=== PATIENT | female | born 1995 | race Caucasian/White ===

== ENCOUNTER 2019-06-22 15:05 | Observation (INO) | payer OTHER, SELFPAY ==
--- NOTE | ~2019-06-22 | US_ITS ---
EXAMINATION: US OB limited DATE: 06/22/2019 16:32 INDICATION: Placental and amniotic fluid index assessment during second trimester TECHNIQUE: Real-time ultrasound of the pelvis was performed. The interpreting radiologist was not pre sent for the study. COMPARISON: None. FINDINGS: There is a single living fetus in vertex presentation. The placenta is posterior and 10.2 c m from the internal cervical os. cardiac activity and movement are noted. heart rat e is 150 beats per minute (bpm). The amniotic fluid index is 15.0 cm which is normal. IMPRESSION: 1. Single living fetus in vertex presentation. 2. Unremarkable placenta. 3. Normal amniotic fluid index. Reviewed, dictated and finalized at location A.
[2019-06-22 15:35] VITALS: BP 144/70; PULSE 107
[2019-06-22 15:46] VITALS: BP 111/55; PULSE 93
[2019-06-22 16:01] VITALS: BP 116/66; PULSE 95
--- NOTE | 2019-06-22 16:16 | PC.NURSE ---
pt transfer to US at 0226
--- NOTE | 2019-06-22 17:29 | OBADM ---
This patient, Deya Campbell, admitted to the OB room OB Post 113 for observation at 1505 Patient/family oriented to hospital policies and general routines including ID bracelet, bed and alarms, visiting hours, pain management, procedures, bathroom and other care routines, personal items, smoking policy, room service/diet, and visiting hours. Patient/Family are encouraged to report perceived risks to care and to ask questions if they do not understand what they are told or what they should do.
--- NOTE | 2019-07-20 20:21 | PM.OBTRLD ---
OB - Triage/Final Diagnosis Visit Information Date of evaluation: 06/22/19 Final Diagnosis (1) Vaginal bleeding in : Code(s): O46.90 - Antepartum hemorrhage, unspecified, unspecified trimester Status: Acute
== END 2019-06-22 17:20 | disposition home or self-care (01) ==
PROVIDERS: Admitting Provider Obstetrics & Gynecology; PCP Family Medicine; Visit Provider Obstetrics & Gynecology
DX: O26.852 Spotting complicating pregnancy, second trimester (principal); O60.02 Preterm labor without delivery, second trimester; Z3A.21 21 weeks gestation of pregnancy
CPT/HCPCS: 76815; G0378; G0379

== ENCOUNTER 2019-08-27 15:53 | Outpatient (CLI) | payer OTHER, SELFPAY ==
[2019-08-27 16:11] VITALS: BP 139/69; PULSE 101
[2019-08-27 16:17] VITALS: BP 125/65; PULSE 95
[2019-08-27 17:03] VITALS: PULSE 102; O2SAT 100
[2019-08-27 17:08] VITALS: PULSE 103; O2SAT 100
[2019-08-27 17:12] VITALS: BP 125/65; PULSE 95
[2019-08-27 17:13] VITALS: PULSE 101; O2SAT 100
== END 2019-08-27 17:15 | disposition home or self-care (01) ==
LOC: ANHOBPP 16:04 → ANHOBOP 17:23 → ANHOBPP 17:24
PROVIDERS: PCP Family Medicine; Visit Provider Obstetrics & Gynecology
DX: O42.90 Premature rupture of membranes, unspecified as to length of time between rupture and onset of labor, unspecified weeks of gestation (principal); Z3A.00 Weeks of gestation of pregnancy not specified
CPT/HCPCS: 59025; 84112; 99199

== ENCOUNTER 2019-09-12 12:40 | Outpatient (CLI) | payer OTHER, SELFPAY ==
[2019-09-12] VITALS (15 sets, daily range): BP systolic 92–138; BP diastolic 57–84; PULSE 94–117; O2SAT 98–100; BMI 60.2
[2019-09-12 13:38] LABS: Basophils Percent Auto 0.3 % (0.2-1.2); Eosinophils Absolute Auto 0.1 K/mm3 (0-0.3); Eosinophils Percent Auto 0.9 % (0-4.4); Hematocrit 30.9 % (37.0-47.0); Hemoglobin 10.3 g/dL (12.0-15.0); Immature Granulocyte Absolute 0.07 K/mm3 (0.00-0.031); Immature Granulocyte Percent A 0.7 % (0-0.5); Lymphocytes Absolute Auto 1.55 K/mm3 (0.9-3.2); Lymphocytes Percent Auto 15.7 % (18.3-44.2); Mean Corpuscular HGB Conc 33.3 g/dl (32-36); Mean Corpuscular Hemoglobin 28.4 pg (26-34); Mean Corpuscular Volume 85.1 fl (80-100); Mean Platelet Volume 9.7 fl (7.4-10.4); Monocytes Absolute Auto 0.6 K/mm3 (0.1-0.6); Monocytes Percent Auto 6.5 % (2.6-8.5); Neutrophils Absolute Auto 7.5 K/mm3 (1.3-6.7); Neutrophils Percent Auto 75.9 % (45.5-73.1); Platelet Count Result 290 k/mm3 (150-375); Red Blood Count 3.63 M/mm3 (4.2-5.4); Red Cell Distribution Width 12.8 % (11.5-14.5); White Blood Count 9.9 K/mm3 (4.5-10.0)
[2019-09-12 13:42] LABS: Add Urine Microscopic? YES; Appearance Urine Clear (Clear); Bacteria Urine Trace /hpf; Bilirubin Urine Negative (Negative); Blood Urine Negative (Negative); Color Urine Yellow (Yellow); Glucose Urine UA Negative (Negative); Ketones Urine Negative (Negative); Leukocyte Esterase Ur Negative LEU/UL (NEGATIVE); Mucus Urine Rare /lpf; Nitrate Urine Negative (Negative); Protein Urine 1+ mg/dL (Negative); RBC Urine 0-2 /hpf (0-2); Specific Grav Ur 1.024 (1.001-1.035); Squamous Epithelial Cell Urine Few /hpf (Few); Urobilinogen Urine Negative mg/dL (<2.0); WBC Urine 0-3 /hpf (0-3)
[2019-09-12 13:45] LABS: Creatinine Urine 126.3 mg/dL; Total Protein Urine Random 10 mg/dL
--- NOTE | 2019-09-12 14:01 | PC.NURSE ---
THIS WORK UP WAS DONE BY [place] FARAH RN, WILL LOG Desirae QUEZADA RNC OUT AND LOG IN MYSELF.
[2019-09-12 14:23] LABS: Alanine Aminotransferase 13 U/L (4-35); Albumin Level 3.7 g/dL (3.5-5.1); Alkaline Phosphatase 108 U/L (38-126); Aspartate Amino Transferase 20 U/L (14-36); Bilirubin,Total 0.2 mg/dL (0.2-1.3); Blood Urea Nitrogen 9 mg/dL (7-17); Calcium 9.3 mg/dL (8.4-10.2); Carbon Dioxide 21 mmol/L (22-30); Chloride 104 mmol/L (98-107); Estimated CRCL calculation 295 ml/min; Estimated Glomerular Filt Rate > 60; Glucose 99 mg/dL (65-105); Potassium 4.2 mmol/L (3.4-5.0); Sodium 133 mmol/L (137-145); Uric Acid 4.1 mg/dL (2.5-7.5)
--- NOTE | 2019-09-12 14:57 | PC.NURSE ---
DISCUSSED PLAN OF CARE WITH DR MULLER. LABS WNL. URINE RATIO WNL. BP'S WNL. WILL GIVE SOME FIORECET FOR H/A SHE HAS COMPLAINED HASN'T GONE AWAY FOR 2 DAYS WHEN SHE GETS HER TOOTH PAIN UNDER CONTROL.
== END 2019-09-12 15:11 | disposition home or self-care (01) ==
LOC: ANHOBOP 12:46 → ANHOBPP 12:49
PROVIDERS: PCP Family Medicine; Visit Provider Obstetrics & Gynecology
DX: O13.9 Gestational [pregnancy-induced] hypertension without significant proteinuria, unspecified trimester (principal); Z3A.00 Weeks of gestation of pregnancy not specified
CPT/HCPCS: 36415; 59025; 80053; 81001; 82570; 84156; 84550; 85025; 99199; A9270

== ENCOUNTER 2019-09-19 16:30 | Outpatient (CLI) | payer OTHER, SELFPAY ==
[2019-09-19 16:47] VITALS: BP 140/82; PULSE 107
[2019-09-19 17:04] LABS: Basophils Percent Auto 0.3 % (0.2-1.2); Eosinophils Absolute Auto 0.1 K/mm3 (0-0.3); Eosinophils Percent Auto 1.1 % (0-4.4); Hemoglobin 10.3 g/dL (12.0-15.0); Immature Granulocyte Absolute 0.04 K/mm3 (0.00-0.031); Immature Granulocyte Percent A 0.4 % (0-0.5); Lymphocytes Absolute Auto 1.77 K/mm3 (0.9-3.2); Lymphocytes Percent Auto 19.2 % (18.3-44.2); Mean Corpuscular HGB Conc 33.2 g/dl (32-36); Mean Corpuscular Volume 84.2 fl (80-100); Mean Platelet Volume 9.4 fl (7.4-10.4); Monocytes Absolute Auto 0.5 K/mm3 (0.1-0.6); Monocytes Percent Auto 5.4 % (2.6-8.5); Neutrophils Absolute Auto 6.8 K/mm3 (1.3-6.7); Neutrophils Percent Auto 73.6 % (45.5-73.1); Platelet Count Result 286 k/mm3 (150-375); Red Blood Count 3.68 M/mm3 (4.2-5.4); Red Cell Distribution Width 12.8 % (11.5-14.5); White Blood Count 9.2 K/mm3 (4.5-10.0)
[2019-09-19 17:17] LABS: Alanine Aminotransferase 12 U/L (4-35); Albumin Level 3.6 g/dL (3.5-5.1); Alkaline Phosphatase 110 U/L (38-126); Aspartate Amino Transferase 18 U/L (14-36); Bilirubin,Total 0.1 mg/dL (0.2-1.3); Blood Urea Nitrogen 9 mg/dL (7-17); Carbon Dioxide 23 mmol/L (22-30); Chloride 105 mmol/L (98-107); Estimated Glomerular Filt Rate > 60; Glucose 120 mg/dL (65-105); Potassium 3.8 mmol/L (3.4-5.0); Sodium 135 mmol/L (137-145); Uric Acid 4.4 mg/dL (2.5-7.5)
[2019-09-19 17:47] VITALS: BP 126/77; PULSE 100
== END 2019-09-19 18:00 | disposition home or self-care (01) ==
LOC: ANHOBOP 16:34 → ANHOBPP 16:37
PROVIDERS: Advanced Practice Midwife; PCP Family Medicine; Visit Provider Obstetrics & Gynecology
DX: O13.9 Gestational [pregnancy-induced] hypertension without significant proteinuria, unspecified trimester (principal); Z3A.00 Weeks of gestation of pregnancy not specified
CPT/HCPCS: 36415; 59025; 80053; 84550; 85025; 99199

== ENCOUNTER 2019-10-04 16:11 | Outpatient (RCR) | payer OTHER, SELFPAY ==
[2019-09-27] MEDS: BETAMETHASONE SOD PHOS/ACETATE 30 MG/5 ML VIAL 12 MG IM (10:37)
[2019-09-28] MEDS: BETAMETHASONE SOD PHOS/ACETATE 30 MG/5 ML VIAL 12 MG IM (10:06)
== END 2019-10-21 07:57 | disposition home or self-care (01) ==
LOC: ANHOBOP 16:11
PROVIDERS: Family Provider Obstetrics & Gynecology; PCP Family Medicine; Visit Provider Obstetrics & Gynecology
DX: O36.8990 Maternal care for other specified fetal problems, unspecified trimester, not applicable or unspecified (principal); Z3A.00 Weeks of gestation of pregnancy not specified
CPT/HCPCS: 59025; 96372; J0702

== ENCOUNTER 2019-10-18 06:25 | Inpatient (IN) | payer OTHER, SELFPAY ==
[2019-10-14 15:40] VITALS: BMI 62.4
[2019-10-18] VITALS (130 sets, daily range): BP systolic 116–165; BP diastolic 51–129; PULSE 85–122; RESP 18–20; TEMP 36.6–36.9; O2SAT 95–100
[2019-10-18 07:06] LABS: Basophils Percent Auto 0.3 % (0.2-1.2); Eosinophils Absolute Auto 0.2 K/mm3 (0-0.3); Eosinophils Percent Auto 1.8 % (0-4.4); Hematocrit 31.4 % (37.0-47.0); Hemoglobin 10.3 g/dL (12.0-15.0); Immature Granulocyte Absolute 0.05 K/mm3 (0.00-0.031); Immature Granulocyte Percent A 0.5 % (0-0.5); Lymphocytes Absolute Auto 1.86 K/mm3 (0.9-3.2); Lymphocytes Percent Auto 20.2 % (18.3-44.2); Mean Corpuscular HGB Conc 32.8 g/dl (32-36); Mean Corpuscular Hemoglobin 27.5 pg (26-34); Mean Corpuscular Volume 83.7 fl (80-100); Monocytes Absolute Auto 0.6 K/mm3 (0.1-0.6); Monocytes Percent Auto 6.9 % (2.6-8.5); Neutrophils Absolute Auto 6.5 K/mm3 (1.3-6.7); Neutrophils Percent Auto 70.3 % (45.5-73.1); Platelet Count Result 305 k/mm3 (150-375); Red Blood Count 3.75 M/mm3 (4.2-5.4); Red Cell Distribution Width 13.2 % (11.5-14.5); White Blood Count 9.2 K/mm3 (4.5-10.0)
[2019-10-18] MEDS: LACTATED RINGERS 1,000 ML 125 ML IV CONT ×3 (07:17→09:52)
[2019-10-18 07:18] LABS: Alanine Aminotransferase 13 U/L (4-35); Albumin Level 3.5 g/dL (3.5-5.1); Alkaline Phosphatase 151 U/L (38-126); Aspartate Amino Transferase 18 U/L (14-36); Bilirubin,Total 0.3 mg/dL (0.2-1.3); Blood Urea Nitrogen 10 mg/dL (7-17); Calcium 9.2 mg/dL (8.4-10.2); Carbon Dioxide 21 mmol/L (22-30); Chloride 104 mmol/L (98-107); Estimated CRCL calculation 237 ml/min; Estimated Glomerular Filt Rate > 60; Glucose 116 mg/dL (65-105); Potassium 4.2 mmol/L (3.4-5.0); Sodium 132 mmol/L (137-145); Uric Acid 4.9 mg/dL (2.5-7.5)
--- NOTE | 2019-10-18 07:25 | WPDHPUPDATE1 ---
History and Physical Update Update Date/Time: 10/18/19 07:25 Term Multip with SROM aat term History and Physical has been reviewed, including an updated exam of the patient. There are NO changes in the patient's condition. Risks, benefits, and alternatives have been discussed and questions answered. Patient agrees to proceed with procedure.
[2019-10-18] MEDS: OXYTOCIN 30 UNITS/NS 500 ML 30 UNITS/500 ML BAG 999 UNITS IV CONT (14:08)
--- NOTE | 2019-10-18 14:11 | PM.OBPRVD ---
OB - Delivery Note Procedure Delivery date: 10/18/19 Intrapartal events: None Induction method: per pitocin protocol Delivery augmentation: pitocin Delivery monitor: external FHT and internal uterine Route of delivery: Laceration description: None Specimen: Yes Anesthesia type: Epidural Disposition: other () Complications: anterior shoulder not easily delivered. barrett and suprapubic pressure anterior shoulder released and fetus delivered <30 sec Baby Date of : 10/18/19 Time of : 14:04 Weeks of gestation at delivery: 37 gender: Female Weight (pounds): 8 Weight (ounces): 6 presentation: vertex position: Left Occiput Anterior cord vessel description: 3 Vessels and Clamped/Cut
--- NOTE | 2019-10-18 17:18 | PC.NURSE ---
Patient transferred to post room #282 per wheelchair from labor and delivery. Support person present. Oriented to unit, room, information board, rooming in, admission packet and security measures. Patient verbalizes understanding.
[2019-10-18] MEDS: IBUPROFEN 600 MG TABLET PO (20:16)
[2019-10-18] MEDS: ACETAMINOPHEN 325 MG TABLET 650 MG PO (22:38)
[2019-10-18] MEDS: ZOLPIDEM TARTRATE 5 MG TABLET PO (22:39)
[2019-10-19] MEDS: IBUPROFEN 600 MG TABLET PO ×3 (05:10→22:34)
[2019-10-19 06:33] LABS: Hematocrit 30.1 % (37.0-47.0); Hemoglobin 9.7 g/dL (12.0-15.0)
--- NOTE | 2019-10-19 07:00 | PC.NURSE ---
PT introductions made and plan of care discussed per post , pain management, bottle feeding, daily care activities. PT verbalized understanding of such care.
[2019-10-19 10:30] VITALS: BP 129/75; PULSE 86; RESP 18; TEMP 36.2; O2SAT 100
--- NOTE | 2019-10-19 10:38 | P.PNOB_ITS ---
OB - PN: Subj Subjective Date/time seen: 10/19/19 10:38 Patient comments: no complaints, pain well controlled and other (Lochia similar to menses) [place] baby status: doing well OB - PN: Obj Data Labs CBC & Chem 7: 10/19/19 05:53 10/18/19 06:59 Labs: Laboratory Results - last 24 hr 10/19/19 05:53 Hgb 9.7 L Hct 30.1 L OB - PN A/P Plan day: 1 (s/p vaginal delivery, doing well) Plan: routine care Time Spent With Patient Time: Total time spent is greater than 50% in coordination of care (as documented) at patient's floor/unit and/or counseling patient: Exam Const: General: no acute distress GI: Inspection: other (Fundus firm and nontender at umbilicus) GI Palp: Yes Soft to palpation and No Tenderness to palpation present (GI) Extrem: General: no edema
[2019-10-19] MEDS: DOCUSATE SODIUM 100 MG CAPSULE PO ×2 (10:54→16:18)
[2019-10-19] MEDS: POLYSACCHARIDE IRON COMPLEX 150 MG CAPSULE PO ×2 (10:54→16:18)
[2019-10-19] MEDS: ACETAMINOPHEN 325 MG TABLET 650 MG PO ×2 (10:54→16:18)
[2019-10-19] MEDS: TETANUS,DIPHTHERIA,AC PERTUSSIS ADULT (0.5 ML) BOOSTRIX IM (10:55)
--- NOTE | 2019-10-19 11:40 | WPDANLDPN2 ---
Anes-Prog Note L&D Date/Time: 10/19/19 11:40 Comfortable throughout: labor and delivery Neuraxial method: epidural Epidural/Spinal procedure site: clean & non-tender Neuro status: Neuro function grossly intact. Cardiovascular status: normal Respiratory status: normal Airway patency: baseline Mental status: baseline Post-Op hydration status: normal Vital Signs: Last Vital Signs Temp 36.6 C 10/18/19 21:30 Pulse 96 10/18/19 21:30 Resp 18 10/18/19 21:30 BP 142/96 H 10/18/19 21:30 Pulse Ox 100 10/18/19 21:30 I/O: Intake & Output 10/18/19 10/19/19 10/19/19 23:59 07:59 15:59 Intake Total 1000 Balance 1000 Post-procedural complaints: none Patient feedback: Patient satisfied with anesthetic care.
--- NOTE | 2019-10-19 14:46 | PCCCNOTE ---
Care Coordination. Pt. referred to for second baby due to SIDS. Per nursing staff, when pt. or FOB spoke of other 's stories were conflicting about if it was SIDS or what happened. FOB reportedly has untreated bipolar. Director Of Marketing [employer] wanted to check with DCFS to make sure no open cases. Pt. reports planning to return home with FOB, Francis Campbell. She reports having necessary baby care items and denies needs for resources. She didn't elaborate when asked about infant passing nor did she want counseling or other resource info. She doesn't plan to have WIC services. Spoke with Susan Coats at [facility] Hotline (Intake ID#[id number]) who reports after reviewing situation with supervisor printing and stamping, that they will take report on situation. She reports previous case was unfounded, but with new baby could be risks, so they'll come out. Notified nursing staff that DCFS will be out to see pt. Pt. also has 7 year old boy at home. Will follow.
--- NOTE | 2019-10-19 19:12 | PC.NURSE ---
DCFS here to see patient.
[2019-10-19 22:15] VITALS: BP 137/73; PULSE 83; RESP 16; TEMP 36.5; O2SAT 100
--- NOTE | 2019-10-20 08:00 | PC.NURSE ---
PT introductions made and plan of care discussed per post , pain management, breast/bottle feeding, photo therapy, keeping eye patches on and not changing diapers under bili lights, daily care activities. PT verbalized understanding of such care
--- NOTE | 2019-10-20 09:52 | P.PNOB_ITS ---
OB - PN: Subj Subjective Date/time seen: 10/20/19 09:52 Patient comments: no complaints, pain well controlled and other (Lochia similar to menses) [place] baby status: doing well OB - PN: Obj Data Labs CBC & Chem 7: 10/19/19 05:53 10/18/19 06:59 OB - PN A/P Plan day: 2 (s/p vaginal delivery, doing well) Plan: routine care, discharge home and other (Follow up in office in 4 weeks) Time Spent With Patient Time: Total time spent is greater than 50% in coordination of care (as documented) at patient's floor/unit and/or counseling patient: Exam Const: General: no acute distress GI: Inspection: other (Fundus firm and nontender below umbilicus) GI Palp: Yes Soft to palpation and No Tenderness to palpation present (GI) Extrem: General: no edema
[2019-10-20 10:30] VITALS: BP 142/71; PULSE 96; RESP 18; TEMP 36.8; O2SAT 98
[2019-10-20] MEDS: DOCUSATE SODIUM 100 MG CAPSULE PO ×2 (12:04→17:30)
[2019-10-20] MEDS: IBUPROFEN 600 MG TABLET PO ×2 (12:05→17:31)
[2019-10-20] MEDS: POLYSACCHARIDE IRON COMPLEX 150 MG CAPSULE PO ×2 (12:05→17:30)
--- NOTE | 2019-10-20 17:30 | PC.NURSE ---
Breast pump provided due to [ineffective feedings and gestational age 37weeks]. Instructions given on breast pump care and usage, pumping schedule, nipple care, and collection and storage of breast milk. Encouraged [id number], breast massage and manual expression to stimulate supply. Pumping log provided and reviewed. Assessed patient for correct flange size, placement and draw. Patient verbalizes and demonstrates understanding of instructions.
[2019-10-21 08:48] LABS: Rapid Plasma Reagin Non-Reactive (NonReactive)
[2019-10-23 09:34] VITALS: BP 134/70; PULSE 75; RESP 20; TEMP 36.6
--- NOTE | 2019-10-24 21:50 | PM.OBDSVD ---
DS: Admitting Diagnosis Admitting Diagnosis Admitting Diagnosis: Encounter for supervision of normal , unspecified, third trimester OB - DS: Summary OB Procedures : None OB Procedures Intrapartum: Spontaneous Vag Delivery OB Procedures: : None Time Spent with Patient Time attestation: Total time spent providing and/or coordinating discharge services: DS: Data Data Completed and Pending Completed studies during hospitalization: Pending at discharge 10/18/19 17:11 Surgical [PTH] Routine Discharge Plan Discharge Consulting providers: Iza Cerda Discharging Clinician: Tawanna To Patient Disposition: Home, Self-Care Activity: pelvic rest and other - see discharge instructions Diet: regular Discharge Instructions: Education: Mom and Baby Guide Given to: Deya Follow-Up: Call your delivering provider's office for an appointment to be seen in: 6 weeks [facility]. Appointment Date/Time: October 22 @ 11:00am What to expect at your follow-up visit: assessment Call [phone] if you are unable to keep your appointment time. BREAST CARE: 1. Wear a snug supportive bra. 2. For engorgement discomfort: Breast Feeding: A. Apply warm moist washcloths B. Express milk as needed to relieve engorgement C. Wear loose clothing Bottle Feeding: A. May apply ice packs 3. For sore nipples: A. Identify correct latch-on B. Apply warm moist washcloths before and after nursing C. Air dry nipples after nursing D. May apply Lansinoh cream to nipples EPISIOTOMY/PERINEAL CARE: 1. Until bleeding stops, use your prashanth bottle after urinating 2. Change your pad frequently throughout the day 3. You may take sitz baths several times a day (fill your bathtub with warm water and soak for 20 minutes.) Do NOT bathe in the water 4. No tub baths until seen by your physician - You may shower ACTIVITY: 1. Rest as much as possible. 2. Do not exercise or lift anything heavier than your baby (such as laundry or other children.) 3. Avoid stairs or driving as much as possible. 4. Do not put anything into the vagina. No douching, tampons, or sexual activity until seen by physician. NOTIFY PHYSICIAN IF YOU HAVE ANY QUESTIONS OR IF ANY OF THE FOLLOWING SYMPTOMS OCCUR: 1. If your episiotomy becomes red, swollen, or more painful than what you have experienced in the hospital. 2. If your vaginal bleeding becomes foul smelling. 3. If your vaginal bleeding becomes more heavy than a period or if your bleeding changes from pink to bright red. However, you may pass an occasional walnut-sized clot once or twice for the first week . 4. If you experience a sharp, shooting pain in you calves. 5. If you discover a hard, reddened area on your breast or if you experience flu-like symptoms. DIET: 1. Eat regular, well-balanced meals. 2. Drink plenty of fluids daily. If , drink to thirst. Patient Instructions: Antibiotic Form, How to Stop Smoking (DC) Stand Alone Forms: General Discharge Information Follow-up/Referrals: Madhu Maldonado MD [Physician] - Discharge Medications: New ibuprofen 600 mg Tablet 600 mg PO Q6H PRN (Reason: Cramping) Qty: 60 RF: 0 Date of admission: 10/18/19 06:25 Primary Care Provider: Marialuisa,Jonelle Robbins Admitting Provider: Madhu Maldonado Discharge Date/Time: 10/20/19 21:45 Attending physician on admission: Tawanna To
== END 2019-10-20 21:45 | disposition home or self-care (01) | DRG 560 ==
LOC: ANHOB2 10-20 21:21 → ANHLDR 10-23 08:40 → ANHOB2 10-23 08:40
PROVIDERS: Advanced Practice Midwife; Admitting Provider Obstetrics & Gynecology; PCP Family Medicine; Visit Provider Obstetrics & Gynecology
DX: O36.8330 Maternal care for abnormalities of the fetal heart rate or rhythm, third trimester, not applicable or unspecified (principal); Z37.0 Single live birth; Z3A.37 37 weeks gestation of pregnancy
CPT/HCPCS: 36415; 80053; 84550; 85014; 85018; 85025; 86592; 86850; 86900; 86901; 88307; 90715; A9270; J2590; J2795; J7120

== ENCOUNTER 2020-11-27 17:04 | Outpatient (CLI) | payer OTHER, SELFPAY ==
--- NOTE | ~2020-11-27 | US_ITS ---
US right upper quadrant DATE: 11/27/2020 17:34 INDICATION: Right upper quadrant abdominal pain for 2 months TECHNIQUE: Real-time imaging and Doppler analysis of liver, pancreas, gallbladder areas COMPARISON: 12/18/2018 CT abdomen pelvis FINDINGS: There is hepatic steatosis. There is suboptimal penetration of the hepatic parenchyma. Mu ltiple hepatic masses are noted, measuring up to [address] or MR examination would be helpful for mor e definitive evaluation. Normal hepatopedal portal venous flow direction. No gallstones are evident. Normal common bile duct caliber of 5.2 mm. IMPRESSION: Multiple hepatic masses; CT or MR abdomen is recommended Hepatic steatosis Reviewed, dictated and finalized at Location A. Reviewed, dictated and finalized at location A.
== END 2020-11-27 17:05 | disposition home or self-care (01) ==
LOC: ANHIMG 17:05
PROVIDERS: PCP Nurse Practitioner Family; Visit Provider Nurse Practitioner Family
DX: R93.89 Abnormal findings on diagnostic imaging of other specified body structures (principal); R16.0 Hepatomegaly, not elsewhere classified; K76.0 Fatty (change of) liver, not elsewhere classified
CPT/HCPCS: 76705

== ENCOUNTER → 2021-04-09 03:30 | Outpatient (CLI) | payer OTHER, SELFPAY ==
[2021-04-09 22:11] LABS: SARS-CoV-2 RNA PCR Negative
== END ==
PROVIDERS: PCP Nurse Practitioner Family; Visit Provider Family Medicine
DX: R07.0 Pain in throat (principal); Z20.822 Contact with and (suspected) exposure to COVID-19
CPT/HCPCS: C9803; U0003; U0005

== ENCOUNTER 2022-03-22 17:08 | Outpatient (CLI) | payer OTHER, SELFPAY ==
--- NOTE | ~2022-03-22 | US_ITS ---
EXAMINATION: US retroperitoneal duplex ltd DATE: 03/22/2022 18:14 INDICATION: Secondary hypertension TECHNIQUE: Multiple grayscale, color Doppler, and pulsed Doppler images of the kidneys and renal josé sherri were obtained. COMPARISON: CT dated diagnosis 12/18/18 FINDINGS: Right kidney measures 12.4 x 6.8 x 7.2 cm with no hydronephrosis. The right renal artery peak systoli c velocity is 195 cm/s in the proximal segment, 188 cm/s in the mid segment, and 214 cm/s in the dist al segment. The left kidney measures 13.0 x 6.1 x 7.2 cm with no hydronephrosis. The left renal arter y peak systolic velocity is 204 cm/s in the proximal segment, 194 cm/s in the mid segment, and 193 cm /s in the distal segment. IMPRESSION: 1. Elevated peak systolic velocities in the bilateral renal arteries consistent with a >50-60% steno sis. Reviewed, dictated and finalized at location A. SITE ENGINEER IMPRESSION: 1. Elevated peak systolic velocities in the bilateral renal arteries consisten t with a >50-60% stenosis.
--- NOTE | ~2022-03-22 | US_ITS ---
US pelvic complete w TV DATE: 03/22/2022 17:51 INDICATION: Increased BMI. Question of polycystic ovary syndrome TECHNIQUE: Real-time imaging via transabdominal and transvaginal approaches COMPARISON: None FINDINGS: The uterus measures approximately 9 cm height, 4.5 cm AP dimension. The central endometrial echo complex measures approximately 4 mm AP dimension. An IUD is noted within the endometrial cavity in expected position. The right ovary measures 5.5 x 4 x 4.1 cm. There is a 4 cm complicated cyst within the right ovary me asuring The left ovary measures 2.8 x 1.7 x 3.2 cm. There is vascular flow to the ovaries. Otherwise no pelvic mass lesion or abnormal free pelvic fluid collection. IMPRESSION: IUD within uterus 4 cm complicated right ovarian cyst Reviewed, dictated and finalized at Location A. Reviewed, dictated and finalized at location A. R PIPE INSTALLER
== END 2022-03-22 17:09 | disposition home or self-care (01) ==
LOC: ANHIMG 17:11
PROVIDERS: PCP Family Medicine
DX: I15.9 Secondary hypertension, unspecified (principal); N83.201 Unspecified ovarian cyst, right side; Z97.5 Presence of (intrauterine) contraceptive device
CPT/HCPCS: 76830; 76856; 93976

== ENCOUNTER 2022-03-28 16:45 | Emergency (ER) | payer OTHER, SELFPAY ==
[2022-03-28 16:52] VITALS: BP 145/68; PULSE 94; RESP 20; TEMP 36.7; O2SAT 100
--- NOTE | 2022-03-28 18:04 | ED.URI ---
HPI - URI/Sore Throat General Chief Complaint: Upper Respiratory Infection Stated Complaint: cold flu short of breath Time Seen by Provider: 03/28/22 18:04 Source: patient, family, RN notes reviewed and old records reviewed Mode of arrival: ambulatory Limitations: no limitations History of Present Illness HPI Narrative: 26 year old female presents to [facility] with complaints of chest hurting to breath with cough, bilateral ear pain and some shortness of breath, and hoarseness for the past 2 days.Patient denies any known fevers, chills or sweats, denies any body aches or headaches. Patient has been taking NyQuil cold and flu and also some Ibuprofen for her symptoms. Patient has even nonlabored respirations with no tachypnea or accessory muscle use SAO2 100 % on room air. MD elicited complaint: cough and other (shortness of breathe, hoarseness, ear pain) Onset (ago): day(s) (2) Able to tolerate fluids by mouth: Yes Treatments prior to arrival: ibuprofen and cold medicine Related Data Home Medications Medication Instructions Recorded Confirmed amlodipine 10 mg tablet 10 mg PO DAILY 03/28/22 03/28/22 escitalopram oxalate 10 mg tablet 10 mg PO DAILY 03/28/22 03/28/22 gabapentin 100 mg capsule 100 mg PO TID 03/28/22 03/28/22 losartan 100 mg tablet 100 mg PO DAILY 03/28/22 03/28/22 spironolactone 25 mg tablet 25 mg PO DAILY 03/28/22 03/28/22 zonisamide 25 mg capsule 25 mg PO DAILY 03/28/22 03/28/22 Allergies Allergy/AdvReac Type Severity Reaction Status Date / Time cephalexin Allergy Mild Rash Verified 10/18/19 06:54 labetalol Allergy Unknown Swelling Verified 09/01/18 10:48 levofloxacin Allergy Hives Verified 03/28/22 17:14 nifedipine Allergy Rash Verified 03/28/22 17:15 Review of Systems Review of Systems: CONSTITUTIONAL: Denies malaise, chills, sweats, or fever. EYES: Denies visual changes, redness, or discharge. ENT: Reports rhinorrhea, congestion, sinus pain, bilateral otalgia no sore throat.hoarseness reported CARDIOVASCULAR: Denies chest pain, palpitations, or edema. RESPIRATORY: Reports cough.?Reports dyspnea. GASTROINTESTINAL: Denies abdominal pain, nausea, vomiting, diarrhea SKIN: Denies rash or itching. MUSCULOSKELETAL: Denies myalgia. NEUROLOGIC: Denies headache. All systems reviewed & are unremarkable except as noted in HPI and below PMFSH Past Medical History Medical History (Updated 04/05/22 @ 08:36 by Nicki Ford NP) Diverticulitis Elevated cholesterol GERD (gastroesophageal reflux disease) Hair loss Herniated disc Hypertension Surgical History Surgical History (Updated 04/05/22 @ 08:28 by Nicki Ford NP) H/O eye surgery History of placement of ear tubes History of tonsillectomy Family History Family History (Updated 10/14/19 @ 15:46 by Yadira Puri RN) Father Heart disease COPD (chronic obstructive pulmonary disease) Asthma Diabetes mellitus Colon cancer Hypertension Mother COPD (chronic obstructive pulmonary disease) Skin cancer Fibromyalgia Hypertension Son Antibody deficiency syndrome Social History Social History Smoking status: Never smoker Second hand tobacco smoke exposure: Yes Substance use: never Gender identity (if verbalized by the patient): Female Sexual Orientation (if Verbalized by the Patient): Straight or Heterosexual Spiritual care concerns: No Comments At time of signature, agree with nursing past medical, surgical, social and family history. There is no relevant family history pertinent to the presenting complaint Exam Narrative: GENERAL: Well-appearing, well-nourished, and in no acute distress. HEAD: Normocephalic EYES: PERRLA, conjunctivae clear ENT: Nares clear, turbinates edematous and erythematous, clear discharge. Mucous membranes moist. TM pearly cole with dull light reflex bilaterally; no tragal tenderness. Oropharynx erythematous without lesions. Tonsils not present and without ex
== END 2022-03-28 18:30 | disposition home or self-care (01) ==
PROVIDERS: Emergency Provider Registered Nurse; PCP Nurse Practitioner Family
DX: J06.9 Acute upper respiratory infection, unspecified (principal); E78.00 Pure hypercholesterolemia, unspecified; I10 Essential (primary) hypertension; K21.9 Gastro-esophageal reflux disease without esophagitis
CPT/HCPCS: 99213; G0463

== ENCOUNTER 2022-05-25 14:54 | Outpatient (CLI) | payer OTHER, SELFPAY ==
--- NOTE | ~2022-05-25 | MR_ITS ---
EXAMINATION: MR brain/brain stem wo/w con DATE: 05/25/2022 15:38 INDICATION: Unspecified papilledema. TECHNIQUE: Magnetic resonance imaging (MRI) of the brain and brainstem was performed without and with 20 mL Multihance intravenous contrast. Sequences included sagittal and axial T1-weighted SE, axial d iffusion-weighted FS SE, axial T2*-weighted GRE, axial 3D SWAN, axial T2-weighted FLAIR, and axial T2 -weighted FSE. Postcontrast axial and coronal T1-weighted SE was obtained. Apparent diffusion coeffic ient (ADC) maps were created. COMPARISON: None. FINDINGS: There are no areas of restricted diffusion to suggest acute infarction. No intracranial hemorrhage or abnormal intracranial mass lesion. There are no intraparenchymal signal abnormalities seen on the ot her pulse sequences. The ventricles are symmetric and normal in size. The basal cisterns are patent. There are no abnormal extra-axial fluid collections. Flow voids are seen in the cerebral arteries on the T2-weighted sequences consistent with their expected patency. Changes of left intraocular lens re placement. Mild mucosal thickening the bilateral ethmoid sinuses. Visualized orbits and soft tissues are unremarkable. There are no areas of abnormal enhancement on the post contrast images. IMPRESSION: 1. Normal brain. No acute intracranial process or abnormally enhancing lesions. Reviewed, dictated and finalized at location [facility]
== END 2022-05-25 14:55 | disposition home or self-care (01) ==
LOC: ANHIMG 14:55
PROVIDERS: PCP Family Medicine; Visit Provider Specialist
DX: H47.10 Unspecified papilledema (principal)
CPT/HCPCS: 70553; A9577

== ENCOUNTER 2022-11-29 12:35 | Emergency (ER) | payer OTHER, SELFPAY ==
[2022-11-29 12:45] VITALS: BP 133/71; PULSE 70; RESP 16; TEMP 36.2; O2SAT 100
[2022-11-29 12:54] VITALS: BP 133/71; PULSE 70; RESP 16; TEMP 36.2; O2SAT 100
--- NOTE | 2022-11-29 13:09 | ED.URI ---
HPI - URI/Sore Throat General Chief Complaint: Upper Respiratory Infection Stated Complaint: sore throat/cough/diarrhea History of Present Illness HPI Narrative: Pt is a 27 y/o female, presents to with 4 day hx of rhinorrhea, cough, congestion and wheezing. she denies fevers or chills. her smaller child recently had croup and she feels she may have the same virus. She is taking OTC cough cold meds with minimal relief. She denies any other associated symptoms or modifying factors. She denies Related Data Home Medications Medication Instructions Recorded Confirmed amlodipine 10 mg tablet 10 mg PO DAILY 03/28/22 03/28/22 escitalopram oxalate 10 mg tablet 10 mg PO DAILY 03/28/22 03/28/22 gabapentin 100 mg capsule 100 mg PO TID 03/28/22 03/28/22 losartan 100 mg tablet 100 mg PO DAILY 03/28/22 03/28/22 spironolactone 25 mg tablet 25 mg PO DAILY 03/28/22 03/28/22 zonisamide 25 mg capsule 25 mg PO DAILY 03/28/22 03/28/22 aspirin 81 mg chewable tablet 11/29/22 dulaglutide 1.5 mg/0.5 mL mg subcut 11/29/22 subcutaneous pen [facility]) duloxetine 20 mg capsule,delayed mg PO 11/29/22 release furosemide 40 mg tablet mg 11/29/22 metoprolol tartrate 50 mg tablet mg 11/29/22 rimegepant 75 mg disintegrating mg 11/29/22 tablet (Nurtec ODT) Allergies Allergy/AdvReac Type Severity Reaction Status Date / Time cephalexin Allergy Mild Rash Verified 10/18/19 06:54 labetalol Allergy Unknown Swelling Verified 09/01/18 10:48 levofloxacin Allergy Hives Verified 03/28/22 17:14 nifedipine Allergy Rash Verified 03/28/22 17:15 Review of Systems Constitutional: Constitutional: Reports as per HPI ENT: Reports as per HPI Respiratory: Respiratory: Reports as per HPI [facility] Past Medical History Medical History Diverticulitis Elevated cholesterol GERD (gastroesophageal reflux disease) Hair loss Herniated disc Hypertension Surgical History Surgical History (Updated 04/05/22 @ 08:28 by Nicki Ford NP) H/O eye surgery History of placement of ear tubes History of tonsillectomy Family History Family History (Updated 10/14/19 @ 15:46 by Yadira Puri RN) Father Heart disease COPD (chronic obstructive pulmonary disease) Asthma Diabetes mellitus Colon cancer Hypertension Mother COPD (chronic obstructive pulmonary disease) Skin cancer Fibromyalgia Hypertension Son Antibody deficiency syndrome Social History Social History Smoking status: Never smoker Second hand tobacco smoke exposure: Yes Substance use: never Gender identity (if verbalized by the patient): Female Sexual Orientation (if Verbalized by the Patient): Straight or Heterosexual Spiritual care concerns: No Exam Const: General: healthy appearing, no acute distress and alert Nutritional Appearance: obese Orientation/consciousness: patient oriented x3 Limitations: no limitations HENMT: Head: normal to inspection Ears: external ears normal and TM abnormal (TM's are effused) Face/Nose/Sinus: Normal external nose present Face and sinus: normal facial exam and sinuses nontender Mouth: Yes Normal oral and palatal mucosa present, Yes lip normal and Yes moist mucous membranes Throat: posterior oropharynx normal and uvula midline Eyes: Conjunctivae: conjunctivae normal EOM: EOMs intact bilaterally Neck: Neck: normal visual inspection, no lymphadenopathy and no meningeal signs Chest: Chest palpation & inspection: normal inspection of the chest Resp: Effort & Inspection: normal respiratory effort Auscultation: clear to auscultation bilaterally and wheezes (end expiratory wheeze noted intermittently in upper lung molina. ) Cardio: Rate: regular rate Rhythm: regular rhythm Skin: General skin exam: normal color Rashes: no rashes Neuro: General: patient oriented x3, moves all extremities, no meningeal signs, no focal motor deficits and C
== END 2022-11-29 13:39 | disposition home or self-care (01) ==
PROVIDERS: Emergency Provider Nurse Practitioner Family; PCP Nurse Practitioner Family
DX: J40 Bronchitis, not specified as acute or chronic (principal); B34.9 Viral infection, unspecified; E78.00 Pure hypercholesterolemia, unspecified; K21.9 Gastro-esophageal reflux disease without esophagitis; I10 Essential (primary) hypertension
CPT/HCPCS: 99213; G0463

== ENCOUNTER 2023-08-03 12:30 | Outpatient (CLI) | payer OTHER, SELFPAY ==
[2023-08-03 19:04] LABS: Basophils Absolute Auto 0.1 K/mm3 (0.0-0.1); Basophils Percent Auto 0.6 % (0.2-1.2); Eosinophils Absolute Auto 0.1 K/mm3 (0-0.3); Eosinophils Percent Auto 1.6 % (0-4.4); Hematocrit 38.8 % (37.0-47.0); Hemoglobin 12.5 g/dL (12.0-15.0); Immature Granulocyte Absolute 0.04 K/mm3 (0.00-0.031); Immature Granulocyte Percent A 0.4 % (0-0.5); Immature Reticulocyte Fraction 22.8 % (3.0-15.9); Lymphocytes Absolute Auto 2.28 K/mm3 (0.9-3.2); Lymphocytes Percent Auto 25.4 % (18.3-44.2); Mean Corpuscular HGB Conc 32.2 g/dl (32-36); Mean Corpuscular Hemoglobin 26.8 pg (26-34); Mean Corpuscular Volume 83.1 fl (80-100); Mean Platelet Volume 9.9 fl (7.4-10.4); Monocytes Absolute Auto 0.6 K/mm3 (0.1-0.6); Monocytes Percent Auto 6.1 % (2.6-8.5); Neutrophils Absolute Auto 5.9 K/mm3 (1.3-6.7); Neutrophils Percent Auto 65.9 % (45.5-73.1); Platelet Count Result 336 k/mm3 (150-375); Red Blood Count 4.67 M/mm3 (4.2-5.4); Red Cell Distribution Width 14.1 % (11.5-14.5); Reticulocyte Percent 1.99 % (0.7-4.3); Reticulocytes Absolute 0.09 10^6/uL (0.02-0.10)
[2023-08-03 19:10] LABS: Alanine Aminotransferase 29 U/L (6-35); Albumin Level 4.7 g/dL (3.5-5.1); Alkaline Phosphatase 68 U/L (38-126); Anion Gap 9 mmol/L (4-12); Aspartate Amino Transferase 34 U/L (14-36); Bilirubin,Total 0.8 mg/dL (0.2-1.3); Blood Urea Nitrogen 10 mg/dL (7-17); Calcium 9.9 mg/dL (8.4-10.2); Carbon Dioxide 29 mmol/L (22-30); Chloride 100 mmol/L (98-107); Cholesterol 189 mg/dL (0-200); Estimated Glomerular Filt Rate > 60; Glucose 104 mg/dL (65-110); HDL Direct 51 mg/dL; Potassium 3.9 mmol/L (3.4-5.0); Sodium 138 mmol/L (137-145); Triglycerides 223 mg/dL (<150)
[2023-08-03 19:21] LABS: LDL Cholesterol Direct 115 mg/dL
[2023-08-03 19:41] LABS: Thyroid Stimulating Hormone 0.909 uIU/mL (0.465-4.680)
[2023-08-03 20:16] LABS: Iron 98 ug/dL (37-170)
[2023-08-03 20:23] LABS: Vitamin D 25 Hydroxy 20.6 ng/mL
[2023-08-03 20:27] LABS: Percent Iron Saturation 23 % (20-50)
== END 2023-08-03 12:31 | disposition home or self-care (01) ==
LOC: ANHGOSHLAB 12:32
PROVIDERS: PCP Nurse Practitioner; Visit Provider Nurse Practitioner
DX: D64.9 Anemia, unspecified (principal); I10 Essential (primary) hypertension; E55.9 Vitamin D deficiency, unspecified
CPT/HCPCS: 36415; 80053; 80061; 82306; 82607; 82728; 83540; 83550; 84443; 85025; 85046

== ENCOUNTER 2023-11-05 14:23 | Emergency (ER) | payer OTHER, SELFPAY ==
[2023-11-05 14:27] VITALS: BP 167/72; PULSE 90; RESP 18; TEMP 36.6; O2SAT 100
[2023-11-05 14:33] VITALS: BP 167/72; PULSE 90; RESP 18; TEMP 36.6; O2SAT 100
--- NOTE | 2023-11-05 15:14 | ED.GENADULT ---
HPI - General Adult General Chief complaint: Skin/Abscess/Foreign Body Stated complaint: Skin Problem Source: patient Mode of arrival: ambulatory Limitations: no limitations History of Present Illness HPI narrative: Patient presents for evaluation of painful, pruritic and erythematous areas to her bilateral upper extremities. Symptom onset yesterday. No new lotions, soaps, detergents, topical products, medications or food. She states she had similar symptoms in the past and was told she may have cellulitis. She denies any difficulty breathing or swallowing. She tried hydrocortisone cream for her symptoms. Related Data Home Medications Medication Instructions Recorded Confirmed amlodipine 10 mg tablet 10 mg PO DAILY 03/28/22 09/26/23 gabapentin 100 mg capsule 100 mg PO TID 03/28/22 09/26/23 losartan 100 mg tablet 100 mg PO DAILY 03/28/22 09/26/23 spironolactone 25 mg tablet 25 mg PO DAILY 03/28/22 09/26/23 aspirin 81 mg chewable tablet 11/29/22 09/26/23 duloxetine 20 mg capsule,delayed 20 mg PO BID 08/03/23 09/26/23 release furosemide 40 mg tablet 40 mg PO DAILY 08/03/23 09/26/23 metoprolol tartrate 50 mg tablet 50 mg PO BID 08/03/23 09/26/23 rimegepant 75 mg disintegrating 75 mg PO PRN 08/03/23 09/26/23 tablet (Nurtec ODT) Adults Multivitamin 11/05/23 Iron 11/05/23 Iud 11/05/23 Allergies Allergy/AdvReac Type Severity Reaction Status Date / Time cephalexin Allergy Mild Rash Verified 11/05/23 14:31 labetalol Allergy Unknown Swelling Verified 11/05/23 14:31 levofloxacin Allergy Hives Verified 11/05/23 14:31 nifedipine Allergy Rash Verified 11/05/23 14:31 Review of Systems Review of Systems: CONSTITUTIONAL: Denies fever, chills, or sweats. EYES: Denies visual changes, redness, or discharge. ENT: Denies rhinorrhea, congestion, sore throat, or otalgia. CARDIOVASCULAR: Denies chest pain, palpitations, or edema. RESPIRATORY: Denies cough or dyspnea. GASTROINTESTINAL: Denies abdominal pain, nausea, vomiting, or diarrhea. GENITOURINARY: Denies dysuria or hematuria. SKIN: Reports painful erythematous, pruritic areas to her BUE MUSCULOSKELETAL: Denies back pain, joint pain, or myalgia. NEUROLOGIC: Denies headache, numbness, dizziness, or weakness. PSYCHIATRIC: Denies anxiety or depression. [facility] Past Medical History Medical History Acute asthma Anemia Anxiety Diverticulitis Elevated cholesterol GERD (gastroesophageal reflux disease) Hair loss Herniated disc Hypertension Migraine Surgical History Surgical History H/O eye surgery History of placement of ear tubes History of tonsillectomy Family History Family History Father Heart disease COPD (chronic obstructive pulmonary disease) Asthma Diabetes mellitus Colon cancer Hypertension Depression Mother COPD (chronic obstructive pulmonary disease) Skin cancer Fibromyalgia Hypertension Depression Heart disease Son Antibody deficiency syndrome Asthma Hypertension Depression Grandparent Asthma Diabetes mellitus Hypertension Heart disease Social History Social History Smoking status: Never smoker Second hand tobacco smoke exposure: Yes Alcohol intake: never Substance use: never Substance use type: does not use Do You Feel Safe in your Home?: Yes Lack of Transportation: No Lack of Food: Never True Current Housing: I Have Housing Concerned About Future Housing: No Difficulty Paying Gas/Electric Bills: No Difficulty Paying for Meds: YES Currently Unemployed: No Education: Associate Degree Difficulty w/ Childcare or Family Care: No Living arrangements: with family Occupation/Education: occupation Gender identity (if verbalized by the patient): Fe
== END 2023-11-05 15:00 | disposition home or self-care (01) ==
PROVIDERS: Emergency Provider Nurse Practitioner; PCP Internal Medicine
DX: T78.40XA Allergy, unspecified, initial encounter (principal); X58.XXXA Exposure to other specified factors, initial encounter; J45.909 Unspecified asthma, uncomplicated; E78.00 Pure hypercholesterolemia, unspecified; K21.9 Gastro-esophageal reflux disease without esophagitis; I10 Essential (primary) hypertension; Z79.82 Long term (current) use of aspirin
CPT/HCPCS: 99213; G0463

== ENCOUNTER 2024-04-08 10:04 | Emergency (ER) | payer OTHER, SELFPAY ==
[2024-04-08 10:29] VITALS: BP 150/88; PULSE 81; RESP 18; TEMP 36.5; O2SAT 100
--- NOTE | 2024-04-08 11:42 | ED.URI ---
HPI - URI/Sore Throat General Chief Complaint: Upper Respiratory Infection Stated Complaint: body aches, weakness, cough, nausea, ST Time Seen by Provider: 04/08/24 11:42 Focused HPI: This is a 28 year old female that presents to the ER for cold symptoms. Present since yesterday. Reports cough, congestion, myalgias, headache. GENERAL: Well-appearing, well-nourished, and in no acute distress. HEAD: Normocephalic, atraumatic. CHEST: Clear to auscultation. ?No respiratory distress. HEART: Regular rate and rhythm.? NEURO: ?Alert and oriented x3. Patient screened in triage and initial orders placed.? ?Additional care and disposition to be based upon?diagnostic testing and treatment. Related Data Home Medications ?Medication ?Instructions ?Recorded ?Confirmed ?Last Taken ?Type amlodipine 10 mg tablet 10 mg PO DAILY 03/28/22 11/14/23 Unknown History gabapentin 100 mg capsule 100 mg PO TID 03/28/22 11/14/23 Unknown History losartan 100 mg tablet 100 mg PO DAILY 03/28/22 11/14/23 Unknown History spironolactone 25 mg tablet 25 mg PO DAILY 03/28/22 11/14/23 Unknown History aspirin 81 mg chewable tablet 11/29/22 11/14/23 Unknown History duloxetine 20 mg capsule,delayed 20 mg PO BID 08/03/23 11/14/23 Unknown History release furosemide 40 mg tablet 40 mg PO DAILY 08/03/23 11/14/23 Unknown History metoprolol tartrate 50 mg tablet 50 mg PO BID 08/03/23 11/14/23 Unknown History rimegepant 75 mg disintegrating 75 mg PO PRN 08/03/23 11/14/23 Unknown History tablet (Nurtec ODT) Adults Multivitamin 11/05/23 11/14/23 Unknown History Iron 11/05/23 11/14/23 Unknown History Iud 11/05/23 11/14/23 Unknown History Allergies Allergy/AdvReac Type Severity Reaction Status Date / Time cephalexin Allergy Mild Rash Verified 12/19/23 15:12 labetalol Allergy Unknown Swelling Verified 12/19/23 15:12 levofloxacin Allergy Hives Verified 12/19/23 15:12 nifedipine Allergy Rash Verified 12/19/23 15:12 Review of Systems Review of Systems: CONSTITUTIONAL: Reports fever ENT: Reports rhinorrhea, congestion RESPIRATORY: Reports cough MUSCULOSKELETAL: Reports myalgia. All systems reviewed & are unremarkable except as noted in HPI and below PMFSH Past Medical History Medical History Acute asthma Anemia Anxiety Diverticulitis Elevated cholesterol GERD (gastroesophageal reflux disease) Hair loss Herniated disc Hypertension Migraine Surgical History Surgical History H/O eye surgery History of placement of ear tubes History of tonsillectomy Family History Family History Father Heart disease COPD (chronic obstructive pulmonary disease) Asthma Diabetes mellitus Colon cancer Hypertension Depression Mother COPD (chronic obstructive pulmonary disease) Skin cancer Fibromyalgia Hypertension Depression Heart disease Son Antibody deficiency syndrome Asthma Hypertension Depression Grandparent Asthma Diabetes mellitus Hypertension Heart disease Social History Social History Smoking status: Never smoker Second hand tobacco smoke exposure: Yes Alcohol intake: never Substance use: never Substance use type: does not use Do You Feel Safe in your Home?: Yes Lack of Transportation: No Lack of Food: Never True Current Housing: I Have Housing Concerned About Future Housing: No Difficulty Paying Gas/Electric Bills: No Difficulty Paying for Meds: YES Currently Unemployed: No Education: Associate Degree Difficulty w/ Childcare or Family Care: No Living arrangements: with family Occupation/Education: occupation Gender identity (if verbalized by the patient): Female Sexual Orientation (if Verbalized by the Patient): Straight or Heterosexual Spiritual care concerns: No Agree to blood products: Yes Exam Narrative: GENERAL: Well-appearing, well-nourished, and in no acute distress. HEAD: Normocephalic, atraumatic. EYES: EOMI. ENT: Nares clear, no rhinorrhea or epistaxis. Mucous membranes moist. Oropharynx without tonsillar hypertrophy exudate or other lesions. Bilateral TMs pearly cole non-bulging NECK: Supple. No adenopathy or masses. CHEST: Clear to auscultation. No respiratory distress. No wheezes rales or rhonchi HEART: Regular rate and rhythm. No murmur heard. Normal peripheral pulses. EXTREMITIES: Normal range of motion. No edema. SKIN: Warm, dry, no rash. NEURO: No focal deficits. Alert and oriented x3. PSYCH: Normal mood and affect Course Course Emergency Course: Patient updated on workup and agrees with plan of care Vital Signs Vital signs: Vital Signs Temperature 97.7 F 04/08/24 10:29 Pulse Rate 81 04/08/24 10:29 Respiratory Rate 18 04/08/24 10:29 Blood Pressure 150/88 H 04/08/24 10:29 Pulse Oximetry 100 04/08/24 10:29 Oxygen Delivery Room Air 04/08/24 10:29 Temperature 97.7 F 04/08/24 10:29 Pulse Rate 81 04/08/24 10:29 Respiratory Rate 18 04/08/24 10:29 Blood Pressure 150/88 H 04/08/24 10:29 Pulse Oximetry 100 04/08/24 10:29 Oxygen Delivery Room Air 04/08/24 10:29 MDM - URI/Sore Throat MDM Narrative Medical decision making narrative: Patient presents to the emergency department for cold symptoms present since yesterday. She is afebrile and nontoxic appearing. Lungs are clear on exam. Oxygen saturation is 100% on room air. Patient is influenza A positive. Will be started on Tamiflu. Instructed on other continued symptomatic care viral infection. She is to follow up with primary provider. She was given warnings to return to the ER Differential Diagnosis Differential diagnosis: Likely upper respiratory infection, sinusitis, viral infection, bronchitis and influenza Lab Data Attestation: I reviewed the patient's lab results. Labs: Lab Results 04/08/24 Range/Units 11:19 Influenza A (RT-PCR) Positive A (Negative) Influenza B (RT-PCR) Negative (Negative) RSV (RT-PCR) Negative (Negative) SARS-CoV-2 RNA (RT-PCR) Negative (Negative) Group A Strep (PCR) Not detected (Negative) Critical Care Time Critical Care Time Critical Care Time: No Discharge Plan Discharge Clinical Impression: Influenza A Patient Disposition: Home, Self-Care Condition: Stable Instructions: Influenza (ED) Additional Instructions: Return to the emergency department for worsening symptoms, or any other concerns Remain well-hydrated, get plenty of rest. Take Tylenol or Motrin [id number] for pain as needed. Flonase for nasal congestion. Zyrtec for runny nose. Lozenges or Chloraseptic spray for sore throat. Follow up with primary care doctor Patient Language: Pakistani Prescriptions: New oseltamivir 75 mg capsule 75 mg PO Q12H 5 Days Qty: 10 0RF No Action spironolactone 25 mg tablet 25 mg PO DAILY gabapentin 100 mg capsule 100 mg PO TID losartan 100 mg tablet 100 mg PO DAILY amlodipine 10 mg tablet 10 mg PO DAILY aspirin 81 mg tablet,chewable metoprolol tartrate 50 mg tablet 50 mg PO BID duloxetine 20 mg capsule,delayed release(DR/EC) 20 mg PO BID furosemide 40 mg tablet 40 mg PO DAILY Nurtec ODT 75 mg tablet,disintegrating 75 mg PO PRN Iud Adults Multivitamin Iron diphenhydramine HCl [Benadryl] 25 mg capsule 25 - 50 mg PO Q4-6H PRN (Reason: allergic reaction) Qty: 30 0RF cholecalciferol (vitamin D3) 1,250 mcg (50,000 unit) capsule 1,250 mcg PO WEEKLY Qty: 12 3RF phentermine 37.5 mg capsule 37.5 mg PO DAILY Qty: 30 2RF Rx Instructions: must administer 30 minutes before or 1-2 hours after breakfast Follow-up/Referrals: Vipin Bedoya, [Primary Care Provider] -
[2024-04-08 11:54] LABS: Strep Group A RT-PCR NOT DETECTED (Negative)
[2024-04-08 12:04] LABS: Influenza A QL RT-PCR Positive (Negative); Influenza B QL RT-PCR Negative (Negative); RSV RNA, RT-PCR Negative (Negative); SARS-CoV-2 RNA PCR Negative (Negative)
[2024-04-08 12:48] VITALS: O2SAT 98
--- OUTSIDE RECORDS SUMMARY | 2024-04-14 17:43 | XMS_ITS | Encounter Summary ---
Author Organization [facility] Address [address] [place] [address] Care Team Providers Care Sand Blaster Name Role Phone Jonelle Elam MD Primary Care Provider [phone] Manju Rainey DO Unavailable [phone] Skylar Canales PA-C Unavailable [phone] Reason for Visit * Reason Comments Follow-up Encounter Details Date Type Department Care Team (Late st Contact Info) Description 07/20/2022 10:20 AM CDT Office Visit [facility] Weight Management Services [address] [facility] [address] [place] [address] Angela Muñoz [place] [address] [facility] [address] [place] [address] NAFLD (nonalcoholic fatty liver disease) (Primary Dx); Class 3 severe obesity due to excess calories with serious comorbidity and body mass index (BMI) of 60.0 to 69.9 in adult (HCC); Prediabetes; Essential hypertension Social History Tobacco Use Types Packs/Day Years Used Date Smoking Tobacco: Never Smokeless Tobacco: Never Alcohol Use Standard Drinks/Week Comments Not Currently 0 (1 standard drink = 0.6 oz pur e alcohol) gets sick when drinks Education Answer Date Recorded What is the highest level of school you have completed or the highest degree you have received? Associate degree: academic program 11/03/2021 Sex and Gender Information Value Date Recorded Sex Assigned at Not on file Gender Identity Not on file Sexual Orientation Not on file COVID-19 Exposure Response Date Recorded In the last 10 days, have yo u been in contact with someone who was confirmed or suspected to have Coronavirus/COVID-19? No / Unsure 07/20/2022 10:06 AM CDT documented as of this encounter Last Filed Vital Signs Vital Sign Reading Time Taken Comments Blood Pressure 151/90 07/20/2022 10:12 AM CDT Pulse 82 07/20/2022 10:12 AM CDT Temperature 36.2 ??C (97.1 ??F) 07/20/2022 1 0:12 AM CDT Respiratory Rate - - Oxygen Saturation 100% 07/20/2022 10: 12 AM CDT Inhaled Oxygen Concentration - - Weight 152.5 kg (336 lb 3.2 oz) 023 10:12 AM CDT Height 157.5 cm (5' 2.01 ) 07/20/2022 1 0:12 AM CDT Body Mass Index 61.48 07/20/2022 10:12 AM CDT documented in this encounter Patient Instructions * Patient Instructions* Angela Muñoz MD - 07/20/2022 10:29 AM CDT Keep up food logging Keep up activity! Goal for martial arts! Goal to walk for hiking trip. Plan for labs next visit. Fiber for weight control/make sure getting fluids documented in this encounter Progress Notes * Angela Muñoz MD - 07/20/2022 10:20 AM CDT Bariatric FollowUp Visit Chief Complaint: Obesity with Benign Essential Hypertension and Prediabetes. HPI: The patient is here for follow-up for medical wt loss. Adherence to plan is Good. Dietary and Exercise/Physical activity change from previous visit: Weight change: loss of 10 pounds 03/23: 346 lb Working a lot; coworkers out on maternity leave Nutrition: clothes fitting looser. Cut out snacking. Using MFP to food log. Cut out fast food. Drink soda once per week; down from 1-2 per day. Replaced candy with sugar free jolly ranchers. Using veggie straws and apple chips instead of chips as snacks. Using protein shakes for breakfast. Using tuna packs and bread, veggie straws for lunch. Eating dinner with family. Using flavor pack if wanting something sweet. Son has lost weight with changes. Helping son practice martial arts. Started push mower. Walking. Decreased migraines. Hiking trip in September; wanst to be able to walk for that/start training. Has chart in office to marline weight loss. Not taken Metformin as having renal colic pain. Changes in medical history since prior visit: Had stents in May : had stents placed to bilateral iliac arteries. Had LP after pressures in left eye was noted to be abnormal. Review of Systems: No light headedness, dizziness or excessive fatigue. No chest pain, palpitations or leg swelling No abdominal cramps, no diarrhea, no constipation No leg cramps, calf pain, ulcers or cold extremities. No mood change, unusual feelings of anxiety, depression or irritability No change in sleeping habits. OBJECTIVE: BP 151/90 Pulse 82 Temp 97.1 ??F (36.2 ??C) (Temporal) Ht 1.575 m (5' 2.01 ) Wt (!) 152.5 kg (336 lb 3.2 oz) SpO2 100% Height: 157.5 cm (5' 2.01 ) Body mass index is 61.48 kg/m??. CrCl cannot be calculated (Patient's most recent lab result is older than the maximum 15 days allowed.). Wt Readings from Last 3 Encounters: 07/20/22 (!) 152.5 kg (336 lb 3.2 oz) 05/12/22 (!) 153.8 kg (339 lb) 04/22/22 (!) 154.2 kg (340 lb) BP Readings from Last 3 Encounters: 07/20/22 151/90 05/12/22 129/65 04/22/22 123/67 Physical exam: General appearance - alert, oriented, no distress Mood within normal limits, Labs/studies reviewed: Recent Labs Component Name 05/12/22 1633 04/25/22 0946 03/04/22 1041 04/27/21 1102 12/02/20 1434 04/17/20 1507 04/12/19 1514 POTASSIUM 3.8 - 3.8 - 4.0 - - CO2 - - - BUN 9 12 - - CREATININE 0.57 - 0.55* - 0.63 - - GLUCOSE 98 - 97 - 88 - - CALCIUM 9.5 - 9.9 - 9.9 - - ALT 27 - - - 33 - 12 ALKPHOS 63 - - - 66 - 55 AST 20 - - - 19 - 16 EGFR >90 >90 >90 - >90 - - - = values in this interval not displayed. Allergies Allergen Reactions ??? Levofloxacin Urticaria and Itching Chest pain, shortness of breath and pain and weakness in legs ??? Cephalexin Rash ??? Nifedipine Other Facial redness, palpitations ??? Lexapro [Escitalopram] Other Caused severe teeth grinding, headaches ??? Labetalol Shortness of Breath Social History Smoking status: Never Smokeless tobacco: Never Alcohol use: Not Current* Comment: gets sick when drinks Drug use: Not Current* Comment: marijuana a few times in past Sexual activity: Yes Partners with: Male control/protection: I.U.D. Family History Problem Relation Name Age of Onset ??? Hypertension Mother ??? Anxiety Disorder Mother ??? Renal Disease Mother ??? Hypertension Father ??? Renal Disease Father horseshoe kidney ??? Diabetes - Type 1 Father ??? Sleep Disorder - Sleep apnea Father ??? CAD (Coronary Artery Disease) Father ??? Drug Abuse Sister dereck ??? Other - Hepatic/Liver Sister dereck ??? Hepatitis Sister dereck ??? Depression Sister cornelio ??? Anxiety Disorder Sister cornelio ??? Autoimmune Disease Sister cornelio alopecia ??? Drug Abuse Sister baltazar ??? Bipolar Disorder Sister baltazar ??? Anxiety Disorder Sister baltazar ??? Depression Sister baltazar ??? Depression Sister alton ??? Anxiety Disorder Sister alton ??? Autoimmune Disease Sister alton alopecia ??? Anxiety Disorder Brother fabián ??? Depression Brother fabián ??? Hypertension Brother jayson ??? Renal Disease Brother jayson ??? Anxiety Disorder Brother jayson ??? Depression Brother jayson ??? Drug Abuse Brother jayson ??? Seizures Brother kisha ??? Hypertension Maternal Grandmother ??? Hypertension Maternal Grandfather ??? Diabetes - Type 2 Maternal Grandfather ??? Hypertension Paternal Grandmother ??? Hypertension Paternal Grandfather ??? Cancer - Colon Paternal Grandfather ??? Sudden Paternal Grandfather ??? Asthma Daughter ??? Sleep Disorder - Sleep apnea Son ??? Asthma Son ??? Migraine Son ??? Hypertension Son ??? Autoimmune Disease Son ??? SIDS Son Past Medical History: Diagnosis Date ??? Abnormal blood chemistry level 08/27/2021 ??? Abnormal computed tomography scan 08/27/2021 ??? Anxiety ??? Backache 10/30/2013 ??? BMI 60.0-69.9, adult (CMS/HCC) 11/03/2021 ??? Breast disorder history of breast lump-normal ??? Calf pain 08/27/2021 ??? Cataracts, bilateral 01/02/2019 Has artificial lens in left eye ??? Chronic hypertension affecting 2012 Had mild elevated blood pressure and was asymptomatic at her Hepatology visit April,. History of elevated blood pressure in her previous pregnancies. Baseline labs (06/26/2019, after 20 weeks) BUN 7/creatinine 0.4/ALT 9/AST 11 Twenty-four urine volume 2200 mL: 255 mg protein/24 hr ??? Counseling for HPV (human papillomavirus) vaccination 05/10/2013 ??? COVID-19 04/21/2020 ??? Delivery normal 04/29/2012 ??? Depressive disorder 05/21/2012 ??? Diverticulitis ??? Edema 08/27/2021 ??? Elevated blood-pressure reading without diagnosis of hypertension 04/07/2012 ??? Encounter for insertion of copper intrauterine contraceptive device (IUD) 07/26/2013 ??? Essential hypertension 04/01/2020 Last Assessment & Plan: Condition: stable Discussed target blood pressure. Continue medication as prescribed from PCP/specialist. Take medications at the same time every day. Lifestyle modification advised: DASH diet, reduce stress/anxiety, discussed health weight management, activity as tolerated or advised from PCP, try to avoid ??? Excessive caffeine intake 11/03/2021 ??? Fatty liver disease, nonalcoholic ??? Fewer than 9 weeks gestation of 01/10/2018 ??? Frequent headaches 06/05/2019 ??? Generalized anxiety disorder 11/03/2021 ??? GERD (gastroesophageal reflux disease) 01/02/2019 ??? History of delivery 06/05/2019 history of spontaneous delivery in 1st two pregnancies ??? Liver lesion 06/04/2019 Liver lesion/mass noted on previous ultrasound. ??? Lumbar herniated disc 2015 Previously had physicial therapy and injections ??? Maternal morbid obesity, antepartum (CMS/HCC) 06/05/2019 ??? Migraines ??? Morbid obesity (CMS/HCC) ??? NAFLD (nonalcoholic fatty liver disease) 01/02/2019 02/03/20 Fibroscan CAP 400, LSM 22.0 kPa 10/27/20 Fibroscan CAP 400, LSM 63.1 kPa ??? Nasal polyp 11/03/2021 ??? Palpitations Per patient ??? 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 Short interval between pregnancies affecting , antepartum 06/05/2019 ??? Sleep apnea Has not had a sleep study ??? Supervision of high-risk of young multigravida 06/04/2019 LMP 01/22/19 [approximate] CRL at 13 wk--LUISA 10/31/19 O+ Neg, Imm, RPR-NR, HBSag- NR, HIV-NR, HepC-NRHH 11.6/ 34.2 Plts 283 HgA1C- 5.1 Invitae carrier screen negative Sequential screen started 28 weeklabs: 5/6/20: GCT: 127 H/H: 10.8/32.3 HIV and RPR NR Current Outpatient Medications Medication Sig Dispense Refill ??? amLODIPine (Norvasc) 10 MG tablet Take 1 (one) tablet by mouth once daily ??? aspirin (Aspirin) 81 MG chew tablet Take 1 (one) tablet by mouth once daily ??? clopidogrel (plaVIX) 75 MG tablet Take 1 (one) tablet by mouth once daily ??? erenumab-aooe (Aimovig) 70 MG/ML auto injector pen Inject 1 mL subcutaneously every 30 days 1 mL 11 ??? fluticasone-salmeterol (Advair/Wixela) 100-50 MCG/ACT inhaler Inhale 1 (one) puff by mouth 2 times daily Rinse mouth/throat well and spit after use. 60 Each 3 ??? furosemide (Lasix) 40 MG tablet Take 1 (one) tablet by mouth every morning ??? gabapentin (Neurontin) 100 MG capsule Take 1 (one) capsule by mouth 3 times daily 270 capsule 3 ??? Iron, Ferrous Sulfate, 325 (65 Fe) MG TABS Take by mouth once daily ??? losartan (Cozaar) 100 MG tablet Take 1 (one) tablet by mouth once daily ??? metoprolol tartrate IR (Lopressor) 50 MG tablet Take 1 (one) tablet by mouth 2 times daily ??? Multiple Vitamins-Minerals (Womens Multivitamin) TABS Take 1 tablet by mouth once daily ??? omeprazole (PriLOSEC) 20 MG capsule Take 1 (one) capsule by mouth once daily as needed ??? PARAGARD INTRAUTERINE COPPER IU ??? rimegepant (Nurtec) 75 MG tablet Take 75 mg by mouth once daily as needed for Migraine 8 [id number] ??? spironolactone (Aldactone) 25 MG tablet Take 1 (one) tablet by mouth once daily 90 tablet 3 ??? vitamin D, cholecalciferol, 50 MCG (2000 UT) tablet Take 1 (one) tablet by mouth once daily ??? zonisamide (Zonegran) 25 MG capsule Take 1 (one) capsule by mouth once daily 30 capsule 11 No current facility-administered medications for this visit. Impression/Plan: ICD-10-CM 1. NAFLD (nonalcoholic fatty liver disease) K76.0 2. Class 3 severe obesity due to excess calories with serious comorbidity and body mass index (BMI)of 60.0 to 69.9 in adult ([facility]) E66.01 Z68.44 3. Prediabetes R73.03 4. Essential hypertension I10 Plan to check a1c next visit - Pharmaceutical interventions: ___x__Pt had SE to Metformin so discontinued. Insurance will not cover glp agonists. - The patient is agreeable. Plan for ongoing weight management (marked with X): ___x__ Colon And Rectal Surgeon care is recommended (1500 calories/day diet to continue / start) The patient received detailed Menu plan for the daily calories recommended. ___x__ Meal Replacement Products (1 protein shake) per day as part of the recommended diet Licensed Professional Counselor evaluation recommended Physical Activity counseling is recommended. Information provided. __x___ Discussed low/moderate impact exercise options. Specific examples and recommendations were provide. __x___ Activity of 20-40 minutes of fast pace walking is recommended 5-7 days of the week. ___x__ Specific Behavioral modification suggestions and written plan were provided for the patient. Keep up food logging Keep up activity! Goal for martial arts! Goal to walk for hiking trip. Plan for labs next visit. Fiber for weight control/make sure getting fluids __X___ Updated metabolic calculation sheet prepared and discussed at length with the patient. ___x__ Personalized Diet plan was provided to the patient. ___x__ Follow up with Dr. Muñoz in 6 weeks. My total time spent caring for the patient on the day of the encounter was 21 minutes. Angela Muñoz MD 07/29/2022 documented in this encounter Plan of Treatment Not on file documented as of this encounter Goals Goal Patient Goal Type Associated Problems Recent Progress Patient-Stated? Author Medication Management General On track( 023 9:23 AM CDT) No Gabriella Moon, RN Note: Expected end date: ongoing Interventions: Take all medications as prescribed Safety General On track( 021 11:18 AM CDT) Gabriella Arguello, RN Note: Expected end date: ongoing Interventions: Your nurse will assess your risk for falls/injury each visit documented as of this encounter Visit Diagnoses Diagnosis NAFLD (nonalcoholic fatty liver disease)- Primary Other chronic nonalcoholic liver disease Class 3 severe obesity due to excess calories with serious comorbidity and body mass index (BMI) of 60.0 to 69.9 in adult (HCC) Prediabetes Other abnormal glucose Essential hypertension documented in this encounter Care Teams Sand Blaster Relationship Specialty Start Date End Date Jonelle Elam MD [address] [place] [address] PCP - General Family Medicine 10/24/18 Manju Rainey DO [address] [place] [address] Bariatrics 08/11/20 Skylar Canales PA-C [address] [address] Physician Statistics Tutor Nephrology 03/04/22 documented as of this encounter
--- OUTSIDE RECORDS SUMMARY | 2024-04-14 17:43 | XMS_ITS | Encounter Summary ---
Author Organization [facility] Address [address] [place] [address] Care Team Providers Care Senior Shipping Clerk Name Role Phone Jonelle Elam MD Primary Care Provider [phone] Manju Rainey DO Unavailable [phone] Skylar Canales PA-C Unavailable Encounter Details Date Type Department Care Team (Latest Contact Info) Description 08/19/2022 Travel Social History Tobacco Use Types Packs/Day Years [...] suspected to have Coronavirus/COVID-19? No / Unsure 08/19/2022 10:09 AM CDT documented as of this encounter Plan of Treatment Not on [...] documented as of this encounter Visit Diagnoses Not on filedocumented in this encounter Care Teams Senior Shipping Clerk Relationship Specialty Start Date End Date Jonelle Elam MD [address] [place] [address] PCP - General Family Medicine 10/24/18 Manju Rainey DO [address] [place] [address] Bariatrics 08/11/20 Skylar Canales PA-C [address] [facility] [place] [phone] Physician Telephone Supervisor Nephrology 03/04/22 documented as of this encounter
--- OUTSIDE RECORDS SUMMARY | 2024-04-14 17:43 | XMS_ITS | Encounter Summary ---
Author Organization [facility] Address [address] [place] [address] Care Team Providers Care Hogshead Mat Inspector Name Role Phone Jonelle Elam MD Primary Care Provider [phone] Manju Rainey DO Unavailable [phone] Skylar Canales-Desirae Unavailable [phone] Reason for Visit * Reason Onset Date Comments Medication Prior Auth Request 11/10/2022 Encounter Details Date Type Department Care Team (Late st Contact Info) Description 11/10/2022 Telephone [facility] - Neurology [address] [place] [address], [place] [address] Jeff Bird, AKUA-PERSONNEL TRAINING OFFICER [address] [place] [address] [place] [address] Medication Prior Auth Request Social History Tobacco Use Types Packs/Day Years [...] on file Sexual Orientation Not on file documented as of this encounter Miscellaneous Notes * Telephone Encounter - Margy Sharma RN - 11/16/2022 12:59 PM CDT PA rejection received from Juan as below: Your PA request has been closed. There is an active Prior Authorization approval on file until 08/10/2023. PLEASE NOTE: Based on the patient's pharmacy claim history, the last paid claim for this medication was on 2022. The next refill is available on/or after 12/05/2022. This request is now closed. * Telephone Encounter - Margy Sharma RN - 11/10/2022 1:18 PM CDT PA renewal initiated with Juan via covermymeds for [facility]. Included last visit note dated 04/27/2022. Will await a response. DOWD: [id number] documented in this encounter Plan of Treatment Not on file documented as of this encounter Goals Goal Patient Goal Type Associated Problems Recent Progress Patient-Stated? Author Medication Management General On track( 023 9:23 AM CDT) No Gabriella Moon RN Note: Expected end date: ongoing Interventions: Take all medications as prescribed Safety General On track( 021 11:18 AM CDT) No Gabriella Moon RN Note: Expected end date: ongoing Interventions: Your nurse will assess your risk for falls/injury each visit documented as of this encounter Visit Diagnoses Not on filedocumented in this encounter Care Teams Hogshead Mat Inspector Relationship Specialty Start Date End Date Jonelle Elam MD [address] [place] [address] [place] [address] PCP - General Family Medicine 10/24/18 Manju Rainey DO [address] [place] [address] Bariatrics 08/11/20 Skylar Canales PA-C [address] [facility] [place] [address] Physician Pipe Bowls Paint Trimmer Nephrology 03/04/22 documented as of this encounter
--- OUTSIDE RECORDS SUMMARY | 2024-04-14 17:43 | XMS_ITS | Encounter Summary ---
Author Organization [facility] Address [address] [place] [address] Care Team Providers Care Belt Molder Name Role Phone Jonelle Elam MD Primary Care Provider Manju Rainey DO Unavailable [phone] Skylar Canales-C Unavailable [phone] Encounter Details Date Type Department Care Team (Late st Contact Info) Description 11/09/2022 Orders Only [facility] - Neurology [address] [place] [address], [place] [address] Jeff Bird APRN-CARBON PLANT GRINDER [address] [place] [address] [place] [phone] Papilledema associated with retinal disorder Social History Tobacco Use Types Packs/Day Years [...] on file documented as of this encounter Plan of Treatment Not on file documented as of this encounter Goals Goal Patient Goal Type Associated Problems Recent Progress Patient-Stated? Author Medication Management General On track( 023 9:23 AM CDT) Gabriella Arguello RN Note: Expected end date: ongoing Interventions: Take all medications as prescribed Safety General On track( 021 11:18 AM CDT) Gabriella Arguello RN Note: Expected end date: ongoing Interventions: Your nurse will assess your risk for falls/injury each visit documented as of this encounter Visit Diagnoses Diagnosis Papilledema associated with retinal disorder- Primary documented in this encounter Care Teams Belt Molder Relationship Specialty Start Date End Date Jonelle Elam MD [address] [place] [address] [place] [address] PCP - General Family Medicine 10/24/18 Manju Rainey DO [address] [place] [address] Bariatrics 08/11/20 Skylar Canales PA-C [address] [facility] [address] [facility] [place] [place] [phone] Physician Desk Monitor Nephrology 03/04/22 documented as of this encounter
--- OUTSIDE RECORDS SUMMARY | 2024-04-14 17:43 | XMS_ITS | Encounter Summary ---
Author Organization [facility] Address [address] [place] [address] Care Team Providers Care Bioinformatics Support Specialist Name Role Phone Jonelle Elam MD Primary Care Provider [phone] Manju Rainey DO Unavailable Skylar Canales PA-C Unavailable Reason for Visit * Reason Comments Refill Request Encounter Details Date Type Department Care Team (Late st Contact Info) Description 01/28/2023 Refill [facility] - Nephrology [address] [place] [address], [place] [address] Skylar Canales PA-C [address] [place] [address] [address] [place] [address] Refill Request Social History Tobacco Use Types Packs/Day [...] on filedocumented in this encounter Care Teams Bioinformatics Support Specialist Relationship Specialty Start Date End Date Jonelle Elam MD [address] [place] [phone] PCP - General Family Medicine 10/24/18 Manju Rainey DO [address] [place] [address] Bariatrics 08/11/20 Skylar Canales PA-C [address] [facility] 3[facility] [place] [address] Physician Combat Systems Engineer Nephrology 03/04/22 documented as of this encounter
--- OUTSIDE RECORDS SUMMARY | 2024-04-14 17:43 | XMS_ITS | Encounter Summary ---
Author Organization [facility] Address [address] [place] [address] Care Team Providers Care Ship Boat Or Barge Mate Name Role Phone Jonelle Elam MD Primary Care Provider Manju Rainey DO Unavailable [phone] Skylar Canales-C Unavailable Reason for Visit * Reason Comments Refill Request Encounter Details Date Type Department Care Team (Late st Contact Info) Description 05/23/2022 Refill [facility] [address] [place] [address] Reena Pollock, APNP-VETERINARY EPIDEMIOLOGIST [address] OF PULMONARY/[place] [address] Refill Request Social History Tobacco Use Types [...] on filedocumented in this encounter Care Teams Ship Boat Or Barge Mate Relationship Specialty Start Date End Date Jonelle Elam MD [address] [place] [address] [place] [phone] PCP - General Family Medicine 10/24/18 Manju Rainey DO [address] [place] [address] Bariatrics 08/11/20 Skylar Canales PA-C [address] [facility] 3[facility] [place] [address] Physician Steel Wheel Engraver Nephrology 03/04/22 documented as of this encounter
--- OUTSIDE RECORDS SUMMARY | 2024-04-14 17:43 | XMS_ITS | Patient Health Summary ---
Author Organization [facility] Address [address] [place] [address] Care Team Providers Care Executive Administrative Assistant Name Role Phone Jonelle Elam MD Primary Care Provider [phone] Manju Rainey DO Unavailable [phone] Skylar Canales PA-C Unavailable [phone] Note from [facility],non-owned Affiliates and Associated Physician Practices is amultiple site organization consisting of ambulatory clinics and hospital sitesin [place], [place], [place] and [place]. This disclosure is being madepursuant to the Care Everywhere program and may not contain all information available regarding this patient. Last updated 17.[facility] Allergies * Cephalexin(Rash) -Medium Criticality * Labetalol(Shortness of Breath) -High Criticality * Levofloxacin(Urticaria,Itching) -High Criticality * Escitalopram(Other) -Low Criticality * Nifedipine(Other) Medications * Be aware that medications may not be up to date on this document. Alwaysverify current medications with the patient. * vitamin D, cholecalciferol, 50 MCG (2000 UT) tablet Take 1 (one) tablet by mouth once daily * Iron, Ferrous Sulfate, 325 (65 Fe) MG TABS Take by mouth once daily * PARAGARD INTRAUTERINE COPPER IU * omeprazole (PriLOSEC) 20 MG capsule(Started 12/17/2021) Take 1 (one) capsule by mouth once daily as needed * fluticasone-salmeterol (Advair/Wixela) 100-50 MCG/ACT inhaler(Started 01/21/2022) Inhale 1 (one) puff by mouth 2 times daily Rinse mouth/throat well and spit after use. 3 refills by 01/21/2023 * amLODIPine (Norvasc) 10 MG tablet(Started 02/07/2022) Take 1 (one) tablet by mouth once daily * losartan (Cozaar) 100 MG tablet(Started 02/21/2022) Take 1 (one) tablet by mouth once daily * furosemide (Lasix) 40 MG tablet(Started 03/30/2022) Take 1 (one) tablet by mouth every morning * metoprolol tartrate IR (Lopressor) 50 MG tablet(Started 03/30/2022) Take 1 (one) tablet by mouth 2 times daily * Multiple Vitamins-Minerals (Womens Multivitamin) TABS Take 1 tablet by mouth once daily * zonisamide (Zonegran) 25 MG capsule(Started 04/27/2022) Take 1 (one) capsule by mouth once daily 11 refills by 04/27/2023 * gabapentin (Neurontin) 100 MG capsule(Started 04/27/2022) Take 1 (one) capsule by mouth 3 times daily 3 refills by 04/27/2023 * aspirin (Aspirin) 81 MG chew tablet(Started 05/05/2022) Take 1 (one) tablet by mouth once daily * clopidogrel (plaVIX) 75 MG tablet(Started 05/05/2022) Take 1 (one) tablet by mouth once daily * Trulicity 0.75 MG/0.5ML injection(Started 08/04/2022) ADMINISTER 0.75 MG UNDER THE SKIN EVERY WEEK * DULoxetine (Cymbalta) 20 MG capsule(Started 07/31/2022) Take 1 (one) capsule by mouth once daily * cyanocobalamin (Vitamin B-12) 1000 MCG tablet Take 1 (one) tablet by mouth once daily * spironolactone (Aldactone) 25 MG tablet(Started 01/30/2023) Take 1 (one) tablet by mouth once daily APPT NEEDED CALL [phone] X 1 TO SCHEDULE Active Problems Problem Noted Date Diagnosed Date Prediabetes 04/07/2022 BMI 60.0-69.9, adult 11/03/2021 Generalized anxiety disorder 11/03/2021 Excessive caffeine intake 11/03/2021 Migraines 11/03/2021 Essential hypertension 04/01/2020 Frequent headaches 06/05/2019 Cataracts, bilateral 01/02/2019 NAFLD (nonalcoholic fatty liver disease) 019 GERD (gastroesophageal reflux disease) 9 Lumbar herniated disc 04/03/2014 Uses intrauterine device for control 10/21 Depressive disorder 05/21/2012 Diverticulitis Sleep apnea Immunizations * DTaP VACCINE IM (6wk-6yrs)(Given 10/07/1999, 03/07/1996) * FLU VACCINE QUAD IIV4 SPLIT 0.25 ML IM(Given 01/28/2016) * FLU VACCINE TRI IIV3 SPLIT PF IM (FLUVIRIN)(Given 01/30/2013) * HEP B VACCINE, PED/ADOL(Given 09/14/1995, 1994, 1994) * HIB-PRP-OMP 3 DOSE(Given 03/07/1996) * Human Papilloma Virus Quadrivalent Vaccine(Given 01/08/2008, 02/12/2007, 11/27/2006) * INFLUENZA VACCINE, QUADR. (FLUZONE; FLULAVAL; FLUARIX; AFLURIA QUADRIVALENT; 6MO+), 0.5 ML (IIV4)(Given 01/01/2020, 01/03/2019, 01/26/2018, 03/15/2017, 03/06/2015, 02/18/2014) * MENINGOCOCCAL CONJUGATE (MCV4P)(Given 10/27/2008) * MMR(Given 08/02/2018, 10/07/1999, 12/07/1995) * POLIO IPV(Given 10/07/1999) * POLIO OPV(Given 05/22/1995, 03/20/1995, 01/12/1995) * TDAP (7yrs+)(Given 08/01/2018, 10/27/2008) * VARICELLA(Given 11/27/2006, 03/07/1996) Social History Tobacco Use Types Packs/Day Years Used Date Smoking Tobacco: Never Smokeless Tobacco: Never Tobacco Cessation:Counseling Given: Not Answered Alcohol Use Standard Drinks/Week Comments Not Currently [...] on file Sexual Orientation Not on file Last Filed Vital Signs Vital Sign Reading Time Taken Comments Blood Pressure 125/71 08/19/2022 9:23 AM CDT Pulse 75 08/19/2022 9:23 AM CDT Temperature 36.7 ??C (98 ??F) 08/19/2022 9:23 AM CDT Respiratory Rate 18 08/19/2022 9:23 AM CDT Oxygen Saturation 100% 08/19/2022 9:23 AM CDT Inhaled Oxygen Concentration - - Weight 150.1 kg (331 lb) 08/19/2022 9:23 AM CDT Height 157.5 cm (5' 2.01 ) 07/20/2022 10:12 AM C DT Body Mass Index 60.53 07/20/2022 10:12 AM CDT Procedures * EYE EXAM(Performed 06/14/2022) * EYE EXAM(Performed 06/13/2022) * COMPREHENSIVE METABOLIC PANEL(Performed 05/12/2022) Performed for NAFLD (nonalcoholic fatty liver disease) * CBC W AUTO DIFFERENTIAL(Performed 05/12/2022) Performed for NAFLD (nonalcoholic fatty liver disease) * MRI ABDOMEN WWO CONTRAST(Performed 04/25/2022) Performed for NAFLD (nonalcoholic fatty liver disease), Liver lesion * CREATININE - POCT INTERFACED(Performed 04/25/2022) * POTASSIUM URINE TIMED(Performed 04/22/2022) Performed for Secondary hypertension * ALDOSTERONE URINE TIMED(Performed 04/22/2022) Performed for Secondary hypertension * URINE MICROSCOPIC ONLY REFLEX TO CULTURE(Performed 03/04/2022) Performed for Secondary hypertension * PTH INTACT W/O CALCIUM(Performed 03/04/2022) Performed for Secondary hypertension * RENAL FUNCTION PANEL(Performed 03/04/2022) Performed for Secondary hypertension * URIC ACID BLOOD(Performed 03/04/2022) Performed for Secondary hypertension * MAGNESIUM BLOOD(Performed 03/04/2022) Performed for Secondary hypertension * CBC W AUTO DIFFERENTIAL(Performed 03/04/2022) Performed for Secondary hypertension * RENIN ACTIVITY(Performed 03/04/2022) Performed for Secondary hypertension * ALDOSTERONE BLOOD(Performed 03/04/2022) Performed for Secondary hypertension * HEMOGLOBIN A1C(Performed 03/04/2022) Performed for Secondary hypertension * VITAMIN D 25-HYDROXY(Performed 03/04/2022) Performed for Secondary hypertension * TSH REFLEX FREE T4(Performed 03/04/2022) Performed for Secondary hypertension * URINALYSIS REFLEX MICROSCOPIC REFLEX CULTURE(Performed 03/04/2022) Performed for Secondary hypertension * PROTEIN CREATININE RATIO URINE RANDOM PNL(Performed 03/04/2022) Performed for Secondary hypertension * MICROALB/CREAT RATIO URINE RANDOM PANEL(Performed 03/04/2022) Performed for Secondary hypertension * ALLERGEN RESPIRATORY PNL REGION 8 ([place])(Performed 12/25/2021) * BRONCHIAL CHALLENGE(Performed 12/17/2021) Performed for Essential hypertension, BMI 60.0-69.9, adult (HCC), Nasal congestion, SOB (shortness of breath) on exertion, Family history of asthma * PFT-LAB(Performed 12/17/2021) Performed for MOOSE (obstructive sleep apnea), Essential hypertension, BMI 60.0- 69.9, adult (HCC), Nasal congestion, SOB (shortness of breath) on exertion, Family history of asthma * AMBULATORY REFERRAL TO SLEEP SPECIALIST(Performed 11/03/2021) Performed for MOOSE (obstructive sleep apnea) * MRI ABDOMEN WWO CONTRAST(Performed 10/22/2021) Performed for Liver lesion * CREATININE - POCT INTERFACED(Performed 10/22/2021) * MRI ABDOMEN WWO CONTRAST(Performed 04/27/2021) Performed for Liver lesion, Focal nodular hyperplasia of liver, NAFLD (nonalcoholic fatty liver disease), Morbid obesity (HCC) * CREATININE - POCT INTERFACED(Performed 04/27/2021) * SARS-COV-2 (COVID-19) IN HOUSE(Performed 02/14/2021) Performed for Pre-operative laboratory examination * SARS-COV-2 (COVID-19) PANEL (SOIL)(Performed 02/14/2021) Performed for Pre-operative laboratory examination * CARDIAC EKG ORDER(Performed 02/10/2021) * EKG 12-LEAD(Performed 02/09/2021) Performed for Central sleep apnea due to medical condition * BLOOD TYPE VERIFICATION(Performed 02/09/2021) * TYPE + SCREEN PANEL(Performed 02/09/2021) Performed for Pre-op testing * MRI ABDOMEN WWO CONTRAST(Performed 01/19/2021) Performed for Liver lesion * BILIRUBIN DIRECT(Performed 12/02/2020) Performed for Liver lesion, Nonalcoholic fatty liver disease * VITAMIN D 25-HYDROXY(Performed 12/02/2020) Performed for Morbid obesity (HCC) * VITAMIN B1(Performed 12/02/2020) Performed for Morbid obesity (HCC) * IRON + TRANSFERRIN PANEL(Performed 12/02/2020) Performed for Morbid obesity (HCC) * MAGNESIUM BLOOD(Performed 12/02/2020) Performed for Morbid obesity (HCC) * LIPID PROFILE(Performed 12/02/2020) Performed for Morbid obesity (HCC) * HEMOGLOBIN A1C(Performed 12/02/2020) Performed for Morbid obesity (HCC) * FERRITIN(Performed 12/02/2020) Performed for Morbid obesity (HCC) * COMPREHENSIVE METABOLIC PANEL(Performed 12/02/2020) Performed for Liver lesion, Nonalcoholic fatty liver disease * PT-INR [facility](Performed 12/02/2020) Performed for Liver lesion, Nonalcoholic fatty liver disease * CBC W AUTO DIFFERENTIAL(Performed 12/02/2020) Performed for Liver lesion, Nonalcoholic fatty liver disease * FOLATE(Performed 12/02/2020) Performed for Liver lesion * VITAMIN B12(Performed 12/02/2020) Performed for Liver lesion * PTH INTACT W/O CALCIUM(Performed 12/02/2020) Performed for Liver lesion * TSH REFLEX FREE T4(Performed 12/02/2020) Performed for Liver lesion * PTT [facility](Performed 12/02/2020) Performed for Liver lesion * AZ LIVER ELASTOGRAPHY(Performed 10/27/2020) Performed for Liver lesion, Focal nodular hyperplasia of liver, NAFLD (nonalcoholic fatty liver disease), Morbid obesity (HCC) * MRI ABDOMEN WWO CONTRAST(Performed 04/17/2020) Performed for Liver lesion, NAFLD (nonalcoholic fatty liver disease) * CREATININE - POCT INTERFACED(Performed 04/17/2020) * LAB MISC TEST(Performed 03/09/2020) * AZ LIVER ELASTOGRAPHY(Performed 02/03/2020) Performed for Nonalcoholic fatty liver disease, Liver lesion, Focal nodular hyperplasia of liver * SONOGRAM - COMPLETE(Performed 08/14/2019) Performed for Short interval between pregnancies affecting , antepartum (HCC), Maternal morbid obesity, antepartum (HCC), Supervision of high-risk of young multigravida (HCC), Chronic hypertension affecting (HCC), History of delivery, NAFLD (nonalcoholic fatty liver disease) * SONOGRAM - COMPLETE(Performed 07/05/2019) Performed for Maternal morbid obesity, antepartum (HCC), Chronic hypertension affecting (HCC) * SONOGRAM - COMPLETE(Performed 06/21/2019) Performed for NAFLD (nonalcoholic fatty liver disease), Liver lesion, Supervision of high-risk of young multigravida (HCC) * HEPATIC FUNCTION PANEL(Performed 04/12/2019) Performed for Nonalcoholic fatty liver disease, Liver lesion, Focal nodular hyperplasia of liver * MRI ABDOMEN WWO CONTRAST(Performed 02/14/2019) Performed for Liver mass * HEPATITIS B SURFACE ANTIGEN W RFLX CONFIRMATION(Performed 01/02/2019) Performed for Nonalcoholic fatty liver disease, Morbid obesity (HCC), Liver lesion * TRANSFERRIN(Performed 01/02/2019) Performed for Nonalcoholic fatty liver disease, Morbid obesity (HCC), Liver lesion * SMOOTH MUSCLE ANTIBODY(Performed 01/02/2019) Performed for Nonalcoholic fatty liver disease, Morbid obesity (HCC), Liver lesion * MITOCHONDRIAL ANTIBODY SCREEN(Performed 01/02/2019) Performed for Nonalcoholic fatty liver disease, Morbid obesity (HCC), Liver lesion * HEPATITIS C ANTIBODY(Performed 01/02/2019) Performed for Nonalcoholic fatty liver disease, Morbid obesity (HCC), Liver lesion * HEPATITIS B SURFACE ANTIBODY(Performed 01/02/2019) Performed for Nonalcoholic fatty liver disease, Morbid obesity (HCC), Liver lesion * HEPATITIS A ANTIBODY(Performed 01/02/2019) Performed for Nonalcoholic fatty liver disease, Morbid obesity (HCC), Liver lesion * CERULOPLASMIN(Performed 01/02/2019) Performed for Nonalcoholic fatty liver disease, Morbid obesity (HCC), Liver lesion * MEHDI BLOOD SCREEN W/REFLEX TITER(Performed 01/02/2019) Performed for Nonalcoholic fatty liver disease, Morbid obesity (HCC), Liver lesion * [id number] BLOOD PHENOTYPING PANEL(Performed 01/02/2019) Performed for Nonalcoholic fatty liver disease, Morbid obesity (HCC), Liver lesion * HEPATIC FUNCTION PANEL(Performed 01/02/2019) Performed for Nonalcoholic fatty liver disease, Morbid obesity (HCC), Liver lesion * AZ LIVER ELASTOGRAPHY(Performed 11/05/2018) Performed for Fatty liver Results * EYE EXAM (06/14/2022) Anatomical Region Laterality Modality Other Narrative 06/14/2022 Ordered by an unspecified provider. Scanned Document SCANNING ONLY * EYE EXAM (06/13/2022) Anatomical Region Laterality Modality Other Narrative 06/13/2022 Ordered by an unspecified provider. Scanned Document SCANNING ONLY * (ABNORMAL) CBC WITH DIFFERENTIAL (05/12/2022 4:33 PM RESIDENT CARE MANAGER RN) Only the most recent of3 resultswithin the time period is included. WBC 9.0 3.5 - 10.5 10? 3 /uL 05/12/2022 4:56 PM [facility] RBC 4.24 3.80 - 5.20 10? 6 /uL 05/12/2022 4:56 PM [facility] Hemoglobin 11.6(L) 12.0 - 15.6 g/dL 05/12/2022 4:56 PM [facility] Hematocrit 34.4(L) 35.0 - 45.0 % 05/12/2022 4:56 PM [facility] MCV 81.1 80.7 - 98.3 fL 05/12/2022 4:56 PM [facility] MCH 27.4 26.7 - 34.0 pg 05/12/2022 4:56 PM [facility] MCHC 33.7 30.8 - 35.9 g/dL 05/12/2022 4:56 PM [facility] RDW-SD 38.5 36.0 - 50.0 fL 05/12/2022 4:56 PM [facility] RDW-CV 13.2 11.2 - 14.8 % 05/12/2022 4:56 PM [facility] Platelet Count 341 150 - 400 10? 3 /uL 05/12/2022 4:56 PM [facility] MPV 9.3(L) 9.4 - 12.9 fL 05/12/2022 4:56 PM [facility] nRBC Absolute 0.00 0 10? 3 /uL 05/12/2022 4:56 PM [facility] nRBC Auto 0.0 0 /100 WBC 05/12/2022 4:56 PM [facility] Neutrophils % 63.0 35.0 - 70.0 % 05/12/2022 4:56 PM [facility] Lymphocytes % 25.6 20.0 - 43.0 % 05/12/2022 4:56 PM [facility] Monocytes % 7.0 5.0 - 13.0 % 05/12/2022 4:56 PM [facility] Eosinophils % 3.1 0.0 - 6.0 % 05/12/2022 4:56 PM [facility] Basophil % 0.7 0.0 - 2.0 % 05/12/2022 4:56 PM [facility] Neutrophils Absolute 5.65 1.60 - 7.00 10? 3 /uL 05/12/2022 4:56 PM [facility] Lymphocyte Absolute 2.29 1.10 - 3.90 10? 3 /uL 05/12/2022 4:56 PM [facility] Monocytes Absolute 0.63 0.26 - 1.07 10? 3 /uL 05/12/2022 4:56 PM [facility] Eosinophils Absolute 0.28 0.00 - 0.47 10? 3 /uL 05/12/2022 4:56 PM [facility] Basophils Absolute 0.06 0.00 - 0.08 10? 3 /uL 05/12/2022 4:56 PM [facility] Immature Granulocytes % 0.6 0.0 - 1.0 % 05/12/2022 4:56 PM [facility] Immature Granulocytes Absolute 0.05 05/12/2022 4:56 PM [facility] Blood BLOOD SPECIMEN / Unknown Lab Venipuncture / Unknown 05/12/2022 4:33 PM RESIDENT CARE MANAGER RN 05/12/2022 4:48 PM [facility] Linda Gurrola MEDICAL AND HEALTH SERVICES MANAGER-[employer] LAB - HEMAT OLOGY ORDERABLES [facility] [address] [place] [address], [facility] [phone] * (ABNORMAL) COMPREHENSIVE METABOLIC PANEL (05/12/2022 4:33 PM [facility]) Only the most recent of2 resultswithin the time period is included. BUN 9 7 - 26 mg/dL 05/12/2022 5:18 PM [facility] Creatinine 0.57 0.56 - 0.96 mg/dL 05/12/2022 5:18 PM [facility] Sodium 135(L) 136 - 145 mmol/L 05/12/2022 5:18 PM [facility] Potassium 3.8 3.5 - 4.5 mmol/L 05/12/2022 5:18 PM [facility] Chloride 104 98 - 107 mmol/L 05/12/2022 5:18 PM [facility] CO2 25 22 - 29 mmol/L 05/12/2022 5:18 PM [facility] Glucose 98 70 - 115 mg/dL 05/12/2022 5:18 PM [facility] Calcium 9.5 8.4 - 10.2 mg/dL 05/12/2022 5:18 PM [facility] Protein Total 7.3 6.0 - 8.3 g/dL 05/12/2022 5:18 PM [facility] Albumin 3.9 3.4 - 5.0 g/dL 05/12/2022 5:18 PM [facility] Bilirubin Total 0.7 0.2 - 1.2 mg/dL 05/12/2022 5:18 PM [facility] Alkaline Phosphatase 63 40 - 150 U/L 05/12/2022 5:18 PM [facility] ALT 27 5 - 55 U/L 05/12/2022 5:18 PM [facility] AST 20 5 - 34 U/L 05/12/2022 5:18 PM [facility] Anion Gap 10 8 - 18 05/12/2022 5:18 PM [facility] BUN/Creatinine Ratio 16 7 - 23 05/12/2022 5:18 PM RESIDENT CARE MANAGER RN [facility] Osmolality Calculated 279 270 - 300 mOsm/kg 05/12/2022 5:18 PM RESIDENT CARE MANAGER RN [facility] Albumin/Globulin Ratio 1.1 1.1 - 2.3 05/12/2022 5:18 PM RESIDENT CARE MANAGER RN [facility] eGFR by CKD-EPI >90 >=90 mL/min/1.7 3 m2 05/12/2022 5:18 PM RESIDENT CARE MANAGER RN [facility] Blood BLOOD SPECIMEN / Unknown Lab Venipuncture / Unknown 05/12/2022 4:33 PM RESIDENT CARE MANAGER RN 05/12/2022 4:48 PM RESIDENT CARE MANAGER RN Linda Gurrola MEDICAL AND HEALTH SERVICES MANAGER-[employer] [facility] LAB - CHEMI STRY ORDERABLES [address] [address], [facility] [phone] * MRI ABDOMEN WWO CONTRAST (04/25/2022 10:30 AM RESIDENT CARE MANAGER RN) Only the most recent of6 resultswithin the time period is included. Anatomical Region Laterality Modality Abdomen Magnetic Resonan ce 04/25/2022 12:2 7 PM RESIDENT CARE MANAGER RN Impressions 04/25/2022 12:42 PM RESIDENT CARE MANAGER RN IMPRESSION: 1. No substantial change in a 3.3 cm focal nodular hyperplasia in hepatic segment 7 and another 1.5 cm focal nodular hyperplasia hepatic segment 6/7. 2. There is a 1 cm arterial enhancing observation in hepatic segment 8 that does not retain contrast on the hepatobiliary phase and could represent an adenoma, unchanged from the prior examination. 3. Hepatic steatosis. > Interpreting Provider: Chance Castaneda MD on 04/25/2022 12:42 PM Narrative 04/25/2022 12:42 PM RESIDENT CARE MANAGER RN PROCEDURE: ??MRI ABDOMEN WWO CONTRAST, DATE/TIME OF EXAM: ??04/25/2022 10:30 AM, LOCATION ??[facility] INDICATION: K76.0: NAFLD (nonalcoholic fatty liver disease) K76.9: Liver lesion ADDITIONAL CLINICAL INFORMATION: Ordering Provider Reason For Exam: ??nafld, liver lesions COMPARISON: 10/22/2021. TECHNIQUE: Multiplanar multisequence MR imaging of the abdomen before and following uneventful administration of intravenous contrast according to standard contrast-enhanced protocol. ?? CONTRAST: ?? GADOXETATE DISODIUM 0.25 MOL/L IV SOLN:10 mL FINDINGS: Gastrointestinal: No bowel obstruction or inflammatory process. Liver: There is diffuse hepatic steatosis. Focal liver lesion: *3.3 x 2.9 cm arterial enhancing observation in hepatic segment 7, series 9 image 31 which is hyperintense to the liver parenchyma on the hepatobiliary phase imaging with central stellate scar, consistent with focal nodular hyperplasia. *1.5 cm arterial enhancing observation in hepatic segment 6/7, series 9 image 47 that is hyperintense to the hepatic parenchyma on hepatic biliary phase and consistent with focal nodular hyperplasia. *There is a 1 cm arterial enhancing observation in hepatic segment 8, seen on series 9 image 46 that does not retain contrast on the hepatobiliary phase and is unchanged prior exam, possibly hepatic adenoma. There is an adjacent area of transient hepatic intensity difference, superior to the lesion is unchanged from prior. The previously described enhancing observation just inferior to this region is not seen on the current study. * Hepatobiliary system: No biliary filling defects or irregularity. Gallbladder: Normal. No gallstones. Spleen: No appreciable splenomegaly or suspicious splenic lesion. Pancreas: No imaging evidence of pancreatic ductal dilatation or suspicious pancreatic lesion or peripancreatic inflammatory change. Kidneys: Renal cysts with no hydronephrosis. Adrenal Glands: No appreciable suspicious adrenal mass. Peritoneal cavity: No lymphadenopathy. No free intraperitoneal fluid. Musculoskeletal: No acute osseous abnormality. Procedure Note Chance Castaneda MD - 04/25/2022 PROCEDURE: MRI ABDOMEN WWO CONTRAST, DATE/TIME OF EXAM: 0:30 AM, LOCATION [facility] INDICATION: K76.0: NAFLD (nonalcoholic fatty liver disease) K76.9: Liver lesion ADDITIONAL CLINICAL INFORMATION: Ordering Provider Reason For Exam: nafld, liver lesions COMPARISON: 10/22/2021. TECHNIQUE: Multiplanar multisequence MR imaging of the abdomen before and following uneventful administration of intravenous contrast according to standard contrast-enhanced protocol. CONTRAST: GADOXETATE DISODIUM 0.25 MOL/L IV SOLN:10 mL FINDINGS: Gastrointestinal: No bowel obstruction or inflammatory process. Liver: There is diffuse hepatic steatosis. Focal liver lesion: *3.3 x 2.9 cm arterial enhancing observation in hepatic segment 7, series9 image 31 which is hyperintense to the liver parenchyma on thehepatobiliary phase imaging with central stellate scar, consistent with focal nodular hyperplasia. *1.5 cm arterial enhancing observation in hepatic segment 6/7, series 9 image 47 that is hyperintense to the hepatic parenchyma on hepaticbiliary phase and consistent with focal nodular hyperplasia. *There is a 1 cm arterial enhancing observation in hepatic segment 8,seen on series 9 image 46 that does not retain contrast on the hepatobiliary phase and is unchanged prior exam, possibly hepatic adenoma. There is an adjacent area of transient hepatic intensity difference, superior to the lesion is unchanged from prior. The previously described enhancing observation just inferior to this region is not seen on the currentstudy. * Hepatobiliary system: No biliary filling defects or irregularity. Gallbladder: Normal. No gallstones. Spleen: No appreciable splenomegaly or suspicious splenic lesion. Pancreas: No imaging evidence of pancreatic ductal dilatation orsuspicious pancreatic lesion or peripancreatic inflammatory change. Kidneys: Renal cysts with no hydronephrosis. Adrenal Glands: No appreciable suspicious adrenal mass. Peritoneal cavity: No lymphadenopathy. No free intraperitoneal fluid. Musculoskeletal: No acute osseous abnormality. IMPRESSION: 1. No substantial change in a 3.3 cm focal nodular hyperplasia inhepatic segment 7 and another 1.5 cm focal nodular hyperplasia hepatic segment6/7. 2. There is a 1 cm arterial enhancing observation in hepatic segment 8that does not retain contrast on the hepatobiliary phase and could representan adenoma, unchanged from the prior examination. 3. Hepatic steatosis. > Interpreting Provider: Chance Castaneda MD on 04/25/2022 12:42 PM Linda Gurrola MEDICAL AND HEALTH SERVICES MANAGER-[employer] MR ORDERABL ES * CREATININE - POCT INTERFACED (04/25/2022 9:46 AM RESIDENT CARE MANAGER RN) Only the most recent of4 resultswithin the time period is included. Creatinine POCT 0.73 0.30 - 1.30 mg/dL 04/25/2022 9:48 AM RESIDENT CARE MANAGER RN [facility] eGFR >90 >90 mL/min/1.7 3 m2 04/25/2022 9:48 AM RESIDENT CARE MANAGER RN [facility] Blood BLOOD SPECIMEN / Unknown 04/25/2022 9:46 AM RESIDENT CARE MANAGER RN 04/25/2022 9:48 AM RESIDENT CARE MANAGER RN Linda Gill Gurrola MEDICAL AND HEALTH SERVICES MANAGER-[employer] [facility] LAB - POINT OF CARE ORDERABLES [place] [address] [place] [address], [facility] [phone] * (ABNORMAL) ALDOSTERONE URINE TIMED (04/22/2022 9:13 AM RESIDENT CARE MANAGER RN) Aldosterone 24 Hour Urine 22.6 1.2 - 28.1 ug/d 04/27/2022 12:41 PM RESIDENT CARE MANAGER RN [facility] ([facility]) Collection Time Hours 24 hr 04/27/2022 12:41 PM [facility]) Comment: Per 24h calculations are provided to aid interpretation for collections with a duration of 24 hours and an average daily urine volume. For specimens with notable deviations in collection time or volume, ratios of analytes to a corresponding urine creatinine concentration may assist in result interpretation. Volume 24 Hour Urine 1700 mL 04/27/2022 12:41 PM [facility]) Creatinine Urine 98 mg/dL 04/27/19 12:41 PM [facility]) Creatinine 24 Hour Urine 1666(H) 700 - 1600 mg/d 04/27/2022 12:41 PM [facility]) Comment: Performed by [facility], [address] [place] [address] www.[employer], Paul Werner MD, PHD, Lab. Director Urine TIMED URINE SPECIMEN / Unknown Timed Urine Volume Measurement / Unknown 04/22/2022 9:13 AM RESIDENT CARE MANAGER RN 04/22/2022 9:21 AM RESIDENT CARE MANAGER RN Skylar Canales PA-C LAB - URINE CHEMIS TRY ORDERABLES [facility]) [address] [place] [address], [facility] * POTASSIUM URINE TIMED (04/22/2022 9:13 AM RESIDENT CARE MANAGER RN) Potassium Urine 21.2 Not Established mmol/L 04/22/2022 9:51 AM [facility] Collection Time Timed Urine 24 Hrs 04/22/2022 9:51 AM [facility] Potassium 24 Hour Urine 36.0 25.0 - 150.0 mmol/24 hrs 04/22/2022 9:51 AM [facility] Volume Timed Urine 1,700 mL 04/22/2022 9:51 AM [facility] Comment:START 04/21/22718- --STOP 04/22/22701---WT 347 HT 5'2 Urine TIMED URINE SPECIMEN / Unknown Timed Urine Volume Measurement / Unknown 04/22/2022 9:13 AM RESIDENT CARE MANAGER RN 04/22/2022 9:21 AM RESIDENT CARE MANAGER RN Skylar Canales PA-C LAB - URINE CHEMIS TRY ORDERABLES Performing Organization Address [facility]/ZIP Co de Phone Number [address] [address], [place] [phone] * URINE MICROSCOPIC ONLY REFLEX TO CULTURE (03/04/2022 10:41 AM RESIDENT CARE MANAGER RN) Reflex Status Culture not indicated 03/04/2022 12:04 PM [facility] RBC UA 0-2 None Seen, 0-2, 3-5 /HPF 03/04/2022 12:04 PM [facility] WBC UA 0-5 None Seen, 0-5 /HPF 03/04/2022 12:04 PM [facility] Squamous Epithelial Cells UA 0-2 None Seen, 0-2, 3-5 /HPF 03/04/2022 12:04 PM [facility] Mucus UA 1+ /LPF 03/04/2022 12:04 PM [facility] Urine URINE SPECIMEN OBTAINED BY CLEAN CATCH PROCEDURE / Unknown Collection / Unknown 03/04/2022 10:41 AM RESIDENT CARE MANAGER RN 03/04/2022 11:17 AM RESIDENT CARE MANAGER RN Narrative [facility] - 03/04/2022 12:04 PM RESIDENT CARE MANAGER RN Skylar Canales PA-C LAB - URINALYSIS O RDERABLES [address] [address], [place] [phone] * PTH INTACT ([facility]) (03/04/2022 10:41 AM RESIDENT CARE MANAGER RN) Only the most recent of2 resultswithin the time period is included. PTH Intact 70.5 8.0 - 77.0 pg/mL 03/04/2022 11:55 AM [facility] Blood BLOOD SPECIMEN / Unknown Lab Venipuncture / Unknown 03/04/2022 10:41 AM RESIDENT CARE MANAGER RN 03/04/2022 11:23 AM RESIDENT CARE MANAGER RN Skylar Canales PA-C LAB - CHEMISTRY OR DERABLES [facility] [address] [place] [address], [facility] [phone] * (ABNORMAL) URINALYSIS REFLEX MICROSCOPIC REFLEX CULTURE (03/04/2022 10:41 AM RESIDENT CARE MANAGER RN) Color UA Yellow Straw, Yellow 03/04/2022 12:04 PM [facility] Clarity UA Clear Clear 03/04/2022 12:04 PM [facility] Specific [place] UA 1.025 1.005 - 1.030 03/04/2022 12:04 PM [facility] pH UA 5.5 5.0 - 8.0 pH 03/04/2022 12:04 PM [facility] Protein UA Negative Negative 03/04/2022 12:04 PM [facility] Glucose UA Negative Negative 03/04/2022 12:04 PM [facility] Ketone UA Negative Negative 03/04/2022 12:04 PM [facility] Bilirubin UA Negative Negative 03/04/2022 12:04 PM [facility] Blood UA Trace(A) Negative 03/04/2022 12:04 PM [facility] Nitrite UA Negative Negative 03/04/2022 12:04 PM [facility] Leukocyte Esterase Negative Negative 03/04/2022 12:04 PM [facility] Urobilinogen UA Negative Negative mg/dL 03/04/2022 12:04 PM [facility] Urine URINE SPECIMEN OBTAINED BY CLEAN CATCH PROCEDURE / Unknown Collection / Unknown 03/04/2022 10:41 AM RESIDENT CARE MANAGER RN 03/04/2022 11:17 AM RESIDENT CARE MANAGER RN Skylar Canales PA-C LAB - URINALYSIS O RDERABLES Performing Organization Address City/[facility]/ZIP Co de Phone Number [address] [address], [place] [phone] * TSH REFLEX FREE T4 (03/04/2022 10:41 AM RESIDENT CARE MANAGER RN) Only the most recent of2 resultswithin the time period is included. TSH 0.926 0.350 - 4.940 uIU/mL 03/04/2022 12:12 PM RESIDENT CARE MANAGER RN [facility] Blood BLOOD SPECIMEN / Unknown Lab Venipuncture / Unknown 03/04/2022 10:41 AM RESIDENT CARE MANAGER RN 03/04/2022 11:23 AM RESIDENT CARE MANAGER RN Skylar Canales PA-C LAB - CHEMISTRY OR DERABLES Performing Organization Address City/[facility]/ZIP Co de Phone Number [address] [address], [place] [phone] * (ABNORMAL) URIC ACID BLOOD (03/04/2022 10:41 AM RESIDENT CARE MANAGER RN) Uric Acid 6.6(H) 2.6 - 6.0 mg/dL 03/04/2022 11:54 AM RESIDENT CARE MANAGER RN [facility] Blood BLOOD SPECIMEN / Unknown Lab Venipuncture / Unknown 03/04/2022 10:41 AM RESIDENT CARE MANAGER RN 03/04/2022 11:23 AM RESIDENT CARE MANAGER RN Skylar Canales PA-C LAB - CHEMISTRY OR DERABLES Performing Organization Address City/[facility]/ZIP Co de Phone Number [address] [address], [place] [phone] * (ABNORMAL) MICROALB/CREAT RATIO URINE RANDOM PANEL (03/04/2022 10:41 AM RESIDENT CARE MANAGER RN) Albumin Random Urine 104.6 Not Established ug/mL 03/04/2022 11:35 AM [facility] Creatinine Urine 94 Not Established mg/dL 03/04/2022 11:35 AM [facility] Urine Albumin/Creati nine Ratio 111(H) <30 mg/g 03/04/2022 11:35 AM [facility] Urine URINE SPECIMEN OBTAINED BY CLEAN CATCH PROCEDURE / Unknown Collection / Unknown 03/04/2022 10:41 AM RESIDENT CARE MANAGER RN 03/04/2022 11:17 AM [facility] Skylar Canales PA-C LAB - URINE CHEMIS TRY ORDERABLES [facility] [address] [place] [phone], [facility] [phone] * RENIN ACTIVITY (03/04/2022 10:41 AM [facility]) Renin 4.3 ng/mL/hr 03/08/2022 9:29 AM [facility] [employer] ([facility]) Comment: INTERPRETIVE INFORMATION: Renin Activity Adult, Normal sodium diet: ??Supine ................. 0.2-1.6 ng/mL/hr ??Upright ................ 0.5-4.0 ng/mL/hr Children, Normal sodium diet, Supine: ?? (1-7 days) ..... 2.0-35.0 ng/mL/hr ??Cord blood ............. 4.0-32.0 ng/mL/hr ??1-12 mos ............... 2.4-37.0 ng/mL/hr ??13 mos-3 yrs ........... 1.7-11.2 ng/mL/hr ??4-5 yrs ................ 1.0- 6.5 ng/mL/hr ??6-10 yrs ............... 0.5- 5.9 ng/mL/hr ??11-15 yrs .............. 0.5- 3.3 ng/mL/hr Children, normal sodium diet, Upright: ??0-3 yrs ................ Not Available ??4-5 yrs ................ Less than or equal to 15 ng/mL/hr ??6-10 yrs ............... Less than or equal to 17 ng/mL/hr ??11-15 yrs .............. Less than or equal to 16 ng/mL/hr Plasma renin activity measures enzyme ability to convert angiotensinogen to angiotensin I and is limited by the availability of angiotensinogen. Plasma renin activity is not an accurate indicator of enzyme activity when angiotensinogen is decreased. This test was developed and its performance characteristics determined by [facility]. It has not been cleared or approved by the US Food and Drug Administration. This test was performed in a CLIA certified laboratory and is intended for clinical purposes. Performed By: [facility] [address] [place] [address] Welder/Fitter: Paul Werner MD, PhD Blood BLOOD SPECIMEN / Unknown Lab Venipuncture / Unknown 03/04/2022 10:41 AM RESIDENT CARE MANAGER RN 03/04/2022 11:17 AM [facility] Skylar Canales PA-C LAB - CHEMISTRY OR DERABLES Performing Organization Address City/State/[facility] Co de Phone Number [facility] [employer] ([facility]) [address] * (ABNORMAL) HEMOGLOBIN A1C [IN-HOUSE TEST] (03/04/2022 10:41 AM [facility]) Only the most recent of2 resultswithin the time period is included. Hemoglobin A1c 5.9(H) <=5.6 % 03/05/2022 10:53 AM [facility] Estimated Average Glucose 123 mg/dL 03/05/2022 10:53 AM [facility] Comment: HbA1c Interpretation: Normal : < 5.7% Pre-diabetes: 5.7-6.4% Diabetes: Equal to or greater than 6.5% Test results diagnostic of diabetes should be repeated for confirmation. Treatment target values recommended by ADA and other clinical organizations should be used to evaluate metabolic control in patients. Reference: [place] Diabetes Association, Standards of Care in Diabetes -2020 In patients 70 years and older consider HbA1c target range of 7.0-7.5% (Reference: Joe A, et al. JUSTINDA. 2012) The Sebia assay for the measurement of HbA1c is a National Glycohemoglobin Standardization Program (NGSP) certified method. HbA1c Interpretation: Normal : < 5.7% Pre-diabetes: 5.7-6.4% Diabetes: Equal to or greater than 6.5% Test results diagnostic of diabetes should be repeated for confirmation. Treatment target values recommended by ADA and other clinical organizations should be used to evaluate metabolic control in patients. Reference: [place] Diabetes Association, Standards of Care in Diabetes -2020 In patients 70 years and older consider HbA1c target range of 7.0-7.5% (Reference: Joe A, et al. JUSTINDA. 2012) The Sebia assay for the measurement of HbA1c is a National Glycohemoglobin Standardization Program (NGSP) certified method. Blood BLOOD SPECIMEN WITH EDTA / Unknown Lab Venipuncture / Unknown 03/04/2022 10:41 AM RESIDENT CARE MANAGER RN 03/04/2022 11:23 AM RESIDENT CARE MANAGER RN Skylar Canales PA-C LAB - CHEMISTRY OR DERABLES Performing Organization Address [facility]/State/[facility] de Phone Number [address] [address], [facility] [phone] * (ABNORMAL) VITAMIN D 25-HYDROXY (03/04/2022 10:41 AM RESIDENT CARE MANAGER RN) Only the most recent of2 resultswithin the time period is included. [facility] Vitamin D, 25 Hydroxy 15.0(L) 30.0 - 80.0 ng/mL 03/04/2022 12:12 PM RESIDENT CARE MANAGER RN [facility] Comment: The recommendations for 25-Hydroxy Vitamin D clinical decision points are as follows: ? Deficient: ? <20.0 ng/mL ? Insufficient: ? 20.0 - 29.9 ng/mL ? Sufficient: ? 30.0 - 100.0 ng/mL ? Potential Toxicity: ??>100 ng/mL Reference: The Endocrine Society Clinical Practice Guidelines. 2011 If the 25-Hydroxy Vitamin D results are inconsitent with clinical evidence, it is recommended that follow-up testing using a method such as LC/MS/MS be performed to confirm the result. ? Blood BLOOD SPECIMEN / Unknown Lab Venipuncture / Unknown 03/04/2022 10:41 AM RESIDENT CARE MANAGER RN 03/04/2022 11:23 AM RESIDENT CARE MANAGER RN Skylar Canales PA-C LAB - CHEMISTRY OR DERABLES Performing Organization Address [facility]/State/[facility] Co de Phone Number [facility] [address] [address], [facility] [phone] * ALDOSTERONE BLOOD (03/04/2022 10:41 AM RESIDENT CARE MANAGER RN) [facility] Aldosterone 10.4 ng/dL 03/06/2022 9:37 PM RESIDENT CARE MANAGER RN [facility] [employer] ([facility]) Comment: INTERPRETIVE INFORMATION: Aldosterone, Serum Reference intervals for age 15 and older: Upright ......... ??4.0 - 31.0 ng/dL Supine .......... ??Less than or equal to 16.0 ng/dL Unspecified ..... ??Less than or equal to 31.0 ng/dL Normal serum levels of aldosterone are dependent on the sodium intake and whether the patient is upright or supine. High sodium intake will tend to suppress serum aldosterone, whereas low sodium intake will elevate serum aldosterone. The reference intervals for serum aldosterone are based on normal sodium intake. Access complete set of age- and/or gender-specific reference intervals for this test in the [facility] Test Directory ([employer]). Performed By: [facility] [employer] [place] [address] [place] [address] Welder/Fitter: Paul Werner MD, PhD Blood BLOOD SPECIMEN / Unknown Lab Venipuncture / Unknown 03/04/2022 10:41 AM RESIDENT CARE MANAGER RN 03/04/2022 11:17 AM RESIDENT CARE MANAGER RN Skylar Canales PA-C LAB - CHEMISTRY OR DERABLES [facility] ([facility]) [address] [place] [address], [facility] * (ABNORMAL) RENAL FUNCTION PANEL (03/04/2022 10:41 AM RESIDENT CARE MANAGER RN) BUN 9 7 - 26 mg/dL 03/04/2022 11:54 AM [facility] Creatinine 0.55(L) 0.56 - 0.96 mg/dL 03/04/2022 11:54 AM [facility] Sodium 138 136 - 145 mmol/L 03/04/2022 11:54 AM [facility] Potassium 3.8 3.5 - 4.5 mmol/L 03/04/2022 11:54 AM [facility] Chloride 102 98 - 107 mmol/L 03/04/2022 11:54 AM [facility] CO2 25 22 - 29 mmol/L 03/04/2022 11:54 AM [facility] Glucose 97 70 - 115 mg/dL 03/04/2022 11:54 AM [facility] Albumin 4.2 3.4 - 5.0 g/dL 03/04/2022 11:54 AM [facility] Calcium 9.9 8.4 - 10.2 mg/dL 03/04/2022 11:54 AM [facility] Phosphorus 3.7 2.9 - 5.1 mg/dL 03/04/2022 11:54 AM [facility] Anion Gap 15 8 - 18 03/04/2022 11:54 AM [facility] BUN/Creatinine Ratio 16 7 - 23 03/04/2022 11:54 AM [facility] Osmolality Calculated 285 270 - 300 mOsm/kg 03/04/2022 11:54 AM [facility] eGFR by CKD-EPI >90 >=90 mL/min/1.7 3 m2 03/04/2022 11:54 AM [facility] Blood BLOOD SPECIMEN / Unknown Lab Venipuncture / Unknown 03/04/2022 10:41 AM RESIDENT CARE MANAGER RN 03/04/2022 11:23 AM RESIDENT CARE MANAGER RN Skylar Canales PA-C LAB - CHEMISTRY OR DERABLES Performing Organization Address City/[facility]/ZIP Co de Phone Number [facility] [address] [place] [address], [facility] [phone] * (ABNORMAL) PROTEIN CREATININE RATIO URINE RANDOM PNL (03/04/2022 10:41 AM RESIDENT CARE MANAGER RN) Protein Urine 18 Not Established mg/dL 03/04/2022 11:35 AM [facility] Creatinine Urine 94 Not Established mg/dL 03/04/2022 11:35 AM [facility] Protein/Creati nine Ratio Urine 0.19(H) <0.10 03/04/2022 11:35 AM [facility] Urine URINE SPECIMEN OBTAINED BY CLEAN CATCH PROCEDURE / Unknown Collection / Unknown 03/04/2022 10:41 AM RESIDENT CARE MANAGER RN 03/04/2022 11:17 AM RESIDENT CARE MANAGER RN Skylar Canales PA-C LAB - URINE CHEMIS TRY ORDERABLES Performing Organization Address City/[facility]/ZIP Co de Phone Number [facility] [address] [place] [address], [facility] [phone] * MAGNESIUM BLOOD (03/04/2022 10:41 AM RESIDENT CARE MANAGER RN) Only the most recent of2 resultswithin the time period is included. Magnesium 2.0 1.6 - 2.6 mg/dL 03/04/2022 11:54 AM [facility] Blood BLOOD SPECIMEN / Unknown Lab Venipuncture / Unknown 03/04/2022 10:41 AM RESIDENT CARE MANAGER RN 03/04/2022 11:23 AM RESIDENT CARE MANAGER RN Skylar Canales PA-C LAB - CHEMISTRY OR DERABLES Performing Organization Address [facility]/State/ZIP Co de Phone Number [address] [address], [facility] [phone] * ALLERGEN RESPIRATORY PROF ([place]) IGE (12/25/2021 10:44 AM CDT) Class Description Blood [facility] INSURANCE BILL Comment: ?Levels of Specific IgE ? Class ??Description of Class ?----- ? < 0.10 ? 0 ? Negative ? 0.10 - ?0.31 ? 0/I ? Equivocal/Low ? 0.32 - ?0.55 ? I ? Low ? 0.56 - ?1.40 ? II ?Moderate ? 1.41 - ?3.90 ? III ? High ? 3.91 - ?? 19.00 ? IV ?Very High ?19.01 - ??100.00 ? V ? Very High ?>100.00 ?Very High IgE 7 6 - 495 IU/mL [facility] INSURANCE BILL Allergen Dermatophagoides pteronyssinus IgE <0.10 Class 0 kU/L [facility] INSURANCE BILL Allergen Dermatophagoides farinae <0.10 Class 0 kU/L [facility] INSURANCE BILL Allergen Cat Dander <0.10 Class 0 kU/L [facility] INSURANCE BILL Allergen Dog Dander <0.10 Class 0 kU/L [facility] INSURANCE BILL Allergen [place] Grass <0.10 Class 0 kU/L [facility] INSURANCE BILL Allergen Enrrique Grass <0.10 Class 0 kU/L [facility] INSURANCE BILL Allergen Cockroach Citizen Of [place] <0.10 Class 0 kU/L [facility] INSURANCE BILL Allergen Penicillin chrysogen <0.10 Class 0 kU/L [facility] INSURANCE BILL Allergen C Herbarum <0.10 Class 0 kU/L [facility] INSURANCE BILL Allergen Aspergillus fumigatus <0.10 Class 0 kU/L [facility] INSURANCE BILL Allergen A Tenuis <0.10 Class 0 kU/L [facility] INSURANCE BILL Allergen Maple <0.10 Class 0 kU/L [facility] INSURANCE BILL Allergen Mountain Elliott <0.10 Class 0 kU/L [facility] INSURANCE BILL Allergen Ophir <0.10 Class 0 kU/L [facility] INSURANCE BILL Allergen Elm <0.10 Class 0 kU/L [facility] INSURANCE BILL Allergen Maple [place] Rice <0.10 Class 0 kU/L [facility] INSURANCE BILL Allergen [place] Tree <0.10 Class 0 kU/L [facility] INSURANCE BILL Allergen White Eduardo <0.10 Class 0 kU/L [facility] INSURANCE BILL Allergen [place] <0.10 Class 0 kU/L [facility] INSURANCE BILL Allergen Pecan [place] <0.10 Class 0 kU/L [facility] INSURANCE BILL Allergen White [place] <0.10 Class 0 kU/L [facility] INSURANCE BILL Allergen Short/Common Ragweed <0.10 Class 0 kU/L [facility] INSURANCE BILL Allergen Greek Thistle <0.10 Class 0 kU/L [facility] INSURANCE BILL Allergen Rough Pigweed <0.10 Class 0 kU/L [facility] INSURANCE BILL Allergen Rough [place] Elder <0.10 Class 0 kU/L [facility] INSURANCE BILL Allergen Mouse Urine <0.10 Class 0 kU/L [facility] INSURANCE BILL 12/25/2021 10:4 4 AM CDT 12/25/2021 Narrative Resulting Agency Comment Lab Testing performed at: [facility] [address] ??[facility] [id number] Reena A Dettenmeier APNP-SQUIRREL MAN LAB - CH EMISTRY ORDERABLES Performing Organization Address City/[facility]/ZIP Co de Phone Number [facility] INSURANCE BILL [address] [place] [address] * COMPLETE PFT (12/17/2021 1:07 PM CDT) Impressions [facility] - 12/17/2021 1:07 PM CDT [facility] DEPARTMENT OF PULMONARY, CRITICAL CARE, AND SLEEP MEDICINE PULMONARY FUNCTION TEST Please see technologist's comments mentioned in the report. INTERPRETATION: SPIROMETRY: ?FVC: normal. ?FEV1: normal. ?FEV1/FVC ratio is normal. BRONCHODILATOR RESPONSE: Not performed. FLOW-VOLUME LOOPS: Inspection of the flow-volume loops shows normal flow-volume loops. LUNG VOLUMES: Lung volumes by body plethysmography show normal total lung volume and normal residual volume DIFFUSION CAPACITY DLCO: Unadjusted for Hb and COHb is normal. DLCO: Corrected for Hb and COHb is not performed. AIRWAY RESISTANCE The airway resistance is normal and the specific conductance is normal. ARTERIAL BLOOD GAS ANALYSIS: Not performed. IMPRESSION: 1. Normal spirometry and lung volumes. 2. Uncorrected DLCO is normal. 3. Bronchodilator response is not performed. 4. There is no previous study available for comparison. Yohannes Gabriel MD Pulmonary Disease & Critical Care Fellow Division of Pulmonary, Critical Care and Sleep Medicine [facility] I have personally reviewed pulmonary function test data and finding. I concur with fellow's note. Kasandra Denny MD Narrative [facility] - 12/17/2021 1:07 PM CDT Yohannes Sheffield MD ? 12/20/2021 ??8:53 AM Reena A Dettenmeier APNP-SQUIRREL MAN RESPIRAT ORY THERAPY ORDERABLES Performing Organization Address [facility] Co de Phone Number [facility] [address] [place] [address], [facility] * BRONCHIAL CHALLENGE WITH METHACHOLINE (12/17/2021 1:07 PM CDT) Impressions [facility] - 12/17/2021 1:07 PM CDT [facility] DEPARTMENT OF PULMONARY, CRITICAL CARE, AND SLEEP MEDICINE METHACHOLINE CHALLENGE TEST Mary Carmen Cross 12/20/2021 Yohannes Sheffield MD INTERPRETATION Methacholine challenge test was performed with incremental doses of methacholine per protocol. There was positive significant decrease noted in the FEV1 and there was positive significant decrease in specific conductance. The PD20 is123.8 ug and PD35 is 20.3 ug. IMPRESSION 1. Borderline bronchial hyper-responsiveness. 2. No prior test is available for comparison. Yohannes Gabriel MD Pulmonary Disease & Critical Care Fellow Division of Pulmonary, Critical Care and Sleep Medicine [facility] I have personally reviewed pulmonary function test data and finding. I concur with fellow's note. Kasandra Denny MD Narrative [facility] - 12/17/2021 1:07 PM CDT Yohannes Sheffield MD ? 12/20/2021 ??8:58 AM Reena Pollock APNP-SQUIRREL MAN PFT [facility] Organization Address City/State/ZIP Co de Phone Number [facility] [address] * Ref to Sleep Specialist - [facility] (11/03/2021 12:45 PM CDT) Jeff Bird MEDICAL AND HEALTH SERVICES MANAGER-SQUIRREL MAN OUTPATIENT REFER RALS * SARS-COV-2 (COVID-19) INTERNAL (02/14/2021 11:00 AM RESIDENT CARE MANAGER RN) COVID-19 PCR Not detected Not detected 02/15/2021 11:22 AM RESIDENT CARE MANAGER RN [facility] MICROBIOLOG[facility] Microbiology SPECIMEN FROM NASOPHARYNGEAL STRUCTURE / Unknown Collection / Unknown 02/14/2021 11:00 AM RESIDENT CARE MANAGER RN 02/14/2021 11:00 AM RESIDENT CARE MANAGER RN Narrative [facility] - 02/15/2021 11:22 AM RESIDENT CARE MANAGER RN This nucleic acid amplification assay performance was validated by [facility]. This test has been authorized by the Food and Drug administration (FDA)under an Emergency??Use Authorization (EUA). This test has been validated in accordance with the FDA's guidance document Policy for Diagnostic Testing in Laboratories Certified to perform High Complexity Testing under CLIA prior to Emergency Use Authorization for Coronavirus Disease-2019 during the Public Health Emergency issued on June 01, 2019. FDA independent review of this validation is pending. This test is only authorized for the duration of time the declaration that circumstances exist justifying the authorization of emergency use of in vitro diagnostic tests for detection of SARS-CoV-2 virus and/or diagnosis of COVID-19 infection under section 564(b)(1) of the Act, 21 U.S.C 360bbb-3 (b)(1), unless the authorization is terminated or revoked sooner. Fact Sheets for this EUA assay are available upon request. Carmen Lee MEDICAL AND HEALTH SERVICES MANAGER-[facility] LAB - MICROBIOLO GY ORDERABLES [facility] [address] [place] [address], [facility] [phone] * CARDIAC EKG ORDER (02/10/2021 10:19 AM RESIDENT CARE MANAGER RN) Narrative 02/10/2021 10:19 AM RESIDENT CARE MANAGER RN Ordered by an unspecified provider. Scanned Document CARDIAC SERVICES ORD ERABLES * EKG 12-LEAD (02/09/2021 11:08 AM RESIDENT CARE MANAGER RN) Ventricular Rate 67 BPM [facility] Atrial Rate 67 BPM [facility] P-R Interval 172 ms [facility] QRS Duration ms 94 ms [facility] Q-T Interval ms 404 ms [facility] QTC Calculation (Bezet) 426 ms [facility] Calculated P [place] 24 degrees [facility] Calculated R [place] 14 degrees [facility] Calculated T [place] 16 degrees [facility] Interpretation EKG NORMAL SINUS RHYTHM NORMAL ECG Confirmed by MD ELSA, [facility] ([id number]), technical writer and editor ZELALEM ROBLES ([id number]) on 02/09/2021 2:18:40 PM [facility] 02/09/2021 11:0 8 AM RESIDENT CARE MANAGER RN 02/09/2021 2:18 PM RESIDENT CARE MANAGER RN Mary Long MD ECG ORDERABLE S Performing Organization Address City/[facility]/ZIP Co de Phone Number [facility] MUSE * BLOOD TYPE VERIFICATION (02/09/2021 11:07 AM RESIDENT CARE MANAGER RN) ABO Rh O POS 02/09/2021 11:32 AM RESIDENT CARE MANAGER RN [facility] BLOOD BANK Blood Bank BLOOD SPECIMEN / Unknown Lab Venipuncture / Unknown 02/09/2021 11:07 AM RESIDENT CARE MANAGER RN 02/09/2021 11:11 AM RESIDENT CARE MANAGER RN Mary Long MD LAB - BLOOD B ANK ORDERABLES Performing Organization Address [facility] Co de Phone Number [facility] BLOOD BANK [address] [place] [address] * TYPE + SCREEN PANEL (02/09/2021 11:04 AM RESIDENT CARE MANAGER RN) ABO Rh O POS 02/09/2021 11:52 AM RESIDENT CARE MANAGER RN [facility] BLOOD BANK Antibody Screen NEG 11:52 AM RESIDENT CARE MANAGER RN [facility] BLOOD BANK Blood Bank BLOOD SPECIMEN / Unknown Lab Venipuncture / Unknown 02/09/2021 11:04 AM RESIDENT CARE MANAGER RN 02/09/2021 11:09 AM RESIDENT CARE MANAGER RN Mary Long MD LAB - BLOOD B ANK ORDERABLES Performing Organization Address [facility] de Phone Number [facility] BLOOD BANK [address] [place] [address] * PTT [facility] (12/02/2020 2:34 PM CDT) APTT 25.0 23.0 - 38.4 Seconds 12/02/2020 3:32 PM CDT [facility] Comment:Suggested therapeuti c range for full dose I.V. unfractionated heparin therapy for venous thromboembolism is 71 to 109 seconds. Blood BLOOD SPECIMEN / Unknown Lab Venipuncture / Unknown 12/02/2020 2:34 PM CDT 12/02/2020 3:17 PM CDT Keith Bojorquez MD LAB - COAGULATION OR DERABLES Performing Organization Address [facility]/ZIP Co de Phone Number [address] [address], [facility] [phone] * PT-INR [facility] (12/02/2020 2:34 PM CDT) PT 13.2 12.1 - 14.8 Seconds 12/02/2020 3:32 PM CDT [facility] INR 1.0 See Comment 12/02/2020 3:32 PM CDT [facility] Comment:The suggested therap eutic range for standard coumadin (warfarin) therapy is an INR of 2.0-3.0. For high-risk patients (Mechanical Mitral Valve Prosthesis, etc.), the suggested prophylactic therapeutic range is an INR of 2.5-3.5. Blood BLOOD SPECIMEN / Unknown Lab Venipuncture / Unknown 12/02/2020 2:34 PM CDT 12/02/2020 3:17 PM CDT Maribel Kitchen MD LAB - COAGULATION OR DERABLES Performing Organization Address [facility] Co de Phone Number [facility] [address] [place] [address], [facility] [phone] * VITAMIN B1 (12/02/2020 2:34 PM CDT) Vitamin B1 Whole Blood 82 70 - 180 nmol/L 12/07/2020 10:09 AM CDT [facility] ([facility]) Comment: INTERPRETIVE INFORMATION: Vitamin B1, Whole Blood This assay measures the concentration of thiamine diphosphate (TDP), the primary active form of vitamin B1. Approximately 90 percent of vitamin B1 present in whole blood is TDP. Thiamine and thiamine monophosphate, which comprise the remaining 10 percent, are not measured. This test was developed and its performance characteristics determined by [facility]. It has not been cleared or approved by the [place] Food and Drug Administration. This test was performed in a CLIA certified laboratory and is intended for clinical purposes. Performed By: [facility] [address] [place] [id number] Welder/Fitter: Amena Guerrero MD Blood BLOOD SPECIMEN / Unknown Lab Venipuncture / Unknown 12/02/2020 2:34 PM CDT 12/02/2020 3:18 PM CDT Keith Bojorquez MD LAB - CHEMISTRY [facility] [address] * FOLATE (12/02/2020 2:34 PM CDT) Folate 9.0 7.0 - 31.4 ng/mL 12/02/2020 4:16 PM CDT [facility] Blood BLOOD SPECIMEN / Unknown Lab Venipuncture / Unknown 12/02/2020 2:34 PM CDT 12/02/2020 3:18 PM CDT Keith Bojorquez MD LAB - CHEMISTRY [facility] [address] [address], [facility] [phone] * BILIRUBIN DIRECT (12/02/2020 2:34 PM CDT) Bilirubin Conjugated 0.2 0.1 - 0.5 mg/dL 12/02/2020 3:44 PM CDT [facility] Blood BLOOD SPECIMEN / Unknown Lab Venipuncture / Unknown 12/02/2020 2:34 PM CDT 12/02/2020 3:18 PM CDT Maribel Kitchen MD LAB - CHEMISTRY [facility] [address] [address], [facility] [phone] * VITAMIN B12 (12/02/2020 2:34 PM CDT) Vitamin B12 806 213 - 816 pg/mL 12/02/2020 4:17 PM CDT [facility] Blood BLOOD SPECIMEN / Unknown Lab Venipuncture / Unknown 12/02/2020 2:34 PM CDT 12/02/2020 3:18 PM CDT Keith Bojorquez MD LAB - CHEMISTRY [facility] [address] [address], [place] [phone] * (ABNORMAL) IRON + TRANSFERRIN PANEL (12/02/2020 2:34 PM CDT) Iron 46 40 - 150 ug/dL 12/02/2020 4:48 PM CDT [facility] Transferrin 301 174 - 382 mg/dL 12/02/2020 4:48 PM CDT [facility] Transferrin Saturation % 12(L) 16 - 50 % 12/02/2020 4:48 PM CDT [facility] TIBC Calculated 376 240 - 450 ug/dL 12/02/2020 4:48 PM CDT [facility] Blood BLOOD SPECIMEN / Unknown Lab Venipuncture / Unknown 12/02/2020 2:34 PM CDT 12/02/2020 3:17 PM CDT Keith Bojorquez MD LAB - CHEMISTRY [facility] [address] [address], [place] [phone] * FERRITIN (12/02/2020 2:34 PM CDT) Ferritin 31 13 - 204 ng/mL 12/02/2020 5:06 PM CDT [facility] Blood BLOOD SPECIMEN / Unknown Lab Venipuncture / Unknown 12/02/2020 2:34 PM CDT 12/02/2020 3:17 PM CDT Keith Bojorquez MD LAB - CHEMISTRY [facility] [address] [address], [place] [phone] * (ABNORMAL) LIPID PROFILE (12/02/2020 2:34 PM CDT) Cholesterol Total 178 <200 mg/dL 12/02/2020 3:44 PM CDT [facility] HDL 53 >40 mg/dL 12/02/2020 3:44 PM T [facility] Comment: ATP III Classification of HDL Cholesterol: ? <40 mg/dL: ??Considered a major risk factor. ? >60 mg/dL: ??Considered a negative risk factor. ? LDL Calculated 88 <100 mg/dL 12/02/2020 3:44 PM T [facility] Comment: ATP III Classification of LDL Cholesterol: ?<100 mg/dL: ??Optimal ? 100 - 129 mg/dL: ??Near Optimal/Above Optimal ? 130 - 159 mg/dL: ??Borderline High ? 160 - 189 mg/dL: ??High ?>190 mg/dL: ??Very High ? Triglycerides 186(H) <150 mg/dL 12/02/2020 3:44 PM T [facility] Comment: ATP III Classification of Triglycerides: ?<150 mg/dL: ??Normal ? 150 - 199 mg/dL: ??Borderline High ? 200 - 400 mg/dL: ??High ?>500 mg/dL: ??Very High Blood BLOOD SPECIMEN / Unknown Lab Venipuncture / Unknown 12/02/2020 2:34 PM CDT 12/02/2020 3:18 PM CDT Keith Bojorquez MD LAB - CHEMISTRY KACY HICKS [facility] [address] [place] [address], [facility] [phone] * PROC FIBROSCAN (10/27/2020 11:38 AM CDT) Narrative Gabriella Moon RN - 10/27/2020 11:38 AM CDT Gabriella Moon RN ? 10/27/2020 12:22 PM Technical difficulties:An Maribel Kitchen MD PROCEDURE/MINOR SURG ICAL ORDERABLES * LAB MISC TEST (03/09/2020) Blood BLOOD SPECIMEN / Unknown Historical Provider LAB SEND OUT * PROC FIBROSCAN (02/03/2020 2:23 PM RESIDENT CARE MANAGER RN) Narrative Tejas Smith MD - 02/03/2020 2:23 PM RESIDENT CARE MANAGER RN Tejas Smith MD ? 02/07/2020 11:02 PM Diagnosis: NAFLD RN verified patient not , no implanted devices and NPO for prior 3 hours. Vital signs taken, procedure explained and consent signed. Date of Exam: 02/03/2020 Liver Stiffness: (LSM, kPa) median: ??22.0 IQR (interquartile range): ?? 3.3 IQR/Median% (ideally < 30%): ??15 CAP (controlled attenuation parameter): ??400 Technical Difficulty: None Ordering Provider: Maribel Kitchen MD Phone Fax Fibroscan interpretation: I have personally reviewed the Fibroscan report and associated tracings. The calculated Liver Stiffness Measurement (LSM, kPa) indicates that: The probability of advanced liver fibrosis is: very high and the probability of complications of portal hypertension is also high. The loss of ultrasound signal, (controlled attenuation parameter, CAP [dB/m]), indicates that the probability of hepatic steatosis is: high. Tejas Smith MD The following criteria are used to indicate the probability of advanced (stage 3-4) fibrosis: < 7.0 kPa: low 7.0-8.9 kPa: low to moderate 9.0-14.9 kPa: moderate 15-20 kPa: high > 20 kPa: very high Liver stiffness > 20 kPa is also associated with a high probability of complications of portal hypertension including varices and ascites. Liver stiffness > 50 kPa is associated with a high risk of variceal bleeding. These interpretations are based on the following published data: Selene PJ, Tomasz M, Venus M, et al. Accuracy of FibroScan controlled attenuation parameter and liver stiffness measurement in assessing steatosis and fibrosis in patients with nonalcoholic fatty liver disease. Gastroenterology 2019;156:3108-0185. Tammi MS, Rae R, Van Carlos Alberto ML, et al. Vibration-controlled transient elastography to assess fibrosis and steatosis in patients with nonalcoholic fatty liver disease. Clin Gastroenterol Hepatol 2019;17:156-163. Note: 1. Fibroscan cannot reliably identify earlier stages of fibrosis (ie distinguish F0 from F1 and F2) and thus a histologic stage cannot be predicted from the Fibroscan reading. 2. Assessing the likelihood of advanced fibrosis in patients with indeterminate liver stiffness measurement (LSM) by Fibroscan (e.g., 8-15 kPa) can be improved by also calculating the FIB4 score (Daviduke et al. Hepatology Communications 2019;3:5538-8136) or NAFLD Fibrosis score (Johnston et al. Clinical Gastroenterology and Hepatology 2019;17:7531-3262. from routine clinical data. 3. Liver stiffness can be increased by factors other than fibrosis including passive congestion, infiltrative processes, active alcoholism, biliary obstruction and marked inflammation. The interpretation of the Fibroscan result provided above may not have taken such clinical factors into account. Disease etiology also influences Fibroscan cutoff values for fibrosis stages and the following cutoffs have been proposed (Shantel et al, Clin Gastro Hepatol 2015; 13:27-36): Cutoffs for Stage 3 and Stage 4 fibrosis respectively: Hepatitis B: >9 and >11.7 kPa Hepatitis C: >9.5 and >12.5 kPa HCV-HIV: >11 and >14 kPa Cholestatic liver diseases: >10 and >17.9 kPa NAFLD/ORANTES: >10 and >14 kPa CAP estimates of steatosis: normal <200 dB/m mild 200 to 250 dB/m moderate 250-290 dB/m substantial > 290 dB/m (Note that Fibroscan is not a quantitative measure of liver fat.) These criteria are estimates and may change as additional supporting data becomes available. [email or web address] Maribel Kitchen MD PROCEDURE/MINOR SURG ICAL ORDERABLES * SONOGRAM - COMPLETE (08/14/2019 1:47 PM CDT) Only the most recent of3 resultswithin the time period is included. Anatomical Region Laterality Modality Other 08/14/2019 1:47 PM CDT Narrative 08/14/2019 2:51 PM CDT ? [facility] Maternal Medicine ? [facility] ?PHONE: ??FAX: Pat. Name: ?MARY CARMEN CROSS Pat. No: ?[id number] Study Date: ?? 08/14/2019 ??1:47pm , Age: ? 1995, 23 Pregnancies: ?? 3, Para 2 Height: ? 61 in Weight: ? 288 lb LMP: ?Unknown GA by Base: ?? 28w4d ?? LUISA: 11/02/2019 GA by US: ? 29w0d ?? LUISA: 10/30/2019 GA Selected: ??28w4d (From Baselin) LUISA: ?11/02/2019 Referring MD: Ede Maldonado MD Sales Account Representative: ??Jackeline Baker RDMS, ALBA CPT4: ? 11782 BMI: ?54.41 Hist/Ind: ? Completed Anatomy Screen ?Maternal Liver Lesion ?Class IV Obesity ?CHTN ?PTD @36wks x2 MEASUREMENTS & AGE ? GROWTH EVALUATION Measurement ??GA ? Range ? Srce %for GA Ratios ----- ---- ------- BPD ??7.3 cm 29w2d (02d3n-32o7m) Hadl BPD 60% FL/BPD 0.76 (0.71 - 0.87) HC ??27.2 cm 29w5d (43r9o-76j9i) Hadl HC ??54% FL/AC ??0.22 (0.20 - 0.24) AC ??25.1 cm 29w2d (13b6q-04f9w) Hadl AC ??63% HC/AC ??1.09 (0.99 - 1.18) FL ?? 5.6 cm 29w2d (56l0n-98u9o) Hadl FL ??55% CI ? 0.75 (0.70 - 0.86) HL ?? 5.0 cm 29w2d (67g5e-74i6i) Errol HL ??61% GA for sonogram 29w0d (67y5l-94k1e) ?? Weight Estimate: based on (BPD,HC,AC,FL) Hadlock ?Weight: 1369 gm (1169-1569gm) Had ? : 3lbs, 0oz ? Normal: 1307 gm (980- 1634gm) Hadl ? Wt% ? 65% for 28w4d Heart Rate: 149 bpm Amniotic Fluid Index: 16.0cm (09.3-23.0) Q1: 6.0cm ??Q2: 4.6cm ??Q3: 1.8cm ??Q4: 3.6cm ?? EVAL, PLACENTA Presentation: cephalic Placenta: anterior Heart Rate: 149 bpm Amniotic Fluid Volume: normal Anatomy!Normal!Abnormal!Suboptimal!Prev. Seen!Comments Cranium ?! ?? x ??! ?! ?! ? x ?! Mdl (CSP/Thal! ?! ?! ?! ? x ?! Ventricles ?? ! ?! ?! ?! ? x ?! Choroid Plexu! ?! ?! ?! ? x ?! Cerebellum ?? ! ?! ?! ?! ? x ?! Cisterna M. ??! ?! ?! ?! ? x ?! Nuchal Fold ??! ?! ?! ?! ? x ?! Profile ?! ?! ?! ?! ? x ?! Nasal Bone ?? ! ?! ?! ?! ? x ?! Lip ?! ?! ?! ?! ? x ?! Spine ?! ?! ?! ?! ? x ?! Lungs ?! ?! ?! ?! ? x ?! 4 Chamber Hea! ?? x ??! ?! ?! ? x ?! LVOT ? ! ?! ?! ?! ? x ?! RVOT ? ! ?! ?! ?! ? x ?! 3 Vessel View! ?! ?! ?! ? x ?! Cross-over ?? ! ?! ?! ?! ? x ?! Ductal Arch ??! ?! ?! ?! ? x ?! Aortic Arch ??! ?! ?! ?! ? x ?! Caval View ?? ! ?! ?! ?! ? x ?! Situs ?! ?! ?! ?! ? x ?! Diaphragm ?! ?! ?! ?! ? x ?! Stomach ?! ?? x ??! ?! ?! ? x ?! Bowel ?! ?! ?! ?! ? x ?! Kidneys ?! ?? x ??! ?! ?! ? x ?! Bladder ?! ?? x ??! ?! ?! ? x ?! 3 Vessel Cord! ?! ?! ?! ? x ?! Cord In! ?! ?! ?! ? x ?! Upper Extremi! ?! ?! ?! ? x ?! Hands ?! ?! ?! ?! ? x ?! Lower Extreme! ?! ?! ?! ? x ?! Feet ? ! ?! ?! ?! ? x ?! External Krista! ?! ?! ?! ? x ?! CLINICAL SUMMARY Study Number: 3 ?? A follow up exam was performed to re-evaluate growth. ??The LUISA is based on prior ultrasound. ??( confirmed ). ?? IMPRESSION: Single, live, IUP 28w4d. ?? Appropriate growth. ?? normal amniotic fluid. ?? No major malformations demonstrated within the limitations of today's exam RECOMMEND: Follow up ultrasound in 4 to 6 weeks to re-evaluate growth and start testing. Thank you for the opportunity to participate in the care of your patient. ?? Annette Sauceda MD <Electronic Signature> ??08/14/2019 02:52pm Taurus Maldonado MD [facility] ORDERABLES * (ABNORMAL) HEPATIC FUNCTION PANEL (04/12/2019 3:14 PM RESIDENT CARE MANAGER RN) Only the most recent of2 resultswithin the time period is included. Protein Total 7.8 6.0 - 8.3 g/dL 020 4:02 PM [facility] Albumin 3.9 3.4 - 5.0 g/dL 04/12/2019 4:02 PM [facility] Bilirubin Total 0.7 0.2 - 1.2 mg/dL 04/03 4:02 PM [facility] Bilirubin Conjugated 0.2 0.0 - 0.5 mg/dL 04/12/2019 4:02 PM [facility] Bilirubin Unconjugated 0.5 Unconjugated Bilirubin is a calculated value: Reference ranges have not been established. mg/dL 04/12/2019 4:02 PM [facility] Alkaline Phosphatase 55 40 - 150 Units/L 04/12/2019 4:02 PM [facility] ALT 12 0 - 55 Units/L 04/12/2019 4:02 PM [facility] AST 16 5 - 34 Units/L 04/12/2019 4:02 PM [facility] Albumin/Globulin Ratio 1.0(L) 1.1 - 2.3 04/12/2019 4:02 PM [facility] Blood BLOOD SPECIMEN / Unknown Lab Venipuncture / Unknown 04/12/2019 3:14 PM RESIDENT CARE MANAGER RN 04/12/2019 3:26 PM RESIDENT CARE MANAGER RN Maribel Kitchen MD LAB - CHEMISTRY [facility] [address] [phone] * MITOCHONDRIAL ANTIBODY SCREEN (01/02/2019 12:36 PM CDT) Pathologist [facility] Mitochondrial M2 Antibody 2.3 0.0 - 20.0 Units 01/04/2019 2:12 PM CDT [facility] Comment: Mitochondrial M2 Antibody Numeric Result Interpretation: ?<20.1 Units: ??Negative ?20.1 - 24.9 Units: ??Equivocal ?>24.9 Units: ??Positive ? Blood BLOOD SPECIMEN / Unknown Lab Venipuncture / Unknown 01/02/2019 12:36 PM CDT 01/02/2019 12:50 PM CDT Maribel Kitchen MD LAB - CHEMISTRY [facility] [address] [phone] * [id number] BLOOD PHENOTYPING PANEL (01/02/2019 12:36 PM CDT) Tcfec-0-Yrfbawnysa n 123 90 - 200 mg/dL 01/04/2019 4:09 PM CDT [facility] ([facility]) Comment: Effective January 28, 2019 Nqzzx-6-Sfllxhqglyl, ??Serum reference interval will be changing to: ? Age ?Male ?Female ?0 - ??7 days ?102 - 186 ?102 - 186 ?8 days ??- 30 days ? 73 - 187 ? 73 - 187 ?? 31 days ??- ??5 years ?86 - 173 ? 86 - 173 ?6 years - 12 years ?99 - 156 ? 99 - 156 ?? 13 years - 40 years ?95 - 164 ?100 - 188 ? >40 years ? 101 - 187 ?101 - 187 Phenotype (PI) MM 01/04/2019 4:09 PM CDT [facility] ([facility]) Comment: ? Phenotype ?? Population ?A-1-AT Concentration ? Incidence % ?Reference Interval ? MM ?86.5% ?96 - 189 ? MS ? 8.0% ?83 - 161 ? MZ ? 3.9% ?60 - 111 ? FM ? 0.4% ?93 - 191 ? SZ ? 0.3% ?42 - ??75 ? SS ? 0.1% ?62 - 119 ? ZZ ? 0.05% ? 16 - ??38 ? FS ? 0.05% ? 70 - 128 ? FZ ?Unknown ?44 - ??88 ? FF ?Unknown ?Unknown Blood BLOOD SPECIMEN / Unknown Lab Venipuncture / Unknown 01/02/2019 12:36 PM CDT 01/02/2019 12:50 PM CDT Narrative [facility] ([facility]) - 01/04/2019 4:09 PM CDT Performed at: ??01 - [facility] [address] ??[id number] Farmworker Animal: Juliocesar Sanders PhD, Phone: ??[phone] Performed at: ??02 - [facility] ??[id number] Farmworker Animal: Hari Smith MD, Phone: ??[phone] Maribel Kitchen MD LAB - CHEMISTRY KACY HICKS [facility] ([facility]) [address] [place] [address], [facility] * MEHDI BLOOD SCREEN W/REFLEX TITER (01/02/2019 12:36 PM CDT) MEHDI Negative 01/03/2019 5:08 PM CDT [facility] ([facility]) Comment: ? Negative ?? <1:80 ? Borderline ??1:80 ? Positive ?? >1:80 Blood BLOOD SPECIMEN / Unknown Lab Venipuncture / Unknown 01/02/2019 12:36 PM CDT 01/02/2019 12:49 PM CDT [facility]) - 01/03/2019 5:08 PM CDT Performed at: ??01 - [facility] ??[id number] Farmworker Animal: Juliocesar Sanders PhD, Phone: ??[phone] Maribel Kitchen MD LAB - CHEMISTRY KACY HICKS [facility] ([facility]) [address] [place] [address] * (ABNORMAL) TRANSFERRIN (01/02/2019 12:36 PM CDT) Transferrin 319 174 - 382 mg/dL 01/02/2019 2:17 PM CDT [facility] Transferrin Saturation % 6(L) 16 - 50 % 01/02/2019 2:17 PM CDT [facility] Blood BLOOD SPECIMEN / Unknown Lab Venipuncture / Unknown 01/02/2019 12:36 PM CDT 01/02/2019 12:50 PM CDT Maribel Kitchen MD LAB - CHEMISTRY KACY HICKS Performing Organization Address [facility]/ZIP Co de Phone Number [address] [phone] * CERULOPLASMIN (01/02/2019 12:36 PM CDT) Pathologist [facility] [place] Ceruloplasmin 42 20 - 60 mg/dL 01/02/2019 1:13 PM CDT [facility] Blood BLOOD SPECIMEN / Unknown Lab Venipuncture / Unknown 01/02/2019 12:36 PM CDT 01/02/2019 12:50 PM CDT Maribel Kitchen MD LAB - CHEMISTRY [facility] [address] [phone] * SMOOTH MUSCLE ANTIBODY (01/02/2019 12:36 PM CDT) F-Actin Antibody IgG 7.5 0.0 - 19.9 Units 01/04/2019 2:12 PM CDT [facility] Comment: F-Actin Antibody Numeric Result Interpretation: ?<20.0 Units: ??Negative ?20.0 - 30.0 Units: ??Weak Positive ?>30.0 Units: ??Moderate to Strong Positive ? Blood BLOOD SPECIMEN / Unknown Lab Venipuncture / Unknown 01/02/2019 12:36 PM CDT 01/02/2019 12:50 PM CDT Maribel Kitchen MD LAB - SEROLOGY ORDER KAMRON Performing Organization Address [facility] de Phone Number [address] [phone] * HEPATITIS B SURFACE ANTIBODY (01/02/2019 12:36 PM CDT) Hepatitis B Virus Surface Antibody Non-react elizabeth Non-react elizabeth 01/02/2019 1:33 PM CDT [facility] Comment: < 8 mIU/mL Hepatitis B surface Antibody (HBsAb). Nonreactive for HBsAb - individual is considered not immune to Hepatitis B Virus infection. Hepatitis B Surface Antibody Quantitative 1.0 <8.0 mIU/mL 01/02/2019 1:33 PM CDT [facility] Comment: Hepatitis B Surface Antibody Numeric Result Interpretation: ? Nonreactive: ?<8.0 mIU/mL ? Indeterminate: ??8.0 - 12.0 mIU/mL ? Reactive: ?>12.0 mIU/mL ? Blood BLOOD SPECIMEN / Unknown Lab Venipuncture / Unknown 01/02/2019 12:36 PM CDT 01/02/2019 12:50 PM CDT Maribel Kitchen MD LAB - CHEMISTRY ORDMolina HICKS Performing Organization Address [facility] [place] [address], [facility] [phone] * HEPATITIS B SURFACE ANTIGEN W RFLX CONFIRMATION (01/02/2019 12:36 PM CDT) Hepatitis B Virus Surface Antigen Non-reacti ve Non-reacti ve 01/02/2019 1:33 PM CDT [facility] Blood BLOOD SPECIMEN / Unknown Lab Venipuncture / Unknown 01/02/2019 12:36 PM CDT 01/02/2019 12:50 PM CDT Maribel Kitchen MD LAB - CHEMISTRY [facility] [address] [phone] * HEPATITIS C ANTIBODY (01/02/2019 12:36 PM CDT) [facility] Hepatitis C Antibody Non-react elizabeth Non-reac tive 01/02/2019 1:33 PM CDT [facility] Comment: Hepatitis C Antibody screen indicates no serologic evidence of past or current infection with Hepatitis C Virus. Patients with unexplained liver disease who are immunocompromised or suspected of having acute Hepatitis C infection may benefit from Nucleic Acid Test (NEETA) for Hepatitis C Viral RNA to confirm Hepatitis C status. Blood BLOOD SPECIMEN / Unknown Lab Venipuncture / Unknown 01/02/2019 12:36 PM CDT 01/02/2019 12:50 PM CDT Maribel Kitchen MD LAB - CHEMISTRY [facility]Y [facility]IC[facility] [address] [phone] * (ABNORMAL) HEPATITIS A ANTIBODY (01/02/2019 12:36 PM CDT) Pathologist [facility] [place] Hepatitis A Virus Antibody Total Positive(A ) Negative 01/03/2019 9:10 AM CDT [facility] ([facility]) Blood BLOOD SPECIMEN / Unknown Lab Venipuncture / Unknown 01/02/2019 12:36 PM CDT 01/02/2019 12:49 PM CDT Narrative [facility] ([facility]) - 01/03/2019 9:10 AM CDT Performed at: ??01 - [facility] [address] [facility], [place], [place] ??[id number] Farmworker Animal: Juliocesar Sanders PhD, Phone: ??[phone] Maribel Kitchen MD LAB - CHEMISTRY ORDE KURT [facility] ([facility]) [address] [place] [address], [facility] * [place] LIVER ELASTOGRAPHY (11/05/2018 2:54 PM CDT) Narrative Tejas Smith MD - 11/05/2018 2:54 PM CDT Tejas Smith MD ? 11/05/2018 ??2:54 PM Diagnosis: Fatty Liver RN verified patient not , no implanted devices and NPO for prior 3 hours. Vital signs taken, procedure explained and consent signed. Date of Exam: 11/05/2018 Liver Stiffness: (E, kPa) median: ??7.6 IQR (interquartile range): ?? 1.0 IQR/Median% (ideally < 30%): ??13 CAP (controlled attenuation parameter): ??396 Technical Difficulty: None Ordering Provider: Charles Amezcua MD Fibroscan interpretation: I have personally reviewed the Fibroscan report and associated tracings. The calculated liver stiffness (E, kPa) indicates that: The probability of advanced liver fibrosis is: low to moderate. The loss of ultrasound signal, (controlled attenuation parameter, CAP [dB/m]), indicates that the probability of hepatic steatosis is: high. Tejas Smith MD The following criteria are used to indicate the probability of advanced (stage 3-4) fibrosis: < 7.0 kPa: low 7.0-8.9 kPa: low to moderate 9.0-14.9 kPa: moderate 15-20 kPa: high > 20 kPa: very high Liver stiffness > 20 kPa is also associated with a high probability of complications of portal hypertension including varices and ascites. Liver stiffness > 50 kPa is associated with a high risk of variceal bleeding. Note: Liver stiffness is increased by factors other than fibrosis including passive congestion, infiltrative processes, active alcoholism, biliary obstruction and marked inflammation. The interpretation of the Fibroscan result provided above may not have taken such factors into account. Disease etiology also influences Fibroscan cutoff values for fibrosis stages and the following cutoffs have been proposed (Shantel et al, Clin Gastro Hepatol 2015; 13:27-36): Cutoffs for Stage 3 and Stage 4 fibrosis respectively: Hepatitis B: >9 and >11.7 kPa Hepatitis C: >9.5 and >12.5 kPa HCV-HIV: >11 and >14 kPa Cholestatic liver diseases: >10 and >17.9 kPa NAFLD/ORANTES: >10 and >14 kPa CAP estimates of steatosis: normal <200 dB/m maybe present 200 to 250 dB/m moderate 250-300 dB/m substantial > 300 dB/m (Note that Fibroscan is not a quantitative measure of liver fat and the risk of NAFLD progression is unrelated to the degree of steatosis.) These criteria are estimates and may change as additional supporting data becomes available. [email or web address] Tejas Jamil MD PROCEDURE/ MINOR SURGICAL ORDERABLES Care Teams Executive Administrative Assistant Relationship Specialty Start Date End Date Jonelle Elam MD [address] [place] [address] [place] [address] PCP - General Family Medicine 10/24/18 Manju Rainey DO [address] [place] [address] Bariatrics 08/11/20 Skylar Canales PA-C [address] [facility] 3[facility] [phone] Physician Manufacturing Production Manager Nephrology 03/04/22
--- OUTSIDE RECORDS SUMMARY | 2024-04-14 17:43 | XMS_ITS | Encounter Summary ---
Author Organization [facility] Address [address] [facility] [place] [address] Care Team Providers Care Cv/Cvn Cv Tsc System Operator Name Role Phone Jonelle Elam MD Primary Care Provider Manju Rainey DO Unavailable [phone] Skylar Canales PA-C Unavailable [phone] Encounter Details Date Type Department Care Team (Latest Contact Info) Description 07/20/2022 Travel Social History Tobacco Use Types Packs/Day [...] on filedocumented in this encounter Care Teams Cv/Cvn Cv Tsc System Operator Relationship Specialty Start Date End Date Jonelle Elam MD [address] [place] [address] PCP - General Family Medicine 10/24/18 Manju Rainey DO [address] [place] [address] Bariatrics 08/11/20 Skylar Canales PA-C [address] [facility] 3[facility] [place] [phone] Physician Operator Maintainer Nephrology 03/04/22 documented as of this encounter
--- OUTSIDE RECORDS SUMMARY | 2024-04-14 17:43 | XMS_ITS | Encounter Summary ---
Author Organization [facility] Address [address] [place] [address] Care Team Providers Care Generator Operator Straight Bevel Gear Name Role Phone Jonelle Elam MD Primary Care Provider Manju Rainey DO Unavailable Skylar Canales PA-C Unavailable [phone] Reason for Visit * Reason Comments Hypertension Follow-up Encounter Details Date Type Department Care Team (Late st Contact Info) Description 08/19/2022 9:00 AM CDT Office Visit [facility] - Nephrology [address] [place] [address], [place] [address] Skylar Canales PA-C [address] [place] [address] [address] [place] [address] Essential hypertension (Primary Dx); BMI 60.0-69.9, adult (HCC); Peripheral arterial disease (HCC) Social History Tobacco Use Types Packs/Day Years [...] (331 lb) 08/19/2022 9:23 AM CDT Height - - Body Mass Index 60.53 07/20/2022 10:12 AM CDT documented in this encounter Progress Notes * Skylar Canales PA-C - 08/19/2022 9:00 AM CDT Hypertension Clinic Note Date of Visit: 08/19/2022 Time of Visit: 9:13 AM Chief Complaint Patient presents with ??? Hypertension Follow-up Subjective: Patient is a 26 year old White/ female who presents for HTN follow up. PMH is also significant for: Patient Active Problem List Diagnosis ??? Essential hypertension Last Assessment & Plan: Condition: stable Discussed target blood pressure. Continue medication as prescribed from PCP/specialist. Take medications at the same time every day.Lifestyle modification advised: DASH diet, reduce stress/anxiety, discussed health weight management, activity as tolerated or advised from PCP, try to avoid alcohol and nicotine. Follow up as scheduled with PCP/specialist. ??? Depressive disorder ??? Prediabetes ??? BMI 60.0-69.9, adult (CMS/HCC) ??? Generalized anxiety disorder ??? Excessive caffeine intake ??? Migraines ??? Frequent headaches ??? Diverticulitis ??? Sleep apnea Has not had a sleep study ??? Cataracts, bilateral Has artificial lens in left eye ??? NAFLD (nonalcoholic fatty liver disease) 02/03/20 Fibroscan CAP 400, LSM 22.0 kPa 10/27/20 Fibroscan CAP 400, LSM 63.1 kPa ??? GERD (gastroesophageal reflux disease) ??? Lumbar herniated disc ??? Uses intrauterine device for control Prev Hx: Patient notes longstanding HTN most likely starting around 14 yoa. Pt with 3 pregnancies, first at 15 yoa, and all complicated by HTN and concerns for possible preeclampsia, all 3 deliveries around 4 weeks early. HTN persisted between each . Medical hx also significant for obesity,has struggled w/ weight her entire life and resistant weight loss despite diet attempts, as well asNAFLD, cataracts, GERD, and newly identified peripheral vascular disease with severe at times LE myalgias. Patient with a very significant, complex family history including early onset HTN, sudden , ASCVD, CKD. Father with aforementioned as well as horseshoe kidney, and brother with obstructive cystic disease requiring nephrectomy early in life. Patient's 9 yo son also with HTN development already. Renasight panel negative for genetic source of HTN. New hx: At last visit MARIAA reviewed with normal appearing kidneys, however diffusely increased velocities inbilateral renal arteries concerning for stenosis >50-60%. Was seen for stenting of bilateral iliac vessels, and patient reports that interventionalist performed angiogram of renal vessels during procedure and did not see any stenotic lesions amenable to stenting. Ovarian cyst was also identified on imaging and pt f/u with ELECTRIC MOTOR CONTROL ASSEMBLER, and cyst has since resolved. Patient has been working hard at home on diet and exercise changes. Her son who also was becoming hypertensive at 9 yoa has already lost weight and dropped BP with changes, and no longer requiring specialist f/u. Pt is hopeful that with improved LE perfusion that she can continue to push toward hergoals. Tolerating current regimen w/o issues, including no CP, shortness of breath, JOLEEN. Pt also reports seeing an registry rn with concern for papilledema, IIH and has plans for f/u. Lumbar puncture completed. Currently aiming to resolve w/ weight loss goals but if persists possibleto be placed on acetazolamide. S Cr 0.6 with microalbuminuria (UACR 111 mg/g) on initial evaluation 03/2022. Normal aldosterone, renin, cortisol. Previously noted borderline lipid panel. A1c 5.9%. Low Vit D. Outpatient Medications Marked as Taking for the 08/19/22 encounter (Office Visit) with [facility] Medication Sig ??? amLODIPine (Norvasc) 10 MG tablet Take 1 (one) tablet by mouth once daily ??? aspirin (Aspirin) 81 MG chew tablet Take 1 (one) tablet by mouth once daily ??? clopidogrel (plaVIX) 75 MG tablet Take 1 (one) tablet by mouth once daily ??? cyanocobalamin (Vitamin B-12) 1000 MCG tablet Take 1 (one) tablet by mouth once daily ??? DULoxetine (Cymbalta) 20 MG capsule Take 1 (one) capsule by mouth once daily ??? fluticasone-salmeterol (Advair/Wixela) 100-50 MCG/ACT inhaler Inhale 1 (one) puff by mouth 2 times daily Rinse mouth/throat well and spit after use. ??? furosemide (Lasix) 40 MG tablet Take 1 (one) tablet by mouth every morning ??? gabapentin (Neurontin) 100 MG capsule Take 1 (one) capsule by mouth 3 times daily ??? Iron, Ferrous Sulfate, 325 (65 Fe) MG TABS Take by mouth once daily ??? losartan (Cozaar) 100 MG tablet Take 1 (one) tablet by mouth once daily ??? metoprolol tartrate IR (Lopressor) 50 MG tablet Take 1 (one) tablet by mouth 2 times daily ??? Multiple Vitamins-Minerals (Womens Multivitamin) TABS Take 1 tablet by mouth once daily ??? Nurtec 75 MG tablet DISSOLVE 1 TABLET ON THE TONGUE EVERY DAY NEEDED FOR MIGRAINE ??? PARAGARD INTRAUTERINE COPPER IU ??? spironolactone (Aldactone) 25 MG tablet Take 1 (one) tablet by mouth once daily ??? Trulicity 0.75 MG/0.5ML injection ADMINISTER 0.75 MG UNDER THE SKIN EVERY WEEK ??? vitamin D, cholecalciferol, 50 MCG (1999 UT) tablet Take 1 (one) tablet by mouth once daily ??? zonisamide (Zonegran) 25 MG capsule Take 1 (one) capsule by mouth once daily Allergies Allergen Reactions ??? Levofloxacin Urticaria and Itching Chest pain, shortness of breath and pain and weakness in legs ??? Cephalexin Rash ??? Nifedipine Other Facial redness, palpitations ??? Lexapro [Escitalopram] Other Caused severe teeth grinding, headaches ??? Labetalol Shortness of Breath Past Surgical History: Procedure Laterality Date ??? Cataract Removal Left 2018 artificial lens ??? COLONOSCOPY ??? PERIPHERAL ARTERY STENT Bilateral ??? Tonsillectomy and Adenoidectomy 2002 ??? Tympanostomy 2001, 2002 Family History Problem Relation Name Age of [...] ??? Autoimmune Disease Son ??? SIDS Son Social History Tobacco Use ??? Smoking status: Never ??? Smokeless tobacco: Never Vaping Use ??? Vaping status: Never Used Substance Use Topics ??? Alcohol use: Not Currently Comment: gets sick when drinks ??? Drug use: Not Currently Comment: marijuana a few times in past Objective: Vitals: 08/19/22 0923 BP: 125/71 Pulse: 75 Resp: 18 Temp: 98 ??F (36.7 ??C) SpO2: 100% Weight: (!) 150.1 kg (331 lb) Estimated body mass index is 61.48 kg/m?? as calculated from the following: Height as of 07/20/22: 1.575 m (5' 2.01 ). Weight as of 07/20/22: 152.5 kg (336 lb 3.2 oz). General: Alert, cooperative, no distress, appears stated age. Head/Neck: Normocephalic, without obvious abnormality, atraumatic. Neck symmetrical, trachea midline. ENT/Mouth: Conjunctivae/corneas clear. MMM. CV: Regular rate and rhythm, S1, S2 normal, no murmur, click, rub or gallop. No lower extremity edema. Respiratory: Clear to auscultation bilaterally. M/S: Back symmetric, no curvature. ROM normal. Extremities normal, atraumatic, no cyanosis. Skin: Skin color normal. No rashes or lesions. Psychiatric: Normal range mood/affect. Data Review Recent Labs Component Name 05/12/22 1633 03/04/22 1041 12/02/20 1434 WBC 9.0 6.9 7.3 RBC 4.24 4.93 4.82 HGB 11.6* 13.1 12.6 HCT 34.4* 40.0 38.7 MCV 81.1 81.1 80.3* MCH 27.4 26.6* 26.1* MCHC 33.7 32.8 32.6 RDWSD 38.5 38.6 40.4 RDW 13.2 13.3 13.8 MPV 9.3* 9.3* 11.2 NRBCABS 0.00 0.00 0.00 NRBCAUTOPCT 0.0 0.0 0.0 NEUTPCT 63.0 63.6 56.9 LYMPHSPCT 25.6 27.6 33.0 MONOPCT 7.0 5.4 7.3 EOSPCT 3.1 1.9 1.8 BASOPCT 0.7 0.9 0.7 IMMGRANSPCT 0.6 0.6 0.3 NEUTABS 5.65 4.38 4.2 LYMPHS 2.29 1.90 2.4 MONO 0.63 0.37 0.53 EOS 0.28 0.13 0.13 BASO 0.06 0.06 0.05 Recent Labs Component Name 05/12/22 1633 04/25/22 0946 03/04/22 1041 04/27/21 1102 12/02/20 1434 04/17/20 1507 04/12/19 1514 BUN 9 - 12 - - CREATININE 0.57 - 0.55* - 0.63 - - NA 135* - 138 - 142 - - POTASSIUM 3.8 - 3.8 - 4.0 - - CL 104 - 102 - 105 - - CO2 25 - 25 - 25 - - CALCIUM 9.5 - 9.9 - 9.9 - - PROT 7.3 - - - 7.2 - 7.8 ALB 3.9 - 4.2 - 4.2 - 3.9 TBILI 0.7 - - - 0.6 - 0.7 ALKPHOS 63 - - - 66 - 55 ALT 27 - - - 33 - 12 AST 20 - - - 19 - 16 ANIONGAP - - BCR - - OSMOLALITY 279 - 285 - 293 - - AGRATIO 1.1 - - - 1.4 - 1.0* EGFR >90 >90 >90 - >90 - - - = values in this interval not displayed. Recent Labs Lab 03/04/22 1041 12/02/20 1434 TSH 0.926 0.811 Recent Labs Component Name 03/04/22 1041 12/02/20 1434 HGBA1C 5.9* 5.7 EAG 123 117 Recent Labs Component Name 03/04/22 1041 12/02/20 1434 PTHINTACT 70.5 25.2 Encounter Diagnoses: 1. Essential hypertension 2. BMI 60.0-69.9, adult ([facility]) 3. Peripheral arterial disease ([facility]) Assessment & Plan: -- Blood Pressure: Discussed extensively with MD given patient's peripheral vessel disease, NAFLD, metabolic syndrome atherosclerotic lesions at young age with thus far no secondary source identified. Will check some autoimmune evaluation for any possible atypical vasculitic picture, homocysteine given PAD. Otherwise, pt doing well with lifestyle goals and Rx mgmt and encouraged to continue. Offered combination of Rx for pill burden however pt reports doing well w/ her own system for administration and prefers to leave as is. -- Renal function: S Cr normal, low degree of proteinuria. -- Medication Changes: none. If acetazolamide needed in future, can adjust diuretic/HTN regimen to balance acid/base etc. -- Return to Clinic in 4 month and as needed. Orders Placed This Encounter ??? HOMOCYSTEINE BLOOD QUANTITATIVE ??? MICROALB/CREAT RATIO URINE RANDOM PANEL ??? COMPLEMENT C3 ??? COMPLEMENT C4 ??? DNA ANTIBODY DOUBLE STRANDED ??? MEHDI BLOOD SCREEN W/REFLEX TITER ??? C-REACTIVE PROTEIN ??? ERYTHROCYTE SEDIMENTATION RATE [facility] INSURANCE BILL [id number] [facility] [id number] JIMMY Zavala PA-C Internal Medicine, Div of Nephrology Hypertension Clinic Collaborating MD: Dr Valarie Landin documented in this encounter Plan of Treatment [...] as of this encounter Visit Diagnoses Diagnosis Essential hypertension- Primary BMI 60.0-69.9, adult (HCC) Body Mass Index 60.0-69.9, adult Peripheral arterial disease (HCC) Unspecified disorders of arteries and arterioles documented in this encounter Care Teams Generator Operator Straight Bevel Gear Relationship Specialty Start Date End Date Jonelle Elam MD [address] [place] [address] R[place]IO Reinoso [address] PCP - General Family Medicine 10/24/18 Manju Rainey DO [address] [place] [address] Bariatrics 08/11/20 Skylar Canales PA-C [address] [facility] 3[facility] [place] [phone] Physician Senior Developer Nephrology 03/04/22 documented as of this encounter
--- OUTSIDE RECORDS SUMMARY | 2024-04-14 17:43 | XMS_ITS | Encounter Summary ---
Author Organization [facility] Address [address] [place] [address] Care Team Providers Care Health Companion Name Role Phone Jonelle Elam MD Primary Care Provider [phone] Manju Rainey DO Unavailable [phone] Skylar Canales PA-C Unavailable Reason for Visit * Reason Comments Refill Request Encounter Details Date Type Department Care Team (Late st Contact Info) Description 01/29/2023 Refill [facility] - Nephrology [address] [place] [address], [place] [address] Skylar Canales PA-C [address] [place] [address] [address] [place] [address] Refill Request Social History Tobacco Use Types [...] on filedocumented in this encounter Care Teams Health Companion Relationship Specialty Start Date End Date Jonelle Elam MD [address] [place] [address] PCP - General Family Medicine 10/24/18 Manju Rainey DO [address] [place] [address] Bariatrics 08/11/20 Skylar Canales PA-C [address] [facility] 3[facility] [place] [phone] Physician Wallpaperer Nephrology 03/04/22 documented as of this encounter
--- OUTSIDE RECORDS SUMMARY | 2024-04-14 17:43 | XMS_ITS | Encounter Summary ---
Author Organization [facility] Address [address] [place] [address] Care Team Providers Care Metal Tube Cutter Name Role Phone Jonelle Elam MD Primary Care Provider [phone] Manju Rainey DO Unavailable [phone] Skylar Canales-Desirae Unavailable [phone] Reason for Visit * Reason Onset Date Comments Medication Prior Auth Request 01/03/2023 Encounter Details Date Type Department Care Team (Late st Contact Info) Description 01/03/2023 Telephone [facility] - Neurology [address] [place] [address], [place] [address] Jeff Bird, AKUA-TECHNOLOGY COORDINATOR [address] [place] [address] [place] [address] Medication Prior Auth Request Social History Tobacco [...] Telephone Encounter - Margy Sharma RN - 01/03/2023 10:28 AM CDT PA renewal initiated with [employer] via covermymeds for [facility]. Included last visit note dated 04/27/2022. Will await a response. [place]OWD: [facility] Approved as below: Approvedtoday CaseId:[id number];Status:Approved;Review Type:Prior Auth;Coverage Start Date:01/03/2023;Coverage End Date:01/03/2024; documented in this encounter Plan of Treatment [...] on filedocumented in this encounter Care Teams Metal Tube Cutter Relationship Specialty Start Date End Date Jonelle Elam MD [address] [place] [address] [place] [address] PCP - General Family Medicine 10/24/18 Manju Rainey DO [address] [place] [address] Bariatrics 08/11/20 Skylar Canales PA-C [address] [facility] [address]L [place] [address] Physician Baby Attendant Nephrology 03/04/22 documented as of this encounter
--- OUTSIDE RECORDS SUMMARY | 2024-04-14 17:43 | XMS_ITS | Data Portability ---
Author Organization [facility], Main Office Address [address] [place] [address] Assessment Encounter Date Assessment Date Assessment LastModified by Organization Details LastModified Time 08/03/2022 08/03/2022 Service was provided using telemedicine. Patient verbally consents to telemedicine services. The patient verbally consents to using virtual check-in and the consent is documented in the medical record prior to using the service. Patient is located at home. Provider is located at [facility]. Names and roles of all persons participating in telemedicine services include Antonette Roy (provider), Deya Campbell (patient). The patient had a 16 minute TeleMedicine consultation via [employer] to discuss the following: [email or web address] Not available 08/03/2022 15:34:08 08/18/2022 08/18/2022 Service was provided using telemedicine. Patient verbally consents to telemedicine services. The patient verbally consents to using virtual check-in and the consent is documented in the medical record prior to using the service. Patient is located at home. Provider is located at [facility]. Names and roles of all persons participating in telemedicine services include Antonette Roy (provider), Deya Campbell (patient). The patient had a 11 minute TeleMedicine consultation via [employer] to discuss the following: [email or web address] Not available 08/18/2022 15:59:02 Plan of Treatment Reminders Order Date Submit Date Provider Last Modified By Organization Details Last Modified Time Details Appointments None recorded. Lab TSH, serum or plasma 2022 023 [email or web address] [facility], [address] [place] [address], [address], 17:50:21 HbA1c (hemoglobin A1c), blood 2022 023 [id number] [facility], [address] [place], [address], 14:06:03 CBC [id number] [place] [address], [address] [place], [address], 3 17:50:48 CMP, serum or plasma [id number] [place] [address], [address] [place], [address], 3 17:51:06 Referral None recorded. Procedures None recorded. Surgeries None recorded. Imaging None recorded. Medication Orders duloxetine 20 mg capsule,del ayed release 2022 023 [id number], [address], [place], [place], [id number], 3 17:31:54 Trulicity 0.75 mg/0.5 mL subcutaneou s pen injector 2022 023 [facility][id number], [address], [place], [place], [id number], 3 15:39:29 Trulicity 1.5 mg/0.5 mL subcutaneou s pen injector 2022 023 [facility] #[id number], [address], [place], [place], [id number], 3 15:57:58 Trulicity 3 mg/0.5 mL subcutaneou s pen injector 2022 023 [facility] #[id number], [address], [place], [place], [id number], 3 11:30:34 Patient TargetsNo targets recorded. Patient Instructions Encounter Date Encounter Id Patient Instructions Last Modified By Organization Details Last Modified Time 08/03/2022 [id number] Due to the COVID-19 (Novel Coronavirus) pandemic, it is within this context (and with the understanding that this method of patient encounter is in the patient? s best interest as well as the health and safety of other patients and the public) that ? telehealth? is being provided for this patient encounter rather than a yjnl-xj-lidn visit. This patient encounter is appropriate at this time. This patient has been advised of the potential risks and limitations of this mode of treatment (including, but not limited to, the absence of in-person examination) and has agreed to be treated in a remote fashion despite these risks. Any and all of the patient? s/patient? s family? s questions on this issue have been answered, and I have made no promises or guarantees to the patient. The patient has also been advised to contact this office for worsening conditions or problems, and seek emergency medical treatment and/or call 911 if the patient deems either necessary. HPI and/or vitals, if listed, were provided by the patient. Due to the nature of telemedicine, the ability to do physical assessment was limited to what can be accomplished by patient directed {{video recording* telepho ne conversation}} based on instruction. Those limits are understood by the patient and myself. Impression is based on history, available information, and physical findings accomplished with {{video assist* telephone conversation}}. Chronic disease/problem list/medication list reviewed and updated where indicated. Discussed diagnosis, plan including risks, benefits and options of treatment. Advised to call for new, worsening or persistent symptoms. Level of patient risk was of {{straight forward complexity moderat e complexity * high complexity}} due to the documented nature of presentation, the information assessment required and the nature of the development of an evaluation and treatment plan as documented. PMH, FHx, SHx, Surgical Hx, Quality Management review carried out and addressed as documented today as part of this visit. Medication list was reviewed and adjusted as indicated. Medication requiring a refill was addressed. Risk and benefits of any new medications were discussed and all questions answered. Not available 08/03/2022 15:30:47 08/18/2022 [id number] Due to the COVID-19 (Novel Coronavirus) pandemic, it is within this context (and with the understanding that this method of patient encounter is in the patient? s best interest as well as the health and safety of other patients and the public) that ? telehealth? is being provided for this patient encounter rather than a tmdg-dp-wouk visit. This patient encounter is appropriate at this time. This patient has been advised of the potential risks and limitations of this mode of treatment (including, but not limited to, the absence of in-person examination) and has agreed to be treated in a remote fashion despite these risks. Any and all of the patient? s/patient? s family? s questions on this issue have been answered, and I have made no promises or guarantees to the patient. The patient has also been advised to contact this office for worsening conditions or problems, and seek emergency medical treatment and/or call 911 if the patient deems either necessary. HPI and/or vitals, if listed, were provided by the patient. Due to the nature of telemedicine, the ability to do physical assessment was limited to what can be accomplished by patient directed {{video recording* telepho ne conversation}} based on instruction. Those limits are understood by the patient and myself. Impression is based on history, available information, and physical findings accomplished with {{video assist* telephone conversation}}. Chronic disease/problem list/medication list reviewed and updated where indicated. Discussed diagnosis, plan including risks, benefits and options of treatment. Advised to call for new, worsening or persistent symptoms. Level of patient risk was of {{straight forward complexity moderat e complexity * high complexity}} due to the documented nature of presentation, the information assessment required and the nature of the development of an evaluation and treatment plan as documented. PMH, FHx, SHx, Surgical Hx, Quality Management review carried out and addressed as documented today as part of this visit. Medication list was reviewed and adjusted as indicated. Medication requiring a refill was addressed. Risk and benefits of any new medications were discussed and all questions answered. [email or web address] Not available 08/18/2022 15:58:36 Reason for Referral None Reported. Results Created Date Observation Date Name Description Value Unit Range Abnormal Flag Note LastModifiedBy Organization Detail LastModifiedTime 07/13/1907/12/2022 CBC W/O DIFFE RENTI [place] white blood cells 7.1 x10'3 /uL 4.2-10 .8 Not Available [facility] (Lab) [address] [place], [address], 07/12/2022 19:22:55 07/13/19 23 07/12/2022 CBC W/O DIFFE RENTI [place] red blood cells 4.69 x10'6 /uL 3.80-5 .20 Not Available [facility] (Lab) [address] [place], [address], 07/12/2022 19:22:55 07/13/19 23 07/12/2022 CBC W/O DIFFE RENTI AL hemoglobin 12.8 g/dL 12.0-1 5.6 Not Available [facility] (Lab) [address] [place], [address], 07/12/2022 19:22:55 07/13/19 23 07/12/2022 CBC W/O DIFFE RENTI [place] hematocrit 42.9 % 35.7-4 5.7 Not Available [facility] (Lab) [address] [place], [address], 07/12/2022 19:22:55 07/13/19 23 07/12/2022 CBC W/O DIFFE RENTI [place] mean red cell volume 91.5 fL 82.0-9 9.0 Not Available [facility] (Lab) [address] [place], [address], 07/12/2022 19:22:55 07/13/19 23 07/12/2022 CBC W/O DIFFE RENTI [place] mean red cell hemoglobin 27.3 pg 27.0-3 3.0 Not Available [facility] (Lab) [address] [place], [address], 07/12/2022 19:22:55 07/13/19 23 07/12/2022 CBC W/O DIFFE RENTI [place] mean RBC HGB concentratio n 29.8 g/dL 31.0-3 6.0 low Not Available [facility] (Lab) [address] [place], [address], 07/12/2022 19:22:55 07/13/19 23 07/12/2022 CBC W/O DIFFE RENTI [place] red cell distribution width 14.1 % 11.8-1 5.5 Not Available [facility] (Lab) [address] [place], [address], 07/12/2022 19:22:55 07/13/19 23 07/12/2022 CBC W/O DIFFE RENTI AL platelets 371 x10'3 /uL 150-40 0 Not Available [facility] (Lab) [address] [place], [address], 07/12/2022 19:22:55 07/13/19 23 07/12/2022 CBC W/O DIFFE RENTI [place] mean platelet volume 10.2 fL 9.0-12 .4 Not Available [facility] (Lab) [address] [place], [address], 07/12/2022 19:22:55 07/13/19 23 07/12/2022 COMPR EHENS TODD METAB OLIC PANEL sodium 137 mmol/ L 137-14 5 Not Available [facility] (Lab) [address] [place], [address], 07/12/2022 19:40:24 07/13/19 23 07/12/2022 COMPR EHENS TODD METAB OLIC PANEL potassium 4.8 mmol/ L 3.5-5. 1 Not Available [facility] (Lab) [address] [place], [address], 07/12/2022 19:40:24 07/13/19 23 07/12/2022 COMPR EHENS TODD METAB OLIC PANEL chloride 100 mmol/ L 98-107 Not Available [facility] (Lab) [address] [place], [address], 07/12/2022 19:40:24 07/13/19 23 07/12/2022 COMPR EHENS TODD METAB OLIC PANEL carbon dioxide 27 mmol/ L 22-30 Not Available [facility] (Lab) [address] [place], [address], 07/12/2022 19:40:24 07/13/19 23 07/12/2022 COMPR EHENS TODD METAB OLIC PANEL anion gap 14.8 mmol/ L 14-22 Not Available [facility] (Lab) [address] [place], [address], 07/12/2022 19:40:24 07/13/19 23 07/12/2022 COMPR EHENS TODD METAB OLIC PANEL glucose 108 mg/dL 70-99 high Not Available [facility] (Lab) [address] [place], [address], 07/12/2022 19:40:24 07/13/19 23 07/12/2022 COMPR EHENS TODD METAB OLIC PANEL BUN 14 mg/dL 8-19 Not Available [facility] (Lab) [address] [place], [address], 07/12/2022 19:40:24 07/13/19 23 07/12/2022 COMPR EHENS TODD METAB OLIC PANEL creatinine 0.65 mg/dL 0.66-1 .25 low Not Available [facility] (Lab) [address] [place], [address], 07/12/2022 19:40:24 07/13/19 23 07/12/2022 COMPR EHENS TODD METAB OLIC PANEL GFR >60 Refer ence Range : [place] ge GFR Healt hy Adult : >60 mL/mi n/1.7 3 m2 Chron ic Kidne y Disea se: 15-60 mL/mi n/1.7 3 m2 Kidne y Failu re: <15/m L/min /1.73 m2 www.n iddk. nih.g ov The MDRD study equat ion has not been valid ated in child angel <18 years of age; pregn ant women ; the elder ly >85 years of age; or in some racia l or ethni c subgr oups, such as Hispa nics. Outsi de the valid ated mai eters , estim ated GFR is less accur ate, requi ring clini adrianne judgm ent on a case- by-ca se basis . Clini adrianne inter preta tion for other races and ages must be made by the clini manjinder. The MDRD study equat ion has not been valid ated for the evalu ation of serum creat inine relat ed to nutri terrance l statu s or medic ation usage . For perso ns <18 years of age, a pedia tric GFR calcu lator is avail able on the [facility] websi te: https ://steph w.sariah faria.o rg/pr ofess ional s/kdo qi/gf r_cal culat or Not Available [facility] (Lab) [address] [place], [address], 07/12/2022 19:40:24 07/13/19 23 07/12/2022 COMPR EHENS TODD METAB OLIC PANEL alkaline phosphatase 63 U/L 38-126 Not Available [facility] (Lab) [address] [place], [address], 07/12/2022 19:40:24 07/13/19 23 07/12/2022 COMPR EHENS TODD METAB OLIC PANEL alanine aminotransfe rase 35 U/L 0-35 Not Available [facility] (Lab) [address] [place], [address], 07/12/2022 19:40:24 07/13/19 23 07/12/2022 COMPR EHENS TODD METAB OLIC PANEL aspartate aminotransfe rase 30 U/L 15-37 Not Available [facility] (Lab) [address] [place], [address], 07/12/2022 19:40:24 07/13/19 23 07/12/2022 COMPR EHENS TODD METAB OLIC PANEL bilirubin, total 0.50 mg/dL 0.20-1 .30 Not Available [facility] (Lab) [address] [place], [address], 07/12/2022 19:40:24 07/13/19 23 07/12/2022 COMPR EHENS TODD METAB OLIC PANEL calcium 9.3 mg/dL 8.4-10 .2 Not Available [facility] (Lab) [address] [place], [address], 07/12/2022 19:40:24 07/13/19 23 07/12/2022 COMPR EHENS TODD METAB OLIC PANEL total protein 7.6 g/dL 6.3-8. 2 Not Available [facility] (Lab) [address] [place], [address], 07/12/2022 19:40:24 07/13/19 23 07/12/2022 COMPR EHENS TODD METAB OLIC PANEL albumin 4.6 g/dL 3.4-5. 0 Not Available [facility] (Lab) [address] [place], [address], 07/12/2022 19:40:24 07/13/19 23 07/12/2022 COMPR EHENS TODD METAB OLIC PANEL globulin 3.0 g/dL 2.6-4. 2 Not Available [facility] (Lab) [address] [place], [address], 07/12/2022 19:40:24 07/13/19 23 07/12/2022 COMPR EHENS TODD METAB OLIC PANEL A/G ratio 1.5 ratio 1.0-2. 0 Not Available [facility] (Lab) [address] [place], [address], 07/12/2022 19:40:24 07/13/19 23 07/12/2022 HEMOG LOBIN A1C HA1C 5.6 % 4.0-6. 0 Diabe regine Duglase chetna Crite martina: <5.7% Consi stent with absen ce of diabe regine 5.7-6 .4% Consi stent with incre ased risk for diabe reigne (pred iabet es) >OR=6 .5% Consi stent with diabe regine REFER ENCE: Diabe regine Care 2016, 39(Landeros ppl.1 ):s13 -s22 Not Available [facility] (Lab) [address] [place], [address], 07/12/2022 19:58:49 07/13/19 23 07/12/2022 TSH thyroid-stim ulating hormone 2.650 uIU/m L 0.465- 4.680 Not Available [facility] (Lab) [address] [place], [address], 07/12/2022 20:06:51 06/30/19 23 06/29/2022 XR, lumba r spine No observ ation record ed. [email or web address] [facility] [address] [place], [address], 07/04/2022 14:20:37 Result Notes None recorded. Problems Name Problem SNOMED Code Status Onset Date Resolution Date Notes Provider Name and Address Organization Details Recorded Time Computed tomography result abnormal 927664412 Active Not Available [facility] 3 09:16:23 Blood chemistry outside reference range 050779714 Active Not Available [facility] 3 09:16:23 Blood glucose outside reference range 289081569 Active Not Available [facility] 3 09:16:23 Anxiety state 144343017 Active Not Available [facility] 3 09:16:23 Abdominal pain 41044838 Active Not Available [facility] 3 09:16:23 Edema 943386796 Active Not Available [facility] 3 09:16:23 Lesion of liver 398536525 Active Not Available [facility] 3 09:16:23 Pain in calf 285867270 Active Not Available [facility] 3 09:16:23 Obesity 556416930 Active Not Available [facility] 3 09:16:23 Swelling of lower leg 044435183 Active Not Available [facility] 3 09:16:23 Hyperlipidemi a 00883157 Active 2017 Not Available [facility] 3 09:16:23 Essential hypertension 17267860 Active 2019 Not Available [facility] 3 09:16:24 Hyperglycemia 62691920 Active Not Available [facility] 3 09:16:24 Fatigue 23101328 Active Not Available [facility] 3 09:16:24 Iron deficiency anemia 70925951 Active Not Available [facility] 3 09:16:24 Mixed anxiety and depressive disorder 515566370 Active 2022 [facility] [address], [address], [address] , [facility] 3 16:28:33 Peripheral vascular disease 406105502 Active 2022 [facility] [address], [address], [address] , [facility] 3 20:09:45 Renal impairment 112502869 Active 2022 [facility] [address], [address], [place], [address] , [facility] 3 17:29:45 Prediabetes 925006839 Active 2022 [facility] [address], [address], [place], [address] , [place] 3 15:23:58 Problem Notes None recorded. Procedures Surgical History None recorded. Imaging Results Imaging Date Name Status LastModified by Organiz ation Details LastModified Time 06/29/2022 XR, lumbar spine completed [email or web address] [facility] [address] [facility], [address], 07/04/2022 14:20:37 Procedure Notes None recorded. Medical Equipment None Reported. Allergies Allergen ID Allergen Name Allergen Category Reaction Reaction Severity Criticality Documentation Date Start Date Code Code System Note Provider Name and Address Organization Details Recorded Time 97435 levofloxa kd medicatio n hives Not available Not available 06/01/20222018 57570 RxNorm Not Available [facility] 3 09:18:50 62781 labetalol medicatio n Not available Not available Not available 06/01/2022 6185 RxNorm Not Available [facility] 3 09:18:50 45920 Keflex medicatio n rash Not available Not available 06/01/202274990 7 RxNorm Not Available [facility] 3 09:18:50 00156 Lexapro medicatio n Not available Not available Not available 07/08/2022 80022 1 RxNorm Pily Calderon RN null, [place] [employer] [facility] 3 17:14:07 Medications Name Sig Start Date Stop Date Status Note LastModified by Organization Details LastModified Time losartan 50 mg tablet Take 1 tablet every day by oral route for 30 days. active Not Available Not Available No t Available celecoxib 200 mg capsule active Not Available Not Available Not Available cyclobenzap rine 10 mg tablet Take 1 tablet 3 times a day by oral route for 30 days. active Not Available Not Available No t Available amoxicillin 500 mg capsule Take 1 capsule every 12 hours by oral route for 7 days. 09/29 completed Not Available Not Available Not Available furosemide 40 mg tablet TAKE 1 TABLET BY MOUTH EVERY MORNING active Not Available Not Available No t Available Vitamin B-2 100 mg tablet TK 4 TS PO D active Not Available Not Available No t Available prednisone 10 mg tablet active Not Available Not Available Not Available Vitamin C 500 mg tablet TAKE 1 TABLET BY MOUTH TWICE DAILY active Not Available Not Available No t Available polyethylen e glycol 3350 17 gram oral powder packet MIX AND DRINK ONE PACKET WITH 4 TO 8 OUNCES OF LIQUID ONCE DAILY. active Not Available Not Available No t Available triamcinolo ne acetonide 0.5 % topical cream APPLY TO LEFT ARM TWICE DAILY active Not Available Not Available No t Available azithromyci n 250 mg tablet TAKE 2 TABLETS (500 MG) BY ORAL ROUTE ONCE DAILY FOR 1 DAY THEN 1 TABLET (250 MG) BY ORAL ROUTE ONCE DAILY FOR 4 DAYS 05/04 completed Not Available Not Available Not Available ibuprofen 800 mg tablet TK 1 T PO Q 8 H PRN P 08/26 completed Not Available Not Available Not Available fluconazole 150 mg tablet active Not Available Not Available Not Available benzonatate 200 mg capsule Take 1 capsule 3 times a day by oral route as needed for 7 days. active Not Available Not Available No t Available sulfamethox azole 400 mg-trimetho prim 80 mg tablet TK 1 T PO BID X 5 DAYS FOR URINARY TRACT INFECTION active Not Available Not Available No t Available valacyclovi r 1 gram tablet Take 2 tablets every 12 hours by oral route for 1 day. active Not Available Not Available No t Available ondansetron HCl 4 mg tablet TK 1 T PO Q 6 H PRF NAUSEA/VO MITING active Not Available Not Available No t Available prednisone 20 mg tablet TAKE 2 TABLETS BY MOUTH DAILY FOR 5 DAYS active Not Available Not Available No t Available Advair Diskus 100 mcg-50 mcg/dose powder for inhalation active Not Available Not Available N ot Available metronidazo le 500 mg tablet TK 1 T PO Q 8 H 06/19 completed Not Available Not Available Not Available nifedipine ER 30 mg tablet,exte nded release Take 1 tablet every day by oral route for 30 days. 07/15 completed Not Available Not Available Not Available clopidogrel 75 mg tablet TAKE 1 TABLET BY MOUTH EVERY DAY active Not Available Not Available No t Available sulfamethox azole 800 mg-trimetho prim 160 mg tablet TAKE 1 TABLET BY MOUTH EVERY 12 HOURS FOR 10 DAYS active Not Available Not Available No t Available tramadol 50 mg tablet 06/19 completed Not Available Not Available Not Available spironolact one 25 mg tablet TAKE 1 TABLET BY MOUTH EVERY DAY active Not Available Not Available No t Available amoxicillin 500 mg tablet TK 1 T PO BID FOR 7 DAYS active Not Available Not Available No t Available ketorolac 0.5 % eye drops INSTILL 1 DROP INTO AFFECTED EYE QID. TO BEGIN 2 DAYS BEFORE SURGERY 12/28 completed Not Available Not Available Not Available Vitamin tablet Take 1 tablet every day by oral route for 90 days. active Not Available Not Available No t Available meloxicam 7.5 mg tablet 02/10 completed Not Available Not Available Not Available losartan 100 mg-hydrochl orothiazide 25 mg tablet Take 1 tablet every day by oral route for 30 days. 06/02 completed Not Available Not Available Not Available amoxicillin 875 mg tablet Take 1 tablet every 12 hours by oral route for 7 days. 09/29 completed Not Available Not Available Not Available famotidine 20 mg tablet active Not Available Not Available Not Available prednisolon e acetate 1 % eye drops,suspe nsion INSTILL 1 DROP INTO SURGICAL EYE TID. TO START AFTER SURGERY 12/28 completed Not Available Not Available Not Available lorazepam 0.5 mg tablet 1 po q8 hours prn anxiety active Not Available Not Available No t Available dicyclomine 20 mg tablet TK 1 T PO Q 6 H NEEDED 08/26 completed Not Available Not Available Not Available ciprofloxac in 0.3 % eye drops INSTILL 1 DROP INTO SURGICAL EYE TID. TO START 2 DAYS BEFORE SURGERY 12/28 completed Not Available Not Available Not Available amlodipine 10 mg tablet TAKE 1 TABLET BY MOUTH EVERY DAY active Not Available Not Available No t Available pantoprazol e 40 mg tablet,michael yed release TAKE 1 TABLET BY MOUTH EVERY DAY FOR GERD active Not Available Not Available No t Available erythromyci n 5 mg/gram (0.5 %) eye ointment 12/28 completed Not Available Not Available Not Available ranitidine 150 mg tablet 06/19 completed Not Available Not Available Not Available buspirone 10 mg tablet TAKE 1 TABLET BY MOUTH TWICE DAILY 06/02 completed Not Available Not Available Not Available promethazin e 25 mg tablet Take 1 tablet every 4 hours by oral route as needed. active Not Available Not Available No t Available metoprolol tartrate 50 mg tablet TAKE 1 TABLET BY MOUTH TWICE DAILY active Not Available Not Available No t Available Polytrim 10,000 unit-1 mg/mL eye drops 2 drops b/l eyes TID x 7 days 02/10 completed Not Available Not Available Not Available gabapentin 300 mg capsule active Not Available Not Available Not Available omeprazole 20 mg capsule,del ayed release TAKE 1 CAPSULE BY MOUTH EVERY DAY. STOP PANTOPRAZ OLE. BEGIN TAKING OMEPRAZOL E AFTER PROCEDURE active Not Available Not Available No t Available aspirin 81 mg chewable tablet CHEW AND SWALLOW 1 TABLET BY MOUTH ONCE A DAY active Not Available Not Available No t Available folic acid 1 mg tablet TK 1 T PO ONCE D active Not Available Not Available No t Available furosemide 20 mg tablet 1/2 to 1 tab po qAM prn edema active Not Available Not Available No t Available gabapentin 100 mg capsule TAKE 1 CAPSULE BY MOUTH THREE TIMES DAILY active Not Available Not Available No t Available ergocalcife rol (vitamin D2) 1,250 mcg (50,000 unit) capsule TAKE ONE CAPSULE BY MOUTH EVERY 7 DAYS active Not Available Not Available No t Available lorazepam 1 mg tablet TAKE 1 TABLET BY MOUTH THREE TIMES DAILY NEEDED active Not Available Not Available No t Available ibuprofen 600 mg tablet TK 1 T PO TID active Not Available Not Available No t Available polyethylen e glycol 3350 17 gram/dose oral powder MIX 1 CAPFUL IN LIQUID AND DRINK QD PRF CONSTIPAT ION active Not Available Not Available No t Available levofloxaci n 500 mg tablet TAKE 1 AND 1/2 TABLETS PO DAILY FOR 7 DAYS 06/19 completed Not Available Not Available Not Available scopolamine 1 mg over 3 days transdermal patch active Not Available Not Available Not Available albuterol sulfate HFA 90 mcg/actuati on aerosol inhaler INHALE 1 PUFF BY MOUTH FOUR TIMES DAILY NEEDED FOR SHORTNESS OF BREATH OR WHEEZING active Not Available Not Available No t Available nifedipine ER 60 mg tablet,exte nded release TK 1 T PO QD 07/15 completed Not Available Not Available Not Available ondansetron 4 mg disintegrat ing tablet DISSOLVE 1 TABLET ON THE TONGUE EVERY 4 HOURS NEEDED FOR NAUSEA OR VOMITING active Not Available Not Available No t Available topiramate 100 mg tablet TAKE 1 TABLET BY MOUTH TWICE DAILY active Not Available Not Available No t Available losartan 100 mg tablet TAKE 1 TABLET BY MOUTH EVERY DAY active Not Available Not Available No t Available metformin ER 500 mg tablet,exte nded release 24 hr TAKE 1 TABLET BY MOUTH EVERY DAY active Not Available Not Available No t Available naproxen 500 mg tablet TK 1 T PO BID PRN active Not Available Not Available No t Available metoclopram tabitha 10 mg tablet TK 1 T PO TID 30 MINUTES BEFORE MEALS AND BEDTIME active Not Available Not Available No t Available neomycin-po lymyxin-hyd rocort 3.5 mg-10,000 unit/mL-1 % ear drops,susp INSTILL 4 DROPS INTO AFFECTED EAR(S) BY OTIC ROUTE 3 TIMES PER DAY active Not Available Not Available No t Available escitalopra m 10 mg tablet TAKE 1 TABLET BY MOUTH EVERY DAY active Not Available Not Available No t Available Necon (28) 0.5 mg/0.75 mg/1 mg-35 mcg tablet TAKE 1 TABLET BY MOUTH EVERY DAY 04/18 completed Not Available Not Available Not Available bupropion HCl XL 150 mg 24 hr tablet, extended release TAKE 1 TABLET BY MOUTH EVERY MORNING 10/30 completed htn Not Available Not Available Not Available zonisamide 25 mg capsule TAKE 1 CAPSULE BY MOUTH EVERY DAY active Not Available Not Available No t Available topiramate 50 mg tablet TAKE 1 TABLET BY MOUTH TWICE DAILY active Not Available Not Available No t Available duloxetine 20 mg capsule,del ayed release TAKE 1 CAPSULE BY MOUTH TWICE DAILY active Not Available Not Available No t Available FeroSul 325 mg (65 mg iron) tablet TAKE 1 TABLET BY MOUTH DAILY active Not Available Not Available No t Available B12 active Not Available Not Availa ble Not Available Vitamins Plus Low Iron 27 mg iron-1 mg tablet Take 1 tablet every day by oral route. active Not Available Not Available No t Available Trulicity 1.5 mg/0.5 mL subcutaneou s pen injector Inject 1.5 mg every week by subcutane ous route. active Not Available Not Available No t Available Trulicity 0.75 mg/0.5 mL subcutaneou s pen injector ADMINISTE R 0.75 MG UNDER THE SKIN EVERY WEEK active Not Available Not Available No t Available Nurtec ODT 75 mg disintegrat ing tablet DISSOLVE 1 TABLET ON THE TONGUE EVERY DAY NEEDED FOR MIGRAINE active Not Available Not Available No t Available Trulicity 3 mg/0.5 mL subcutaneou s pen injector ADMINISTE R 0.5 ML UNDER THE SKIN EVERY WEEK active Not Available Not Available No t Available Vitals Date Recorded Body height Body mass index (BMI) Body weight Body temperature Heart rate Oxygen saturation Oxygen saturation in Arterial blood by Pulse oximetry Systolic blood pressure Diastolic blood pressure Provider Name and Address Organization Details Last Updated DateTime 3 157.48 cm 62.7 kg/m2 815964. 18 g 96.4 [degF] 79 /min 99 % 99 % 122 mm[Hg] 88 mm[Hg] Pily Calderon RN [place] - [employer] [facility] 3 17:13:50 Date Recorded Body height Body mass index (BMI) Body weight Heart rate Systolic blood pressure Diastolic blood pressure Provider Name and Address Organization Details Last Updated DateTime 3 157.48 cm 60.7 kg/m2 296914. 67 g 73 /min 131 mm[Hg] 65 mm[Hg] BOBBY Candelaria Franco [place] [employer] [facility] 3 14:51:30 Date Recorded Body height Body mass index (BMI) Body weight Heart rate Systolic blood pressure Diastolic blood pressure Provider Name and Address Organization Details Last Updated DateTime 3 157.48 cm 60 kg/m2 073711. 3 g 91 /min 118 mm[Hg] 62 mm[Hg] BOBBY Candelaria [place] [employer] [facility] 3 15:32:13 Date Recorded Body height Body mass index (BMI) Body weight Body temperature Heart rate Oxygen saturation Oxygen saturation in Arterial blood by Pulse oximetry Systolic blood pressure Diastolic blood pressure Provider Name and Address Organization Details Last Updated DateTime 3 157.48 cm 59.1 kg/m2 151880. 34 g 96.2 [degF] 84 /min 96 % 96 % 128 mm[Hg] 84 mm[Hg] BOBBY Candelaria Franco [place] [employer] [facility] 3 11:13:59 Date Recorded Body height Body mass index (BMI) Body weight Body temperature Heart rate Oxygen saturation Oxygen saturation in Arterial blood by Pulse oximetry Systolic blood pressure Diastolic blood pressure Provider Name and Address Organization Details Last Updated DateTime 3 157.48 cm 58.3 kg/m2 159740. 97 g 98.5 [degF] 88 /min 96 % 96 % 128 mm[Hg] 80 mm[Hg] BOBBY Candelaria [place] [employer] [facility] 3 11:37:43 Social History Question Answer Notes LastModified by Organizat ion Details LastModified Time Tobacco Smoking Status Never Smoker Not Available [employer] 06/01/2022 09:13:40 What Is Your Level Of Alcohol Consumption? None [id number] Information not available 06/01/2022 If You Are , What Was Your Level Of Alcohol Consumption Prior To ? None [id number] Information not available 06/01/2022 What Is Your Level Of Caffeine Consumption? Occasional [id number] Information not available 06/01/2022 In The 14 Days Before Symptom Onset, Have You Had Close Contact With A Laboratory-confirm ed COVID-19 While That Case Was Ill? No [id number] Information not available 06/01/2022 In The 14 Days Before Symptom Onset, Have You Had Close Contact With A Person Who Is Under Investigation For COVID-19 While That Person Was Ill? No [id number] Information not available 06/01/2022 What Type Of Diet Are You Following? REGULAR [id number] Information not available 06/01/2022 Do You Use Your Seat Belt Or Car Seat Routinely? Yes Information not available 08/03/2022 Do You Participate In Social Media? Yes Information not available 08/03/2022 Do You Feel Stressed (tense, Restless, Nervous, Or Anxious, Or Unable To Sleep At Night)? [id number] Information not available 08/03/2022 Do You Use Any Illicit Or Recreational Drugs? No [id number] Information not available 06/01/2022 Has Tobacco Cessation Counseling Been Provided? No [id number] Information not available 06/01/2022 Do You Have Any Dietary Restrictions? No [id number] Information not available 06/01/2022 Do You Or Have You Ever Used Any Other Forms Of Tobacco Or Nicotine? No [id number] Information not available 06/01/2022 Sex: Unknown Functional Status Question Answer Note LastModified by Organizat ion Details LastModified Time What is your exercise level? None [id number] Information not available 06/01/2022 Mental Status None recorded. Family History Relationship Description Onset Age of this Age Resolved Age Notes LastModified by Organization Details LastModified Time Mother Family history of malignant neoplasm [id number] Not available 06/01/2022 09:13:48 Father Family history of malignant neoplasm [id number] Not available 06/01/2022 09:13:48 Father Congestive heart failure [id number] Not available 06/01/2022 09:13:48 Son Hypertensive disorder [id number] Not available 06/01/2022 09:13:48 Medical History No medical history recorded. Gynecological History Statement/Question Response Abnormal Pap N Sexually Active? Y Dislike of Light during Menstrual Headac he N Menses Monthly Y STIs/STDs N Current Control Method IUD Breast Problems no Discharge no Obstetrics History GPAL:G 3 P 3 0 0 3 Type Value Full Term 3 Living 3 Total 3 Immunizations Vaccine Type Date Status Note Provider Nam e and Address Organization Details Recorded Time Influenza, split virus, trivalent, PF 3 completed Not Available [facility] 06/01/2022 09:18:42 Influenza, split virus, quadrivalent, PF 9 completed Not Available [facility] 06/01/2022 09:18:42 Influenza, split virus, quadrivalent, PF 8 completed Not Available [facility] 06/01/2022 09:18:42 Influenza, split virus, quadrivalent, preservative 6 completed Not Available [facility] 06/01/2022 09:18:43 Influenza, split virus, quadrivalent, PF 7 completed Not Available [facility] 06/01/2022 09:18:43 Influenza, split virus, quadrivalent, PF 4 completed Not Available [facility] 06/01/2022 09:18:43 Influenza, split virus, quadrivalent, PF 0 completed Not Available [facility] 06/01/2022 09:18:43 Influenza, split virus, quadrivalent, PF 5 completed Not Available [facility] 06/01/2022 09:18:43 Past Encounters Encounter ID Performer Location Encounter Start Date Encounter Closed Date Diagnosis/Indication Diagnosis SNOMED-CT Code Diagnosis ICD10 Code Diagnosis Note [id number] [facility] [address] [place] [address] 10/30/2020 00:00:00 10/30/2020 18:19:27 [id number] [facility] Primary [facility] [address] [place] [address] 12/01/2020 00:00:00 12/01/2020 21:48:24 [id number] [facility] [address] [place] [address] 12/29/2020 00:00:00 12/29/2020 17:12:29 [id number] [facility] [address] [place], [place] [address] 05/12/2021 00:00:00 05/12/2021 14:27:53 [id number] [facility] [address] [place], [place] [address] 07/15/2021 00:00:00 07/15/2021 20:39:28 [id number] SUKHI Gongora [facility] [address] [place], [place] [address] 06/02/2022 15:44:21 06/02/2022 17:31:29 Mixed anxiety and depressive disorder 519462532 F41.8 Not well controlled with current dose of Lexapro. Since pt c/o having bruxism with the Lexapro will give trial of Duloxetine instead. Advised to take 1/2 tab of the Lexapro for the next week, then stop. Highly encouraged pt to pursue counseling . Denies any SI/HI at this time. Discussed s/s that warrant emergency evaluation . Obesity 197366161 E66.9 Not improved despite report of dieting/li festyle changes.Ad vised eat 3 meals daily with 1-2 healthy snacks, eliminate caloric drinks, no grazing btw meals, reduce packaged foods, portion control, modificati on of cooking style, low fat/low sugar items, 30 minutes of exercise at least 3x/week, reduce emotional/ stress eating, increase fruits/veg etables, take 15-20 minutes to eat.Encour aged pt to keep food diary for the next 2 weeks. Try to keep daily calorie count btw 0174-0174 calories. May need to consider referral to drapery hand/ nutritioni st as well.Pt would be good candidate for GLP-1 as she also struggles with pcos/hyper glycemia. Peripheral vascular disease 756595455 I73.9 Chronic s/p stent placementC ontinue to f/u with cardiology /vascular as scheduled directed Lesion of liver 03021599 0 K76.9 ChronicMan aged by hepatology . [id number] SUKHI Gongora [facility] Primary Care [facility] [address] [place] [address] 07/08/2022 17:05:57 07/08/2022 17:48:50 Mixed anxiety and depressive disorder 155001380 F41.8 Much improved with starting duloxetine .Stopped lexapro due to c/o having bruxism. Highly encouraged pt to pursue counseling . Denies any SI/HI at this time. Discussed s/s that warrant emergency evaluation .Continue duloxetine 20mg BID Obesity 100487384 E66.9 Minimal improvemen t despite report of dieting/li festyle changes.Ad vised eat 3 meals daily with 1-2 healthy snacks, eliminate caloric drinks, no grazing btw meals, reduce packaged foods, portion control, modificati on of cooking style, low fat/low sugar items, 30 minutes of exercise at least 3x/week, reduce emotional/ stress eating, increase fruits/veg etables, take 15-20 minutes to eat.Try to keep daily calorie count btw 3062-5916 calories. May need to consider referral to drapery hand/ nutritioni st as well.Pt would be good candidate for GLP-1 as she also struggles with pcos/hyper glycemia. Poor candidate for metformin d/t renal impairment . Peripheral vascular disease 534351880 I73.9 Chronic s/p stent placementC ontinue to f/u with cardiology /vascular as scheduled directed. Lesion of liver 64566989 0 K76.9 ChronicMan aged by hepatology . Renal impairment 9609404 03 N28.9 New problem per patient reportDue to risk of worsening renal function, advised pt to stop taking metformin. [id number] SUKHI Gongora [facility] Primary Care [facility] [address] [facility] [place] [address] 08/03/2022 14:47:39 08/03/2022 16:15:27 Obesity 694725333 E66.9 Minimal improvemen t despite report of dieting/li festyle changes.Ad vised eat 3 meals daily with 1-2 healthy snacks, eliminate caloric drinks, no grazing btw meals, reduce packaged foods, portion control, modificati on of cooking style, low fat/low sugar items, 30 minutes of exercise at least 3x/week, reduce emotional/ stress eating, increase fruits/veg etables, take 15-20 minutes to eat. Try to keep daily calorie count btw 7977-1848 calories. Pt would be good candidate for GLP-1 as she also struggles with pcos/hyper glycemia. Poor candidate for metformin d/t renal impairment . Unable to take phentermin e d/t known vascular issues. Due to weight, htn, chronic peripheral vascular disease and known renal impairment , pt is at very high risk for developing full Type 2 Diabetes, heart disease and advancing kidney disease. GLP-1s have been shown to have some protective qualities which can reduce risks associated with the aforementi oned disease processes. Mixed anxi ety and depressive disorder 775676493 F41.8 Much improved with starting duloxetine .Stopped lexapro due to c/o having bruxism. Highly encouraged pt to pursue counseling . Denies any SI/HI at this time. Discussed s/s that warrant emergency evaluation .Continue duloxetine 20mg BID Renal impairment 5347408 03 N28.9 Creat 0.65 (07/12/22)D ue to risk of worsening renal function, advised pt to stop taking metformin. Trulicity should help with insulin resistance and reduce risk of worsening renal dysfunctio n. Peripheral vascular disease 858785509 I73.9 Chronic s/p stent placementC ontinue to f/u with cardiology /vascular as scheduled directed. Lesion of liver 77372715 0 K76.9 ChronicMan aged by hepatology . Prediabetes 683393423 R7 3.03 Improving slightly with diet/exerc ise, but needs to lose a substantia l amount of weight to reduce diabetes risk factors, cardiac factors.A1 C 5.7 (07/15/21); 5.6 (07/12/22)D iscussed need for regular exercise, increase intake of water/vege tables/fib er. Decrease intake of carbs, especially white rice/pasta /flour/edwin ad/sugar.P t would be good candidate for GLP-1 as she also struggles with pcos/hyper glycemia. Poor candidate for metformin d/t renal impairment . Unable to take phentermin e d/t known vascular issues. Due to weight, htn, chronic peripheral vascular disease and known renal impairment , pt is at very high risk for developing full Type 2 Diabetes, heart disease and advancing kidney disease. GLP-1s have been shown to have some protective qualities which can reduce risks associated with the aforementi oned disease processes. Will start trial of trulicity 0.75mg weekly. [id number] SUKHI Gongora [facility] [address] [place] [address] 08/18/2022 15:24:00 08/18/2022 16:33:05 Prediabetes 944582965 R73.03 Improved slightly with diet/exerc ise, but needs to lose a substantia l amount of weight to reduce diabetes risk factors, cardiac factors.A1 C 5.7 (07/15/21); 5.6 (07/12/22)D iscussed need for regular exercise, increase intake of water/vege tables/fib er. Decrease intake of carbs, especially white rice/pasta /flour/edwin ad/sugar.P t would be good candidate for GLP-1 as she also struggles with pcos/hyper glycemia. Poor candidate for metformin d/t renal impairment . Unable to take phentermin e d/t known vascular issues. Due to weight, htn, chronic peripheral vascular disease and known renal impairment , pt is at very high risk for developing full Type 2 Diabetes, heart disease and advancing kidney disease. GLP-1s have been shown to have some protective qualities which can reduce risks associated with the aforementi oned disease processes. Continue with trulicity 0.75mg weekly for 2 more weeks, then increase to 1.5mg at the end of the month. Obesity 914629203 E66.9 Minimal improvemen t despite report of dieting/li festyle changes.Ad vised eat 3 meals daily with 1-2 healthy snacks, eliminate caloric drinks, no grazing btw meals, reduce packaged foods, portion control, modificati on of cooking style, low fat/low sugar items, 30 minutes of exercise at least 3x/week, reduce emotional/ stress eating, increase fruits/veg etables, take 15-20 minutes to eat. Try to keep daily calorie count btw 3700-2676 calories. Continue with GLP-1 as she also struggles with pcos/hyper glycemia. Poor candidate for metformin d/t renal impairment . Unable to take phentermin e d/t known vascular issues, htn. Due to weight, htn, chronic peripheral vascular disease and known renal impairment , pt is at very high risk for developing full Type 2 Diabetes, heart disease and advancing kidney disease. GLP-1s have been shown to have some protective qualities which can reduce risks associated with the aforementi oned disease processes. Renal impairment 3499965 03 N28.9 Creat 0.65 (07/12/22)D ue to risk of worsening renal function, advised pt to stop taking metformin. Trulicity should help with insulin resistance and reduce risk of worsening renal dysfunctio n. Mixed anxi ety and depressive disorder 204119743 F41.8 Much improved with starting duloxetine .Stopped lexapro due to c/o having bruxism. Highly encouraged pt to pursue counseling . Denies any SI/HI at this time. Discussed s/s that warrant emergency evaluation .Continue duloxetine 20mg BID Bereavement 32552101 Z63 .4 New problemGri eving of step-siste r, stressing about pending divorce.Hi ghly encouraged pt to consider counseling .Continue with mental health medication s as directed. [id number] SUKHI Gongora [facility] Primary Care [address] [place] [address] 09/29/2022 11:09:11 09/29/2022 11:36:21 Prediabetes 075073531 R73.03 Improved slightly with diet/exerc ise, but needs to lose a substantia l amount of weight to reduce diabetes risk factors, cardiac factors.A1 C 5.7 (07/15/21); 5.6 (07/12/22)D iscussed need for regular exercise, increase intake of water/vege tables/fib er. Decrease intake of carbs, especially white rice/pasta /flour/edwin ad/sugar.P t would be good candidate for GLP-1 as she also struggles with pcos/hyper glycemia. Poor candidate for metformin d/t renal impairment . Unable to take phentermin e d/t known vascular issues. Due to weight, htn, chronic peripheral vascular disease and known renal impairment , pt is at very high risk for developing full Type 2 Diabetes, heart disease and advancing kidney disease. GLP-1s have been shown to have some protective qualities which can reduce risks associated with the aforementi oned disease processes. Will increase Trulicity to 3.0mg weekly Obesity 514264551 E66.9 ImprovingD own 20# since July with starting TrulicityA dvised eat 3 meals daily with 1-2 healthy snacks, eliminate caloric drinks, no grazing btw meals, reduce packaged foods, portion control, modificati on of cooking style, low fat/low sugar items, 30 minutes of exercise at least 3x/week, reduce emotional/ stress eating, increase fruits/veg etables, take 15-20 minutes to eat. Try to keep daily calorie count btw 8488-0950 calories. Continue with GLP-1 as she also struggles with pcos/hyper glycemia. Poor candidate for metformin d/t renal impairment . Unable to take phentermin e d/t known vascular issues, htn. Due to weight, htn, chronic peripheral vascular disease and known renal impairment , pt is at very high risk for developing full Type 2 Diabetes, heart disease and advancing kidney disease. GLP-1s have been shown to have some protective qualities which can reduce risks associated with the aforementi oned disease processes. Bereavement 54467711 Z63 .4 No change since last visit.Grie ving of step-siste r, stressing about pending divorce.Hi ghly encouraged pt to consider counseling .Continue with mental health medication s as directed. Renal impairment 1304906 03 N28.9 ChronicCre at 0.65 (07/12/22)D ue to risk of worsening renal function, advised pt unable to take metformin. Trulicity should help with insulin resistance and reduce risk of worsening renal dysfunctio n. Mixed anxi ety and depressive disorder 379193539 F41.8 Stable with duloxetine .Stopped lexapro due to c/o having bruxism. Highly encouraged pt to pursue counseling . Denies any SI/HI at this time. Discussed s/s that warrant emergency evaluation .Continue duloxetine 20mg BID Divorce pr oceedings pending 124624817 Z63.5 StablePt reports cordial relationsh ip with estranged .Re ports she is seeing someone new. [id number] SUKHI Gongora [facility] [address] [place] [address] 10/27/2022 11:21:52 10/27/2022 13:57:22 Prediabetes 087243696 R73.03 Improving with Trulicity 3mg weekly.Onl y got slight improvemen t with diet/exerc ise alone, but needs to lose a substantia l amount of weight to reduce diabetes risk factors, cardiac factors.A1 C 5.7 (07/15/21); 5.6 (07/12/22)D iscussed need for regular exercise, increase intake of water/vege tables/fib er. Decrease intake of carbs, especially white rice/pasta /flour/edwin ad/sugar.P t would be good candidate for GLP-1 as she also struggles with pcos/hyper glycemia. Poor candidate for metformin d/t renal impairment . Unable to take phentermin e d/t known vascular issues. Due to weight, htn, chronic peripheral vascular disease and known renal impairment , pt is at very high risk for developing full Type 2 Diabetes, heart disease and advancing kidney disease. GLP-1s have been shown to have some protective qualities which can reduce risks associated with the aforementi oned disease processes. Continue Trulicity to 3.0mg weekly Obesity 261229383 E66.9 ImprovingD own 24# since July with starting TrulicityA dvised eat 3 meals daily with 1-2 healthy snacks, eliminate caloric drinks, no grazing btw meals, reduce packaged foods, portion control, modificati on of cooking style, low fat/low sugar items, 30 minutes of exercise at least 3x/week, reduce emotional/ stress eating, increase fruits/veg etables, take 15-20 minutes to eat. Try to keep daily calorie count btw 3667-4049 calories. Continue with GLP-1 as she also struggles with pcos/hyper glycemia. Poor candidate for metformin d/t renal impairment . Unable to take phentermin e d/t known vascular issues, htn. Due to weight, htn, chronic peripheral vascular disease and known renal impairment , pt is at very high risk for developing full Type 2 Diabetes, heart disease and advancing kidney disease. GLP-1s have been shown to have some protective qualities which can reduce risks associated with the aforementi oned disease processes. Renal impairment 3111342 03 N28.9 ChronicCre at 0.65 (07/12/22)D ue to risk of worsening renal function, advised pt unable to take metformin. Trulicity should help with insulin resistance and reduce risk of worsening renal dysfunctio n. Mixed anxi ety and depressive disorder [id number] F41.8 Stable with duloxetine .Stopped lexapro due to c/o having bruxism. Highly encouraged pt to pursue counseling . Denies any SI/HI at this time. Discussed s/s that warrant emergency evaluation .Continue duloxetine 20mg BID Divorce pr oceedings pending [id number] Z63.5 StablePt reports cordial relationsh ip with estranged .Re ports she is seeing someone new. Health Concerns Section Related Observation LastModified by Organization Detai ls LastModified Time None Recorded Concern Status LastModified by Organization Details LastModified Time None Recorded Advance Directives Directive None Recorded Payers Encounter Date Sequence Insurance Name Policy Number Policy Mcconnell Covered Member ID Mcconnell Member ID Guarantor Name 07/08/2022 1 [facility] (MEDICAID HMO) [id number] Deya Campbell [id number] Deya Campbell 08/03/2022 1 [facility] [place] ([place]) [id number] Deya Campbell [id number] Deya Campbell 08/18/2022 1 [facility] (MEDICAID HMO) [id number] Deya Campbell [id number] Deya Campbell 09/29/2022 1 [facility] (MEDICAID HMO) [id number] 0003 Deya Campbell [id number] Deya Campbell 10/27/2022 1 [facility] [place] [id number] 0003 Deya Campbell [id number] Deya Campbell Notes Date Note Type Note Provider Name and Address Organization Details Recorded Time 07/08/2022 text/html 07/08/22: 1. Pt in office for 4 week f/u appt. Pt states the duloxetine seems to be helping everything. Pt states it seems to be more focused. States it seems to be helping her manage her snacking better as well.2. Pt states since last visit she has had stents put in her legs for the vascular disease.3. Pt states she had also gotten a lumbar puncture to evaluate for excess CSF around her brain. States she is still waiting for the results.4. Pt states that she was seeing a weight loss doctor and they started her on metformin to help her pcos and weight loss. Pt states she tried taking it, but the entire time she was taking it made her kidneys hurt. States the pain went away. States she is also concerned about the fact that the vascular surgeon told her that the blood vessels in her kidney are really small. 06/02/22: 1. Pt presents for telehealth video/phone conference. Verbal consent witnessed by medical underwriter name Antonette Roy (provider).2. Pt presents for problem visit with c/o struggling with her anxiety and depression. States she normally likes her Lexapro, but feels like it's causing her clench her jaw and grind her teeth throughout the day and night. States she recently broke off one of her teeth. States sx went away when she stopped the Lexapro. Pt states that her mother takes the same medication and is having the same sx.3. Pt states that she had stent put in a little while ago and had a lot of pain with it. States pain is better, but she is still having a lot of swelling in her ankles.4. Pt states she is considering surgery for weight loss because the metformin isn't allowing her to lose weight fast enough. Reports she isn't working out since she had the stents placed. 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 Antonette Roy, EYEGLASS CUTTER [address] [facility] [facility] [address], [place], [address], [facility] [employer] 07/08/2022 20:59:49 08/03/2022 text/html 08/03/22: 1. Pt presents for telehealth video/phone conference. Verbal consent witnessed by medical staff and Antonette Roy (provider).2. Pt presents for f/u on lab results.3. Pt states things between her and spouse are not doing well. States they are talking and trying to work through things.4. 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 07/08/22: 1. Pt in office for 4 week f/u appt. Pt states the duloxetine seems to be helping everything. Pt states it seems to be more focused. States it seems to be helping her manage her snacking better as well.2. Pt states since last visit she has had stents put in her legs for the vascular disease.3. Pt states she had also gotten a lumbar puncture to evaluate for excess CSF around her brain. States she is still waiting for the results.4. Pt states that she was seeing a weight loss doctor and they started her on metformin to help her pcos and weight loss. Pt states she tried taking it, but the entire time she was taking it made her kidneys hurt. States the pain went away. States she is also concerned about the fact that the vascular surgeon told her that the blood vessels in her kidney are really small. 06/02/22: 1. Pt presents for telehealth video/phone conference. Verbal consent witnessed by medical underwriter name Antonette Roy (provider).2. Pt presents for problem visit with c/o struggling with her anxiety and depression. States she normally likes her Lexapro, but feels like it's causing her clench her jaw and grind her teeth throughout the day and night. States she recently broke off one of her teeth. States sx went away when she stopped the Lexapro. Pt states that her mother takes the same medication and is having the same sx.3. Pt states that she had stent put in a little while ago and had a lot of pain with it. States pain is better, but she is still having a lot of swelling in her ankles.4. Pt states she is considering surgery for weight loss because the metformin isn't allowing her to lose weight fast enough. Reports she isn't working out since she had the stents placed. 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 Antonette Roy, SUKHI [address] [facility], [place], [address], [place] [facility] [employer] 08/03/2022 17:26:52 08/18/2022 text/html 08/18/22: 1. Pt presents for telehealth video/phone conference. Verbal consent witnessed by Pily Hercules RN and Antonette Roy (provider).2. Pt presents for 2 week f/u appt. Pt states the Trulicity is working well for her. Pt states she knows when she is full now. States she feels like her clothes are fitting different. Pt states that she isn't mindlessly eating or eating fast food.3. Pt states she thinks she is likely going to get a divorce. Pt states that (Francis) is still living in the same house, but he no longer wants to be .4. Pt states her step-sister on Mother's Day. 08/03/22: 1. Pt presents for telehealth video/phone conference. Verbal consent witnessed by medical staff and Antonette Roy (provider).2. Pt presents for f/u on lab results.3. Pt states things between her and spouse are not doing well. States they are talking and trying to work through things.4. 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 07/08/22: 1. Pt in office for 4 week f/u appt. Pt states the duloxetine seems to be helping everything. Pt states it seems to be more focused. States it seems to be helping her manage her snacking better as well.2. Pt states since last visit she has had stents put in her legs for the vascular disease.3. Pt states she had also gotten a lumbar puncture to evaluate for excess CSF around her brain. States she is still waiting for the results.4. Pt states that she was seeing a weight loss doctor and they started her on metformin to help her pcos and weight loss. Pt states she tried taking it, but the entire time she was taking it made her kidneys hurt. States the pain went away. States she is also concerned about the fact that the vascular surgeon told her that the blood vessels in her kidney are really small. 06/02/22: 1. Pt presents for telehealth video/phone conference. Verbal consent witnessed by medical underwriter name Antonette Roy (provider).2. Pt presents for problem visit with c/o struggling with her anxiety and depression. States she normally likes her Lexapro, but feels like it's causing her clench her jaw and grind her teeth throughout the day and night. States she recently broke off one of her teeth. States sx went away when she stopped the Lexapro. Pt states that her mother takes the same medication and is having the same sx.3. Pt states that she had stent put in a little while ago and had a lot of pain with it. States pain is better, but she is still having a lot of swelling in her ankles.4. Pt states she is considering surgery for weight loss because the metformin isn't allowing her to lose weight fast enough. Reports she isn't working out since she had the stents placed. 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 Antonette Roy, EYEGLASS CUTTER [address] [facility] [facility] [address], [place], [address], [place] [facility] [employer] 08/18/2022 18:10:21 09/29/2022 text/html 09/29/22: 1. Pt i n office for 6 week f/u appt. Pt states things are still a little rough after her step-sister . Pt states they held a memorial service, but still haven't gotten many answers.2. Pt states she is feeling good with the Trulicity. Says weight on scale hasn't gone down much, but she feels like her clothes fit differently.3. Pt states her mood is better, despite personal stressors with her estranged , working a lot, and trying to manage the kids' schedules. 08/18/22: 1. Pt presents for telehealth video/phone conference. Verbal consent witnessed by Pily Hercules RN and Antonette Roy (provider).2. Pt presents for 2 week f/u appt. Pt states the Trulicity is working well for her. Pt states she knows when she is full now. States she feels like her clothes are fitting different. Pt states that she isn't mindlessly eating or eating fast food.3. Pt states she thinks she is likely going to get a divorce. Pt states that (Francis) is still living in the same house, but he no longer wants to be .4. Pt states her step-sister on Mother's Day. 08/03/22: 1. Pt presents for telehealth video/phone conference. Verbal consent witnessed by medical staff and Antonette Roy (provider).2. Pt presents for f/u on lab results.3. Pt states things between her and spouse are not doing well. States they are talking and trying to work through things.4. 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 07/08/22: 1. Pt in office for 4 week f/u appt. Pt states the duloxetine seems to be helping everything. Pt states it seems to be more focused. States it seems to be helping her manage her snacking better as well.2. Pt states since last visit she has had stents put in her legs for the vascular disease.3. Pt states she had also gotten a lumbar puncture to evaluate for excess CSF around her brain. States she is still waiting for the results.4. Pt states that she was seeing a weight loss doctor and they started her on metformin to help her pcos and weight loss. Pt states she tried taking it, but the entire time she was taking it made her kidneys hurt. States the pain went away. States she is also concerned about the fact that the vascular surgeon told her that the blood vessels in her kidney are really small. 06/02/22: 1. Pt presents for telehealth video/phone conference. Verbal consent witnessed by medical underwriter name Antonette Roy (provider).2. Pt presents for problem visit with c/o struggling with her anxiety and depression. States she normally likes her Lexapro, but feels like it's causing her clench her jaw and grind her teeth throughout the day and night. States she recently broke off one of her teeth. States sx went away when she stopped the Lexapro. Pt states that her mother takes the same medication and is having the same sx.3. Pt states that she had stent put in a little while ago and had a lot of pain with it. States pain is better, but she is still having a lot of swelling in her ankles.4. Pt states she is considering surgery for weight loss because the metformin isn't allowing her to lose weight fast enough. Reports she isn't working out since she had the stents placed. 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 Antonette Roy, EYEGLASS CUTTER [address] [facility], [place], [address], [place] [facility] [employer] 09/29/2022 13:33:25 10/27/2022 text/html 10/27/22: 1. Pt i n office with family for f/u on weight loss and blood sugars. Pt states she is doing well with the Trulicity. States she is taking a probiotic to help with the constipation and that helps a lot. Pt states no other GI issues. States she is working on exercise as well. Pt states she is only 19# away from her first goal weight. 09/29/22: 1. Pt in office for 6 week f/u appt. Pt states things are still a little rough after her step-sister . Pt states they held a memorial service, but still haven't gotten many answers.2. Pt states she is feeling good with the Trulicity. Says weight on scale hasn't gone down much, but she feels like her clothes fit differently.3. Pt states her mood is better, despite personal stressors with her estranged , working a lot, and trying to manage the kids' schedules. 08/18/22: 1. Pt presents for telehealth video/phone conference. Verbal consent witnessed by Pily Hercules RN and Antonette Roy (provider).2. Pt presents for 2 week f/u appt. Pt states the Trulicity is working well for her. Pt states she knows when she is full now. States she feels like her clothes are fitting different. Pt states that she isn't mindlessly eating or eating fast food.3. Pt states she thinks she is likely going to get a divorce. Pt states that (Francis) is still living in the same house, but he no longer wants to be .4. Pt states her step-sister on Mother's Day. 08/03/22: 1. Pt presents for telehealth video/phone conference. Verbal consent witnessed by medical staff and Antonette Roy (provider).2. Pt presents for f/u on lab results.3. Pt states things between her and spouse are not doing well. States they are talking and trying to work through things.4. 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 07/08/22: 1. Pt in office for 4 week f/u appt. Pt states the duloxetine seems to be helping everything. Pt states it seems to be more focused. States it seems to be helping her manage her snacking better as well.2. Pt states since last visit she has had stents put in her legs for the vascular disease.3. Pt states she had also gotten a lumbar puncture to evaluate for excess CSF around her brain. States she is still waiting for the results.4. Pt states that she was seeing a weight loss doctor and they started her on metformin to help her pcos and weight loss. Pt states she tried taking it, but the entire time she was taking it made her kidneys hurt. States the pain went away. States she is also concerned about the fact that the vascular surgeon told her that the blood vessels in her kidney are really small. 06/02/22: 1. Pt presents for telehealth video/phone conference. Verbal consent witnessed by medical underwriter name Antonette Roy (provider).2. Pt presents for problem visit with c/o struggling with her anxiety and depression. States she normally likes her Lexapro, but feels like it's causing her clench her jaw and grind her teeth throughout the day and night. States she recently broke off one of her teeth. States sx went away when she stopped the Lexapro. Pt states that her mother takes the same medication and is having the same sx.3. Pt states that she had stent put in a little while ago and had a lot of pain with it. States pain is better, but she is still having a lot of swelling in her ankles.4. Pt states she is considering surgery for weight loss because the metformin isn't allowing her to lose weight fast enough. Reports she isn't working out since she had the stents placed. 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 Antonette Roy, EYEGLASS CUTTER [address] [facility] [facility] [address], [place], [address], [place] [facility] [place] [employer] 10/27/2022 19:15:53 OBGyn Episode No OBEpisode recorded.
--- OUTSIDE RECORDS SUMMARY | 2024-04-14 17:43 | XMS_ITS | Encounter Summary ---
Author Organization [facility] Address [address] [place] [address] Care Team Providers Care Freight Dispatcher Name Role Phone Jonelle Elam MD Primary Care Provider [phone] Manju Rainey DO Unavailable [phone] Skylar Canales PA-C Unavailable [phone] Encounter Details Date Type Department Care Team (Latest Contact Info) Description 05/12/2022 Travel Social History Tobacco Use Types Packs/Day [...] suspected to have Coronavirus/COVID-19? No / Unsure 04/22/2022 9:05 AM PHARMACIST IN CHARGE OWNER documented as of this encounter Plan of [...] on filedocumented in this encounter Care Teams Freight Dispatcher Relationship Specialty Start Date End Date Jonelle Elam MD [address] [place] [address] PCP - General Family Medicine 10/24/18 Manju Rainey DO [address] [place] [address] Bariatrics 08/11/20 Skylar Canales PA-C [address] [facility] [address] [place] [id number] Physician Ios Software Engineer Nephrology 03/04/22 documented as of this encounter
--- OUTSIDE RECORDS SUMMARY | 2024-04-14 17:43 | XMS_ITS | Encounter Summary ---
Author Organization [facility] Address [address] [place] [address] Care Team Providers Care Clipper Machine Name Role Phone Jonelle Elam MD Primary Care Provider [phone] Manju Rainey DO Unavailable Skylar Canales PA-C Unavailable [phone] Reason for Referral * Medication Prior Authorization - Authorized Specialty Diagnoses / Procedures Referred By Contava t Referred To Contact Diagnoses Intractable migraine with aura with status migrainosus Jeff Bird APRN-CNP [address] [place] [address] [place] [address] Referral ID Status Reason Start Date Expiration Date V isits Requested Visits Authorized [id number] Authorized 08/09/2022 08/10/2023 1 1 Reason for Visit * Reason Comments Refill Request Encounter Details Date Type Department Care Team (Late st Contact Info) Description 08/09/2022 Refill [facility] [address] [place] [address], [place] [address] Jeff Bird APRN-MECHANIC ASSISTANT [address] [place] [id number] Refill Request Social History Tobacco Use Types [...] AM CDT documented as of this encounter Miscellaneous Notes * Telephone Encounter - Deirdre Block - 08/09/2022 7:21 AM CDT Refill Request Deya Campbell JOSE: 04/27/2022Feb due: 10/2022 scheduled: 10/2022 LRF: 04/27/2022 Qty Disp: 8 tablet # of refills: 11 Allergies: Allergies Allergen Reactions ??? Levofloxacin Urticaria and Itching Chest pain, shortness of breath and pain and weakness in legs ??? Cephalexin Rash ??? Nifedipine Other Facial redness, palpitations ??? Lexapro [Escitalopram] Other Caused severe teeth grinding, headaches ??? Labetalol Shortness of Breath Pended Medication Order: Requested Prescriptions Pending Prescriptions Disp Refills ??? Nurtec 75 MG tablet [Pharmacy Med Name: NURTEC 75MG ODT TABLETS] 8 tablet 11 Sig: DISSOLVE 1 TABLET ON THE TONGUE EVERY DAY NEEDED FOR MIGRAINE documented in this encounter Plan of Treatment Not on file documented as of this encounter Goals Goal Patient Goal Type Associated Problems Recent Progress Patient-Stated? Author Medication Management General On track( 023 9:23 AM CDT) No Kneip, Gabriella R, RN Note: Expected end date: ongoing Interventions: Take all medications as prescribed Safety General On track( 021 11:18 AM CDT) No Gabriella Moon RN Note: Expected end date: ongoing Interventions: Your nurse will assess your risk for falls/injury each visit documented as of this encounter Visit Diagnoses Diagnosis Intractable migraine with aura with status migrainosus Migraine with aura, with intractable migraine, so stated, with status migrainosus documented in this encounter Care Teams Clipper Machine Relationship Specialty Start Date End Date Jonelle Elam MD [address] [place] [address] PCP - General Family Medicine 10/24/18 Manju Rainey DO [address] [place] [address] Bariatrics 08/11/20 Skylar Canales PA-C [address] [facility] [address] [place] [address] Physician Respiratory Coordinator Nephrology 03/04/22 documented as of this encounter
--- OUTSIDE RECORDS SUMMARY | 2024-04-14 17:43 | XMS_ITS | Referral Summary ---
Author Organization [facility] Address [address] [place] [address] Care Team Providers Care Nut Packer Name Role Phone Jonelle Elam MD Primary Care Provider [phone] Manju Rainey DO Unavailable [phone] Skylar Canales PA-C Unavailable [phone] Source Comments [facility],non-owned Affiliates and Associated Physician Practices is amultiple site organization consisting of ambulatory clinics and hospital sitesin [place], [place], [place] and [place]. This disclosure is being madepursuant to the Care Everywhere program and may not contain all information available regarding this patient. Last updated 17.[facility] Allergies Active Allergy Reactions Criticality Noted Date Comments Cephalexin Rash Medium 02/08/2012 Labetalol Shortness of Breath High 05/21/2012 Levofloxacin Urticaria,Itching High 09/11/2018 Chest pain, shortness of breath and pain and weakness in legs Escitalopram Other Low 04/22/2022 Caused severe teeth grinding, headaches Nifedipine Other 06/05/2019 Facial redness, palpitations Medications * Be aware that medications may not be up to date on this document. Alwaysverify current medications with the patient. Medication Sig Dispensed Refills Start Date End Date Status vitamin D, cholecalciferol, 50 MCG (1999 UT) tablet Take 1 (one) tablet by mouth once daily Active Iron, Ferrous Sulfate, 325 (65 Fe) MG TABS Take by mouth once daily Active PARAGARD INTRAUTERINE COPPER IU Active omeprazole (PriLOSEC) 20 MG capsule Take 1 (one) capsule by mouth once daily as needed 12/17/2021 Active fluticasone-salmete rol (Advair/Wixela) 100-50 MCG/ACT inhaler Inhale 1 (one) puff by mouth 2 times daily Rinse mouth/throat well and spit after use. 60 Each 3 01/21/2022 Active amLODIPine (Norvasc) 10 MG tablet Take 1 (one) tablet by mouth once daily 02/07/2022 Active losartan (Cozaar) 100 MG tablet Take 1 (one) tablet by mouth once daily 02/21/2022 Active furosemide (Lasix) 40 MG tablet Take 1 (one) tablet by mouth every morning 03/30/2022 Active metoprolol tartrate IR (Lopressor) 50 MG tablet Take 1 (one) tablet by mouth 2 times daily 03/30/2022 Active Multiple Vitamins-Minerals (Womens Multivitamin) TABS Take 1 tablet by mouth once daily Active zonisamide (Zonegran) 25 MG capsuleIndications: Intractable migraine with aura with status migrainosus Take 1 (one) capsule by mouth once daily 30 capsule 11 04/27/2022 Active gabapentin (Neurontin) 100 MG capsuleIndications: Intractable migraine with aura with status migrainosus,MOOSE (obstructive sleep apnea) Take 1 (one) capsule by mouth 3 times daily 270 capsule 3 04/27/2022 Active aspirin (Aspirin) 81 MG chew tablet Take 1 (one) tablet by mouth once daily 05/05/2022 Active clopidogrel (plaVIX) 75 MG tablet Take 1 (one) tablet by mouth once daily 05/05/2022 Active Trulicity 0.75 MG/0.5ML injection ADMINISTER 0.75 MG UNDER THE SKIN EVERY WEEK 08/04/2022 Active DULoxetine (Cymbalta) 20 MG capsule Take 1 (one) capsule by mouth once daily 07/31/2022 Active cyanocobalamin (Vitamin B-12) 1000 MCG tablet Take 1 (one) tablet by mouth once daily Active spironolactone (Aldactone) 25 MG tablet Take 1 (one) tablet by mouth once daily APPT NEEDED CALL [phone] X 1 TO SCHEDULE 90 tablet 01/30/2023 Active Active Problems Problem Noted Date Diagnosed Date Prediabetes 04/07/2022 BMI 60.0-69.9, adult 11/03/2021 Generalized anxiety disorder 11/03/2021 Excessive caffeine intake 11/03/2021 Migraines 11/03/2021 Essential hypertension 04/01/2020 Overview (08/27/2021): Last Assessment & Plan: Condition: stable Discussed target blood pressure. Continue medication as prescribed from PCP/specialist. Take medications at the same time every day. Lifestyle modification advised: DASH diet, reduce stress/anxiety, discussed health weight management, activity as tolerated or advised from PCP, try to avoid alcohol and nicotine. Follow up as scheduled with PCP/specialist. Frequent headaches 06/05/2019 Assessment & Plan (08/28/2019 12:37 PM CDT): Just picked up Riboflavin today, rarely uses Tylenol due to NAEFD. Headaches have not worsened. [facility] Plan: 1. Reviewed headaches and if there is change to her current headache pattern, worsening, or persistent, she should be seen promptly for preeclampsia evaluation. 2. Start Riboflavin, increase fluid intake. Assessment & Plan (08/14/2019 4:27 PM CDT): Has not been able to case picker riboflavin from her pharmacy. Maternal Medicine recommendations: 1. encouraged to look for an [id number] vitamin-B complex Assessment & Plan (07/03/2019 12:54 PM CDT): Intermittent headaches. Maternal Medicine recommendations: 1. reminded that she has a prescription for riboflavin for headache prevention Assessment & Plan (06/05/2019 5:54 PM CROWN CERAMIST): May be related to poor vision. Maternal Medicine recommendations: 1. should maintain follow-up with toggle press operator 2. Riboflavin prescribed for headache prevention Cataracts, bilateral 01/02/2019 Overview (06/05/2019): Has artificial lens in left eye Assessment & Plan (06/05/2019 1:27 PM CROWN CERAMIST): Having decreased nighttime vision Maternal Medicine recommendations: 1. recommend follow-up with toggle press operator NAFLD (nonalcoholic fatty liver disease) 019 Overview (10/27/2020): 02/03/20 Fibroscan CAP 400, LSM 22.0 kPa 10/27/20 Fibroscan CAP 400, LSM 63.1 kPa Assessment & Plan (08/28/2019 12:46 PM CDT): Remains at risk for complications of related to pre-existing liver disease and suspected chronic hypertension. Patient believes she had CMP drawn at primary OB last week. ?? Maternal Medicine recommendations: 1. Serial liver function testing every trimester--to be ordered by primary outbound sales specialist, please send copy of recent results. 2. Follow up with GI as recommended in fall for repeat MRI and fibroscan. ?? Assessment & Plan (08/14/2019 4:26 PM CDT): Remains at risk for complications of related to pre-existing liver disease and suspected chronic hypertension. Maternal Medicine recommendations: 1. Serial liver function testing every trimester--to be ordered by primary outbound sales specialist 2. please forward a copy of the glucose challenge test results Assessment & Plan (06/05/2019 5:50 PM CROWN CERAMIST): Unremarkable LFTs. Remains at risk for complications of related to pre-existing liver disease and suspected chronic hypertension. Maternal Medicine recommendations: 1. Serial liver function testing every trimester--to be ordered by primary outbound sales specialist GERD (gastroesophageal reflux disease) 9 Lumbar herniated disc 04/03/2014 Assessment & Plan (08/28/2019 12:41 PM CDT): Remains bothersome with use of maternity support belt. Denies any falls. Has PT referral and has not made appointment. Swimming with some relief. [facility] Plan: 1. Again encouraged to reach out to physical therapy, she assures me she has the order form at home. Assessment & Plan (08/14/2019 4:22 PM CDT): Still with back pain. No interval falls. Received information for a physical therapy group in the mail, but has not yet contacted the group. Maternal Medicine recommendations: 1. instructed to contact the physical therapy group and ask whether or not they are seeing patients at this time. 2. fitted today for a maternity belt Assessment & Plan (07/03/2019 12:57 PM CDT): Having significant pain. Received information for a physical therapy group in the mail. Maternal Medicine recommendations: 1. instructed to contact the physical therapy group and ask whether or not they are seeing patients at this time. 2. Discussed the safety of using a medicated heat strip and continued use of the maternity belt Assessment & Plan (06/05/2019 5:49 PM CROWN CERAMIST): Having significant pain at night after exercise Maternal Medicine recommendations: 1. resume physical therapy 2. instructed to use medicated heat strip as needed for pain relief 3. Would benefit from 3rd trimester anesthesia consultation (around 28-32 weeks) Uses intrauterine device for control 10/21 Depressive disorder 05/21/2012 Diverticulitis Assessment & Plan (08/14/2019 4:19 PM CDT): Recent transient flare Maternal Medicine recommendations: 1. encouraged to increase dietary fiber Assessment & Plan (07/03/2019 12:53 PM CDT): Regular bowel movements. Maternal Medicine recommendations: 1. encouraged to increase dietary fiber Assessment & Plan (06/05/2019 5:41 PM CROWN CERAMIST): Maternal Medicine recommendations: 1. nutrition counseling--initiated today 2. Encouraged to increase dietary fiber Sleep apnea Overview (06/05/2019): Has not had a sleep study Assessment & Plan (08/14/2019 4:25 PM CDT): Previously instructed to have evaluation for sleep apnea Assessment & Plan (06/05/2019 5:49 PM CROWN CERAMIST): instructed to have evaluation for sleep apnea Immunizations Name Administration Dates Next Due DTaP VACCINE IM (6wk-6yrs) 10/07/1999,03/07/1996 FLU VACCINE QUAD IIV4 SPLIT 0.25 ML IM 6 FLU VACCINE TRI IIV3 SPLIT P F IM (FLUVIRIN) 01/30/2013 HEP B VACCINE, PED/ADOL 09/14/1995,1994, HIB-PRP-OMP 3 DOSE 03/07/1996 Human Papilloma Virus Jocy valent Vaccine 01/08/2008,02/12/2007,11/27/2006 INFLUENZA VACCINE, QUADR. (F LUZONE; FLULAVAL; FLUARIX; AFLURIA QUADRIVALENT; 6MO+), 0.5 ML (IIV4) 01/01/2020,01/03/2019,01/26/2018,03/15,03/06/2015,02/18/2014 MENINGOCOCCAL CONJUGATE (MCV4P) 10/27/2008 MMR 08/02/2018,10/07/1999,12/07/1995 POLIO IPV 10/07/1999 POLIO OPV 05/22/1995,03/20/1995,01/12/1995 TDAP (7yrs+) 08/01/2018,10/27/2008 VARICELLA 11/27/2006,03/07/1996 Social History Tobacco Use Types Packs/Day Years [...] Mass Index 60.53 07/20/2022 10:12 AM CDT Plan of Treatment Not on file Goals Goal Patient Goal Type Associated Problems Recent Progress Patient-Stated? Author Medication Management General On track( 023 9:23 AM CDT) No Gabriella Moon RN Note: Expected end date: ongoing Interventions: Take all medications as prescribed Safety General On track( 021 11:18 AM CDT) Gabriella Arguello, RN Note: Expected end date: ongoing Interventions: Your nurse will assess your risk for falls/injury each visit Procedures Procedure Name Priority Date/Time Associated Diagnosis Comments HEPATITIS C ANTIBODY Routine 01/02/2019 12:36 PM CDT Nonalcoholic fatty liver disease Morbid obesity (HCC) Liver lesion from Last 3 Months or Most Recently Relevant to Health Maintenance Results * HEPATITIS C ANTIBODY (01/02/2019 12:36 PM CDT) Hepatitis C Antibody Non-react elizabeth Non-reac tive 01/02/2019 1:33 PM CDT [facility] Comment: Hepatitis C Antibody screen indicates no [...] Kitchen MD LAB - CHEMISTRY KACY HICKS [facility] [address] [place] [address] from Last 3 Months or Most Recently Relevant to Health Maintenance Care Teams Nut Packer Relationship Specialty Start Date End Date Jonelle Elam MD [address] [place] [address] [place] [address] PCP - General Family Medicine 10/24/18 Manju Rainey DO [address] [place] [address] Bariatrics 08/11/20 Skylar Canales PA-C [address] [place] [address] Physician [facility] 03/04/22
--- OUTSIDE RECORDS SUMMARY | 2024-04-14 17:43 | XMS_ITS | Encounter Summary ---
Author Organization [facility] Address [address] [place] [address] Care Team Providers Care Interactive Multimedia Designer Name Role Phone Jonelle Elam MD Primary Care Provider [phone] Manju Rainey DO Unavailable Skylar Canales-Desirae Unavailable [phone] Reason for Referral * Consultation (Routine) - Open Specialty Diagnoses / Procedures Referred By Ritika t Referred To Contact Diagnoses Papilledema associated with retinal disorder Jeff Bird APRN-CNP [address] [place] [address] [place] [address] Referral ID Status Reason Start Date Expiration Date V isits Requested Visits Authorized [id number] Open Specialty Services Required 09/20/2023 09/19/2024 1 1 Scheduling Instructions Please fax to [phone] Encounter Details Date Type Department Care Team (Late st Contact Info) Description 09/20/2023 Orders Only [facility] - Neurology [address] [place] [address], [place] [address] Jeff Bird, CLEAN ROOM OPERATOR-MARKETING PRODUCER [address] [place] [phone] Papilledema associated with retinal disorder Social History [...] as of this encounter Plan of Treatment Scheduled Referrals Name Type Priority Associated Diagnoses Order Schedule Ref to Ophthalmology - [facility] Outpatient Referral Routine Papilledema associated with retinal disorder 1 Occurrences starting 09/20/2023 until 09/19/2024 documented as of this encounter Goals Goal [...] Primary documented in this encounter Care Teams Interactive Multimedia Designer Relationship Specialty Start Date End Date Jonelle Elam MD [address] [place] [address] [place] [address] PCP - General Family Medicine 10/24/18 Manju Rainey DO [address] [place] [address] Bariatrics 08/11/20 Skylar Canales PA-C [address] [facility] [place] [address] Physician Broaching Machine Repairer Nephrology 03/04/22 documented as of this encounter
--- OUTSIDE RECORDS SUMMARY | 2024-04-14 17:43 | XMS_ITS | Encounter Summary ---
Author Organization [facility] Address [address] [place] [address] Care Team Providers Care Advertising Display Rotator Name Role Phone Jonelle Elam MD Primary Care Provider Manju Rainey DO Unavailable [phone] Skylar Canales PA-C Unavailable [phone] Encounter Details Date Type Department Care Team (Latest Contact Info) Description 05/12/2022 4:15 PM QUILL PICKING MACHINE OPERATOR - 05/12/2022 11:59 PM [facility] Hospital Encounter [facility] OP DRAW STATION [address] [place] [phone] Discharge Disposition: Home or Self Care Social History Tobacco Use Types Packs/Day Years [...] Coronavirus/COVID-19? No / Unsure 04/22/2022 9:05 AM QUILL PICKING MACHINE OPERATOR documented as of this encounter Medications at Time of Discharge Medication Sig Dispensed Refills Start Date End Date amLODIPine (Norvasc) 10 MG tablet Take 1 (one) tablet by mouth once daily 02/07/2022 aspirin (Aspirin) 81 MG chew tablet Take 1 (one) tablet by mouth once daily 05/05/2022 clopidogrel (plaVIX) 75 MG tablet Take 1 (one) tablet by mouth once daily 05/05/2022 fluticasone-salmeter ol (Advair/Wixela) 100-50 MCG/ACT inhaler Inhale 1 (one) puff by mouth 2 times daily Rinse mouth/throat well and spit after use. 60 Each 3 01/21/2022 furosemide (Lasix) 40 MG tablet Take 1 (one) tablet by mouth every morning 03/30/2022 gabapentin (Neurontin) 100 MG capsuleIndications:I ntractable migraine with aura with status migrainosus,MOOSE (obstructive sleep apnea) Take 1 (one) capsule by mouth 3 times daily 270 capsule 3 04/27/2022 Iron, Ferrous Sulfate, 325 (65 Fe) MG TABS Take by mouth once daily losartan (Cozaar) 100 MG tablet Take 1 (one) tablet by mouth once daily 02/21/2022 metoprolol tartrate IR (Lopressor) 50 MG tablet Take 1 (one) tablet by mouth 2 times daily 03/30/2022 Multiple Vitamins-Minerals (Womens Multivitamin) TABS Take 1 tablet by mouth once daily omeprazole (PriLOSEC) 20 MG capsule Take 1 (one) capsule by mouth once daily as needed 12/17/2021 PARAGARD INTRAUTERINE COPPER IU vitamin D, cholecalciferol, 50 MCG (1999 UT) tablet Take 1 (one) tablet by mouth once daily zonisamide (Zonegran) 25 MG capsuleIndications:I ntractable migraine with aura with status migrainosus Take 1 (one) capsule by mouth once daily 30 capsule 11 04/27/2022 erenumab-aooe (Aimovig) 70 MG/ML auto injector penIndications:Intra ctable migraine with aura with status migrainosus Inject 1 mL subcutaneously every 30 days 1 mL 11 12/31/2021 08/19/2022 metFORMIN ER 24hr (Glucophage XR) 500 MG tablet Take 1 (one) tablet by mouth every evening 30 tablet 2 03/25/2022 07/20/2022 rimegepant (Nurtec) 75 MG tabletIndications:In tractable migraine with aura with status migrainosus Take 75 mg by mouth once daily as needed for Migraine 8 tablet 11 04/27/2022 08/09/2022 spironolactone (Aldactone) 25 MG tablet Take 1 (one) tablet by mouth once daily 90 tablet 3 03/15/2022 01/30/2023 documented as of this encounter Plan of [...] each visit documented as of this encounter Procedures Procedure Name Priority Date/Time Associated Diagnosis Comments CBC W AUTO DIFFERENTIAL Routine 05/12/2022 4:33 PM QUILL PICKING MACHINE OPERATOR NAFLD (nonalcoholic fatty liver disease) COMPREHENSIVE METABOLIC PANEL Routine 05/12/2022 4:33 PM QUILL PICKING MACHINE OPERATOR NAFLD (nonalcoholic fatty liver disease) documented in this encounter Results * (ABNORMAL) COMPREHENSIVE METABOLIC PANEL (05/12/2022 4:33 PM QUILL PICKING MACHINE OPERATOR) BUN 9 7 - 26 mg/dL 05/12/2022 5:18 PM [facility] Creatinine 0.57 0.56 - 0.96 mg/dL 05/12/2022 5:18 PM [facility] Sodium 135(L) 136 - 145 mmol/L 05/12/2022 5:18 PM [facility] Potassium 3.8 3.5 - 4.5 mmol/L 05/12/2022 5:18 PM [facility] Chloride 104 98 - 107 mmol/L 05/12/2022 5:18 PM [facility] CO2 25 22 - 29 mmol/L 05/12/2022 5:18 PM [facility] Glucose 98 70 - 115 mg/dL 05/12/2022 5:18 PM [facility] Calcium 9.5 8.4 - 10.2 mg/dL 05/12/2022 5:18 PM [facility] Protein Total 7.3 6.0 - 8.3 g/dL 05/12/2022 5:18 PM [facility] Albumin 3.9 3.4 - 5.0 g/dL 05/12/2022 5:18 PM [facility] Bilirubin Total 0.7 0.2 - 1.2 mg/dL 05/12/2022 5:18 PM [facility] Alkaline Phosphatase 63 40 - 150 U/L 05/12/2022 5:18 PM [facility] ALT 27 5 - 55 U/L 05/12/2022 5:18 PM [facility] AST 20 5 - 34 U/L 05/12/2022 5:18 PM [facility] Anion Gap 10 8 - 18 05/12/2022 5:18 PM [facility] BUN/Creatinine Ratio 16 7 - 23 05/12/2022 5:18 PM [facility] Osmolality Calculated 279 270 - 300 mOsm/kg 05/12/2022 5:18 PM [facility] Albumin/Globulin Ratio 1.1 1.1 - 2.3 05/12/2022 5:18 PM [facility] eGFR by CKD-EPI >90 >=90 mL/min/1.7 3 m2 05/12/2022 5:18 PM [facility] Blood BLOOD SPECIMEN / Unknown Lab Venipuncture / Unknown 05/12/2022 4:33 PM QUILL PICKING MACHINE OPERATOR 05/12/2022 4:48 PM [facility] Linda Gurrola SKEIN STRAIGHTENER-WASTEWATER PLANT CIVIL ENGINEER LAB - CHEMI STRY ORDERABLES [facility] [address] [place] [address], [facility] [phone] * (ABNORMAL) CBC WITH DIFFERENTIAL (05/12/2022 4:33 PM [facility]) [facility] Signature WBC 9.0 3.5 - 10.5 10? 3 /uL 05/12/2022 4:56 PM [facility] RBC 4.24 3.80 - 5.20 10? 6 /uL 05/12/2022 4:56 PM [facility] Hemoglobin 11.6(L) 12.0 - 15.6 g/dL 05/12/2022 4:56 PM [facility] Hematocrit 34.4(L) 35.0 - 45.0 % 05/12/2022 4:56 PM [facility] MCV 81.1 80.7 - 98.3 fL 05/12/2022 4:56 PM [facility] MCH 27.4 26.7 - 34.0 pg 05/12/2022 4:56 PM [facility] MCHC 33.7 30.8 - 35.9 g/dL 05/12/2022 4:56 PM [facility] RDW-SD 38.5 36.0 - 50.0 fL 05/12/2022 4:56 PM [facility] RDW-CV 13.2 11.2 - 14.8 % 05/12/2022 4:56 PM [facility] Platelet Count 341 150 - 400 10? 3 /uL 05/12/2022 4:56 PM [facility] MPV 9.3(L) 9.4 - 12.9 fL 05/12/2022 4:56 PM [facility] nRBC Absolute 0.00 0 10? 3 /uL 05/12/2022 4:56 PM [facility] nRBC Auto 0.0 0 /100 WBC 05/12/2022 4:56 PM [facility] Neutrophils % 63.0 35.0 - 70.0 % 05/12/2022 4:56 PM [facility] Lymphocytes % 25.6 20.0 - 43.0 % 05/12/2022 4:56 PM [facility] Monocytes % 7.0 5.0 - 13.0 % 05/12/2022 4:56 PM [facility] Eosinophils % 3.1 0.0 - 6.0 % 05/12/2022 4:56 PM [facility] Basophil % 0.7 0.0 - 2.0 % 05/12/2022 4:56 PM [facility] Neutrophils Absolute 5.65 1.60 - 7.00 10? 3 /uL 05/12/2022 4:56 PM [facility] Lymphocyte Absolute 2.29 1.10 - 3.90 10? 3 /uL 05/12/2022 4:56 PM [facility] Monocytes Absolute 0.63 0.26 - 1.07 10? 3 /uL 05/12/2022 4:56 PM [facility] Eosinophils Absolute 0.28 0.00 - 0.47 10? 3 /uL 05/12/2022 4:56 PM [facility] Basophils Absolute 0.06 0.00 - 0.08 10? 3 /uL 05/12/2022 4:56 PM [facility] Immature Granulocytes % 0.6 0.0 - 1.0 % 05/12/2022 4:56 PM [facility] Immature Granulocytes Absolute 0.05 05/12/2022 4:56 PM [facility] Blood BLOOD SPECIMEN / Unknown Lab Venipuncture / Unknown 05/12/2022 4:33 PM QUILL PICKING MACHINE OPERATOR 05/12/2022 4:48 PM QUILL PICKING MACHINE OPERATOR Linda Gurrola SKEIN STRAIGHTENER-WASTEWATER PLANT CIVIL ENGINEER LAB - HEMAT OLOGY ORDERABLES Performing Organization Address City/State/[facility] de Phone Number [facility] [address] [place] [address], [facility] [phone] documented in this encounter Visit Diagnoses Diagnosis NAFLD (nonalcoholic fatty liver disease) Other chronic nonalcoholic liver disease documented in this encounter Care Teams Advertising Display Rotator Relationship Specialty Start Date End Date Jonelle Elam MD [address] [place] [address] [place] [phone] PCP - General Family Medicine 10/24/18 Manju Rainey DO [address] [place] [address] Bariatrics 08/11/20 Skylar Canales PA-C [address] [address] Physician Authors [facility] 03/04/22 documented as of this encounter
--- OUTSIDE RECORDS SUMMARY | 2024-04-14 17:43 | XMS_ITS | Clinical Summary ---
Author Organization [facility] Replication Medical Address [address] [place] [address] Care Team Providers Care Automobile Salesman Name Role Phone Jonelle Elam MD Primary Care Provider [phone] Manju Rainey DO Unavailable [phone] Skylar Canales PA-C Unavailable [phone] Source Comments [facility],non-owned Affiliates and Associated Physician Practices is amultiple site organization consisting of ambulatory clinics and hospital sitesin [place], [place], [place] and [place]. This disclosure is being madepursuant to the Care Everywhere program and may not contain all information available regarding this patient. Last updated 17.[facility] Allergies Active Allergy Reactions Criticality Noted Date [...] by mouth once daily APPT NEEDED CALL [phone] X 1 TO SCHEDULE 90 tablet 01/30/2023 [...] due to NAEFD. Headaches have not worsened. [facility] Plan: 1. Reviewed headaches and if there is change to her current headache pattern, worsening, or persistent, she should be seen promptly for preeclampsia evaluation. 2. Start Riboflavin, increase fluid intake. Assessment & Plan (08/14/2019 4:27 PM CDT): Has not been able to meat pickler riboflavin from her pharmacy. Maternal Medicine recommendations: 1. encouraged to look for an [id number] vitamin-B complex Assessment & Plan (07/03/2019 12:54 PM CDT): Intermittent headaches. Maternal Medicine recommendations: 1. reminded that she has a prescription for riboflavin for headache prevention Assessment & Plan (06/05/2019 5:54 PM PUBLISHING DIRECTOR): May be related to poor vision. Maternal Medicine recommendations: 1. should maintain follow-up with continuous improvement engineer 2. Riboflavin prescribed for headache prevention Cataracts, bilateral 01/02/2019 Overview (06/05/2019): Has artificial lens in left eye Assessment & Plan (06/05/2019 1:27 PM PUBLISHING DIRECTOR): Having decreased nighttime vision Maternal Medicine recommendations: 1. recommend follow-up with continuous improvement engineer NAFLD (nonalcoholic fatty liver disease) 019 Overview [...] testing every trimester--to be ordered by primary health and wellness instructor, please send copy of recent results. 2. Follow up with GI as recommended in fall for repeat MRI and fibroscan. ?? Assessment & Plan (08/14/2019 4:26 PM CDT): Remains at risk for complications of related to pre-existing liver disease and suspected chronic hypertension. Maternal Medicine recommendations: 1. Serial liver function testing every trimester--to be ordered by primary health and wellness instructor 2. please forward a copy of the glucose challenge test results Assessment & Plan (06/05/2019 5:50 PM PUBLISHING DIRECTOR): Unremarkable LFTs. Remains at risk for complications of related to pre-existing liver disease and suspected chronic hypertension. Maternal Medicine recommendations: 1. Serial liver function testing every trimester--to be ordered by primary health and wellness instructor GERD (gastroesophageal reflux disease) 9 Lumbar herniated disc 04/03/2014 Assessment & Plan (08/28/2019 12:41 PM CDT): Remains bothersome with use of maternity support belt. Denies any falls. Has PT referral and has not made appointment. Swimming with some relief. [facility] Plan: 1. Again encouraged to reach [...] belt Assessment & Plan (06/05/2019 5:49 PM PUBLISHING DIRECTOR): Having significant pain at night after exercise [...] fiber Assessment & Plan (06/05/2019 5:41 PM PUBLISHING DIRECTOR): Maternal Medicine recommendations: 1. nutrition counseling--initiated today 2. Encouraged to increase dietary fiber Sleep apnea Overview (06/05/2019): Has not had a sleep study Assessment & Plan (08/14/2019 4:25 PM CDT): Previously instructed to have evaluation for sleep apnea Assessment & Plan (06/05/2019 5:49 PM PUBLISHING DIRECTOR): instructed to have evaluation for sleep apnea [...] OPV 05/22/1995,03/20/1995,01/12/1995 TDAP (7yrs+) 08/01/2018,10/27/2008 VARICELLA 11/27/2006,03/07/1996 Family History Medical History Relation Name Comments Anxiety Disorder Brother 1 fabián Depression Brother 1 fabián Anxiety Disorder Brother 2 jayson Depression Brother 2 jayson Drug Abuse Brother 2 jayson Hypertension Brother 2 jayson Renal Disease Brother 2 jayson Seizures Brother 3 kisha Asthma Daughter CAD (Coronary Artery Disease) Father Diabetes - Type 1 Father Hypertension Father Renal Disease Father horseshoe kidn ey Sleep Disorder - Sleep apnea Father Diabetes - Type 2 Maternal Grandfather Hypertension Maternal Grandfather Hypertension Maternal Grandmother Anxiety Disorder Mother Hypertension Mother Renal Disease Mother Cancer - Colon Paternal Grandfather Hypertension Paternal Grandfather Sudden Paternal Grandfather Hypertension Paternal Grandmother Drug Abuse Sister 1 dereck Hepatitis Sister 1 dereck Other - Hepatic/Liver Sister 1 dereck Anxiety Disorder Sister 2 cornelio Autoimmune Disease Sister 2 cornelio alopecia Depression Sister 2 cornelio Anxiety Disorder Sister 3 baltazar Bipolar Disorder Sister 3 baltazar Depression Sister 3 baltazar Drug Abuse Sister 3 baltazar Anxiety Disorder Sister 4 alton Autoimmune Disease Sister 4 alton alopecia Depression Sister 4 alton Asthma Son 1 Autoimmune Disease Son 1 Hypertension Son 1 Migraine Son 1 Sleep Disorder - Sleep apnea Son 1 SIDS Son 2 Relation Name Status Comments Brother 1 fabián Alive Brother 2 jayson Alive Brother 3 kisha Alive Daughter Alive Father Alive Maternal Grandfather Maternal Grandmother Mother Alive Paternal Grandfather Paternal Grandmother Sister 1 dereck Other Drug use- liver issues Sister 2 cornelio Alive Sister 3 baltazar Alive Sister 4 alton Alive Son 1 Alive Son 2 Social History Tobacco Use Types Packs/Day Years [...] 07/20/2022 10:12 AM CDT Plan of Treatment Health Maintenance Due Date Last Done Comments PAP SMEAR 1995 HIV SCREENING 2009 COVID-19 VACCINE ( season) 2023 02/04/2021 INFLUENZA VACCINE (#1) 2023 , 01/03/2019, 01/26/2018, Additional history exists DEPRESSION SCREENING 04/03/2024 DTAP/TDAP/TD VACCINES (5 - Td or Tdap) 08/01/2028 08/01/2018, 10/27/2008, 10/07/1999, Additional history exists ZOSTER VACCINE (1 of 2) 2044 HEPATITIS B VACCINE Completed 09/14/1995, 1994, 1994 HIB VACCINE Completed 03/07/1996 HPV VACCINE Completed 01/08/2008, 02/01, 11/27/2006 MENINGOCOCCAL VACCINE Aged Out 10/27/2008 No job maryam eligible based on patient's age to complete this topic HEPATITIS C SCREENING Completed 01/02/2019 MENINGOCOCCAL (Group B) VACCINE Aged Out No longer eligible based on patient's age to complete this topic PNEUMOCOCCAL VACCINE Aged Out No long er eligible based on patient's age to complete this topic Goals Goal Patient Goal Type Associated Problems [...] elizabeth Non-reac tive 01/02/2019 1:33 PM CDT [facility] Comment: Hepatitis C Antibody screen indicates [...] Maribel Kitchen MD LAB - CHEMISTRY KACY Zuluaga Organization Address City/State/ZIP Co de Phone Number [facility] [address] [phone] from Last 3 Months or Most Recently Relevant to Health Maintenance Care Teams Automobile Salesman Relationship Specialty Start Date End Date Jonelle Elam MD [address] [place] [address] [place] [address] PCP - General Family Medicine 10/24/18 Manju Rainey DO [address] [place] [address] Bariatrics 08/11/20 Skylar Canales PA-C [address] [place] [phone] Physician Mounted Police Officer Nephrology 03/04/22
--- OUTSIDE RECORDS SUMMARY | 2024-04-14 17:44 | XMS_ITS | Encounter Summary ---
Author Organization [facility] Address [address] [place] [address] Care Team Providers Care Business Resiliency Manager Name Role Phone Jonelle Elam MD Primary Care Provider [phone] Manju Rainey DO Unavailable [phone] Encounter Details Date Type Department Care Team (Late st Contact Info) Description 05/17/2021 Orders Only [facility] - [address] [facility], [place] [address] Maribel Kitchen MD [address] [place] [phone] Social History Tobacco Use Types Packs/Day Years Used Date Smoking Tobacco: Never Smokeless Tobacco: Never Alcohol Use Standard Drinks/Week Comments Not Currently 0 (1 standard drink = 0.6 oz pur e alcohol) Sex and Gender Information Value Date Recorded Sex Assigned at Not on file Gender Identity Not on file Sexual Orientation Not on file COVID-19 Exposure Response Date Recorded In the last month, have you been in contact with someone who was confirmed or suspected to have Coronavirus / COVID-19? Yes 04/27/2021 10:37 AM COTTON CONVERTER documented as of this encounter Plan of [...] on filedocumented in this encounter Care Teams Business Resiliency Manager Relationship Specialty Start Date End Date Jonelle Elam MD [address] [place] [address] [place] [id number] PCP - General Family Medicine 10/24/18 Manju Rainey DO [address] [place] [address] Bariatrics 08/11/20 documented as of this encounter
--- OUTSIDE RECORDS SUMMARY | 2024-04-14 17:44 | XMS_ITS | Encounter Summary ---
Author Organization [facility] Address [address] [place] [address] Care Team Providers Care Adding Machine Servicer Name Role Phone Jonelle Elam MD Primary Care Provider [phone] Manju Rainey DO Unavailable [phone] Reason for Visit * Reason Comments Headache Encounter Details Date Type Department Care Team (Late st Contact Info) Description 12/28/2021 3:00 PM CDT Office Visit [facility] Neurology [address] [facility], [place] [phone] Jeff Bird, MACHINING DEPARTMENT SUPERVISOR-JOSETTE [facility] [phone] Intractable migraine with aura with status migrainosus (Primary Dx); Labile hypertension Social History Tobacco Use Types Packs/Day [...] on file documented as of this encounter Last Filed Vital Signs Vital Sign Reading Time Taken Comments Blood Pressure 158/102 12/28/2021 3:10 PM CDT Pulse 80 12/28/2021 3:10 PM CDT Temperature 36.9 ??C (98.5 ??F) 12/28/2021 3:10 PM CD T Respiratory Rate - - Oxygen Saturation 98% 12/28/2021 3:10 PM CDT Inhaled Oxygen Concentration - - Weight 154.2 kg (340 lb) 12/28/2021 3:10 PM CDT Height 154.9 cm (5' 1 ) 12/28/2021 3:10 PM CDT Body Mass Index 64.24 12/28/2021 3:10 PM CDT documented in this encounter Patient Instructions * Patient Instructions* Jeff Bird APRN-CNP - 12/28/2021 3:20 PM CDT Migrianes Labile HTN Please start Emglaity 120 mg/ml (1) monthly injection Please start Zonisamide 25 mg (1) bed time Please see Nephrology documented in this encounter Progress Notes * Jeff Bird APRN-CNP - 12/28/2021 3:02 PM CDT Neurology - Headache Clinic Note Date of Encounter: 12/28/2021 Deya Campbell Age: [age] year old Date of : 1995 Referring Physician: Jonelle Elam MD [address] [place] [address] [place] [address] Reason for Office Visit: Pain head/ Accompanied with none History : History of Present Illness I had the pleasure of seeing Deya Campbell in my Neurology office today. Deya Campbell is a 26 year old female with history of NAFLD, Liver lesions. She is currently medically managed by Losartan Topamax (Off of it as its giving her numbness) Chief Complaint: Intensity of headache -Severe Recurrent headache -since many years Headache days in a given month- between 10-15+ Frequency -atleast twice a week Location - Temples Character -Throbbing Duration -20 Minutes to 2 hours to 2 days Function -Limitation of function, needing to lay down, rest Previous Treatment tried -abortive,OTC Exacerbating Factors -weather, heat, stress Relieving Factors -none Accompaniments -Nausea, vomiting, photophobia, phonophobia, trouble with focusing, Lightheadedness,vision change, loss of vision Aura -yes Teichopsias -Sensation of luminous appearance before eyes, with a ziggag , wall like outline Scotoma -area of lost/depressed vision or entirely degenerated visual acuity that is surrounded by a field of normal Photophobia -Yes Phonophobia -Yes Numbness/Tingling -Yes Tenderness -No Baseline Pain Severity level -10 Patient has Cardiovascular risk factors- Uncontrolled HTN; failed triptans including Sumatriptan. Add rimegepant (NURTEC) 75 MG tablet PRN To start Gabapentin 100 mg (1) TID To see ENT for sinus problem To see Sleep speciality for MOOSE To see Weight professor of sport management for Obesity 12/28/21 On rimegepant (NURTEC) 75 MG tablet PRN Gabapentin 100 mg (1) TID Seen ENT for sinus problem Seeing Sleep speciality for MOOSE Scheduled to see Weight professor of sport management for Obesity Number of migraines per week: 3 Migraines Per week -The headache symptoms have changed. This change is headaches intensity grew stronger, Lasting morethan 2 days per episode and have 2-3 headache episode per week, the pain is located left temporal, throbbing, associated with photosensitivity, phonophobia, pain is 6/10, and the pattern of headache s ymptoms is headaches all over temples and is getting worse and aggravates with activity, wanting tolay down and take rest and feels nauseated. Nurtec is beneficial in easing the headaches BP elevated; on Losartan Obesity+ No other new neurological changes ROS: General Negative except per HPI Eyes Negative except per HPI ENT Negative except per HPI Pulmonary Negative except per HPI Cardiac Negative except per HPI GI Negative except per HPI Negative except per HPI Neurologic Per HPI Psychiatric Negative except per HPI Skeletal Negative except per HPI Endocrine Negative except per HPI Infectious Negative except per HPI Allergies: Allergies Allergen Reactions ??? Levofloxacin Urticaria and Itching Chest pain, shortness of breath and pain and weakness in legs ??? Cephalexin Rash ??? Nifedipine Other Facial redness, palpitations ??? Labetalol Shortness of Breath Home Medications: Current Outpatient Medications Medication Sig ??? escitalopram (LEXAPRO) 10 MG tablet Take 10 mg by mouth once daily ??? gabapentin (NEURONTIN) 100 MG capsule Take 1 (one) capsule by mouth 3 times daily ??? Iron, Ferrous Sulfate, 325 (65 Fe) MG TABS Take by mouth once daily ??? losartan-hydroCHLOROthiazide (HYZAAR) 100-25 MG tablet losartan 100 mg- hydrochlorothiazide 25 mg tablet TAKE 1 TABLET BY MOUTH EVERY DAY ??? PARAGARD INTRAUTERINE COPPER IU ??? rimegepant (NURTEC) 75 MG tablet Take 75 mg by mouth once daily as needed for Migraine ??? vitamin D, cholecalciferol, 50 MCG (2000 UT) tablet Take 2,000 Units by mouth once daily ??? vitamin D, ergocalciferol, (DRISDOL) 1.25 MG (35690 UT) capsule Take 1 (one) capsule by mouth every 7 days Reasons: Vitamin D Deficiency No current facility-administered medications for this visit. Patient Active Problem List: Cataracts, bilateral NAFLD (nonalcoholic fatty liver disease) GERD (gastroesophageal reflux disease) Lumbar herniated disc Diverticulitis Sleep apnea Frequent headaches Depressive disorder Essential hypertension BMI 60.0-69.9, adult Generalized anxiety disorder Excessive caffeine intake Migraines PMH: Past Medical History: Diagnosis Date ??? 27 weeks gestation of 05/31/2018 ??? 30 weeks gestation of 06/19/2018 ??? 36 weeks gestation of 07/30/2018 ??? Abnormal blood chemistry level 08/27/2021 ??? Abnormal computed tomography scan 08/27/2021 ??? Anxiety ??? Backache 10/30/2013 ??? BMI 60.0-69.9, adult 11/03/2021 ??? Breast disorder history of breast [...] and injections ??? Maternal morbid obesity, antepartum 06/05/2019 ??? Migraines ??? Morbid obesity ??? NAFLD (nonalcoholic fatty liver disease) 01/02/2019 [...] screen negative Sequential screen started 28 weeklabs: 08/07/19: GCT: 127 H/H: 10.8/32.3 HIV and RPR NR Family History: Family History Problem Relation Name Age of Onset ??? Hypertension Mother ??? Anxiety Disorder Mother ??? Hypertension Father ??? Renal Disease Father ??? Diabetes - Type 1 Father ??? Sleep Disorder - Sleep apnea Father ??? Drug Abuse Sister dereck ??? [...] ??? Cancer - Colon Paternal Grandfather ??? Asthma Daughter ??? Sleep Disorder - Sleep apnea Son ??? Asthma Son ??? Migraine Son ??? Hypertension Son ??? Autoimmune Disease Son ??? SIDS Son Social History: Social History Socioeconomic History ??? Marital status: Spouse name: Not on file ??? Number of children: 3 ??? Years of education: 14 ??? Highest education level: Associate degree: academic program Occupational History ??? 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 Smoking status: Never Smoker ??? Smokeless tobacco: Never Used Vaping Use ??? Vaping Use: Never used Substance and Sexual Activity ??? Alcohol use: Not Currently Comment: gets sick when drinks ??? Drug use: Not Currently Comment: marijuana a few times in past ??? Sexual activity: Yes Partners: Male control/protection: I.U.D. Other Topics Concern ??? Not on file Social History Narrative Almost done with associates's degree-billing and coding/science 2 living children (2 and 9 in 2021) living in house Pets none Hobby reading-usually on [employer] jaqui Social Determinants of Health Financial Resource Strain: Not on file Food Insecurity: Not on file Transportation Needs: Not on file Physical Activity: Not on file Stress: Not on file Social Connections: Not on file Intimate Partner Violence: Not on file Housing Stability: Not on file Physical Exam: There were no vitals filed for this visit. - Current pain level General: The patient's weight has not changed recently and appetite has been fair. HEENT: Head normocephalic and atraumatic Head/Neck - Cervical spine examination - good range of motion - Myofascial palpation - no tenderness in trapezius, splenius capitis, temporalis - Temporomandibular joint examination - within normal limits TA: No tenderness Optic Fundi: Clear disc Margin Heart: Regular rate and rhythm without murmur Lungs: Clear to auscultation bilaterally Abdomen: Non-tender, non-distended Extremities: No cyanosis or edema noted Cortical Function: MS: Awake, Alert, Follows Commands Oriented to Person, Place and Time Language: Fluent, Coherent, Repetition Intact VF: Intact to confrontation test Neglect: No visual neglect, No tactile neglect Cranial Nerves: Pupils 3 mm BRTL, Full EOM, No ptosis or nystagmus Facial sensation intact bilaterally to LT; No facial palsy Hearing intact to finger rub bilaterally Palate symmetric; Normal tongue protrusion Motor: Abnormal Movements: None Bulk: Normal Tone: Normal Strength: Appropriate for Age RUE 5/5 LUE 5/5 RLE 5/5 LLE 5/5 DTR: Bi Tri BR Pat Ach Planter R 2 2 2 2 2 Down L 2 2 2 2 2 Down No tenderness to palpation in neck, back No Lhermitte sign Examination of Sensation: Touch: wnl Pin:wnl Vibration: wnl Joint & Position:wnl Cerebellar Coordination : Finger/Nose: intact Gait: Normal stride and stance Normal tandem Lab Review: Notes from outside provider All labs reviewed Impression: Migraines with aura Obesity MOOSE Sinus problem Labile Hyperetension Recommendations: To continue rimegepant (NURTEC) 75 MG tablet PRN To continue Gabapentin 100 mg (1) TID To follow Sleep speciality for MOOSE To see Weight professor of sport management for Obesity as scheduled To Add Galcanezumab-gnlm (EMGALITY) 120 MG/ML auto-injector pen monthly. The patient has failed??several??prophylactic migraine medications, each tried at therapeutic doses, each tried over the course of 2 months. Therefore, the patient is a good candidate to start the new CGRP modulating medication. To start Zonismaide 25 mg (1) HS To see Nephrology for labile HTN -Maintain headache diary -Lifestyle modification with regular exercise, regular meals, sleep hygiene, hydration Continue taking your current medications. No changes made today. Call if any questions arise. -Follow up in 4 months or if symptoms worsen or fail to improve. All pertinent questions were answered to patient's satisfaction during this clinical visit. Patient is to closely follow up with the primary physician for medical needs. Signed Electronically [facility] Department of Neurology 12/28/21 documented in this encounter Plan of Treatment [...] Diagnosis Intractable migraine with aura with status migrainosus- Primary Migraine with aura, with intractable migraine, so stated, with status migrainosus Labile hypertension Unspecified essential hypertension documented in this encounter Care Teams Adding Machine Servicer Relationship Specialty Start Date End Date Jonelle Elam MD [address] [place] [address] PCP - General Family Medicine 10/24/18 Manju Rainey DO [address] [place] [address] Bariatrics 08/11/20 documented as of this encounter
--- OUTSIDE RECORDS SUMMARY | 2024-04-14 17:44 | XMS_ITS | Encounter Summary ---
Author Organization [facility] Address [address] [place] [address] Care Team Providers Care Property Coordinator Name Role Phone Jonelle Elam MD Primary Care Provider Manju Rainey DO Unavailable Reason for Visit * Reason Comments Bariatric Surgery Pre-op Instruction Encounter Details Date Type Department Care Team (Late st Contact Info) Description 03/24/2021 3:30 PM CORRECTIONAL OFFICER LIEUTENANT Video Visit [facility] [address] [place] [id number] Carmen Lee, COAT OPERATOR INSULATOR-TAXI CAB DRIVER [address] [place] [address] BMI 50.0-59.9, adult ([facility]) ; Class 3 severe obesity due to excess calories with serious comorbidity and body mass index (BMI) of 50.0 to 59.9 in adult ([facility]); Pre-op exam; Gastroesophageal reflux disease without esophagitis; Vitamin D deficiency; Essential hypertension; NAFLD (nonalcoholic fatty liver disease); History of iron deficiency; Irritable bowel syndrome with both constipation and diarrhea; Adjustment disorder with mixed anxiety and depressed mood; Obstructive sleep apnea syndrome Social History Tobacco Use Types Packs/Day Years [...] Sign Reading Time Taken Comments Blood Pressure - - Pulse - - Temperature - - Respiratory Rate - - Oxygen Saturation - - Inhaled Oxygen Concentration - - Weight 137.8 kg (303 lb 14.4 oz) 03/24/2021 3:00 PM CORRECTIONAL OFFICER LIEUTENANT video Visit weight from one month ago Height 160 cm (5' 3 ) 03/24/2021 3:00 PM CORRECTIONAL OFFICER LIEUTENANT Body Mass Index 53.83 03/24/2021 3:00 PM CORRECTIONAL OFFICER LIEUTENANT documented in this encounter Progress Notes * Carmen Lee APRN-CNP - 03/24/2021 3:44 PM CST Images from the original note were not included. [facility] [place] [id number] PH: [phone] , Date of encounter: 03/24/2021 Provider: PARAS Cervantes Patient: Deya Campbell CSN: [id number] Specialty: Bariatric Surgery Date of : 1995 Patient Verification & Telemedicine Based Consent I am proceeding with this evaluation at the direct request of the patient. I have verified this is the correct patient and have obtained verbal consent from the patient/surrogate to perform this voluntary telemedicine encounter evaluation. I have explained risks (including potential loss of confiden tiality), benefits, alternatives, and the potential need for subsequent face to face care. Patient/surrogate understands that there is a risk of medical inaccuracies given that our recommendations will be made based on reported data. Knowing that there is a risk that this information is not reported accurately, and that the telemedicine audio, or data feed may be incomplete, the patient agrees toproceed with evaluation and holds us harmless knowing these risks. In this evaluation, we will be providing recommendations only. The patient/surrogate has been notified that other healthcare professionals (including students, residents and technical personnel) may be involved in this audio evaluation. All laws concerning confidentiality and patient access to medical records and copies of medicalrecords apply to telemedicine. I have reviewed this above verification and consent paragraph with the patient/surrogate. Visit type: Bariatrics Virtual Pre-operative follow up Deya Campbell 25 year old female, who is mutual patient with Jonelle Elam MD for telehealth visit for Bariatric Pre Operative Follow up. Bariatric Preop HPI Patient presents today via telehealth visit for Bariatric Pre Operative Follow up. Patient has requested Laparoscopic sleeve gastrectomy. She was previously scheduled for surgery on 02/17/2021 and cancelled it. Patient has completed 6 support group meetings. Patient is taking 60 grams of protein supplements daily. Patient is taking 50-64 oz of fluids per day. Patient is engaged in 30 -40 minutes of exercise 3 days a week. The patient has not been participating in NExT program. Weight change as in weight history below. Weight History: Initial Weight: 320 lb 11.2 oz. BMI 57.98 Date: 01/16/2020 02/12/2020 Weight: (!) 315 lb 1.6 oz (142.9 kg) BMI (Calculated): 56.96 Total Wt Loss in lb: 5.6 lb Initial neck 15.5 Initial waist 56 03/11/2020 Waist Change:not completed Weight: (!) 308 lb 3.2 oz (139.8 kg)(per pt) BMI (Calculated): 55.72 Weight Loss since last visit in lbs : 6.9 lb Total Wt Loss in lb: 12.5 lb 04/15/2020 Waist Change:unable to obtain Weight: (!) 309 lb 3.2 oz (140.3 kg) BMI (Calculated): 55.9 Weight Loss since last visit in lbs : +1 lb Total Wt Loss in lb: -11.5 lb 05/20/2020 Waist Change: --- Weight: (!) 303 lb 3.2 oz (137.5 kg)(per pt) BMI (Calculated): 54.81 Weight Loss since last visit in lbs : 6 lb Total Wt Loss in lb: 17.5 lb 06/17/2020 Waist Change:na Weight: (!) 301 lb 3.2 oz (136.6 kg)(per pt) BMI (Calculated): 54.45 Weight Loss since last visit in lbs : 2 lb Total Wt Loss in lb: 19.5 lb 08/12/2020 Waist Change:unable to obtain Weight: (!) 307 lb 3.2 oz (139.3 kg) (per pt ) BMI (Calculated): 55.54 Weight Loss since last visitin lbs : +4 lb Total Wt Loss in lb: 13.5 lb 10/27/2020 Waist Circumferece (inches): 56 Waist Change: Weight: (!) 320 lb (145.2 kg) BMI (Calculated): 58.51 Weight Loss since last visit in lbs : +12.8 lb Total Wt Loss in lb: 0.7 lb Restart BIV for Sleeve 11/05/2020 Weight: (!) 320 lb (145.2 kg) BMI (Calculated): 58.51 11/25/2020 Weight: (!) 313 lb (142 kg) BMI (Calculated): 55.46 12/30/2020 Weight: (!) 311 lb 3.2 oz (141.2 kg) BMI (Calculated): 56.9 Total Wt Loss in lb: 1.8 lb 01/19/2021 Weight: (!) 313 lb 6.4 oz (142.2 kg) BMI (Calculated): 57.31 Weight Loss since last visit in lbs : +2.2 lb Total Wt Loss in lb: +0.4 lb 02/09/2021 Weight: (!) 314 lb 3.2 oz (142.5 kg) BMI (Calculated): 55.67 Weight Loss since last visitin lbs : +0.8 lb Total Wt Loss in lb: +1.2 lb 03/24/2021 Weight: (!) 303 lb 14.4 oz (137.8 kg) (video Visit weight from one month ago) BMI (Calculated): 53.85 Weight Loss since last visit in lbs : 10.3 lb Total Wt Loss in lb: 9.1 lb Obesity History Years at current weight? 1 Years at 35 pounds overweight? Years 100 pounds overweight? Age patient started to diet? 11 Maximum weight reached? 328 Most significant weight loss: Amount of weight loss 30 lbs Months weight loss sustained 2-3 months Method of weight loss trying to exercise and not eating right Past Medical History: Diagnosis Date ??? Anxiety ??? Breast disorder history of breast lump-normal ??? Chronic hypertension 2011 ??? Diverticulitis ??? Fatty liver disease, nonalcoholic ??? Lumbar herniated disc 2015 Previously had physicial therapy and injections ??? Migraines ??? Morbid obesity ??? Palpitations Per patient ??? depression baby w/ 1st child ??? Sleep apnea Has not had a sleep study Past Surgical History: Procedure Laterality Date ??? Cataract Removal Left 2018 artificial lens ??? COLONOSCOPY ??? Tonsillectomy and Adenoidectomy 2002 ??? Tympanostomy 2001, 2002 Social History Socioeconomic History ??? Marital status: Spouse name: Not on file ??? Number of children: Not on file ??? Years of education: Not on file ??? Highest education level: Not on file Occupational History ??? Not on file Tobacco Use ??? Smoking status: Never Smoker ??? Smokeless tobacco: Never Used Vaping Use ??? Vaping Use: Never used Substance and Sexual Activity ??? Alcohol use: Not Currently ??? Drug use: Never ??? Sexual activity: Not on file Other Topics Concern ??? Not on file Social History Narrative ??? Not on file Social Determinants of Health Financial Resource Strain: Not on file Food Insecurity: Not on file Transportation Needs: Not on file Physical Activity: Not on file Stress: Not on file Social Connections: Not on file Intimate Partner Violence: Not on file Housing Stability: Not on file Family History Problem Relation Name Age of Onset ??? Hypertension Paternal Grandfather ??? Cancer - Colon Paternal Grandfather ??? Hypertension Paternal Grandmother ??? Hypertension Maternal Grandmother ??? Hypertension Maternal Grandfather ??? Diabetes - Type 2 Maternal Grandfather ??? Hypertension Father ??? Renal Disease Father ??? Diabetes - Type 1 Father ??? Hypertension Mother ??? Hypertension Brother ??? Renal Disease Brother ??? Seizures Brother Outpatient Medications Marked as Taking for the 03/24/21 encounter (Video Visit) with Carlee Lee APRN-CNP Medication Sig ??? amoxicillin (AMOXIL) 500 MG capsule every 12 hours ??? escitalopram (LEXAPRO) 10 MG tablet Take 10 mg by mouth once daily ??? losartan (COZAAR) 100 MG tablet Take 100 mg by mouth once daily ??? Multiple Vitamin (MULTIVITAMIN PO) Take 1 tablet by mouth once daily ??? omeprazole (PRILOSEC) 20 MG capsule Take 1 (one) capsule by mouth once daily Stop pantoprazole.Begin taking omeprazole post operatively. ??? Paragard Intrauterine Copper IUD ParaGard T 380A 380 square mm intrauterine device Take by intrauterine route. ??? vitamin D, cholecalciferol, 50 MCG (2000 UT) tablet Take 2,000 Units by mouth once daily ??? vitamin D, ergocalciferol, (DRISDOL) 1.25 MG (84912 UT) capsule Take 1 (one) capsule by mouth every 7 days Reasons: Vitamin D Deficiency Allergies Allergen Reactions ??? Levofloxacin Urticaria and Itching Chest pain, shortness of breath and pain and weakness in legs ??? Cephalexin Rash ??? Nifedipine Other Facial redness, palpitations ??? Labetalol Shortness of Breath Review of Systems Constitutional: Negative for chills and fever. Respiratory: Positive for shortness of breath. During exercise Cardiovascular: Negative for chest pain. Gastrointestinal: Positive for heartburn. Negative for abdominal pain, constipation, diarrhea, nausea and vomiting. Resolved with avoiding red sauce and soda Objective: Vital Signs: Ht 5' 3 (1.6 m) Wt 303 lb 14.4 oz (137.8 kg) BMI 53.83 kg/m2 Weight: (!) 303 lb 14.4 oz (137.8 kg) (video Visit weight from one month ago) Height: 5' 3 (160 cm) Body mass index is 53.83 kg/m??. Physical Exam Constitutional: General: She is not in acute distress. Appearance: She is obese. She is not ill-appearing. Pulmonary: Effort: Pulmonary effort is normal. No respiratory distress. Neurological: Mental Status: She is alert and oriented to person, place, and time. Psychiatric: Mood and Affect: Mood normal. Behavior: Behavior normal. Thought Content: Thought content normal. Judgment: Judgment normal. Labs Recent Labs Component Name 12/02/20 1434 WBC 7.3 RBC 4.82 HGB 12.6 HCT 38.7 PLTCOUNT 196 Recent Labs Component Name 12/02/20 1434 POTASSIUM 4.0 CO2 25 BUN 12 CREATININE 0.63 Recent Labs Component Name 12/02/20 1434 GLUCOSE 88 Recent Labs Component Name 12/02/20 1434 04/12/19 1514 01/02/19 1236 AST 19 16 20 ALT 33 12 24 Recent Labs Component Name 12/02/20 1434 HDL 53 TRIG 186* Recent Labs Component Name 12/02/20 1434 HGBA1C 5.7 Recent Labs Component Name 12/02/20 1434 PT 13.2 PTT 25.0 INR 1.0 Recent Labs Component Name 12/02/20 1434 TSH 0.811 Recent Labs Component Name 12/02/20 1434 IRON 46 Some lab results will be in paper format so may be scanned in the EMR. Imaging studies No results found. Some Imaging studies results will be in paper format so may be scanned in the EMR. Assessment and Plan (Z68.43) BMI 50.0-59.9, adult (primary encounter diagnosis) (E66.01, Z68.43) Class 3 severe obesity due to excess calories with serious comorbidity and body mass index (BMI) of 50.0 to 59.9 in adult (Z01.818) Pre-op exam (K21.9) Gastroesophageal reflux disease without esophagitis (E55.9) Vitamin D deficiency (I10) Essential hypertension (K76.0) NAFLD (nonalcoholic fatty liver disease) (Z86.39) History of iron deficiency (K58.2) Irritable bowel syndrome with both constipation and diarrhea (F43.23) Adjustment disorder with mixed anxiety and depressed mood (G47.33) Obstructive sleep apnea syndrome (Z68.43) BMI 50.0-59.9, adult (primary encounter diagnosis) (E66.01, Z68.43) Class 3 severe obesity due to excess calories with serious comorbidity and body mass index (BMI) of 50.0 to 59.9 in adult (Z01.818) Pre-op exam Patient has a 3-6 month mandated supervised diet requirement as per insurance company and patient has completed completed 5 months. Will plan for Laparoscopic sleeve gastrectomy; patient has completed all necessary presurgical requisites. She was scheduled for surgery 02/17/2021 but opted to cancel at that time. Patient now feelsready to proceed with surgery when it can be scheduled. Meanwhile, patient will continue lifestyle changes, attended support group meetings and physical exercises. ?? ---Patient is NOT a candidate for outpatient sleeve per Dr. Bojorquez's guidelines as patient IS NOT vaccinated, BMI is 57 and she has untreated MOOSE. ?? (K21.9) Gastroesophageal reflux disease without esophagitis Reports that she does experience reflux - reports related to intake of red sauce (tomato based). Currently takes pantoprazole 40 mg PO daily. ?? (E55.9) Vitamin D deficiency Currently taking vitamin-D supplement 2000 units by mouth daily and Ergocalciferol 50,000 units by mouth once weekly. Vitamin-D level obtained on 10/17/2020 showed vitamin-D level at 20. Will monitorpost op labs at 3 months, 6 months and one year. ?? (I10) Essential hypertension Currently takes losartan for management. No blood pressure available today as this was a telehealthvisit. Will defer to primary care provider for continued monitoring and management. ?? (K76.0) NAFLD (nonalcoholic fatty liver disease) Patient follows with Dr. Maribel Kitchen, yard driver, at [facility]; per previous scan liver shows changesquestionable for cirrhosis. Patient reported at previous visit that Dr. Kitchen recommended liver biopsy. She will continue to follow with hepatology for continued monitoring and management. ?? (Z86.39) History of iron deficiency Lab done 10/17/2020 showed iron remained low 27.90. She is no longer taking vitamin supplements other than the multivitamin. Will monitor postoperatively at 3 months, 6 months in 1 year. ?? (K58.2) Irritable bowel syndrome with both constipation and diarrhea Will defer to primary care provider / correctional sergeant for continued monitoring and management. ?? (F43.23) Adjustment disorder with mixed anxiety and depressed mood Currently takes Escitalopram for management. Will defer to primary care provider for continued monitoring and management. ?? (G47.33) Obstructive sleep apnea Patient reports having been diagnosed with sleep apnea; denies using CPAP for management. PLAN: - show weight loss at each visit - measuring all oral intake (foods, drinks, snacks) - tracking all oral intake (foods, drinks, snacks) - keep intake of sugars at 15 grams or less per day - keep intake of fats at 15 grams or less per day. - work on structured exercise regimen focusing on upper body at this time. Goal is 150 minutes of cardio per week with 2-4 days of resistance. - females of child bearing age advised to avoid prior to surgery and for minimum of 18 months post operatively. Follow up: Will see the provider and RD in 1 month(s). Today's visit was conducted virtually due to COVID-19 countermeasures. The patient has given verbalconsent to have today's visit conducted by this same means with treatment provided remotely. The patient verbally consents to the billing and collection practices of [facility]. Patient location: Home Provider location: [facility] This encounter was performed using: audio and video Time spent with patient/proxy: 17 minutes More than 50% of the time was spent in education and counseling. The plan was reviewed with the patient and the patient confirmed understanding of the plan and all follow-up steps. Patient is agreeable with this plan after shared decision making with patient. All aspects of patient's medical history were reviewed and updated as documented in Epic PARAS Cervantes CC: Jonelle Elam MD ECTIONAL OFFICER LIEUTENANT documented in this encounter Plan of Treatment [...] as of this encounter Visit Diagnoses Diagnosis BMI 50.0-59.9, adult (HCC)- Primary Body Mass Index 50.0-59.9, adult Class 3 severe obesity due to excess calories with serious comorbidity and body mass index (BMI) of 50.0 to 59.9 in adult ([facility]) Pre-op exam Preoperative examination, unspecified Gastroesophageal reflux disease without esophagitis Esophageal reflux Vitamin D deficiency Essential hypertension NAFLD (nonalcoholic fatty liver disease) Other chronic nonalcoholic liver disease History of iron deficiency Personal history of diseases of blood and blood-forming organs Irritable bowel syndrome with both constipation and diarrhea Adjustment disorder with mixed anxiety and depressed mood Obstructive sleep apnea syndrome Obstructive sleep apnea (adult) (pediatric) documented in this encounter Care Teams Property Coordinator Relationship Specialty Start Date End Date Jonelle Elam MD [address] [place] [address] [place] [id number] PCP - General Family Medicine 10/24/18 Manju Rainey DO [address] [place] [address] Bariatrics 08/11/20 documented as of this encounter
--- OUTSIDE RECORDS SUMMARY | 2024-04-14 17:44 | XMS_ITS | Encounter Summary ---
Author Organization [facility] Address [address] [place] [address] Care Team Providers Care Cook Pressure Name Role Phone Jonelle Elam MD Primary Care Provider [phone] Manju Rainey DO Unavailable [phone] Encounter Details Date Type Department Care Team (Latest Contact Info) Description 02/14/2021 Travel Social History Tobacco Use Types Packs/Day [...] or suspected to have Coronavirus / COVID-19? No / Unsure 02/14/2021 10:58 AM TRACK LAYER HEAD documented as of this encounter Plan of Treatment Not on file documented as of this encounter Goals Goal Patient Goal Type Associated Problems Recent Progress Patient-Stated? Author Medication Management General On track( 023 9:23 AM CDT) No Gabriella Moon, RN Note: Expected end date: ongoing Interventions: Take all medications as prescribed Safety General On track( 021 11:18 AM CDT) No Gabriella Moon, RN Note: Expected end date: ongoing Interventions: Your nurse will assess your risk for falls/injury each visit documented as of this encounter Visit Diagnoses Not on filedocumented in this encounter Care Teams Cook Pressure Relationship Specialty Start Date End Date Jonelle Elam MD [address] [place] [address] [place] [id number] PCP - General Family Medicine 10/24/18 Manju Rainey DO [address] [place] [address] Bariatrics 08/11/20 documented as of this encounter
--- OUTSIDE RECORDS SUMMARY | 2024-04-14 17:44 | XMS_ITS | Encounter Summary ---
Author Organization [facility] Address [address] [place] [address] Care Team Providers Care Adult School Counselor Name Role Phone Jonelle Elam MD Primary Care Provider [phone] Manju Rainey DO Unavailable [phone] Encounter Details Date Type Department Care Team (Late st Contact Info) Description 12/31/2021 Orders Only [facility] [address] [place] [address] Reena Pollock, APNP-CORK COMPOUNDER [address] [facility] [address]L DIV OF PULMONARY/[place] [address] Social History Tobacco Use Types Packs/Day Years [...] on filedocumented in this encounter Care Teams Adult School Counselor Relationship Specialty Start Date End Date Jonelle Elam MD [address] [place] [address] [place] [address] PCP - General Family Medicine 10/24/18 Manju Rainey DO [address] [place] [address] Bariatrics 08/11/20 documented as of this encounter
--- OUTSIDE RECORDS SUMMARY | 2024-04-14 17:44 | XMS_ITS | Encounter Summary ---
Author Organization [facility] Address [address] [place] [address] Care Team Providers Care Printed Circuit Board Pcb Draftsman Name Role Phone Jonelle Elam MD Primary Care Provider Manju Rainey DO Unavailable Skylar Canales PA-C Unavailable [phone] Reason for Visit * Reason Comments Hypertension Follow-up Encounter Details Date Type Department Care Team (Late st Contact Info) Description 04/22/2022 9:30 AM STAFFING OPERATIONS MANAGER Office Visit [facility] - Nephrology [address] [place] [address], [place] [address] Skylar Canales PA-C [address] [place] [address] [address] [place] [phone] Essential hypertension (Primary Dx); Renal artery stenosis (HCC) Social History Tobacco Use Types Packs/Day [...] Coronavirus/COVID-19? No / Unsure 04/22/2022 9:05 AM STAFFING OPERATIONS MANAGER documented as of this encounter Last Filed Vital Signs Vital Sign Reading Time Taken Comments Blood Pressure 123/67 04/22/2022 9:29 AM STAFFING OPERATIONS MANAGER Pulse 85 04/22/2022 9:29 AM STAFFING OPERATIONS MANAGER Temperature 36.7 ??C (98 ??F) 04/22/2022 9:29 AM STAFFING OPERATIONS MANAGER Respiratory Rate 18 04/22/2022 9:29 AM STAFFING OPERATIONS MANAGER Oxygen Saturation 100% 04/22/2022 9:29 AM STAFFING OPERATIONS MANAGER Inhaled Oxygen Concentration - - Weight 154.2 kg (340 lb) 04/22/2022 9:29 AM STAFFING OPERATIONS MANAGER Height - - Body Mass Index 62.19 03/23/2022 9:25 AM STAFFING OPERATIONS MANAGER documented in this encounter Progress Notes * Skylar Canales PA-C - 04/22/2022 9:22 AM CST Hypertension Clinic Note Date of Visit: 04/22/2022 Time of Visit: 9:23 AM Chief Complaint Patient presents with ??? Hypertension Follow-up Subjective: Patient is a 26 year old White/ female who presents for evaluation of labile HTN. PMH is also significant for: Patient Active [...] (gastroesophageal reflux disease) ??? Lumbar herniated disc Prev Hx: Patient notes longstanding HTN most [...] yo son also with HTN development already. New hx: At last visit pt started on spironolactone (IUD in place) and has noticed a substantial improvementin BP, HAs, and general well being throughout day. Denies any SE from current regimen. US evaluation showed ovarian cyst which is being further worked up by patient's MANUFACTURING PRODUCTION TECHNICIAN. MARIAA with normal appearing kidneys, however diffusely increased velocities in bilateral renal arteries concerning for stenosis >50-60%. Pt has an upcoming appt with [facility] for worsening LE claudication for which angioplasty likely. Genetic testing done after last encounter (Renasight panel) which was negative. Pt denies CP, JOLEEN, LI, shortness of breath, or abd changes at this time. Outpatient Medications Marked as Taking for the 04/22/22 encounter (Office Visit) with [facility] NE[facility] HYPERTENSION Medication Sig ??? amLODIPine (Norvasc) 10 MG tablet Take 1 (one) tablet by mouth once daily ??? fluticasone-salmeterol (Advair/Wixela) 100-50 MCG/ACT inhaler Inhale 1 (one) puff by mouth 2 times daily Rinse mouth/throat well and spit after use. ??? furosemide (Lasix) 40 MG tablet Take 1 (one) tablet by mouth every morning ??? gabapentin (NEURONTIN) 100 MG capsule Take 1 (one) capsule by mouth 3 times daily ??? Iron, Ferrous Sulfate, 325 (65 Fe) MG TABS Take by mouth once daily ??? losartan (Cozaar) 100 MG tablet Take 1 (one) tablet by mouth once daily ??? metFORMIN ER 24hr (Glucophage XR) 500 MG tablet Take 1 (one) tablet by mouth every evening ??? metoprolol tartrate IR (Lopressor) 50 MG tablet Take 1 (one) tablet by mouth 2 times daily ??? Multiple Vitamins-Minerals (Womens Multivitamin) TABS Take 1 tablet by mouth once daily ??? omeprazole (PriLOSEC) 20 MG capsule Take 1 (one) capsule by mouth once daily ??? PARAGARD INTRAUTERINE COPPER IU ??? rimegepant (NURTEC) 75 MG tablet Take 75 mg by mouth once daily as needed for Migraine ??? spironolactone (Aldactone) 25 MG tablet Take 1 (one) tablet by mouth once daily ??? vitamin D, cholecalciferol, 50 MCG (2000 [...] redness, palpitations ??? Labetalol Shortness of Breath Past Surgical [...] Smokeless tobacco: Never Vaping Use ??? Vaping Use: Never used Substance Use Topics ??? Alcohol use: Not Currently Comment: gets sick when drinks ??? Drug use: Not Currently Comment: marijuana a few times in past Objective: Vitals: 04/22/22 0929 BP: 123/67 Pulse: 85 Resp: 18 Temp: 98 ??F (36.7 ??C) SpO2: 100% Weight: (!) 154.2 kg (340 lb) Estimated body mass index is 63.28 kg/m?? as calculated from the following: Height as of 03/23/22: 1.575 m (5' 2 ). Weight as of 03/23/22: 156.9 kg (346 lb). General: Alert, cooperative, no distress, appears stated age. Head/Neck: Normocephalic, without obvious abnormality, atraumatic. Neck symmetrical, trachea midline. ENT/Mouth: Conjunctivae/corneas clear. Mask in place. CV: Regular rate and rhythm, S1, S2 normal, no murmur, click, rub or gallop. Pulses decreased BLE, no lower extremity edema. Respiratory: Clear to auscultation bilaterally. M/S: Back symmetric, no curvature. ROM normal. Extremities normal, atraumatic, no cyanosis. Skin: Skin color normal. No rashes or lesions. Psychiatric: Normal range mood/affect. Data Review Recent Labs Component Name 03/04/22 1041 12/02/20 1434 WBC 6.9 7.3 RBC 4.93 4.82 HGB 13.1 12.6 HCT 40.0 38.7 MCV 81.1 80.3* MCH 26.6* 26.1* MCHC 32.8 32.6 RDWSD 38.6 40.4 RDW 13.3 13.8 MPV 9.3* 11.2 NRBCABS 0.00 0.00 NRBCAUTOPCT 0.0 0.0 NEUTPCT 63.6 56.9 LYMPHSPCT 27.6 33.0 MONOPCT 5.4 7.3 EOSPCT 1.9 1.8 BASOPCT 0.9 0.7 IMMGRANSPCT 0.6 0.3 NEUTABS 4.38 4.2 LYMPHS 1.90 2.4 MONO 0.37 0.53 EOS 0.13 0.13 BASO 0.06 0.05 Recent Labs Component Name 03/04/22 1041 10/22/21 1317 04/27/21 1102 12/02/20 1434 04/17/20 1507 04/12/19 1514 01/02/19 1236 BUN 9 - - 12 - - - CREATININE 0.55* - - 0.63 - - - NA 138 - - 142 - - - POTASSIUM 3.8 - - 4.0 - - - CL 102 - - 105 - - - CO2 25 - - 25 - - - CALCIUM 9.9 - - 9.9 - - - PROT - - - 7.2 - 7.8 8.1 ALB 4.2 - - 4.2 - 3.9 4.5 TBILI - - - 0.6 - 0.7 0.8 ALKPHOS - - - 66 - 55 71 ALT - - - 33 - 12 24 AST - - - 19 - 16 20 ANIONGAP 15 - - 16 - - - BCR 16 - - 19 - - - OSMOLALITY 285 - - 293 - - - AGRATIO - - - 1.4 - 1.0* 1.3 EGFR >90 >90 >60 >90 - - - - = values in this interval not displayed. Recent Labs Lab 03/04/22 1041 12/02/20 1434 TSH 0.926 0.811 Recent Labs Component Name 03/04/22 1041 12/02/20 1434 HGBA1C 5.9* 5.7 EAG 123 117 Recent Labs Component Name 03/04/22 1041 12/02/20 1434 PTHINTACT 70.5 25.2 Encounter Diagnoses: 1. Essential hypertension Assessment & Plan: Part of plan discussed via phone due to delay in receiving MARIAA final results. -- Blood Pressure: Doing well on current regimen and to continue. Based on patient peripheral vessel disease, NAFLD, metabolic syndrome discussed that stenosis in renal arteries could be related to diffuse vascular disease vs a stenotic lesion amenable to stenting vs fibromuscular dysplasia. Patient would like to investigate option of intervention with her rn field, willrelay accordingly for recommendations. -- Renal function: S Cr normal, low degree of proteinuria. -- Medication Changes: none -- Return to Clinic in 4 month and as needed. [facility] INSURANCE BILL [id number] [facility] [id number] JIMMY Zavala, PAAmbroseC Internal Medicine, Div of Nephrology Hypertension Clinic Collaborating MD: Dr Valarie Landin FING OPERATIONS MANAGER documented in this encounter Plan of Treatment [...] encounter Visit Diagnoses Diagnosis Essential hypertension- Primary Renal artery stenosis (HCC) Atherosclerosis of renal artery documented in this encounter Care Teams Printed Circuit Board Pcb Draftsman Relationship Specialty Start Date End Date Jonelle Elam MD [address] [place] [address] [place] [address] PCP - General Family Medicine 10/24/18 Manju Rainey DO [address] [place] [address] Bariatrics 08/11/20 Skylar Canales PA-C [address] [facility] [place] [phone] Physician Copy Clerk Nephrology 03/04/22 documented as of this encounter
--- OUTSIDE RECORDS SUMMARY | 2024-04-14 17:44 | XMS_ITS | Encounter Summary ---
Author Organization [facility] Address [address] [place] [address] Care Team Providers Care Implementation Coordinator Name Role Phone Jonelle Elam MD Primary Care Provider [phone] Manju Rainey DO Unavailable [phone] Reason for Visit * Reason Onset Date Comments Medication Prior Auth Request 09/01/2021 Encounter Details Date Type Department Care Team (Late st Contact Info) Description 09/01/2021 Telephone [facility] [address] [place] [address], [facility] [place] [phone] Jeff Bird APRN-JOSETTE [address] [place] [address] [place] [phone] Medication Prior Auth Request Social History Tobacco [...] Telephone Encounter - Margy Sharma RN - 09/06/2021 11:56 AM CDT Nurtec 75mg tablets approved by Ya from 09/04/21-09/04/22. Informed patient. * Telephone Encounter - Margy Sharma RN - 09/03/2021 3:24 PM CDT Denial appeal for the Nurtec 75m tablets initiated via fax with Ya to . Included signed footwear sales representative auth form, LMN and last visit note. Will await a response. Tracking #[id number]. * Telephone Encounter - Margy Sharma RN - 09/01/2021 12:49 PM CDT Electronic PA denied for Nurtec 75mg due to the below: 1. You must have a diagnosis of migraine 2. Your chart notes must how you have tried and failed two drugs and inadequate respone or intolerance to two triptan agents up to maximally tolerated doses OR 3. You notes must show you have a medicatl reason for not taking the preferred drugs. Ya [facility] Authorized Pathology Laboratory Technologist Designation form sent to patient via [employer] attachmentto sign and send back via [employer] and we will then initiate the appeal. documented in this encounter Plan of Treatment [...] on filedocumented in this encounter Care Teams Implementation Coordinator Relationship Specialty Start Date End Date Jonelle Elam MD [address] [place] [address] [place] [id number] PCP - General Family Medicine 10/24/18 Manju Rainey DO [address] [place] [address] Bariatrics 08/11/20 documented as of this encounter
--- OUTSIDE RECORDS SUMMARY | 2024-04-14 17:44 | XMS_ITS | Encounter Summary ---
Author Organization [facility] Address [address] [place] [address] Care Team Providers Care Special Forces Medical Sergeant Name Role Phone Jonelle Elam MD Primary Care Provider [phone] Manju Rainey DO Unavailable [phone] Encounter Details Date Type Department Care Team (Latest Contact Info) Description 02/04/2021 Travel Social History Tobacco Use Types Packs/Day [...] or suspected to have Coronavirus / COVID-19? Unable to assess 02/04/2021 1:33 PM CDT documented as of this encounter Plan [...] on filedocumented in this encounter Care Teams Special Forces Medical Sergeant Relationship Specialty Start Date End Date Jonelle Elam MD [address] [place] [address] [place] [phone] PCP - General Family Medicine 10/24/18 Manju Rainey DO [address] [place] [address] Bariatrics 08/11/20 documented as of this encounter
--- OUTSIDE RECORDS SUMMARY | 2024-04-14 17:44 | XMS_ITS | Encounter Summary ---
Author Organization [facility] Address [address] [facility] [place] [address] Care Team Providers Care Climate Change Risk Assessor Name Role Phone Jonelle Elam MD Primary Care Provider [phone] Manju Rainey DO Unavailable [phone] Skylar Canales PA-C Unavailable [phone] Encounter Details Date Type Department Care Team (Latest Contact Info) Description 04/22/2022 Travel Social History Tobacco Use Types Packs/Day [...] Coronavirus/COVID-19? No / Unsure 04/22/2022 9:05 AM RUBBER TUBING SPLICER documented as of this encounter Plan of [...] on filedocumented in this encounter Care Teams Climate Change Risk Assessor Relationship Specialty Start Date End Date Jonelle Ealm MD [address] [place] [phone] PCP - General Family Medicine 10/24/18 Manju Rainey DO [address] [place] [address] Bariatrics 08/11/20 Skylar Canales PA-C [address] [facility] [address] [place] [phone] Physician Florist Nephrology 03/04/22 documented as of this encounter
--- OUTSIDE RECORDS SUMMARY | 2024-04-14 17:44 | XMS_ITS | Encounter Summary ---
Author Organization [facility] Address [address] [place] [address] Care Team Providers Care Nuclear Equipment Test Engineer Name Role Phone Jonelle Elam MD Primary Care Provider [phone] Manju Rainey DO Unavailable [phone] Reason for Referral * Procedure (Routine) - Closed Specialty Diagnoses / Procedures Referred By Ritika bonner Referred To Contact Diagnoses Essential hypertension BMI 60.0-69.9, adult (HCC) Nasal congestion SOB (shortness of breath) on exertion Family history of asthma Procedures BRONCHIAL CHALLENGE WITH METHACHOLINE Reena Pollock APNP-CNP [address] [facility] [address] [facility] OF PULMONARY/[place] [address] [facility] [address] [place] [address] Referral ID Status Reason Start Date Expiration Date Visits Re quested Visits Authorized [id number] Closed 11/03/2021 11/03/2022 1 1 * Procedure (Routine) - Closed Specialty Diagnoses / Procedures Referred By Ritika bonner Referred To Contact Diagnoses MOOSE (obstructive sleep apnea) Essential hypertension BMI 60.0-69.9, adult (HCC) Nasal congestion SOB (shortness of breath) on exertion Family history of asthma Procedures COMPLETE PFT Reena Pollock APNP-CNP [address] [facility] [address] [facility] OF [facility]ULMONARY/[place] [address] [facility] [address] [place] [address] Referral ID Status Reason Start Date Expiration Date Visits Re quested Visits Authorized Closed 11/03/2021 11/03/2022 1 1 * Procedure (Routine) - Closed Specialty Diagnoses / Procedures Referred By Ritika bonner Referred To Contact Sleep Center Diagnoses MOOSE (obstructive sleep apnea) Essential hypertension BMI 60.0-69.9, adult (HCC) Sleep related headaches Chronic fatigue Daytime sleepiness Restless sleeper Weight gain Sleep talking Confusional arousals Sleep drunkenness 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 Excessive Sleepiness Breathing Problem Fatigue * Evaluate & Treat (Routine) - Closed Specialty Diagnoses / Procedures Referred By Ritika bonner Referred To Contact Sleep Medicine / Sleep Center Diagnoses MOOSE (obstructive sleep apnea) Settu, Karpagam, COPPERSMITH HELPER-AIR DRIER [address] [place] [address] Reena Pollock APNP-CNP [address] [place] [address] Referral ID Status Reason Start Date Expiration Date V isits Requested Visits Authorized [id number] Closed Specialty Services Required 08/27/2021 08/27/2022 1 1 Encounter Details Date Type Department Care Team (Late st Contact Info) Description 11/03/2021 10:20 AM CDT Office Visit [facility] [address] [place] [address] Jeff Bird APRN-CNP [address] [place] [address] Reena Pollock APNP-CNP [address] DIV OF PULMONARY/[place] [address] MOOSE (obstructive sleep apnea) (Primary Dx); Essential hypertension; BMI 60.0-69.9, adult (HCC); Sleep related headaches; Inadequate sleep hygiene; Chronic fatigue; Daytime sleepiness; Restless sleeper; Weight gain; Sleep talking; Confusional arousals; Sleep drunkenness; Sleep related rhythmic movement disorder; Sleep related bruxism; Hypnic jerks; Restless legs syndrome (RLS); Chest pain, unspecified type; Generalized anxiety disorder; Excessive caffeine intake; Migraine without status migrainosus, not intractable, unspecified migraine type; Nasal congestion; SOB (shortness of breath) on exertion; Family history of asthma Social History Tobacco Use Types Packs/Day Years Used Date Smoking Tobacco: Never Smokeless Tobacco: Never Tobacco Cessation:Counseling Given: No Alcohol Use Standard Drinks/Week Comments Not Currently [...] Sign Reading Time Taken Comments Blood Pressure 136/81 11/03/2021 10:20 AM CDT Pulse 87 11/03/2021 10:20 AM CDT Temperature - - Respiratory Rate - - Oxygen Saturation - - Inhaled Oxygen Concentration - - Weight 154.2 kg (340 lb) 11/03/2021 10:20 AM CDT Height 154.9 cm (5' 1 ) 11/03/2021 10:20 AM CDT Body Mass Index 64.24 11/03/2021 10:20 AM CDT documented in this encounter Patient Instructions * Patient Instructions* Tasneem Mtz - 11/03/2021 11:44 AM CDT [facility], First Floor, [address] MRN# Intersection of [facility] [address] [place] [address] Date of Sleep Study:01/09/2022 Arrive by 08:30 pm you will leave by 11:00 am the following morning. PRE-TEST INSTRUCTIONS: 2-3 days prior to your test, sleep 8 hours nightly with regular sleep and wake times. Do not drink caffeine and do not nap after 11 am the day of your test. Follow any special instructions given by your doctor regarding medication changes and changes in smoking or alcohol consumption. Shower the day of your test, but DO NOT USE lotion on your skin or oily conditioners on your hair (these interfere with applying the electrodes). WHAT TO BRING the evening of the test: comfortable pajamas, shorts, sweats, etc. (two-piece clothing only please) toothbrush & toothpaste, comb, facial cleanser, wash cloth & towel (if removing electrode glue residue while you're here) ALL MEDICATIONS Insurance card(s) and picture ID, if this is your first visit at the Sleep Center Day time nap patients need to bring lunch in a lunch box or bag marked with your name. We can storethis in our office refrigerator for you. To help maintain cleanliness, we ask that you bring oglal-gn-dgv items such as a sandwich, apple, etc. Optional items to bring: your own pillow if you have a preference, ours are somewhat firm and flat a book to read or something to help pass the time while waiting a container with a lid if you want something to drink while you wait or when you wake up There is a TV, chair and a bathroom in your room. No food is provided and we ask that you do not have any open food in your room. For any changes to your Sleep test ON THE EVENING OF THE TEST; call [phone] to speak to or leave a message for the in-clinic evening [facility]. If you are unable to come, kindly call us in advance at [facility]. Obtaining authorization for a sleep test is often very difficult and time consuming. Therefore, if you have any insurance changes, please notify our office staff immediately to prevent the cancelation of your test. We need 1-2 weeks or more to get an insurance approval. documented in this encounter Progress Notes * Reena Pollock APNP-JOSETTE - 11/03/2021 10:18 AM CDT Images from the original note were not included. Deya Campbell 1995 11/03/2021 Patient location: clinic with mom Time allotted for visit by Johnny 40 minutes Jeff Bird APRN-AIR DRIER [address] [place] [address] Chief Complaint Patient presents with ??? Sleep Problem Neck size 17.5 inches. ??? Excessive Sleepiness ??? Breathing Problem ??? Fatigue HPI: Patient has never had a previous sleep evaluation. Son has MOOSE on cpap, dad has moose on pap, mom snores loudly. Spouse sleeps in different room. Light sleeper since children born. Ever since she can remember even as a child snoring and some gasping for air. Migraines started in later teens, butheadaches since preteens. Now has severe migraines daily, saw neuro. Wakes daily with headache. Also notes memory issues and cataracts. Was thinking about bariatric surgery last year but afraid to fail. Did not get good support. Symptoms have been going on for 15 years. 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 B/o cataracts does not drive much. Chamberlain Sleep Scale - 15 Fatigue Severity Scale -56 Sleep Schedule: Works from [employer]-- 5 or 7 am to 4 or 7 pm 95-98 hrs/2 weeks Bedtime Weekdays 11 pm to MN Weekends/Off days 11 pm to 2 am Daughter on abnormal sleep schedule and awake a lot at night Fall asleep minutes/hours 30 minutes Number Times Awake/ Reason Total almost hourly, Daughter making noises (lost a child to sids), Bathroom 0-1x rare, Breathing problems gasping sometimes Back to Sleep 30-45 minutes Awake Time/Alarm 5-7 AM Alarm Yes multiple 30-35 starting 1 hour before Rise Time 10 minute(s) Weekends/off days 7-9 AM Naps Yes nap 1 hour weekdays SLEEP REVIEW OF SYSTEMS: Sleep hygiene: Pertinent positives: cool room, TV on all night, cell phone within 2 hours of bedtime and no exercise 3-4 hours before bedtime Pertinent negatives: dark room, quiet room, TV off, computer/laptop/tablet within 2 hours bedtime, regular bed time within 1 hour, regular wake time within 1 hour, no dinner 3-4 hours before bedtime,use of bed only for sleep/sex, no reading or screens, no fluids 3-4 hours before bed, no caffeine at least 3-4 hours before bed and no worrying in bed Sleep position: prone and restless sleeper, trouble sleeping supine-back pain and uncomfortable, snores more Feeling upon awakening: not refreshed, sleepy/tired, achy (musculoskeletal), morning headache 7 times a week lasting all day and dryness of the mouth/throat Time most tired: after lunch Snoring intensity: [place] when outside room, door closed Witnessed apneas: Yes Snort arousals: Yes Mouth breather: Yes Nasal congestion: No Night sweats: No Use of fan at night: No Weight gain: Yes - 150lbs in the past 5 years Reported collar size: in. Parasomnias: Pertinent positives: sleep paralysis 1x sleep talking nightmares-after watching scary movies, now maybe monthly confusional arousals sleep drunkenness rhythmic movements: leg-shaking bruxism-has guard but does not wear, face hurts in am notes hypnic jerks Restless legs/limbs: yes: Location: legs/calves and hands Quality: urge to move Activity during onset: sitting lying TIme of onset/aggravation:anytime Relieving factors: walking, rubbing/massaging and stretching Periodic limb movements: Yes spouse says she kicks and pushes Neuropathic pain: No, topamax made hands numb Systemic ROS: Elements of the following systems were reviewed: cardiac, pulmonary, gastrointestinal, genito-urinary, neurological, eye, ear, nose, throat, musculoskeletal and endocrine Pertinent positives: chest pain/angina 3-4x/wk day and night, thinks may be r/t anxiety or panic heartburn/acid reflux stopped meds, diet related exertional dyspnea: Moderate exertion---walk distance 8 blocks, flights/stairs 2 orthopnea wake up gasping for air poor concentration ruminating thought clock watching nocturia: frequency 0-1x/night c/o ovarian cysts, heavy periods and cramping wears glasses blurry vision with HTN reduced hearing-has seen ERNESTINA joint pain-a lot of stiffness and pain, herniated disc muscle aches- not as many cramps as previous, maybe 6x/yr All other systems unremarkable. PAST MEDICAL HISTORY: Past Medical History: Diagnosis Date ??? 26 [...] 127 H/H: 10.8/32.3 HIV and RPR NR PSYCHIATRIC HISTORY: Patient reports: anxiety, panic disorder, depression and obsessive/compulsive disorder-cleaning. Thinks she may have bipolar disorder. Patient denies history of: attention-deficit hyperactivity disorder (ADHD), dementia, schizophreniaand suicide attempt PAST SURGICAL HISTORY: Past Surgical History: Procedure Laterality Date ??? Cataract Removal Left 2018 artificial lens ??? COLONOSCOPY ??? Tonsillectomy and Adenoidectomy 2002 ??? Tympanostomy 2001, 2002 Denies history of: bariatric (obesity) surgery, cleft palate repair, mouth or facial surgery, and nasal trauma or surgery ALLERGIES: Allergies Allergen Reactions ??? Levofloxacin Urticaria and Itching Chest pain, shortness of breath and pain and weakness in legs ??? Cephalexin Rash ??? Nifedipine Other Facial redness, palpitations ??? Labetalol Shortness of Breath MEDICATIONS: Current Outpatient Medications: ??? escitalopram (LEXAPRO) 10 MG tablet, Take 10 mg by mouth once daily, Disp: , Rfl: ??? gabapentin (NEURONTIN) 100 MG capsule, Take 1 (one) capsule by mouth 3 times daily, Disp: 270 capsule, Rfl: 3 ??? Iron, Ferrous Sulfate, 325 (65 Fe) MG TABS, Take by mouth once daily, Disp: , Rfl: ??? losartan-hydroCHLOROthiazide (HYZAAR) 100-25 MG tablet, losartan 100 mg- hydrochlorothiazide 25 mg tablet TAKE 1 TABLET BY MOUTH EVERY DAY, Disp: , Rfl: ??? PARAGARD INTRAUTERINE COPPER IU, , Disp: , Rfl: ??? rimegepant (NURTEC) 75 MG tablet, Take 75 mg by mouth once daily as needed for Migraine, Disp: 8 tablet, Rfl: 11 ??? vitamin D, cholecalciferol, 50 MCG (2000 UT) tablet, Take 2,000 Units by mouth once daily, Disp: , Rfl: ??? vitamin D, ergocalciferol, (DRISDOL) 1.25 MG (99787 UT) capsule, Take 1 (one) capsule by mouth every 7 days Reasons: Vitamin D Deficiency, Disp: 4 capsule, Rfl: 3 IMMUNIZATIONS: Immunization History Administered Date(s) Administered ??? DTaP 03/07/1996, 10/07/1999 ??? FLU VACCINE QUAD IIV4 SPLIT 0.25 ML IM 01/28/2016 ??? FLU VACCINE QUAD IIV4 SPLIT PF IM 02/18/2014, 03/06/2015, 03/15/2017, 01/26/2018, 01/03/2019, 01/01/2020 ??? FLU VACCINE TRI IIV3 SPLIT PF IM (FLUVIRIN) 01/30/2013 ??? HEP B VACCINE, PED/ADOL 1994, 1994, 09/14/1995 ??? HIB-PRP-OMP 3 DOSE 03/07/1996 ??? Human Papilloma Virus Quadrivalent Vaccine 11/27/2006, 02/12/2007, 01/08/2008 ??? MENINGOCOCCAL CONJUGATE (MCV4P) 10/27/2008 ??? MMR 12/07/1995, 10/07/1999, 08/02/2018 ??? MODERNA SARS-COV-2 COVID-19 VACCINE 0.5ML 02/04/2021 ??? POLIO IPV 10/07/1999 ??? POLIO OPV 01/12/1995, 03/20/1995, 05/22/1995 ??? TDAP 10/27/2008, 08/01/2018 ??? VARICELLA 03/07/1996, 11/27/2006 FAMILY HISTORY: Family History Problem Relation Name Age of [...] ??? Depression Brother fabián ??? Hypertension Brother jyason ??? Renal Disease Brother jayson ??? Anxiety [...] ??? Autoimmune Disease Son ??? 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 Marital status: Spouse name: Not on file ??? Number of children: 3 ??? Years of education: 14 ??? Highest education level: Associate degree: academic program Occupational History ??? 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 Smoking status: [...] in house Pets none Hobby reading-usually on [place] Social Determinants of Health Financial Resource Strain: Not on file Food Insecurity: Not on file Transportation Needs: Not on file Physical Activity: Not on file Stress: Not on file Social Connections: Not on file Intimate Partner Violence: Not on file Housing Stability: Not on file Coffee: 1-2 cups per week(s) Tea: 2x 8oz cups per day(s) Cola: 4 can(s) per day(s) Energy drinks: 1-2 red bull per week(s) Exercise Schedule: No exercise PHYSICAL EXAMINATION: Visit Vitals Vitals: 11/03/21 1020 BP: 136/81 Pulse: 87 Weight: (!) 340 lb (154.2 kg) Height: 5' 1 (1.549 m) Body mass index is 64.24 kg/m??. General Appearance: alert, well appearing, and in no distress, oriented to person, place, and time and morbidly obese Face: no creases , no pressure sores and no redness Chin: orthognathia Neck: thick neck Eyes: normal Ear: normal external, TM fluid and TM scarred Nasal: nasal congestion Oropharynx: Mallampati 4 and scalloping of tongue Breath Sounds: Vesicular, no adventitious sounds Respiratory: normal effort Cardiac: regular rhythm, no murmurs, rubs or gallops Clubbing: No Cyanosis No Lower extremity edema: L>R 1+ Screening neurologic exam: Cranial nerves intact Motor: strength 5/5 all extremities, normal bulk/tone and coordination and gait normal: Yes REVIEW OF DATA: Component Latest Ref Rng & Units 10/22/2021 04/27/2021 eGFR >90 mL/min/1.73 m2 >90 >60 Creatinine POCT 0.30 - 1.30 mg/dL 0.74 0.81 Component 06/29/21?? 05/04/20?? 05/01/20 01/26/20?? 10/12/18 SODIUM 136 138 -- 138 141 POTASSIUM 4.1 4.1 -- 3.6 4.6 CHLORIDE 102 101 -- 101 103 CO2, VENOUS 20 25 -- 21??Low?? 24 ANION GAP 18.1 16.1 -- 19.6 18.6 GLUCOSE 115 120??High?? -- 112??High?? 92 BUN 11 12 -- 11 18 CREATININE, BLOOD 0.47 0.44??Low?? -- 0.57??Low?? 0.51??Low?? BUN/CREATININE RATIO 23 27??High?? -- 19 35??High?? TOTAL PROTEIN 7.7 7.7 7.0 7.5 -- ALBUMIN 4.8 4.9 4.4 4.9 -- A/G RATIO 1.7 1.8 -- 1.9 -- CALCIUM 9.4 9.7 -- 10.1 9.9 T BILI 0.7 0.6 0.4 0.8 -- SGOT (AST) 24 26 23 28 -- SGPT (ALT) 25 33 32 29 -- ALKALINE PHOSPHATASE 69 71 70 68 -- GFR, EST. NONAFRICAN >60 >60 -- >60 >60 GFR, EST. >60 >60 -- >60 >60 Component 06/29/21?? 05/04/20?? 01/26/20?? 10/12/18 02/22/15?? WBC 8.45 6.73 7.23 6.56 9.08 RBC 4.98 5.08 4.75 4.47 4.52 HEMOGLOBIN (HGB) 13.4 13.0 12.3 11.6??Low?? 12.8 HEMATOCRIT (HCT) 41.8 40.2 38.6 37.9 38.3 MCV 83.9 79.1??Low?? 81.3??Low?? 84.8 84.7 MCH 26.9 25.6??Low?? 25.9??Low?? 26.0 28.3 MCHC 32.1 32.3 31.9 30.6??Low?? 33.4 PLATELET COUNT 285 311 314 373 338 RDW 13.4 13.2 14.3 14.8 12.9 MPV 10.2 9.4??Low?? 9.6??Low?? 9.6??Low?? 9.9 Component 10/17/20 03/09/20 VITAMIN D, 25 HYDROX 20 16??Low?? Component 10/17/20 03/09/20 10/12/18 TSH 1.950 0.978 1.680 Component 10/17/20 03/09/20 10/12/18 IRON 27.90 67.44 46.91 Component 10/17/20 03/09/20 10/12/18 HGB-A1C 5.6 5.6 5.0 Est Average Glucose 114.0 114.0 96.8 Component Latest Ref Rng & Units 12/02/2020 WBC 3.5 - 10.5 10??3/uL 7.3 RBC 3.80 - 5.20 10??6/uL 4.82 Hemoglobin 12.0 - 15.6 g/dL 12.6 Hematocrit 35.0 - 45.0 % 38.7 MCV 80.7 - 98.3 fL 80.3 (L) MCH 26.7 - 34.0 pg 26.1 (L) MCHC 30.8 - 35.9 g/dL 32.6 Platelet Count 150 - 400 10??3/uL 196 RDW-SD 36.0 - 50.0 fL 40.4 RDW 11.2 - 14.8 % 13.8 MPV 9.4 - 12.9 fL 11.2 Total Cholesterol (NMR) <200 mg/dL 178 HDL >40 mg/dL 53 LDL Calculated <100 mg/dL 88 Triglycerides <150 mg/dL 186 (H) Iron 40 - 150 ug/dL 46 Transferrin 174 - 382 mg/dL 301 Transferrin Saturation % 16 - 50 % 12 (L) TIBC Calculated 240 - 450 ug/dL 376 TSH 0.350 - 4.940 uIU/mL 0.811 PTH Intact 8.0 - 77.0 pg/mL 25.2 Vitamin B12 213 - 816 pg/mL 806 Folate 7.0 - 31.4 ng/mL 9.0 Ferritin 13 - 204 ng/mL 31 Magnesium 1.6 - 2.6 mg/dL 1.9 Vitamin B1 Whole Blood 70 - 180 nmol/L 82 SARS-CoV-2 RNA (COVID-19), QUALITATIVE NAAT 04/21/20 NOT DETECTED DETECTED??Abnormal?? MRI ABDOMEN 10/22/21 1.Observations with imaging characteristics consistent with focal nodular hyperplasia. The largest of these in hepatic segment 7 measures 3.3 cm, grossly similar in size since prior examination. 2.An indeterminate observation is seen in hepatic segment 8, favored to represent a hepatic adenomaand unchanged from the prior exam. A follow up exam in 6 months can be obtained to establish one year stability. 3.No new arterially enhancing lesions. 4.Hepatomegaly with severe diffuse hepatic steatosis. ASSESSMENT: Obstructive sleep apnea --probable/snoring Restless legs syndrome Inadequate sleep hygiene Chronic fatigue Daytime sleepiness Restless sleeper Weight gain 150#/5yr Hypnic jerks Chest pain Generalized anxiety disorder with compulsive behaviors Excessive caffeine intake Migraines plus sleep related headaches Nasal congestion SOB exertion FH asthma Confusional arousals, Sleep drunkenness, Sleep related rhythmic movements and Sleep talking, sleep bruxism PLAN: Split night polysomnography: First part: Diagnostic and Second part: Therapeutic CPAP/BiPAP +/- O2 Complete PFT with methacholine challenge Allergen profile-son very allergic Discussed the patient's risk for MOOSE based on history and physical findings as well as the complications of MOOSE. Explained the procedure for the sleep study including the monitoring. Son CPAP thru [facility] Healthy diet and exercise Good sleep hygiene Stay home as much as feasible and practice COVID-19 precautions (ie, physical distancing, wearing amask when outdoors, handwashing, etc.). RTC: Post PSG Visit lasted for 87 minutes. Time includes pre-chart, post charting, and visit time. More than 50% of visit was direct eotp-lg-wqaj, including counseling and coordination of care. Reena Pollock, Ph.D, D.N.P, A.N.P.-B.C. Adult Nurse Practitioner pediatric hospitalist Director, [facility] These notes have been electronically signed by Reena Pollock APN as the Authorizing and/or the Encounter Provider in the [facility]. 11/03/2021 Coding Rationale New or est? New Patient Highest problem complexity: 1 or more chronic illnesses with exacerbation, progression, or side effects of treatment Data review: Review of prior external note(s): 1 unique source(s) (Neuro, ENT) Review of result(s): 3 or more unique source(s) Ordering of test(s): 1 unique test(s) ordered Independent interpretation of test(s) - I independently interpreted the following test(s): epworth fatigue Suggested code: 56625 documented in this encounter Plan of Treatment Scheduled Orders Name Type Priority Associated Diagnoses Orde r Schedule PROC POLYSOMNOGRAPHY, SPLIT NIGHT Procedures Routine MOOSE (obstructive sleep apnea) Essential hypertension BMI 60.0-69.9, adult (HCC) Sleep related headaches Chronic fatigue Daytime sleepiness Restless sleeper Weight gain Sleep talking Confusional arousals Sleep drunkenness 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 Hypnic jerks Restless legs syndrome (RLS) Chest pain, unspecified type Generalized anxiety disorder Expected: 11/03/2021, Expires: 11/03/2022 documented as of this encounter Goals Goal [...] Procedure Name Priority Date/Time Associated Diagnosis Comments AMBULATORY REFERRAL TO SLEEP SPECIALIST Routine 11/03/2021 12:45 PM CDT MOOSE (obstructive sleep apnea) documented in this encounter Results * BRONCHIAL CHALLENGE WITH METHACHOLINE (12/17/2021 1:07 PM CDT) Impressions [facility] - 12/17/2021 1:07 PM CDT [facility] DEPARTMENT OF PULMONARY, CRITICAL CARE, AND SLEEP MEDICINE METHACHOLINE CHALLENGE TEST Deya Campbell 12/20/2021 Yohannes Sheffield MD INTERPRETATION Methacholine challenge [...] of Pulmonary, Critical Care and Sleep Medicine [facility] I have personally reviewed pulmonary function test data and finding. I concur with fellow's note. Kasandra Denny MD Narrative [facility] - 12/17/2021 1:07 PM CDT Yohannes Sheffield MD ? 12/20/2021 ??8:58 AM Reena A Dettenmeier APNP-AIR DRIER PFT ORDE KURT Performing Organization Address [facility] Co de Phone Number [facility] [address] * COMPLETE PFT (12/17/2021 1:07 PM CDT) Impressions [facility] - 12/17/2021 1:07 PM CDT [facility] DEPARTMENT OF PULMONARY, CRITICAL CARE, AND SLEEP [...] of Pulmonary, Critical Care and Sleep Medicine [facility] I have personally reviewed pulmonary function test data and finding. I concur with fellow's note. Kasandra Denny MD Narrative [facility] - 12/17/2021 1:07 PM CDT Yohannes Sheffield MD ? 12/20/2021 ??8:53 AM Reena A Dettenmeier APNP-AIR DRIER RESPIRAT ORY THERAPY ORDERABLES Performing Organization Address [facility] Co de Phone Number [facility] [address] * Ref to Sleep Specialist - Nisha (11/03/2021 12:45 PM CDT) Jeff Bird COPPERSMITH HELPER-AIR DRIER OUTPATIENT REFER RALS documented in this encounter Visit Diagnoses Diagnosis MOOSE (obstructive sleep apnea)- Primary Obstructive sleep apnea (adult) (pediatric) Essential hypertension BMI 60.0-69.9, adult (HCC) Body Mass Index 60.0-69.9, adult Sleep related headaches Headache Inadequate sleep hygiene Other specific disorder of sleep of nonorganic origin Chronic fatigue Other malaise and fatigue Daytime sleepiness Restless sleeper Sleep disturbance, unspecified Weight gain Abnormal weight gain Sleep talking Other specific disorder of sleep of nonorganic origin Confusional arousals Sleep drunkenness Other dysfunctions of sleep stages or arousal from sleep Sleep related rhythmic movement disorder Other organic sleep related movement disorders Sleep related bruxism Hypnic jerks Other specific disorder of sleep of nonorganic origin Restless legs syndrome (RLS) Chest pain, unspecified type Generalized anxiety disorder Excessive caffeine intake Other specified personal history presenting hazards to health Migraine without status migrainosus, not intractable, unspecified migraine type Nasal congestion Other diseases of nasal cavity and sinuses SOB (shortness of breath) on exertion Shortness of breath Family history of asthma MOOSE (obstructive sleep apnea) Obstructive sleep apnea (adult) (pediatric) Essential hypertension BMI 60.0-69.9, adult (HCC) Body Mass Index 60.0-69.9, adult Nasal congestion Other diseases of nasal cavity and sinuses SOB (shortness of breath) on exertion Shortness of breath Family history of asthma Essential hypertension BMI 60.0-69.9, adult (HCC) Body Mass Index 60.0-69.9, adult Nasal congestion Other diseases of nasal cavity and sinuses SOB (shortness of breath) on exertion Shortness of breath Family history of asthma documented in this encounter Care Teams Nuclear Equipment Test Engineer Relationship Specialty Start Date End Date Jonelle Elam MD [address] [place] [address] [place] [address] PCP - General Family Medicine 10/24/18 Manju Rainey DO [address] [place] [address] Bariatrics 08/11/20 documented as of this encounter
--- OUTSIDE RECORDS SUMMARY | 2024-04-14 17:44 | XMS_ITS | Encounter Summary ---
Author Organization [facility] Address [address] [facility] [place] [address] Care Team Providers Care Timber Cutter Name Role Phone Jonelle Elam MD Primary Care Provider [phone] Manju Rainey DO Unavailable [phone] Reason for Referral * Consultation (Routine) - Closed Specialty Diagnoses / Procedures Referred By Ritika bonner Referred To Contact Weight Management Diagnoses Class 3 severe obesity due to excess calories with serious comorbidity and body mass index (BMI) of 60.0 to 69.9 in adult ([facility]) Jeff Bird APRN-CNP [address] [place] [address] [place] [address] [place] [address] Referral ID Status Reason Start Date Expiration Date V isits Requested Visits Authorized [id number] Closed Specialty Services Required 08/27/2021 08/27/2022 1 1 * Evaluate (Routine) - Closed Specialty Diagnoses / Procedures Referred By Contact Referred To Contact Otolaryngology / ENT-Otolaryngology Diagnoses Sinus problem Jeff Bird APRN-CNP [address] [facility] [address]L [place] [address] Hugh Ng MD [address] [facility] 2L [place] [address] Referral ID Status Reason Start Date Expiration Date V isits Requested Visits Authorized Closed Specialty Services Required 08/27/2021 08/27/2022 1 1 * Evaluate & Treat (Routine) - Closed Specialty Diagnoses / Procedures Referred By Ritika bonner Referred To Contact Sleep Medicine / Sleep Center Diagnoses MOOSE (obstructive sleep apnea) Jeff Bird APRN-CNP [address] [facility] [address]L [place] [address] Reena Pollock APNP-[facility] [address] [place] [address] Referral ID Status Reason Start Date Expiration Date V isits Requested Visits Authorized [id number] Closed Specialty Services Required 08/27/2021 08/27/2022 1 1 Reason for Visit * Reason Comments Establish Care * Evaluate & Treat (Routine) - Closed Specialty Diagnoses / Procedures Referred By Contava t Referred To Contact Neurology Diagnoses Nonintractable headache, unspecified chronicity pattern, unspecified headache type Linda Gurrola APRN-CNP [address] [facility] [address] [place] [address] Aff Slu Neur Csm 1l [address] [facility] [place] [address] Referral ID Status Reason Start Date Expiration Date V isits Requested Visits Authorized [id number] Closed Specialty Services Required 07/01/2021 07/01/2022 1 1 Encounter Details Date Type Department Care Team (Late st Contact Info) Description 08/27/2021 2:00 PM CDT Office Visit [facility] [address] [facility] [place] [phone] Linda Gurrola DRILLING MACHINE OPERATORGENERAL MERCHANDISE MANAGER [address] [facility] [address] [place] [address] Jeff Bird, DRILLING MACHINE OPERATOR-GENERAL MERCHANDISE MANAGER [address] [facility] [address]L [place] [address] MOOSE (obstructive sleep apnea) (Primary Dx); Nonintractable headache, unspecified chronicity pattern, unspecified headache type; Intractable migraine with aura with status migrainosus; Sinus problem; Class 3 severe obesity due to excess calories with serious comorbidity and body mass index (BMI) of 60.0 to 69.9 in adult (HCC) Social History Tobacco Use Types Packs/Day [...] Sign Reading Time Taken Comments Blood Pressure 158/104 08/27/2021 2:12 PM CDT Pulse 98 08/27/2021 2:12 PM CDT Temperature 36.9 ??C (98.4 ??F) 08/27/2021 2:12 PM CD T Respiratory Rate - - Oxygen Saturation 96% 08/27/2021 2:12 PM CDT Inhaled Oxygen Concentration - - Weight 158.3 kg (349 lb) 08/27/2021 2:12 PM CDT Height 160 cm (5' 3 ) 08/27/2021 2:12 PM CDT Body Mass Index 61.82 08/27/2021 2:12 PM CDT documented in this encounter Patient Instructions * Patient Instructions* Jeff Bird APRN-CNP - 08/27/2021 2:35 PM CDT Migraines Sleep apnea Please start gabapentin 100 mg (1) Thre times a day. Please start 1 pill a day for a week and if tolerated my increase to 1 pill there times daily and continue Please start Nurtec 75 mg (1) as needed for big bad headaches Please see ENT Please see Sleep specialist Please see Weight loss clinic Weight management [facility] Weight Management Services Francisco J Mack MD, [facility] [address] [place] [address] documented in this encounter Progress Notes * Jeff Bird APRN-CNP - 08/27/2021 2:21 PM CDT Neurology - Headache Clinic Note Date of Encounter: 08/27/2021 Deya Campbell Age: [age] year old Date of : 1995 Referring Physician: Jonelle Elam MD [address] [place] [address] [place] [address] Reason for Office Visit: Pian head/ Accompanied with none History of Present Illness I had the pleasure of seeing Deya Campbell in my Neurology office today. Deya Campbell is a 25 year old female with history of NAFLD, [...] -Yes Tenderness -No Baseline Pain Severity level -3 10 ROS: General Negative except per HPI Eyes [...] 10 mg by mouth once daily ??? Iron, Ferrous Sulfate, 325 (65 Fe) MG TABS Take by mouth once daily ??? losartan-hydroCHLOROthiazide (HYZAAR) 100-25 MG tablet losartan 100 mg- hydrochlorothiazide 25 mg tablet TAKE 1 TABLET BY MOUTH EVERY DAY ??? omeprazole (PRILOSEC) 20 MG capsule Take 1 (one) capsule by mouth once daily Stop pantoprazole.Begin taking omeprazole post operatively. ??? Paragard Intrauterine Copper IUD ParaGard T 380A 380 square mm intrauterine device Take by intrauterine route. ??? topiramate (TOPAMAX) 100 MG tablet Take 100 mg by mouth 2 times daily (Patient not taking: No sig reported) ??? vitamin D, cholecalciferol, 50 MCG (2000 UT) tablet Take 2,000 Units by mouth once daily ??? vitamin D, ergocalciferol, (DRISDOL) 1.25 MG (51115 UT) capsule Take 1 (one) capsule by mouth every 7 days Reasons: Vitamin D Deficiency No current facility-administered medications for this visit. Patient Active Problem List: Cataracts, bilateral NAFLD (nonalcoholic fatty liver disease) Anxiety GERD (gastroesophageal reflux disease) Liver lesion Supervision of high-risk of young multigravida Short interval between pregnancies affecting , antepartum History of delivery Maternal morbid obesity, antepartum Lumbar herniated disc Diverticulitis Sleep apnea Chronic hypertension affecting Frequent headaches 27 weeks gestation of Fewer than 9 weeks gestation of 30 weeks gestation of 36 weeks gestation of Abnormal blood chemistry level Abnormal computed tomography scan Encounter for insertion of copper intrauterine contraceptive device (IUD) Backache Calf pain Counseling for HPV (human papillomavirus) vaccination Depressive disorder Delivery normal Elevated blood-pressure reading without diagnosis of hypertension Edema Essential hypertension PMH: Past Medical History: Diagnosis Date ??? Anxiety ??? Breast disorder history of breast lump-normal ??? Chronic hypertension 2011 ??? Diverticulitis ??? Fatty liver disease, nonalcoholic ??? Lumbar herniated disc 2015 Previously had physicial therapy and injections ??? Migraines ??? Morbid obesity ??? Palpitations Per patient ??? 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 Sleep apnea Has not had a sleep study Family History: Family History Problem Relation Name [...] ??? Renal Disease Brother ??? Seizures Brother ??? Other - Hepatic/Liver Sister Social History: Social History Socioeconomic History ??? [...] Drug use: Never ??? Sexual activity: Not Currently control/protection: I.U.D. Other Topics Concern ??? Not on file Social History Narrative ??? Not on file Social Determinants of Health Financial Resource Strain: Not on file Food Insecurity: Not on file Transportation Needs: Not on file Physical Activity: Not on file Stress: Not on file Social Connections: Not on file Intimate Partner Violence: Not on file Housing Stability: Not on file Physical Exam: Vitals: 08/27/21 1412 BP: (!) 158/104 Pulse: 98 Temp: 98.4 ??F (36.9 ??C) SpO2: 96% Weight: (!) 349 lb (158.3 kg) Height: 5' 3 (1.6 m) - Current pain level General: The patient's [...] Migraines with aura Obesity MOOSE Sinus problem Uncontrolled Hyperetension Recommendations: Patient has Cardiovascular risk factors- Uncontrolled HTN; failed triptans including Sumatriptan. Add rimegepant (NURTEC) 75 MG tablet PRN To start Gabapentin 100 mg (1) TID To see ENT for sinus problem To see Sleep speciality for MOOSE To see Weight care management associate for Obesity -Maintain headache diary -Lifestyle modification with regular [...] Signed Electronically [facility] Department of Neurology 08/27/21 documented in this encounter Plan of Treatment Scheduled Referrals Name Type Priority Associated Diagnoses Order Schedule Ref to ENT Otol[facility]ology - [facility] Outpatient Referral Routine Sinus problem 1 Occurrences starting 08/27/2021 until 08/27/2022 AMB REFERRAL TO WEIGHT LOSS CLINIC Outpatient Referral Routine Class 3 severe obesity due to excess calories with serious comorbidity and body mass index (BMI) of 60.0 to 69.9 in adult (HCC) Ordered: 08/27/2021 documented as of this encounter Goals Goal [...] each visit documented as of this encounter Results * Ref to Sleep Specialist - Nisha (11/03/2021 12:45 PM CDT) Jeff CRAIN OUTPATIENT REFER RALS documented in this encounter Visit Diagnoses Diagnosis MOOSE (obstructive sleep apnea)- Primary Obstructive sleep apnea (adult) (pediatric) Nonintractable headache, unspecified chronicity pattern, unspecified headache type Intractable migraine with aura with status migrainosus Migraine with aura, with intractable migraine, so stated, with status migrainosus Sinus problem Unspecified sinusitis (chronic) Class 3 severe obesity due to excess calories with serious comorbidity and body mass index (BMI) of 60.0 to 69.9 in adult (HCC) documented in this encounter Care Teams Timber Cutter Relationship Specialty Start Date End Date Jonelle Elam MD [address] [place] [address] PCP - General Family Medicine 10/24/18 Manju Rainey DO [address] [place] [address] Bariatrics 08/11/20 documented as of this encounter
--- OUTSIDE RECORDS SUMMARY | 2024-04-14 17:44 | XMS_ITS | Encounter Summary ---
Author Organization [facility] Address [address] [place] [address] Care Team Providers Care Financial Solutions Advisor Name Role Phone Jonelle Elam MD Primary Care Provider [phone] Manju Rainey DO Unavailable [phone] Reason for Referral * Procedure (Routine) - Closed Specialty Diagnoses / Procedures Referred By Ritika bonner Referred To Contact Diagnoses Essential hypertension BMI 60.0-69.9, adult (HCC) Nasal congestion SOB (shortness of breath) on exertion Family history of asthma Procedures BRONCHIAL CHALLENGE WITH METHACHOLINE Reena Pollock APNP-CNP [address] [facility] 2L [facility]/[place] [address] [facility] [address] [place] [address] Referral ID Status Reason Start Date Expiration Date Visits Re quested Visits Authorized [id number] Closed 11/03/2021 11/03/2022 1 1 Reason for Visit * Procedure (Routine) - Closed Specialty Diagnoses / Procedures Referred By Contac t Referred To Contact Diagnoses Essential hypertension BMI 60.0-69.9, adult (HCC) Nasal congestion SOB (shortness of breath) on exertion Family history of asthma Procedures BRONCHIAL CHALLENGE WITH METHACHOLINE Reena Pollock APNP-CNP [address] [facility] 2L DIV OF PULMONARY/[place] [address] [facility] [address] [place] [address] Referral ID Status Reason Start Date Expiration Date Visits Re quested Visits Authorized [id number] Closed 11/03/2021 11/03/2022 1 1 Encounter Details Date Type Department Care Team (Latest Contact Info) Description 12/17/2021 1:08 PM CDT - 12/17/2021 11:59 PM CDT Hospital Encounter [facility] [address] [place] [phone] Reena Pollock APNP-CNP [address] [facility] 2L DIV OF PULMONARY/[place] [address] Discharge Disposition: Home or Self Care Social [...] on file documented as of this encounter Medications at Time of Discharge Medication Sig Dispensed Refills Start Date End Date Iron, Ferrous Sulfate, 325 (65 Fe) MG TABS Take by mouth once daily omeprazole (PriLOSEC) 20 MG capsule Take 1 (one) capsule by mouth once daily as needed 12/17/2021 PARAGARD INTRAUTERINE COPPER IU vitamin D, cholecalciferol, 50 MCG (2000 UT) tablet Take 1 (one) tablet by mouth once daily escitalopram (LEXAPRO) 10 MG tablet Take 10 mg by mouth once daily 10/30/2020 04/22/2022 gabapentin (NEURONTIN) 100 MG capsuleIndications:MOOSE (obstructive sleep apnea),Intractable migraine with aura with status migrainosus Take 1 (one) capsule by mouth 3 times daily 270 capsule 3 08/27/2021 04/27/2022 losartan-hydroCHLOROth iazide (HYZAAR) 100-25 MG tablet losartan 100 mg-hydrochlorothiaz tabitha 25 mg tablet TAKE 1 TABLET BY MOUTH EVERY DAY 12/30/2021 rimegepant (NURTEC) 75 MG tabletIndications:Intr actable migraine with aura with status migrainosus Take 75 mg by mouth once daily as needed for Migraine 8 tablet 11 08/27/2021 04/27/2022 vitamin D, ergocalciferol, (DRISDOL) 1.25 MG (23186 UT) capsuleIndications:Vit gudino D Deficiency Take 1 (one) capsule by mouth every 7 days Reasons: Vitamin D Deficiency 4 capsule 3 12/04/2020 12/30/2021 documented as of this encounter Plan of [...] Procedure Name Priority Date/Time Associated Diagnosis Comments BRONCHIAL CHALLENGE Routine 12/17/2021 1 :07 PM CDT Essential hypertension BMI 60.0-69.9, adult (HCC) Nasal congestion SOB (shortness of breath) on exertion Family history of asthma documented in this encounter Results * BRONCHIAL CHALLENGE WITH METHACHOLINE (12/17/2021 1:07 PM CDT) [facility] - 12/17/2021 1:07 PM CDT [facility] DEPARTMENT OF PULMONARY, CRITICAL CARE, AND [...] Pulmonary, Critical Care and Sleep Medicine [facility] I have personally reviewed pulmonary function test data and finding. I concur with fellow's note. Kasandra Denny MD Narrative [facility] - 12/17/2021 1:07 PM CDT Yohannes Sheffield MD ? 12/20/2021 ??8:58 AM Reena Pollock APNP-RIVER EXPEDITION GUIDE PFT [facility]ACY HICKS [facility] Organization Address City/State/ZIP Co de Phone Number [facility] [address] documented in this encounter Visit Diagnoses Diagnosis Essential hypertension BMI 60.0-69.9, adult (HCC) Body Mass Index 60.0-69.9, adult Nasal congestion Other diseases of nasal cavity and sinuses SOB (shortness of breath) on exertion Shortness of breath Family history of asthma documented in this encounter Care Teams Financial Solutions Advisor Relationship Specialty Start Date End Date Jonelle Elam MD [address] [place] [address] [place] [address] PCP - General Family Medicine 10/24/18 Manju Rainey DO [address] [place] [address] Bariatrics 08/11/20 documented as of this encounter
--- OUTSIDE RECORDS SUMMARY | 2024-04-14 17:44 | XMS_ITS | Encounter Summary ---
Author Organization [facility] Address [address] [place] [address] Care Team Providers Care Etl Tester Name Role Phone Jonelle Elam MD Primary Care Provider [phone] Manju Rainey DO Unavailable Encounter Details Date Type Department Care Team (Late st Contact Info) Description 12/31/2021 Orders Only [facility] [address] [facility] [place] [id number] Jeff Bird, BATTERY ASSEMBLER PLASTIC-NOXIOUS WEEDS AND PEST INSPECTOR [address] [place] [phone] Intractable migraine with aura with status migrainosus Social History Tobacco Use Types Packs/Day Years [...] migrainosus documented in this encounter Care Teams Etl Tester Relationship Specialty Start Date End Date Jonelle Elam MD [address] [place] [address] [place] [address] PCP - General Family Medicine 10/24/18 Manju Rainey DO [address] [place] [address] Bariatrics 08/11/20 documented as of this encounter
--- OUTSIDE RECORDS SUMMARY | 2024-04-14 17:44 | XMS_ITS | Encounter Summary ---
Author Organization [facility] Address [address] [facility] [place] [address] Care Team Providers Care Blueprint Trimmer Name Role Phone Jonelle Elam MD Primary Care Provider [phone] Manju Rainey DO Unavailable Reason for Visit * Reason Onset Date Comments Appointment 03/25/2021 Encounter Details Date Type Department Care Team (Late st Contact Info) Description 03/25/2021 Telephone [facility] Weight Management Services [address] [place] [phone] Carmen Lee, LIBERAL ARTS TEACHER-PROGRAM COORDINATOR EXECUTIVE EDUCATION [address] [place] [address] Appointment Social History Tobacco Use Types Packs/Day Years [...] Coronavirus / COVID-19? Yes 04/27/2021 10:37 AM RAC SPECIALIST documented as of this encounter Miscellaneous Notes * Telephone Encounter - Jackeline Tejada - 05/18/2021 10:42 AM CST Lvm x3 for pt to call the office letter sent SPECIALIST * Telephone Encounter - Jackeline Tejada - 04/12/2021 3:23 PM CST Lvm for pt to call the office to schedule follow up appt. SPECIALIST * Telephone Encounter - Ella Harley CNA - 04/08/2021 9:19 AM CST Left message for patient to return call to schedule appointment with . Patient will need to complete [facility] packet. SPECIALIST * Telephone Encounter - Jackeline Tejada - 03/25/2021 9:11 AM CST lvm for pt to call the office to schedule next months f/u appt SPECIALIST documented in this encounter Plan of Treatment [...] on filedocumented in this encounter Care Teams Blueprint Trimmer Relationship Specialty Start Date End Date Jonelle Elam MD [address] [place] [address] PCP - General Family Medicine 10/24/18 Manju Rainey DO [address] [place] [address] Bariatrics 08/11/20 documented as of this encounter
--- OUTSIDE RECORDS SUMMARY | 2024-04-14 17:44 | XMS_ITS | Encounter Summary ---
Author Organization [facility] Address [address] [place] [address] Care Team Providers Care Railroad Signal Technician Name Role Phone Jonelle Elam MD Primary Care Provider [phone] Manju Rainey DO Unavailable [phone] Reason for Referral * Radiology Services (Routine) - Closed Specialty Diagnoses / Procedures Referred By Ritika bonner Referred To Contact MRI Diagnoses NAFLD (nonalcoholic fatty liver disease) Liver lesion Procedures MRI ABDOMEN WWO CONTRAST Linda Gurrola APRN-CNP [address] [place] [address] [facility] Mri [address] [place] [address] Referral ID Status Reason Start Date Expiration Date Visits Re quested Visits Authorized [id number] Closed 04/18/2022 07/17/2022 1 1 Encounter Details Date Type Department Care Team (Late st Contact Info) Description 12/30/2021 3:30 PM CDT Office Visit [facility] - GI [address] [facility], [place] [address] Linda Gurrola APRN-CNP [address] [place] [address] NAFLD (nonalcoholic fatty liver disease) (Primary Dx); Liver lesion; Liver disease, unspecified; Hepatomegaly, not elsewhere classified; Morbid (severe) obesity due to excess calories (CMS/HCC); Body mass index (BMI) 60.0-69.9, adult (CMS/HCC) Social History Tobacco Use Types Packs/Day Years [...] Sign Reading Time Taken Comments Blood Pressure 144/111 12/30/2021 3:35 PM CDT Pulse 79 12/30/2021 3:35 PM CDT Temperature 36.4 ??C (97.6 ??F) 12/30/2021 3:35 PM CD T Respiratory Rate - - Oxygen Saturation 100% 12/30/2021 3:35 PM CDT Inhaled Oxygen Concentration - - Weight 153.4 kg (338 lb 3.2 oz) 12/30/2021 3:35 PM CDT Height 154.9 cm (5' 1 ) 12/30/2021 3:35 PM CDT Body Mass Index 63.9 12/30/2021 3:35 PM CDT documented in this encounter Patient Instructions * Patient Instructions* Linda Gurrola APRN-JOSETTE - 12/30/2021 3:56 PM CDT April Discuss Ozempic with your weight loss provider. It may be an option for you. Lifestyle modification consisting of diet, exercise, and weight loss is necessary to treat Non alcoholic fatty liver disease. The data shows that overall weight loss is the saldana to improvement in the histopathological features of ORANTES. A combination of a low calorie diet (daily reduction by 500-1,000 kcal) and moderate-intensity exercise provides the best chances of achieving and maintaining weight loss over time. Weight loss of at least 3%-5% of body weight appears necessary to improve steatosis, but a greater weight loss (7%-10%) is needed to improve the majority of the histopathological features of ORANTES, including fibrosis. Dietary and exercise advice for fatty liver disease includes: A. Avoid all sugar sweetened beverages including soda pop and sweet tea. B. Eat real food (fruits vegetables meat fish) not processed foods C. Avoid foods labelled as light, low fat or fat free as they usually contain excess sugars D. Mediterranean diet is a great diet to follow for fatty liver. E. Black coffee can be beneficial for your liver. F. Eat when you are hungry. Don't eat when you are not. Eat slowly enjoy your food and listen to your body when it tells you you are full G. Limit grains, potatoes and sugar as they tend to be stored as fat and avoid trans fats (hydrogenated oils) because they are toxic to your body H. Goal to exercise is 3-4 times a week 45 minutes at a time (you may want to start with 15 minutesand add 3 minutes more every week till you hit the goal); discuss with your PCP before starting an exercise program. Exercise can be rapid walking, jogging, bicycling, aerobics, elliptical, treadmillor other cardio work outs. documented in this encounter Progress Notes * Linda Gurrola APRN-CNP - 12/30/2021 3:37 PM CDT I saw Ms. Campbell in Liver Clinic at [facility] today for follow up visit regarding: Past Visit Note. 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 Previous imaging mentioned the presence ofan adenoma. The lesions are increasing in size.? Clinical Trial:??none available ?? Board Recommendations:?Repeat imaging in 6 months. MRI with eovist 07/01/21 Deya Campbell is a 25 year old female in clinic for follow up regarding NAFLD and liver lesions. Sheis accompanied by her spouse today. She reports increased stress between work and family (children age 9,2 and one ). 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 She admits to stress eating. She was unable to proceed with weight loss s urgery due to high blood pressure. She was hoping to look into non surgical weight loss options. She had her weight down to 290 at one point but has since gained and back up to 338 lbs today. She doesn't have time to exercise. She has been experiencing headaches with vomiting and photophobia as well. She has not been seen by neurology for this but has been evaluated in ER. No complications related to liver. No jaundice ever, no LLE, no abdominal distention. No bloody or melanous stools. ?? No chief complaint on file. Patient Active Problem List: Cataracts, bilateral NAFLD (nonalcoholic fatty liver disease) GERD (gastroesophageal reflux disease) Lumbar herniated disc Diverticulitis Sleep apnea Frequent headaches Depressive disorder Essential hypertension BMI 60.0-69.9, adult ([facility]) Generalized anxiety disorder Excessive caffeine intake Migraines Interim history: Deya Campbell is a 26 year old female in clinic for follow up regarding NAFLD and liver lesions. Liver lesions reviewed in tumor board and thought to be FNH's. She has switched her birthcontrol to hormone free paraguard IUD. She is hoping to get tubal ligation. She continues to work on weight loss. She was up to 350 lbs, today she is 338 lbs. She feels her clothes are fitting loser. She feels she can bend more and do more with weight loss. She has stopped all soda intake, is limiting chips, limiting sweet tea intake to only when she visits her parents, she is eating smaller portions, trying tosnack on better foods, has cut back on fast food. She is trying to consume only 14-1500 calories per day, previously was eating close to double that in calories per day. She is monitoring this through [employer] jaqui. She is also walking some with goal of 10k steps per day. She has a gym membership but hasn't been in a while. She is working a lot, working from home. She reports intermittent chest pain over the past 1-2 months. Her blood pressure has been elevated as well. No headache, shortness of breath, weakness, blurry vision. She has appointment with her fish roe processor in January. Current Outpatient Medications Medication Sig ??? erenumab-aooe (Aimovig) 70 MG/ML auto injector pen Inject 1 mL subcutaneously every 30 days ??? escitalopram (LEXAPRO) 10 MG tablet Take 10 mg by mouth once daily ??? fluticasone-vilanterol (Breo Ellipta) 100-25 MCG/INH inhaler Inhale 1 (one) puff by mouth once daily Administer at the same time each day. Rinse mouth after using ??? gabapentin (NEURONTIN) 100 MG capsule Take 1 (one) capsule by mouth 3 times daily ??? Iron, Ferrous Sulfate, 325 (65 Fe) MG TABS Take by mouth once daily ??? omeprazole (PriLOSEC) 20 MG capsule Take 20 mg by mouth once daily ??? PARAGARD INTRAUTERINE COPPER IU ??? rimegepant (NURTEC) 75 MG tablet Take 75 mg by mouth once daily as needed for Migraine ??? vitamin D, cholecalciferol, 50 MCG (2000 UT) tablet Take 2,000 Units by mouth once daily ??? zonisamide (Zonegran) 25 MG capsule Take 1 (one) capsule by mouth once daily No current facility-administered medications for this visit. She describes her current alcohol consumption as none ?? cigarette smoking no ?? 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 Shortness of breath: none. Nausea and vomiting: none. Constipation or diarrhea: none. Upper or lower GI bleeding: none. On exam today, she appeared obese, alert and anicteric. I reviewed today's vital signs with the patient. Vitals: 12/30/21 1535 BP: (!) 144/111 Pulse: 79 Temp: 97.6 ??F (36.4 ??C) SpO2: 100% Weight: (!) 153.4 kg (338 lb 3.2 oz) Height: 1.549 m (5' 1 ) Body mass index is 63.9 kg/m??. Wt Readings from Last 3 Encounters: 12/30/21 (!) 153.4 kg (338 lb 3.2 oz) 12/28/21 (!) 154.2 kg (340 lb) 11/03/21 (!) 154.2 kg (340 lb) . Lungs were clear to auscultation bilaterally. Heart sounds were regular rate and rhythm. There were no murmurs. Abdomen was obes, soft and nontender. Liver edge palpable: no. Spleen palpable: no. Ascites: none. Hernias: none. Pretibial edema: none. Relevant test results: Recent Labs Component Name 12/02/20 1434 04/12/19 1514 01/02/19 1236 TBILI 0.6 0.7 0.8 ALKPHOS 66 55 71 ALT 33 12 24 AST 19 16 20 ALB 4.2 3.9 4.5 NA 142 - - POTASSIUM 4.0 - - CO2 25 - - CREATININE 0.63 - - BUN 12 - - HGB 12.6 - - WBC 7.3 - - PLTCOUNT 196 - - INR 1.0 - - Chronic liver disease workup: HCV ab 01/02/19 Nonreactive HBsAg 01/02/19 Nonreactive HBcAb total ? HBsAb 01/02/19 Nonreactive Hep A total ab 01/02/19 Positive Iron ? Transferrin Saturation 01/02/19 6% Ferritin ? AMA 01/02/19 2.3 MEHDI 01/02/19 Negative ASMA 01/02/19 7.5 A1AT 01/02/19 123, MM Ceruloplasmin 01/02/19 42 ?? Mri 10/22/21 Impression: ?? 1.Observations with imaging characteristics consistent with focal nodular hyperplasia. The largest of these in hepatic segment 7 measures 3.3 cm, grossly similar in size since prior examination. 2.An indeterminate observation is seen in hepatic segment 8, favored to represent a hepatic adenoma and unchanged from the prior exam. A follow up exam in 6 months can be obtained to establish one year stability. 3.No new arterially enhancing lesions. 4.Hepatomegaly with severe diffuse hepatic steatosis. ?? -MRI abd w/wo contrast 11/03/18: Liver is normal size with no hepatic surface nodularity. ??4.1 cm lesion in the hepatic dome as well as a 3.2 cm lesion in right hepatic lobe. -CT a/p with contrast 12/18/18: ??Homogenously enhancing liver mass. ??Mild sigmoid diverticulosis -MRI 02/14/19: ??Two observations in hepatic segment 7 an 8 measuring up to 4.3 cm, consistent withFNH. ??Mild diffuse hepatic steatosis. -MRI abd w/wo contrast 04/17/2020: ??2 observations in the right liver c/w with FNH, largest increasing in size and measuring 4.3 cm. ??Two new observations in hepatic seg 7 and 8, favored to represent FNH. ??Progression of diffuse hepatic steatosis, now severe. ?? Liver biopsy/Fibroscan: Fibroscan 11/05/18: Liver stiffness 7.6 kPa, CAP 396 ?? Assessment: 1. NAFLD without cirrhosis 2. Liver lesions, suspected to be FNH but awaiting follow up imaging for confirmation 3. morbid obesity, down 12 lbs. 4. hepatomegaly 5. HTN Plan: 1. MRI in April to follow up on liver lesions. Will present to tumor board for further follow up recommendations 2. She will follow up in clinic 1-2 weeks after MRI 3. We discussed her intermittent chest pain and when to go to the emergency room. She has fish roe processor that is also aware of her symptoms with an upcoming appointment. 4. Specific recommendations were provided regarding diet and exercise including the avoidance of sugar sweetened beverages and dietary trans-fats. continued weight loss encouraged An appointment was scheduled for her to see me in followup in 4 months. Copy to: Jonelle Elam MD [address] [place] [address] [place] [address] [facility] Division of Gastroenterology and Hepatology Collaborating physician: Dr. Farhad Mesa January 03, 2022 Orders Placed This Encounter ??? MRI ABDOMEN WWO CONTRAST documented in this encounter Plan of Treatment [...] documented as of this encounter Results * MRI ABDOMEN WWO CONTRAST (04/25/2022 10:30 AM TONGUE TRIMMER) Anatomical Region Laterality Modality Abdomen Magnetic Resonan ce 04/25/2022 12:2 7 PM TONGUE TRIMMER Impressions 04/25/2022 12:42 PM TONGUE TRIMMER IMPRESSION: 1. No substantial change in a [...] 04/25/2022 12:42 PM Narrative 04/25/2022 12:42 PM TONGUE TRIMMER PROCEDURE: ??MRI ABDOMEN WWO CONTRAST, DATE/TIME OF EXAM: ??04/25/2022 10:30 AM, LOCATION ??[facility] INDICATION: K76.0: NAFLD (nonalcoholic fatty liver disease) [...] MRI ABDOMEN WWO CONTRAST, DATE/TIME OF EXAM: 310:30 AM, LOCATION [facility] INDICATION: K76.0: NAFLD (nonalcoholic fatty liver disease) [...] Castaneda MD on 04/25/2022 12:42 PM Linda Gill [employer] FRUIT SPRAYER-ELECTRICIAN OFFICE MR ORDERABL ES documented in this encounter Visit Diagnoses Diagnosis NAFLD (nonalcoholic fatty liver disease)- Primary Other chronic nonalcoholic liver disease Liver lesion Other specified disorders of liver Liver disease, unspecified Hepatomegaly, not elsewhere classified Morbid (severe) obesity due to excess calories (CMS/HCC) Body mass index (BMI) 60.0-69.9, adult (CMS/HCC) NAFLD (nonalcoholic fatty liver disease) Other chronic nonalcoholic liver disease Liver lesion Other specified disorders of liver documented in this encounter Care Teams Railroad Signal Technician Relationship Specialty Start Date End Date Jonelle Elam MD [address] [place] [id number] PCP - General Family Medicine 10/24/18 Manju Rainey DO [address] [place] [address] Bariatrics 08/11/20 documented as of this encounter
--- OUTSIDE RECORDS SUMMARY | 2024-04-14 17:44 | XMS_ITS | Encounter Summary ---
Author Organization [facility] Address [address] [place] [address] Care Team Providers Care Drawer Upfitter Name Role Phone Jonelle Elam MD Primary Care Provider Manju Rainey DO Unavailable [phone] Skylar Canales PA-C Unavailable Encounter Details Date Type Department Care Team (Late st Contact Info) Description 03/15/2022 Orders Only [facility] - Nephrology [address] [place] [address], [place] [phone] Skylar Canales PA-C [address] [place] [address] [address] [place] [address] Essential hypertension Social History Tobacco Use Types [...] of this encounter Plan of Treatment Scheduled Orders Name Type Priority Associated Diagnoses Orde r Schedule RENAL FUNCTION PANEL Lab Routine Essential hypertension Ordered: 03/15/2022 documented as of this encounter Goals Goal [...] encounter Visit Diagnoses Diagnosis Essential hypertension- Primary documented in this encounter Care Teams Drawer Upfitter Relationship Specialty Start Date End Date Jonelle Elam MD [address] [place] [address] PCP - General Family Medicine 10/24/18 Manju Rainey DO [address] [place] [address] Bariatrics 08/11/20 Skylar Canales PA-C [address] [facility] [address] [place] [address] Physician General Contractor Nephrology 03/04/22 documented as of this encounter
--- OUTSIDE RECORDS SUMMARY | 2024-04-14 17:44 | XMS_ITS | Encounter Summary ---
Author Organization [facility] Address [address] [place] [address] Care Team Providers Care Mink Rancher Name Role Phone Jonelle Elam MD Primary Care Provider [phone] Manju Rainey DO Unavailable [phone] Reason for Visit * Reason Onset Date Comments Medication Prior Auth Request 12/29/2021 Encounter Details Date Type Department Care Team (Late st Contact Info) Description 12/29/2021 Telephone [facility] [address] [facility], [place] [address] Jeff Bird APRN-JOSETTE [address] [place] [address] [place] [phone] Medication Prior Auth Request Social History Tobacco [...] Telephone Encounter - Margy Sharma RN - 12/29/2021 11:59 AM CDT ePA completed for Emgality 120mg auto-injector with Ya. PA denied due to the followin. Your chart notes must show you have tried and failed 2 months of TWO other preferred drugs: betablockers, antiepileptics, antidepressants or antihypertensives 2. Your notes must show you have tried and failed the 3 preferred drugs: CGRPs: ajovy and aimovig Will forward to DEBUBBLIZER Pelon for her review and recommendations. documented in this encounter Plan of Treatment [...] on filedocumented in this encounter Care Teams Mink Rancher Relationship Specialty Start Date End Date Jonelle Elam MD [address] [place] [address] [place] [phone] PCP - General Family Medicine 10/24/18 Manju Rainey DO [address] [place] [address] Bariatrics 08/11/20 documented as of this encounter
--- OUTSIDE RECORDS SUMMARY | 2024-04-14 17:44 | XMS_ITS | Encounter Summary ---
Author Organization [facility] Address [address] [place] [address] Care Team Providers Care Construction Laborer Name Role Phone Jonelle Elam MD Primary Care Provider Manju Rainey DO Unavailable [phone] Skylar Canales PA-C Unavailable [phone] Encounter Details Date Type Department Care Team (Latest Contact Info) Description 03/04/2022 Travel Social History Tobacco Use Types Packs/Day [...] on filedocumented in this encounter Care Teams Construction Laborer Relationship Specialty Start Date End Date Jonelle Elam MD [address] [place] [address] PCP - General Family Medicine 10/24/18 Manju Rainey DO [address] [place] [address] Bariatrics 08/11/20 Skylar Canales PA-C [address] [facility] [address] Physician Clinical Project Leader Nephrology 03/04/22 documented as of this encounter
--- OUTSIDE RECORDS SUMMARY | 2024-04-14 17:44 | XMS_ITS | Encounter Summary ---
Author Organization [facility] Address [address] [place] [address] Care Team Providers Care Patient Service Rep Name Role Phone Jonelle Elam MD Primary Care Provider Manju Rainey DO Unavailable [phone] Encounter Details Date Type Department Care Team (Late st Contact Info) Description 05/17/2021 Orders Only [facility] - [address] [facility], [place] [address] Maribel Kitchen MD [address] [place] [address] NAFLD (nonalcoholic fatty liver disease) Social History Tobacco Use Types Packs/Day Years [...] Coronavirus / COVID-19? Yes 04/27/2021 10:37 AM QUALITY CHECKER documented as of this encounter Plan of [...] disease)- Primary Other chronic nonalcoholic liver disease documented in this encounter Care Teams Patient Service Rep Relationship Specialty Start Date End Date Jonelle Elam MD [address] [place] [address] [place] [address] PCP - General Family Medicine 10/24/18 Manju Rainey DO [address] [place] [address] Bariatrics 08/11/20 documented as of this encounter
--- OUTSIDE RECORDS SUMMARY | 2024-04-14 17:44 | XMS_ITS | Encounter Summary ---
Author Organization [facility] Address [address] [place] [address] Care Team Providers Care Edge Banding Off Bearer Name Role Phone Jonelle Elam MD Primary Care Provider [phone] Manju Rainey DO Unavailable [phone] Reason for Referral * Procedure (Routine) - Closed Specialty Diagnoses / Procedures Referred By Ritika bonner Referred To Contact Diagnoses MOOSE (obstructive sleep apnea) Essential hypertension BMI 60.0-69.9, adult (HCC) Nasal congestion SOB (shortness of breath) on exertion Family history of asthma Procedures COMPLETE PFT Reena Pollock APNP-CNP [address] [facility] [address] [facility] OF PULMONARY/[place] [address] [facility] Pft [address] [place] [address] Referral ID Status Reason Start Date Expiration Date Visits Re quested Visits Authorized [id number] Closed 11/03/2021 11/03/2022 1 1 Reason for Visit * Procedure (Routine) - Closed Specialty Diagnoses / Procedures Referred By Ritika bonner Referred To Contact Diagnoses MOOSE (obstructive sleep apnea) Essential hypertension BMI 60.0-69.9, adult (HCC) Nasal congestion SOB (shortness of breath) on exertion Family history of asthma Procedures COMPLETE PFT Reena Pollock APNP-LUNCHROOM ATTENDANT [address] [facility] 2L DIV OF PULMONARY/[place] [address] [facility] Pft [address] [place] [address] Referral ID Status Reason Start Date Expiration Date Visits Re quested Visits Authorized [id number] Closed 11/03/2021 11/03/2022 1 1 Encounter Details Date Type Department Care Team (Latest Contact Info) Description 12/17/2021 1:00 PM CDT - 12/17/2021 1:07 PM CDT Hospital Encounter [facility] PFT [address] [place] [phone] Reena Pollock APNP-LUNCHROOM ATTENDANT [address] [facility] 2L DIV OF PULMONARY/[place] [address] Discharge Disposition: Home or Self Care Social [...] 04/27/2022 vitamin D, ergocalciferol, (DRISDOL) 1.25 MG (03665 UT) capsuleIndications:Vit gudino D Deficiency Take 1 (one) capsule by mouth every 7 days Reasons: Vitamin D Deficiency 4 capsule 3 12/04/2020 12/30/2021 documented as of this encounter Procedure Notes * Yohannes Sheffield MD - 12/17/2021 1:07 PM CDTAssociated Order(s): COMPLETE PFT Images from the original note were not included. * Yohannes Sheffield MD - 12/17/2021 1:07 PM CDTAssociated Order(s): BRONCHIAL CHALLENGE WITH METHACHOLINE Images from the original note were not included. documented in this encounter Plan of Treatment [...] breath) on exertion Family history of asthma PFT-LAB Routine 12/17/2021 1:07 PM CDT MOOSE (obstructive sleep apnea) Essential hypertension BMI 60.0-69.9, adult (HCC) Nasal congestion SOB (shortness of breath) on exertion Family history of asthma documented in this encounter Results * COMPLETE PFT (12/17/2021 1:07 PM CDT) Impressions [facility] - 12/17/2021 1:07 PM CDT [facility] DEPARTMENT OF PULMONARY, CRITICAL CARE, [...] of Pulmonary, Critical Care and Sleep Medicine [facility] I have personally reviewed pulmonary function test data and finding. I concur with fellow's note. Kasandra Denny MD Narrative [facility] - 12/17/2021 1:07 PM CDT Yohannes Sheffield MD ? 12/20/2021 ??8:53 AM Reena A Dettenmeier APNP-LUNCHROOM ATTENDANT RESPIRAT ORY THERAPY ORDERABLES Performing Organization Address City/State/[facility] Co de Phone Number [facility] [address] [place] [address], [facility] documented in this encounter Visit Diagnoses Diagnosis MOOSE (obstructive sleep apnea) Obstructive sleep apnea (adult) (pediatric) Essential hypertension BMI 60.0-69.9, adult (HCC) Body Mass Index 60.0-69.9, adult Nasal congestion Other diseases of nasal cavity and sinuses SOB (shortness of breath) on exertion Shortness of breath Family history of asthma documented in this encounter Administered Medications Inactive Administered Medications - up to 3 most recent administrations Medication Order MAR Action Action Date Dose Rate Site methacholine challenge (Provocholine) kit 1 kit 1 kit, Inhalation, ONCE, 1 dose, On Mon12/17/21 at 1715, Methacholine Challenge Kit to be administered per Protocol by a Ethanol Operations Manager. Each Kit contains the following syringes: 16 mg/ml - 3 mL syringe 4 mg/ml - 3 mL syringe 1 mg/ml - 3 mL syringe 0.25 mg/ml - 3 mL syringe 0.0625 mg/ml - 3 mL syringe Fluid Syringe (no drug) - 3 mL syringe $ Given 12/17/2021 2:45 PM CDT 1 kit documented in this encounter Care Teams Edge Banding Off Bearer Relationship Specialty Start Date End Date Jonelle Elam MD [address] [place] [address] [place] [address] PCP - General Family Medicine 10/24/18 Manju Rainey DO [address] [place] [address] Bariatrics 08/11/20 documented as of this encounter
--- OUTSIDE RECORDS SUMMARY | 2024-04-14 17:44 | XMS_ITS | Encounter Summary ---
Author Organization [facility] Address [address] [facility] [place] [address] Care Team Providers Care Solutions Architect Consultant Name Role Phone Jonelle Elam MD Primary Care Provider Manju Rainey DO Unavailable [phone] Encounter Details Date Type Department Care Team (Late st Contact Info) Description 01/29/2021 Orders Only [facility] Management Services [address] [place] [phone] Keith Bojorquez MD [address] [place] [address] Morbid obesity (HCC) Social History Tobacco Use Types Packs/Day [...] as of this encounter Visit Diagnoses Diagnosis Morbid obesity (HCC) Morbid obesity documented in this encounter Care Teams Solutions Architect Consultant Relationship Specialty Start Date End Date Jonelle Elam MD [address] [place] [address] [place] [address] PCP - General Family Medicine 10/24/18 Manju Rainey DO [address] [place] [address] Bariatrics 08/11/20 documented as of this encounter
--- OUTSIDE RECORDS SUMMARY | 2024-04-14 17:44 | XMS_ITS | Encounter Summary ---
Author Organization [facility] Address [address] [place] [address] Care Team Providers Care Guide Cruise Name Role Phone Jonelle Elam MD Primary Care Provider [phone] Manju Rainey DO Unavailable [phone] Skylar Canales PA-C Unavailable [phone] Encounter Details Date Type Department Care Team (Late st Contact Info) Description 04/27/2022 1:30 PM MANAGER AGRICULTURAL Video Visit [facility] Neurology [facility], [place] [phone] Jeff Bird APRN-JOSETTE [address] [place] [address] [place] [phone] Intractable migraine with aura with status migrainosus ; MOOSE (obstructive sleep apnea) Social History Tobacco Use Types Packs/Day Years [...] Coronavirus/COVID-19? No / Unsure 04/22/2022 9:05 AM MANAGER AGRICULTURAL documented as of this encounter Patient Instructions * Patient Instructions* Jeff Bird APRN-CNP - 04/27/2022 1:55 PM MANAGER AGRICULTURAL Migraines Please continue the current medications the same Fu in 6 months GER AGRICULTURAL documented in this encounter Progress Notes * Jeff Bird APRN-CNP - 04/27/2022 1:22 PM CST Telehealth Visit/ Audio and Video visit/ Patient Location [facility] You as patient/surrogate have agreed to perform this voluntary telemedicine encounter evaluation. Risks include potential but unlikely loss of confidentiality using our non HIPAA protected meeting tool and the potential need for subsequent face to face care. Patient/surrogate understands that there is a risk of medical inaccuracies given that our recommendations will be made based on reported data. Knowing that there is a risk that this information is not reported accurately, and that the telemedicine audio, or data feed may be incomplete, you agree to proceed with evaluation and holds us harmless knowing these risks. In this evaluation, we will be providing recommendations only. The patient/surrogate has been notified that other healthcare professionals (including students, residents andtechnical personnel) may be involved in this audio or audio/video evaluation. All current laws concerning confidentiality and patient access to medical records and copies of medical records apply to [facility]. Neurology - Headache Clinic Note Date of Encounter: 04/27/2022 Deya Campbell Age: [age] year old Date of : 1995 Referring Physician: Jonelle Elam MD [address] [place] [address] [place] [phone] Reason for Office Visit: Pain head/ Accompanied [...] Tenderness -No Baseline Pain Severity level -3 /10 Patient has Cardiovascular risk factors- Uncontrolled HTN; failed triptans including Sumatriptan. Add rimegepant (NURTEC) 75 MG tablet PRN To start Gabapentin 100 mg (1) TID To see ENT for sinus problem To see Sleep speciality for MOOSE To see Weight fuel management handler for Obesity 12/28/21 On rimegepant (NURTEC) 75 MG tablet PRN Gabapentin 100 mg (1) TID Seen ENT for sinus problem Seeing Sleep speciality for MOOSE Scheduled to see Weight fuel management handler for Obesity Number of migraines per week: [...] Losartan Obesity+ No other new neurological changes 04/27/22 On rimegepant (NURTEC) 75 MG tablet PRN Gabapentin 100 mg (1) TID Getting a CPAP for MOOSE sooner through Cardiology Seen Weight fuel management handler for Obesity- On Metformin; great results; lost 12 pounds so far Unable to get Galcanezumab-gnlm (EMGALITY) 120 MG/ML auto-injector pen monthly. On Zonismaide 25 mg (1) HS Seen Cardiology for labile HTN- BP Significantly controled; with diastolic 120's Reports the Migraines/Headaches reduced to 15 or under with less intensity The daily life gotten better with the Gabapentin, Zonisamide , Nurtec combination Feels better No other new Neurological changes ROS: General Negative except per HPI [...] grinding, headaches ??? Labetalol Shortness of Breath Home Medications: Current Outpatient Medications Medication Sig ??? amLODIPine (Norvasc) 10 MG tablet Take 1 (one) tablet by mouth once daily ??? erenumab-aooe (Aimovig) 70 MG/ML auto injector pen Inject 1 mL subcutaneously every 30 days (Patient not taking: Reported on 03/04/2022) ??? fluticasone-salmeterol (Advair/Wixela) 100-50 MCG/ACT inhaler Inhale [...] Depressive disorder Essential hypertension BMI 60.0-69.9, adult (CMS/HCC) Generalized anxiety disorder Excessive caffeine intake Migraines Prediabetes Uses intrauterine device for control PMH: Past Medical History: Diagnosis Date ??? [...] Occupational History ??? 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 Smoking status: Never ??? [...] in house Pets none Hobby reading-usually on [employer] Social Determinants of Health Financial Resource Strain: Not on file Food Insecurity: Not on file Transportation Needs: Not on file Stress: Not on file Housing Stability: Not on file Physical Exam: - Current pain level 0 /10 General: The patient's weight has not changed recently and appetite has been fair. Cortical Function: MS: Awake, Alert, Follows Commands Oriented to Person, Place and Time Language: Fluent, Coherent, Repetition Intact Lab Review: Notes from outside provider All labs reviewed Impression: Migraines with aura- Under control with Current medication regimen Obesity MOOSE Sinus problem Labile Hyperetension Recommendations: To continue rimegepant (NURTEC) 75 MG tablet PRN To continue Gabapentin 100 mg (1) TID To follow use of CPAP for MOOSE To follow Weight fuel management handler recommendations for Obesity To continue Zonismaide 25 mg (1) HS To follow Cardiology recommendations for labile HTN -Maintain headache diary -Lifestyle modification with regular exercise, regular meals, sleep hygiene, hydration Continue taking your current medications. No changes made today. Call if any questions arise. -Follow up in 6 months or if symptoms worsen or fail to improve. All pertinent questions were answered to patient's satisfaction during this clinical visit. Patient is to closely follow up with the primary physician for medical needs. Signed Electronically [facility] Department of Neurology 04/27/22 GER AGRICULTURAL documented in this encounter Plan of Treatment [...] intractable migraine, so stated, with status migrainosus MOOSE (obstructive sleep apnea) Obstructive sleep apnea (adult) (pediatric) documented in this encounter Care Teams Guide Cruise Relationship Specialty Start Date End Date Jonelle Elam MD [address] [place] [address] PCP - General Family Medicine 10/24/18 Manju Rainey DO [address] [place] [address] Bariatrics 08/11/20 Skylar Canales PA-C [address] [facility] [address] [place] [phone] Physician Range Feeder Nephrology 03/04/22 documented as of this encounter
--- OUTSIDE RECORDS SUMMARY | 2024-04-14 17:44 | XMS_ITS | Encounter Summary ---
Author Organization [facility] Address [address] [place] [address] Care Team Providers Care Mechanical Operator Name Role Phone Jonelle Elam MD Primary Care Provider [phone] Manju Rainey DO Unavailable Skylar Canales-Desirae Unavailable [phone] Encounter Details Date Type Department Care Team (Late st Contact Info) Description 04/27/2022 Orders Only [facility] - GI [address] [facility], [place] [address] Linda Gurrola, LEATHER CUTTER-CROWN ASSEMBLY MACHINE SET UP MECHANIC [address] [place] [address] [address] [place] [address] NAFLD (nonalcoholic fatty liver disease) ; Hepatic adenoma Social History Tobacco Use Types Packs/Day Years [...] Coronavirus/COVID-19? No / Unsure 04/22/2022 9:05 AM BAND CUTTING MACHINE OPERATOR documented as of this encounter Plan of [...] disease)- Primary Other chronic nonalcoholic liver disease Hepatic adenoma Benign neoplasm of liver and biliary passages documented in this encounter Care Teams Mechanical Operator Relationship Specialty Start Date End Date Jonelle Elam MD [address] [place] [phone] PCP - General Family Medicine 10/24/18 Manju Rainey DO [address] [place] [address] Bariatrics 08/11/20 Skylar Canales PA-C [address] [place] [phone] Physician Manager Of Software Nephrology 03/04/22 documented as of this encounter
--- OUTSIDE RECORDS SUMMARY | 2024-04-14 17:44 | XMS_ITS | Encounter Summary ---
Author Organization [facility] Address [address] [facility] [place] [address] Care Team Providers Care Waste Management Recycling Technician Name Role Phone Jonelle Elam MD Primary Care Provider [phone] Manju Rainey DO Unavailable [phone] Skylar Canales PA-C Unavailable Encounter Details Date Type Department Care Team (Latest Contact Info) Description 04/25/2022 Travel Social History Tobacco Use Types Packs/Day [...] Coronavirus/COVID-19? No / Unsure 04/22/2022 9:05 AM LOCAL INTERMODAL TRUCK DRIVER documented as of this encounter Plan of [...] on filedocumented in this encounter Care Teams Waste Management Recycling Technician Relationship Specialty Start Date End Date Jonelle Elam MD [address] [place] [address] PCP - General Family Medicine 10/24/18 Manju Rainey DO [address] [place] [address] Bariatrics 08/11/20 Skylar Canales PA-C [address] [facility] 3[facility] [place] [phone] Physician Grades 1 Thru 5 Teacher Nephrology 03/04/22 documented as of this encounter
--- OUTSIDE RECORDS SUMMARY | 2024-04-14 17:44 | XMS_ITS | Encounter Summary ---
Author Organization [facility] Address [address] [facility] [place] [address] Care Team Providers Care Train Attendant Name Role Phone Jonelle Elam MD Primary Care Provider [phone] Manju Rainey DO Unavailable [phone] Reason for Visit * Reason Onset Date Comments Appointment 04/01/2021 Encounter Details Date Type Department Care Team ([facility] st Contact Info) Description 04/01/2021 Telephone [facility] Weight Management Services [address] [place] [phone] Manju Rainey, [address] [place], [place] [address] Appointment Social History Tobacco Use Types Packs/Day [...] encounter Miscellaneous Notes * Telephone Encounter - Kandy Yancey - 04/01/2021 11:18 AM CST LVM asking pt to call the office. Need to verify mailing address and email address. Patient needs aMMWL packet. Has decided to do some weight management instead of surgery at this time. In-Basket message was sent to Indra Hill in regards to patient's desire to wait. NOSTIC IMAGING MANAGER documented in this encounter Plan of [...] on filedocumented in this encounter Care Teams Train Attendant Relationship Specialty Start Date End Date Jonelle Elam MD [address] [place] [address] [place] [phone] PCP - General Family Medicine 10/24/18 Manju Rainey DO [address] [place] [address] Bariatrics 08/11/20 documented as of this encounter
--- OUTSIDE RECORDS SUMMARY | 2024-04-14 17:44 | XMS_ITS | Encounter Summary ---
Author Organization [facility] Address [address] [place] [address] Care Team Providers Care Armament Repairer Name Role Phone Jonelle Elam MD Primary Care Provider [phone] Manju Rainey DO Unavailable [phone] Encounter Details Date Type Department Care Team (Late st Contact Info) Description 12/25/2021 Orders Only [facility] [address] [place] [address] Reena Pollock, APNP-COVER MAT MACHINE OPERATOR [address] [facility] 2L DIV OF PULMONARY/[place] [address] Social History Tobacco Use Types Packs/Day Years [...] Procedure Name Priority Date/Time Associated Diagnosis Comments ALLERGEN RESPIRATORY [facility] 8 ([place] 12/25/2021 10:44 AM CDT documented in this encounter Results * ALLERGEN RESPIRATORY PROF ([place]) IGE (12/25/2021 [...] 0 kU/L [facility] INSURANCE BILL Allergen Cockroach Solomon Islander <0.10 Class 0 kU/L [facility] INSURANCE BILL Allergen Penicillin chrysogen <0.10 Class 0 kU/L [facility] INSURANCE BILL Allergen C Herbarum <0.10 Class 0 kU/L [facility] INSURANCE BILL Allergen Aspergillus fumigatus <0.10 Class 0 kU/L [facility] INSURANCE BILL Allergen A Tenuis <0.10 Class 0 kU/L [facility] INSURANCE BILL Allergen Maple <0.10 Class 0 kU/L [facility] INSURANCE BILL Allergen [place] Bryan <0.10 Class 0 kU/L [facility] INSURANCE BILL Allergen [place] <0.10 Class 0 kU/L [facility] INSURANCE BILL Allergen Elm <0.10 Class 0 kU/L [facility] INSURANCE BILL Allergen Maple [place] <0.10 Class 0 kU/L [facility] INSURANCE BILL Allergen [place] Tree <0.10 Class 0 kU/L [facility] INSURANCE BILL Allergen White Eduardo <0.10 Class 0 kU/L [facility] INSURANCE BILL Allergen [place] <0.10 Class 0 kU/L [facility] INSURANCE BILL Allergen Pecan Fl[place] <0.10 Class 0 kU/L [facility] INSURANCE BILL Allergen White Sims <0.10 Class 0 kU/L [facility] INSURANCE BILL Allergen Short/Common Ragweed <0.10 Class 0 kU/L [facility] INSURANCE BILL Allergen Prydeinig Thistle <0.10 Class 0 kU/L [facility] INSURANCE BILL Allergen Rough Pigweed <0.10 Class 0 kU/L [facility] INSURANCE BILL Allergen Rough [place] Elder <0.10 Class 0 kU/L [facility] INSURANCE BILL Allergen Mouse Urine <0.10 Class 0 kU/L [facility] INSURANCE BILL 12/25/2021 10:4 4 AM CDT 12/25/2021 Narrative Resulting Agency Comment Lab Testing performed at: [facility] ??[facility] [id number] Reena TERRELL-COVER MAT MACHINE OPERATOR LAB - CH EMISTRY ORDERABLES [facility] INSURANCE BILL [address] [place] [address] documented in this encounter Visit Diagnoses Not on filedocumented in this encounter Care Teams Armament Repairer Relationship Specialty Start Date End Date Jonelle Elam MD [address] [place] [phone] PCP - General Family Medicine 10/24/18 Manju Rainey DO [address] [place] [address] Bariatrics 08/11/20 documented as of this encounter
--- OUTSIDE RECORDS SUMMARY | 2024-04-14 17:44 | XMS_ITS | Encounter Summary ---
Author Organization [facility] Address [address] [place] [address] Care Team Providers [facility] Name Role Phone Jonelle Elam MD Primary Care Provider Manju Rainey DO Unavailable [phone] Reason for Visit * Reason Comments Morbid Obesity Patient is here toda y for pre surgery visit and H&P update prior to Laparoscopic Sleeve Gastrectomy on 02/17/2021. Encounter Details Date Type Department Care Team (Late st Contact Info) Description 02/09/2021 12:30 PM VAT OPERATOR Office Visit [facility] [address] [place] [phone] Keith Bojorquez MD [address] [place] [address] Morbid obesity (HCC) (Primary Dx); NAFLD (nonalcoholic fatty liver disease); Central sleep apnea due to medical condition; Gastroesophageal reflux disease, unspecified whether esophagitis present; Hypertension, unspecified type Social History Tobacco Use Types Packs/Day Years [...] PM CDT documented as of this encounter Last Filed Vital Signs Vital Sign Reading Time Taken Comments Blood Pressure 132/83 02/09/2021 1:00 PM VAT OPERATOR Pulse 73 02/09/2021 1:00 PM VAT OPERATOR Temperature 36.3 ??C (97.3 ??F) 02/09/2021 1:00 PM CS T Respiratory Rate 18 02/09/2021 1:00 PM VAT OPERATOR Oxygen Saturation - - Inhaled Oxygen Concentration - - Weight 142.5 kg (314 lb 3.2 oz) 02/09/2021 1:00 PM VAT OPERATOR Height 160 cm (5' 3 ) 02/09/2021 1:00 PM VAT OPERATOR Body Mass Index 55.66 02/09/2021 1:00 PM VAT OPERATOR documented in this encounter Progress Notes * Keith Bojorquez MD - 02/09/2021 1:18 PM CST Images from the original note were not included. [facility] [address] [address] PH: [phone] , Date of encounter: 02/09/2021 Provider: Keith Bojorquez MD Patient: Deya Campbell CSN: [id number] Specialty: Bariatric Surgery Date of : 1995 Visit type: Bariatrics Pre-operative follow up Deya Campbell 25 year old female, who is mutual patient with Jonelle Elam MD in our office forBariatrics pre surgery follow up/H&P update. Bariatric Preop HPI Patient is in office today for pre-operative/pre-surgery evaluation. Patient has requested Sleeve Gastrectomy. Patient is attending support group meeting. The patient has been participating in an online support group. No of support group meeting attended 09/03. Patient is taking 60 grams of proteins supplements daily. Patient is taking 64 oz of fluid per day. Paient is engaged in 20 minutes of exercise daily. Weight change as in weight history below. [...] Total Wt Loss in lb: +1.2 lb Obesity History Years at current weight? [...] lens ??? COLONOSCOPY ??? Tonsillectomy and Adenoidectomy 2003 ??? Tympanostomy 2002, 2003 Social History Socioeconomic History ??? Marital status: [...] Outpatient Medications Marked as Taking for the 02/09/21 encounter (Office Visit) with Scott Bojorquez MD Medication Sig ??? ascorbic acid (VITAMIN C) 500 MG tablet Take 1 (one) tablet by mouth 2 times daily for 90 days ??? escitalopram (LEXAPRO) 10 MG tablet Take 10 mg by mouth once daily ??? ferrous sulfate 325 (65 FE) MG tablet Take 1 (one) tablet by mouth once daily for 90 days ??? losartan (COZAAR) 100 MG tablet Take 100 mg by mouth once daily ??? Multiple Vitamin (MULTIVITAMIN PO) Take 1 tablet by mouth once daily ??? Paragard Intrauterine Copper IUD ParaGard T 380A 380 square mm intrauterine device Take by intrauterine route. ??? topiramate (TOPAMAX) 100 MG tablet Take 100 mg by mouth 2 times daily ??? vitamin D, cholecalciferol, 50 MCG (2000 UT) tablet Take 2,000 Units by mouth once daily ??? vitamin D, ergocalciferol, (DRISDOL) 1.25 MG (78748 UT) capsule Take 1 (one) capsule by mouth every 7 days Reasons: Vitamin D Deficiency (Not in a hospital admission) Allergies Allergen Reactions ??? Levofloxacin Urticaria and Itching Chest pain, shortness of breath and pain and weakness in legs ??? Cephalexin Rash ??? Nifedipine Other Facial redness, palpitations ??? Labetalol Shortness of Breath Vital Signs: BP 132/83 Pulse 73 Temp 97.3 ??F (36.3 ??C) (Temporal) Resp 18 Ht 5' 3 (1.6 m) Wt 314 lb 3.2 oz (142.5 kg) BMI 55.66 kg/m2 Weight: (!) 314 lb 3.2 oz (142.5 kg) Height: 5' 3 (160 cm) Body mass index is 55.66 kg/m??. Review of Systems: General ROS: negative Psychological ROS: negative Ophthalmic ROS: negative ENT ROS: negative Allergy and Immunology ROS: negative Hematological and Lymphatic ROS: negative Endocrine ROS: negative Breast ROS: negative Respiratory ROS: negative Cardiovascular ROS: negative Gastrointestinal ROS: positive for - heartburn Genito-Urinary ROS: negative Musculoskeletal ROS: positive for joint pain Neurological ROS: negative Dermatological ROS: negative Physical Exam Vitals and nursing note reviewed. Constitutional: Appearance: She is well-developed. HENT: Head: Normocephalic and atraumatic. Right Ear: External ear normal. Left Ear: External ear normal. Eyes: General: No scleral icterus. Conjunctiva/sclera: Conjunctivae normal. Neck: Thyroid: No thyromegaly. Trachea: No tracheal deviation. Cardiovascular: Rate and Rhythm: Normal rate and regular rhythm. Heart sounds: Normal heart sounds. No murmur heard. No friction rub. No gallop. Pulmonary: Effort: Pulmonary effort is normal. No respiratory distress. Breath sounds: Normal breath sounds. No stridor. No wheezing or rales. Abdominal: General: There is no distension. Palpations: Abdomen is soft. There is no mass. Tenderness: There is no abdominal tenderness. There is no guarding or rebound. Hernia: No hernia is present. Comments: Exam was limited due to patient's central abdominal obesity. Lymphadenopathy: Cervical: No cervical adenopathy. Skin: General: Skin is warm. Neurological: Mental Status: She is oriented to person, place, and time. Psychiatric: Behavior: Behavior normal. Labs Recent Labs Component Name 12/02/20 [...] Name 12/02/20 1434 HDL 53 TRIG 186* TSH 0.811 Recent Labs Component Name 12/02/20 1434 HGBA1C 5.7 Recent Labs Component Name 12/02/20 1434 PT 13.2 PTT 25.0 INR 1.0 TSH 0.811 Recent Labs Component Name 12/02/20 1434 TSH 0.811 Recent Labs Component Name 12/02/20 1434 IRON 46 No results for input(s): [id number] in the last 99946 hours. No results for input(s): VITAMINA in the last 35047 hours. Recent Labs Component Name 12/02/20 1434 IRON 46 No results for input(s): VITK1 in the last 99313 hours. No results for input(s): [id number] in the last 02991 hours. No results for input(s): ALPHATOCOPH in the last 97855 hours. No results for input(s): GAMMATOCOPH in the last 71964 hours. No results for input(s): MAGMGDL in the last 02981 hours. No results for input(s): PHOS in the last 22756 hours. Some lab results will be in paper format so may be scanned in the EMR. Imaging studies No results found. Some Imaging studies results will be in paper format so may be scanned in the EMR. Assessment and Plan Morbid Obesity Patient is scheduled for surgery. Patient has completed preoperative bariatric surgery education requirements. Patient has attended acknowledgment session where surgical procedures and associated complications has been discussed in detail. Patient also attended presurgery postoperative diet advancement schedule, and essential postoperative nutrients education. Patient was educated regarding post operative nutritional requirements and potentially serious nutritional complications should patient fail to take essential nutrients as recommended by dietitian. Patient has received Betty perioperative education session as well. Patient was also educated, how to optimize lung functions with incentive spirometer pre-and postop and incentive spirometer was provided for home exercises and practice. Patient was also educated about how to prevent perioperative DVT/PE. Patient and family's questions concerns were addressed. Printed handouts were given. Should patient have any questions, will contactour office and dietitian. (E66.01) Morbid obesity (primary encounter diagnosis) (K76.0) NAFLD (nonalcoholic fatty liver disease) (G47.37) Central sleep apnea due to medical condition (K21.9) Gastroesophageal reflux disease, unspecified whether esophagitis present (I10) Hypertension, unspecified type Patient certainly meets [employer] [place] [employer] criteria for bariatric surgery, that recommends bariatric surgery on people with a body mass index greater than 40 kg/msq or with a body mass index greater than 35 kg/msq and associated co-morbid conditions. Patient has been discussed, at great length the definition of morbid obesity and the indications for surgery. I have explained that bariatric surgeries are not a cure and bariatric procedures are not cosmetic surgeries. Patient will require lifelong active participation with structured exercise, diet, and regular close follow-up with eyelet machine operator, behavioral therapist and surgical team. In addition, patient must attend three/six support group meetings prior to surgery, and continue to attend at least quarterly post-operatively, to maintain long-term health gains. Patient was made aware and recommended to attend pre and post op psychologist lead support group meetings. Patient will be receiving regular education material via emails. I have discussed, at great length, different types of available and offered bariatric procedures. Patient have been shown diagrams and videos, explaining how the surgery is performed, and how weight loss is accomplished. Patient has been informed, with gastric bypass surgery patient will be losing approximately 60 - 80%, of excess body weight and that weight loss mainly occurs within the first two years post-operatively. After that, weight may plateau, and there may not be any further weight loss and potentially slight weight reagin. With Sleeve gastrectomy, patient can reasonably expect to lose 50-75% of excess body weight. Again, this will mainly occur in the first two years post-op. After that time, weight may plateau and there may be no further weight loss. Patient acknowledged understanding of additional procedures/revisions, should that become necessary, in order to achieve an acceptable weight loss outcomes and management of short and terminal gauger supervisor complications. I have discussed at great length, that complications of relevant surgeries such as bleeding, anastomotic leaks, seroma, poor wound healing, hernia formation, additional surgeries for excessive weightloss, injury to the liver, spleen, stomach, pancreatic injury, kidney, diaphragmatic, heart, bowel,vessel and nerve injuries. In discussing complications of the surgeries, I placed special emphasis on esophagus, gastric/hollow viscus perforation, staple line dehiscence, leading to possible sepsis and , and deep vein thrombosis leading to possible pulmonary embolism and . With the gastric bypass and other malabsorption procedures, there are additional potential risks such as anastomotic leak, gastric pouch necrosis, total gastrectomy, intestinal reconstruction, internal hernias, mesenteric thrombosis and gastrostomy tube insertion. Possible presence of incidentally discovered hiatal hernia and chronic cholecystitis changes during the Bariatric surgery and their repair/resection were discussed and informed verbal consent was obtained. Patient with prior abdominal surgeries willhave potential abdominal adhesions, requiring adhesiolysis with potential complications including but not limited to hollow viscus injuries. These concerns were discussed and patient echoed understanding. All surgeries will be attempted laparoscopically, however the possibilities, among others, exists that any or all procedures may have to be converted to the open approach. Patient has been also discussed the potential terminal gauger supervisor, metabolic, nutritional, and mineral derangements complications. Patient was made aware that all of these surgeries require lifetime commitments and needs to be an active participant within the program. Patient was made aware that with any of these surgeries, there will have a very small gastric reservoir, which will limit the quantity of food and fluid, that patient would be able to eat, and the foods that needs to avoided or substituted in order to prevent discomfort or failure to lose weight. In case of the gastric bypass surgery, despite the fact that patient may be taking supplementation, secondary to rerouting of intestines after the surgery, patientwill have to have very close follow-up and surveillance where patient will be evaluated as per shannon col. Patient has been educated to take Bariatric multivitamins and possible other supplementation as necessary, for rest of life pre and postoperatively. This will be applicable to all bariatric surgeries discussed. During follow up office visits, at a minimum, we may routinely check a CBC, CMP, Vitamins B1, B12, a folate level and an iron profile. I will also check Vitamin A, D, E, and K, and zinc levels, as needed and during initial evaluation. Patient was educated of the long-term complications that may occur secondary to follow up failure and may develop derangements with many different types of macro nutrients, vitamins and mineral deficiencies. Possibility of irreversible neuropathy with permanent neurological deficits, associated with Vitamin B1 was discussed. All bariatric surgeries preoperative work up is almost identical, as dictated by patients health profile. Based upon insurance company requirements, history and physical exam findings, a pulmonary function test, cardiac stress test and sleep study may be required. Given the patient's symptoms and history, an upper endoscopy/colonoscopy with procedures as necessary, will be completed prior to the bariatric procedure asneeded. A venous duplex scan of bilateral lower extremities may be ordered prior to surgery. Risks,benefits and alternatives discussed, and informed consent obtained, as necessary. Because of the significant changes in eating habits, patient will have to be evaluated by dieticianprior to and following surgery. Patient has been informed of post operative diet is a gradual progression from clear liquids to solid foods over a period of weeks to months as per program standards. Bariatric surgery may affect psychologically and emotionally, therefore patient will have to see a psychiatrist/Behavorial health provider before the surgery and may require post-operative therapy as needed. Patient will have to make sure that patient is willing to make the commitment for life and be an active participant. I have discussed and provided all available information and answered all questions and concerns. All bariatric surgeries discussed, significantly improve overall health and improve or resolve comorbid medical conditions. She verbalized understanding and is agreeable to this plan after shared decision making with patient. Keith Bojorquez MD CC: Jonelle Elam MD OPERATOR documented in this encounter Plan of Treatment [...] this encounter Visit Diagnoses Diagnosis Morbid obesity (HCC)- Primary Morbid obesity NAFLD (nonalcoholic fatty liver disease) Other chronic nonalcoholic liver disease Central sleep apnea due to medical condition Unspecified sleep apnea Gastroesophageal reflux disease, unspecified whether esophagitis present Hypertension, unspecified type documented in this encounter Care Teams Access [facility]oc Relationship Specialty Start Date End Date Jonelle Elam MD [address] [place] [address] [place] [address] PCP - General Family Medicine 10/24/18 Manju Rainey DO [address] [place] [address] Bariatrics 08/11/20 documented as of this encounter
--- OUTSIDE RECORDS SUMMARY | 2024-04-14 17:44 | XMS_ITS | Encounter Summary ---
Author Organization [facility] Address [address] [place] [address] Care Team Providers Care Telephone Station Repairer Name Role Phone Jonelle Elam MD Primary Care Provider Manju Rainey DO Unavailable [phone] Skylar Canales-Desirae Unavailable [phone] Reason for Visit * Reason Comments Establish Care Encounter Details Date Type Department Care Team (Late st Contact Info) Description 03/23/2022 9:00 AM PROPERTY INSURANCE CLAIMS EXAMINER Office Visit [facility] Weight Management Services [id number] [facility] [address] [place] [address] Angela Muñ[place] [address] [facility] [address] [place] [address] Metabolic syndrome (Primary Dx); Class 3 severe obesity due to excess calories with serious comorbidity and body mass index (BMI) of 60.0 to 69.9 in adult (HCC); Prediabetes; NAFLD (nonalcoholic fatty liver disease); Essential hypertension Social History Tobacco Use Types [...] Sign Reading Time Taken Comments Blood Pressure 150/95 03/23/2022 9:25 AM PROPERTY INSURANCE CLAIMS EXAMINER Pulse 94 03/23/2022 9:25 AM PROPERTY INSURANCE CLAIMS EXAMINER Temperature 36.8 ??C (98.2 ??F) 03/23/2022 9:25 AM CS T Respiratory Rate 24 03/23/2022 9:25 AM PROPERTY INSURANCE CLAIMS EXAMINER Oxygen Saturation 98% 03/23/2022 9:25 AM PROPERTY INSURANCE CLAIMS EXAMINER Inhaled Oxygen Concentration - - Weight 156.9 kg (346 lb) 03/23/2022 9:25 AM PROPERTY INSURANCE CLAIMS EXAMINER Height 157.5 cm (5' 2 ) 03/23/2022 9:25 AM PROPERTY INSURANCE CLAIMS EXAMINER Body Mass Index 63.28 03/23/2022 9:25 AM PROPERTY INSURANCE CLAIMS EXAMINER documented in this encounter Patient Instructions * Patient Instructions* Angela Muñoz MD - 03/23/2022 10:09 AM PROPERTY INSURANCE CLAIMS EXAMINER I recommend for you the following: Metformin information Flaquita Fitzpatrick (shots approved for weight loss) ___Dietician Visit- This is a one on one visit with one of our dieticians. It is billed to your insurance so call your insurance company to ensure they will cover a watch crystal edge grinder visit for weight loss (primarily use code E66.01). This visit is usually scheduled 3-4 weeks after your initial visit. Please call our office to schedule at [phone]. __x_Behavior Modification Classes- These are weekly classes taught by a health educator focusing onskills related to weight loss. These classes are highly recommended. Our teacher, Silvina Azul, can help you enroll at your convenience. Her number is [phone]. ___ Counselor Visit- Our counselors meet with patients to focus on behaviors that are keeping them from meeting their goals. They meet with patients in our office here and the number to schedule is [phone]. _ A Summary of Initial Visit: Time Restricted Eating Limit eating to a 8-10 hour time period daily. This will help to burn fat and may help overall health. Log Your Food Intake Keep a calendar of what you eat daily. You can use pen and paper or an jaqui on the phone like [employer] or LoseIt! (Both have free plans). You should weigh and measure all food. This will help with overall weight loss goals. It will also help your providers better help you. Think About What Your Drink Drink at least 64 ounces of water daily. Eliminate beverages with calories including soda, juice, alcohol. Exercise Dedicated exercise for 20 minutes 3 times per week. This can be walking, swimming, stationary bike.Find something that you have access to and enjoy. Exercise helps you to keep you from regaining weight and makes your heart, lungs and blood vessels healthier. Protein Supplement Replace 1 meal or snack daily with a Protein Shake (not bar). Meal Replacement Shakes High Protein Supplement Options High Protein Supplement Calories Carbohydrate Protein Lactose Free Where to Find Atkins Advantage (11 oz) 160 5 15 No Logan???s Braydon Sanders Target, Scn[employer] EAS Advant-Edge Carb Control (11 oz) 110 4 17 Yes Braydon Burkett Sam???s Matt Sanders Muscle Milk Light (14 oz) 160 10 20 Yes [employer] Shoppe Bariatric Advantage High Protein Meal Replacement Powder 160 8 27 Yes Online High Protein Slim Fast (11 oz) 190 6 20 No Madelaine Pelletier Isopure Plus (20 oz) 160 0 40 Yes [facility] Premier Protein Shake (11 oz) 160 5 30 No Logan Ignacio???s [employer] Core Power (14 oz) 170 8 26 No Madelaine Pelletier [employer] Nutrition Plan (11.5 oz) 150 3 30 No Liyah Brown, Online Uninjury Protein Powder 100 4 20 Yes Online Look for High Protein, Low Carbohydrate options. A good protein shake has at least TWICE as much Protein as Carbohydrate. More than 15 grams of protein Less than 8-10 grams of carbohydrates Shakes should have less than 200 calories each. Replace Breakfast or Lunch with a Shake ERTY INSURANCE CLAIMS EXAMINER documented in this encounter Progress Notes * Angela Muñoz MD - 03/23/2022 9:00 AM CST Bariatric Initial EVALUATION HISTORY & PHYSICAL Height: 157.5 cm (5' 2 ) Weight: (!) 156.9 kg (346 lb) BMI (Calculated): 63.27 BP 150/95 (BP SITE: RIGHT ARM, BP POSITION: SITTING, BP CUFF SIZE: 11) Pulse 94 Temp 98.2 ??F (36.8 ??C) (Temporal) Resp 24 Ht 1.575 m (5' 2 ) Wt (!) 156.9 kg (346 lb) SpO2 98% Chief Complaint: Significant Obesity with Benign Essential Hypertension, Sleep apnea, Morbid Obesity and Prediabetes. HPI: Pt is a 26 year old yo female with history of significant obesity who presents for weight lossmanagement. The patient has attempted multiple weight loss regimens in the past without [facility] success. She has multiple comorbid conditions. She has now attained a BMI (Calculated): 63.27 and is hoping that weight management will improve her quality of life, slow down the progression and the development of comorbid conditions with better control. Referred by: self Prev wt loss programs:was going to do weight loss surgery; sleeve. Gym Attendant visits prior. [place] it was going to fail. Also worried about liver size. Lost down to 300. [place] depressed afterwards about not pursuing surgery. Highest weight currently. Wt concern:overweight as 3rd-4th grader. Increased in middle school. 24 hour food recall: Breakfast:water, tea or coffee, kids yogurt, banana Lunch:pizza Dinner:spaghetti, bread, cottage cheese Snacks: veggie straws, chips, yogurt, pudding, slim sergio Chewing gum throughout the day, eating peppermint candy SSB, etoh per week: drinking water, milk. Drinking soda. Using creamer in coffee, sugar in tea. 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 usually cooking. avg weight. Son with weight concerns (weighed 220 lb, on steroids, immune issues). Daughter avg weight. Snacking at home (eating 10 slim jims) Stress eating. PMHx: Fatty liver HTN: seeing specialist. MOOSE: getting results for home test Seeing cardiology; having lower leg swelling and ? Blockage. Migraine: taking nurtec, neurontin. Taking zonisamide but stopped as due to SE. Taking 100 mg neurontin only as fatigued. Insurance won't cover Aimovig. Anxiety: stopped lexapro as was causing teeth grinding. Asthma; taking advair Cataracts ? PCOS; ovarian cysts. Had US of ovaries Diverticulitis history Weight History: Most Weight Lost: 40 LB; Regained: Yes all Dietary History: Significant Meal Content Carb:[x ] Fatty/fried Food [ ] Fast food [ ] Buffet Restaurants [ ] Vegetable [ ] Fruit [ x ] Snacks: [ x ] Keeps food diary: (No) Counts Calories (per day): (No) Using Meal Replacements (shakes & bars):(No) Triggers for eating: Stress [ x ] Sadness [ ] Loneliness [ ] Boredom [ x] TV watching [ ] Late night [ ] Binging [ ] Social [ ] Exercise/Physical activity: Activity level (0-10) ( 00 ) (0 0 ) Hour(s)/week Activity Type: Walking [ ] Running [ ] Biking [ ] Water exercise[ ] Other [ ] Patients own reasons to lose weight:: Health, feeling better, and improved quality of life. Willing / Ready /Able score is 15 The patient denies the active presence of any of these 'red-flag' medical problems except those marked with an 'X': [ ] Glaucoma [ ] Seizures [ ] Thyrotoxicosis [ ] Panic Attacks [ ] Dysrhythmia requiring treatment [ ] Bulimia or Anorexia nervosa [ ] Alcohol dependence [ ] Morphine dependence [ ] Other drug abuse problems Wt Readings from Last 3 Encounters: 03/23/22 (!) 156.9 kg (346 lb) 03/04/22 (!) 151.5 kg (334 lb) 12/30/21 (!) 153.4 kg (338 lb 3.2 oz) BP Readings from Last 3 Encounters: 03/23/22 150/95 03/04/22 148/86 12/30/21 (!) 144/111 ----- Past Surgical History: Procedure Laterality Date ??? Cataract Removal Left 2018 artificial lens ??? COLONOSCOPY ??? Tonsillectomy and Adenoidectomy 2002 ??? Tympanostomy 2001, 2002 Allergies Allergen Reactions ??? Levofloxacin Urticaria and Itching Chest pain, shortness of breath and pain and weakness in legs ??? Cephalexin Rash ??? Nifedipine Other Facial redness, palpitations ??? Labetalol Shortness of Breath Social History [...] ??? Depression Sister baltazar ??? Depression Sister silvina ??? Anxiety Disorder Sister silvina ??? Autoimmune Disease Sister silvina alopecia ??? Anxiety Disorder Brother fabián ??? [...] ??? Autoimmune Disease Son ??? SIDS Son parents: HTN, avg weight Father: type 1 DM Siblings: avg weight Children: 10 y/o overweight, HTN ----- Past Medical History: Diagnosis Date ??? 26 [...] days (Patient not taking: Reported on 03/04/2022) 1 mL 11 ??? escitalopram (LEXAPRO) 10 MG tablet Take 10 mg by mouth once daily (Patient not taking: Reported on 03/04/2022) ??? fluticasone-salmeterol (Advair/Wixela) 100-50 MCG/ACT inhaler Inhale 1 (one) puff by mouth 2 times daily Rinse mouth/throat well and spit after use. 60 Each 3 ??? gabapentin (NEURONTIN) 100 MG capsule Take [...] by mouth every evening 30 tablet 2 ??? omeprazole (PriLOSEC) 20 MG capsule Take 20 mg by mouth once daily ??? PARAGARD INTRAUTERINE COPPER IU ??? rimegepant (NURTEC) 75 MG tablet Take 75 mg by mouth once daily as needed for Migraine 8 [id number] ??? spironolactone (Aldactone) 25 MG tablet Take 1 (one) tablet by mouth once daily 90 tablet 3 ??? vitamin D, cholecalciferol, 50 MCG (2000 UT) tablet Take 2,000 Units by mouth once daily ??? zonisamide (Zonegran) 25 MG capsule Take 1 (one) capsule by mouth once daily 30 capsule 11 No current facility-administered medications for this visit. Review of Systems: Positive symptoms are marked with X, otherwise, negative [ ] Weight loss (unexplained) [ ] Fever [ ] Chills [ ] Fatigue [ ] Blurred vision [ ] Double vision/diplopia [ ] Eye pain [ ] Sinus problems [ ] Nose bleeds [ ] Ear ringing [ ] Hearing loss [ ] Mouth or tongue lesions [ ] Chest pain [ ] Irregular heart beats/palpitation [ ] Heart murmurs [ ] Leg pain [ ] Leg/foot ulcers [ ] Leg swelling [ ] Abdominal pain [ ] Nausea [ ] Vomiting [ ] Constipation [ ] Diarrhea [ ] Blood in stools [ ] Hernia [ ] Difficulty urinating [ ] blood in urine [ ] problems will bladder control [ ] Arthritis [ ] Joint pain and stiffness [ ] Gout [ ] Degenerative disc disease [ ] Low back pain [ ] Breast lumps [ ] Breast pain [ Nipple discharge [ ] Skin rashes [ ] Moles [ ] Dizziness [ ] Syncope/passing out [ ] Seizures [ x ] Headaches [ ] Weakness (arms or legs) [ ] Tremors [ ] Tingling [ ] Anemia [ ] Bruising [ ] Lymph node enlargement/lumps in the axilla or groin [ ] Shortness of breath [ ] Chronic cough [ ] Wheezing [ ] Severe night sweats [ ] Excessive phlegm [ ] Depression [ ] Anxiety [ ] Panic attacks [ ] Memory problems Physical Examination: VS: BP 150/95 (BP SITE: RIGHT ARM, BP POSITION: SITTING, BP CUFF SIZE: 11) Pulse 94 Temp 98.2 ??F (36.8 ??C) (Temporal) Resp 24 Ht 1.575 m (5' 2 ) Wt (!) 156.9 kg (346 lb) SpO2 98% General: No distress, well nourished with Central obesity Mood Normal and cooperative. No Agitation, Affect WNL. Neuro Alert & Oriented No Nystagmus Cranial Nerves are Grossly intact No Lateralized weakness, no gross sensory deficit Skin Warm and dry, no skin Tags, Pos Acanthosis, no Xeroderma, no Hyperpigmentation, no visible Bruising Head Normocephalic, atraumatic, no evidence of abnormalities. Eyes: EOM-intact, sclera clear. Conjunctivae wnl. Neck No masses, no Thyroid Enlargement or Scars CVS Regular rate and rhythm, no gallop or Murmur Lungs: Clear to auscultation w/o Crackles or Wheezing, Good respiratory effort Abdomen: Limited. Soft without distention, masses, organomegaly, tenderness, rebound. No guarding or rigidity. Lower extremity trace Edema No Tender Calves Musculo-Skeletal: No Gait/balance abnormalities No Gross Atrophy or ROM limitation Labs/studies reviewed: Recent Labs Component Name 03/04/22 1041 10/22/21 1317 04/27/21 1102 12/02/20 1434 04/17/20 1507 04/12/19 1514 01/02/19 1236 POTASSIUM 3.8 - - 4.0 - - - CO2 25 - - 25 - - - BUN 9 - - 12 - - - CREATININE 0.55* - - 0.63 - - - GLUCOSE 97 - - 88 - - - CALCIUM 9.9 - - 9.9 - - - ALT - - - 33 - 12 24 ALKPHOS - - - 66 - 55 71 AST - - - 19 - 16 20 EGFR >90 >90 >60 >90 - - - - = values in this interval not displayed. Recent Labs Component Name 03/04/22 1041 12/02/20 1434 TSH 0.926 0.811 Recent Labs Component Name 12/02/20 1434 CHOL 178 TRIG 186* HDL 53 LDLCALC 88 Recent Labs Component Name 03/04/22 1041 12/02/20 1434 HGBA1C 5.9* 5.7 EAG 123 117 Total Energy Byajpfxaocp=6820 Total Energy Expenditure to lose 2.2 pounds/rddo=[address] Juan Body comp: Fat %:59 Muscle mass:134.6 lb Visceral fat:24 BMR: 2185 Low Impression/Plan: ICD-10-CM 1. Metabolic syndrome E88.81 2. Class 3 severe obesity due to excess calories with serious comorbidity and body mass index (BMI)of 60.0 to 69.9 in adult ([facility]) E66.01 Z68.44 3. Prediabetes R73.03 4. NAFLD (nonalcoholic fatty liver disease) K76.0 5. Essential hypertension I10 - D/w the patient the basic components of the weight loss plan. Patient opted for Balanced Calorie Deficit diet as discussed below. I have discussed different options for weight loss in detail with the patient (including reduced calorie diet, behavioral modification and pharmacological option). The following is the outline of the planned agreeable to the patient. - Food journal maintenance was discussed and is recommended. - Discussed avoidance of unhealthy snacking. Pharmaceutical interventions: ___X__ Metformin 500 mg XR (confirmed with nephrology Provider Parker that pt doesn't have any upcoming imaging or contraindication to Metformin) - The patient is agreeable. Plan for ongoing weight management: __x___ Registered Dietitian consultation recommended. __x___ Caloric restriction (1500 calories/day) __x___ Time Restricted Eating discussed __x___ The patient received detailed Menu plan for the daily calories recommended. __x___ Meal Replacement Products (1 protein shakes/day as part of the recommended diet) Licensed Professional Counselor evaluation recommended __x__ Behavioral Modification classes recommended Physical Activity counseling is recommended. Information provided. __x___ Discussed cardio-pulmonary exercise options exercise options with the patient. Specific examples and recommendations were provide. __x___ Activity of 20-40 minutes of fast pace walking is recommended 3 days of the week. __x___ Specific Behavioral modification suggestions and written plan were provided for the patient. __x___ Personalized Diet plan was provided to the patient. __x___ Follow up with Dr. Muñoz in 6 weeks. My total time spent caring for the patient on the day of the encounter was 37 minutes. Angela Muñoz MD 04/07/2022 ERTY INSURANCE CLAIMS EXAMINER documented in this encounter Miscellaneous Notes * Clinical References AVS - Angela Muñoz MD - 03/23/2022 10:10 AM PROPERTY INSURANCE CLAIMS EXAMINER Images from the original note were not included. [id number] Metformin Oral Tablet Brands: Glucophage Uses This medicine is used for the following purposes: ?? diabetes ?? endocrine disorder Instructions Take the medicine with food. It is very important that you take the medicine at about the same time every day. It will work bestif you do this. Keep the medicine at room temperature. Avoid heat and direct light. Drink plenty of water while on this medicine. Tell your doctor if you have severe or persistent sweating, diarrhea or vomiting. These can increase your risk of a serious side effect. It is important that you keep taking each dose of this medicine on time even if you are feeling well. If you forget to take a dose on time, take it as soon as you remember. If it is almost time for thenext dose, do not take the missed dose. Return to your normal dosing schedule. Do not take 2 doses of this medicine at one time. Drug interactions can change how medicines work or increase risk for side effects. Tell your healthcare providers about all medicines taken. Include prescription and qxcg-rxj-kdislen medicines, vitamins, and herbal medicines. Speak with your doctor or pharmacist before starting or stopping any medicine. This medicine usually does not cause low blood sugar levels if you eat regular meals. Symptoms of low blood sugar may include nausea, shaking, sweating, cold skin, fast heartbeat, hunger, and irritability. Keep all appointments for medical exams and tests while on this medicine. Cautions Tell your doctor and pharmacist if you ever had an allergic reaction to a medicine. This medicine is associated with a rare but very serious medical condition. Please speak with your doctor about symptoms you should look out for while on this medicine. Notify your doctor immediatelyif you develop those symptoms. Do not use the medication any more than instructed. Your ability to stay alert or to react quickly may be impaired by this medicine. Do not drive or operate machinery until you know how this medicine will affect you. Please check with your doctor before drinking alcohol while on this medicine. Tell the doctor or pharmacist if you are , planning to be , or . Do not share this medicine with anyone who has not been prescribed this medicine. Side Effects The following is a list of some common side effects from this medicine. Please speak with your doctor about what you should do if you experience these or other side effects. ?? diarrhea ?? excess gas ?? nausea and vomiting ?? stomach upset or abdominal pain ?? changes in taste or unpleasant taste ?? weakness Call your doctor or get medical help right away if you notice any of these more serious side effects: ?? chills ?? dizziness ?? feeling cold or numb, especially in arms and legs ?? numbness or tingling in hands and feet ?? slow heartbeat ?? muscle pain ?? pale or blue skin, lips or fingernails ?? shortness of breath ?? unusual or unexplained tiredness or weakness ?? severe or persistent vomiting A few people may have an allergic reaction to this medicine. Symptoms can include difficulty breathing, skin rash, itching, swelling, or severe dizziness. If you notice any of these symptoms, seek medical help quickly. Extra Please speak with your doctor, nurse, or pharmacist if you have any questions about this medicine. [email or web address] IMPORTANT NOTE: This document tells you briefly how to take your medicine, but it does not tell youall there is to know about it. Your doctor or pharmacist may give you other documents about your medicine. Please talk to them if you have any questions. Always follow their advice. There is a more complete description of this medicine available in [place]an. Scan this code on your smartphone or tablet or use the web address below. You can also ask your pharmacist for a printout. If you have any questions, please ask your pharmacist. The display and use of this drug information is subject to Terms of Use. Copyright(c) 2021 [employer]. ?? The [employer]. All rights reserved. This information is not intended as a substitute for professional medical care. Always follow your healthcare professional's instructions. ERTY INSURANCE CLAIMS EXAMINER documented in this encounter Plan of Treatment Not on file documented as of this encounter Goals Goal Patient Goal Type Associated Problems Recent Progress Patient-Stated? Author Medication Management General On track( 023 9:23 AM CDT) Gabriella Arguello, RN Note: Expected end date: ongoing Interventions: Take all medications as prescribed Safety General On track( 021 11:18 AM CDT) Gabriella Arguello, RN Note: Expected end date: ongoing Interventions: Your nurse will assess your risk for falls/injury each visit documented as of this encounter Visit Diagnoses Diagnosis Metabolic syndrome- Primary Dysmetabolic Syndrome X Class 3 severe obesity due to excess calories with serious comorbidity and body mass index (BMI) of 60.0 to 69.9 in adult (HCC) Prediabetes Other abnormal glucose NAFLD (nonalcoholic fatty liver disease) Other chronic nonalcoholic liver disease Essential hypertension documented in this encounter Care Teams Telephone Station Repairer Relationship Specialty Start Date End Date Jonelle Elam MD [address] [place] [address] [place] [id number] PCP - General Family Medicine 10/24/18 Manju Rainey DO [address] [place] [address] Bariatrics 08/11/20 Skylar Canales PA-C [address] [place] [id number] Physician Disease Case Manager Rn Nephrology 03/04/22 documented as of this encounter
--- OUTSIDE RECORDS SUMMARY | 2024-04-14 17:44 | XMS_ITS | Encounter Summary ---
Author Organization [facility] Address [address] [place] [address] Care Team Providers Care Case Management Coordinator Name Role Phone Jonelle Elam MD Primary Care Provider [phone] Manju Rainey DO Unavailable [phone] Skylar Canales PA-C Unavailable [phone] Reason for Referral * Radiology Services (Routine) - Closed Specialty Diagnoses / Procedures Referred By Contac t Referred To Contact MRI Diagnoses NAFLD (nonalcoholic fatty liver disease) Liver lesion Procedures MRI ABDOMEN WWO CONTRAST Linda Gurrola APRN-CNP [address] [place] [address] [facility] Mri [address] [place] [address] Referral ID Status Reason Start Date Expiration Date Visits Re quested Visits Authorized [id number] Closed 04/18/2022 07/17/2022 1 1 OW DECORATOR Reason for Visit * Radiology Services (Routine) - Closed Specialty Diagnoses / Procedures Referred By Contac t Referred To Contact MRI Diagnoses NAFLD (nonalcoholic fatty liver disease) Liver lesion Procedures MRI ABDOMEN WWO CONTRAST Linda Gurrola APRN-TANK WORKER [address] [place] [address] [facility] Mri [address] [place] [address] Referral ID Status Reason Start Date Expiration Date Visits Re quested Visits Authorized [id number] Closed 04/18/2022 07/17/2022 1 1 Encounter Details Date Type Department Care Team (Late st Contact Info) Description 04/25/2022 9:19 AM WINDOW DECORATOR - 04/25/2022 11:59 PM WINDOW DECORATOR Hospital Encounter [facility] MRI [address] [place] [phone] Linda Gurrola APRN-TANK WORKER [address] [facility] [place] [place] [id number] Discharge Disposition: Home or Self Care Social [...] Coronavirus/COVID-19? No / Unsure 04/22/2022 9:05 AM WINDOW DECORATOR documented as of this encounter Medications at Time of Discharge Medication Sig Dispensed Refills Start Date End Date amLODIPine (Norvasc) 10 MG tablet Take 1 (one) tablet by mouth once daily 02/07/2022 fluticasone-salmeter ol (Advair/Wixela) 100-50 MCG/ACT inhaler Inhale 1 (one) puff by mouth 2 times daily Rinse mouth/throat well and spit after use. 60 Each 3 01/21/2022 furosemide (Lasix) 40 MG tablet Take 1 (one) tablet by mouth every morning 03/30/2022 Iron, Ferrous Sulfate, 325 (65 Fe) MG [...] COPPER IU vitamin D, cholecalciferol, 50 MCG (1999) tablet Take 1 (one) tablet by mouth once daily erenumab-aooe (Aimovig) 70 MG/ML auto injector penIndications:Intra ctable migraine with aura with status migrainosus Inject 1 mL subcutaneously every 30 days 1 mL 11 12/31/2021 08/19/2022 gabapentin (NEURONTIN) 100 MG capsuleIndications:O SA (obstructive sleep apnea),Intractable migraine with aura with status migrainosus Take 1 (one) capsule by mouth 3 times daily 270 capsule 3 08/27/2021 04/27/2022 metFORMIN ER 24hr (Glucophage XR) 500 MG tablet Take 1 (one) tablet by mouth every evening 30 tablet 2 03/25/2022 07/20/2022 rimegepant (NURTEC) 75 MG tabletIndications:In tractable migraine with aura with status migrainosus Take 75 mg by mouth once daily as needed for Migraine 8 tablet 11 08/27/2021 04/27/2022 spironolactone (Aldactone) 25 MG tablet Take 1 (one) tablet by mouth once daily 90 tablet 3 03/15/2022 01/30/2023 zonisamide (Zonegran) 25 MG capsuleIndications:I ntractable migraine with aura with status migrainosus Take 1 (one) capsule by mouth once daily 30 capsule 11 12/28/2021 04/27/2022 documented as of this encounter Plan of [...] Procedure Name Priority Date/Time Associated Diagnosis Comments MRI ABDOMEN WWO CONTRAST Routine 04/25/2022 10:30 AM WINDOW DECORATOR NAFLD (nonalcoholic fatty liver disease) Liver lesion CREATININE - POCT INTERFACED Routine 04/25/2022 9:46 AM WINDOW DECORATOR documented in this encounter Results * MRI ABDOMEN WWO CONTRAST (04/25/2022 10:30 AM WINDOW DECORATOR) Anatomical Region Laterality Modality Abdomen Magnetic Resonan ce 04/25/2022 12:2 7 PM WINDOW DECORATOR Impressions 04/25/2022 12:42 PM WINDOW DECORATOR IMPRESSION: 1. No substantial change in a [...] 04/25/2022 12:42 PM Narrative 04/25/2022 12:42 PM WINDOW DECORATOR PROCEDURE: ??MRI ABDOMEN WWO CONTRAST, DATE/TIME OF EXAM: ??04/25/2022 10:30 AM, LOCATION ??[facility] INDICATION: K76.0: NAFLD (nonalcoholic fatty liver [...] CONTRAST, DATE/TIME OF EXAM: 0:30 AM, LOCATION [facility] INDICATION: K76.0: NAFLD (nonalcoholic fatty liver [...] MD on 04/25/2022 12:42 PM Linda Gurrola APRN-TANK WORKER MR ORDERABL ES * CREATININE - POCT INTERFACED (04/25/2022 9:46 AM WINDOW DECORATOR) Creatinine POCT 0.73 0.30 - 1.30 mg/dL 04/25/2022 9:48 AM WINDOW DECORATOR [facility] eGFR >90 >90 mL/min/1.7 3 m2 04/25/2022 9:48 AM WINDOW DECORATOR [facility] Blood BLOOD SPECIMEN / Unknown 04/25/2022 9:46 AM WINDOW DECORATOR 04/25/2022 9:48 AM WINDOW DECORATOR Linda Gurrola SHUTTLE BUGGY OPERATOR-TANK WORKER LAB - POINT OF CARE ORDERABLES [address] [address], [facility] [phone] documented in this encounter Visit Diagnoses Diagnosis NAFLD (nonalcoholic fatty liver disease) Other chronic nonalcoholic liver disease Liver lesion Other specified disorders of liver documented in this encounter Administered Medications Inactive Administered Medications - up to 3 most recent administrations Medication Order MAR Action Action Date Dose Rate Site gadoxetate disodium (Eovist) injection Intravenous, CONTRAST ONCE, Starting on 04/25/22 at 1006, Until Tu04/26/22 at 0143 $ Given - Contrast 04/25/2022 10:07 AM WINDOW DECORATOR 10 mL documented in this encounter Care Teams Case Management Coordinator Relationship Specialty Start Date End Date Jonelle Elam MD [address] [place] [phone] PCP - General Family Medicine 10/24/18 Manju Rainey DO [address] [place] [address] Bariatrics 08/11/20 Skylar Canales PA-C [address] [facility] 3 [place] [id number] Physician Survey Instrument Operator Nephrology 03/04/22 documented as of this encounter
--- OUTSIDE RECORDS SUMMARY | 2024-04-14 17:44 | XMS_ITS | Encounter Summary ---
Author Organization [facility] Address [address] [facility] [address] Care Team Providers Care Customer Management Specialist Name Role Phone Jonelle Elam MD Primary Care Provider Manju Rainey DO Unavailable [phone] Encounter Details Date Type Department Care Team (Late st Contact Info) Description 03/24/2021 3:00 PM INCOMING INSPECTOR Video Visit [facility] Weight Management Services [address] [place] [phone] Morbid obesity (HCC) Social History Tobacco Use Types Packs/Day Years Used Date Smoking Tobacco: Never Smokeless Tobacco: Never Alcohol Use Standard Drinks/Week Comments Not Currently 0 (1 standard drink = 0.6 oz pur e alcohol) Sex and Gender Information Value Date Recorded Sex Assigned at Not on file Gender Identity Not on file Sexual Orientation Not on file documented as of this encounter Progress Notes * Suad Stiles RD/LUCILLE - 03/24/2021 3:00 PM CST MEDICAL NUTRITION THERAPY Weight Management Services Bariatric Surgery Follow-Up Patient Verification & Telemedicine Based Consent I [...] verification and consent paragraph with the patient/surrogate. Today's visit was conducted virtually due to COVID-19 countermeasures. The patient has given verbalconsent to have today's visit conducted by this same means with treatment provided remotely. The patient verbally consents to the billing and collection practices of [facility]. Patient location: Home This encounter was performed using: audio and video Total time spent on visit on date of encounter is: 18 minutes Session Date: 03/24/21 Patient: Deya Campbell Date of : 1995 (25 year old) PCP Physician: Jonelle Elam MD Referring Physician: Maryellen NUTRITION ASSESSMENT Primary Diagnoses/Co-morbidities: Morbid Obesity Secondary Diagnoses/Co-morbidities: Hypertension (anx, diverticulitis, NAFLD, SA, dep) Have you seen a dietitian?: Yes Pertinent Labs: no new to review Pertinent Medications: reviewed Current V/M Supplements: D2 weekly, 2000 IU daily, iron??and vit C Eating History Are you following a special diet at home?: Weight Reduction Are you having trouble following your diet?: Yes Are you having any trouble eating?: No Are you avoiding salty food, and not adding salt to your food?: No Are you limiting your liquids?: No How much liquids per day do you drink?: (50-64 oz) Usual Number of Times You Eat Out Per Week : 1-3 per week Who prepares the meals?: Self Exercise Type of exercise?: Walking;Biking How many times do you exercise each week?: 3 How many minutes of exercise each time?: 30 Minutes Weight History Initial Program Weight: MMWL-??320 lb 11.2 oz.?BMI 57.98? 02/10 314.2# Current Weight: (did not obtain) Total Program Weight Loss: 5.8# Pt seen for nutrition f/u. Pt is planning VSG. Did not obtain pt current wt. Pt is down 5.8# since beginning program as of last obtained wt. Pt reports is keeping portions within plate model but is struggling with head hunger/ wanting to eat. Pt reports feels a lot of temptation when bringshome fast food/less healthy meal choices. Pt reports was weighing self several times a day and veryworried about weight fluctuations. Pt reports does not feel ready for surgery at this time. Reviewed food recall and vitamins. 24 Hour Food Recall Breakfast - Fairlife shake w/ 8-16 oz coffee Lunch - tuna salad or chicken/spinach salad cup Dinner - 3 oz chicken, zoodles Snacks - mini shrimp Beverages - 50-64 oz water w/ jeanne, sparkling water occasionally NUTRITION DIAGNOSIS Diagnosis: Overweight/obesity Related to: excessive calorie intake As evidenced by: BMI 55.66. NUTRITION INTERVENTION Interventions: Motivational interviewing;Goal setting;Self-monitoring;Problem solving;Recommended modifications;Collaboration with other providers Reviewed healthy balance diet for weight loss using protein shakes. Reviewed the saldana bariatric dietprinciples. Further instruction provided for phases of bariatric diet. Reinforced behavior changes for bariatric diet such as no straws and smaller plate. Explained importance of continued bariatric vitamin/mineral and protein supplementation. Pt v/u. Pt will use 1-2 protein shakes/day as meals. Reviewed bariatric plate model with portions and reinforced choosing lean proteins first, then non-starchy vegetables and to limit CHOS to <1/2 c/meal.Reviewed mindful eating techniques and reinforced limiting snacking to 1-2x/week. Encouraged exercise as able. Pt v/u and agreeable to f/u in 1 month. Pt will f/u with Dr. Rainey until feels mentally prepared for surgery. External Barriers to Change: some triggers- does not feel ready for surgery att NUTRITION MONITORING/EVALUATION Nutrient Needs: Goals: Nutrition Goal #1: 1 protein shake daily Nutrition Goal #2: portions within plate model Nutrition Goal #3: 64 oz fluid daily Monitor/Evaluation: Monitoring and evaluation: Fluid/beverage intake;Food intake;Protein intake;Carbohydrate intake;Mineral/element intake;Food and nutrition knowledge/skills;Beliefs and attitudes;Adherence;Physical activity;Weight change;Body Mass index RD contact information provided. Pt encouraged to call RD with questions and/or concerns. Evaluation of Overall Compliance Potential: Comprehension: Often Demonstrated Receptivity: Often Demonstrated Adherence: Often Demonstrated Session Information Session Date: 03/24/21 Session Beginning Time: 1499 Session ending time: 1517 Session total minutes: 18 Minutes Teaching Method: Explanation;Demonstration;Teach Back Next visit: (presurg) Total MNT minutes this calendar year: 150/240 Nutritional Review ?? Cleared, additional RD visits required pre-op ___ ?? Cleared, no additional RD visits required pre-op _X__ ?? Not cleared, additional RD visit(s) required pre-op ___ ?? Continue with post op RD visits per protocol ___ Suad Stiles RD/LUCILLE MING INSPECTOR documented in this encounter Plan of Treatment Not on file documented as of this encounter Goals Goal Patient Goal Type Associated Problems Recent Progress Patient-Stated? Author Medication Management General On track( 023 9:23 AM CDT) No Gabriella Mono RN Note: Expected end date: ongoing Interventions: Take all medications as prescribed Safety General On track( 021 11:18 AM CDT) Gabriella Arguello RN Note: Expected end date: ongoing Interventions: Your nurse will assess your risk for falls/injury each visit documented as of this encounter Visit Diagnoses Diagnosis Morbid obesity (HCC)- Primary Morbid obesity documented in this encounter Care Teams Customer Management Specialist Relationship Specialty Start Date End Date Jonelle Elam MD [address] [place] [address] ROGELIO Reinoso [phone] PCP - General Family Medicine 10/24/18 Manju Rainey DO [address] [place] [address] Bariatrics 08/11/20 documented as of this encounter
--- OUTSIDE RECORDS SUMMARY | 2024-04-14 17:44 | XMS_ITS | Encounter Summary ---
Author Organization [facility] Address [address] [place] [address] Care Team Providers Care Ton Cylinder Inspector Name Role Phone Jonelle Elam MD Primary Care Provider [phone] Manju Rainey DO Unavailable [phone] Skylar Canales-C Unavailable [phone] Reason for Visit * Reason Comments Follow-up Encounter Details Date Type Department Care Team (Late st Contact Info) Description 05/06/2022 Telephone [facility] - [address] [place] [address] [place] [address] Gely Gallegos RN Follow-up Social History Tobacco Use Types Packs/Day Years [...] Coronavirus/COVID-19? No / Unsure 04/22/2022 9:05 AM SQUEEGEE OPERATOR documented as of this encounter Plan [...] disease documented in this encounter Care Teams Ton Cylinder Inspector Relationship Specialty Start Date End Date Jonelle Elam MD [address] [place] [address] [place] [address] PCP - General Family Medicine 10/24/18 Manju Rainey DO [address] [place] [address] Bariatrics 08/11/20 Skylar Canales PA-C [address] [facility] 3[facility] [place] [phone] Physician Stage Manager Nephrology 03/04/22 documented as of this encounter
--- OUTSIDE RECORDS SUMMARY | 2024-04-14 17:44 | XMS_ITS | Encounter Summary ---
Author Organization [facility] Address [address] [place] [address] Care Team Providers Care Funeral Attendant Name Role Phone Jonelle Elam MD Primary Care Provider [phone] Manju Rainey DO Unavailable [phone] Encounter Details Date Type Department Care Team (Latest Contact Info) Description 04/27/2021 Travel Social History Tobacco Use Types Packs/Day [...] Coronavirus / COVID-19? Yes 04/27/2021 10:37 AM ROTARY ENVELOPE MACHINE OPERATOR documented as of this encounter [...] on filedocumented in this encounter Care Teams Funeral Attendant Relationship Specialty Start Date End Date Jonelle Elam MD [address] [place] [address] [place] [phone] PCP - General Family Medicine 10/24/18 Manju Rainey DO [address] [place] [address] Bariatrics 08/11/20 documented as of this encounter
--- OUTSIDE RECORDS SUMMARY | 2024-04-14 17:44 | XMS_ITS | Encounter Summary ---
Author Organization [facility] Address [address] [facility] [place] [place] [address] Care Team Providers Care Evs Attendant Name Role Phone Jonelle Elam MD Primary Care Provider Manju Rainey DO Unavailable [phone] Reason for Visit * Reason Onset Date Comments Appointment 05/19/2021 Encounter Details Date Type Department Care Team (Late st Contact Info) Description 05/19/2021 Telephone [facility] Weight Management Services [address] [place] [phone] Keith Bojorquez MD [address] [place] [address] Appointment Social History Tobacco Use Types Packs/Day [...] Coronavirus / COVID-19? Yes 04/27/2021 10:37 AM LEAD ADVISOR documented as of this encounter Miscellaneous Notes * Telephone Encounter - Jackeline Tejada - 05/19/2021 11:32 AM CST lvm with pt to see if she was wanting to get back on track to schedule surgery ADVISOR documented in this encounter Plan of Treatment [...] on filedocumented in this encounter Care Teams Evs Attendant Relationship Specialty Start Date End Date Jonelle Elam MD [address] [place] [address] [place] [phone] PCP - General Family Medicine 10/24/18 Manju Rainey DO [address] [place] [address] Bariatrics 08/11/20 documented as of this encounter
--- OUTSIDE RECORDS SUMMARY | 2024-04-14 17:44 | XMS_ITS | Encounter Summary ---
Author Organization [facility] Address [address] [place] [address] Care Team Providers Care Mds Rn Name Role Phone Jonelle Elam MD Primary Care Provider [phone] Manju Rainey DO Unavailable [phone] Reason for Referral * Medication Prior Authorization - Closed Specialty Diagnoses / Procedures Referred By Ritika bonner Referred To Contact Reena Pollock APNP-CNP [address] DIV OF PULMONARY/[place] [address] Referral ID Status Reason Start Date Expiration Date Visits Re quested Visits Authorized [id number] Closed 1 1 Encounter Details Date Type Department Care Team (Late st Contact Info) Description 01/21/2022 Orders Only [facility] Sleep Disorder [address] [place] [address] Reena Pollock APNP-CNP [address] DIV OF PULMONARY/[place] [address] Social History Tobacco Use Types Packs/Day Years [...] on filedocumented in this encounter Care Teams Mds Rn Relationship Specialty Start Date End Date Jonelle Elam MD [address] [place] [address] PCP - General Family Medicine 10/24/18 Manju Rainey DO [address] [place] [address] Bariatrics 08/11/20 documented as of this encounter
--- OUTSIDE RECORDS SUMMARY | 2024-04-14 17:44 | XMS_ITS | Encounter Summary ---
Author Organization [facility] Address [address] [place] [address] Care Team Providers Care Supervisor Home Restoration Service Name Role Phone Jonelle Elam MD Primary Care Provider Manju Rainey DO Unavailable [phone] Reason for Visit * Reason Comments Establish Care Sinus Problem * Evaluate (Routine) - Closed Specialty Diagnoses / Procedures Referred By Contact Referred To Contact Otolaryngology / ENT-Otolaryngology Diagnoses Sinus problem Jeff Bird APRN-JOESTTE [address] [facility] [address] [place] [address] Hugh Ng MD [address] [facility] 2[address] [place] [address] Referral ID Status Reason Start Date Expiration Date V isits Requested Visits Authorized [id number] Closed Specialty Services Required 08/27/2021 08/27/2022 1 1 Encounter Details Date Type Department Care Team (Late st Contact Info) Description 10/06/2021 3:00 PM CDT Office Visit [facility] [address] [place] [address] Jeff Bird, NEW VEHICLE SALES CONSULTANT-SUPERVISOR [employer]ISH[employer] [address] [facility] [address] [place] [address] Hugh Ng MD [address] [facility] 2[address] [place] [address] Frequent headaches (Primary Dx); Sinus problem; Obstructive sleep apnea syndrome Social History Tobacco [...] - - Temperature - - Respiratory Rate 16 10/06/2021 3:00 PM CDT Oxygen Saturation - - Inhaled Oxygen Concentration - - Weight 156.9 kg (346 lb) 10/06/2021 3:00 PM CDT Height 160 cm (5' 3 ) 10/06/2021 3:00 PM CDT Body Mass Index 61.29 10/06/2021 3:00 PM CDT documented in this encounter Patient Instructions * Patient Instructions* Eusebia Diallo S - 10/06/2021 2:55 PM CDT Thank you for visiting [facility] Otolaryngology - Head & Neck Surgery. We appreciate your confidence in allowing us to participate in your health care. You may receive a survey about your visit with us today. Making our patients happy isn???t just happy talk; it???s ourmission. Please tell us if we made the right impression on you- and how we can serve you better. Please SAVE the information below, it will assist you when it???s time for you to contact us. To MAKE - CHANGE - CANCEL an office appointment If you become ill, need to be seen before your next scheduled appointment, or need to cancel or reschedule an appointment, please call our office at [phone] Monday through Monday from 8:00 am to4:30 pm. You can also request a routine appointment through your [employer] account. Prescription Refills Contact your pharmacy to request all refills. The pharmacy will need to fax the request to us at . Please allow a minimum of 48-72 hours for your prescription to be completed. Medical Emergency / After Hours Contact Information If you have a medical emergency, please call 911 or go to the nearest emergency room. For urgent medical calls, which cannot wait until the office opens, please call the medical exchange at and ask the extruding machine operator to page the ENT physician prepared foods production team member. *Caller ID blocking service will need to be turned off for your call to be returned. We also specialize in Hearing Aids, Allergy testing, swallowing disorders, voice problems, cancer diagnosis, and so much more. Visit our website at [email or web address] for information about our practice and an interactive health encyclopedia. documented in this encounter Progress Notes * Hugh Ng MD - 10/06/2021 3:05 PM CDT History of Present Illness: 25 year old with a h/o NAFLD, obesity, anxiety, and migraines who was referred to ENT clinic for sinus problems . Patient reports that she is here today for her migraines, some facial pressure, and hearing loss. Patient reports she has migraines nearly every day. She says she has no clear triggers but that herheadaches are severe, associated with facial pressure and ear pain and neck pain, and make her sensitive to light. She is being followed for this by neurology and is on gabapentin and topiramate for migraines, which she reports help with her pain. Patient says that outside of her headaches, she still feels that there is pressure/pain sometimes over her nasal bridge and frequent pressure/fullness/pain in her ears bilaterally. She denies any drainage out of her nose, post-nasal drip, history of recurrent sinus infections, allergies, rhinitis, or sre throat. She has never used any nasal sprays or oral antihistamines.She denies ottorhea. She reports snoring and poor sleep quality and she states will be getting a sleep study for possible MOOSE. She also reports that she feels her hearing is poor and gradually but progressively getting worse. She has trouble hearing when people are talking to her from across a room and that she is constantlyasking her family members to repeat themselves at home. Her family history is significant for hearing loss in her mother (mother has hearing aids). Her surgical history is significant for T&A (2001) and 2 sets of ear tubes (2001 and 2002) as achild. She denies any tobacco or alcohol use. Past Medical History: Diagnosis Date ??? Anxiety ??? Breast disorder history of breast lump-normal ??? Chronic hypertension 2011 ??? Diverticulitis ??? Fatty liver disease, nonalcoholic ??? Lumbar herniated disc 2015 Previously had physicial therapy and injections ??? Migraines ??? Morbid obesity ??? Palpitations Per patient ??? 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 Sleep apnea Has not had a sleep study PSH: has a past surgical history that includes tympanostomy (2001, 2002); cataract removal (Left, 2018);tonsillectomy and adenoidectomy (2002); and colonoscopy. Current Outpatient Medications Medication Sig Dispense Refill ??? escitalopram (LEXAPRO) 10 MG tablet Take [...] daily Stop pantoprazole.Begin taking omeprazole post operatively. 90 capsule 0 ??? Paragard Intrauterine Copper IUD ParaGard T 380A 380 square mm intrauterine device Take by intrauterine route. ??? rimegepant (NURTEC) 75 MG tablet Take 75 mg by mouth once daily as needed for Migraine 8 [id number] ??? topiramate (TOPAMAX) 100 MG tablet Take 100 mg by mouth 2 times daily (Patient not taking: No sig reported) ??? vitamin D, cholecalciferol, 50 MCG (2000 UT) tablet Take 2,000 Units by mouth once daily ??? vitamin D, ergocalciferol, (DRISDOL) 1.25 MG (15898 UT) capsule Take 1 (one) capsule by mouth every 7 days Reasons: Vitamin D Deficiency 4 capsule 3 No current facility-administered medications for this visit. Allergies Levofloxacin, Cephalexin, Nifedipine, and Labetalol Social History Tobacco Use ??? Smoking status: Never Smoker ??? Smokeless tobacco: Never Used Vaping Use ??? Vaping Use: Never used Substance Use Topics ??? Alcohol use: Not Currently ??? Drug use: Never Family History Problem Relation Name Age of [...] Seizures Brother ??? Other - Hepatic/Liver Sister Physical Exam: Constitutional: Alert, No acute Distress; morbidly obese Neuro:cranial nerves III-XII grossly intact CV/Pulm: Normal respirations and peripheral pulses. Eyes: PERRL, EOMI Face/Skin: normal appearance, no lesions/masses Ears: Right: Normal external Auditory canal, TM normal Left: Normal external Auditory canal, TM normal Nose: Patent bilaterally, No septal deviation, Turbinates intact, Mucosal membranes intact Mouth and oropharynx: symmetric tongue mobility, no lesions/masses/ulcers Neck: supple, no lymphadenopathy, no masses Voice: strong MusculoSkeletal: moves all extremities well Assessment and Plan: Ms. Campbell is a 25 year old woman who presents today for evaluation for migraines, facial pressure (nasal bridge)/ear pain, and gradual progressive hearing loss. 1. Facial pressure/pain and migraines: -Patient's ears and nose appear entirely normal with no remarkable findings on exam today. She denies any symptoms concerning for sinus disease including nasal drainage, post-nasal drip, sore throat,nasal congestion/obstruction, allergies, or recurrent infections. Her facial pressure/pain (predomiantely over nasal bridge) and ear pain are likely related to her migraines and she should continue to follow with neurology. No further ENT intervention is indicated at this time 2. Hearing loss (gradual, progressive): -Patient has been referred for an audiogram for evaluation of hearing loss [facility] Medical Student I have verified the documentation of the Medical student, including all history, exam, and medical decision-making details. I have personally performed a physical exam and have personally reviewed the data to support my medical decision-making as outlined in the student's note, and I arrive independently at the same conclusion. 10/08/2021 Hugh Ng MD documented in this encounter Plan of Treatment [...] as of this encounter Visit Diagnoses Diagnosis Frequent headaches- Primary Sinus problem Unspecified sinusitis (chronic) Obstructive sleep apnea syndrome Obstructive sleep apnea (adult) (pediatric) documented in this encounter Care Teams Supervisor Home Restoration Service Relationship Specialty Start Date End Date Jonelle Elam MD [address] [place] [address] [place] [address] PCP - General Family Medicine 10/24/18 Manju Rainey DO [address] [place] [address] Bariatrics 08/11/20 documented as of this encounter
--- OUTSIDE RECORDS SUMMARY | 2024-04-14 17:44 | XMS_ITS | Encounter Summary ---
Author Organization [facility] [employer] Address [address] [place] [address] Care Team Providers Care Professional Nursing Assistant Name Role Phone Jonelle Elam MD Primary Care Provider [phone] Manju Rainey DO Unavailable [phone] Encounter Details Date Type Department Care Team (Latest Contact Info) Description 10/22/2021 Travel Social History Tobacco Use Types Packs/Day [...] on filedocumented in this encounter Care Teams Professional Nursing Assistant Relationship Specialty Start Date End Date Jonelle Elam MD [address] [place] [address] PCP - General Family Medicine 10/24/18 Mnaju Rainey DO [address] [place] [address] Bariatrics 08/11/20 documented as of this encounter
--- OUTSIDE RECORDS SUMMARY | 2024-04-14 17:44 | XMS_ITS | Encounter Summary ---
Author Organization [facility] Address [address] [place] [address] Care Team Providers Care Canvas Shrinker Name Role Phone Jonelle Elam MD Primary Care Provider Manju Rainey DO Unavailable [phone] Reason for Referral * Radiology Services (Routine) - Closed Specialty Diagnoses / Procedures Referred By Ritika bonner Referred To Contact MRI Diagnoses Liver lesion Procedures MRI ABDOMEN WWO CONTRAST Maribel Kitchen MD [address] [place] [address] [address] Referral ID Status Reason Start Date Expiration Date Visits Re quested Visits Authorized [id number] Closed 10/14/2021 01/12/2022 1 1 Reason for Visit * Radiology Services (Routine) - Closed Specialty Diagnoses / Procedures Referred By Ritika bonner Referred To Contact MRI Diagnoses Liver lesion Procedures MRI ABDOMEN WWO CONTRAST Maribel Kitchen MD [address] [place] [address] [facility] [address] [place] [address] Referral ID Status Reason Start Date Expiration Date Visits Re quested Visits Authorized [id number] Closed 10/14/2021 01/12/2022 1 1 Encounter Details Date Type Department Care Team (Late st Contact Info) Description 10/22/2021 11:30 AM CDT - 10/22/2021 11:59 PM CDT Hospital Encounter [facility] MRI [address] [place] [id number] Maribel Kitchen MD [address] [place] [address] Discharge Disposition: Home or Self Care Social [...] MG TABS Take by mouth once daily vitamin D, cholecalciferol, 50 MCG (1999 UT) tablet Take 1 (one) tablet by mouth once daily escitalopram (LEXAPRO) 10 MG tablet Take 10 mg by mouth once daily 10/30/2020 04/22/2022 gabapentin (NEURONTIN) 100 MG capsuleIndications:OS A (obstructive sleep apnea),Intractable migraine with aura with status migrainosus Take 1 (one) capsule by mouth 3 times daily 270 capsule 3 08/27/2021 04/27/2022 losartan-hydroCHLOROt hiazide (HYZAAR) 100-25 MG tablet losartan 100 mg-hydrochlorothiazi de 25 mg tablet TAKE 1 TABLET BY MOUTH EVERY DAY 12/30/2021 omeprazole (PRILOSEC) 20 MG capsule Take 1 (one) capsule by mouth once daily Stop pantoprazole. Begin taking omeprazole post operatively. 90 capsule 02/17/2021 11/03/2021 Paragard Intrauterine Copper IUD ParaGard T 380A 380 square mm intrauterine device Take by intrauterine route. 11/03/2021 rimegepant (NURTEC) 75 MG tabletIndications:Int ractable migraine with aura with status migrainosus Take 75 mg by mouth once daily as needed for Migraine 8 tablet 11 08/27/2021 04/27/2022 topiramate (TOPAMAX) 100 MG tablet Take 100 mg by mouth 2 times daily 11/03/2021 vitamin D, ergocalciferol, (DRISDOL) 1.25 MG (95156 UT) capsuleIndications:Vi tamin D Deficiency Take 1 (one) capsule by [...] Diagnosis Comments MRI ABDOMEN WWO CONTRAST Routine 10/22/2021 2:13 PM CDT Liver lesion CREATININE - POCT INTERFACED Routine 10/22/2021 1:17 PM CDT documented in this encounter Results * MRI ABDOMEN WWO CONTRAST (10/22/2021 2:13 PM CDT) Anatomical Region Laterality Modality Abdomen Magnetic Resonan ce 10/22/2021 2:20 PM CDT Impressions 10/22/2021 2:44 PM CDT Impression: 1.Observations with imaging characteristics consistent with focal nodular hyperplasia. The largest of these in hepatic segment 7 measures 3.3 cm, grossly similar in size since prior examination. 2.An indeterminate observation is seen in hepatic segment 8, favored to represent a hepatic adenoma and unchanged from the prior exam. A follow up exam in 6 months can be obtained to establish ??one year stability. 3.No new arterially enhancing lesions. 4.Hepatomegaly with severe diffuse hepatic steatosis. Report dictated by Abran Farr MD (vice president network). This report was approved ??by Abran Farr ?? on 10/22/2021 2:40 PM . I, Dr. DAGBOERTO HANSEN have personally reviewed and interpreted this examination/study. This report was electronically signed by DAGOBERTO HANSEN ??on 10/22/2021 2:44 PM . Narrative 10/22/2021 2:44 PM CDT Procedure Information: DATE: 10/22/2021 2:24 PM EXAMINATION: Magnetic resonance imaging (MRI) of the abdomen without and with contrast TECHNIQUE: MRI of the abdomen was performed prior to and following the uneventful administration of 10 mL of Eovist intravenous gadolinium contrast according to standard protocol. Clinical Information: HISTORY: K76.9: Liver lesion 25-year-old female with history of nonalcoholic fatty liver disease (NAFLD), found on outside imaging to have multiple indeterminate hepatic lesions. Repeat MRI dated 02/14/2019 demonstrated to observations in hepatic segment 7 and 8 consistent with focal nodular hyperplasia (FNH). Subsequent MRI dated 04/17/2020 demonstrates additional indeterminate hepatic observations in segments 7 and 8, favored to represent FNH. COMPARISON: MRI abdomen dated 04/27/2021 Findings: Lower Chest: Normal. Hepatobiliary system Liver morphology: No liver surface nodularity is seen to suggest hepatic cirrhosis. Hepatomegaly. Steatosis: There is severe diffuse hepatic steatosis. Varices: None. Spleen: Normal. Ascites: None. Focal liver observations A 3.3 x 2.9 cm arterially enhancing observation is seen in hepatic segment 7 (series 10 image 34), which remains hyperintense to hepatic parenchyma on hepatobiliary phase images with subtle central stellate hypodensity (series 29 image 34), consistent with focal nodular hyperplasia. Inferior and medial to this, there is a 1.5 cm arterially enhancing observation in hepatic segment 6/7 (series 9 image 54), which remains hyperintense to hepatic parenchyma on hepatobiliary phase images (series 29 image 58), consistent with focal nodular hyperplasia. A 1 cm subtly arterially enhancing observation is also seen in hepatic segment 8 (series 9 image 52), which is hypointense to hepatic parenchyma on hepatobiliary phase images (series 29 image 48), which does not meet criteria for focal nodular hyperplasia. Just inferior to this there is an enhancing observation that stays enhancing on delayed images consistent with a small focal nodular hyperplasia. Hepatic vasculature Portal and hepatic veins: Normal and patent. Arterial anatomy: Conventional. Gallbladder and bile ducts Gallbladder: Normal. Bile ducts: Nondilated. Retroperitoneum Pancreas: Normal. Adrenals: Normal. Kidneys: Subcentimeter simple renal cysts the midportion of the right kidney. Lymph nodes: No lymphadenopathy. Gastrointestinal: Imaged bowel and mesentery are normal. Procedure Note Dagoberto Hansen MD - 10/22/2021 Procedure Information: DATE: 10/22/2021 2:24 PM EXAMINATION: Magnetic resonance imaging (MRI) of the abdomen without and with contrast TECHNIQUE: MRI of the abdomen was performed prior to and following the uneventful administration of 10 mL of Eovist intravenous gadolinium contrast according to standard protocol. Clinical Information: HISTORY: K76.9: Liver lesion 25-year-old female with history of nonalcoholic fatty liver disease (NAFLD), found on outside imaging to have multiple indeterminate hepatic lesions. Repeat MRI dated 02/14/2019 demonstrated to observations in hepatic segment 7 and 8 consistent with focal nodular hyperplasia (FNH). Subsequent MRI dated 04/17/2020 demonstrates additional indeterminate hepatic observations in segments 7 and 8, favored to represent FNH. COMPARISON: MRI abdomen dated 04/27/2021 Findings: Lower Chest: Normal. Hepatobiliary system Liver morphology: No liver surface nodularity is seen to suggest hepatic cirrhosis. Hepatomegaly. Steatosis: There is severe diffuse hepatic steatosis. Varices: None. Spleen: Normal. Ascites: None. Focal liver observations A 3.3 x 2.9 cm arterially enhancing observation is seen in hepaticsegment 7 (series 10 image 34), which remains hyperintense to hepatic parenchyma on hepatobiliary phase images with subtle central stellate hypodensity (series 29 image 34), consistent with focal nodular hyperplasia. Inferior and medial to this, there is a 1.5 cm arterially enhancing observation in hepatic segment 6/7 (series 9 image 54), which remains hyperintense to hepatic parenchyma on hepatobiliary phase images (series 29 image 58), consistent with focal nodular hyperplasia. A 1 cm subtly arterially enhancing observation is also seen in hepatic segment 8 (series 9 image 52), which is hypointense to hepaticparenchyma on hepatobiliary phase images (series 29 image 48), which does not meet criteria for focal nodular hyperplasia. Just inferior to this there isan enhancing observation that stays enhancing on delayed images consistent with a small focal nodular hyperplasia. Hepatic vasculature Portal and hepatic veins: Normal and patent. Arterial anatomy: Conventional. Gallbladder and bile ducts Gallbladder: Normal. Bile ducts: Nondilated. Retroperitoneum Pancreas: Normal. Adrenals: Normal. Kidneys: Subcentimeter simple renal cysts the midportion of the right kidney. Lymph nodes: No lymphadenopathy. Gastrointestinal: Imaged bowel and mesentery are normal. Impression: 1.Observations with imaging characteristics consistent with focalnodular hyperplasia. The largest of these in hepatic segment 7 measures 3.3 cm, grossly similar in size since prior examination. 2.An indeterminate observation is seen in hepatic segment 8, favored to represent a hepatic adenoma and unchanged from the prior exam. A followup exam in 6 months can be obtained to establish one year stability. 3.No new arterially enhancing lesions. 4.Hepatomegaly with severe diffuse hepatic steatosis. Report dictated by Abran Farr MD (vice president network). This report was approved by Abran Farr on 10/22/2021 2:40 PM . I, Dr. DAGOBERTO HANSEN have personally reviewed and interpreted this examination/study. This report was electronically signed by DAGOBERTO HANSEN on 10/22/2021 2:44PM . Maribel Kitchen MD MR ORDERABLES * CREATININE - POCT INTERFACED (10/22/2021 1:17 PM CDT) Creatinine POCT 0.74 0.30 - 1.30 mg/dL 10/22/2021 1:19 PM CDT [facility] eGFR >90 >90 mL/min/1.7 3 m2 10/22/2021 1:19 PM CDT [facility] Blood BLOOD SPECIMEN / Unknown 10/22/2021 1:17 PM CDT 10/22/2021 1:19 PM CDT Maribel Kitchen MD LAB - POINT OF CARE ORDERABLES [facility] [address] [place] [address], [facility] [phone] documented in this encounter Visit Diagnoses Diagnosis Liver lesion Other specified disorders of liver documented in this encounter Administered Medications Inactive Administered Medications - up to 3 most recent administrations Medication Order MAR Action Action Date Dose Rate Site gadoxetate disodium (Eovist) injection Intravenous, CONTRAST ONCE, Starting on 10/22/21 at 1422, Until 10/23/21 at 0137 $ Given - Contrast 10/22/2021 2:23 PM CDT 10 mL documented in this encounter Care Teams Canvas Shrinker Relationship Specialty Start Date End Date Jonelle Elam MD [address] [place] [address] [place] [id number] PCP - General Family Medicine 10/24/18 Manju Rainey DO [address] [place] [address] Bariatrics 08/11/20 documented as of this encounter
--- OUTSIDE RECORDS SUMMARY | 2024-04-14 17:44 | XMS_ITS | Encounter Summary ---
Author Organization [facility] Address [address] [facility] [place] [address] Care Team Providers Care Senior Office Support Assistant Sosa Name Role Phone Jonelle Elam MD Primary Care Provider Manju Rainey DO Unavailable [phone] Reason for Visit * Reason Onset Date Comments General 02/23/2021 [place] Video Discu ssion/Follow Up Appointments Created Encounter Details Date Type Department Care Team (Late st Contact Info) Description 02/23/2021 Telephone [facility] Medical [facility] - Surgery [address] [place] [address] Keith Bojorquez MD [address] [place] [address] General (LA Video Discussion/Follow Up Appointments Created) Social History Tobacco Use Types Packs/Day Years [...] COVID-19? No / Unsure 02/14/2021 10:58 AM RURAL HEALTH CONSULTANT documented as of this encounter Miscellaneous Notes * Telephone Encounter - Indra Hill - 02/23/2021 5:27 PM CST Called patient to inform her that the Informed Decision [place] video was not properly completed and did not register as completed. Pt informed me that she did not go through with surgery on 02/17/21 due to her children being sick. Pt stated she attempted to send a [employer] message notifying the department of the surgery cancellation. Pt's post operative appointments have been cancelled and patient has been made follow up appointments for [facility] Friction Paint Machine Tender and Carmen Lee BAIT MAKER for 03/24/21. Pt has beenrescheduled for the last LA video and a business card has been mailed to the patient along with the scheduled LA video instructions for completion and access document. Pt voiced her understandingthat she will be put back in rotation for surgery. Pt also advised to keep doing support groups to stay motivated and also to maintain monthly Follow up appointments with the BAIT MAKER and Friction Paint Machine Tender monthlyuntil surgery. Pt again voiced understanding. Patient will call with any concerns or questions. L HEALTH CONSULTANT documented in this encounter Plan of Treatment [...] filedocumented in this encounter Care Teams Senior Office Support Assistant Sosa Relationship Specialty Start Date End Date Jonelle Elam MD [address] [place] [address] [place] [address] PCP - General Family Medicine 10/24/18 Manju Rainey DO [address] [place] [address] Bariatrics 08/11/20 documented as of this encounter
--- OUTSIDE RECORDS SUMMARY | 2024-04-14 17:44 | XMS_ITS | Encounter Summary ---
Author Organization [facility] Address [address] [place] [address] Care Team Providers Care Health And Safety Manager Name Role Phone Jonelle [place] MD Primary Care Provider Manju Rainey DO Unavailable [phone] Skylar Canales PA-C Unavailable [phone] Encounter Details Date Type Department Care Team (Latest Contact Info) Description 04/22/2022 9:05 AM RETAIL SALES LEAD - 04/22/2022 11:59 PM [facility] Hospital Encounter [facility] OP DRAW STATION [address] [place] [phone] Discharge Disposition: Home or Self Care Social [...] Coronavirus/COVID-19? No / Unsure 04/22/2022 9:05 AM RETAIL SALES LEAD documented as of this encounter Medications at [...] filedocumented in this encounter Care Teams Health And Safety Manager Relationship Specialty Start Date End Date Jonelle [place]am MD [address] [place] [address] PCP - General Family Medicine 10/24/18 Manju Rainey DO [address] [place] [address] Bariatrics 08/11/20 Skylar Canales PA-C [address] [facility] 3L [place] [phone] Physician Special Agent [facility] 03/04/22 documented as of this encounter
--- OUTSIDE RECORDS SUMMARY | 2024-04-14 17:44 | XMS_ITS | Encounter Summary ---
Author Organization [facility] Address [address] [place] [address] Care Team Providers Care Drama Critic Name Role Phone Jonelle [place]am MD Primary Care Provider [phone] Manju Rainey DO Unavailable [phone] Encounter Details Date Type Department Care Team (Latest Contact Info) Description 12/17/2021 Travel Social History Tobacco Use Types Packs/Day [...] On track( 021 11:18 AM CDT) No Donnp, Gabriella R, RN Note: Expected end date: ongoing Interventions: Your nurse will assess your risk for falls/injury each visit documented as of this encounter Visit Diagnoses Not on filedocumented in this encounter Care Teams Drama Critic Relationship Specialty Start Date End Date Jonelle [place]am MD [address] [place] [phone] PCP - General Family Medicine 10/24/18 Manju Rainey DO [address] [place] [address] Bariatrics 08/11/20 documented as of this encounter
--- OUTSIDE RECORDS SUMMARY | 2024-04-14 17:44 | XMS_ITS | Encounter Summary ---
Author Organization [facility] Address [address] [place] [address] Care Team Providers Care Skiver Box Toe Name Role Phone Jonelle Elam MD Primary Care Provider Manju Raniey DO Unavailable [phone] Skylar Canales-Desirae Unavailable [phone] Reason for Visit * Reason Comments Hypertension Encounter Details Date Type Department Care Team (Late st Contact Info) Description 03/04/2022 9:00 AM STRIPE MATCHER Office Visit [facility] - Nephrology [address] [place] [address], [place] [phone] Erica Roman MD [address] [place] [address] [place] [address] Secondary hypertension (Primary Dx) Social History Tobacco Use Types Packs/Day Years [...] Sign Reading Time Taken Comments Blood Pressure 148/86 03/04/2022 9:12 AM STRIPE MATCHER Pulse 89 03/04/2022 9:12 AM STRIPE MATCHER Temperature 36.7 ??C (98 ??F) 03/04/2022 9:12 AM STRIPE MATCHER Respiratory Rate - - Oxygen Saturation 100% 03/04/2022 9:12 AM STRIPE MATCHER Inhaled Oxygen Concentration - - Weight 151.5 kg (334 lb) 03/04/2022 9:12 AM STRIPE MATCHER Height - - Body Mass Index 63.11 12/30/2021 3:35 PM CDT documented in this encounter Progress Notes * Skylar Canales PA-C - 03/04/2022 9:54 AM CST Hypertension Clinic Note Date of Visit: 03/04/2022 Time of Visit: 9:57 AM Chief Complaint Patient presents with ??? Hypertension Subjective: Patient is a 26 year old [...] scheduled with PCP/specialist. ??? Depressive disorder ??? BMI 60.0-69.9, adult (CMS/HCC) ??? Generalized [...] (gastroesophageal reflux disease) ??? Lumbar herniated disc Patient notes longstanding HTN most likely starting [...] disease with severe at times LE myalgias. Pt currently on amlodipine and losartan q AM. AM BPs generally responsive to Rx however up substantially by PM. ROS also significant for: dysmenorrhea, metromenorrhagia, h/o ovarian cysts, hair loss, facial hairdevelopment, and mood swings. Patient with a very significant, complex family history including early onset HTN, sudden , ASCVD, CKD. Father with aforementioned as well as horseshoe kidney, and brother with obstructive cystic disease requiring nephrectomy early in life. Patient's 9 yo son also with HTN development already. Outpatient Medications Marked as Taking for the 03/04/22 encounter (Office Visit) with [facility] NEPH HYPERTENSION 308 Medication Sig ??? amLODIPine (Norvasc) 10 MG tablet Take 1 (one) tablet by mouth once daily ??? fluticasone-salmeterol (Advair/Wixela) 100-50 MCG/ACT inhaler Inhale 1 (one) puff by mouth 2 times daily Rinse mouth/throat well and spit after use. ??? gabapentin (NEURONTIN) 100 MG capsule Take 1 (one) capsule by mouth 3 times daily ??? Iron, Ferrous Sulfate, 325 (65 Fe) MG TABS Take by mouth once daily ??? losartan (Cozaar) 100 MG tablet Take 1 (one) tablet by mouth once daily ??? omeprazole [...] Abuse Sister baltazar ??? Bipolar Disorder Sister blatazar ??? Anxiety Disorder Sister baltazar ??? Depression [...] Comment: marijuana a few times in past Review of Systems Comprehensive ROS performed and significant for: Endocrine: hair loss, facial hair development Psychological: mood swings Cardiovascular: HTN MS: Myalgias : dysmenorrhea, metromenorrhagia, h/o ovarian cysts, recurrent UTIs in youth, now improved Objective: Vitals: 03/04/22 0912 BP: 148/86 Pulse: 89 Temp: 98 ??F (36.7 ??C) SpO2: 100% Weight: (!) 151.5 kg (334 lb) Estimated body mass index is 63.11 kg/m?? as calculated from the following: Height as of 12/30/21: 1.549 m (5' 1 ). Weight as of this encounter: 151.5 kg (334 lb). General: Alert, cooperative, no distress, appears stated age. Head/Neck: Normocephalic, without obvious abnormality, atraumatic. Neck symmetrical, trachea midline. ENT/Mouth: Conjunctivae/corneas clear. Mask in place. CV: Regular rate and rhythm, S1, S2 normal, no murmur, click, rub or gallop. Pulses decreased BLE, trace nonpitting lower extremity edema. Respiratory: Clear to auscultation bilaterally. M/S: Back symmetric, no curvature. ROM normal. Extremities normal, atraumatic, no cyanosis. Skin: Skin color normal. No rashes or lesions. Psychiatric: Normal range mood/affect. Data Review Recent Labs Component Name 12/02/20 1434 WBC 7.3 RBC 4.82 HGB 12.6 HCT 38.7 MCV 80.3* MCH 26.1* MCHC 32.6 RDWSD 40.4 RDW 13.8 MPV 11.2 NRBCABS 0.00 NRBCAUTOPCT 0.0 NEUTPCT 56.9 LYMPHSPCT 33.0 MONOPCT 7.3 EOSPCT 1.8 BASOPCT 0.7 IMMGRANSPCT 0.3 NEUTABS 4.2 LYMPHS 2.4 MONO 0.53 EOS 0.13 BASO 0.05 Recent Labs Component Name 10/22/21 1317 04/27/21 1102 12/02/20 1434 04/17/20 1507 04/12/19 1514 01/02/19 1236 BUN - - 12 - - - CREATININE - - 0.63 - - - NA - - 142 - - - POTASSIUM - - 4.0 - - - CL - - 105 - - - CO2 - - 25 - - - CALCIUM - - 9.9 - - - PROT - - 7.2 - 7.8 8.1 ALB - - 4.2 - 3.9 4.5 TBILI - - 0.6 - 0.7 0.8 ALKPHOS - - 66 - 55 71 ALT - - 33 - 12 24 AST - - 19 - 16 20 ANIONGAP - - 16 - - - BCR - - 19 - - - OSMOLALITY - - 293 - - - AGRATIO - - 1.4 - 1.0* 1.3 EGFR >90 >60 >90 - - - - = values in this interval not displayed. Recent Labs Lab 12/02/20 1434 TSH 0.811 Recent Labs Component Name 12/02/20 1434 HGBA1C 5.7 EAG 117 Recent Labs Component Name 12/02/20 1434 PTHINTACT 25.2 Encounter Diagnoses: 1. Secondary hypertension Assessment & Plan: -- Blood Pressure: Highly suspicious for secondary HTN sources, DDX PCOS, vs Fabrys vs hyperaldosteronism vs metabolic syndrome. Will complete full workup as noted below. -- Renal function: S Cr normal, see additional w/u below. -- Medication Changes: pending initial evaluation -- Return to Clinic in 1 month and as needed. Orders Placed This Encounter ??? US KIDNEY WITH DOPPLER COMPLETE ??? US PELVIS W TRANSVAG NON OB ??? RENAL FUNCTION PANEL ??? URIC ACID BLOOD ??? MAGNESIUM BLOOD ??? CBC WITH DIFFERENTIAL ??? ALDOSTERONE/RENIN RATIO PANEL ??? HEMOGLOBIN A1C ??? PTH INTACT ??? VITAMIN D 25-HYDROXY ??? TSH REFLEX FREE T4 ??? URINALYSIS W/MICROSCOPIC REFLEX TO CULTURE ??? PROTEIN CREATININE RATIO URINE RANDOM PNL ??? MICROALB/CREAT RATIO URINE RANDOM PANEL ??? ALDOSTERONE URINE TIMED ??? POTASSIUM URINE TIMED [facility] INSURANCE BILL [id number] [facility] [id number] Patient D/W who agrees with A/P. High complexity of care given history, family history, and comorbid conditions. JIMMY Zavala PA-C Internal Medicine, Div of Nephrology Hypertension Clinic Collaborating MD: Dr Valarie Landin PE MATCHER documented in this encounter Plan of Treatment Scheduled Orders Name Type Priority Associated Diagnoses Orde r Schedule RENAL FUNCTION PANEL Lab Routine Secondary hypertension Ordered: 03/04/2022 URIC ACID BLOOD Lab Routine Secondary hypertension Ordered: 03/04/2022 MAGNESIUM BLOOD Lab Routine Secondary hypertension Ordered: 03/04/2022 CBC WITH DIFFERENTIAL Lab Routine Secondary hypertension Ordered: 03/04/2022 ALDOSTERONE/RENIN RATIO PANEL Lab Routine Secondary hypertension Ordered: 03/04/2022 HEMOGLOBIN A1C Lab Routine Secondary hypertension Ordered: 03/04/2022 PTH INTACT Lab Routine Secondary hypertension Ordered: 03/04/2022 VITAMIN D 25-HYDROXY Lab Routine Secondary hypertension Ordered: 03/04/2022 TSH REFLEX FREE T4 Lab Routine Secondary hypertension Ordered: 03/04/2022 URINALYSIS W/MICROSCOPIC REFLEX TO CULTURE Lab Routine Secondary hypertension Ordered: 03/04/2022 PROTEIN CREATININE RATIO URINE RANDOM PNL Lab Routine Secondary hypertension Ordered: 03/04/2022 MICROALB/CREAT RATIO URINE RANDOM PANEL Lab Routine Secondary hypertension Ordered: 03/04/2022 documented as of this encounter Goals Goal [...] Procedure Name Priority Date/Time Associated Diagnosis Comments ALDOSTERONE URINE TIMED Routine 04/22/2022 9:13 AM STRIPE MATCHER Secondary hypertension POTASSIUM URINE TIMED Routine 04/22/2022 9:13 AM STRIPE MATCHER Secondary hypertension documented in this encounter Results * POTASSIUM URINE TIMED (04/22/2022 9:13 AM STRIPE MATCHER) Potassium Urine 21.2 Not Established mmol/L 04/22/2022 9:51 AM STRIPE MATCHER [facility] Collection Time Timed Urine 24 Hrs 04/22/2022 9:51 AM [facility] Potassium 24 Hour Urine 36.0 25.0 - 150.0 mmol/24 hrs 04/22/2022 9:51 AM [facility] Volume Timed Urine 1,700 mL 04/22/2022 9:51 AM [facility] Comment:START 04/21/22718- --STOP 04/22/22701---WT 347 HT 5'2 Urine TIMED URINE SPECIMEN / Unknown Timed Urine Volume Measurement / Unknown 04/22/2022 9:13 AM STRIPE MATCHER 04/22/2022 9:21 AM [facility] Skylar Canales PA-C LAB - URINE CHEMIS TRY ORDERABLES [facility] [address] [place] [address], [facility] [phone] * (ABNORMAL) ALDOSTERONE URINE TIMED (04/22/2022 9:13 AM [facility]) Aldosterone 24 Hour Urine 22.6 1.2 - 28.1 ug/d 04/27/2022 12:41 PM [facility] [facility]) Collection Time Hours 24 hr 04/27/2022 12:41 PM [facility] [employer] [facility]) Comment: Per 24h calculations are provided to aid interpretation for collections with a duration of 24 hours and an average daily urine volume. For specimens with notable deviations in collection time or volume, ratios of analytes to a corresponding urine creatinine concentration may assist in result interpretation. Volume 24 Hour Urine 1700 mL 04/27/2022 12:41 PM [facility] [employer] [facility]) Creatinine Urine 98 mg/dL 04/27/19 12:41 PM [facility] [employer] [facility]) Creatinine 24 Hour Urine 1666(H) 700 - 1600 mg/d 04/27/2022 12:41 PM [facility] [employer] [facility]) Comment: Performed by [email or web address], [address] [place] [id number] [email or web address], Paul Werner MD, PHD, Lab. Director Urine TIMED URINE SPECIMEN / Unknown Timed Urine Volume Measurement / Unknown 04/22/2022 9:13 AM STRIPE MATCHER 04/22/2022 9:21 AM STRIPE MATCHER Skylar Canales PA-C LAB - URINE CHEMIS TRY ORDERABLES [facility] ([facility]) [address] [place] [address], [facility] documented in this encounter Visit Diagnoses Diagnosis Secondary hypertension- Primary documented in this encounter Care Teams Skiver Box Toe Relationship Specialty Start Date End Date Jonelle [place] MD [address] [place] [address] [place] [address] PCP - General Family Medicine 10/24/18 Manju Rainey DO [address] [place] [address] Bariatrics 08/11/20 Skylar Canales PA-C [address] [facility] [place] [address] Physician Corncob Pipes Assembler Nephrology 03/04/22 documented as of this encounter
--- OUTSIDE RECORDS SUMMARY | 2024-04-14 17:44 | XMS_ITS | Encounter Summary ---
Author Organization [facility] Address [address] [facility] [place] [address] Care Team Providers Care Night Stocker Name Role Phone Jonelle [place] MD Primary Care Provider [phone] Manju Rainey DO Unavailable [phone] Encounter Details Date Type Department Care Team (Late st Contact Info) Description 01/03/2022 Orders Only [facility] [address] [facility], [place] [phone] Jeff Bird, PANTOGRAPH SETTER-TRANSMISSION BUILDER [address] [phone] Social History Tobacco Use Types Packs/Day Years [...] on filedocumented in this encounter Care Teams Night Stocker Relationship Specialty Start Date End Date Jonelle [place] MD [address] [place] [address] [place] [address] PCP - General Family Medicine 10/24/18 Manju Rainey DO [address] [place] [address] Bariatrics 08/11/20 documented as of this encounter
--- OUTSIDE RECORDS SUMMARY | 2024-04-14 17:44 | XMS_ITS | Encounter Summary ---
Author Organization [facility] Address [address] [facility] [place] [address] Care Team Providers Care Twist Tester Name Role Phone Jonelle [place] MD Primary Care Provider Manju Rainey DO Unavailable [phone] Reason for Visit * Reason Onset Date Comments General 02/04/2021 Encounter Details Date Type Department Care Team (Late st Contact Info) Description 02/04/2021 Telephone [facility] [address] [place] [phone] Keith Bojorquez MD [address] [place] [address] General Social History Tobacco Use Types Packs/Day Years [...] * Telephone Encounter - Indra Hill - 02/04/2021 12:44 PM CDT Surgery Scheduled Called patient and surgery is scheduled for 02/17/2021 in [place]. Patient aware of all preop appointments and instructions have been sent to them through [employer]. Pt is aware that COVID test IS required. Pt v/u and will call us with any additional questions. documented in this encounter Plan of Treatment [...] on filedocumented in this encounter Care Teams Twist Tester Relationship Specialty Start Date End Date Jonelle [place] MD [address] [place] [address] [place] [phone] PCP - General Family Medicine 10/24/18 Manju Rainey DO [address] [place] [address] Bariatrics 08/11/20 documented as of this encounter
--- OUTSIDE RECORDS SUMMARY | 2024-04-14 17:44 | XMS_ITS | Encounter Summary ---
Author Organization [facility] Address [address] [place] [address] Care Team Providers Care Clinical Science Liaison Name Role Phone Jonelle [place] MD Primary Care Provider [phone] Manju Rainey DO Unavailable [phone] Encounter Details Date Type Department Care Team (Late st Contact Info) Description 11/03/2021 Orders Only [facility] [address] [place] [address] Reena Plolock, APNP-SALES ENABLEMENT MANAGER [address] [facility] 2L DIV OF PULMONARY/[place] [address] MOOSE (obstructive sleep apnea); Essential hypertension; BMI 60.0-69.9, adult (HCC); Sleep related headaches; Chronic fatigue; Daytime sleepiness; Restless sleeper; Weight gain; Sleep talking; Confusional arousals; Sleep drunkenness; Sleep related rhythmic movement disorder; Sleep related bruxism; Hypnic jerks; Restless legs syndrome (RLS); Chest pain, unspecified type; Generalized anxiety disorder Social History Tobacco Use Types Packs/Day [...] as of this encounter Visit Diagnoses Diagnosis MOOSE (obstructive sleep apnea) Obstructive sleep apnea (adult) (pediatric) Essential hypertension BMI 60.0-69.9, adult (HCC) Body Mass Index 60.0-69.9, adult Sleep related headaches Headache Chronic fatigue Other malaise and fatigue Daytime [...] Chest pain, unspecified type Generalized anxiety disorder documented in this encounter Care Teams Clinical Science Liaison Relationship Specialty Start Date End Date Jonelle [place] MD [address] [place] [address] [place] [phone] PCP - General Family Medicine 10/24/18 Manju Rainey DO [address] [place] [address] Bariatrics 08/11/20 documented as of this encounter
--- OUTSIDE RECORDS SUMMARY | 2024-04-14 17:44 | XMS_ITS | Encounter Summary ---
Author Organization [facility] Address [address] [facility] [place] [address] Care Team Providers Care Roll On Worker Name Role Phone Jonelle [place] MD Primary Care Provider [phone] Manju Rainey DO Unavailable [phone] Encounter Details Date Type Department Care Team (Late st Contact Info) Description 02/10/2021 11:00 AM SHEAR TENDER Video Visit [facility] [address] [place] [phone] Morbid obesity (HCC) Social History Tobacco [...] PM CDT documented as of this encounter Progress Notes * Yasmin Sanches, SOURAV/CHI - 02/10/2021 11:00 AM CST Patient Verification & Telemedicine Based Consent I [...] to the billing and collection practices of [facility]. Patient location: Home This encounter was performed using: audio and video Total time spent on visit on date of encounter is: 55 minutes MEDICAL NUTRITION THERAPY Weight Management Services Telehealth Bariatric Pre-Op Education Class Date: 02/10/21 Patient: Deya Campbell Date of : 1995 (25 year old) PCP Physician: Jonelle [place] MD Referring Physician: Maryellen Time Class Began: 1105 Time Class Ended: 1200 Height: 5'2 Current Weight: 314.2# Weight Change From Last Visit: gain 0.8# Pt seen in group setting for bariatric pre-operative nutrition education. Basic nutrition, phase I bariatric diet principles and diet progression, approved protein supplementation, nutrient deficiencies and supplementation, possible complications, and keys for success were discussed. Demonstrated proper way to drink to prevent swallowing air. Reviewed answers to pre-surgery quiz and signed for completion. Quiz to be further reviewed by surgeon at pre-op visit later today. Pt was in attendance via Zoom. Pt was attentive throughout presentation, asked appropriate questions and v/u. Pt's compliance is expected to be fine. Barriers include some wt gain. RD encouraged pt contact office with any questions or concerns before surgery. Pt was assured that regular follow-up with RD in the hospital post-op and at outpatient visits would be provided and encouraged. RD available as needed between scheduled appointments. Quiz Procedure: VSG How long in hospital: 1 night Possible Post Op Complications: bleeding, infection, PNA, blood clots, vitamin/mineral deficiencies Necessary to take vitamins after surgery? Yes For how long: Life How many cc/mL in 1 oz?: 30 How many oz can you drink day 1 post op every 30 minutes?: 1 oz How many oz can you drink day 2 post op every 30 minutes?: 2 oz Once d/c, what should you do if you experience any unusual symptoms or pain? Call office, call surgeon, go to ER How will you know when to begin eating foods? When RD tells you it's okay You will be a pt of [facility] for how long? Life Is physical activity after surgery optional or required? Required How often? Ideally 5x/week for 30 minutes/x Total MNT minutes this calendar year: 135/240 R TENDER documented in this encounter Plan of Treatment [...] obesity documented in this encounter Care Teams Roll On Worker Relationship Specialty Start Date End Date Jonelle [place] MD [address] [place] [address] [place] [address] PCP - General Family Medicine 10/24/18 Manju Rainey DO [address] [place] [address] Bariatrics 08/11/20 documented as of this encounter
--- OUTSIDE RECORDS SUMMARY | 2024-04-14 17:44 | XMS_ITS | Encounter Summary ---
Author Organization [facility] Address [address] [facility] [place] [address] Care Team Providers Care Health Education Specialist Name Role Phone Jonelle [place] MD Primary Care Provider Manju Rainey DO Unavailable [phone] Reason for Visit * Reason Onset Date Comments Missed Appointment 02/17/2021 Encounter Details Date Type Department Care Team (Late st Contact Info) Description 02/17/2021 Telephone [facility] Management Services [address] [place] [phone] Keith Bojorquez MD [address] [place] [address] Missed Appointment Social History Tobacco Use Types Packs/Day [...] COVID-19? No / Unsure 02/14/2021 10:58 AM LOGISTICS TEAM LEADER documented as of this encounter Miscellaneous Notes * Telephone Encounter - Nury Jack RN - 02/17/2021 9:12 AM LOGISTICS TEAM LEADER Attempted to contact pt no answer LVM to return call. Pt did not show up for schedule surgery today. Called mother who is alternate assembly lead person checking on patient to make sure everything is ok. Mother stated that patient sent a message to our office stating she changed her mind and did not wantthe surgery at this time. Encouraged patient to contact our office for any needs and if she would like we can set her up to see our [facility] provider. Mother will contact daughter and have her return ourcall. STICS TEAM LEADER documented in this encounter Plan of Treatment [...] filedocumented in this encounter Care Teams Health Education Specialist Relationship Specialty Start Date End Date Jonelle [place] MD [address] [place] [address] [place] [phone] PCP - General Family Medicine 10/24/18 Manju Rainey DO [address] [place] [address] Bariatrics 08/11/20 documented as of this encounter
--- OUTSIDE RECORDS SUMMARY | 2024-04-14 17:44 | XMS_ITS | Encounter Summary ---
Author Organization [facility] Address [address] [place] [address] Care Team Providers Care Chief Of Internal Medicine Name Role Phone Jonelle Elam MD Primary Care Provider [phone] Manju Rainey DO Unavailable [phone] Skylar Canales-Desirae Unavailable [phone] Reason for Referral * Consultation (Routine) - Closed Specialty Diagnoses / Procedures Referred By Contava t Referred To Contact Weight Management Diagnoses NAFLD (nonalcoholic fatty liver disease) Morbid (severe) obesity due to excess calories (HCC) Linda Gurrola APRN-CNP [address] [place] [address] [facility] [place] [address] Referral ID Status Reason Start Date Expiration Date V isits Requested Visits Authorized [id number] Closed Specialty Services Required 04/25/2022 04/25/2023 1 1 RBOAT MECHANIC HELPER Encounter Details Date Type Department Care Team (Late st Contact Info) Description 04/25/2022 Orders Only [facility] [address] [place] [address], [place] [id number] Linda Gurrola, SPINE SPECIALIST-TAX MAP TECHNICIAN [address] [place] [address] NAFLD (nonalcoholic fatty liver disease) ; Morbid (severe) obesity due to excess calories (HCC) Social History Tobacco Use Types Packs/Day [...] Coronavirus/COVID-19? No / Unsure 04/22/2022 9:05 AM MOTORBOAT MECHANIC HELPER documented as of this encounter Plan of Treatment Scheduled Referrals Name Type Priority Associated Diagnoses Orde r Schedule AMB REFERRAL TO WEIGHT LOSS CLINIC Outpatient Referral Routine NAFLD (nonalcoholic fatty liver disease) Morbid (severe) obesity due to excess calories (HCC) Ordered: 04/25/2022 documented as of this encounter Goals Goal [...] disease)- Primary Other chronic nonalcoholic liver disease Morbid (severe) obesity due to excess calories (HCC) documented in this encounter Care Teams Chief Of Internal Medicine Relationship Specialty Start Date End Date Jonelle Elam MD [address] [place] [address] [place] [phone] PCP - General Family Medicine 10/24/18 Manju Rainey DO [address] [place] [address] Bariatrics 08/11/20 Skylar Canales PA-C [address] [facility] [place] [place] [id number] Physician Care Transition Mgr Nephrology 03/04/22 documented as of this encounter
--- OUTSIDE RECORDS SUMMARY | 2024-04-14 17:44 | XMS_ITS | Encounter Summary ---
Author Organization [facility] Address [address] [facility] [place] [address] Care Team Providers Care Cafeteria Director Name Role Phone Jonelle Elam MD Primary Care Provider Manju Rainey DO Unavailable [phone] Encounter Details Date Type Department Care Team (Late st Contact Info) Description 02/09/2021 9:45 AM BEAUTICIAN APPRENTICE - 02/09/2021 11:59 PM [facility] Hospital Encounter [facility] PREADMISSION [address] [place] [address] Keith Bojorquez MD [facility] [place] [address] Discharge Disposition: Home or Self Care Anesthesia Record Procedure Summary Procedure Name Responsible Anesthesiologist Anesthesia Start Time Anesthesia Stop Time LAPAROSCOPIC SLEEVE GASTRECTOMY AND PORCEDURES NECESSARY (Abdomen) Events No events on file. Meds * Agents No agents on file. * Blood No blood administrations on file. Lines, Drains, and Airways No LDAs on file. documented in this encounter Social History Tobacco Use Types Packs/Day Years [...] Sign Reading Time Taken Comments Blood Pressure 134/76 02/09/2021 10:11 AM BEAUTICIAN APPRENTICE Pulse 63 02/09/2021 10:11 AM BEAUTICIAN APPRENTICE Temperature 36.5 ??C (97.7 ??F) 02/09/2021 10:[address] Respiratory Rate - - Oxygen Saturation 100% 02/09/2021 10:11 AM BEAUTICIAN APPRENTICE Inhaled Oxygen Concentration - - Weight 142.9 kg (315 lb) 02/09/2021 10:11 AM BEAUTICIAN APPRENTICE Height 157.5 cm (5' 2 ) 02/09/2021 10:11 AM BEAUTICIAN APPRENTICE Body Mass Index 57.61 02/09/2021 10:11 AM BEAUTICIAN APPRENTICE documented in this encounter Medications at Time of Discharge Medication Sig Dispensed Refills Start Date End Date vitamin D, cholecalciferol, 50 MCG (1999 UT) tablet Take 1 (one) tablet by mouth once daily ascorbic acid (VITAMIN C) 500 MG tablet Take 1 (one) tablet by mouth 2 times daily for 90 days 60 tablet 2 12/04/2020 03/04/2021 celecoxib (CELEBREX) 200 MG capsule Take 1 (one) capsule by mouth once for 1 dose Take medication morning of surgery while on way to hospital - may take with SIP of water. 1 capsule 02/17/2021 02/17/2021 escitalopram (LEXAPRO) 10 MG tablet Take 10 mg by mouth once daily 10/30/2020 04/22/2022 ferrous sulfate 325 (65 FE) MG tablet Take 1 (one) tablet by mouth once daily for 90 days 30 tablet 2 12/04/2020 03/04/2021 gabapentin (NEURONTIN) 300 MG capsule Take 1 (one) capsule by mouth once for 1 dose Take medication morning of surgery while on way to hospital - may take with SIP of water. 1 capsule 02/17/2021 02/17/2021 losartan (COZAAR) 100 MG tablet Take 100 mg by mouth once daily 04/01/2020 07/01/2021 Multiple Vitamin (MULTIVITAMIN PO) Take 1 tablet by mouth once daily 07/01/2021 omeprazole (PRILOSEC) 20 MG capsule Take 1 (one) capsule by mouth once daily Stop pantoprazole. Begin taking omeprazole post operatively. 90 capsule 02/17/2021 11/03/2021 ondansetron, disintegrating, (ZOFRAN ODT) 4 MG tablet Take 1 (one) tablet by mouth every 4 hours as needed for Nausea/Vomiting 12 tablet 02/17/2021 07/01/2021 oxyCODONE, immediate release, (ROXICODONE) 5 MG tablet Take 1 (one) tablet by mouth every 6 hours as needed for Pain (To be taken if pain not controlled with Tylenol. Use for moderate to severe pain) 12 tablet 02/17/2021 07/01/2021 Paragard Intrauterine Copper IUD ParaGard T 380A 380 square mm intrauterine device Take by intrauterine route. 11/03/2021 Probiotic Product (Hulafrog) capsule Take 1 (one) capsule by mouth once daily 30 capsule 02/17/2021 07/01/2021 scopolamine (TRANSDERM-SCOP) 1 MG patchIndications:Surg reina Apply 1 (one) patch to skin once for 1 dose Apply patch the night before surgery behind your ear. Reasons: Operation 1 patch 02/17/2021 02/17/2021 topiramate (TOPAMAX) 100 MG tablet Take 100 mg by mouth 2 times daily 11/03/2021 vitamin D, ergocalciferol, (DRISDOL) 1.25 MG (09898 UT) capsuleIndications:Vi tamin D Deficiency Take 1 (one) capsule by mouth every 7 days Reasons: Vitamin D Deficiency 4 capsule 3 12/04/2020 12/30/2021 documented as of this encounter Nursing Notes * Meseret Aviles RN - 02/09/2021 10:40 AM CST Patient's name, date of , surgeon and procedure verified with patient. LAPAROSCOPIC SLEEVE GASTRECTOMY AND PORCEDURES NECESSARY Informed that surgery nurse will call 1-2 business days prior to surgery with arrival time. Instructed patient should enter at main hospital entrance day of surgery at scheduled arrival time and check in at the registration desk. Instructed patient must have responsible adult to drive them home after procedure and listen to postop instructions. Instructed patient should not wear make up, hair products, lotion, powder, jewelry or bring valuables day of surgery. Informed at present time due to Covid-19 virus for safety of patient and staff, TWO VISITORS, must be over age 18, allowed to accompany patient in hospital day of surgery or during hospital stay, discussed in detail with patient. Instructed everyone required to wear mask in hospital. Patient informed will need to provide urine specimen for test when arrives at hospital. Patient instructed to have Covid-19 test on 02/14/21 and instructed MUST self- quarantine from the time of test, aside from going to work or doctors appointments, until the time of procedure. Instructed patient to contact surgeon to reschedule if unable to quarantine. Patient said will have test performed at an [facility] or Hospital. Instructed test should be done prior to 1100 that day to ensureresults are available the day of their procedure. Patient verbalized understanding to all above instructions. Patient's medications and allergies reviewed with patient. Instructed patient to bring accurate medication list to hospital on day of surgery. Instructed patient to shower with Chlorhexidine soap 2 days prior to surgery and morning of surgery, soap and written instructions given to patient. Instructed if has questions prior to surgery or if sick morning of surgery call [facility] surgery [phone]. Dr Molina in to see patient, surgery chart, medication list, labs, pre-op testing reviewed, anesthesiadiscussed with patient and pre-op orders placed. Dr Molina instructed patient to take NO MEDICATIONS morning of surgery except pre op medications instructed to take by Dr Bojorquez at 02/09/21 visit with sipof water. Instructed patient nothing to eat or drink after MIDNIGHT night before procedure including no gum, candy or mints. Patient verbalized understanding to above instructions. Anesthesia, surgical and covid consent signed and on patient's chart. Pre-op testing completed and results in chart. All above instructions discussed with patient verbally and given in writing, all questions answered and patient verbalized understanding. TICIAN APPRENTICE documented in this encounter Plan of Treatment [...] Procedure Name Priority Date/Time Associated Diagnosis Comments CARDIAC EKG ORDER 02/10/2021 10: 19 AM BEAUTICIAN APPRENTICE EKG 12-LEAD Routine 02/09/2021 11:08 AM BEAUTICIAN APPRENTICE Central sleep apnea due to medical condition BLOOD TYPE VERIFICATION Routine 02/09/2021 11:07 AM BEAUTICIAN APPRENTICE TYPE + SCREEN PANEL STAT 02/09/2021 1 1:04 AM BEAUTICIAN APPRENTICE Pre-op testing documented in this encounter Results * CARDIAC EKG ORDER (02/10/2021 10:19 AM BEAUTICIAN APPRENTICE) Narrative 02/10/2021 10:19 AM BEAUTICIAN APPRENTICE Ordered by an unspecified provider. Scanned Document CARDIAC SERVICES ORD ERABLES * EKG 12-LEAD (02/09/2021 11:08 AM BEAUTICIAN APPRENTICE) Ventricular Rate 67 BPM [facility] Atrial Rate 67 BPM [facility] P-R Interval 172 ms [facility] QRS Duration ms 94 ms [facility] Q-T Interval ms 404 ms [facility] QTC Calculation (Bezet) 426 ms [facility] Calculated P [place] 24 degrees [facility] MUSE Calculated R [place] 14 degrees [facility]USE Calculated T [place] 16 degrees [facility] Interpretation EKG NORMAL SINUS RHYTHM NORMAL ECG Confirmed by MD ELSA, KULWANT ([id number]), business editor ZELALEM ROBLES ([id number]) on 02/09/2021 2:18:40 PM [facility] MUSE 02/09/2021 11:0 8 AM BEAUTICIAN APPRENTICE 02/09/2021 2:18 PM BEAUTICIAN APPRENTICE Mary Long MD ECG ORDERABLE S Performing Organization Address City/[facility]/ZIP Co de Phone Number [facility] MUSE * BLOOD TYPE VERIFICATION (02/09/2021 11:07 AM BEAUTICIAN APPRENTICE) ABO Rh O POS 02/09/2021 11:32 AM BEAUTICIAN APPRENTICE [facility] BLOOD BANK Blood Bank BLOOD SPECIMEN / Unknown Lab Venipuncture / Unknown 02/09/2021 11:07 AM BEAUTICIAN APPRENTICE 02/09/2021 11:11 AM BEAUTICIAN APPRENTICE aMry Long MD LAB - BLOOD B ANK ORDERABLES Performing Organization Address [facility] Co de Phone Number [facility] BLOOD BANK [address] [place] [address] * TYPE + SCREEN PANEL (02/09/2021 11:04 AM BEAUTICIAN APPRENTICE) ABO Rh O POS 02/09/2021 11:52 AM BEAUTICIAN APPRENTICE [facility] BLOOD BANK Antibody Screen NEG 11:52 AM BEAUTICIAN APPRENTICE [facility] BLOOD BANK Blood Bank BLOOD SPECIMEN / Unknown Lab Venipuncture / Unknown 02/09/2021 11:04 AM BEAUTICIAN APPRENTICE 02/09/2021 11:09 AM BEAUTICIAN APPRENTICE Mary Long MD LAB - BLOOD B ANK ORDERABLES Performing Organization Address [facility] Co de Phone Number [facility] BLOOD BANK [address] [place] [address] documented in this encounter Visit Diagnoses Diagnosis Pre-op testing- Primary Preoperative examination, unspecified Central sleep apnea due to medical condition Unspecified sleep apnea documented in this encounter Care Teams Cafeteria Director Relationship Specialty Start Date End Date Jonelle Elam MD [address] [place] [address] [place] [phone] PCP - General Family Medicine 10/24/18 Manju Rainey DO [address] [place], [place] [phone] (Work) Bariatrics 08/11/20 documented as of this encounter
--- OUTSIDE RECORDS SUMMARY | 2024-04-14 17:44 | XMS_ITS | Encounter Summary ---
Author Organization [facility] Address [address] [place] [address] Care Team Providers Care Reading Instructor Name Role Phone Jonelle Elam MD Primary Care Provider [phone] Manju Rainey DO Unavailable [phone] Skylar Canales-Desirae Unavailable [phone] Reason for Visit * Reason Comments Liver Problem Encounter Details Date Type Department Care Team (Late st Contact Info) Description 05/12/2022 3:00 PM PILOT PLANT OPERATOR Office Visit [facility] [address] [facility], [place] [address] Linda Gurrola, SANITATION WORKER CLEANING MACHINERY-ESTIMATOR BINDING [address] [place] [address] [address] [place] [address] NAFLD (nonalcoholic fatty liver disease) (Primary Dx); Hepatic adenoma Social History Tobacco Use Types [...] Coronavirus/COVID-19? No / Unsure 04/22/2022 9:05 AM PILOT PLANT OPERATOR documented as of this encounter Last Filed Vital Signs Vital Sign Reading Time Taken Comments Blood Pressure 129/65 05/12/2022 2:53 PM PILOT PLANT OPERATOR Pulse 87 05/12/2022 2:53 PM PILOT PLANT OPERATOR Temperature 36.3 ??C (97.4 ??F) 05/12/2022 2:53 PM CS T Respiratory Rate 18 05/12/2022 2:53 PM PILOT PLANT OPERATOR Oxygen Saturation 100% 05/12/2022 2:53 PM PILOT PLANT OPERATOR Inhaled Oxygen Concentration - - Weight 153.8 kg (339 lb) 05/12/2022 2:53 PM PILOT PLANT OPERATOR Height - - Body Mass Index 62 03/23/2022 9:25 AM PILOT PLANT OPERATOR documented in this encounter Progress Notes * Linda Gurrola, SANITATION WORKER CLEANING MACHINERY-ESTIMATOR BINDING - 05/12/2022 3:09 PM CST I saw Ms. Campbell in [facility] today for follow up visit regarding: Past Visit Note. 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 Previous imaging mentioned the presence ofan adenoma. The lesions are increasing in size.? Clinical Trial:??none available ?? Board Recommendations:?Repeat imaging in 6 months. MRI with eovist ?? 07/01/21 Deya Campbell is a 25 year old female in clinic for follow up regarding??NAFLD and liver lesions. She is accompanied by her spouse today. She??reports increased stress between work and family (children age 9,2 and one ). 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 She admits to stress eating. She was unable to proceed with weight loss surgery due to high blood pressure. She was hoping to look into non surgical weight loss options. She had her weight down to 290 at one point but has since gained and back up to 338 lbs today. She doesn't ??have time to exercise. She has been experiencing headaches with vomiting and photophobia as well. She has not been seen by neurology for this but has been evaluated in ER. No complications related to liver. No jaundice ever, no LLE, no abdominal distention. ??No bloody or melanous stools. ?? 12/30/21 Deya Campbell is a 26 year old [...] per day. She is monitoring this through [employer] jaqui. She is also walking some with goal of 10k steps per day. She has a gym membership but hasn't been in a while. She is working a lot, working from home. She reports intermittent chest pain over the past 1-2 months. Her blood pressure has been elevated as well. No headache, shortness of breath, weakness, blurry vision. She has appointment with her creamery worker in January. Liver cancer conference 04/27/22 Discussion: Pt has 2 FNHs in segment 4 and 6. There is a 3rd lesion that is an adenoma. There is nochange in any of the lesions since 2019. ?? Clinical Trial: none available ?? Board Recommendations: Because of the adenoma, the pt should have a repeat imaging with US in one year. Chief Complaint Patient presents with ??? Liver Problem Patient Active Problem List: Cataracts, bilateral NAFLD (nonalcoholic fatty liver disease) GERD (gastroesophageal reflux disease) Lumbar herniated disc Diverticulitis Sleep apnea Frequent headaches Depressive disorder Essential hypertension BMI 60.0-69.9, adult (CMS/HCC) Generalized anxiety disorder Excessive caffeine intake Migraines Prediabetes Uses intrauterine device for control Interim history: Deya Campbell is a 26 year old female in clinic for follow up regarding NAFLD and liver lesions. Liver lesions reviewed in tumor board and thought to be FNH's and hepatic adenoma with recommendation to repeat Ultrasound at 1 year to follow up on adenoma. She is on non estrogen containing control. Since last visit she reports lifestlye modifications over the past 1 month including increased wa ter, protein shakes, modifying snack food ( veggie straws, smart pop rather than chips), eating chicken, tuna, hard boiled eggs. imitation crab, nuts, fruit.Limiting ice cream, cookies. Counting calories to 1500 per day. Stopped drinking soda and tea. She is up 1 pound from our last visit but reports she had gained and was nearly 350 lbs prior to lifestyle modification over the past 1 month. She is 339 lbs today. She admits to weighing self 20+ times per day. Stressing over weight numbers. She is trying to stay active but no real exercise. She feels her clothing is fitting looser. She recently had stents placed to bilateral iliac arteries, seems to be recovering well but had quite a bit of pain postoperatively. She has occasional upper abdominal pain. She has no additional concerns today. Current Outpatient Medications Medication Sig ??? amLODIPine [...] No current facility-administered medications for this visit. She??describes her??current alcohol consumption as none ?? cigarette smoking??no ?? Family history of liver disease: no?? 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 Shortness of breath: none. Nausea and vomiting: none. Constipation or diarrhea: none. Upper or lower GI bleeding: none. On exam today, she appeared obese, alert and anicteric. I reviewed today's vital signs with the patient. Vitals: 05/12/22 1453 BP: 129/65 Pulse: 87 Resp: 18 Temp: 97.4 ??F (36.3 ??C) SpO2: 100% Weight: (!) 153.8 kg (339 lb) Body mass index is 62 kg/m??. Wt Readings from Last 3 Encounters: 05/12/22 (!) 153.8 kg (339 lb) 04/22/22 (!) 154.2 kg (340 lb) 03/23/22 (!) 156.9 kg (346 lb) . Lungs were clear to auscultation bilaterally. Heart sounds were regular rate and rhythm. There were no murmurs. Abdomen was obese, soft and nontender. Liver edge palpable: no. Spleen palpable: no. Ascites: none. Hernias: none. Pretibial edema: none. Relevant test results: Recent Labs Component Name 05/12/22 1633 03/04/22 1041 12/02/20 1434 04/12/19 1514 TBILI 0.7 - 0.6 0.7 ALKPHOS 63 - 66 55 ALT 27 - 33 12 AST 20 - 19 16 ALB 3.9 4.2 4.2 3.9 NA 135* 138 142 - POTASSIUM 3.8 3.8 4.0 - CO2 25 25 25 - CREATININE 0.57 0.55* 0.63 - BUN 9 9 12 - HGB 11.6* 13.1 12.6 - WBC 9.0 6.9 7.3 - PLTCOUNT 341 341 196 - INR - - 1.0 - Chronic liver disease workup: HCV ab [...] lesions. 4.Hepatomegaly with severe diffuse hepatic steatosis. ? -MRI abd w/wo contrast 11/03/18: Liver is [...] 11/05/18: Liver stiffness 7.6 kPa, CAP 396 Assessment: 1. NAFLD without cirrhosis 2. Liver lesions, 2FNH, 1 hepatic adenoma 3. morbid obesity, BMI 62 4. hepatomegaly? 5. HTN Plan: 1. blood work today. 2. Ultrasound annually for adenoma follow up. schedule follow up for 05/02/2023 3. will attempt starting GLP1 for weight loss 4. Specific recommendations were provided regarding diet and exercise including the avoidance of sugar sweetened beverages and dietary trans-fats. Continued weight loss encouraged An appointment was scheduled for her to see me in followup in one year. Copy to: Jonelle Elam MD [address] [place] [address] [place] [address] [facility] Division of Gastroenterology and Hepatology Collaborating physician: Dr. Farhad Mesa May 16, 2022 Orders Placed This Encounter ??? US ABDOMEN LIMITED ??? CBC WITH DIFFERENTIAL ??? COMPREHENSIVE METABOLIC PANEL T PLANT OPERATOR documented in this encounter Plan of [...] documented as of this encounter Results * (ABNORMAL) COMPREHENSIVE METABOLIC PANEL (05/12/2022 4:33 PM [facility]) BUN 9 7 - 26 mg/dL 05/12/2022 5:18 PM [facility] Creatinine 0.57 0.56 - 0.96 mg/dL 05/12/2022 5:18 PM [facility] Sodium 135(L) 136 - 145 mmol/L 05/12/2022 5:18 PM [facility] Potassium 3.8 3.5 - 4.5 mmol/L 05/12/2022 5:18 PM [facility] Chloride 104 98 - 107 mmol/L 05/12/2022 5:18 PM [facility] CO2 25 22 - 29 mmol/L 05/12/2022 5:18 PM [facility] Glucose 98 70 - 115 mg/dL 05/12/2022 5:18 PM [facility] Calcium 9.5 8.4 - 10.2 mg/dL 05/12/2022 5:18 PM [facility] Protein Total 7.3 6.0 - 8.3 g/dL 05/12/2022 5:18 PM [facility] Albumin 3.9 3.4 - 5.0 g/dL 05/12/2022 5:18 PM [facility] Bilirubin Total 0.7 0.2 - 1.2 mg/dL 05/12/2022 5:18 PM [facility] Alkaline Phosphatase 63 40 - 150 U/L 05/12/2022 5:18 PM [facility] ALT 27 5 - 55 U/L 05/12/2022 5:18 PM [facility] AST 20 5 - 34 U/L 05/12/2022 5:18 PM [facility] Anion Gap 10 8 - 18 05/12/2022 5:18 PM [facility] BUN/Creatinine Ratio 16 7 - 23 05/12/2022 5:18 PM [facility] Osmolality Calculated 279 270 - 300 mOsm/kg 05/12/2022 5:18 PM [facility] Albumin/Globulin Ratio 1.1 1.1 - 2.3 05/12/2022 5:18 PM [facility] eGFR by CKD-EPI >90 >=90 mL/min/1.7 3 m2 05/12/2022 5:18 PM [facility] Blood BLOOD SPECIMEN / Unknown Lab Venipuncture / Unknown 05/12/2022 4:33 PM PILOT PLANT OPERATOR 05/12/2022 4:48 PM PILOT PLANT OPERATOR Linda Gurrola SANITATION WORKER CLEANING MACHINERY-ESTIMATOR BINDING LAB - CHEMI STRY ORDERABLES [facility] [address] [place] [address], [facility] [phone] * (ABNORMAL) CBC WITH DIFFERENTIAL (05/12/2022 4:33 PM PILOT PLANT OPERATOR) WBC 9.0 3.5 - 10.5 10? 3 /uL 05/12/2022 4:56 PM [facility] RBC 4.24 3.80 - 5.20 10? 6 /uL 05/12/2022 4:56 PM [facility] Hemoglobin 11.6(L) 12.0 - 15.6 g/dL 05/12/2022 4:56 PM [facility] Hematocrit 34.4(L) 35.0 - 45.0 % 05/12/2022 4:56 PM [facility] MCV 81.1 80.7 - 98.3 fL 05/12/2022 4:56 PM [facility] MCH 27.4 26.7 - 34.0 pg 05/12/2022 4:56 PM [facility] MCHC 33.7 30.8 - 35.9 g/dL 05/12/2022 4:56 PM [facility] RDW-SD 38.5 36.0 - 50.0 fL 05/12/2022 4:56 PM [facility] RDW-CV 13.2 11.2 - 14.8 % 05/12/2022 4:56 PM [facility] Platelet Count 341 150 - 400 10? 3 /uL 05/12/2022 4:56 PM [facility] MPV 9.3(L) 9.4 - 12.9 fL 05/12/2022 4:56 PM [facility] nRBC Absolute 0.00 0 10? 3 /uL 05/12/2022 4:56 PM [facility] nRBC Auto 0.0 0 /100 WBC 05/12/2022 4:56 PM [facility] Neutrophils % 63.0 35.0 - 70.0 % 05/12/2022 4:56 PM [facility] Lymphocytes % 25.6 20.0 - 43.0 % 05/12/2022 4:56 PM [facility] Monocytes % 7.0 5.0 - 13.0 % 05/12/2022 4:56 PM [facility] Eosinophils % 3.1 0.0 - 6.0 % 05/12/2022 4:56 PM [facility] Basophil % 0.7 0.0 - 2.0 % 05/12/2022 4:56 PM [facility] Neutrophils Absolute 5.65 1.60 - 7.00 10? 3 /uL 05/12/2022 4:56 PM [facility] Lymphocyte Absolute 2.29 1.10 - 3.90 10? 3 /uL 05/12/2022 4:56 PM [facility] Monocytes Absolute 0.63 0.26 - 1.07 10? 3 /uL 05/12/2022 4:56 PM [facility] Eosinophils Absolute 0.28 0.00 - 0.47 10? 3 /uL 05/12/2022 4:56 PM [facility] Basophils Absolute 0.06 0.00 - 0.08 10? 3 /uL 05/12/2022 4:56 PM [facility] Immature Granulocytes % 0.6 0.0 - 1.0 % 05/12/2022 4:56 PM [facility] Immature Granulocytes Absolute 0.05 05/12/2022 4:56 PM [facility] Blood BLOOD SPECIMEN / Unknown Lab Venipuncture / Unknown 05/12/2022 4:33 PM PILOT PLANT OPERATOR 05/12/2022 4:48 PM PILOT PLANT OPERATOR Linda Gurrola SANITATION WORKER CLEANING MACHINERY-ESTIMATOR BINDING LAB - HEMAT OLOGY ORDERABLES [facility] [address] [place] [address], [facility] [phone] documented in this encounter Visit Diagnoses Diagnosis NAFLD (nonalcoholic fatty liver disease)- Primary Other chronic nonalcoholic liver disease Hepatic adenoma Benign neoplasm of liver and biliary passages documented in this encounter Care Teams Reading Instructor Relationship Specialty Start Date End Date Jonelle Elam MD [address] [place] [address] [place] [address] PCP - General Family Medicine 10/24/18 Manju Rainey DO [address] [place] [address] Bariatrics 08/11/20 Skylar Canales PA-C [address] [facility] [address] [place] [phone] Physician [facility] Neph[facility] 03/04/22 documented as of this encounter
--- OUTSIDE RECORDS SUMMARY | 2024-04-14 17:44 | XMS_ITS | Encounter Summary ---
Author Organization [facility] Address [address] [facility] [place] [address] Care Team Providers Care Support Specialist Name Role Phone Jonelle Elam MD Primary Care Provider Manju Rainey DO Unavailable [phone] Encounter Details Date Type Department Care Team (Late st Contact Info) Description 02/09/2021 11:59 PM DEFLASH AND WASH OPERATOR Anesthesia Event [facility] [address] [place], [place] [address] Mary Long MD [address] [place], [place] [address] Anesthesia Record Procedure Summary Procedure Name Responsible [...] AM CDT documented as of this encounter Progress Notes * Mary Long MD - 02/09/2021 10:44 AM CST ANESTHESIA PREOPERATIVE EVALUATION NOTE Procedure: LAPAROSCOPIC SLEEVE GASTRECTOMY AND PORCEDURES NECESSARY (Abdomen) Vitals: Patient Vitals for the past 6 hrs: BP Temp Pulse SpO2 02/09/21 1011 134/76 97.7 ??F (36.5 ??C) 63 100 % ANESTHESIA PRE-EVALUATION NOTE History of Present Illness: Morbid obesity Previous Airway Management: ETT Placed: The patient is a current non-smoker. Physical Exam: Orientation X3 Airway/Mallampati Score: II Mouth Opening Distance: 3.5 fingerwidths Neck ROM: full TM Distance: > 3 FB Teeth: normal Heart: normal - S1 S2 Lungs: clear to ausculation bilaterally Abdomen Exam: obese Review of Systems: History of anesthetic complications: No Sleep Apnea Risk: No GERD: No Poor Exercise Tolerance: No Recent Chest Pain: No Shortness of Breath: No AICD/Pacemaker: No Renal Disease: No Diagnostic Tests: Lab(s) reviewed: Yes. ANESTHESIA PLAN ASA Score: 3 NPO Status: Patient instructed to be NPO after midnight Anesthesia Plan: general ETT Planned Induction: intravenous Planned Postop Destination: PACU Anesthetic plan was discussed with: patient Anesthetic Plan discussion was: Consented Use of blood products were discussed with: patient Use of blood product discussion was: Consented The patient's procedural Anesthetic Plan was discussed with the MERCANTILE AGENT. BMI, Height, Weight Tobacco History Estimated body mass index is 57.61 kg/m?? as calculated from the following: Height as of this encounter: 1.575 m (5' 2 ). Weight as of this encounter: 142.9 kg (315 lb). Social History Tobacco Use Smoking Status Never Smoker Smokeless Tobacco Never Used Alcohol History Drug History Social History Substance and Sexual Activity Alcohol Use Not Currently Social History Substance and Sexual Activity Drug Use Never Outpatient Medications: Inpatient Medications: Outpatient Medications Marked as Taking for the 02/09/21 encounter (Hospital Encounter) with [facility] Medication Sig Last Dose ??? ascorbic acid Take 1 (one) tablet by mouth 2 times daily for 90 days ??? escitalopram Take 10 mg by mouth once daily ??? ferrous sulfate Take 1 (one) tablet by mouth once daily for 90 days ??? losartan Take 100 mg by mouth once daily ??? Multiple Vitamin (MULTIVITAMIN PO) Take 1 tablet by mouth once daily ??? pantoprazole EC Take 1 (one) tablet by mouth once daily Reasons: Gastroesophageal Reflux Disease ??? Paragard Intrauterine Copper ParaGard T 380A 380 square mm intrauterine device Take by intrauterine route. ??? topiramate Take 100 mg by mouth once daily ??? vitamin D (cholecalciferol) Take 2,000 Units by mouth once daily ??? vitamin D (ergocalciferol) Take 1 (one) capsule by mouth every 7 days Reasons: Vitamin D Deficiency No current facility-administered medications for this encounter. Allergies: Allergies Allergen Reactions ??? Levofloxacin Urticaria and Itching Chest pain, shortness of breath and pain and weakness in legs ??? Cephalexin Rash ??? Nifedipine Other Facial redness, palpitations ??? Labetalol Shortness of Breath Relevant Problems No relevant active problems Problem List: Patient Active Problem List Diagnosis Date Noted ??? Short interval between pregnancies affecting , antepartum 06/05/2019 Priority: Not Prioritized ??? Maternal morbid obesity, antepartum 06/05/2019 Priority: Not Prioritized ??? Frequent headaches 06/05/2019 Priority: Not Prioritized ??? Diverticulitis Priority: Not Prioritized ??? Sleep apnea Priority: Not Prioritized Has not had a sleep study ??? Cataracts, bilateral 01/02/2019 Priority: Not Prioritized Has artificial lens in left eye ??? NAFLD (nonalcoholic fatty liver disease) 01/02/2019 Priority: Not Prioritized 02/03/20 Fibroscan CAP 400, LSM 22.0 kPa 10/27/20 Fibroscan CAP 400, LSM 63.1 kPa ??? Anxiety 01/02/2019 Priority: Not Prioritized ??? GERD (gastroesophageal reflux disease) 01/02/2019 Priority: Not Prioritized ??? Lumbar herniated disc 2014 Priority: Not Prioritized ??? Chronic hypertension affecting 2011 Priority: Not Prioritized Had mild elevated blood pressure and was asymptomatic at her Hepatology visit April,. History of elevated blood pressure in her previous pregnancies. Baseline labs (06/26/2019, after 20 weeks) BUN 7/creatinine 0.4/ALT 9/AST 11 Twenty-four urine volume 2200 mL: 255 mg protein/24 hr ??? History of delivery 06/05/2019 history of spontaneous delivery in 1st two pregnancies ??? Liver lesion 06/04/2019 Liver lesion/mass noted on previous ultrasound. ??? Supervision of high-risk of young multigravida 06/04/2019 LMP 01/22/19 [approximate] CRL at 13 wk--LUISA 10/31/19 O+ Neg, Imm, RPR-NR, HBSag-NR, HIV-NR, HepC-NR HH 11.6/ 34.2 Plts 283 HgA1C- 5.1 [employer] carrier screen negative Sequential screen started 28 week labs: 08/07/19: GCT: 127 H/H: 10.8/32.3 HIV and RPR NR Medical History: Past Medical History: Diagnosis Date ??? Anxiety ??? Breast disorder history of breast lump-normal ??? Chronic hypertension 2011 ??? Diverticulitis ??? Fatty liver disease, nonalcoholic ??? Lumbar herniated disc 2015 Previously had physicial therapy and injections ??? Migraines ??? Morbid obesity ??? Palpitations Per patient ??? 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 Sleep apnea Has not had a sleep study Surgical History: Past Surgical History: Procedure Laterality Date ??? Cataract Removal Left 2018 artificial lens ??? COLONOSCOPY ??? Tonsillectomy and Adenoidectomy 2002 ??? Tympanostomy 2001, 2002 Covid Vaccine: Lab Results: Recent Labs Component Name 12/02/20 1434 WBC 7.3 RBC 4.82 HCT 38.7 HGB 12.6 PLTCOUNT 196 MCV 80.3* MCH 26.1* MCHC 32.6 MPV 11.2 Recent Labs Component Name 12/02/20 1434 POTASSIUM 4.0 CALCIUM 9.9 CO2 25 GLUCOSE 88 BUN 12 CREATININE 0.63 Recent Labs Component Name 12/02/20 1434 MAGNESIUM 1.9 Recent Labs Component Name 12/02/20 1434 PTT 25.0 PT 13.2 INR 1.0 Recent Labs Component Name 12/02/20 1434 TSH 0.811 No results found for requested labs within last 120 days. Recent Labs Result Component Current Result Alkaline Phosphatase 66 (12/02/2020) ALT 33 (12/02/2020) Anion Gap 16 (12/02/2020) AST 19 (12/02/2020) eGFR by CKD-EPI >90 (12/02/2020) ASH AND WASH OPERATOR documented in this encounter Plan of [...] on filedocumented in this encounter Care Teams Support Specialist Relationship Specialty Start Date End Date Jonelle Elam MD [address] [place] [address] [place] [phone] PCP - General Family Medicine 10/24/18 Manju Rainey DO [address] [place] [address] Bariatrics 08/11/20 documented as of this encounter
--- OUTSIDE RECORDS SUMMARY | 2024-04-14 17:44 | XMS_ITS | Encounter Summary ---
Author Organization [facility] Address [address] [place] [address] Care Team Providers Care Delivery Truck Driver Name Role Phone Jonelle Elam MD Primary Care Provider [phone] Manju Rainey DO Unavailable [phone] Reason for Visit * Reason Onset Date Comments Medication Prior Auth Request 12/31/2021 Encounter Details Date Type Department Care Team (Late st Contact Info) Description 12/31/2021 Telephone [facility] [address] [facility], [place] [phone] Jeff Bird APRN-JOSETTE [address] [place] [address] [place] [id number] Medication Prior Auth Request Social History Tobacco [...] Telephone Encounter - Margy Sharma RN - 01/03/2022 9:05 AM CDT PA for Aimovig denied due to the following: Your notes must show that your are not taking wiith other similar drugs (Prescriber attests taht requested product is not prescribed concurrently with another prophylactic CGRP) Patient is on Nurtec. Will forward to TRUCK DRIVER'S OFFSIDER Settu for her review. * Telephone Encounter - Margy Sharma RN - 12/31/2021 10:54 AM CDT ePA initiated with [facility] for Aimovig. Included last visit note dated 12/28/2021. Will await aresponse. documented in this encounter Plan of Treatment [...] on filedocumented in this encounter Care Teams Delivery Truck Driver Relationship Specialty Start Date End Date Jonelle Elam MD [address] [place] [address] [place] [address] PCP - General Family Medicine 10/24/18 Manju Rainey DO [address] [place] [address] Bariatrics 08/11/20 documented as of this encounter
--- OUTSIDE RECORDS SUMMARY | 2024-04-14 17:44 | XMS_ITS | Encounter Summary ---
Author Organization [facility] Address [address] [place] [address] Care Team Providers Care Show Operations Supervisor Name Role Phone Jonelle Elam MD Primary Care Provider Manju Rainey DO Unavailable [phone] Encounter Details Date Type Department Care Team (Late st Contact Info) Description 02/14/2021 10:59 AM SECURITY GUARD SUPERVISOR - 02/14/2021 11:59 PM [facility] Hospital Encounter [facility] - Lab [address] [place] [address] Carmen Lee, PLANTING MATERIAL CARRIER-SAND MIXER MACHINE [address] [place] [address] Discharge Disposition: Home or Self Care Social [...] COVID-19? No / Unsure 02/14/2021 10:58 AM SECURITY GUARD SUPERVISOR documented as of this encounter Medications at [...] Take by intrauterine route. 11/03/2021 Probiotic Product ([employer]) capsule Take 1 (one) capsule by mouth [...] 11/03/2021 vitamin D, ergocalciferol, (DRISDOL) 1.25 MG (39858 UT) capsuleIndications:Vi tamin D Deficiency Take 1 [...] Procedure Name Priority Date/Time Associated Diagnosis Comments SARS-COV-2 (COVID-19) PANEL (SOIL) Routine 02/14/2021 11:00 AM SECURITY GUARD SUPERVISOR Pre-operative laboratory examination SARS-COV-2 (COVID-19) IN HOUSE Routine 02/14/2021 11:00 AM SECURITY GUARD SUPERVISOR Pre-operative laboratory examination documented in this encounter Results * SARS-COV-2 (COVID-19) INTERNAL (02/14/2021 11:00 AM SECURITY GUARD SUPERVISOR) COVID-19 PCR Not detected Not detected 02/15/2021 11:22 AM SECURITY GUARD SUPERVISOR [facility] Microbiology SPECIMEN FROM NASOPHARYNGEAL STRUCTURE / Unknown Collection / Unknown 02/14/2021 11:00 AM SECURITY GUARD SUPERVISOR 02/14/2021 11:00 AM SECURITY GUARD SUPERVISOR Narrative [facility] - 02/15/2021 11:22 AM SECURITY GUARD SUPERVISOR This nucleic acid amplification assay performance was validated by [facility]. This test has been [...] assay are available upon request. Carmen Lee PLANTING MATERIAL CARRIER-SAND MIXER MACHINE LAB - MICROBIOLO GY ORDERABLES [facility] [address] [place] [address], [facility] [phone] documented in this encounter Visit Diagnoses Diagnosis Pre-operative laboratory examination Pre-procedural laboratory examination documented in this encounter Care Teams Show Operations Supervisor Relationship Specialty Start Date End Date Jonelle Elam MD [address] [place] [address] [place] [phone] PCP - General Family Medicine 10/24/18 Manju Rainey DO [address] [place] [address] Bariatrics 08/11/20 documented as of this encounter
--- OUTSIDE RECORDS SUMMARY | 2024-04-14 17:44 | XMS_ITS | Encounter Summary ---
Author Organization [facility] Address [address] [place] [address] Care Team Providers Care Client Technical Support Associate Name Role Phone Jonelle Elam MD Primary Care Provider Manju Rainey DO Unavailable [phone] Skylar Canales PA-C Unavailable [phone] Encounter Details Date Type Department Care Team (Latest Contact Info) Description 03/04/2022 10:29 AM SPACE TECHNOLOGIST - 03/04/2022 11:59 PM [facility] Hospital Encounter [facility] OP DRAW STATION [address] [place] [phone] Discharge Disposition: Home or Self Care Social [...] spit after use. 60 Each 3 01/21/2022 Iron, Ferrous Sulfate, 325 (65 Fe) MG TABS Take by mouth once daily losartan (Cozaar) 100 MG tablet Take 1 (one) tablet by mouth once daily 02/21/2022 omeprazole (PriLOSEC) 20 MG capsule Take 1 (one) capsule by mouth once daily as needed 12/17/2021 PARAGARD INTRAUTERINE COPPER IU vitamin D, cholecalciferol, 50 MCG (2000 UT) tablet Take 1 (one) tablet by mouth once daily erenumab-aooe (Aimovig) 70 MG/ML auto injector penIndications:Intra ctable migraine with aura with status migrainosus Inject 1 mL subcutaneously every 30 days 1 mL 11 12/31/2021 08/19/2022 escitalopram (LEXAPRO) 10 MG tablet Take 10 mg by mouth once daily 10/30/2020 04/22/2022 gabapentin (NEURONTIN) 100 MG capsuleIndications:O SA (obstructive sleep apnea),Intractable migraine with aura with status migrainosus Take 1 (one) capsule by mouth 3 times daily 270 capsule 3 08/27/2021 04/27/2022 rimegepant (NURTEC) 75 MG tabletIndications:In tractable migraine with aura with status migrainosus Take 75 mg by mouth once daily as needed for Migraine 8 tablet 11 08/27/2021 04/27/2022 zonisamide (Zonegran) 25 MG capsuleIndications:I ntractable migraine [...] Procedure Name Priority Date/Time Associated Diagnosis Comments URINE MICROSCOPIC ONLY REFLEX TO CULTURE Routine 03/04/2022 10:41 AM SPACE TECHNOLOGIST Secondary hypertension PTH INTACT W/O CALCIUM Routine 03/04/2022 10:41 AM SPACE TECHNOLOGIST Secondary hypertension URINALYSIS REFLEX MICROSCOPIC REFLEX CULTURE Routine 03/04/2022 10:41 AM SPACE TECHNOLOGIST Secondary hypertension TSH REFLEX FREE T4 Routine 03/04/2022 10 :41 AM SPACE TECHNOLOGIST Secondary hypertension URIC ACID BLOOD Routine 03/04/2022 10:41 AM SPACE TECHNOLOGIST Secondary hypertension MICROALB/CREAT RATIO URINE RANDOM PANEL Routine 03/04/2022 10:41 AM SPACE TECHNOLOGIST Secondary hypertension RENIN ACTIVITY Routine 03/04/2022 10:41 AM SPACE TECHNOLOGIST Secondary hypertension HEMOGLOBIN A1C Routine 03/04/2022 10:41 AM SPACE TECHNOLOGIST Secondary hypertension VITAMIN D 25-HYDROXY Routine 03/04/2022 10:41 AM SPACE TECHNOLOGIST Secondary hypertension ALDOSTERONE BLOOD Routine 03/04/2022 10: 41 AM SPACE TECHNOLOGIST Secondary hypertension CBC W AUTO DIFFERENTIAL Routine 03/04/2022 10:41 AM SPACE TECHNOLOGIST Secondary hypertension RENAL FUNCTION PANEL Routine 03/04/2022 10:41 AM SPACE TECHNOLOGIST Secondary hypertension PROTEIN CREATININE RATIO URINE RANDOM PNL Routine 03/04/2022 10:41 AM SPACE TECHNOLOGIST Secondary hypertension MAGNESIUM BLOOD Routine 03/04/2022 10:41 AM SPACE TECHNOLOGIST Secondary hypertension documented in this encounter Results * URINE MICROSCOPIC ONLY REFLEX TO CULTURE (03/04/2022 10:41 AM SPACE TECHNOLOGIST) Reflex Status Culture not indicated 03/04/2022 12:04 PM [facility] RBC UA 0-2 None Seen, 0-2, 3-5 /HPF 03/04/2022 12:04 PM [facility] WBC UA 0-5 None Seen, 0-5 /HPF 03/04/2022 12:04 PM [facility] Squamous Epithelial Cells UA 0-2 None Seen, 0-2, 3-5 /HPF 03/04/2022 12:04 PM [facility] Mucus UA 1+ /LPF 03/04/2022 12:04 PM [facility] Urine URINE SPECIMEN OBTAINED BY CLEAN CATCH PROCEDURE / Unknown Collection / Unknown 03/04/2022 10:41 AM SPACE TECHNOLOGIST 03/04/2022 11:17 AM [facility] - 03/04/2022 12:04 PM SPACE TECHNOLOGIST Skylar Canales PA-C LAB - URINALYSIS O RDERABLES [facility] [address] [place] [address], [facility] [phone] * (ABNORMAL) RENAL FUNCTION PANEL (03/04/2022 10:41 AM SPACE TECHNOLOGIST) BUN 9 7 - 26 mg/dL 03/04/2022 11:54 AM [facility] Creatinine 0.55(L) 0.56 - 0.96 mg/dL 03/04/2022 11:54 AM [facility] Sodium 138 136 - 145 mmol/L 03/04/2022 11:54 AM [facility] Potassium 3.8 3.5 - 4.5 mmol/L 03/04/2022 11:54 AM [facility] Chloride 102 98 - 107 mmol/L 03/04/2022 11:54 AM [facility] CO2 25 22 - 29 mmol/L 03/04/2022 11:54 AM [facility] Glucose 97 70 - 115 mg/dL 03/04/2022 11:54 AM [facility] Albumin 4.2 3.4 - 5.0 g/dL 03/04/2022 11:54 AM [facility] Calcium 9.9 8.4 - 10.2 mg/dL 03/04/2022 11:54 AM [facility] Phosphorus 3.7 2.9 - 5.1 mg/dL 03/04/2022 11:54 AM [facility] Anion Gap 15 8 - 18 03/04/2022 11:54 AM [facility] BUN/Creatinine Ratio 16 7 - 23 03/04/2022 11:54 AM [facility] Osmolality Calculated 285 270 - 300 mOsm/kg 03/04/2022 11:54 AM [facility] eGFR by CKD-EPI >90 >=90 mL/min/1.7 3 m2 03/04/2022 11:54 AM [facility] Blood BLOOD SPECIMEN / Unknown Lab Venipuncture / Unknown 03/04/2022 10:41 AM SPACE TECHNOLOGIST 03/04/2022 11:23 AM SPACE TECHNOLOGIST Skylar Canales PA-C LAB - CHEMISTRY OR DERABLES [address] [address], [facility] [phone] * (ABNORMAL) URIC ACID BLOOD (03/04/2022 10:41 AM SPACE TECHNOLOGIST) Uric Acid 6.6(H) 2.6 - 6.0 mg/dL 03/04/2022 11:54 AM [facility] Blood BLOOD SPECIMEN / Unknown Lab Venipuncture / Unknown 03/04/2022 10:41 AM SPACE TECHNOLOGIST 03/04/2022 11:23 AM SPACE TECHNOLOGIST Skylar Canales PA-C LAB - CHEMISTRY OR DERABLES [address] [address], [place] [phone] * MAGNESIUM BLOOD (03/04/2022 10:41 AM SPACE TECHNOLOGIST) Pathologist [facility] Magnesium 2.0 1.6 - 2.6 mg/dL 03/04/2022 11:54 AM [facility] Blood BLOOD SPECIMEN / Unknown Lab Venipuncture / Unknown 03/04/2022 10:41 AM SPACE TECHNOLOGIST 03/04/2022 11:23 AM SPACE TECHNOLOGIST Skylar Canales PA-C LAB - CHEMISTRY OR DERABLES [facility] [address] [place] [address], [facility] [phone] * (ABNORMAL) CBC WITH DIFFERENTIAL (03/04/2022 10:41 AM SPACE TECHNOLOGIST) Pathologist [facility] WBC 6.9 3.5 - 10.5 10? 3 /uL 03/04/2022 11:26 AM [facility] RBC 4.93 3.80 - 5.20 10? 6 /uL 03/04/2022 11:26 AM [facility] Hemoglobin 13.1 12.0 - 15.6 g/dL 03/04/2022 11:26 AM [facility] Hematocrit 40.0 35.0 - 45.0 % 03/04/2022 11:26 AM [facility] MCV 81.1 80.7 - 98.3 fL 03/04/2022 11:26 AM [facility] MCH 26.6(L) 26.7 - 34.0 pg 03/04/2022 11:26 AM [facility] MCHC 32.8 30.8 - 35.9 g/dL 03/04/2022 11:26 AM [facility] RDW-SD 38.6 36.0 - 50.0 fL 03/04/2022 11:26 AM [facility] RDW-CV 13.3 11.2 - 14.8 % 03/04/2022 11:26 AM [facility] Platelet Count 341 150 - 400 10? 3 /uL 03/04/2022 11:26 AM [facility] MPV 9.3(L) 9.4 - 12.9 fL 03/04/2022 11:26 AM [facility] nRBC Absolute 0.00 0 10? 3 /uL 03/04/2022 11:26 AM [facility] nRBC Auto 0.0 0 /100 WBC 03/04/2022 11:26 AM [facility] Neutrophils % 63.6 35.0 - 70.0 % 03/04/2022 11:26 AM [facility] Lymphocytes % 27.6 20.0 - 43.0 % 03/04/2022 11:26 AM [facility] Monocytes % 5.4 5.0 - 13.0 % 03/04/2022 11:26 AM [facility] Eosinophils % 1.9 0.0 - 6.0 % 03/04/2022 11:26 AM [facility] Basophil % 0.9 0.0 - 2.0 % 03/04/2022 11:26 AM [facility] Neutrophils Absolute 4.38 1.60 - 7.00 10? 3 /uL 03/04/2022 11:26 AM [facility] Lymphocyte Absolute 1.90 1.10 - 3.90 10? 3 /uL 03/04/2022 11:26 AM [facility] Monocytes Absolute 0.37 0.26 - 1.07 10? 3 /uL 03/04/2022 11:26 AM [facility] Eosinophils Absolute 0.13 0.00 - 0.47 10? 3 /uL 03/04/2022 11:26 AM [facility] Basophils Absolute 0.06 0.00 - 0.08 10? 3 /uL 03/04/2022 11:26 AM [facility] Immature Granulocytes % 0.6 0.0 - 1.0 % 03/04/2022 11:26 AM [facility] Immature Granulocytes Absolute 0.04 03/04/2022 11:26 AM [facility] Blood BLOOD SPECIMEN / Unknown Lab Venipuncture / Unknown 03/04/2022 10:41 AM SPACE TECHNOLOGIST 03/04/2022 11:23 AM [facility] Skylar Canales PA-C LAB - HEMATOLOGY O RDERABLES Performing Organization Address City/State/[facility] Co de Phone Number [facility] [address] [place] [address] [phone] * RENIN ACTIVITY (03/04/2022 10:41 AM SPACE TECHNOLOGIST) [facility] Renin 4.3 ng/mL/hr 03/08/2022 9:29 AM SPACE TECHNOLOGIST [employer] ([facility]) Comment: INTERPRETIVE INFORMATION: Renin Activity Adult, [...] developed and its performance characteristics determined by [facility]. It has not been cleared or approved by the US Food and Drug Administration. This test was performed in a CLIA certified laboratory and is intended for clinical purposes. Performed By: [facility] [employer] [address] [place] [address] Filling Hauler Weaving: Paul Werner MD, PhD Blood BLOOD SPECIMEN / Unknown Lab Venipuncture / Unknown 03/04/2022 10:41 AM SPACE TECHNOLOGIST 03/04/2022 11:17 AM SPACE TECHNOLOGIST Skylar Canales PA-C LAB - CHEMISTRY OR DERABLES [facility] [email or web address] ([facility]) [address] [place] [address], [facility] * ALDOSTERONE BLOOD (03/04/2022 10:41 AM SPACE TECHNOLOGIST) Aldosterone 10.4 ng/dL 03/06/2022 9:37 PM SPACE TECHNOLOGIST [facility] ([facility]) Comment: INTERPRETIVE INFORMATION: Aldosterone, Serum Reference [...] reference intervals for this test in the [employer] [facility] Test Directory (LeadiD). Performed By: [facility] [address] [place] [address] Filling Hauler Weaving: Paul Werner MD, PhD Blood BLOOD SPECIMEN / Unknown Lab Venipuncture / Unknown 03/04/2022 10:41 AM SPACE TECHNOLOGIST 03/04/2022 11:17 AM SPACE TECHNOLOGIST Skylar Canales PA-C LAB - CHEMISTRY OR DERABLES [facility] ([facility]) [place] [address], [facility] * (ABNORMAL) HEMOGLOBIN A1C [IN-HOUSE TEST] (03/04/2022 10:41 AM SPACE TECHNOLOGIST) Hemoglobin A1c 5.9(H) <=5.6 % 03/05/2022 10:53 AM [facility] Estimated Average Glucose 123 mg/dL 03/05/2022 10:53 AM [facility] Comment: HbA1c Interpretation: Normal : < 5.7% Pre-diabetes: 5.7-6.4% Diabetes: Equal to or greater than 6.5% Test results diagnostic of diabetes should be repeated for confirmation. Treatment target values recommended by ADA and other clinical organizations should be used to evaluate metabolic control in patients. Reference: [place] [employer], Standards of Care in Diabetes -2020 In patients 70 years and older consider HbA1c target range of 7.0-7.5% (Reference: Diaz A, et al. JAMDA. 2012) The Sebia assay for the measurement of HbA1c is a National Glycohemoglobin Standardization Program (NGSP) certified method. HbA1c Interpretation: Normal : < 5.7% Pre-diabetes: 5.7-6.4% Diabetes: Equal to or greater than 6.5% Test results diagnostic of diabetes should be repeated for confirmation. Treatment target values recommended by ADA and other clinical organizations should be used to evaluate metabolic control in patients. Reference: [place] [employer], Standards of Care in Diabetes -2020 In patients 70 years and older consider HbA1c target range of 7.0-7.5% (Reference: Diaz A, et al. JAMDA. 2012) The Sebia assay for the measurement of HbA1c is a National Glycohemoglobin Standardization Program (NGSP) certified method. Blood BLOOD SPECIMEN WITH EDTA / Unknown Lab Venipuncture / Unknown 03/04/2022 10:41 AM SPACE TECHNOLOGIST 03/04/2022 11:23 AM SPACE TECHNOLOGIST Skylar Canales PA-C LAB - CHEMISTRY OR DERABLES Performing Organization Address [facility]/ZIP Co de Phone Number [facility] [address] [place] [address], [facility] [phone] * PTH INTACT ([facility]) (03/04/2022 10:41 AM SPACE TECHNOLOGIST) Pathologist [facility] PTH Intact 70.5 8.0 - 77.0 pg/mL 03/04/2022 11:55 AM SPACE TECHNOLOGIST [facility] Blood BLOOD SPECIMEN / Unknown Lab Venipuncture / Unknown 03/04/2022 10:41 AM SPACE TECHNOLOGIST 03/04/2022 11:23 AM SPACE TECHNOLOGIST Skylar Canales PA-C LAB - CHEMISTRY OR DERABLES Performing Organization Address [facility] Co de Phone Number [facility] [address] [place] [address], [facility] [phone] * (ABNORMAL) VITAMIN D 25-HYDROXY (03/04/2022 10:41 AM SPACE TECHNOLOGIST) Pathologist [facility] Vitamin D, 25 Hydroxy 15.0(L) 30.0 - 80.0 ng/mL 03/04/2022 12:12 PM SPACE TECHNOLOGIST [facility] Comment: The recommendations for 25-Hydroxy Vitamin D [...] Lab Venipuncture / Unknown 03/04/2022 10:41 AM SPACE TECHNOLOGIST 03/04/2022 11:23 AM SPACE TECHNOLOGIST Skylar Canales PA-C LAB - CHEMISTRY OR DERABLES Performing Organization Address [facility]/ZIP Co de Phone Number [address] [address], [facility] [phone] * TSH REFLEX FREE T4 (03/04/2022 10:41 AM SPACE TECHNOLOGIST) TSH 0.926 0.350 - 4.940 uIU/mL 03/04/2022 12:12 PM [facility] Blood BLOOD SPECIMEN / Unknown Lab Venipuncture / Unknown 03/04/2022 10:41 AM SPACE TECHNOLOGIST 03/04/2022 11:23 AM SPACE TECHNOLOGIST Skylar Canales PA-C LAB - CHEMISTRY OR DERABLES Performing Organization Address [facility]/ZIP Co de Phone Number [address] [address], [facility] [phone] * (ABNORMAL) URINALYSIS REFLEX MICROSCOPIC REFLEX CULTURE (03/04/2022 10:41 AM SPACE TECHNOLOGIST) Color UA Yellow Straw, Yellow 03/04/2022 12:04 PM [facility] Clarity UA Clear Clear 03/04/2022 12:04 PM [facility] Specific Sabine UA 1.025 1.005 - 1.030 03/04/2022 12:04 PM [facility] pH UA 5.5 5.0 - 8.0 pH 03/04/2022 12:04 PM [facility] Protein UA Negative Negative 03/04/2022 12:04 PM [facility] Glucose UA Negative Negative 03/04/2022 12:04 PM [facility] Ketone UA Negative Negative 03/04/2022 12:04 PM [facility] Bilirubin UA Negative Negative 03/04/2022 12:04 PM [facility] Blood UA Trace(A) Negative 03/04/2022 12:04 PM [facility] Nitrite UA Negative Negative 03/04/2022 12:04 PM [facility] Leukocyte Esterase Negative Negative 03/04/2022 12:04 PM [facility] Urobilinogen UA Negative Negative mg/dL 03/04/2022 12:04 PM [facility] Urine URINE SPECIMEN OBTAINED BY CLEAN CATCH PROCEDURE / Unknown Collection / Unknown 03/04/2022 10:41 AM SPACE TECHNOLOGIST 03/04/2022 11:17 AM SPACE TECHNOLOGIST Skylar Canales PA-C LAB - URINALYSIS O RDERABLES Performing Organization Address [facility]/ZIP Co de Phone Number [address] [address], [facility] [phone] * (ABNORMAL) PROTEIN CREATININE RATIO URINE RANDOM PNL (03/04/2022 10:41 AM SPACE TECHNOLOGIST) Protein Urine 18 Not Established mg/dL 03/04/2022 11:35 AM [facility] Creatinine Urine 94 Not Established mg/dL 03/04/2022 11:35 AM [facility] Protein/Creati nine Ratio Urine 0.19(H) <0.10 03/04/2022 11:35 AM [facility] Urine URINE SPECIMEN OBTAINED BY CLEAN CATCH PROCEDURE / Unknown Collection / Unknown 03/04/2022 10:41 AM SPACE TECHNOLOGIST 03/04/2022 11:17 AM SPACE TECHNOLOGIST Skylar Canales PA-C LAB - URINE CHEMIS TRY ORDERABLES [address] [address], [place] [phone] * (ABNORMAL) MICROALB/CREAT RATIO URINE RANDOM PANEL (03/04/2022 10:41 AM SPACE TECHNOLOGIST) Albumin Random Urine 104.6 Not Established ug/mL 03/04/2022 11:35 AM [facility] Creatinine Urine 94 Not Established mg/dL 03/04/2022 11:35 AM [facility] Urine Albumin/Creati nine Ratio 111(H) <30 mg/g 03/04/2022 11:35 AM [facility] Urine URINE SPECIMEN OBTAINED BY CLEAN CATCH PROCEDURE / Unknown Collection / Unknown 03/04/2022 10:41 AM SPACE TECHNOLOGIST 03/04/2022 11:17 AM SPACE TECHNOLOGIST Skylar Canales PA-C LAB - URINE CHEMIS TRY ORDERABLES [facility] [address] [place] [address], [facility] [phone] documented in this encounter Visit Diagnoses Diagnosis Secondary hypertension- Primary documented in this encounter Care Teams Client Technical Support Associate Relationship Specialty Start Date End Date Jonelle Elam MD [address] [place] [address] PCP - General Family Medicine 10/24/18 Manju Rainey DO [address] [place] [address] Bariatrics 08/11/20 Skylar Canales PA-C [address] [place] [address] [address] [place] [address] Physician Associate Director Nephrology 03/04/22 documented as of this encounter
--- OUTSIDE RECORDS SUMMARY | 2024-04-14 17:44 | XMS_ITS | Encounter Summary ---
Author Organization [facility] Address [address] [place] [address] Care Team Providers Care Forming Department End Finder Name Role Phone Jonelle Elam MD Primary Care Provider [phone] Manju Rainey DO Unavailable [phone] Reason for Visit * Reason Onset Date Comments Follow-up 01/03/2022 Encounter Details Date Type Department Care Team (Late st Contact Info) Description 01/03/2022 Telephone [facility] [address] [facility], [place] [phone] Jeff Bird APRN-JOSETTE [address] [place] [address] [place] [phone] Follow-up Social History Tobacco Use Types Packs/Day [...] encounter Miscellaneous Notes * Telephone Encounter - Pelon PARAS Aguilar - 01/03/2022 1:32 PM CDT Called the patient Reports daily headaches; however BP elevated and she is on Losartan 100 mg Recommendations To keep a log of BP and get PCP inputs to add A second agent for BP control; she is allergic to several BP medications, may benefit with Propranolol or Metoprolol , this would in turn reduce the Headache triggers and headaches To see Weight loss clinic and sleep medicine as discussed before To revert to us with changes She v/u documented in this encounter Plan of Treatment Not on file documented as of this encounter Goals Goal Patient Goal Type Associated Problems Recent Progress Patient-Stated? Author Medication Management General On track( 023 9:23 AM CDT) No Gabriella Moon RN Note: Expected end date: ongoing Interventions: Take all medications as prescribed Safety General On track( 021 11:18 AM CDT) No Gabriella Moon, BOBBY Note: Expected end date: ongoing Interventions: Your nurse will assess your risk for falls/injury each visit documented as of this encounter Visit Diagnoses Not on filedocumented in this encounter Care Teams Forming Department End Finder Relationship Specialty Start Date End Date Jonelle Elam MD [address] [place] [address] [place] [id number] PCP - General Family Medicine 10/24/18 Manju Rainey DO [address] [place] [address] Bariatrics 08/11/20 documented as of this encounter
--- OUTSIDE RECORDS SUMMARY | 2024-04-14 17:44 | XMS_ITS | Encounter Summary ---
Author Organization [facility] Address [address] [facility] [place] [address] Care Team Providers Care Saw Feeder Name Role Phone Jonelle Elam MD Primary Care Provider [phone] Manju Rainey DO Unavailable [phone] Encounter Details Date Type Department Care Team (Late st Contact Info) Description 02/08/2021 Orders Only [facility] [address] [place] [phone] Carmen Lee, SCRUMMASTER-BEHAVIORAL HEALTH DIRECTOR [address] [place] [address] Pre-operative laboratory examination Social History Tobacco Use Types Packs/Day Years [...] as of this encounter Visit Diagnoses Diagnosis Pre-operative laboratory examination- Primary Pre-procedural laboratory examination documented in this encounter Care Teams Saw Feeder Relationship Specialty Start Date End Date Jonelle Elam MD [address] [place] [address] PCP - General Family Medicine 10/24/18 Manju Rainey DO [address] [place] [address] Bariatrics 08/11/20 documented as of this encounter
--- OUTSIDE RECORDS SUMMARY | 2024-04-14 17:44 | XMS_ITS | Encounter Summary ---
Author Organization [facility] Address [address] [place] [address] Care Team Providers Care Speaker Mounter Name Role Phone Jonelle Elam MD Primary Care Provider [phone] Manju Rainey DO Unavailable [phone] Reason for Referral * Radiology Services (Routine) - Closed Specialty Diagnoses / Procedures Referred By Ritika bonner Referred To Contact MRI Diagnoses Liver lesion Focal nodular hyperplasia of liver NAFLD (nonalcoholic fatty liver disease) Morbid obesity (HCC) Procedures MRI ABDOMEN WWO CONTRAST MRI ABDOMEN WWO CONTRAST Maribel Kitchen MD [address] [place] [address] [facility] [address] [place] [address] Referral ID Status Reason Start Date Expiration Date Visits Re quested Visits Authorized [id number] Closed 04/15/2021 07/13/2021 1 1 HEAD DISTRIBUTION ENGINEER Reason for Visit * Radiology Services (Routine) - Closed Specialty Diagnoses / Procedures Referred By Ritika bonner Referred To Contact MRI Diagnoses Liver lesion Focal nodular hyperplasia of liver NAFLD (nonalcoholic fatty liver disease) Morbid obesity (HCC) Procedures MRI ABDOMEN WWO CONTRAST MRI ABDOMEN WWO CONTRAST Maribel Kitchen MD [address] [place] [address] [facility] Mri [address] [place] [address] Referral ID Status Reason Start Date Expiration Date Visits Re quested Visits Authorized [id number] Closed 04/15/2021 07/13/2021 1 1 Encounter Details Date Type Department Care Team (Late st Contact Info) Description 04/27/2021 10:30 AM OVERHEAD DISTRIBUTION ENGINEER - 04/27/2021 11:59 PM OVERHEAD DISTRIBUTION ENGINEER Hospital Encounter [facility] MRI [address] [place] [address] Maribel Kitchen MD [address] [place] [address] Discharge Disposition: Home or Self [...] Coronavirus / COVID-19? Yes 04/27/2021 10:37 AM OVERHEAD DISTRIBUTION ENGINEER documented as of this encounter Medications at Time of Discharge Medication Sig Dispensed Refills Start Date End Date vitamin D, cholecalciferol, 50 MCG (1999) tablet Take 1 (one) tablet by mouth once daily amoxicillin (AMOXIL) 500 MG capsule every 12 hours 07/01/2021 escitalopram (LEXAPRO) 10 MG tablet Take 10 mg by mouth once daily 10/30/2020 04/22/2022 losartan (COZAAR) 100 MG tablet Take 100 [...] Take by intrauterine route. 11/03/2021 Probiotic Product (SPIRIT Navigation) capsule Take 1 (one) capsule by mouth once daily 30 capsule 02/17/2021 07/01/2021 topiramate (TOPAMAX) 100 MG tablet Take 100 mg by mouth 2 times daily 11/03/2021 vitamin D, ergocalciferol, (DRISDOL) 1.25 MG (49680 UT) capsuleIndications:Vi tamin D Deficiency Take 1 [...] Diagnosis Comments MRI ABDOMEN WWO CONTRAST Routine 04/27/2021 11:43 AM OVERHEAD DISTRIBUTION ENGINEER Liver lesion Focal nodular hyperplasia of liver NAFLD (nonalcoholic fatty liver disease) Morbid obesity (HCC) CREATININE - POCT INTERFACED Routine 04/27/2021 11:02 AM OVERHEAD DISTRIBUTION ENGINEER documented in this encounter Results * MRI ABDOMEN WWO CONTRAST (04/27/2021 11:43 AM OVERHEAD DISTRIBUTION ENGINEER) Anatomical Region Laterality Modality Abdomen Magnetic Resonan ce 04/27/2021 1:19 PM OVERHEAD DISTRIBUTION ENGINEER Impressions 04/27/2021 3:19 PM OVERHEAD DISTRIBUTION ENGINEER Impression: 1.Three observations in the right hepatic lobe demonstrate imaging characteristics consistent with focal nodular hyperplasia. The largest of these in hepatic segment 7 measures 4.4 cm, grossly similar in size since prior examination. 2.An indeterminate observation is seen in hepatic segment 8, favored to represent a hepatic adenoma. Continued short-term follow-up MRI with Eovist is recommended in 6 months. 3.No new arterially enhancing lesions. 4.Hepatomegaly with severe diffuse hepatic steatosis. 5.Sludge vs. small gallstones in the gallbladder. Report dictated by Karrie Hall MD (radiology director). I, Dr. KENNY COVARRUBIAS M.D. have personally reviewed and interpreted this examination/study. This report was electronically signed by KENNY COVARRUBIAS M.D. ??on 04/27/2021 3:19 PM . Narrative 04/27/2021 3:19 PM OVERHEAD DISTRIBUTION ENGINEER Procedure Information: DATE: 04/27/2021 11:43 AM EXAMINATION: Magnetic resonance imaging (MRI) of the abdomen without and with contrast TECHNIQUE: MRI of the abdomen was performed prior to and following the uneventful administration of 10 mL of Eovist intravenous gadolinium contrast according to standard protocol. Clinical Information: HISTORY: K76.9: Liver lesion K76.89: Focal nodular hyperplasia of liver K76.0: NAFLD (nonalcoholic fatty liver disease) E66.01: Morbid obesity 25-year-old female with history of nonalcoholic fatty liver disease (NAFLD), found on outside imaging to have multiple indeterminate hepatic lesions. Repeat MRI dated 02/14/2019 demonstrated to observations in hepatic segment 7 and 8 consistent with focal nodular hyperplasia (FNH). Subsequent MRI dated 04/17/2020 demonstrates additional indeterminate hepatic observations in segments 7 and 8, favored to represent FNH. COMPARISON: MRI abdomen dated 04/17/2020 Findings: Lower Chest: Normal. Hepatobiliary system Liver morphology: No liver surface nodularity is seen to suggest hepatic cirrhosis. Hepatomegaly. Steatosis: There is severe diffuse hepatic steatosis. Varices: None. Spleen: Normal. Ascites: None. Focal liver observations A 4.4 x 3.9 cm arterially enhancing observation is seen in hepatic segment 7 (series 8, image 36), which remains hyperintense to hepatic parenchyma on hepatobiliary phase images with subtle central stellate hypodensity (series 24, image 35), consistent with focal nodular hyperplasia. A second 1.3 x 1.3 cm subtly arterially enhancing observation is also seen in hepatic segment 8 (series 8, image 40), which is hypointense to hepatic parenchyma on hepatobiliary phase images (series 24, image 40), which does not meet criteria for focal nodular hyperplasia. Inferior and medial to this, there is a 1.4 x 1.4 cm arterially enhancing observation in hepatic segment 5/8 (series 8, image 54), which remains hyperintense to hepatic parenchyma on hepatobiliary phase images (series 24, image 54), consistent with focal nodular hyperplasia. A small 1.3 x 1.6 cm arterially enhancing observation is present in hepatic segment 6/7 (series 8, image 55), which remains isointense to hepatic parenchyma on hepatobiliary phase images (series 24, image 55), consistent with focal nodular hyperplasia. Focal fatty infiltration is seen along the falciform ligament, unchanged. Hepatic vasculature Portal and hepatic veins: Normal and patent. Arterial anatomy: Conventional. Gallbladder and bile ducts Gallbladder: Filling defects in the dependent portion of the gallbladder are consistent with sludge vs. small gallstones. No wall thickening or pericholecystic fluid. Bile ducts: Nondilated. Retroperitoneum Pancreas: Normal. Adrenals: Normal. Kidneys: Subcentimeter simple renal cysts the midportion of the right kidney. Lymph nodes: No lymphadenopathy. Gastrointestinal: Imaged bowel and mesentery are normal. Procedure Note Kenny Covarrubias MD - 04/27/2021 Procedure Information: DATE: 04/27/2021 11:43 AM EXAMINATION: Magnetic resonance imaging (MRI) of the abdomen without and with contrast TECHNIQUE: MRI of the abdomen was performed prior to and following the uneventful administration of 10 mL of Eovist intravenous gadolinium contrast according to standard protocol. Clinical Information: HISTORY: K76.9: Liver lesion K76.89: Focal nodular hyperplasia of liver K76.0: NAFLD (nonalcoholic fatty liver disease) E66.01: Morbid obesity 25-year-old female with history of nonalcoholic fatty liver disease (NAFLD), found on outside imaging to have multiple indeterminate hepatic lesions. Repeat MRI dated 02/14/2019 demonstrated to observations in hepatic segment 7 and 8 consistent with focal nodular hyperplasia (FNH). Subsequent MRI dated 04/17/2020 demonstrates additional indeterminate hepatic observations in segments 7 and 8, favored to represent FNH. COMPARISON: MRI abdomen dated 04/17/2020 Findings: Lower Chest: Normal. Hepatobiliary system Liver morphology: No liver surface nodularity is seen to suggest hepatic cirrhosis. Hepatomegaly. Steatosis: There is severe diffuse hepatic steatosis. Varices: None. Spleen: Normal. Ascites: None. Focal liver observations A 4.4 x 3.9 cm arterially enhancing observation is seen in hepaticsegment 7 (series 8, image 36), which remains hyperintense to hepatic parenchyma on hepatobiliary phase images with subtle central stellate hypodensity (series 24, image 35), consistent with focal nodular hyperplasia. A second 1.3 x 1.3 cm subtly arterially enhancing observation is alsoseen in hepatic segment 8 (series 8, image 40), which is hypointense tohepatic parenchyma on hepatobiliary phase images (series 24, image 40), whichdoes not meet criteria for focal nodular hyperplasia. Inferior and medial to this, there is a 1.4 x 1.4 cm arteriallyenhancing observation in hepatic segment 5/8 (series 8, image 54), which remains hyperintense to hepatic parenchyma on hepatobiliary phase images (series 24, image 54), consistent with focal nodular hyperplasia. A small 1.3 x 1.6 cm arterially enhancing observation is present in hepatic segment 6/7 (series 8, image 55), which remains isointense to hepatic parenchyma on hepatobiliary phase images (series 24, image 55), consistent with focal nodular hyperplasia. Focal fatty infiltration is seen along the falciform ligament,unchanged. Hepatic vasculature Portal and hepatic veins: Normal and patent. Arterial anatomy: Conventional. Gallbladder and bile ducts Gallbladder: Filling defects in the dependent portion of the gallbladder are consistent with sludge vs. small gallstones. No wall thickening or pericholecystic fluid. Bile ducts: Nondilated. Retroperitoneum Pancreas: Normal. Adrenals: Normal. Kidneys: Subcentimeter simple renal cysts the midportion of the right kidney. Lymph nodes: No lymphadenopathy. Gastrointestinal: Imaged bowel and mesentery are normal. Impression: 1.Three observations in the right hepatic lobe demonstrate imaging characteristics consistent with focal nodular hyperplasia. The largestof these in hepatic segment 7 measures 4.4 cm, grossly similar in sizesince prior examination. 2.An indeterminate observation is seen in hepatic segment 8, favored to represent a hepatic adenoma. Continued short-term follow-up MRI with Eovist is recommended in 6 months. 3.No new arterially enhancing lesions. 4.Hepatomegaly with severe diffuse hepatic steatosis. 5.Sludge vs. small gallstones in the gallbladder. Report dictated by Karrie Hall MD (radiology director). I, Dr. KENNY COVARRUBIAS M.D. have personally reviewed and interpreted this examination/study. This report was electronically signed by KENNY COVARRUBIAS M.D. on04/27/2021 3:19 PM . Maribel Kitchen MD MR ORDERABLES * CREATININE - POCT INTERFACED (04/27/2021 11:02 AM OVERHEAD DISTRIBUTION ENGINEER) Creatinine POCT 0.81 0.30 - 1.30 mg/dL 04/27/2021 11:07 AM OVERHEAD DISTRIBUTION ENGINEER [facility] eGFR >60 >60 mL/min/1.7 3 m2 04/27/2021 11:07 AM OVERHEAD DISTRIBUTION ENGINEER [facility] Blood BLOOD SPECIMEN / Unknown 04/27/2021 11:02 AM OVERHEAD DISTRIBUTION ENGINEER 04/27/2021 11:07 AM OVERHEAD DISTRIBUTION ENGINEER Maribel Kitchen MD LAB - POINT OF CARE ORDERABLES [facility] [address] [place] [id number], [facility] [phone] documented in this encounter Visit Diagnoses Diagnosis Liver lesion Other specified disorders of liver Focal nodular hyperplasia of liver Other specified disorders of liver NAFLD (nonalcoholic fatty liver disease) Other chronic nonalcoholic liver disease Morbid obesity (HCC) Morbid obesity documented in this encounter Administered Medications Inactive Administered Medications - up to 3 most recent administrations Medication Order MAR Action Action Date Dose Rate Site gadoxetate disodium (Eovist) injection Intravenous, CONTRAST ONCE, Starting on Mon04/27/21 at 1123, Until Mon04/28/21 at 0218 $ Given - Contrast 04/27/2021 11:25 AM OVERHEAD DISTRIBUTION ENGINEER 10 mL documented in this encounter Care Teams Speaker Mounter Relationship Specialty Start Date End Date Jonelle Elam MD [address] [place] [address] [place] [id number] PCP - General Family Medicine 10/24/18 Manju Rainey DO [address] [place] [address] Bariatrics 08/11/20 documented as of this encounter
--- OUTSIDE RECORDS SUMMARY | 2024-04-14 17:44 | XMS_ITS | Encounter Summary ---
Author Organization [facility] Address [address] [place] [address] Care Team Providers Care Residential Door Unit Installer Name Role Phone Jonelle Elam MD Primary Care Provider [phone] Manju Rainey DO Unavailable [phone] Reason for Referral * Evaluate & Treat (Routine) - Closed Specialty Diagnoses / Procedures Referred By Ritika bonner Referred To Contact Neurology Diagnoses Nonintractable headache, unspecified chronicity pattern, unspecified headache type Linda Gurrola APRN-CNP [facility] [place] [address] Aff Slu Neur [facility] [address] [place] [address] Referral ID Status Reason Start Date Expiration Date V isits Requested Visits Authorized [id number] Closed Specialty Services Required 07/01/2021 07/01/2022 1 1 Reason for Visit * Reason Comments Liver Problem NAFLD Encounter Details Date Type Department Care Team (Late st Contact Info) Description 07/01/2021 3:30 PM CDT Office Visit [facility] - GI [address] [place] [address] Linda Gurrola APRN-CNP [facility] [place] [address] Nonintractable headache, unspecified chronicity pattern, unspecified headache type (Primary Dx); NAFLD (nonalcoholic fatty liver disease); Liver lesion; Fatty (change of) liver, not elsewhere classified; Liver disease, unspecified; Hepatomegaly, not elsewhere classified; Vomiting, intractability of vomiting not specified, presence of nausea not specified, unspecified vomiting type; Visual discomfort, unspecified laterality; Morbid (severe) obesity due to excess calories (HCC); Body mass index (BMI) 50.0-59.9, adult (HCC) Social History Tobacco Use Types [...] Sign Reading Time Taken Comments Blood Pressure 132/84 07/01/2021 3:28 PM CDT Pulse 85 07/01/2021 3:28 PM CDT Temperature 36.2 ??C (97.1 ??F) 07/01/2021 3:28 PM CD T Respiratory Rate 18 07/01/2021 3:28 PM CDT Oxygen Saturation 100% 07/01/2021 3:28 PM CDT Inhaled Oxygen Concentration - - Weight 153.3 kg (338 lb) 07/01/2021 3:28 PM CDT Height - - Body Mass Index 59.87 03/24/2021 3:00 PM ALARM SIGNALER documented in this encounter Progress Notes * Linda Gurrola APRN-CNP - 07/01/2021 3:45 PM CDT I saw Ms. Campbell in Liver Clinic at [facility] today for follow up visit regarding: Past Visit Note. 05/19/21 liver cancer conference Discussion: All 3 lesions appear consistent with FNH. Previous imaging mentioned the presence of anadenoma. The lesions are increasing in size. ?? Clinical Trial: none available ?? Board Recommendations: Repeat imaging in 6 months. MRI with eovist Chief Complaint Patient presents with ??? Liver Problem NAFLD Patient Active Problem List: Cataracts, bilateral NAFLD (nonalcoholic fatty liver disease) Anxiety GERD (gastroesophageal reflux disease) Liver lesion Supervision of high-risk of young multigravida Short interval between pregnancies affecting , antepartum History of delivery Maternal morbid obesity, antepartum Lumbar herniated disc Diverticulitis Sleep apnea Chronic hypertension affecting Frequent headaches Interim history: Deya Campbell is a 25 year old female in clinic for follow up regarding NAFLD and liver lesions. Sheis accompanied by her spouse today. She reports increased stress between work and family (children age 9,2 and one ). 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 She admits to [...] abdominal distention. No bloody or melanous stools. Current Outpatient Medications Medication Sig ??? escitalopram (LEXAPRO) 10 MG tablet Take 10 mg by mouth once daily ??? Iron, Ferrous Sulfate, 325 (65 Fe) MG TABS Take by mouth once daily ??? omeprazole (PRILOSEC) 20 MG capsule Take 1 (one) capsule by mouth once daily Stop pantoprazole.Begin taking omeprazole post operatively. ??? Paragard Intrauterine Copper IUD ParaGard T 380A 380 square mm intrauterine device Take by intrauterine route. ??? topiramate (TOPAMAX) 100 MG tablet Take 100 mg by mouth 2 times daily (Patient not taking: Reported on 03/24/2021) ??? vitamin D, cholecalciferol, 50 MCG (2000 UT) tablet Take 2,000 Units by mouth once daily ??? vitamin D, ergocalciferol, (DRISDOL) 1.25 MG (46326 UT) capsule Take 1 (one) capsule by mouth every 7 days Reasons: Vitamin D Deficiency No current facility-administered medications for this visit. She describes her current alcohol consumption as none cigarette smoking no Family history of liver disease: no Social History Social History Narrative ??? Not on file Review of systems: Chest pain: none. Shortness of breath: none. Nausea and vomiting: none. Constipation or diarrhea: none. Upper or lower GI bleeding: none. On exam today, she appeared obese, alert and anicteric. I reviewed today's vital signs with the patient. Vitals: 07/01/21 1528 BP: 132/84 Pulse: 85 Resp: 18 Temp: 97.1 ??F (36.2 ??C) SpO2: 100% Weight: (!) 153.3 kg (338 lb) Body mass index is 59.87 kg/m??. Wt Readings from Last 3 Encounters: 07/01/21 (!) 153.3 kg (338 lb) 03/24/21 (!) 137.8 kg (303 lb 14.4 oz) 02/09/21 (!) 142.9 kg (315 lb) . Lungs were clear to auscultation [...] 196 - - INR 1.0 - - MELD-Na score: 6 at 12/02/2020 2:34 PM MELD score: 6 at 12/02/2020 2:34 PM Calculated from: Serum Creatinine: 0.63 mg/dL (Using min of 1 mg/dL) at 12/02/2020 2:34 PM Serum Sodium: 142 mmol/L (Using max of 137 mmol/L) at 12/02/2020 2:34 PM Total Bilirubin: 0.6 mg/dL (Using min of 1 mg/dL) at 12/02/2020 2:34 PM INR(ratio): 1.0 at 12/02/2020 2:34 PM Age: 25 years Chronic liver disease workup: HCV ab 01/02/19 Nonreactive HBsAg 01/02/19 Nonreactive HBcAb total ? HBsAb 01/02/19 Nonreactive Hep A total ab 01/02/19 Positive Iron ? Transferrin Saturation 01/02/19 6% Ferritin ? AMA 01/02/19 2.3 MEHDI 01/02/19 Negative ASMA 01/02/19 7.5 A1AT 01/02/19 123, MM Ceruloplasmin 01/02/19 42 -MRI abd w/wo contrast 11/03/18: Liver is normal size with no hepatic surface nodularity. ??4.1 cm lesion in the hepatic dome as well as a 3.2 cm lesion in right hepatic lobe. -CT a/p with contrast 12/18/18: ??Homogenously enhancing liver mass. ??Mild sigmoid diverticulosis -MRI 02/14/19: Two observations in hepatic segment 7 an 8 measuring up to 4.3 cm, consistent with FNH. Mild diffuse hepatic steatosis. -MRI abd w/wo contrast 04/17/2020: 2 observations in the right liver c/w with FNH, largest increasing in size and measuring 4.3 cm. Two new observations in hepatic seg 7 and 8, favored to represent FNH. Progression of diffuse hepatic steatosis, now severe. ?? Liver biopsy/Fibroscan: Fibroscan 11/05/18: Liver stiffness 7.6 kPa, CAP 396 ?? Assessment: 1. NAFLD 2. Liver lesions, suspected to be FNH but awaiting follow up imaging for confirmation 3. morbid obesity. 4. hepatomegaly 5. headaches associated with vomiting, photophobia Plan: 1. MRI eovist in November 2. 6 months with blood work 3. neurlology referral 4. Specific recommendations were provided regarding diet and exercise including the avoidance of sugar sweetened beverages and dietary trans-fats. weight loss encouraged An appointment was scheduled for her to see me in followup in 6 months. Copy to: Jonelle Elam MD [address] [place] [address] [facility] Division of Gastroenterology and Hepatology Collaborating physician: Dr. Farhad Mesa July 05, 2021 Orders Placed This Encounter ??? Ref to Neurology - [facility] documented in this encounter Plan of Treatment Scheduled Referrals Name Type Priority Associated Diagnoses Orde r Schedule Ref to Neurology - [facility] Outpatient Referral Routine Nonintractable headache, unspecified chronicity pattern, unspecified headache type 1 Occurrences starting 07/01/2021 until 07/01/2022 documented as of this encounter Goals Goal [...] as of this encounter Visit Diagnoses Diagnosis Nonintractable headache, unspecified chronicity pattern, unspecified headache type- Primary NAFLD (nonalcoholic fatty liver disease) Other chronic nonalcoholic liver disease Liver lesion Other specified disorders of liver Fatty (change of) liver, not elsewhere classified Liver disease, unspecified Hepatomegaly, not elsewhere classified Vomiting, intractability of vomiting not specified, presence of nausea not specified, unspecified vomiting type Visual discomfort, unspecified laterality Morbid (severe) obesity due to excess calories (HCC) Body mass index (BMI) 50.0-59.9, adult (HCC) documented in this encounter Care Teams Residential Door Unit Installer Relationship Specialty Start Date End Date Jonelle Elam MD [address] [place] [address] PCP - General Family Medicine 10/24/18 Manju Rainey DO [address] [place] [address] Bariatrics 08/11/20 documented as of this encounter
--- OUTSIDE RECORDS SUMMARY | 2024-04-14 17:45 | XMS_ITS | Encounter Summary ---
Author Organization [facility] Address [address] [place] [address] Care Team Providers Care Shelf Drier Operator Name Role Phone Jonelle Elma MD Primary Care Provider [phone] Reason for Referral * Radiology Services (Routine) - Closed Specialty Diagnoses / Procedures Referred By Ritika bonner Referred To Contact MRI Diagnoses Liver lesion Procedures MRI ABDOMEN WWO CONTRAST Maribel Kitchen MD [address] [place] [address] [facility] [address] [place] [address] Referral ID Status Reason Start Date Expiration Date Visits Re quested Visits Authorized [id number] Closed 04/05/2021 04/05/2022 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 1.5 CM NODULE SEGMENT 8 OF LIVER HAS SIGNAL CHARACTERISTICS MOST SUGGESTIVE OF EITHER A FLASH FILLING HEMANGIOMA OR HEPATIC ADENOMA. SMALL RIGHT RENAL CYST. Edited by Lianne Hammer on 01/20/2021 2:26 PM *Reading Radiologist: Otto Mcneal on 01/20/2021 at 2:56 PM Narrative 01/20/2021 2:56 PM CDT MRI ABDOMEN WITH AND WITHOUT INTRAVENOUS CONTRAST CLINICAL INDICATION: Indeterminate liver lesions noted on prior outside ultrasound. COMPARISON: No prior images available for comparison. TECHNIQUE: Multiplanar multisequence dynamic pre and postcontrast MR imaging of the abdomen was performed. 10 mL of intravenous contrast was utilized. Postcontrast imaging was carried out to the 20 minute hepatobiliary phase with T1 postcontrast subtraction image creation. FINDINGS: 4.5 cm mass segment 8 liver. Lesion exhibits arterial hyperenhancement, mild enhancement greater than liver parenchyma at the portal venous phase, and hyperenhancement relative to liver parenchyma at the 20 minute hepatobiliary phase. Lesion exhibits homogeneous T2 hyperintensity with a central stellate small T2 hypointense scar. Lesion consistent with focal nodular hyperplasia. 1.5 cm round nodule segment 8 liver. Lesion exhibits arterial phase hyperenhancement, isoenhancement at the portal venous phase, and washout greater than liver parenchyma at the 20 minute hepatobiliary phase. Lesion exhibits T2 hyperintensity. The lesion most likely represents either a flash filling hemangioma or hepatic adenoma. 1.5 cm round nodule segment 7 liver. Lesion exhibits diffuse arterial phase hyperenhancement, persistent hyperenhancement at the portal venous phase, and significant persistent hyperenhancement relative to liver parenchyma at the 20 minute hepatobiliary phase. Lesion exhibits diffuse T2 hyperintensity. Lesion consistent with focal nodular hyperplasia. No other mass lesions identified within the liver. Liver normal in size. Hepatic vasculature widely patent. No bile duct dilatation. Small nonenhancing T2 hyperintense 7 mm simple cyst posterior cortex mid pole right kidney. Left kidney normal. Adrenal glands, pancreas, gallbladder, and spleen are unremarkable. Procedure Note Otto Mcneal MD - 01/20/2021 MRI ABDOMEN WITH AND WITHOUT INTRAVENOUS CONTRAST CLINICAL INDICATION: Indeterminate liver lesions noted on prior outside ultrasound. COMPARISON: No prior images available for comparison. TECHNIQUE: Multiplanar multisequence dynamic pre and postcontrast MR imaging of the abdomen was performed. 10 mL of intravenous contrast was utilized. Postcontrast imaging was carried out to the 20 minute hepatobiliary phase with T1 postcontrast subtraction image creation. FINDINGS: 4.5 cm mass segment 8 liver. Lesion exhibits arterial hyperenhancement, mild enhancement greater than liver parenchyma at the portal venous phase, and hyperenhancement relative to liver parenchyma at the 20 minute hepatobiliary phase. Lesion exhibits homogeneous T2 hyperintensity with a central stellate small T2 hypointense scar. Lesion consistent with focal nodular hyperplasia. 1.5 cm round nodule segment 8 liver. Lesion exhibits arterial phase hyperenhancement, isoenhancement at the portal venous phase, and washout greater than liver parenchyma at the 20 minute hepatobiliary phase. Lesion exhibits T2 hyperintensity. The lesion most likely represents either a flash filling hemangioma or hepatic adenoma. 1.5 cm round nodule segment 7 liver. Lesion exhibits diffuse arterial phase hyperenhancement, persistent hyperenhancement at the portal venous phase, and significant persistent hyperenhancement relative to liver parenchyma at the 20 minute hepatobiliary phase. Lesion exhibits diffuse T2 hyperintensity. Lesion consistent with focal nodular hyperplasia. No other mass lesions identified within the liver. Liver normal in size. Hepatic vasculature widely patent. No bile duct dilatation. Small nonenhancing T2 hyperintense 7 mm simple cyst posterior cortex mid pole right kidney. Left kidney normal. Adrenal glands, pancreas, gallbladder, and spleen are unremarkable. IMPRESSION 4.5 CM MASS SEGMENT 8 LIVER AND 1.5 CM ROUND NODULE SEGMENT 7 LIVER HAVE MR SIGNAL CHARACTERISTICS CONSISTENT WITH FOCAL NODULAR HYPERPLASIA. 1.5 CM NODULE SEGMENT 8 OF LIVER HAS SIGNAL CHARACTERISTICS MOST SUGGESTIVE OF EITHER A FLASH FILLING HEMANGIOMA OR HEPATIC ADENOMA. SMALL RIGHT RENAL CYST. Edited by Lianne Hammer on 01/20/2021 2:26 PM *Reading Radiologist: Otto Mcneal on 01/20/2021 at 2:56 PM Maribel Kitchen MD MR ORDERABLES documented in this encounter Visit Diagnoses Diagnosis Liver lesion- Primary Other specified disorders of liver Liver lesion Other specified disorders of liver documented in this encounter Care Teams Shelf Drier Operator Relationship Specialty Start Date End Date Jonelle Elam MD [address] [place] [address] [place] Reinoso [phone] PCP - General Family Medicine 10/24/18 documented as of this encounter
--- OUTSIDE RECORDS SUMMARY | 2024-04-14 17:45 | XMS_ITS | Encounter Summary ---
Author Organization [facility] Address [address] [place] [address] Care Team Providers Care Handhole Machine Operator Name Role Phone Jonelle Elam MD Primary Care Provider [phone] Reason for Visit * Reason Comments Obesity Follow Up Encounter Details Date Type Department Care Team (Late st Contact Info) Description 04/15/2020 2:00 PM HEEL COMPRESSOR Video Visit [facility] [address] [place] [phone] [place] [id number] [address] Manju Rainey, DO [address] [place], [place] [id number] Obesity, morbid, BMI 50 or higher (HCC) ; Vitamin D deficiency; Essential hypertension; Gastroesophageal reflux disease, unspecified whether esophagitis present; Irritable bowel syndrome with both constipation and diarrhea; NAFLD (nonalcoholic fatty liver disease); Anxiety Social History Tobacco Use Types Packs/Day Years [...] - Inhaled Oxygen Concentration - - Weight 140.3 kg (309 lb 3.2 oz) 04/15/2020 1:45 PM HEEL COMPRESSOR Height 158.4 cm (5' 2.36 ) 04/15/2020 1:45 PM CS T Body Mass Index 55.9 04/15/2020 1:45 PM HEEL COMPRESSOR documented in this encounter Patient Instructions * Patient Instructions* Manju Rainey, DO - 04/15/2020 2:21 PM HEEL COMPRESSOR Images from the original note were not included. Patient Education Weight Management COMMUNITY MUSIC THERAPIST: Why it is important to manage your weight: Being overweight increases your risk of health conditions such as heart disease, high blood pressure, type 2 diabetes, and certain types of cancer. It can also increase your risk for osteoarthritis, sleep apnea, and other respiratory problems. Aim for a slow, steady weight loss. Even a small amount of weight loss can lower your risk of health problems. How to lose weight safely: A safe and healthy way to lose weight is to eat fewer calories and get regular exercise. ?? You can lose up about 1 pound a week by decreasing the number of calories you eat by 500 calories each day. You can decrease calories by eating smaller portion sizes or by cutting out high-caloriefoods. Read labels to find out how many calories are in the foods you eat. ?? You can also burn calories with exercise such as walking, swimming, or biking. You will be more likely to keep weight off if you make these changes part of your lifestyle. Exercise at least 30 minutes per day on most days of the week. You can also fit in more physical activity by taking the stairs instead of the elevator or parking farther away from stores. Ask your healthcare provider about the best exercise plan for you. Healthy meal plan for weight management: A healthy meal plan includes a variety of foods, contains fewer calories, and helps you stay healthy. A healthy meal plan includes the following: ?? Eat whole-grain foods more often. A healthy meal plan should contain fiber. Fiber is the part ofgrains, fruits, and vegetables that is not broken down by your body. Whole-grain foods are healthy and provide extra fiber in your diet. Some examples of whole-grain foods are whole-wheat breads and pastas, oatmeal, brown rice, and bulgur. ?? Eat a variety of vegetables every day. Include dark, leafy greens such as spinach, kale, collardgreens, and mustard greens. Eat yellow and orange vegetables such as carrots, sweet potatoes, and winter squash. ?? Eat a variety of fruits every day. Choose fresh or canned fruit (canned in its own juice or light syrup) instead of juice. Fruit juice has very little or no fiber. ?? Eat low-fat dairy foods. Drink fat-free (skim) milk or 1% milk. Eat fat-free yogurt and low-fat cottage cheese. Try low-fat cheeses such as mozzarella and other reduced-fat cheeses. ?? Choose meat and other protein foods that are low in fat. Choose beans or other legumes such as split peas or lentils. Choose fish, skinless poultry (chicken or turkey), or lean cuts of red meat (beef or pork). Before you cook meat or poultry, cut off any visible fat. ?? Use less fat and oil. Try baking foods instead of frying them. Add less fat, such as margarine, sour cream, regular salad dressing and mayonnaise to foods. Eat fewer high-fat foods. Some examples of high-fat foods include greenlandic fries, doughnuts, ice cream, and cakes. ?? Eat fewer sweets. Limit foods and drinks that are high in sugar. This includes candy, cookies, regular soda, and sweetened drinks. Ways to decrease calories: ?? Eat smaller portions. ? Use a small plate with smaller servings. ? Do not eat second helpings. ? When you eat at a restaurant, ask for a box and place half of your meal in the box before you eat. ? Share an entr??e with someone else. ?? Replace high-calorie snacks with healthy, low-calorie snacks. ? Choose fresh fruit, vegetables, fat-free rice cakes, or air-popped popcorn instead of potato chips, nuts, or chocolate. ? Choose water or calorie-free drinks instead of soda or sweetened drinks. ?? Do not shop for groceries when you are hungry. You may be more likely to make unhealthy food choices. Take a grocery list of healthy foods and shop after you have eaten. ?? Eat regular meals. Do not skip meals. Skipping meals can lead to overeating later in the day. This can make it harder for you to lose weight. Eat a healthy snack in place of a meal if you do not have time to eat a regular meal. Talk with a dietitian to help you create a meal plan and schedule that is right for you. Other things to consider as you try to lose weight: ?? Be aware of situations that may give you the urge to overeat, such as eating while watching television. Find ways to avoid these situations. For example, read a book, go for a walk, or do crafts. ?? Meet with a weight loss support group or friends who are also trying to lose weight. This may help you stay motivated to continue working on your weight loss goals. ?? Copyright [employer] 2020 Information is for End User's use only and may not be sold, redistributed or otherwise used for commercial purposes. All illustrations and images included in CareNotes?? are the copyrighted property of [employer]. or [employer] The above information is an dietary service aide only. It is not intended as medical advice for individual conditions or treatments. Talk to your doctor, nurse or pharmacist before following any medical regimen to see if it is safe and effective for you. COMPRESSOR documented in this encounter Progress Notes * Manju Rainey DO - 04/15/2020 2:21 PM CST Images from the original note were not included. [facility] at [address] [address] . . Telemedicine Note Today's visit was conducted virtually due to COVID-19 countermeasures. The patient has given verbalconsent to have today's visit conducted by this same means with treatment provided remotely. The patient verbally consents to the billing and collection practices of [facility]. Patient location: Home This encounter was performed using: audio and video Time spent direct and indirect care: : Thirty-five minutes Date of encounter: 04/15/2020 Provider: Manju Rainey DO Patient: Deya Campbell CSN: [id number] Specialty: Bariatrics. Date of : 1995 Visit type: Medical weight loss follow up: Telemedicine (398) Audio and visual _x___ Audio only ___ Verbal consent from patient to treat and bill insurance obtained. Yes This 24 year old female patient was referred by self for Medical Weight loss follow up. Bariatric HPI she was seen in clinic last on 03/11/2020. Patient has gained 1 lb from that visit. Patient is still down a total of 11.5 lb from her initial visit. Patient has been struggling some with stress sinceher last visit. She has been doing some emotional eating. She currently is not tracking as she states when she is focused on tracking and riding down her food it seems to make her more hungry. She states she is getting her stress under better control. Her blood pressure is still running in the 130sover 90. She recently had her blood pressure medicine dosage increased. It does seem to be doing better. History of fatty liver: No abdominal pain, history of IBS currently stable. Reflux has been stable. Hyperlipidemia managed by PCP. No acute complaints at this time. 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 Since the holidays her hours have been cut in half. We discussed adding some exercise videos toher daily routine. Patient states she does have an exercise bike free weights in her basement. She may use these if prefers. Sleep: Approximately 7 hr. Goal 7.5-9 hours. Nutrition: Breakfast: Protein shake. Lunch: Protein shake + tortilla and meat and vegetable wrap. Dinner: Meat and vegetables. Fluids: Water. Snacks: Patient states this is where she has been going off track. When she gets stressed she will go out and seek food at a fast food restaurant. Sometimes a burger and fries. Discussed lower calorie satisfying options and additional stimulus control. Barriers or problems: Still struggling with stimulus control and stress management. Co morbid conditions: Vitamin-D deficiency being treated, hypertension, hyperlipidemia, reflux, IBSmixed, fatty liver, anxiety. GOALS from last visit: 1: Less than 1900 calories per day with 1 or 2 protein meal replacements daily. Working toward goal. 2. 90+ g protein daily. Generally meeting goal. 3. 64+ oz fluid daily. Meeting goal. Patient is taking 30 to 60 grams of proteins supplements daily. Patient is taking 64+ oz of fluid per day. Doing increased walking and some resistance work approximately 3 days per week. Will try to be moreconsistent. The patient is not on weight loss medication : Patient has significant increase in her struggles inthe early evening. I have asked that she check her blood pressures daily and when her blood pressures have been running consistently less than 140/90 for a couple of weeks may consider lomaira 8 mg once daily. Patient will send her blood pressure readings to me in my chart. The patient has gained 1 lb from last visit. She is still down a total of 11.5 lb from her initial visit 02/12/2020. Weight History: Initial Weight: 320.7 lb. BMI Date: 02/12/2020 Weight: (!) 315 lb 1.6 oz [...] Total Wt Loss in lb: -11.5 lb Obesity History Years at current weight? 1 Years at 35 pounds overweight? Years 100 pounds overweight? Age patient started to diet? 11 Maximum weight reached? 328 Most significant weight loss: Amount of weight loss 30 lbs Months weight loss sustained 2-3 months Method of weight loss trying to exercise and not eating right Diet History: Diet History: Herbal and Non-Prescription Weights Loss Supplements: Gildardo 3 wks 5 lbs 2012, truvision 2 months 10 lbs 2017, Skinny stix 1 month no wt loss 2018, HCG drops 2 months no wt loss 2013, apple cider pills2 wks no wt loss 2018, hydroycut 1 month 10 lbs 2013. Eating Habits: Volume Eater , Sweet Eater, All day long Eater and Snacker/ Grazer Eater Sleep History: Loud snoring Daytime sleepiness Difficulty falling asleep Inability to concentrate Fatigue Morning headaches Irritability/Depression Worrying you won't be able to fall asleep Heartburn, indigestion, sour taste Legs or arms jerking during sleep Sleep Habits 1. At what time do you usually get to bed? Between 12-2 am 2. How long does it take to fall asleep after lights out? 15-20 mins or longer 3. How often do you awaken at night? Every hour it seems 4. Total time spent awake in bed? 30 mins if awake 5. I usually wake up at: everything i'm a light sleeper 6. Total length of naps daily? If I take one 1 hr 7. Do you work a rotating shift? na 8. Do you have an unusual work schedule? na [place] Sleepiness Scale total points: 9 Past Medical History: Diagnosis Date ??? Anxiety ??? Breast disorder history of breast lump-normal ??? Chronic hypertension 2011 ??? Diverticulitis ??? Fatty liver disease, nonalcoholic ??? Lumbar herniated disc 2015 Previously had physicial therapy and injections ??? Morbid obesity ??? 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 Sleep apnea Has not had a sleep study Past Surgical History: Procedure Laterality Date ??? Cataract Removal Left 2018 artificial lens ??? Tonsillectomy and Adenoidectomy 2002 ??? Tympanostomy 2001, 2002 Social History Socioeconomic History ??? Marital status: Spouse name: Not on file ??? Number of children: Not on file ??? Years of education: Not on file ??? Highest education level: Not on file Occupational History ??? Not on file Social Needs ??? Financial resource strain: Not on file ??? Food insecurity Worry: Not on file Inability: Not on file ??? Transportation needs Medical: Not on file Non-medical: Not on file Tobacco Use ??? Smoking status: Never Smoker ??? Smokeless tobacco: Never Used Substance and Sexual Activity ??? Alcohol use: Not Currently ??? Drug use: Never ??? Sexual activity: Not on file Lifestyle ??? Physical activity Days per week: Not on file Minutes per session: Not on file ??? Stress: Not on file Relationships ??? Social connections Talks on phone: Not on file Gets together: Not on file Attends gnosticist service: Not on file Active member of club or organization: Not on file Attends meetings of clubs or organizations: Not on file Relationship status: Not on file ??? Intimate partner violence Fear of current or ex partner: Not on file Emotionally abused: Not on file Physically abused: Not on file Forced sexual activity: Not on file Other Topics Concern ??? Not on file Social History Narrative ??? Not on file Family History Problem Relation [...] Outpatient Medications Marked as Taking for the 04/15/20 encounter (Video Visit) with Kristal Rainey, DO Medication Sig ??? busPIRone (BUSPAR) 10 MG tablet TK 1 T PO BID ??? Ferrous Sulfate (SLOW FE) 142 (45 Fe) MG Patient will start tomorrow. Reasons: Anemia From Inadequate Iron in the Body ??? losartan (COZAAR) 100 MG tablet Take 100 mg by mouth once daily (Not in a hospital admission) Allergies Allergen Reactions ??? Levofloxacin Urticaria and Itching Chest pain, shortness of breath and pain and weakness in legs ??? Cephalexin Rash ??? Nifedipine Other Facial redness, palpitations ??? Labetalol Shortness of Breath ROS: Systemic: negative Psychological ROS: Increased stress, anxiety. Does report the BuSpar is helping. Working on stress reduction and reports improvement. Ophthalmic ROS: negative ENT ROS: negative Hematological ROS: Vitamin-D deficiency being treated Endocrine ROS: Obesity class 3 with overall improvement Respiratory ROS; negative Cardiovascular ROS: Hypertension clinically improving GI ROS: Mixed IBS, reflux stable ROS: negative Musculoskeletal ROS: negative Neurological ROS: negative Dermatological ROS: negative. Objective: Vital Signs: Ht 5' 2.36 (1.584 m) Wt 309 lb 3.2 oz (140.3 kg) BMI 55.9 kg/m2 Weight: (!) 309 lb 3.2 oz (140.3 kg) Height: 5' 2.36 (158.4 cm) Body mass index is 55.9 kg/m??. Constitutional: Alert, awake and oriented without any apparent discomfort. Eyes: Anicteric. Extraocular muscles were intact. Neck Exam: unable Respiratory : unable Cardiovascular: unable Abdomen: unable Skin: Normal color Extremities: unable Neurological: A& O X 3. . Psychiatric: The patient's mood and affect appeared to be appropriate. Patient is neatly dressed. Has spontaneous conversation answers questions appropriately. Patient does appear motivated to continue healthy lifestyle modification for further weight reduction to a healthier BMI. Labs Recent Labs Component Name 04/12/19 1514 01/02/19 1236 AST 16 20 ALT 12 24 Some lab results will be in paper format so may be scanned in the EMR. Labs reviewed from 03/09/2020. Imaging studies No results found. Some Imaging studies results will be in paper format so may be scanned in the EMR. None to be reviewed today. Assessment and Plan Assessment: ICD-10-CM 1. Obesity, morbid, BMI 50 or higher E66.01 Increased efforts at healthy lifestyle modification with healthy nutrition, increased regular physical activity both aerobic and resistance components and proper sleep discussed today. Goals: 1. Less than 1900 calories per day with 1 or 2 protein meal replacements daily. Patient feels that she does worse when she is tracking. Encouraged small plate model for portion control. Discussed stimulus control. 2. 90+ g protein daily. 3. 64+ oz fluid daily. 4. 150 min of aerobic activity and 3 days of resistance work weekly. 5. Goal for sleep 7.5-9 hours. 6. Mindful eating with snacking only if truly hungry. Choose from low-calorie lean protein and produce snacks less than or equal to 100 calories. 2. Vitamin D deficiency E55.9 Recheck vitamin-D level in June or July. 3. Essential hypertension I10 Continue care with PCP. Monitor blood pressures daily. To send blood pressures for my review when consistently over 90 in consideration of using an appetite suppressant to help her with her weight management. 4. Gastroesophageal reflux disease, unspecified whether esophagitis present K21.9 Continue care with PCP and GI. Weight reduction may improve reflux symptoms.. 5. Irritable bowel syndrome with both constipation and diarrhea K58.2 Continue care with PCP and GI. Symptoms currently stable 6. NAFLD (nonalcoholic fatty liver disease) K76.0 Continue care with PCP and liver specialist. Weight reduction will help improve fatty liver. 7. Anxiety F41.9 Continue care with PCP. Optimal management of anxiety may enhance compliance with weight management program. Consults and Test ordered or needs follow up: Continue care with PCP and specialist as directed. Follow-up with me in 1 month. Call or return sooner if any questions concerns or problems. Follow up: Will see me in 1 month. She verbalized understanding and is agreeable to this plan after shared decision making with patient. This encounter with the patient lasted 35 min, including chart prep, patient visit including counseling with the patient regarding increased physical activity, reduced caloric intake, healthy diet and behavioral modifications and documentation of visit. Manju Rainey DO CC: Jonelle Elam MD COMPRESSOR documented in this encounter Plan of Treatment Not on file documented as of this encounter Visit Diagnoses Diagnosis Obesity, morbid, BMI 50 or higher (HCC)- Primary Vitamin D deficiency Essential hypertension Gastroesophageal reflux disease, unspecified whether esophagitis present Irritable bowel syndrome with both constipation and diarrhea NAFLD (nonalcoholic fatty liver disease) Other chronic nonalcoholic liver disease Anxiety Anxiety state, unspecified documented in this encounter Care Teams Handhole Machine Operator Relationship Specialty Start Date End Date Jonelle Elam MD [address] [place] [phone] PCP - General Family Medicine 10/24/18 documented as of this encounter
--- OUTSIDE RECORDS SUMMARY | 2024-04-14 17:45 | XMS_ITS | Encounter Summary ---
Author Organization [facility] Address [address] [place] [address] Care Team Providers Care Virtual Customer Assistant Name Role Phone Jonelle Elam MD Primary Care Provider [phone] Reason for Visit * Reason Onset Date Comments Order 01/16/2020 Encounter Details Date Type Department Care Team (Late st Contact Info) Description 01/16/2020 Telephone [facility] [address] [place] [phone] Rain Claros MD [address] [place] [address] Order Social History Tobacco Use Types Packs/Day Years Used Date Smoking Tobacco: Never Smokeless Tobacco: Never Alcohol Use Standard Drinks/Week Comments Not Currently 0 (1 standard drink = 0.6 oz pur e alcohol) Comments Yes Sex and Gender Information Value Date Recorded Sex Assigned at Not on file Gender Identity Not on file Sexual Orientation Not on file documented as of this encounter Miscellaneous Notes * Telephone Encounter - Arianna Godfrey LPN - 01/16/2020 3:32 PM CDT covid test ordered * Telephone Encounter - Kandy Yancey - 01/16/2020 3:17 PM CDT EGD scheduled 02/04. Please enter Covid19 order. Instructions given to pt. documented in this encounter Plan of Treatment Not on file documented as of this encounter Visit Diagnoses Diagnosis Pre-op exam- Primary Preoperative examination, unspecified documented in this encounter Care Teams Virtual Customer Assistant Relationship Specialty Start Date End Date Jonelle Elam MD [address] [place] [address] [place] [address] PCP - General Family Medicine 10/24/18 documented as of this encounter
--- OUTSIDE RECORDS SUMMARY | 2024-04-14 17:45 | XMS_ITS | Encounter Summary ---
Author Organization [facility] Address [address] [facility] [facility] [place] [address] Care Team Providers Care Wafer Mounter Name Role Phone Jonelle Elam MD Primary Care Provider [phone] Reason for Visit * Reason Comments Obesity Follow Up Encounter Details Date Type Department Care Team (Late st Contact Info) Description 05/20/2020 2:30 PM SOCIAL SECRETARY Video Visit [facility] [address] [place] [phone] Manju Rainey, DO [address], [place] [phone] Obesity, morbid, BMI 50 or higher (HCC) ; Vitamin D deficiency; Essential hypertension; Gastroesophageal reflux disease, unspecified whether esophagitis present; NAFLD (nonalcoholic fatty liver disease); Anxiety Social [...] Sign Reading Time Taken Comments Blood Pressure 138/94 05/20/2020 2:15 PM SOCIAL SECRETARY per pt Pulse - - Temperature - - Respiratory Rate - - Oxygen Saturation - - Inhaled Oxygen Concentration - - Weight 137.5 kg (303 lb 3.2 oz) 05/20/2020 2:15 PM SOCIAL SECRETARY per pt Height 158.4 cm (5' 2.36 ) 05/20/2020 2:15 PM CS T Body Mass Index 54.81 05/20/2020 2:15 PM SOCIAL SECRETARY documented in this encounter Patient Instructions * Patient Instructions* Manju Rainey, - 05/20/2020 3:14 PM SOCIAL SECRETARY Images from the original note were not included. Patient Education Weight Management OUTREACH REPRESENTATIVE: Why it is important to manage your [...] foods. Some examples of high-fat foods include kosovan fries, doughnuts, ice cream, and cakes. ?? [...] on your weight loss goals. ?? Copyright [employer] 2020 Information is for End User's use only and may not be sold, redistributed or otherwise used for commercial purposes. All illustrations and images included in CareNotes?? are the copyrighted property of [employer], [employer]. or [employer] The above information is an counseling aide only. It is not intended as medical advice for individual conditions or treatments. Talk to your doctor, nurse or pharmacist before following any medical regimen to see if it is safe and effective for you. AL SECRETARY documented in this encounter Progress Notes * Manju Rainey DO - 05/20/2020 3:14 PM CST Images from the original note were not included. [facility] [place] [address] . . Telemedicine Note Today's visit was conducted virtually due to COVID-19 countermeasures. The patient has given verbalconsent to have today's visit conducted by this same means with treatment provided remotely. The patient verbally consents to the billing and collection practices of [facility]. Patient location: Home This encounter was performed using: audio and video Time spent direct and indirect care: : 32 minutes Date of encounter: 05/20/2020 Provider: Manju Rainey DO Patient: Deya Campbell CSN: [id number] Specialty: Bariatrics. Date of : 1995 Visit type: Medical weight loss follow up: Telemedicine (398) Audio and visual _x___ Audio only ___ Verbal consent from patient to treat and bill insurance obtained. Yes This 24 year old female patient was referred by self for Medical Weight loss follow up. Bariatric HPI she was seen in clinic last on 04/15/2020. Patient has lost 6 lb from that visit. She has lost a total of 17.5 from her initial visit 02/21/2020. Patient is making Healthy lifestyle modification in both her physical activity and her nutrition. Patient is currently taking vitamin-D replacement. Blood pressures are still running a bit high and she is working on this with her PCP. Today's blood pressure was 138/94. They are considering adding an additional medication for treatment. Reflux has beenstable. She only has occasional reflux and only uses famotidine on as needed basis. Fatty liver followed by PCP and liver and GI specialist. Anxiety is fairly well controlled. She reports that she has a bit lightheadedness with BuSpar at 10 mg 3 times daily. Suggested she may try it at half dose tosee if she has improved symptoms and still control her anxiety. We also discussed ways to deal withanxiety with nonmedical ways such as a relaxation jaqui. Patient has no acute complaints at this time. She is recently recovered from covid a few weeks ago. States that her symptoms have resolved. Activity: Patient is using her exercise bike for about 10 min most days. She is getting a treadmilland feels that she will enjoy using this. She also is doing some YouTube videos. Sleep: 7 hr. Nutrition: Patient is taking multivitamin daily. Breakfast: Protein shake. Lunch: Protein shake andveggies or fruit. Dinner: Meat and vegetables. Fluids: Water, black coffee. Snacks: Yogurt, cheese stick, turkey bites Co morbid conditions: Vitamin-D deficiency, hypertension, hyperlipidemia, reflux, IBS, fatty liver,anxiety GOALS from last visit: 1: Less than 1900 calories per day with 1 or 2 protein meal replacements daily. Meeting goal most days recently. 2. 90+ g protein daily. Meeting goal. 3. 64+ oz fluid daily. Working toward goal. Patient is taking 60 grams of proteins supplements daily. Most days. Patient is taking 48-64 oz of fluid per day. Encouraged to take 64 oz daily Doing YouTube videos, exercise bike,. Plans to get a treadmill from a family member. The patient has lost 6 lb from previous visit and a total of 17.5 lb from her initial visit. Weight History: Initial Weight: 320.7 lb. BMI [...] in lb: -11.5 lb 05/20/2020 Waist Change: Weight: (!) 303 lb 3.2 oz (137.5 kg)(per pt) BMI (Calculated): 54.81 Weight Loss since last visit in lbs : 6 lb Total Wt Loss in lb: 17.5 lb Obesity History Years at current weight? [...] Skinny stix 1 month no wt loss 2017, HCG drops 2 months no wt loss [...] you have an unusual work schedule? na [place] Sleepiness Scale total points: 9 Past Medical [...] file Gets together: Not on file Attends buddhism service: Not on file Active member of [...] Outpatient Medications Marked as Taking for the 05/20/20 encounter (Video Visit) with Kristal Rainey, DO Medication Sig ??? busPIRone (BUSPAR) 10 MG tablet TK 1 T PO BID ??? Ferrous Sulfate (SLOW FE) 142 (45 Fe) MG Patient will start tomorrow. Reasons: Anemia From Inadequate Iron in the Body ??? IBUPROFEN PO ??? losartan (COZAAR) 100 MG tablet Take 100 mg by mouth once daily ??? Paragard Intrauterine Copper IUD ParaGard T 380A 380 square mm intrauterine device Take by intrauterine route. (Not in a hospital admission) Allergies Allergen Reactions ??? Levofloxacin Urticaria and Itching Chest pain, shortness of breath and pain and weakness in legs ??? Cephalexin Rash ??? Nifedipine Other Facial redness, palpitations ??? Labetalol Shortness of Breath ROS: Systemic: negative Psychological ROS: Stress and anxiety improving. Patient is now working from home and feels that this is helping. Ophthalmic ROS: negative ENT ROS: negative Hematological ROS: Vitamin-D deficiency being treated Endocrine ROS: Obesity class 3 improving Respiratory ROS; negative Cardiovascular ROS: Hypertension: Working with PCP for better control GI ROS: Reflux generally stable. Mixed IBS generally stable ROS: negative Musculoskeletal ROS: negative Neurological ROS: negative Dermatological ROS: negative. Objective: Vital Signs: BP 138/94 Ht 5' 2.36 (1.584 m) Wt 303 lb 3.2 oz (137.5 kg) BMI 54.81 kg/m2 Weight: (!) 303 lb 3.2 oz (137.5 kg)(per pt) Height: 5' 2.36 (158.4 cm) Body mass index is 54.81 kg/m??. Constitutional: Alert, awake and oriented without any apparent discomfort. Eyes: Anicteric. Extraocular muscles were intact. Neck Exam: unable Respiratory : unable Cardiovascular: unable Abdomen: unable Skin: Normal color Extremities: unable Neurological: A& O X 3. . Psychiatric: The patient's mood and affect appeared to be appropriate. Patient is neatly dressed. Patient has spontaneous conversation and answers questions appropriately. Patient smiles easily. Patient appears motivated to continue healthy lifestyle modification for continued weight reduction to ahealthier BMI. Labs Recent Labs Component Name 04/12/19 1514 01/02/19 1236 AST 16 20 ALT 12 24 Some lab results will be in paper format so may be scanned in the EMR. Reviewed labs from 04/17/2020 and 05/04/2020 Imaging studies No results found. Some Imaging studies results will be in paper format so may be scanned in the EMR. None to be reviewed today. Assessment and Plan Assessment: ICD-10-CM 1. Obesity, morbid, BMI 50 or higher E66.01 Continued efforts at healthy lifestyle modification with healthy nutrition, increased regular physical activity both aerobic and resistance components and proper sleep discussed at this visit. Goals: 1. Less than 1900 calories per day with 1 or 2 protein meal replacements daily. Patient reports tracking causes increased anxiety. She will do a small plate model for portion control. 2. 90+ g protein daily. 3. 64+ oz fluid daily. 4. 150 min of aerobic activity and 3 days of resistance work weekly. 5. 7.5-9 hours sleep daily. 6. Mindful eating with snacking only if truly hungry. Choose from low-calorie lean protein and produce snacks less than or equal to 100 calories. 2. Vitamin D deficiency E55.9 Continue vitamin-D replacement per protocol. Vitamin-D level to be repeated on completion. 3. Essential hypertension I10 Continue care with PCP. Discussed that blood pressure has to be well controlled prior to considering some of the medications for weight management. 4. Gastroesophageal reflux disease, unspecified whether esophagitis present K21.9 Continue care with PCP. Symptoms stable. Weight reduction may improve reflux symptoms. 5. NAFLD (nonalcoholic fatty liver disease) K76.0 Continue care with PCP and liver specialist. Weight reduction will help improve fatty liver. 6. Anxiety F41.9 Continue care with PCP. Discussed non medication ways to help control anxiety symptoms. Consults and Test ordered or needs follow up: Continue care with PCP and specialist as directed. Follow-up with me in 1 month at patient request. Call or return sooner if any questions concerns orproblems. Follow up: Will see me in 1 month She verbalized understanding and is agreeable to this plan after shared decision making with patient. This encounter with the patient lasted 32 min, including chart prep, patient visit including counseling with the patient regarding increased physical activity, reduced caloric intake, healthy diet and behavioral modifications and documentation of visit. Manju Rainey DO CC: Jonelle Elam MD AL SECRETARY documented in this encounter Plan of Treatment Not on file documented as of this encounter Visit Diagnoses Diagnosis Obesity, morbid, BMI 50 or higher (HCC)- Primary Vitamin D deficiency Essential hypertension Gastroesophageal reflux disease, unspecified whether esophagitis present NAFLD (nonalcoholic fatty liver disease) Other chronic nonalcoholic liver disease Anxiety Anxiety state, unspecified documented in this encounter Care Teams Wafer Mounter Relationship Specialty Start Date End Date Jonelle Elam MD [address] [place] [address] [place] [phone] PCP - General Family Medicine 10/24/18 documented as of this encounter
--- OUTSIDE RECORDS SUMMARY | 2024-04-14 17:45 | XMS_ITS | Encounter Summary ---
Author Organization [facility] Address [address] [place] [address] Care Team Providers Care Annealing Torch Operator Name Role Phone Jonelle Elam MD Primary Care Provider [phone] Reason for Visit * Reason Comments Obesity Follow Up Encounter Details Date Type Department Care Team (Late st Contact Info) Description 03/11/2020 2:00 PM DRAIN CLEANER Video Visit [facility] [address] [place] [phone] Manju Rainey, DO [address] [place], [place] [phone] Obesity, morbid, BMI 50 or higher (HCC) ; NAFLD (nonalcoholic fatty liver disease); Gastroesophageal reflux disease, unspecified whether esophagitis present; Irritable bowel syndrome with both constipation and diarrhea; History of vitamin D deficiency; Essential hypertension; Anxiety Social History Tobacco Use Types Packs/Day [...] - Inhaled Oxygen Concentration - - Weight 139.8 kg (308 lb 3.2 oz) 03/11/2020 1:00 PM DRAIN CLEANER per pt Height 158.4 cm (5' 2.36 ) 03/11/2020 1:00 PM CS T Body Mass Index 55.72 03/11/2020 1:00 PM DRAIN CLEANER documented in this encounter Patient Instructions * Patient Instructions* Manju Rainey, DO - 03/11/2020 4:06 PM DRAIN CLEANER Images from the original note were not included. Patient Education Weight Management GLASSWARE MAKER DEMONSTRATOR: Why it is important to manage your [...] foods. Some examples of high-fat foods include samoan fries, doughnuts, ice cream, and cakes. ?? [...] on your weight loss goals. ?? Copyright [employer] 2019 Information is for End User's use only and may not be sold, redistributed or otherwise used for commercial purposes. All illustrations and images included in CareNotes?? are the copyrighted property of [employer], [employer]. or [employer] The above information is an medication aide only. It is not intended as medical advice for individual conditions or treatments. Talk to your doctor, nurse or pharmacist before following any medical regimen to see if it is safe and effective for you. N CLEANER documented in this encounter Progress Notes * Manju Rainey DO - 03/11/2020 4:05 PM CST Images from the original note were not included. [facility] [place] [address] . . Telemedicine Note Today's visit was conducted virtually due to COVID-19 countermeasures. The patient has given verbalconsent to have today's visit conducted by this same means with treatment provided remotely. The patient verbally consents to the billing and collection practices of [facility]. Patient location: A parked car in a private setting. This encounter was performed using: audio and video Time spent with patient/proxy: Seventeen minutes Date of encounter: 03/11/2020 Provider: Manju Rainey DO Patient: Deya Campbell CSN: [id number] Specialty: Bariatrics. Date of : 1995 Visit type: Medical weight loss follow up: Telemedicine (398) Audio and visual _x___ Audio only ___ Verbal consent from patient to treat and bill insurance obtained. Yes This 24 year old female patient was referred by Jonelle Elam MD for Medical Weight loss follow up. Bariatric HPI she was seen in clinic last on 02/12/2020. Patient has lost 6.9 lb from that visit. Patient is making Healthy lifestyle modification in both her nutrition as well as her physical activity. She has noticed increased energy and feeling better overall. She recently had her blood pressure medicine increased by her PCP. Blood pressures seem to be in the more normal range. Reflux symptoms have been stable. IBS has been ???good?? history of fatty liver: No abdominal pain. Vitamin-D deficiency is going to start vitamin-D replacement dosage when she gets her medicine today. Anxiety seems to be improving. Patient just recently started BuSpar.. Patient has no acute complaints at this time. Patient ispleased with her progress. Activity: Patient has been doing increased walking at work and also doing resistance work 3 days per week. Sleep: Significantly improved with sleep at now 7 hr per night. Had been 3-4 hours. 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 She states that people leave snacks and sodas and bottled water in appreciation for deliveries. Sometimes it is hard to practice stimulus control. Nutrition: Patient is taking her vitamin daily. Also will start vitamin-D. Breakfast: Protein shakeor bar. Lunch: [place] on locale bread. Dinner: Meat, vegetable, cottage cheese. Fluids: Water. Snacks: Fruit or 1/2 of a protein shake. Co morbid conditions: Hypertension, reflux, hyperlipidemia, IBS, fatty liver, vitamin-D deficiency,anxiety GOALS from last visit: 1: Less than 1900 calories per day with 1 or 2 protein meal replacements daily. Tracking intermittently. Meeting goal most days. 2. 90+ g protein daily. Meeting goal. 3. 64+ oz fluid daily. Meeting goal. Patient is taking 30 grams of proteins supplements daily. Patient is taking 100 oz of fluid per day. Doing walking and getting in and out of the delivery truck multiple times per day. Doing resistancework almost daily as well. The patient has lost 6.9 lb from previous visit. Weight History: Initial Weight: 320.7 lb. [...] Total Wt Loss in lb: 12.5 lb Obesity History Years at current weight? [...] you have an unusual work schedule? na [place] Sleepiness Scale total points: 9 Past Medical [...] file Gets together: Not on file Attends presybeterian service: Not on file Active member of [...] Outpatient Medications Marked as Taking for the 03/11/20 encounter (Video Visit) with Kristal Rainey, DO Medication Sig ??? busPIRone (BUSPAR) 10 MG tablet TK 1 T PO BID ??? Ferrous Sulfate (SLOW FE) 142 (45 Fe) MG Patient will start tomorrow. Reasons: Anemia From Inadequate Iron in the Body ??? losartan (COZAAR) 50 MG tablet TK 1 T PO QD ??? vitamin D, ergocalciferol, (DRISDOL) 1.25 MG (28033 UT) capsule Take 1 capsule by mouth every 7days Reasons: Vitamin D Deficiency (Not in a hospital admission) Allergies Allergen Reactions ??? Levofloxacin Urticaria and Itching Chest pain, shortness of breath and pain and weakness in legs ??? Cephalexin Rash ??? Nifedipine Other Facial redness, palpitations ??? Labetalol Shortness of Breath ROS: Systemic: negative Psychological ROS: Anxiety treated. Seems to be improving with BuSpar Ophthalmic ROS: negative ENT ROS: negative Hematological ROS: Vitamin-D deficiency will begin treatment when she picks up her vitamin-D Endocrine ROS: Obesity class 3 improving Respiratory ROS; negative Cardiovascular ROS: Hypertension improving with recent increase in hypertension medications GI ROS: IBS mixed stable ROS: negative Musculoskeletal ROS: negative Neurological ROS: Headaches seem to be improving with better blood pressure control. Dermatological ROS: negative. Objective: Vital Signs: Ht 5' 2.36 (1.584 m) Wt 308 lb 3.2 oz (139.8 kg) BMI 55.72 kg/m2 Weight: (!) 308 lb 3.2 oz (139.8 kg)(per pt) Height: 5' 2.36 (158.4 cm) Body mass index is 55.72 kg/m??. Constitutional: Alert, awake and oriented without any apparent discomfort. Eyes: Anicteric. Extraocular muscles were intact. Neck Exam: unable Respiratory : unable Cardiovascular: unable Abdomen: unable Skin: Normal color. Extremities: unable Neurological: A& O X 3. . Psychiatric: The patient's mood and affect appeared to be appropriate. Patient is neatly dressed. Smiles easily. Answers questions appropriately. Appears motivated to continue healthy lifestyle modification for further weight reduction. Labs Recent Labs Component Name 04/12/19 9912 01/02/19 1236 AST 16 20 ALT 12 24 Some lab results will be in paper format so may be scanned in the EMR. Labs reviewed 03/09/2020.. Imaging studies No results found. Some Imaging [...] 1 or 2 protein meal replacements daily. Continue tracking. Continue small plate model for portion control. 2. 90+ g protein daily. 3. 64+ oz fluid daily 4. Goal for physical activity 150 min of aerobic activity and 3 days of resistance work weekly. 5. 7.5-9 hours sleep daily. 6. Mindful eating with snacking only if truly hungry. Choose from low-calorie lean protein and produce snacks less than or equal to 100 calories. 7. Discussed prevention of Holiday weight gain. 2. NAFLD (nonalcoholic fatty liver disease) K76.0 Continue care with PCP and GI. Weight reduction will help improve fatty liver. 3. Gastroesophageal reflux disease, unspecified whether esophagitis present K21.9 Continue care with PCP and GI. Weight reduction may improve reflux symptoms. 4. Irritable bowel syndrome with both constipation and diarrhea K58.2 Continue care with PCP and GI. 5. History of vitamin D deficiency Z86.39 Continue vitamin-D replacement. Recheck completion in 3 months. 6. Essential hypertension I10 Continue care with PCP. Healthy lifestyle modification and weight reduction may improve blood pressure control. 7. Anxiety F41.9 Continue care with PCP. Optimal management of anxiety may improve compliance with weight management program. Consults and [...] making with patient. This encounter with the paitent lasted 17 min, more than 50% of the time was in video [id number] counseling with the patient regarding increased physical activity, reduced caloric intake, healthy diet and behavioral modifications. Manju Rainey DO CC: Jonelle Elam MD N CLEANER documented in this encounter Plan of Treatment Not on file documented as of this encounter Visit Diagnoses Diagnosis Obesity, morbid, BMI 50 or higher (HCC)- Primary NAFLD (nonalcoholic fatty liver disease) Other chronic nonalcoholic liver disease Gastroesophageal reflux disease, unspecified whether esophagitis present Irritable bowel syndrome with both constipation and diarrhea History of vitamin D deficiency Personal history of nutritional deficiency Essential hypertension Anxiety Anxiety state, unspecified documented in this encounter Care Teams Annealing Torch Operator Relationship Specialty Start Date End Date Jonelle Elam MD [address] [place] [phone] PCP - General Family Medicine 10/24/18 documented as of this encounter
--- OUTSIDE RECORDS SUMMARY | 2024-04-14 17:45 | XMS_ITS | Encounter Summary ---
Author Organization [facility] Address [address] [facility] [place] [address] Care Team Providers Care Coin Machine Operator Name Role Phone Jonelle Elam MD Primary Care Provider Manju Rainey DO Unavailable Reason for Visit * Reason Onset Date Comments LABS ONLY 09/10/2020 Encounter Details Date Type Department Care Team (Late st Contact Info) Description 09/10/2020 Telephone [facility] [address] [place] [phone] Manju Rainey, DO [address] [place] [address] LABS ONLY Social History Tobacco Use Types Packs/Day Years [...] encounter Miscellaneous Notes * Telephone Encounter - Lilia Avendano LPN - 09/10/2020 10:35 AM CDT LMOM for pt to obtain labs prior to appt on 10-01-2020. documented in this encounter Plan of Treatment Not on file documented as of this encounter Visit Diagnoses Not on filedocumented in this encounter Care Teams Coin Machine Operator Relationship Specialty Start Date End Date Jonelle Elam MD [address] [place] [phone] PCP - General Family Medicine 10/24/18 Manju Rainey DO [address] [place] [address] Bariatrics 08/11/20 documented as of this encounter
--- OUTSIDE RECORDS SUMMARY | 2024-04-14 17:45 | XMS_ITS | Encounter Summary ---
Author Organization [facility] Address [address] [place] [address] Care Team Providers Care Cook Specialty Foreign Food Name Role Phone Jonelle Elam MD Primary Care Provider [phone] Manju Rainey DO Unavailable [phone] Encounter Details Date Type Department Care Team (Late st Contact Info) Description 10/26/2020 Orders Only [facility] - [address], [place] [address] Gabriella Moon, RN Liver lesion ; Nonalcoholic fatty liver disease Social History Tobacco Use Types Packs/Day Years [...] documented as of this encounter Results * COMPREHENSIVE METABOLIC PANEL (12/02/2020 2:34 PM CDT) [facility] Signature BUN 12 7 - 26 mg/dL 12/02/2020 3:44 PM [facility] Creatinine 0.63 0.56 - 0.96 mg/dL 12/02/2020 3:44 PM [facility] Sodium 142 136 - 145 mmol/L 12/02/2020 3:44 PM [facility] Potassium 4.0 3.5 - 4.5 mmol/L 12/02/2020 3:44 PM [facility] Chloride 105 98 - 107 mmol/L 12/02/2020 3:44 PM [facility] CO2 25 22 - 29 mmol/L 12/02/2020 3:44 PM [facility] Glucose 88 70 - 115 mg/dL 12/02/2020 3:44 PM [facility] Calcium 9.9 8.4 - 10.2 mg/dL 12/02/2020 3:44 PM [facility] Protein Total 7.2 6.0 - 8.3 g/dL 12/02/2020 3:44 PM [facility] Albumin 4.2 3.4 - 5.0 g/dL 12/02/2020 3:44 PM [facility] Bilirubin Total 0.6 0.2 - 1.2 mg/dL 12/02/2020 3:44 PM [facility] Alkaline Phosphatase 66 40 - 150 U/L 12/02/2020 3:44 PM [facility] ALT 33 5 - 55 U/L 12/02/2020 3:44 PM [facility] AST 19 5 - 34 U/L 12/02/2020 3:44 PM [facility] Anion Gap 16 8 - 18 12/02/2020 3:44 PM [facility] BUN/Creatinine Ratio 19 7 - 23 12/02/2020 3:44 PM CDT [facility] Osmolality Calculated 293 270 - 300 mOsm/kg 12/02/2020 3:44 PM CDT [facility] Albumin/Globulin Ratio 1.4 1.1 - 2.3 12/02/2020 3:44 PM CDT [facility] eGFR by CKD-EPI >90 >=90 mL/min/1.7 3 m2 12/02/2020 3:44 PM CDT [facility] Blood BLOOD SPECIMEN / Unknown Lab Venipuncture / Unknown 12/02/2020 2:34 PM CDT 12/02/2020 3:18 PM CDT Maribel Kitchen MD LAB - CHEMISTRY ORDE RABLES Performing Organization Address City/[facility]/ZIP Co de Phone Number [address] [address], [place] [phone] * PT-INR [facility] (12/02/2020 2:34 PM CDT) PT 13.2 12.1 - 14.8 Seconds 12/02/2020 3:32 PM CDT [facility] INR 1.0 See Comment 12/02/2020 3:32 PM CDT [facility] Comment:The suggested therap eutic range for standard coumadin (warfarin) therapy is an INR of 2.0-3.0. For high-risk patients (Mechanical Mitral Valve Prosthesis, etc.), the suggested prophylactic therapeutic range is an INR of 2.5-3.5. Blood BLOOD SPECIMEN / Unknown Lab Venipuncture / Unknown 12/02/2020 2:34 PM CDT 12/02/2020 3:17 PM CDT Maribel Kitchen MD LAB - COAGULATION OR DERABLES [address] [address], [place] [phone] * (ABNORMAL) CBC WITH DIFFERENTIAL (12/02/2020 2:34 PM CDT) WBC 7.3 3.5 - 10.5 10? 3 /uL 12/02/2020 4:06 PM [facility] RBC 4.82 3.80 - 5.20 10? 6 /uL 12/02/2020 4:06 PM [facility] Hemoglobin 12.6 12.0 - 15.6 g/dL 12/02/2020 4:06 PM [facility] Hematocrit 38.7 35.0 - 45.0 % 12/02/2020 4:06 PM [facility] MCV 80.3(L) 80.7 - 98.3 fL 12/02/2020 4:06 PM [facility] MCH 26.1(L) 26.7 - 34.0 pg 12/02/2020 4:06 PM [facility] MCHC 32.6 30.8 - 35.9 g/dL 12/02/2020 4:06 PM [facility] Platelet Count 196 150 - 400 10? 3 /uL 12/02/2020 4:06 PM [facility] Comment: Occasional platelet clump present on slide. Platelet count appears adequate. This is an appended report. ??These results have been appended to a previously preliminary verified report. RDW-SD 40.4 36.0 - 50.0 fL 12/02/2020 4:06 PM [facility] RDW-CV 13.8 11.2 - 14.8 % 12/02/2020 4:06 PM [facility] MPV 11.2 9.4 - 12.9 fL 12/02/2020 4:06 PM [facility] nRBC Absolute 0.00 0 10? 3 /uL 12/02/2020 4:06 PM [facility] nRBC Auto 0.0 0 /100 WBC 12/02/2020 4:06 PM [facility] Neutrophils % 56.9 35.0 - 70.0 % 12/02/2020 4:06 PM [facility] Lymphocytes % 33.0 20.0 - 43.0 % 12/02/2020 4:06 PM [facility] Monocytes % 7.3 5.0 - 13.0 % 12/02/2020 4:06 PM [facility] Eosinophils % 1.8 0.0 - 6.0 % 12/02/2020 4:06 PM [facility] Basophil % 0.7 0.0 - 2.0 % 12/02/2020 4:06 PM [facility] Neutrophils Absolute 4.2 1.6 - 7.0 10? 3 /uL 12/02/2020 4:06 PM [facility] Lymphocyte Absolute 2.4 1.1 - 3.9 10? 3 /uL 12/02/2020 4:06 PM [facility] Monocytes Absolute 0.53 0.26 - 1.07 10? 3 /uL 12/02/2020 4:06 PM [facility] Eosinophils Absolute 0.13 0.00 - 0.47 10? 3 /uL 12/02/2020 4:06 PM [facility] Basophils Absolute 0.05 0.00 - 0.08 10? 3 /uL 12/02/2020 4:06 PM [facility] Immature Granulocytes % 0.3 0.0 - 1.0 % 12/02/2020 4:06 PM [facility] Immature Granulocytes Absolute 0.02 12/02/2020 4:06 PM [facility] Immature Platelet Fraction 11.1(H) 1.1 - 6.2 % 12/02/2020 4:06 PM [facility] Blood BLOOD SPECIMEN / Unknown Lab Venipuncture / Unknown 12/02/2020 2:34 PM CDT 12/02/2020 3:17 PM CDT Maribel Kitchen MD LAB - HEMATOLOGY ORD ERABLES [facility] [address] [place] [address] [phone] documented in this encounter Visit Diagnoses Diagnosis Liver lesion- Primary Other specified disorders of liver Nonalcoholic fatty liver disease Other chronic nonalcoholic liver disease documented in this encounter Care Teams Cook Specialty Foreign Food Relationship Specialty Start Date End Date Jonelle Elam MD [address] [place] [address] [place] [address] PCP - General Family Medicine 10/24/18 Manju Rainey DO [address] [place] [address] Bariatrics 08/11/20 documented as of this encounter
--- OUTSIDE RECORDS SUMMARY | 2024-04-14 17:45 | XMS_ITS | Encounter Summary ---
Author Organization [facility] Address [address] [place] [address] Care Team Providers Care Utility Bill Collection Clerk Name Role Phone Jonelle Elam MD Primary Care Provider [phone] Reason for Referral * Radiology Services (Routine) - Closed Specialty Diagnoses / Procedures Referred By Contac t Referred To Contact Diagnoses Nonalcoholic fatty liver disease Liver lesion Focal nodular hyperplasia of liver Procedures PROC FIBROSCAN Maribel Kitchen MD [address] [place] [address] Referral ID Status Reason Start Date Expiration Date Visits Re quested Visits Authorized [id number] Closed 04/12/2019 10/09/2019 1 1 LINE INSPECTOR Reason for Visit * Reason Comments Liver Problem Encounter Details Date Type Department Care Team (Late st Contact Info) Description 04/12/2019 2:20 PM PIPE LINE INSPECTOR Office Visit [facility] [address] [place] [address] Maribel Kitchen MD [address] [place] [address] Nonalcoholic fatty liver disease (Primary Dx); Liver lesion; Focal nodular hyperplasia of liver Social History Tobacco Use Types Packs/Day Years [...] Sign Reading Time Taken Comments Blood Pressure 146/87 04/12/2019 2:05 PM PIPE LINE INSPECTOR Pulse 90 04/12/2019 2:05 PM PIPE LINE INSPECTOR Temperature 36.8 ??C (98.3 ??F) 04/12/2019 2:05 PM CS T Respiratory Rate 18 04/12/2019 2:05 PM PIPE LINE INSPECTOR Oxygen Saturation 99% 04/12/2019 2:05 PM PIPE LINE INSPECTOR Inhaled Oxygen Concentration - - Weight 127.6 kg (281 lb 3.2 oz) 04/12/2019 2:05 PM PIPE LINE INSPECTOR Height 152.4 cm (5') 04/12/2019 2:05 PM PIPE LINE INSPECTOR Body Mass Index 54.92 04/12/2019 2:05 PM PIPE LINE INSPECTOR documented in this encounter Progress Notes * Maribel Kitchen MD - 04/12/2019 2:20 PM CST [facility] Maribel Kitchen MD Referring Provider: No ref. provider found PCP: Jonelle Elam MD Interval history and subjective concerns: I had the pleasure of meeting Deya Campbell at the [facility] on 04/12/2019. This is a 23 year old female with history of NAFLD. -She was diagnosed with NAFLD with fibroscan In 2019. -OSH imaging reviewed 01/2019, thought to indeterminate. 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 Interval events: Is 11 weeks . Is trying very hard to eat healthy. Has had meat aversion. Continues to walk 10K steps per day. No other complaints today. Alcohol: Tobacco: Review of Systems: Constitutional: negative for fevers, chill Eyes: negative for visual disturbance ENT: negative for hearing changes Respiratory: negative for shortness of breath Cardiovascular: negative for lower extremity edema, negative for chest pain Gastrointestinal: as per HPI Genitourinary:negative for dysuria Hematologic/lymphatic: negative for easy bruising, bleeding Musculoskeletal: negative for myalgias, arthralgias Neurological: negative for headaches Exam: Wt Readings from Last 3 Encounters: 04/12/19 127.6 kg (281 lb 3.2 oz) 01/02/19 130 kg (286 lb 9.6 oz) 11/05/18 128.5 kg (283 lb 4.8 oz) BP 146/87 Pulse 90 Temp 98.3 ??F (36.8 ??C) (Oral) Resp 18 Ht 1.524 m (5') Wt 127.6 kg (281 lb 3.2 oz) SpO2 99% BMI 54.92 kg/m2 General appearance: normal, alert, no distress, appears stated age Eyes: conjunctivae/corneas clear. Nose: Nares normal. Septum midline. Throat: Lips, mucosa, and tongue normal. Neck: supple, symmetrical, trachea midline Lungs: clear to auscultation bilaterally Heart: RRR, normal S1 and S2, no murmur Abdomen: soft, no masses palpable, non-tender, non-distended, bowel sounds normal Extremities: no ulcers, well perfused, no edema Skin: No rashes or lesions, no jaundice Neuro: Appropriate, oriented x 3 Relevant Laboratories: Recent Labs Component Name 01/02/19 1236 PROT 8.1 ALB 4.5 TBILI 0.8 ALKPHOS 71 ALT 24 AST 20 AGRATIO 1.3 No results for input(s): WBC, HGB, HEMOGLOBIN, HEMATOCRIT, HCT, PLATELET, PLTCOUNT in the last 16128 hours. No results for input(s): INR in the last 06261 hours. Computed MELD-Na score unavailable. Necessary lab results were not found in the last year. Computed MELD score unavailable. Necessary lab results were not found in the last year. Chronic liver disease workup: HCV ab 01/02/19 Nonreactive HBsAg 01/02/19 Nonreactive HBcAb total HBsAb 01/02/19 Nonreactive Hep A total ab 01/02/19 Positive Iron Transferrin Saturation 01/02/19 6% Ferritin AMA 01/02/19 2.3 MEHDI 01/02/19 Negative ASMA 01/02/19 7.5 A1AT 01/02/19 123, MM Ceruloplasmin 01/02/19 42 Last endoscopies: EGD: Colonoscopy: Last imaging: -MRI abd w/wo contrast 11/03/18: Liver is normal size with no hepatic surface nodularity. 4.1 cm lesion in the hepatic dome as well as a 3.2 cm lesion in right hepatic lobe. -CT a/p with contrast 12/18/18: Homogenously enhancing liver mass. Mild sigmoid diverticulosis -MRI 02/14/19: Two observations in hepatic segment 7 an 8 measuring up to 4.3 cm, consistent with FNH. Mild diffuse hepatic steatosis. Liver biopsy/Fibroscan: Fibroscan 11/05/18: Liver stiffness 7.6 kPa, CAP 396 Assessment: 1. NAFLD, based on 11/2018 fibroscan 2. Liver lesions seen on 2019 imaging, repeat MRI at [facility] on 02/2019 shows lesions are c/w with FNH 3. Morbid obesity Recommendations: 1. Vaccination for hepatitis B recommended. Ok to do after she has completed her . 2. Patient counseled at length regarding dietary changes and exercise targeting a sustained 7% to 10% weight loss. ??Treatment should be focused on optimizing control of the metabolic syndrome, whichshould reduce risk of cardiovascular disease and severity of liver disease. ??The use of statin in NAFLD is safe, with no increased risk of drug-induced hepatotoxicity. Recommended for calorie increase of 300 kcal/day for the 2nd trimester and 400 kcal/day for the 3rd trimester. 3. Repeat fibroscan in 1 year. 4. Repeat MRI in February 2020. I have asked her to return for a follow up visit in 1 year. Maribel Kitchen MD Pathology Secretary/Transcriptionist Division of Gastroenterology and Hepatology No orders of the defined types were placed in this encounter. Current Outpatient Medications Medication Sig ??? cyclobenzaprine (FLEXERIL) 10 MG tablet cyclobenzaprine 10 mg tablet Take 1 tablet 3 times a day by oral route for 30 days. ??? LORazepam (ATIVAN) 1 MG tablet lorazepam 1 mg tablet ??? NIFEdipine CR 24hr (ADALAT CC) 30 MG tablet every 24 hours ??? ondansetron (ZOFRAN) 4 MG tablet ondansetron HCl 4 mg tablet TK 1 T PO Q 6 H PRF NAUSEA/VOMITING ??? Vit-Fe Fumarate-FA ( VITAMIN PO) Take 1 tablet by mouth once daily ??? raNITIdine (ZANTAC) 150 MG tablet ranitidine 150 mg tablet No current facility-administered medications for this visit. LINE INSPECTOR documented in this encounter Plan of Treatment Not on file documented as of this encounter Results * PROC FIBROSCAN (02/03/2020 2:23 PM PIPE LINE INSPECTOR) Narrative Tejas Smith MD - 02/03/2020 2:23 PM PIPE LINE INSPECTOR Tejas Smith MD ? 02/07/2020 11:02 PM [...] patients with nonalcoholic fatty liver disease. Gastroenterology 2019;156:7364-5261. Tammi MS, Rae R, Van Carlos Alberto [...] improved by also calculating the FIB4 score (Jakeyduke et al. Hepatology [employer] 2019;3:9362-5972) or NAFLD Fibrosis score (Johnstno et al. Clinical Gastroenterology and Hepatology 2019;17:9578-9830. from routine clinical data. 3. Liver stiffness [...] change as additional supporting data becomes available. [email or web address]-[email or web address]-[email or web address] Maribel Kitchen MD PROCEDURE/MINOR SURG ICAL ORDERABLES * (ABNORMAL) HEPATIC FUNCTION PANEL (04/12/2019 3:14 PM PIPE LINE INSPECTOR) Protein Total 7.8 6.0 - 8.3 g/dL 020 4:02 PM [facility] Albumin 3.9 3.4 - 5.0 g/dL 04/12/2019 4:02 PM [facility] Bilirubin Total 0.7 0.2 - 1.2 mg/dL 04/03 4:02 PM [facility] Bilirubin Conjugated 0.2 0.0 - 0.5 mg/dL 04/12/2019 4:02 PM [facility] Bilirubin Unconjugated 0.5 Unconjugated Bilirubin is a calculated value: Reference ranges have not been established. mg/dL 04/12/2019 4:02 PM [facility] Alkaline Phosphatase 55 40 - 150 Units/L 04/12/2019 4:02 PM [facility] ALT 12 0 - 55 Units/L 04/12/2019 4:02 PM [facility] AST 16 5 - 34 Units/L 04/12/2019 4:02 PM [facility] Albumin/Globulin Ratio 1.0(L) 1.1 - 2.3 04/12/2019 4:02 PM [facility] Blood BLOOD SPECIMEN / Unknown Lab Venipuncture / Unknown 04/12/2019 3:14 PM PIPE LINE INSPECTOR 04/12/2019 3:26 PM PIPE LINE INSPECTOR Maribel Kitchen MD LAB - CHEMISTRY KACY HICKS [facility] Organization Address City/State/ZIP Co de Phone Number [address] [phone] documented in this encounter Visit Diagnoses Diagnosis Nonalcoholic fatty liver disease- Primary Other chronic nonalcoholic liver disease Liver lesion Other specified disorders of liver Focal nodular hyperplasia of liver Other specified disorders of liver Nonalcoholic fatty liver disease- Primary Other chronic nonalcoholic liver disease Liver lesion Other specified disorders of liver Focal nodular hyperplasia of liver Other specified disorders of liver documented in this encounter Care Teams Utility Bill Collection Clerk Relationship Specialty Start Date End Date Jonelle Elam MD [address] [place] [address] [place] [address] PCP - General Family Medicine 10/24/18 documented as of this encounter
--- OUTSIDE RECORDS SUMMARY | 2024-04-14 17:45 | XMS_ITS | Encounter Summary ---
Author Organization [facility] Address [address] [place] [address] Care Team Providers Care Engineering Technology Instructor Name Role Phone Jonelle Elam MD Primary Care Provider [phone] Manju Rainey DO Unavailable [phone] Reason for Visit * Radiology Services (Routine) - Closed Specialty Diagnoses / Procedures Referred By Ritika bonner Referred To Contact Magnetic Resonance Imaging / MRI Procedures MRI ABDOMEN WWO CONTRAST Antonette Roy, CLAY MODELER-TOP CUTTER [address] [place] [address] [facility] [address] [place] [address] Referral ID Status Reason Start Date Expiration Date Visits Re quested Visits Authorized [id number] Closed 12/02/2020 03/02/2021 1 1 Encounter Details Date Type Department Care Team (Latest Contact Info) Description 01/19/2021 4:59 PM CDT - 01/19/2021 11:59 PM CDT Hospital Encounter [facility] [place] [address] [place] [address] Antonette Roy, CLAY MODELER-TOP CUTTER [address] [place] [address] Discharge Disposition: Home or Self Care Social [...] have Coronavirus / COVID-19? No / Unsure 01/01/2021 2:49 PM CDT documented as of this encounter Medications at Time of Discharge Medication Sig Dispensed Refills Start Date End Date vitamin D, cholecalciferol, 50 MCG (1999 UT) tablet Take 1 (one) tablet by mouth once daily ascorbic acid (VITAMIN C) 500 MG tablet Take 1 (one) tablet by mouth 2 times daily for 90 days 60 tablet 2 12/04/2020 03/04/2021 escitalopram (LEXAPRO) 10 MG tablet Take 10 mg by mouth once daily 10/30/2020 04/22/2022 ferrous sulfate 325 (65 FE) MG tablet Take 1 (one) tablet by mouth once daily for 90 days 30 tablet 2 12/04/2020 03/04/2021 losartan (COZAAR) 100 MG tablet Take 100 mg by mouth once daily 04/01/2020 07/01/2021 Multiple Vitamin (MULTIVITAMIN PO) Take 1 tablet by mouth once daily 07/01/2021 pantoprazole EC (PROTONIX) 40 MG tabletIndications:[place] stroesophageal Reflux Disease Take 1 (one) tablet by mouth once daily Reasons: Gastroesophageal Reflux Disease 90 tablet 1 12/30/2020 02/09/2021 Paragard Intrauterine Copper IUD ParaGard T 380A 380 square mm intrauterine device Take by intrauterine route. 11/03/2021 topiramate (TOPAMAX) 50 MG tablet Take 100 mg by mouth once daily 02/09/2021 vitamin D, ergocalciferol, (DRISDOL) 1.25 MG (67715 UT) capsuleIndications:V itamin D Deficiency Take 1 (one) capsule by [...] Diagnosis Comments MRI ABDOMEN WWO CONTRAST Routine 01/19/2021 6:22 PM CDT Liver lesion documented in this encounter Results * MRI [...] and spleen are unremarkable. Procedure Note Otto Mcnael MD - 01/20/2021 MRI ABDOMEN WITH AND [...] (Eovist) injection Intravenous, CONTRAST ONCE, Starting on Mon01/19/21 at 1759, Until Mon01/20/21 at 0142 $ Given - Contrast 01/19/2021 5:59 PM CDT 10 mL documented in this encounter Care Teams Engineering Technology Instructor Relationship Specialty Start Date End Date Jonelle Elam MD [address] [place] [address] PCP - General Family Medicine 10/24/18 Manju Rainey DO [address] [place] [address] Bariatrics 08/11/20 documented as of this encounter
--- OUTSIDE RECORDS SUMMARY | 2024-04-14 17:45 | XMS_ITS | Encounter Summary ---
Author Organization [facility] Address [address] [place] [address] Care Team Providers Care Food Product Inspector Name Role Phone Jonelle Elam MD Primary Care Provider [phone] Encounter Details Date Type Department Care Team (Late st Contact Info) Description 03/11/2020 Orders Only [facility] Weight Management Services [address] [place] [phone] Manju Rainey, [address] [place], [place] [id number] Vitamin D deficiency Social History Tobacco Use Types Packs/Day Years Used Date Smoking Tobacco: Never Smokeless Tobacco: Never Alcohol Use Standard Drinks/Week Comments Not Currently 0 (1 standard drink = 0.6 oz pur e alcohol) Sex and Gender Information Value Date Recorded Sex Assigned at Not on file Gender Identity Not on file Sexual Orientation Not on file documented as of this encounter Progress Notes * Arianna Godfrey LPN - 03/11/2020 8:13 AM CST Patient aware of vit d results, new script and repeat lab after completion. She voices understanding and agrees with plan. ER OCEAN YACHT documented in this encounter Plan of Treatment Not on file documented as of this encounter Visit Diagnoses Diagnosis Vitamin D deficiency- Primary documented in this encounter Care Teams Food Product Inspector Relationship Specialty Start Date End Date Jonelle Elam MD [address] [place] [address] [place] [phone] PCP - General Family Medicine 10/24/18 documented as of this encounter
--- OUTSIDE RECORDS SUMMARY | 2024-04-14 17:45 | XMS_ITS | Encounter Summary ---
Author Organization [facility] Address [address] [facility] [place] [address] Care Team Providers Care District Plant Supervisor Name Role Phone Jonelle Elam MD Primary Care Provider Encounter Details Date Type Department Care Team (Latest Contact Info) Description 04/17/2020 Travel Social History Tobacco Use Types Packs/Day [...] COVID-19? No / Unsure 04/17/2020 2:31 PM HEALTH DIRECTOR documented as of this encounter Plan of Treatment Not on file documented as of this encounter Visit Diagnoses Not on filedocumented in this encounter Care Teams District Plant Supervisor Relationship Specialty Start Date End Date Jonelle Elam MD [address] [place] [address] [place] [phone] PCP - General Family Medicine 10/24/18 documented as of this encounter
--- OUTSIDE RECORDS SUMMARY | 2024-04-14 17:45 | XMS_ITS | Encounter Summary ---
Author Organization [facility] Address [address] [facility] [place] [address] Care Team Providers Care Manager Decision Support Name Role Phone Jonelle Elam MD Primary Care Provider [phone] Manju Rainey DO Unavailable [phone] Reason for Visit * Reason Comments Bariatric Surgery Pre-op Instruction Encounter Details Date Type Department Care Team (Late st Contact Info) Description 01/19/2021 9:30 AM CDT Office Visit [facility] [address] [place] [id number] Carmen Lee, JUNIOR LEGAL SECRETARY-CONTENT DESIGNER [address] [place] [address] BMI 50.0-59.9, adult (HCC) (Primary Dx); Class 3 severe obesity due to excess calories with serious comorbidity and body mass index (BMI) of 50.0 to 59.9 in adult (HCC); Pre-op evaluation; Gastroesophageal reflux disease without esophagitis; Vitamin D [...] Sign Reading Time Taken Comments Blood Pressure 126/86 01/19/2021 9:00 AM CDT Pulse 80 01/19/2021 9:00 AM CDT Temperature 36.7 ??C (98 ??F) 01/19/2021 9:00 AM CDT Respiratory Rate 18 01/19/2021 9:00 AM CDT Oxygen Saturation 100% 01/19/2021 9:00 AM CDT Inhaled Oxygen Concentration - - Weight 142.2 kg (313 lb 6.4 oz) 01/19/2021 9:00 AM CDT Height 157.5 cm (5' 2 ) 01/19/2021 9:00 AM CDT Body Mass Index 57.32 01/19/2021 9:00 AM CDT documented in this encounter Patient Instructions * Patient Instructions* Eloy Jordan LPN - 01/19/2021 9:09 AM CDT It is important to keep all scheduled appointments to be successful in you weight loss journey. If an appointment does not work with your schedule please reschedule as soon as you can. We want to help you to our fullest ability to be successful with your weight loss. documented in this encounter Progress Notes * Carmen Lee APRN-JOSETTE - 01/19/2021 9:29 AM CDT Images from the original note were not included. [facility] [address] [address] PH: [phone] , Date of encounter: 01/19/2021 Provider: Carmen Lee APRN-CONTENT DESIGNER Patient: Deya Campbell CSN: [id number] Specialty: Bariatric Surgery Date of : 1995 Visit type: Bariatrics Pre-operative follow up Deya Campbell 25 year old female, who is mutual patient with Jonelle Elam MD in our office forBariatric Pre Operative Follow up. Bariatric Preop HPI Patient is in office today for Bariatric Pre Operative Follow up. Patient has requested Laparoscopic sleeve gastrectomy. Patient is attending support group meeting; number of support group meetings attended /3. Patient is taking 60 grams of protein supplements daily. Patient is taking 64-70 oz of water per day. Patient is engaged in working out once weekly and ADL's. The patient has not been participating in NExT program. Patient was initially evaluated for BIV by Dr. Rain Claros in January 2020; she continued following with [facility] until March 2020 when she began following up with Dr.Esther Rainey whom she followed with until October 2020 at which time she requested to be seen by Dr. Bojorquez at [facility]. Patient is non-smoker, reports she has done informational session in past prior to seeing Dr. Claros. Weight change as in weight history below. [...] Total Wt Loss in lb: +0.4 lb Obesity History Years at current weight? [...] injections ??? Migraines ??? Morbid obesity ??? depression baby blues [...] Outpatient Medications Marked as Taking for the 01/19/21 encounter (Office Visit) with Carmen Lee APRN-JOSETTE Medication Sig ??? ascorbic acid (VITAMIN C) [...] by mouth once daily ??? pantoprazole EC (PROTONIX) 40 MG tablet Take 1 (one) tablet by mouth once daily Reasons: Gastroesophageal Reflux Disease ??? Paragard Intrauterine Copper IUD ParaGard T 380A 380 square mm intrauterine device Take by intrauterine route. ??? topiramate (TOPAMAX) 50 MG tablet Take 100 mg by mouth once daily ??? vitamin D, cholecalciferol, 50 MCG (2000 UT) tablet Take 2,000 Units by mouth once daily ??? vitamin D, ergocalciferol, (DRISDOL) 1.25 MG (91784 UT) capsule Take 1 (one) capsule by mouth every 7 days Reasons: Vitamin D Deficiency Allergies Allergen Reactions ??? Levofloxacin Urticaria and Itching Chest pain, shortness of breath and pain and weakness in legs ??? Cephalexin Rash ??? Nifedipine Other Facial redness, palpitations ??? Labetalol Shortness of Breath Review of Systems Constitutional: Negative for chills and fever. Respiratory: Negative for shortness of breath. Cardiovascular: Negative for chest pain. Gastrointestinal: Positive for heartburn (reports I stay away from my trigger foods . Intermittentepisodes. Currently taking pantoprazole daily. ). Negative for abdominal pain, constipation, diarrhea, nausea and vomiting. Objective: Vital Signs: BP 126/86 Pulse 80 Temp 98 ??F (36.7 ??C) Resp 18 Ht 5' 2 (1.575 m) Wt 313 lb 6.4 oz (142.2 kg) SpO2 100% BMI 57.32 kg/m2 Weight: (!) 313 lb 6.4 oz (142.2 kg) Height: 5' 2 (157.5 cm) Body mass index is 57.32 kg/m??. Physical Exam Constitutional: General: She is not in acute distress. Appearance: She is obese. She is not ill-appearing. HENT: Head: Normocephalic and atraumatic. Pulmonary: Effort: Pulmonary effort is normal. No respiratory distress. Abdominal: Comments: Could not palpate liver in lower right quadrant Musculoskeletal: General: No swelling or deformity. Normal range of motion. Cervical back: Normal range of motion. Neurological: Mental Status: She is alert and oriented to person, place, and time. Motor: No weakness. Gait: Gait normal. Psychiatric: Mood and Affect: Mood normal. Behavior: Behavior normal. Thought Content: Thought content normal. Judgment: Judgment normal. Labs Some lab results will be in paper format so may be scanned in the EMR. Imaging studies Some Imaging studies results will be in paper format so may be scanned in the EMR. Assessment and Plan (Z68.43) BMI 50.0-59.9, adult (primary encounter diagnosis) (E66.01, Z68.43) Class 3 severe obesity due to excess calories with serious comorbidity and body mass index (BMI) of 50.0 to 59.9 in adult (Z01.818) Pre-op exam Patient has a 3 - 6 month mandated supervised diet requirement as per insurance company and patienthas completed 3/3-6 months. Will plan for Laparoscopic sleeve gastrectomy contingent to satisfactory diagnostic workup and consultants evaluation. Once clinical and insurance company requirements are met, case will be submittedto the insurance company for final approval and patient will be scheduled for procedure. Meanwhile,patient will continue lifestyle changes, attended support group meetings and physical exercises. ---Patient is NOT a candidate for outpatient sleeve per Dr. Bojorquez's guidelines as patient IS NOT vaccinated, BMI is 57 and she has untreated MOOSE. (K21.9) Gastroesophageal reflux disease without esophagitis Reports that she does experience reflux - reports related to intake of red sauce (tomato based). Currently takes pantoprazole 40 mg PO daily. (E55.9) Vitamin D deficiency Currently taking vitamin-D supplement 2000 units by mouth daily and Ergocalciferol 50,000 units by mouth once weekly. Vitamin-D level obtained on 10/17/2020 showed vitamin-D level at 20. Will monitorpost op labs at 3 months, 6 months and one year. (I10) Essential hypertension Currently takes losartan for management. BP at today's visit was 126/86. Will defer to primary careprovider for continued monitoring and management. (K76.0) NAFLD (nonalcoholic fatty liver disease) Patient follows with Dr. Maribel Kitchen, manager plan, at [facility]; per previous scan liver shows changesquestionable for cirrhosis. Patient reported at previous visit that Dr. Kitchen recommended liver biopsy. She will continue to follow with hepatology for continued monitoring and management. (Z86.39) History of iron deficiency Lab done 10/17/2020 showed iron remained low 27.90. She is currently taking ferrous sulfate 325 mg by mouth daily along with vitamin C 500 mg by mouth twice daily. Will monitor postoperatively at 3 months, 6 months in 1 year. (K58.2) Irritable bowel syndrome with both constipation and diarrhea Will defer to primary care provider / tenant coordinator for continued monitoring and management. (F43.23) Adjustment disorder with mixed anxiety and depressed mood Currently takes Escitalopram for management. Will defer to primary care provider for continued monitoring and management. (G47.33) Obstructive sleep apnea Patient reports having [...] per week with 2-4 days of resistance. Consults and Test ordered or needs follow up: N/A at today's visit. Follow up: One month with provider and RD. 20 minutes was spent with patient. More than 50% of the time was spent in education and counseling. She verbalized understanding and is agreeable to this plan after shared decision making with patient. PARAS Cervantes CC: Jonelle Elam MD documented in this encounter Plan of [...] (BMI) of 50.0 to 59.9 in adult (HCC) Pre-op evaluation Preoperative examination, unspecified Gastroesophageal reflux disease without [...] (pediatric) documented in this encounter Care Teams Manager Decision Support Relationship Specialty Start Date End Date Jonelle Elam MD [address] [place] [address] [place] [phone] PCP - General Family Medicine 10/24/18 Manju Rainey DO [address] [place] [address] Bariatrics 08/11/20 documented as of this encounter
--- OUTSIDE RECORDS SUMMARY | 2024-04-14 17:45 | XMS_ITS | Encounter Summary ---
Author Organization [facility] Address [address] [place] [address] Care Team Providers Care Field Mechanic Name Role Phone Jonelle Elam MD Primary Care Provider [phone] Manju Rainey DO Unavailable Encounter Details Date Type Department Care Team (Latest Contact Info) Description 01/01/2021 Travel Social History Tobacco Use Types Packs/Day [...] on filedocumented in this encounter Care Teams Field Mechanic Relationship Specialty Start Date End Date Jonelle Elam MD [address] [place] [address] [place] [address] PCP - General Family Medicine 10/24/18 Manju Rainey DO [address] [place] [address] Bariatrics 08/11/20 documented as of this encounter
--- OUTSIDE RECORDS SUMMARY | 2024-04-14 17:45 | XMS_ITS | Encounter Summary ---
Author Organization [facility] Address [address] [facility] [place] [address] Care Team Providers Care Automotive Diagnostic Technician Name Role Phone Jonelle Elam MD Primary Care Provider Manju Rainey DO Unavailable [phone] Reason for Visit * Reason Comments Bariatric Surgery Pre-op Instruction Encounter Details Date Type Department Care Team (Late st Contact Info) Description 12/30/2020 9:00 AM CDT Office Visit [facility] [address] [place] [phone] Carmen Lee, MD OPHTHALMOLOGIST-SUSTAINABILITY COMMUNICATOR [address] [place] [address] BMI 50.0-59.9, adult (HCC) (Primary Dx); Class 3 severe obesity due to excess calories with serious comorbidity and body mass index (BMI) of 50.0 to 59.9 in adult (HCC); Pre-op exam; Gastroesophageal reflux disease without esophagitis; Vitamin D deficiency; Essential hypertension; NAFLD (nonalcoholic fatty liver disease); History of iron deficiency; Adjustment disorder with mixed anxiety and depressed [...] have Coronavirus / COVID-19? No / Unsure 12/02/2020 1:09 PM CDT documented as of this encounter Last Filed Vital Signs Vital Sign Reading Time Taken Comments Blood Pressure 146/89 12/30/2020 8:00 AM CDT Pulse 84 12/30/2020 8:00 AM CDT Temperature 36.8 ??C (98.2 ??F) 12/30/2020 8:00 AM CD T Respiratory Rate 18 12/30/2020 8:00 AM CDT Oxygen Saturation 100% 12/30/2020 8:00 AM CDT Inhaled Oxygen Concentration - - Weight 141.2 kg (311 lb 3.2 oz) 12/30/2020 8:00 AM CDT Height 157.5 cm (5' 2 ) 12/30/2020 8:00 AM CDT Body Mass Index 56.92 12/30/2020 8:00 AM CDT documented in this encounter Patient Instructions * Patient Instructions* Eloy Jordan LPN - 12/30/2020 8:47 AM CDT It is important to keep all scheduled appointments to be successful in you weight loss journey. If an appointment does not work with your schedule please reschedule as soon as you can. We want to help you to our fullest ability to be successful with your weight loss. documented in this encounter Progress Notes * Carmen Lee, AKUA-JOSETTE - 12/30/2020 8:59 AM CDT Images from the original note were not included. [facility] [address] [address] PH: [phone] , Date of encounter: 12/30/2020 Provider: Carmen Lee APRN-SUSTAINABILITY COMMUNICATOR Patient: Deya Campbell [facility]: [id number] Specialty: Bariatric Surgery Date of : 1995 [...] meeting; number of support group meetings attended 2/3. Patient is taking 30 grams of protein supplements daily. Patient is taking 64-70 oz of water per day. Patient is engaged in 60 minutes 2 days per week at gym. The patient has not been participating in NExT program. Patient was initially evaluated for BIV by Dr. Rain Claros in January 2020; she continued following with [facility] until March 2020 when she began following up with Dr.Esther Rainey whom she followed with until October 2020 at which time she requested to be seen by Dr. Bojoqruez at [facility]. Patient is non-smoker, reports she has done [...] Total Wt Loss in lb: 1.8 lb Obesity History Years at current weight? [...] liver disease, nonalcoholic ??? Lumbar herniated disc 2014 Previously had physicial therapy and injections ??? Migraines ??? Morbid obesity ??? 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 Sleep apnea Has not had a sleep study Past Surgical History: Procedure Laterality Date ??? Cataract Removal Left 2018 artificial lens ??? Tonsillectomy and Adenoidectomy 2003 ??? Tympanostomy 2001, 2002 Social History Socioeconomic [...] Social Determinants of Health Financial Resource Strain: ??? Difficulty of Paying Living Expenses: Not on file Food Insecurity: ??? Worried About Running Out of Food in the Last Year: Not on file ??? Ran Out of Food in the Last Year: Not on file Transportation Needs: ??? Lack of Transportation (Medical): Not on file ??? Lack of Transportation (Non-Medical): Not on file Physical Activity: ??? Days of Exercise per Week: Not on file ??? Minutes of Exercise per Session: Not on file Stress: ??? Feeling of Stress : Not on file Social Connections: ??? Frequency of Communication with Friends and Family: Not on file ??? Frequency of Social Gatherings with Friends and Family: Not on file ??? Attends Zoroastrian Services: Not on file ??? Active Member of Clubs or Organizations: Not on file ??? Attends Club or Organization Meetings: Not on file ??? Marital Status: Not on file Intimate Partner Violence: ??? Fear of Current or Ex-Partner: Not on file ??? Emotionally Abused: Not on file ??? Physically Abused: Not on file ??? Sexually Abused: Not on file Housing Stability: ??? Unable to Pay for Housing in the Last Year: Not on file ??? Number of Places Lived in the Last Year: Not on file ??? Unstable Housing in the Last Year: Not on file Family History Problem Relation [...] Outpatient Medications Marked as Taking for the 12/30/20 encounter (Office Visit) with Carlee Lee APRN-JOSETTE Medication Sig ??? ascorbic acid [...] ??? vitamin D, ergocalciferol, (DRISDOL) 1.25 MG (75987 UT) capsule Take 1 (one) capsule by [...] nausea and vomiting. Objective: Vital Signs: BP 146/89 Pulse 84 Temp 98.2 ??F (36.8 ??C) Resp 18 Ht 5' 2 (1.575 m) Wt 311 lb 3.2 oz (141.2 kg) SpO2 100% BMI 56.92 kg/m2 Weight: (!) 311 lb 3.2 oz (141.2 kg) Height: 5' 2 (157.5 cm) Body mass index is 56.92 kg/m??. Physical Exam Constitutional: General: She is not in acute distress. Appearance: She is obese. She is not ill-appearing. HENT: Head: Normocephalic and atraumatic. Pulmonary: Effort: Pulmonary effort is normal. No respiratory distress. Abdominal: General: There is no distension. Palpations: Abdomen is soft. There is no mass. Tenderness: There is no abdominal tenderness. There is no guarding or rebound. Hernia: No hernia is present. Comments: Could not palpate liver in lower [...] as per insurance company and patienthas completed 2/3-6 months. Will plan for Laparoscopic sleeve gastrectomy contingent to satisfactory diagnostic workup and consultants evaluation. Once clinical and insurance company requirements are met, case will be submittedto the insurance company for final approval and patient will be scheduled for procedure. Meanwhile,patient will continue lifestyle changes, attended support group meetings and physical exercises. (K21.9) Gastroesophageal reflux disease without esophagitis Reports [...] for management. BP at today's visit was 146/89. Will defer to primary careprovider for continued monitoring and management. (K76.0) NAFLD (nonalcoholic fatty liver disease) Patient follows with Dr. Maribel Kitchen, clinical outcomes manager, at [facility]; per previous scan liver shows changesquestionable for cirrhosis. Patient reported at previous visit that Dr. Kitchen recommended liver biopsy. She will continue to follow with hepatology for continued monitoring and management. (Z86.39) History of iron deficiency Lab done 10/17/2020 showed iron remained low 27.90. She is currently taking ferrous sulfate 325 mg by mouth. Will monitor his postoperatively at 3 months, 6 months in 1 year. (K58.2) Irritable bowel syndrome with both constipation and diarrhea Will defer to primary care provider for continued monitoring and management. (F43.23) Adjustment [...] up: N/A at today's visit. Follow up: Pre surgery with Dr. Bojorquez. Patient is NOT candidate for outpatient sleeve as she has untreated sleep apnea and BMI of 56. 20 minutes was spent with patient. More [...] 50.0 to 59.9 in adult (HCC) Pre-op exam Preoperative examination, unspecified Gastroesophageal reflux disease without esophagitis Esophageal reflux Vitamin D deficiency Essential hypertension NAFLD (nonalcoholic fatty liver disease) Other chronic nonalcoholic liver disease History of iron deficiency Personal history of diseases of blood and blood-forming organs Adjustment disorder with mixed anxiety and depressed mood Obstructive sleep apnea syndrome Obstructive sleep apnea (adult) (pediatric) documented in this encounter Care Teams Automotive Diagnostic Technician Relationship Specialty Start Date End Date Jonelle Elam MD [address] [place] [address] [place] [phone] PCP - General Family Medicine 10/24/18 Manju Rainey DO [address] [place] [address] Bariatrics 08/11/20 documented as of this encounter
--- OUTSIDE RECORDS SUMMARY | 2024-04-14 17:45 | XMS_ITS | Encounter Summary ---
Author Organization [facility] Address [address] [place] [address] Care Team Providers Care Precision Lens Grinder Name Role Phone Jonelle Elam MD Primary Care Provider [phone] Manju Rainey DO Unavailable [phone] Reason for Referral * Radiology Services (Routine) - Closed Specialty Diagnoses / Procedures Referred By Ritika bonner Referred To Contact MRI Diagnoses Liver lesion Procedures MRI ABDOMEN WWO CONTRAST Maribel Kitchen MD [address] [place] [address] [facility] [address] [place] [address] Referral ID Status Reason Start Date Expiration Date Visits Re quested Visits Authorized [id number] Closed 10/14/2021 01/12/2022 1 1 Encounter Details Date Type Department Care Team (Late st Contact Info) Description 01/28/2021 Orders Only [facility] - [facility] [address] [facility] [place] [address] Gabriella Moon, RN Liver lesion Social History Tobacco Use Types [...] steatosis. Report dictated by Abran Farr MD (residential solar sales consultant). This report was approved ??by Abran Farr [...] steatosis. Report dictated by Abran Farr MD (residential solar sales consultant). This report was approved by Abran Farr on 10/22/2021 2:40 PM . I, Dr. DAGOBERTO HANSEN have personally reviewed and interpreted this examination/study. This report was electronically signed by DAGOBERTO HANSEN on 10/22/2021 2:44PM . Maribel Kitchen MD MR ORDERABLES documented in this encounter Visit Diagnoses Diagnosis Liver lesion- Primary Other specified disorders of liver Liver lesion Other specified disorders of liver documented in this encounter Care Teams Precision Lens Grinder Relationship Specialty Start Date End Date Jonelle Elam MD [address] [place] [address] [place] [id number] PCP - General Family Medicine 10/24/18 Manju Rainey DO [address] [place] [address] Bariatrics 08/11/20 documented as of this encounter
--- OUTSIDE RECORDS SUMMARY | 2024-04-14 17:45 | XMS_ITS | Encounter Summary ---
Author Organization [facility] Address [address] [place] [address] Care Team Providers Care Access Coordinator Name Role Phone Jonelle Elam MD Primary Care Provider [phone] Reason for Referral * Consult, Test & Treat (Routine) - Closed Specialty Diagnoses / Procedures Referred By Contac t Referred To Contact Diagnoses Maternal morbid obesity, antepartum (HCC) Supervision of high-risk of young multigravida (HCC) Chronic hypertension affecting (HCC) History of delivery Procedures MATERNAL MEDICINE CONSULT Taurus Maldonado MD [address] [place] [address] Referral ID Status Reason Start Date Expiration Date Visits Re quested Visits Authorized [id number] Closed 08/27/2019 02/23/2020 1 1 Reason for Visit * Reason Comments Consultation * Evaluate & Treat (Routine) - Closed Specialty Diagnoses / Procedures Referred By Contac t Referred To Contact Maternal Medicine Diagnoses Obesity complicating , unspecified trimester (HCC) Liver disease, unspecified Fatty (change of) liver, not elsewhere classified Procedures AL FULL ROUT OBSTE CARE,VAGINAL DELIV Taurus Maldonado MD [address] [place] [address] [facility] [address] [place] [address] Referral ID Status Reason Start Date Expiration Date Visits Re quested Visits Authorized [id number] Closed 06/05/2019 12/02/2019 20 20 Encounter Details Date Type Department Care Team (Latest Contact Info) Description 08/28/2019 9:41 AM CDT - 08/28/2019 11:59 PM CDT Hospital Encounter [facility] [address] [id number] Mahad Aleman MD [address] [place] [address] Discharge Disposition: Home or Self Care Social [...] Sign Reading Time Taken Comments Blood Pressure 130/76 08/28/2019 10:25 AM CDT Pulse 97 08/28/2019 10:25 AM CDT Temperature 36.3 ??C (97.4 ??F) 08/28/2019 10:25 AM C DT Respiratory Rate - - Oxygen Saturation - - Inhaled Oxygen Concentration - - Weight 138.8 kg (306 lb) 08/28/2019 10:25 AM CDT Height - - Body Mass Index 59.76 08/14/2019 1:47 PM CDT documented in this encounter Medications at Time of Discharge Medication Sig Dispensed Refills Start Date End Date amoxicillin (AMOXIL) 500 MG capsule Take 1 capsule by mouth 3 times daily for 7 days 21 capsule 08/28/2019 09/04/2019 aspirin EC (ECOTRIN) 81 MG tabletIndications:Pre eclampsia Take 162 mg by mouth once daily Reasons: Increased Blood Pressure and Edema During 03/11/2020 Ferrous Sulfate (SLOW FE) 142 (45 Fe) MGIndications:Iron Deficiency Anemia Patient will start tomorrow. Reasons: Anemia From Inadequate Iron in the Body 12/04/2020 folic acid (FOLVITE) 1 MG tabletIndications:obe sity in Take 1 tablet by mouth once daily Reasons: obesity in 90 tablet 11 06/05/2019 02/12/2020 Vit-Fe Fumarate-FA ( VITAMIN PO) Take 1 tablet by mouth once daily 02/12/2020 raNITIdine (ZANTAC) 150 MG tablet ranitidine 150 mg tablet 10/12/2018 02/12/2020 riboflavin 100 MG tabletIndications:Abdulaziz quent Headaches Take 4 tablets by mouth once daily Reasons: Frequent Headaches 120 tablet 11 06/05/2019 02/12/2020 documented as of this encounter Progress Notes * Ailyn Mendieta RN - 08/28/2019 9:45 AM CDT Patient here for follow up visit with GEMMA Edwards for CHTN AT 30w6d. Patient reports positive movement. Denies cramping, contractions, bleeding, and leakage of fluid. Patient denies headache, epigastric pain and visual changes. VS per flowsheet. Patient reports BP log on phone today from 08/17/19-08/26/19= 126/65,138/76,115/80,124/67,121/58,119/81,124/58,140/92,129/80,117/78. Patient reports calling dentist this week and was unable to be seen as offices are closed due to covid. Patient reports tylenol and ambesol for pain relief. Patient went to [facility] yesterday as she was in [facility] and felt fluid leaking down her legs and passed mucous. Pt reports hospital told her she was not ruptured and she was not dilated. Please see note/letter per GEMMA Edwards.Patient screened Negative for cough, SOB, fever. Patient is afebrile today upon entering the office. Patient is wearing a mask today. Ailyn Mendieta RN 08/28/2019 10:36 AM documented in this encounter Consult Notes * Sayra Nj, REFERRAL MANAGEMENT LIAISON-TRIMMER SORTER - 08/28/2019 9:45 AM CDTAssociated Order(s): AMB CONSULT TO MATERNAL MEDICNE Images from the original note were not included. Dear Dr. Maldonado, I had the pleasure of seeing your patient, Deya Campbell for consultation today. Maternal Medicine Consultation visit Subjective: Deya Campbell is a at 30w6d here for follow up consultation visit, at the request of Dr. Maldonado, for the following issues below. Since the last visit she notes breaking a tooth, and now noticing significant pain in her tooth, gum, and mucosal cheek area. States it feels edematous. She has been calling dental clinics daily to be seen. Home blood pressure log review since 08/16: SBP range: 118-140/ DBP range: 58-92; one outlier 140/92, noted to be the elevated, otherwise other blood pressure values normotensive. States she continues to have frequent headaches, just picked up the Riboflavin to start. They resolve with rest or hydration and do not persist throughout the day. Reports baseline blurred vision dueto cataracts, this has not worsened or changed since prior to her . Denies RUQ abdominal pain. Reports active movement. She is compliant with her 162mg of ASA. She was evaluated yesterday at [facility] tri[facility] due to leakage of fluid, after walking around shopping. States her work up was negative and she was discharged. Denies current contractions, leakage of fluid, vaginal bleeding. Reports continued loss of mucus plug. Reports following low fat diet, and getting in exercise as recommended. States she has stopped eating any fast food. Believes that she had CMP assessed last week with primary OB. Deya's is complicated by: Patient Active Problem List: Cataracts, bilateral NAFLD (nonalcoholic fatty liver disease) Anxiety GERD (gastroesophageal reflux disease) Liver lesion Supervision of high-risk of young multigravida Short interval between pregnancies affecting , antepartum History of delivery Maternal morbid obesity, antepartum Lumbar herniated disc Diverticulitis Sleep apnea Chronic hypertension affecting Frequent headaches Her past history is significant for: Past Medical History: Diagnosis Date ??? Anxiety [...] 2002 ??? Tympanostomy 2001, 2002 Social History Tobacco Use ??? Smoking status: Never Smoker ??? Smokeless tobacco: Never Used Substance Use Topics ??? Alcohol use: Not Currently ??? Drug use: Never Review of systems: Constitutional: Negative for fevers Eyes: see HPI Ears, nose, mouth, and throat: Negative for sore throat; intermittent shotting pain and swelling near the broken tooth, that has worsened in the last 1-2 weeks Respiratory: Negative for shortness of breath or cough Cardiovascular: Negative for chest pain Gastrointestinal: Negative for nausea; positive for constipation, used Miralax with relief, no recent diverticulitis flare Genital: see HPI Urinary: Negative for dysuria Hematologic/lymphatic: Negative for vaginal bleeding or bloody stools Musculoskeletal: ongoing significant low back pain; no falling episodes Neurological: see HPI Behavioral/Psych: shares heightened anxiety, insomnia, racing thoughts with worry about this and her oldest son, endorses active grief, has not started counseling yet, declines medication intervention Integument: Denies skin changes Obstetric: see HPI Objective Physical Examination: VS: BP 130/76 (BP SITE: LEFT ARM, BP POSITION: SITTING, BP CUFF SIZE: 12) Pulse 97 Temp 97.4 ??F (36.3 ??C) (Temporal) Wt 306 lb (138.8 kg) BMI 59.76 kg/m2 See flowsheet Gen: no acute distress Mental: appropriate mood, behavior and speech HEENT: right sided mucus al lining of back tooth with mild edema and tender, extending to cheek; exam limited by lack of tongue depressor Chest: nonlabored breathing Abdomen: gravid, obese, no epigastric tenderness FHT + per doppler Trunk: no costovertebral angle tenderness Extremities: trace pedal edema; symmetric extremities, negative Lam's sign bilaterally Skin: No rash observed Current Outpatient Medications Medication Sig ??? amoxicillin (AMOXIL) 500 MG capsule Take 1 capsule by mouth 3 times daily for 7 days ??? aspirin EC (ECOTRIN) 81 MG tablet Take 162 mg by mouth once daily Reasons: Increased Blood Pressure and Edema During ??? Ferrous Sulfate (SLOW FE) 142 (45 Fe) MG Patient will start tomorrow. Reasons: Anemia From Inadequate Iron in the Body ??? folic acid (FOLVITE) 1 MG tablet Take 1 tablet by mouth once daily Reasons: obesity in ??? Vit-Fe Fumarate-FA ( VITAMIN PO) Take 1 tablet by mouth once daily ??? raNITIdine (ZANTAC) 150 MG tablet ranitidine 150 mg tablet ??? riboflavin 100 MG tablet Take 4 tablets by mouth once daily Reasons: Frequent Headaches No current facility-administered medications for this encounter. not taking Zantac Ultrasound:(see detailed report) Labs: Urine dipstick negative Alb/Glu/K/N/L Albumin: Trace Glucose: Negative Urine Ketones: Negative Urine Nitrite: Negative Assessment/Plan: 23 year old with IUP at 30w6d RECOMMENDATIONS: Chronic hypertension affecting Blood pressure appropriate without medication. No current indication for antihypertensive medication. Remains at risk for complications of hypertensive . ?? Maternal Medicine recommendations: 1. Goal blood pressures <155/95 2. Bring blood pressure log to [employer] visits 3. Continue ASA prophylaxis 4. Reassess growth at 33 and 37 weeks 5. Twice daily kick counts 6. Weekly BPP and NST to begin at 32 weeks 7. Delivery initiation at 39 weeks 8. Preeclampsia warning signs reviewed 9. If blood pressure consistently above 155/95 would benefit from initiating antihypertensive medication 1. patient with adverse reactions to nifedipine and labetalol 2. continue aspirin (162 mg) History of delivery Had previously elected 17 OH PC supplementation that was never started by primary box toe cutter. Negative exam per patient review for rupture of membranes at [facility] yesterday. Asymptomatic today for labor. ?? Maternal Medicine recommendations: 1. labor precautions in detail today 2. Warrant increased surveillance by primary box toe cutter 3. Seek evaluation with any concerns regarding vaginal discharge changes, including odor, color change. ?? Maternal morbid obesity, antepartum Total weight gain noted: 17 lb (7.711 kg) States she is exercising and making dietary changes ?? Maternal Medicine recommendations: 1. Continue folic acid supplementation prescribed 2. Continue following appropriate diet and regular exercise 3. Would benefit from and weight loss 4. Would benefit from discussion of gastric surgery due to co- morbidities, as recommended by Dr. Sauceda NAFLD (nonalcoholic fatty liver disease) Remains at risk for complications of related to pre-existing liver disease and suspected chronic hypertension. Patient believes she had CMP drawn at primary OB last week. ?? Maternal Medicine recommendations: 1. Serial liver function testing every trimester--to be ordered by primary box toe cutter, please send copy of recent results. 2. Follow up with GI as recommended in fall for repeat MRI and fibroscan. ?? Anxiety Increased anxiety and insomnia, in need of counseling. Declines medication intervention. Previously took lorazepam, understands she cannot take this during . MFM Plan: 1. Reviewed benefit of counseling again today, especially since she is exhibiting behaviors that are affecting her well being. 2. Offered medication and she declined. 3. Close surveillance for mood and anxiety disorder. 4. Ongoing assessment at [facility] visits. Frequent headaches Just picked up Riboflavin today, rarely uses Tylenol due to NAEFD. Headaches have not worsened. MFM Plan: 1. Reviewed headaches and if there is change to her current headache pattern, worsening, or persistent, she should be seen promptly for preeclampsia evaluation. 2. Start Riboflavin, increase fluid intake. Lumbar herniated disc Remains bothersome with use of maternity support belt. Denies any falls. Has PT referral and has not made appointment. Swimming with some relief. MFM Plan: 1. Again encouraged to reach out to physical therapy, she assures me she has the order form at home. Additionally: Amoxicillin sent to pharmacy for concern of dental abscess and worsening pain, patient encouraged to keep reaching out to dentist as she has been for full evaluation. Notes Keflex allergy, but states she has taken Amoxicillin many times without ill effect. Instructed to stop medication if notices rash, go to ED with any SOB or scratchy throat. Patient plans to call primary OB regarding testing, she is aware this is to begin at 32 weeks, and will schedule with them if that is their preference. I recommend a follow-up consultation in 3 weeks,and repeat growth ultrasound at that time. Deya is to follow up with her primary Obstetrical care provider for her routine care and acute OB concerns, including delivery as clinically indicated. Once again, we appreciate the opportunity to assist you in the care of Ms. Campbell. If issues arise for which I can be of help before her next visit here, please our MFM group, she was seen in collaboration with Dr. Aleman. She will continue seeing you for care. Sincerely, PARAS Malone 08/28/2019 12:47 PM documented in this encounter Plan of Treatment Not on file documented as of this encounter Visit Diagnoses Diagnosis Short interval between pregnancies affecting , antepartum (HCC) Maternal morbid obesity, antepartum (HCC) Obesity complicating , childbirth, or the puerperium, antepartum condition or complication Frequent headaches Liver lesion Other specified disorders of liver Supervision of high-risk of young multigravida (HCC) Supervision of high-risk of young multigravida Chronic hypertension affecting (HCC) History of delivery Unspecified pre-existing hypertension complicating , third trimester (HCC) History of delivery, currently in third trimester (HCC) Headache in , antepartum, third trimester (HCC) Obesity complicating , third trimester (HCC) Morbid (severe) obesity due to excess calories (HCC) 30 weeks gestation of (HCC) state, incidental * Assessment & Plan Note - Sayra Nj APRN-CNP - 08/28/2019 12:40 PM CDTAssociated Problem(s): Lumbar herniated disc Remains bothersome with use of maternity support belt. Denies any falls. Has PT referral and has not made appointment. Swimming with some relief. [facility] Plan: 1. Again encouraged to reach out to physical therapy, she assures me she has the order form at home. * Assessment & Plan Note - Sayra Nj APRN-CNP - 08/28/2019 12:35 PM CDTAssociated Problem(s): Frequent headaches Just picked up Riboflavin today, rarely uses Tylenol due to NAEFD. Headaches have not worsened. [facility] Plan: 1. Reviewed headaches and if there is change to her current headache pattern, worsening, or persistent, she should be seen promptly for preeclampsia evaluation. 2. Start Riboflavin, increase fluid intake. * Assessment & Plan Note - Sayra Nj APRN-CNP - 08/28/2019 12:29 PM CDTAssociated Problem(s): Anxiety (Deleted) Increased anxiety and insomnia, in need of counseling. Declines medication intervention. Previously took lorazepam, understands she cannot take this during . [facility] Plan: 1. Reviewed benefit of counseling again today, especially since she is exhibiting behaviors that are affecting her well being. 2. Offered medication and she declined. 3. Close surveillance for mood and anxiety disorder. 4. Ongoing assessment at [facility] visits. * Assessment & Plan Note - Sayra Nj APRN-CNP - 08/28/2019 10:33 AM CDTAssociated Problem(s): NAFLD (nonalcoholic fatty liver disease) Remains at risk for complications of related to pre-existing liver disease and suspected chronic hypertension. Patient believes she had CMP drawn at primary OB last week. ?? Maternal Medicine recommendations: 1. Serial liver function testing every trimester--to be ordered by primary box toe cutter, please send copy of recent results. 2. Follow up with GI as recommended in fall for repeat MRI and fibroscan. ?? * Assessment & Plan Note - Sayra Nj APRN-CNP - 08/28/2019 10:31 AM CDTAssociated Problem(s): Maternal morbid obesity, antepartum (HCC) (Deleted) Total weight gain noted: 17 lb (7.711 kg) States she is exercising and making dietary changes ?? Maternal Medicine recommendations: 1. Continue folic acid supplementation prescribed 2. Continue following appropriate diet and regular exercise 3. Would benefit from and weight loss 4. Would benefit from discussion of gastric surgery due to co- morbidities, as recommended by Dr. Sauceda * Assessment & Plan Note - Sayra Nj APRN-CNP - 08/28/2019 10:29 AM CDTAssociated Problem(s): History of delivery (Deleted) Had previously elected 17 OH PC supplementation that was never started by primary box toe cutter. Negative exam per patient review for rupture of membranes at [facility] yesterday. Asymptomatic today for labor. ?? Maternal Medicine recommendations: 1. labor precautions in detail today 2. Warrant increased surveillance by primary box toe cutter 3. Seek evaluation with any concerns regarding vaginal discharge changes, including odor, color change. ?? * Assessment & Plan Note - Sayra Nj APRN-CNP - 08/28/2019 10:24 AM CDTAssociated Problem(s): Chronic hypertension affecting (HCC) (Deleted) Blood pressure appropriate without medication. No current indication for antihypertensive medication. Remains at risk for complications of hypertensive . ?? Maternal Medicine recommendations: 1. Goal blood pressures <155/95 2. Bring blood pressure log to [employer] visits 3. Continue ASA prophylaxis 4. Reassess growth at 33 and 37 weeks 5. Twice daily kick counts 6. Weekly BPP and NST to begin at 32 weeks 7. Delivery initiation at 39 weeks 8. Preeclampsia warning signs reviewed 9. If blood pressure consistently above 155/95 would benefit from initiating antihypertensive medication 1. patient with adverse reactions to nifedipine and labetalol 2. continue aspirin (162 mg) documented in this encounter Care Teams Access Coordinator Relationship Specialty Start Date End Date Jonelle Elam MD [address] [place] [address] [place] [address] PCP - General Family Medicine 10/24/18 documented as of this encounter
--- OUTSIDE RECORDS SUMMARY | 2024-04-14 17:45 | XMS_ITS | Encounter Summary ---
Author Organization [facility] Address [address] [place] [address] Care Team Providers Care Manager Assessment Name Role Phone Jonelle Elam MD Primary Care Provider [phone] Reason for Referral * Consult, Test & Treat (Routine) - Closed Specialty Diagnoses / Procedures [facility] Referred To Contact Diagnoses NAFLD (nonalcoholic fatty liver disease) Liver lesion Supervision of high-risk of young multigravida (HCC) Procedures MATERNAL MEDICINE CONSULT Taurus Maldonado MD [address] [place] [address] Referral ID Status Reason Start Date Expiration Date Visits Re quested Visits Authorized [id number] Closed 06/04/2019 12/01/2019 1 1 CIATE PUBLISHER Reason for Visit * Reason Comments Ultrasound Consultation * Evaluate & Treat (Routine) - Closed Specialty Diagnoses / Procedures [facility] Referred To Contact Maternal Medicine Diagnoses Obesity complicating , unspecified trimester (HCC) Liver disease, unspecified Fatty (change of) liver, not elsewhere classified Procedures GA FULL ROUT OBSTE CARE,VAGINAL DELIV Taurus Maldonado MD [address] [place] [address] [facility] [address] [place] [address] Referral ID Status Reason Start Date Expiration Date Visits Re quested Visits Authorized [id number] Closed 06/05/2019 12/02/2019 20 20 Encounter Details Date Type Department Care Team (Latest Contact Info) Description 06/05/2019 10:30 AM ASSOCIATE PUBLISHER - 06/05/2019 11:59 PM ASSOCIATE PUBLISHER Hospital Encounter [facility] [address] [place] [address] [address] [facility] [address] Discharge Disposition: Home or Self Care Social [...] Sign Reading Time Taken Comments Blood Pressure 136/69 06/05/2019 11:11 AM ASSOCIATE PUBLISHER Pulse 88 06/05/2019 11:11 AM ASSOCIATE PUBLISHER Temperature - - Respiratory Rate - - Oxygen Saturation - - Inhaled Oxygen Concentration - - Weight 130.6 kg (288 lb) 06/05/2019 11:11 AM ASSOCIATE PUBLISHER Height 154.9 cm (5' 1 ) 06/05/2019 11:11 AM ASSOCIATE PUBLISHER Body Mass Index 54.42 06/05/2019 11:11 AM ASSOCIATE PUBLISHER documented in this encounter Discharge Instructions * Patient Instructions* Annette Sauceda MD - 06/05/2019 10:30 AM ASSOCIATE PUBLISHER Physician instructions: 1. Please increase aspirin to 2 baby tablets taken daily (162 mg) 2. Continue your regular exercise 3. Increase the fiber in your diet 4. You can take a daily B vitamin supplement to decrease the frequency of your headaches--I have sent a prescription for this to your pharmacy 5. You would benefit from folic acid supplementation-I have sent a prescription for this to your pharmacy 6. Continue to check your blood pressure and record the values for review with your guest services attendant 7. I recommend the following consultations: Mental health counseling, physical therapy, nutrition counseling 8. I recommended total weight gain this to limited to less than 15 lb 9. You would benefit from follow-up to evaluate sleep apnea 10. You can wear a medicated heat strip on your back for pain relief 11. I recommend ultrasound examinations of your cervix every 2 weeks for the next few weeks as wellas growth ultrasound for the baby once a month 12. At the end of the I recommend a consultation with Anesthesia at your delivery hospital 13. You would benefit from and continued efforts with weight loss 14. Maintain your follow-up with Dr. Kitchen CIATE PUBLISHER documented in this encounter Medications at Time of Discharge Medication Sig Dispensed Refills Start Date End Date aspirin EC (ECOTRIN) 81 MG tabletIndications:P reeclampsia Take 162 mg by mouth once daily Reasons: Increased Blood Pressure and Edema During 03/11/2020 cyclobenzaprine (FLEXERIL) 10 MG tablet cyclobenzaprine 10 mg tablet Take 1 tablet 3 times a day by oral route for 30 days. 07/03/2019 folic acid (FOLVITE) 1 MG tabletIndications:o besity in Take 1 tablet by mouth once daily Reasons: obesity in 90 tablet 11 06/05/2019 02/12/2020 LORazepam (ATIVAN) 1 MG tablet lorazepam 1 mg tablet 2019 NIFEdipine CR 24hr (ADALAT CC) 30 MG tablet every 24 hours 07/03/2019 ondansetron (ZOFRAN) 4 MG tablet ondansetron HCl 4 mg tablet TK 1 T PO Q 6 H PRF NAUSEA/VOMITING 07/03/2019 Vit-Fe Fumarate-FA ( VITAMIN PO) Take 1 tablet by mouth once daily 02/12/2020 raNITIdine (ZANTAC) 150 MG tablet ranitidine 150 mg tablet 10/12/2018 02/12/2020 riboflavin 100 MG tabletIndications:F requent Headaches Take 4 tablets by mouth once daily Reasons: Frequent Headaches 120 tablet 11 06/05/2019 02/12/2020 documented as of this encounter Progress Notes * Linda Oviedo RN - 06/05/2019 10:30 AM CST Pt here today for new MFM consult for history of liver lesion/mass. Pt has NAFLD, seen by Dr. Shyanne LIRIANO. Records available in [facility] for review. She reports movement today. +FHT's per doppler.Denies cramping but reports round ligament pain occasionally. Denies leakage of fluid/bleeding. Denies headaches, visual changes, edema, and epigastric pain. Pt was late to appointment today, ultrasound will be reschedule for another date and time. Message sent to Margy Skelton to please arrange Mental Health counseling referral for this patient and physical therapy for history of bluging discs. Pt was was seen today by Ethel, high school music teacher, for nutrition counseling. Please see her note from Ethel regarding this visit today. Prior authorization sent for Quilcene injections, will await approval. Records release signed for autopsy record from that from [place] in 2019 and sent [facility]. Pt seen by Dr. Sauceda, please see her note for further POC. CIATE PUBLISHER * Almaz Garduno RN - 06/05/2019 10:30 AM CST Diabetes Self Management Education & Support [facility] Mary Carmen Cross is a 23 year old [id number] Date of Delivery: 10/31/19 Patient was seen today for meal planning guidance Indication: Class 3 Obesity, fatty liver disease, hypertension Strong family history T2 diabetes Barriers to Learning: none Lives with spouse and 7yo son Healthy Eating Is in process of making marked changes to her eating habits. Is making changes to benefit her 7yo son as well. Uses portion bowls at home. Does not serve juice to son, but does have small portions herself. Baking meats. Including more veggies. Using olive oil. Shares cooking with her spouse. Aware of IOM guidelines for weight gain with obesity (5-9 kg). Shared weight gain grid with pt today. States she is aiming for negative weight gain. PPW: 289 lbs Weight: 288 lbs TWG -1 lb Currently enrolled in Biology of Nutrition Class at [facility]. Using websites for recipes/nutrition information. Explored with pt ways to use websites such as [employer] and [employer]Symbiosis [employer]. Occasionally has cravings. E.g. [place]. We used [employer] jaqui to assess nutrition information, with focus on sodium, carbs. Pt showed astonishment at sodium content in the 2 ham and cheese sandwiches, small fries, cookies that exceeded 4400 gm. 24 hr recall: Bfast: scambled eggs with wheat toast Lunch: string cheese Dinner: salmon in oven, 1 cup long grain rice, water Snack: grapes Being [place] [address] [place]. Active at home with housework, playing with 7yo as well. Does have yoga mat that she uses for stretches. Uses light weights when walking. Coping Notes that she gained excessive weight after loss of son from SIDS. Realized that she needed to getback on track with diet. Established routine at home for meals/snacks. Is experiencing positive effects when she avoids stress eating, fast food. We reviewed ways to marline these effects vs the negative effects of overeating to motivate self to continue with the positive changes. Knowledge/Skills presented: Healthy Eating/Meal Planning Choosing healthy types of foods in 3 categories: protein, fat, carb Importance of consistency, eating 3 meals and 3 snacks. Label reading for calories, sodium, fats, carbs, fiber Healthy budgets for carbs at meals/snacks with typical meal distribution as follows: Breakfast 15-30gm, Lunch & Dinner 45-60 gm, Snacks between meals and at hs 15gm. Foods to avoid or limit: sweets, fast foods, drinks with sugar Including healthy fats/protein with each meal/snack Adding fiber through whole foods,whole grains, legumes, fruits and vegetables. Materials/Supplies: Krames edition: Nutrition in Healthy fats Plate method handout Healthy Eating/Meal Planning: Modified handout from [employer]: Please just tell me what to eat: 1. Choose the Healthiest Carbohydrates. Aim for the healthiest carbohydrates, which are the most natural forms, like beans, fruit, milk, and 100-percent whole-grains. 2. Watch Portion Sizes. Limit portions if you tend to eat too much. You can start by avoiding second servings of food or eating half the amount you used to eat. Try to keep higher-carb food portions such as whole-wheat pasta or potatoes to no larger than the size of your fist. 3. Choose High-Fiber Foods. Fiber may help prevent heart disease and some cancers, slows digestion,and also fills you up. High-fiber foods include oatmeal, beans, fresh fruit (with skin), vegetables, and whole grains like barley and quinoa. 4. Include Protein in Every Meal or Snack. Protein foods have little or no effect on blood glucose levels and tend to be very satisfying; they are generally superfoods for diabetes. And eating protein is easy! Good protein foods include fish, turkey, chicken, lean beef and pork, tofu, cheese, milk, eggs, and beans. 5. Limit High Saturated and Avoid Trans-Fat Foods. Foods very high in saturated fats should be limited, because saturated fats can have negative health effects and they're high in calories. Trans fats raise ???bad?? cholesterol levels, lower good cholesterol levels, and are usually found in high-carb, high- calorie foods. So watch your intake of very fatty meats, and eliminate packaged snacks and baked goods made with hydrogenated vegetable oils, such as cakes, cookies, crackers, chips, and pies. 6. Choose Healthy Fats. Healthy fats are the monounsaturated and polyunsaturated fats that can helpimprove your cholesterol levels. Foods high in these fats include fish and seafood, nuts, seeds, olive oil, and avocados. These foods tend to be calorie-dense but they also are filling and satisfying. 7. Limit High-Sugar Foods. All foods high in sugar are going to be high in carbohydrates and will raise blood glucose levels, so think of them as anti- diabetes. And eating these foods should be considered special occasion eating. Try to eliminate things like soda, juice, sweetened beverages, syrups, candy, and regular desserts. 8. Eat More Veggies. You???ve heard it before -- vegetables are good for us and you should eat moreof the low-carbohydrate, low-glycemic veggies such as green beans, asparagus, broccoli, cauliflower, spinach, greens, cabbage, and lettuce. These foods have little effect of blood glucose levels and are high in fiber and many other disease-fighting nutrients. Aim to make half or more of your plate v egetables and you???ll be off to a good start. 9. Eat Less Processed Foods. If you stick to more whole, natural foods and less processed foods your diet will be substantially healthier. Processed foods are often full of trans fats, sugar, sodium,and excess calories while providing little or no nutritional value. 10. Use the Plate Method to Put It All Together. Eating with diabetes does not have to be complicated. The Plate Method is an easy way to put together all the basics of healthy eating. Fill half of your plate with low-carbohydrate vegetables, such as broccoli; fill one-quarter of your plate with lean protein such as chicken, fish, or lean pork, and fill the remaining quarter of your plate with a healthy higher-carbohydrate food, such as a small sweet potato, a whole grain like barley or quinoa,or whole-grain pasta. Engagement/Motivation: 90% Understandin% CIATE PUBLISHER * Margy Skelton - 06/05/2019 10:30 AM CST I received a PT Referral for this patient. The following locations did not accept [facility] Medicaid at this time: [facility], [facility] in the [place] and [facility]. I had to change her appointment location as the insurance was incorrect in the system. This patientdoes not have [facility] Insurance. She actually has [facility] Insurance. I have updated her information in the system and [facility] the [facility] to be seen. They accept [facility]. I will be faxing the order andconsultation note to [phone] as they are not apart of the [employer] System. Per Reinier of the [facility], she will contact the patient and get her started with appointments. I will still send a letter to the patient. CIATE PUBLISHER documented in this encounter Consult Notes * Annette Sauceda MD - 06/05/2019 10:30 AM CSTAssociated Order(s): AMB CONSULT TO MATERNAL MEDICNE Images from the original note were not included. Dear Dr. Maldonado, I had the pleasure of seeing your patient, Mary Carmen Cross for consultation today. Maternal Medicine Consult Note Date of Consult: 06/05/2019 Physician Requesting Consult: Taurus Maldonado MD Name: Mary Carmen Cross Age: [age] year old Race: Reason for requesting consultation: Mary Carmen Cross is a 23 year [id number], female at 18w6d weeks gestation by Estimated Date of Delivery: 10/31/19. I have been asked by Dr. Maldonado to consult for history of non-alcoholic fatty liver and aliver nodule. HPI: Takes ambulatory blood pressure measurements [goes to grocery/pharmacy] : reports values around 130-140s/90s Saw Ophthalmology; reports that the physician wants to wait until after the end of her tochange her eye glass prescription. Believes her vision changes are secondary to the . summary: (See below) Allergies Allergen Reactions ??? Levofloxacin Urticaria and Itching Chest pain, shortness of breath and pain and weakness in legs ??? Cephalexin Rash ??? Nifedipine Other Facial redness, palpitations ??? Labetalol Shortness of Breath Past Medical History: Diagnosis Date ??? Anxiety ??? Breast disorder history of breast lump-normal ??? Chronic hypertension 2011 ??? Diverticulitis ??? Fatty liver disease, nonalcoholic ??? Lumbar herniated disc 2014 Previously had physicial therapy and injections ??? Morbid obesity ??? 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 Sleep apnea Has not had a sleep study Both times was initiated on an antihypertensive had a reaction [labetalol [ G1] and then nifedipine [ G2] Follows a diverticulitis diet. Reports that she had an unremarkable colonoscopy in 2019. Previously used lorazepam [Ativan] for anxiety Past Surgical History: Procedure Laterality Date ??? [...] file Gets together: Not on file Attends roman catholic service: Not on file Active member of [...] Social History Narrative ??? Not on file Goes to school fultime Family History Problem Relation Name Age of Onset ??? Hypertension Paternal Grandfather ??? Cancer - Colon Paternal Grandfather ??? Hypertension Paternal Grandmother ??? Hypertension Maternal Grandmother ??? Hypertension Maternal Grandfather ??? Diabetes - Type 2 Maternal Grandfather ??? Hypertension Father ??? Renal Disease Father ??? Diabetes - Type 1 Father ??? Hypertension Mother ??? Hypertension Brother ??? Renal Disease Brother ??? Seizures Brother Brother has 1 functioning kidney Father has horseshoe kidney and 'alpha 1' Oldest child is in the hospital frequently: severe allergies, asthma, sleep apnea OB History Para Term AB Living 3 2 2 1 SAB TAB Ectopic Multiple Live Births 2 # Outcome Date GA Lbr Patricio/2nd Weight Sex Delivery Anes PTL Lv 3 Current 2 07/2018 36w0d 3090 g (6 lb 13 oz) M Vag-Spont DEC Complications: Hypertension affecting 1 2013 36w0d 2722 g (6 lb) M Vag-Spont NINOSKA Complications: Oligohydramnios, Hypertension affecting Obstetric Comments G1: PPROM at 36 wk G2: PPROM at 36 wk G2 child of SIDS at 2 months--unsure of whether or not child had heart abnormality G1&G2 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 aspirin EC (ECOTRIN) 81 MG tablet Take 81 mg by mouth once daily Reasons: Increased Blood Pressure and Edema During ??? Vit-Fe Fumarate-FA ( VITAMIN PO) Take 1 tablet by mouth once daily Review of Systems: Constitutional: Negative for fevers Eyes: blurred vision, difficulty driving at night Ears, nose, mouth, and throat: transient sinus complaints--now resolved Respiratory: Negative for shortness of breath Cardiovascular: Negative for chest pain Gastrointestinal: nausea-resolved; irregular bowel movements; sometimes painful movements Genital:Negative for abnormal vaginal discharge Urinary: Negative for dysuria Hematologic/lymphatic: Negative for vaginal bleeding; intermittent swollen and red changes to left inner ankle Musculoskeletal: chronic lower back pain Neurological: frequent headaches Behavioral/Psych: reports good control with anxiety; after stopping Ativan had rebound increased anxiety--now resolved; good family interaction; poor sleep--wakes up, checks on her living son [he hassleep apnea], has a hard time returning to sleep --blames herself for not preventing other son fromdying; does a lot of cleaning at night Endocrine:decreased energy Integument: Denies skin changes Obstetric: movement appreciated, denies leakage of fluid, pelvic pressure Exam: BP 136/69 (BP SITE: LEFT ARM, BP POSITION: SITTING, BP CUFF SIZE: 12) Pulse 88 Ht 5' 1 (1.549 m) Wt 288 lb (130.6 kg) BMI 54.42 kg/m2 Gen: no acute distress FHR pos Mental: appropriate mood, behavior and speech Neck: no thyroid enlargement Chest: clear to auscultation, bilaterally Heart: regular rate and rhythm, no murmurs, rubs or gallops Abdomen: gravid, no epigastric tenderness Trunk: no costovertebral angle tenderness Musculoskeletal: no bony point tenderness to palpation Extremities: no pedal edema; negative Lam's sign, bilaterally Skin: No rash observed Labs: Recent Labs Component Name 04/12/19 1514 01/02/19 1236 ALKPHOS 55 71 ALT 12 24 AST 16 20 Alpha 1 antitrypsin within age and sex range US: Was not able to have 2nd trimester survey performed due to arriving late for appointment. Impression: IUP at 18w1d Patient Active Problem List Diagnosis Date Noted ??? Short interval between pregnancies affecting , antepartum 06/05/2019 Priority: Not Prioritized ??? History of delivery 06/05/2019 Priority: Not Prioritized history of spontaneous delivery in 1st two pregnancies ??? Maternal morbid obesity, antepartum 06/05/2019 Priority: Not Prioritized ??? Diverticulitis Priority: Not Prioritized ??? Sleep apnea Priority: Not Prioritized Has not had a sleep study ??? Cataracts, bilateral 01/02/2019 Priority: Not Prioritized Has artificial lens in left eye ??? NAFLD (nonalcoholic fatty liver disease) 01/02/2019 Priority: Not Prioritized ??? Anxiety 01/02/2019 Priority: Not Prioritized ??? GERD (gastroesophageal reflux disease) 01/02/2019 Priority: Not Prioritized ??? Lumbar herniated disc 2014 Priority: Not Prioritized ??? Chronic hypertension affecting 2011 Priority: Not Prioritized Had mild elevated blood pressure and was asymptomatic at her Hepatology visit April,. History of elevated blood pressure in her previous pregnancies. ??? Liver lesion 06/04/2019 Liver lesion/mass noted on previous ultrasound. ??? Supervision of high-risk of young multigravida 06/04/2019 LMP 01/22/19 [approximate] CRL at 13 wk--LUISA 10/31/19 O+ Neg, Imm, RPR-NR, HBSag-NR, HIV-NR, HepC-NR HH 11.6/ 34.2 Plts 283 HgA1C- 5.1 [employer] carrier screen negative Sequential screen started RECOMMENDATIONS: Anxiety Having significant nighttime anxiety. May have posttraumatic stress from the of her youngest child. At risk for mood deterioration. At risk for worsening of blood pressure and excessive weight gain from poor sleep. Maternal Medicine recommendations: 1. strongly recommend mental health counseling 2. Reassess mood at visits 3. would benefit from Cataracts, bilateral Having decreased nighttime vision Maternal Medicine recommendations: 4. recommend follow-up with gumming machine operator Liver lesion Liver lesion assessed to be benign by imaging. Has not had a biopsy. Serum liver function testing unremarkable. A recent publication in Hepatology (2018) assessed the risk of complications following women who had liver biopsies performed during compared to women without the procedure. The study appreciated a moderately increased risk of and small for gestational age weight for the pregnancies of women who had a biopsy performed during . Maternal Medicine recommendations: 5. Maintain follow-up with Hepatology 1. if there is a high concern for concerning/malignant features, the risk of biopsy during may be acceptable compared to the the potential benefit of diagnostic information Short interval between pregnancies affecting , antepartum Close interval pregnancies (less than 6 months) have an increased risk of delivery and small for gestation age neonates. Maternal Medicine recommendations: 6. serial growth every 4 weeks after 20 weeks History of delivery In women with previous spontaneous , recurrence risk is 25-30%. We discussed that the standard intervention for many years has been 17 OH PC supplementation. Administration of 86-zrladgg-wubpdfsfpjda caproate (17-OHPC) weekly, starting from 16-18 weeks to 36 weeks has shown to reduce the risk of premature delivery. 17-OHPC has been found to decrease the risk of delivery at 37, 35, and 32 weeks is high risk patients. The middle or intermediate school principal data on the impact of progesterone exposure in on development is not available but the short term data is reassuring. I disclosed the current question regarding whether the effectiveness of IM progesterone supplementation is less than what was previously reported. I also discussed the role of serial cervical length assessments, aimed at identifying a prematurelyshortened cervix to allow intervention for a cerclage were the length to become shorter than 2.5 cmbefore 24 weeks. Cerclages have been shown to be of benefit for such women with prior history of spontaneous premature delivery and sonographic short cervix. We also discussed the alternatives such as: history indicated prophylactic cerclage as well as off-label use of prophylactic vaginal progesterone. We discussed that cervical length surveillance has been used to identify those women who would benefit from cerclage placement and avoid unnecessary cerclage in other women. I reviewed the risks regarding cerclage placement as well as the gestational age limitations for this intervention. We also discussed the safety profile of vaginal progesterone and that the bulk of information comes from women with a short cervix with and without a previous history of delivery. The patient voiced an understanding to the above conversation and all questions were answered to her satisfaction. Maternal Medicine Recommendations: 7. 1. Serial cervical length measurements from 16-24 weeks with consideration for cerclage should cervical length < 2.5 cm be identified 8. our office is assisting with prior authorization investigation for 17 OH PC supplementation, which the patient is interested in receiving 9. labor precautions 10. evaluation of abnormal vaginal discharge by the primary guest services attendant with treatment as indicated Maternal morbid obesity, antepartum Obese women have higher rates of spontaneous miscarriage. Morbid obesity is associated with a host of complications: increased risk for preeclampsia and gestational hypertension, delivery, macrosomia, gestational diabetes, deep venous thrombosis, delivery, stillbirth and c ertain defects, such as open neural tube defects. deliveries are associated with an increased risk of complications, such as anesthetic complications, wound complications and infections. During , limited weight gain is recommended. The [place] [employer] recommends a total weight gain in between 11-20 lb for women who have obese body habitus as defined by a body mass index greater than or equal to 30. Maternal Medicine recommendations: 11. nutrition counseling--being performed today 12. Folic acid supplementation prescribed 13. Recommend limiting weight gain to less than 15 lb 14. Continue following appropriate diet and regular exercise 1. Instructed increase dietary fiber 15. Would benefit from and weight loss 16. Would benefit from discussion of gastric surgery due to co-morbidities Supervision of high-risk of young multigravida Please forward a copy of the aneuploidy screening results once available Diverticulitis Maternal Medicine recommendations: 17. nutrition counseling--initiated today 18. Encouraged to increase dietary fiber Chronic hypertension affecting Suspected chronic hypertension. No current indication for antihypertensive medication. Chronic hypertension is associated with a 20-25% risk for superimposed preeclampsia. Low dose aspirin has a small-moderate benefit in the prevention of preeclampsia in at risk women ([place] DSR, 2008). There is no significant risk of low dose aspirin if initiated after the first trimester of . Low dose aspirin therapy is discussed. Antihypertensive therapy does not reduce the risk for superimposed preeclampsia. Aldomet and labetalol are the agents with the largest experience in (NIH, 2000). Both areFDA category C medications. Considerations with both include a potential association of beta-aidee use with growth disturbance and somnolence as an undesirable side effect of Aldomet. Labetalol is the agent which is typically used by providers at this institution. Diuretic therapy during is associated with a reduction in the normal physiologic expansion of plasma volume. The targets of therapy with chronic hypertension are typically <160 mm Hg systolic and 90-105 mmHg diastolic. Consistent blood pressures above 155/95 would be an indication to initiate antihypertensive medication. Aggressive normalization of blood pressure does not have benefit otherwise; it may have an undesirable impact on outcome. Aggressive treatment of hypertension does not reduce the risk for superimposed preeclampsia. Chronic hypertension is associated with an elevated risk of growth disturbance. It provides an indication for periodic assessments of the growth throughout . A reasonably aggressive approach is an ultrasound for growth at 28 weeks gestation with subsequent assessments at 4-6 week intervals thereafter (NIH, 2000). Chronic hypertension is associated with an elevated risk for morbidity and mortality. It provides an indication for formal antepartum surveillance. Such surveillance is typically initiated at 32 weeks gestation. The mechanics and performance characteristics of formal surveillance are discussed. movement monitoring is an adjunct form of surveillance. Maternal Medicine recommendations: 19. Baseline 24 urine for total protein--to be ordered by the primary guest services attendant prior to 20 completed weeks of 20. Goal blood pressures <160/100 21. If blood pressure consistently above 155/95 would benefit from initiating antihypertensive medication 22. Aspirin ( 162 mg) starting at 12 weeks--instructed to increase aspirin dose 23. Serial growth every four weeks after 24 weeks 24. Daily kick count starting at 28 weeks 25. Weekly 10 point biophysical profile starting at 32 weeks 26. Delivery initiation at 39 weeks 27. Would benefit from and weight reduction Lumbar herniated disc Having significant pain at night after exercise Maternal Medicine recommendations: 28. resume physical therapy 29. instructed to use medicated heat strip as needed for pain relief 30. Would benefit from 3rd trimester anesthesia consultation (around 28-32 weeks) Sleep apnea instructed to have evaluation for sleep apnea NAFLD (nonalcoholic fatty liver disease) Unremarkable LFTs. Remains at risk for complications of related to pre-existing liver disease and suspected chronic hypertension. Maternal Medicine recommendations: 31. Serial liver function testing every trimester--to be ordered by primary guest services attendant Frequent headaches May be related to poor vision. Maternal Medicine recommendations: 32. should maintain follow-up with gumming machine operator 33. Riboflavin prescribed for headache prevention I recommend a follow-up consultation in 4 weeks. Mary Carmen is to follow up with her primary Obstetrical care provider for her routine care and acute OB concerns, including delivery as clinically indicated. Once again, we appreciate the opportunity to assist you in the care of Ms. Cross. If issues arise for which I can be of help before her next visit here, please contact me directly, or contact one of my partners if I am unavailable. She will continue seeing you for care. Sincerely, Annette Sauceda MD Division of Maternal- Medicine Department of Obstetrics, Gynecology, and Women's Health [facility] CIATE PUBLISHER documented in this encounter Plan of Treatment Not on file documented as of this encounter Results * SONOGRAM - COMPLETE (06/21/2019 11:11 AM CDT) Anatomical Region Laterality Modality Other 06/21/2019 11:1 1 AM CDT Narrative 06/21/2019 7:22 PM CDT ? [facility] Maternal Medicine ? [facility] ?PHONE: ??FAX: Pat. Name: ?MARY CARMEN CROSS Taurus Pat. No: ?[id number] Study Date: ?? 06/21/2019 ??11:11am , Age: ? 1995, 23 Pregnancies: ?? 3, Para 2 Height: ? 61 in Weight: ? 288 lb LMP: ?Unknown GA by US: ? 21w0d ?? LUISA: 11/01/2019 GA Selected: ??20w6d (From Known E) LUISA: ?11/02/2019 Referring MD: Ede Maldonado MD Dietitian Chief: ??Mariaa Chester RDMS CPT4: ? 19073,[id number] BMI: ?54.41 Hist/Ind: ? Anatomy Screen ?Maternal Liver Lesion ?Class IV Obesity ?CHTN ?PTD @36wks x2 MEASUREMENTS & AGE ? GROWTH EVALUATION Measurement ??GA ? Range ? Srce %for GA Ratios ----- ---- ------- BPD ??4.8 cm 20w3d (64f9b-63k3x) Hadl BPD 33% FL/BPD 0.73 HC ??18.9 cm 21w1d (06g1q-20a3s) Hadl HC ??57% FL/AC ??0.21 AC ??16.8 cm 21w5d (74q7q-12c2d) Hadl AC ??74% HC/AC ??1.13 (1.06 - 1.24) FL ?? 3.5 cm 21w0d (01x4b-14l3q) Hadl FL ??47% CI ? 0.68 (0.70 - 0.86* HL ?? 3.2 cm 20w6d (24w9m-21y2o) Errol HL ??50% Cere 2.3 cm 21w1d (74k0q-91w8r) Hill Cere57% GA for sonogram 21w0d (48q2p-72y1d) ?? Weight Estimate: based on (HL,BPD,HC,AC,FL) Avg ? Weight: 420 gm (358-481gm) Hadloc ? : 0lbs, 14oz ? Normal: 389 gm (292-487gm) Hadloc ? Wt% ? 73% for 20w6d Cervix: ??Approach: transvaginal Heart Rate: 166 bpm Amniotic Fluid Index: 05.8cm (Deepest Pocket) EVAL, PLACENTA Presentation: breech Umbilical Cord: 3 Vessels Placenta: posterior Heart Rate: 166 bpm Amniotic Fluid Volume: Normal Anatomy!Normal!Abnormal!Suboptimal!Prev. Seen!Comments Cranium ?! ?? x ??! ?! ?! ?! Mdl (CSP/Thal! ?? x ??! ?! ?! ?! Ventricles ?? ! ?? x ??! ?! ?! ?! Choroid Plexu! ?? x ??! ?! ?! ?! Cerebellum ?? ! ?? x ??! ?! ?! ?! Cisterna M. ??! ?? x ??! ?! ?! ?! Nuchal Fold ??! ?? x ??! ?! ?! ?! Profile ?! ?! ?! ? x ?! ?! Nasal Bone ?? ! ?! ?! ? x ?! ?! Lip ?! ?? x ??! ?! ?! ?! Spine ?! ?? x ??! ?! ?! ?! Lungs ?! ?? x ??! ?! ?! ?! 4 Chamber Hea! ?? x ??! ?! ?! ?! LVOT ? ! ?! ?! ? x ?! ?! RVOT ? ! ?! ?! ? x ?! ?! 3 Vessel View! ?! ?! ? x ?! ?! Cross-over ?? ! ?! ?! ? x ?! ?! Ductal Arch ??! ?! ?! ? x ?! ?! Aortic Arch ??! ?? x ??! ?! ?! ?! Caval View ?? ! ?? x ??! ?! ?! ?! Situs ?! ?? x ??! ?! ?! ?! Diaphragm ?! ?? x ??! ?! ?! ?! Stomach ?! ?? x ??! ?! ?! ?! Bowel ?! ?? x ??! ?! ?! ?! Kidneys ?! ?? x ??! ?! ?! ?! Bladder ?! ?? x ??! ?! ?! ?! 3 Vessel Cord! ?? x ??! ?! ?! ?! Cord In! ?? x ??! ?! ?! ?! Upper Extremi! ?? x ??! ?! ?! ?! Hands ?! ?? x ??! ?! ?! ?! Lower Extreme! ?? x ??! ?! ?! ?! Feet ? ! ?! ?! ? x ?! ?!unremarkable ?left, suboptimal ?right External Krista! ?? x ??! ?! ?! ?!Female Placental Cor! ?! ?! ? x ?! ?! CLINICAL SUMMARY sarath Number: 1 ?? A single fetus is seen in breech presentation. ??The measurements today are consistent with appropriate size for the LUISA provided. ??The LUISA is based on a prior outside ultrasound (confirmed). ??The amniotic fluid volume is within normal limits. ?? The anatomy was limited by challenging maternal acoustic properties and position. ?? No major malformations were seen within the limitations of ultrasound. ?? IMPRESSION: Single. live intrauterine at 20w6d ?? size is within normal limits ?? Amniotic fluid volume: within normal limits ?? Reassuring transvaginal cervical length ?? RECOMMEND: Ultrasound in 2 weeks for TVU CL and 4 weeks for growth. ?? Thank you for allowing us they opportunity to care for your patient. ?? Luis Daniel Damico MD <Electronic Signature> ??06/21/2019 07:23pm R Gary Maldonado MD [facility] ORDERABLES documented in this encounter Visit Diagnoses Diagnosis History of delivery- Primary NAFLD (nonalcoholic fatty liver disease) Other chronic nonalcoholic liver disease Liver lesion Other specified disorders of liver Supervision of high-risk of young multigravida (HCC) Supervision of high-risk of young multigravida Maternal morbid obesity, antepartum (HCC) Obesity complicating , childbirth, or the puerperium, antepartum condition or complication Short interval between pregnancies affecting , antepartum (HCC) Anxiety Anxiety state, unspecified Short interval between pregnancies affecting in second trimester, antepartum (HCC) History of delivery, currently in second trimester (HCC) Unspecified pre-existing hypertension complicating , second trimester (HCC) Anxiety during in second trimester, antepartum (HCC) Obesity complicating , second trimester (HCC) Morbid (severe) obesity due to excess calories (HCC) 18 weeks gestation of (HCC) state, incidental Short interval between pregnancies affecting , antepartum (HCC) Maternal morbid obesity, antepartum (HCC) Obesity complicating , childbirth, or the puerperium, antepartum condition or complication Frequent headaches Liver lesion Other specified disorders of liver Supervision of high-risk of young multigravida (HCC) Supervision of high-risk of young multigravida Chronic hypertension affecting (HCC) History of delivery NAFLD (nonalcoholic fatty liver disease) Other chronic nonalcoholic liver disease History of delivery, currently in second trimester (HCC) Unspecified pre-existing hypertension complicating , second trimester (HCC) Obesity complicating , second trimester (HCC) Obesity, unspecified classification, unspecified obesity type, unspecified whether serious comorbidity present 20 weeks gestation of (HCC) state, incidental * Assessment & Plan Note - Annette Sauceda MD - 06/05/2019 5:53 PM ASSOCIATE PUBLISHER Associated Problem(s): Frequent headaches May be related to poor vision. Maternal Medicine recommendations: 1. should maintain follow-up with gumming machine operator 2. Riboflavin prescribed for headache prevention CIATE PUBLISHER * Assessment & Plan Note - Annette Sauceda MD - 06/05/2019 5:49 PM ASSOCIATE PUBLISHER Associated Problem(s): NAFLD (nonalcoholic fatty liver disease) Unremarkable LFTs. Remains at risk for complications of related to pre-existing liver disease and suspected chronic hypertension. Maternal Medicine recommendations: 1. Serial liver function testing every trimester--to be ordered by primary guest services attendant CIATE PUBLISHER * Assessment & Plan Note - nAnette Sauceda MD - 06/05/2019 5:49 PM ASSOCIATE PUBLISHER Associated Problem(s): Sleep apnea instructed to have evaluation for sleep apnea CIATE PUBLISHER * Assessment & Plan Note - Annette Sauceda MD - 06/05/2019 5:48 PM ASSOCIATE PUBLISHER Associated Problem(s): Lumbar herniated disc Having significant pain at night after exercise Maternal Medicine recommendations: 1. resume physical therapy 2. instructed to use medicated heat strip as needed for pain relief 3. Would benefit from 3rd trimester anesthesia consultation (around 28-32 weeks) CIATE PUBLISHER * Assessment & Plan Note - Annette Sauceda MD - 06/05/2019 5:43 PM ASSOCIATE PUBLISHER Associated Problem(s): Chronic hypertension affecting (HCC) (Deleted) Suspected chronic hypertension. No current indication for antihypertensive medication. Chronic hypertension is associated with a 20-25% risk for superimposed preeclampsia. Low dose aspirin has a small-moderate benefit in the prevention of preeclampsia in at risk women ([place] DSR, 2008). There is no significant risk of low dose aspirin if initiated after the first trimester of . Low dose aspirin therapy is discussed. Antihypertensive therapy does not reduce the risk for superimposed preeclampsia. Aldomet and labetalol are the agents with the largest experience in (NIH, 2000). Both areFDA category C medications. Considerations with both include a potential association of beta-aidee use with growth disturbance and somnolence as an undesirable side effect of Aldomet. Labetalol is the agent which is typically used by providers at this institution. Diuretic therapy during is associated with a reduction in the normal physiologic expansion of plasma volume. The targets of therapy with chronic hypertension are typically <160 mm Hg systolic and 90-105 mmHg diastolic. Consistent blood pressures above 155/95 would be an indication to initiate antihypertensive medication. Aggressive normalization of blood pressure does not have benefit otherwise; it may have an undesirable impact on outcome. Aggressive treatment of hypertension does not reduce the risk for superimposed preeclampsia. Chronic hypertension is associated with an elevated risk of growth disturbance. It provides an indication for periodic assessments of the growth throughout . A reasonably aggressive approach is an ultrasound for growth at 28 weeks gestation with subsequent assessments at 4-6 week intervals thereafter (NIH, 2000). Chronic hypertension is associated with an elevated risk for morbidity and mortality. It provides an indication for formal antepartum surveillance. Such surveillance is typically initiated at 32 weeks gestation. The mechanics and performance characteristics of formal surveillance are discussed. movement monitoring is an adjunct form of surveillance. Maternal Medicine recommendations: 1. Baseline 24 urine for total protein--to be ordered by the primary guest services attendant prior to 20 completed weeks of 2. Goal blood pressures <160/100 3. If blood pressure consistently above 155/95 would benefit from initiating antihypertensive medication 4. Aspirin ( 162 mg) starting at 12 weeks--instructed to increase aspirin dose 5. Serial growth every four weeks after 24 weeks 6. Daily kick count starting at 28 weeks 7. Weekly 10 point biophysical profile starting at 32 weeks 8. Delivery initiation at 39 weeks 9. Would benefit from and weight reduction CIATE PUBLISHER * Assessment & Plan Note - Annette Sauceda MD - 06/05/2019 5:40 PM ASSOCIATE PUBLISHER Associated Problem(s): Diverticulitis Maternal Medicine recommendations: 1. nutrition counseling--initiated today 2. Encouraged to increase dietary fiber CIATE PUBLISHER * Assessment & Plan Note - Annette Sauceda MD - 06/05/2019 5:37 PM ASSOCIATE PUBLISHER Associated Problem(s): Supervision of high-risk of young multigravida (HCC) (Deleted) Please forward a copy of the aneuploidy screening results once available CIATE PUBLISHER * Assessment & Plan Note - Annette Sauceda MD - 06/05/2019 1:31 PM ASSOCIATE PUBLISHER Associated Problem(s): Maternal morbid obesity, antepartum (HCC) (Deleted) Obese women have higher rates of spontaneous miscarriage. Morbid obesity is associated with a host of complications: increased risk for preeclampsia and gestational hypertension, delivery, macrosomia, gestational diabetes, deep venous thrombosis, delivery, stillbirth and c ertain defects, such as open neural tube defects. deliveries are associated with an increased risk of complications, such as anesthetic complications, wound complications and infections. During , limited weight gain is recommended. The [place] of [employer] recommends a total weight gain in between 11-20 lb for women who have obese body habitus as defined by a body mass index greater than or equal to 30. Maternal Medicine recommendations: 1. nutrition counseling--being performed today 2. Folic acid supplementation prescribed 3. Recommend limiting weight gain to less than 15 lb 4. Continue following appropriate diet and regular exercise 1. Instructed increase dietary fiber 5. Would benefit from and weight loss 6. Would benefit from discussion of gastric surgery due to co-morbidities CIATE PUBLISHER * Assessment & Plan Note - Annette Sauceda MD - 06/05/2019 1:29 PM ASSOCIATE PUBLISHER Associated Problem(s): History of delivery (Deleted) In women with previous spontaneous , recurrence risk is 25-30%. We discussed that the standard intervention for many years has been 17 OH PC supplementation. Administration of 76-kxlfoye-fymnodgsvafc caproate (17-OHPC) weekly, starting from 16-18 weeks to 36 weeks has shown to reduce the risk of premature delivery. 17-OHPC has been found to decrease the risk of delivery at 37, 35, and 32 weeks is high risk patients. The middle or intermediate school principal data on the impact of progesterone exposure in on development is not available but the short term data is reassuring. I disclosed the current question regarding whether the effectiveness of IM progesterone supplementation is less than what was previously reported. I also discussed the role of serial cervical length assessments, aimed at identifying a prematurelyshortened cervix to allow intervention for a cerclage were the length to become shorter than 2.5 cmbefore 24 weeks. Cerclages have been shown to be of benefit for such women with prior history of spontaneous premature delivery and sonographic short cervix. We also discussed the alternatives such as: history indicated prophylactic cerclage as well as off-label use of prophylactic vaginal progesterone. We discussed that cervical length surveillance has been used to identify those women who would benefit from cerclage placement and avoid unnecessary cerclage in other women. I reviewed the risks regarding cerclage placement as well as the gestational age limitations for this intervention. We also discussed the safety profile of vaginal progesterone and that the bulk of information comes from women with a short cervix with and without a previous history of delivery. The patient voiced an understanding to the above conversation and all questions were answered to her satisfaction. Maternal Medicine Recommendations: 1. 1. Serial cervical length measurements from 16-24 weeks with consideration for cerclage should cervical length < 2.5 cm be identified 2. our office is assisting with prior authorization investigation for 17 OH PC supplementation, which the patient is interested in receiving 3. labor precautions 4. evaluation of abnormal vaginal discharge by the primary guest services attendant with treatment as indicated CIATE PUBLISHER * Assessment & Plan Note - Annette Sauceda MD - 06/05/2019 1:28 PM ASSOCIATE PUBLISHER Associated Problem(s): Short interval between pregnancies affecting , antepartum (HCC) (Deleted) Close interval pregnancies (less than 6 months) have an increased risk of delivery and small for gestation age neonates. Maternal Medicine recommendations: 1. serial growth every 4 weeks after 20 weeks CIATE PUBLISHER * Assessment & Plan Note - Annette Sauceda MD - 06/05/2019 1:27 PM ASSOCIATE PUBLISHER Associated Problem(s): Liver lesion (Deleted) Liver lesion assessed to be benign by imaging. Has not had a biopsy. Serum liver function testing unremarkable. A recent publication in Hepatology (2018) assessed the risk of complications following women who had liver biopsies performed during compared to women without the procedure. The study appreciated a moderately increased risk of and small for gestational age weight for the pregnancies of women who had a biopsy performed during . Maternal Medicine recommendations: 1. Maintain follow-up with Hepatology 1. if there is a high concern for concerning/malignant features, the risk of biopsy during may be acceptable compared to the the potential benefit of diagnostic information CIATE PUBLISHER * Assessment & Plan Note - Annette Sauceda MD - 06/05/2019 1:27 PM ASSOCIATE PUBLISHER Associated Problem(s): Cataracts, bilateral Having decreased nighttime vision Maternal Medicine recommendations: 1. recommend follow-up with gumming machine operator CIATE PUBLISHER * Assessment & Plan Note - Annette Sauceda MD - 06/05/2019 1:24 PM ASSOCIATE PUBLISHER Associated Problem(s): Anxiety (Deleted) Having significant nighttime anxiety. May have posttraumatic stress from the of her youngest child. At risk for mood deterioration. At risk for worsening of blood pressure and excessive weight gain from poor sleep. Maternal Medicine recommendations: 1. strongly recommend mental health counseling 2. Reassess mood at visits 3. would benefit from CIATE PUBLISHER documented in this encounter Care Teams Manager Assessment Relationship Specialty Start Date End Date Jonelle Elam MD [address] [place] [address] [place] [id number] PCP - General Family Medicine 10/24/18 documented as of this encounter
--- OUTSIDE RECORDS SUMMARY | 2024-04-14 17:45 | XMS_ITS | Encounter Summary ---
Author Organization [facility] Address [address] [place] [address] Care Team Providers Care Hrbp Name Role Phone Jonelle Elam MD Primary Care Provider Encounter Details Date Type Department Care Team (Late st Contact Info) Description 02/03/2020 2:00 PM DRILL PUNCH OPERATOR Procedure visit [facility] - [address] [facility], [place] [id number] Nik Kitchen MD [address] [id number] Lindsay Acuna MD [address] [address] Nonalcoholic fatty liver disease ; Liver lesion; Focal nodular hyperplasia of liver [...] as of this encounter Progress Notes * Giselle Sierra, RN - 02/03/2020 2:12 PM CST Diagnosis: NAFLD RN verified patient not , no implanted devices and NPO for prior 3 hours. Vital signs taken, procedure explained and consent signed. Date of Exam: 02/03/2020 Liver Stiffness: (LSM, kPa) median: 22.0 IQR (interquartile range): 3.3 IQR/Median% (ideally < 30%): 15 CAP (controlled attenuation parameter): 400 Technical Difficulty: None Ordering Provider: Maribel Kitchen [...] patients with nonalcoholic fatty liver disease. Gastroenterology 2019;156:7754-7887. Tammi MS, Rae R, Van Carlos Alberto ML, et al. Vibration-controlled transient elastography to assess fibrosis and steatosis in patients with nonalcoholic fatty liver disease. Clin Gastroenterol Hepatol 2019;17:156-163. Note: 1. Fibroscan cannot reliably identify earlier stages of fibrosis (ie distinguish F0 from F1 and F2)and thus a histologic stage cannot be predicted from the Fibroscan reading. 2. Assessing the likelihood of advanced fibrosis in patients with indeterminate liver stiffness measurement (LSM) by Fibroscan (e.g., 8-15 kPa) can be improved by also calculating the FIB4 score (Brissa et al. Hepatology Communications 2019;3:3146-5819) or NAFLD Fibrosis score (Johnston et al. Clinical Gastroenterology and Hepatology 2019;17:0596-4396. from routine clinical data. 3. Liver stiffness [...] change as additional supporting data becomes available. [email or web address] L PUNCH OPERATOR documented in this encounter Procedure Notes * Giselle Sierra, RN - 02/03/2020 2:23 PM CSTAssociated Order(s): PROC FIBROSCAN Diagnosis: NAFLD RN verified patient not , no implanted devices and NPO for prior 3 hours. Vital signs taken, procedure explained and consent signed. Date of Exam: 02/03/2020 Liver Stiffness: (LSM, kPa) median: 22.0 IQR (interquartile range): 3.3 IQR/Median% (ideally < 30%): 15 CAP (controlled attenuation parameter): 400 Technical Difficulty: None Ordering Provider: Maribel Kitchen [...] patients with nonalcoholic fatty liver disease. Gastroenterology 2019;156:4178-3918. Tammi MS, Rae R, Van Carlos Alberto ML, et al. Vibration-controlled transient elastography to assess fibrosis and steatosis in patients with nonalcoholic fatty liver disease. Clin Gastroenterol Hepatol 2019;17:156-163. Note: 1. Fibroscan cannot reliably identify earlier stages of fibrosis (ie distinguish F0 from F1 and F2)and thus a histologic stage cannot be predicted from the Fibroscan reading. 2. Assessing the likelihood of advanced fibrosis in patients with indeterminate liver stiffness measurement (LSM) by Fibroscan (e.g., 8-15 kPa) can be improved by also calculating the FIB4 score (Davyduke et al. Hepatology Communications 2019;3:8756-7356) or NAFLD Fibrosis score (Johnston et al. Clinical Gastroenterology and Hepatology 2019;17:8550-0095. from routine clinical data. 3. Liver stiffness [...] change as additional supporting data becomes available. [email or web address] L PUNCH OPERATOR documented in this encounter Plan of Treatment Not on file documented as of this encounter Procedures Procedure Name Priority Date/Time Associated Diagnosis Comments MN LIVER ELASTOGRAPHY Routine 02/03/2020 2:23 PM DRILL PUNCH OPERATOR Nonalcoholic fatty liver disease Liver lesion Focal nodular hyperplasia of liver documented in this encounter Results * PROC FIBROSCAN (02/03/2020 2:23 PM DRILL PUNCH OPERATOR) Narrative Tejas Smith MD - 02/03/2020 2:23 PM DRILL PUNCH OPERATOR Tejas Smith MD ? 02/07/2020 11:02 PM [...] patients with nonalcoholic fatty liver disease. Gastroenterology 2019;156:5865-7137. Tammi MS, Rae R, Van Carlos Alberto [...] improved by also calculating the FIB4 score (Davyduke et al. Hepatology Communications 2019;3:8415-3011) or NAFLD Fibrosis score (Johnston et al. Clinical Gastroenterology and Hepatology 2019;17:0172-7584. from routine clinical data. 3. Liver stiffness [...] change as additional supporting data becomes available. [email or web address] Maribel Kitchen MD PROCEDURE/MINOR SURG ICAL ORDERABLES documented in this encounter Visit Diagnoses Diagnosis Nonalcoholic fatty liver disease- Primary Other chronic nonalcoholic liver disease Liver lesion Other specified disorders of liver Focal nodular hyperplasia of liver Other specified disorders of liver documented in this encounter Care Teams Hrbp Relationship Specialty Start Date End Date Jonelle Elam MD [address] [place] [address] [place] [address] PCP - General Family Medicine 10/24/18 documented as of this encounter
--- OUTSIDE RECORDS SUMMARY | 2024-04-14 17:45 | XMS_ITS | Encounter Summary ---
Author Organization [facility] Address [address] [place] [place] [address] Care Team Providers Care Apprentice Cook Name Role Phone Jonelle Elam MD Primary Care Provider [phone] Encounter Details Date Type Department Care Team (Late st Contact Info) Description 03/21/2020 Orders Only [facility] [address] [place] [address] Rain Claros MD [address] [place] [phone] Gastroesophageal reflux disease without esophagitis; Diverticulitis; Morbid obesity (HCC); Preoperative clearance; NAFLD (nonalcoholic fatty liver disease) Social History [...] as of this encounter Visit Diagnoses Diagnosis Gastroesophageal reflux disease without esophagitis Esophageal reflux Diverticulitis Diverticulitis of colon (without mention of hemorrhage) Morbid obesity (HCC) Morbid obesity Preoperative clearance Preoperative examination, unspecified NAFLD (nonalcoholic fatty liver disease) Other chronic nonalcoholic liver disease documented in this encounter Care Teams Apprentice Cook Relationship Specialty Start Date End Date Jonelle Elam MD [address] [place] [address] [place] [phone] PCP - General Family Medicine 10/24/18 documented as of this encounter
--- OUTSIDE RECORDS SUMMARY | 2024-04-14 17:45 | XMS_ITS | Encounter Summary ---
Author Organization [facility] Address [address] [place] [address] Care Team Providers Care Burrer Operator Name Role Phone Jonelle Elam MD Primary Care Provider [phone] Reason for Visit * Reason Comments Obesity Follow Up Encounter Details Date Type Department Care Team (Late st Contact Info) Description 02/12/2020 11:00 AM BINDING CUTTER SYNTHETIC CLOTH Office Visit [facility] [address] [place] [phone] Manju Rainey, DO [address] [place], [place] [id number] Obesity, morbid, BMI 50 or higher (HCC) (Primary Dx); NAFLD (nonalcoholic fatty liver disease); Gastroesophageal reflux disease, unspecified whether esophagitis present; Irritable bowel syndrome with both constipation and diarrhea; History of vitamin D deficiency; History of iron deficiency; Essential hypertension; Frequent headaches Social History Tobacco Use Types Packs/Day Years [...] Sign Reading Time Taken Comments Blood Pressure 150/90 02/12/2020 11:00 AM BINDING CUTTER SYNTHETIC CLOTH Pulse 68 02/12/2020 11:00 AM BINDING CUTTER SYNTHETIC CLOTH Temperature 36.4 ??C (97.5 ??F) 02/12/2020 1 1:00 AM BINDING CUTTER SYNTHETIC CLOTH Respiratory Rate 16 02/12/2020 11:0 0 AM BINDING CUTTER SYNTHETIC CLOTH Oxygen Saturation 95% 02/12/2020 11: 00 AM BINDING CUTTER SYNTHETIC CLOTH Inhaled Oxygen Concentration - - Weight 142.9 kg (315 lb 1.6 oz) 020 11:00 AM BINDING CUTTER SYNTHETIC CLOTH Height 158.4 cm (5' 2.36 ) 02/12/2020 1 1:00 AM BINDING CUTTER SYNTHETIC CLOTH Body Mass Index 56.97 02/12/2020 11:00 AM BINDING CUTTER SYNTHETIC CLOTH documented in this encounter Patient Instructions * Patient Instructions* Manju Rainey, - 02/12/2020 12:43 PM BINDING CUTTER SYNTHETIC CLOTH Images from the original note were not included. Patient Education Weight Management EXTRUDING PRESS OPERATOR: Why it is important to manage your [...] foods. Some examples of high-fat foods include malay fries, doughnuts, ice cream, and cakes. ?? [...] on your weight loss goals. ?? Copyright [employer] 2019 Information is for End User's use only and may not be sold, redistributed or otherwise used for commercial purposes. All illustrations and images included in CareNotes?? are the copyrighted property of [employer], [employer]. or [employer] The above information is an corrective therapy aide teacher only. It is not intended as medical advice for individual conditions or treatments. Talk to your doctor, nurse or pharmacist before following any medical regimen to see if it is safe and effective for you. ING CUTTER SYNTHETIC CLOTH documented in this encounter Progress Notes * Manju Rainey DO - 02/12/2020 11:18 AM CST Images from the original note were not included. [facility] at [address] [address] . . Date of encounter: 02/12/2020 Provider: Manju Rainey DO Patient: Deya Campbell CSN: [id number] Specialty: Bariatric Date of : 1995 Visit type: Medical Weight loss Initial visit This 24 year old female patient was referred by Jonelle Elam MD for evaluation for Obesity and assessment for Medical weight loss . . History of Present Illness: The patient states the onset of the weight gain began as a child. Increased with and sig increased after her 2 month old baby with SIDS. Pt is post 4 months currently. Pt was inBariatric surgery program and has made some healthy lifestyle modifications and is losing weight. The weight gain and associated problems are getting worse . Associated symptoms include hypertension,reflux, hyperlipidemia, IBS both diarrhea and constipation, fatty liver, history of vitamin-D deficiency, history of iron deficiency. Pertinent negatives include no history of glaucoma, seizures, thyrotoxicosis, dysrhythmias, bulimia/ anorexia, alcohol or drug dependence. Patient reports that she tried a couple of blood pressure medicines but did not tolerate. Patient is encouraged to follow-up with her PCP and treat her blood pressure until such time that her weight reduction has improved blood pressure to the point she does not need medication. Reflux symptoms are often on. Hyperlipidemia managed by PCP. IBS alternating diarrhea constipation. Using fiber with some success. Patient is seeing GI and liver specialist. Fatty liver: Patient is seeing liver specialist. Will check vitamin-D and iron levels as she has not had labs done recently. Patient has no acute complaints at this visit. Allergies: Levaquin Keflex nifedipine labetalol Social history: Patient is has 3 children 1 . Two living children ages 8 and 4 months. Family history of obesity: Maternal grandfather. Goals for patient: Better health, better blood pressure, improve fatty liver and prevent diabetes. Triggers for eating: Stress, emotions, boredom, TV watching, late night eating. Weight loss barriers: Emotional eating. Readiness to change: 01/10. Confidence to change: 01/10. Activity level: Patient is working as an [employer] person and walking often on daily for 10 hr. She is currently not doing any resistance work. Sleep: 3-4 hours. Goal 7.5-9 hours. Nutrition: Patient is currently not taking a multivitamin. Encouraged take a multivitamin daily. Breakfast: Protein shake. Lunch: Salad. Dinner: Meat vegetable and starch. Fluids: Water. Snacks: Fiber bars The patient has attempted non physician directed weight loss strategies as described in the Diet history below and has failed to achieve durable weight loss. Due to weight gain patient started developing hypertension, reflux, hyperlipidemia, IBS, fatty liver, history of vitamin-D deficiency, history of iron deficiency, Care team: PCP, liver specialist, GI specialist, powerhouse laborer. On the basis of her refractory obesity and failure to achieve ferry terminal agent weight loss, she was seen at [facility] at [place], [place]. Weight History: Initial Weight: 320.7 lb. 02/12/2020 Weight: (!) 315 lb 1.6 oz (142.9 kg) BMI (Calculated): 56.96 Total Wt Loss in lb: 5.6 lb Initial neck 15.5 Initial waist 56 Obesity History Years at current weight? 1 Years at 35 pounds overweight? Years 100 pounds overweight? Age patient started to diet? 11 Maximum weight reached? 328 Most significant weight loss: Amount of weight loss 30 lbs Months weight loss sustained 2-3 months Method of weight loss trying to exercise and not eating right [place] body weight: 50.9 kg (112 lb 4.6 oz) Adjusted ideal body weight: 87.7 kg (193 lb 6.6 oz) Diet History: Diet History: Herbal and Non-Prescription [...] you have an unusual work schedule? na [place] Sleepiness Scale total points: 9 Past Medical History: Past Medical History: Diagnosis Date ??? Anxiety ??? Breast disorder history of breast lump-normal ??? Chronic hypertension 2011 ??? Diverticulitis ??? Fatty liver disease, nonalcoholic ??? Lumbar herniated disc 2015 Previously had physicial therapy and injections ??? Morbid obesity ??? 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 Sleep apnea Has not had a sleep study Past Surgical History: Past Surgical History: Procedure Laterality Date ??? Cataract Removal Left 2018 artificial lens ??? Tonsillectomy and Adenoidectomy 2002 ??? Tympanostomy 2001, 2002 Family History: Family History Problem Relation Name [...] ??? Renal Disease Brother ??? Seizures Brother Social History: Social History Socioeconomic History ??? [...] file Gets together: Not on file Attends [employer] service: Not on file Active member of [...] Social History Narrative ??? Not on file Medications: Outpatient Medications Marked as Taking for the 02/12/20 encounter (Office Visit) with Manju Rainey, DO Medication Sig ??? aspirin EC (ECOTRIN) 81 MG tablet Take 162 mg by mouth once daily Reasons: Increased Blood Pressure and Edema During ??? Ferrous Sulfate (SLOW FE) 142 (45 Fe) MG Patient will start tomorrow. Reasons: Anemia From Inadequate Iron in the Body (Not in a hospital admission) Allergy: Allergies Allergen Reactions ??? Levofloxacin Urticaria and Itching Chest pain, shortness of breath and pain and weakness in legs ??? Cephalexin Rash ??? Nifedipine Other Facial redness, palpitations ??? Labetalol Shortness of Breath Review of Systems: General ROS: negative Psychological ROS: Some emotional eating. Currently not being treated for anxiety or depression. Noself-harm thoughts. Ophthalmic ROS: negative ENT ROS: negative Hematological and Lymphatic ROS: History of vitamin-D deficiency, history of iron deficiency, Endocrine ROS: Obesity class 3, elevated fasting blood sugar Breast ROS: negative Respiratory ROS: negative Cardiovascular ROS: Hypertension needs improvement. Hyperlipidemia. Gastrointestinal ROS: IBS combination diarrhea and constipation. Fatty liver. Reflux. Genito-Urinary ROS: 4 months Musculoskeletal ROS: negative Neurological ROS: negative Dermatological ROS: negative Vital Signs: BP 150/90 Pulse 68 Temp 97.5 ??F (36.4 ??C) (Temporal) Resp 16 Ht 5' 2.36 (1.584 m) Wt 315 lb 1.6 oz (142.9 kg) SpO2 95% BMI 56.97 kg/m2 Weight: (!) 315 lb 1.6 oz (142.9 kg) Height: 5' 2.36 (158.4 cm) Body mass index is 56.97 kg/m??. Neck: 15.5 inches Waist: 56 inches Physical Exam: Constitutional Alert, awake and oriented without any apparent discomfort. Eyes: Anicteric. No subconjunctival hemorrhage. Neck Exam: Supple. Trachea midline. No thyromegaly. No cervical or supraclavicular lymphadenopathy Respiratory: Lungs were clear to auscultation bilaterally. No rales, rhonchi or wheezing Cardiovascular: Regular rate and rhythm. No rub, murmur or gallop. No lower extremity edema noted today. Abdomen: Abdomen was obese, soft, non tender, non distended. No palpable visceromegaly. No palpableventral hernias. Skin: Warm and dry. No ulcers. No rashes noted. Normal color. Extremities: Well perfused. No gross joint deformity noted Neurological: A& O X 3. Gait and stance normal. Psychiatric: The patient's mood and affect appeared to be appropriate. Patient is neatly dressed. Has spontaneous conversation and answers questions appropriately. Patient appears motivated to make healthy lifestyle modifications for further weight reduction. Labs Recent Labs Component Name 04/12/19 1514 01/02/19 1236 AST 16 20 ALT 12 24 Some lab results will be in paper format so may be scanned in the EMR. Labs ordered today, lipids, TSH, hemoglobin A1c, iron, vitamin-D Imaging studies No results found. Some Imaging studies results will be in paper format so may be scanned in the EMR. None to review. Metabolic worksheet.: Assessment and Plan Patient was recommended to optimize weight loss with liquid protein diet replacement therapy 30 gram protein once daily. All different dietary supplements were discussed. To restrict the Total calorie intake to less than 1900 Kcal /day. Avoid high calorie beverages. Avoid high Calorie diet : Rice, Wheat, Pasta, Lasagne, Potatoes, ice cream, soda , pizza. Restrict sugar to 15 gram / day. Also advised to control the portion of each meal to the size of a side plate. Take 64 oz of fluid per day. Recommend start Diet and Exercise Plan : 150 min aerobic activity and 3 days of resistance work weekly. Recommend to keep a Diet and Exercise log. Tracker such as ???my fitness Pal?? Assessment: ICD-10-CM 1. Obesity, morbid, BMI 50 or higher E66.01 HEMOGLOBIN A1C IRON BLOOD LIPID PROFILE TSH VITAMIN D 25-HYDROXY Healthy lifestyle modification with healthy nutrition, increased regular physical activity both aerobic and resistance components and proper sleep discussed today. Goals: 1. Less than 1900 calories per day with 1 or 2 protein meal replacements daily. 2. 90+ g protein daily. 3. 64+ oz fluid daily. 4. Work toward goal of 150 min of aerobic activity in 2-3 days of resistance work weekly. 5. 7.5-9 hours sleep daily. 6. Mindful eating with snacking only if truly hungry. Choose from low-calorie lean protein and produce snacks less than or equal to 100 calories. 2. NAFLD (nonalcoholic fatty liver disease) K76.0 Continue care with PCP and liver specialist. Weight reduction may improve fatty liver. 3. Gastroesophageal reflux disease, unspecified whether esophagitis present K21.9 Continue care with PCP and GI specialist. Weight reduction may improve reflux symptoms. 4. Irritable bowel syndrome with both constipation and diarrhea K58.2 Continue care with PCP and GIspecialist. May consider addition of fiber supplement and probiotic daily. 5. History of vitamin D deficiency Z86.39 Vitamin-D level ordered. 6. History of iron deficiency Z86.39 Iron level ordered. 7. Essential hypertension I10 Patient to follow-up with PCP for evaluation and management of hypertension. Use of medication for weight control is dependent on blood pressure being controlled. 8. Frequent headaches R51.9 Continue care with PCP. Consults and Test ordered or needs follow up: Continue care with PCP and specialist as directed. Follow-up with me in 1 month. Call or return sooner if any questions concerns or problems. Follow up: Will see me in 1 month. She verbalized understanding and is agreeable to this plan after shared decision making with patient. This encounter with the patient lasted 50 min, more than 50% of the time was in direct [id number]-[id number] with the patient regarding increased physical activity, reduced caloric intake, healthy diet and behavioral modifications. Manju Rainey DO CC: Jonelle Elam MD ING CUTTER SYNTHETIC CLOTH documented in this encounter Plan of Treatment Not on file documented as of this encounter Visit Diagnoses Diagnosis Obesity, morbid, BMI 50 or higher (HCC)- Primary NAFLD (nonalcoholic fatty liver disease) Other chronic nonalcoholic liver disease Gastroesophageal reflux disease, unspecified whether esophagitis present Irritable bowel syndrome with both constipation and diarrhea History of vitamin D deficiency Personal history of nutritional deficiency History of iron deficiency Personal history of diseases of blood and blood-forming organs Essential hypertension Frequent headaches documented in this encounter Care Teams Burrer Operator Relationship Specialty Start Date End Date Jonelle Elam MD [address] [place] [address] PCP - General Family Medicine 10/24/18 documented as of this encounter
--- OUTSIDE RECORDS SUMMARY | 2024-04-14 17:45 | XMS_ITS | Encounter Summary ---
Author Organization [facility] Address [address] [place] [address] Care Team Providers Care Garbage Man Name Role Phone Jonelle Elam MD Primary Care Provider [phone] Reason for Referral * Radiology Services (Routine) - Closed Specialty Diagnoses / Procedures Referred By Contac t Referred To Contact MRI Diagnoses Liver lesion NAFLD (nonalcoholic fatty liver disease) Procedures MRI ABDOMEN WWO Maribel Aburto MD [address] [place] [address] [facility] Mri [address] [place] [address] Referral ID Status Reason Start Date Expiration Date Visits Re quested Visits Authorized [id number] Closed 04/09/2020 04/09/2021 1 1 [facility]AN IN PRIVATE PRACTICE Encounter Details Date Type Department Care Team (Late st Contact Info) Description 04/09/2020 Orders Only [facility] - GI [address] [facility], [place] [address] Leo Quijano, RN Liver lesion ; NAFLD (nonalcoholic fatty liver disease) Social History [...] encounter Results * MRI ABDOMEN WWO CONTRAST (04/17/2020 3:43 PM PHYSICIAN IN PRIVATE PRACTICE) Anatomical Region Laterality Modality Abdomen Magnetic Resonan ce 04/17/2020 4:24 PM PHYSICIAN IN PRIVATE PRACTICE Impressions 04/20/2020 12:42 PM PHYSICIAN IN PRIVATE PRACTICE IMPRESSION: 1. Two observations in the right hemiliver remain consistent with focal nodular hyperplasia, the largest has increased in size and measures 4.3 cm. 2. Two new arterial enhancing observations in hepatic segment 8 and 7 are favored to represent focal nodular hyperplasia. Recommend follow-up MRI with Eovist in one year to assess stability. 2. Progression of diffuse hepatic steatosis, now severe. Dictated by Forrest Galvez MD (residential tech). I, Dr. KENNY COVARRUBIAS M.D. have personally reviewed and interpreted this examination/study. This report was electronically signed by KENNY COVARRUBIAS M.D. ??on 04/20/2020 12:42 PM . Narrative 04/20/2020 12:42 PM PHYSICIAN IN PRIVATE PRACTICE EXAMINATION: Magnetic resonance imaging (MRI) of the abdomen without and with contrast HISTORY: 24-year-old female with nonalcoholic fatty liver disease and hepatic observations identified in segment 7 and 8 measuring up to 4.3 cm TECHNIQUE: MRI of the abdomen was performed prior to and following the uneventful administration of 20 mL of Multihance intravenous gadolinium contrast according to standard protocol. COMPARISON: MRI abdomen with and without contrast dated 02/14/2019 FINDINGS: The visible lung bases are clear. There is severe diffuse hepatic steatosis. No liver surface nodularity is seen to suggest hepatic cirrhosis. A 4.3 x 4.3 cm observation consistent with focal nodular hyperplasia (based on prior Eovist enhancement on hepatobiliary phase on the prior study) in hepatic segment 7 (series 8, image 25) has increased in size from the prior study when it measured 3.9 x 3.9 cm. A 7 mm delayed enhancing focus in the center of the lesion is consistent with central scar, characteristic of FNH lesions. A second 1.8 x 2.3 cm arterially enhancing observation also consistent with focal nodular hyperplasia in hepatic segment 8 (series 8, image 39) is unchanged from the prior study. A 7 mm arterial enhancing observation adjacent to the focal nodular hyperplasia and hepatic segment 8 (series 8, image 35) demonstrates similar T1, T2, and enhancement characteristics. This observation was not clearly identified on the prior study and may be new or increased in conspicuity. A 1.1 cm faintly arterially enhancing observation with similar imaging characteristics in hepatic segment 7 (Series 9, Image 27) is new or more conspicuous from the prior study. Focal fatty infiltration along the falciform ligament (series 8, image 50) is unchanged. The intrahepatic and extrahepatic bile ducts are nondilated. The hepatic arterial anatomy is conventional. The portal vein and its major branches are patent. The hepatic veins are patent. The gallbladder is normal without evidence of wall thickening, pericholecystic fluid, or gallstones. The spleen is normal without focal lesion. The pancreas and adrenal glands are normal. Other than a simple right renal cyst, the kidneys appear normal in size and configuration and enhance symmetrically. No free intraperitoneal fluid is identified. Procedure Note Kenny Covarrubias MD - 04/20/2020 EXAMINATION: Magnetic resonance imaging (MRI) of the abdomen without and with contrast HISTORY: 24-year-old female with nonalcoholic fatty liver disease and hepatic observations identified in segment 7 and 8 measuring up to 4.3cm TECHNIQUE: MRI of the abdomen was performed prior to and following the uneventful administration of 20 mL of Multihance intravenous gadolinium contrast according to standard protocol. COMPARISON: MRI abdomen with and without contrast dated 02/14/2019 FINDINGS: The visible lung bases are clear. There is severe diffuse hepatic steatosis. No liver surface nodularityis seen to suggest hepatic cirrhosis. A 4.3 x 4.3 cm observation consistent with focal nodular hyperplasia (based on prior Eovist enhancement on hepatobiliary phase on the prior study) in hepatic segment 7 (series 8, image 25) has increased in size from the prior study when it measured 3.9 x 3.9 cm. A 7 mm delayed enhancing focus in the center of the lesion is consistent with central scar, characteristic of FNH lesions. A second 1.8 x 2.3 cm arterially enhancing observation also consistent with focal nodular hyperplasia in hepatic segment 8 (series 8, image 39) is unchanged from the prior study. A 7 mm arterial enhancing observation adjacent to the focal nodular hyperplasia and hepatic segment 8 (series 8, image 35) demonstrates similar T1, T2, and enhancement characteristics. This observation wasnot clearly identified on the prior study and may be new or increased in conspicuity. A 1.1 cm faintly arterially enhancing observation with similar imaging characteristics in hepatic segment 7 (Series 9, Image 27) is new or more conspicuous from the prior study. Focal fatty infiltration along the falciform ligament (series 8, image50) is unchanged. The intrahepatic and extrahepatic bile ducts are nondilated. The hepatic arterial anatomy is conventional. The portal vein and its major branches are patent. The hepatic veins are patent. The gallbladder is normal without evidence of wall thickening, pericholecystic fluid, or gallstones. The spleen is normal without focal lesion. The pancreas and adrenal glands are normal. Other than a simple right renal cyst, the kidneys appear normal in size and configurationand enhance symmetrically. No free intraperitoneal fluid is identified. IMPRESSION: 1. Two observations in the right hemiliver remain consistent with focal nodular hyperplasia, the largest has increased in size and measures 4.3 cm. 2. Two new arterial enhancing observations in hepatic segment 8 and 7are favored to represent focal nodular hyperplasia. Recommend follow-up MRI with Eovist in one year to assess stability. 2. Progression of diffuse hepatic steatosis, now severe. Dictated by Forrest Galvez MD (residential tech). I, Dr. KENNY COVARRUBIAS M.D. have personally reviewed and interpreted this examination/study. This report was electronically signed by KENNY COVARRUBIAS M.D. on04/20/2020 12:42 PM . Maribel Kitchen MD MR ORDERABLES documented in this encounter Visit Diagnoses Diagnosis Liver lesion- Primary Other specified disorders of liver NAFLD (nonalcoholic fatty liver disease) Other chronic nonalcoholic liver disease Liver lesion Other specified disorders of liver NAFLD (nonalcoholic fatty liver disease) Other chronic nonalcoholic liver disease documented in this encounter Care Teams Garbage Man Relationship Specialty Start Date End Date Jonelle Elam MD [address] [place] [address] [place] [address] PCP - General Family Medicine 10/24/18 documented as of this encounter
--- OUTSIDE RECORDS SUMMARY | 2024-04-14 17:45 | XMS_ITS | Encounter Summary ---
Author Organization [facility] Address [address] [place] [address] Care Team Providers Care Maintenance Welder Name Role Phone Jonelle Elam MD Primary Care Provider [phone] Reason for Visit * Reason Comments Ultrasound * Evaluate & Treat (Routine) - Closed Specialty Diagnoses / Procedures Referred By Ritika t Referred To Contact Maternal Medicine Diagnoses Obesity complicating , unspecified trimester (HCC) Liver disease, unspecified Fatty (change of) liver, not elsewhere classified Procedures ND FULL ROUT OBSTE CARE,VAGINAL Taurus Amos MD [address] [place] [address] [facility] [address] [place] [address] Referral ID Status Reason Start Date Expiration Date Visits Re quested Visits Authorized [id number] Closed 06/05/2019 12/02/2019 20 20 Encounter Details Date Type Department Care Team (Latest Contact Info) Description 06/21/2019 10:59 AM CDT - 06/21/2019 11:59 PM CDT Hospital Encounter [facility] [address] [place], [place] [id number] Amena Mack MD [address] [address] Luis Daniel Damico MD Discharge Disposition: Home or Self Care Social [...] 06/05/2019 02/12/2020 documented as of this encounter Plan of Treatment Not on file documented as of this encounter Procedures Procedure Name Priority Date/Time Associated Diagnosis Comments SONOGRAM - COMPLETE Routine 06/21/2019 11:11 AM CDT NAFLD (nonalcoholic fatty liver disease) Liver lesion Supervision of high-risk of young multigravida (HCC) documented in this encounter Results * SONOGRAM - COMPLETE (06/21/2019 11:11 AM CDT) Anatomical Region Laterality Modality Other 06/21/2019 11:1 1 AM CDT Narrative 06/21/2019 7:22 PM CDT ? [facility] ?PHONE: ??FAX: Pat. Name: ?MARY CARMEN CROSS Pat. No: ?[id number] Study Date: ?? 06/21/2019 ??11:11am , Age: ? 1995, 23 Pregnancies: ?? 3, Para 2 Height: ? 61 in Weight: ? 288 lb LMP: ?Unknown GA by US: ? 21w0d ?? LUISA: 11/01/2019 GA Selected: ??20w6d (From Known E) LUISA: ?11/02/2019 Referring MD: Ede Maldonado MD Garde Manager: ??Mariaa Chester RDMS CPT4: ? [address] BMI: ?54.41 Hist/Ind: ? Anatomy Screen ?Maternal Liver Lesion ?Class IV Obesity ?CHTN ?PTD @36wks x2 MEASUREMENTS & AGE ? GROWTH EVALUATION Measurement ??GA ? Range ? Srce %for GA Ratios ----- ---- ------- BPD ??4.8 cm 20w3d (39t5v-42h8g) Hadl BPD 33% FL/BPD 0.73 HC ??18.9 cm 21w1d (13f4p-34k4p) Hadl HC ??57% FL/AC ??0.21 AC ??16.8 cm 21w5d (83q5o-99x5w) Hadl AC ??74% HC/AC ??1.13 (1.06 - 1.24) FL ?? 3.5 cm 21w0d (82d8r-74j1k) Hadl FL ??47% CI ? 0.68 (0.70 - 0.86* HL ?? 3.2 cm 20w6d (71v5f-66y2p) Errol HL ??50% Cere 2.3 cm 21w1d (68w0x-29n1o) Hill Cere57% GA for sonogram 21w0d (21k4o-28c8d) ?? Weight Estimate: based on (HL,BPD,HC,AC,FL) Avg [...] Signature> ??06/21/2019 07:23pm R Gary Maldonado MD [facility] ORDERABLES documented in this encounter Visit Diagnoses Diagnosis Short interval [...] 20 weeks gestation of (HCC) state, incidental documented in this encounter Care Teams Maintenance Welder Relationship Specialty Start Date End Date Jonelle Elam MD [address] [place] [phone] PCP - General Family Medicine 10/24/18 documented as of this encounter
--- OUTSIDE RECORDS SUMMARY | 2024-04-14 17:45 | XMS_ITS | Encounter Summary ---
Author Organization [facility] Address [address] [place] [address] Care Team Providers Care Manager Metal Name Role Phone Jonelle Elam MD Primary Care Provider [phone] Encounter Details Date Type Department Care Team (Late st Contact Info) Description 04/12/2019 3:10 PM BUILDING ENERGY CONSULTANT - 04/12/2019 11:59 PM [facility] Hospital Encounter [facility] [address] [place] [address] Maribel Kitchen MD [address] [place] [address] Discharge Disposition: Home or Self Care Social [...] Sig Dispensed Refills Start Date End Date cyclobenzaprine (FLEXERIL) 10 MG tablet cyclobenzaprine 10 mg tablet Take 1 tablet 3 times a day by oral route for 30 days. 07/03/2019 LORazepam (ATIVAN) 1 MG tablet lorazepam 1 [...] MG tablet ranitidine 150 mg tablet 10/12/2018 documented as of this encounter Plan of Treatment Not on file documented as of this encounter Procedures Procedure Name Priority Date/Time Associated Diagnosis Comments HEPATIC FUNCTION PANEL Routine 04/12/2019 3:14 PM BUILDING ENERGY CONSULTANT Nonalcoholic fatty liver disease Liver lesion Focal nodular hyperplasia of liver documented in this encounter Results * (ABNORMAL) HEPATIC FUNCTION PANEL (04/12/2019 3:14 PM BUILDING ENERGY CONSULTANT) Protein Total 7.8 6.0 - 8.3 g/dL 020 4:02 PM [facility] Albumin 3.9 3.4 - 5.0 g/dL 04/12/2019 4:02 PM [facility] Bilirubin Total 0.7 0.2 - 1.2 mg/dL 04/03 4:02 PM [facility] Bilirubin Conjugated 0.2 0.0 - 0.5 mg/dL 04/12/2019 4:02 PM [facility] Bilirubin Unconjugated 0.5 Unconjugated Bilirubin is a calculated value: Reference ranges have not been established. mg/dL 04/12/2019 4:02 PM [facility] Alkaline Phosphatase 55 40 - 150 Units/L 04/12/2019 4:02 PM [facility] ALT 12 0 - 55 Units/L 04/12/2019 4:02 PM [facility] AST 16 5 - 34 Units/L 04/12/2019 4:02 PM [facility] Albumin/Globulin Ratio 1.0(L) 1.1 - 2.3 04/12/2019 4:02 PM [facility] Blood BLOOD SPECIMEN / Unknown Lab Venipuncture / Unknown 04/12/2019 3:14 PM BUILDING ENERGY CONSULTANT 04/12/2019 3:26 PM BUILDING ENERGY CONSULTANT Maribel Kitchen MD LAB - CHEMISTRY [facility] [address] [phone] documented in this encounter Visit Diagnoses Diagnosis Nonalcoholic fatty liver disease Other chronic nonalcoholic liver disease Liver lesion Other specified disorders of liver Focal nodular hyperplasia of liver Other specified disorders of liver documented in this encounter Care Teams Manager Metal Relationship Specialty Start Date End Date Jonelle Elam MD [address] [place] [address] [place] [phone] PCP - General Family Medicine 10/24/18 documented as of this encounter
--- OUTSIDE RECORDS SUMMARY | 2024-04-14 17:45 | XMS_ITS | Encounter Summary ---
Author Organization [facility] Address [address] [place] [address] Care Team Providers Care Animal Skinner Name Role Phone Jonelle Elam MD Primary Care Provider [phone] Reason for Visit * Radiology Services (Routine) - Closed Specialty Diagnoses / Procedures Referred By Ritika bonner Referred To Contact MRI Diagnoses Liver mass Procedures MRI ABDOMEN WWO CONTRAST Edward Alvarado MD [address] [place] [address] [facility] Mri [address] [place] [address] Referral ID Status Reason Start Date Expiration Date Visits Re quested Visits Authorized [id number] Closed 01/23/2019 03/08/2019 1 1 Encounter Details Date Type Department Care Team (Latest Contact Info) Description 02/14/2019 6:15 PM MOWER OPERATOR - 02/14/2019 11:59 PM MOWER OPERATOR [facility] [address] [place] [address] Edward Alvarado MD [address] [facility] [place] [address] Discharge Disposition: Home or Self Care Social History Tobacco Use Types Packs/Day Years Used Date Smoking Tobacco: Never Smokeless Tobacco: Never Sex and Gender Information Value Date Recorded [...] PO Q 6 H PRF NAUSEA/VOMITING 07/03/2019 raNITIdine (ZANTAC) 150 MG tablet ranitidine 150 mg tablet 10/12/2018 documented as of this encounter Plan of Treatment Not on file documented as of this encounter Procedures Procedure Name Priority Date/Time Associated Diagnosis Comments MRI ABDOMEN WWO CONTRAST Routine 02/14/2019 8:08 PM MOWER OPERATOR Liver mass documented in this encounter Visit Diagnoses Not on filedocumented in this encounter Administered Medications Inactive Administered Medications - up to 3 most recent administrations Medication Order MAR Action Action Date Dose Rate Site gadoxetate disodium (EOVIST) injection Intravenous, CONTRAST ONCE, Starting on Anisha 02/14/19 at 2008, Until 02/15/19 at 0155 $ Given - Contrast 02/14/2019 8:10 PM MOWER OPERATOR 10 mL documented in this encounter Care Teams Animal Skinner Relationship Specialty Start Date End Date Jonelle Elam MD [address] [place] [address] [place] [phone] PCP - General Family Medicine 10/24/18 documented as of this encounter
--- OUTSIDE RECORDS SUMMARY | 2024-04-14 17:45 | XMS_ITS | Encounter Summary ---
Author Organization [facility] Address [address] [facility] [place] [address] Care Team Providers Care Drier Belt Conveyor Name Role Phone Jonelle Elam MD Primary Care Provider [phone] Reason for Visit * Reason Onset Date Comments Question 08/11/2019 Pt LM re: loosin g mucus plug yesterday. Requesting to get in for a US to make sure everything is ok. Encounter Details Date Type Department Care Team (Late st Contact Info) Description 08/12/2019 Telephone [facility] Maternal & Care [address] [place] [id number] Ailyn Mendieta RN Question (Pt LM re: loosing mucus plug yesterday. Requesting to get in for a US to make sure everything is ok.) Social History Tobacco Use Types Packs/Day Years [...] encounter Miscellaneous Notes * Telephone Encounter - Ailyn Mendieta RN - 08/12/2019 11:03 AM CDT Returned patient's call today. Patient LM yesterday re: loosing mucous plug. Spoke with Deya today. Patient states she is have pain left side back. Patient reports she thinksit is her diverticulitis. Patient thought she was going into labor yesterday but states it is exactly like her last diverticulitis flare up. Patient advised to call her Primary OB, Dr. Maldonado's office for further recommendations. No MFM in office today. Patient should report to ED if pain remains andshe is not getting relief or can not get through to Dr. Maldonado's office. Patient verbalized understanding. Patient reports movement. Ailyn Mendieta RN 08/12/2019 11:07 AM documented in this encounter Plan of Treatment [...] Chronic hypertension affecting (HCC) History of delivery documented in this encounter Care Teams Drier Belt Conveyor Relationship Specialty Start Date End Date Jonelle Elam MD [address] [place] [phone] PCP - General Family Medicine 10/24/18 documented as of this encounter
--- OUTSIDE RECORDS SUMMARY | 2024-04-14 17:45 | XMS_ITS | Encounter Summary ---
Author Organization [facility] Address [address] [place] [address] Care Team Providers Care Sash Clamp Operator Name Role Phone Jonelle Elam MD Primary Care Provider [phone] Reason for Visit * Radiology Services (Routine) - Closed Specialty Diagnoses / Procedures Referred By Contac t Referred To Contact MRI Diagnoses Liver lesion NAFLD (nonalcoholic fatty liver disease) Procedures MRI ABDOMEN WWO CONTRAST Maribel Kitchen MD [address] [place] [address] [facility] Mri [address] [place] [address] Referral ID Status Reason Start Date Expiration Date Visits Re quested Visits Authorized [id number] Closed 04/09/2020 04/09/2021 1 1 Encounter Details Date Type Department Care Team (Late st Contact Info) Description 04/17/2020 2:42 PM HAIR DRESSER - 04/17/2020 11:59 PM HAIR DRESSER Hospital Encounter [facility] MRI [address] [place] [address] Maribel Kitchen MD [address] [place] [address] Discharge Disposition: Home or Self [...] COVID-19? No / Unsure 04/17/2020 2:31 PM HAIR DRESSER documented as of this encounter Medications at Time of Discharge Medication Sig Dispensed Refills Start Date End Date busPIRone (BUSPAR) 10 MG tablet TK 1 T PO BID 02/24/2020 10/27/2020 Ferrous Sulfate (SLOW FE) 142 (45 Fe) MGIndications:Iron Deficiency Anemia Patient will start tomorrow. Reasons: Anemia From Inadequate Iron in the Body 12/04/2020 losartan (COZAAR) 100 MG tablet Take 100 mg by mouth once daily 04/01/2020 07/01/2021 vitamin D, ergocalciferol, (DRISDOL) 1.25 MG (56601 UT) capsuleIndications:Vit gudino D Deficiency Take 1 capsule by mouth every 7 days Reasons: Vitamin D Deficiency 4 capsule 3 03/11/2020 10/27/2020 documented as of this encounter Plan of Treatment Not on file documented as of this encounter Procedures Procedure Name Priority Date/Time Associated Diagnosis Comments MRI ABDOMEN WWO CONTRAST Routine 04/17/2020 3:43 PM HAIR DRESSER Liver lesion NAFLD (nonalcoholic fatty liver disease) CREATININE - POCT INTERFACED Routine 04/17/2020 3:07 PM HAIR DRESSER documented in this encounter Results * MRI ABDOMEN WWO CONTRAST (04/17/2020 3:43 PM HAIR DRESSER) Anatomical Region Laterality Modality Abdomen Magnetic Resonan ce 04/17/2020 4:24 PM HAIR DRESSER Impressions 04/20/2020 12:42 PM HAIR DRESSER IMPRESSION: 1. Two observations in the right [...] now severe. Dictated by Forrest Galvez MD (college president). I, Dr. KENNY COVARRUBIAS M.D. have personally reviewed and interpreted this examination/study. This report was electronically signed by KENNY COVARRUBIAS M.D. ??on 04/20/2020 12:42 PM . Narrative 04/20/2020 12:42 PM HAIR DRESSER EXAMINATION: Magnetic resonance imaging (MRI) of the [...] now severe. Dictated by Forrest Galvez MD (college president). I, Dr. KENNY COVARRUBIAS M.D. have personally reviewed and interpreted this examination/study. This report was electronically signed by KENNY COVARRUBIAS M.D. on04/20/2020 12:42 PM . Maribel Kitchen MD MR ORDERABLES * CREATININE - POCT INTERFACED (04/17/2020 3:07 PM HAIR DRESSER) Creatinine POCT 0.88 0.30 - 1.30 mg/dL 04/17/2020 3:20 PM HAIR DRESSER [facility] eGFR >60 >60 mL/min/1.7 3 m2 04/17/2020 3:20 PM HAIR DRESSER [facility] Blood BLOOD SPECIMEN / Unknown 04/17/2020 3:07 PM HAIR DRESSER 04/17/2020 3:20 PM HAIR DRESSER Maribel Kitchen MD LAB - POINT OF CARE ORDERABLES Performing Organization Address City/State/[facility] Co de Phone Number [facility] [address] [place] [phone], [facility] [phone] documented in this encounter Visit Diagnoses Diagnosis Liver lesion Other specified disorders of liver NAFLD (nonalcoholic fatty liver disease) Other chronic nonalcoholic liver disease documented in this encounter Administered Medications Inactive Administered Medications - up to 3 most recent administrations Medication Order MAR Action Action Date Dose Rate Site gadobenate dimeglumine (MULTIHANCE) injection Intravenous, CONTRAST ONCE, Starting on 04/17/20 at 1543, Until 04/18/20 at 0144 $ Given - Contrast 04/17/2020 3:44 PM HAIR DRESSER 20 mL documented in this encounter Care Teams Sash Clamp Operator Relationship Specialty Start Date End Date Jonelle Elam MD [address] [place] [address] [place] [phone] PCP - General Family Medicine 10/24/18 documented as of this encounter
--- OUTSIDE RECORDS SUMMARY | 2024-04-14 17:45 | XMS_ITS | Encounter Summary ---
Author Organization [facility] Address [address] [place] [address] Care Team Providers Care Lump Machine Operator Name Role Phone Jonelle Elam MD Primary Care Provider Manju Rainey DO Unavailable [phone] Encounter Details Date Type Department Care Team (Latest Contact Info) Description 12/02/2020 1:10 PM CDT - 12/02/2020 11:59 PM CDT Hospital Encounter [facility] LAB OP DRAW STATION [address] [place] [phone] Jonelle Elam MD [address] [place] [address] [place] [address] Discharge Disposition: Home or Self [...] mg by mouth once daily 10/30/2020 04/22/2022 Ferrous Sulfate (SLOW FE) 142 (45 Fe) MGIndications:Iron Deficiency Anemia Patient will start tomorrow. Reasons: Anemia From Inadequate Iron in the Body 12/04/2020 losartan (COZAAR) 100 MG tablet Take 100 mg by mouth once daily 04/01/2020 07/01/2021 pantoprazole EC (PROTONIX) 40 MG tabletIndications:Kevin roesophageal reflux disease, unspecified whether esophagitis present Take 1 (one) tablet by mouth once daily 30 tablet 1 10/27/2020 12/30/2020 Paragard Intrauterine Copper IUD ParaGard T 380A 380 square mm intrauterine device Take by intrauterine route. 11/03/2021 topiramate (TOPAMAX) 50 MG tablet Take 100 mg by mouth once daily 02/09/2021 vitamin D, ergocalciferol, (DRISDOL) 1.25 MG (52247 UT) capsuleIndications:Vit gudino D Deficiency Take 1 (one) capsule by mouth every 7 days Reasons: Vitamin D Deficiency 4 capsule 3 10/27/2020 12/04/2020 documented as of this encounter Plan of [...] Procedure Name Priority Date/Time Associated Diagnosis Comments PTT [facility] Routine 12/02/2020 2:34 PM CDT Liver lesion PT-INR [facility] Routine 12/02/2020 2:34 PM CDT Liver lesion Nonalcoholic fatty liver disease PTH INTACT W/O CALCIUM Routine 2:34 PM CDT Liver lesion TSH REFLEX FREE T4 Routine 12/02/2020 2: 34 PM CDT Liver lesion VITAMIN B1 Routine 12/02/2020 2:34 PM CDT Morbid obesity (HCC) HEMOGLOBIN A1C Routine 12/02/2020 2:34 PM CDT Morbid obesity (HCC) VITAMIN D 25-HYDROXY Routine 12/02/2020 2:34 PM CDT Morbid obesity (HCC) CBC W AUTO DIFFERENTIAL Routine 12/02/2020 2:34 PM CDT Liver lesion Nonalcoholic fatty liver disease COMPREHENSIVE METABOLIC PANEL Routine 12/02/2020 2:34 PM CDT Liver lesion Nonalcoholic fatty liver disease MAGNESIUM BLOOD Routine 12/02/2020 2:34 PM CDT Morbid obesity (HCC) FOLATE Routine 12/02/2020 2:34 PM CDT Liver lesion BILIRUBIN DIRECT Routine 12/02/2020 2:34 PM CDT Liver lesion Nonalcoholic fatty liver disease VITAMIN B12 Routine 12/02/2020 2:34 PM CDT Liver lesion IRON + TRANSFERRIN PANEL Routine 12/02/2020 2:34 PM CDT Morbid obesity (HCC) FERRITIN Routine 12/02/2020 2:34 PM CDT Morbid obesity (HCC) LIPID PROFILE Routine 12/02/2020 2:34 PM CDT Morbid obesity (HCC) documented in this encounter Results * BILIRUBIN DIRECT (12/02/2020 2:34 PM CDT) Bilirubin Conjugated 0.2 0.1 - 0.5 mg/dL 12/02/2020 3:44 PM CDT [facility] Blood BLOOD SPECIMEN / Unknown Lab Venipuncture / Unknown 12/02/2020 2:34 PM CDT 12/02/2020 3:18 PM CDT Maribel Kitchen MD LAB - CHEMISTRY KACY HICKS [facility] [address] [place] [phone], [facility] [phone] * (ABNORMAL) VITAMIN D 25-HYDROXY (12/02/2020 2:34 PM CDT) Pathologist [facility] Vitamin D, 25 Hydroxy 20.0(L) 30.0 - 80.0 ng/mL 12/02/2020 4:17 PM CDT [facility] Comment: The recommendations for 25-Hydroxy Vitamin D clinical decision points are as follows: ? Deficient: ? <20.0 ng/mL ? Insufficient: ??20.0 - 29.9 ng/mL ? Sufficient: ? > or =30.0 ng/mL If the 25-Hydroxy Vitamin D results are inconsitent with clinical evidence, it is recommended that follow-up testing using a method such as LC/MS/MS be performed to confirm the result. Reference: ?The Endocrine Society Clinical Practice Guidelines. 2011 ? Blood BLOOD SPECIMEN / Unknown Lab Venipuncture / Unknown 12/02/2020 2:34 PM CDT 12/02/2020 3:18 PM CDT Keith Bojorquez MD LAB - CHEMISTRY KACY HICKS [facility] [address] [place] [address], [facility] [phone] * VITAMIN B1 (12/02/2020 2:34 PM CDT) Vitamin B1 Whole Blood 82 70 - 180 nmol/L 12/07/2020 10:09 AM CDT [facility] [employer] ([facility]) Comment: INTERPRETIVE INFORMATION: Vitamin B1, Whole Blood This assay measures the concentration of thiamine diphosphate (TDP), the primary active form of vitamin B1. Approximately 90 percent of vitamin B1 present in whole blood is TDP. Thiamine and thiamine monophosphate, which comprise the remaining 10 percent, are not measured. This test was developed and its performance characteristics determined by [employer]. It has not been cleared or approved by the [place] Food and Drug Administration. This test was performed in a CLIA certified laboratory and is intended for clinical purposes. Performed By: [employer] [address] [place] [address] Lap Regulator: Amena Guerrero MD Blood BLOOD SPECIMEN / Unknown Lab Venipuncture / Unknown 12/02/2020 2:34 PM CDT 12/02/2020 3:18 PM CDT Keith Bojorquez MD LAB - CHEMISTRY [facility] Performing Organization Address City/[facility]/ZIP Co de Phone Number [facility]) [address] * (ABNORMAL) IRON + TRANSFERRIN PANEL (12/02/2020 2:34 PM CDT) Iron 46 40 - 150 ug/dL 12/02/2020 4:48 PM CDT [facility] Transferrin 301 174 - 382 mg/dL 12/02/2020 4:48 PM CDT [facility] Transferrin Saturation % 12(L) 16 - 50 % 12/02/2020 4:48 PM CDT [facility] TIBC Calculated 376 240 - 450 ug/dL 12/02/2020 4:48 PM CDT [facility] Blood BLOOD SPECIMEN / Unknown Lab Venipuncture / Unknown 12/02/2020 2:34 PM CDT 12/02/2020 3:17 PM CDT Keith Bojorquez MD LAB - CHEMISTRY [facility]KS Performing Organization Address [facility]/ZIP Co de Phone Number [address] [address], [facility] [phone] * MAGNESIUM BLOOD (12/02/2020 2:34 PM CDT) Magnesium 1.9 1.6 - 2.6 mg/dL 12/02/2020 3:44 PM CDT [facility] Blood BLOOD SPECIMEN / Unknown Lab Venipuncture / Unknown 12/02/2020 2:34 PM CDT 12/02/2020 3:18 PM CDT Keith Bojorquez MD LAB - CHEMISTRY [facility]Y [facility]KS Performing Organization Address [facility]/ZIP Co de Phone Number [address] [phone], [facility] [phone] * (ABNORMAL) LIPID PROFILE (12/02/2020 2:34 PM CDT) Cholesterol Total 178 <200 mg/dL 12/02/2020 3:44 PM CDT [facility] HDL 53 >40 mg/dL 12/02/2020 3:44 PM CDT [facility] Comment: ATP III Classification of HDL Cholesterol: ? <40 mg/dL: ??Considered a major risk factor. ? >60 mg/dL: ??Considered a negative risk factor. ? LDL Calculated 88 <100 mg/dL 12/02/2020 3:44 PM CDT [facility] Comment: ATP III Classification of LDL Cholesterol: ?<100 mg/dL: ??Optimal ? 100 - 129 mg/dL: ??Near Optimal/Above Optimal ? 130 - 159 mg/dL: ??Borderline High ? 160 - 189 mg/dL: ??High ?>190 mg/dL: ??Very High ? Triglycerides 186(H) <150 mg/dL 12/02/2020 3:44 PM CDT [facility] Comment: ATP III Classification of Triglycerides: ?<150 mg/dL: ??Normal ? 150 - 199 mg/dL: ??Borderline High ? 200 - 400 mg/dL: ??High ?>500 mg/dL: ??Very High Blood BLOOD SPECIMEN / Unknown Lab Venipuncture / Unknown 12/02/2020 2:34 PM CDT 12/02/2020 3:18 PM CDT Keith Bojorquez MD LAB - CHEMISTRY KACY HICKS [facility] Organization Address City/State/[facility] Co de Phone Number [facility] [address] [place] [address], [facility] [phone] * HEMOGLOBIN A1C (12/02/2020 2:34 PM CDT) [facility] Signature Hemoglobin A1c 5.7 4.4 - 6.3 % 12/03/2020 9:24 AM CDT [facility] Estimated Average Glucose 117 mg/dL 12/03/2020 9:24 AM T [facility] Comment: HbA1c Interpretation: Treatment target values recommended by ADA and other clinical organizations should be used to evaluate metabolic control in patients. Treatment Target Values: Normal : < 5.7% Pre-diabetes: 5.7-6.4% Diabetes: Equal to or greater than 6.5% Reference: [place] [employer] Standards of Care in Diabetes -2014 In patients 70 years and older consider HbA1c target range of 7.0-7.5% Reference: ??Diabetes Mellitus in Older People: Position Statement on behalf of the International Association of Gerontology and Geriatrics (IAGG), the Diabetes Working Libertarian for Older People (EDWPOP), and the International Task Force of Experts in Diabetes. ??Joe García et al. J [place] [employer]. 2012 Test results diagnostic of diabetes should be repeated for confirmation. The Sebia Capillary 2 assay for the measurement of HbA1c is a National Glycohemoglobin Standardization Program (NGSP)certified method. Blood BLOOD SPECIMEN / Unknown Lab Venipuncture / Unknown 12/02/2020 2:34 PM CDT 12/02/2020 3:17 PM CDT Keith Bojorquez MD LAB - CHEMISTRY KACY HICKS [facility] [address] [place] [address], [place] [phone] * FERRITIN (12/02/2020 2:34 PM CDT) Pathologist [facility] Ferritin 31 13 - 204 ng/mL 12/02/2020 5:06 PM CDT [facility] Blood BLOOD SPECIMEN / Unknown Lab Venipuncture / Unknown 12/02/2020 2:34 PM CDT 12/02/2020 3:17 PM CDT Keith Bojorquez MD LAB - CHEMISTRY KACY HICKS [facility] [address] [place] [phone], [place] [phone] * COMPREHENSIVE METABOLIC PANEL (12/02/2020 2:34 PM CDT) Pathologist [facility] BUN 12 7 - 26 mg/dL 12/02/2020 3:44 PM CDT [facility] Creatinine 0.63 0.56 - 0.96 mg/dL 12/02/2020 3:44 PM CDT [facility] Sodium 142 136 - 145 mmol/L 12/02/2020 3:44 PM CDT [facility] Potassium 4.0 3.5 - 4.5 mmol/L 12/02/2020 3:44 PM CDT [facility] Chloride 105 98 - 107 mmol/L 12/02/2020 3:44 PM CDT [facility] CO2 25 22 - 29 mmol/L 12/02/2020 3:44 PM CDT [facility] Glucose 88 70 - 115 mg/dL 12/02/2020 3:44 PM [facility] Calcium 9.9 8.4 - 10.2 mg/dL 12/02/2020 3:[address] [facility] Protein Total 7.2 6.0 - 8.3 g/dL 12/02/2020 3:44 PM [facility] Albumin 4.2 3.4 - 5.0 g/dL 12/02/2020 3:44 PM [facility] Bilirubin Total 0.6 0.2 - 1.2 mg/dL 12/02/2020 3:44 PM [facility] Alkaline Phosphatase 66 40 - 150 U/L 12/02/2020 3:44 PM [facility] ALT 33 5 - 55 U/L 12/02/2020 3:44 PM [facility] AST 19 5 - 34 U/L 12/02/2020 3:44 PM [facility] Anion Gap 16 8 - 18 12/02/2020 3:44 PM [facility] BUN/Creatinine Ratio 19 7 - 23 12/02/2020 3:44 PM [facility] Osmolality Calculated 293 270 - 300 mOsm/kg 12/02/2020 3:44 PM [facility] Albumin/Globulin Ratio 1.4 1.1 - 2.3 12/02/2020 3:44 PM [facility] eGFR by CKD-EPI >90 >=90 mL/min/1.7 3 m2 12/02/2020 3:44 PM [facility] Blood BLOOD SPECIMEN / Unknown Lab Venipuncture / Unknown 12/02/2020 2:34 PM CDT 12/02/2020 3:18 PM CDT Maribel Kitchen MD LAB - CHEMISTRY KACY HICKS [facility] Organization Address City/State/ZIP Co de Phone Number [facility] [address] [place] [address], [facility] [phone] * PT-INR [facility] (12/02/2020 2:34 PM CDT) PT 13.2 12.1 - 14.8 Seconds 12/02/2020 3:32 PM [facility] INR 1.0 See Comment 12/02/2020 3:32 PM [facility] Comment:The suggested therap eutic range for standard coumadin (warfarin) therapy is an INR of 2.0-3.0. For high-risk patients (Mechanical Mitral Valve Prosthesis, etc.), the suggested prophylactic therapeutic range is an INR of 2.5-3.5. Blood BLOOD SPECIMEN / Unknown Lab Venipuncture / Unknown 12/02/2020 2:34 PM CDT 12/02/2020 3:17 PM CDT Maribel Kitchen MD LAB - COAGULATION OR DERABLES [facility] [address] [place] [address], [facility] [phone] * (ABNORMAL) CBC WITH DIFFERENTIAL (12/02/2020 2:34 PM CDT) WBC 7.3 3.5 - 10.5 10? 3 /uL 12/02/2020 4:06 PM [facility] RBC 4.82 3.80 - 5.20 10? 6 /uL 12/02/2020 4:06 PM [facility] Hemoglobin 12.6 12.0 - 15.6 g/dL 12/02/2020 4:06 PM [facility] Hematocrit 38.7 35.0 - 45.0 % 12/02/2020 4:06 PM [facility] MCV 80.3(L) 80.7 - 98.3 fL 12/02/2020 4:06 PM [facility] MCH 26.1(L) 26.7 - 34.0 pg 12/02/2020 4:06 PM [facility] MCHC 32.6 30.8 - 35.9 g/dL 12/02/2020 4:06 PM [facility] Platelet Count 196 150 - 400 10? 3 /uL 12/02/2020 4:06 PM [facility] Comment: Occasional platelet clump present on slide. Platelet count appears adequate. This is an appended report. ??These results have been appended to a previously preliminary verified report. RDW-SD 40.4 36.0 - 50.0 fL 12/02/2020 4:06 PM [facility] RDW-CV 13.8 11.2 - 14.8 % 12/02/2020 4:06 PM [facility] MPV 11.2 9.4 - 12.9 fL 12/02/2020 4:06 PM [facility] nRBC Absolute 0.00 0 10? 3 /uL 12/02/2020 4:06 PM [facility] nRBC Auto 0.0 0 /100 WBC 12/02/2020 4:06 PM [facility] Neutrophils % 56.9 35.0 - 70.0 % 12/02/2020 4:06 PM [facility] Lymphocytes % 33.0 20.0 - 43.0 % 12/02/2020 4:06 PM [facility] Monocytes % 7.3 5.0 - 13.0 % 12/02/2020 4:06 PM [facility] Eosinophils % 1.8 0.0 - 6.0 % 12/02/2020 4:06 PM [facility] Basophil % 0.7 0.0 - 2.0 % 12/02/2020 4:06 PM [facility] Neutrophils Absolute 4.2 1.6 - 7.0 10? 3 /uL 12/02/2020 4:06 PM [facility] Lymphocyte Absolute 2.4 1.1 - 3.9 10? 3 /uL 12/02/2020 4:06 PM [facility] Monocytes Absolute 0.53 0.26 - 1.07 10? 3 /uL 12/02/2020 4:06 PM [facility] Eosinophils Absolute 0.13 0.00 - 0.47 10? 3 /uL 12/02/2020 4:06 PM [facility] Basophils Absolute 0.05 0.00 - 0.08 10? 3 /uL 12/02/2020 4:06 PM [facility] Immature Granulocytes % 0.3 0.0 - 1.0 % 12/02/2020 4:06 PM CDT [facility] Immature Granulocytes Absolute 0.02 12/02/2020 4:06 PM CDT [facility] Immature Platelet Fraction 11.1(H) 1.1 - 6.2 % 12/02/2020 4:06 PM CDT [facility] Blood BLOOD SPECIMEN / Unknown Lab Venipuncture / Unknown 12/02/2020 2:34 PM CDT 12/02/2020 3:17 PM CDT Maribel Kitchen MD LAB - HEMATOLOGY ORD ERABLES [address] [address], [place] [phone] * FOLATE (12/02/2020 2:34 PM CDT) Folate 9.0 7.0 - 31.4 ng/mL 12/02/2020 4:16 PM CDT [facility] Blood BLOOD SPECIMEN / Unknown Lab Venipuncture / Unknown 12/02/2020 2:34 PM CDT 12/02/2020 3:18 PM CDT Keith Bojorquez MD LAB - CHEMISTRY KACY HICKS Performing Organization Address City/[facility]/ZIP Co de Phone Number [address] [address], [place] [phone] * VITAMIN B12 (12/02/2020 2:34 PM CDT) Vitamin B12 806 213 - 816 pg/mL 12/02/2020 4:17 PM CDT [facility] Blood BLOOD SPECIMEN / Unknown Lab Venipuncture / Unknown 12/02/2020 2:34 PM CDT 12/02/2020 3:18 PM CDT Keith Bojorquez MD LAB - CHEMISTRY [facility]ACY HICKS [address] [address], [place] [phone] * PTH INTACT ([facility]) (12/02/2020 2:34 PM CDT) PTH Intact 25.2 8.0 - 77.0 pg/mL 12/02/2020 3:49 PM CDT [facility] Blood BLOOD SPECIMEN / Unknown Lab Venipuncture / Unknown 12/02/2020 2:34 PM CDT 12/02/2020 3:18 PM CDT Keith Bojorquez MD LAB - CHEMISTRY ORDMolina HICKS Performing Organization Address City/[facility]/ZIP Co de Phone Number [address] [address], [facility] [phone] * PTT [facility] (12/02/2020 2:34 PM CDT) APTT 25.0 23.0 - 38.4 Seconds 12/02/2020 3:32 PM CDT [facility] Comment:Suggested therapeuti c range for full dose I.V. unfractionated heparin therapy for venous thromboembolism is 71 to 109 seconds. Blood BLOOD SPECIMEN / Unknown Lab Venipuncture / Unknown 12/02/2020 2:34 PM CDT 12/02/2020 3:17 PM CDT Keith Bojorquez MD LAB - COAGULATION OR DERABLES Performing Organization Address [facility]/ZIP Co de Phone Number [address] [address], [facility] [phone] * TSH REFLEX FREE T4 (12/02/2020 2:34 PM CDT) TSH 0.811 0.350 - 4.940 uIU/mL 12/02/2020 4:17 PM CDT [facility] Blood BLOOD SPECIMEN / Unknown Lab Venipuncture / Unknown 12/02/2020 2:34 PM CDT 12/02/2020 3:18 PM CDT Keith Bojorquez MD LAB - CHEMISTRY KACY HICKS [facility] [address] [place] [address], [facility] [phone] documented in this encounter Visit Diagnoses Diagnosis Liver lesion- Primary Other specified disorders of liver Nonalcoholic fatty liver disease Other chronic nonalcoholic liver disease Focal nodular hyperplasia of liver Other specified disorders of liver NAFLD (nonalcoholic fatty liver disease) Other chronic nonalcoholic liver disease Morbid obesity (HCC) Morbid obesity Elevated liver enzymes Nonspecific elevation of levels of transaminase or lactic acid dehydrogenase (LDH) documented in this encounter Care Teams Lump Machine Operator Relationship Specialty Start Date End Date Jonelle Elam MD [address] [place] [address] [place] [phone] PCP - General Family Medicine 10/24/18 Manju Rainey DO [address] [place] [address] Bariatrics 08/11/20 documented as of this encounter
--- OUTSIDE RECORDS SUMMARY | 2024-04-14 17:45 | XMS_ITS | Encounter Summary ---
Author Organization [facility] Address [address] [place] [address] Care Team Providers Care Fine Arts Chair Name Role Phone Jonelle Elam MD Primary Care Provider [phone] Encounter Details Date Type Department Care Team (Late st Contact Info) Description 05/15/2020 Orders Only [facility] Health Weight Management Services [address] [place] [phone] Manju Rainey DO [address] [place], [place] [address] Vitamin D deficiency Social History Tobacco Use [...] COVID-19? No / Unsure 04/17/2020 2:31 PM [employer] documented as of this encounter Plan of Treatment Not on file documented as of this encounter Visit Diagnoses Diagnosis Vitamin D deficiency documented in this encounter Care Teams Fine Arts Chair Relationship Specialty Start Date End Date Jonelle Elam MD [address] [place] [address] [place] [address] PCP - General Family Medicine 10/24/18 documented as of this encounter
--- OUTSIDE RECORDS SUMMARY | 2024-04-14 17:45 | XMS_ITS | Encounter Summary ---
Author Organization [facility] Address [address] [place] [address] Care Team Providers Care Supervisor Electron Tube Processing Name Role Phone Jonelle Elam MD Primary Care Provider [phone] Reason for Referral * Consult, Test & Treat (Routine) - Closed Specialty Diagnoses / Procedures Referred By Contac t Referred To Contact Diagnoses Short interval between pregnancies affecting , antepartum (HCC) Maternal morbid obesity, antepartum (HCC) Supervision of high-risk of young multigravida (HCC) Chronic hypertension affecting (HCC) History of delivery NAFLD (nonalcoholic fatty liver disease) Procedures MATERNAL MEDICINE CONSULT Taurus Maldonado MD [address] [facility] [place] [address] Referral ID Status Reason Start Date Expiration Date Visits Re quested Visits Authorized [id number] Closed 08/12/2019 02/08/2020 1 1 Reason for Visit * Reason Comments Consultation Ultrasound * Evaluate & Treat (Routine) - Closed Specialty Diagnoses / Procedures Referred By Contac t Referred To Contact Maternal Medicine Diagnoses Obesity complicating , unspecified trimester (HCC) Liver disease, unspecified Fatty (change of) liver, not elsewhere classified Procedures WI FULL ROUT OBSTE CARE,VAGINAL DELIV Taurus Maldonado MD [address] [place] [address] [facility] [address] [place] [address] Referral ID Status Reason Start Date Expiration Date Visits Re quested Visits Authorized [id number] Closed 06/05/2019 12/02/2019 20 20 Encounter Details Date Type Department Care Team (Latest Contact Info) Description 08/14/2019 1:31 PM CDT - 08/14/2019 11:59 PM CDT Hospital Encounter [facility] [address] [id number] Annette Sauceda MD [address] [address] Discharge Disposition: Home or Self Care Social [...] Sign Reading Time Taken Comments Blood Pressure 138/85 08/14/2019 1:47 PM CDT Pulse 100 08/14/2019 1:47 PM CDT Temperature 36.2 ??C (97.2 ??F) 08/14/2019 1:47 PM CD T Respiratory Rate - - Oxygen Saturation - - Inhaled Oxygen Concentration - - Weight 137.3 kg (302 lb 9.6 oz) 08/14/2019 1:47 PM CDT Height 152.4 cm (5') 08/14/2019 1:47 PM CDT Body Mass Index 59.1 08/14/2019 1:47 PM CDT documented in this encounter Discharge Instructions * Patient Instructions* Annette Sauceda MD - 08/14/2019 1:45 PM CDT Anbesol B vitamin complex documented in this encounter Medications at Time of Discharge Medication Sig Dispensed Refills Start Date End Date aspirin EC (ECOTRIN) 81 MG tabletIndications:Pre eclampsia [...] Progress Notes * Ailyn Mendieta RN - 08/14/2019 1:45 PM CDT Patient screened Negative for cough, SOB, fever. Patient is afebrile today upon entering the office. Patient is NOT wearing a mask today. Patient offered covid 19 handout.Patient here for follow up visit with Dr. Sauceda for liver lesion ,CHTN, h/o labor. Pt c/o broken tooth thatshe is awaiting dentist office to open back up from Covid. Pt states Monday she passed quarter sized or less piece of mucous from vagina.Pt c/o low back pain constantly. Pt had diverticulitis flare up on Monday and reports she is watching her diet and resting when she can. Pt states she has been dealing with her son's medical problems and has not had much time for herself. Pt is not currently working and is attending college. Pt states she has not gone to physical therapy d/t the covid precautions and has not had time for referral. Pt was told to start Slow FE this week due to slightly lowFE per her primary OB office.Patient reports positive movement. Denies cramping, contractions, bleeding, and leakage of fluid. Patient denies headache, epigastric pain and visual changes. VS per flowsheet. Please see note/letter per Dr. Sauceda. Ailyn Mendieta RN 08/14/2019 3:08 PM documented in this encounter Consult Notes * Annette Sauceda MD - 08/14/2019 1:45 PM CDTAssociated Order(s): AMB CONSULT TO MATERNAL MEDICNE Images from the original note were not included. Dear Dr. Maldonado, I had the pleasure of seeing your patient, Mary Carmen Cross for consultation today. Maternal Medicine Consultation visit Subjective: Mary Carmen Cross is a at 28w6d here for follow up consultation visit, at the request of Dr. Maldonado, for the following issues below. Since the last visit she notes breaking a tooth. Mary Carmen's is complicated by: Patient Active Problem List: [...] of systems: Constitutional: Negative for fevers Eyes: reports blurred vision when not wearing glasses Ears, nose, mouth, and throat: Negative for sore throat; intermittent pain and swelling near the broken tooth Respiratory: Negative for shortness of breath or cough Cardiovascular: Negative for chest pain Gastrointestinal: Negative for nausea; felt like she had a diverticulitis flare this past weekend; loose bowel movements; discomfort with bowel movements; epigastric pain; following appropriate diet Genital:Negative for abnormal vaginal discharge Urinary: Negative for dysuria Hematologic/lymphatic: Negative for vaginal bleeding or bloody stools Musculoskeletal:significant back pain; no falling episodes Neurological: frequent headaches Behavioral/Psych: recently a little saavedra from feeling 'trapped' in the house Integument: Denies skin changes Obstetric: movement appreciated, denies leakage of fluid; reports cramping; feeling like she is losing her mucous plug Objective Physical Examination: VS: BP 138/85 (BP SITE: RIGHT ARM, BP POSITION: SITTING, BP CUFF SIZE: 12) Pulse 100 Temp 97.2 ??F (36.2 ??C) (Temporal) Ht 5' (1.524 m) Wt 302 lb 9.6 oz (137.3 kg) BMI 59.1 kg/m2 See flowsheet Gen: no acute distress Mental: appropriate mood, behavior and speech Chest: nonlabored breathing Abdomen: gravid, obese, no epigastric tenderness Trunk: no costovertebral angle tenderness Extremities: no pedal edema; symmetric extremities Skin: No rash observed Current Outpatient Medications Medication Sig ??? aspirin EC (ECOTRIN) 81 MG tablet Take 162 mg by mouth once daily Reasons: Increased Blood Pressure and Edema During ??? folic acid (FOLVITE) 1 MG tablet Take 1 tablet by mouth once daily Reasons: obesity in ??? Vit-Fe Fumarate-FA ( VITAMIN PO) Take 1 tablet by mouth once daily ??? raNITIdine (ZANTAC) 150 MG tablet ranitidine 150 mg tablet ??? riboflavin 100 MG tablet Take 4 tablets by mouth once daily Reasons: Frequent Headaches No current facility-administered medications for this encounter. Stopped taking ranitidine Starting Slow Fe [iron supplement] Ultrasound:(see detailed report) appropriate growth Labs: Urine dipstick negative Assessment/Plan: 23 year old with IUP at 28w6d RECOMMENDATIONS: Anxiety Coping well without medication. At risk for mood deterioration. Maternal Medicine recommendations: 1. Would benefit from mental health counseling 2. Reassess mood at visits 3. Would benefit from Chronic hypertension affecting Blood pressure appropriate without medication. No current indication for antihypertensive medication. Remains at risk for complications of hypertensive . Maternal Medicine recommendations: 4. Goal blood pressures <155/95 5. blood pressure cuff resources given today 6. patient instructed to send a copy a blood pressure log to My Chart for my review 7. If blood pressure consistently above 155/95 would benefit from initiating antihypertensive medication 1. patient with adverse reactions to nifedipine and labetalol 8. continue aspirin (162 mg) 9. reassess growth at 33 and 37 weeks 10. Daily kick count starting at 28 weeks 11. Weekly 10 point biophysical profile starting at 32 weeks 12. Delivery initiation at 39 weeks 13. Would benefit from and weight reduction Diverticulitis Recent transient flare Maternal Medicine recommendations: 1. encouraged to increase dietary fiber History of delivery Had previously elected 17 OH PC supplementation that was never started by the primary assistive technology trainer.Now too late to start since well after 20 weeks. Recent cramping and losing some of her mucus plug. Maternal Medicine recommendations: 14. labor precautions 15. Warrant increased surveillance by primary assistive technology trainer Lumbar herniated disc Still with back pain. No interval falls. Received information for a physical therapy group in the mail, but has not yet contacted the group. Maternal Medicine recommendations: 16. instructed to contact the physical therapy group and ask whether or not they are seeing patients at this time. 17. fitted today for a maternity belt Maternal morbid obesity, antepartum Appropriate weight gain to date. Maternal Medicine recommendations: 18. continue folic acid supplementation prescribed 19. Recommend limiting weight gain to less than 15 lb 20. Continue following appropriate diet and regular exercise 21. Would benefit from and weight loss 22. Would benefit from discussion of gastric surgery due to co-morbidities Sleep apnea Previously instructed to have evaluation for sleep apnea NAFLD (nonalcoholic fatty liver disease) Remains at risk for complications of related to pre-existing liver disease and suspected chronic hypertension. Maternal Medicine recommendations: 23. Serial liver function testing every trimester--to be ordered by primary assistive technology trainer 24. please forward a copy of the glucose challenge test results Frequent headaches Has not been able to peanut picker riboflavin from her pharmacy. Maternal Medicine recommendations: 2. encouraged to look for an vovy-scu-xahless vitamin-B complex Additionally, we discussed the use of a topical anesthetic for relief of her tooth pain. I also encouraged her to be evaluated by a dentist. I recommend a follow-up consultation in 2 weeks. Mary Carmen is to follow up [...] you for care. Sincerely, Annette Sauceda MD Maternal- Medicine documented in this encounter Plan of Treatment Not on file documented as of this encounter Procedures Procedure Name Priority Date/Time Associated Diagnosis Comments SONOGRAM - COMPLETE Routine 08/14/2019 1:47 PM CDT Short interval between pregnancies affecting , antepartum (HCC) Maternal morbid obesity, antepartum (HCC) Supervision of high-risk of young multigravida (HCC) Chronic hypertension affecting (HCC) History of delivery NAFLD (nonalcoholic fatty liver disease) documented in this encounter Results * SONOGRAM - COMPLETE (08/14/2019 1:47 PM CDT) Anatomical Region Laterality Modality Other 08/14/2019 1:47 PM CDT Narrative 08/14/2019 2:51 PM CDT ? [facility] Maternal [facility] ? [facility] ?PHONE: ??FAX: Pat. Name: ?MARY CARMEN CROSS Pat. No: ?[id number] Study Date: ?? 08/14/2019 ??1:47pm , Age: ? 1995, 23 Pregnancies: ?? 3, Para 2 Height: ? 61 in Weight: ? 288 lb LMP: ?Unknown GA by Base: ?? 28w4d ?? LUISA: 11/02/2019 GA by US: ? 29w0d ?? LUISA: 10/30/2019 GA Selected: ??28w4d (From [facility]) LUISA: ?11/02/2019 Referring MD: Ede Maldonado MD Rig Manager: ??Jackeline Baker, RDMS, RDCS CPT4: ? 15268 BMI: ?54.41 Hist/Ind: ? Completed Anatomy Screen ?Maternal Liver Lesion ?Class IV Obesity ?CHTN ?PTD @36wks x2 MEASUREMENTS & AGE ? GROWTH EVALUATION Measurement ??GA ? Range ? Srce %for GA Ratios ----- ---- ------- BPD ??7.3 cm 29w2d ([id number]) Hadl BPD 60% FL/BPD 0.76 (0.71 - 0.87) HC ??27.2 cm 29w5d (85w5m-53t8a) Hadl HC ??54% FL/AC ??0.22 (0.20 - 0.24) AC ??25.1 cm 29w2d (95j9h-58v8c) Hadl AC ??63% HC/AC ??1.09 (0.99 - 1.18) FL ?? 5.6 cm 29w2d (83w6b-87d3e) Hadl FL ??55% CI ? 0.75 (0.70 - 0.86) HL ?? 5.0 cm 29w2d (52k2c-12c0w) Errol HL ??61% GA for sonogram 29w0d (41j1q-89v2t) ?? Weight Estimate: based on (BPD,HC,AC,FL) Hadlock [...] <Electronic Signature> ??08/14/2019 02:52pm Taurus Maldonado MD [facility] ORDERABLES documented in this encounter Visit Diagnoses Diagnosis NAFLD (nonalcoholic fatty liver disease)- Primary Other chronic nonalcoholic liver disease Short interval between pregnancies affecting , antepartum [...] of delivery, currently in third trimester (HCC) Obesity complicating , third trimester (HCC) Morbid (severe) obesity due to excess calories (HCC) Disease of digestive system affecting in third trimester (HCC) Diverticulitis of colon Diverticulitis of colon (without mention of hemorrhage) 28 weeks gestation of (HCC) state, incidental * Assessment & Plan Note - Annette Sauceda MD - 08/14/2019 4:26 PM CDT Associated Problem(s): Frequent headaches Has not been able to peanut picker riboflavin from her pharmacy. Maternal Medicine recommendations: 1. encouraged to look for an [id number]-[id number] vitamin-B complex * Assessment & Plan Note - Annette Sauceda MD - 08/14/2019 4:25 PM CDT Associated Problem(s): NAFLD (nonalcoholic fatty liver disease) Remains at risk for complications of related to pre-existing liver disease and suspected chronic hypertension. Maternal Medicine recommendations: 1. Serial liver function testing every trimester--to be ordered by primary assistive technology trainer 2. please forward a copy of the glucose challenge test results * Assessment & Plan Note - Annette Sauceda MD - 08/14/2019 4:25 PM CDT Associated Problem(s): Sleep apnea Previously instructed to have evaluation for sleep apnea * Assessment & Plan Note - Annette Sauceda MD - 08/14/2019 4:22 PM CDT Associated Problem(s): Maternal morbid obesity, antepartum (HCC) (Deleted) Appropriate weight gain to date. Maternal Medicine recommendations: 1. continue folic acid supplementation prescribed 2. Recommend limiting weight gain to less than 15 lb 3. Continue following appropriate diet and regular exercise 4. Would benefit from and weight loss 5. Would benefit from discussion of gastric surgery due to co-morbidities * Assessment & Plan Note - Annette Sauceda MD - 08/14/2019 4:20 PM CDT Associated Problem(s): Lumbar herniated disc Still with back pain. No interval falls. Received information for a physical therapy group in the mail, but has not yet contacted the group. Maternal Medicine recommendations: 1. instructed to contact the physical therapy group and ask whether or not they are seeing patientsat this time. 2. fitted today for a maternity belt * Assessment & Plan Note - Annette Sauceda MD - 08/14/2019 4:19 PM CDT Associated Problem(s): History of delivery (Deleted) Had previously elected 17 OH PC supplementation that was never started by the primary assistive technology trainer.Now too late to start since well after 20 weeks. Recent cramping and losing some of her mucus plug. Maternal Medicine recommendations: 1. labor precautions 2. Warrant increased surveillance by primary assistive technology trainer * Assessment & Plan Note - Annette Sauceda MD - 08/14/2019 4:19 PM CDT Associated Problem(s): Diverticulitis Recent transient flare Maternal Medicine recommendations: 1. encouraged to increase dietary fiber * Assessment & Plan Note - Annette Sauceda MD - 08/14/2019 4:17 PM CDT Associated Problem(s): Chronic hypertension affecting (HCC) (Deleted) Blood pressure appropriate without medication. No current indication for antihypertensive medication. Remains at risk for complications of hypertensive . Maternal Medicine recommendations: 1. Goal blood pressures <155/95 2. blood pressure cuff resources given today 3. patient instructed to send a copy a blood pressure log to My Chart for my review 4. If blood pressure consistently above 155/95 would benefit from initiating antihypertensive medication 1. patient with adverse reactions to nifedipine and labetalol 5. continue aspirin (162 mg) 6. reassess growth at 33 and 37 weeks 7. Daily kick count starting at 28 weeks 8. Weekly 10 point biophysical profile starting at 32 weeks 9. Delivery initiation at 39 weeks 10. Would benefit from and weight reduction * Assessment & Plan Note - Annette Sauceda MD - 08/14/2019 4:17 PM CDT Associated Problem(s): Anxiety (Deleted) Coping well without medication. At risk for mood deterioration. Maternal Medicine recommendations: 1. Would benefit from mental health counseling 2. Reassess mood at visits 3. Would benefit from documented in this encounter Care Teams Supervisor Electron Tube Processing Relationship Specialty Start Date End Date Jonelle Elam MD [address] [place] [address] [place] [phone] PCP - General Family Medicine 10/24/18 documented as of this encounter
--- OUTSIDE RECORDS SUMMARY | 2024-04-14 17:45 | XMS_ITS | Encounter Summary ---
Author Organization [facility] Address [address] [place] [address] Care Team Providers Care Web Mobile Designer Name Role Phone Jonelle Elam MD Primary Care Provider [phone] Reason for Visit * Reason Onset Date Comments Appointment 01/21/2020 Encounter Details Date Type Department Care Team (Late st Contact Info) Description 01/21/2020 Telephone [facility] [address] [place] [phone] Rain Claros MD [address] [place] [address] Appointment Social History Tobacco Use Types Packs/Day [...] encounter Miscellaneous Notes * Telephone Encounter - Ella Harley CNA - 01/21/2020 4:11 PM CDT Patient wishes to switch to [facility] Wt. Loss at this time. Does not feel she is ready for surgery. Pt was scheduled a f/u apt with documented in this encounter Plan of Treatment Not on file documented as of this encounter Visit Diagnoses Not on filedocumented in this encounter Care Teams Web Mobile Designer Relationship Specialty Start Date End Date Jonelle Elam MD [address] [place] [phone] PCP - General Family Medicine 10/24/18 documented as of this encounter
--- OUTSIDE RECORDS SUMMARY | 2024-04-14 17:45 | XMS_ITS | Encounter Summary ---
Author Organization [facility] Address [address] [place] [address] Care Team Providers Care .Net Developer Name Role Phone Jonelle Elam MD Primary Care Provider Manju Rainey DO Unavailable [phone] Reason for Referral * Other Medical (Routine) - Closed Specialty Diagnoses / Procedures Referred By Ritika obnner Referred To Contact Nutrition Services Diagnoses Morbid obesity (HCC) Keith Bojorquez MD [address] [place] [address] Referral ID Status Reason Start Date Expiration Date V isits Requested Visits Authorized [id number] Closed Specialty Services Required 11/25/2020 11/25/2021 5 5 Reason for Visit * Reason Comments Morbid Obesity Patient is here for initial bariatric visit. Encounter Details Date Type Department Care Team (Late st Contact Info) Description 11/25/2020 9:00 AM CDT Office Visit [facility] [address] [place] [phone] Keith Bojorquez MD [address] [place] [phone] Morbid obesity (HCC) (Primary Dx); Fatty liver; Snoring; Hypertension, unspecified type Social History Tobacco Use [...] Sign Reading Time Taken Comments Blood Pressure 160/96 11/25/2020 8:00 AM CDT Pulse 72 11/25/2020 8:00 AM CDT Temperature 36.7 ??C (98.1 ??F) 11/25/2020 8:00 AM CD T Respiratory Rate 18 11/25/2020 8:00 AM CDT Oxygen Saturation 100% 11/25/2020 8:00 AM CDT Inhaled Oxygen Concentration - - Weight 142 kg (313 lb) 11/25/2020 8:00 AM CDT Height 160 cm (5' 3 ) 11/25/2020 8:00 AM CDT Body Mass Index 55.45 11/25/2020 8:00 AM CDT documented in this encounter Progress Notes * Keith Bojorquez MD - 11/25/2020 2:43 PM CDT Images from the original note were not included. Weight Management Services [address] [address] PH: [phone] , Date of encounter: 11/25/2020 Provider: Keith Bojorquez MD Patient: Deya Campbell CSN: [id number] Specialty: Bariatric Surgery Date of : 1995 Visit type: Bariatric Initial visit Deya Campbell 25 year old female patient of Jonelle Elam MD seen today for Morbid Obesity and potential evaluation for Bariatric Surgery. History of Present Illness: The patient reports, onset of the weight gain began at childhood. The patient has been progressively gaining weight since then. Weight gain and weight associated conditions are progressively getting worse. Patient has attempted several weight loss strategies as detailed in the diet history, and hasfailed to achieve durable weight loss. Due to weight gain, patient started developing Benign Essential Hypertension, Gastroesophageal reflux disease and Morbid Obesity. On the basis of her refractorymorbid obesity and failure to achieve mcfp weight loss, she was seen at [facility] Weight Management Services at [place], [place]. Patient has requested Sleeve Gastrectomy. Weight History: Initial Weight: 320 lb 11.2 [...] 313 lb (142 kg) BMI (Calculated): 55.46 Obesity History Years at current weight? 1 Years at 35 pounds overweight? Years 100 pounds overweight? Age patient started to diet? 11 Maximum weight reached? 328 Most significant weight loss: Amount of weight loss 30 lbs Months weight loss sustained 2-3 months Method of weight loss trying to exercise and not eating right Artie body weight: 52.4 kg (115 lb 8.3 oz) Adjusted ideal body weight: 88.2 kg (194 lb 8.2 oz) Diet History: Diet History: Herbal and [...] you have an unusual work schedule? na [place] Sleepiness Scale total points: 9 Past Medical [...] Strain: ??? Difficulty of Paying Living Expenses: Food Insecurity: ??? Worried About Running Out of Food in the Last Year: ??? Ran Out of Food in the Last Year: Transportation Needs: ??? Lack of Transportation (Medical): ??? Lack of Transportation (Non-Medical): Physical Activity: ??? Days of Exercise per Week: ??? Minutes of Exercise per Session: Stress: ??? Feeling of Stress : Social Connections: ??? Frequency of Communication with Friends and Family: ??? Frequency of Social Gatherings with Friends and Family: ??? Attends [employer] Services: ??? Active Member of Clubs or Organizations: ??? Attends Club or Organization Meetings: ??? Marital Status: Intimate Partner Violence: ??? Fear of Current or Ex-Partner: ??? Emotionally Abused: ??? Physically Abused: ??? Sexually Abused: Medications: Outpatient Medications Marked as Taking for the 11/25/20 encounter (Office Visit) with Scott Bojorquez MD Medication Sig ??? escitalopram (LEXAPRO) 10 MG tablet Take 10 mg by mouth once daily ??? Ferrous Sulfate (SLOW FE) 142 (45 Fe) MG Patient will start tomorrow. Reasons: Anemia From Inadequate Iron in the Body ??? losartan (COZAAR) 100 MG tablet Take 100 mg by mouth once daily ??? pantoprazole EC (PROTONIX) 40 MG tablet Take 1 (one) tablet by mouth once daily ??? Paragard Intrauterine Copper IUD ParaGard T 380A 380 square mm intrauterine device Take by intrauterine route. ??? topiramate (TOPAMAX) 50 MG tablet Take 1 tablet by mouth once daily ??? vitamin D, cholecalciferol, 50 MCG (2000 UT) tablet Take 2,000 Units by mouth once daily ??? vitamin D, ergocalciferol, (DRISDOL) 1.25 MG (22795 UT) capsule Take 1 (one) capsule by mouth every 7 days Reasons: Vitamin D Deficiency (Not in a hospital admission) Allergy: Allergies [...] pain Neurological ROS: negative Dermatological ROS: negative Review of Systems Physician declaration: I have reviewed the ROS :Keith Bojorquez MD 11/25/2020 REVIEW OF SYSTEMS Vital Signs: BP 160/96 Pulse 72 Temp 98.1 ??F (36.7 ??C) (Temporal) Resp 18 Ht 5' 3 (1.6 m) Wt 313 lb (142 kg) SpO2 100% BMI 55.45 kg/m2 Weight: (!) 313 lb (142 kg) Height: 5' 3 (160 cm) Body mass index is 55.45 kg/m??. Physical Exam: Physical Exam Vitals and nursing note reviewed. [...] and time. Psychiatric: Behavior: Behavior normal. Labs No results for input(s): WBC, RBC, HGB, HCT, PLTCOUNT in the last 65335 hours. No results for input(s): SODIUM, POTASSIUM, CO2, BUN, CREATININE in the last 95613 hours. Invalid input(s): CLORIDE No results for input(s): GLUCOSE in the last 80990 hours. Recent Labs Component Name 04/12/19 1514 01/02/19 1236 AST 16 20 ALT 12 24 No results for input(s): LDL, HDL, TRIG, TSH in the last 84172 hours. No results for input(s): HGBA1C in the last 47156 hours. Some lab results will be in paper format so may be scanned in the EMR. Imaging studies No results found. Some Imaging studies results may be in paper format and will be scanned in the EMR. Assessment and Plan: Deya Campbell is an 25 year old female with (E66.01) Morbid obesity (primary encounter diagnosis) Patient was recommended to optimize pre op weight loss with high protein diet replacement meal therapy. Different dietary supplements and modifications were discussed. Patient was recommended to institute and optimize structured exercise regimen. Different exercise strategies were discussed. I willrefer her to a dietitian for diet counseling and patient was encouraged to meet academic counselor to optimize physical exercises. Mandatory weight loss before surgery 10-20 pounds. Patient may have 1 months mandatory supervised diet requirement as per insurance plan except medicare. Patient will/may follow up with the primary care doctor/Surgeon/Advanced practitioner/Bariatrician every month as required by her insurance. Patient will be evaluated next month. (E66.01) Morbid obesity (primary encounter diagnosis) (K76.0) Fatty liver (R06.83) Snoring (I10) Hypertension, unspecified type Consults and work up as indicated: Dietitian consult for diet counseling Psychology/psychiatric consult for pre-operative clearance. Blood work to evaluate & baseline establishment for any vitamin/mineral deficiency. Patient certainly meets National [employer] of Health criteria for bariatric surgery, that [...] exercise, diet, and regular close follow-up with environmental engineer scientist, behavioral therapist and surgical team. In addition, [...] loss outcomes and management of short and mcfp complications. I have discussed at great length, [...] Patient has been also discussed the potential mcfp, metabolic, nutritional, and mineral derangements complications. Patient [...] and an iron profile. I will also evaluate zinc levels, as needed and during initial [...] be completed prior to the bariatric procedure as needed. A venous duplex scan of bilateral lower extremities may be ordered prior to surgery. Risks, benefits and alternatives discussed, and informed consent obtained, [...] all questions and concerns. All bariatric surgeries discussed can significantly improve her health as well as improve or resolve her comorbid medical conditions. Follow up: Will see me/PA/DIGGING MACHINE OPERATOR in 1 months. Keith Bojorquez MD CC: Jonelle Elam MD documented in this encounter Plan of Treatment Scheduled Referrals Name Type Priority Associated Diagnoses Order Schedule AMB REFERRAL TO MED NUTRITION THERAPY Outpatient Referral Routine Morbid obesity (HCC) 5 Occurrences starting 11/25/2020 until 11/25/2021 documented as of this encounter Goals Goal [...] as of this encounter Results * (ABNORMAL) VITAMIN D 25-HYDROXY (12/02/2020 2:34 PM CDT) [facility] Vitamin D, 25 Hydroxy 20.0(L) 30.0 - 80.0 ng/mL 12/02/2020 4:17 PM CDT [facility] Comment: The recommendations for 25-Hydroxy Vitamin [...] - CHEMISTRY KACY HICKS Performing Organization Address City/[facility]/ZIP Co de Phone Number [facility] [address] [place] [address], [facility] [phone] * VITAMIN B1 (12/02/2020 2:34 PM CDT) Pathologist [facility] Vitamin B1 Whole Blood 82 70 - 180 nmol/L 12/07/2020 10:09 AM CDT [facility] ([facility]) Comment: INTERPRETIVE INFORMATION: Vitamin B1, Whole Blood This assay measures the concentration of thiamine diphosphate (TDP), the primary active form of vitamin B1. Approximately 90 percent of vitamin B1 present in whole blood is TDP. Thiamine and thiamine monophosphate, which comprise the remaining 10 percent, are not measured. This test was developed and its performance characteristics determined by [facility]. It has not been cleared or approved by the [place] Food and Drug Administration. This test was performed in a CLIA certified laboratory and is intended for clinical purposes. Performed By: [facility] [address] [place] [address] Career Center Director: Amena Guerrero MD Blood BLOOD SPECIMEN / Unknown Lab Venipuncture / Unknown 12/02/2020 2:34 PM CDT 12/02/2020 3:18 PM CDT Keith Bojorquez MD LAB - CHEMISTRY KACY HICKS Performing Organization Address City/[facility]/ZIP Co de Phone Number [facility] [place] [facility] ([facility]) [address] * (ABNORMAL) IRON + TRANSFERRIN PANEL (12/02/2020 2:34 PM CDT) Pathologist [facility] Iron 46 40 - 150 ug/dL 12/02/2020 4:48 PM CDT [facility] Transferrin 301 174 - 382 mg/dL 12/02/2020 4:48 PM CDT [facility] Transferrin Saturation % 12(L) 16 - 50 % 12/02/2020 4:48 PM CDT [facility] TIBC Calculated 376 240 - 450 ug/dL 12/02/2020 4:48 PM CDT [facility] Blood BLOOD SPECIMEN / Unknown Lab Venipuncture / Unknown 12/02/2020 2:34 PM CDT 12/02/2020 3:17 PM CDT Keith Bojorquez MD LAB - CHEMISTRY KACY HICKS Performing Organization Address City/[facility]/ZIP Co de Phone Number [address] [address], [facility] [phone] * MAGNESIUM BLOOD (12/02/2020 2:34 PM CDT) Magnesium 1.9 1.6 - 2.6 mg/dL 12/02/2020 3:44 PM CDT [facility] Blood BLOOD SPECIMEN / Unknown Lab Venipuncture / Unknown 12/02/2020 2:34 PM CDT 12/02/2020 3:18 PM CDT Keith Bojorquez MD LAB - CHEMISTRY KACY HICKS Performing Organization Address City/[facility]/ZIP Co de Phone Number [address] [address], [facility] [phone] * (ABNORMAL) LIPID PROFILE (12/02/2020 2:34 PM CDT) Cholesterol Total 178 <200 mg/dL 12/02/2020 3:44 PM CDT [facility] HDL 53 >40 mg/dL 12/02/2020 3:44 PM CDT [facility] Comment: ATP III Classification of HDL Cholesterol: ? <40 mg/dL: ??Considered a major risk factor. ? >60 mg/dL: ??Considered a negative risk factor. ? LDL Calculated 88 <100 mg/dL 12/02/2020 3:44 PM CDT [facility] Comment: ATP III Classification of LDL Cholesterol: ?<100 mg/dL: ??Optimal ? 100 - 129 mg/dL: ??Near Optimal/Above Optimal ? 130 - 159 mg/dL: ??Borderline High ? 160 - 189 mg/dL: ??High ?>190 mg/dL: ??Very High ? Triglycerides 186(H) <150 mg/dL 12/02/2020 3:44 PM CDT [facility] Comment: ATP III Classification of Triglycerides: ?<150 mg/dL: ??Normal ? 150 - 199 mg/dL: ??Borderline High ? 200 - 400 mg/dL: ??High ?>500 mg/dL: ??Very High Blood BLOOD SPECIMEN / Unknown Lab Venipuncture / Unknown 12/02/2020 2:34 PM CDT 12/02/2020 3:18 PM CDT Keith Bojorquez MD LAB - CHEMISTRY [facility] Organization Address City/State/ZIP Co de Phone Number [facility] [address] [place] [address], [facility] [phone] * HEMOGLOBIN A1C (12/02/2020 2:34 PM CDT) Hemoglobin A1c 5.7 4.4 - 6.3 % 12/03/2020 9:24 AM CDT [facility] Estimated Average Glucose 117 mg/dL 12/03/2020 9:24 AM CDT [facility] Comment: HbA1c Interpretation: Treatment target values recommended by ADA and other clinical organizations should be used to evaluate metabolic control in patients. Treatment Target Values: Normal : < 5.7% Pre-diabetes: 5.7-6.4% Diabetes: Equal to or greater than 6.5% Reference: [place] [employer] Standards of Care in Diabetes -2014 In patients 70 years and older consider HbA1c target range of 7.0-7.5% Reference: ??Diabetes Mellitus in Older People: Position Statement on behalf of the International Association of Gerontology and Geriatrics (IAGG), the Diabetes Working Alliance Party for Older People (EDWPOP), and the International Task Force of Experts in Diabetes. ??Joe García, et al. J [place] [employer] Association. 2012 Test results diagnostic of diabetes should be repeated for confirmation. The Sebia Capillary 2 assay for the measurement of HbA1c is a National Glycohemoglobin Standardization Program (NGSP)certified method. Blood BLOOD SPECIMEN / Unknown Lab Venipuncture / Unknown 12/02/2020 2:34 PM CDT 12/02/2020 3:17 PM CDT Keith Bojorquez MD LAB - CHEMISTRY KACY HICKS [facility] [address] [place] [phone], [place] [phone] * FERRITIN (12/02/2020 2:34 PM CDT) Ferritin 31 13 - 204 ng/mL 12/02/2020 5:06 PM CDT [facility] Blood BLOOD SPECIMEN / Unknown Lab Venipuncture / Unknown 12/02/2020 2:34 PM CDT 12/02/2020 3:17 PM CDT Keith Bojorquez MD LAB - CHEMISTRY KACY HICKS [address] [address], [place] [phone] documented in this encounter Visit Diagnoses Diagnosis Morbid obesity (HCC)- Primary Morbid obesity Fatty liver Other chronic nonalcoholic liver disease Snoring Other dyspnea and respiratory abnormality Hypertension, unspecified type documented in this encounter Care Teams .Net Developer Relationship Specialty Start Date End Date Jonelle Elam MD [address] [place] [address] ROGELIO Reinoso [phone] PCP - General Family Medicine 10/24/18 Manju Rainey DO [address] [place] [address] Bariatrics 08/11/20 documented as of this encounter
--- OUTSIDE RECORDS SUMMARY | 2024-04-14 17:45 | XMS_ITS | Encounter Summary ---
Author Organization [facility] Address [address] [place] [address] Care Team Providers Care Organ Teacher Name Role Phone Jonelle Elam MD Primary Care Provider [phone] Encounter Details Date Type Department Care Team (Late st Contact Info) Description 03/09/2020 Orders Only [facility] Weight Management Services [address] [place] [phone] Manju Rainey, [address] [place] [address] Social History Tobacco Use Types Packs/Day Years [...] of this encounter Progress Notes * Linda Elizabeth LPN - 03/09/2020 10:[address] [facility] called to have the lab orders faxed over. See media 03/09/2020. RVE OPERATOR documented in this encounter Plan of Treatment Not on file documented as of this encounter Visit Diagnoses Not on filedocumented in this encounter Care Teams Organ Teacher Relationship Specialty Start Date End Date Jonelle Elam MD [address] [place] [address] [place] [phone] PCP - General Family Medicine 10/24/18 documented as of this encounter
--- OUTSIDE RECORDS SUMMARY | 2024-04-14 17:45 | XMS_ITS | Encounter Summary ---
Author Organization [facility] Address [address] [place] [address] Care Team Providers Care Roof Bolter Name Role Phone Jonelle Elam MD Primary Care Provider [phone] Reason for Visit * Reason Comments Obesity Follow Up Encounter Details Date Type Department Care Team (Late st Contact Info) Description 06/17/2020 2:00 PM CDT Video Visit [facility] Weight Management Services [address] [place] [phone] [place] [id number] [address] Manju Rainey, DO [address] [place], [place] [address] Obesity, morbid, BMI 50 or higher (HCC) ; Vitamin D deficiency; Essential hypertension; Gastroesophageal reflux disease, unspecified whether esophagitis present; NAFLD (nonalcoholic fatty liver disease); Anxiety; Irritable bowel syndrome with both constipation and diarrhea; Gastroesophageal reflux disease without esophagitis Social History Tobacco Use Types Packs/Day Years [...] Sign Reading Time Taken Comments Blood Pressure 131/89 06/17/2020 1:00 PM CDT Pulse - - Temperature - - Respiratory Rate - - Oxygen Saturation - - Inhaled Oxygen Concentration - - Weight 136.6 kg (301 lb 3.2 oz) 06/17/2020 1:00 PM CDT per pt Height 158.4 cm (5' 2.36 ) 06/17/2020 1:00 PM CD T Body Mass Index 54.45 06/17/2020 1:00 PM CDT documented in this encounter Progress Notes * Manju Rainey DO - 06/17/2020 2:57 PM CDT Images from the original note were not included. [facility] [place] [address] . . Telemedicine Note Today's visit was conducted virtually due to COVID-19 countermeasures. The patient has given verbalconsent to have today's visit conducted by this same means with treatment provided remotely. The patient verbally consents to the billing and collection practices of [facility]. Patient location: In her car, parked This encounter was performed using: audio and video Time spent direct and indirect care: : Thirty-one minutes Date of encounter: 06/17/2020 Provider: Manju Rainey DO Patient: Deya Campbell CSN: [id number] Specialty: Bariatrics. Date of : 1995 Visit type: Medical weight loss follow up: Telemedicine (398) Audio and visual __x__ Audio only ___ Verbal consent from patient to treat and bill insurance obtained. Yes This 24 year old female patient was referred by self for Medical Weight loss follow up. Bariatric HPI she was seen in clinic last on 05/20/2020. Patient has lost 2 lb from that visit. She has lost a total of 19.5 lb from her initial visit. Patient had a mild setback with her weight management programwhen she started working from home last month. She found that she tended to snack more working fromhome. She has found ways to remedy that situation. She is still working with her primary care on blood pressure control. Her systolic blood pressure is generally running 130s and diastolics running 80s to 90s. No current abdominal pain. History of fatty liver. Anxiety: Still working with PCP on management. Did not tolerate BuSpar even at the lower dosages. Vitamin-D deficiency currently being treated. Reflux symptoms generally stable off meds. IBS symptoms currently stable. Patient has no acutecomplaints but does report an issue with daily headaches. She plans to discuss this with her PCP ather upcoming appointment. We discussed given some of her other symptoms such as snoring, fatigue and headaches that a sleep study might be in order. Patient lives a good distance from here and will discuss getting a sleep study with her PCP where she lives. Activity level: ADLs recently. She has an exercise bike and a treadmill but these are in the basement and they have recently had a problem with water in the basement. She and her are considering joining a gym and have the support of the grandparents who will watch their children. Sleep: 7-8 hours. Nutrition: Breakfast: Protein shake +yogurt. Lunch: Skips. Dinner: Meat and vegetables and cottage cheese. Fluids: Water and coffee. Snacks: Fruit snacks, yogurt, nuts. Discussed having a small protein at lunch to prevent over eating from being over hungry at supper. Co morbid conditions: Hypertension, fatty liver, anxiety, vitamin-D deficiency, hyperlipidemia, reflux, IBS Care team: PCP, GI, weight management GOALS from last visit: 1 less than 1900 calories per day with 1 or 2 protein meal replacements daily. Patient states that tracking makes her more hungry. She prefers small plate model. 2. 90+ g protein daily. Working toward goal. 3. 64+ oz fluid daily.: Meeting goal. Patient is taking 30 grams of proteins supplements daily. Patient is taking 64+ oz of fluid per day. Doing ADLs currently but plans to join a gym for workouts along with her . The patient has lost 2 lb from last visit. She has lost a total of 19.5 lb from her initial visit and is so very close to weighing under 300 lb. Patient is motivated to meet this 1st goal. Weight History: Initial Weight: 320.7 lb. BMI [...] Total Wt Loss in lb: 19.5 lb Obesity History Years at current weight? [...] you have an unusual work schedule? na [place] Sleepiness Scale total points: 9 Past Medical [...] file Gets together: Not on file Attends lutheran service: Not on file Active member of [...] Outpatient Medications Marked as Taking for the 06/17/20 encounter (Video Visit) with Kristal Rainey, DO Medication Sig ??? Ferrous Sulfate (SLOW FE) 142 (45 [...] ??? Labetalol Shortness of Breath ROS: Systemic: Some daytime fatigue Psychological ROS: Anxiety working on management with her PCP Ophthalmic ROS: negative ENT ROS: negative Hematological ROS: Vitamin-D deficiency being treated. Has refills at pharmacy. Endocrine ROS: Obesity class 3 improving Respiratory ROS; snoring at night Cardiovascular ROS: Hypertension getting better control GI ROS: Reflux and IBS stable. History of fatty liver. No abdominal pain ROS: negative Musculoskeletal ROS: negative Neurological ROS: Daily headaches generally relieved with ibuprofen. Dermatological ROS: negative. Objective: Vital Signs: BP 131/89 Ht 5' 2.36 (1.584 m) Wt 301 lb 3.2 oz (136.6 kg) BMI 54.45 kg/m2 Weight: (!) 301 lb 3.2 oz (136.6 kg)(per pt) Height: 5' 2.36 (158.4 cm) Body mass index is 54.45 kg/m??. Constitutional: Alert, awake and oriented without any apparent discomfort. Eyes: Anicteric. Extraocular muscles were intact. Neck Exam: unable Respiratory : unable Cardiovascular: unable Abdomen: unable Skin: Normal color Extremities: unable Neurological: A& O X 3. . Psychiatric: The patient's mood and affect appeared to be appropriate. Patient smiles easily. Patient is neatly dressed. Answers questions appropriately. Appears motivated to continue [...] today. Goals: 1. Less than 1900 calories with 1 or 2 protein meal replacements daily. Prefers small plate model for portion control. Reduce portion by 1/3 to 1/2. 2. 90+ g protein daily. 3. 64+ oz fluid daily. 4. Work toward goal of 150 min of aerobic activity and 3 days of resistance work weekly. 5. 7.5-9 hours sleep daily. 6. Mindful eating with snacking only if truly hungry. Choose from low-calorie lean protein and produce snacks less than or equal to 100 calories. 2. Vitamin D deficiency E55.9 Continue vitamin-D replacement therapy and recheck vitamin-D on completion. 3. Essential hypertension I10 Continue care with PCP. Healthy lifestyle modification with regular exercise, proper nutrition and weight reduction may improve blood pressure control. 4. Gastroesophageal reflux disease, unspecified whether esophagitis present K21.9 Continue care with PCP. Weight reduction may improve reflux symptoms. 5. NAFLD (nonalcoholic fatty liver disease) K76.0 Continue care with PCP and GI. Weight reduction will improve fatty liver. 6. Anxiety F41.9 Continue care with PCP. Optimal management of anxiety may enhance compliance with weight management program. 7. Irritable bowel syndrome with both constipation and diarrhea K58.2 Continue care with PCP and GI. Symptoms currently stable. Consults and Test ordered or needs follow up: Continue care with PCP and specialist as directed. Follow-up with me in 6 weeks. Call or return sooner if any questions concerns or problems. Follow up: Will see me in 6 weeks She verbalized understanding and is agreeable to this plan after shared decision making with patient. This encounter with the patient lasted 31 min, including chart prep, patient visit including counseling with the patient regarding increased physical activity, reduced caloric intake, healthy diet and behavioral modifications and documentation of visit. Manju Rainey DO CC: Jonelle Elam MD documented in this encounter Plan of Treatment Not on file documented as of this encounter Visit Diagnoses Diagnosis Obesity, morbid, BMI 50 or higher (HCC)- Primary Vitamin D deficiency Essential hypertension Gastroesophageal reflux disease, unspecified whether esophagitis present NAFLD (nonalcoholic fatty liver disease) Other chronic nonalcoholic liver disease Anxiety Anxiety state, unspecified Irritable bowel syndrome with both constipation and diarrhea Gastroesophageal reflux disease without esophagitis Esophageal reflux documented in this encounter Care Teams Roof Bolter Relationship Specialty Start Date End Date Jonelle Elam MD [address] [place] [phone] PCP - General Family Medicine 10/24/18 documented as of this encounter
--- OUTSIDE RECORDS SUMMARY | 2024-04-14 17:45 | XMS_ITS | Encounter Summary ---
Author Organization [facility] Address [address] [place] [address] Care Team Providers Care Electrical Maintenance Supervisor Name Role Phone Jonelle Elam MD Primary Care Provider Manju Rainey DO Unavailable [phone] Encounter Details Date Type Department Care Team (Late st Contact Info) Description 11/26/2020 4:00 PM CDT Video Visit [facility] Weight Management Services [address] [place] [phone] Rain Claros MD [address] [place] [address] Morbid obesity (HCC) Social History Tobacco Use [...] - Inhaled Oxygen Concentration - - Weight 142 kg (313 lb) 11/26/2020 3:00 PM CDT Height 160 cm (5' 3 ) 11/26/2020 3:00 PM CDT Body Mass Index 55.45 11/26/2020 3:00 PM CDT documented in this encounter Progress Notes * Suad Stiles, SOURAV/CHIN - 11/26/2020 4:00 PM CDT MEDICAL NUTRITION THERAPY Weight Management Services Bariatric Surgery Initial Nutrition EvaluationSession Number: Session I Patient Verification & Telemedicine Based Consent I [...] to the billing and collection practices of [facility]. Patient location: Home This encounter was performed using: audio and video Total time spent on visit on date of encounter is: 37 minutes Session Date: 11/26/20 Patient: Deya Campbell Date of : 1995 (25 year old) PCP Physician: Jonelle Elam MD Referring Physician: Maryellen NUTRITION ASSESSMENT Primary Diagnoses/Co-morbidities: Morbid Obesity Secondary Diagnoses/Co-morbidities: Hypertension (NAFL, postpart dep, anx, diverticulitis, SA, migraines) Have you seen a dietitian?: Yes Pertinent Labs: no new to review Pertinent Medications: reviewed- protonix, lexapro, losartan, topamax Current V/M Supplements: vit D2 weekly, D3 daily, iron daily Eating History Are you following a special diet at home?: Weight Reduction Are you having trouble following your diet?: Yes Weight loss diets followed in the past: (herbal/wt loss supplements) Are you having any trouble eating?: No Are you avoiding salty food, and not adding salt to your food?: No Are you limiting your liquids?: No How much liquids per day do you drink?: 64 oz Usual Number of Times You Eat Out Per Week : 1-3 per week Who prepares the meals?: Self Exercise Type of exercise?: None Weight History Height: 5' 3 (160 cm) Initial Program Weight: 320 lb 11.2 oz. BMI 57.98 Current Weight: (!) 313 lb (142 kg) BMI (Calculated): 55.46 Has your weight changed since last visit?: No Total Program Weight Loss: none Pt seen for initial nutrition consult. Pt reports long history of unsuccessful weight loss/maintenance. Pt planning Sleeve Gastrectomy. Pt reports health as reason for surgery. NUTRITION DIAGNOSIS Diagnosis: Overweight/obesity Related to: excessive calorie intake As evidenced by: BMI 55.45. NUTRITION INTERVENTION Interventions: Motivational interviewing;Goal setting;Self-monitoring;Problem solving;Recommended modifications;Collaboration with other providers Patient was instructed on healthy balance diet for weight loss using protein shakes. The current Bariatric Nutrition Guide was provided and the saldana diet principles were introduced. Explained phases 1-4 of bariatric diet. Educated pt regarding behavior changes for bariatric diet such as no straws and smaller plate. Explained importance of continued bariatric vitamin/mineral and protein supplementation. Pt v/u. Pt is ready to begin bariatric nutrition recommendations for wt loss. Pt was seen in group class via Zoom. Recommended pt begin replacing 1 meal daily with a protein shake and reviewed appropriate types, nutrition label, mixing technique, cost, where to purchase, etc. Reviewed plate model and recommended pt begin reducing portions by 1/3 to gradually be within plate model. Recommended pt consume protein first, then non-starchy vegetables and limit CHOs. Recommended no fried foods and to avoid high sugar foods. Reviewed mindful eating techniques and recommended pt take 15-20 minutes to consumemeals/shakes to promote satiety and wt loss. Recommended 3 meals/day and to limit snacking unless truly hungry. Recommended limiting eating out to 1-2x/week. Recommended no soda/SSB and reviewed sugar-free, low kcal alternatives. Pt v/u. External Barriers to Change: grazing NUTRITION MONITORING/EVALUATION Nutrient Needs: Goals: Nutrition Goal #1: 1 protein shake daily Nutrition Goal #2: reduce portions by 1/3 NutritionGoal #3: <15 g sugar daily Monitor/Evaluation: Monitoring and evaluation: Fluid/beverage intake;Food intake;Protein intake;Carbohydrate intake;Mineral/element intake;Food and nutrition knowledge/skills;Beliefs and attitudes;Adherence;Physical activity;Weight change;Body Mass index RD contact information provided. Pt encouraged to call RD with questions and/or concerns. Evaluation of Overall Compliance Potential: Comprehension: Sometimes Demonstrated Receptivity: Sometimes Demonstrated Adherence: Sometimes Demonstrated Session Information Session Date: 11/26/20 Session beginning time: 1604 Session ending time: 1641 Session total minutes: 37 Minutes Teaching Method: Explanation;Demonstration;Handout;Class/Group;Teach Back Materials provided: (KING, SG) Next visit: (1 month f/u) Total MNT minutes this calendar year: Nutritional Review ?? Cleared, additional RD visits required pre-op ___ ?? Cleared, no additional RD visits required pre-op ___ ?? Not cleared, additional RD visit(s) required pre-op _X__ ?? Continue with post op RD visits per protocol ___ Yasmin Sanches RD/[facility] documented in this encounter Plan of Treatment [...] obesity documented in this encounter Care Teams Electrical Maintenance Supervisor Relationship Specialty Start Date End Date Jonelle Elam MD [address] [place] [address] [place] [address] PCP - General Family Medicine 10/24/18 Manju Rainey DO [address] [place] [address] Bariatrics 08/11/20 documented as of this encounter
--- OUTSIDE RECORDS SUMMARY | 2024-04-14 17:45 | XMS_ITS | Encounter Summary ---
Author Organization [facility] Address [address] [place] [address] Care Team Providers Care Manager Instrumentation Name Role Phone Jonelle Elam MD Primary Care Provider Manju Rainey DO Unavailable Reason for Visit * Reason Comments Follow-up dietary changes- abd ominal pain, fatigued, headaches (4-5 aspirin daily),seeing deborah FUENTES Encounter Details Date Type Department Care Team (Late st Contact Info) Description 10/27/2020 11:30 AM CDT Office Visit [facility] ([place], [place]), [place] [phone] Tejas Jamil MD [address] [place] [address] [place] [address] Maribel Kitchen MD [address] [place] [address] NAFLD (nonalcoholic fatty liver disease) (Primary Dx); Liver lesion; Focal nodular hyperplasia of liver; Morbid obesity (HCC); Elevated liver enzymes; Morbid (severe) obesity due to excess calories [...] Sign Reading Time Taken Comments Blood Pressure 148/84 10/27/2020 11:17 AM CDT Pulse 79 10/27/2020 11:17 AM CDT Temperature 36.4 ??C (97.6 ??F) 10/27/2020 1 1:17 AM CDT Respiratory Rate 20 10/27/2020 11:1 7 AM CDT Oxygen Saturation 100% 10/27/2020 11: 17 AM CDT Inhaled Oxygen Concentration - - Weight 144.9 kg (319 lb 6.4 oz) 021 11:17 AM CDT Height 157.5 cm (5' 2 ) 10/27/2020 11:1 7 AM CDT Body Mass Index 58.42 10/27/2020 11:17 AM CDT documented in this encounter Progress Notes * Maribel Kitchen MD - 10/27/2020 11:47 AM CDT [facility] Maribel Kitchen MD Referring Provider: Provider Unknown PCP: Jonelle Elam MD Interval history and subjective concerns: I had the pleasure of meeting Deya Campbell at the [facility] on 10/27/2020. This is a 24 year old female with history of NAFLD. -She was diagnosed with NAFLD with fibroscan In 2019. -OSH imaging reviewed 01/2019, thought to indeterminate. 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 Interval events: No complaints today. She reports that she has been working from home. Because of this, she has beensnacking more. She reports that she has seen a bariatric surgery clinic, but has not proceeded withsurgery because she was unable to get time off work. She is also seeing a nonsurgical bariatric weight land management forester and was started on Wellbutrin. She reports that she is going to the gym for the past month. She also has a fit bit and typically walks 5000 steps during the week and up to 10,000 steps during the weekend. Her weight has increased 40 pounds since her initial visit in January2019. She denies any current alcohol use. She denies any current tobacco use. Alcohol: Denies any alcohol use. Tobacco: Denies any tobacco use. Review of Systems: Constitutional: negative for fevers, chill Eyes: negative for visual disturbance ENT: negative for hearing changes Respiratory: negative for shortness of breath Cardiovascular: negative for lower extremity edema, negative for chest pain Gastrointestinal: as per HPI Genitourinary:negative for dysuria Hematologic/lymphatic: negative for easy bruising, bleeding Musculoskeletal: negative for myalgias, arthralgias Neurological: negative for headaches Exam: Wt Readings from Last 3 Encounters: 10/27/20 (!) 144.9 kg (319 lb 6.4 oz) 08/12/20 (!) 139.3 kg (307 lb 3.2 oz) 06/17/20 (!) 136.6 kg (301 lb 3.2 oz) BP 148/84 (BP SITE: LEFT ARM, BP POSITION: SITTING, BP CUFF SIZE: 12) Pulse 79 Temp 97.6 ??F (36.4 ??C) (Temporal) Resp 20 Ht 1.575 m (5' 2 ) Wt 144.9 kg (319 lb 6.4 oz) SpO2 100% BMI 58.42 kg/m2 General appearance: normal, alert, no distress, appears stated age Eyes: conjunctivae/corneas clear. EOMIB Neck: supple, symmetrical, trachea midline, no adenopathy Lungs: clear to auscultation bilaterally Heart: RRR, normal S1 and S2, no murmur Abdomen: soft, no masses palpable, non-tender, non-distended, bowel sounds normal Extremities: no ulcers, well perfused, no edema Skin: No rashes or lesions, no jaundice, no spider hemangiomas, no palmar erythema Neuro: Appropriate, oriented x 3, no asterixis Relevant Laboratories: Recent Labs Component Name 04/17/20 1507 04/12/19 1514 01/02/19 1236 PROT - 7.8 8.1 ALB - 3.9 4.5 TBILI - 0.7 0.8 ALKPHOS - 55 71 ALT - 12 24 AST - 16 20 AGRATIO - 1.0* 1.3 EGFR >60 - - No results for input(s): WBC, HGB, HEMOGLOBIN, HEMATOCRIT, HCT, PLATELET, PLTCOUNT in the last 63134 hours. No results for input(s): INR in the last 15439 hours. Computed MELD-Na score unavailable. Necessary lab [...] Progression of diffuse hepatic steatosis, now severe. Liver biopsy/Fibroscan: Fibroscan 11/05/18: Liver stiffness 7.6 kPa, CAP 396 Assessment: 1. NAFLD, based on 11/2018 fibroscan. Her fibroscan today was technically difficult. 2. Liver lesions seen on 2019 imaging, repeat MRI at [facility] on 02/2019 shows lesions are c/w with FNH 3. Morbid obesity Recommendations: 1. Vaccination for hepatitis B recommended. She will be discussing this with her PCP at her next visit. 2. Repeat CMP, CBC today. 3. Patient counseled at length regarding dietary changes and exercise targeting a sustained 7% to 10% weight loss. ??Treatment should be focused on optimizing control of the metabolic syndrome, whichshould reduce risk of cardiovascular disease and severity of liver disease. ??The use of statin in NAFLD is safe, with no increased risk of drug-induced hepatotoxicity. 4. Prior findings of focal nodular hyperplasia were seen on her recent MRI. Given 2 new arterially enhancing lesions, which are likely FNH, I have ordered a repeat MRI in April 2021. If stable, no further imaging will be warranted moving forward. I have asked her to return for a follow up visit in 6 months. Maribel Kitchen MD Forensic Investigator Division of Gastroenterology and Hepatology No orders of the defined types were placed in this encounter. Current Outpatient Medications Medication Sig ??? ASPIRIN PO Take 200 mg by mouth as needed Patient taking 200-800 mg daily ??? buPROPion XL 24hr (WELLBUTRIN-XL) 150 MG tablet TAKE 1 TABLET BY MOUTH EVERY MORNING ??? Ferrous Sulfate (SLOW FE) 142 (45 Fe) MG Patient will start tomorrow. Reasons: Anemia From Inadequate Iron in the Body ??? IBUPROFEN PO ??? losartan (COZAAR) 100 MG tablet Take 100 mg by mouth once daily ??? Paragard Intrauterine Copper IUD ParaGard T 380A 380 square mm intrauterine device Take by intrauterine route. ??? vitamin D, ergocalciferol, (DRISDOL) 1.25 MG (81819 UT) capsule Take 1 capsule by mouth every 7days Reasons: Vitamin D Deficiency No current facility-administered medications for this visit. documented in this encounter Plan of Treatment [...] of liver Other specified disorders of liver Morbid obesity (HCC) Morbid obesity Elevated liver enzymes Nonspecific elevation of levels of transaminase or lactic acid dehydrogenase (LDH) Morbid (severe) obesity due to excess calories (HCC) documented in this encounter Care Teams Manager Instrumentation Relationship Specialty Start Date End Date Jonelle Elam MD [address] [place] [address] [place] [phone] PCP - General Family Medicine 10/24/18 Manju Rainey DO [address] [place] [address] Bariatrics 08/11/20 documented as of this encounter
--- OUTSIDE RECORDS SUMMARY | 2024-04-14 17:45 | XMS_ITS | Encounter Summary ---
Author Organization [facility] Address [address] [place] [address] Care Team Providers Care Die Caster Name Role Phone Jonelle Elam MD Primary Care Provider [phone] Reason for Visit * Reason Comments Bariatric Surgery Initial Assessment * Evaluate & Treat (Routine) - Closed Specialty Diagnoses / Procedures Referred By Ritika bonner Referred To Contact Weight Management Diagnoses Obesity, unspecified Selfreferral, [facility] [address] [place] [address] Referral ID Status Reason Start Date Expiration Date Visits Re quested Visits Authorized [id number] Closed 12/06/2019 12/05/2020 1 1 Encounter Details Date Type Department Care Team (Latest Contact Info) Description 01/16/2020 2:00 PM CDT Office Visit [facility] [address] [place] [address] Rain Claros MD [address] [place] [address] Gastroesophageal reflux disease without esophagitis (Primary Dx); Diverticulitis; Morbid obesity (HCC); Preoperative clearance; NAFLD [...] Sign Reading Time Taken Comments Blood Pressure 122/72 01/16/2020 1:00 PM CDT Pulse 81 01/16/2020 1:00 PM CDT Temperature 36.4 ??C (97.5 ??F) 01/16/2020 1:00 PM CD T Respiratory Rate 16 01/16/2020 1:00 PM CDT Oxygen Saturation 99% 01/16/2020 1:00 PM CDT Inhaled Oxygen Concentration - - Weight 145.5 kg (320 lb 11.2 oz) 01/16/2020 1:00 PM CDT Height 158.4 cm (5' 2.36 ) 01/16/2020 1:00 PM CD T Body Mass Index 57.98 01/16/2020 1:00 PM CDT documented in this encounter Patient Instructions * Patient Instructions* Kandy Yancey - 01/16/2020 3:03 PM CDT PROCEDURE INSTRUCTIONS PROCEDURE: EGD DATE: Feb You will need to get a COVID-19 test done at an [facility] or [facility] on Monday, Feb 01 before 12 pm to ensure we receive your results in time. Your order will be sent to them. Afteryou complete this test, please make sure to self-quarantine until the day of your procedure. You and members of your household may work during this time but we ask that you not participate in social gatherings. Please ensure that you are wearing a mask, handwashing, and taking as many precautions as possible. You will be able to have a support person with you on the day of the procedure. Please make sure you bring a mask with you when you arrive at the hospital. [facility] ([place])- Monday-Monday 6a-5p [facility] - [place] - Testing via drive up tent - please call from your call when you arrive. [facility] [phone] Monday-Monday-6p Monday- [facility] - [place] - Testing via drive up tent - please call from your call when youarrive. [address] [address] Monday-Monday-6p Monday- GENERAL GUIDELINES ??? All surgery patients need to arrange for a responsible adult, 18 years or older, to drive them home after discharge. ??? If you have young children, please make arrangements for their care while you are at the hospital. ??? Same day surgery department will call you with your arrival time to the hospital one business day before your scheduled surgery. MEDICATIONS * Please call our office if you are taking any weight loss medications/supplements as these may need to be stopped prior to your procedure. * ??? We request these medications be stopped no later than 10 days before surgery. o Mobic (meloxicam), Relafen (nabumetome), Feldene (piroxicam) ??? We request these medications be stopped no later than 7 days before surgery. o Effient (Prasugrel), Aggrenox, Spark ??? We request these medications be stopped no later than 5 days before surgery. o Aspirin, Plavix (Clopidogrel), Coumadin (Warfarin), Brillinta (ticagrelor), Ticlid (Ticlopidine) ??? We request this medication be stopped no later than 3 days before surgery. o Pletal (Cilostazol), Naprosyn (naproxen), Dolobid (diflunisal), Clinoril (Sulindac), Vyvanse ??? We request these medications be stopped no later than 2 days before surgery, Examples: Xarelto (rivaroxaban), Eliquis (Apixaban), Pradaxa (Dabigatran), Savaysa (Endoxaban), Celebrex, Lovenox, Adderall, Concerta, Daytrana, Focalin, Metadate, Abilify, Methylin, Ritalin, Perphenazine, Quillivant, Strattera, Vibryd, Viagra/Cialas/Levitra, CBD oil. ??? We request these medications be stopped no later than 1 day before surgery. o Voltaren (diclofenac), Motrin (ibuprofen), Indocin (indomethacin), Orudis (Ketoprofen), Lunesta, Lamictal (hold the day of surgery), Gunfacine (hold the day of surgery). If you have kidney disease the timing of stopping the medication may change. DAY BEFORE SURGERY ??? Do not drink alcoholic beverages or smoke for 24 hours prior to your surgery. ??? To help prevent infection, shower the night before and the morning of surgery. If your surgeon has provided you with specific bathing instructions, please follow those guidelines. ??? Perform thorough oral hygiene by brushing teeth before coming to the hospital. ??? Remove all jewelry, make up, finger/toe bahraini and body piercings prior to your arrival at the hospital. ??? Same day surgery department will call you with your arrival time to the hospital one business day before your scheduled surgery. DAY OF SURGERY ??? Nothing to eat or drink after midnight the day of your surgery, unless otherwise instructed by your physician. ??? Please bring insurance cards and photo ID with you to the hospital. ??? Please leave all valuables at home. (This includes money, jewelry, watches, credit cards, etc.) documented in this encounter Progress Notes * Rain Claros MD - 01/16/2020 3:47 PM CDT [facility] [place] [address] . . Date of encounter: No admission date for patient encounter. Provider: Rain Claros MD Patient: Deya Campbell CSN: [id number] Specialty: Bariatric Surgery Date of : 1995 Visit type: Bariatric Initial visit Deya Campbell 24 year old female patient was referred by Jonelle Elam MD for evaluation for Morbid Obesity and assessment for Bariatric Surgery. History of Present Illness: The patient states the onset of the weight gain began at childhood. The patient is gaining weight since then. The weight gain and associated problems are getting worse . Associated symptoms include knee and back pain. The patient has attempted physician directed and non physician directed weight loss strategies as described in the Diet history below and has failed to achieve durable weight loss. Due to weight gain patient started developing Benign Essential Hypertension, Gastroesophageal reflux disease, Hyperscholesterolemia, Depression and Morbid Obesity. On the basis of her refractory morbid obesity and failure to achieve shelter weight loss, she wasseen at [facility] at [place], [place]. The procedure requested is Sleeve Gastrectomy. Weight History: [place] body weight: 50.9 kg (112 lb 4.6 oz) Adjusted ideal body weight: 88.7 kg (195 lb 10.4 oz) Diet History: Past Medical History: Past Medical History: Diagnosis [...] file Gets together: Not on file Attends islam service: Not on file Active member of [...] History Narrative ??? Not on file Medications: No outpatient medications have been marked as taking for the 01/16/20 encounter (Office Visit) Rain Fox MD. (Not in a hospital admission) Allergy: Allergies [...] pain Neurological ROS: negative Dermatological ROS: negative Vital Signs: BP 122/72 Pulse 81 Temp 97.5 ??F (36.4 ??C) Resp 16 Ht 5' 2.36 (1.584 m) Wt 320 lb 11.2 oz (145.5 kg) SpO2 99% BMI 57.98 kg/m2 Weight: (!) 320 lb 11.2 oz (145.5 kg) Height: 5' 2.36 (158.4 cm) Body mass index is 57.98 kg/m??. Physical Exam: Constitutional: Alert, awake and oriented without any apparent discomfort. Eyes: Anicteric. No subconjunctival hemorrhage. Neck Exam: Supple. Trachea midline. No thyromegaly. No cervical or supraclavicular lymphadenopathy. Respiratory: Lungs were clear to auscultation bilaterally. No rales, rhonchi. Cardiovascular: Regular rate and rhythm. No rub, murmur or gallop Abdomen: Abdomen was obese, soft, non tender, non distended. No palpable visceromegaly. No palpableventral hernias. Skin: [place] and moist. No ulcers, rashes, or lesions. Extremities: Well perfused. No gross joint deformity noted Neurological: Cranial nerves 2-12 were grossly intact. Psychiatric: The patient's mood and affect appeared to be appropriate Labs No results for input(s): WBC, RBC, HGB, HCT, PLTCOUNT in the last 69640 hours. No results for input(s): SODIUM, POTASSIUM, CO2, BUN, CREATININE in the last 75394 hours. Invalid input(s): CLORIDE No results for input(s): GLUCOSE in the last 26101 hours. Recent Labs Component Name 04/12/19 1514 01/02/19 1236 AST 16 20 ALT 12 24 No results for input(s): LDL, HDL, TRIG, TSH in the last 75744 hours. No results for input(s): HGBA1C in the last 07112 hours. Some lab results will be in paper format so may be scanned in the EMR. Imaging studies No results found. Some Imaging studies results will be in paper format so may be scanned in the EMR. Assessment and Plan Morbid Obesity Patient was recommended to optimize pre op weight loss with liquid protein diet replacement therapy. All different dietary supplements were discussed. Patient was also recommended to optimize exercise and to be engaged in an exercise program. I will refer her to a dietitian for diet counseling and NExT program / an exercise log. Patient has a 3-6 months primary care physician supervised diet requirement. she will meet with me / PA and dietitian every month till the end of the 3-6 months. GERD Complains of reflux symptoms occasionally. We'll plan for an EGD to rule out H. pylori and any anatomic abnormality. Hypertension Continue with the anti-hypertensive medication. The patient has had occasional chest pain. Will refer to cardiology for perioperative optimization and clearance. Patient was recommended to avoid diuretics during perioperative period to avoid perioperative dehydration and renal failure. Beta blockers and direct vasodilators are preferable agents for the perioperative period. Hyperlipidemia Continue current medication regimen. Primary to optimize. Will repeat lipid panel. Anxiety Patient anxious about surgery and the course. Explained in detail the surgery. If on SSRI or anxiety medication, I will continue the same now and perioperatively. I will obtain a psychiatric evaluation for pre-operative clearance. Consults and Test ordered: Cardiac consult for risk assessment and optimization before surgery Dietitian consult for diet counseling Psychology/psychiatry consult for pre-operative clearance. Blood work to evaluate for any vitamin and mineral deficiency. EKG and Chest Xray. EGD 3-6 month physician supervised diet Follow up: Will see me/PA/[place] in 1 month she meets the criteria as set by the [employer] [place] of Health that recommends bariatric surgeryon people with a body mass index greater than 40 kg/ms or with a body mass index greater than 35 kg/msq with co-morbid conditions. I have discussed with her at great length the definition of morbid obesity and the indications for surgery. I have explained to her that the surgery is not a cure. Thisis not a cosmetic surgery and she will still require active participation with exercise, diet, and having very close follow-up with a tuber machine operator helper and me. In addition she must attend three support groupmeetings prior to surgery, and continue to attend post-operatively, in order to increase her long-term success. I have discussed with her at great length the different types of bariatric procedures that are being performed. I have shown her a diagram explaining how the surgery works and how weight loss is accomplished. I have discussed with her at great length that the gastric bypass surgery is successful in helping the patient lose about 60-80 % of her excess body weight and that this mainly occurs within the first two years post-operatively. I have pointed out the comparison to typical lap band weight loss of 30-65 % excess body weight loss. After that, her weight may plateau and there may be no further weight loss. Conversely, I advised that with the gastric sleeve resection, she can reasonably expect to lose 40-75 % of her excess body weight. Again, this will mainly occur in the first two years post-op. After that time,her weight may plateau and there may be no further weight loss. Additionally, in the case of the gastric sleeve resection, I have advised the patient that this surgery may be performed as a s tand-alone procedure to achieve the desired outcome, or as a staging operation in preparation for further weight loss surgery. she has acknowledged her understanding that more surgery may be necessary in order to achieve an acceptable weight loss outcome. I have discussed at great length with the complication of all surgeries such as bleeding, hematoma,seroma, poor wound healing, hernia formation, further surgeries, further surgeries if too much weight loss occurs, injury to liver, spleen, stomach pancreatic injury, kidney injury, diaphragmatic andheart injury, bowel injury, vessel injury and nerve injury. In discussing complications of surgeries, I placed special emphasis on esophagus gastric/bowel perforation leading to possible sepsis and , and deep vein thrombosis leading to possible pulmonary embolism and . With the gastric bypass, there are the additional potential risks such as anastomotic leak, gastric pouch necrosis, total gastrectomy, intestinal reconstruction, internal hernias, and gastrostomy tube. All surgeries may be performed laparoscopically, however the possibility exists that any procedure may have to be converted to the open approach. I have also discussed with her the possibility of long-term complications with metabolic, nutritional, and mineral derangements that are present with all three surgeries. I have made her aware that all these surgeries require a lifetime commitment surgery and she needs to be an active participant with the program. I have made her aware that after any of the surgeries she will have a very small pouch, which will limit the quantity of food that she will be able to eatand the foods she needs to avoid in order to prevent discomfort or failure to lose weight. I have informed her that she will have to take at a minimum multivitamins and possible other supplementation. This is the case with any of the surgeries we discussed. However, with the gastric banding surgery, because of the Restrictive component/ foreign hardware, after the surgery she will have to have very close follow-up and surveillance where I will see her every month for the first four months and then at least annually for life. With those office visits, at a minimum I may routinely check a CBC, CMP, Vitamin B6 and B12, a folate level and an iron profile. In addition to these vitamins checked for the gastric sleeve surgery, for gastric bypass surgery, I will also check Vitamin A, D, E, K, and Zinc levels, as needed. I madeher aware of the long-term complications that can occur if she fails to have follow-up and developsderangements with different types of vitamin and mineral deficiencies. All of these surgeries are bariatric surgeries; therefore the pre-surgery work up may be similar for any of the procedures. Each surgery requires a lot of teaching and education. I have discussed this with her at great length and have provided a great deal of information to the patient but she will have additional education provided by the computer programmer and tuber machine operator helper at [facility]. Because of the significant changes in her eating habits she will have to see a tuber machine operator helper prior to and following surgery. I have informed her that the diet after surgery is a gradual progression from clear liquids to solid foods over a period of time. Bariatric surgery can affect her psychologically and emotionally, therefore she will have to see a psychiatrist before the surgery and may require post- operative therapy as well. she will have to make sure that she is willing to make the commitment for life and be an active participant. Laboratory studies including CMP, CBC, TSH, Iron, Ferritin, Folate, Vitamin B1, Vitamin B12, Vitamin D and an urinalysis will be obtained prior to surgery. Based upon history and exam findings, a pulmonary function test, stress test and sleep study may be required. Given the patient's condition and for evaluation of the stomach, an upper endoscopy will be completed prior to the bariatric procedure. I have discussed and given a lot of education to the patient. I have informed her that the surgery is not a cure and that this is not a cosmetic surgery. Any of the surgeries discussed can significantly improve her health as well as improve or resolve her comorbid medical conditions. Rain Claros MD CC: Jonelle Elam MD documented in this encounter Plan of Treatment Not on file documented as of this encounter Visit Diagnoses Diagnosis Gastroesophageal reflux disease without esophagitis- Primary Esophageal reflux Diverticulitis Diverticulitis of colon (without mention of hemorrhage) Morbid obesity (HCC) Morbid obesity Preoperative clearance Preoperative examination, unspecified NAFLD (nonalcoholic fatty liver disease) Other chronic nonalcoholic liver disease documented in this encounter Care Teams Die Caster Relationship Specialty Start Date End Date Jonelle Elam MD [address] [place] [address] ROGELIO Reinoso [id number] PCP - General Family Medicine 10/24/18 documented as of this encounter
--- OUTSIDE RECORDS SUMMARY | 2024-04-14 17:45 | XMS_ITS | Encounter Summary ---
Author Organization [facility] Address [address] [place] [address] Care Team Providers Care Head Of Marketing Analytics Name Role Phone Jonelle Elam MD Primary Care Provider [phone] Reason for Referral * Radiology Services (Routine) - Closed Specialty Diagnoses / Procedures Referred By Contac t Referred To Contact MRI Diagnoses Liver lesion Focal nodular hyperplasia of liver NAFLD (nonalcoholic fatty liver disease) Morbid obesity (HCC) Procedures MRI ABDOMEN WWO CONTRAST MRI ABDOMEN WWO CONTRAST Maribel Kitchen MD [address] [place] [address] [facility] [address] [place] [phone] Referral ID Status Reason Start Date Expiration Date Visits Re quested Visits Authorized [id number] Closed 04/15/2021 07/13/2021 1 1 R DEFENSE ANALYST * Radiology Services (Routine) - Closed Specialty Diagnoses / Procedures Referred By Contac t Referred To Contact Diagnoses Liver lesion Focal nodular hyperplasia of liver NAFLD (nonalcoholic fatty liver disease) Morbid obesity (HCC) Procedures PROC FIBROSCAN Maribel Kitchen MD [address] [place] [address] Referral ID Status Reason Start Date Expiration Date Visits Re quested Visits Authorized [id number] Closed 04/28/2020 04/28/2021 1 1 R DEFENSE ANALYST Encounter Details Date Type Department Care Team (Late st Contact Info) Description 04/28/2020 4:00 PM CYBER DEFENSE ANALYST Video Visit [facility] - [address] [facility] [place] [address] Maribel Kitchen MD [address] [place] [address] Liver lesion ; Focal nodular hyperplasia of liver; NAFLD (nonalcoholic fatty liver disease); Morbid obesity (HCC); Fatty (change of) liver, not elsewhere classified; Morbid (severe) obesity due [...] COVID-19? No / Unsure 04/17/2020 2:31 PM CYBER DEFENSE ANALYST documented as of this encounter Progress Notes * Maribel Kitchen MD - 04/28/2020 4:39 PM CST [facility] Maribel Kitchen MD Referring Provider: Provider Unknown PCP: Jonelle Elam MD Patient Verification & Telemedicine Based Consent I [...] verification and consent paragraph with the patient/surrogate. Pursuant to the emergency declaration under the Rodriguez Act and the National Emergencies Act, 1135waiver authority and the Coronavirus Preparedness and Response Supplemental Appropriations Act, this Virtual Visit was conducted, with patient's consent, to reduce the patient's risk of exposure to COVID-19 and provide continuity of care for an established patient. Services were provided through a video synchronous discussion virtually to substitute for in-personclinic visit. Patient location: home On quarantine for COVID infection This encounter was performed using: audio and visual (EPIC) Interval history and subjective concerns: I had the pleasure of meeting Deya Campbell at the [facility] on 04/28/2020. This is a 24 year old female with history of NAFLD. -She was diagnosed with NAFLD with fibroscan In 2019. -OSH imaging reviewed 01/2019, thought to indeterminate. 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 Interval events: Delivered baby girl since last visit. Had significant weight gain during her . Is currently on quarantine for COVID,mild symptoms. Is seeing a bariatric clinic, seeing a nonsurgical bariatrician. Is on medication for htn. Has lost 25 lbs since Jan 31. Alcohol: Denies any alcohol use. Tobacco: Denies [...] Exam: Wt Readings from Last 3 Encounters: 04/15/20 (!) 140.3 kg (309 lb 3.2 oz) 03/11/20 (!) 139.8 kg (308 lb 3.2 oz) 02/12/20 (!) 142.9 kg (315 lb 1.6 oz) There were no vitals taken for this visit. . Relevant Laboratories: Recent Labs Component Name 04/17/20 1507 04/12/19 1514 01/02/19 1236 PROT - 7.8 8.1 ALB - 3.9 4.5 TBILI - 0.7 0.8 ALKPHOS - 55 71 ALT - 12 24 AST - 16 20 AGRATIO - 1.0* 1.3 EGFR >60 - - No results for input(s): WBC, HGB, HEMOGLOBIN, HEMATOCRIT, HCT, PLATELET, PLTCOUNT in the last 69022 hours. No results for input(s): INR in the last 73067 hours. Computed MELD-Na score unavailable. Necessary lab [...] seen on 2019 imaging, repeat MRI at [facility] on 02/2019 shows lesions are c/w with FNH 3. Morbid obesity Recommendations: 1. Vaccination for hepatitis B recommended. She will be discussing this with her PCP at her next visit. 2. Once patient is out of quarantine, plan to check hepatic function panel given progression of steatosis on imaging. Will fax orders to [facility] in [place]. 3. Patient counseled at length regarding dietary changes and exercise targeting a sustained 7% to 10% weight loss. ??Treatment should be focused on optimizing control of the metabolic syndrome, whichshould reduce risk of cardiovascular disease and severity of liver disease. ??The use of statin in NAFLD is safe, with no increased risk of drug-induced hepatotoxicity. 4. Repeat fibroscan in at next visit 5. Will review imaging in tumor conference and decide on timing of repeat imaging. I have asked her to return for a follow up visit in 6 months. Maribel Kitchen MD Special Needs Tutor Division of Gastroenterology and Hepatology No orders of the defined types were placed in this encounter. Current Outpatient Medications Medication Sig ??? busPIRone (BUSPAR) 10 MG tablet TK 1 T PO BID ??? Ferrous Sulfate (SLOW FE) 142 (45 Fe) MG Patient will start tomorrow. Reasons: Anemia From Inadequate Iron in the Body ??? losartan (COZAAR) 100 MG tablet Take 100 mg by mouth once daily ??? vitamin D, ergocalciferol, (DRISDOL) 1.25 MG (63906 UT) capsule Take 1 capsule by mouth every 7days Reasons: Vitamin D Deficiency (Patient not taking: Reported on 04/15/2020) No current facility-administered medications for this visit. R DEFENSE ANALYST documented in this encounter Plan of Treatment Scheduled Orders Name Type Priority Associated Diagnoses Orde r Schedule HEPATIC FUNCTION PANEL Lab Routine Liver lesion Focal nodular hyperplasia of liver NAFLD (nonalcoholic fatty liver disease) Morbid obesity (HCC) Ordered: 04/28/2020 documented as of this encounter Results * MRI ABDOMEN WWO CONTRAST (04/27/2021 11:43 AM CYBER DEFENSE ANALYST) Anatomical Region Laterality Modality Abdomen Magnetic Resonan ce 04/27/2021 1:19 PM CYBER DEFENSE ANALYST Impressions 04/27/2021 3:19 PM CYBER DEFENSE ANALYST Impression: 1.Three observations in the right hepatic [...] gallbladder. Report dictated by Karrie Hall MD (resident program specialist). I, Dr. KENNY COVARRUBIAS M.D. have personally reviewed and interpreted this examination/study. This report was electronically signed by KENNY COVARRUBIAS M.D. ??on 04/27/2021 3:19 PM . Narrative 04/27/2021 3:19 PM CYBER DEFENSE ANALYST Procedure Information: DATE: 04/27/2021 11:43 AM EXAMINATION: [...] gallbladder. Report dictated by Karrie Hall MD (resident program specialist). I, Dr. KENNY COVARRUBIAS M.D. have personally reviewed and interpreted this examination/study. This report was electronically signed by KENNY COVARRUBIAS M.D. on04/27/2021 3:19 PM . Maribel Kitchen MD MR ORDERABLES * PROC FIBROSCAN (10/27/2020 11:38 AM CDT) Narrative Gabriella Moon RN - 10/27/2020 11:38 AM CDT Gabriella Moon RN ? 10/27/2020 12:22 PM Technical difficulties:An Maribel Kitchen MD PROCEDURE/MINOR SURG ICAL ORDERABLES documented in this encounter Visit Diagnoses Diagnosis Liver lesion- Primary Other specified disorders of liver Focal nodular hyperplasia of liver Other specified disorders of liver NAFLD (nonalcoholic fatty liver disease) Other chronic nonalcoholic liver disease Morbid obesity (HCC) Morbid obesity Fatty (change of) liver, not elsewhere classified Morbid (severe) obesity due to excess calories (HCC) NAFLD (nonalcoholic fatty liver disease)- Primary Other chronic nonalcoholic liver disease Liver lesion Other specified disorders of liver Focal nodular hyperplasia of liver Other specified disorders of liver Morbid obesity (HCC) Morbid obesity Liver lesion Other specified disorders of liver Focal nodular hyperplasia of liver Other specified disorders of liver NAFLD (nonalcoholic fatty liver disease) Other chronic nonalcoholic liver disease Morbid obesity (HCC) Morbid obesity documented in this encounter Care Teams Head Of Marketing Analytics Relationship Specialty Start Date End Date Jonelle Elam MD [address] [place] [address] [place] [phone] PCP - General Family Medicine 10/24/18 documented as of this encounter
--- OUTSIDE RECORDS SUMMARY | 2024-04-14 17:45 | XMS_ITS | Encounter Summary ---
Author Organization [facility] Address [address] [place] [address] Care Team Providers Care Metalworker Name Role Phone Jonelle Elam MD Primary Care Provider [phone] Manju Rainey DO Unavailable Encounter Details Date Type Department Care Team (Latest Contact Info) Description 12/02/2020 Travel Social History Tobacco Use Types Packs/Day [...] on filedocumented in this encounter Care Teams Metalworker Relationship Specialty Start Date End Date Jonelle Elam MD [address] [place] [address] [place] [phone] PCP - General Family Medicine 10/24/18 Manju Rainey DO [address] [place] [address] Bariatrics 08/11/20 documented as of this encounter
--- OUTSIDE RECORDS SUMMARY | 2024-04-14 17:45 | XMS_ITS | Encounter Summary ---
Author Organization [facility] Address [address] [place] [address] Care Team Providers Care Sports Medicine Trainer Name Role Phone Jonelle Elam MD Primary Care Provider [phone] Reason for Visit * Evaluate & Treat (Routine) - Closed Specialty Diagnoses / Procedures Referred By Contac t Referred To Contact Maternal Medicine Diagnoses Obesity complicating , unspecified trimester (HCC) Liver disease, unspecified Fatty (change of) liver, not elsewhere classified Procedures DE FULL ROUT OBSTE CARE,VAGINAL Taurus Amos MD [address] [place] [address] [facility] [address] [place] [address] Referral ID Status Reason Start Date Expiration Date Visits Re quested Visits Authorized [id number] Closed 06/05/2019 12/02/2019 20 20 Encounter Details Date Type Department Care Team (Latest Contact Info) Description 07/03/2019 11:15 AM CDT - 07/03/2019 11:59 PM CDT Hospital Encounter [facility] Maternal & Care [address] [phone] Annette Sauceda MD [address] [address] Discharge Disposition: Home or Self Care Social [...] Increased Blood Pressure and Edema During 03/11/2020 folic acid (FOLVITE) 1 MG tabletIndications:obe sity [...] 06/05/2019 02/12/2020 documented as of this encounter Consult Notes * Annette Sauceda MD - 07/03/2019 11:15 AM CDT Images from the original note were not included. Dear Dr. Maldonado, I had the pleasure of seeing your patient, Deya Campbell for consultation today. Maternal Medicine Telemedicine Note Telemedicine Note Patient Verification & Telemedicine Based Consent I [...] need for subsequent face to face care. Patient understands that there is a risk of medical inaccuracies given that our recommendations will be madebased on reported data. Knowing that there is a risk that this information is not reported accurately, and that the telemedicine audio, or data feed may be incomplete, the patient agrees to proceed with evaluation. In this evaluation, we will be providing recommendations only. All laws concerning confidentiality and patient access to medical records and copies of medical records apply to telemedicine. I have reviewed this above verification and consent paragraph with the patient/surrogate. Subjective: Deya Campbell is a at 22w6d who has completed a telemedicine encounter regarding, at the request of Dr. Maldonado, for the following issues below: Patient location: Home This encounter was performed using: audio and video Since the last visit she notes that she felt sick for 5 days with a cold. She took amoxicillin for 5 days. Reports BP today was 130/76 Has an US Monday (July 04) to check transvaginal cervical length Not getting [place]--her news correspondent's office never started giving her the medication and instead told her that our office needed to provide this is complicated by: Patient Active Problem List: Cataracts, bilateral NAFLD (nonalcoholic fatty liver disease) Anxiety GERD (gastroesophageal reflux disease) Liver lesion Supervision of high-risk of young multigravida Short interval between pregnancies affecting , antepartum History of delivery Maternal morbid obesity, antepartum Lumbar herniated disc Diverticulitis Sleep apnea Chronic hypertension affecting Frequent headaches Subjective Review of systems: Constitutional: Negative for fevers Eyes: Negative for visual changes Ears, nose, mouth, and throat: Negative for ear drainage or sore throat Respiratory: Negative for shortness of breath; reports dry cough Cardiovascular: Negative for chest pain Gastrointestinal: Negative for nausea; regular bowel movement without pain Genital:Negative for abnormal vaginal discharge Urinary: mild dysuria that has resolved Hematologic/lymphatic: transient vaginal bleeding-- went to L&D June 21 [had a cervical exam 06/20] Musculoskeletal: increased back pain and pain in the legs; one near falling episode that resolved; wearing a maternity belt Neurological: occasional headaches Behavioral/Psych: a little irritable and anxious--mostly due to renovations at the house Endocrine: Energy improved Integument: Denies skin changes Obstetric: movement appreciated, denies leakage of fluid, occasional cramping Objective Physical Examination: VS: There were no vitals taken for this visit. Gen: no acute distress Mental: appropriate mood, behavior and speech Neck: no gross thyroid enlargement Chest: nonlabored breathing, fluent speech Abdomen: gravid, no epigastric tenderness the patient palpation Trunk: mild bilateral costovertebral angle tenderness to patient palpation Extremities: trace pedal edema; symmetric extremities Skin: No rash [...] No current facility-administered medications for this encounter. Has increased aspirin to 2 tablets daily Patient not taking : flexeril, ativan, riboflavin, adalat Taking Vitamin B12 Ultrasound:(see detailed report) Assessment & Plan Patient Active Problem List Diagnosis ??? Short interval between pregnancies affecting , antepartum ??? History of delivery history of spontaneous delivery in 1st two pregnancies ??? Maternal morbid obesity, antepartum ??? Frequent headaches ??? Diverticulitis ??? Sleep apnea Has not had a sleep study ??? Cataracts, bilateral Has artificial lens in left eye ??? NAFLD (nonalcoholic fatty liver disease) ??? Anxiety ??? GERD (gastroesophageal reflux disease) ??? Lumbar herniated disc ??? Chronic hypertension affecting Had mild elevated blood pressure and was asymptomatic at her Hepatology visit April,. History of elevated blood pressure in her previous pregnancies. ??? Liver lesion Liver lesion/mass noted on previous ultrasound. ??? Supervision of high-risk of young multigravida LMP 01/22/19 [approximate] CRL at 13 wk--LUISA 10/31/19 O+ Neg, Imm, RPR-NR, HBSag-NR, HIV-NR, HepC-NR HH 11.6/ 34.2 Plts 283 HgA1C- 5.1 [employer] carrier screen negative Sequential screen started RECOMMENDATIONS: Anxiety Coping well without medication. At risk for mood deterioration. Maternal Medicine recommendations: 1. would benefit from mental health counseling 2. Reassess mood at visits 3. would benefit from Chronic hypertension affecting Reported blood pressure appropriate without medication. No macro proteinuria or abnormal renal or liver function on baseline testing. No current indication for antihypertensive medication. Remains atrisk for complications of hypertensive . Maternal Medicine recommendations: 4. Goal blood pressures <155/95 5. patient instructed to send a copy a blood pressure log to My Chart for my review 6. If blood pressure consistently above 155/95 would benefit from initiating antihypertensive medication 1. patient with adverse reactions to nifedipine and labetalol 7. continue aspirin ( 162 mg) 8. reassess growth at 28, 33 and 37 weeks 9. Daily kick count starting at 28 weeks 10. Weekly 10 point biophysical profile starting at 32 weeks 11. Delivery initiation at 39 weeks 12. Would benefit from and weight reduction Diverticulitis Regular bowel movements. Maternal Medicine recommendations: 13. encouraged to increase dietary fiber Frequent headaches Intermittent headaches. Maternal Medicine recommendations: 14. reminded that she has a prescription for riboflavin for headache prevention History of delivery Had previously elected 17 OH PC supplementation that was never started by the primary news correspondent.Now too late to start since well after 20 weeks. Maternal Medicine recommendations: 15. reassess cervical length on 07/05/2019 16. labor precautions Liver lesion Does not have follow-up with hepatology until after delivery. Baseline liver function tests unremarkable. Maternal Medicine recommendations: 17. reassess LFTs with at least once every trimester Lumbar herniated disc Having significant pain. Received information for a physical therapy group in the mail. Maternal Medicine recommendations: 18. instructed to contact the physical therapy group and ask whether or not they are seeing patients at this time. 19. Discussed the safety of using a medicated heat strip and continued use of the maternity belt Short interval between pregnancies affecting , antepartum Starting to have cramping. Remains at risk for recurrent delivery. Maternal Medicine recommendations: 1. labor precautions Additionally, I recommend the glucose challenge test be performed closer to 28 weeks. The plan was reviewed with the patient and the patient confirmed understanding of the plan and all follow-up steps. All aspects of patient's medical history were reviewed and updated as documented in Epic I recommend a follow-up consultation at 28 weeks. Deya is to follow up with her primary Obstetrical care provider for her routine care and acute OB concerns, including delivery as clinically indicated. I spent 38 minutes by audiovisual communication with the patient; greater than 50 percent of the time was spent in discussion and counseling. Once again, we appreciate the opportunity to [...] puerperium, antepartum condition or complication Frequent headaches Chronic hypertension affecting (HCC) History of delivery Liver lesion Other specified disorders of liver Supervision of high-risk of young multigravida (HCC) Supervision of high-risk of young multigravida Short interval between pregnancies affecting in second trimester, antepartum (HCC) History of delivery, currently in second trimester (HCC) Unspecified pre-existing hypertension complicating , second trimester (HCC) Anxiety during in second trimester, antepartum (HCC) 22 weeks gestation of (HCC) state, incidental * Assessment & Plan Note - Annette Sauceda MD - 07/03/2019 12:57 PM CDT Associated Problem(s): Short interval between pregnancies affecting , antepartum (HCC) (Deleted) Starting to have cramping. Remains at risk for recurrent delivery. Maternal Medicine recommendations: 1. labor precautions * Assessment & Plan Note - Annette Sauceda MD - 07/03/2019 12:55 PM CDT Associated Problem(s): Lumbar herniated disc Having significant pain. Received information for a physical therapy group in the mail. Maternal Medicine recommendations: 1. instructed to contact the physical therapy group and ask whether or not they are seeing patientsat this time. 2. Discussed the safety of using a medicated heat strip and continued use of the maternity belt * Assessment & Plan Note - Annette Sauceda MD - 07/03/2019 12:55 PM CDT Associated Problem(s): Liver lesion (Deleted) Does not have follow-up with hepatology until after delivery. Baseline liver function tests unremarkable. Maternal Medicine recommendations: 1. reassess LFTs with at least once every trimester * Assessment & Plan Note - Annette Sauceda MD - 07/03/2019 12:54 PM CDT Associated Problem(s): History of delivery (Deleted) Had previously elected 17 OH PC supplementation that was never started by the primary news correspondent.Now too late to start since well after 20 weeks. Maternal Medicine recommendations: 1. reassess cervical length on 07/05/2019 2. labor precautions * Assessment & Plan Note - Annette Sauceda MD - 07/03/2019 12:53 PM CDT Associated Problem(s): Frequent headaches Intermittent headaches. Maternal Medicine recommendations: 1. reminded that she has a prescription for riboflavin for headache prevention * Assessment & Plan Note - Annette Sauceda MD - 07/03/2019 12:53 PM CDT Associated Problem(s): Diverticulitis Regular bowel movements. Maternal Medicine recommendations: 1. encouraged to increase dietary fiber * Assessment & Plan Note - Annette Sauceda MD - 07/03/2019 12:49 PM CDT Associated Problem(s): Chronic hypertension affecting (HCC) (Deleted) Reported blood pressure appropriate without medication. No macro proteinuria or abnormal renal or liver function on baseline testing. No current indication for antihypertensive medication. Remains atrisk for complications of hypertensive . Maternal Medicine recommendations: 1. Goal blood pressures <155/95 2. patient instructed to send a copy a blood pressure log to My Chart for my review 3. If blood pressure consistently above 155/95 would benefit from initiating antihypertensive medication 1. patient with adverse reactions to nifedipine and labetalol 4. continue aspirin ( 162 mg) 5. reassess growth at 28, 33 and 37 weeks 6. Daily kick count starting at 28 weeks 7. Weekly 10 point biophysical profile starting at 32 weeks 8. Delivery initiation at 39 weeks 9. Would benefit from and weight reduction * Assessment & Plan Note - Annette Sauceda MD - 07/03/2019 12:48 PM CDT Associated Problem(s): Anxiety (Deleted) Coping well without medication. At risk for mood deterioration. Maternal Medicine recommendations: 1. would benefit from mental health counseling 2. Reassess mood at visits 3. would benefit from documented in this encounter Care Teams Sports Medicine Trainer Relationship Specialty Start Date End Date Jonelle Elam MD [address] [place] [phone] PCP - General Family Medicine 10/24/18 documented as of this encounter
--- OUTSIDE RECORDS SUMMARY | 2024-04-14 17:45 | XMS_ITS | Encounter Summary ---
Author Organization [facility] Address [address] [facility] [place] [address] Care Team Providers Care Dentistry Teacher Name Role Phone Jonelle Elam MD Primary Care Provider Manju Rainey DO Unavailable [phone] Reason for Visit * Reason Comments Bariatric Surgery Pre-op Instruction Encounter Details Date Type Department Care Team (Late st Contact Info) Description 11/05/2020 2:30 PM CDT Office Visit [facility] Management Services [address] [place] [id number] Carmen Lee, GRANITE POLISHER MACHINE-ANALYSIS OR RESEARCH SAFETY INSPECTOR [address] [place] [address] BMI 50.0-59.9, adult (HCC) (Primary Dx); Class [...] disorder with mixed anxiety and depressed mood Social History Tobacco Use Types Packs/Day Years [...] Sign Reading Time Taken Comments Blood Pressure 148/87 11/05/2020 2:00 PM CDT Pulse 78 11/05/2020 2:00 PM CDT Temperature 36.7 ??C (98 ??F) 11/05/2020 2:00 PM CDT Respiratory Rate 18 11/05/2020 2:00 PM CDT Oxygen Saturation 100% 11/05/2020 2:00 PM CDT Inhaled Oxygen Concentration - - Weight 145.2 kg (320 lb) 11/05/2020 2:00 PM CDT Height 157.5 cm (5' 2 ) 11/05/2020 2:00 PM CDT Body Mass Index 58.53 11/05/2020 2:00 PM CDT documented in this encounter Patient Instructions * Patient Instructions* Eloy Jordan LPN - 11/05/2020 2:25 PM CDT It is important to keep all scheduled appointments to be successful in you weight loss journey. If an appointment does not work with your schedule please reschedule as soon as you can. We want to help you to our fullest ability to be successful with your weight loss. documented in this encounter Progress Notes * Carmen Lee APRN-CNP - 11/05/2020 2:30 PM CDT Images from the original note were not included. [facility] [address] [address] PH: [phone] , Date of encounter: 11/05/2020 Provider: PARAS Cervantes Patient: Deya Campbell [facility]: [id number] Specialty: Bariatric Surgery Date of : 1995 [...] meeting; number of support group meetings attended 0/3. Patient is taking 30 grams of protein supplements daily. Patient is taking 70-80 oz of water per day. Patient is engaged in 120 minutes 1-2 days per week. The patient has not been participating in NExT program. Patient was initially evaluated for BIV by Dr. Rain Claros in January 2020; she continued following with [facility] until March 2020 when she began following up with Dr.Esther Rainey whom she followed with until October 2020 at which time she requested to be seen by Dr. Bojorquez at [facility]. Patient is non-smoker, reports she has done informational session in past prior to seeing Dr. Claros; she will need to have support groups x 3 per program requirements as well as psych clearance. She reports she has been seeing dietitian while in medical weight loss program. Patient does report having issues with pain after eating fattier foods. GB US was ordered by Dr. Rainey; however, patient has not gotten testing done as of this time. She also reports that she has been experiencing frequent loose stools for approximately one month; reports that odor of stools is different than previous. She does report history of chronic diverticulitis; per visit note with Dr. Rainey 10/27/2020, patient has history of IBS with both constipation and diarrhea. Weight change as in weight history below. [...] 320 lb (145.2 kg) BMI (Calculated): 58.51 Obesity History Years at current weight? 1 [...] Gatherings with Friends and Family: ??? Attends Jainism Services: ??? Active Member of Clubs or Organizations: ??? Attends Club or Organization Meetings: ??? Marital Status: Intimate Partner Violence: ??? Fear of Current or Ex-Partner: ??? Emotionally Abused: ??? Physically Abused: ??? Sexually Abused: Family History Problem Relation Name Age of [...] Outpatient Medications Marked as Taking for the 11/05/20 encounter (Office Visit) with Carmen Lee APRN-CNP Medication Sig ??? escitalopram (LEXAPRO) 10 MG [...] ??? vitamin D, ergocalciferol, (DRISDOL) 1.25 MG (34446 UT) capsule Take 1 (one) capsule by [...] Negative for chest pain. Gastrointestinal: Positive for abdominal pain (intermittent onset approximately 1-2 months ago; reports uncomfortable, shooting, stabbing with sudden onset lasting less than 5 minutes before spontaneously resolving. Reports food increases. ) and heartburn. Negative for nausea and vomiting. Objective: Vital Signs: BP 148/87 Pulse 78 Temp 98 ??F (36.7 ??C) Resp 18 Ht 5' 2 (1.575 m) Wt 320 lb (145.2 kg) SpO2 100%BMI 58.53 kg/m2 Weight: (!) 320 lb (145.2 kg) Height: 5' 2 (157.5 cm) Body mass index is 58.53 kg/m??. Physical Exam Constitutional: General: She is not in acute distress. Appearance: She is obese. She is not ill-appearing. HENT: Head: Normocephalic and atraumatic. Cardiovascular: Rate and Rhythm: Normal rate and regular rhythm. Heart sounds: Normal heart sounds. No murmur heard. No friction rub. No gallop. Pulmonary: Effort: Pulmonary effort is normal. No respiratory distress. Breath sounds: Normal breath sounds. No stridor. No wheezing, rhonchi or rales. Abdominal: General: Bowel sounds are normal. There is no distension. Palpations: Abdomen is soft. There is no mass. Tenderness: There is no abdominal tenderness. There is no guarding or rebound. Hernia: No hernia is present. Musculoskeletal: General: No swelling or deformity. Normal range of motion. Cervical back: Normal range of motion. Skin: General: Skin is warm and dry. Capillary Refill: Capillary refill takes less than 2 seconds. Coloration: Skin is not pale. Findings: No erythema. Neurological: Mental Status: She is alert and [...] as per insurance company and patienthas completed 1/3-6 months. Will plan for Laparoscopic sleeve gastrectomy [...] red sauce (tomato based). Currently takes pantoprazole 50 mg PO daily. Will see Dr. Bojorquez at next available for BIV visit - anticipate scheduling of EGD following that visit. (E55.9) Vitamin D deficiency Currently taking vitamin-D supplement 2000 units by mouth daily. Vitamin-D level obtained on 10/17/2020 showed vitamin-D level at 20. Patient was seen by Dr. Manju Rainey on 10/28/2019 at that time it was recommended patient began taking Ergocalciferol 55095 units by mouth weekly and continue taking [id number] vitamin-D supplement 2000 units daily. (I10) Essential hypertension Currently takes losartan for management. BP at today's visit was 148/87. Will defer to primary careprovider for continued monitoring and management. (K76.0) NAFLD (nonalcoholic fatty liver disease) Patient follows with Dr. Maribel Kitchen, car head liner installer, at [facility]; per previous scan liver shows changesquestionable for cirrhosis. Patient states Dr. Kitchen recommends she have liver biopsy. Patient inquires about liver biopsy at time of bariatric surgery. Will schedule her to see Dr. Bojorquez for BIV with him to discuss surgery and request for liver biopsy. She will continue to follow with hepatology for continued monitoring and management. (Z86.39) History of iron deficiency Lab done 10/17/2020 showed iron remained low 27.90. She is currently taking ferrous sulfate 142 mg by mouth. Will monitor his postoperatively at 3 months, 6 months in 1 year. (K58.2) Irritable bowel syndrome with both constipation and diarrhea Will defer to primary care provider for continued monitoring and management. (F43.23) Adjustment disorder with mixed anxiety and depressed mood Currently takes Escitalopram for management. Will defer to primary care provider for continued monitoring and management. PLAN: - show weight loss at [...] and Test ordered or needs follow up: Will be determined at [facility] with Dr. Bojorquez Follow up: Will see Dr. Bojorquez for BIV at next available appointment. 18 minutes was spent with patient. More than [...] disorder with mixed anxiety and depressed mood documented in this encounter Care Teams Dentistry Teacher Relationship Specialty Start Date End Date Jonelle Elam MD [address] [place] [address] [place] [address] PCP - General Family Medicine 10/24/18 Manju Rainey DO [address] [place] [address] Bariatrics 08/11/20 documented as of this encounter
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
--- OUTSIDE RECORDS SUMMARY | 2024-04-14 17:45 | XMS_ITS | Encounter Summary ---
Author Organization [facility] Address [address] [place] [address] Care Team Providers Care Chief Of Internal Medicine Name Role Phone Jonelle Elam MD Primary Care Provider [phone] Encounter Details Date Type Department Care Team (Late st Contact Info) Description 04/17/2020 Orders Only [facility] Weight Management Services [address] [place] [address] Manju Rainey DO [address] [place], [place] [address] Obesity, morbid, BMI 50 or higher (HCC) Social History Tobacco Use Types Packs/Day [...] COVID-19? No / Unsure 04/17/2020 2:31 PM HEEL ATTACHER WOOD documented as of this encounter Plan of Treatment Not on file documented as of this encounter Visit Diagnoses Diagnosis Obesity, morbid, BMI 50 or higher (HCC) documented in this encounter Care Teams Chief Of Internal Medicine Relationship Specialty Start Date End Date Jonelle Elam MD [address] [place] [address] ROGELIO Reinoso [phone] PCP - General Family Medicine 10/24/18 documented as of this encounter
--- OUTSIDE RECORDS SUMMARY | 2024-04-14 17:45 | XMS_ITS | Encounter Summary ---
Author Organization [facility] Address [address] [place] [address] Care Team Providers Care Engineering Systems Analyst Name Role Phone Jonelle Elam MD Primary Care Provider [phone] Manju Rainey DO Unavailable [phone] Encounter Details Date Type Department Care Team (Late st Contact Info) Description 12/30/2020 10:00 AM CDT Office Visit [facility] Weight Management Services [address] [place] [phone] Morbid obesity (HCC) (Primary Dx) Social History [...] - Inhaled Oxygen Concentration - - Weight 141.2 kg (311 lb 3.2 oz) 12/30/2020 9:00 AM CDT Height 157.5 cm (5' 2 ) 12/30/2020 9:00 AM CDT Body Mass Index 56.92 12/30/2020 9:00 AM CDT documented in this encounter Progress Notes * Yasmin Sanches, RD/LD - 12/30/2020 10:00 AM CDT MEDICAL NUTRITION THERAPY Weight Management Services Bariatric Surgery Follow-Up Session Number: Session II Session Date: 12/30/20 Patient: Deya Campbell Date of : 1995 (25 year old) PCP Physician: Jonelle Elam MD Referring Physician: Maryellen NUTRITION MILTON Primary Diagnoses/Co-morbidities: Morbid Obesity Secondary Diagnoses/Co-morbidities: Hypertension (anx,diverticulitis,NAFLD,postpart.dep, SA) Have you seen a dietitian?: Yes Pertinent Labs: Vit D- 20, TGS- 186, Iron Sat- 12% Pertinent Medications: reviewed Current V/M Supplements: D2 weekly, iron and vit C Eating History Are you following a special diet at home?: Weight Reduction Are you having trouble following your diet?: No Are you having any trouble eating?: No Are you avoiding salty food, and not adding salt to your food?: No Are you limiting your liquids?: No How much liquids per day do you drink?: 64-70 oz/day Usual Number of Times You Eat Out Per Week : 0 Who prepares the meals?: Self Exercise Type of exercise?: Swimming; Aerobic Machine (yardwork) How many times do you exercise each week?: 4 How many minutes of exercise each time?: 30 Minutes Weight History Height: 5' 2 (157.5 cm) Initial Program Weight: MMWL- 320 lb 11.2 oz. BMI 57.98 ?? BIV: 313# BMI 58.51 Current Weight: (!) 311 lb 3.2 oz (141.2 kg) Weight Method (Utilize Scales): Standing BMI (Calculated): 56.9 Has your weight changed since last visit?: Loss # (9.5#) Total Program Weight Loss: 9.5# Pt seen for nutrition f/u. Pt is planning VSG. Pt's weight is down 1.3# since last visit, and 9.5 since beginning program. Pt reports drinking 1 shake a day as a meal. Pt reports is working on reducing portions and slowing down when eating. Pt reports is working on mindfulness. Pt reports drinking 64-70 oz water daily. Pt reports going to the gym 2x/week and is doing cardio and some light weights. Reviewed vitamins and food recall. 24 Hour Food Recall Breakfast - Fairlife shake, 1 cup coffee Lunch - Olives, nuts, or tuna pack Dinner - baked or grilled chicken, cottage cheese or pineapple Snacks - none Beverages - 64-70 oz water, SF Pillow NUTRITION DIAGNOSIS Diagnosis: Overweight/obesity Related to: (hx of excessive calorie intake) As evidenced by: BMI 56.92. NUTRITION INTERVENTION Interventions: Motivational interviewing; Goal setting; Collaboration with other providers Reviewed healthy balance diet for weight loss using protein shakes. Reviewed the saldana bariatric dietprinciples. Further instruction provided for phases of bariatric diet. Reinforced behavior changes for bariatric diet such as no straws and smaller plate. Explained importance of continued bariatric vitamin/mineral and protein supplementation. Pt v/u. Pt will continue to drink 1 shake a day as a meal and encouraged pt increase to BID to prepare for surgery. Reviewed the plate model and portions and encouraged pt continue to take 20 minutes to consume meals. Encouraged 64+ oz fluids daily. Encouraged pt increase exercise as able. Pt v/u and will f/u in one month if surgeries do not resume. External Barriers to Change: none NUTRITION MONITORING/EVALUATION Nutrient Needs: Goals: Nutrition Goal #1: 1-2 shakes a day as meals Nutrition Goal #2: Keep portions within the plate model Nutrition Goal #3: 150+ minutes exercise weekly Monitor/Evaluation: Monitoring and evaluation: Fluid/beverage intake; Food intake; Food and nutrition knowledge/skills; Beliefs and attitudes; Adherence; Physical activity; Weight change; Body Mass index RD contact information provided. Pt encouraged to call RD with questions and/or concerns. Evaluation of Overall Compliance Potential: Comprehension: Often Demonstrated Receptivity: Often Demonstrated Adherence: Often Demonstrated Session Information Session Date: 12/30/20 Session Beginning Time: 953 Session ending time: 1018 Session total minutes: 24 Minutes Teaching Method: Explanation; Demonstration; Teach Back Next visit: (1 month f/u or pre-surgery ) Total MNT minutes this calendar year: 60/240 Nutritional Review ?? Cleared, additional RD visits required pre-op ()___ ?? Cleared, no additional RD visits required pre-op _X__ Will f/u at pre-surgery if surgeries resume ?? Not cleared, additional RD visit(s) required pre-op ___ ?? Continue with post op RD visits per protocol ___ Yasmin Sanches RD/LD documented in this encounter Plan of Treatment [...] obesity documented in this encounter Care Teams Engineering Systems Analyst Relationship Specialty Start Date End Date Jonelle Elam MD [address] [place] [address] [place] [phone] PCP - General Family Medicine 10/24/18 Manju Rainey DO [address] [place] [address] Bariatrics 08/11/20 documented as of this encounter
--- OUTSIDE RECORDS SUMMARY | 2024-04-14 17:45 | XMS_ITS | Encounter Summary ---
Author Organization [facility] Address [address] [facility] [place] [place] [address] Care Team Providers Care Risk And Insurance Manager Name Role Phone Jonelle Elam MD Primary Care Provider Manju Rainey DO Unavailable Reason for Visit * Reason Onset Date Comments Appointment 09/10/2020 Encounter Details Date Type Department Care Team (Late st Contact Info) Description 09/10/2020 Telephone [facility] Weight Management Services [address] [place] [phone] Manju Rainey, DO [address] [place] [address] Appointment Social History Tobacco Use Types Packs/Day [...] encounter Miscellaneous Notes * Telephone Encounter - Zaynabnina LiliaREBECCA wise - 09/10/2020 10:49 AM CDT Per , she wants pt to come into ofc for visit,, not video visit. I called pt and explainedthis, pt states she will see if she can get off work. Informed pt this appt is scheduled in [facility], if she needs CNT ofc, she will need to r/s. Pt verbalized understanding. documented in this encounter Plan of Treatment Not on file documented as of this encounter Visit Diagnoses Not on filedocumented in this encounter Care Teams Risk And Insurance Manager Relationship Specialty Start Date End Date Jonelle Elam MD [address] [place] [address] [place] [phone] PCP - General Family Medicine 10/24/18 Manju Rainey DO [address] [place] [address] Bariatrics 08/11/20 documented as of this encounter
--- OUTSIDE RECORDS SUMMARY | 2024-04-14 17:45 | XMS_ITS | Encounter Summary ---
Author Organization [facility] Address [address] [place] [address] Care Team Providers Care Dairy Nutritionist Name Role Phone Jonelle Elam MD Primary Care Provider [phone] Reason for Visit * Reason Comments Results Encounter Details Date Type Department Care Team (Late st Contact Info) Description 01/14/2019 Telephone [facility] - [address] [phone] Leo Quijano, RN Results Social History Tobacco Use Types Packs/Day Years Used Date Smoking Tobacco: Never Assessed Sex and Gender Information Value Date Recorded Sex Assigned at Not on file Gender Identity Not on file Sexual Orientation Not on file documented as of this encounter Miscellaneous Notes * Telephone Encounter - Leo Quijano, RN - 01/14/2019 12:24 PM CDT Spoke with pt re: lab testing and negativity for autoimmune issue discussed with pt. Further discussed upcoming appt for MRI. Verbalizes understanding of all conversation points and is grateful for the call. * Telephone Encounter - Leo Quijano, RN - 01/14/2019 12:24 PM CDT ----- Message from Maribel Kitchen MD sent at 01/10/2019 4:57 PM CDT ----- Rich, Can you let Deya know that her autoimmune workup was negative? ALso, we reviewed her imaging in tumor conference yesterday. While we still believe the lesion to be benign, it was recommended that she have repeat MRI with eovist in Apr before her visit with me. Can you help arrange that? THanks. Ro ----- Message ----- From: Interface, Generic Out Multi Sent: 01/02/2019 1:12 PM CDT To: Maribel Kitchen MD documented in this encounter Plan of Treatment Not on file documented as of this encounter Visit Diagnoses Not on filedocumented in this encounter Care Teams Dairy Nutritionist Relationship Specialty Start Date End Date Jonelle Elam MD [address] [place] [address] [place] [phone] PCP - General Family Medicine 10/24/18 documented as of this encounter
--- OUTSIDE RECORDS SUMMARY | 2024-04-14 17:45 | XMS_ITS | Encounter Summary ---
Author Organization [facility] Address [address] [place] [address] Care Team Providers Care Senior Solutions Workflow Consultant Name Role Phone Jonelle Elam MD Primary Care Provider [phone] Reason for Visit * Reason Comments Abnormal Liver FNH? Encounter Details Date Type Department Care Team (Late st Contact Info) Description 01/11/2019 Telephone [facility] [address] [place] [phone] Nasir Knight RN Abnormal Liver (FNH?) Social History Tobacco Use Types Packs/Day Years Used Date Smoking Tobacco: Never Assessed Sex and Gender Information Value Date Recorded Sex Assigned at Not on file Gender Identity Not on file Sexual Orientation Not on file documented as of this encounter Progress Notes * Nasir Knight, RN - 01/11/2019 11:56 AM CDT Notified patient of need to repeat MRI per tumor board recommendation. Pt agreed to attend 01/28/19@ 545pm. She will report to the [facility] for registration. NPO for 4 hours prior documented in this encounter Plan of Treatment Not on file documented as of this encounter Visit Diagnoses Not on filedocumented in this encounter Care Teams Senior Solutions Workflow Consultant Relationship Specialty Start Date End Date Jonelle Elam MD [address] [place] [address] [place] [phone] PCP - General Family Medicine 10/24/18 documented as of this encounter
--- OUTSIDE RECORDS SUMMARY | 2024-04-14 17:45 | XMS_ITS | Encounter Summary ---
Author Organization [facility] Address [address] [facility] [place] [address] Care Team Providers Care Rolfer Name Role Phone Jonelle Elam MD Primary Care Provider Manju Rainey DO Unavailable [phone] Encounter Details Date Type Department Care Team (Late st Contact Info) Description 08/17/2020 Orders Only [facility] Weight Management Services [address] [place] [phone] Manju Rainey DO [address] [place], [place] [phone] Abnormal craving Social History Tobacco Use Types Packs/Day Years Used Date Smoking Tobacco: Never Smokeless Tobacco: Never Alcohol Use Standard Drinks/Week Comments Not Currently 0 (1 standard drink = 0.6 oz pur e alcohol) Sex and Gender Information Value Date Recorded Sex Assigned at Not on file Gender Identity Not on file Sexual Orientation Not on file documented as of this encounter Progress Notes * Manju Rainey DO - 08/17/2020 2:35 PM CDT Pt wishes to try Wellbutrin for sweet / carb cravings. BP well controlled. No hx of seizures. RX sent to pharmacy. Pt to monitor BP periodically and let me know if BP running > 140/90 or any problems. Pt in agreement with plan. documented in this encounter Plan of Treatment Not on file documented as of this encounter Visit Diagnoses Diagnosis Abnormal craving- Primary Pica documented in this encounter Care Teams Rolfer Relationship Specialty Start Date End Date Jonelle Elam MD [address] [place] [address] [place] [phone] PCP - General Family Medicine 10/24/18 Manju Rainey DO [address] [place] [address] Bariatrics 08/11/20 documented as of this encounter
--- OUTSIDE RECORDS SUMMARY | 2024-04-14 17:45 | XMS_ITS | Encounter Summary ---
Author Organization [facility] Address [address] [place] [address] Care Team Providers Care Dough Cutting Machine Operator Name Role Phone Jonelle Elam MD Primary Care Provider [phone] Reason for Visit * Reason Onset Date Comments Appointment 05/21/2020 Encounter Details Date Type Department Care Team (Late st Contact Info) Description 05/21/2020 Telephone [facility] Weight Management Services [address] [place] [phone] Manju Rainey, [address] [place], [place] [phone] Appointment Social History Tobacco Use Types Packs/Day [...] Telephone Encounter - Ella Harley CNA - 05/21/2020 11:02 AM SWINE GENETICS RESEARCHER Patient was seen on 05/20/20 by . Left message for her to return call to clinic to schedule1 month follow up. E GENETICS RESEARCHER documented in this encounter Plan of Treatment Not on file documented as of this encounter Visit Diagnoses Not on filedocumented in this encounter Care Teams Dough Cutting Machine Operator Relationship Specialty Start Date End Date Jonelle Elam MD [address] [place] [phone] PCP - General Family Medicine 10/24/18 documented as of this encounter
--- OUTSIDE RECORDS SUMMARY | 2024-04-14 17:45 | XMS_ITS | Encounter Summary ---
Author Organization [facility] Address [address] [address] Care Team Providers Care Abstracter Name Role Phone Jonelle Elam MD Primary Care Provider [phone] Manju Rainey DO Unavailable [phone] Reason for Visit * Reason Comments Obesity Follow Up Encounter Details Date Type Department Care Team (Late st Contact Info) Description 10/27/2020 3:00 PM CDT Office Visit [facility] Weight Management Services [address] [place] [address] [phone] Manju Rainey, DO [address] [place], [place] [id number] Obesity, morbid, BMI 50 or higher (HCC) (Primary Dx); Abdominal pain, RUQ (right upper quadrant); Vitamin D deficiency; Essential hypertension; Abnormal craving; Irritable bowel syndrome with both constipation and diarrhea; NAFLD (nonalcoholic fatty liver disease); Adjustment disorder with mixed anxiety and depressed mood; Gastroesophageal reflux disease, unspecified whether esophagitis present Social History Tobacco Use Types Packs/Day Years [...] Sign Reading Time Taken Comments Blood Pressure 140/80 10/27/2020 3:00 PM CDT Pulse 86 10/27/2020 3:00 PM CDT Temperature 36.9 ??C (98.4 ??F) 10/27/2020 3:00 PM CD T Respiratory Rate 18 10/27/2020 3:00 PM CDT Oxygen Saturation - - Inhaled Oxygen Concentration - - Weight 145.2 kg (320 lb) 10/27/2020 3:00 PM CDT Height - - Body Mass Index 58.53 10/27/2020 11:17 AM CDT documented in this encounter Patient Instructions * Patient Instructions* Manju Rainey, - 10/27/2020 4:10 PM CDT Images from the original note were not included. Patient Education Weight Management MEDICAL CUSTOMER SERVICE REPRESENTATIVE: Why it is important to manage [...] foods. Some examples of high-fat foods include azeri fries, doughnuts, ice cream, and cakes. ?? [...] on your weight loss goals. ?? Copyright [employer] 2020 Information is for End User's use only and may not be sold, redistributed or otherwise used for commercial purposes. All illustrations and images included in CareNotes?? are the copyrighted property of [employer]. or [employer] The above information is an reading aide only. It is not intended as medical advice for individual conditions or treatments. Talk to your doctor, nurse or pharmacist before following any medical regimen to see if it is safe and effective for you. documented in this encounter Progress Notes * Manju Rainey DO - 10/27/2020 4:05 PM CDT Images from the original note were not included. [facility] [address] [address] Dept: [phone] Dept Date of encounter: 10/27/2020 Provider: Manju Rainey DO Patient: Deya Campbell [facility]: [id number] Specialty: Bariatrics. Date of : 1995 Visit type: Medical weight loss follow up This 24 year old female patient was referred by self for Medical Weight loss follow up. Bariatric HPI she was seen in clinic last by video appointment 08/12/2020. Patient reported weight at that time was 307 lb. Patient is current weight 320 lb. Patient has had a weight gain of 12.8 lb. Patient attributes the weight gain to increased snacking. Patient requesting to return to the bariatric surgery program. Patient saw her liver specialist today for fatty liver. Her liver specialist recommended that reconsideration of bariatric surgery should be entertained as she does need to lose the weight more quickly. Patient reports that she is been having intermittent nausea and right upper quadrant painfor the last couple of months. Recently it has been daily. No fever. Occasionally pain radiates to upper back. Patient does have history of reflux. She reports that this does feel somewhat different than her reflux. Reports increased belching. Symptoms are increased with fatty foods. I offered to order a gallbladder ultrasound however patient wants it done at [facility]. Patient will have her PCP to order the test. Patient would like to follow-up with Dr. Claros for bariatric surgery as well as follow-up for possible gallbladder issues. Patient with history of adjustment disorderwith depressed mood. Patient lost her son in 2019. I have offered counseling but patient is not ready. We started Wellbutrin XL 150 mg for abnormal cravings. Patient states that her anxiety and depressive symptoms are markedly improved with this medication. However patient started developing headaches and increased blood pressure soon after starting the Wellbutrin. Advised to stop the Wellbutrin.Patient will follow-up with PCP for evaluation and treatment of depressive disorder. No self-harm thoughts. Patient in agreement with plan. Patient had labs done at [facility]. Those are not available for review today. Patient could see them on her phone. Her vitamin-D level was 16 on 10/17/2020. Will continue vitamin-D replacement aunt and an additional 2000 units over the counter daily on Days not taking her 68681 unit dose. Dyslipidemia managed by PCP. IBS symptoms have been good. Activity: Patient has joined a gym and is working out several days per week with both aerobic and resistance components. Patient also takes her son with her to work out as well. If she does not go tothe gym she rides her exercise bike. Sleep: 6-7 hours. Goal 7.5-9 hours. Co morbid conditions: Hypertension, fatty liver, adjustment disorder with anxiety and depressed mood, vitamin-D deficiency, dyslipidemia, reflux, IBS Care team: PCP, liver specialist, Gynecology, weight management GOALS from last visit: 1: Less than 1900 calories per day with 1 or 2 protein meal replacements daily. Working toward goal. 2. 90+ g protein daily. Generally meeting goal. 3. 64+ oz fluid daily. Meeting goal. Patient is taking 10 to 15 g of protein with Gatorade protein drinks. Patient thought that the protein shakes might be causing her nausea. Her nausea and right upper quadrant pain increased after foods as well. Patient is taking 64 oz of fluid per day. Doing workout at the gym with aerobic and resistance work several days per week. Also doing her exercise bike and walking at home as well. The patient is on weight loss medication : We tried Wellbutrin XL 150 mg p.o. daily for abnormal cravings. Patient developed headaches and some increase in her blood pressure. Wellbutrin will be stopped and patient will follow-up with her PCP for evaluation and management of adjustment disorder with anxiety and depression symptoms. The patient has gained 12 point 8 lb from previous visit. Her previous visit was by telemedicine and her weight was on a different scale and was a reported weight. Weight History: Initial Weight: 320.7 lb. BMI [...] Total Wt Loss in lb: 0.7 lb Obesity History Years at current weight? [...] you have an unusual work schedule? na [place] Sleepiness Scale total points: 9 Past Medical [...] Gatherings with Friends and Family: ??? Attends Congregational Services: ??? Active Member of Clubs or [...] Outpatient Medications Marked as Taking for the 10/27/20 encounter (Office Visit) with Manju Rainey, DO Medication Sig ??? ASPIRIN PO Take 200 mg by mouth as needed Patient taking 200-800 mg daily ??? Ferrous Sulfate (SLOW FE) 142 [...] ??? vitamin D, ergocalciferol, (DRISDOL) 1.25 MG (11117 UT) capsule Take 1 (one) capsule by mouth every 7 days Reasons: Vitamin D Deficiency (Not in a hospital admission) Allergies Allergen Reactions ??? Levofloxacin Urticaria and Itching Chest pain, shortness of breath and pain and weakness in legs ??? Cephalexin Rash ??? Nifedipine Other Facial redness, palpitations ??? Labetalol Shortness of Breath ROS: Systemic: negative Psychological ROS: Grief, adjustment disorder with anxiety and depressed mood. Patient will follow-up with PCP for evaluation and management. Ophthalmic ROS: negative ENT ROS: negative Hematological ROS: Vitamin-D deficiency being treated. Iron deficiency being treated. Will review labs when available. Endocrine ROS: negative Respiratory ROS; negative Cardiovascular ROS: Hypertension with increased blood pressure on Wellbutrin. Patient will stop Wellbutrin and monitor blood pressure and follow-up with PCP. Dyslipidemia managed by PCP. GI ROS: Fatty liver. Two month history of intermittent nausea and right upper quadrant pain. Patient will follow-up with PCP for orders for gallbladder ultrasound. Patient would like to follow-up with Dr. Claros after ultrasound for possible gallbladder issues as well as restart for bariatric surgery program. ROS: negative Musculoskeletal ROS: negative Neurological ROS: negative Dermatological ROS: negative. Objective: Vital Signs: BP 140/80 Pulse 86 Temp 98.4 ??F (36.9 ??C) Resp 18 Wt 320 lb (145.2 kg) BMI 58.53 kg/m2 Weight: (!) 320 lb (145.2 kg) Body mass index is 58.53 kg/m??. Constitutional: Alert, awake and oriented without any apparent discomfort. Eyes: Anicteric. No subconjunctival hemorrhage. Extraocular muscles were intact. Neck Exam: Supple. Trachea midline. No thyromegaly. No cervical or supraclavicular lymphadenopathy. Respiratory : Lungs were clear to auscultation bilaterally. No rales, rhonchi Cardiovascular: Regular rate and rhythm. No rub, murmur or gallop. No distal lower extremity edema noted. Abdomen: Abdomen was obese, soft non distended. Some upper abdominal tenderness. More in the right upper quadrant but also some mild in the epigastric area. No rigidity rebound or guarding.. No palpable ventral hernias. Bowel sounds active throughout. Skin: Warm and dry. . No ulcers or rashes,. Normal color. Extremities: Well perfused. No gross joint deformity noted Neurological: A& O X 3. Gait and stance normal. Psychiatric: The patient's mood and affect appeared to be appropriate. Patient is neatly dressed. Patient has spontaneous conversation and answers questions appropriately. Patient does appear motivated to continue healthy lifestyle modification for better health and work toward a healthier BMI. Patient would like to restart the bariatric surgery program. Patient will be referred back to [facility] bariatric surgery program in [facility]. Labs Recent Labs Component Name 04/12/19 1514 01/02/19 1236 AST 16 20 ALT 12 24 Some lab results will be in paper format so may be scanned in the EMR. Labs reviewed from 04/16/2020 and 05/14/2020. Labs requested from [facility] that were done recently. Will review when available. Patient reports vitamin-D level was 16 on 10/17/2020. Imaging studies No results found. Some Imaging [...] with 1 or 2 protein meal replacements daily if tolerated. Encouraged tracking. Encouraged small plate model for portion control. 2. 90+ g protein daily. 3. 64+ oz fluid daily. 4. 150 min of aerobic activity and 3 days of resistance work weekly. 5. 7.5-9 hours sleep daily. 6. Mindful eating with snacking only if truly hungry. Choose from low-calorie lean protein and produce snacks less than or equal to 100 calories. 2. Abdominal pain, RUQ (right upper quadrant) R10.11 CANCELED: US GALLBLADDER [address] Patient will call PCP to have gallbladder testing done near her home at [facility]. Patient will schedule follow-up with Dr. Claros after testing completed. 3. Vitamin D deficiency E55.9 vitamin D, ergocalciferol, (DRISDOL) 1.25 MG (73468 UT) capsule weekly. May take [id number] vitamin-D 2000 units daily on other days. 4. Essential hypertension I10 Continue care with PCP. Healthy lifestyle modification and weight reduction may improve blood pressure control. Stop Wellbutrin and monitor blood pressure daily to make sure blood pressure goes back to previous values of less than 140/90. Call if any problems. 5. Abnormal craving R63.8 Stop Wellbutrin. Discussed stimulus control. 6. Irritable bowel syndrome with both constipation and diarrhea K58.2 Continue care with PCP. Symptoms stable. 7. NAFLD (nonalcoholic fatty liver disease) K76.0 Continue care with liver specialist. Per patient history her liver specialist would prefer she seek treatment for faster weight loss dueto her liver issues. 8. Adjustment disorder with mixed anxiety and depressed mood F43.23 Patient to follow-up with PCP for evaluation and management. Optimal management of anxiety and depressive disorder may enhance compliance with weight managementprogram. 9. Gastroesophageal reflux disease, unspecified whether esophagitis present K21.9 pantoprazole EC (PROTONIX) 40 MG tablet Reflux precautions. Weight reduction may improve reflux symptoms. Consults and Test ordered or needs follow up: Continue care with PCP and specialist as directed. Follow-up with PCP for orders for gallbladder ultrasound as well as evaluation and treatment for anxiety and depressive disorder. Patient will be referred back to bariatric surgery program with [facility] in [facility]. Patient would like to see Dr. Claros. Follow up: Will see me as needed. Patient will be seen by bariatric surgery program. She is welcometo see me for her monthly monitoring if she desires. She verbalized understanding and is agreeable to this plan after shared decision making with patient. This encounter with the patient lasted 38 min including chart prep, patient visit with counseling with the patient regarding increased physical [...] morbid, BMI 50 or higher (HCC)- Primary Abdominal pain, RUQ (right upper quadrant) Abdominal pain, right upper quadrant Vitamin D deficiency Essential hypertension Abnormal craving Pica Irritable bowel syndrome with both constipation and diarrhea NAFLD (nonalcoholic fatty liver disease) Other chronic nonalcoholic liver disease Adjustment disorder with mixed anxiety and depressed mood Gastroesophageal reflux disease, unspecified whether esophagitis present documented in this encounter Care Teams Abstracter Relationship Specialty Start Date End Date Jonelle Elam MD [address] [place] [address] [place] [address] PCP - General Family Medicine 10/24/18 Manju Rainey DO [facility] [place] [address] [place] [address] Bariatrics 08/11/20 documented as of this encounter
--- OUTSIDE RECORDS SUMMARY | 2024-04-14 17:45 | XMS_ITS | Encounter Summary ---
Author Organization [facility] Address [address] [place] [address] Care Team Providers Care Ocular Care Technologist Name Role Phone Jonelle Elam MD Primary Care Provider [phone] Manju Rainey DO Unavailable [phone] Reason for Visit * Reason Comments Obesity Follow Up Encounter Details Date Type Department Care Team (Late Contact Info) Description 08/12/2020 2:30 PM CDT Video Visit [facility] [address] [place] [address] Manju Rainey, DO [address] [place] [address] Obesity, morbid, BMI 50 or higher (HCC) ; Vitamin D deficiency; Essential hypertension; Abnormal craving; [...] - Inhaled Oxygen Concentration - - Weight 139.3 kg (307 lb 3.2 oz) 08/12/2020 2:20 PM CDT per pt Height 158.4 cm (5' 2.36 ) 08/12/2020 2:20 PM CD T Body Mass Index 55.54 08/12/2020 2:20 PM CDT documented in this encounter Progress Notes * Manju Rainey DO - 08/12/2020 3:05 PM CDT Images from the original note were not included. [facility] [address] [facility] [address] [facility] [address] Dept: [phone] Dept Telemedicine Note Today's visit was conducted virtually due to COVID-19 countermeasures. The patient has given verbalconsent to have today's visit conducted by this same means with treatment provided remotely. The patient verbally consents to the billing and collection practices of [facility]. Patient location: Home This encounter was performed using: audio and video Time spent direct and indirect care: : 34 minutes Date of encounter: 08/12/2020 Provider: Manju Rainey DO Patient: Deya Campbell CSN: [id number] Specialty: Bariatrics. Date of : 1995 Visit type: Medical weight loss follow up: Telemedicine (398) Audio and visual _x___ Audio only ___ Verbal consent from patient to treat and bill insurance obtained. Yes This 24 year old female patient was referred by self for Medical Weight loss follow up. Bariatric HPI she was seen in clinic last on 06/17/2020 by video visit. According to her reported weight today of307 lb she has gained 4 lb. She is still down 13.5 lb from her initial visit. Patient reports a lotof increased stress since I spoke with her last. Her son went back to school in person about a month ago and has had several acute illnesses since returning to school. Patient herself has had a few illnesses as well last of which was a GI bug with nausea vomiting and diarrhea. Spontaneously resolved. Patient with history of hypertension no recent readings. Encourage patient to get some blood pressure readings. Fatty liver: No abdominal pain. Patient has been struggling somewhat with her anxietyand some depressive symptoms due to situational issues at home. Patient reports car problems and having to save up money to try to get it fixed. This has caused increased stress in the family. Her son and herself being sick often on for the past month is also increased her stress. Patient did not like how she felt on BuSpar . States that she felt ???foggy?? . Patient stop the medication. She is also having issues with increased sweet cravings and carb cravings. We discussed possible use of Wellbutrin. We discussed risks and benefits. Patient with no history of seizures. She does have a history of hypertension. We would need to know what her blood pressures are running prior to deciding to use this medication. Patient will get blood pressure monitored for 3 days and send results to me in My chart. Patient with history of vitamin-D deficiency. Order in chart to have recheck. Patient does not live locally and would like this to be so sent to her. Her reflux symptoms are reported to be ???good?? IBS symptoms are stable as well. Activity: ADLs for the most part. Patient recently was able to get out her exercise bike and is riding it 2 times per week for about 1 hr. Will try to add some resistance work. Sleep: 7-8 hours. Barriers/problems: Stress, illness in family and personal illness past month. Nutrition: Patient is taking multivitamin daily. Breakfast: Protein shake or eggs. Lunch: Peanut butter. Dinner: Meat and vegetable sometimes starch. Fluids: Water and flavored water. Snacks: Trying not to snack. Co morbid conditions: Hypertension, fatty liver, adjustment disorder with anxiety and depressed mood, vitamin-D deficiency, dyslipidemia, reflux, IBS GOALS from last visit: 1: Less than 1900 calories with 1 or 2 protein meal replacements daily. Working toward goal. 2. 90+ g protein daily. Working toward goal. 3. 64+ oz fluid daily. Meeting goal. Patient is taking 30 grams of proteins supplements daily. Patient is taking 64+ oz of fluid per day. Doing 1 hr of exercise bike 2 times per week. Goal 150 min aerobic activity and 3 days resistance work weekly. The patient has had a weight gain of 4 lb from previous visit. She is still down a total of 13.5 lbfrom her initial visit.. Weight History: Initial Weight: 320.7 lb. BMI [...] Total Wt Loss in lb: 13.5 lb Obesity History Years at current weight? [...] you have an unusual work schedule? na [place] Sleepiness Scale total points: 9 Past Medical [...] Gatherings with Friends and Family: ??? Attends Alevism Services: ??? Active Member of Clubs or [...] Outpatient Medications Marked as Taking for the 08/12/20 encounter (Video Visit) with Kristal Rainey, DO [...] ??? vitamin D, ergocalciferol, (DRISDOL) 1.25 MG (66221 UT) capsule Take 1 capsule by mouth every 7days Reasons: Vitamin D Deficiency (Not in a hospital admission) Allergies Allergen Reactions ??? Levofloxacin Urticaria and Itching Chest pain, shortness of breath and pain and weakness in legs ??? Cephalexin Rash ??? Nifedipine Other Facial redness, palpitations ??? Labetalol Shortness of Breath ROS: Systemic: negative Psychological ROS: Increased symptoms with adjustment disorder with mixed anxiety and depressed mood. No self-harm thoughts. Ophthalmic ROS: negative ENT ROS: negative Hematological ROS: Vitamin-D deficiency due for recheck Endocrine ROS: Obesity class 3 with some overall improvement. Respiratory ROS; negative Cardiovascular ROS: Hypertension: Will check blood pressures and send results to me. GI ROS: Reflux stable. IBS stable. History of fatty liver. No abdominal pain reported. ROS: negative Musculoskeletal ROS: negative Neurological ROS: negative Dermatological ROS: negative. Objective: Vital Signs: Ht 5' 2.36 (1.584 m) Wt 307 lb 3.2 oz (139.3 kg) BMI 55.54 kg/m2 Weight: (!) 307 lb 3.2 oz (139.3 kg) (per pt ) Height: 5' 2.36 (158.4 cm) Body mass index is 55.54 kg/m??. Constitutional: Alert, awake and oriented without any reported discomfort. Eyes: Anicteric. Extraocular muscles were intact. Neck Exam: unable Respiratory : unable Cardiovascular: unable Abdomen: unable Skin: Normal color.,. Extremities: unable Neurological: A& O X 3. . Psychiatric: The patient's mood and affect appeared to be mildly dysthymic. Patient has spontaneousconversation answers questions appropriately. Patient appears motivated to get back on track with healthy lifestyle modification for weight reduction to a healthier BMI. Labs Recent Labs Component Name 04/12/19 1514 01/02/19 1236 AST 16 20 ALT 12 24 Some lab results will be in paper format so may be scanned in the EMR. Vitamin-D level order will be mailed to patient to have done near her home. Imaging studies No results found. Some Imaging studies results will be in paper format so may be scanned in the EMR. None to be reviewed today. Assessment and Plan Assessment: ICD-10-CM 1. Obesity, morbid, BMI 50 or higher E66.01 Increased efforts at healthy lifestyle modification with healthy nutrition, increased regular physical activity with both aerobic and resistance componentsand proper sleep discussed today. Goals: 1. Less than 1800 calories per day with 1 or 2 protein meal replacements daily. Encouraged tracking. Encouraged small plate model for portion control. Multivitamin daily. 2. 90+ g protein daily. 3. 64+ oz fluid daily. 4. Work toward goal of 150 min of aerobic activity and 3 days of resistance work weekly. 5. 7.5-9 hours sleep daily. 6. Mindful eating with snacking only if truly hungry. Choose from low-calorie lean protein and produce snacks less than or equal to 100 calories. 7. Encouraged relaxation jaqui 2. Vitamin D deficiency E55.9 Recheck vitamin-D level 3. Essential hypertension I10 Continue care with PCP. Encouraged patient to monitor blood pressure periodically. Patient will monitor blood pressure for 3 days and send results to me. 4. Abnormal craving R63.8 If blood pressure is controlled will consider use of Wellbutrin XL 150 mgp.o. daily for her abnormal cravings as well as treatment for adjustment disorder. 5. Irritable bowel syndrome with both constipation and diarrhea K58.2 Continue care with PCP. Symptoms currently stable. 6. NAFLD (nonalcoholic fatty liver disease) K76.0 Continue care with PCP. Weight reduction will improve fatty liver. 7. Adjustment disorder with mixed anxiety and depressed mood F43.23 Patient to schedule appointmentwith PCP. If blood pressure is controlled we may consider use of Wellbutrin XL 150 p.o. daily for abnormal cravings as well as adjustment disorder management. Encouraged patient to seek a counselor near her home. Consults and Test ordered or needs follow up: Continue care with PCP as directed. Follow-up with me in 1 month. Call or return sooner if any questions concerns or problems. Patient to send results of blood pressure to me in My Chart Follow up: Will see me in 1 month She verbalized understanding and is agreeable to this plan after shared decision making with patient. This encounter with the patient lasted 34 min, including chart prep, patient visit including [...] (HCC)- Primary Vitamin D deficiency Essential hypertension Abnormal craving Pica Irritable bowel syndrome with both constipation and diarrhea NAFLD (nonalcoholic fatty liver disease) Other chronic nonalcoholic liver disease Adjustment disorder with mixed anxiety and depressed mood documented in this encounter Care Teams Ocular Care Technologist Relationship Specialty Start Date End Date Jonelle Elam MD [address] [place] [address] PCP - General Family Medicine 10/24/18 Manju Rainey DO [address] [place] [address] Bariatrics 08/11/20 documented as of this encounter
--- OUTSIDE RECORDS SUMMARY | 2024-04-14 17:45 | XMS_ITS | Encounter Summary ---
Author Organization [facility] Address [address] [place] [address] Care Team Providers Care Application Services Manager Name Role Phone Jonelle Elam MD Primary Care Provider [phone] Manju Rainey DO Unavailable [phone] Encounter Details Date Type Department Care Team (Latest Contact Info) Description 10/27/2020 11:00 AM CDT Procedure visit [facility] - GI [address] [place] [address], [place] [address] Tejas Mcfarlane MD [address] [place] [address] [place] [address] NAFLD (nonalcoholic fatty liver disease) ; Liver lesion; Focal nodular hyperplasia of liver; Morbid obesity (HCC) Social History Tobacco Use Types Packs/Day Years Used Date Smoking Tobacco: Never Smokeless Tobacco: Never Alcohol Use Standard Drinks/Week Comments Not Currently 0 (1 standard drink = 0.6 oz pur e alcohol) Sex and Gender Information Value Date Recorded Sex Assigned at Not on file Gender Identity Not on file Sexual Orientation Not on file documented as of this encounter Procedure Notes * Gabriella Moon RN - 10/27/2020 12:23 PM CDT * Gabriella Moon RN - 10/27/2020 11:38 AM CDTAssociated Order(s): PROC FIBROSCAN Technical difficulties:An * Gabriella Moon RN - 10/27/2020 11:09 AM CDTPre-Procedure Diagnose(s): Liver lesion; Focal nodular hyperplasia of liver; NAFLD (nonalcoholic fatty liver disease); Morbid obesity (HCC) Diagnosis: LIVER LESION RN verified patient not , no implanted devices and NPO for prior 3 hours. Procedure explained and consent signed. Date of Exam: 10/27/2020 Liver Stiffness: (LSM, kPa) median: 63.1 IQR (interquartile range): 13.8 IQR/Median% (ideally < 30%): 22 CAP (controlled attenuation parameter): 400 Technical Difficulty: [...] based on the following published data: Selene SANCHEZ, Tomasz M, Venus M, et al. Accuracy of FibroScan controlled attenuation parameter and liver stiffness measurement in assessing steatosis and fibrosis in patients with nonalcoholic fatty liver disease. Gastroenterology 2019;156:5703-4369. Tammi MS, Rae R, Van Carlos Alberto [...] improved by also calculating the FIB4 score (Obdulioe et al. Hepatology Communications 2019;3:8880-5988) or NAFLD Fibrosis score (Johnston et al. Clinical Gastroenterology and Hepatology 2019;17:0841-9730. from routine clinical data. 3. Liver stiffness [...] change as additional supporting data becomes available. [email or web address] documented in this encounter Plan of Treatment [...] Procedure Name Priority Date/Time Associated Diagnosis Comments CA LIVER ELASTOGRAPHY Routine 10/27/2020 11:38 AM CDT Liver lesion Focal nodular hyperplasia of liver NAFLD (nonalcoholic fatty liver disease) Morbid obesity (HCC) documented in this encounter Results * PROC FIBROSCAN (10/27/2020 11:38 AM CDT) [...] of liver Morbid obesity (HCC) Morbid obesity documented in this encounter Care Teams Application Services Manager Relationship Specialty Start Date End Date Jonelle Elam MD [address] [place] [address] [place] [address] PCP - General Family Medicine 10/24/18 Manju Rainey DO [address] [place] [address] Bariatrics 08/11/20 documented as of this encounter
--- OUTSIDE RECORDS SUMMARY | 2024-04-14 17:45 | XMS_ITS | Encounter Summary ---
Author Organization [facility] Address [address] [facility] [place] [address] Care Team Providers Care Lead Carpenter Name Role Phone Jonelle Elam MD Primary Care Provider [phone] Reason for Visit * Evaluate & Treat (Routine) - Closed Specialty Diagnoses / Procedures Referred By Contac t Referred To Contact Maternal Medicine Diagnoses Obesity complicating , unspecified trimester (HCC) Liver disease, unspecified Fatty (change of) liver, not elsewhere classified Procedures OR FULL ROUT OBSTE CARE,VAGINAL Taurus Amos MD [address] [place] [address] [facility] [address] [place] [address] Referral ID Status Reason Start Date Expiration Date Visits Re quested Visits Authorized [id number] Closed 06/05/2019 12/02/2019 20 20 Encounter Details Date Type Department Care Team (Late st Contact Info) Description 07/05/2019 11:04 AM CDT - 07/05/2019 11:59 PM CDT Hospital Encounter [facility] Women's Health Maternal & Care [address] [id number] Luis Daniel Damico MD Buchanan, Christopher Q, MD [address] [place] [address] Discharge Disposition: Home or Self Care Social [...] Pressure - - Pulse - - Temperature 36.7 ??C (98.1 ??F) 07/05/2019 11:21 AM C DT Respiratory Rate - - Oxygen Saturation - - Inhaled Oxygen Concentration - - Weight - - Height - - Body Mass Index - - documented in this encounter Medications at Time [...] Associated Diagnosis Comments SONOGRAM - COMPLETE Routine 07/05/2019 12:25 PM CDT Maternal morbid obesity, antepartum (HCC) Chronic hypertension affecting (HCC) documented in this encounter Results * SONOGRAM - COMPLETE (07/05/2019 12:25 PM CDT) Anatomical Region Laterality Modality Other 07/05/2019 12:2 5 PM CDT Narrative 07/05/2019 12:20 PM CDT ? [facility]aternal [facility] ? Maternal & Care Center ?PHONE: ??FAX: Pat. Name: ?MARY CARMEN CROSS Pat. No: ?[id number] Study Date: ?? 07/05/2019 ??12:25pm , Age: ? 1995, 23 Pregnancies: ?? 3, Para 2 Height: ? 61 in Weight: ? 288 lb LMP: ?Unknown GA by Base: ?? 22w6d ?? LUISA: 11/02/2019 GA Selected: ??22w6d (From [facility]) LUISA: ?11/02/2019 Referring MD: Ede Maldonado MD Installer [employer] Flooring: ??Jackeline Baker RDMS, ALBA CPT4: ? [id number],[id number] BMI: ?54.41 Hist/Ind: ? Complete Anatomy Screen ?Maternal Liver Lesion ?Class IV Obesity ?CHTN ?PTD @36wks x2 Cervix: ??Length: 3.5 cm ??Approach: transvaginal ??Funneling: not present Heart Rate: 165 bpm EVAL, PLACENTA Presentation: cephalic Placenta: posterior Previa: no previa seen Heart Rate: 165 bpm Amniotic Fluid Volume: normal Anatomy!Normal!Abnormal!Suboptimal!Prev. Seen!Comments Cranium ?! ?! ?! ?! ? x ?! Mdl (CSP/Thal! ?! ?! ?! ? x ?! Ventricles ?? ! ?! ?! ?! ? x ?! Choroid Plexu! ?! ?! ?! ? x ?! Cerebellum ?? ! ?! ?! ?! ? x ?! Cisterna M. ??! ?! ?! ?! ? x ?! Nuchal Fold ??! ?! ?! ?! ? x ?! Profile ?! ?? x ??! ?! ?! ?! Nasal Bone ?? ! ?? x ??! ?! ?! ?! Lip ?! ?! ?! ?! ? x ?! Spine ?! ?! ?! ?! ? x ?! Lungs ?! ?! ?! ?! ? x ?! 4 Chamber Hea! ?? x ??! ?! ?! ? x ?! LVOT ? ! ?? x ??! ?! ?! ?! RVOT ? ! ?? x ??! ?! ?! ?! 3 Vessel View! ?? x ??! ?! ?! ?! Cross-over ?? ! ?? x ??! ?! ?! ?! Ductal Arch ??! ?? x ??! ?! ?! ?! Aortic Arch ??! ?! ?! ?! [...] ?! ?! ? x ?! Lower Extreme! ?? x ??! ?! ?! ? x ?! Feet ? ! ?? x ??! ?! ?! ?! External Krista! ?! ?! ?! ? x ?! CLINICAL SUMMARY Study Number: 2 ?? A single fetus is seen in cephalic presentation. ??The amniotic fluid volume is within normal limits. ?? IMPRESSION: Single, live, intrauterine at 22w6d Amniotic fluid: within normal limits ?? Reassuring transvaginal cervical length ?? No major malformations seen today within the limits of ultrasound RECCOMMEND: Ultrasound in 6 weeks to assess growth ?? Discontinue cervical length screening Please be advised that these recommendations are being made in the best interest of our patients during the COVID 19 Pandemic. Thanks for allowing us the opportunity to care for your patient. ?? Sam Gallardo MD <Electronic Signature> ??07/05/2019 12:20pm Ordering Provider Unlisted MD CORTÉS ORDERA BLES documented in this encounter Visit Diagnoses Diagnosis Short interval between pregnancies affecting , antepartum (HCC) Maternal morbid obesity, antepartum (HCC) Obesity complicating , childbirth, or the puerperium, antepartum condition or complication Frequent headaches Chronic hypertension affecting (HCC) History of delivery Liver lesion Other specified disorders of liver Supervision of high-risk of young multigravida (HCC) Supervision of high-risk of young multigravida History of delivery, currently in second trimester (HCC) Unspecified pre-existing hypertension complicating , second trimester (HCC) 22 weeks gestation of (HCC) state, incidental documented in this encounter Care Teams Lead Carpenter Relationship Specialty Start Date End Date Jonelle Elam MD [address] [place] [address] PCP - General Family Medicine 10/24/18 documented as of this encounter
--- OUTSIDE RECORDS SUMMARY | 2024-04-14 17:45 | XMS_ITS | Encounter Summary ---
Author Organization [facility] Address [address] [place] [address] Care Team Providers Care Appointment Scheduler Name Role Phone Jonelle Elam MD Primary Care Provider [phone] Manju Rainey DO Unavailable [phone] Encounter Details Date Type Department Care Team (Late st Contact Info) Description 01/28/2021 Orders Only [facility] - [address], [place] [address] Gabriella Moon, RN Liver lesion Social History [...] as of this encounter Visit Diagnoses Diagnosis Liver lesion- Primary Other specified disorders of liver documented in this encounter Care Teams Appointment Scheduler Relationship Specialty Start Date End Date Jonelle Elam MD [address] [place] [address] PCP - General Family Medicine 10/24/18 Manju Rainey DO [address] [place] [address] Bariatrics 08/11/20 documented as of this encounter
--- OUTSIDE RECORDS SUMMARY | 2024-04-14 17:45 | XMS_ITS | Encounter Summary ---
Author Organization [facility] Address [address] [place] [address] Care Team Providers Care Maintenance Machinist Name Role Phone Jonelle Elam MD Primary Care Provider [phone] Manju Rainey DO Unavailable [phone] Encounter Details Date Type Department Care Team (Late st Contact Info) Description 01/19/2021 10:00 AM CDT Office Visit [facility] Weight Management Services [address] [place] [phone] Morbid obesity (HCC) (Primary Dx) Social [...] - Inhaled Oxygen Concentration - - Weight 142.2 kg (313 lb 6.4 oz) 01/19/2021 9:53 AM CDT Height 157.5 cm (5' 2 ) 01/19/2021 9:53 AM CDT Body Mass Index 57.32 01/19/2021 9:53 AM CDT documented in this encounter Progress Notes * Yasmin Sanches, RD/LD - 01/19/2021 10:00 AM CDT MEDICAL NUTRITION THERAPY Weight Management Services Bariatric Surgery Follow-Up Session Number: Session III Session Date: 01/19/21 Patient: Deya Campbell Date of : 1995 (25 year old) PCP Physician: Jonelle Elam MD Referring Physician: Maryellen NUTRITION MILTON Primary Diagnoses/Co-morbidities: Morbid Obesity Secondary Diagnoses/Co-morbidities: Hypertension (anx, diverticulitis, NAFLD, SA, postpart. dep) Have you seen a dietitian?: Yes [...] the meals?: Self Exercise Type of exercise?: Resistance;Aerobic Machine (ADLs ) How many times do you exercise each week?: 1 How many minutes of exercise each time?: 30 Minutes Weight History Height: 5' 2 (157.5 cm) Initial Program Weight: MMWL- 320 lb 11.2 oz. BMI 57.98? Current Weight: (!) 313 lb 6.4 oz (142.2 kg) Weight Method (Utilize Scales): Standing BMI (Calculated): 57.31 Has your weight changed since last visit?: Gain # (2.2#) Total Program Weight Loss: none Pt seen for nutrition f/u. Pt is planning VSG. Pt's weight is up 2.2# since last visit, up 0.4# since beginning program. Pt with c/o swelling. Pt reports has been busy with work and school so has been sitting often. Pt also reports is able to get around and do housework on breaks. Pt reports drinking 2 shakes a day as meals and uses some food with shakes. Pt reports does not feel full from shakesalone. Pt reports struggling with some social gatherings and reports has some trigger foods that will make pt spiral. Pt reports just drank a shake at a birthday green party instead of pizza because knows that pizza is a trigger food. Pt reports snacking a few times a day. Pt reports exercising 1 day/week d/t busy work schedule. Reviewed food recall. 24 Hour Food Recall Breakfast - Fairlife shake, coffee, frittata Lunch - Salad, shake Dinner - turkey, cottage cheese, green beans Snacks - pork rinds, sunflower seeds, fruit cup Beverages - 64+ oz water, propel, hot tea NUTRITION DIAGNOSIS Diagnosis: Overweight/obesity;Disordered eating pattern;Self-Monitoring deficit Related to: not ready for diet/lifestyle change As evidenced by: BMI 57.32, wt gain, pt interview. NUTRITION INTERVENTION Interventions: Motivational interviewing;Goal setting;Collaboration with other providers Reviewed healthy balance diet for weight loss using protein shakes. Reviewed the saldana bariatric diet principles. Further instruction provided for phases of bariatric diet. Reinforced behavior changes for bariatric diet such as no straws and smaller plate. Explained importance of continued bariatric vitamin/mineral and protein supplementation. Pt v/u. Pt will continue to drink 2 shakes a day and encouraged pt work towards using them as meals alone and not with food. Reviewed the plate model and portions. Encouraged pt stay mindful of snacking and to limit. Reviewed mindfulness with pt. Encouraged 64+ oz fluids daily. Encouraged pt increase exercise as able. Pt v/u and will f/u in one month. External Barriers to Change: some triggers, food with shakes NUTRITION MONITORING/EVALUATION Nutrient Needs: Goals: Nutrition Goal #1: 2 shakes a day- as meals Nutrition Goal #2: Limit snacking to <100 kcals daily Nutrition Goal #3: Keep portions within the plate model Monitor/Evaluation: Monitoring and evaluation: Fluid/beverage intake;Food intake;Beliefs and attitudes;Food and nutrition knowledge/skills;Adherence;Physical activity;Weight change;Body Mass index RD contact information provided. Pt encouraged to call RD with questions and/or concerns. Evaluation of Overall Compliance Potential: Comprehension: Often Demonstrated Receptivity: Often Demonstrated Adherence: Often Demonstrated Session Information Session Date: 01/19/21 Session beginning time: 1006 Session ending time: 102 Session total minutes: 22 Minutes Teaching Method: Explanation;Demonstration;Teach Back Next visit: (1 month f/u) Total MNT minutes this calendar year: 75/240 Nutritional Review ?? Cleared, additional RD visits [...] obesity documented in this encounter Care Teams Maintenance Machinist Relationship Specialty Start Date End Date Jonelle Elam MD [address] [place] [address] [place] [phone] PCP - General Family Medicine 10/24/18 Manju Rainey DO [address] [place] [address] Bariatrics 08/11/20 documented as of this encounter
--- OUTSIDE RECORDS SUMMARY | 2024-04-14 17:45 | XMS_ITS | Encounter Summary ---
Author Organization [facility] Address [address] [place] [address] Care Team Providers Care Polysomnograph Tech Name Role Phone Jonelle Elam MD Primary Care Provider [phone] Manju Rainey DO Unavailable [phone] Reason for Visit * Reason Onset Date Comments Results 01/28/2021 Encounter Details Date Type Department Care Team (Late st Contact Info) Description 01/28/2021 Telephone [facility] - [address] [phone] Gabriella Moon RN Results Social History Tobacco Use Types [...] PM CDT documented as of this encounter Miscellaneous Notes * Telephone Encounter - Gabriella Moon RN - 01/28/2021 11:11 AM CDT Called patient to relay message: MRI was reveiwed in tumor conference. ??There a new 1.5cm liver lesion, likely benign. ??The recommendation was to repeat an MRI at [facility] in 6 months. Future appointment MRI- 07/05/21- 1130 NPO 8 hours Patient has questions about possibly liver biopsy ahead of her pending bariatric surgery. Sent questions to MD. documented in this encounter Plan of Treatment [...] on filedocumented in this encounter Care Teams Polysomnograph Tech Relationship Specialty Start Date End Date Jonelle Elam MD [address] [place] [address] [place] [phone] PCP - General Family Medicine 10/24/18 Manju Rainey DO [address] [place] [address] Bariatrics 08/11/20 documented as of this encounter
--- OUTSIDE RECORDS SUMMARY | 2024-04-14 17:45 | XMS_ITS | Encounter Summary ---
Author Organization [facility] Address [address] [facility] [address] Care Team Providers Care Potter Or Ceramic Artist Name Role Phone Jonelle Elam MD Primary Care Provider Manju Rainey DO Unavailable Reason for Visit * Reason Comments Refill Request Encounter Details Date Type Department Care Team ([facility] Contact Info) Description 10/19/2020 Refill [facility] [address] [place] [phone] Manju Rainey, [address] [place] [address] Refill Request Social History Tobacco Use Types [...] of this encounter Visit Diagnoses Diagnosis Abnormal craving Pica documented in this encounter Care Teams Potter Or Ceramic Artist Relationship Specialty Start Date End Date Jonelle Elam MD NPI: [id number] [place] [address] [place] [phone] PCP - General Family Medicine 10/24/18 Manju Rainey DO [address] [place] [address] Bariatrics 08/11/20 documented as of this encounter
--- OUTSIDE RECORDS SUMMARY | 2024-04-14 17:45 | XMS_ITS | Encounter Summary ---
Author Organization [facility] Address [address] [place] [address] Care Team Providers Care Bar Manager Name Role Phone Jonelle Elam MD Primary Care Provider Manju Rainey DO Unavailable Reason for Visit * Reason Onset Date Comments Appointment 08/12/2020 Encounter Details Date Type Department Care Team (Late st Contact Info) Description 08/12/[address] [facility] [address] [place] [phone] Manju Rainey, [address] [place], [place] [address] Appointment Social History Tobacco Use Types Packs/Day [...] * Telephone Encounter - Kandy Yancey - 08/12/2020 3:38 PM CDT LVM asking pt to call office to schedule MMWL fol up 1 month from 08/12/20 documented in this encounter Plan of Treatment Not on file documented as of this encounter Visit Diagnoses Not on filedocumented in this encounter Care Teams Bar Manager Relationship Specialty Start Date End Date Jonelle Elma MD [address] [place] [phone] PCP - General Family Medicine 10/24/18 Manju Rainey DO [address] [place] [address] Bariatrics 08/11/20 documented as of this encounter
--- OUTSIDE RECORDS SUMMARY | 2024-04-14 17:46 | XMS_ITS | Encounter Summary ---
Author Organization [facility] Address [address] [place] [address] Care Team Providers Care Beef Grinder Name Role Phone Jonelle Elam MD Primary Care Provider [phone] Encounter Details Date Type Department Care Team (Late st Contact Info) Description 01/02/2019 10:20 AM CDT Office Visit [facility] [address] [facility], [place] [phone] Edward Alvarado MD [address] [place] [address] FIRST LEVEL DIV OF RADIOLOGY [place], [place] [phone] Liver mass, right lobe (Primary Dx) Social History Tobacco Use Types Packs/Day Years Used Date Smoking Tobacco: Never Smokeless Tobacco: Never Sex and Gender Information Value Date Recorded Sex Assigned at Not on file Gender Identity Not on file Sexual Orientation Not on file documented as of this encounter H&P Notes * Ad Lopez MD - 01/02/2019 10:46 AM CDT Images from the original note were not included. Vascular & Interventional Radiology New Patient Consultation Patient: Deya Campbell Date of : 1995 Pipe Fitter Marine: None Transplant surgeon: None PCP: Dr. Jonelle Elam Reason for consult: Referral for liver masses HPI: Deya Campbell is a 23 year old female with two bilateral hepatic lesions incidentally discovered on CT in 2014, which was performed for severe RLQ abdominal pain. The patient recently had acutediverticulitis and had an MRI in November of 2018 which redemonstrated these hepatic lesions, which have grown since 2015. She was subsequently referred to us for evaluation. The patient had a colonoscopy approximately one month prior to today's visit in December 2018 which was unremarkable aside from known diverticulosis; she also reports that since this colonoscopy shehas been intermittently experiencing painful abdominal spasms, last experienced 12/18/2018. She endorses a general feeling of abdominal discomfort which has also been present since the colonoscopy. She otherwise feels well; she has recently cut out fast food from her diet and begun regular exercise with some weight loss. No past medical history on file. No past surgical history on file. Family history notable for CAD on father's side of family. Per patient, her father had his first MIat around the age of 40. Social History Socioeconomic History ??? Marital status: Single Spouse name: Not on file ??? Number of children: Not on file ??? Years of education: Not on file ??? Highest education level: Not on file Occupational History ??? Not on file Social Needs ??? Financial resource strain: Not on file ??? Food insecurity: Worry: Not on file Inability: Not on file ??? Transportation needs: Medical: Not on file Non-medical: Not on file Tobacco Use ??? Smoking status: Not on file Substance and Sexual Activity ??? Alcohol use: Not on file ??? Drug use: Not on file ??? Sexual activity: Not on file Lifestyle ??? Physical activity: Days per week: Not on file Minutes per session: Not on file ??? Stress: Not on file Relationships ??? Social connections: Talks on phone: Not on file Gets together: Not on file Attends latter day service: Not on file Active member of club or organization: Not on file Attends meetings of clubs or organizations: Not on file Relationship status: Not on file ??? Intimate partner violence: Fear of current or ex partner: Not on file Emotionally abused: Not on file Physically abused: Not on file Forced sexual activity: Not on file Other Topics Concern ??? Not on file Social History Narrative ??? Not on file Current Outpatient Medications Medication Sig ??? cyclobenzaprine [...] PO Q 6 H PRF NAUSEA/VOMITING ??? raNITIdine (ZANTAC) 150 MG tablet ranitidine 150 mg tablet No current facility-administered medications for this visit. Not on File Pertinent aspects of the patient's past medical, surgical, family, and social history are mentionedin the HPI above. Remaining PSFH was also reviewed and is not pertinent to the presenting problem. ROS: A comprehensive ROS was performed. Pertinent positives and negatives are listed below. All other systems reviewed were negative. Constitutional: Positive for night sweats; the patient reports 3 episodes in the past 2 months. Negative for fevers, chills or unintentional weight changes ENT: negative for sore throat, dysphagia, rhinorrhea, tinnitus Skin: negative for rashes or easy bruising and bleeding Respiratory: posnegative for cough, hemoptysis, wheezing, or shortness of breath Cardiovascular: Positive for chest pain. Negative for arrhythmias Gastrointestinal: Positive for abdominal pain and constipation. Negative for nausea/vomiting, hematemesis, melena or diarrhea Genitourinary: negative for dysuria, nocturia, or incontinence Musculoskeletal: negative for arthralgias or back pain Neurological: negative for headaches, head injury, seizures, numbness/tingling, or dizziness Psychiatric: Positive for anxiety. Negative for depression PHYSICAL EXAM: There were no vitals taken for this visit. General: well nourished, NAD Eyes: no scleral icterus, no lid lag ENT: atraumatic, MMM Neck: supple, trachea midline Lungs: normal respiratory effort, CTAB, no accessory muscle use Cardiovascular: RRR, no murmurs Abdomen: soft, nontender, nondistended Extremities: warm, no pitting edema Psychiatric: AOx3, appropriate mood and affect IMAGING: All relevant imaging studies were personally reviewed by myself and the IR attending, Dr. Alvarado. Outside MRIs, including one dated 11/23/2018, is not yet available at this time. The impression fromthe MRI dated 11/23/2018 is notable for a 4.1cm hepatic dome lesion and a 3.2cm right hepatic lobe lesion, both T1 and T2 hyperintense with persistent contrast enhancement. CT abdomen and pelvis dated 12/18/2018: LAB RESULTS: No results for input(s): WBC, HGB, HCT, PLT, PLTCOUNT, PLATELET in the last 31279 hours. No results for input(s): INR in the last 79028 hours. No results for input(s): NA, K, GLUCOSE, CREATININE, EGFR in the last 13469 hours. Recent Labs Component Name 01/02/19 1236 ALB 4.5 TBILI 0.8 ALT 24 AST 20 ALKPHOS 71 AFP: N/A Computed MELD-Na score unavailable. Necessary lab results were not found in the last year. Computed MELD score unavailable. Necessary lab results were not found in the last year. Transplant candidate: N/A ECO Child-Zeng: 5A ASSESSMENT: 23 year old female with incidentally discovered bilateral hepatic masses. The patient has been referred for evaluation of these masses and consultation for possible treatment. Risks, benefits, and alternatives of potential treatment options were discussed with the patient indetail. PLAN: #Hepatic masses: Based on imaging characteristics from the outside reports, the hepatic lesions arelikely benign; the differential includes focal nodular hyperplasia vs. hepatic adenomas. Evaluationof the outside images would be ideal for making this diagnosis. If the outside studies are not available, a repeat MRI of the abdomen with Eovist would help characterize these lesions. 1. Will discuss at tumor board 2. Follow up on outside imaging; if not available, will perform abdominal MRI with Eovist to characterize lesions #Abdominal pain: Abdominal pain/spasms following colonoscopy are unusual, and there is no clear etiology. Given the provided timeframe of her symptoms, RLQ location and the provided imaging characteristics of the hepatic lesions, the abdominal pain is not likely to be secondary to the patient's hepatic lesions. 1. Continue to monitor The patient was explained that this case will be discussed at the Interventional Radiology Plan of Care conference and that a consensus decision on the treatment plan most suited for the patient willbe taken at the conference. The patient will be notified by our team following the conference and the above plan will be updated. The patient was also informed that any one of the [facility] Interventional R adiology group doctors (Dr. Precious Pryor, Dr. Malachi Schneider, Dr. Tony Nguyen, Dr. Dunbar, Dr. Viktor Bermudez, Dr. Faina Ojeda, Dr. Emilie Thorne, or Dr. Edward Alvarado) will be involved in the management and treatment of the patient's care in the future. Please let us know if you have any questions regarding our recommendations. Thank you for allowing us to participate in the care of this patient. Associated attestation - Edward Alvarado MD - 01/27/2019 11:03 PM CDT Faculty addendum Date of Service: 01/02/2019 I have seen and examined the patient in IR Clinic with the resident physician. I personally reviewed the history, allergies, medications, labs and images. I agree with physician's evaluations, assessment and treatment plan. Appropriate additions and editions were included. In summary, this is a 23 year old female with multiple hepatic masses that were incidentally discovered in [address] obtained for RLQ abdominal pain (acute diverticulitis found). These liver lesions were reevaluated on 12/18/18 CT with interval growth of lesions. She denies OCP/hormone use, stating her Mirena was removed in 2014 given concerns for hormone-sensitive hepatic masses, though the timeline of growth & mitigation of hormone stimulus are difficult to delineate. No history of malignancy, and she has begin exercise/weight loss regimen with removal of fast food from her diet. Imaging review shows two enhancing right hepatic lobe masses which are resemblant of FNH vs adenoma, though indeterminate. Counseled that the lesions are likely benign, but that her case would be discussed at IR plan of care conference and Liver Tumor board. Will attempt to obtain outside MR for board review, but if theyremain nondiagnostic, repeat MRI with Eovist may be needed to help diagnose. Questions were answered to patient's satisfaction. Case discussed at IR plan of care conference on 01/05/19 and Liver Tumor Board on 01/09/19. Lesions remain indeterminate on MRI imaging review (Multihance used), and consensus agrees with recommendations for repeat abdominal MRI imaging using Eovist contrast. Please see Dr. Lopez's note for more information. Please let me know if you have any questions regarding my recommendation(s). Thank you for allowing me to participate in the care of this patient. Edward Alvarado M.D. Twisting Machine Operator Vascular & Interventional Radiology [facility] documented in this encounter Plan of Treatment Not on file documented as of this encounter Visit Diagnoses Diagnosis Liver mass, right lobe- Primary Unspecified disorder of liver documented in this encounter Care Teams Beef Grinder Relationship Specialty Start Date End Date Jonelle Elam MD [address] [place] [address] [place] [phone] PCP - General Family Medicine 10/24/18 documented as of this encounter
--- OUTSIDE RECORDS SUMMARY | 2024-04-14 17:46 | XMS_ITS | Encounter Summary ---
Author Organization [employer] Care Team Providers Care College Intern Name Role Phone Jonelle Elam MD Primary Care Provider + Encounter Details Date Type Department Care Team (Latest Contact Info) Description 10/17/2020 Travel Social History Tobacco Use Types Packs/Day Years Used Date Smoking Tobacco: Never Smokeless Tobacco: Never Alcohol Use Standard Drinks/Week Comments No 0 (1 standard drink = 0.6 oz pur e alcohol) Comments No Sex and Gender Information Value Date Recorded Sex Assigned at Not on file Legal Sex Female 10:30 PM HORSEBACK RIDING INSTRUCTOR Gender Identity Not on file Sexual Orientation Not on file COVID-19 Exposure Response Date Recorded In the last month, have you been in contact with someone who was confirmed or suspected to have Coronavirus / COVID-19? No / Unsure 10/17/2020 9:11 AM CDT documented as of this encounter Plan of Treatment Not on file documented as of this encounter Visit Diagnoses Not on filedocumented in this encounter Care Teams College Intern Relationship Specialty Start Date End Date Jonelle Elam MD [address] [place] [phone] PCP - General Family Medicine 02/22/15 documented as of this encounter
--- OUTSIDE RECORDS SUMMARY | 2024-04-14 17:46 | XMS_ITS | Encounter Summary ---
Author Organization [facility] Care Team Providers Care Marketing Trainee Name Role Phone Jonelle Elam MD Primary Care Provider + Encounter Details Date Type Department Care Team (Latest Contact Info) Description 01/26/2020 Travel Social History Tobacco Use Types Packs/Day Years Used Date Smoking Tobacco: Never Smokeless Tobacco: Never Alcohol Use Standard Drinks/Week Comments No 0 (1 standard drink = 0.6 oz pur e alcohol) Comments No Sex and Gender Information Value Date Recorded Sex Assigned at Not on file Legal Sex Female 10:30 PM WINDOW CASER Gender Identity Not on file Sexual Orientation Not on file COVID-19 Exposure Response Date Recorded In the last month, have you been in contact with someone who was confirmed or suspected to have Coronavirus / COVID-19? No / Unsure 01/26/2020 8:19 PM CDT documented as of this encounter Plan of Treatment Not on file documented as of this encounter Visit Diagnoses Not on filedocumented in this encounter Care Teams Marketing Trainee Relationship Specialty Start Date End Date Jonelle Elam MD [address] [place] [id number] PCP - General Family Medicine 02/22/15 documented as of this encounter
--- OUTSIDE RECORDS SUMMARY | 2024-04-14 17:46 | XMS_ITS | Encounter Summary ---
Author Organization [facility] Address [address] [place] [address] Phone Care Team Providers Care Negotiator Sales Name Role Phone Jonelle Elam MD Primary Care Provider + Reason for Visit * Reason Comments High Blood Pressure Encounter Details Date Type Department Care Team (Late st Contact Info) Description 06/29/2021 11:57 AM CDT - 06/29/2021 2:52 PM CDT Emergency [facility] Emergency [address] [place] [address] Amanda Barger APRN, LOADING SUPERVISOR [address] [place] [address] Migraine headache Discharge Disposition: Discharged to home or Selfcare Social History Tobacco Use Types Packs/Day Years Used Date Smoking Tobacco: Never Smokeless Tobacco: Never Alcohol Use Standard Drinks/Week Comments No 0 (1 standard drink = 0.6 oz pur e alcohol) Comments No Sex and Gender Information Value Date Recorded Sex Assigned at Not on file Legal Sex Female 10:30 PM [employer] Gender Identity Not on file Sexual Orientation Not on file COVID-19 Exposure Response Date Recorded In the last 10 days, have yo u been in contact with someone who was confirmed or suspected to have Coronavirus/COVID-19? No / Unsure 06/29/2021 11:53 AM CDT documented as of this encounter Last Filed Vital Signs Vital Sign Reading Time Taken Comments Blood Pressure 137/87 06/29/2021 2:48 PM CDT Pulse 88 06/29/2021 11:52 AM CDT Temperature 36.3 ??C (97.4 ??F) 06/29/2021 11:52 AM C DT Respiratory Rate 16 06/29/2021 11:52 AM CDT Oxygen Saturation 100% 06/29/2021 11:52 AM CDT Inhaled Oxygen Concentration - - Weight 152.4 kg (336 lb) 06/29/2021 11:52 AM CDT Height 157.5 cm (5' 2 ) 06/29/2021 11:52 AM CDT Body Mass Index 61.46 06/29/2021 11:52 AM CDT documented in this encounter Discharge Instructions * Discharge Instructions* Amanda Barger APRN, CNP - 06/29/2021 2:32 PM CDT Please follow up with PCP regarding hypertension. You may also benefit from following up with neurology for continuous migraine headaches. * Attachments The following attachments cannot be sent through Care Everywhere. * Migraine Headache Bold-sv-Dynh (Mosotho) * Hypertension Adult Nwlp-sl-Geak (Mosotho) documented in this encounter Medications at Time of Discharge famotidine (PEPCID) 20 MG Tablet Take 1 Tab by mouth 2 times daily. 90 Tab 3 03/12/2019 ondansetron (ZOFRAN-ODT) 4 MG TABLET DISPERSIBLE Take 1 Tab by mouth every 8 hours as needed for Nausea - 1st line. 15 Tab 05/04/2020 polyethylene glycol (GLYCOLAX, MIRALAX) Pack Take 1 Packet by mouth daily. Dissolve in 4-8 oz of liquid. 90 Packet 3 10/12/2018 raNITIdine (ZANTAC) 150 MG Tablet Take 1 Tab by mouth 2 times daily. 180 Tab 1 01/07/2019 triamcinolone (ARISTOCORT) 0.5 % Cream Apply 1 Applicator 2 times daily. Application Site: left arm 30 g 12/04/2020 documented as of this encounter ED Notes * Yazmin Campbell RN - 06/29/2021 2:38 PM CDT Patient discharged to home in care of mother. * Yazmin Campbell RN - 06/29/2021 1:43 PM CDT Pt medicated per provider orders. Pt educated on intended effects and side effects of medication and verbalized understanding. Pt able to provide teach- back of education. * Amanda Barger APRN, LOADING SUPERVISOR - 06/29/2021 1:31 PM CDT Chief Complaint Patient presents with ??? High Blood Pressure Deya Campbell is a 25 y.o. female who presents to the ED c/o hypertension. Patient states that shehas a history of hypertension, and takes Losartan- Hydrochlorothiazide daily. Reports BP reading of 180/130 today. States that she noticed a constant headache. Reports that the headache was moderatelysevere. She denies dizziness, blurry vision, and numbness. Reports nausea with emesis. Reports sound and light sensitivity. She has a history of migraine headaches, and is prescribed Topamax, which she took this morning. She denies abdominal pain, chest pain, and shortness of breath. BP is currently 155/84. Past Medical History Positives No date: Diverticulitis No date: Hypertension No date: Liver disease No current facility-administered medications for this encounter. Current Outpatient Medications Medication Sig Dispense Refill ??? famotidine (PEPCID) 20 MG Tablet Take 1 Tab by mouth 2 times daily. 90 Tab 3 ??? ondansetron (ZOFRAN-ODT) 4 MG TABLET DISPERSIBLE Take 1 Tab by mouth every 8 hours as needed for Nausea - 1st line. 15 Tab 0 ??? polyethylene glycol (GLYCOLAX, MIRALAX) Pack Take 1 Packet by mouth daily. Dissolve in 4-8 oz of liquid. 90 Packet 3 ??? raNITIdine (ZANTAC) 150 MG Tablet Take 1 Tab by mouth 2 times daily. 180 Tab 1 ??? triamcinolone (ARISTOCORT) 0.5 % Cream Apply 1 Applicator 2 times daily. Application Site: leftarm 30 g 0 Allergies Allergen Reactions ??? Labetalol Hcl Other (see Comments) Shortness of breath, chest jpain ??? Levaquin [Levofloxacin] Hives and Other (see Comments) Chest pain, shortness of breath and pain and weakness in legs ??? Keflex [Cephalexin] Rash Past Medical History Positives Diagnosis Date ??? Diverticulitis ??? Hypertension ??? Liver disease Past Surgical History: Procedure Laterality Date ??? CATARACT REMOVAL WITH IMPLANT Left 2017 ??? COLONOSCOPY Left 10/31/2018 Procedure: COLONOSCOPY, NORMAL COLON EXAM, HEMORRHOIDS; Surgeon: Charles Amezcua MD; Location: [facility]; Service: Gastroenterology ??? MYRINGOTOMY ??? TONSILLECTOMY Social History Socioeconomic History ??? Marital status: [...] Substance and Sexual Activity ??? Alcohol use: No ??? Drug use: No ??? Sexual activity: Not on file Other Topics Concern ??? Not on file Social History Narrative ??? Not on file BP (!) 155/102 Pulse 88 Temp 97.4 ??F (36.3 ??C) (Tympanic) Resp 16 Ht 5' 2 (1.575 m) Wt336 lb (152.4 kg) LMP (LMP Unknown) SpO2 100% BMI 61.46 kg/m?? Review of Systems Constitutional: Negative for chills and fever. HENT: Negative for congestion, ear pain, rhinorrhea and sore throat. Eyes: Negative for discharge. Respiratory: Positive for chest tightness. Negative for cough, shortness of breath and wheezing. Cardiovascular: Negative for chest pain and palpitations. Gastrointestinal: Positive for nausea and vomiting. Negative for abdominal pain, blood in stool anddiarrhea. Genitourinary: Negative for difficulty urinating and menstrual problem. Musculoskeletal: Negative for arthralgias and myalgias. Skin: Negative for rash and wound. Neurological: Positive for headaches. Negative for dizziness, syncope, weakness, light-headedness and numbness. Psychiatric/Behavioral: The patient is nervous/anxious. All other systems reviewed and are negative. Physical Exam Vitals and nursing note reviewed. Constitutional: General: She is not in acute distress. Appearance: She is well-developed. She is obese. She is not diaphoretic. HENT: Head: Normocephalic and atraumatic. Right Ear: External ear normal. Left Ear: External ear normal. Eyes: Conjunctiva/sclera: Conjunctivae normal. Pupils: Pupils are equal, round, and reactive to light. Neck: Trachea: No tracheal deviation. Cardiovascular: Rate and Rhythm: Normal rate and regular rhythm. Heart sounds: Normal heart sounds. No murmur heard. Pulmonary: Effort: Pulmonary effort is normal. No respiratory distress. Breath sounds: Normal breath sounds. No wheezing or rales. Abdominal: General: Bowel sounds are normal. There is no distension. Palpations: Abdomen is soft. Tenderness: There is no abdominal tenderness. There is no guarding or rebound. Musculoskeletal: General: Normal range of motion. Cervical back: Normal range of motion. Skin: General: Skin is warm and dry. Neurological: Mental Status: She is alert and oriented to person, place, and time. Cranial Nerves: No cranial nerve deficit. Procedures Imaging Results None Labs Reviewed CMP (COMPREHENSIVE METABOLIC PANEL) - Abnormal; Notable for the following components: Result Value CO2, VENOUS 20 (*) GLUCOSE 115 (*) CREATININE, BLOOD 0.47 (*) BUN/CREATININE RATIO 23 (*) All other components within normal limits CBC WITH AUTO DIFFERENTIAL - Abnormal; Notable for the following components: NEUTROPHILS 76.3 (*) All other components within normal limits COMPLETE BLOOD COUNT (CBC) WITH DIFF Narrative: The following orders were created for panel order CBC with Diff [id number]. Procedure Abnormality Status --------- ------ CBC with Auto Differential[[id number]] Abnormal Final result Please view results for these tests on the individual orders. Labs Reviewed CMP (COMPREHENSIVE METABOLIC PANEL) - Abnormal; Notable for the following components: Result Value CO2, VENOUS 20 (*) GLUCOSE 115 (*) CREATININE, BLOOD 0.47 (*) BUN/CREATININE RATIO 23 (*) All other components within normal limits CBC WITH AUTO DIFFERENTIAL - Abnormal; Notable for the following components: NEUTROPHILS 76.3 (*) All other components within normal limits COMPLETE BLOOD COUNT (CBC) WITH DIFF Narrative: The following orders were created for panel order CBC with Diff [id number]. Procedure Abnormality Status --------- ------ CBC with Auto Differential[[id number]] Abnormal Final result Please view results for these tests on the individual orders. CBC with Diff [id number] Final Result Comprehensive Metabolic Panel (Cmp) [id number] Final Result MDM Number of Diagnoses or Management Options Amount and/or Complexity of Data Reviewed Clinical lab tests: ordered and reviewed Review and summarize past medical records: yes Reviewed: previous chart, nursing note and vitals Reviewed previous: labs Interpretation: labs Clinical Impression 1. Hypertension 2. Migraine headache Labs are unremarkable. Patient BP has remained stable since arrival. BP upon discharge is 131/75. Patient reports significant relief in headache. Advised to follow-up with PCP regarding hypertension.Patient also aware she may benefit from neurology consult for chronic migraine headaches. The patient remained stable throughout their ED stay. My clinical impression was discussed with thepatient/family. Labs and radiology results were reviewed with them. I gave them the opportunity to ask questions, and addressed them as completely as possible given the information available at present. The therapeutic plan was discussed, advised to take medications as instructed, instructions weregiven and the importance of primary care follow up was stressed and encouraged. The patient/family voiced understanding of the plan, indications to return, and the need for follow up. Cosigned by Clifton Avery MD at 06/29/2021 4:15 PM CDT * Norma Dumont RN - 06/29/2021 11:47 AM CDT Pt arrives A&Ox4 ambulatory complaining of high blood pressure. Pt has a history of hypertension and has been taking her medications regularly for it. Pt takes her BP everyday and reports that itwas 180/130. Pt began to develop a headache rating a 7/10. Pt started having N/V along w headache and decided to come get checked out. documented in this encounter Plan of Treatment Not on file documented as of this encounter Procedures Procedure Name Priority Date/Time Associated Diagnosis Comments CBC WITH AUTO DIFFERENTIAL STAT 06/29/2021 1:25 PM CDT CMP (COMPREHENSIVE METABOLIC PANEL) STAT 06/29/2021 1:25 PM CDT COMPLETE BLOOD COUNT (CBC) WITH DIFF STAT 06/29/2021 1:25 PM CDT documented in this encounter Results * (ABNORMAL) CBC with Auto Differential (06/29/2021 1:25 PM CDT) WBC 8.45 4.00 - 12.00 10(3)/mcL 06/29/2021 1:[address] [facility] RBC 4.98 3.80 - 5.30 10(6)/mcL 06/29/2021 1:47 PM CDT [facility] HEMOGLOBIN (HGB) 13.4 12.0 - 15.8 g/dL 06/29/2021 1:47 PM CDT [facility] HEMATOCRIT (HCT) 41.8 36.0 - 47.0 % 06/29/2021 1:47 PM CDT [facility] MCV 83.9 82.0 - 96.0 fL 06/29/2021 1:[address] [facility] MCH 26.9 26.0 - 34.0 pg 06/29/2021 1:47 PM CDT [facility] MCHC 32.1 31.0 - 36.0 g/dL 06/29/2021 1:[address] [facility] PLATELET COUNT 285 140 - 440 10(3)/mcL 06/29/2021 1:[address] [facility] RDW 13.4 11.8 - 15.5 % 06/29/2021 1:[address] [facility] MPV 10.2 9.7 - 12.4 fL 06/29/2021 1:[address] [facility] NEUTROPHILS 76.3(H) 47.0 - 73.0 % 06/29/2021 1:[address] [facility] LYMPHOCYTES 18.0 18.0 - 42.0 % 06/29/2021 1:[address] [facility] MONOCYTES 4.4 4.0 - 12.0 % 06/29/2021 1:[address] [facility] EOSINOPHILS 0.7 0.0 - 5.0 % 06/29/2021 1:[address] [facility] BASOPHILS 0.6 0.0 - 1.0 % 06/29/2021 1:[address] [facility] ABSOLUTE NEUTROPHILS 6.45 1.60 - 7.70 10(3)/mcL 06/29/2021 1:[address] [facility] ABSOLUTE LYMPHOCYTES 1.52 1.30 - 3.20 10(3)/mcL 06/29/2021 1:[address] [facility] ABSOLUTE MONOCYTES 0.37 0.20 - 1.00 10(3)/[facility] 06/29/2021 1:[address] [facility] ABSOLUTE EOSINOPHIL 0.06 0.00 - 0.40 10(3)/[facility] 06/29/2021 1:[address] [facility] ABSOLUTE BASOPHILS 0.05 0.00 - 0.10 10(3)/[facility] 06/29/2021 1:47 PM CDT [facility] NRBC PER 100 WBC 0 06/30/19 1:47 PM CDT [facility] Blood Venipuncture / Unknown 06/29/2021 1:25 PM CDT 06/29/2021 1:42 PM CDT us Amanda Barger SILK SCREEN PROCESSOR, LOADING SUPERVISOR HEMATOLOGY ORDERABLES Final Result [facility] [address] [place] [address] * (ABNORMAL) Comprehensive Metabolic Panel (Cmp) [id number] (06/29/2021 1:25 PM CDT) SODIUM 136 136 - 144 mmol/L 06/29/2021 2:[address] [facility] POTASSIUM 4.1 3.5 - 5.1 mmol/L 06/29/2021 2:07 PM CDT [facility] CHLORIDE 102 100 - 110 mmol/L 06/29/2021 2:07 PM CDT [facility] CO2, VENOUS 20(L) 22 - 32 mmol/L 06/29/2021 2:07 PM CDT [facility] ANION GAP 18.1 8.0 - 20.0 mmol/L 06/29/2021 2:07 PM CDT [facility] GLUCOSE 115(H) 70 - 99 mg/dL 06/29/2021 2:07 PM CDT [facility] BUN 11 6 - 20 mg/dL 06/29/2021 2:07 PM CDT [facility] CREATININE, BLOOD 0.47(L) 0.60 - 1.10 mg/dL 06/29/2021 2:07 PM CDT [facility] BUN/CREATININE RATIO 23(H) 12 - 20 ratio 06/29/2021 2:07 PM CDT [facility] TOTAL PROTEIN 7.7 6.0 - 8.3 g/dL 06/29/2021 2:07 PM CDT [facility] ALBUMIN 4.8 3.5 - 5.2 g/dL 06/29/2021 2:07 PM CDT [facility] Comment: The colormetric methods used for the determination of Albumin may lead to falsely elevated test results in patients suffering from renal failure or insufficiency due to interference with other proteins. A/G RATIO 1.7 1.0 - 2.0 06/29/2021 2:07 PM CDT [facility] CALCIUM 9.4 8.9 - 10.3 mg/dL 06/29/2021 2:[address] [facility] T BILI 0.7 <=1.2 mg/dL 06/29/2021 2:[address] [facility] SGOT (AST) 24 <=32 U/L 06/29/2021 2:[address] [facility] SGPT (ALT) 25 <=41 U/L 06/29/2021 2:07 PM CDT [facility] ALKALINE PHOSPHATASE 69 35 - 105 U/L 06/29/2021 2:07 PM CDT [facility] GFR, EST. NONAFRICAN >60 >=60 06/29/2021 2:07 PM CDT [facility] GFR, EST. >60 >=60 022 2:07 PM CDT [facility] Comment: Creatinine Clearance is the preferred criteria for selecting drug dose adjustments in renally impaired patients. ??The GFR is provided as additional pertinent clinical information. GFR is reported in mL/min/1.73 sq m. Blood Venipuncture / Unknown 06/29/2021 1:25 PM CDT 06/29/2021 1:42 PM CDT us Amanda Barger SILK SCREEN PROCESSOR, LOADING SUPERVISOR CHEMISTRY ORDERABLES Final Result [facility] [address] [place] [address] documented in this encounter Visit Diagnoses Diagnosis Hypertension- Primary Unspecified essential hypertension Migraine headache Migraine, unspecified, without mention of intractable migraine without mention of status migrainosus documented in this encounter Administered Medications Inactive Administered Medications - up to 3 most recent administrations Medication Order MAR Action Action Date Dose Rate Site dexamethasone (DECADRON) injection 10 mg 10 mg, Oral, ONCE, 1 dose, On Mon06/29/21 at 1400 Given 06/29/2021 1:43 PM CDT 10 mg diphenhydrAMINE (BENADRYL) injection 25 mg 25 mg, Intravenous, ONCE, 1 dose, On 06/29/21 at 1400 Given 06/29/2021 1:43 PM CDT 25 mg metoclopramide (REGLAN) injection 10 mg 10 mg, Intravenous, ONCE, 1 dose, On 06/29/21 at 1400 Given 06/29/2021 1:43 PM CDT 10 mg ondansetron (ZOFRAN) injection 4 mg 4 mg, Intravenous, ONCE, 1 dose, On 06/29/21 at 1400 Given 06/29/2021 1:43 PM CDT 4 mg documented in this encounter Active and Recently Administered Medications Times are shown in CDT. Scheduled Medication Order 06/27/2021 06/28/2021 06/29/2021 dexamethasone (DECADRON) injection 10 mg (COMPLETED) 10 mg, Oral, ONCE, 1 dose, On e 06/29/21 at 1400 1343 (Given - Provid er: Yazmin Campebll RN) diphenhydrAMINE (BENADRYL) injection 25 mg (COMPLETED) 25 mg, Intravenous, ONCE, 1 dose, On 06/29/21 at 1400 1343 (Given - Provid er: Yazmin Campbell RN) metoclopramide (REGLAN) injection 10 mg (COMPLETED) 10 mg, Intravenous, ONCE, 1 dose, On 06/29/21 at 1400 1343 (Given - Provid er: Yamzin Campbell RN) ondansetron (ZOFRAN) injection 4 mg (COMPLETED) 4 mg, Intravenous, ONCE, 1 dose, On 06/29/21 at 1400 1343 (Given - Provid er: Yazmin Campbell RN) documented in this encounter Care Teams Negotiator Sales Relationship Specialty Start Date End Date Jonelle Elam MD [address] [place] [id number] PCP - General Family Medicine 02/22/15 documented as of this encounter
--- OUTSIDE RECORDS SUMMARY | 2024-04-14 17:46 | XMS_ITS | Encounter Summary ---
Author Organization [facility] Address [address] [place] [address] Phone Care Team Providers Care Mountain Bike Guide Name Role Phone Jonelle Elam MD Primary Care Provider + Reason for Visit * Reason Comments Vomiting Encounter Details Date Type Department Care Team (Late st Contact Info) Description 05/04/2020 1:36 PM [facility] - 05/04/2020 5:16 PM [facility] Emergency [facility] Emergency [address] [place] [address] Vipin Beavers MD [address] [place] [address] Nausea with vomiting Discharge Disposition: Discharged to home or Selfcare Social History Tobacco Use Types Packs/Day Years Used Date Smoking Tobacco: Never Smokeless Tobacco: Never Alcohol Use Standard Drinks/Week Comments No 0 (1 standard drink = 0.6 oz pur e alcohol) Comments No Sex and Gender Information Value Date Recorded Sex Assigned at Not on file Legal Sex Female 10:30 PM [facility] Gender Identity Not on file Sexual Orientation Not on file COVID-19 Exposure Response Date Recorded In the last month, have you been in contact with someone who was confirmed or suspected to have Coronavirus / COVID-19? No / Unsure 05/04/2020 1:32 PM [facility] documented as of this encounter Last Filed Vital Signs Vital Sign Reading Time Taken Comments Blood Pressure 144/72 05/04/2020 5:00 PM [facility] Pulse 79 05/04/2020 5:00 PM [facility] Temperature 36.1 ??C (97 ??F) 05/04/2020 1:33 PM [facility] Respiratory Rate 19 05/04/2020 5:00 PM [facility] Oxygen Saturation 100% 05/04/2020 5:00 PM [facility] Inhaled Oxygen Concentration - - Weight 139.3 kg (307 lb) 05/04/2020 1:33 PM [facility] Height 154.9 cm (5' 1 ) 05/04/2020 1:33 PM [facility] Body Mass Index 58.01 05/04/2020 1:33 PM [facility] documented in this encounter Discharge Instructions * Attachments The following attachments cannot be sent through Care Everywhere. * Vomiting (Adult) (Romanian) documented in this encounter Medications at Time [...] 2 times daily. 180 Tab 1 01/07/2019 documented as of this encounter ED Notes * Linda Sanchez RN - 05/04/2020 5:15 PM CST Patient discharged. Discharge instructions and patient educational material reviewed with patient; questions and concerns addressed; patient verbalizes understanding, using teach back. Patient was given 1 prescription. Patient ambulatory with steady gait; no distress noted. SL D/C'ed with Dionicio cath intact. PER COUNTERS * Linda Sanchez RN - 05/04/2020 4:[address] Beavers at bedside to discuss results with patient. PER COUNTERS * Araceli Gallegos RN - 05/04/2020 3:50 PM CST Pt medicated per provider orders. Pt educated on intended effects and side effects of medication and verbalized understanding, able to provide teach back of education. Call light in reach. Urine specimen requested again but pt states she still cannot void. PER COUNTERS PER COUNTERS * Linda Sanchez RN - 05/04/2020 2:45 PM CST IV access established, blood work drawn, and Pt medicated per provider orders. Pt educated on intended effects and side effects of medication and verbalized understanding, able to provide teach back of education. Pt updated on status and timeframe. Call light in reach. No distress noted at this time. PER COUNTERS * Vipin Beavers MD - 05/04/2020 1:43 PM CST Chief Complaint Patient presents with ??? Vomiting Deya Campbell is a 24 y.o. female who presents to the emergency department complaining of severe nausea and vomiting. Patient states she woke about 7:00 a.m. today and she has been unable to keep anything down by mouth. She states fluid consider down as long as the half our but everything has been coming back up. Nothing unusual about the vomit. No blood. She has a little bit of loose stool yesterday but no bowel movements today. No blood or black tarry stools yesterday. She said she has beenvomiting so much is making her stomach on a sore but she does not have any specific areas of pain. She has had sweats and chills but no fevers. Eating makes her symptoms worse. She has found nothing that made the symptoms better. They are constant. They are severe. Past medical history: Illnesses: Hypertension, Maloney, diverticulosis Medications: Losartan 100 mg a day Allergies: Keflex, labetalol and levofloxacin Social History: Tobacco: Never smoked Alcohol: Denies Drugs: Denies Family History: Cancer, diabetes, heart disease, hypertension, fibromyalgia No current facility-administered medications for this encounter. [...] mouth 2 times daily. 180 Tab 1 Allergies Allergen Reactions ??? Labetalol Hcl Other [...] EXAM, HEMORRHOIDS; Surgeon: Charles Amezcua MD; Location: [facility]; Service: Gastroenterology ??? [...] No ??? Sexual activity: Not on file Lifestyle ??? Physical activity Days per week: Not on file Minutes per session: Not on file ??? Stress: Not on file Relationships ??? Social connections Talks on phone: Not on file Gets together: Not on file Attends anabaptist service: Not on file Active member of [...] History Narrative ??? Not on file BP 160/86 Pulse 75 Temp 97 ??F (36.1 ??C) (Tympanic) Resp 29 Ht 5' 1 (1.549 m) Wt 307 lb(139.3 kg) LMP 04/29/2020 SpO2 99% BMI 58.01 kg/m?? Review of Systems Constitutional: Negative for activity change, appetite change, chills, diaphoresis, fatigue and fever. HENT: Negative for dental problem, rhinorrhea and sore throat. Eyes: Negative for visual disturbance. Respiratory: Negative for cough, chest tightness, shortness of breath and wheezing. Cardiovascular: Negative for chest pain, palpitations and leg swelling. Gastrointestinal: Positive for abdominal pain, nausea and vomiting. Negative for constipation and diarrhea. Genitourinary: Negative for difficulty urinating, flank pain, hematuria and urgency. Musculoskeletal: Negative for arthralgias, back pain, myalgias, neck pain and neck stiffness. Skin: Negative for color change and rash. Allergic/Immunologic: Negative for food allergies. Neurological: Negative for dizziness, syncope, weakness, light-headedness, numbness and headaches. Psychiatric/Behavioral: Negative for self-injury, sleep disturbance and suicidal ideas. All other systems reviewed and are negative. Physical Exam Vitals signs and nursing note reviewed. Constitutional: General: She is not in acute distress. Appearance: She is well-developed. She is not diaphoretic. HENT: Head: Normocephalic and atraumatic. Right Ear: External ear normal. Left Ear: External ear normal. Nose: Nose normal. Mouth/Throat: Pharynx: No oropharyngeal exudate. Eyes: General: Right eye: No discharge. Left eye: No discharge. Conjunctiva/sclera: Conjunctivae normal. Pupils: Pupils are equal, round, and reactive to light. Neck: Musculoskeletal: Normal range of motion and neck supple. Thyroid: No thyromegaly. Vascular: No JVD. Trachea: No tracheal deviation. Cardiovascular: Rate and Rhythm: Normal rate and regular rhythm. Heart sounds: Normal heart sounds. No murmur. Pulmonary: Effort: Pulmonary effort is normal. No respiratory distress. Breath sounds: Normal breath sounds. No wheezing or rales. Chest: Chest wall: No tenderness. Abdominal: General: Bowel sounds are normal. There is no distension. Palpations: Abdomen is soft. There is no mass. Tenderness: There is no abdominal tenderness. There is no guarding or rebound. Musculoskeletal: Normal range of motion. General: No tenderness. Right lower leg: No edema. Left lower leg: No edema. Lymphadenopathy: Cervical: No cervical adenopathy. Skin: General: Skin is warm and dry. Capillary Refill: Capillary refill takes less than 2 seconds. Coloration: Skin is not pale. Findings: No erythema or rash. Neurological: General: No focal deficit present. Mental Status: She is alert and oriented to person, place, and time. Cranial Nerves: No cranial nerve deficit. Motor: No abnormal muscle tone. Coordination: Coordination normal. Deep Tendon Reflexes: Reflexes are normal and symmetric. Psychiatric: Mood and Affect: Mood normal. Behavior: Behavior normal. Thought Content: Thought content normal. Procedures Imaging Results None [facility] Labs Reviewed CMP (COMPREHENSIVE METABOLIC PANEL) - Abnormal; Notable for the following components: Result Value GLUCOSE 120 (*) CREATININE, BLOOD 0.44 (*) BUN/CREATININE RATIO 27 (*) All other components within normal limits CBC WITH AUTO DIFFERENTIAL - Abnormal; Notable for the following components: MCV 79.1 (*) MCH 25.6 (*) MPV 9.4 (*) NEUTROPHILS 81.3 (*) LYMPHOCYTES 14.7 (*) MONOCYTES 3.3 (*) ABSOLUTE LYMPHOCYTES 0.99 (*) All other components within normal limits LIPASE - Normal COMPLETE BLOOD COUNT (CBC) WITH DIFF Narrative: The following orders were created for panel order Complete Blood Count (CBC) WITH Diff. Procedure Abnormality Status --------- ------ CBC with Auto Differential[[id number]] Abnormal Final result Please view results for these tests on the individual orders. HUMAN CHORIONIC GONADOTROPIN SCRN SERUM EXTRA TUBES Narrative: The following orders were created for panel order Extra Tubes. Procedure Abnormality Status --------- ------ Blue Top Tube[[id number]] Final result MINT CLAUDIA LAY HEPARIN/S...[[id number]] Final result Please view results for these tests on the individual orders. URINALYSIS REFLEX IF INDICATED BY ABNORMAL RESULTS BLUE TOP TUBE MINT GREEN, LI HEPARIN/SST TOP TUBE Complete Blood Count (CBC) WITH Diff Final Result CMP (Comprehensive Metabolic Panel) Final Result Lipase Final Result Human Chorionic Gonadotropin Scrn Serum [id number] Final Result Extra Tubes Final Result Urinalysis Reflex if Indicated by Abnormal Results (Results Pending) Patient with severe nausea and vomiting probably gastroenteritis. We will give her IV fluids, Zofran. Will check labs including lipase. Vitals are all stable. Anticipate getting her feeling better and sending her home with antiemetics. Patient is feeling much better. She passed a p.o. challenge. We will send her home with some Zofran. Coding Clinical Impression 1. Nausea with vomiting The patient remained stable throughout their ED stay. My clinical impression was discussed with thepatient/caregiver. Any labs and radiology results were reviewed. Questions were addressed as completely as possible given the information available at present. The therapeutic plan was discussed, inst ructions were given and the importance of primary care follow up was stressed and encouraged. The patient/caregiver voiced understanding of the plan, indications to return, and the need for follow up. New Medications: New Prescriptions ONDANSETRON (ZOFRAN-ODT) 4 MG TABLET DISPERSIBLE Take 1 Tab by mouth every 8 hours as needed for Nausea - 1st line. I have advised the patient to follow-up with: Jonelle Elam MD [address] [place] [address] Call in 2 days As needed Dispostion: Discharge PER COUNTERS * Amanda Barger RN - 05/04/2020 1:35 PM CST Patient to triage with complaints of nausea and vomiting nonstop since 0700 this morning. Patient states that she woke up with the nausea. Denies abdominal pain, but reports abdominal soreness from vomiting so much. Patient states that she tested positive for Covid on 04/23/2020. Patient also reports history of diverticulitis. Denies urinary symptoms. Denies fevers, and patient is afebrile at thistime. PER COUNTERS documented in this encounter Plan of Treatment Not on file documented as of this encounter Procedures Procedure Name Priority Date/Time Associated Diagnosis Comments CBC WITH AUTO DIFFERENTIAL STAT 05/04/2020 2:52 PM [facility] HUMAN CHORIONIC GONADOTROPIN SCRN SERUM STAT 05/04/2020 2:52 PM [facility] LIPASE STAT 05/04/2020 2:52 PM [facility] CMP (COMPREHENSIVE METABOLIC PANEL) STAT 05/04/2020 2:52 PM [facility] COMPLETE BLOOD COUNT (CBC) WITH DIFF STAT 05/04/2020 2:52 PM [facility] EXTRA TUBES STAT 05/04/2020 2:42 PM [facility] CLAUDIA ANN HEPARIN/SST TOP TUBE STAT 05/04/2020 2:42 PM [facility] BLUE TOP TUBE STAT 05/04/2020 2:42 PM [facility] documented in this encounter Results * Human Chorionic Gonadotropin Scrn Serum [id number] (05/04/2020 2:52 PM [facility]) PREG-HCG Negative 05/04/2020 3:26 PM [facility] Blood Venous Catheter (IV) / Unknown 05/04/2020 2:52 PM [facility] 05/04/2020 3:02 PM [facility] us Vipin Beavers MD CHEMISTRY ORDERABLES Final Resu lt [facility] [address] [place] [address] * (ABNORMAL) CBC with Auto Differential (05/04/2020 2:52 PM [facility]) [facility] WBC 6.73 4.00 - 12.00 10(3)/[facility] 05/04/2020 3:05 PM [facility] RBC 5.08 3.80 - 5.30 10(6)/mcL 05/04/2020 3:05 PM [facility] HEMOGLOBIN (HGB) 13.0 12.0 - 15.8 g/dL 05/04/2020 3:05 PM [facility] HEMATOCRIT (HCT) 40.2 36.0 - 47.0 % 05/04/2020 3:05 PM [facility] MCV 79.1(L) 82.0 - 96.0 fL 05/04/2020 3:05 PM [facility] MCH 25.6(L) 26.0 - 34.0 pg 05/04/2020 3:05 PM [facility] MCHC 32.3 31.0 - 36.0 g/dL 05/04/2020 3:05 PM [facility] PLATELET COUNT 311 140 - 440 10(3)/[facility] 05/04/2020 3:05 PM [facility] RDW 13.2 11.8 - 15.5 % 05/04/2020 3:05 PM [facility] MPV 9.4(L) 9.7 - 12.4 fL 05/04/2020 3:05 PM [facility] NEUTROPHILS 81.3(H) 47.0 - 73.0 % 05/04/2020 3:05 PM [facility] LYMPHOCYTES 14.7(L) 18.0 - 42.0 % 05/04/2020 3:05 PM [facility] MONOCYTES 3.3(L) 4.0 - 12.0 % 05/04/2020 3:05 PM [facility] EOSINOPHILS 0.4 0.0 - 5.0 % 05/04/2020 3:05 PM [facility] BASOPHILS 0.3 0.0 - 1.0 % 05/04/2020 3:[address] [facility] ABSOLUTE NEUTROPHILS 5.47 1.60 - 7.70 10(3)/[facility] 05/04/2020 3:05 PM [facility] ABSOLUTE LYMPHOCYTES 0.99(L) 1.30 - 3.20 10(3)/[facility] 05/04/2020 3:05 PM [facility] ABSOLUTE MONOCYTES 0.22 0.20 - 1.00 10(3)/[facility] 05/04/2020 3:[address] [facility] ABSOLUTE EOSINOPHIL 0.03 0.00 - 0.40 10(3)/[facility] 05/04/2020 3:05 PM [facility] ABSOLUTE BASOPHILS 0.02 0.00 - 0.10 10(3)/[facility] 05/04/2020 3:05 PM [facility] NRBC PER 100 WBC 0 05/04/19 21 3:[address] [facility] Blood Venous Catheter (IV) / Unknown 05/04/2020 2:52 PM [facility] 05/04/2020 3:02 PM [facility] Vipin Beavers MD HEMATOLOGY ORDERABLES Final Res ult Performing Organization Address City/[facility]/ZIP Co de Phone Number [facility] [address] [place] [address] * Lipase (05/04/2020 2:52 PM [facility]) LIPASE 22.3 13 - 60 U/L 05/04/2020 3:[address] [facility] Blood Venous Catheter (IV) / Unknown 05/04/2020 2:52 PM [facility] 05/04/2020 3:02 PM [facility] Vipin Beavers MD CHEMISTRY ORDERABLES Final Resu lt [facility] [address] [place] [address] * (ABNORMAL) CMP (Comprehensive Metabolic Panel) (05/04/2020 2:52 PM [facility]) SODIUM 138 136 - 144 mmol/L 05/04/2020 3:28 PM [facility] POTASSIUM 4.1 3.5 - 5.1 mmol/L 05/04/2020 3:28 PM [facility] CHLORIDE 101 100 - 110 mmol/L 05/04/2020 3:28 PM [facility] CO2, VENOUS 25 22 - 32 mmol/L 05/04/2020 3:28 PM [facility] ANION GAP 16.1 8.0 - 20.0 mmol/L 05/04/2020 3:28 PM [facility] GLUCOSE 120(H) 70 - 99 mg/dL 05/04/2020 3:28 PM [facility] BUN 12 6 - 20 mg/dL 05/04/2020 3:28 PM [facility] CREATININE, BLOOD 0.44(L) 0.60 - 1.10 mg/dL 05/04/2020 3:28 PM [facility] BUN/CREATININE RATIO 27(H) 12 - 20 ratio 05/04/2020 3:28 PM [facility] TOTAL PROTEIN 7.7 6.0 - 8.3 g/dL 05/04/2020 3:28 PM [facility] ALBUMIN 4.9 3.5 - 5.2 g/dL 05/04/2020 3:28 PM [facility] Comment: The colormetric methods used for the determination of Albumin may lead to falsely elevated test results in patients suffering from renal failure or insufficiency due to interference with other proteins. A/G RATIO 1.8 1.0 - 2.0 05/04/2020 3:28 PM [facility] CALCIUM 9.7 8.9 - 10.3 mg/dL 05/04/2020 3:28 PM [facility] T BILI 0.6 <=1.2 mg/dL 05/04/2020 3:28 PM [facility] SGOT (AST) 26 <=32 U/L 05/04/2020 3:28 PM [facility] SGPT (ALT) 33 <=41 U/L 05/04/2020 3:28 PM [facility] ALKALINE PHOSPHATASE 71 35 - 105 U/L 05/04/2020 3:28 PM [facility] GFR, EST. NONAFRICAN >60 >=60 05/04/2020 3:28 PM [facility] GFR, EST. >60 >=60 021 3:28 PM [facility] Comment: Creatinine Clearance is the preferred criteria for selecting drug dose adjustments in renally impaired patients. ??The GFR is provided as additional pertinent clinical information. GFR is reported in mL/min/1.73 sq m. Blood Venous Catheter (IV) / Unknown 05/04/2020 2:52 PM [facility] 05/04/2020 3:02 PM [facility] Vipin Beavers MD CHEMISTRY ORDERABLES Final Resu lt Performing Organization Address City/[facility] Co de Phone Number [facility] [address] [place] [address] * CLAUDIA ANN HEPARIN/SST TOP TUBE (05/04/2020 2:42 PM [facility]) Blood No Phlebotomy Charged / Unknown 05/04/2020 2:42 PM [facility] 05/04/2020 3:04 PM [facility] Vipin Beavers MD HEMATOLOGY ORDERABLES Final Res ult Performing Organization Address City/[facility]/ZIP Co de Phone Number [facility] [address] [place] [address] * Blue Top Tube (05/04/2020 2:42 PM [facility]) Blood No Phlebotomy Charged / Unknown 05/04/2020 2:42 PM [facility] 05/04/2020 3:04 PM [facility] us Vipin Beavers MD HEMATOLOGY ORDERABLES Final Res ult [facility] [address] [place] [address] documented in this encounter Visit Diagnoses Diagnosis Nausea with vomiting- Primary documented in this encounter Administered Medications Inactive Administered Medications - up to 3 most recent administrations Medication Order MAR Action Action Date Dose Rate Site 0.9 % sodium chloride solution at 1,000 mL/hr, Intravenous, ONCE, 1 dose, On Mon05/04/20 at 1400 New Bag 05/04/2020 2:42 PM [facility] 1000 mL/hr acetaminophen (TYLENOL) tablet 650 mg 650 mg, Oral, ONCE, 1 dose, On Mon05/04/20 at 1530, Maximum dose of acetaminophen is 4000 mg from all sources in 24 hours. Given 05/04/2020 3:18 PM [facility] 650 mg ondansetron (ZOFRAN) injection 4 mg 4 mg, Intravenous, ONCE, 1 dose, On Mon05/04/20 at 1400 Given 05/04/2020 2:42 PM [facility] 4 mg ondansetron (ZOFRAN) injection 4 mg 4 mg, Intravenous, ONCE, 1 dose, On Mon05/04/20 at 1630 Given 05/04/2020 3:50 PM [facility] 4 mg documented in this encounter Active and Recently Administered Medications Times are shown in [facility]. Scheduled Medication Order 05/02/2020 05/03/2020 05/04/2020 0.9 % sodium chloride solution (COMPLETED) at 1,000 mL/hr, Intravenous, ONCE, 1 dose, On Mon05/04/20 at 1400 1442 (New Bag - Prov ider: Linda Sanchez RN)1637 (Stopped - Provider: Linda Sanchez RN) acetaminophen (TYLENOL) tablet 650 mg (COMPLETED) 650 mg, Oral, ONCE, 1 dose, On Mon05/04/20 at 1530, Maximum dose of acetaminophen is 4000 mg from all sources in 24 hours. 1518 (Given - Provid er: Araceli Gallegos RN) ondansetron (ZOFRAN) injection 4 mg (COMPLETED) 4 mg, Intravenous, ONCE, 1 dose, On Mon05/04/20 at 1400 1442 (Given - Provid er: Linda Sanchez RN) ondansetron (ZOFRAN) injection 4 mg (COMPLETED) 4 mg, Intravenous, ONCE, 1 dose, On Mon05/04/20 at 1630 1550 (Given - Provid er: Araceli Gallegos RN) documented in this encounter Additional Health Concerns Infection Onset Date Last Indicated Resolved Time COVID - 19 Confirmed 05/04/2020 05/04/2020 021 12:18 AM [facility] documented as of this encounter Care Teams Mountain Bike Guide Relationship Specialty Start Date End Date Jonelle Elam MD [address] [place] [id number] PCP - General Family Medicine 02/22/15 documented as of this encounter
--- OUTSIDE RECORDS SUMMARY | 2024-04-14 17:46 | XMS_ITS | Encounter Summary ---
Author Organization [facility] Address [address] [place] [address] Phone Care Team Providers Care Restaurant Shift Leader Name Role Phone Jonelle Elam MD Primary Care Provider + Reason for Visit * Reason Comments Wound Check Encounter Details Date Type Department Care Team (Late st Contact Info) Description 12/04/2020 6:04 PM CDT - 12/04/2020 7:57 PM CDT Emergency [facility] Emergency [address] [place] [id number] Ellen Gordon, PAC [address] [place] [address] Insect bite of left arm Discharge Disposition: Discharged to home or Selfcare Social History Tobacco Use Types Packs/Day Years Used Date Smoking Tobacco: Never Smokeless Tobacco: Never Alcohol Use Standard Drinks/Week Comments No 0 (1 standard drink = 0.6 oz pur e alcohol) Comments No Sex and Gender Information Value Date Recorded Sex Assigned at Not on file 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 No / Unsure 12/04/2020 6:00 PM CDT documented as of this encounter Last Filed Vital Signs Vital Sign Reading Time Taken Comments Blood Pressure 146/78 12/04/2020 7:54 PM CDT Pulse 69 12/04/2020 7:54 PM CDT Temperature 36.3 ??C (97.3 ??F) 12/04/2020 6:00 PM CD T Respiratory Rate 20 12/04/2020 7:54 PM CDT Oxygen Saturation 98% 12/04/2020 7:54 PM CDT Inhaled Oxygen Concentration - - Weight 142 kg (313 lb) 12/04/2020 6:00 PM CDT Height 154.9 cm (5' 1 ) 12/04/2020 6:00 PM CDT Body Mass Index 59.14 12/04/2020 6:00 PM CDT documented in this encounter Discharge Instructions * Discharge Instructions* Ellen Gordon PAC - 12/04/2020 7:50 PM CDT Please return if your symptoms change or worsen. Follow up with your primary care provider if your symptoms are not improving in the next three days. * Attachments The following attachments cannot be sent through Care Everywhere. * Bites and Stings, Insect ([place]ri [place]ankan) documented in this encounter Medications at Time [...] Application Site: left arm 30 g 12/04/2020 sulfamethoxazole- trimethoprim DS (Bactrim DS) 800-160 MG Tablet Take 1 Tablet by mouth 2 times daily for 10 days. 20 Tablet 12/04/2020 1 documented as of this encounter ED Notes * Angelina Booker RN - 12/04/2020 7:54 PM CDT Patient verbalized understanding of dc instructions. Medications reviewed. Patient ambulatory out of ED, no distress noted. * Ellen Gordon PAC - 12/04/2020 7:45 PM CDT Chief Complaint Patient presents with ??? Wound Check HPI Deya Campbell is a 25 y.o. female who presents due to concern for an infection to her L arm. She states that she believes she was bit by a but to her L distal humerus. She states last night she noticed the area was warm, red, and itchy. She denies any fever. She states she has had itching to her L lateral arm in the area of mosquito bites for several days. She states she feels well otherwise. She denies any chance of . Current Facility-Administered Medications Medication Dose Route Frequency Provider Last Rate Last Admin ??? sulfamethoxazole-trimethoprim DS (BACTRIM DS, SEPTRA DS) 800-160 MG per tablet 1 Tablet 1 Tablet Oral Once Ellen Gordon PAC Current Outpatient Medications Medication Sig Dispense Refill [...] 2 times daily. 180 Tab 1 ??? sulfamethoxazole-trimethoprim DS (Bactrim DS) 800-160 MG Tablet Take 1 Tablet by mouth 2 times daily for 10 days. 20 Tablet 0 ??? triamcinolone (ARISTOCORT) 0.5 % Cream Apply [...] EXAM, HEMORRHOIDS; Surgeon: Charles Amezcua MD; Location: [facility]; Service: Gastroenterology ??? MYRINGOTOMY [...] Not on file Social Determinants of Health Social determinant risk not applicable to this patient. BP 159/85 Pulse 72 Temp 97.3 ??F (36.3 ??C) (Tympanic) Resp 21 Ht 5' 1 (1.549 m) Wt 313 lb (142 kg) LMP (LMP Unknown) SpO2 99% BMI 59.14 kg/m?? Review of Systems Constitutional: Negative for chills and fever. HENT: Negative for congestion, ear pain, rhinorrhea and sore throat. Eyes: Negative for discharge. Respiratory: Negative for cough, chest tightness, shortness of breath and wheezing. Cardiovascular: Negative for chest pain and palpitations. Gastrointestinal: Negative for abdominal pain, diarrhea, nausea and vomiting. Genitourinary: Negative for difficulty urinating and menstrual problem. Musculoskeletal: Negative for arthralgias and myalgias. Skin: Positive for color change (left arm ). Negative for rash and wound. Neurological: Negative for dizziness, syncope and headaches. All other systems reviewed and are negative. [...] Skin: General: Skin is warm and dry. Comments: L distal humerus with a 2x2 cm area of redness with center scab and induration. Few otherexcoriated papules to L mid lateral humerus. No edema appreciated. Radial pulse intact. Neurological: Mental Status: She is alert and oriented to person, place, and time. Cranial Nerves: No cranial nerve deficit. Procedures Imaging Results None MDM Coding Clinical Impression 1. Insect bite of left arm, possible early cellulitis Patient was started on bactrim DS for possible early cellulitis. She was also given triamcinolone 0.5 % cream. Encouraged close f/u with her pmd and to return if sx change or worsen. Patient expressed understanding and agreement to the tx plan. Cosigned by Juanpablo Brito MD at 12/05/2020 3:35 AM CDT Associated attestation - Juanpablo Brito MD - 12/05/2020 3:35 AM CDT I collaborated in the care of this patient with the EQUAL OPPORTUNITY COUNSELOR/PA. I did not personally examine this patient. I agree with the EQUAL OPPORTUNITY COUNSELOR/PA???s findings and defer to the attached note. I have the following additions/revisions: * Mahsa Branch RN - 12/04/2020 6:00 PM CDT Pt ambulatory to triage with c/o wound to left elbow region. Reports thinking she was bit by a bug,but it has now become swollen and red. Reports warmth. Reports family history of MRSA. Denies any other complaints. documented in this encounter Plan of Treatment Not on file documented as of this encounter Visit Diagnoses Diagnosis Insect bite of left arm, possible early cellulitis- Primary Elbow, forearm, and wrist, insect bite, nonvenomous, without mention of infection documented in this encounter Administered Medications Inactive Administered Medications - up to 3 most recent administrations Medication Order MAR Action Action Date Dose Rate Site sulfamethoxazole-trimethoprim DS (BACTRIM DS, SEPTRA DS) 800-160 MG per tablet 1 Tablet 1 Tablet, Oral, ONCE, 1 dose, On Mon12/04/20 at 1999, Dose based on trimethoprim component, Indications: cellulitis left armIndications:cellulitis left arm Given 12/04/2020 8:00 PM CDT 1 Tablet documented in this encounter Active and Recently Administered Medications Times are shown in CDT. Scheduled Medication Order 12/02/2020 12/03/2020 12/04/2020 sulfamethoxazole-trimethoprim DS (BACTRIM DS, SEPTRA DS) 800-160 MG per tablet 1 Tablet (COMPLETED) 1 Tablet, Oral, ONCE, 1 dose, On Mon12/04/20 at 1999, Dose based on trimethoprim component, Indications: cellulitis left arm 1999 (Given - Provid er: Angelina Booker RN) documented in this encounter Care Teams Restaurant Shift Leader Relationship Specialty Start Date End Date Jonelle Elam MD [address] [place] [phone] PCP - General Family Medicine 02/22/15 documented as of this encounter
--- OUTSIDE RECORDS SUMMARY | 2024-04-14 17:46 | XMS_ITS | Encounter Summary ---
Author Organization [facility] Address [address] [place] [address] Phone Care Team Providers Care Optician Name Role Phone Jonelle Elam MD Primary Care Provider + Encounter Details Date Type Department Care Team (Latest Contact Info) Description 10/17/2020 Transcribe Orders [facility] Admitting 1 [place] [address] Jonelle Elam MD [address] [place] [phone] Morbid obesity (HCC) (Primary Dx) Social History Tobacco Use Types Packs/Day Years Used Date Smoking Tobacco: Never Smokeless Tobacco: Never Alcohol Use Standard Drinks/Week Comments No 0 (1 standard drink = 0.6 oz pur e alcohol) Comments No Sex and Gender Information Value Date Recorded Sex Assigned at Not on file 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 Gender Identity Not on file Sexual Orientation Not on file documented as of this encounter Plan of Treatment Not on file documented as of this encounter Results * HEMOGLOBIN A1C W/ ESTIMATED GLUCOSE (10/17/2020 9:20 AM CDT) HGB-A1C 5.6 4.0 - 6.0 % 10/17/2020 10:18 AM CDT [facility] Est Average Glucose 114.0 mg/dL 10/17/2020 10:18 AM CDT [facility] Blood Venipuncture / Unknown 10/17/2020 9:20 AM CDT 10/17/2020 10:02 AM CDT Narrative [facility] - 10/17/2020 10:18 AM CDT HEMOGLOBIN A1C: DIABETIC PATIENTS: WELL-CONTROLLED: ?? 6.2 - 7.0 INTERMEDIATE WELL-CONTROLLED: ??7.0 - 9.0 POORLY-CONTROLLED: ??>9.0 Jonelle Elam MD CHEMISTRY ORDERABLES Fin al Result Performing Organization Address City/[facility]/ZIP Co de Phone Number [facility] [address] [place] [address] * (ABNORMAL) IRON (FE) (10/17/2020 9:20 AM CDT) IRON 27.90(L) 37 - 145 mcg/dL 10/17/2020 10:38 AM CDT [facility] Blood Venipuncture / Unknown 10/17/2020 9:20 AM CDT 10/17/2020 10:13 AM CDT Jonelle Elam MD CHEMISTRY ORDERABLES Fin al Result Performing Organization Address City/[facility]/ZIP Co de Phone Number [facility] [address] [place] [address] * THYROID STIMULATING HORMONE (TSH) (10/17/2020 9:20 AM CDT) TSH 1.950 0.270 - 4.200 mIU/L 10/17/2020 10:38 AM CDT [facility] Blood Venipuncture / Unknown 10/17/2020 9:20 AM CDT 10/17/2020 10:13 AM CDT Jonelle Elam MD CHEMISTRY ORDERABLES Fin al Result Performing Organization Address City/[facility] Co de Phone Number [facility] [address] [place] [address] * (ABNORMAL) VITAMIN D, 25 HYDROXY TOTAL (10/17/2020 9:20 AM CDT) VITAMIN D, 25 HYDROX 20(L) >=30 ng/mL 10/17/2020 10:49 AM CDT [facility] Blood Venipuncture / Unknown 10/17/2020 9:20 AM CDT 10/17/2020 10:14 AM CDT Narrative [facility] - 10/17/2020 10:49 AM CDT Published reference ranges for Vitamin D vary depending on time and place and method of testing, and on patient's age, sex, ethnicity and levels of other measured analytes such as parathormone, calcium and phosphorus. ??The result should be evaluated in conjunction with clinical findings and suspicions. [place] [employer] and [employer] Clinical Practice Guidelines: Status Vitamin D levels (ng/mL) Deficient <=20 At risk of inadequacy 21-29 Sufficient 30-100 Centers of Disease Control and Prevention Guidelines: Status Vitamin D levels (ng/mL) Deficient <13 At risk of inadequacy 13-19 Sufficient 20-50 Possibly harmful >50 References: [place] [employer], 2010 Dietary reference intakes for calcium and vitamin D. [place]: ??The National Academies Press. Nicki M, Jeffry N, David DONOVAN, et al., Evaluation, treatment, and prevention of Vitamin D deficiency: an Endocrinology Clinical Practice Guideline. JCEM 2011 96: 7 2274-4941. Adelita A, Dago C, Raimundo D, et al., Vitamin D Status: ??[place], 2000- 1005, [facility]LY [facility] data brief, no. 59, MD [place]: ??National Center for Health Statistics. 2011. Jonelle Elam MD CHEMISTRY ORDERABLES Fin al Result Performing Organization Address City/[facility] Co de Phone Number [facility] [address] [place] [address] documented in this encounter Visit Diagnoses Diagnosis Morbid obesity (HCC)- Primary Morbid obesity documented in this encounter Care Teams Optician Relationship Specialty Start Date End Date Jonelle Elam MD [address] [place] [id number] PCP - General Family Medicine 02/22/15 documented as of this encounter
--- OUTSIDE RECORDS SUMMARY | 2024-04-14 17:46 | XMS_ITS | Encounter Summary ---
Author Organization [facility] Address [address] [place] [address] Care Team Providers Care Research Affiliate Name Role Phone Jonelle Elam MD Primary Care Provider [phone] Reason for Referral * Radiology Services (Routine) - Closed Specialty Diagnoses / Procedures Referred By Ritika bonner Referred To Contact MRI Diagnoses Liver mass Procedures MRI ABDOMEN WWO CONTRAST Edward Alvarado MD [address] [place] [address] [facility] [address] [place] [address] Referral ID Status Reason Start Date Expiration Date Visits Re quested Visits Authorized [id number] Closed 01/23/2019 03/08/2019 1 1 Encounter Details Date Type Department Care Team (Late st Contact Info) Description 01/08/2019 Orders Only [facility]R [address] [place] [address] Linda Blackman, RN Liver mass Social History Tobacco Use Types Packs/Day Years Used Date Smoking Tobacco: Never Assessed Sex and Gender Information Value Date Recorded Sex Assigned at Not on file Gender Identity Not on file Sexual Orientation Not on file documented as of this encounter Plan of Treatment Not on file documented as of this encounter Results * MRI ABDOMEN WWO CONTRAST (02/14/2019 8:08 PM CARDIOVASCULAR OR NURSE) Anatomical Region Laterality Modality Abdomen Magnetic Resonan ce 02/15/2019 8:54 AM CARDIOVASCULAR OR NURSE Impressions 02/15/2019 10:09 AM CARDIOVASCULAR OR NURSE IMPRESSION: 1. Two observations in hepatic segment 7 and 8 measuring up to 4.3 cm demonstrating hyperintensity on hepatobiliary phase sequences , consistent with focal nodular hyperplasia (FNH). 2. Mild diffuse hepatic steatosis. Dictated By Adam Lewis M.D. (resident services coordinator) I, Dr. KENNY COVARRUBIAS M.D. have personally reviewed and interpreted this examination/study. This report was electronically signed by KENNY COVARRUBIAS M.D. ??on 02/15/2019 10:09 AM . Narrative 02/15/2019 10:09 AM CARDIOVASCULAR OR NURSE EXAMINATION: Magnetic resonance imaging (MRI) of the abdomen without and with contrast HISTORY: 23-year-old female with incidental finding of multiple hepatic masses on prior CT in 2014. Follow-up imaging demonstrated interval growth. TECHNIQUE: MRI of the abdomen was performed prior to and following the uneventful administration of 10 mL of Eovist intravenous gadolinium contrast according to standard protocol. COMPARISON: CT abdomen pelvis with contrast dated 12/18/2018 FINDINGS: The visible lung bases are clear. Decreased signal on opposed phase sequences is consistent with mild diffuse hepatic steatosis. - An arterially enhancing observation is seen in hepatic segments 7/8 measuring 4.3 x 3.6 cm in maximum axial plane (series 8 image 19). This lesion is hyperintense to hepatic parenchyma on hepatobiliary phase images, with subtle central stellate hypointensity. -A second, subtly, arterially enhancing observation in hepatic segment 8 is also hyperintense to hepatic parenchyma on hepatobiliary phase images. This observation measures 1.6 x 2.2 cm (series 22 image 43). Central stellate hypointensity is seen on hepatobiliary phase. Subtle arterial hypoenhancement in hepatic segment 2 along the falciform ligament is consistent with focal fatty infiltration. The remaining liver enhances homogenously. The hepatic contours are smooth. The intrahepatic and extrahepatic bile ducts are nondilated. Hepatic arterial anatomy is conventional. The portal vein and its major branches are patent. The hepatic veins are patent. The gallbladder, spleen, pancreas, and adrenal glands appear normal. A simple renal cyst is seen in the right superior pole. The kidneys otherwise enhance symmetrically without focal mass/lesion or hydronephrosis/hydroureter. No free intraperitoneal fluid is identified. Bone marrow signal is normal. Procedure Note Kenny Covarrubias MD - 02/15/2019 EXAMINATION: Magnetic resonance imaging (MRI) of the abdomen without and with contrast HISTORY: 23-year-old female with incidental finding of multiple hepatic masses on prior CT in 2014. Follow-up imaging demonstrated interval growth. TECHNIQUE: MRI of the abdomen was performed prior to and following the uneventful administration of 10 mL of Eovist intravenous gadolinium contrast according to standard protocol. COMPARISON: CT abdomen pelvis with contrast dated 12/18/2018 FINDINGS: The visible lung bases are clear. Decreased signal on opposed phase sequences is consistent with mild diffuse hepatic steatosis. - An arterially enhancing observation is seen in hepatic segments 7/8 measuring 4.3 x 3.6 cm in maximum axial plane (series 8 image 19). This lesion is hyperintense to hepatic parenchyma on hepatobiliary phase images, with subtle central stellate hypointensity. -A second, subtly, arterially enhancing observation in hepatic segment 8 is also hyperintense to hepatic parenchyma on hepatobiliary phaseimages. This observation measures 1.6 x 2.2 cm (series 22 image 43). Central stellate hypointensity is seen on hepatobiliary phase. Subtle arterial hypoenhancement in hepatic segment 2 along the falciform ligament is consistent with focal fatty infiltration. The remainingliver enhances homogenously. The hepatic contours are smooth. The intrahepatic and extrahepatic bile ducts are nondilated. Hepatic arterial anatomy is conventional. The portal vein and its major branches are patent. The hepatic veins are patent. The gallbladder, spleen, pancreas, and adrenal glands appear normal. A simple renal cyst is seen in the right superior pole. The kidneys otherwise enhance symmetrically without focal mass/lesion or hydronephrosis/hydroureter. No free intraperitoneal fluid is identified. Bone marrow signal is normal. IMPRESSION: 1. Two observations in hepatic segment 7 and 8 measuring up to 4.3 cm demonstrating hyperintensity on hepatobiliary phase sequences ,consistent with focal nodular hyperplasia (FNH). 2. Mild diffuse hepatic steatosis. Dictated By Adam Lewis M.D. (resident services coordinator) I, Dr. KENNY COVARRUBIAS M.D. have personally reviewed and interpreted this examination/study. This report was electronically signed by KENNY COVARRUBIAS M.D. on 02/15/2019 10:09 AM . Edward Alvarado MD MR ORDERABLES documented in this encounter Visit Diagnoses Diagnosis Liver mass- Primary Unspecified disorder of liver documented in this encounter Care Teams Research Affiliate Relationship Specialty Start Date End Date Jonelle Elam MD [address] [place] [address] [place] [phone] PCP - General Family Medicine 10/24/18 documented as of this encounter
--- OUTSIDE RECORDS SUMMARY | 2024-04-14 17:46 | XMS_ITS | Encounter Summary ---
Author Organization [facility] Address [address] [place] [address] Care Team Providers Care Automation Machine Builder Name Role Phone Jonelle Elam MD Primary Care Provider Reason for Referral * Radiology Services (Routine) - Closed Specialty Diagnoses / Procedures Referred By Contac t Referred To Contact Diagnoses Fatty liver Procedures PROC FIBROSCAN Tejas Jamil MD [address] [address] Referral ID Status Reason Start Date Expiration Date Visits Re quested Visits Authorized [id number] Closed 11/05/2018 05/04/2019 1 1 Encounter Details Date Type Department Care Team (Late st Contact Info) Description 11/05/2018 Orders Only [facility] - [address] [place] [phone] Giselle Sierra, RN Fatty liver Social History Tobacco Use Types Packs/Day Years Used Date Smoking Tobacco: Never Assessed Sex and Gender Information Value Date Recorded Sex Assigned at Not on file Gender Identity Not on file Sexual Orientation Not on file documented as of this encounter Plan of Treatment Not on file documented as of this encounter Results * PA LIVER ELASTOGRAPHY (11/05/2018 2:54 PM CDT) Narrative [...] change as additional supporting data becomes available. [email or web address] Tejas Jamil MD PROCEDURE/ MINOR SURGICAL ORDERABLES documented in this encounter Visit Diagnoses Diagnosis Fatty liver- Primary Other chronic nonalcoholic liver disease Fatty liver- Primary Other chronic nonalcoholic liver disease documented in this encounter Care Teams Automation Machine Builder Relationship Specialty Start Date End Date Jonelle Elam MD [address] [place] [address] [place] [phone] PCP - General Family Medicine 10/24/18 documented as of this encounter
--- OUTSIDE RECORDS SUMMARY | 2024-04-14 17:46 | XMS_ITS | Encounter Summary ---
Author Organization [facility] Address [address] [place] [address] Phone Care Team Providers Care Education Department Registrar Name Role Phone Jonelle Elam MD Primary Care Provider + Reason for Visit * Reason Onset Date Comments ED Follow-up 05/05/2020 ED call back Encounter Details Date Type Department Care Team (Late st Contact Info) Description 05/05/2020 Telephone [facility] Emergency [address] [place] [address] Yoli Pardo RN [place] ED Follow-up (ED call back) Social History Tobacco Use Types Packs/Day Years Used Date Smoking Tobacco: Never Smokeless Tobacco: Never Alcohol Use Standard Drinks/Week Comments No 0 (1 standard drink = 0.6 oz pur e alcohol) Comments No Sex and Gender Information Value Date Recorded Sex Assigned at Not on file 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 No / Unsure 05/04/2020 1:32 PM BRAIDED BAND ASSEMBLER documented as of this encounter Miscellaneous Notes * Telephone Encounter - Yoli Pardo RN - 05/05/2020 11:19 AM CST Attempted to contact patient for ED call back. No answer. DED BAND ASSEMBLER documented in this encounter Plan of Treatment Not on file documented as of this encounter Visit Diagnoses Not on filedocumented in this encounter Additional Health Concerns Infection Onset Date Last Indicated Resolved Time COVID - 19 Confirmed 05/04/2020 05/04/2020 021 12:18 AM BRAIDED BAND ASSEMBLER documented as of this encounter Care Teams Education Department Registrar Relationship Specialty Start Date End Date Jonelle Elam MD [address] [place] [id number] PCP - General Family Medicine 02/22/15 documented as of this encounter
--- OUTSIDE RECORDS SUMMARY | 2024-04-14 17:46 | XMS_ITS | Encounter Summary ---
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
--- OUTSIDE RECORDS SUMMARY | 2024-04-14 17:46 | XMS_ITS | Encounter Summary ---
Author Organization [facility] Address [address] [place] [address] Care Team Providers Care Door Cutter Name Role Phone Jonelle Elam MD Primary Care Provider [phone] Reason for Visit * Reason Comments Abnormal Liver liver lesion ORANTES Encounter Details Date Type Department Care Team (Late st Contact Info) Description 01/02/2019 10:40 AM CDT Office Visit [facility] [address] [facility], [place] [address] Lindsay Acuna MD [address] [address] Focal nodular hyperplasia of liver (Primary Dx); Liver lesion Social History Tobacco Use Types Packs/Day Years Used Date Smoking Tobacco: Never Assessed Sex and Gender Information Value Date Recorded Sex Assigned at Not on file Gender Identity Not on file Sexual Orientation Not on file documented as of this encounter Progress Notes * Raiza Sow MD - 01/02/2019 10:40 AM CDT Liver Tumor Clinic Note The patient is a very pleasant 23 year old year old patient, who was recently found to have Multiple liver lesion(s) in segment/s right lobe compatible with 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 The main complaint at the time of diagnosis was diverticulitis started 3 months ago. The patient Liver Ds symptoms none PMH Patient Active Problem List ?? Diagnosis Date Noted ??? Cataracts, bilateral 01/02/2019 ? Priority: Not Prioritized ??? NAFLD (nonalcoholic fatty liver disease) 01/02/2019 ? Priority: Not Prioritized ??? Anxiety 01/02/2019 ? Priority: Not Prioritized ??? GERD (gastroesophageal reflux disease) 01/02/2019 ? Priority: Not Prioritized ? Current medications are listed at the end of this note. PSH Tonsillectomy Cataract removal colonoscopy Current Outpatient Medications Medication Sig ??? cyclobenzaprine [...] No current facility-administered medications for this visit. SH Not a smoker nor drinks regularly There were no vitals taken for this visit. PHYSICAL EXAMINATION: ABDOMEN: soft, nontender and nondistended LABORATORY RESULTS: IMAGING: MRI images were not available for review MRI abd w/wo contrast 11/03/18: Liver is normal size with no hepatic surface nodularity. 4.1 cm lesion in the hepatic dome as well as a 3.2 cm lesion in right hepatic lobe. -CT a/p with contrast 12/18/18: Homogenously enhancing liver mass. Mild sigmoid diverticulosis. ?? This example would display results for the last three orders with an external procedure ID of [id number]. The patient underwent the following imaging studies: MRI Lesion Number: 2 Lymph Nodes > 1 cm: no Extra Hepatic Involvement: no } ASSESSMENT AND PLAN: This is a 23 year old patient with a recent diagnosis of a liver lesion. Patient doesn't have cirrhosis however appears to have ORANTES. Unfortunately the MRI is not available to review, discussed with the patient according to the read the radiologist favors an FNH.Will need to get MRI images and review in tumor board and then will discuss next step with patient . Discussed losing weight and low Carbs diet for possible ORANTES Raiza Sow MD 01/02/2019 1:11 PM documented in this encounter Plan of Treatment Not on file documented as of this encounter Visit Diagnoses Diagnosis Focal nodular hyperplasia of liver- Primary Other specified disorders of liver Liver lesion Other specified disorders of liver documented in this encounter Care Teams Door Cutter Relationship Specialty Start Date End Date Jonelle Elam MD [address] [place] [address] [place] [address] PCP - General Family Medicine 10/24/18 documented as of this encounter
--- OUTSIDE RECORDS SUMMARY | 2024-04-14 17:46 | XMS_ITS | Encounter Summary ---
Author Organization [facility] Address [address] [place] [address] Phone Care Team Providers Care Recruiting And Selection Consultant Name Role Phone Jonelle Elam MD Primary Care Provider + Reason for Referral * Radiology Services (Routine) - Closed Specialty Diagnoses / Procedures Referred By Contac t Referred To Contact Radiology Diagnoses Abnormal findings on diagnostic imaging of other specified body structures Procedures MRI ABDOMEN W/WO CONTRAST Antonette Roy APRN, COURT TRANSCRIBER [address] [place] [address] Phone: tel: fax: Referral ID Status Reason Start Date Expiration Date Visits Re quested Visits Authorized [id number] Closed 12/03/2020 1 1 Encounter Details Date Type Department Care Team (Latest Contact Info) Description 12/03/2020 Transcribe Orders [facility] Central Scheduling [address] [place] [address] Antonette Roy APRN, COURT TRANSCRIBER [address] [place] [address] Abnormal findings on diagnostic imaging of other specified body structures (Primary Dx) Social History Tobacco Use Types Packs/Day Years Used Date Smoking Tobacco: Never Smokeless Tobacco: Never Alcohol Use Standard Drinks/Week Comments No 0 (1 standard drink = 0.6 oz pur e alcohol) Comments No Sex and Gender Information Value Date Recorded Sex Assigned at Not on file Legal Sex Female 10:30 PM WOOD ROUTER HAND Gender Identity Not on file Sexual Orientation Not on file documented as of this encounter Plan of Treatment Scheduled Orders Name Type Priority Associated Diagnoses Orde r Schedule MRI ABDOMEN W/WO CONTRAST Imaging Routine Abnormal findings on diagnostic imaging of other specified body structures Expected: 12/03/2020, Expires: 12/03/2021 documented as of this encounter Visit Diagnoses Diagnosis Abnormal findings on diagnostic imaging of other specified body structures- Primary documented in this encounter Care Teams Recruiting And Selection Consultant Relationship Specialty Start Date End Date Jonelle Elam MD [address] [place] [address] PCP - General Family Medicine 02/22/15 documented as of this encounter
--- OUTSIDE RECORDS SUMMARY | 2024-04-14 17:46 | XMS_ITS | Encounter Summary ---
Author Organization [facility] Address [address] [place] [address] Care Team Providers Care Lacing Cutter Name Role Phone Jonelle Elam MD Primary Care Provider [phone] Manju Rainey DO Unavailable Skylar Canales PA-C Unavailable [phone] Encounter Details Date Type Department Care Team (Late st Contact Info) Description 01/08/2019 Telephone [facility] IVR [address] [place] [phone] Arianna Lane RN Social History Tobacco Use Types Packs/Day Years Used Date Smoking Tobacco: Never Assessed Sex and Gender Information Value Date Recorded Sex Assigned at Not on file Gender Identity Not on file Sexual Orientation Not on file documented as of this encounter Progress Notes * Arianna Lane RN - 01/08/2019 1:22 PM CDT Spoke with pt attempting to get previous MRI records; called both hospitals pt said it could have been done at, but neither hospital ([place] or [place]) has record of MRI there. Advised pt we wouldbe calling her to schedule a new MRI, pt understands and is ok with this. documented in this encounter Plan of Treatment Not on file documented as of this encounter Visit Diagnoses Not on filedocumented in this encounter Care Teams Lacing Cutter Relationship Specialty Start Date End Date Jonelle Elam MD [address] [place] [address] PCP - General Family Medicine 10/24/18 Manju Rainey DO [address] [place] [address] Bariatrics 08/11/20 Skylar Canales PA-C [address] [facility] [address] [place] [address] Physician Noc Analyst Nephrology 03/04/22 documented as of this encounter
--- OUTSIDE RECORDS SUMMARY | 2024-04-14 17:46 | XMS_ITS | Encounter Summary ---
Author Organization [facility] Address [address] [place] [address] Care Team Providers Care Certified Adapted Physical Educator Name Role Phone Jonelle Elam MD Primary Care Provider [phone] Encounter Details Date Type Department Care Team (Late st Contact Info) Description 01/02/2019 12:28 PM CDT - 01/02/2019 11:59 PM T Hospital Encounter [facility] DRAW STATION [address] [place] [phone] Maribel Kitchen MD [address] [place] [phone] Discharge Disposition: Home or Self Care Social [...] Procedure Name Priority Date/Time Associated Diagnosis Comments MITOCHONDRIAL ANTIBODY SCREEN Routine 01/02/2019 12:36 PM CDT Nonalcoholic fatty liver disease Morbid obesity (HCC) Liver lesion [id number] BLOOD PHENOTYPING PANEL Routine 01/02/2019 12:36 PM CDT Nonalcoholic fatty liver disease Morbid obesity (HCC) Liver lesion MEHDI BLOOD SCREEN W/REFLEX TITER Routine 01/02/2019 12:36 PM CDT Nonalcoholic fatty liver disease Morbid obesity (HCC) Liver lesion TRANSFERRIN Routine 01/02/2019 12:36 PM CDT Nonalcoholic fatty liver disease Morbid obesity (HCC) Liver lesion CERULOPLASMIN Routine 01/02/2019 12:36 PM CDT Nonalcoholic fatty liver disease Morbid obesity (HCC) Liver lesion SMOOTH MUSCLE ANTIBODY Routine 9 12:36 PM CDT Nonalcoholic fatty liver disease Morbid obesity (HCC) Liver lesion HEPATIC FUNCTION PANEL Routine 9 12:36 PM CDT Nonalcoholic fatty liver disease Morbid obesity (HCC) Liver lesion HEPATITIS B SURFACE ANTIBODY Routine 01/02/2019 12:36 PM CDT Nonalcoholic fatty liver disease Morbid obesity (HCC) Liver lesion HEPATITIS B SURFACE ANTIGEN W RFLX CONFIRMATION Routine 01/02/2019 12:36 PM CDT Nonalcoholic fatty liver disease Morbid obesity (HCC) Liver lesion HEPATITIS C ANTIBODY Routine 01/02/2019 12:36 PM CDT Nonalcoholic fatty liver disease Morbid obesity (HCC) Liver lesion HEPATITIS A ANTIBODY Routine 01/02/2019 12:36 PM CDT Nonalcoholic fatty liver disease Morbid obesity (HCC) Liver lesion documented in this encounter Results * HEPATITIS B SURFACE ANTIGEN W RFLX CONFIRMATION (01/02/2019 12:36 PM CDT) Pathologist [facility] Hepatitis B Virus Surface Antigen Non-reacti ve Non-reacti ve 01/02/2019 1:33 PM CDT [facility] Blood BLOOD SPECIMEN / Unknown Lab Venipuncture / Unknown 01/02/2019 12:36 PM CDT 01/02/2019 12:50 PM CDT Maribel Kitchen MD LAB - CHEMISTRY KACY HICKS Performing Organization Address [facility] Co de Phone Number [address] [phone] * (ABNORMAL) TRANSFERRIN (01/02/2019 12:36 PM CDT) Pathologist [facility] Transferrin 319 174 - 382 mg/dL 01/02/2019 2:17 PM CDT [facility] Transferrin Saturation % 6(L) 16 - 50 % 01/02/2019 2:17 PM CDT [facility] Blood BLOOD SPECIMEN / Unknown Lab Venipuncture / Unknown 01/02/2019 12:36 PM CDT 01/02/2019 12:50 PM CDT Maribel Kitchen MD LAB - CHEMISTRY KACY HICKS Performing Organization Address City/[facility]/ZIP Co de Phone Number [address] [phone] * SMOOTH MUSCLE ANTIBODY (01/02/2019 12:36 PM CDT) Pathologist [facility] F-Actin Antibody IgG 7.5 0.0 - 19.9 Units 01/04/2019 2:12 PM CDT [facility] Comment: F-Actin Antibody Numeric Result Interpretation: ?<20.0 Units: ??Negative ?20.0 - 30.0 Units: ??Weak Positive ?>30.0 Units: ??Moderate to Strong Positive ? Blood BLOOD SPECIMEN / Unknown Lab Venipuncture / Unknown 01/02/2019 12:36 PM CDT 01/02/2019 12:50 PM CDT Maribel Kitchen MD LAB - SEROLOGY ORDER KAMRON Performing Organization Address [facility]/ZIP Co de Phone Number [address] [phone] * MITOCHONDRIAL ANTIBODY SCREEN (01/02/2019 12:36 PM CDT) Pathologist [facility] Mitochondrial M2 Antibody 2.3 0.0 - 20.0 Units 01/04/2019 2:12 PM CDT [facility] Comment: Mitochondrial M2 Antibody Numeric Result Interpretation: ?<20.1 Units: ??Negative ?20.1 - 24.9 Units: ??Equivocal ?>24.9 Units: ??Positive ? Blood BLOOD SPECIMEN / Unknown Lab Venipuncture / Unknown 01/02/2019 12:36 PM CDT 01/02/2019 12:50 PM CDT Maribel Kitchen MD LAB - CHEMISTRY ORDE RABCONSTANZA Performing Organization Address City/[facility]/ZIP Co de Phone Number [address] [phone] * HEPATITIS C ANTIBODY (01/02/2019 12:36 PM CDT) Hepatitis C Antibody Non-react elizabeth Non-reac tive 01/02/2019 1:33 PM CDT [facility] Comment: Hepatitis C Antibody screen indicates no [...] - CHEMISTRY KACY HICKS Performing Organization Address [facility] Co de Phone Number [facility] [address] [place] [address], [facility] [phone] * HEPATITIS B SURFACE ANTIBODY (01/02/2019 12:36 PM CDT) Hepatitis B Virus Surface Antibody Non-react elizabeth Non-react elizabeth 01/02/2019 1:33 PM CDT [facility] Comment: < 8 mIU/mL Hepatitis B surface Antibody (HBsAb). Nonreactive for HBsAb - individual is considered not immune to Hepatitis B Virus infection. Hepatitis B Surface Antibody Quantitative 1.0 <8.0 mIU/mL 01/02/2019 1:33 PM CDT [facility] Comment: Hepatitis B Surface Antibody Numeric Result Interpretation: ? Nonreactive: ?<8.0 mIU/mL ? Indeterminate: ??8.0 - 12.0 mIU/mL ? Reactive: ?>12.0 mIU/mL ? Blood BLOOD SPECIMEN / Unknown Lab Venipuncture / Unknown 01/02/2019 12:36 PM CDT 01/02/2019 12:50 PM CDT Maribel Kitchen MD LAB - CHEMISTRY KACY HICKS Performing Organization Address [facility]/[place] [address], [facility] [phone] * (ABNORMAL) HEPATITIS A ANTIBODY (01/02/2019 12:36 PM CDT) Hepatitis A Virus Antibody Total Positive(A ) Negative 01/03/2019 9:10 AM CDT [facility] ([facility]) Blood BLOOD SPECIMEN / Unknown Lab Venipuncture / Unknown 01/02/2019 12:36 PM CDT 01/02/2019 12:49 PM CDT Narrative [facility] ([facility]) - 01/03/2019 9:10 AM CDT Performed at: ??01 - [facility] [address] [facility], [place], [place] ??[id number] Plumber And Tinner: Juliocesar Sanders PhD, Phone: ??[phone] Maribel Kitchen MD LAB - CHEMISTRY KACY HICKS [facility] ([facility]) [address] [place] [address] * CERULOPLASMIN (01/02/2019 12:36 PM CDT) Pathologist [facility] Ceruloplasmin 42 20 - 60 mg/dL 01/02/2019 1:13 PM CDT [facility] Blood BLOOD SPECIMEN / Unknown Lab Venipuncture / Unknown 01/02/2019 12:36 PM CDT 01/02/2019 12:50 PM CDT Maribel Kitchen MD LAB - CHEMISTRY KACY HICKS [facility] [address] [phone] * MEHDI BLOOD SCREEN W/REFLEX TITER (01/02/2019 12:36 PM CDT) Pathologist [facility] MEHDI Negative 01/03/2019 5:08 PM CDT [facility] ([facility]) Comment: ? Negative ?? <1:80 ? Borderline ??1:80 ? Positive ?? >1:80 Blood BLOOD SPECIMEN / Unknown Lab Venipuncture / Unknown 01/02/2019 12:36 PM CDT 01/02/2019 12:49 PM CDT [facility]ative [facility]) - 01/03/2019 5:08 PM CDT Performed at: ??01 - [facility] [address] [facility], [place], [place] ??[id number] Plumber And Tinner: Juliocesar Sanders PhD, Phone: ??[phone] Maribel Kitchen MD LAB - CHEMISTRY KACY HICKS [facility] ([facility]) [address] [place] [address], [facility] * [id number] BLOOD PHENOTYPING PANEL (01/02/2019 12:36 PM CDT) Ycgtf-5-Oiigbedxaw n 123 90 - 200 mg/dL 01/04/2019 4:09 PM CDT [facility] ([facility]) Comment: Effective January 28, 2019 Risae-0-Yscqswsagjc, ??Serum reference interval will be changing to: [...] PM CDT 01/02/2019 12:50 PM CDT Narrative [facility] ([facility]) - 01/04/2019 4:09 PM CDT Performed at: ??01 - [facility] [address] [place], [place] ??[id number] Plumber And Tinner: Juliocesar Sanders PhD, Phone: ??[phone] Performed at: ??02 - [facility] [address] ??[id number] Plumber And Tinner: Hari Smith MD, Phone: ??[phone] Maribel Kitchen MD LAB - CHEMISTRY KACY HICKS [facility] ([facility]) [address] [place] [address], [facility] * HEPATIC FUNCTION PANEL (01/02/2019 12:36 PM CDT) Protein Total 8.1 6.0 - 8.3 g/dL 019 1:12 PM CDT [facility] Albumin 4.5 3.4 - 5.0 g/dL 01/02/2019 1:12 PM CDT [facility] Bilirubin Total 0.8 0.2 - 1.2 mg/dL 05/2018 1:12 PM CDT [facility] Bilirubin Conjugated 0.3 0.0 - 0.5 mg/dL 01/02/2019 1:12 PM T [facility] Bilirubin Unconjugated 0.5 Unconjugated Bilirubin is a calculated value: Reference ranges have not been established. mg/dL 01/02/2019 1:12 PM CDT [facility] Alkaline Phosphatase 71 40 - 150 Units/L 01/02/2019 1:12 PM CDT [facility] ALT 24 0 - 55 Units/L 01/02/2019 1:12 PM CDT [facility] AST 20 5 - 34 Units/L 01/02/2019 1:12 PM T [facility] Albumin/Globulin Ratio 1.3 1.1 - 2.3 01/02/2019 1:12 PM CDT [facility] Blood BLOOD SPECIMEN / Unknown Lab Venipuncture / Unknown 01/02/2019 12:36 PM CDT 01/02/2019 12:48 PM CDT Maribel Kitchen MD LAB - CHEMISTRY KACY HICKS [facility] [address] [phone] documented in this encounter Visit Diagnoses Diagnosis Nonalcoholic fatty liver disease Other chronic nonalcoholic liver disease Morbid obesity (HCC) Morbid obesity Liver lesion Other specified disorders of liver documented in this encounter Care Teams Certified Adapted Physical Educator Relationship Specialty Start Date End Date Jonelle Elam MD [address] [place] [address] [place] [phone] PCP - General Family Medicine 10/24/18 documented as of this encounter
--- OUTSIDE RECORDS SUMMARY | 2024-04-14 17:46 | XMS_ITS | Encounter Summary ---
Author Organization [employer] Care Team Providers Care Grievance Coordinator Name Role Phone Jonelle Elam MD Primary Care Provider + Encounter Details Date Type Department Care Team (Latest Contact Info) Description 03/09/2020 Travel Social History Tobacco Use Types Packs/Day Years Used Date Smoking Tobacco: Never Smokeless Tobacco: Never Alcohol Use Standard Drinks/Week Comments No 0 (1 standard drink = 0.6 oz pur e alcohol) Comments No Sex and Gender Information Value Date Recorded Sex Assigned at Not on file Legal Sex Female 10:30 PM SETTER MACHINE Gender Identity Not on file Sexual Orientation Not on file COVID-19 Exposure Response Date Recorded In the last month, have you been in contact with someone who was confirmed or suspected to have Coronavirus / COVID-19? No / Unsure 03/09/2020 1:10 PM SETTER MACHINE documented as of this encounter Plan of Treatment Not on file documented as of this encounter Visit Diagnoses Not on filedocumented in this encounter Care Teams Grievance Coordinator Relationship Specialty Start Date End Date Jonelle Elam MD [address] [place] [address] PCP - General Family Medicine 02/22/15 documented as of this encounter
--- OUTSIDE RECORDS SUMMARY | 2024-04-14 17:46 | XMS_ITS | Encounter Summary ---
Author Organization [employer] Care Team Providers Care Information Security Analyst Name Role Phone Jonelle Elam MD Primary Care Provider + Encounter Details Date Type Department Care Team (Latest Contact Info) Description 06/29/2021 Travel Social History Tobacco Use Types Packs/Day Years Used Date Smoking Tobacco: Never Smokeless Tobacco: Never Alcohol Use Standard Drinks/Week Comments No 0 (1 standard drink = 0.6 oz pur e alcohol) Comments No Sex and Gender Information Value Date Recorded Sex Assigned at Not on file Legal Sex Female 10:30 PM DRUM REEL CUTTER Gender Identity Not on file Sexual Orientation [...] on filedocumented in this encounter Care Teams Information Security Analyst Relationship Specialty Start Date End Date Jonelle Elam MD [address] [place] [address] PCP - General Family Medicine 02/22/15 documented as of this encounter
--- OUTSIDE RECORDS SUMMARY | 2024-04-14 17:46 | XMS_ITS | Encounter Summary ---
Author Organization [employer] Care Team Providers Care Compress Machine Operator Name Role Phone Jonelle Elam MD Primary Care Provider + Encounter Details Date Type Department Care Team (Latest Contact Info) Description 12/15/2020 Travel Social History Tobacco Use Types Packs/Day Years Used Date Smoking Tobacco: Never Smokeless Tobacco: Never Alcohol Use Standard Drinks/Week Comments No 0 (1 standard drink = 0.6 oz pur e alcohol) Comments No Sex and Gender Information Value Date Recorded Sex Assigned at Not on file Legal Sex Female 10:30 PM SWATCH CUTTER Gender Identity Not on file Sexual Orientation Not on file COVID-19 Exposure Response Date Recorded In the last month, have you been in contact with someone who was confirmed or suspected to have Coronavirus / COVID-19? No / Unsure 12/15/2020 4:44 PM CDT documented as of this encounter Plan of Treatment Not on file documented as of this encounter Visit Diagnoses Not on filedocumented in this encounter Care Teams Compress Machine Operator Relationship Specialty Start Date End Date Jonelle Elam MD [address] [place] [address] PCP - General Family Medicine 02/22/15 documented as of this encounter
--- OUTSIDE RECORDS SUMMARY | 2024-04-14 17:46 | XMS_ITS | Encounter Summary ---
Author Organization [facility] Address [address] [place] [address] Care Team Providers Care Packing Room Worker Name Role Phone Jonelle Elam MD Primary Care Provider [phone] Reason for Visit * Reason Comments Results Encounter Details Date Type Department Care Team (Late st Contact Info) Description 01/04/2019 Telephone [facility] - [address] [phone] Leo Quijano, RN Results Social History Tobacco Use Types Packs/Day Years Used Date Smoking Tobacco: Never Assessed Sex and Gender Information Value Date Recorded Sex Assigned at Not on file Gender Identity Not on file Sexual Orientation Not on file documented as of this encounter Miscellaneous Notes * Telephone Encounter - Leo Quijano, RN - 01/04/2019 8:37 AM CDT Spoke with pt re: need for HEP B vaccination to provide immunity and how this impacts her current situation. Pt verbalizes understanding of this issue and will obtain vaccination. documented in this encounter Plan of Treatment Not on file documented as of this encounter Visit Diagnoses Not on filedocumented in this encounter Care Teams Packing Room Worker Relationship Specialty Start Date End Date Jonelle Elam MD [address] [place] [address] [place] [phone] PCP - General Family Medicine 10/24/18 documented as of this encounter
--- OUTSIDE RECORDS SUMMARY | 2024-04-14 17:46 | XMS_ITS | Encounter Summary ---
Author Organization [facility] Care Team Providers Care Survey Field Technician Name Role Phone Jonelle Elam MD Primary Care Provider + Encounter Details Date Type Department Care Team (Latest Contact Info) Description 05/04/2020 Travel Social History Tobacco Use Types Packs/Day Years Used Date Smoking Tobacco: Never Smokeless Tobacco: Never Alcohol Use Standard Drinks/Week Comments No 0 (1 standard drink = 0.6 oz pur e alcohol) Comments No Sex and Gender Information Value Date Recorded Sex Assigned at Not on file Legal Sex Female 10:30 PM SUPERVISOR TRAVEL INFORMATION CENTER Gender Identity Not on file Sexual Orientation Not on file COVID-19 Exposure Response Date Recorded In the last month, have you been in contact with someone who was confirmed or suspected to have Coronavirus / COVID-19? No / Unsure 05/04/2020 1:32 PM SUPERVISOR TRAVEL INFORMATION CENTER documented as of this encounter Plan of Treatment Not on file documented as of this encounter Visit Diagnoses Not on filedocumented in this encounter Additional Health Concerns Infection Onset Date Last Indicated Resolved Time COVID - 19 Confirmed 05/04/2020 05/04/2020 021 12:18 AM SUPERVISOR TRAVEL INFORMATION CENTER documented as of this encounter Care Teams Survey Field Technician Relationship Specialty Start Date End Date Jonelle Elam MD [address] [place] [phone] PCP - General Family Medicine 02/22/15 documented as of this encounter
--- OUTSIDE RECORDS SUMMARY | 2024-04-14 17:46 | XMS_ITS | Clinical Summary ---
Author Organization [facility] Address [address] [place] [address] Phone Care Team Providers Care Transition Rn Name Role Phone Jonelle Elam MD Primary Care Provider + Allergies Active Allergy Reactions Criticality Noted Date Comments Cephalexin Rash Medium 02/22/2015 Labetalol Hcl Other (see Comments) High 02/22/2015 Shortness of breath, chest jpain Levofloxacin Hives,Other (see Comments) High 10/12/2018 Chest pain, shortness of breath and pain and weakness in legs Medications polyethylene glycol (GLYCOLAX, MIRALAX) Pack Take 1 Packet by mouth daily. Dissolve in 4-8 oz of liquid. 90 Packet 3 9 Active raNITIdine (ZANTAC) 150 MG Tablet Take 1 Tab by mouth 2 times daily. 180 Tab 1 9 Active famotidine (PEPCID) 20 MG Tablet Take 1 Tab by mouth 2 times daily. 90 Tab 3 9 Active ondansetron (ZOFRAN-ODT) 4 MG TABLET DISPERSIBLE Take 1 Tab by mouth every 8 hours as needed for Nausea - 1st line. 15 Tab 1 Active triamcinolone (ARISTOCORT) 0.5 % Cream Apply 1 Applicator 2 times daily. Application Site: left arm 30 g 1 Active Family History Medical History Relation Name Comments Cancer Father Chronic Obstructive Pulmonary Disease Father Diabetes Father Obstructive Sleep Apnea Father Cancer Maternal Grandfather Cancer Maternal Grandmother Cancer Mother skin Hypertension Mother Other-comment Mother fibromyalgia Cancer Paternal Grandfather Cancer Paternal Grandmother Relation Name Status Comments Father Alive Maternal Grandfather Maternal Grandmother Mother Alive Paternal Grandfather Paternal Grandmother Social History Tobacco Use Types Packs/Day Years Used Date Smoking Tobacco: Never Smokeless Tobacco: Never Alcohol Use Standard Drinks/Week Comments No 0 (1 standard drink = 0.6 oz pur e alcohol) Comments No Sex and Gender Information Value Date Recorded Sex Assigned at Not on file Legal Sex Female 10:30 PM WARE FINISHER Gender Identity Not on file Sexual Orientation [...] Mass Index 61.46 06/29/2021 11:52 AM CDT Plan of Treatment Health Maintenance Due Date Last Done Comments Influenza Immunization (#1) 12/03/202312/04, 01/03/2019, 01/26/2018, Additional history exists SARS-COV-2 Immunization ( season) 2023 02/04/2021 Respiratory Syncytial Virus (RSV) Immunization (Adult) (1 - 1-dose 75+ series) 2069 Hepatitis B Immunization Completed 996, 1994, 1994 Human Papillomavirus (HPV) Immunization Discontinued 01/08/2008, 02/12/2007, 11/27/2006 Meningococcal Immunization (ACWY) Aged Out 10/27/2008 No longer eligible based on patient's age to complete this topic Hepatitis C Virus (HCV) Screening Completed 10/12/2018 DTaP/Tdap/Td Immunization Discontinued 2019, 08/01/2018, 10/27/2008, Additional history exists TdaP Immunization Completed 10/19/2019, , 10/27/2008 Pneumococcal Immunization Combined Aged Out No longer eligible based on patient's age to complete this topic Rotavirus Immunization Aged Out No lo nger eligible based on patient's age to complete this topic Procedures Procedure Name Priority Date/Time Associated Diagnosis Comments HEPATITIS PANEL ACUTE (AHP) Routine 10/12/2018 9:56 AM CDT Fatty liver from Last 3 Months or Most Recently Relevant to Health Maintenance Results * HEPATITIS PANEL ACUTE (AHP) (10/12/2018 9:56 AM CDT) HEPATITIS A IGM ANTIBODY NON DETECTED NON DETECTED 10/12/2018 9:44 PM CDT [facility] Comment: IGM Antibodies to HAV not detected. ??Does not exclude early acute or recovered HAV infection. HEP B CORE AB (IGM) NON DETECTED NON DETECTED 10/12/2018 9:44 PM CDT [facility] Comment: IGM anti-HBC not detected. ??Does not exclude the possibility of exposure to or infection with HBV. HEPATITIS B SURFACE ANTIGEN NON DETECTED NON DETECTED 10/12/2018 9:44 PM CDT [facility] Comment: A nonreactive test result does not exclude the possibility of exposure to or infection with Hepatitis B virus. A nonreactive test result in individuals with prior exposure to hepatitis B may be due to antigen levels below the detection limit of this assay or lack of antigen reactivity to the antibodies in this assay. hepatitis C antibody 0.07 <1 S/CO 10/12/2018 9:44 PM CDT [facility] Comment: Signal/Cutoff ratio ??< 0.79 is Nondetected Signal/Cutoff ratio 0.80-0.99 is Grayzone Signal/Cutoff ratio > 0.99 is Detected Supplemental assays are recommended if signal/cutoff ratio is >/=1.00. ??Signal/cutoff ratio result >/= 5.00 is 97% predictive of positivity for recombinant immunoblot assay (RIBA) and will be reported to the [place] Department of Public Health as required. Blood specimen (specimen) Venipuncture / Unknown 10/12/2018 9:56 AM CDT 10/12/2018 11:20 AM CDT us Charles Amezcua MD HEMATOLOGY ORDERABLES F inal Result [facility] [address] [place] [phone], [place] from Last 3 Months or Most Recently Relevant to Health Maintenance Insurance [place] Care Teams Transition Rn Relationship Specialty Start Date End Date Jonelle Elam MD [address] [place] [phone] PCP - General Family Medicine 02/22/15
--- OUTSIDE RECORDS SUMMARY | 2024-04-14 17:46 | XMS_ITS | Encounter Summary ---
Author Organization [facility] Care Team Providers Care Work Study Student Name Role Phone Jonelle Elam MD Primary Care Provider + Encounter Details Date Type Department Care Team (Latest Contact Info) Description 05/01/2020 Travel Social History Tobacco Use Types Packs/Day Years Used Date Smoking Tobacco: Never Smokeless Tobacco: Never Alcohol Use Standard Drinks/Week Comments No 0 (1 standard drink = 0.6 oz pur e alcohol) Comments No Sex and Gender Information Value Date Recorded Sex Assigned at Not on file Legal Sex Female 10:30 PM SPORTS TRAINER Gender Identity Not on file Sexual Orientation Not on file COVID-19 Exposure Response Date Recorded In the last month, have you been in contact with someone who was confirmed or suspected to have Coronavirus / COVID-19? No / Unsure 05/01/2020 4:12 PM SPORTS TRAINER documented as of this encounter Plan of Treatment Not on file documented as of this encounter Visit Diagnoses Not on filedocumented in this encounter Care Teams Work Study Student Relationship Specialty Start Date End Date Jonelle Elam MD [address] [place] [id number] PCP - General Family Medicine 02/22/15 documented as of this encounter
--- OUTSIDE RECORDS SUMMARY | 2024-04-14 17:46 | XMS_ITS | Encounter Summary ---
Author Organization [facility] Address [address] [place] [address] Phone Care Team Providers Care Vest Front Presser Name Role Phone Jonelle Elam MD Primary Care Provider + Encounter Details Date Type Department Care Team (Late st Contact Info) Description 03/09/[address] [facility] Admitting [address] [place] [phone] Manju Rainey DO [address] [place] [id number] Morbid obesity (HCC) (Primary Dx) Social History Tobacco Use Types Packs/Day Years Used Date Smoking Tobacco: Never Smokeless Tobacco: Never Alcohol Use Standard Drinks/Week Comments No 0 (1 standard drink = 0.6 oz pur e alcohol) Comments No Sex and Gender Information Value Date Recorded Sex Assigned at Not on file Legal Sex Female 10:30 PM APPEALS WRITER Gender Identity Not on file Sexual Orientation Not on file documented as of this encounter Plan of Treatment Not on file documented as of this encounter Results * HEMOGLOBIN A1C W/ ESTIMATED GLUCOSE (03/09/2020 1:18 PM APPEALS WRITER) HGB-A1C 5.6 4.0 - 6.0 % 03/09/2020 2:05 PM APPEALS WRITER [facility] Est Average Glucose 114.0 mg/dL 03/09/2020 2:05 PM APPEALS WRITER [facility] Blood Venipuncture / Unknown 03/09/2020 1:18 PM APPEALS WRITER 03/09/2020 1:31 PM APPEALS WRITER Narrative [facility] - 03/09/2020 2:05 PM APPEALS WRITER HEMOGLOBIN A1C: DIABETIC PATIENTS: WELL-CONTROLLED: ?? 6.2 - 7.0 INTERMEDIATE WELL-CONTROLLED: ??7.0 - 9.0 POORLY-CONTROLLED: ??>9.0 Manju Rainey DO CHEMISTRY ORDERABLES Final Resu lt [facility] [address] [place] [address] * IRON (FE) (03/09/2020 1:18 PM APPEALS WRITER) IRON 67.44 37 - 145 mcg/dL 03/09/2020 2:05 PM APPEALS WRITER [facility] Blood Venipuncture / Unknown 03/09/2020 1:18 PM APPEALS WRITER 03/09/2020 1:31 PM APPEALS WRITER Manju Rainey DO CHEMISTRY ORDERABLES Final Resu lt [facility] [address] [place] [address] * (ABNORMAL) LIPID PANEL (03/09/2020 1:18 PM APPEALS WRITER) CHOLESTEROL 203(H) <=200 mg/dL 03/09/2020 2:05 PM APPEALS WRITER [facility] TRIGLYCERIDES 166(H) <150 mg/dL 03/09/2020 2:05 PM APPEALS WRITER [facility] HDL CHOLESTEROL 43.7 >40 mg/dL 0 2:05 PM APPEALS WRITER [facility] LDL 126 5 - 130 mg/dL 03/09/2020 2:05 PM APPEALS WRITER [facility] VLDL 33 5 - 55 mg/dL 03/09/2020 2:05 PM APPEALS WRITER [facility] CHOL/HDL RATIO 4.6(H) 0.0 - 4.4 03/09/2020 2:05 PM APPEALS WRITER [facility] NON-HDL CHOLESTEROL 159.3(H) <130 mg/dL 03/09/2020 2:05 PM APPEALS WRITER [facility] IS THE PATIENT REQUIRED TO BE FASTING? No 03/09/2020 2:05 PM APPEALS WRITER [facility] Blood Venipuncture / Unknown 03/09/2020 1:18 PM APPEALS WRITER 03/09/2020 1:31 PM APPEALS WRITER Manju Rainey DO CHEMISTRY ORDERABLES Final Resu lt Performing Organization Address City/[facility]/ZIP Co de Phone Number [facility] [address] [place] [address] * THYROID STIMULATING HORMONE (TSH) (03/09/2020 1:18 PM APPEALS WRITER) TSH 0.978 0.270 - 4.200 mIU/L 03/09/2020 2:05 PM APPEALS WRITER [facility] Blood Venipuncture / Unknown 03/09/2020 1:18 PM APPEALS WRITER 03/09/2020 1:31 PM APPEALS WRITER Manju Rainey DO CHEMISTRY ORDERABLES Final Resu lt Performing Organization Address City/[facility]/ZIP Co de Phone Number [facility] [address] [place] [address] * (ABNORMAL) VITAMIN D, 25 HYDROXY TOTAL (03/09/2020 1:18 PM APPEALS WRITER) VITAMIN D, 25 HYDROX 16(L) >=30 ng/mL 03/09/2020 2:14 PM APPEALS WRITER [facility] Blood Venipuncture / Unknown 03/09/2020 1:18 PM APPEALS WRITER 03/09/2020 1:31 PM APPEALS WRITER Narrative [facility] - 03/09/2020 2:14 PM APPEALS WRITER Published reference ranges for Vitamin D vary depending on time and place and method of testing, and on patient's age, sex, ethnicity and levels of other measured analytes such as parathormone, calcium and phosphorus. ??The result should be evaluated in conjunction with clinical findings and suspicions. [place] [employer] and [employer] Clinical Practice Guidelines: Status Vitamin D levels (ng/mL) Deficient <=20 At risk of inadequacy 21-29 Sufficient 30-100 Centers of Disease Control and Prevention Guidelines: Status Vitamin D levels (ng/mL) Deficient <13 At risk of inadequacy 13-19 Sufficient 20-50 Possibly harmful >50 References: [place] [employer], 2010 Dietary reference intakes for calcium and vitamin D. [place]: ??The National Academies Press. Nicki M, Jeffry N, David DONOVAN, et al., Evaluation, treatment, and prevention of Vitamin D deficiency: an Endocrinology Clinical Practice Guideline. JCEM 2011 96: 7 1417-2926. Adelita A, Dago C, Raimundo Noel, et al., Vitamin D Status: ??[place], 2000- 6, [facility] data brief, no. 59, MD [place]: ??National Center for Health Statistics. 2010. Manju Rainey DO CHEMISTRY ORDERABLES Final Resu lt [facility] [address] [place] [address] documented in this encounter Visit Diagnoses Diagnosis Morbid obesity (HCC)- Primary Morbid obesity documented in this encounter Care Teams Vest Front Presser Relationship Specialty Start Date End Date Jonelle Elam MD [address] [place] [phone] PCP - General Family Medicine 02/22/15 documented as of this encounter
--- OUTSIDE RECORDS SUMMARY | 2024-04-14 17:46 | XMS_ITS | Encounter Summary ---
Author Organization [facility] Address [address] [place] [address] [place] [address] Phone Care Team Providers Care Automotive Parts Counterperson Name Role Phone Jonelle Elam MD Primary Care Provider + Encounter Details Date Type Department Care Team (Latest Contact Info) Description 04/30/2020 [facility]cribe [facility] Ad[facility] [address] [place] [phone] Maribel Kitchen MD [address] [facility] [address] [place] [address] Liver lesion (Primary Dx); Focal nodular hyperplasia determined by liver biopsy; NAFLD (nonalcoholic fatty liver disease); Morbid obesity (HCC) Social History Tobacco Use Types Packs/Day Years Used Date Smoking Tobacco: Never Smokeless Tobacco: Never Alcohol Use Standard Drinks/Week Comments No 0 (1 standard drink = 0.6 oz pur e alcohol) Comments No Sex and Gender Information Value Date Recorded Sex Assigned at Not on file Legal Sex Female 10:30 PM ARCHITECT Gender Identity Not on file Sexual Orientation Not on file COVID-19 Exposure Response Date Recorded In the last month, have you been in contact with someone who was confirmed or suspected to have Coronavirus / COVID-19? No / Unsure 05/01/2020 4:12 PM ARCHITECT documented as of this encounter Plan of Treatment Not on file documented as of this encounter Results * HEPATIC FUNCTION PANEL (05/01/2020 4:25 PM ARCHITECT) T BILI 0.4 <=1.2 mg/dL 05/01/2020 4:56 PM ARCHITECT [facility] BILIRUBIN,DIRECT <0.3 <=0.3 mg/dL 05/01/2020 4:56 PM ARCHITECT [facility] ALKALINE PHOSPHATASE 70 35 - 105 U/L 05/01/2020 4:56 PM ARCHITECT [facility] SGOT (AST) 23 <=32 U/L 05/01/2020 4:56 PM ARCHITECT [facility] SGPT (ALT) 32 <=41 U/L 05/01/2020 4:56 PM ARCHITECT [facility] TOTAL PROTEIN 7.0 6.0 - 8.3 g/dL 05/01/2020 4:56 PM ARCHITECT [facility] ALBUMIN 4.4 3.5 - 5.2 g/dL 05/01/2020 4:56 PM ARCHITECT [facility] Comment: The colormetric methods used for the determination of Albumin may lead to falsely elevated test results in patients suffering from renal failure or insufficiency due to interference with other proteins. Blood Venipuncture / Unknown 05/01/2020 4:25 PM ARCHITECT 05/01/2020 4:32 PM ARCHITECT Maribel Kitchen MD CHEMISTRY ORDERABLES Final Re sult [facility] [address] [place] [address] documented in this encounter Visit Diagnoses Diagnosis Liver lesion- Primary Other specified disorders of liver Focal nodular hyperplasia determined by liver biopsy NAFLD (nonalcoholic fatty liver disease) Other chronic nonalcoholic liver disease Morbid obesity (HCC) Morbid obesity documented in this encounter Additional Health Concerns Infection Onset Date Last Indicated Resolved Time COVID - 19 Confirmed 05/04/2020 05/04/2020 021 12:18 AM ARCHITECT documented as of this encounter Care Teams Automotive Parts Counterperson Relationship Specialty Start Date End Date Jonelle Elam MD [address] [place] [phone] PCP - General Family Medicine 02/22/15 documented as of this encounter
--- OUTSIDE RECORDS SUMMARY | 2024-04-14 17:46 | XMS_ITS | Encounter Summary ---
Author Organization [facility] Address [address] [place] [address] Care Team Providers Care Social Worker Psychiatric Name Role Phone Jonelle Elam MD Primary Care Provider Encounter Details Date Type Department Care Team (Late st Contact Info) Description 01/02/2019 9:20 AM CDT Office Visit [facility] [place] [id number] Lindsay Acuna MD [address] [address] Maribel Kitchen MD [address] [place] [address] Liver lesion (Primary Dx); Nonalcoholic fatty liver disease; Morbid obesity (HCC) Social History Tobacco Use Types Packs/Day Years Used Date Smoking Tobacco: Never Assessed Sex and Gender Information Value Date Recorded Sex Assigned at Not on file Gender Identity Not on file Sexual Orientation Not on file documented as of this encounter Last Filed Vital Signs Vital Sign Reading Time Taken Comments Blood Pressure 125/87 01/02/2019 9:50 AM CDT Pulse 86 01/02/2019 9:50 AM CDT Temperature 36.7 ??C (98.1 ??F) 01/02/2019 9:50 AM CD T Respiratory Rate 20 01/02/2019 9:50 AM CDT Oxygen Saturation 100% 01/02/2019 9:50 AM CDT Inhaled Oxygen Concentration - - Weight 130 kg (286 lb 9.6 oz) 01/02/2019 9:50 AM CDT Height 154.9 cm (5' 1 ) 01/02/2019 9:50 AM CDT Body Mass Index 54.15 01/02/2019 9:50 AM CDT documented in this encounter Patient Instructions * Patient Instructions* Maribel Kitchen MD - 01/02/2019 11:42 AM CDT Thank you for entrusting your healthcare to the physicians and other specialists at the [facility] Gastroenterology and Hepatology clinic today. Following your visit, you may receive a [employer] survey via email or U.S. Mail. We encourage youto respond to this confidential survey about your care. Your feedback helps us to provide quality service at every visit. Thank you for your help in making our practice meet higher expectations. Contact information: To reach the clinic please call (8 am to noon, 1 to 4:30 pm ). ??? Press 1 to make schedule or cancel an appointment ??? Press 2 for pharmacy refills ?? Press 3 to speak with a nurse regarding a change in your condition. Many times your nurse may be busy seeing patients in clinic. In order to meet your needs timely we have implemented a nurse triage line to take your calls. We are closed from 12-1 for lunch After hours please call (hospital main number), ask the jumpbasting machine operator to call the gastroenterology fellow human services professional. Emergency; call 911 or go to your closest emergency room. For more information, below are some useful websites: More information about us and our services can be found on our websites at www.[email or web address]/[email or web address].xml and www.[email or web address].com/en-[email or web address]/ourservices/medicalservices/pages/digestivediseasesdis orders.aspx Hospital information can be found at: [email or web address] Information about other [facility] providers can be found at: www.[email or web address] Information about the [facility], a dpu-bww-gmcdwj foundation supporting liver disease research by your doctors and researchers at [facility], can be found at: www.[facility].org You can sign up to receive emails with updates on current GI topics called the Digestive Health Showcase. These come out twice a week from one of our professional organizations, the [employer]. Go to this website to sign up: [email or web address] IMPORTANT The following information and instructions are from your visit today: ?? Followup in 3-4 months ?? Labs today at [facility] documented in this encounter Progress Notes * Maribel Kitchen MD - 01/02/2019 10:52 AM CDT [facility] Maribel Kitchen MD No chief complaint on file. Deya Campbell is a 23 year old female who is presenting today for probably NAFLD and liver tumor. She was diagnosed with NAFLD with fibroscan. She has started to exercise more, 10,000 steps/day andhas cut out fast food in her diet. She has cut out the sugar sweetened beverages. She has lost 20 lbs since September. Denies injection/intranasal drugs. She has multiple professional tattoos. Denies prior blood transfusions. Denies family history of liver disease. Denies prior history of jaundice or acute hepatitis.She was only on control for 6 months. Past Medical History: I updated the electronic medical records of any updates in patients medical, social, and family hx. Patient Active Problem List Diagnosis Date Noted ??? Cataracts, bilateral 01/02/2019 Priority: Not Prioritized ??? NAFLD (nonalcoholic fatty liver disease) 01/02/2019 Priority: Not Prioritized ??? Anxiety 01/02/2019 Priority: Not Prioritized ??? GERD (gastroesophageal reflux disease) 01/02/2019 Priority: Not Prioritized Current medications are listed at the end of this note. Surgery: Tonsillectomy Cataract removal colonoscopy Family history: No family history of liver disease Social History Socioeconomic History ??? Marital status: [...] file Gets together: Not on file Attends hindu service: Not on file Active member of [...] Narrative ??? Not on file Review of Systems: Constitutional: negative for fevers, chills, fatigue Eyes: positive for visual disturbance ENT: negative for hearing changes Respiratory: negative for shortness of breath Cardiovascular: negative for chest pain or palpitations Gastrointestinal: positive for nausea Genitourinary:negative for dysuria Hematologic/lymphatic: negative for easy bruising, bleeding Musculoskeletal: negative for myalgias, arthralgias Neurological: positive for headaches Exam: BP 125/87 Pulse 86 Temp 98.1 ??F (36.7 ??C) (Oral) Resp 20 Ht 1.549 m (5' 1 ) Wt 130 kg (286 lb 9.6oz) SpO2 100% BMI 54.15 kg/m2 General appearance: normal, alert, no distress, appears stated age Eyes: conjunctivae/corneas clear. EOMIB Nose: Nares normal. Septum midline. Mucosa normal. Throat: Lips, mucosa, and tongue normal. Neck: supple, symmetrical, trachea midline Lungs: clear to auscultation bilaterally Heart: RRR, normal S1 and S2, no murmur Abdomen: soft, no masses palpable, non-tender, non-distended, bowel sounds normal Extremities: no ulcers, well perfused, no edema Skin: No rashes or lesions, no jaundice Neuro: Appropriate, oriented x 3 Relevant Laboratories: No results for input(s): SODIUM, POTASSIUM, CHLORIDE, CO2, BUN, CREATININE, GLUCOSE, CALCIUM, ALT, ALKPHOS, AST, TBIL, TPROT, GFR, EGFR, EGFRAFR in the last 10832 hours. Invalid input(s): ABL No results for input(s): BUN, CREATININE, NA, POTASSIUM, K, CL, CO2, GLU, CALCIUM, PROT, ALB, TBILI, ALKPHOS, ALT, AST, ANIONGAP, BCR, OSMOLALITY, AGRATIO, EGFR, EGFRAFR, GFR in the last 28912 hours. No results for input(s): WBC, HGB, HEMOGLOBIN, HEMATOCRIT, HCT, PLATELET, PLTCOUNT in the last 79086 hours. No results for input(s): INR in the last 51843 hours. Last Endoscopies: Last Imaging: -MRI abd w/wo contrast 11/03/18: Liver is normal size with no hepatic surface nodularity. 4.1 cm lesion in the hepatic dome as well as a 3.2 cm lesion in right hepatic lobe. -CT a/p with contrast 12/18/18: Homogenously enhancing liver mass. Mild sigmoid diverticulosis. Other Relevant Studies: Fibroscan 11/05/18: Liver stiffness 7.6 kPa, CAP 396 Assessment: 1. NAFLD, based on fibroscan 11/2018 2. Liver lesion seen on imaging 3. Morbid obesity Recommendations: 1. I have ordered workup to rule out other causes of chronic liver disease. 2. IR and transplant surgery has seen the patient and believe that the lesion is benign. We will review OSH imaging at tumor conference. 3. Patient counseled at length regarding dietary changes and exercise targeting a sustained 7% to 10% weight loss. ??Treatment should be focused on optimizing control of the metabolic syndrome, whichshould reduce risk of cardiovascular disease and severity of liver disease. 4. Plan to repeat Fibroscan in Nov 2019. I have asked her to return for a follow up visit in 3 months. Maribel Kitchen MD [employer] Division of Gastroenterology and Hepatology CC: Jonelle Elam MD No ref. provider found Orders Placed This Encounter ??? HEPATIC FUNCTION PANEL Standing Status: Future Standing Expiration Date: 02/01/2019 ??? [id number] BLOOD PHENOTYPING PANEL Standing Status: Future Standing Expiration Date: 02/01/2019 ??? MEHDI BLOOD SCREEN W/REFLEX TITER Standing Status: Future Standing Expiration Date: 02/01/2019 ??? CERULOPLASMIN Standing Status: Future Standing Expiration Date: 02/01/2019 ??? HEPATITIS A ANTIBODY Standing Status: Future Standing Expiration Date: 02/01/2019 ??? HEPATITIS B SURFACE ANTIBODY Standing Status: Future Standing Expiration Date: 02/01/2019 ??? HEPATITIS C ANTIBODY Standing Status: Future Standing Expiration Date: 02/01/2019 ??? MITOCHONDRIAL ANTIBODY SCREEN Standing Status: Future Standing Expiration Date: 02/01/2019 ??? SMOOTH MUSCLE ANTIBODY Standing Status: Future Standing Expiration Date: 02/01/2019 ??? TRANSFERRIN Standing Status: Future Standing Expiration Date: 02/01/2019 ??? HEPATITIS B SURFACE ANTIGEN W RFLX CONFIRMATION Standing Status: Future Standing Expiration Date: 02/01/2019 Current Outpatient Medications Medication Sig ??? cyclobenzaprine [...] documented as of this encounter Results * HEPATITIS B SURFACE ANTIGEN W RFLX CONFIRMATION (01/02/2019 12:36 PM CDT) Pathologist [facility] Hepatitis B Virus Surface Antigen Non-reacti ve Non-reacti ve 01/02/2019 1:33 PM CDT [facility] Blood BLOOD SPECIMEN / Unknown Lab Venipuncture / Unknown 01/02/2019 12:36 PM CDT 01/02/2019 12:50 PM CDT Maribel Kitchen MD LAB - CHEMISTRY KACY HICKS Performing Organization Address [facility]/ZIP Co de Phone Number [address] [phone] * (ABNORMAL) TRANSFERRIN (01/02/2019 12:36 PM CDT) [facility] Transferrin 319 174 - 382 mg/dL 01/02/2019 2:17 PM CDT [facility] Transferrin Saturation % 6(L) 16 - 50 % 01/02/2019 2:17 PM CDT [facility] Blood BLOOD SPECIMEN / Unknown Lab Venipuncture / Unknown 01/02/2019 12:36 PM CDT 01/02/2019 12:50 PM CDT Maribel Kitchen MD LAB - CHEMISTRY KACY HICKS Performing Organization Address [facility]/ZIP Co de Phone Number [address] [phone] * SMOOTH MUSCLE ANTIBODY (01/02/2019 12:36 PM CDT) [facility] F-Actin Antibody IgG 7.5 0.0 - 19.9 Units 01/04/2019 2:12 PM CDT [facility] Comment: F-Actin Antibody Numeric Result Interpretation: ?<20.0 Units: ??Negative ?20.0 - 30.0 Units: ??Weak Positive ?>30.0 Units: ??Moderate to Strong Positive ? Blood BLOOD SPECIMEN / Unknown Lab Venipuncture / Unknown 01/02/2019 12:36 PM CDT 01/02/2019 12:50 PM CDT Maribel Kitchen MD LAB - SEROLOGY ORDER KAMRON Performing Organization Address [facility] Co de Phone Number [address] [phone] * MITOCHONDRIAL ANTIBODY SCREEN (01/02/2019 12:36 PM CDT) Mitochondrial M2 Antibody 2.3 0.0 - 20.0 Units 01/04/2019 2:12 PM CDT [facility] Comment: Mitochondrial M2 Antibody Numeric Result Interpretation: ?<20.1 Units: ??Negative ?20.1 - 24.9 Units: ??Equivocal ?>24.9 Units: ??Positive ? Blood BLOOD SPECIMEN / Unknown Lab Venipuncture / Unknown 01/02/2019 12:36 PM CDT 01/02/2019 12:50 PM CDT Maribel Kitchen MD LAB - CHEMISTRY ORDE RABLES Performing Organization Address [facility]/ZIP Co de Phone Number [address] [phone] * HEPATITIS C ANTIBODY (01/02/2019 12:36 PM CDT) Hepatitis C Antibody Non-react elizabeth Non-reac tive 01/02/2019 1:33 PM CDT [facility] Comment: Hepatitis C Antibody screen indicates no [...] - CHEMISTRY KACY HICKS Performing Organization Address [facility] de Phone Number [address] [phone] * HEPATITIS B SURFACE ANTIBODY (01/02/2019 12:36 PM CDT) Hepatitis B Virus Surface Antibody Non-react elizabeth Non-react elizabeth 01/02/2019 1:33 PM CDT [facility] Comment: < 8 mIU/mL Hepatitis B surface Antibody (HBsAb). Nonreactive for HBsAb - individual is considered not immune to Hepatitis B Virus infection. Hepatitis B Surface Antibody Quantitative 1.0 <8.0 mIU/mL 01/02/2019 1:33 PM CDT [facility] Comment: Hepatitis B Surface Antibody Numeric Result Interpretation: ? Nonreactive: ?<8.0 mIU/mL ? Indeterminate: ??8.0 - 12.0 mIU/mL ? Reactive: ?>12.0 mIU/mL ? Blood BLOOD SPECIMEN / Unknown Lab Venipuncture / Unknown 01/02/2019 12:36 PM CDT 01/02/2019 12:50 PM CDT Maribel Kitchen MD LAB - CHEMISTRY KACY HICKS Performing Organization Address [facility] [place] [address], [facility] [phone] * (ABNORMAL) HEPATITIS A ANTIBODY (01/02/2019 12:36 PM CDT) [facility] Hepatitis A Virus Antibody Total Positive(A ) Negative 01/03/2019 9:10 AM CDT [facility] ([facility]) Blood BLOOD SPECIMEN / Unknown Lab Venipuncture / Unknown 01/02/2019 12:36 PM CDT 01/02/2019 12:49 PM CDT [facility]ative [facility]) - 01/03/2019 9:10 AM CDT Performed at: ??01 - [facility] [address] [place], [place] ??[id number] Sales Project Engineer: Juliocesar Sanders PhD, Phone: ??[phone] Maribel Kitchen MD LAB - CHEMISTRY KACY HICKS Performing Organization Address [facility]/ZIP Co de Phone Number [facility] ([facility]) [address] [place] [address] * CERULOPLASMIN (01/02/2019 12:36 PM CDT) [facility] Ceruloplasmin 42 20 - 60 mg/dL 01/02/2019 1:13 PM CDT [facility] Blood BLOOD SPECIMEN / Unknown Lab Venipuncture / Unknown 01/02/2019 12:36 PM CDT 01/02/2019 12:50 PM CDT Maribel Kitchen MD LAB - CHEMISTRY KACY HICKS Performing Organization Address [facility]/ZIP Co de Phone Number [address] [phone] * MEHDI BLOOD SCREEN W/REFLEX TITER (01/02/2019 12:36 PM CDT) [facility] MEHDI Negative 01/03/2019 5:08 PM CDT [facility] ([facility]) Comment: ? Negative ?? <1:80 ? Borderline ??1:80 ? Positive ?? >1:80 Blood BLOOD SPECIMEN / Unknown Lab Venipuncture / Unknown 01/02/2019 12:36 PM CDT 01/02/2019 12:49 PM CDT Narrative [facility] ([facility]) - 01/03/2019 5:08 PM CDT Performed at: ??01 - [facility] [address] [place], [place] ??[id number] Sales Project Engineer: Juliocesar Sanders PhD, Phone: ??[phone] Maribel Kitchen MD LAB - CHEMISTRY KACY HICKS Performing Organization Address City/State/[facility] Co de Phone Number [facility]) [address] [place] [address] * [id number] BLOOD PHENOTYPING PANEL (01/02/2019 12:36 PM CDT) Efsaw-7-Gdwdvgktpr n 123 90 - 200 mg/dL 01/04/2019 4:09 PM CDT [facility] ([facility]) Comment: Effective January 28, 2019 Mbhwm-8-[id number], ??Serum reference interval will be changing to: [...] CDT 01/02/2019 12:50 PM CDT Narrative [facility] ([facility]) - 01/04/2019 4:09 PM CDT Performed at: ??01 - [facility] [address] [place], [place] ??[id number] Sales Project Engineer: Juliocesar Sanders PhD, Phone: ??[phone] Performed at: ??02 - [facility] [address] ??[id number] Sales Project Engineer: Hari Smith MD, Phone: ??[phone] Maribel Kitchen MD LAB - CHEMISTRY KACY HICKS [facility] ([facility]) [address] [place] [address] * HEPATIC FUNCTION PANEL (01/02/2019 12:36 PM CDT) Protein Total 8.1 6.0 - 8.3 g/dL 019 1:12 PM CDT [facility] Albumin 4.5 3.4 - 5.0 g/dL 01/02/2019 1:12 PM CDT [facility] Bilirubin Total 0.8 0.2 - 1.2 mg/dL 05/2018 1:12 PM CDT [facility] Bilirubin Conjugated 0.3 0.0 - 0.5 mg/dL 01/02/2019 1:12 PM CDT [facility] Bilirubin Unconjugated 0.5 Unconjugated Bilirubin is a calculated value: Reference ranges have not been established. mg/dL 01/02/2019 1:12 PM CDT [facility] Alkaline Phosphatase 71 40 - 150 Units/L 01/02/2019 1:12 PM CDT [facility] ALT 24 0 - 55 Units/L 01/02/2019 1:12 PM CDT [facility] AST 20 5 - 34 Units/L 01/02/2019 1:12 PM CDT [facility] Albumin/Globulin Ratio 1.3 1.1 - 2.3 01/02/2019 1:12 PM CDT [facility] Blood BLOOD SPECIMEN / Unknown Lab Venipuncture / Unknown 01/02/2019 12:36 PM CDT 01/02/2019 12:48 PM CDT Maribel Kitchen MD LAB - CHEMISTRY KACY HICKS [facility] Organization Address City/State/ZIP Co de Phone Number [facility] [address] [place] [address] documented in this encounter Visit Diagnoses Diagnosis Liver lesion- Primary Other specified disorders of liver Nonalcoholic fatty liver disease Other chronic nonalcoholic liver disease Morbid obesity (HCC) Morbid obesity documented in this encounter Care Teams Social Worker Psychiatric Relationship Specialty Start Date End Date Jonelle Elam MD [address] [place] [id number] PCP - General Family Medicine 10/24/18 documented as of this encounter
--- OUTSIDE RECORDS SUMMARY | 2024-04-14 17:46 | XMS_ITS | Encounter Summary ---
Author Organization [facility] Address [address] [place] [address] Care Team Providers Care Stylist Apprentice Name Role Phone Jonelle Elam MD Primary Care Provider [phone] Encounter Details Date Type Department Care Team (Late st Contact Info) Description 11/05/2018 9:20 AM CDT Procedure visit [facility] GI [address] [place] [address] Unknown, Provider Tejas Jamil MD [address] OF GASTROENTEROLOGY [place], [place] [id number] Fatty liver Social History Tobacco Use Types Packs/Day Years Used Date Smoking Tobacco: Never Assessed Sex and Gender Information Value Date Recorded Sex Assigned at Not on file Gender Identity Not on file Sexual Orientation Not on file documented as of this encounter Last Filed Vital Signs Vital Sign Reading Time Taken Comments Blood Pressure 152/87 11/05/2018 9:28 AM CDT Pulse 88 11/05/2018 9:28 AM CDT Temperature 37 ??C (98.6 ??F) 11/05/2018 9:28 AM CDT Respiratory Rate 18 11/05/2018 9:28 AM CDT Oxygen Saturation 93% 11/05/2018 9:28 AM CDT Inhaled Oxygen Concentration - - Weight 128.5 kg (283 lb 4.8 oz) 11/05/2018 9:28 AM CDT Height 154.9 cm (5' 1 ) 11/05/2018 9:28 AM CDT Body Mass Index 53.53 11/05/2018 9:28 AM CDT documented in this encounter Progress Notes * Giselle Sierra, RN - 11/05/2018 9:32 AM CDT Diagnosis: Fatty Liver RN verified patient not , no implanted devices and NPO for prior 3 hours. Vital signs taken, procedure explained and consent signed. Date of Exam: 11/05/2018 Liver Stiffness: (E, kPa) median: 7.6 IQR (interquartile range): 1.0 IQR/Median% (ideally < 30%): 13 CAP (controlled attenuation parameter): 396 Technical Difficulty: None Ordering Provider: Charles Amezcua [...] change as additional supporting data becomes available. [email or web address] documented in this encounter Procedure Notes * Tejas Smith MD - 11/05/2018 2:53 PM CDTAssociated Order(s): PROC FIBROSCAN Procedure(s): TX LIVER ELASTOGRAPHY Pre-Procedure Diagnose(s): Fatty liver Diagnosis: Fatty Liver RN verified patient not , no implanted devices and NPO for prior 3 hours. Vital signs taken, procedure explained and consent signed. Date of Exam: 11/05/2018 Liver Stiffness: (E, kPa) median: 7.6 IQR (interquartile range): 1.0 IQR/Median% (ideally < 30%): 13 CAP (controlled attenuation parameter): 396 Technical Difficulty: None Ordering Provider: Charles Amezcua [...] change as additional supporting data becomes available. [email or web address] documented in this encounter Plan of Treatment Not on file documented as of this encounter Procedures Procedure Name Priority Date/Time Associated Diagnosis Comments TX LIVER ELASTOGRAPHY Routine 11/05/2018 2:54 PM CDT Fatty liver documented in this encounter Results * TX LIVER ELASTOGRAPHY (11/05/2018 2:54 PM CDT) Narrative [...] change as additional supporting data becomes available. [email or web address] Tejas Jamil MD PROCEDURE/ MINOR SURGICAL ORDERABLES documented in this encounter Visit Diagnoses Diagnosis Fatty liver- Primary Other chronic nonalcoholic liver disease documented in this encounter Care Teams Stylist Apprentice Relationship Specialty Start Date End Date Jonelle [place] MD [address] [place] [address] [place] [id number] PCP - General Family Medicine 10/24/18 documented as of this encounter
--- OUTSIDE RECORDS SUMMARY | 2024-04-14 17:46 | XMS_ITS | Encounter Summary ---
Author Organization [facility] Address [address] 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 Name Role Phone Jonelle Elam MD Primary Care Provider + Reason for Visit * Reason Comments Flank Pain Abdominal Pain Encounter Details Date Type Department Care Team (Late st Contact Info) Description 01/26/2020 8:25 PM CDT - 01/26/2020 10:57 PM CDT Emergency [facility] Emergency [address] [place] [address] Ellen Gordon PAC [address] [place] [address] Sundeep Damian MD [address] [place] [address] Abdominal pain, right lower quadrant Discharge Disposition: Discharged to home or Selfcare Social History Tobacco Use Types Packs/Day Years Used Date Smoking Tobacco: Never Smokeless Tobacco: Never Alcohol Use Standard Drinks/Week Comments No 0 (1 standard drink = 0.6 oz pur e alcohol) Comments No Sex and Gender Information Value Date Recorded Sex Assigned at Not on file 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 No / Unsure 01/26/2020 8:19 PM CDT documented as of this encounter Last Filed Vital Signs Vital Sign Reading Time Taken Comments Blood Pressure 103/83 01/26/2020 10:45 PM CDT Pulse 88 01/26/2020 10:45 PM CDT Temperature 37 ??C (98.6 ??F) 01/26/2020 8:24 PM CDT Respiratory Rate 24 01/26/2020 8:24 PM CDT Oxygen Saturation 99% 01/26/2020 10: 45 PM CDT Inhaled Oxygen Concentration - - Weight 144.5 kg (318 lb 9.6 oz) 01/26/2020 8:24 PM CDT Height 152.4 cm (5') 01/26/2020 8:24 PM CDT Body Mass Index 62.22 01/26/2020 8:24 PM CDT documented in this encounter Discharge Instructions * Discharge Instructions* Sundeep Damian - 01/26/2020 10:38 PM CDT Images from the original note were not included. Bladder Infection,??Female (Adult)?? Urine normally doesn't have any germs (bacteria) in it. But bacteria can get into the urinary tractfrom the skin around the rectum. Or they can travel in the blood from other parts of the body. Oncethey are in your urinary tract, they can cause infection in these areas: ?? The urethra (urethritis) ?? The bladder (cystitis) ?? The kidneys (pyelonephritis) The most common place for an infection is in the bladder. This is called a bladder infection. This is one of the most common infections in women. Most bladder infections are easily treated. They are not serious unless the infection spreads to the kidney. The terms bladder infection, UTI, and cystitis are often used to describe the same thing. But they are not always the same. Cystitis is an inflammation of the bladder. The??most common cause of cystitis is an infection. Symptoms The infection causes inflammation in the urethra and bladder. This causes many of the symptoms. Themost common symptoms of a bladder infection are: ?? Pain or burning when urinating ?? Having to urinate more often than normal ?? Urgent need to urinate ?? Only a small amount of urine comes out ?? Blood in urine ?? Belly (abdominal) discomfort. This is often in the lower belly above the pubic bone. ?? Cloudy urine ?? Strong- or bad-smelling urine ?? Unable to urinate (urinary retention) ?? Unable to hold urine in (urinary incontinence) ?? Fever ?? Loss of appetite ?? Confusion (in older adults) Causes Bladder infections are not contagious. You can't get one from someone else, from a toilet seat, or from sharing a bath. The most common cause of bladder infections is bacteria from the bowels. The bacteria get onto the skin around the opening of the urethra. From there, they can get into the urine. Then they travel upto the bladder, causing inflammation and infection. This often happens because of: ?? Wiping incorrectly after urinating. Always wipe from front to back. ?? Bowel incontinence ? Procedures such as having a catheter put in ?? Older age ?? Not emptying your bladder. This can give bacteria a chance to grow in your urine. ?? Fluid loss (dehydration) ?? Constipation ?? Having sex ?? Using a diaphragm for control?? Treatment Bladder infections are diagnosed by a urine test and urine culture. They are treated with antibiotics. They often??clear up quickly without problems. Treatment helps prevent a more serious kidney infection. Medicines Medicines can help in the treatment of a bladder infection: ?? Take antibiotics until they are used up, even if you feel better. It's important to finish them to make sure the infection has cleared. ?? You can use acetaminophen or ibuprofen for pain, fever, or discomfort, unless another medicine was prescribed. If you have long-term (chronic) liver or kidney disease, talk with your healthcare??provider before using??these medicines. Also talk with your provider if you've ever had a stomach ulcer or GI (gastrointestinal) bleeding, or are taking blood-thinner medicines. ?? If you are given??phenazopydridine to reduce burning with urination, it will make your urine a bright orange color. This can stain clothing. Care and prevention These self-care steps can help prevent future infections: ?? Drink plenty of fluids. This helps to prevent dehydration and flush out your bladder. Do this??unless you must restrict fluids for other health reasons, or your healthcare provider told you not to. ?? Clean yourself correctly after going to the bathroom. Wipe from front to back after using the toilet. This helps prevent the spread of bacteria. ?? Urinate more often. Don't try to hold urine in for a long time. ?? Wear loose-fitting clothes and cotton underwear. Don't wear tight-fitting pants. ?? Improve your diet and prevent constipation. Eat more fresh fruits and vegetables, and??fiber. Eat less junk foods and fatty foods. ?? Don't have sex until your symptoms are gone. ?? Don't have caffeine, alcohol, and spicy foods. These can irritate your bladder. ?? Urinate right after you have sex to flush out your bladder. ?? If you use control pills and have frequent bladder infections, discuss it with your healthcare provider. Follow-up care Call your healthcare provider if all symptoms are not gone after 3 days of treatment. This is especially important if you have repeat infections. If a culture was done, you will be told if your treatment needs to be changed. If directed, you cancall??to find out the results. If X-rays were done, you will be told if the results will affect your??treatment. Call 911 Call 911 if any of the following occur: ?? Trouble breathing ?? Hard to wake up or??confusion ?? Fainting (loss of consciousness) ?? Fast heart rate When to get medical advice Call your healthcare provider right away if any of these occur: ?? Fever of 100.4??F (38.0??C) or higher, or as directed by your healthcare provider ?? Symptoms are not better??after 3 days of treatment ?? Back or belly pain that gets worse ?? Repeated vomiting, or unable to keep medicine down ?? Weakness or dizziness ?? Vaginal discharge ?? Pain, redness, or swelling in the outer vaginal area (labia) [employer] last reviewed this educational content on 02/01/2019 ?? [id number] The [email or web address]. [address] [place] [address], [place] [address]. All rights reserved. This information is not intended as a substitute for professional medical care. Always follow your healthcare professional's instructions. CONTINUE ANY CURRENT MEDICATION. START ANTIBIOTIC TOMORROW FOR URINE INFECTION. STAY WELL HYDRATED. MAY TAKE 3 200 MG IBUPROFEN 3 TIMES DAILY NEEDED FOR BASELINE PAIN CONTROL. MAY ADD 2 TYLENOL 3 TIMES DAILY FOR ADDITIONAL PAIN RELIEF. CALL DOCTOR IF PERSISTENT OR WORSENING PAIN. documented in this encounter Medications at Time of Discharge famotidine (PEPCID) 20 MG Tablet Take 1 Tab by mouth 2 times daily. 90 Tab 3 03/12/2019 polyethylene glycol (GLYCOLAX, MIRALAX) Pack Take 1 Packet by mouth daily. Dissolve in 4-8 oz of liquid. 90 Packet 3 10/12/2018 raNITIdine (ZANTAC) 150 MG Tablet Take 1 Tab by mouth 2 times daily. 180 Tab 1 01/07/2019 sulfamethoxazole -trimethoprim (BACTRIM, SEPTRA) 400-80 MG Tablet Take 1 Tab by mouth 2 times daily for 5 days. FOR URINE INFECTION 10 Tab 01/27/2020 0 documented as of this encounter ED Notes * Shayna Power RN - 01/26/2020 10:54 PM CDT Patient discharged. Discharge instructions and patient educational material reviewed with patient; questions and concerns addressed; patient verbalizes understanding, using teach back. Patient was given 1 prescription. Patient ambulated out of ed with steady gait with all personal belongings. * Sundeep Damian - 01/26/2020 10:36 PM CDT Chief Complaint Patient presents with ??? Flank Pain ??? Abdominal Pain HPI Current Facility-Administered Medications Medication Dose Route Frequency Provider Last Rate Last Dose ??? sulfamethoxazole-trimethoprim DS (BACTRIM DS, SEPTRA DS) 800-160 MG per tablet 1 Tab 1 Tab OralOnce Sundeep Damian MD Current Outpatient Medications Medication Sig Dispense Refill ??? famotidine (PEPCID) 20 MG Tablet Take 1 Tab by mouth 2 times daily. 90 Tab 3 ??? polyethylene glycol (GLYCOLAX, MIRALAX) Pack Take [...] Positives Diagnosis Date ??? Diverticulitis ??? Hypertension Past Surgical History: Procedure Laterality Date ??? CATARACT REMOVAL WITH IMPLANT Left 2017 ??? COLONOSCOPY Left 10/31/2018 Procedure: COLONOSCOPY, NORMAL COLON EXAM, HEMORRHOIDS; Surgeon: Charles Amezcua MD; Location: [facility]; Service: Gastroenterology ??? MYRINGOTOMY ??? [...] History Narrative ??? Not on file BP 180/89 Pulse 88 Temp 98.6 ??F (37 ??C) (Temporal) Resp 24 Ht 5' (1.524 m) Wt 318 lb 9.6 oz (144.5 kg) LMP 12/09/2019 (Approximate) SpO2 100% BMI 62.22 kg/m?? Review of Systems Physical Exam Procedures Imaging Results CT ABDOMEN PELVIS W/ CONTRAST (Final result) Result time 01/26/20 21:55:49 Final result by Ephraim Hill MD (01/26/20 21:55:49) Impression: IMPRESSION: 1. Normal appendix. 2. Bilateral adnexal cysts with a small amount of free fluid. IUD in place. 3. Hepatic lesions as previously described on prior studies. Differential includes hepatic adenoma and focal nodular hyperplasia. Both entities are benign. Narrative: EXAM DESCRIPTION: CT ABDOMEN PELVIS W/ CONTRAST REASON FOR STUDY: RLQ abdominal pain, appendicitis suspected (Age > 14y) TECHNIQUE: CT scan of the abdomen and pelvis performed with intravenous and oral contrast using helical scanning technique with dynamic intravenous contrast injection. Reconstructed coronal and sagittal MPR images reviewed. All images stored on PACS. Automated exposure control was used as a dose optimization technique for this examination. CONTRAST TYPE/DOSE: injected via COMPARISON: 02/23/2015 FINDINGS: LOWER CHEST: No significant pulmonary abnormalities. No effusion. LIVER: Liver is diffusely fatty infiltrated. Centered on image number 30 there is a enhancing 4 cm hepatic mass. Centered on image number 50 there is a enhancing 2.1 cm hepatic mass. GALLBLADDER: Gallbladder is partially decompressed. BILE DUCTS: No intrahepatic or extrahepatic ductal dilatation. SPLEEN: Normal size. No focal lesions. PANCREAS: No identified cystic or solid masses. No significant calcifications. No adjacent inflammation or peripancreatic fluid collections. Pancreatic duct not dilated. ADRENALS: Normal. KIDNEYS/URINARY TRACT: No identified significant cystic or solid masses. No visualized stones. No hydronephrosis or hydroureter. Symmetric enhancement. The bladder is decompressed. GI: The rectosigmoid colon is unremarkable. The small bowel caliber is normal. The appendix is small. There is no evidence of appendicitis. PERITONEUM: A small amount of free fluid is noted within the cul-de-sac. RETROPERITONEUM: No mass or adenopathy. REPRODUCTIVE: IUD is present. 2.4 cm cyst of the left ovary is present. 2.7 cm cyst of the right ovary is present. VASCULATURE: No abdominal aortic aneurysm. MUSCULOSKELETAL: Bones are unremarkable. OTHER: Fat containing umbilical hernia is present. THIS IS AN ELECTRONICALLY VERIFIED FINAL REPORT 01/26/2020 9:52 PM - Electronically signed by Ephraim Hill M.D. SS: SS Report ID: [id number] Reading Location: [place] [address] CT RENAL STONE STUDY (ABDOMEN AND PELVIS W/O CONTRAST) (Canceled) MDM Coding I have reviewed the history, physical, diagnostic studies and treatment as outlined in the midlevelchart. In addition I have performed a face to face assessment of the patient myself. 01/26/20 Deya Campbell 24 y.o. female Brief history: Deya Campbell is a 24 y.o. female TO EMERGENCY DEPARTMENT FROM HOME MONDAY WITH COMPLAINT OF RIGHTLOWER QUADRANT PAIN. CONCERNED ABOUT IT COULD BE APPENDICITIS OR OVARIAN CYST. PATIENT DOES HAVE A HISTORY OF DIVERTICULITIS BUT PAIN USUALLY ON THE LEFT SIDE IN. SEE DETAILED NOTE BY MIDLEVEL PROVIDER FOR FURTHER DETAILS. There is no problem list on file for this patient. Past Medical History Positives Diagnosis Date ??? Diverticulitis ??? Hypertension Past Surgical History: Procedure Laterality Date ??? CATARACT REMOVAL WITH IMPLANT Left 2017 ??? COLONOSCOPY Left 10/31/2018 Procedure: COLONOSCOPY, NORMAL COLON EXAM, HEMORRHOIDS; Surgeon: Charles Amezcua MD; Location: [facility]; Service: Gastroenterology ??? MYRINGOTOMY ??? TONSILLECTOMY Brief PE: BP 180/89 Pulse 88 Temp 98.6 ??F (37 ??C) (Temporal) Resp 24 Ht 5' (1.524 m) Wt 318 lb 9.6 oz (144.5 kg) LMP 12/09/2019 (Approximate) SpO2 100% BMI 62.22 kg/m?? GENERAL: Well-developed morbidly obese white female no acute distress sitting on side of bed HEENT head atraumatic normocephalic. Pupils equal round reactive to light with accommodation. Extraocular muscles intact. Moist mucous membranes. NECK: Supple without lymphadenopathy CARDIOVASCULAR: Regular rate and rhythm without murmur gallop rub ABDOMEN: Obese soft nontender. Obesity limits exam EXTREMITIES: No cyanosis clubbing or edema CARE PATIENT FOLLOWED WITH MIDLEVEL PROVIDER DURING STAY IN EMERGENCY DEPARTMENT Labs Reviewed CMP (COMPREHENSIVE METABOLIC PANEL) - Abnormal; Notable for the following components: Result Value CO2, VENOUS 21 (*) GLUCOSE 112 (*) CREATININE, BLOOD 0.57 (*) All other components within normal limits URINALYSIS REFLEX IF INDICATED BY ABNORMAL RESULTS - Abnormal; Notable for the following components: WBC ESTERASE 25 /uL (*) PROTEIN, RANDOM URINE 30 mg/dL (*) URINE KETONES 5 mg/dL (*) URINE BLOOD 150 /uL (*) WBC (Urine) 6-10 (*) URINE RBC'S 11-20 (*) BACTERIA, URINE Few (*) All other components within normal limits CBC WITH AUTO DIFFERENTIAL - Abnormal; Notable for the following components: MCV 81.3 (*) MCH 25.9 (*) MPV 9.6 (*) All other components within normal limits LIPASE - Normal CULTURE, URINE COMPLETE BLOOD COUNT (CBC) WITH DIFF Narrative: The following orders were created for panel order CBC with Diff [id number]. Procedure Abnormality Status --------- ------ CBC with Auto Differential[[id number]] Abnormal Final result Please view results for these tests on the individual orders. POCT URINE HCG () Ct Abdomen Pelvis W/ Contrast Result Date: 01/26/2020 EXAM DESCRIPTION: CT ABDOMEN PELVIS W/ CONTRAST REASON FOR STUDY: RLQ abdominal pain, appendicitis suspected (Age > 14y) TECHNIQUE: CT scan of the abdomen and pelvis performed with intravenous andoral contrast using helical scanning technique with dynamic intravenous contrast injection. Reconstructed coronal and sagittal MPR images reviewed. All images stored on PACS. Automated exposure control was used as a dose optimization technique for this examination. CONTRAST TYPE/DOSE: injected via COMPARISON: 02/23/2015 FINDINGS: LOWER CHEST: No significant pulmonary abnormalities. No effusion. LIVER: Liver is diffusely fatty infiltrated. Centered on image number 30 there is a enhancing 4 cm hepatic mass. Centered on image number 50 there is a enhancing 2.1 cm hepatic mass. GALLBLADDER: Gallbladder is partially decompressed. BILE DUCTS: No intrahepatic or extrahepatic ductal dilatation. SPLEEN: Normal size. No focal lesions. PANCREAS: No identified cystic or solid masses. No significant calcifications. No adjacent inflammation or peripancreatic fluid collections. Pancreatic duct not dilated. ADRENALS: Normal. KIDNEYS/URINARY TRACT: No identified significant cystic or solid masses. No visualized stones. No hydronephrosis or hydroureter. Symmetric enhancement. The bladder is decompressed. GI: The rectosigmoid colon is unremarkable. The small bowel caliber is normal. The appendix is small. There is no evidence of appendicitis. PERITONEUM: A small amount of free fluid is noted within the cul-de-sac. RETROPERITONEUM: No mass or adenopathy. REPRODUCTIVE: IUD is present. 2.4 cm cyst of the left ovary is present. 2.7 cm cyst of the right ovary is present. VASCULATURE: No abdominal aortic aneurysm. MUSCULOSKELETAL: Bones are unremarkable. OTHER: Fat containing umbilical hernia is present. THIS IS AN ELECTRONICALLY VERIFIED FINAL REPORT 01/26/2020 9:52 PM - Electronically signed by Ephraim Hill M.D. SS: SS Report ID: [id number] Reading Location: [place] [address] IMPRESSION: 1. Normal appendix. 2. Bilateral adnexal cysts with a small amount of free fluid. IUD in place. 3. Hepatic lesions as previously described on prior studies. Differential includes hepatic adenoma and focal nodular hyperplasia. Both entities are benign. Sundeep Damian MD DX: RIGHT LOWER QUADRANT PAIN UTI * Araceli Brooks RN - 01/26/2020 8:50 PM CDT Pt taken to restroom for urine sample * Ellen Gordon PAC - 01/26/2020 8:35 PM CDT Chief Complaint Patient presents with ??? Flank Pain ??? Abdominal Pain HPI Deya Campbell is a 24 y.o. female who presents with RLQ pain which has been occurring for the past several days and worsened today at 1900. She states that the pain has been so severe that she feels like she cannot lift her R leg. She denies any hematuria, dysuria, vomiting, diarrhea, constipation, vaginal discharge, or a fever. She has hx of diverticulosis but has never had pain on the right with this. She denies a hx of kidney stones. LMP was 12/09/19. Current Facility-Administered Medications Medication Dose Route Frequency Provider Last Rate Last Dose ??? 0.9 % sodium chloride solution Intravenous Once Ellen Gordon PAC ??? morphine sulfate (PF) injection 2 mg 2 mg Intravenous Once Ellen Gordon PAC ??? ondansetron (ZOFRAN) injection 4 mg 4 mg Intravenous Once Ellen Gordon, BRIAN Current Outpatient Medications Medication Sig Dispense Refill ??? famotidine (PEPCID) 20 MG Tablet Take 1 Tab by mouth 2 times daily. 90 Tab 3 ??? polyethylene glycol (GLYCOLAX, MIRALAX) Pack Take [...] Positives Diagnosis Date ??? Diverticulitis ??? Hypertension Past Surgical History: Procedure Laterality Date ??? CATARACT REMOVAL WITH IMPLANT Left 2017 ??? COLONOSCOPY Left 10/31/2018 Procedure: COLONOSCOPY, NORMAL COLON EXAM, HEMORRHOIDS; Surgeon: Charles Amezcua MD; Location: [facility]; Service: Gastroenterology ??? MYRINGOTOMY ??? [...] History Narrative ??? Not on file BP 180/89 Pulse 88 Temp 98.6 ??F (37 ??C) (Temporal) Resp 24 Ht 5' (1.524 m) Wt 318 lb 9.6 oz (144.5 kg) LMP 12/09/2019 (Approximate) SpO2 100% BMI 62.22 kg/m?? Review of Systems Constitutional: Negative for chills and fever. HENT: Negative for congestion, ear pain and sore throat. Eyes: Negative for pain and discharge. Respiratory: Negative for cough, chest tightness and shortness of breath. Cardiovascular: Negative for chest pain, palpitations and leg swelling. Gastrointestinal: Positive for abdominal pain and nausea. Negative for abdominal distention, blood in stool, constipation, diarrhea and vomiting. Genitourinary: Negative for dysuria, frequency and vaginal discharge. Musculoskeletal: Negative for arthralgias and back pain. Skin: Negative for color change and rash. Neurological: Negative for dizziness, weakness, light-headedness and headaches. Psychiatric/Behavioral: Negative for suicidal ideas. All other systems reviewed and are negative. Physical Exam Vitals signs and nursing note reviewed. Constitutional: General: She is not in acute distress. Appearance: She is well-developed. She is not diaphoretic. Comments: Anxious, tearful HENT: Head: Normocephalic and atraumatic. Right Ear: External ear normal. Left Ear: External ear normal. Eyes: Conjunctiva/sclera: Conjunctivae normal. Pupils: Pupils are equal, round, and reactive to light. Neck: Musculoskeletal: Normal range of motion. Trachea: No tracheal deviation. Cardiovascular: Rate and Rhythm: Normal rate and regular rhythm. Heart sounds: Normal heart sounds. No murmur. Pulmonary: Effort: Pulmonary effort is normal. No respiratory distress. Breath sounds: Normal breath sounds. No wheezing or rales. Abdominal: General: Bowel sounds are normal. There is no distension. Palpations: Abdomen is soft. Tenderness: There is abdominal tenderness in the right lower quadrant. There is no guarding or rebound. Musculoskeletal: Normal range of motion. Skin: General: Skin is warm and dry. Neurological: Mental Status: She is alert and oriented to person, place, and time. Cranial Nerves: No cranial nerve deficit. Labs Reviewed CMP (COMPREHENSIVE METABOLIC PANEL) COMPLETE BLOOD COUNT (CBC) WITH DIFF Narrative: The following orders were created for panel order CBC with Diff [id number]. Procedure Abnormality Status --------- ------ CBC with Auto Differential[[id number]] Please view results for these tests on the individual orders. LIPASE URINALYSIS REFLEX IF INDICATED BY ABNORMAL RESULTS POCT URINE HCG () CBC WITH AUTO DIFFERENTIAL CMP (Comprehensive Metabolic Panel) (Results Pending) CBC with Diff [id number] (Results Pending) Lipase [id number] (Results Pending) URINALYSIS REFLEX IF INDICATED BY ABNORMAL RESULTS (Results Pending) CT RENAL STONE STUDY (ABDOMEN AND PELVIS W/O CONTRAST) (Results Pending) CT ABDOMEN PELVIS W/ CONTRAST (Results Pending) Procedures Imaging Results CT ABDOMEN PELVIS W/ CONTRAST (No Result on File) CT RENAL STONE STUDY (ABDOMEN AND PELVIS W/O CONTRAST) (No Result on File) MDM Coding No diagnosis found. 2100: Awaiting serum labs and CT report. Care of patient turned to Dr. Damian at shift change. Cosigned by Sundeep Damian at 01/26/2020 10:39 PM CDT * Tenzin Jacobs RN - 01/26/2020 8:23 PM CDT Pt to triage with c/o right flank pain that has been ongoing for the past couple of days,but pain becoming unbearable at around 1934 this evening. PT states pain starts in her right flank and is radiating to her RLQ. Denies hx of kidney stones. Does state hx of diverticulitis. PT very anxious thorough triage process. documented in this encounter Plan of Treatment Not on file documented as of this encounter Procedures Procedure Name Priority Date/Time Associated Diagnosis Comments CT ABDOMEN PELVIS W/ CONTRAST STAT 01/26/2020 9:40 PM CDT URINALYSIS REFLEX IF INDICATED BY ABNORMAL RESULTS STAT 01/26/2020 8:59 PM CDT CULTURE, URINE STAT 01/26/2020 8:59 PM CDT POCT URINE HCG () STAT 01/26/2020 8:55 PM CDT CBC WITH AUTO DIFFERENTIAL STAT 01/26/2020 8:35 PM CDT LIPASE STAT 01/26/2020 8:35 PM CDT CMP (COMPREHENSIVE METABOLIC PANEL) STAT 01/26/2020 8:35 PM CDT COMPLETE BLOOD COUNT (CBC) WITH DIFF STAT 01/26/2020 8:35 PM CDT documented in this encounter Results * CT ABDOMEN PELVIS W/ CONTRAST (01/26/2020 9:40 PM CDT) Anatomical Region Laterality Modality Abdomen N/A Computed Tomogra phy 01/26/2020 9:52 PM CDT Impressions 01/26/2020 9:55 PM CDT IMPRESSION: ?? 1. ??Normal appendix. 2. ??Bilateral adnexal cysts with a small amount of free fluid. ??IUD in place. 3. ??Hepatic lesions as previously described on prior studies. ?? Differential includes hepatic adenoma and focal nodular hyperplasia. Both entities are benign. Narrative 01/26/2020 9:55 PM CDT EXAM DESCRIPTION: ?? CT ABDOMEN PELVIS W/ CONTRAST REASON FOR STUDY: ?? RLQ abdominal pain, appendicitis suspected (Age > 14y) TECHNIQUE: ??CT scan of the abdomen and pelvis performed with intravenous and ?? oral contrast using helical scanning technique with dynamic intravenous contrast injection. Reconstructed coronal and sagittal MPR images reviewed. All images stored on PACS. Automated exposure control was used as a dose optimization technique for this examination. CONTRAST TYPE/DOSE: ?injected via ?? COMPARISON: ?? 02/23/2015 FINDINGS: ??LOWER CHEST: ??No significant pulmonary abnormalities. No effusion. LIVER: ??Liver is diffusely fatty infiltrated. ??Centered on image number 30 there is a enhancing 4 cm hepatic mass. Centered on image number 50 there is a enhancing 2.1 cm hepatic mass. GALLBLADDER: ??Gallbladder is partially decompressed. BILE DUCTS: ??No intrahepatic or extrahepatic ductal dilatation. SPLEEN: ??Normal size. ??No focal lesions. PANCREAS: ??No identified cystic or solid masses. No significant calcifications. No adjacent inflammation or peripancreatic fluid collections. Pancreatic duct not dilated. ADRENALS: ??Normal. KIDNEYS/URINARY TRACT: ??No identified significant cystic or solid masses. No visualized stones. No hydronephrosis or hydroureter. Symmetric enhancement. ??The bladder is decompressed. GI: ??The rectosigmoid colon is unremarkable. ??The small bowel caliber is normal. ??The appendix is small. ??There is no evidence of appendicitis. PERITONEUM: ??A small amount of free fluid is noted within the cul-de-sac. RETROPERITONEUM: ??No mass or adenopathy. REPRODUCTIVE: ??IUD is present. ??2.4 cm cyst of the left ovary is present. ??2.7 cm cyst of the right ovary is present. VASCULATURE: ??No abdominal aortic aneurysm. MUSCULOSKELETAL: ??Bones are unremarkable. OTHER: ??Fat containing umbilical hernia is present. THIS IS AN ELECTRONICALLY VERIFIED FINAL REPORT 01/26/2020 9:52 PM - Electronically signed by Ephraim Hill M.D. SS: YANI D: ??01/26/2020 9:52 PM T: ??01/26/2020 9:52 PM Report ID: [id number] Reading Location: ??[id number] Procedure Note Ephraim Hill MD - 01/26/2020 EXAM DESCRIPTION: CT ABDOMEN PELVIS W/ CONTRAST REASON FOR STUDY: RLQ abdominal pain, appendicitis suspected (Age > 14y) TECHNIQUE: CT scan of the abdomen and pelvis performed with intravenous and oral contrast using helical scanning technique with dynamic intravenous contrast injection. Reconstructed coronal and sagittal MPR images reviewed. All images stored on PACS. Automated exposure control was used as a dose optimization technique for this examination. CONTRAST TYPE/DOSE: injected via COMPARISON: 02/23/2015 FINDINGS: LOWER CHEST: No significant pulmonary abnormalities. No effusion. LIVER: Liver is diffusely fatty infiltrated. Centered on image number 30 there is a enhancing 4 cm hepatic mass. Centered on image number 50 there is a enhancing 2.1 cm hepatic mass. GALLBLADDER: Gallbladder is partially decompressed. BILE DUCTS: No intrahepatic or extrahepatic ductal dilatation. SPLEEN: Normal size. No focal lesions. PANCREAS: No identified cystic or solid masses. No significant calcifications. No adjacent inflammation or peripancreatic fluid collections. Pancreatic duct not dilated. ADRENALS: Normal. KIDNEYS/URINARY TRACT: No identified significant cystic or solid masses. No visualized stones. No hydronephrosis or hydroureter. Symmetric enhancement. The bladder is decompressed. GI: The rectosigmoid colon is unremarkable. The small bowel caliber is normal. The appendix is small. There is no evidence of appendicitis. PERITONEUM: A small amount of free fluid is noted within the cul-de-sac. RETROPERITONEUM: No mass or adenopathy. REPRODUCTIVE: IUD is present. 2.4 cm cyst of the left ovary is present. 2.7 cm cyst of the right ovary is present. VASCULATURE: No abdominal aortic aneurysm. MUSCULOSKELETAL: Bones are unremarkable. OTHER: Fat containing umbilical hernia is present. THIS IS AN ELECTRONICALLY VERIFIED FINAL REPORT 01/26/2020 9:52 PM - Electronically signed by Ephraim Hill M.D. SS: YANI Report ID: [id number] Reading Location: [id number] IMPRESSION: 1. Normal appendix. 2. Bilateral adnexal cysts with a small amount of free fluid. IUD in place. 3. Hepatic lesions as previously described on prior studies. Differential includes hepatic adenoma and focal nodular hyperplasia. Both entities are benign. Ellen Novak Page PAC IMG CT ORDERABLES Final Resu lt * Culture, Urine (01/26/2020 8:59 PM CDT) CULTURE RESULTS MIXED GROWTH OF ONE OR MORE DISTAL URETHRAL CONTAMINANTS 01/28/2020 10:38 AM CDT [facility] Urine URINE SPECIMEN / Unknown Non-Phlebotomy Collection / Unknown 01/26/2020 8:59 PM CDT 01/26/2020 9:25 PM CDT Ellen Novak Page PAC MICROBIOLOGY - GENERAL ORDER KAMRON Final Result [facility] [address] [place] [address], [place] * (ABNORMAL) URINALYSIS REFLEX IF INDICATED BY ABNORMAL RESULTS (01/26/2020 8:59 PM CDT) SPECIFIC GRAVITY 1.030 1.003 - 1.030 01/26/2020 9:42 PM CDT [facility] URINE PH 5.0 5.0 - 9.0 01/26/2020 9:42 PM CDT [facility] WBC ESTERASE 25 /uL(A) Negative 01/26/2020 9:42 PM CDT [facility] NITRITE Negative Negative 01/26/2020 9:42 PM CDT [facility] PROTEIN, RANDOM URINE 30 mg/dL(A) Negative 01/26/2020 9:42 PM CDT [facility] URINE GLUCOSE, QUAL Negative Negative 01/26/2020 9:42 PM CDT [facility] URINE KETONES 5 mg/dL(A) Negative 01/26/2020 9:42 PM CDT [facility] UROBILINOGEN Normal Normal mg/dL 01/26/2020 9:42 PM CDT [facility] URINE BILIRUBIN Negative Negative 0 9:42 PM CDT [facility] URINE BLOOD 150 /uL(A) Negative reina/ul 01/26/2020 9:42 PM CDT [facility] URINALYSIS COLOR Yellow 01/26/20 20 9:42 PM CDT [facility] URINALYSIS CLARITY Clear 01/26/2020 9:42 PM CDT [facility] WBC (Urine) 6-10(A) Negative, 0-5 /hpf 01/26/2020 9:42 PM CDT [facility] URINE RBC'S 11-20(A) Negative, 0-2 /hpf 01/26/2020 9:42 PM CDT [facility] EPITHELIAL CELLS Moderate amount /lpf 01/26/2020 9:42 PM CDT [facility] BACTERIA, URINE Few(A) Negative /hpf 01/26/2020 9:42 PM CDT [facility] URINE MUCOUS Few 01/26/2020 9:42 PM CDT [facility] Urine URINE SPECIMEN / Unknown Non-Phlebotomy Collection / Unknown 01/26/2020 8:59 PM CDT 01/26/2020 9:25 PM CDT Ellen Novak Page PAC URINE ORDERABLES Final Resul t [facility] [place] [address] * POCT Urine HCG () (01/26/2020 8:55 PM CDT) Pathologist [facility] [place] POC URINE Negative POC URINE CONTROL Heating Plant Superintendent Pass Urine 01/26/2020 8:55 PM CDT Ellen Novak Page PAC POINT OF CARE TESTING (MANUA L) Final Result * (ABNORMAL) CBC with Auto Differential (01/26/2020 8:35 PM CDT) WBC 7.23 4.00 - 12.00 10(3)/mcL 01/26/2020 8:47 PM CDT [facility] RBC 4.75 3.80 - 5.30 10(6)/mcL 01/26/2020 8:47 PM CDT [facility] HEMOGLOBIN (HGB) 12.3 12.0 - 15.8 g/dL 01/26/2020 8:47 PM CDT [facility] HEMATOCRIT (HCT) 38.6 36.0 - 47.0 % 01/26/2020 8:47 PM CDT [facility] MCV 81.3(L) 82.0 - 96.0 fL 01/26/2020 8:47 PM CDT [facility] MCH 25.9(L) 26.0 - 34.0 pg 01/26/2020 8:47 PM CDT [facility] MCHC 31.9 31.0 - 36.0 g/dL 01/26/2020 8:47 PM CDT [facility] PLATELET COUNT 314 140 - 440 10(3)/mcL 01/26/2020 8:47 PM CDT [facility] RDW 14.3 11.8 - 15.5 % 01/26/2020 8:47 PM CDT [facility] MPV 9.6(L) 9.7 - 12.4 fL 01/26/2020 8:47 PM CDT [facility] NEUTROPHILS 61.0 47.0 - 73.0 % 01/26/2020 8:47 PM CDT [facility] LYMPHOCYTES 32.1 18.0 - 42.0 % 01/26/2020 8:47 PM CDT [facility] MONOCYTES 4.8 4.0 - 12.0 % 01/26/2020 8:47 PM CDT [facility] EOSINOPHILS 1.5 0.0 - 5.0 % 01/26/2020 8:47 PM CDT [facility] BASOPHILS 0.6 0.0 - 1.0 % 01/26/2020 8:47 PM CDT [facility] ABSOLUTE NEUTROPHILS 4.41 1.60 - 7.70 10(3)/mcL 01/26/2020 8:47 PM CDT [facility] ABSOLUTE LYMPHOCYTES 2.32 1.30 - 3.20 10(3)/mcL 01/26/2020 8:47 PM CDT [facility] ABSOLUTE MONOCYTES 0.35 0.20 - 1.00 10(3)/mcL 01/26/2020 8:47 PM CDT [facility] ABSOLUTE EOSINOPHIL 0.11 0.00 - 0.40 10(3)/mcL 01/26/2020 8:47 PM CDT [facility] ABSOLUTE BASOPHILS 0.04 0.00 - 0.10 10(3)/mcL 01/26/2020 8:47 PM CDT [facility] NRBC PER 100 WBC 0 01/26/20 20 8:47 PM CDT [facility] Blood Venous Catheter (IV) / Unknown 01/26/2020 8:35 PM CDT 01/26/2020 8:44 PM CDT Ellen Novak Page PAC HEMATOLOGY ORDERABLES Final Result Performing Organization Address City/[facility]/ZIP Co de Phone Number [facility] [place] [address] * Lipase [id number] (01/26/2020 8:35 PM CDT) Pathologist [facility] [place] LIPASE 23.5 13 - 60 U/L 01/26/2020 9:14 PM CDT [facility] Blood Venous Catheter (IV) / Unknown 01/26/2020 8:35 PM CDT 01/26/2020 8:44 PM CDT Ellen Gordon PAC CHEMISTRY ORDERABLES Final R esult [facility] [place] [address] * (ABNORMAL) CMP (Comprehensive Metabolic Panel) (01/26/2020 8:35 PM CDT) SODIUM 138 136 - 144 mmol/L 01/26/2020 9:14 PM CDT [facility] POTASSIUM 3.6 3.5 - 5.1 mmol/L 01/26/2020 9:14 PM CDT [facility] CHLORIDE 101 100 - 110 mmol/L 01/26/2020 9:14 PM CDT [facility] CO2, VENOUS 21(L) 22 - 32 mmol/L 01/26/2020 9:14 PM CDT [facility] ANION GAP 19.6 8.0 - 20.0 mmol/L 01/26/2020 9:14 PM CDT [facility] GLUCOSE 112(H) 70 - 99 mg/dL 01/26/2020 9:14 PM CDT [facility] BUN 11 6 - 20 mg/dL 01/26/2020 9:14 PM CDT [facility] CREATININE, BLOOD 0.57(L) 0.60 - 1.10 mg/dL 01/26/2020 9:14 PM CDT [facility] BUN/CREATININE RATIO 19 12 - 20 ratio 01/26/2020 9:14 PM CDT [facility] TOTAL PROTEIN 7.5 6.0 - 8.3 g/dL 01/26/2020 9:14 PM CDT [facility] ALBUMIN 4.9 3.5 - 5.2 g/dL 01/26/2020 9:14 PM [facility] Comment: The colormetric methods used for the determination of Albumin may lead to falsely elevated test results in patients suffering from renal failure or insufficiency due to interference with other proteins. A/G RATIO 1.9 1.0 - 2.0 01/26/2020 9:14 PM CDT [facility] CALCIUM 10.1 8.9 - 10.3 mg/dL 01/26/2020 9:14 PM CDT [facility] T BILI 0.8 <=1.2 mg/dL 01/26/2020 9:14 PM CDT [facility] SGOT (AST) 28 <=32 U/L 01/26/2020 9:14 PM CDT [facility] SGPT (ALT) 29 <=33 U/L 01/26/2020 9:14 PM CDT [facility] ALKALINE PHOSPHATASE 68 35 - 105 U/L 01/26/2020 9:14 PM CDT [facility] GFR, EST. NONAFRICAN >60 >=60 01/26/2020 9:14 PM CDT [facility] GFR, EST. >60 >=60 020 9:14 PM CDT [facility] Comment: Creatinine Clearance is the preferred criteria for selecting drug dose adjustments in renally impaired patients. ??The GFR is provided as additional pertinent clinical information. GFR is reported in mL/min/1.73 sq m. Blood Venous Catheter (IV) / Unknown 01/26/2020 8:35 PM CDT 01/26/2020 8:44 PM CDT us Ellen Novak Page PAC CHEMISTRY ORDERABLES Final R esult [facility] [place] [address] documented in this encounter Visit Diagnoses Diagnosis Acute cystitis without hematuria- Primary Acute cystitis Abdominal pain, right lower quadrant documented in this encounter Administered Medications Inactive Administered Medications - up to 3 most recent administrations Medication Order MAR Action Action Date Dose Rate Site 0.9 % sodium chloride solution at 1,000 mL/hr, Intravenous, ONCE, 1 dose, On 01/26/20 at 2100 New Bag 01/26/2020 9:00 PM CDT 1000 mL/hr iopamidol (ISOVUE-370) 76 % injection 124 mL 124 mL, Intravenous, ONCE, 1 dose, On 01/26/20 at 2200 Given 01/26/2020 9:35 PM CDT 124 mL morphine sulfate (PF) injection 2 mg 2 mg, Intravenous, ONCE, 1 dose, On 01/26/20 at 2100 Given 01/26/2020 8:56 PM CDT 2 mg ondansetron (ZOFRAN) injection 4 mg 4 mg, Intravenous, ONCE, 1 dose, On 01/26/20 at 2100 Given 01/26/2020 8:56 PM CDT 4 mg sulfamethoxazole-trimethopri m DS (BACTRIM DS, SEPTRA DS) 800-160 MG per tablet 1 Tab 1 Tablet, Oral, ONCE, 1 dose, On 01/26/20 at 2300, Dose based on trimethoprim component, Indications: Urinary Tract InfectionIndications:Urinary Tract Infection Given 01/26/2020 10:47 PM CDT 1 Tablet documented in this encounter Active and Recently Administered Medications Times are shown in CDT. Scheduled Medication Order 01/24/2020 01/25/2020 01/26/2020 0.9 % sodium chloride solution (COMPLETED) at 1,000 mL/hr, Intravenous, ONCE, 1 dose, On 01/26/20 at 2100 2100 (New Bag - Prov ider: Araceli Brooks, BOBBY)2255 (Stopped - Provider: Shayna Power, BOBBY) iopamidol (ISOVUE-370) 76 % injection 124 mL (COMPLETED) 124 mL, Intravenous, ONCE, 1 dose, On 01/26/20 at 2200 2135 (Given - Provid er: Gladys Santana) morphine sulfate (PF) injection 2 mg (COMPLETED) 2 mg, Intravenous, ONCE, 1 dose, On 01/26/20 at 2099 2055 (Given - Provid er: Araceli Brooks, BOBBY) ondansetron (ZOFRAN) injection 4 mg (COMPLETED) 4 mg, Intravenous, ONCE, 1 dose, On 01/26/20 at 2099 2055 (Given - Provid er: Araceli Brooks RN) sulfamethoxazole-trimethoprim DS (BACTRIM DS, SEPTRA DS) 800-160 MG per tablet 1 Tab (COMPLETED) 1 Tablet, Oral, ONCE, 1 dose, On 01/26/20 at 2300, Dose based on trimethoprim component, Indications: Urinary Tract Infection 2246 (Given - Provid er: Shayna Power, BOBBY) documented in this encounter Care Teams Data Center Engineer Relationship Specialty Start Date End Date Jonelle Elam MD [address] [place] [address] PCP - General Family Medicine 02/22/15 documented as of this encounter
--- OUTSIDE RECORDS SUMMARY | 2024-04-14 17:47 | XMS_ITS | Referral Summary ---
Author Organization [facility] Address [address] [place] [address] Care Team Providers Care Crusher And Binder Operator Name Role Phone Vipin Bedoya DO Primary Care Provider [phone] Encounters Date Type Department Care Team Description 03/14/2024 Telephone [facility] [address] [place] [address] Clifton Fitzgerald MD newneuropt from Last 3 Months Allergies Active Allergy Reactions Criticality Noted Date Comments Cephalexin Rash Medium 02/08/2012 Labetalol Shortness of breath,Other (See comments) High 05/21/2012 Shortness of breath, chest jpain Other reaction(s): Other (see Comments) Shortness of breath, chest jpain Levofloxacin Hives,Itching,Other (See comments),Urticaria High 09/11/2018 Chest pain, shortness of breath and pain and weakness in legs Other reaction(s): Other (see Comments), Urticaria Chest pain, shortness of breath and pain and weakness in legs Chest pain, shortness of breath and pain and weakness in legs Medications albuterol HFA (PROVENTIL HFA,VENTOLIN HFA,PROAIR HFA) 90 mcg/actuation inhaler INHALE 1 PUFF BY MOUTH FOUR TIMES DAILY NEEDED FOR SHORTNESS OF BREATH OR WHEEZING Active amLODIPine (NORVASC) 10 mg tablet Take 1 tablet (10 mg total) by mouth daily 2 Active aspirin 81 mg chewable tablet CHEW AND SWALLOW 1 TABLET BY MOUTH ONCE A DAY 3 Active cholecalciferol (VITAMIN D-3) 50,000 unit capsule Take 1 capsule (50,000 Units total) by mouth once a week Active DULoxetine DR (CYMBALTA) 20 mg capsule Take 1 capsule (20 mg total) by mouth 2 (two) times a day Active ferrous sulfate 325 mg (65 mg of elemental iron) tablet Take 1 tablet (325 mg total) by mouth daily 2 Active furosemide (LASIX) 40 mg tablet Take 1 tablet (40 mg total) by mouth daily Active gabapentin (NEURONTIN) 100 mg capsule Take 1 capsule (100 mg total) by mouth 3 (three) times a day 2 Active losartan (COZAAR) 100 mg tablet Take 1 tablet (100 mg total) by mouth daily 2 Active metoprolol tartrate (LOPRESSOR) 50 mg immediate release tablet Take 1 tablet (50 mg total) by mouth 2 (two) times a day [address] (PROTONIX) 40 mg EC tablet TAKE 1 TABLET BY MOUTH EVERY DAY FOR GERD Active Nurtec ODT tablet,disinteg rating DISSOLVE 1 TABLET ON THE TONGUE EVERY DAY NEEDED FOR MIGRAINE 2 Active spironolactone (ALDACTONE) 25 mg tablet Take 1 tablet (25 mg total) by mouth daily 3 Active Active Problems Problem Noted Date Diagnosed Date Abdominal pain 10/16/2023 Abnormal blood chemistry level 10/16/2023 Abnormal computed tomography scan 10/16/2023 Blood glucose abnormal 10/16/2023 Calf pain 10/16/2023 Diverticulitis 10/16/2023 Overview (10/16/2023): Last Assessment & Plan: Recent transient flare Maternal Medicine recommendations: 1. encouraged to increase dietary fiber Edema 10/16/2023 Fatigue 10/16/2023 Hyperglycemia 10/16/2023 Lesion of liver 10/16/2023 Swelling of lower leg 10/16/2023 Renal impairment 07/08/2022 Peripheral vascular disease 06/01/2022 Prediabetes 04/07/2022 Generalized anxiety disorder 11/03/2021 Migraine headache 09/28/2021 Overview (10/16/2023): Last Assessment & Plan: Condition: stable Follow up in: if symptoms worsen or fail to improve Insomnia 04/21/2020 Overview (10/16/2023): Last Assessment & Plan: Condition: stable Follow up in: if symptoms worsen or fail to improve Morbid obesity 04/21/2020 Overview (10/16/2023): Member starting with a weight loss wellness center. Last Assessment & Plan: Condition: stable Co-morbidities: N/A BMI > 40, Hypertension, GERD and Sleep Apnea Follow up in: six months Essential hypertension 03/31/2020 Overview (10/16/2023): Last Assessment & Plan: Condition: stable Discussed target blood pressure. Continue medication as prescribed from PCP/specialist. Take medications at the same time every day. Lifestyle modification advised: DASH diet, reduce stress/anxiety, discussed health weight management, activity as tolerated or advised from PCP, try to avoid alcohol and nicotine. Follow up as scheduled with PCP/specialist. Last Assessment & Plan: Condition: stable Discussed target blood pressure. Continue medication as prescribed from PCP/specialist. Take medications at the same time every day. Lifestyle modification advised: DASH diet, reduce stress/anxiety, discussed health weight management, activity as tolerated or advised from PCP, try to avoid alcohol and nicotine. Follow up in: three months Iron deficiency anemia 12/23/2019 Overview (10/16/2023): Last Assessment & Plan: Condition: stable Follow up in: six months Sleep apnea 12/23/2019 Overview (10/16/2023): Has not had a sleep study Last Assessment & Plan: Previously instructed to have evaluation for sleep apnea Has not had a sleep study due to COVID Last Assessment & Plan: Previously instructed to have evaluation for sleep apnea Last Assessment & Plan: Condition: stable Follow up in: if symptoms worsen or fail to improve Frequent headaches 06/05/2019 Overview (10/16/2023): Last Assessment & Plan: Just picked up Riboflavin today, rarely uses Tylenol due to NAEFD. Headaches have not worsened. MFM Plan: 1. Reviewed headaches and if there is change to her current headache pattern, worsening, or persistent, she should be seen promptly for preeclampsia evaluation. 2. Start Riboflavin, increase fluid intake. Anxiety 01/02/2019 Overview (10/16/2023): Last Assessment & Plan: Increased anxiety and insomnia, in need of counseling. Declines medication intervention. Previously took lorazepam, understands she cannot take this during . MFM Plan: 1. Reviewed benefit of counseling again today, especially since she is exhibiting behaviors that are affecting her well being. 2. Offered medication and she declined. 3. Close surveillance for mood and anxiety disorder. 4. Ongoing assessment at [facility] visits. Last Assessment & Plan: Condition: stable Follow up in: if symptoms worsen or fail to improve Cataracts, bilateral 01/02/2019 Overview (10/16/2023): Has artificial lens in left eye Last Assessment & Plan: Having decreased nighttime vision Maternal Medicine recommendations: 1. recommend follow-up with windmill technician GERD (gastroesophageal reflux disease) 9 Overview (10/16/2023): Last Assessment & Plan: Condition: stable Reviewed use of antacid medication and/or diet modifications of decreasing caffeine, spicy foods, chocolate, and avoiding alcohol, tobacco, NSAIDs, and reducing citrus acids. Follow up in: if symptoms worsen or fail to improve NAFLD (nonalcoholic fatty liver disease) 019 Overview (10/16/2023): 02/03/20 Fibroscan CAP 400, LSM 22.0 kPa 10/27/20 Fibroscan CAP 400, LSM 63.1 kPa Last Assessment & Plan: Remains at risk for complications of related to pre-existing liver disease and suspected chronic hypertension. Patient believes she had CMP drawn at primary OB last week. Maternal Medicine recommendations: 1. Serial liver function testing every trimester--to be ordered by primary track laborer, please send copy of recent results. 2. Follow up with GI as recommended in fall for repeat MRI and fibroscan. Hyperlipidemia 05/08/2017 Lumbar herniated disc 04/03/2014 Overview (10/16/2023): Last Assessment & Plan: Remains bothersome with use of maternity support belt. Denies any falls. Has PT referral and has not made appointment. Swimming with some relief. [facility] Plan: 1. Again encouraged to reach out to physical therapy, she assures me she has the order form at home. Uses intrauterine device for control 10/21 Depressive disorder 05/21/2012 Social History Tobacco Use Types Packs/Day Years Used Date Smoking Tobacco: Never Smokeless Tobacco: Never Tobacco Cessation:Counseling Given: Not Answered Personal Safety Answer Date Recorded Getting School Help Needed Not on file 06/15 Comments Unknown Sex and Gender Information Value Date Recorded Sex Assigned at Not on file Legal Sex Female 9:36 PM LOCK EXPERT Gender Identity Not on file Sexual Orientation Not on file Last Filed Vital Signs Vital Sign Reading Time Taken Comments Blood Pressure 131/82 10/16/2023 11:02 AM CDT Pulse 85 10/16/2023 11:02 AM CDT Temperature 36.6 ??C (97.9 ??F) 10/16/2023 11:02 AM C DT Respiratory Rate 16 10/16/2023 11:02 AM CDT Oxygen Saturation 99% 10/16/2023 11:02 AM CDT Inhaled Oxygen Concentration - - Weight 146 kg (321 lb 12.8 oz) 10/16/2023 11:02 AM CDT Height 157.5 cm (5' 2 ) 10/16/2023 11:02 AM CDT Body Mass Index 58.86 10/16/2023 11:02 AM CDT Plan of Treatment Not on file Insurance [facility] CIGNA CIGNA Care Teams Crusher And Binder Operator Relationship Specialty Start Date End Date Vipin Bedoya DO PCP - General Internal Medicine 10/16/23
--- OUTSIDE RECORDS SUMMARY | 2024-04-14 17:47 | XMS_ITS | Data Portability ---
Author Organization [facility] [place] Address [address] [place] [address] [place] [address] Care Team Providers Care Planetarium Technician Name Role Phone JONELLE GREGORY Primary Care Provider Assessment Encounter Date Assessment Date Assessment LastModified by Organization Details LastModified Time 12/27/2019 12/27/2019 This patient is a Sttcbc-wdnl-fznx -old who presents for IUD check. She has no complaints. She was examined with a speculum. The cervix appears normal, the IUD string appears normally placed, the IUD was not visible. She will follow up as needed. [email or web address] Not available 12/27/2019 17:34:20 04/13/2022 04/13/2022 Annual gynecological exam performed. Patient will come back in a year unless there are new symptoms. [email or web address] Not available 04/13/2022 18:06:32 09/23/2023 09/23/2023 Annual gynecological exam performed. Patient will come back in a year unless there are new symptoms. [email or web address] Not available 09/23/2023 11:41:19 Plan of Treatment Reminders Order Date Submit Date Provider Last Modified By Organization Details Last Modified Time Details Appointments None recorded. Lab None recorded. Referral None recorded. Procedures None recorded. Surgeries None recorded. Imaging US, pelvis 2022 023 [email or web address] [place], [address], [place], [address], 22:00:00 US, transvagina l 2022 023 [email or web address] [place], [address], [place], [address], 3 22:00:00 Medication Orders Metrogel Vaginal 0.75 % (37.5 mg/5 gram) 2023 024 [id number], [address], [place], [place], [id number], 4 09:26:33 Patient TargetsNo targets recorded. Patient InstructionsNo instructions recorded. Reason for Referral None Reported. Results Created Date Observation Date Name Description Value Unit Range Abnormal Flag Note LastModifiedBy Organization Detail LastModifiedTime 05/16/1905/16/2020 , trish pinedo w-aren kinsey interpretati on Not Available [facility] [address], [place], [address], 09/19/2019 17:16:44 04/13/19 23 04/13/2022 IMAGE GUIDE D PAP, REFLE X HPV IF ASCUS ONLY image guided Pap, reflex HPV ASCUS only SEE RESULT S BELOW CASE REPOR T: Cytol ogy Gynec ologi jessica Repor t Case: [id number] Autho nirmal g Provi boubacar: Jona Maldonado MD Colle cted: 04/13 1756 Order ing Locat ion: [place] Path[facility] [place] Recei valeri: 04/14 1044 First Scree n: Nalini Telles ret, CT Rescr een: Deneen mendez, Kenneth moreno, CT Speci men: Scree chetna Pap - Image d, Cervi x STATE MENT OF ADEQU ACY: Satis facto ry for evalu ation Trans forma tion zone compo nent prese nt FINAL DIAGN OSIS: Negat elizabeth for Intra epith elial Lesio n or Angel reid (NIL) . Elect ryan nava luan d by Deneen mendez, Kenneth moreno, CT on 2022 at 5:51 PM ----- ----- ----- ----- ----- ----- ----- ----- ----- ----- ----- ----- ----- ----- ----- ----- ----- ---- COMME NT: Note: This speci men was revie wed by a Cytot echno logis t and/o r Patho logis t (as indic ated in this repor t) after evalu ation using the Thinp rep Imagi ng Syste m. CLINI JESSICA INFOR MATIO N: Menst rual Statu s: LMP (if appli cable ): Clini jessica Histo ry/Pr eviou s Pap: Type of Neopl janny (if appli cable ): Signi fican t Clini jessica Findi ngs: Other Histo ry: Hormo ericka (if appli cable ): PAP EDUCA ASHWINI L NOTE: The Pap Test is a scree chetna test with an inher ent false negat elizabeth rate. Liqui d-bas ed sampl ing may decre ase, but will not elimi abner, false negat elizabeth resul ts. A negat elizabeth resul t does not precl ude the prese nce and/o r devel opmen t of disea se, since the prese nce of abnor mal cells in the sampl e depen ds on the locat ion of the lesio n and sampl ing techn ique. Mark nued regul ar scree chetna is the best metho d of cance r preve ntion . If repor lindsey cytol ogic findi ng do not corre late with physi jessica and/o r histo rical findi ngs, furth er inves tigat ion is recom christopher d, as clini ben park nted. Not Available [facility] (Lab) [address], [place], [address], 04/18/2022 18:53:38 09/25/19 24 09/25/2023 IMAGE GUIDE D PAP, REFLE X HPV IF ASCUS ONLY image guided Pap, reflex HPV ASCUS only SEE RESULT S BELOW CASE REPOR T: Cytol ogy Gynec ologi jessica Repor t Case: [id number] Autho nirmal benitez Provi boubacar: Jona Maldonado MD Colle cted: 09/24 1526 Order ing Locat ion: [place] Patho logkaren Rececristi valeri: 09/25 0440 First Leora n: Marbella Hartman Rescr een: Isabel ferro, Deirdre, CT Speci men: Leora basilio Pap - Image d, Cervi x STATE MENT OF ADEQU ACY: Satis facto ry for evalu ation Trans forma tion zone compo nent prese nt ----- ----- ----- ----- ----- ----- ----- ----- ----- ----- ----- ----- ----- ----- ----- ----- ----- ---- FINAL DIAGN OSIS: Negat elizabeth for Intra epith elial Valentín garcia or Angel reid ([facility]) . Elect ryan nava luan d by Deirdre Ingram, CT on 2023 at 2:53 PM ----- ----- ----- ----- ----- ----- ----- ----- ----- ----- ----- ----- ----- ----- ----- ----- ----- ---- COMME NT: This speci men was revie wed by a Cytot echno logis t and/o r Patho logis t (as indic ated in this repor t) after evalu ation using the Thinp rep Imagi ng Syste m. CLINI JESSICA INFOR MATIO N: Menst rual Statu s: LMP (if appli cable ): Clini jessica Histo ry/Pr eviou s Pap: Type of Neopl janny (if appli cable ): Signi fican t Clini jessica Findi ngs: Other Histo ry: Hormo ericka (if appli cable ): PAP EDUCA ASHWINI L NOTE: The Pap Test is a scree chetna test with an inher ent false negat elizabeth rate. Liqui d-bas ed sampl ing may decre ase, but will not elimi abner, false negat elizabeth resul ts. A negat elizabeth resul t does not precl ude the prese nce and/o r devel opmen t of disea se, since the prese nce of abnor mal cells in the sampl e depen ds on the locat ion of the lesio n and sampl ing techn ique. Mark nued regul ar scree chetna is the best metho d of cance r preve ntion . If repor lindsey cytol ogic findi ng do not corre late with physi jessica and/o r histo rical findi ngs, furth er inves tigat ion is recom christopher d, as clini ben warrkasie nted. Not Available [facility] (Lab) [address], [place], [address], 09/27/2023 15:57:28 05/24/19 23 05/24/2022 US, pelvi s No observ ation record ed. [email or web address] [place] [address], [place], [address], 05/24/2022 18:30:16 05/24/19 23 05/24/2022 US, trans vagin al No observ ation record ed. [email or web address] [place] [address], [place], [address], 05/24/2022 18:30:08 05/24/19 23 05/24/2022 US, pelvi s No observ ation record ed. [email or web address] [address], [place], [address], 05/24/2022 21:59:46 Result Notes None recorded. Problems Name Problem SNOMED Code Status Onset Date Resolution Date Notes Provider Name and Address Organization Details Recorded Time Pregnanc y test negative 720379634 Active 2013 Negative Pregnanc y Test;Pra ctice ID: 0001 Not Available [facility] 0 21:35:28 Insertio n of intraute rine contrace ptive device Active 2013 INSERTIO N OF IUD;Prac juliane ID: 0001 Not Available [facility] 0 21:35:28 Uses IUD (intraut erine device) contrace ption 737616247 Active 2013 Surveill ance of intraute rine contrace ptive device;P ractice ID: 0001 Not Available [facility] 0 21:35:28 Speciali zed medical examinat ion Active 2013 Routine gynecolo gical examinat ion;Prac juliane ID: 0001 Not Available [facility] 0 21:35:[address] Concept Active 2017 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 ) (routine ) w/o abn findings ;Practic e ID: 0001 Not Available [facility] 0 21:35:28 Pregnanc y detectio n examinat ion Active 2017 Encounte r for pregnanc y test, result positive ;Practic e ID: 0001 Not Available [facility] 0 21:35:29 Normal pregnanc y in multigra maira 13720297179 4106 Active 2017 Encounte r for suprvsn of normal pregnanc y, first trimeste r;Practi ce ID: 0001 Not Available [facility] 0 21:35:29 Antenata l screenin g for malforma tion Active 2018 Encounte r for antenata l screenin g for malforma tions;Pr actice ID: 0001 Not Available [facility] 0 21:35:30 Medical examinat ion for suspecte d conditio n Active 2018 Encounte r for suspecte d anomaly ruled out;Prac juliane ID: 0001 Not Available [facility] 0 21:35:30 Pregnanc y, childbir th and puerperi um finding Active 2018 Oth pregnanc y related conditio ns, second trimeste r;Practi ce ID: 0001 Not Available [facility] 0 21:35:30 Hyperten rpetty in the obstetri c context Active 2018 Pre-exis ting essentia l htn comp pregnanc y, second trimeste r;Practi ce ID: 0001 Not Available [facility] 0 21:35:[address] Concept Active 2018 Decrease d movement s, third trimeste r, unsp;Pra ctice ID: 0001 Not Available [facility] 0 21:35:31 Gestatio n period, 28 weeks 32752957 Active 2018 28 weeks gestatio n of pregnanc y;Practi ce ID: 0001 Not Available [facility] 0 21:35:31 False labor before 37 complete d weeks of gestatio n 55050126591 366785 Active 2018 False labor before 37 complete d weeks of gest, third tri;Prac juliane ID: 0001 Not Available [facility] 0 21:35:31 Gestatio n period, 30 weeks 94109959 Active 2018 30 weeks gestatio n of pregnanc y;Practi ce ID: 0001 Not Available [facility] 0 21:35:32 Clinical finding Active 2018 Obesity, unspecif ied;Prac juliane ID: 0001 Not Available [facility] 0 21:35:32 Severe obesity complica ting pregnanc y 72664129666 967024 Active 2018 Obesity complica ting pregnanc y, third trimeste r;Practi ce ID: 0001 Not Available [facility] 0 21:35:33 Gestatio n period, 32 weeks 6135348 Active 2018 32 weeks gestatio n of pregnanc y;Practi ce ID: 0001 Not Available [facility] 0 21:35:33 Gestatio n period, 33 weeks 26330823 Active 2018 33 weeks gestatio n of pregnanc y;Practi ce ID: 0001 Not Available [facility] 0 21:35:35 Prematur e labor 6396439 Active 2018 labor without delivery , third trimeste r;Practi ce ID: 0001 Not Available [facility] 0 21:35:36 Gestatio n period, 35 weeks 05637623 Active 2018 35 weeks gestatio n of pregnanc y;Practi ce ID: 0001 Not Available [facility] 0 21:35:38 Gestatio n period, 36 weeks 37829871 Active 2018 36 weeks gestatio n of pregnanc y;Practi ce ID: 0001 Not Available [facility] 0 21:35:41 Term pregnanc y delivere d 90873265 Active 2018 Encounte r for full-ter m uncompli cated delivery ;Practic e ID: 0001 Not Available [facility] 0 21:35:41 Single live 726836895 Active 2018 Single live ;Pr actice ID: 0001 Not Available [facility] 0 21:35:41 Hemorrha gic complica tion of pregnanc y 076526554 Active 2019 Other hemorrha ge in early pregnanc y;Practi ce ID: 0001 Not Available [facility] 0 21:35:43 Gestatio n period, 10 weeks 75969213 Active 2019 10 weeks gestatio n of pregnanc y;Practi ce ID: 0001 Not Available [facility] 0 21:35:43 Pelvic and perineal pain 133715172 Active 2019 Pelvic and perineal pain;Pra ctice ID: 0001 Not Available [facility] 0 21:35:45 Poor growth affectin g manageme nt 447483698 Active 2012 GROWTH POOR SGA;Prac juliane ID: 0001 Not Available [facility] 0 21:35:45 Delivery normal 16609392 Active 2012 Normal delivery ;Practic e ID: 0001 Not Available [facility] 0 21:35:47 Depressi ve disorder 67830038 Active 2012 Depressi ve disorder , not elsewher e classifi ed;Pract ice ID: 0001 Not Available [facility] 0 21:35:47 Postpart um care Active 2012 Routine postpart um follow-u p;Practi ce ID: 0001 Not Available [facility] 0 21:35:47 Educatio n Active 2013 Counseli ng abdulazize ptive manageme nt;Pract ice ID: 0001 Not Available [facility] 0 21:35:48 Screenin g for malignan t neoplasm of cervix Active 2011 Screenin g for malignan t neoplasm s of the cervix;R ecorded Elsewher e: No Locat ion: [facility] S ource: EHR Skin Drier anita: N Practi ce ID: 0001 Zurdo lable Time: 03:15:00 PM Not Available [facility] 0 21:35:52 anatomy study Active 2011 SCRN [facility] SURVEY;R ecorded Elsewher e: No Locat ion: [facility] S ource: EHR Skin Drier anita: N Practi ce ID: 0001 Zurdo lable Time: 03:30:00 PM Not Available [facility] 0 21:36:07 Elevated blood-pr essure reading without diagnosi s of hyperten pretty 422683010 Active 2012 Elevated blood pressure reading without diagnosi s of hyperten pretty;Pra ctice ID: 0001 Not Available [facility] 0 21:36:12 Pregnanc y 23841044 Com[facility] 201903[facility] 14:57:11 History of hyperten pretty 852213808 [facility] 0 14:57:05 Lesion of liver 980993143 Completed seeing MFM *MFM RECOMMEN DS LFP Q TRIMESTE R!* (next appt 08/28/19) , saw [facility] and then went [facility] records [facility] 0 14:57:05 Anxiety disorder 327933109 Completed Myra Shaw [facility] 0 14:57:05 Maternal obesity complica ting pregnanc y, childbir th and the puerperi um, antepart um 66067174924 7 Completed NSTs @ 32 weeks!! Serial growth Myra Shaw kendra, [facility] 0 14:57:05 Problem Notes None recorded. Procedures Surgical History Date Name Laterality Status Provider Name and Address Organization Details Recorded Time 11/27/19 20 IUD Insertion completed Ede Maldonado MD [address], [place], [address], [facility] 11/27/2019 17:27:35 04/03/19 18 cataract surgery completed Krystinjanay Aggarwal [facility] 11/15/2019 16:02:44 04/03/19 08 tonsillectomy and adenoidectomy completed Arianna Epps [facility] 07/10/2019 12:43:23 04/03/19 03 tympanostomy completed Krystin Aggarwal [facility] 11/15/2019 16:02:54 Imaging Results Imaging Date Name Status LastModified by Organization Details LastModified Time 05/24/2022 US, pelvis completed [email or web address] [place] [address], [place], [address], 05/24/2022 18:30:16 05/24/2022 US, transvaginal completed [facility] [address], [place], [address], 05/24/2022 18:30:08 05/24/2022 US, pelvis completed [email or web address] [address], [place], [address], 05/24/2022 21:59:46 Procedure Notes None recorded. Medical Equipment None Reported. Allergies Allergen ID Allergen Name Allergen Category Reaction Reaction Severity Criticality Documentation Date Start Date Code Code System Note Provider Name and Address Organization Details Recorded Time 34061 levofloxa kd medicatio n hives Not available Not available 04/13/2022 75616 RxNorm Estela Clancy [facility], [facility] 3 18:26:03 48 cephalexi n medicatio n Not available Not available Not available 07/10/2019 2231 RxNorm Arianna Epps [facility] 0 12:32:45 49 labetalol medicatio n chest pain Not available Not available 07/10/2019 6185 RxNorm chest pain and SOB Arianna Epps [facility] 0 12:33:48 Medications Name Sig Start Date Stop Date Status Note LastModified by Organization Details LastModified Time cyclobenz aprine 10 mg tablet 07/09 completed Not Available Not Available Not Available amoxicill in 500 mg capsule 09/12 completed Not Available Not Available Not Available furosemid e 40 mg tablet TAKE 1 TABLET BY MOUTH EVERY DAY active Not Available Not Available No t Available Mirena 21 mcg/24 hr (up to 8 years) 52 mg intrauter ine device 01/05 completed Prescrib ed Elsewher e: Yes Loca tion: [facility] odify By: harvinder crawford DateTime : 07/27/19 14 09:30:00 AM Not Available Not Available Not Available prednison e 10 mg tablet 09/22 completed Not Available Not Available Not Available labetalol 200 mg tablet take 1 tablet (200MG) by oral route 2 times every day 05/21 completed Prescrib ed Elsewher e: No Locat ion: [facility] odify By: [email or web address] trick En counter DateTime : 04/06/19 13 10:45:00 AM Not Available Not Available Not Available Vitamin C 500 mg tablet TAKE 1 TABLET BY MOUTH TWICE DAILY 04/13 completed Not Available Not Available Not Available polyethyl joanne glycol 3350 17 gram oral powder packet 07/09 completed Not Available Not Available Not Available fluconazo le 150 mg tablet take 1 tablet by oral route once 09/12 completed Not Available Not Available Not Available metronida zole 0.75 % (37.5 mg/5 gram) vaginal gel INSERT 1 APPLICAT ORFUL VAGINALL Y EVERY NIGHT AT BEDTIME X 5 NIGHTS 11/13 completed Not Available Not Available Not Available ondansetr on HCl 4 mg tablet 07/09 completed Not Available Not Available Not Available prednison e 20 mg tablet TAKE 2 TABLETS BY MOUTH DAILY FOR 5 DAYS 09/22 completed Not Available Not Available Not Available Advair Diskus 100 mcg-50 mcg/dose powder for inhalatio n active Not Available Not Available Not Available metronida zole 500 mg tablet 07/09 completed Not Available Not Available Not Available nifedipin e ER 30 mg tablet,ex tended release 07/09 completed Not Available Not Available Not Available clopidogr el 75 mg tablet TAKE 1 TABLET BY MOUTH EVERY DAY active Not Available Not Available No t Available tramadol 50 mg tablet 07/09 completed Not Available Not Available Not Available spironola ctone 25 mg tablet TAKE 1 TABLET BY MOUTH DAILY active Not Available Not Available No t Available losartan 100 mg-hydroc hlorothia zide 25 mg tablet TAKE 1 TABLET BY MOUTH EVERY DAY 11/13 completed Not Available Not Available Not Available amoxicill in 875 mg tablet 07/09 completed Not Available Not Available Not Available famotidin e 20 mg tablet 07/09 completed Not Available Not Available Not Available lorazepam 0.5 mg tablet 07/09 completed Not Available Not Available Not Available amlodipin e 10 mg tablet TAKE 1 TABLET BY MOUTH EVERY DAY active Not Available Not Available No t Available ranitidin e 150 mg tablet 07/09 completed Not Available Not Available Not Available buspirone 10 mg tablet 07/09 completed Not Available Not Available Not Available prednison e 50 mg tablet TAKE 1 TABLET BY MOUTH DAILY 11/13 completed Not Available Not Available Not Available metoprolo l tartrate 50 mg tablet TAKE 1 TABLET BY MOUTH TWICE DAILY DIRECTED active Not Available Not Available No t Available ibuprofen 200 mg tablet take 1 tablet by oral route every 6 hours as needed with food 01/05 completed Prescrib ed Elsewher e: Yes [facility] By: harvinder crawford DateTime : 01/14/20 14 12:30:00 PM Not Available Not Available Not Available omeprazol e 20 mg capsule,d elayed release TAKE 1 CAPSULE BY MOUTH EVERY DAY. STOP PANTOPRA ZOLE. BEGIN TAKING OMEPRAZO LE AFTER PROCEDUR E 09/22 completed Not Available Not Available Not Available Banophen 25 mg capsule TAKE 1-2 CAPSULES BY MOUTH EVERY 4 TO 6 HOURS NEEDED FOR ALLERGIC REACTION active Not Available Not Available No t Available aspirin 81 mg chewable tablet CHEW AND SWALLOW 1 TABLET BY MOUTH ONCE A DAY 09/22 completed Not Available Not Available Not Available folic acid 1 mg tablet 11/14 completed Not Available Not Available Not Available gabapenti n 100 mg capsule TAKE 1 CAPSULE BY MOUTH THREE TIMES DAILY active Not Available Not Available No t Available ergocalci ferol (vitamin D2) 1,250 mcg (50,000 unit) capsule TAKE ONE CAPSULE BY MOUTH EVERY 7 DAYS active Not Available Not Available No t Available lorazepam 1 mg tablet 07/09 completed Not Available Not Available Not Available ibuprofen 600 mg tablet 07/09 completed Not Available Not Available Not Available polyethyl joanne glycol 3350 17 gram/dose oral powder 07/09 completed Not Available Not Available Not Available levofloxa kd 500 mg tablet 07/09 completed Not Available Not Available Not Available albuterol sulfate HFA 90 mcg/actua tion aerosol inhaler INHALE 1 PUFF BY MOUTH FOUR TIMES DAILY NEEDED FOR SHORTNES S OF BREATH OR WHEEZING 09/22 completed Not Available Not Available Not Available nifedipin e ER 60 mg tablet,ex tended release 07/09 completed Not Available Not Available Not Available Zoloft 25 mg tablet take 1 tablet (25MG) by oral route every day 06/04 completed Prescrib ayaan Elsew e: No Locat ion: [facility] odify By: [email or web address] trick En counter DateTime : 05/21/19 13 11:30:00 AM Not Available Not Available Not Available losartan 100 mg tablet TAKE 1 TABLET BY MOUTH DAILY active Not Available Not Available No t Available metformin ER 500 mg tablet,ex tended release 24 hr TAKE 1 TABLET BY MOUTH EVERY DAY 09/22 completed Not Available Not Available Not Available ParaGard T 380A 380 square mm intrauter ine device Take by intraute rine route. active Not Available Not Available No t Available metoclopr amide 10 mg tablet take 1 tablet by oral route TID 30 minutes before meals and at bedtime 07/09 completed Not Available Not Available Not Available buspirone 15 mg tablet take 1 tablet (15MG) by oral route 2 times every day 05/21 completed Prescrib ed Elsewher e: No [facility] By: kmkirkpa trick En counter DateTime : 02/17/20 12 03:45:00 PM Not Available Not Available Not Available neomycin- polymyxin -hydrocor t 3.5 mg-10,000 unit/mL-1 % ear drops,claudia p 07/09 completed Not Available Not Available Not Available Tablet 28 mg iron-800 mcg 05/21 completed Prescrib ed Elsewher e: Yes [facility]oca [facility] odify By: [email or web address] trick En counter DateTime : 02/08/20 12 03:15:00 PM Not Available Not Available Not Available escitalop humble 10 mg tablet TAKE 1 TABLET BY MOUTH EVERY DAY 06/08 completed Not Available Not Available Not Available iron ER 325 mg (65 mg iron) capsule,e xtended release take 1 Tablet by Oral route every day 12/31 completed Prescrib ed Elsewher e: No Locat ion: [facility] odify By: [email or web address] trick En counter DateTime : 05/02/19 13 03:48:05 PM Not Available Not Available Not Available Mononessa (28) 0.25 mg-35 mcg tablet take 1 tablet by oral route every day 12/31 completed Prescrib ed Elsewher e: Yes Loca tion: [facility] odify By: [email or web address] trick En counter DateTime : 06/05/19 13 10:45:00 AM Not Available Not Available Not Available zonisamid e 25 mg capsule TAKE 1 CAPSULE BY MOUTH EVERY DAY active Not Available Not Available No t Available duloxetin e 20 mg capsule,d elayed release TAKE 1 CAPSULE BY MOUTH TWICE DAILY active Not Available Not Available No t Available folic acid 08/21 completed Not Available Not Available Not Available 11/14 completed Not Available Not Available Not Available multivita min active Not Available Not Available Not Available Slow Release Iron 11/14 completed Not Available Not Available Not Available Baby Aspirin 11/14 completed Not Available Not Available Not Available Cymbalta active Not Available Not Avai lable Not Available cholecalc iferol (vitamin D3) 1,250 mcg (50,000 unit) capsule TAKE 1 CAPSULE BY MOUTH ONCE WEEKLY active Not Available Not Available No t Available Flexall 16 % topical gel 01/05 completed Prescrib ed Elsewher e: Yes Loca tion: [facility] odify By: harvinder crawford DateTime : 01/14/20 12:30:00 PM Not Available Not Available Not Available B12 11/14 completed and B2 Not Available Not Available Not Available 28 mg iron-800 mcg tablet 04/13 completed Prescrib ed Elsewher e: Yes Loca tion: [facility] odify By: mitesh crawford DateTime : 04/30/19 01:45:00 PM Not Available Not Available Not Available Nurte ODT 75 mg disintegr ating tablet DISSOLVE 1 TABLET ON THE TONGUE EVERY DAY NEEDED MIGRAINE active Not Available Not Available No t Available Trulicity 3 mg/0.5 mL subcutane ous pen injector ADMINIST ER 0.5 ML UNDER THE SKIN EVERY WEEK 09/22 completed Not Available Not Available Not Available Vitals Date Recorded Body height Body mass index (BMI) Body weight Systolic blood pressure Diastolic blood pressure Provider Name and Address Organization Details Last Updated DateTime 04/13/2022 154.94 cm 65.6 kg/m2 170541.5 5 g 129 mm[Hg] 83 mm[Hg] Estela Clancy [facility] 3 18:25:29 Date Recorded Body height Body mass index (BMI) Body weight Systolic blood pressure Diastolic blood pressure Provider Name and Address Organization Details Last Updated DateTime 06/08/2022 154.94 cm 64.6 kg/m2 180773.5 9 g 111 mm[Hg] 75 mm[Hg] Angela Aponte [facility] 3 17:45:33 Date Recorded Body height Body mass index (BMI) Body weight Systolic blood pressure Diastolic blood pressure Provider Name and Address Organization Details Last Updated DateTime 12/27/2019 154.94 cm 60.1 kg/m2 887314.3 7366 g 148 mm[Hg] 96 mm[Hg] Estela Clancy [facility] 0 16:55:23 Date Recorded Body height Body mass index (BMI) Body weight Systolic blood pressure Diastolic blood pressure Provider Name and Address Organization Details Last Updated DateTime 09/23/2023 154.94 cm 61 kg/m2 766680.3 4 g 115 mm[Hg] 69 mm[Hg] Martha Shields [facility] 4 11:42:56 Social History Question Answer Notes LastModified by Organizat ion Details LastModified Time Tobacco Smoking Status Never Smoker Arianna gardner, [facility] 07/10/2019 13:00:52 What Is Your Level Of Alcohol Consumption? None Information not available 07/10/2019 If You Are , What Was Your Level Of Alcohol Consumption Prior To ? Occasional [email or web address] Information not available 09/13/2019 Are You Blind Or Do You Have Difficulty Seeing? No [email or web address] Information not available 09/23/2023 In The 14 Days Before Symptom Onset, Have You Had Close Contact With A Laboratory-confir med COVID-19 While That Case Was Ill? No [email or web address] Information not available 09/23/2023 In The 14 Days Before Symptom Onset, Have You Had Close Contact With A Person Who Is Under Investigation For COVID-19 While That Person Was Ill? No Information not available 09/23/2023 Have You Been To An Area Known To Be High Risk For COVID-19? No [email or web address] Information not available 09/23/2023 Are You Deaf Or Do You Have Serious Difficulty Hearing? No [email or web address] Information not available 09/23/2023 Which Illicit Or Recreational Drugs Have You Used? None [email or web address] Information not available 09/13/2019 Do You Or Have You Ever Used E-cigarettes Or Vape? Never Used Electronic Cigarettes [email or web address] Information not available 09/13/2019 What Was The Date Of Your Most Recent Tobacco Screening? 11/15/2019 [email or web address] Information not available 11/15/2019 Do You Use Your Seat Belt Or Car Seat Routinely? Yes [email or web address] Information not available 09/23/2023 Are You Sexually Active? Yes [email or web address] Information not available 09/23/2023 Do You Have Smoke And Carbon Monoxide Detectors In Your Home? Yes [email or web address] Information not available 09/23/2023 Do You Or Have You Ever Used Smokeless Tobacco? Never Used Smokeless Tobacco [email or web address] Information not available 09/13/2019 How Much Tobacco Do You Smoke? No [email or web address] Information not available 09/13/2019 Smoking Pre- No Information not available 09/13/2019 Do You Use Sunscreen Routinely? Yes [email or web address] Information not available 09/23/2023 Sex: Unknown Functional Status Question Answer Note LastModified by Organizat ion Details LastModified Time Do you have difficulty walking or climbing stairs? No [email or web address] Information not available 09/23/2023 Are you able to walk? YESWOREST [email or web address] Information not available 09/23/2023 Are you able to care for yourself? Yes [email or web address] Information not available 09/23/2023 Do you have difficulty dressing or bathing? No [email or web address] Information not available 09/23/2023 What is your exercise level? Occasional Information not available 07/10/2019 Mental Status None recorded. Family History Relationship Description Onset Age of this Age Resolved Age Notes LastModified by Organization Details LastModified Time Mother History of hypertension [email or web address] Not available 11/2019 12:36:23 Mother Cyst of ovary ovaria n cyst jgumber Not available 07/10/2019 12:37:24 Father History of hypertension [email or web address] Not available 11/2019 12:37:38 Father Diabetes mellitus [email or web address] Not available 2019 12:40:03 Maternal Grandmother Screening for malignant neoplasm of cervix Cervic al cancer jgumber Not available 07/10/2019 12:38:30 Maternal Grandmother History of hypertension jgumber Not available 11/2019 12:38:49 Paternal Grandmother History of hypertension jgumber Not available 11/2019 12:38:59 Maternal Grandfather History of hypertension [email or web address] Not available 11/2019 12:39:09 Maternal Grandfather Diabetes mellitus [email or web address] Not available 2019 12:40:29 Maternal Grandfather Heart disease jgumber Not available 2019 12:40:47 Paternal Grandfather History of hypertension jgumber Not available 11/2019 12:39:21 Maternal Uncle History of hypertension jgumber Not available 11/2019 12:39:39 Maternal Uncle Diabetes mellitus jgumber Not available 2019 12:40:15 Paternal Uncle History of hypertension jgumber Not available 11/2019 12:39:45 Brother Seizure disorder jgumber Not available 2019 12:41:03 Medical History Condition Response Other Y Hepatitis/Liver Disease Y GI Problems Y Gynecological History Statement/Question Response Abnormal Pap N Date of Last Mammogram Date of LMP 08/05/2023 On BCP's at Conception? N Was last menstrual period normal Y STIs/STDs N HPV Vaccine Y Colposcopy Current Control Method IUD Age at First Child 15 Are cycles usually normal Y Date of Last Colonoscopy Sexually Active? Y Date of DEXA bone scan Age of first menstrual cycle 10 Date of Last Pap Smear LMP Definite Obstetrics History GPAL:G 3 P 3 1 0 2 Type Value Full Term 3 Premature 1 Living 2 Total 3 Past Encounters Encounter ID Performer Location Encounter Start Date Encounter Closed Date Diagnosis/Indication Diagnosis SNOMED-CT Code Diagnosis ICD10 Code [id number] [address],[email or web address] [place] [address] 07/10/2019 12:10:22 07/11/2019 18:06:48 [id number] [facility] [address] [address] 08/07/2019 09:37:34 08/07/2019 11:06:54 Routine care 570387505 Z34.82 [id number] [facility] [address],[facility] [[email or web address] [place] [address] 08/22/2019 12:16:29 08/22/2019 13:11:27 Routine care 031433399 Z34.93 - induced hypertension 58271877 O13.9 Urinary tr act infectious disease 03398413 N39.0 [id number] Jonelle Walker [facility] [address],[place] [address] 09/10/2019 09:18:02 09/10/2019 16:52:04 Maternal obesity complicating , childbirth and the puerperium, antepartum 2374830607 07 O99.213 [id number] Jyothi Hernandez [facility] [address],[place] [address] 09/13/2019 14:12:53 09/13/2019 14:59:30 Maternal obesity complicating , childbirth and the puerperium, antepartum 7808372558 07 O99.213 [id number] Iza Cerda [facility] [address],[place] [address] 09/13/2019 14:13:23 09/13/2019 16:15:22 Routine care 318094584 Z34.82 [id number] Jonelle Walker [facility] [address],[place] [address] 09/17/2019 09:37:13 09/17/2019 13:42:43 Maternal obesity complicating , childbirth and the puerperium, antepartum 2576818386 07 O99.213 [id number] [facility] [address],[place] [address] 09/19/2019 16:37:50 09/21/2019 16:25:03 Maternal obesity complicating , childbirth and the puerperium, antepartum 4174804290 07 O99.210 O16.3 Z3A.33 [id number] [facility] [address],[place] [address] 09/19/2019 16:38:07 09/19/2019 17:24:14 Routine care 557977179 Z34.93 [id number] Jyothi Hernandez [facility] [address],[place] [address] 09/20/2019 09:21:45 09/20/2019 10:55:50 Maternal obesity complicating , childbirth and the puerperium, antepartum 0395377259 07 O99.213 [id number] Jyothi Hernandez [facility] [address],[place] [address] 09/24/2019 09:35:49 09/24/2019 11:10:26 Maternal obesity complicating , childbirth and the puerperium, antepartum 8755708683 07 O99.213 [id number] Jyothi Hernandez [facility] [address],[place] [address] 09/27/2019 09:36:25 09/27/2019 11:10:48 Maternal obesity complicating , childbirth and the puerperium, antepartum 1603047556 07 O99.213 [id number] Ede Maldonado MD [place] [address],[place] [address] 09/27/2019 09:36:51 09/27/2019 11:10:37 Routine care 986540608 Z34.83 [id number] Jyothi Henrandez [place] [address],[place] [address] 10/01/2019 09:35:23 10/01/2019 10:27:55 Maternal obesity complicating , childbirth and the puerperium, antepartum 2008943000 07 O99.213 [id number] Iza Cerda, [facility] [address],[place] [address] 10/01/2019 09:35:45 10/01/2019 11:39:40 Routine care 250248024 Z34.82 [id number] Jyothi Hernandez [facility] [address],[place] [address] 10/08/2019 09:45:57 10/08/2019 11:58:23 Maternal obesity complicating , childbirth and the puerperium, antepartum 3373213433 07 O99.213 [id number] Jyothi Hernandez [facility] [address],[place] [address] 10/11/2019 09:37:07 10/11/2019 10:41:42 Maternal obesity complicating , childbirth and the puerperium, antepartum 4129081746 07 O99.213 [id number] [facility] [address],[place] [address] 10/11/2019 09:37:54 10/11/2019 12:06:20 Routine care 130151246 Z34.82 [id number] Jonelle Walker [facility] [address],[place] [address] 10/11/2019 11:14:17 10/11/2019 13:29:21 condition affecting obstetrical care of mother 849974205 O36.8330 [id number] Jyothi Calleskisha [facility] [address],[place] [address] 10/15/2019 09:33:47 10/15/2019 10:21:06 Maternal obesity complicating , childbirth and the puerperium, antepartum 2621654330 07 O99.213 [id number] [facility] [address],[place] [address] 10/15/2019 09:54:02 08/04/2020 10:07:43 [id number] Iza Cerda [facility] [address],[place] [address] 11/15/2019 12:34:18 11/15/2019 13:50:00 care 810543059 Z39.2 f/u iud insertion 2 weeks, plan paragard, normal pp exam abstain until placement [id number] Ede Maldonado MD [place] [address],[place] [address] 11/27/2019 17:05:19 11/27/2019 17:30:17 Contraception care management 103351153 Z30.9 IUD was inserted without complicati ons. ParaGard. [id number] Ede Maldonado MD [place] [address],[place] [address] 12/27/2019 16:48:46 12/30/2019 14:48:01 Contraception care management 302138386 Z30.9 [id number] Ede Maldonado MD [place] [address],[place] [address] 04/13/2022 17:59:52 04/14/2022 15:00:33 Gynecologic examination 68345136 Z01.419 Annual gynecologi jessica exam performed. Patient will come back in a year unless there are new symptoms. Suggest Calcium with Vitamin D if not eating in diet. Patient advised to get annual flu shot. Recommend yearly physicals and preform monthly breast exams. Genetic testing is available for patients with family history of cancer. Engage in safe sexual practices, use condoms. Encouraged to have daily exercise. Avoid tobacco and illicit drugs, moderation of alcohol. If BMI greater than 25 dietary consult advised. If you have any questions please call or email. Modesta hendrix Pap - today patient has a complex ovarian cyst on the ovary. This was seen on ultrasound at outside [facility]. We will follow up with ultrasound on the complex cyst. [id number] Jocelin Mcdonnell [place] [address],[place] [address] 05/24/2022 17:36:25 05/25/2022 15:03:33 Cyst of ovary 93339114 N83.209 [id number] Ede Maldonado MD [place] [address],[place] [address] 06/08/2022 17:39:36 06/09/2022 12:51:50 Pain in pelvis 11307163 R10.2 26-year-ol d female with pelvic pain and ovarian cyst. The pain is resolved. We are here to review ultrasound today. She had images. We talked about 20 minutes. More than 50% was counseling . Her cyst is resolved to. We talked about her obesity. Talked about efforts she was making to lose weight. Talked about medication that would help her. She will follow up for any changes [id number] Ede Maldonado MD [place] [address],[place] [address] 09/23/2023 11:34:50 09/23/2023 12:26:57 Gynecologic examination 90351176 Z01.419 Annual gynecologi jessica exam performed. Patient will come back in a year unless there are new symptoms. Suggest Calcium with Vitamin D if not eating in diet. Patient advised to get annual flu shot. Recommend yearly physicals and preform monthly breast exams. Genetic testing is available for patients with family history of cancer. Engage in safe sexual practices, use condoms. Encouraged to have daily exercise. Avoid tobacco and illicit drugs, moderation of alcohol. If BMI greater than 25 dietary consult advised. If you have any questions please call or email. Pap smear-toda y laboratory evaluation -to do with PMD Bacterial vaginosis 4197 00399 N76.0 Health Concerns Section Related Observation LastModified by Organization Detai ls LastModified Time None Recorded Concern Status LastModified by Organization Details LastModified Time None Recorded Advance Directives Directive None Recorded Payers Encounter Date Sequence Insurance Name Policy Number Policy Mcconnell Covered Member ID Mcconnell Member ID Guarantor Name 12/27/2019 1 [facility] (MEDICAID HMO) [id number] 03 Deyabrijesh Campbell [id number] Deya Campbell 04/13/2022 1 [facility] [place] ([place] H[place]) [id number] 03 Deya Campbell [id number] Deya Adrian 05/24/2022 1 [facility] (MEDICAID HMO) [id number] 03 Deya Campbell [id number] Deya Adrian 06/08/2022 1 [facility] (MEDICAID HMO) [id number] 03 Deya Campbell [id number] Deya Campbell 09/23/2023 1 [facility] [id number] Deya Campbell [id number] Deya Campbell Notes Date Note Type Note Provider Name and Address Organization Details Recorded Time 12/27/2019 text/html This patient is a 24-year-old who presents for IUD check. She has no complaints. She was examined with a speculum. The cervix appears normal, the IUD string appears normally placed, the IUD was not visible. She will follow up as needed. Ede Maldonado MD [address], [place], [address], [facility] 12/27/2019 17:35:53 04/13/2022 text/html Annual GYNReport ed bypatient.History: no gynecologic complaints Menstrual cycle:Normal menses Urinary symptoms:No hematuria Vulva:No genital lesion Vagina:Normal vaginal discharge Breast:No breast pain; No breast lump Current Contraception:Sati sfied with current contraception; Intrauterine device (iud) Sexual complaints:No sexual complaints Psychological symptoms:No depression;Anxiety ; TXed Preventive measures:Encourage self breast examination; Encourage regular exercise Ede Maldonado MD [address], [place], [address], [facility] 04/13/2022 18:49:03 06/08/2022 text/html 26-year-old fema le with pelvic pain and ovarian cyst. The pain is resolved. We are here to review ultrasound today. She had images. We talked about 20 minutes. More than 50% was counseling. Her cyst is resolved to. We talked about her obesity. Talked about efforts she was making to lose weight. Talked about medication that would help her. She will follow up for any changes Ede Maldonado MD [address], [place], [address], [facility] 06/08/2022 21:55:53 09/23/2023 text/html Annual GYNReport ed bypatient.History: no gynecologic complaints Menstrual cycle:Normal menses Urinary symptoms:No hematuria Vulva:No genital lesion Vagina:Foul-smelli ng Breast:No breast pain; No breast lump Current Contraception:Intr auterine device (iud) Sexual complaints:Pain during intercourse Menopausal Symptoms:No menopausal symptoms Psychological symptoms:No depression;Anxiety ; Treated Preventive measures:Encourage self breast examination; Encourage regular exercise Ede Maldonado MD [address], [place], [address], [facility] 09/23/2023 12:26:08 OBGyn Episode Ob Episode Information Episode Created Date Number of Fetuses Patient Bloodtype Patient rh Status Prepregnancy Weight lbs Domestic Partner Domestic Partner Phone Father Name Character Actress Status 07/10/19 20 1 CLOSED Fetus Data First Name Last Name Admitted to NICU Weight (g) Sex Living Outcome Pediatric Complications Fetus ID Race Codes Race Delivery Type 2721.55 2 M Full Term 127 Vaginal Delivery Jak Calculation Initial Jak Date Initial Exam Date Initial Exam Provider Initial Ultrasound Date Last Menstrual Period Date Ultra Sound Weeks Gestation 0 Eighteen To Twenty Week Jak Update Ultra Sound Date Fundal Height At Umbil Quickening Date Ultra Sound Latest Weeks Gestation Final Jak Confirmed By Final Jak Confirmed Date Final Jak Date Ultra Sound Latest Days Gestation 0 0 Menstrual History Last Menstrual Date Menses Monthly On Bcp Conception Prior Menses Frequency Hcg Plus Date Menarche Onset Age Delivery Information Delivery Date Delivery Type Labor Anesthesia Weeks Gestation Incision Type Labor Labor Length Hrs Delivered By Post Complications Tubal Sterilization Discharge Date Comments 3 37 false Discharge Information Feeding Method Contraceptive Method Maternal HG B and HCT Levels Ob Episode Information Episode Created Date Number of Fetuses Patient Bloodtype Patient rh Status Prepregnancy Weight lbs Domestic Partner Domestic Partner Phone Father Name Character Actress Status 07/10/19 20 1 O Positive 289 CLOSED Fetus Data First Name Last Name Admitted to NICU Weight (g) Sex Living Outcome Pediatric Complications Fetus ID Race Codes Race Delivery Type 3798.83 3 F true Full Term 132 Vaginal Delivery Problems Problem Notes Problem Name Start Date End Date Resolution Snomed Code Not e History of hypertension 337370376 Lesion of liver 284864041 seei ng MFM *MFM RECOMMENDS LFP Q TRIMESTER!* (next appt 08/28/19), saw [facility] and then went to [facility]. waiting on records Anxiety disorder 266620311 Maternal obesity complicating , childbirth and the puerperium, antepartum 542458688792 NSTs @ 32 weeks !! Serial growth Jak Calculation Initial Jak Date Initial Exam Date Initial Exam Provider Initial Ultrasound Date Last Menstrual Period Date Ultra Sound Weeks Gestation 11/02/2019 07/10/2019 04/08/2019 01/01/2019 10 Eighteen To Twenty Week Jak Update Ultra Sound Date Fundal Height At Umbil Quickening Date Ultra Sound Latest Weeks Gestation Final Jak Confirmed By Final Jak Confirmed Date Final Jak Date Ultra Sound Latest Days Gestation 0 [email or web address] 08/23/2019 11/02/19 20 0 Pre- Flowsheet Flowsheet Date 07/10/2019 Bernabe Score Blood Edema Fundus Height Fundus Units Glucose Ketones Leukocytes Nitrite Labor Signs Protein Cervic Dilation Cervic Effacement Cervic Station 25 none trace Type Weight in lbs Pre/Post Dialysis Refused Weight 293.177559191286 BP Diastolic BP Location Tested BP Systolic BP Type 87 124 sitting Fetus Heart Rate Present A 150 Fetus Movement A Yes Comments Pt doing well. Has f/u u/s s cheduled with mfm in 4 weeks. Pt decided not to start progesterone injections. Flowsheet Date 04/30/2019 Bernabe Score Blood Edema Fundus Height Fundus Units Glucose Ketones Leukocytes Nitrite Labor Signs Protein Cervic Dilation Cervic Effacement Cervic Station trace Type Weight in lbs Pre/Post Dialysis Refused Weight 204.557468088241 BP Diastolic BP Location Tested BP Systolic BP Type 71 123 sitting Fetus Heart Rate Present Fetus Movement A No Comments This patient is a 23-year-ol d female presents for initial visit. She has a liver mass. We need to get as much detail on this as we can. She has diverticular disease. She has fatty liver disease also. She should see MFM at 20 weeks or sooner. Flowsheet Date 05/22/2019 Bernabe Score Blood Edema Fundus Height Fundus Units Glucose Ketones Leukocytes Nitrite Labor Signs Protein Cervic Dilation Cervic Effacement Cervic Station neg Type Weight in lbs Pre/Post Dialysis Refused Weight 284.145064666360 BP Diastolic BP Location Tested BP Systolic BP Type 84 132 sitting Fetus Heart Rate Present A 150 Fetus Movement Comments Pt is having a girl Akiko . Flowsheet Date 06/12/2019 Bernabe Score Blood Edema Fundus Height Fundus Units Glucose Ketones Leukocytes Nitrite Labor Signs Protein Cervic Dilation Cervic Effacement Cervic Station trace trace Type Weight in lbs Pre/Post Dialysis Refused Weight 290.0569723722 BP Diastolic BP Location Tested BP Systolic BP Type 82 137 sitting Fetus Heart Rate Present A 154 Fetus Movement A Yes Comments OB [id number] patient states th at having some pain, pressure, discharge, and swelling pt worried about son who has health issues, reviewed boundaries, time for herself, rest f/u mfm and see what there rec is cerclage vs progesterone, pt hesitant to be on meds during , sent home with 24 hr urine for baseline Flowsheet Date 08/07/2019 Bernabe Score Blood Edema Fundus Height Fundus Units Glucose Ketones Leukocytes Nitrite Labor Signs Protein Cervic Dilation Cervic Effacement Cervic Station 28 trace Type Weight in lbs Pre/Post Dialysis Refused Weight 300.742740588547 BP Diastolic BP Location Tested BP Systolic BP Type 85 128 Fetus Heart Rate Present A 155 Present Fetus Movement A Yes Comments Pt c/o swelling in her feet , lower back pains and sharp shooting pains in her stomach. glucose today Flowsheet Date 08/22/2019 Bernabe Score Blood Edema Fundus Height Fundus Units Glucose Ketones Leukocytes Nitrite Labor Signs Protein Cervic Dilation Cervic Effacement Cervic Station 32 trace Type Weight in lbs Pre/Post Dialysis Refused Weight 302.794936063940 BP Diastolic BP Location Tested BP Systolic BP Type 79 124 sitting Fetus Heart Rate Present A 146 Fetus Movement A Yes Comments Pt doing well. Will check la bs today per [facility] recommendation. Flowsheet Date 09/10/2019 Bernabe Score Blood Edema Fundus Height Fundus Units Glucose Ketones Leukocytes Nitrite Labor Signs Protein Cervic Dilation Cervic Effacement Cervic Station Type Weight in lbs Pre/Post Dialysis Refused BP Diastolic BP Location Tested BP Systolic BP Type Fetus Heart Rate Present Fetus Movement Comments Flowsheet Date 09/13/2019 Bernabe Score Blood Edema Fundus Height Fundus Units Glucose Ketones Leukocytes Nitrite Labor Signs Protein Cervic Dilation Cervic Effacement Cervic Station Type Weight in lbs Pre/Post Dialysis Refused BP Diastolic BP Location Tested BP Systolic BP Type Fetus Heart Rate Present Fetus Movement Comments Flowsheet Date 09/13/2019 Bernabe Score Blood Edema Fundus Height Fundus Units Glucose Ketones Leukocytes Nitrite Labor Signs Protein Cervic Dilation Cervic Effacement Cervic Station neg trace 36 trace Type Weight in lbs Pre/Post Dialysis Refused Weight 309.58228111936 BP Diastolic BP Location Tested BP Systolic BP Type 83 132 Fetus Heart Rate Present A 144 Fetus Movement A Yes Comments patient states that having b ack pain, pelvic pain, discharge, swelling, and nausea. Patient states had elevated blood pressure, headache and vision changes yesterday and states that is better today, PIH precautions, goes to [facility] on 09/24 for growth us, asymptomatic today and bp normotensive Flowsheet Date 09/17/2019 Bernabe Score Blood Edema Fundus Height Fundus Units Glucose Ketones Leukocytes Nitrite Labor Signs Protein Cervic Dilation Cervic Effacement Cervic Station Type Weight in lbs Pre/Post Dialysis Refused BP Diastolic BP Location Tested BP Systolic BP Type Fetus Heart Rate Present Fetus Movement Comments Flowsheet Date 09/19/2019 Bernabe Score Blood Edema Fundus Height Fundus Units Glucose Ketones Leukocytes Nitrite Labor Signs Protein Cervic Dilation Cervic Effacement Cervic Station 35 trace Type Weight in lbs Pre/Post Dialysis Refused Weight 313.668151510249 BP Diastolic BP Location Tested BP Systolic BP Type 83 L arm 132 sitting Fetus Heart Rate Present A 138 Fetus Movement A Yes Comments H/A x 1 week. No relief with rest and tylenol. Will send to L&D for pih evaluation and medication to treat headache. PIH precautions discussed. Flowsheet Date 09/19/2019 Bernabe Score Blood Edema Fundus Height Fundus Units Glucose Ketones Leukocytes Nitrite Labor Signs Protein Cervic Dilation Cervic Effacement Cervic Station Type Weight in lbs Pre/Post Dialysis Refused BP Diastolic BP Location Tested BP Systolic BP Type Fetus Heart Rate Present Fetus Movement Comments Flowsheet Date 09/20/2019 Bernabe Score Blood Edema Fundus Height Fundus Units Glucose Ketones Leukocytes Nitrite Labor Signs Protein Cervic Dilation Cervic Effacement Cervic Station Type Weight in lbs Pre/Post Dialysis Refused BP Diastolic BP Location Tested BP Systolic BP Type Fetus Heart Rate Present Fetus Movement Comments Flowsheet Date 09/24/2019 Bernabe Score Blood Edema Fundus Height Fundus Units Glucose Ketones Leukocytes Nitrite Labor Signs Protein Cervic Dilation Cervic Effacement Cervic Station Type Weight in lbs Pre/Post Dialysis Refused BP Diastolic BP Location Tested BP Systolic BP Type Fetus Heart Rate Present Fetus Movement Comments Flowsheet Date 09/27/2019 Bernabe Score Blood Edema Fundus Height Fundus Units Glucose Ketones Leukocytes Nitrite Labor Signs Protein Cervic Dilation Cervic Effacement Cervic Station Type Weight in lbs Pre/Post Dialysis Refused BP Diastolic BP Location Tested BP Systolic BP Type Fetus Heart Rate Present Fetus Movement Comments Flowsheet Date 09/27/2019 Bernabe Score Blood Edema Fundus Height Fundus Units Glucose Ketones Leukocytes Nitrite Labor Signs Protein Cervic Dilation Cervic Effacement Cervic Station 35 cm trace 3cm 50% -3 Type Weight in lbs Pre/Post Dialysis Refused Weight 314.660156072027 BP Diastolic BP Location Tested BP Systolic BP Type 64 122 Fetus Heart Rate Present A 145 Fetus Movement A Yes Comments Patient has marked symptoms of labor. She has a 3 cm cervix. She is going to labor and delivery to get steroids. Flowsheet Date 10/01/2019 Bernabe Score Blood Edema Fundus Height Fundus Units Glucose Ketones Leukocytes Nitrite Labor Signs Protein Cervic Dilation Cervic Effacement Cervic Station Type Weight in lbs Pre/Post Dialysis Refused BP Diastolic BP Location Tested BP Systolic BP Type Fetus Heart Rate Present Fetus Movement Comments Flowsheet Date 10/01/2019 Bernabe Score Blood Edema Fundus Height Fundus Units Glucose Ketones Leukocytes Nitrite Labor Signs Protein Cervic Dilation Cervic Effacement Cervic Station neg trace trace 3cm 50% -2 Type Weight in lbs Pre/Post Dialysis Refused Weight 315.433052460105 BP Diastolic BP Location Tested BP Systolic BP Type 86 129 Fetus Heart Rate Present Fetus Movement A Decreased Comments PATIENT STATES THAT HAVING S OME PAIN, PRESSURE, CONTRACTIONS, MUCUS DISCHARGE AND SOME SWELLING, NST R, CMP drawn today PTL precautions Flowsheet Date 10/08/2019 Bernabe Score Blood Edema Fundus Height Fundus Units Glucose Ketones Leukocytes Nitrite Labor Signs Protein Cervic Dilation Cervic Effacement Cervic Station Type Weight in lbs Pre/Post Dialysis Refused BP Diastolic BP Location Tested BP Systolic BP Type Fetus Heart Rate Present Fetus Movement Comments Flowsheet Date 10/11/2019 Bernabe Score Blood Edema Fundus Height Fundus Units Glucose Ketones Leukocytes Nitrite Labor Signs Protein Cervic Dilation Cervic Effacement Cervic Station Type Weight in lbs Pre/Post Dialysis Refused BP Diastolic BP Location Tested BP Systolic BP Type Fetus Heart Rate Present Fetus Movement Comments Flowsheet Date 10/11/2019 Bernabe Score Blood Edema Fundus Height Fundus Units Glucose Ketones Leukocytes Nitrite Labor Signs Protein Cervic Dilation Cervic Effacement Cervic Station Type Weight in lbs Pre/Post Dialysis Refused BP Diastolic BP Location Tested BP Systolic BP Type Fetus Heart Rate Present Fetus Movement Comments Flowsheet Date 10/11/2019 Bernabe Score Blood Edema Fundus Height Fundus Units Glucose Ketones Leukocytes Nitrite Labor Signs Protein Cervic Dilation Cervic Effacement Cervic Station neg trace trace Type Weight in lbs Pre/Post Dialysis Refused Weight 317.345398402604 BP Diastolic BP Location Tested BP Systolic BP Type 80 138 Fetus Heart Rate Present Fetus Movement A Decreased Comments patient has pressure, pain, BH contractions, swelling, and nausea, labor precautions, NST NR, BPP 8/8 total HEATHER 7.64 rpt one week Flowsheet Date 10/15/2019 Bernabe Score Blood Edema Fundus Height Fundus Units Glucose Ketones Leukocytes Nitrite Labor Signs Protein Cervic Dilation Cervic Effacement Cervic Station Type Weight in lbs Pre/Post Dialysis Refused BP Diastolic BP Location Tested BP Systolic BP Type Fetus Heart Rate Present Fetus Movement Comments Flowsheet Date 10/15/2019 Bernabe Score Blood Edema Fundus Height Fundus Units Glucose Ketones Leukocytes Nitrite Labor Signs Protein Cervic Dilation Cervic Effacement Cervic Station Type Weight in lbs Pre/Post Dialysis Refused BP Diastolic BP Location Tested BP Systolic BP Type Fetus Heart Rate Present Fetus Movement Comments Flowsheet Date 11/15/2019 Bernabe Score Blood Edema Fundus Height Fundus Units Glucose Ketones Leukocytes Nitrite Labor Signs Protein Cervic Dilation Cervic Effacement Cervic Station Type Weight in lbs Pre/Post Dialysis Refused Weight 309.78831252099 BP Diastolic BP Location Tested BP Systolic BP Type 84 150 Fetus Heart Rate Present Fetus Movement Comments Flowsheet Date 11/27/2019 Bernabe Score Blood Edema Fundus Height Fundus Units Glucose Ketones Leukocytes Nitrite Labor Signs Protein Cervic Dilation Cervic Effacement Cervic Station Type Weight in lbs Pre/Post Dialysis Refused Weight 313.428783132347 BP Diastolic BP Location Tested BP Systolic BP Type 94 146 Fetus Heart Rate Present Fetus Movement Comments Flowsheet Date 12/27/2019 Bernabe Score Blood Edema Fundus Height Fundus Units Glucose Ketones Leukocytes Nitrite Labor Signs Protein Cervic Dilation Cervic Effacement Cervic Station Type Weight in lbs Pre/Post Dialysis Refused Weight 318.606226622830 BP Diastolic BP Location Tested BP Systolic BP Type 96 R wrist 148 sitting Fetus Heart Rate Present Fetus Movement Comments Menstrual History Last Menstrual Date Menses Monthly On Bcp Conception Prior Menses Frequency Hcg Plus Date Menarche Onset Age 1001/01/2019 Genetic Screening And Infection History Question Response Note Mental Retardation/Autism false Patient's Age Will Be 35 Years Or Older At Estim ated Date of Delivery false Thalassemia (Nigerian, Lao, Mediterranean, Or Background): MCV < 80 false Neural Tube Defect (Meningomyelocele, Spina Bifi da, Or Anencephaly) false Congenital Heart Defect false Down Syndrome false Matteo-Sachs (eg, Confucianism, Cajun, Portuguese-Shawano) f alse Chase Disease false Sickle Cell Disease Or Trait () false Hemophilia Or Other Blood Disorders false Muscular Dystrophy false Cystic Fibrosis false Woodruff's Chorea false Intellectual Disability/Autism false If Yes, Was Person Tested For Fragile X? false Other Inherited Genetic Or Chromosomal Disorder false Maternal Metabolic Disorder (eg, Type 1 Diabetes , PKU) false Patient Or Baby's Father Had A Child With Defects Not Listed Above false Recurrent Loss, Or A Stillbirth false Medications (including Suppl ements, Vitamins, Herbs, OTC Drugs), Illicit/Recreational Drugs, Alcohol false If Yes, Agent(s) And Strength/Dosage false Any Other Genetic History false Live With Someone With TB Or Exposed To TB false Patient Or Partner Has History Of Genital Herpes false Rash Or Viral Illness Since Last Menstrual Perio d false History Of STD, Gonorrhea, Chlamydia, HPV, Syphi lis false Other Infection History false History of HIV false History of Hepatitis false Prior GBS-infected child false Hemoglobinopathy Or Carrier false Other Structural Defect false Recent Travel History Outside of Country false Delivery Information Delivery Date Delivery Type Labor Anesthesia Weeks Gestation Incision Type Labor Labor Length Hrs Delivered By Post Complications Tubal Sterilization Discharge Date Comments 0 Sponta neous Regional-Ep idural 37.6 obesi ty/l iver lesion Discharge Information Feeding Method Contraceptive Method Maternal HG B and HCT Levels Ob Episode Information Episode Created Date Number of Fetuses Patient Bloodtype Patient rh Status Prepregnancy Weight lbs Domestic Partner Domestic Partner Phone Father Name Character Actress Status 07/10/19 20 1 CLOSED Fetus Data First Name Last Name Admitted to NICU Weight (g) Sex Living Outcome Pediatric Complications Fetus ID Race Codes Race Delivery Type 3089.86 [id number] M Prematur e 133 Vaginal Delivery Jak Calculation Initial Jak Date Initial Exam Date Initial Exam Provider Initial Ultrasound Date Last Menstrual Period Date Ultra Sound Weeks Gestation 0 Eighteen To Twenty Week Jak Update Ultra Sound Date Fundal Height At Umbil Quickening Date Ultra Sound Latest Weeks Gestation Final Jak Confirmed By Final Jak Confirmed Date Final Jak Date Ultra Sound Latest Days Gestation 0 0 Menstrual History Last Menstrual Date Menses Monthly On Bcp Conception Prior Menses Frequency Hcg Plus Date Menarche Onset Age Delivery Information Delivery Date Delivery Type Labor Anesthesia Weeks Gestation Incision Type Labor Labor Length Hrs Delivered By Post Complications Tubal Sterilization Discharge Date Comments 9 36 true pt's bab y in september 2018 with possible heart issues Discharge Information Feeding Method Contraceptive Method Maternal HG B and HCT Levels Ob Episode Information Episode Created Date Number of Fetuses Patient Bloodtype Patient rh Status Prepregnancy Weight lbs Domestic Partner Domestic Partner Phone Father Name Character Actress Status 11/04/19 20 1 DELETED Jak Calculation Initial Jak Date Initial Exam Date Initial Exam Provider Initial Ultrasound Date Last Menstrual Period Date Ultra Sound Weeks Gestation 0 Eighteen To Twenty Week Jak Update Ultra Sound Date Fundal Height At Umbil Quickening Date Ultra Sound Latest Weeks Gestation Final Jak Confirmed By Final Jak Confirmed Date Final Jak Date Ultra Sound Latest Days Gestation 0 0 Menstrual History Last Menstrual Date Menses Monthly On Bcp Conception Prior Menses Frequency Hcg Plus Date Menarche Onset Age Delivery Information Delivery Date Delivery Type Labor Anesthesia Weeks Gestation Incision Type Labor Labor Length Hrs Delivered By Post Complications Tubal Sterilization Discharge Date Comments 0 37 Discharge Information Feeding Method Contraceptive Method Maternal HG B and HCT Levels
--- OUTSIDE RECORDS SUMMARY | 2024-04-14 17:47 | XMS_ITS | Encounter Summary ---
Author Organization [facility] Address [address] [place] [address] Phone Care Team Providers Care Excavator Backhoe Operator Name Role Phone Vipin Bedoya DO Primary Care Provider +1- [phone] Reason for Visit * Reason Onset Date Comments newneuropt 03/14/2024 Encounter Details Date Type Department Care Team (Late st Contact Info) Description 03/14/2024 Telephone [facility] [address] [place], [place] [id number] Clifton Fitzgerald MD [address] [address] newneuropt Social History Tobacco Use Types Packs/Day Years Used Date Smoking Tobacco: Never Smokeless Tobacco: Never Personal Safety Answer Date Recorded Getting School Help Needed Not on file 06/15 Comments Unknown Sex and Gender Information Value Date Recorded Sex Assigned at Not on file Legal 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 ICATING MACHINE SERVICER * Telephone Encounter - Dotty Badillo - 03/14/2024 1:51 PM CST Office note uploaded into [employer]. ICATING MACHINE SERVICER * Telephone Encounter - Dagmar Goldstein - 03/14/2024 9:57 AM CST New Patient Appointment: Is Appointment Scheduled? Yes If yes: Date of Appointment? 05.29 Provider Scheduled with: [facility] If No: Why? N/a Referring doctor: Dr. Parveen Rodriguez Referring Physician Specialty: Wildlife Removal Specialist Referring doctor contact information: [phone] Reason/Diagnoses: optic nerve edema How long has patient been experiencing symptoms?: Appt Needed: Next Available If sooner than next available: Referring provider must specify reason for urgency: n/a Please confirm that you have requested records be faxed. yes Additional comments: ICATING MACHINE SERVICER documented in this encounter Plan of Treatment Not on file documented as of this encounter Visit Diagnoses Not on filedocumented in this encounter Care Teams Excavator Backhoe Operator Relationship Specialty Start Date End Date Vipin Bedoya DO PCP - General Internal Medicine 10/16/23 documented as of this encounter
--- OUTSIDE RECORDS SUMMARY | 2024-04-14 17:47 | XMS_ITS | Encounter Summary ---
Author Organization [facility] Address [address] [place] [address] Phone Care Team Providers Care Secretary Board Of Commissioners Name Role Phone Vipin Bedoya DO Primary Care Provider +1- [phone] Reason for Referral * MRI/CAT/PET Scan (Routine) - Closed Specialty Diagnoses / Procedures Referred By Ritika bonner Referred To Contact Radiology Diagnoses Venous insufficiency S/P insertion of iliac artery stent Procedures [place] [id number] [facility] [address] [place] [id number] Phone: tel: fax: [address] [address] Referral ID Status Reason Start Date Expiration Date Visits Re quested Visits Authorized [id number] Closed 10/16/2023 04/13/2024 1 1 Reason for Visit * Consultation (Routine) - Authorized Specialty Diagnoses / Procedures Referred By Ritika bonner Referred To Contact Vascular Surgery Diagnoses Venous insufficiency Atherosclerosis of renal artery (HCC) Vipin Bedoya DO Phone: tel: fax: [place] [address] [address] [facility] [address], [place] [address] Phone: tel: fax: Referral ID Status Reason Start Date Expiration Date Visits Requested Visits Authorized [id number] Authorized Specialty Services Required 09/28/2023 10/27/2024 12 12 Encounter Details Date Type Department Care Team (Late st Contact Info) Description 10/16/2023 11:30 AM CDT Office Visit [facility] Surgery [address] [facility] [address], [place] [address] [place] [address] 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 I have personally taken a history, examined the patient and determined the assessment and plan as outlined below. CHIEF COMPLAINT: BLE leg swelling HISTORY OF PRESENT ILLNESS: Patient is a 27 y.o. female and has a history of HTN, HLD, CATHERINE, migraines, fatty liver, morbid obesity and sleep apnea who presents today for evaluation of venous insufficiency and renal artery stenosis. She has had chronic swelling in her legs for years,left worse than right, with some visible varicosities. The swelling is painful and makes walking difficult. She has a sedentary job what walks a few miles every day. She wears thigh high compression almost daily and elevates her legs while she is working. She denies history of ulcerations. Her PCP recommended she seek a second opinion. She had seen cardiology who placed iliac ?vein stents a few years ago. She states her swelling did not have any significant improvement. She denies history of DVT. She was also told during this procedure that she had renal artery disease but not significant enough stenosis to warrant stents. She has been trying to lose weight and is considering bariatric surgery per PCP notes. IRMA appears falsely elevated due to non-compressible vessels but has normal digit pressure and multiphasic tibial waveforms to suggest minimal, if any, PVD. Venous reflux did not show any reflux in the saphenous veins, just in the right superficial femoral vein. Renal duplex did not show any evidence of renal artery stenosis. No past medical history on file. No past surgical history on file. No family history on file. Social History Tobacco Use Smoking status: Not on file Smokeless tobacco: Not on file Substance and Sexual Activity Drug use: Not on file Sexual activity: Not on file Alcohol Use: Not At Risk (12/23/2019) Received from [employer] Frequency of Alcohol Consumption: Never Average Number of Drinks: Not on file Frequency of Binge Drinking: Not on file Allergies as of 10/16/2023 (Not on File) No current outpatient medications on file. REVIEW OF SYSTEMS: The patient???s vascular health history form was reviewed and signed by me dated 10/16/2023 The form was scanned into [employer]. PHYSICAL EXAMINATION: VITAL SIGNS: Vitals BP 131/82 (BP Location: Left arm, Patient Position: Sitting) Pulse 85 Temp 36.6 ??C (97.9 ??F) (Temporal) Resp 16 Ht 157.5 cm (5' 2 ) Wt (!) 146 kg (321 lb 12.8 oz) SpO2 99% BMI 58.86 kg/m?? HENT: Normocephalic and atraumatic. Extraocular movements are intact. Moist mucus membranes. EYES: Pupils are equal and reactive to light bilaterally. NECK: Supple with no lymphadenopathy CHEST: Symmetric chest expansion with no accessory muscle usage HEART: Regular rate and rhythm. ABDOMEN: Soft, nontender, nondistended. VASCULAR: Palpable radial pulse, palpable common femoral artery pulses and DP, trace edema RLE, +1 edema LLE, visible varicosities bilateral (most pronounced on left calf) MUSCULOSKELETAL: Warm, well perfused NEURO: Grossly intact motor and sensory exam. SKIN: No visible rashes. No wounds VASCULAR LABS: I personally reviewed the report and images of: VENOUS REFLUX IRMA RADIOLOGY: I personally reviewed the report and images of: Renal duplex Patient Active Problem List Diagnosis Abdominal pain Abnormal blood chemistry level Abnormal computed tomography scan Anxiety Blood glucose abnormal Calf pain Cataracts, bilateral Depressive disorder Diverticulitis Edema Essential hypertension Fatigue Frequent headaches Generalized anxiety disorder GERD (gastroesophageal reflux disease) Hyperglycemia Hyperlipidemia Insomnia Iron deficiency anemia Lesion of liver Lumbar herniated disc Migraine headache Morbid obesity (HCC) NAFLD (nonalcoholic fatty liver disease) Peripheral vascular disease (HCC) Prediabetes Renal impairment Sleep apnea Swelling of lower leg Uses intrauterine device for control ASSESSMENT/PLAN: Deya Campbell is a 27 y.o. female patient who presents for evaluation of venous insufficiency and renal artery stenosis. -She has had chronic swelling in her legs for years, left worse than right, with some visible varicosities. This causes significant pain and makes it difficult to walk. She had iliac ?vein stents placed by cardiology that did not significantly change the swelling. -I personally reviewed testing from today. Venous reflux did not show any reflux in superficial veins. She has a small amount in a deep vein for which there is no intervention recommended. -Will obtain CT venogram to evaluate iliac ?vein stents and her anatomy for May Thurner or an extrinsic cause of iliac compression -She endorses compliance with conservative management with wearing compression and elevating frequently throughout the day. Encouraged she continue this as well as walking as it seems to help her swelling as well. -Discussed weight loss. Will help with venous return. She is considering bariatric surgery -IRMA is non-compressible but has excellent waveforms and digit pressures with palpable pulse to suggest mild, if any, PVD. She denies claudication, rest pain or tissue loss. No intervention indicated. -Renal duplex did not indicate any significant stenosis. Her BP is controlled on 3 medications. No flash pulmonary edema. -She takes a baby aspirin. -Will call with results of CT venogram Total time: 45 minutes. This includes time spent with the patient during the visit discussing venous insufficiency and management as well as time spent before and after the visit reviewing the chart,documenting the encounter, making phone calls, reviewing studies, etc Amanda Brooke NP Vascualr Surgery Cosigned by Loco Hansen MD at 10/18/2023 9:23 AM CDT documented in this encounter Plan of Treatment Scheduled Orders Name Type Priority Associated Diagnoses Orde r Schedule CT IVC Venogram Imaging Schedule Routine , Read Routine (OP Routine) Venous insufficiency Stenosis of iliac vein Expected: 10/16/2023, Expires: 10/15/2024 documented as of this encounter Visit Diagnoses Diagnosis Varicose veins of lower extremity with edema, bilateral- Primary Venous insufficiency Unspecified venous (peripheral) insufficiency Atherosclerosis of renal artery (HCC) Atherosclerosis of renal artery Stenosis of iliac vein Peripheral vascular disease (HCC) Unspecified peripheral vascular disease documented in this encounter Historical Medications * This list may reflect changes made after this encounter. spironolactone (ALDACTONE) 25 mg tablet Take 1 tablet (25 mg total) by mouth daily 01/30/2023 Nurtec ODT tablet,disintegr ating DISSOLVE 1 TABLET ON THE TONGUE EVERY DAY NEEDED FOR MIGRAINE 09/28/[address] (PROTONIX) 40 mg EC tablet TAKE 1 TABLET BY MOUTH EVERY DAY FOR GERD metoprolol tartrate (LOPRESSOR) 50 mg immediate release tablet Take 1 tablet (50 mg total) by mouth 2 (two) times a day 03/30/2022 losartan (COZAAR) 100 mg tablet Take 1 tablet (100 mg total) by mouth daily 09/28/2021 gabapentin (NEURONTIN) 100 mg capsule Take 1 capsule (100 mg total) by mouth 3 (three) times a day 09/28/2021 furosemide (LASIX) 40 mg tablet Take 1 tablet (40 mg total) by mouth daily ferrous sulfate 325 mg (65 mg of elemental iron) tablet Take 1 tablet (325 mg total) by mouth daily 09/28/[address] (CYMBALTA) 20 mg capsule Take 1 capsule (20 mg total) by mouth 2 (two) times a day cholecalciferol (VITAMIN D-3) 50,000 unit capsule Take 1 capsule (50,000 Units total) by mouth once a week aspirin 81 mg chewable tablet CHEW AND SWALLOW 1 TABLET BY MOUTH ONCE A DAY 05/05/2022 amLODIPine (NORVASC) 10 mg tablet Take 1 tablet (10 mg total) by mouth daily 02/07/2022 albuterol HFA (PROVENTIL HFA,VENTOLIN HFA,PROAIR HFA) 90 mcg/actuation inhaler INHALE 1 PUFF BY MOUTH FOUR TIMES DAILY NEEDED FOR SHORTNESS OF BREATH OR WHEEZING added in this encounter Orders Outpatient Referral Count Last Ordered Date Fir st Ordered Date AMB REFERRAL TO VASCULAR SURGERY 10/16/19 documented in this encounter Care Teams Secretary Board Of Commissioners Relationship Specialty Start Date End Date Vipin Bedoya DO PCP - General Internal Medicine 10/16/23 documented as of this encounter
--- OUTSIDE RECORDS SUMMARY | 2024-04-14 17:47 | XMS_ITS | Encounter Summary ---
Author Organization [facility] Healthcare Address [address] [place] [address] Care Team Providers Care Coil Repair Technician Name Role Phone Vipin Bedoya DO Primary Care Provider [phone] Reason for Referral * Diagnostic Imaging (Routine) - Closed Specialty Diagnoses / Procedures Referred By Jackiac t Referred To Contact Diagnoses Renal artery stenosis (HCC) Procedures US Renal Limited Including Duplex Doppler Bilateral Complete (C) [place] [id number] [address] [place] [address] Phone: tel: fax: [address] [phone] Referral ID Status Reason Start Date Expiration Date Visits Re quested Visits Authorized [id number] Closed 10/03/2023 11/01/2024 1 1 Reason for Visit * Diagnostic Imaging (Routine) - Closed Specialty Diagnoses / Procedures Referred By Contac t Referred To Contact Diagnoses Renal artery stenosis (HCC) Procedures US Renal Limited Including Duplex Doppler Bilateral Complete (C) [place] [id number] [address] [address] Phone: tel: fax: [address] [phone] Referral ID Status Reason Start Date Expiration Date Visits Re quested Visits Authorized [id number] Closed 10/03/2023 11/01/2024 1 1 Encounter Details Date Type Department Care Team (Latest Contact Info) Description 10/16/2023 9:52 AM CDT - 10/16/2023 11:59 PM CDT Hospital Encounter [facility] [address] [place] [address] Renal artery stenosis (HCC) Discharge Disposition: Discharge to home or self care Social History Tobacco Use Types Packs/Day Years Used Date Smoking Tobacco: Never Smokeless Tobacco: Never Personal Safety Answer Date Recorded Getting School Help Needed Not on file 06/15 Comments Unknown Sex and Gender Information Value Date Recorded Sex Assigned at Not on file 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 Gender Identity Not on file Sexual Orientation Not on file documented as of this encounter Medications at Time of Discharge albuterol HFA (PROVENTIL HFA,VENTOLIN HFA,PROAIR HFA) 90 mcg/actuation inhaler INHALE 1 PUFF BY MOUTH FOUR TIMES DAILY NEEDED FOR SHORTNESS OF BREATH OR WHEEZING amLODIPine (NORVASC) 10 mg tablet Take 1 tablet (10 mg total) by mouth daily 02/07/2022 aspirin 81 mg chewable tablet CHEW AND SWALLOW 1 TABLET BY MOUTH ONCE A DAY 05/05/2022 cholecalciferol (VITAMIN D-3) 50,000 unit capsule Take 1 capsule (50,000 Units total) by mouth once a week DULoxetine DR (CYMBALTA) 20 mg capsule Take 1 capsule (20 mg total) by mouth 2 (two) times a day ferrous sulfate 325 mg (65 mg of elemental iron) tablet Take 1 tablet (325 mg total) by mouth daily 09/28/2021 furosemide (LASIX) 40 mg tablet Take 1 tablet (40 mg total) by mouth daily gabapentin (NEURONTIN) 100 mg capsule Take 1 capsule (100 mg total) by mouth 3 (three) times a day 09/28/2021 losartan (COZAAR) 100 mg tablet Take 1 tablet (100 mg total) by mouth daily 09/28/2021 metoprolol tartrate (LOPRESSOR) 50 mg immediate release tablet Take 1 tablet (50 mg total) by mouth 2 (two) times a day 03/30/2022 Nurtec ODT tablet,disintegr ating DISSOLVE 1 TABLET ON THE TONGUE EVERY DAY NEEDED FOR MIGRAINE 09/28/[address] (PROTONIX) 40 mg EC tablet TAKE 1 TABLET BY MOUTH EVERY DAY FOR GERD spironolactone (ALDACTONE) 25 mg tablet Take 1 tablet (25 mg total) by mouth daily 01/30/2023 documented as of this encounter Discharge Disposition Disposition Code Departure Means Destination Discharge to home or self care documented in this encounter Plan of Treatment Not on file documented as of this encounter Procedures Procedure Name Priority Date/Time Associated Diagnosis Comments US RENAL LIMITED INCLUDING DUPLEX DOPPLER BILATERAL COMPLETE (C) Schedule Routine, Read Routine (OP Routine) 10/16/2023 10:33 AM CDT Renal artery stenosis (HCC) documented in this encounter Results * US Renal Limited Including Duplex Doppler Bilateral Complete (C) (10/16/2023 10:33 AM CDT) Anatomical Region Laterality Modality Vascular N/A Ultrasound 10/16/2023 3:50 PM CDT Impressions 10/16/2023 3:50 PM CDT There is no duplex evidence of renal artery stenosis in the right and left renal arteries Electronically signed by: Terri Goel M.D. Narrative 10/16/2023 3:50 PM CDT EXAMINATION: US RENAL LIMITED INCLUDING DUPLEX DOPPLER BILATERAL COMPLETE (C) HISTORY: The patient is a 27-year-old female who has clinical suspicion of renal artery stenosis. TECHNIQUE: Bilateral renal artery duplex study was performed with cole scale imaging, color Doppler imaging and spectral waveform analysis. FINDINGS: The right kidney measures 12.1 x 6.1 x 7.9 cm and the left kidney measures 14.0 x 7.6 x 6.6 cm in size. No hydronephrosis, calculi or perinephric fluid collection. Both renal veins are patent with normal Doppler waveforms being obtained bilaterally. On the right side, peak systolic velocity in the origin of the right renal artery is 70 cm/s, in the proximal is 90 cm/s, in the mid is 100 cm/s and hilum is 86 cm/s with a right renal artery/aorta ratio of 0.51. Peak systolic velocity in the origin of the left renal artery is 90 cm/s, in the proximal is 87 cm/s, in the mid is 105 cm/s in the hilum is 44 cm/s with a left renal artery/aorta ratio of 0.65. Procedure Note Terri Goel MD - 10/16/2023 EXAMINATION: US RENAL LIMITED INCLUDING DUPLEX DOPPLER BILATERAL COMPLETE (C) HISTORY: The patient is a 27-year-old female who has clinical suspicion of renal artery stenosis. TECHNIQUE: Bilateral renal artery duplex study was performed with cole scale imaging, color Doppler imaging and spectral waveform analysis. FINDINGS: The right kidney measures 12.1 x 6.1 x 7.9 cm and the left kidney measures 14.0 x 7.6 x 6.6 cm in size. No hydronephrosis, calculi or perinephric fluid collection. Both renal veins are patent with normal Doppler waveforms being obtained bilaterally. On the right side, peak systolic velocity in the origin of the right renal artery is 70 cm/s, in the proximal is 90 cm/s, in the mid is 100 cm/s and hilum is 86 cm/s with a right renal artery/aorta ratio of 0.51. Peak systolic velocity in the origin of the left renal artery is 90 cm/s, in the proximal is 87 cm/s, in the mid is 105 cm/s in the hilum is 44 cm/s with a left renal artery/aorta ratio of 0.65. IMPRESSION: There is no duplex evidence of renal artery stenosis in the right and left renal arteries Electronically signed by: Terri Goel M.D. us Loco Hansen MD IM US PROCEDURES Final Resu lt documented in this encounter Visit Diagnoses Diagnosis Renal artery stenosis (HCC) Atherosclerosis of renal artery documented in this encounter Care Teams Coil Repair Technician Relationship Specialty Start Date End Date Vipin Bedoya DO PCP - General Internal Medicine 10/16/23 documented as of this encounter
--- OUTSIDE RECORDS SUMMARY | 2024-04-14 17:47 | XMS_ITS | Clinical Summary ---
Author Organization [facility] Building [facility] Address [address] [place] [address] Care Team Providers Care Greenhouse Florist Name Role Phone Vipin Bedoya DO Primary Care Provider [phone] Allergies Active Allergy Reactions Criticality Noted Date [...] and anxiety disorder. 4. Ongoing assessment at [facility] visits. Last Assessment & Plan: Condition: stable Follow up in: if symptoms worsen or fail to improve Cataracts, bilateral 01/02/2019 Overview (10/16/2023): Has artificial lens in left eye Last Assessment & Plan: Having decreased nighttime vision Maternal Medicine recommendations: 1. recommend follow-up with confectionery laboratory manager GERD (gastroesophageal reflux disease) 9 Overview (10/16/2023): [...] testing every trimester--to be ordered by primary industrial sewer, please send copy of recent results. 2. Follow up with GI as recommended in fall for repeat MRI and fibroscan. Hyperlipidemia 05/08/2017 Lumbar herniated disc 04/03/2014 Overview (10/16/2023): Last Assessment & Plan: Remains bothersome with use of maternity support belt. Denies any falls. Has PT referral and has not made appointment. Swimming with some relief. [facility] Plan: 1. Again encouraged to reach out to physical therapy, she assures me she has the order form at home. Uses intrauterine device for control 10/21 Depressive disorder 05/21/2012 Encounters Date Type Department Care Team Description 03/14/2024 Telephone [facility] Ophthalmology [address] [place] [address] Clifton Fitzgerald MD [email or web address] from Last 3 Months Social History Tobacco Use Types Packs/Day Years Used Date Smoking Tobacco: Never Smokeless Tobacco: Never Tobacco Cessation:Counseling Given: Not Answered Personal Safety Answer Date Recorded Getting School Help Needed Not on file 06/15 Comments Unknown Sex and Gender Information Value Date Recorded Sex Assigned at Not on file 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 Gender Identity Not on file Sexual Orientation Not on file Obstetrics History Last Filed Vital Signs Vital Sign Reading [...] 10/16/2023 11:02 AM CDT Plan of Treatment Health Maintenance Due Date Last Done Comments Cervical Cancer Screening 1994 Depression Screening 1994 Hepatitis C Screening 1994 Pneumococcal vaccine <65 (1 of 2 - PCV) 2000 Regular Well Visit/Exam 18-64 2012 Covid-19 Vaccine (2 - 2023-2 5 season) 2023 02/04/2021 Influenza Vaccine (#1) 2023 , 01/03/2019, 01/26/2018, Additional history exists DTaP/Tdap/Td Vaccine (9 - Td or Tdap) 10/18/2029 10/19/2019, 08/01/2018, 10/27/2008, Additional history exists Varicella Vaccines Completed 11/27/2006, 03/07/1996 HPV Vaccines Completed 01/08/2008, 02/01, 11/27/2006 Insurance [facility] CIGNA CIGNA Care Teams Greenhouse Florist Relationship Specialty Start Date End Date Vipin Bedoya DO PCP - General Internal Medicine 10/16/23
--- OUTSIDE RECORDS SUMMARY | 2024-04-14 17:47 | XMS_ITS | CONTINUITY OF CARE DOCUMENT ---
Author Name josep car Address Unknown Organization [facility] Address [address] [place] [address] [address] [place] [address] Phone [phone] Care Team Providers Care Rn Manager Name Role Phone Jacky Amos MD Unavailable [phone] Jacky Amos MD Unavailable [phone] DAVID SANDOVAL DO Unavailable PROBLEMS Condition Status Date Provider Notes Cardiology examination active Jacky Noel Hypertension active Jacky Amos MD Snoring active Jacky Amos MD Obesity active Jacky Amos MD CHEST PAIN active Jacky Amos MD Leg edema, left active Jacky Amos MD Liver disease active Jacky Amos MD Venous insufficiency - S/P i liac vein stents bilateral 04/2022 active Araceli Wood Hepatic cyst active Araceli Wood MOOSE active Petr Neville Renal artery stenosis ?? active Araceli ferrarasmeyer Proteinuria active Araceli Wood ENCOUNTERS Date Type Provider Location Encounter Diag nosis - In-person encounter Office Visit Jacky Amos MD [facility] - In-person encounter Office Visit Jacky Amos MD [facility] MOOSE - In-person encounter Office Visit Jacky Amos MD [facility] Venous insufficiency - S/P iliac vein st ents bilateral 04/2022Hepatic cyst - In-person encounter Office Visit Jacky Amos MD [facility] Renal artery stenosis ?? - In-person encounter Office Visit Jacky Amos MD [facility] Venous insufficiency - S/P iliac vein st ents bilateral roteinuria - In-person encounter Office Visit Jacky Amos MD [facility] Cardiology examinationHypertensionSnoringObesityCHEST PAINLeg edema, leftLiver disease VITAL SIGNS Date Observation Value Provider Body Mass Index (Ratio) 60.72 kg/m2 Jimmy Neville blood pressure, diastolic 84 mm[Hg] Chastity nkLog blood pressure, systolic 177 mm[Hg] Laura kLog blood pressure, cuff size large Otto [facility] blood pressure, diastolic 84 mm[Hg] Otto [facility] blood pressure, systolic 177 mm[Hg] [facility] pulse rate 78 /min Jeremiah respiratory rate E&M 16 /min Jeremiah oxygen saturation, oximetry 98 % [facility] weight E&M 332 [lb_av] Jeremiah height E&M 62 [in_i] Jeremiah Body Mass Index (Ratio) 58.52 kg/m2 Jimmy Neville pulse rate 73 /min Melissa Yeboah blood pressure, diastolic 86 mm[Hg] Berenice Yeboah blood pressure, systolic 142 mm[Hg] Batsheva Yeboah oxygen saturation, oximetry 98 % Melissa Yeboah weight E&M 320 [lb_av] Melissa Yeboah blood pressure, cuff size regular Berenice Yeboah height E&M 62 [in_i] Melissa Obinna Body Mass Index (Ratio) 62.40 kg/m2 Racheal Branketty height E&M 62 [in_i] Monica Barnard weight E&M 341.2 [lb_av] Monica Barnard blood pressure, diastolic 93 mm[Hg] Dnaya Barnard blood pressure, systolic 108 mm[Hg] She dawson Barnard blood pressure, cuff size regular Danya Barnard pulse rate 82 /min Monica Barnard oxygen saturation, oximetry 99 % Monica Barnard respiratory rate E&M 20 /min Monica Evon Body Mass Index (Ratio) 63.46 kg/m2 Racheal villarreal Nina blood pressure, diastolic 105 mm[Hg] St acy El blood pressure, systolic 162 mm[Hg] Sta cy El oxygen saturation, oximetry 99 % Carmen El pulse rate 81 /min Carmen El weight E&M 347 [lb_av] Carmen El respiratory rate E&M 18 /min Carmen D kate height E&M 62 [in_i] Carmen El weight E&M 343 [lb_av] Janay Wilson Body Mass Index (Ratio) 62.77 kg/m2 Racheal villarreal Nina blood pressure, diastolic -1 mm[Hg] Chastity nkLoglilibeth blood pressure, systolic 176 mm[Hg] Laura kLoglilibeth blood pressure, diastolic 117 mm[Hg] St acy El blood pressure, systolic 176 mm[Hg] Sta cy El respiratory rate E&M 18 /min Carmen D kate oxygen saturation, oximetry 97 % Carmen El pulse rate 83 /min Carmen El weight E&M 343.2 [lb_av] Carmen Gallegos height E&M 62 [in_i] Carmen Gallegos ALLERGIES No Known Drug Allergies HISTORY OF MEDICATION USE Medication Status Instructions Dates Provider Indications Com ments amlodipine 10 mg tablet active TAKE 1 TABLET BY MOUTH EVERY DAY Jyothi Ventimiglia [employer] Lasix 40 mg tablet active TAKE 1 TABLET BY MOUTH EVERY DAY Jyothi Ventimiglia [employer] losartan 100 mg tablet active Take 1 tablet by mouth once a day Jyothi Pearlmiglia [employer] metoprolol tartrate 50 mg tablet active TAKE 1 TABLET BY MOUTH TWICE A DAY DIRECTED Jyothi Ventimiglia [employer] spironolactone 25 mg tablet active Take 1 tablet by mouth once a day Jyothi Ventimiglia [employer] metoprolol tartrate 50 mg tablet completed TAKE 1 TABLET BY MOUTH TWICE DAILY - Jyothi Pearlmiglpoly [facility] amlodipine 10 mg tablet completed TAKE 1 TABLET BY MOUTH EVERY DAY - [facility] Camarillomiglia [facility] metoprolol tartrate 50 mg tablet completed Take 1 tablet by mouth twice a day - [facility] Las[facility] 40 mg tablet completed Take 1 tablet by mouth every morning - Jyothiprashant Kangmiglpoly [facility] spironolactone 25 mg tablet completed - Jyothiprashant Kangmiglpoly [facility] amlodipine 10 mg tablet completed Take 1 tablet by mouth once a day - Jyothiprashant Kangmiglpoly [facility] zonisamide 25 mg capsule completed - Jyothiprashant Obregonia [facility] Nurtec ODT 75 mg tablet,disintegra ting active Carmen Gallegos Vitamin C 500 mg tablet completed - Jyothiprashant SZYMANSKIP losartan 100 mg tablet completed - Jyothi SZYMANSKIP gabapentin 100 mg capsule active Carmen Gallegos Advair Diskus 100-50 mcg/dose blister with device active Carmen Gallegos SOCIAL HISTORY Date Observation Value Provider personal history of marijuana use no Jyothi Ventimiglia [employer] drug use no Jyothi Ventimig capri [facility] alcohol use no Jyothi Ventimig capri [facility] passive cigarette sm jorge exposure no Jyothi Ventimiglia [facility] chewing tobacco use Never Jyothi V entimiglia [facility] smoking status Never smoker Jyothi Ventim iglia [facility] smoking status Never smoker Petr Ya bharat social history reviewed E&M revi ewed - no changes required Jacky Amos MD passive cigarette sm jorge exposure no Melissakasie Yeboah chewing tobacco use Never Melissa Randal campa smoking status Never smoker Monica Evon social history reviewed E&M revi ewed - no changes required Jcaky Amos MD number of grandchildren Jacky Amos MD social history reviewed E&M revi ewed - no changes required Jacky Amos MD social history E&M S moking History: Emani aguilar has never smoked. Jacky Amos MD passive cigarette sm jorge exposure no Jacky Amos MD chewing tobacco use Never Jacky machuca MD smoking status Never smoker Jacky Noel social history E&M S moking History: Emani aguilar has never smoked. Jacky Amos MD social history reviewed E&M revi ewed - no changes required Jacky Amos MD passive cigarette sm jorge exposure no Carmen Gallegos chewing tobacco use Never Carmen Gonzalez smoking status Never smoker Carmen Gallegos social history reviewed E&M revi ewed - no changes required Araceli Wood FAMILY HISTORY Family Member Condition Father CAD male <55 INSURANCE PROVIDERS Payer name Policy type / Coverage type [place] [employer] democr[employer] ID [employer] CE[employer] 10 [id number] ADVANCE DIRECTIVES Name Date DISCUSSED - NO DECISION MADE TREATMENT PLAN Date Name Performer [id number],B, leg swelling improved Petr Neville [id number],B,B P is better controlled BP today: 142/86 P rior BP: 108/93 (05/09/2022) Her updated medication list for this problem includes: Amlodipine 10 Mg Tablet (Amlodipine) ..... Take 1 tablet by mouth once a day Amlodipine 10 Mg Tablet (Amlodipine) ..... Take 1 tablet by mouth every day Metoprolol Tartrate 50 Mg Tablet (Metoprolol tartrate) ..... Take 1 tablet by mouth twice a day Lasix 40 Mg Tablet (Furosemide) ..... Take 1 tablet by mouth every morning Spironolactone 25 Mg Tablet (Spironolactone) Losartan 100 Mg Tablet (Losartan) Petr Yari [id number],S,S he has sleep apnea and I recommend CPAP machine Petr Yari [id number],S, W eight loss advised Araceli Wood [id number],C, CT was performed and there was incidental finding of hepatic cyst. The pt is aware of it and she is under routine follow up for this finding, thus will refer her to the physician for that. Araceli Wood [id number],C, B P today: 108/93 P rior BP: 162/105 (03/30/2022) Her updated medication list for this problem includes: Metoprolol Tartrate 50 Mg Tablet (Metoprolol tartrate) ..... Take 1 tablet by mouth twice a day Lasix 40 Mg Tablet (Furosemide) ..... Take 1 tablet by mouth every morning Spironolactone 25 Mg Tablet (Spironolactone) Amlodipine 10 Mg Tablet (Amlodipine) ..... Take 1 tablet by mouth once a day Losartan 100 Mg Tablet (Losartan) Araceli Wood [id number],C,T he pt underwent successful stent of the iliac veins b/l. Renal artery was normal. Post procedure she had pain, so CT was performed and there was incidental finding of hepatic cyst. The pt is aware of it and she is under routine follow up for this finding, thus will refer her to the physician for that. She reports significant improvement of leg pain and swelling. Ideally we should proceed to Venaseal, however due to insurance, we cannot proceed at this time. Araceli Nina [id number],C,. She was told be her glass curvature gauger that she has renal artery stenosis. We did not see it on our duplex, she will provide the study for my review Araceli Nina [id number],S, Jacky Amos MD [id number],S, Jacky Amos MD [id number],C, She has venous insufficiency bilaterally and complains of leg heaviness, swelling, and throbbing. Plan for venography with IVUS on May 04 Jacky Amos MD [id number],C,D oing well on current med rx, continue medical therapy Her updated medication list for this problem includes: Metoprolol Tartrate 50 Mg Tablet (Metoprolol tartrate) ..... Take 1 tablet by mouth twice a day Lasix 40 Mg Tablet (Furosemide) ..... Take 1 tablet by mouth every morning Spironolactone 25 Mg Tablet (Spironolactone) Amlodipine 10 Mg Tablet (Amlodipine) ..... Take 1 tablet by mouth once a day Losartan 100 Mg Tablet (Losartan) Jacky Amos MD [id number],S, W eight loss advised Araceli Wood [id number],C,E cho showed normal EF. Renal artery duplex was normal, however limited quality. Stress test was normal. Will add metoprolol 50 mg BID and Lasix 40 mg daily. B P today: 162/105 H er updated medication list for this problem includes: Metoprolol Tartrate 50 Mg Tablet (Metoprolol tartrate) ..... Take 1 tablet by mouth twice a day Lasix 40 Mg Tablet (Furosemide) ..... Take 1 tablet by mouth every morning Spironolactone 25 Mg Tablet (Spironolactone) Amlodipine 10 Mg Tablet (Amlodipine) ..... Take 1 tablet by mouth once a day Losartan 100 Mg Tablet (Losartan) Aracelicherelle Branketty [id number],C, Will repeat home sleep study, was not completed. Araceli Nina [id number],C, She does have proteinuria, following with nephrology. Araceli Nina [id number],C, She has venous insufficiency bilaterally and complains of leg heaviness, swelling, and throbbing, and will schedule venography with IVUS. Araceli Wood [id number],C,W eight loss advised Araceli Wood [id number],C,Will obtain v enous duplex Araceli Nina [id number],C,Will obtain h ome sleep study Araceli Nina [id number],C,T his is a morbidly obese patient with HTN from a young age. Complaining of chest pain and leg edema. Reported no benefit from HCTZ. Will add amlodipine 10 mg daily. Will obtain echo, stress test routine, venous duplex of the lower extremities with relfux, renal artery duplex, hoem sleep study, and labwork, CBC, CMP, A1C, proBNP, TSH, and microalbumin. B P today: 176/117 Her updated medication list for this problem includes: Amlodipine 10 Mg Tablet (Amlodipine) ..... Take 1 tablet by mouth once a day Losartan 100 Mg Tablet (Losartan) Araceli Nina [id number],C,T his is a morbidly obese patient with HTN from a young age. Complaining of chest pain and leg edema. Reported no benefit from HCTZ. Will add amlodipine 10 mg daily. Will obtain echo, stress test routine, venous duplex of the lower extremities with relfux, renal artery duplex, hoem sleep study, and labwork, CBC, CMP, A1C, proBNP, TSH, and microalbumin. Araceli Wood Cardiology:weight loss encourage d. Petr Neville Cardiology:unable to afford CPAP Petr Neville Cardiology:would leroy efit fom venaseal will arrange s he has continued swelling and pain in the LE e ncouraged continued compression Petr Neville Cardiology:Unclear e tiology may be r/t uncontrolled BP l ast echo showed EF of 60% and last treadmill stress test negative w ill update echo to look for any LVH or WMA Petr Neville Cardiology:Blood pre ssure elevated most likely d/t non-compliance will refill medications W ill have her monitor blood pressure at home. T he following medications were removed from the medication list: Losartan 100 Mg Tablet (Losartan) Spironolactone 25 Mg Tablet (Spironolactone) Amlodipine 10 Mg Tablet (Amlodipine) ..... Take 1 tablet by mouth once a day Metoprolol Tartrate 50 Mg Tablet (Metoprolol tartrate) ..... Take 1 tablet by mouth twice daily Lasix 40 Mg Tablet (Furosemide) ..... Take 1 tablet by mouth every morning Amlodipine 10 Mg Tablet (Amlodipine) ..... Take 1 tablet by mouth every day Her updated medication list for this problem includes: Losartan 100 Mg Tablet (Losartan) ..... Take 1 tablet by mouth once a day Amlodipine 10 Mg Tablet (Amlodipine) ..... Take 1 tablet by mouth every day Lasix 40 Mg Tablet (Furosemide) ..... Take 1 tablet by mouth every day Losartan 100 Mg Tablet (Losartan) ..... Take 1 tablet by mouth once a day Metoprolol Tartrate 50 Mg Tablet (Metoprolol tartrate) ..... Take 1 tablet by mouth twice a day as directed Spironolactone 25 Mg Tablet (Spironolactone) ..... Take 1 tablet by mouth once a day Petr Neville Cardiology: leg swelling improve d Petr Neville Cardiology:BP is bet ter controlled BP today: 142/86 P rior BP: 108/93 (05/09/2022) Her updated medication list for this problem includes: Amlodipine 10 Mg Tablet (Amlodipine) ..... Take 1 tablet by mouth once a day Amlodipine 10 Mg Tablet (Amlodipine) ..... Take 1 tablet by mouth every day Metoprolol Tartrate 50 Mg Tablet (Metoprolol tartrate) ..... Take 1 tablet by mouth twice a day Lasix 40 Mg Tablet (Furosemide) ..... Take 1 tablet by mouth every morning Spironolactone 25 Mg Tablet (Spironolactone) Losartan 100 Mg Tablet (Losartan) Petr Neville Cardiology:She has s leep apnea and I recommend CPAP machine Petr Neville Cardiology: W eight loss advised Araceli Wood Cardiology: CT was p erformed and there was incidental finding of hepatic cyst. The pt is aware of it and she is under routine follow up for this finding, thus will refer her to the physician for that. Araceli Wood Cardiology: B P today: 108/93 P rior BP: 162/105 (03/30/2022) Her updated medication list for this problem includes: Metoprolol Tartrate 50 Mg Tablet (Metoprolol tartrate) ..... Take 1 tablet by mouth twice a day Lasix 40 Mg Tablet (Furosemide) ..... Take 1 tablet by mouth every morning Spironolactone 25 Mg Tablet (Spironolactone) Amlodipine 10 Mg Tablet (Amlodipine) ..... Take 1 tablet by mouth once a day Losartan 100 Mg Tablet (Losartan) Araceli Wood Cardiology:The pt un derwent successful stent of the iliac veins b/l. Renal artery was normal. Post procedure she had pain, so CT was performed and there was incidental finding of hepatic cyst. The pt is aware of it and she is under routine follow up for this finding, thus will refer her to the physician for that. She reports significant improvement of leg pain and swelling. Ideally we should proceed to Venaseal, however due to insurance, we cannot proceed at this time. Araceli Wood Cardiology:. She was told be her glass curvature gauger that she has renal artery stenosis. We did not see it on our duplex, she will provide the study for my review Araceli Wood Cardiology Jacky Amos MD Cardiology Jacky Amos MD Cardiology: She has venous insufficiency bilaterally and complains of leg heaviness, swelling, and throbbing. Plan for venography with IVUS on May 04 Jacky Amos MD Cardiology:Doing wel l on current med rx, continue medical therapy Her updated medication list for this problem includes: Metoprolol Tartrate 50 Mg Tablet (Metoprolol tartrate) ..... Take 1 tablet by mouth twice a day Lasix 40 Mg Tablet (Furosemide) ..... Take 1 tablet by mouth every morning Spironolactone 25 Mg Tablet (Spironolactone) Amlodipine 10 Mg Tablet (Amlodipine) ..... Take 1 tablet by mouth once a day Losartan 100 Mg Tablet (Losartan) Jacky Amos MD Cardiology: W eight loss advised Araceli Wood Cardiology:Echo show ed normal EF. Renal artery duplex was normal, however limited quality. Stress test was normal. Will add metoprolol 50 mg BID and Lasix 40 mg daily. B P today: 162/105 Her updated medication list for this problem includes: Metoprolol Tartrate 50 Mg Tablet (Metoprolol tartrate) ..... Take 1 tablet by mouth twice a day Lasix 40 Mg Tablet (Furosemide) ..... Take 1 tablet by mouth every morning Spironolactone 25 Mg Tablet (Spironolactone) Amlodipine 10 Mg Tablet (Amlodipine) ..... Take 1 tablet by mouth once a day Losartan 100 Mg Tablet (Losartan) Araceli Wood Cardiology: Will rep eat home sleep study, was not completed. Araceli Wood Cardiology: She does have proteinuria, following with nephrology. Araceli Wood Cardiology: She has venous insufficiency bilaterally and complains of leg heaviness, swelling, and throbbing, and will schedule venography with IVUS. Araceli Nina Cardiology:Weight lo ss advised Araceli Nina Cardiology:Will obtain venous du plex Araceli Nina Cardiology:Will obtain home slee p study Araceli Branketty Cardiology:This is a morbidly obese patient with HTN from a young age. Complaining of chest pain and leg edema. Reported no benefit from HCTZ. Will add amlodipine 10 mg daily. Will obtain echo, stress test routine, venous duplex of the lower extremities with relfux, renal artery duplex, hoem sleep study, and labwork, CBC, CMP, A1C, proBNP, TSH, and microalbumin. B P today: 176/117 Her updated medication list for this problem includes: Amlodipine 10 Mg Tablet (Amlodipine) ..... Take 1 tablet by mouth once a day Losartan 100 Mg Tablet (Losartan) Aracelicherelle Branketty Cardiology:This is a morbidly obese patient with HTN from a young age. Complaining of chest pain and leg edema. Reported no benefit from HCTZ. Will add amlodipine 10 mg daily. Will obtain echo, stress test routine, venous duplex of the lower extremities with relfux, renal artery duplex, hoem sleep study, and labwork, CBC, CMP, A1C, proBNP, TSH, and microalbumin. Araceli Wood Date Name [facility]enaSeal Complete Echo PROTHROMBIN TIME WIT H INR LIPID PANEL CBC (INCLUDES DIFF/P LT) BASIC METABOLIC PANE L W/EGFR Venogram w/ IVUS - G C Sleep Study Home Venous Doppler Bilat eral LE - Reflux Microalb/Creatinine Urine, Random TSH, free T4, total T3 CBC (INCLUDES DIFF/P LT) HEMOGLOBIN A1c LIPID PANEL PROBNP, N TERMINAL COMPREHENSIVE METABO LIC PANEL, W/EGFR Sleep Study Home Renal Artery Duplex Stress Routine Complete Echo HISTORY OF PROCEDURES Procedure Date Procedure Name Provider Procedure Notes S tatus EKG Jacky Amos MD completed EKG Jacky Amos MD completed
--- OUTSIDE RECORDS SUMMARY | 2024-04-14 17:48 | XMS_ITS | Encounter Summary ---
Author Organization [facility] Healthcare Address [address] [place] [address] Care Team Providers Care Soap Tender Name Role Phone Antonette Roy NP Primary Care Provider [phone] Reason for Referral * Diagnostic Imaging (Routine) - Closed Specialty Diagnoses / Procedures Referred By Contac t Referred To Contact Diagnoses Pain in left leg [place] in [place] [address] [address] [place] [address] Phone: tel: fax: [address] [phone] Referral ID Status Reason Start Date Expiration Date Visits Re quested Visits Authorized [id number] Closed 10/03/2023 11/01/2024 1 1 Reason for Visit * Diagnostic Imaging (Routine) - Closed Specialty Diagnoses / Procedures Referred By Contac t Referred To Contact Diagnoses Pain in left leg Pain in [place] [address] [address] [address] [address] Phone: tel: fax: [address] [phone] Referral ID Status Reason Start Date Expiration Date Visits Re quested Visits Authorized [id number] Closed 10/03/2023 11/01/2024 1 1 Encounter Details Date Type Department Care Team (Latest Contact Info) Description 10/11/2023 8:02 AM CDT - 10/11/2023 11:59 PM CDT Hospital Encounter [facility] Vascular Lab [address] [id number] Pain in left leg; Pain in right leg Discharge Disposition: Discharge to home or self care Social History Tobacco Use Types Packs/Day Years Used Date Smoking Tobacco: Never Assessed Personal Safety Answer Date Recorded Getting School Help Needed Not on file 06/15 Comments Unknown Sex and Gender Information Value Date Recorded Sex Assigned at Not on file 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 Gender Identity Not on file Sexual Orientation Not on file documented as of this encounter Medications at Time of Discharge amLODIPine (NORVASC) 10 mg tablet Take 1 tablet (10 mg total) by mouth daily 02/07/2022 aspirin 81 mg chewable tablet CHEW AND SWALLOW 1 TABLET BY MOUTH ONCE A DAY 05/05/2022 ferrous sulfate 325 mg (65 mg of elemental iron) tablet Take 1 tablet (325 mg total) by mouth daily 09/28/2021 gabapentin [...] (two) times a day 03/30/2022 Nurtec ODT tablet,disintegra ting DISSOLVE 1 TABLET ON THE TONGUE EVERY DAY NEEDED FOR MIGRAINE 09/28/2021 spironolactone (ALDACTONE) 25 mg tablet Take 1 tablet (25 mg total) by mouth daily 01/30/2023 documented as of this encounter Discharge Disposition Disposition Code Departure Means Destination Discharge to home or self care documented in this encounter Plan of Treatment Not on file documented as of this encounter Procedures Procedure Name Priority Date/Time Associated Diagnosis Comments US IRMA Schedule Routine, Read Routine (OP Routine) 10/11/2023 8:30 AM CDT Pain in left leg Pain in right leg documented in this encounter Results * US IRMA (10/11/2023 8:30 AM CDT) Anatomical Region Laterality Modality Vascular N/A Ultrasound 10/11/2023 3:48 PM CDT Impressions 10/11/2023 3:48 PM CDT RIGHT LEG:No definite evidence of arterial insufficiency at rest. There is limited evaluation of IRMA due to noncompressible vessels, subject to that TBI is normal. LEFT LEG:No definite evidence of arterial insufficiency at rest. There is limited evaluation of IRMA due to noncompressible vessels, subject to that TBI is normal. Electronically signed by: Sergio Araya MD Narrative 10/11/2023 3:48 PM CDT EXAMINATION: BILATERAL LOWER EXTREMITY ANKLE BRACHIAL INDEX WITH DOPPLER DATE: 10/11/2023 9:45 AM HISTORY: Pain in Leg, Left COMPARISON: No pertinent prior imaging for comparison TECHNIQUE: Standard technique was employed for bilateral lower extremity ABIs including Doppler images with spectral waveform analysis. ?? FINDINGS: SITE ? PRESSURE ? INDEX ? RT BRACHIAL ?122 ? RT ANKLE PT ?181 ? 1.48 RT ANKLE DP ?165 ? 1.35 RT DIGIT ? 129 ? 1.06 Right dorsalis pedis waveform is multiphasic and the posterior tibial waveform is multiphasic. The digital waveform is Pulsatile LT BRACHIAL ?120 ? LT ANKLE PT ? 199 ? 1.63 LT ANKLE DP ? 182 ? 1.49 LT DIGIT ? 134 ? 1.10 Left dorsalis pedis waveform is multiphasic and the posterior tibial waveform is multiphasic. The digital waveform is Pulsatile Procedure Note Sergio Montoya MD - 10/11/2023 EXAMINATION: BILATERAL LOWER EXTREMITY ANKLE BRACHIAL INDEX WITH DOPPLER DATE: 10/11/2023 9:45 AM HISTORY: Pain in Leg, Left COMPARISON: No pertinent prior imaging for comparison TECHNIQUE: Standard technique was employed for bilateral lower extremity ABIs including Doppler images with spectral waveform analysis. FINDINGS: SITE PRESSURE INDEX RT BRACHIAL 122 RT ANKLE PT 181 1.48 RT ANKLE DP 165 1.35 RT DIGIT 129 1.06 Right dorsalis pedis waveform is multiphasic and the posterior tibial waveform is multiphasic. The digital waveform is Pulsatile LT BRACHIAL 120 LT ANKLE PT 199 1.63 LT ANKLE DP 182 1.49 LT DIGIT 134 1.10 Left dorsalis pedis waveform is multiphasic and the posterior tibial waveform is multiphasic. The digital waveform is Pulsatile IMPRESSION: RIGHT LEG:No definite evidence of arterial insufficiency at rest. There is limited evaluation of IRMA due to noncompressible vessels, subject to that TBI is normal. LEFT LEG:No definite evidence of arterial insufficiency at rest. There is limited evaluation of IRMA due to noncompressible vessels, subject to that TBI is normal. Electronically signed by: Sergio Araya MD us Loco Hansen MD IM US PROCEDURES Final Resu lt documented in this encounter Visit Diagnoses Diagnosis Pain in left leg Pain in right leg documented in this encounter Care Teams Soap Tender Relationship Specialty Start Date End Date Antonette Roy NP PCP - General Internal Medicine 10/29/20 10/15/23 documented as of this encounter
--- OUTSIDE RECORDS SUMMARY | 2024-04-14 17:48 | XMS_ITS | Encounter Summary ---
Author Organization [facility] Healthcare Address [address] [place] [address] Care Team Providers Care Pigment Furnace Tender Name Role Phone Antonette Roy NP Primary Care Provider [phone] Reason for Referral * Diagnostic Imaging (Routine) - Closed Specialty Diagnoses / Procedures Referred By Contac t Referred To Contact Diagnoses Pain in left leg Pain in right leg Procedures [place] [address] [address] [facility] [address] [place] [id number] Phone: tel: fax: [address] [phone] Referral ID Status Reason Start Date Expiration Date Visits Re quested Visits Authorized [id number] Closed 10/03/2023 11/01/2024 1 1 Reason for Visit * Diagnostic Imaging (Routine) - Closed Specialty Diagnoses / Procedures Referred By Contac t Referred To Contact Diagnoses Pain in left leg Pain in right leg Procedures [place] [address] [address] [facility] [address] [address] Phone: tel: fax: [address] [phone] Referral ID Status Reason Start Date Expiration Date Visits Re quested Visits Authorized [id number] Closed 10/03/2023 11/01/2024 1 1 Encounter Details Date Type Department Care Team (Latest Contact Info) Description 10/11/2023 7:46 AM CDT - 10/11/2023 11:59 PM CDT Hospital Encounter [facility] Vascular Lab [address] [phone] Pain in left leg; Pain in right leg Discharge Disposition: Discharge to home or self care Social History Tobacco Use Types Packs/Day Years Used Date Smoking Tobacco: Never Assessed Personal Safety Answer Date Recorded Getting School Help Needed Not on file 06/15 Comments Unknown Sex and Gender Information Value Date Recorded Sex Assigned at Not on file 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 There is 0.8 seconds reflux noted in the right superficial femoral vein. Electronically signed by: Terri Goel M.D. Narrative 10/11/2023 4:43 PM CDT EXAMINATION: US VENOUS REFLUX BILATERAL HISTORY: The patient is a 19-year-old female who presents with pain in both legs. TECHNIQUE: Bilateral lower extremity venous duplex study was performed, evaluating the deep veins with grayscale imaging, color Doppler imaging and spectral waveform analysis. Following this, the superficial venous system was evaluated with diameter measurements and evaluation for reflux or superficial venous thrombosis. FINDINGS: Deep venous system: There is normal compressibility and phasicity in the right and the left common femoral, superficial femoral and popliteal veins. There is 0.8 seconds reflux noted in the right superficial femoral vein. ??There is no reflux noted throughout the remainder of the deep veins of the lower extremities. Superficial venous system evaluation. Right side: The diameter of the right greater saphenous vein at the saphenofemoral junction is 4.7 mm, in the proximal thigh is 4.9 mm, in the mid thigh is 5.0 mm and distal thigh is 4.9 mm. ??The diameter of the right greater saphenous vein in the proximal calf is 4.1 mm and distal calf is 2.3 mm. There is no superficial venous thrombus in this vein nor is any reflux demonstrated. The diameter of the right lesser saphenous vein in the proximal calf is 2.0 mm and distal calf is 2.6 mm. There is no reflux or superficial venous thrombosis noted in this vein. Left side: The diameter of the left greater saphenous vein at the saphenofemoral junction is 6.6 mm, in the proximal thigh is 6.8 mm, in the mid thigh is 3.2 mm and distal thigh is 4.4 mm. ??The diameter of the left greater saphenous vein in the proximal calf is 3.7 mm and distal calf is 2.3 mm. No reflux or superficial venous thrombosis noted in the vein. The diameter of the left lesser saphenous vein in the proximal calf is 3.0 mm and distal calf is 3.2 mm. No reflux or superficial venous thrombosis seen in this vein. Procedure Note Terri Goel MD - 10/11/2023 EXAMINATION: US VENOUS REFLUX BILATERAL HISTORY: The patient is a 19-year-old female who presents with pain in both legs. TECHNIQUE: Bilateral lower extremity venous duplex study was performed, evaluating the deep veins with grayscale imaging, color Doppler imaging and spectral waveform analysis. Following this, the superficial venous system was evaluated with diameter measurements and evaluation for reflux or superficial venous thrombosis. FINDINGS: Deep venous system: There is normal compressibility and phasicity in the right and the left common femoral, superficial femoral and popliteal veins. There is 0.8 seconds reflux noted in the right superficial femoral vein. There is no reflux noted throughout the remainder of the deep veins of the lower extremities. Superficial venous system evaluation. Right side: The diameter of the right greater saphenous vein at the saphenofemoral junction is 4.7 mm, in the proximal thigh is 4.9 mm, in the mid thigh is 5.0 mm and distal thigh is 4.9 mm. The diameter of the right greater saphenous vein in the proximal calf is 4.1 mm and distal calf is 2.3 mm. There is no superficial venous thrombus in this vein nor is any reflux demonstrated. The diameter of the right lesser saphenous vein in the proximal calf is 2.0 mm and distal calf is 2.6 mm. There is no reflux or superficial venous thrombosis noted in this vein. Left side: The diameter of the left greater saphenous vein at the saphenofemoral junction is 6.6 mm, in the proximal thigh is 6.8 mm, in the mid thigh is 3.2 mm and distal thigh is 4.4 mm. The diameter of the left greater saphenous vein in the proximal calf is 3.7 mm and distal calf is 2.3 mm. No reflux or superficial venous thrombosis noted in the vein. The diameter of the left lesser saphenous vein in the proximal calf is 3.0 mm and distal calf is 3.2 mm. No reflux or superficial venous thrombosis seen in this vein. IMPRESSION: There is no DVT or superficial venous thrombosis noted in the right and left lower extremities. There is 0.8 seconds reflux noted in the right superficial femoral vein. Electronically signed by: Terri Goel M.D. Loco Hansen MD [facility] PROCEDURES Final Resu lt documented in this encounter Visit Diagnoses Diagnosis Pain in left leg Pain in right leg documented in this encounter Care Teams Pigment Furnace Tender Relationship Specialty Start Date End Date Antonette Roy NP PCP - General Internal Medicine 10/29/20 10/15/23 documented as of this encounter
--- OUTSIDE RECORDS SUMMARY | 2024-04-14 17:48 | XMS_ITS | Encounter Summary ---
Author Organization [facility] Address [address] [place] [address] Phone Care Team Providers Care Water Meter Installer Name Role Phone Antonette Roy NP Primary Care Provider [phone] Reason for Referral * Diagnostic Imaging (Routine) - Closed Specialty Diagnoses / Procedures Referred By Contac t Referred To Contact Diagnoses Renal artery stenosis (HCC) Procedures US Renal Limited Including Duplex Doppler Bilateral Complete (C) [place] [address] [address] [facility] [address] [place] [address] Phone: tel: fax: [address] [phone] Referral ID Status Reason Start Date Expiration Date Visits Re quested Visits Authorized [id number] Closed 10/03/2023 11/01/2024 1 1 * Diagnostic Imaging (Routine) - Closed Specialty Diagnoses / Procedures Referred By Contac t Referred To Contact Diagnoses Pain in left leg Pain in right leg Procedures [place] [address] [address] [facility] [address] [place] [address] Phone: tel: fax: [address] [phone] Referral ID Status Reason Start Date Expiration Date Visits Re quested Visits Authorized [id number] Closed 10/03/2023 11/01/2024 1 1 * Diagnostic Imaging (Routine) - Closed Specialty Diagnoses / Procedures Referred By Ritika t Referred To Contact Diagnoses Pain in left leg Pain in right leg [place] [address] [address] [address] Phone: tel: fax: [address] [phone] Referral ID Status Reason Start Date Expiration Date Visits Re quested Visits Authorized [id number] Closed 10/03/2023 11/01/2024 1 1 Encounter Details Date Type Department Care Team (Late st Contact Info) Description 10/03/2023 Orders Only [facility] Surgery [address] [place] [address] Medical Office Building [address] [place] [phone] [place] [address] [address] [facility] [address] [place] [address] Pain in left leg (Primary Dx); Pain in right leg; Renal artery stenosis (HCC) Social History Tobacco Use Types Packs/Day Years Used Date Smoking Tobacco: Never Assessed Personal Safety Answer Date Recorded Getting School Help Needed Not on file 06/15 Comments Unknown Sex and Gender Information Value Date Recorded Sex Assigned at Not on file 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 Loco Hansen MD IMG US PROCEDURES Final Resu lt * US Venous Reflux Bilateral (10/11/2023 9:30 [...] vein. Electronically signed by: Terri Goel M.D. us Loco Hansen MD IMG US PROCEDURES Final Resu lt * US IRMA (10/11/2023 8:30 AM CDT) [...] normal. Electronically signed by: Sergio Araya MD [facility] Hansen MD [facility] PROCED[facility] Final Resu lt documented in this encounter Visit Diagnoses Diagnosis Pain in left leg- Primary Pain in right leg Renal artery stenosis (HCC) Atherosclerosis of renal artery Pain in left leg Pain in right leg Pain in left leg Pain in right leg Renal artery stenosis (HCC) Atherosclerosis of renal artery documented in this encounter Care Teams Water Meter Installer Relationship Specialty Start Date End Date Antonette Roy NP PCP - General Internal Medicine 10/29/20 10/15/23 documented as of this encounter
--- OUTSIDE RECORDS SUMMARY | 2024-04-14 17:48 | XMS_ITS | Encounter Summary ---
Author Organization [facility] Address [address] [place] [address] Phone Care Team Providers Care Nurse Healthcare Manager Name Role Phone Antonette Roy NP Primary Care Provider [phone] Vipin Bedoya DO Primary Care Provider [phone] Reason for Visit * Reason Onset Date Comments neuro appointment 10/09/2023 Encounter Details Date Type Department Care Team (Late st Contact Info) Description 10/09/2023 Telephone [facility] Ophthalmology [address] [place], [place] [id number] Emma Bates MD [address] [id number] neuro appointment Social History Tobacco Use Types Packs/Day Years Used Date Smoking Tobacco: Never Assessed Personal Safety Answer Date Recorded Getting School Help Needed Not on file 06/15 Comments Unknown Sex and Gender Information Value Date Recorded Sex Assigned at Not on file 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 * Telephone Encounter - Aleida Loza CMA - 10/09/2023 2:00 PM CDT Spoke with pt advised no refferal has been sent over has of 10/08. Will check back states neurologistand eye provider will be sending info. * Telephone Encounter - Priyanka Bejarano - 10/09/2023 11:44 AM CDT Pt called to check status of neuro op appointment. Records in [facility]. Pt#[phone] documented in this encounter Plan of Treatment Not on file documented as of this encounter Visit Diagnoses Not on filedocumented in this encounter Care Teams Nurse Healthcare Manager Relationship Specialty Start Date End Date Antonette Roy NP PCP - General Internal Medicine 10/29/20 10/15/23 Vipin Bedoya DO PCP - General Internal Medicine 10/16/23 documented as of this encounter
--- OUTSIDE RECORDS SUMMARY | 2024-04-14 20:09 | XMS_ITS | CONTINUITY OF CARE DOCUMENT ---
Author Name josep car Address Unknown Organization [facility] Address [address] [place] [address] [address] [address] Phone [phone] Care Team Providers Care Feed Grinder Name Role Phone Jacky Amos MD Unavailable [phone] Jacky Amos MD Unavailable [phone] DAVID SANDOVAL DO Unavailable PROBLEMS Condition Status Date Provider Notes MOOSE active Petr Neville Hepatic cyst active Araceli Wood Renal artery stenosis ?? active Araceli Menjivar cobsmeyer Proteinuria active Araceli Wood Venous insufficiency - S/P i liac vein stents bilateral 04/2022 active Araceli Wood Liver disease active Jacky Amos MD Leg edema, left active Jacky Amos MD CHEST PAIN active Jacky Amos MD Obesity active Jacky Amos MD Snoring active Jacky Amos MD Hypertension active Jacky Amos MD Cardiology examination active Jacky Noel ENCOUNTERS Date Type Provider Location Encounter Diag nosis - In-person encounter Office Visit Jacky Amos MD [place] [facility] - In-person encounter Office Visit Jacky Amos MD [place] [facility] MOOSE - In-person encounter Office Visit Jacky Amos MD [place] [facility] Venous insufficiency - S/P iliac vein st ents bilateral 04/2022Hepatic cyst - In-person encounter Office Visit Jacky Amos MD [facility] Office Renal artery stenosis ?? - In-person encounter Office Visit Jacky Amos MD [place] [facility] Venous insufficiency - S/P iliac vein st ents bilateral roteinuria - In-person encounter Office Visit Jacky Amos MD [place] [facility] Cardiology examinationHypertensionSnoringObesityCHEST PAINLeg edema, leftLiver disease VITAL SIGNS Date Observation Value Provider Body Mass Index (Ratio) 60.72 kg/m2 Jimmy Neville blood pressure, diastolic 84 mm[Hg] Chastity nkLog blood pressure, systolic 177 mm[Hg] Laura kLog blood pressure, cuff size large [facility] blood pressure, diastolic 84 mm[Hg] [facility] blood pressure, systolic 177 mm[Hg] [facility] pulse rate 78 /min Jeremiah respiratory rate E&M 16 /min Jeremiah oxygen saturation, oximetry 98 % [facility] weight E&M 332 [lb_av] Jeremiah height E&M [...] Monica Barnard blood pressure, diastolic 93 mm[Hg] Danya Barnard blood pressure, systolic 108 mm[Hg] She [...] Carmen El weight E&M 343 [lb_av] Janay Wilsno Body Mass Index (Ratio) 62.77 kg/m2 Racheal [...] TABLET BY MOUTH EVERY DAY Jyothi Ventimiglia DENTAL TECHNICIAN APPRENTICE Lasix 40 mg tablet active TAKE 1 TABLET BY MOUTH EVERY DAY Jyothi Ventimiglia DENTAL TECHNICIAN APPRENTICE losartan 100 mg tablet active Take 1 tablet by mouth once a day Jyothi Pearlmiglia DENTAL TECHNICIAN APPRENTICE metoprolol tartrate 50 mg tablet active TAKE 1 TABLET BY MOUTH TWICE A DAY DIRECTED Jyothi Ventimiglia DENTAL TECHNICIAN APPRENTICE spironolactone 25 mg tablet active Take 1 tablet by mouth once a day Jyothi Ventimiglia DENTAL TECHNICIAN APPRENTICE metoprolol tartrate 50 mg tablet completed TAKE 1 TABLET BY MOUTH TWICE DAILY - Jyothi Pearlmiglpoly [facility] amlodipine 10 mg tablet completed TAKE 1 TABLET BY MOUTH EVERY DAY - [facility] Camarillomiglia [facility] metoprolol tartrate 50 mg tablet completed Take 1 tablet by mouth twice a day - [facility] Las[facility] 40 mg tablet completed Take 1 tablet by mouth every morning - Jyothiprashant Kangmiglpoly [facility] spironolactone 25 mg tablet completed - Jyothiprashant Kangmiglpoly [facility] amlodipine 10 mg tablet completed Take 1 tablet by mouth once a day - Jyothiprashant Kangmiglpoly [facility] zonisamide 25 mg capsule completed - Jyothiprashant Obregonia [facility] Nurtec ODT 75 mg tablet,disintegra ting active Carmen Gallegos Vitamin C 500 mg tablet completed - Jyothiprashant SZYMANSKIP losartan 100 mg tablet completed - Jyothi SZYMANSKIP gabapentin 100 mg capsule active Carmen Gallegos Advair Diskus 100-50 mcg/dose blister with device active Carmen Gallegos SOCIAL HISTORY Date Observation Value Provider personal history of marijuana use no Jyothi Ventimiglia DENTAL TECHNICIAN APPRENTICE drug use no Jyothi Ventimig capri [facility] alcohol use no Jyothi Ventimig capri [facility] passive cigarette sm jorge exposure no Jyothi Ventimiglia [facility] chewing tobacco use Never Jyothi V entimiglia [facility] smoking status Never smoker Jyothi Ventim iglia [facility] smoking status Never smoker Petr Ya bharat social history reviewed E&M revi ewed - no changes required Jacky Amos MD passive cigarette sm jorge exposure no Melissakasie [place] chewing tobacco use Never Melissa Randal campa smoking status Never smoker Monica Evon social history reviewed E&M revi ewed - no changes required Jacky Amos MD number of grandchildren Jacky Amos [...] Payer name Policy type / Coverage type [place] red green party ID [employer] [id number] ADVANCE DIRECTIVES Name Date DISCUSSED - NO DECISION MADE TREATMENT PLAN Date Name Performer [id number],B, leg swelling improved Petr Neville [id number],B,B P is better controlled BP today: 142/86 [...] Losartan 100 Mg Tablet (Losartan) Petr Yari [id number],S,S he has sleep apnea and I recommend CPAP machine Petr Yari [id number],S, W eight loss advised Araceli Wood [id number],C, CT was performed and there was incidental finding of hepatic cyst. The pt is aware of it and she is under routine follow up for this finding, thus will refer her to the physician for that. Araceli Wood [id number],C, B P today: 108/93 P rior BP: [...] Losartan 100 Mg Tablet (Losartan) Araceli Wood [id number],C,T he pt underwent successful stent of the [...] cannot proceed at this time. Araceli Nina [id number],C,. She was told be her gas main and line fitter that she has renal artery stenosis. We did not see it on our duplex, she will provide the study for my review Araceli Nina [id number],S, Jacky Amos MD [id number],S, Jacky Amos MD [id number],C, She has venous insufficiency bilaterally and complains of leg heaviness, swelling, and throbbing. Plan for venography with IVUS on May 04 Jacky Amos MD [id number],C,D oing well on current med rx, continue [...] 100 Mg Tablet (Losartan) Jacky Amos MD [id number],S, W eight loss advised Araceli Wood [id number],C,E cho showed normal EF. Renal artery duplex [...] Losartan 100 Mg Tablet (Losartan) Aracelicherelle Branketty [id number],C, Will repeat home sleep study, was not completed. Araceli Nina [id number],C, She does have proteinuria, following with nephrology. Araceli Nina [id number],C, She has venous insufficiency bilaterally and complains of leg heaviness, swelling, and throbbing, and will schedule venography with IVUS. Araceli Wood [id number],C,W eight loss advised Araceli Wood [id number],C,Will obtain v enous duplex Araceli Nina [id number],C,Will obtain h ome sleep study Araceli Nina [id number],C,T his is a morbidly obese patient with [...] Losartan 100 Mg Tablet (Losartan) Araceli Nina [id number],C,T his is a morbidly obese patient with [...] Wood Cardiology:. She was told be her gas main and line fitter that she has renal artery stenosis. We [...]
--- OUTSIDE RECORDS SUMMARY | 2024-04-14 20:10 | XMS_ITS | Encounter Summary ---
Author Organization [facility] Address [address] [facility] [place] [address] Care Team Providers Care Associate Designer Name Role Phone Jonelle Elam MD Primary Care Provider Manju Rainey DO Unavailable [phone] Skylar Canales PA-C Unavailable [phone] Encounter Details Date Type Department Care Team [...] on filedocumented in this encounter Care Teams Associate Designer Relationship Specialty Start Date End Date Jonelle Elam MD [address] [place] [address] PCP - General Family Medicine 10/24/18 Manju Rainey DO [address] [place] [address] Bariatrics 08/11/20 Skylar Canales PA-C [address] [facility] [place] [address] Physician Proof Operator Nephrology 03/04/22 documented as of this encounter
--- OUTSIDE RECORDS SUMMARY | 2024-04-14 20:10 | XMS_ITS | Encounter Summary ---
Author Organization [facility] Address [address] [facility] [place] [address] Care Team Providers Care Energy Analyst Name Role Phone Jonelle Elam MD Primary Care Provider [phone] Manju Rainey DO Unavailable [phone] Encounter Details Date Type Department Care Team (Late st Contact Info) Description 01/03/2022 Orders Only [facility] [address] [facility], [place] [address] Jeff Bird, CATHETER BUILDER-SMALL PRODUCTS I ASSEMBLER [address] [place] [address] Social History Tobacco Use Types Packs/Day Years [...] on filedocumented in this encounter Care Teams Energy Analyst Relationship Specialty Start Date End Date Jonelle Elam MD [address] [place] [address] [place] [address] PCP - General Family Medicine 10/24/18 Manju Rainey DO [address] [place] [address] Bariatrics 08/11/20 documented as of this encounter
--- OUTSIDE RECORDS SUMMARY | 2024-04-14 20:10 | XMS_ITS | Encounter Summary ---
Author Organization [facility] Address [address] [place] [address] Care Team Providers Care Automobile Mechanic Assistant Name Role Phone Jonelle Elam MD Primary Care Provider Manju Rainey DO Unavailable [phone] Skylar Canales PA-C Unavailable [phone] Encounter Details Date Type Department Care Team (Late st Contact Info) Description 04/27/2022 1:30 PM KILN STACKER Video Visit [facility] Neurology [facility] [facility], [place] [address] Jeff Bird APRN-JOSETTE [address] [place] [address] [place] [address] Intractable migraine with aura with status migrainosus [...] Coronavirus/COVID-19? No / Unsure 04/22/2022 9:05 AM KILN STACKER documented as of this encounter Patient Instructions * Patient Instructions* Jeff Bird APRN-CNP - 04/27/2022 1:55 PM KILN STACKER Migraines Please continue the current medications the same Fu in 6 months STACKER documented in this encounter Progress Notes * Jeff Bird APRN-CNP - 04/27/2022 1:22 PM CST Telehealth Visit/ Audio and Video visit/ Patient Location [facility] You as patient/surrogate have agreed to perform [...] and copies of medical records apply to [facility]. Neurology - Headache Clinic Note Date of Encounter: 04/27/2022 Deya Campbell Age: [age] year old Date of : 1995 Referring Physician: Jonelle Elam MD [address] [place] [address] [place] [address] Reason for Office Visit: Pain head/ Accompanied [...] Sleep speciality for MOOSE To see Weight fire management officer for Obesity 12/28/21 On rimegepant (NURTEC) 75 MG tablet PRN Gabapentin 100 mg (1) TID Seen ENT for sinus problem Seeing Sleep speciality for MOOSE Scheduled to see Weight fire management officer for Obesity Number of migraines per week: [...] for MOOSE sooner through Cardiology Seen Weight fire management officer for Obesity- On Metformin; great results; lost [...] Occupational History ??? 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 Smoking status: [...] in house Pets none Hobby reading-usually on [employer] jaqui Social Determinants of Health Financial Resource [...] of CPAP for MOOSE To follow Weight fire management officer recommendations for Obesity To continue Zonismaide 25 [...] Electronically [facility] Department of Neurology 04/27/22 STACKER documented in this encounter Plan of Treatment [...] (pediatric) documented in this encounter Care Teams Automobile Mechanic Assistant Relationship Specialty Start Date End Date Jonelle Elam MD [address] [place] [address] PCP - General Family Medicine 10/24/18 Manju Rainey DO [address] [place] [address] Bariatrics 08/11/20 Skylar Canales PA-C [address] [facility] [address] [place] [address] Physician Scrap Preparer Nephrology 03/04/22 documented as of this encounter
--- OUTSIDE RECORDS SUMMARY | 2024-04-14 20:10 | XMS_ITS | Encounter Summary ---
Author Organization [facility] Address [address] [place] [address] Care Team Providers Care Erco Machine Operator Name Role Phone Jonelle Elam MD Primary Care Provider [phone] Manju Rainey DO Unavailable Skylar Canales-Desirae Unavailable [phone] Encounter Details Date Type Department Care Team (Late st Contact Info) Description 04/27/2022 Orders Only [facility] [address] [facility], [place] [address] Linda Gurrola, METAL CASKET ASSEMBLER-MARINE MECHANIC [address] [place] [address] [address] [place] [address] NAFLD (nonalcoholic fatty liver disease) ; Hepatic [...] Coronavirus/COVID-19? No / Unsure 04/22/2022 9:05 AM CABLE REELER documented as of this encounter Plan of [...] passages documented in this encounter Care Teams Erco Machine Operator Relationship Specialty Start Date End Date Jonelle Elam MD [address] [place] [address] PCP - General Family Medicine 10/24/18 Manju Rainey DO [address] [place] [address] Bariatrics 08/11/20 Skylar Canales PA-C [address] [place] [address] Physician Solutions Executive Security Nephrology 03/04/22 documented as of this encounter
--- OUTSIDE RECORDS SUMMARY | 2024-04-14 20:10 | XMS_ITS | Encounter Summary ---
Author Organization [facility] Address [address] [place] [address] Care Team Providers Care Electroneurodiagnostic Technician Name Role Phone Jonelle Elam MD Primary Care Provider [phone] Manju Rainey DO Unavailable [phone] Skylar Canales PA-C Unavailable Encounter Details Date Type Department Care Team (Late st Contact Info) Description 03/15/2022 Orders Only [facility] - Nephrology [address] [place] [address], [place] [address] Skylar Canales PA-C [address] [place] [address] [address] [place] [address] Essential hypertension Social History Tobacco Use Types [...] Primary documented in this encounter Care Teams Electroneurodiagnostic Technician Relationship Specialty Start Date End Date Jonelle Elam MD [address] [place] [address] PCP - General Family Medicine 10/24/18 Manju Rainey DO [address] [place] [address] Bariatrics 08/11/20 Skylar Canales PA-C [address] [facility] 3[facility] [place] [address] Physician Mold Machine Operator Nephrology 03/04/22 documented as of this encounter
--- OUTSIDE RECORDS SUMMARY | 2024-04-14 20:10 | XMS_ITS | Encounter Summary ---
Author Organization [facility] Address [address] [facility] [place] [address] Care Team Providers Care Cloth Printing Back Tender Name Role Phone Jonelle Elam MD Primary Care Provider [phone] Manju Rainey DO Unavailable [phone] Skylar Canales PA-C Unavailable [phone] Encounter Details Date Type Department Care Team [...] on filedocumented in this encounter Care Teams Cloth Printing Back Tender Relationship Specialty Start Date End Date Jonelle Elam MD [address] [place] [address] PCP - General Family Medicine 10/24/18 Manju Rainey DO [address] [place] [address] Bariatrics 08/11/20 Skylar Canales PA-C [address] [facility] [place] [address] Physician Wink Cutter Operator Nephrology 03/04/22 documented as of this encounter
--- OUTSIDE RECORDS SUMMARY | 2024-04-14 20:10 | XMS_ITS | Encounter Summary ---
Author Organization [facility] Address [address] [place] [address] Care Team Providers Care Hospital Chaplain Name Role Phone Jonelle Elam MD Primary Care Provider [phone] Manju Rainey DO Unavailable [phone] Reason for Referral * Medication Prior Authorization - Closed Specialty Diagnoses / Procedures Referred By Ritika bonner Referred To Contact Reena Pollock APNP-CNP [address] DIV OF PULMONARY/[place] [address] Referral ID Status Reason Start Date Expiration Date Visits Re quested Visits Authorized [id number] Closed 1 1 Encounter Details Date Type Department Care Team (Late st Contact Info) Description 01/21/2022 Orders Only [facility] Sleep Disorder [place] [address] [place] [address] Reena Pollock APNP-CNP [address] DIV OF PULMONARY/[place] [address] Social History Tobacco Use Types Packs/Day Years [...] on filedocumented in this encounter Care Teams Hospital Chaplain Relationship Specialty Start Date End Date Jonelle Elam MD [address] [place] [address] PCP - General Family Medicine 10/24/18 Manju Rainey DO [address] [place] [address] Bariatrics 08/11/20 documented as of this encounter
--- OUTSIDE RECORDS SUMMARY | 2024-04-14 20:10 | XMS_ITS | Encounter Summary ---
Author Organization [facility] Address [address] [place] [address] Care Team Providers Care Manager Global Name Role Phone Jonelle Elam MD Primary Care Provider Manju Rainey DO Unavailable [phone] Skylar Canales PA-C Unavailable [phone] Encounter Details Date Type Department Care Team [...] on filedocumented in this encounter Care Teams Manager Global Relationship Specialty Start Date End Date Jonelle Elam MD [address] [place] [address] PCP - General Family Medicine 10/24/18 Manju Rainey DO [address] [place] [address] Bariatrics 08/11/20 Skylar Canales PA-C [address] [facility] [place] [address] Physician Waste Water Or Water Plant Operator Nephrology 03/04/22 documented as of this encounter
--- OUTSIDE RECORDS SUMMARY | 2024-04-14 20:10 | XMS_ITS | Encounter Summary ---
Author Organization [facility] Address [address] [place] [address] Care Team Providers Care Director Compliance Name Role Phone Jonelle Elam MD Primary Care Provider [phone] Manju Rainey DO Unavailable [phone] Skylar Canales PA-C Unavailable [phone] Encounter Details Date Type Department Care Team (Latest Contact Info) Description 03/04/2022 10:29 AM DIRECTOR OF ONLINE MERCHANDISING - 03/04/2022 11:59 PM [facility] Hospital Encounter [facility] OP DRAW STATION [address] [place] [phone] Discharge Disposition: Home or Self Care Social [...] REFLEX TO CULTURE Routine 03/04/2022 10:41 AM DIRECTOR OF ONLINE MERCHANDISING Secondary hypertension PTH INTACT W/O CALCIUM Routine 03/04/2022 10:41 AM DIRECTOR OF ONLINE MERCHANDISING Secondary hypertension URINALYSIS REFLEX MICROSCOPIC REFLEX CULTURE Routine 03/04/2022 10:41 AM DIRECTOR OF ONLINE MERCHANDISING Secondary hypertension TSH REFLEX FREE T4 Routine 03/04/2022 10 :41 AM DIRECTOR OF ONLINE MERCHANDISING Secondary hypertension URIC ACID BLOOD Routine 03/04/2022 10:41 AM DIRECTOR OF ONLINE MERCHANDISING Secondary hypertension MICROALB/CREAT RATIO URINE RANDOM PANEL Routine 03/04/2022 10:41 AM DIRECTOR OF ONLINE MERCHANDISING Secondary hypertension RENIN ACTIVITY Routine 03/04/2022 10:41 AM DIRECTOR OF ONLINE MERCHANDISING Secondary hypertension HEMOGLOBIN A1C Routine 03/04/2022 10:41 AM DIRECTOR OF ONLINE MERCHANDISING Secondary hypertension VITAMIN D 25-HYDROXY Routine 03/04/2022 10:41 AM DIRECTOR OF ONLINE MERCHANDISING Secondary hypertension ALDOSTERONE BLOOD Routine 03/04/2022 10: 41 AM DIRECTOR OF ONLINE MERCHANDISING Secondary hypertension CBC W AUTO DIFFERENTIAL Routine 03/04/2022 10:41 AM DIRECTOR OF ONLINE MERCHANDISING Secondary hypertension RENAL FUNCTION PANEL Routine 03/04/2022 10:41 AM DIRECTOR OF ONLINE MERCHANDISING Secondary hypertension PROTEIN CREATININE RATIO URINE RANDOM PNL Routine 03/04/2022 10:41 AM DIRECTOR OF ONLINE MERCHANDISING Secondary hypertension MAGNESIUM BLOOD Routine 03/04/2022 10:41 AM DIRECTOR OF ONLINE MERCHANDISING Secondary hypertension documented in this encounter Results * URINE MICROSCOPIC ONLY REFLEX TO CULTURE (03/04/2022 10:41 AM DIRECTOR OF ONLINE MERCHANDISING) Reflex Status Culture not indicated 03/04/2022 12:04 PM [facility] RBC UA 0-2 None Seen, 0-2, 3-5 /HPF 03/04/2022 12:04 PM [facility] WBC UA 0-5 None Seen, 0-5 /HPF 03/04/2022 12:04 PM [facility] Squamous Epithelial Cells UA 0-2 None Seen, 0-2, 3-5 /HPF 03/04/2022 12:04 PM [facility] Mucus UA 1+ /LPF 03/04/2022 12:04 PM [facility] Urine URINE SPECIMEN OBTAINED BY CLEAN CATCH PROCEDURE / Unknown Collection / Unknown 03/04/2022 10:41 AM DIRECTOR OF ONLINE MERCHANDISING 03/04/2022 11:17 AM [facility] - 03/04/2022 12:04 PM DIRECTOR OF ONLINE MERCHANDISING Skylar Canales PA-C LAB - URINALYSIS O RDERABLES [facility] [address] [place] [address], [facility] [phone] * (ABNORMAL) RENAL FUNCTION PANEL (03/04/2022 10:41 AM DIRECTOR OF ONLINE MERCHANDISING) BUN 9 7 - 26 mg/dL 03/04/2022 11:54 AM [facility] Creatinine 0.55(L) 0.56 - 0.96 mg/dL 03/04/2022 11:54 AM [facility] Sodium 138 136 - 145 mmol/L 03/04/2022 11:54 AM [facility] Potassium 3.8 3.5 - 4.5 mmol/L 03/04/2022 11:54 AM [facility] Chloride 102 98 - 107 mmol/L 03/04/2022 11:54 AM [facility] CO2 25 22 - 29 mmol/L 03/04/2022 11:54 AM [facility] Glucose 97 70 - 115 mg/dL 03/04/2022 11:54 AM [facility] Albumin 4.2 3.4 - 5.0 g/dL 03/04/2022 11:54 AM [facility] Calcium 9.9 8.4 - 10.2 mg/dL 03/04/2022 11:54 AM [facility] Phosphorus 3.7 2.9 - 5.1 mg/dL 03/04/2022 11:54 AM [facility] Anion Gap 15 8 - 18 03/04/2022 11:54 AM [facility] BUN/Creatinine Ratio 16 7 - 23 03/04/2022 11:54 AM [facility] Osmolality Calculated 285 270 - 300 mOsm/kg 03/04/2022 11:54 AM [facility] eGFR by CKD-EPI >90 >=90 mL/min/1.7 3 m2 03/04/2022 11:54 AM [facility] Blood BLOOD SPECIMEN / Unknown Lab Venipuncture / Unknown 03/04/2022 10:41 AM DIRECTOR OF ONLINE MERCHANDISING 03/04/2022 11:23 AM DIRECTOR OF ONLINE MERCHANDISING Skylar Canales PA-C LAB - CHEMISTRY OR DERABLES [address] [address], [facility] [phone] * (ABNORMAL) URIC ACID BLOOD (03/04/2022 10:41 AM DIRECTOR OF ONLINE MERCHANDISING) Uric Acid 6.6(H) 2.6 - 6.0 mg/dL 03/04/2022 11:54 AM [facility] Blood BLOOD SPECIMEN / Unknown Lab Venipuncture / Unknown 03/04/2022 10:41 AM DIRECTOR OF ONLINE MERCHANDISING 03/04/2022 11:23 AM DIRECTOR OF ONLINE MERCHANDISING Skylar Canales PA-C LAB - CHEMISTRY OR DERABLES [address] [address], [place] [phone] * MAGNESIUM BLOOD (03/04/2022 10:41 AM DIRECTOR OF ONLINE MERCHANDISING) Pathologist [facility] Magnesium 2.0 1.6 - 2.6 mg/dL 03/04/2022 11:54 AM [facility] Blood BLOOD SPECIMEN / Unknown Lab Venipuncture / Unknown 03/04/2022 10:41 AM DIRECTOR OF ONLINE MERCHANDISING 03/04/2022 11:23 AM DIRECTOR OF ONLINE MERCHANDISING Skylar Canales PA-C LAB - CHEMISTRY OR DERABLES [facility] [address] [place] [address], [facility] [phone] * (ABNORMAL) CBC WITH DIFFERENTIAL (03/04/2022 10:41 AM DIRECTOR OF ONLINE MERCHANDISING) Pathologist [facility] WBC 6.9 3.5 - 10.5 10? 3 /uL 03/04/2022 11:26 AM [facility] RBC 4.93 3.80 - 5.20 10? 6 /uL 03/04/2022 11:26 AM [facility] Hemoglobin 13.1 12.0 - 15.6 g/dL 03/04/2022 11:26 AM [facility] Hematocrit 40.0 35.0 - 45.0 % 03/04/2022 11:26 AM [facility] MCV 81.1 80.7 - 98.3 fL 03/04/2022 11:26 AM [facility] MCH 26.6(L) 26.7 - 34.0 pg 03/04/2022 11:26 AM [facility] MCHC 32.8 30.8 - 35.9 g/dL 03/04/2022 11:26 AM [facility] RDW-SD 38.6 36.0 - 50.0 fL 03/04/2022 11:26 AM [facility] RDW-CV 13.3 11.2 - 14.8 % 03/04/2022 11:26 AM [facility] Platelet Count 341 150 - 400 10? 3 /uL 03/04/2022 11:26 AM [facility] MPV 9.3(L) 9.4 - 12.9 fL 03/04/2022 11:26 AM [facility] nRBC Absolute 0.00 0 10? 3 /uL 03/04/2022 11:26 AM [facility] nRBC Auto 0.0 0 /100 WBC 03/04/2022 11:26 AM [facility] Neutrophils % 63.6 35.0 - 70.0 % 03/04/2022 11:26 AM [facility] Lymphocytes % 27.6 20.0 - 43.0 % 03/04/2022 11:26 AM [facility] Monocytes % 5.4 5.0 - 13.0 % 03/04/2022 11:26 AM [facility] Eosinophils % 1.9 0.0 - 6.0 % 03/04/2022 11:26 AM [facility] Basophil % 0.9 0.0 - 2.0 % 03/04/2022 11:26 AM [facility] Neutrophils Absolute 4.38 1.60 - 7.00 10? 3 /uL 03/04/2022 11:26 AM [facility] Lymphocyte Absolute 1.90 1.10 - 3.90 10? 3 /uL 03/04/2022 11:26 AM [facility] Monocytes Absolute 0.37 0.26 - 1.07 10? 3 /uL 03/04/2022 11:26 AM [facility] Eosinophils Absolute 0.13 0.00 - 0.47 10? 3 /uL 03/04/2022 11:26 AM [facility] Basophils Absolute 0.06 0.00 - 0.08 10? 3 /uL 03/04/2022 11:26 AM [facility] Immature Granulocytes % 0.6 0.0 - 1.0 % 03/04/2022 11:26 AM [facility] Immature Granulocytes Absolute 0.04 03/04/2022 11:26 AM [facility] Blood BLOOD SPECIMEN / Unknown Lab Venipuncture / Unknown 03/04/2022 10:41 AM DIRECTOR OF ONLINE MERCHANDISING 03/04/2022 11:23 AM [facility] Skylar Canales PA-C LAB - HEMATOLOGY O RDERABLES Performing Organization Address City/State/[facility] Co de Phone Number [facility] [address] [place] [address] [phone] * RENIN ACTIVITY (03/04/2022 10:41 AM DIRECTOR OF ONLINE MERCHANDISING) [facility] Renin 4.3 ng/mL/hr 03/08/2022 9:29 AM DIRECTOR OF ONLINE MERCHANDISING [employer] ([facility]) Comment: INTERPRETIVE INFORMATION: Renin Activity Adult, [...] developed and its performance characteristics determined by [employer]. It has not been cleared or approved by the US Food and Drug Administration. This test was performed in a CLIA certified laboratory and is intended for clinical purposes. Performed By: [facility] [employer] [address] [place] [address] Dye Colorist Formulator: Paul Werner MD, PhD Blood BLOOD SPECIMEN / Unknown Lab Venipuncture / Unknown 03/04/2022 10:41 AM DIRECTOR OF ONLINE MERCHANDISING 03/04/2022 11:17 AM DIRECTOR OF ONLINE MERCHANDISING Skylar Canales PA-C LAB - CHEMISTRY OR DERABLES [facility] [employer] ([facility]) [address] [place] [address], [facility] * ALDOSTERONE BLOOD (03/04/2022 10:41 AM DIRECTOR OF ONLINE MERCHANDISING) Aldosterone 10.4 ng/dL 03/06/2022 9:37 PM DIRECTOR OF ONLINE MERCHANDISING [facility] ([facility]) Comment: INTERPRETIVE INFORMATION: Aldosterone, Serum Reference [...] reference intervals for this test in the [facility] Directory ([employer] Performed By: [facility] [address] [place] [address] Dye Colorist Formulator: Paul Werner MD, PhD Blood BLOOD SPECIMEN / Unknown Lab Venipuncture / Unknown 03/04/2022 10:41 AM DIRECTOR OF ONLINE MERCHANDISING 03/04/2022 11:17 AM DIRECTOR OF ONLINE MERCHANDISING Skylar Canales PA-C LAB - CHEMISTRY OR DERABLES [facility] ([facility]) [place] [address], [facility] * (ABNORMAL) HEMOGLOBIN A1C [IN-HOUSE TEST] (03/04/2022 10:41 AM DIRECTOR OF ONLINE MERCHANDISING) Hemoglobin A1c 5.9(H) <=5.6 % 03/05/2022 10:53 AM [facility] Estimated Average Glucose 123 mg/dL 03/05/2022 10:53 AM [facility] Comment: HbA1c Interpretation: Normal : < 5.7% Pre-diabetes: 5.7-6.4% Diabetes: Equal to or greater than 6.5% Test results diagnostic of diabetes should be repeated for confirmation. Treatment target values recommended by ADA and other clinical organizations should be used to evaluate metabolic control in patients. Reference: [place] [employer] Association, Standards of Care in Diabetes [...] to evaluate metabolic control in patients. Reference: [place] [employer] Association, Standards of Care in Diabetes -2020 In patients 70 years and older consider HbA1c target range of 7.0-7.5% (Reference: Diaz A, et al. JAMDA. 2012) The Sebia assay for the measurement of HbA1c is a National Glycohemoglobin Standardization Program (NGSP) certified method. Blood BLOOD SPECIMEN WITH EDTA / Unknown Lab Venipuncture / Unknown 03/04/2022 10:41 AM DIRECTOR OF ONLINE MERCHANDISING 03/04/2022 11:23 AM DIRECTOR OF ONLINE MERCHANDISING Skylar Canales PA-C LAB - CHEMISTRY OR DERABLES Performing Organization Address [facility]/ZIP Co de Phone Number [facility] [address] [place] [address], [facility] [phone] * PTH INTACT ([facility]) (03/04/2022 10:41 AM DIRECTOR OF ONLINE MERCHANDISING) Pathologist [facility] PTH Intact 70.5 8.0 - 77.0 pg/mL 03/04/2022 11:55 AM DIRECTOR OF ONLINE MERCHANDISING [facility] Blood BLOOD SPECIMEN / Unknown Lab Venipuncture / Unknown 03/04/2022 10:41 AM DIRECTOR OF ONLINE MERCHANDISING 03/04/2022 11:23 AM DIRECTOR OF ONLINE MERCHANDISING Skylar Canales PA-C LAB - CHEMISTRY OR DERABLES Performing Organization Address [facility] Co de Phone Number [facility] [address] [place] [address], [facility] [phone] * (ABNORMAL) VITAMIN D 25-HYDROXY (03/04/2022 10:41 AM DIRECTOR OF ONLINE MERCHANDISING) Pathologist [facility] Vitamin D, 25 Hydroxy 15.0(L) 30.0 - 80.0 ng/mL 03/04/2022 12:12 PM DIRECTOR OF ONLINE MERCHANDISING [facility] Comment: The recommendations for 25-Hydroxy Vitamin [...] Lab Venipuncture / Unknown 03/04/2022 10:41 AM DIRECTOR OF ONLINE MERCHANDISING 03/04/2022 11:23 AM DIRECTOR OF ONLINE MERCHANDISING Skylar Canales PA-C LAB - CHEMISTRY OR DERABLES Performing Organization Address [facility]/ZIP Co de Phone Number [address] [address], [facility] [phone] * TSH REFLEX FREE T4 (03/04/2022 10:41 AM DIRECTOR OF ONLINE MERCHANDISING) TSH 0.926 0.350 - 4.940 uIU/mL 03/04/2022 12:12 PM [facility] Blood BLOOD SPECIMEN / Unknown Lab Venipuncture / Unknown 03/04/2022 10:41 AM DIRECTOR OF ONLINE MERCHANDISING 03/04/2022 11:23 AM DIRECTOR OF ONLINE MERCHANDISING Skylar Canales PA-C LAB - CHEMISTRY OR DERABLES Performing Organization Address [facility]/ZIP Co de Phone Number [address] [address], [facility] [phone] * (ABNORMAL) URINALYSIS REFLEX MICROSCOPIC REFLEX CULTURE (03/04/2022 10:41 AM DIRECTOR OF ONLINE MERCHANDISING) Color UA Yellow Straw, Yellow 03/04/2022 12:04 PM [facility] Clarity UA Clear Clear 03/04/2022 12:04 PM [facility] Specific [place] UA 1.025 1.005 - 1.030 03/04/2022 12:04 PM [facility] pH UA 5.5 5.0 - 8.0 pH 03/04/2022 12:04 PM [facility] Protein UA Negative Negative 03/04/2022 12:04 PM [facility] Glucose UA Negative Negative 03/04/2022 12:04 PM [facility] Ketone UA Negative Negative 03/04/2022 12:04 PM [facility] Bilirubin UA Negative Negative 03/04/2022 12:04 PM [facility] Blood UA Trace(A) Negative 03/04/2022 12:04 PM [facility] Nitrite UA Negative Negative 03/04/2022 12:04 PM [facility] Leukocyte Esterase Negative Negative 03/04/2022 12:04 PM [facility] Urobilinogen UA Negative Negative mg/dL 03/04/2022 12:04 PM [facility] Urine URINE SPECIMEN OBTAINED BY CLEAN CATCH PROCEDURE / Unknown Collection / Unknown 03/04/2022 10:41 AM DIRECTOR OF ONLINE MERCHANDISING 03/04/2022 11:17 AM DIRECTOR OF ONLINE MERCHANDISING Skylar Canales PA-C LAB - URINALYSIS O RDERABLES Performing Organization Address [facility]/ZIP Co de Phone Number [address] [address], [facility] [phone] * (ABNORMAL) PROTEIN CREATININE RATIO URINE RANDOM PNL (03/04/2022 10:41 AM DIRECTOR OF ONLINE MERCHANDISING) Protein Urine 18 Not Established mg/dL 03/04/2022 11:35 AM [facility] Creatinine Urine 94 Not Established mg/dL 03/04/2022 11:35 AM [facility] Protein/Creati nine Ratio Urine 0.19(H) <0.10 03/04/2022 11:35 AM [facility] Urine URINE SPECIMEN OBTAINED BY CLEAN CATCH PROCEDURE / Unknown Collection / Unknown 03/04/2022 10:41 AM DIRECTOR OF ONLINE MERCHANDISING 03/04/2022 11:17 AM DIRECTOR OF ONLINE MERCHANDISING Skylar Canales PA-C LAB - URINE CHEMIS TRY ORDERABLES [address] [address], [place] [phone] * (ABNORMAL) MICROALB/CREAT RATIO URINE RANDOM PANEL (03/04/2022 10:41 AM DIRECTOR OF ONLINE MERCHANDISING) Albumin Random Urine 104.6 Not Established ug/mL 03/04/2022 11:35 AM [facility] Creatinine Urine 94 Not Established mg/dL 03/04/2022 11:35 AM [facility] Urine Albumin/Creati nine Ratio 111(H) <30 mg/g 03/04/2022 11:35 AM [facility] Urine URINE SPECIMEN OBTAINED BY CLEAN CATCH PROCEDURE / Unknown Collection / Unknown 03/04/2022 10:41 AM DIRECTOR OF ONLINE MERCHANDISING 03/04/2022 11:17 AM DIRECTOR OF ONLINE MERCHANDISING Skylar Canales PA-C LAB - URINE CHEMIS TRY ORDERABLES [facility] [address] [place] [address], [facility] [phone] documented in this encounter Visit Diagnoses Diagnosis Secondary hypertension- Primary documented in this encounter Care Teams Director Compliance Relationship Specialty Start Date End Date Jonelle Elam MD [address] [place] [address] PCP - General Family Medicine 10/24/18 Manju Rainey DO [address] [place] [address] Bariatrics 08/11/20 Skylar Canales PA-C [address] [place] [address] [address] [place] [address] Physician Pull Over Machine Operator Nephrology 03/04/22 documented as of this encounter
--- OUTSIDE RECORDS SUMMARY | 2024-04-14 20:10 | XMS_ITS | Encounter Summary ---
Author Organization [facility] Address [address] [facility] [place] [address] Care Team Providers Care Reinforcing Iron Worker Helper Name Role Phone Jonelle Elam MD Primary Care Provider [phone] Manju Rainey DO Unavailable [phone] Skylar Canales PA-C Unavailable Encounter Details [...] Coronavirus/COVID-19? No / Unsure 04/22/2022 9:05 AM MOLECULAR BIOLOGY SCIENTIST documented as of this encounter Plan of [...] on filedocumented in this encounter Care Teams Reinforcing Iron Worker Helper Relationship Specialty Start Date End Date Jonelle Elam MD [address] [place] [address] PCP - General Family Medicine 10/24/18 Manju Rainey DO [address] [place] [address] Bariatrics 08/11/20 Skylar Canales PA-C [address] [facility] [address] [place] [address] Physician Sort Line Worker Nephrology 03/04/22 documented as of this encounter
--- OUTSIDE RECORDS SUMMARY | 2024-04-14 20:10 | XMS_ITS | Encounter Summary ---
Author Organization [facility] Address [address] [facility] [place] [address] Care Team Providers Care Logistics Loss Prevention Manager Name Role Phone Jonelle Elam MD Primary Care Provider [phone] Manju Rainey DO Unavailable [phone] Skylar Canales PA-C Unavailable [phone] Encounter Details Date Type Department Care Team [...] Coronavirus/COVID-19? No / Unsure 04/22/2022 9:05 AM GLAZE MAKER documented as of this encounter Plan of [...] on filedocumented in this encounter Care Teams Logistics Loss Prevention Manager Relationship Specialty Start Date End Date Jonelle Elam MD [address] [place] [address] PCP - General Family Medicine 10/24/18 Manju Rainey DO [address] [place] [address] Bariatrics 08/11/20 Skylar Canales PA-C [address] [facility] 3[facility] [place] [address] Physician Yard Jockey Nephrology 03/04/22 documented as of this encounter
--- OUTSIDE RECORDS SUMMARY | 2024-04-14 20:10 | XMS_ITS | Encounter Summary ---
Author Organization [facility] Address [address] [place] [address] Care Team Providers Care Truss Puller Helper Name Role Phone Jonelle Elam MD Primary Care Provider [phone] Manju Rainey DO Unavailable [phone] Reason for Referral * Radiology Services (Routine) - Closed Specialty Diagnoses / Procedures Referred By Ritika bonner Referred To Contact MRI Diagnoses NAFLD (nonalcoholic fatty liver disease) Liver lesion Procedures MRI ABDOMEN WWO CONTRAST Linda Gurrola APRN-CNP [address] [place] [address] [facility] [address] [place] [address] Referral ID Status Reason Start Date Expiration Date Visits Re quested Visits Authorized [id number] Closed 04/18/2022 07/17/2022 1 1 Encounter Details Date Type Department Care Team (Late st Contact Info) Description 12/30/2021 3:30 PM CDT Office Visit [facility] - GI [address] [facility], [place] [address] Linda Gurrola APRN-CNP [address] [place] [address] NAFLD (nonalcoholic fatty liver disease) (Primary Dx); [...] saw Ms. Campbell in [facility] at [facility] today for follow up visit regarding: Past [...] ). 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 She admits to [...] Depressive disorder Essential hypertension BMI 60.0-69.9, adult ([facility]) Generalized anxiety disorder Excessive caffeine intake Migraines [...] per day. She is monitoring this through [employer] jaqui. She is also walking some with goal of 10k steps per day. She has a gym membership but hasn't been in a while. She is working a lot, working from home. She reports intermittent chest pain over the past 1-2 months. Her blood pressure has been elevated as well. No headache, shortness of breath, weakness, blurry vision. She has appointment with her news wire photo operator in January. Current Outpatient Medications Medication Sig [...] in house Pets none Hobby reading-usually on [employer] jaqui Review of systems: Chest pain: none. [...] go to the emergency room. She has news wire photo operator that is also aware of her symptoms with an upcoming appointment. 4. Specific recommendations were provided regarding diet and exercise including the avoidance of sugar sweetened beverages and dietary trans-fats. continued weight loss encouraged An appointment was scheduled for her to see me in followup in 4 months. Copy to: Jonelle Elam MD [address] [place] [address] [place] [address] [facility] Division of Gastroenterology and Hepatology Collaborating [...] MRI ABDOMEN WWO CONTRAST (04/25/2022 10:30 AM PATIENT ACCOUNTS COORDINATOR) Anatomical Region Laterality Modality Abdomen Magnetic Resonan ce 04/25/2022 12:2 7 PM PATIENT ACCOUNTS COORDINATOR Impressions 04/25/2022 12:42 PM PATIENT ACCOUNTS COORDINATOR IMPRESSION: 1. No substantial change in a [...] 04/25/2022 12:42 PM Narrative 04/25/2022 12:42 PM PATIENT ACCOUNTS COORDINATOR PROCEDURE: ??MRI ABDOMEN WWO CONTRAST, DATE/TIME OF EXAM: ??04/25/2022 10:30 AM, LOCATION ??[facility] INDICATION: K76.0: NAFLD (nonalcoholic fatty liver [...] CONTRAST, DATE/TIME OF EXAM: 310:30 AM, LOCATION [facility] INDICATION: K76.0: NAFLD (nonalcoholic fatty liver [...] on 04/25/2022 12:42 PM Linda Gill [employer] CASH REGISTER OPERATOR-ENGINEERING OFFICER MR ORDERABL ES documented in this encounter [...] liver documented in this encounter Care Teams Truss Puller Helper Relationship Specialty Start Date End Date Jonelle Elam MD [address] [place] [address] PCP - General Family Medicine 10/24/18 Manju Rainey DO [address] [place] [address] Bariatrics 08/11/20 documented as of this encounter
--- OUTSIDE RECORDS SUMMARY | 2024-04-14 20:10 | XMS_ITS | Encounter Summary ---
Author Organization [facility] Address [address] [place] [address] Care Team Providers Care Director International Name Role Phone Jonelle Elam MD Primary Care Provider Manju Rainey DO Unavailable [phone] Skylar Canales PA-C Unavailable [phone] Encounter Details Date Type Department Care Team (Latest Contact Info) Description 05/12/2022 4:15 PM DIGITAL PROJECT COORDINATOR - 05/12/2022 11:59 PM [facility] Hospital Encounter [facility] DRAW STATION [address] [place] [phone] Discharge Disposition: Home or Self Care Social [...] Coronavirus/COVID-19? No / Unsure 04/22/2022 9:05 AM DIGITAL PROJECT COORDINATOR documented as of this encounter Medications at [...] W AUTO DIFFERENTIAL Routine 05/12/2022 4:33 PM DIGITAL PROJECT COORDINATOR NAFLD (nonalcoholic fatty liver disease) COMPREHENSIVE METABOLIC PANEL Routine 05/12/2022 4:33 PM DIGITAL PROJECT COORDINATOR NAFLD (nonalcoholic fatty liver disease) documented in this encounter Results * (ABNORMAL) COMPREHENSIVE METABOLIC PANEL (05/12/2022 4:33 PM DIGITAL PROJECT COORDINATOR) BUN 9 7 - 26 mg/dL 05/12/2022 5:18 PM [facility] Creatinine 0.57 0.56 - 0.96 mg/dL 05/12/2022 5:18 PM [facility] Sodium 135(L) 136 - 145 mmol/L 05/12/2022 5:18 PM [facility] Potassium 3.8 3.5 - 4.5 mmol/L 05/12/2022 5:18 PM [facility] Chloride 104 98 - 107 mmol/L 05/12/2022 5:18 PM [facility] CO2 25 22 - 29 mmol/L 05/12/2022 5:18 PM [facility] Glucose 98 70 - 115 mg/dL 05/12/2022 5:18 PM [facility] Calcium 9.5 8.4 - 10.2 mg/dL 05/12/2022 5:18 PM [facility] Protein Total 7.3 6.0 - 8.3 g/dL 05/12/2022 5:18 PM [facility] Albumin 3.9 3.4 - 5.0 g/dL 05/12/2022 5:18 PM [facility] Bilirubin Total 0.7 0.2 - 1.2 mg/dL 05/12/2022 5:18 PM [facility] Alkaline Phosphatase 63 40 - 150 U/L 05/12/2022 5:18 PM [facility] ALT 27 5 - 55 U/L 05/12/2022 5:18 PM [facility] AST 20 5 - 34 U/L 05/12/2022 5:18 PM [facility] Anion Gap 10 8 - 18 05/12/2022 5:18 PM [facility] BUN/Creatinine Ratio 16 7 - 23 05/12/2022 5:18 PM [facility] Osmolality Calculated 279 270 - 300 mOsm/kg 05/12/2022 5:18 PM [facility] Albumin/Globulin Ratio 1.1 1.1 - 2.3 05/12/2022 5:18 PM [facility] eGFR by CKD-EPI >90 >=90 mL/min/1.7 3 m2 05/12/2022 5:18 PM [facility] Blood BLOOD SPECIMEN / Unknown Lab Venipuncture / Unknown 05/12/2022 4:33 PM DIGITAL PROJECT COORDINATOR 05/12/2022 4:48 PM [facility] Linda Gurrola BUTADIENE COMPRESSOR OPERATOR-PROMOTIONS REPRESENTATIVE LAB - CHEMI STRY ORDERABLES [facility] [address] [place] [address], [facility] [phone] * (ABNORMAL) CBC WITH DIFFERENTIAL (05/12/2022 4:33 PM [facility]) [facility] Signature WBC 9.0 3.5 - 10.5 10? 3 /uL 05/12/2022 4:56 PM [facility] RBC 4.24 3.80 - 5.20 10? 6 /uL 05/12/2022 4:56 PM [facility] Hemoglobin 11.6(L) 12.0 - 15.6 g/dL 05/12/2022 4:56 PM [facility] Hematocrit 34.4(L) 35.0 - 45.0 % 05/12/2022 4:56 PM [facility] MCV 81.1 80.7 - 98.3 fL 05/12/2022 4:56 PM [facility] MCH 27.4 26.7 - 34.0 pg 05/12/2022 4:56 PM [facility] MCHC 33.7 30.8 - 35.9 g/dL 05/12/2022 4:56 PM [facility] RDW-SD 38.5 36.0 - 50.0 fL 05/12/2022 4:56 PM [facility] RDW-CV 13.2 11.2 - 14.8 % 05/12/2022 4:56 PM [facility] Platelet Count 341 150 - 400 10? 3 /uL 05/12/2022 4:56 PM [facility] MPV 9.3(L) 9.4 - 12.9 fL 05/12/2022 4:56 PM [facility] nRBC Absolute 0.00 0 10? 3 /uL 05/12/2022 4:56 PM [facility] nRBC Auto 0.0 0 /100 WBC 05/12/2022 4:56 PM [facility] Neutrophils % 63.0 35.0 - 70.0 % 05/12/2022 4:56 PM [facility] Lymphocytes % 25.6 20.0 - 43.0 % 05/12/2022 4:56 PM [facility] Monocytes % 7.0 5.0 - 13.0 % 05/12/2022 4:56 PM [facility] Eosinophils % 3.1 0.0 - 6.0 % 05/12/2022 4:56 PM [facility] Basophil % 0.7 0.0 - 2.0 % 05/12/2022 4:56 PM [facility] Neutrophils Absolute 5.65 1.60 - 7.00 10? 3 /uL 05/12/2022 4:56 PM [facility] Lymphocyte Absolute 2.29 1.10 - 3.90 10? 3 /uL 05/12/2022 4:56 PM [facility] Monocytes Absolute 0.63 0.26 - 1.07 10? 3 /uL 05/12/2022 4:56 PM [facility] Eosinophils Absolute 0.28 0.00 - 0.47 10? 3 /uL 05/12/2022 4:56 PM [facility] Basophils Absolute 0.06 0.00 - 0.08 10? 3 /uL 05/12/2022 4:56 PM [facility] Immature Granulocytes % 0.6 0.0 - 1.0 % 05/12/2022 4:56 PM [facility] Immature Granulocytes Absolute 0.05 05/12/2022 4:56 PM [facility] Blood BLOOD SPECIMEN / Unknown Lab Venipuncture / Unknown 05/12/2022 4:33 PM DIGITAL PROJECT COORDINATOR 05/12/2022 4:48 PM DIGITAL PROJECT COORDINATOR Linda Gurrola BUTADIENE COMPRESSOR OPERATOR-PROMOTIONS REPRESENTATIVE LAB - HEMAT OLOGY ORDERABLES Performing Organization Address City/State/[facility] de Phone Number [facility] [address] [place] [address], [facility] [phone] documented in this encounter Visit Diagnoses Diagnosis NAFLD (nonalcoholic fatty liver disease) Other chronic nonalcoholic liver disease documented in this encounter Care Teams Director International Relationship Specialty Start Date End Date Jonelle Elam MD [address] [place] [address] [place] [phone] PCP - General Family Medicine 10/24/18 Manju Rainey DO [address] [place] [address] Bariatrics 08/11/20 Skylar Canales PA-C [address] [place] [address] Physician Still Runner Nephrology 03/04/22 documented as of this encounter
--- OUTSIDE RECORDS SUMMARY | 2024-04-14 20:10 | XMS_ITS | Encounter Summary ---
Author Organization [facility] Address [address] [place] [address] Care Team Providers Care Filter Screen Cleaner Name Role Phone Jonelle Elam MD Primary Care Provider [phone] Manju Rainey DO Unavailable [phone] Reason for Visit * Reason Onset Date Comments Medication Prior Auth Request 12/31/2021 Encounter Details Date Type Department Care Team (Late st Contact Info) Description 12/31/2021 Telephone [facility] [address] [facility], [place] [phone] Jeff Bird APRN-JOSETTE [address] [place] [address] [place] [phone] Medication Prior Auth Request Social History Tobacco [...] Patient is on Nurtec. Will forward to EQUIPMENT OPERATING ENGINEER Settu for her review. * Telephone Encounter [...] on filedocumented in this encounter Care Teams Filter Screen Cleaner Relationship Specialty Start Date End Date Jonelle Elam MD [address] [place] [address] [place] [address] PCP - General Family Medicine 10/24/18 Manju Rainey DO [address] [place] [address] Bariatrics 08/11/20 documented as of this encounter
--- OUTSIDE RECORDS SUMMARY | 2024-04-14 20:10 | XMS_ITS | Encounter Summary ---
Author Organization [facility] Address [address] [place] [address] Care Team Providers Care Floatman Name Role Phone Jonelle Elam MD Primary Care Provider Manju Rainey DO Unavailable Skylar Canales-Desirae Unavailable [phone] Reason for Referral * Consultation (Routine) - Open Specialty Diagnoses / Procedures Referred By Ritika t Referred To Contact Diagnoses Papilledema associated with retinal disorder Jeff Bird APRN-CNP [address] [place] [address] [place] [address] Referral ID Status Reason Start Date Expiration Date V isits Requested Visits Authorized [id number] Open Specialty Services Required 09/20/2023 09/19/2024 1 1 Scheduling Instructions Please fax to [phone] Encounter Details Date Type Department Care Team (Late st Contact Info) Description 09/20/2023 Orders Only [facility] - Neurology [address] [place] [address], [place] [address] Jeff Bird, ELECTRONIC TESTER-SALES OPERATIONS ASSISTANT [address] [place] [phone] Papilledema associated with retinal disorder Social History [...] Primary documented in this encounter Care Teams Floatman Relationship Specialty Start Date End Date Jonelle Elam MD [address] [place] [address] [place] [address] PCP - General Family Medicine 10/24/18 Manju Rainey DO [address] [place] [address] Bariatrics 08/11/20 Skylar Canales PA-C [address] [facility] [place] [address] Physician Clinical Staff Rn Nephrology 03/04/22 documented as of this encounter
--- OUTSIDE RECORDS SUMMARY | 2024-04-14 20:10 | XMS_ITS | Encounter Summary ---
Author Organization [facility] Address [address] [place] [address] Care Team Providers Care Systems Design Engineer Name Role Phone Jonelle Elam MD Primary Care Provider [phone] Manju Rainey DO Unavailable [phone] Skylar Canales PA-C Unavailable [phone] Reason for Referral * Radiology Services (Routine) - Closed Specialty Diagnoses / Procedures Referred By Contac t Referred To Contact MRI Diagnoses NAFLD (nonalcoholic fatty liver disease) Liver lesion Procedures MRI ABDOMEN WWO CONTRAST Linda Gurrola APRN-CNP [address] [place] [address] [facility] Mri [address] [place] [address] Referral ID Status Reason Start Date Expiration Date Visits Re quested Visits Authorized [id number] Closed 04/18/2022 07/17/2022 1 1 TRUCTION HELPER Reason for Visit * Radiology Services (Routine) - Closed Specialty Diagnoses / Procedures Referred By Contac t Referred To Contact MRI Diagnoses NAFLD (nonalcoholic fatty liver disease) Liver lesion Procedures MRI ABDOMEN WWO CONTRAST Linda Gurrola APRN-SOFA COVER INSPECTOR [address] [place] [address] [facility] Mri [address] [place] [address] Referral ID Status Reason Start Date Expiration Date Visits Re quested Visits Authorized [id number] Closed 04/18/2022 07/17/2022 1 1 Encounter Details Date Type Department Care Team (Late st Contact Info) Description 04/25/2022 9:19 AM CONSTRUCTION HELPER - 04/25/2022 11:59 PM CONSTRUCTION HELPER Hospital Encounter [facility] MRI [address] [place] [phone] Linda Gurrola APRN-SOFA COVER INSPECTOR [address] [facility] [place], [place] [id number] Discharge Disposition: Home or Self Care Social [...] Coronavirus/COVID-19? No / Unsure 04/22/2022 9:05 AM CONSTRUCTION HELPER documented as of this encounter Medications at [...] ABDOMEN WWO CONTRAST Routine 04/25/2022 10:30 AM CONSTRUCTION HELPER NAFLD (nonalcoholic fatty liver disease) Liver lesion CREATININE - POCT INTERFACED Routine 04/25/2022 9:46 AM CONSTRUCTION HELPER documented in this encounter Results * MRI ABDOMEN WWO CONTRAST (04/25/2022 10:30 AM CONSTRUCTION HELPER) Anatomical Region Laterality Modality Abdomen Magnetic Resonan ce 04/25/2022 12:2 7 PM CONSTRUCTION HELPER Impressions 04/25/2022 12:42 PM CONSTRUCTION HELPER IMPRESSION: 1. No substantial change in a [...] 04/25/2022 12:42 PM Narrative 04/25/2022 12:42 PM CONSTRUCTION HELPER PROCEDURE: ??MRI ABDOMEN WWO CONTRAST, DATE/TIME OF EXAM: ??04/25/2022 10:30 AM, LOCATION ??[facility] INDICATION: K76.0: NAFLD (nonalcoholic fatty liver [...] CONTRAST, DATE/TIME OF EXAM: 0:30 AM, LOCATION [facility] INDICATION: K76.0: NAFLD (nonalcoholic fatty liver [...] MD on 04/25/2022 12:42 PM Linda Gurrola APRN-SOFA COVER INSPECTOR MR ORDERABL ES * CREATININE - POCT INTERFACED (04/25/2022 9:46 AM CONSTRUCTION HELPER) Creatinine POCT 0.73 0.30 - 1.30 mg/dL 04/25/2022 9:[address] [facility] eGFR >90 >90 mL/min/1.7 3 m2 04/25/2022 9:48 AM CONSTRUCTION HELPER [facility] Blood BLOOD SPECIMEN / Unknown 04/25/2022 9:46 AM CONSTRUCTION HELPER 04/25/2022 9:48 AM CONSTRUCTION HELPER Linda Gurrola NIKE ATHLETE-SOFA COVER INSPECTOR LAB - POINT OF CARE ORDERABLES [address] [address], [facility] [phone] documented in this encounter Visit Diagnoses Diagnosis [...] $ Given - Contrast 04/25/2022 10:07 AM CONSTRUCTION HELPER 10 mL documented in this encounter Care Teams Systems Design Engineer Relationship Specialty Start Date End Date Jonelle Elam MD [address] [place] [phone] PCP - General Family Medicine 10/24/18 Manju Rainey DO [address] [place] [address] Bariatrics 08/11/20 Skylar Canales PA-C [address] [facility] 3 [place] [address] Physician Consultative Sales Associate Nephrology 03/04/22 documented as of this encounter
--- OUTSIDE RECORDS SUMMARY | 2024-04-14 20:10 | XMS_ITS | Referral Summary ---
Author Organization [facility] Address [address] [facility] [place] [address] Care Team Providers Care Chemist Intern Name Role Phone Jonelle Elam MD Primary Care Provider Manju Rainey DO Unavailable [phone] Skylar Canales PA-C Unavailable [phone] Source Comments [facility],non-owned Affiliates and Associated Physician Practices is amultiple site organization consisting of ambulatory clinics and hospital sitesin [place], [place], [place] and [place]. This disclosure is being madepursuant to the Care Everywhere program and may not contain all information available regarding this patient. Last updated 17.[facility] Allergies Active Allergy Reactions Criticality Noted Date [...] by mouth once daily APPT NEEDED CALL [phone] X 1 TO SCHEDULE 90 tablet 01/30/2023 [...] due to NAEFD. Headaches have not worsened. [facility] Plan: 1. Reviewed headaches and if there is change to her current headache pattern, worsening, or persistent, she should be seen promptly for preeclampsia evaluation. 2. Start Riboflavin, increase fluid intake. Assessment & Plan (08/14/2019 4:27 PM CDT): Has not been able to pick up and delivery driver riboflavin from her pharmacy. Maternal Medicine recommendations: 1. encouraged to look for an qhja-hhc-mszyecl vitamin-B complex Assessment & Plan (07/03/2019 12:54 PM CDT): Intermittent headaches. Maternal Medicine recommendations: 1. reminded that she has a prescription for riboflavin for headache prevention Assessment & Plan (06/05/2019 5:54 PM BEATER ENGINEER): May be related to poor vision. Maternal Medicine recommendations: 1. should maintain follow-up with company miner blasting 2. Riboflavin prescribed for headache prevention Cataracts, bilateral 01/02/2019 Overview (06/05/2019): Has artificial lens in left eye Assessment & Plan (06/05/2019 1:27 PM BEATER ENGINEER): Having decreased nighttime vision Maternal Medicine recommendations: 1. recommend follow-up with company miner blasting NAFLD (nonalcoholic fatty liver disease) 019 Overview [...] testing every trimester--to be ordered by primary machine cage maker, please send copy of recent results. 2. Follow up with GI as recommended in fall for repeat MRI and fibroscan. ?? Assessment & Plan (08/14/2019 4:26 PM CDT): Remains at risk for complications of related to pre-existing liver disease and suspected chronic hypertension. Maternal Medicine recommendations: 1. Serial liver function testing every trimester--to be ordered by primary machine cage maker 2. please forward a copy of the glucose challenge test results Assessment & Plan (06/05/2019 5:50 PM BEATER ENGINEER): Unremarkable LFTs. Remains at risk for complications of related to pre-existing liver disease and suspected chronic hypertension. Maternal Medicine recommendations: 1. Serial liver function testing every trimester--to be ordered by primary machine cage maker GERD (gastroesophageal reflux disease) 9 Lumbar herniated disc 04/03/2014 Assessment & Plan (08/28/2019 12:41 PM CDT): Remains bothersome with use of maternity support belt. Denies any falls. Has PT referral and has not made appointment. Swimming with some relief. [facility] Plan: 1. Again encouraged to reach [...] belt Assessment & Plan (06/05/2019 5:49 PM BEATER ENGINEER): Having significant pain at night after exercise [...] fiber Assessment & Plan (06/05/2019 5:41 PM BEATER ENGINEER): Maternal Medicine recommendations: 1. nutrition counseling--initiated today 2. Encouraged to increase dietary fiber Sleep apnea Overview (06/05/2019): Has not had a sleep study Assessment & Plan (08/14/2019 4:25 PM CDT): Previously instructed to have evaluation for sleep apnea Assessment & Plan (06/05/2019 5:49 PM BEATER ENGINEER): instructed to have evaluation for sleep apnea [...] elizabeth Non-reac tive 01/02/2019 1:33 PM CDT [facility] Comment: Hepatitis C Antibody screen indicates no [...] Kitchen MD LAB - CHEMISTRY [facility] [address] [place] [address] from Last 3 Months or Most Recently Relevant to Health Maintenance Care Teams Chemist Intern Relationship Specialty Start Date End Date Jonelle Elam MD [address] [place] [address] [place] [address] PCP - General Family Medicine 10/24/18 Manju Rainey DO [address] [place] [address] Bariatrics 08/11/20 Skylar Canales PA-C [address] [place] [address] Physician Table Worker Packager Nephrology 03/04/22
--- OUTSIDE RECORDS SUMMARY | 2024-04-14 20:10 | XMS_ITS | Encounter Summary ---
Author Organization [facility] Address [address] [place] [address] Care Team Providers Care Referral Coordinator Name Role Phone Jonelle Elam MD Primary Care Provider Manju Rainey DO Unavailable [phone] Skylar Canales-Desirae Unavailable [phone] Reason for Referral * Consultation (Routine) - Closed Specialty Diagnoses / Procedures Referred By Contava t Referred To Contact Weight Management Diagnoses NAFLD (nonalcoholic fatty liver disease) Morbid (severe) obesity due to excess calories (HCC) Linda Gurrola APRN-CNP [address] [place] [address] [facility] [place] [address] Referral ID Status Reason Start Date Expiration Date V isits Requested Visits Authorized [id number] Closed Specialty Services Required 04/25/2022 04/25/2023 1 1 RANCE SALES PRODUCER Encounter Details Date Type Department Care Team (Late st Contact Info) Description 04/25/2022 Orders Only [facility] - GI [address] [place] [address], [place] [phone] Linda Gurrola, MASTER SHIP-SECURITY SYSTEMS ADMINISTRATOR [address] [place] [address] NAFLD (nonalcoholic fatty liver disease) ; Morbid [...] Coronavirus/COVID-19? No / Unsure 04/22/2022 9:05 AM INSURANCE SALES PRODUCER documented as of this encounter Plan of [...] (HCC) documented in this encounter Care Teams Referral Coordinator Relationship Specialty Start Date End Date Jonelle Elam MD [address] [place] [address] [place] [address] PCP - General Family Medicine 10/24/18 Manju Rainey DO [address] [place] [address] Bariatrics 08/11/20 Skylar Canales PA-C [address] [facility] [place] [place] [phone] Physician Hot Mill Worker Nephrology 03/04/22 documented as of this encounter
--- OUTSIDE RECORDS SUMMARY | 2024-04-14 20:10 | XMS_ITS | Encounter Summary ---
Author Organization [facility] Address [address] [place] [address] Care Team Providers Care Seasoner Name Role Phone Jonelle Elam MD Primary Care Provider [phone] Manju Rainey DO Unavailable [phone] Reason for Referral * Procedure (Routine) - Closed Specialty Diagnoses / Procedures Referred By Ritika bonner Referred To Contact Diagnoses MOOSE (obstructive sleep apnea) Essential hypertension BMI 60.0-69.9, adult (HCC) Nasal congestion SOB (shortness of breath) on exertion Family history of asthma Procedures COMPLETE PFT Reena Pollock APNP-CNP [address] [facility] 2L [facility] OF PULMONARY/[place] [address] [facility] Pft [address] [place] [address] Referral ID Status Reason Start Date Expiration Date Visits Re quested Visits Authorized [id number] Closed 11/03/2021 11/03/2022 1 1 Reason for Visit * Procedure (Routine) - Closed Specialty Diagnoses / Procedures Referred By Ritika bonner Referred To Contact Diagnoses MOOSE (obstructive sleep apnea) Essential hypertension BMI 60.0-69.9, adult (HCC) Nasal congestion SOB (shortness of breath) on exertion Family history of asthma Procedures COMPLETE PFT Reena Pollock APNP-DIRECTOR SAFETY COUNCIL [address] [facility] 2L DIV OF PULMONARY/[place] [address] [facility] Pft [address] [place] [address] Referral ID Status Reason Start Date Expiration Date Visits Re quested Visits Authorized [id number] Closed 11/03/2021 11/03/2022 1 1 Encounter Details Date Type Department Care Team (Latest Contact Info) Description 12/17/2021 1:00 PM CDT - 12/17/2021 1:07 PM CDT Hospital Encounter [facility] PFT [address] [place] [phone] Reena Pollock APNP-DIRECTOR SAFETY COUNCIL [address] [facility] 2L DIV OF PULMONARY/[place] [address] Discharge Disposition: Home or Self Care Social [...] 04/27/2022 vitamin D, ergocalciferol, (DRISDOL) 1.25 MG (75491 UT) capsuleIndications:Vit gudino D Deficiency Take 1 [...] COMPLETE PFT (12/17/2021 1:07 PM CDT) Impressions [facility] - 12/17/2021 1:07 PM CDT [facility] DEPARTMENT OF PULMONARY, CRITICAL CARE, AND [...] [facility] I have personally reviewed pulmonary function test data and finding. I concur with fellow's note. Kasandra Denny MD Narrative [facility] - 12/17/2021 1:07 PM CDT Yohannes Sheffield MD ? 12/20/2021 ??8:53 AM Reena A Dettenmeier APNP-DIRECTOR SAFETY COUNCIL RESPIRAT ORY THERAPY ORDERABLES Performing Organization Address City/State/[facility] Co de Phone Number [facility] [address] [place] [address], [facility] documented in this encounter Visit Diagnoses [...] to be administered per Protocol by a Simulation Specialist. Each Kit contains the following syringes: 16 mg/ml - 3 mL syringe 4 mg/ml - 3 mL syringe 1 mg/ml - 3 mL syringe 0.25 mg/ml - 3 mL syringe 0.0625 mg/ml - 3 mL syringe Fluid Syringe (no drug) - 3 mL syringe $ Given 12/17/2021 2:45 PM CDT 1 kit documented in this encounter Care Teams Seasoner Relationship Specialty Start Date End Date Jonelle Elam MD [address] [place] [address] [place] [address] PCP - General Family Medicine 10/24/18 Manju Rainey DO [address] [place] [address] Bariatrics 08/11/20 documented as of this encounter
--- OUTSIDE RECORDS SUMMARY | 2024-04-14 20:10 | XMS_ITS | Encounter Summary ---
Author Organization [facility] Address [address] [place] [address] Care Team Providers Care Boxing And Pressing Supervisor Name Role Phone Jonelle Elam MD Primary Care Provider Manju Rainey DO Unavailable [phone] Skylar Canales-Desirae Unavailable [phone] Reason for Visit * Reason Onset Date Comments Medication Prior Auth Request 11/10/2022 Encounter Details Date Type Department Care Team (Late st Contact Info) Description 11/10/2022 Telephone [facility] - Neurology [address] [place] [address], [place] [address] Jeff Bird, AKUA-CORPORATE SECURITY OFFICER [address] [place] [address] [place] [address] Medication Prior Auth Request Social History Tobacco [...] renewal initiated with Juan via covermymeds for [facility]. Included last visit note dated 04/27/2022. Will await a response. DOWD: [id number] documented in this encounter Plan of Treatment [...] on filedocumented in this encounter Care Teams Boxing And Pressing Supervisor Relationship Specialty Start Date End Date Jonelle Elam MD [address] [place] [address] [place] [address] PCP - General Family Medicine 10/24/18 Manju Rainey DO [address] [place] [address] Bariatrics 08/11/20 Skylar Canales PA-C [address] [facility] 3[facility] [place] [id number] Physician Interpreter And Translator Nephrology 03/04/22 documented as of this encounter
--- OUTSIDE RECORDS SUMMARY | 2024-04-14 20:10 | XMS_ITS | Encounter Summary ---
Author Organization [facility] Address [address] [facility] [place] [address] Care Team Providers Care Wind Power Project Manager Name Role Phone Jonelle Elam MD Primary Care Provider Manju Rainey DO Unavailable [phone] Skylar Canales PA-C Unavailable [phone] Encounter Details Date Type Department Care Team [...] Coronavirus/COVID-19? No / Unsure 04/22/2022 9:05 AM BIOSTATISTICS MANAGER documented as of this encounter Plan of [...] on filedocumented in this encounter Care Teams Wind Power Project Manager Relationship Specialty Start Date End Date Jonelle Elam MD [address] [place] [address] PCP - General Family Medicine 10/24/18 Manju Rainey DO [address] [place] [address] Bariatrics 08/11/20 Skylar Canales PA-C [address] [facility] 3[facility] [place] [address] Physician Curriculum Developer Nephrology 03/04/22 documented as of this encounter
--- OUTSIDE RECORDS SUMMARY | 2024-04-14 20:10 | XMS_ITS | Encounter Summary ---
Author Organization [facility] Address [address] [place] [address] Care Team Providers Care Environmental Science Technician Name Role Phone Jonelle Elam MD Primary Care Provider [phone] Manju Rainey DO Unavailable [phone] Reason for Referral * Procedure (Routine) - Closed Specialty Diagnoses / Procedures Referred By Ritika bonner Referred To Contact Diagnoses Essential hypertension BMI 60.0-69.9, adult (HCC) Nasal congestion SOB (shortness of breath) on exertion Family history of asthma Procedures BRONCHIAL CHALLENGE WITH METHACHOLINE Reena Pollock APNP-CNP [address] [facility] 2L [facility] OF PULMONARY/[place] [address] [facility] [address] [place] [address] Referral ID Status Reason Start Date Expiration Date Visits Re quested Visits Authorized [id number] Closed 11/03/2021 11/03/2022 1 1 * Procedure (Routine) - Closed Specialty Diagnoses / Procedures Referred By Ritika bonner Referred To Contact Diagnoses MOOSE (obstructive sleep apnea) Essential hypertension BMI 60.0-69.9, adult (HCC) Nasal congestion SOB (shortness of breath) on exertion Family history of asthma Procedures COMPLETE PFT Reena Pollock APNP-CNP [address] [facility] [address]L [facility] OF PULMONARY/[place] [address] [facility] [address] [place] [address] Referral ID Status Reason Start Date Expiration [...] PROC POLYSOMNOGRAPHY, SPLIT NIGHT Reena Pollock APNP-CNP [address] [place] [address] [facility] [address] [place] [address] Referral ID Status Reason Start Date Expiration Date Visits Re quested Visits Authorized [id number] Closed 11/03/2021 11/03/2022 1 1 Reason for Visit * Reason Comments Sleep Problem Neck size 17.5 inche s. Excessive Sleepiness Breathing Problem Fatigue * Evaluate & Treat (Routine) - Closed Specialty Diagnoses / Procedures Referred By Ritika bonner Referred To Contact Sleep Medicine / Sleep Center Diagnoses MOOSE (obstructive sleep apnea) Settu, Karpagam, MICROSTRATEGY DEVELOPER-BLENDING COORDINATOR [address] [place] [address] Reena Pollock APNP-CNP [address] [place] [address] Referral ID Status Reason Start Date Expiration Date V isits Requested Visits Authorized [id number] Closed Specialty Services Required 08/27/2021 08/27/2022 1 1 Encounter Details Date Type Department Care Team (Late st Contact Info) Description 11/03/2021 10:20 AM CDT Office Visit [facility] [address] [place] [address] Jeff Bird APRN-CNP [address] [place] [address] Reena Pollock APNP-CNP [address] DIV OF PULMONARY/[place] [address] MOOSE (obstructive sleep apnea) (Primary Dx); Essential [...] Tasneem Mtz - 11/03/2021 11:44 AM CDT [facility], First Floor, [address] MRN# Intersection of [facility] [address] [place] [address] Date of Sleep Study:01/09/2022 Arrive by 08:30 [...] maintain cleanliness, we ask that you bring nrgbu-ud-obd items such as a sandwich, apple, etc. [...] ON THE EVENING OF THE TEST; call to speak to or leave a message for the in-clinic evening Bindery Production Manager. If you are unable to come, kindly call us in advance at [facility]. Obtaining authorization for a sleep test is [...] visit by Johnny 40 minutes Jeff Bird APRN-BLENDING COORDINATOR [address] [place] [address] Chief Complaint Patient presents with ??? Sleep Problem Neck size 17.5 inches. ??? Excessive Sleepiness ??? Breathing Problem ??? Fatigue HPI: Patient has never had a previous sleep evaluation. 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 B/o cataracts does not drive much. Roscoe Sleep Scale - 15 Fatigue Severity Scale -56 Sleep Schedule: Works from [employer]-- 5 or 7 am to 4 or [...] Time most tired: after lunch Snoring intensity: Morrison when outside room, door closed Witnessed apneas: [...] ??? vitamin D, ergocalciferol, (DRISDOL) 1.25 MG (30022 UT) capsule, Take 1 (one) capsule by [...] Occupational History ??? 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 Smoking status: [...] study including the monitoring. Son CPAP thru [facility] Healthy diet and exercise Good sleep hygiene Stay home as much as feasible and practice COVID-19 precautions (ie, physical distancing, wearing amask when outdoors, handwashing, etc.). RTC: Post PSG Visit lasted for 87 minutes. Time includes pre-chart, post charting, and visit time. More than 50% of visit was direct jckn-cx-unun, including counseling and coordination of care. Reena Pollock, Ph.D, D.N.P, A.N.P.-B.C. Adult Nurse Practitioner fax machine operator Director, [facility] These notes have been electronically signed by Reena Pollock APN as the Authorizing and/or the Encounter Provider in the [facility]. 11/03/2021 Coding Rationale New [...] the following test(s): epworth fatigue Suggested code: 28954 documented in this encounter Plan of Treatment [...] WITH METHACHOLINE (12/17/2021 1:07 PM CDT) Impressions [facility] - 12/17/2021 1:07 PM CDT [facility] DEPARTMENT OF PULMONARY, CRITICAL CARE, [...] of Pulmonary, Critical Care and Sleep Medicine [facility] I have personally reviewed pulmonary function test data and finding. I concur with fellow's note. Kasandra Denny MD Narrative [facility] - 12/17/2021 1:07 PM CDT Yohannes Sheffield MD ? 12/20/2021 ??8:58 AM Reena A Dettenmeier APNP-BLENDING COORDINATOR PFT ORDE KURT Performing Organization Address [facility] Co de Phone Number [facility] [address] * COMPLETE PFT (12/17/2021 1:07 PM CDT) Impressions [facility] - 12/17/2021 1:07 PM CDT [facility] DEPARTMENT OF PULMONARY, CRITICAL CARE, [...] of Pulmonary, Critical Care and Sleep Medicine [facility] I have personally reviewed pulmonary function test data and finding. I concur with fellow's note. Kasandra Denny MD Narrative [facility] - 12/17/2021 1:07 PM CDT Yohannes Sheffield MD ? 12/20/2021 ??8:53 AM Reena A Dettenmeier APNP-BLENDING COORDINATOR RESPIRAT ORY THERAPY ORDERABLES Performing Organization Address [facility] Co de Phone Number [facility] [address] * Ref to Sleep Specialist - Nisha (11/03/2021 12:45 PM CDT) Jeff Bird MICROSTRATEGY DEVELOPER-BLENDING COORDINATOR OUTPATIENT REFER RALS documented in this encounter [...] asthma documented in this encounter Care Teams Environmental Science Technician Relationship Specialty Start Date End Date Jonelle Elam MD [address] [place] [address] [place] [address] PCP - General Family Medicine 10/24/18 Manju Rainey DO [address] [place] [address] Bariatrics 08/11/20 documented as of this encounter
--- OUTSIDE RECORDS SUMMARY | 2024-04-14 20:10 | XMS_ITS | Encounter Summary ---
Author Organization [facility] Address [address] [facility] [address] Care Team Providers Care Furniture Assembler Name Role Phone Jonelle Elam MD Primary Care Provider Manju Rainey DO Unavailable [phone] Skylar Canales-Desirae Unavailable [phone] Reason for Visit * Reason Comments Establish Care Encounter Details Date Type Department Care Team (Late st Contact Info) Description 03/23/2022 9:00 AM FINANCIAL ADVISOR Office Visit [facility] Weight Management Services [address] [facility] [address] [place] [address] Angela Muñ[place] [address] [facility] [address] [place] [address] Metabolic syndrome (Primary Dx); Class [...] Comments Blood Pressure 150/95 03/23/2022 9:25 AM FINANCIAL ADVISOR Pulse 94 03/23/2022 9:25 AM FINANCIAL ADVISOR Temperature 36.8 ??C (98.2 ??F) 03/23/2022 9:25 AM CS T Respiratory Rate 24 03/23/2022 9:25 AM FINANCIAL ADVISOR Oxygen Saturation 98% 03/23/2022 9:25 AM FINANCIAL ADVISOR Inhaled Oxygen Concentration - - Weight 156.9 kg (346 lb) 03/23/2022 9:25 AM FINANCIAL ADVISOR Height 157.5 cm (5' 2 ) 03/23/2022 9:25 AM FINANCIAL ADVISOR Body Mass Index 63.28 03/23/2022 9:25 AM FINANCIAL ADVISOR documented in this encounter Patient Instructions * Patient Instructions* Angela Muñoz MD - 03/23/2022 10:09 AM FINANCIAL ADVISOR I recommend for you the following: Metformin information Flaquita Fitzpatrick (shots approved for weight loss) ___Dietician Visit- This is a one on one visit with one of our dieticians. It is billed to your insurance so call your insurance company to ensure they will cover a outside installer apprentice visit for weight loss (primarily use code E66.01). This visit is usually scheduled 3-4 weeks after your initial visit. Please call our office to schedule at [phone]. __x_Behavior Modification Classes- These are weekly classes taught by a health educator focusing onskills related to weight loss. These classes are highly recommended. Our teacher, Silvina Azul, can help you enroll at your convenience. Her number is [phone]. ___ Counselor Visit- Our counselors meet with patients to focus on behaviors that are keeping them from meeting their goals. They meet with patients in our office here and the number to schedule is [phone]. _ A Summary of Initial Visit: Time Restricted Eating Limit eating to a 8-10 hour time period daily. This will help to burn fat and may help overall health. Log Your Food Intake Keep a calendar of what you eat daily. You can use pen and paper or an jaqui on the phone like [employer] or LoseIt! (Both have free plans). You [...] Plus (20 oz) 160 0 40 Yes [facility], [facility] Premier Protein Shake (11 oz) 160 5 30 No Logan Ignacio???s [place] Core Power (14 oz) 170 8 26 No Madelaine Pelletier [facility] Nutrition Plan (11.5 oz) 150 3 30 [...] Replace Breakfast or Lunch with a Shake NCIAL ADVISOR documented in this encounter Progress Notes * [...] going to do weight loss surgery; sleeve. Logging Rafter Laborer visits prior. Deane it was going to fail. Also worried about liver size. Lost down to 300. Deane depressed afterwards about not pursuing surgery. Highest [...] in tea. 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 spironolactone (Aldactone) 25 MG tablet Take [...] 5.9* 5.7 EAG 123 117 Total Energy Xhdzqnounmy=5125 Total Energy Expenditure to lose 2.2 pounds/cimn=[address] Juan Body comp: Fat %:59 Muscle mass:134.6 lb Visceral fat:24 BMR: 2185 Low Impression/Plan: ICD-10-CM 1. Metabolic syndrome E88.81 2. Class 3 severe obesity due to excess calories with serious comorbidity and body mass index (BMI)of 60.0 to 69.9 in adult (CMS/[facility]) E66.01 Z68.44 3. Prediabetes R73.03 4. NAFLD [...] was 37 minutes. Angela Muñoz MD 04/07/2022 NCIAL ADVISOR documented in this encounter Miscellaneous Notes * Clinical References AVS - Angela Muñoz MD - 03/23/2022 10:10 AM FINANCIAL ADVISOR Images from the original note were not included. [id number] Metformin Oral Tablet Brands: Glucophage Uses This [...] about all medicines taken. Include prescription and earl-qhp-wzczupy medicines, vitamins, and herbal medicines. Speak with [...] you have any questions about this medicine. [email or web address] IMPORTANT NOTE: This document tells you briefly how to take your medicine, but it does not tell youall there is to know about it. Your doctor or pharmacist may give you other documents about your medicine. Please talk to them if you have any questions. Always follow their advice. There is a more complete description of this medicine available in Irish. Scan this code on your smartphone or tablet or use the web address below. You can also ask your pharmacist for a printout. If you have any questions, please ask your pharmacist. The display and use of this drug information is subject to Terms of Use. Copyright(c) 2021 [employer] ?? The [employer]. All rights reserved. This information is not intended as a substitute for professional medical care. Always follow your healthcare professional's instructions. NCIAL ADVISOR documented in this encounter Plan of [...] hypertension documented in this encounter Care Teams Furniture Assembler Relationship Specialty Start Date End Date Jonelle Elam MD [address] [place] [address] [place] [address] PCP - General Family Medicine 10/24/18 Manju Rainey DO [address] [place] [address] Bariatrics 08/11/20 Skylar Canales PA-C [address] [place] [address] Physician Water Fabricator Operator Nephrology 03/04/22 documented as of this encounter
--- OUTSIDE RECORDS SUMMARY | 2024-04-14 20:10 | XMS_ITS | Patient Health Summary ---
Author Organization [facility] Address [address] [place] [address] Care Team Providers Care Business Process Representative Name Role Phone Jonlele Elam MD Primary Care Provider [phone] Manju Rainey DO Unavailable [phone] Skylar Canales PA-C Unavailable [phone] Note from [facility],non-owned Affiliates and Associated Physician Practices is amultiple site organization consisting of ambulatory clinics and hospital sitesin [place], [place], [place] and [place]. This disclosure is being madepursuant to the Care Everywhere program and may not contain all information available regarding this patient. Last updated 17.[facility] Allergies * Cephalexin(Rash) -Medium Criticality * Labetalol(Shortness [...] by mouth once daily APPT NEEDED CALL [phone] X 1 TO SCHEDULE Active Problems Problem [...] [facility](Performed 12/02/2020) Performed for Liver lesion * [place] LIVER ELASTOGRAPHY(Performed 10/27/2020) Performed for Liver lesion, Focal nodular hyperplasia of liver, NAFLD (nonalcoholic fatty liver disease), Morbid obesity (HCC) * MRI ABDOMEN WWO CONTRAST(Performed 04/17/2020) Performed for Liver lesion, NAFLD (nonalcoholic fatty liver disease) * CREATININE - POCT INTERFACED(Performed 04/17/2020) * LAB MISC TEST(Performed 03/09/2020) * [place] LIVER ELASTOGRAPHY(Performed 02/03/2020) Performed for Nonalcoholic fatty [...] disease, Morbid obesity (HCC), Liver lesion * [id number] BLOOD PHENOTYPING PANEL(Performed 01/02/2019) Performed for Nonalcoholic fatty liver disease, Morbid obesity (HCC), Liver lesion * HEPATIC FUNCTION PANEL(Performed 01/02/2019) Performed for Nonalcoholic fatty liver disease, Morbid obesity (HCC), Liver lesion * [place] LIVER ELASTOGRAPHY(Performed 11/05/2018) Performed for Fatty liver Results * EYE EXAM (06/14/2022) Anatomical Region Laterality Modality Other Narrative 06/14/2022 Ordered by an unspecified provider. Scanned Document SCANNING ONLY * EYE EXAM (06/13/2022) Anatomical Region Laterality Modality Other Narrative 06/13/2022 Ordered by an unspecified provider. Scanned Document SCANNING ONLY * (ABNORMAL) CBC WITH DIFFERENTIAL (05/12/2022 4:33 PM TELEPHONIC RN) Only the most recent of3 resultswithin the time period is included. WBC 9.0 3.5 - 10.5 10? 3 /uL 05/12/2022 4:56 PM [facility] RBC 4.24 3.80 - 5.20 10? 6 /uL 05/12/2022 4:56 PM [facility] Hemoglobin 11.6(L) 12.0 - 15.6 g/dL 05/12/2022 4:56 PM [facility] Hematocrit 34.4(L) 35.0 - 45.0 % 05/12/2022 4:56 PM [facility] MCV 81.1 80.7 - 98.3 fL 05/12/2022 4:56 PM [facility] MCH 27.4 26.7 - 34.0 pg 05/12/2022 4:56 PM [facility] MCHC 33.7 30.8 - 35.9 g/dL 05/12/2022 4:56 PM [facility] RDW-SD 38.5 36.0 - 50.0 fL 05/12/2022 4:56 PM [facility] RDW-CV 13.2 11.2 - 14.8 % 05/12/2022 4:56 PM [facility] Platelet Count 341 150 - 400 10? 3 /uL 05/12/2022 4:56 PM [facility] MPV 9.3(L) 9.4 - 12.9 fL 05/12/2022 4:56 PM [facility] nRBC Absolute 0.00 0 10? 3 /uL 05/12/2022 4:56 PM [facility] nRBC Auto 0.0 0 /100 WBC 05/12/2022 4:56 PM [facility] Neutrophils % 63.0 35.0 - 70.0 % 05/12/2022 4:56 PM [facility] Lymphocytes % 25.6 20.0 - 43.0 % 05/12/2022 4:56 PM [facility] Monocytes % 7.0 5.0 - 13.0 % 05/12/2022 4:56 PM [facility] Eosinophils % 3.1 0.0 - 6.0 % 05/12/2022 4:56 PM [facility] Basophil % 0.7 0.0 - 2.0 % 05/12/2022 4:56 PM [facility] Neutrophils Absolute 5.65 1.60 - 7.00 10? 3 /uL 05/12/2022 4:56 PM [facility] Lymphocyte Absolute 2.29 1.10 - 3.90 10? 3 /uL 05/12/2022 4:56 PM [facility] Monocytes Absolute 0.63 0.26 - 1.07 10? 3 /uL 05/12/2022 4:56 PM [facility] Eosinophils Absolute 0.28 0.00 - 0.47 10? 3 /uL 05/12/2022 4:56 PM [facility] Basophils Absolute 0.06 0.00 - 0.08 10? 3 /uL 05/12/2022 4:56 PM [facility] Immature Granulocytes % 0.6 0.0 - 1.0 % 05/12/2022 4:56 PM [facility] Immature Granulocytes Absolute 0.05 05/12/2022 4:56 PM [facility] Blood BLOOD SPECIMEN / Unknown Lab Venipuncture / Unknown 05/12/2022 4:33 PM TELEPHONIC RN 05/12/2022 4:48 PM [facility] Linda Gurrola CONSTRUCTION ADMINISTRATOR-BILLING AND ACCOUNTING STAFF ASSISTANT LAB - HEMAT OLOGY ORDERABLES [facility] [address] [place] [address], [facility] [phone] * (ABNORMAL) COMPREHENSIVE METABOLIC PANEL (05/12/2022 4:33 PM [facility]) Only the most recent of2 resultswithin the time period is included. BUN 9 7 - 26 mg/dL 05/12/2022 5:18 PM [facility] Creatinine 0.57 0.56 - 0.96 mg/dL 05/12/2022 5:18 PM [facility] Sodium 135(L) 136 - 145 mmol/L 05/12/2022 5:18 PM [facility] Potassium 3.8 3.5 - 4.5 mmol/L 05/12/2022 5:18 PM [facility] Chloride 104 98 - 107 mmol/L 05/12/2022 5:18 PM [facility] CO2 25 22 - 29 mmol/L 05/12/2022 5:18 PM [facility] Glucose 98 70 - 115 mg/dL 05/12/2022 5:18 PM [facility] Calcium 9.5 8.4 - 10.2 mg/dL 05/12/2022 5:18 PM [facility] Protein Total 7.3 6.0 - 8.3 g/dL 05/12/2022 5:18 PM [facility] Albumin 3.9 3.4 - 5.0 g/dL 05/12/2022 5:18 PM [facility] Bilirubin Total 0.7 0.2 - 1.2 mg/dL 05/12/2022 5:18 PM [facility] Alkaline Phosphatase 63 40 - 150 U/L 05/12/2022 5:18 PM [facility] ALT 27 5 - 55 U/L 05/12/2022 5:18 PM [facility] AST 20 5 - 34 U/L 05/12/2022 5:18 PM [facility] Anion Gap 10 8 - 18 05/12/2022 5:18 PM [facility] BUN/Creatinine Ratio 16 7 - 23 05/12/2022 5:18 PM TELEPHONIC RN [facility] Osmolality Calculated 279 270 - 300 mOsm/kg 05/12/2022 5:18 PM TELEPHONIC RN [facility] Albumin/Globulin Ratio 1.1 1.1 - 2.3 05/12/2022 5:18 PM TELEPHONIC RN [facility] eGFR by CKD-EPI >90 >=90 mL/min/1.7 3 m2 05/12/2022 5:18 PM TELEPHONIC RN [facility] Blood BLOOD SPECIMEN / Unknown Lab Venipuncture / Unknown 05/12/2022 4:33 PM TELEPHONIC RN 05/12/2022 4:48 PM TELEPHONIC RN Linda Gurrola CONSTRUCTION ADMINISTRATOR-BILLING AND ACCOUNTING STAFF ASSISTANT LAB - CHEMI STRY ORDERABLES [address] [address], [facility] [phone] * MRI ABDOMEN WWO CONTRAST (04/25/2022 10:30 AM TELEPHONIC RN) Only the most recent of6 resultswithin the time period is included. Anatomical Region Laterality Modality Abdomen Magnetic Resonan ce 04/25/2022 12:2 7 PM TELEPHONIC RN Impressions 04/25/2022 12:42 PM TELEPHONIC RN IMPRESSION: 1. No substantial change in [...] 3. Hepatic steatosis. > Interpreting Provider: Chance Casatneda MD on 04/25/2022 12:42 PM Narrative 04/25/2022 12:42 PM TELEPHONIC RN PROCEDURE: ??MRI ABDOMEN WWO CONTRAST, DATE/TIME [...] CONTRAST, DATE/TIME OF EXAM: 0:30 AM, LOCATION [facility] INDICATION: K76.0: [...] MD on 04/25/2022 12:42 PM Linda Gurrola CONSTRUCTION ADMINISTRATOR-BILLING AND ACCOUNTING STAFF ASSISTANT MR ORDERABL ES * CREATININE - POCT INTERFACED (04/25/2022 9:46 AM TELEPHONIC RN) Only the most recent of4 resultswithin the time period is included. Creatinine POCT 0.73 0.30 - 1.30 mg/dL 04/25/2022 9:48 AM TELEPHONIC RN [facility] eGFR >90 >90 mL/min/1.7 3 m2 04/25/2022 9:48 AM TELEPHONIC RN [facility] Blood BLOOD SPECIMEN / Unknown 04/25/2022 9:46 AM TELEPHONIC RN 04/25/2022 9:48 AM TELEPHONIC RN Linda Gill Gurrola CONSTRUCTION ADMINISTRATOR-BILLING AND ACCOUNTING STAFF ASSISTANT LAB - POINT OF CARE ORDERABLES [place] [id number] [place] [address], [facility] [phone] * (ABNORMAL) ALDOSTERONE URINE TIMED (04/22/2022 9:13 AM TELEPHONIC RN) Aldosterone 24 Hour Urine 22.6 1.2 - 28.1 ug/d 04/27/2022 12:41 PM TELEPHONIC RN [email or web address] ([facility]) Collection Time Hours 24 hr 04/27/2022 12:[address] [facility]) Comment: Per 24h calculations are provided to aid interpretation for collections with a duration of 24 hours and an average daily urine volume. For specimens with notable deviations in collection time or volume, ratios of analytes to a corresponding urine creatinine concentration may assist in result interpretation. Volume 24 Hour Urine 1700 mL 04/27/2022 12:[address] [facility]) Creatinine Urine 98 mg/dL 04/27/19 12:[address] [facility]) Creatinine 24 Hour Urine 1666(H) 700 - 1600 mg/d 04/27/2022 12:41 PM [email or web address]) Comment: Performed by [facility], [address] [place] [address] [email or web address], Paul Werner MD, PHD, Lab. Director Urine TIMED URINE SPECIMEN / Unknown Timed Urine Volume Measurement / Unknown 04/22/2022 9:13 AM TELEPHONIC RN 04/22/2022 9:21 AM TELEPHONIC RN Skylar Canales PA-C LAB - URINE CHEMIS TRY ORDERABLES [facility]) [address] [place] [address], [facility] * POTASSIUM URINE TIMED (04/22/2022 9:13 AM TELEPHONIC RN) Potassium Urine 21.2 Not Established mmol/L 04/22/2022 9:51 AM [facility] Collection Time Timed Urine 24 Hrs 04/22/2022 9:51 AM [facility] Potassium 24 Hour Urine 36.0 25.0 - 150.0 mmol/24 hrs 04/22/2022 9:51 AM [facility] Volume Timed Urine 1,700 mL 04/22/2022 9:51 AM [facility] Comment:START 04/21/22718- --STOP 04/22/22701---WT 347 HT 5'2 Urine TIMED URINE SPECIMEN / Unknown Timed Urine Volume Measurement / Unknown 04/22/2022 9:13 AM TELEPHONIC RN 04/22/2022 9:21 AM TELEPHONIC RN Skylar Canales PA-C LAB - URINE CHEMIS TRY ORDERABLES Performing Organization Address [facility]/ZIP Co de Phone Number [address] [address], [place] [phone] * URINE MICROSCOPIC ONLY REFLEX TO CULTURE (03/04/2022 10:41 AM TELEPHONIC RN) Reflex Status Culture not indicated 03/04/2022 12:04 PM [facility] RBC UA 0-2 None Seen, 0-2, 3-5 /HPF 03/04/2022 12:04 PM [facility] WBC UA 0-5 None Seen, 0-5 /HPF 03/04/2022 12:04 PM [facility] Squamous Epithelial Cells UA 0-2 None Seen, 0-2, 3-5 /HPF 03/04/2022 12:04 PM [facility] Mucus UA 1+ /LPF 03/04/2022 12:04 PM [facility] Urine URINE SPECIMEN OBTAINED BY CLEAN CATCH PROCEDURE / Unknown Collection / Unknown 03/04/2022 10:41 AM TELEPHONIC RN 03/04/2022 11:17 AM TELEPHONIC RN Narrative [facility] - 03/04/2022 12:04 PM TELEPHONIC RN Skylar Canales PA-C LAB - URINALYSIS O RDERABLES [address] [address], [place] [phone] * PTH INTACT ([facility]) (03/04/2022 10:41 AM TELEPHONIC RN) Only the most recent of2 resultswithin the time period is included. PTH Intact 70.5 8.0 - 77.0 pg/mL 03/04/2022 11:55 AM [facility] Blood BLOOD SPECIMEN / Unknown Lab Venipuncture / Unknown 03/04/2022 10:41 AM TELEPHONIC RN 03/04/2022 11:23 AM TELEPHONIC RN Skylar Canales PA-C LAB - CHEMISTRY OR DERABLES [facility] [address] [place] [address], [facility] [phone] * (ABNORMAL) URINALYSIS REFLEX MICROSCOPIC REFLEX CULTURE (03/04/2022 10:41 AM TELEPHONIC RN) Color UA Yellow Straw, Yellow 03/04/2022 12:04 PM [facility] Clarity UA Clear Clear 03/04/2022 12:04 PM [facility] Specific [place] UA 1.025 1.005 - 1.030 03/04/2022 12:04 PM [facility] pH UA 5.5 5.0 - 8.0 pH 03/04/2022 12:04 PM [facility] Protein UA Negative Negative 03/04/2022 12:04 PM [facility] Glucose UA Negative Negative 03/04/2022 12:04 PM [facility] Ketone UA Negative Negative 03/04/2022 12:04 PM [facility] Bilirubin UA Negative Negative 03/04/2022 12:04 PM [facility] Blood UA Trace(A) Negative 03/04/2022 12:04 PM [facility] Nitrite UA Negative Negative 03/04/2022 12:04 PM [facility] Leukocyte Esterase Negative Negative 03/04/2022 12:04 PM [facility] Urobilinogen UA Negative Negative mg/dL 03/04/2022 12:04 PM [facility] Urine URINE SPECIMEN OBTAINED BY CLEAN CATCH PROCEDURE / Unknown Collection / Unknown 03/04/2022 10:41 AM TELEPHONIC RN 03/04/2022 11:17 AM TELEPHONIC RN Skylar Canales PA-C LAB - URINALYSIS O RDERABLES Performing Organization Address City/[facility]/ZIP Co de Phone Number [address] [address], [place] [phone] * TSH REFLEX FREE T4 (03/04/2022 10:41 AM TELEPHONIC RN) Only the most recent of2 resultswithin the time period is included. TSH 0.926 0.350 - 4.940 uIU/mL 03/04/2022 12:12 PM TELEPHONIC RN [facility] Blood BLOOD SPECIMEN / Unknown Lab Venipuncture / Unknown 03/04/2022 10:41 AM TELEPHONIC RN 03/04/2022 11:23 AM TELEPHONIC RN Skylar Canales PA-C LAB - CHEMISTRY OR DERABLES Performing Organization Address City/[facility]/ZIP Co de Phone Number [address] [address], [place] [phone] * (ABNORMAL) URIC ACID BLOOD (03/04/2022 10:41 AM TELEPHONIC RN) Uric Acid 6.6(H) 2.6 - 6.0 mg/dL 03/04/2022 11:54 AM TELEPHONIC RN [facility] Blood BLOOD SPECIMEN / Unknown Lab Venipuncture / Unknown 03/04/2022 10:41 AM TELEPHONIC RN 03/04/2022 11:23 AM TELEPHONIC RN Skylar Canales PA-C LAB - CHEMISTRY OR DERABLES Performing Organization Address City/[facility]/ZIP Co de Phone Number [address] [address], [place] [phone] * (ABNORMAL) MICROALB/CREAT RATIO URINE RANDOM PANEL (03/04/2022 10:41 AM TELEPHONIC RN) Albumin Random Urine 104.6 Not Established ug/mL 03/04/2022 11:35 AM [facility] Creatinine Urine 94 Not Established mg/dL 03/04/2022 11:35 AM [facility] Urine Albumin/Creati nine Ratio 111(H) <30 mg/g 03/04/2022 11:35 AM [facility] Urine URINE SPECIMEN OBTAINED BY CLEAN CATCH PROCEDURE / Unknown Collection / Unknown 03/04/2022 10:41 AM TELEPHONIC RN 03/04/2022 11:17 AM [facility] Skylar Canales PA-C LAB - URINE CHEMIS TRY ORDERABLES [facility] [address] [place] [address], [facility] [phone] * RENIN ACTIVITY (03/04/2022 10:41 AM [facility]) Renin 4.3 ng/mL/hr 03/08/2022 9:29 AM [facility] [employer] ([facility]) Comment: INTERPRETIVE INFORMATION: Renin Activity Adult, [...] developed and its performance characteristics determined by [facility]. It has not been cleared or approved by the US Food and Drug Administration. This test was performed in a CLIA certified laboratory and is intended for clinical purposes. Performed By: [facility] [address] [place] [address] Cable Worker Helper: Paul Werner MD, PhD Blood BLOOD SPECIMEN / Unknown Lab Venipuncture / Unknown 03/04/2022 10:41 AM TELEPHONIC RN 03/04/2022 11:17 AM [facility] Skylar Canales PA-C LAB - CHEMISTRY OR DERABLES Performing Organization Address City/State/[facility] Co de Phone Number [facility] [employer] ([facility]) [address] * (ABNORMAL) HEMOGLOBIN A1C [IN-HOUSE TEST] (03/04/2022 10:41 AM [facility]) Only the most recent of2 resultswithin the time period is included. Hemoglobin A1c 5.9(H) <=5.6 % 03/05/2022 10:53 AM [facility] Estimated Average Glucose 123 mg/dL 03/05/2022 10:53 AM [facility] Comment: HbA1c Interpretation: Normal : < 5.7% Pre-diabetes: 5.7-6.4% Diabetes: Equal to or greater than 6.5% Test results diagnostic of diabetes should be repeated for confirmation. Treatment target values recommended by ADA and other clinical organizations should be used to evaluate metabolic control in patients. Reference: [place] [employer], Standards of Care in Diabetes [...] to evaluate metabolic control in patients. Reference: [place] Diabetes Association, Standards of Care in Diabetes -2020 In patients 70 years and older consider HbA1c target range of 7.0-7.5% (Reference: Joe A, et al. JUSTINDA. 2012) The Sebia assay for the measurement of HbA1c is a National Glycohemoglobin Standardization Program (NGSP) certified method. Blood BLOOD SPECIMEN WITH EDTA / Unknown Lab Venipuncture / Unknown 03/04/2022 10:41 AM TELEPHONIC RN 03/04/2022 11:23 AM TELEPHONIC RN Skylar Canales PA-C LAB - CHEMISTRY OR DERABLES Performing Organization Address [facility]/State/[facility] de Phone Number [address] [address], [facility] [phone] * (ABNORMAL) VITAMIN D 25-HYDROXY (03/04/2022 10:41 AM TELEPHONIC RN) Only the most recent of2 resultswithin the time period is included. [facility] Vitamin D, 25 Hydroxy 15.0(L) 30.0 - 80.0 ng/mL 03/04/2022 12:12 PM TELEPHONIC RN [facility] Comment: The recommendations for 25-Hydroxy Vitamin [...] Lab Venipuncture / Unknown 03/04/2022 10:41 AM TELEPHONIC RN 03/04/2022 11:23 AM TELEPHONIC RN Skylar Canales PA-C LAB - CHEMISTRY OR DERABLES Performing Organization Address [facility]/State/[facility] Co de Phone Number [facility] [address] [address], [facility] [phone] * ALDOSTERONE BLOOD (03/04/2022 10:41 AM TELEPHONIC RN) [facility] Aldosterone 10.4 ng/dL 03/06/2022 9:37 PM TELEPHONIC RN [facility] [employer] ([facility]) Comment: INTERPRETIVE INFORMATION: Aldosterone, Serum Reference [...] reference intervals for this test in the [facility] Test Directory ([employer]). Performed By: [facility] [employer] [address] [place] [address] Cable Worker Helper: Paul Werner MD, PhD Blood BLOOD SPECIMEN / Unknown Lab Venipuncture / Unknown 03/04/2022 10:41 AM TELEPHONIC RN 03/04/2022 11:17 AM TELEPHONIC RN Skylar Canales PA-C LAB - CHEMISTRY OR DERABLES [facility] ([facility]) [address] [place] [address], [facility] * (ABNORMAL) RENAL FUNCTION PANEL (03/04/2022 10:41 AM TELEPHONIC RN) BUN 9 7 - 26 mg/dL 03/04/2022 11:54 AM [facility] Creatinine 0.55(L) 0.56 - 0.96 mg/dL 03/04/2022 11:54 AM [facility] Sodium 138 136 - 145 mmol/L 03/04/2022 11:54 AM [facility] Potassium 3.8 3.5 - 4.5 mmol/L 03/04/2022 11:54 AM [facility] Chloride 102 98 - 107 mmol/L 03/04/2022 11:54 AM [facility] CO2 25 22 - 29 mmol/L 03/04/2022 11:54 AM [facility] Glucose 97 70 - 115 mg/dL 03/04/2022 11:54 AM [facility] Albumin 4.2 3.4 - 5.0 g/dL 03/04/2022 11:54 AM [facility] Calcium 9.9 8.4 - 10.2 mg/dL 03/04/2022 11:54 AM [facility] Phosphorus 3.7 2.9 - 5.1 mg/dL 03/04/2022 11:54 AM [facility] Anion Gap 15 8 - 18 03/04/2022 11:54 AM [facility] BUN/Creatinine Ratio 16 7 - 23 03/04/2022 11:54 AM [facility] Osmolality Calculated 285 270 - 300 mOsm/kg 03/04/2022 11:54 AM [facility] eGFR by CKD-EPI >90 >=90 mL/min/1.7 3 m2 03/04/2022 11:54 AM [facility] Blood BLOOD SPECIMEN / Unknown Lab Venipuncture / Unknown 03/04/2022 10:41 AM TELEPHONIC RN 03/04/2022 11:23 AM TELEPHONIC RN Skylar Canales PA-C LAB - CHEMISTRY OR DERABLES Performing Organization Address City/[facility]/ZIP Co de Phone Number [facility] [address] [place] [address], [facility] [phone] * (ABNORMAL) PROTEIN CREATININE RATIO URINE RANDOM PNL (03/04/2022 10:41 AM TELEPHONIC RN) Protein Urine 18 Not Established mg/dL 03/04/2022 11:35 AM [facility] Creatinine Urine 94 Not Established mg/dL 03/04/2022 11:35 AM [facility] Protein/Creati nine Ratio Urine 0.19(H) <0.10 03/04/2022 11:35 AM [facility] Urine URINE SPECIMEN OBTAINED BY CLEAN CATCH PROCEDURE / Unknown Collection / Unknown 03/04/2022 10:41 AM TELEPHONIC RN 03/04/2022 11:17 AM TELEPHONIC RN Skylar Canales PA-C LAB - URINE CHEMIS TRY ORDERABLES Performing Organization Address City/[facility]/ZIP Co de Phone Number [facility] [address] [place] [address], [facility] [phone] * MAGNESIUM BLOOD (03/04/2022 10:41 AM TELEPHONIC RN) Only the most recent of2 resultswithin the time period is included. Magnesium 2.0 1.6 - 2.6 mg/dL 03/04/2022 11:54 AM [facility] Blood BLOOD SPECIMEN / Unknown Lab Venipuncture / Unknown 03/04/2022 10:41 AM TELEPHONIC RN 03/04/2022 11:23 AM TELEPHONIC RN Skylar Canales PA-C LAB - CHEMISTRY OR DERABLES Performing Organization Address [facility]/State/ZIP Co de Phone Number [address] [address], [facility] [phone] * ALLERGEN RESPIRATORY PROF (IL,[place],IA) IGE (12/25/2021 [...] 0 kU/L [facility] INSURANCE BILL Allergen Cockroach Rwandan <0.10 Class 0 kU/L [facility] INSURANCE BILL Allergen Penicillin chrysogen <0.10 Class 0 kU/L [facility] INSURANCE BILL Allergen C Herbarum <0.10 Class 0 kU/L [facility] INSURANCE BILL Allergen Aspergillus fumigatus <0.10 Class 0 kU/L [facility] INSURANCE BILL Allergen A Tenuis <0.10 Class 0 kU/L [facility] INSURANCE BILL Allergen Maple <0.10 Class 0 kU/L [facility] INSURANCE BILL Allergen Mountain [place] <0.10 Class 0 kU/L [facility] INSURANCE BILL Allergen [place] <0.10 Class 0 kU/L [facility] INSURANCE BILL Allergen Elm <0.10 Class 0 kU/L [facility] INSURANCE BILL Allergen Maple Signal [place] <0.10 Class 0 kU/L [facility] INSURANCE BILL Allergen [place] Tree <0.10 Class 0 kU/L [facility] INSURANCE BILL Allergen White Eduardo <0.10 Class 0 kU/L [facility] INSURANCE BILL Allergen [place] <0.10 Class 0 kU/L [facility] INSURANCE BILL Allergen [place] <0.10 Class 0 kU/L [facility] INSURANCE BILL Allergen White [place] <0.10 Class 0 kU/L [facility] INSURANCE BILL Allergen Short/Common Ragweed <0.10 Class 0 kU/L [facility] INSURANCE BILL Allergen Tong[place] Thistle <0.10 Class 0 kU/L [facility] INSURANCE BILL Allergen Rough Pigweed <0.10 Class 0 kU/L [facility] INSURANCE BILL Allergen Rough [place] Elder <0.10 Class 0 kU/L [facility] INSURANCE BILL Allergen Mouse Urine <0.10 Class 0 kU/L [facility] INSURANCE BILL 12/25/2021 10:4 4 AM CDT 12/25/2021 Narrative Resulting Agency Comment Lab Testing performed at: [facility] [address] ??[facility] [phone] Reena A Dettenmeier APNP-BILLING AND ACCOUNTING STAFF ASSISTANT LAB - CH EMISTRY ORDERABLES Performing Organization Address City/[facility]/ZIP Co de Phone Number [facility] INSURANCE BILL [address] [place] [phone] * COMPLETE PFT (12/17/2021 1:07 PM CDT) Impressions [facility] - 12/17/2021 1:07 PM CDT [facility] DEPARTMENT OF PULMONARY, CRITICAL CARE, AND SLEEP [...] of Pulmonary, Critical Care and Sleep Medicine [facility] [employer] [facility] I have personally reviewed pulmonary function test data and finding. I concur with fellow's note. Kasandra Denny MD Narrative [facility] - 12/17/2021 1:07 PM CDT Yohannes Sheffield MD ? 12/20/2021 ??8:53 AM Reena A Dettenmeier APNP-BILLING AND ACCOUNTING STAFF ASSISTANT RESPIRAT ORY THERAPY ORDERABLES Performing Organization Address [facility] Co de Phone Number [facility] [address] [place] [address], [facility] * BRONCHIAL CHALLENGE WITH METHACHOLINE (12/17/2021 1:07 PM CDT) Impressions [facility] - 12/17/2021 1:07 PM CDT [facility] DEPARTMENT OF PULMONARY, CRITICAL CARE, AND SLEEP [...] of Pulmonary, Critical Care and Sleep Medicine [facility] I have personally reviewed pulmonary function test data and finding. I concur with fellow's note. Kasandra Denny MD Narrative [facility] - 12/17/2021 1:07 PM CDT Yohannes Sheffield MD ? 12/20/2021 ??8:58 AM Reena Pollock APNP-BILLING AND ACCOUNTING STAFF ASSISTANT PFT KACY HICKS [facility] Organization Address City/State/ZIP Co de Phone Number [facility] [address] * Ref to Sleep Specialist - [facility] (11/03/2021 12:45 PM CDT) Jeff Bird CONSTRUCTION ADMINISTRATOR-BILLING AND ACCOUNTING STAFF ASSISTANT OUTPATIENT REFER RALS * SARS-COV-2 (COVID-19) INTERNAL (02/14/2021 11:00 AM TELEPHONIC RN) COVID-19 PCR Not detected Not detected 02/15/2021 11:22 AM TELEPHONIC RN [facility] MICROBIOLOGY Microbiology SPECIMEN FROM NASOPHARYNGEAL STRUCTURE / Unknown Collection / Unknown 02/14/2021 11:00 AM TELEPHONIC RN 02/14/2021 11:00 AM TELEPHONIC RN Narrative [facility] MICROBIOLOGY - 02/15/2021 11:22 AM TELEPHONIC RN This nucleic acid amplification assay performance was validated by [facility]. This test has been authorized [...] assay are available upon request. Carmen Lee CONSTRUCTION ADMINISTRATOR-BILLING AND ACCOUNTING STAFF ASSISTANT LAB - MICROBIOLO GY ORDERABLES [facility] MICROBIOLOGY [address] [place] [address], [facility] [phone] * CARDIAC EKG ORDER (02/10/2021 10:19 AM TELEPHONIC RN) Narrative 02/10/2021 10:19 AM TELEPHONIC RN Ordered by an unspecified provider. Scanned Document CARDIAC SERVICES ORD ERABLES * EKG 12-LEAD (02/09/2021 11:08 AM TELEPHONIC RN) Ventricular Rate 67 BPM [facility] Atrial Rate 67 BPM [facility] P-R Interval 172 ms [facility] QRS Duration ms 94 ms [facility] Q-T Interval ms 404 ms [facility] QTC Calculation (Bezet) 426 ms [facility] MUSE Calculated P [place] 24 degrees [facility] MUSE Calculated R [place] 14 degrees [facility] MUSE Calculated T [place] 16 degrees [facility] MUSE Interpretation EKG NORMAL SINUS RHYTHM NORMAL ECG Confirmed by MD ELSA, [facility] ([id number]), editor news ZELALEM ROBLES ([id number]) on 02/09/2021 2:18:40 PM [facility] MUSE 02/09/2021 11:0 8 AM TELEPHONIC RN 02/09/2021 2:18 PM TELEPHONIC RN Mary Long MD ECG ORDERABLE S Performing Organization Address City/[facility]/ZIP Co de Phone Number [facility] MUSE * BLOOD TYPE VERIFICATION (02/09/2021 11:07 AM TELEPHONIC RN) ABO Rh O POS 02/09/2021 11:32 AM TELEPHONIC RN [facility] BLOOD BANK Blood Bank BLOOD SPECIMEN / Unknown Lab Venipuncture / Unknown 02/09/2021 11:07 AM TELEPHONIC RN 02/09/2021 11:11 AM TELEPHONIC RN Mary Long MD LAB - BLOOD B ANK ORDERABLES Performing Organization Address [facility] Co de Phone Number [facility] BLOOD BANK [address] [place] [address] * TYPE + SCREEN PANEL (02/09/2021 11:04 AM TELEPHONIC RN) ABO Rh O POS 02/09/2021 11:52 AM TELEPHONIC RN [facility] BLOOD BANK Antibody Screen NEG 11:52 AM TELEPHONIC RN [facility] BLOOD BANK Blood Bank BLOOD SPECIMEN / Unknown Lab Venipuncture / Unknown 02/09/2021 11:04 AM TELEPHONIC RN 02/09/2021 11:09 AM TELEPHONIC RN Mary Long MD LAB - BLOOD B ANK ORDERABLES Performing Organization Address [facility] de Phone Number [facility] BLOOD BANK [address] [place] [address] * PTT [facility] (12/02/2020 2:34 PM CDT) APTT 25.0 23.0 - 38.4 Seconds 12/02/2020 3:32 PM CDT [facility] Comment:Suggested therapeuti c range for full dose I.V. unfractionated heparin therapy for venous thromboembolism is 71 to 109 seconds. Blood BLOOD SPECIMEN / Unknown Lab Venipuncture / Unknown 12/02/2020 2:34 PM CDT 12/02/2020 3:17 PM CDT Keith Bojorquez MD LAB - COAGULATION OR DERABLES Performing Organization Address [facility]/ZIP Co de Phone Number [address] [address], [facility] [phone] * PT-INR [facility] (12/02/2020 2:34 PM CDT) PT 13.2 12.1 - 14.8 Seconds 12/02/2020 3:32 PM CDT [facility] INR 1.0 See Comment 12/02/2020 3:32 PM CDT [facility] Comment:The suggested therap eutic range for standard coumadin (warfarin) therapy is an INR of 2.0-3.0. For high-risk patients (Mechanical Mitral Valve Prosthesis, etc.), the suggested prophylactic therapeutic range is an INR of 2.5-3.5. Blood BLOOD SPECIMEN / Unknown Lab Venipuncture / Unknown 12/02/2020 2:34 PM CDT 12/02/2020 3:17 PM CDT Maribel Kitchen MD LAB - COAGULATION OR DERABLES Performing Organization Address [facility] Co de Phone Number [facility] [address] [place] [address], [facility] [phone] * VITAMIN B1 (12/02/2020 2:34 PM CDT) Vitamin B1 Whole Blood 82 70 - 180 nmol/L 12/07/2020 10:09 AM CDT [facility] ([facility]) Comment: INTERPRETIVE INFORMATION: Vitamin B1, Whole Blood This assay measures the concentration of thiamine diphosphate (TDP), the primary active form of vitamin B1. Approximately 90 percent of vitamin B1 present in whole blood is TDP. Thiamine and thiamine monophosphate, which comprise the remaining 10 percent, are not measured. This test was developed and its performance characteristics determined by [facility]. It has not been cleared or approved by the US Food and Drug Administration. This test was performed in a CLIA certified laboratory and is intended for clinical purposes. Performed By: [facility] [address] [place] [address] Cable Worker Helper: Amena Guerrero MD Blood BLOOD SPECIMEN / Unknown Lab Venipuncture / Unknown 12/02/2020 2:34 PM CDT 12/02/2020 3:18 PM CDT Keith Bojorquez MD LAB - CHEMISTRY KACY HICKS [address] * FOLATE (12/02/2020 2:34 PM CDT) Folate 9.0 7.0 - 31.4 ng/mL 12/02/2020 4:16 PM CDT [facility] Blood BLOOD SPECIMEN / Unknown Lab Venipuncture / Unknown 12/02/2020 2:34 PM CDT 12/02/2020 3:18 PM CDT Keith Bojorquez MD LAB - CHEMISTRY [facility]Y HICKS [address] [address], [facility] [phone] * BILIRUBIN DIRECT (12/02/2020 2:34 PM CDT) Bilirubin Conjugated 0.2 0.1 - 0.5 mg/dL 12/02/2020 3:44 PM CDT [facility] Blood BLOOD SPECIMEN / Unknown Lab Venipuncture / Unknown 12/02/2020 2:34 PM CDT 12/02/2020 3:18 PM CDT Maribel Kitchen MD LAB - CHEMISTRY [facility]Y HICKS [address] [address], [facility] [phone] * VITAMIN B12 (12/02/2020 2:34 PM CDT) Vitamin B12 806 213 - 816 pg/mL 12/02/2020 4:17 PM CDT [facility] Blood BLOOD SPECIMEN / Unknown Lab Venipuncture / Unknown 12/02/2020 2:34 PM CDT 12/02/2020 3:18 PM CDT Keith Bojorquez MD LAB - CHEMISTRY [facility]ACY HICKS [address] [address], [place] [phone] * (ABNORMAL) IRON + TRANSFERRIN PANEL (12/02/2020 2:34 PM CDT) Iron 46 40 - 150 ug/dL 12/02/2020 4:48 PM CDT [facility] Transferrin 301 174 - 382 mg/dL 12/02/2020 4:48 PM CDT [facility] Transferrin Saturation % 12(L) 16 - 50 % 12/02/2020 4:48 PM CDT [facility] TIBC Calculated 376 240 - 450 ug/dL 12/02/2020 4:48 PM CDT [facility] Blood BLOOD SPECIMEN / Unknown Lab Venipuncture / Unknown 12/02/2020 2:34 PM CDT 12/02/2020 3:17 PM CDT Keith Bojorquez MD LAB - CHEMISTRY [facility]Y HICKS [address] [address], [place] [phone] * FERRITIN (12/02/2020 2:34 PM CDT) Ferritin 31 13 - 204 ng/mL 12/02/2020 5:06 PM CDT [facility] Blood BLOOD SPECIMEN / Unknown Lab Venipuncture / Unknown 12/02/2020 2:34 PM CDT 12/02/2020 3:17 PM CDT Keith Bojorquez MD LAB - CHEMISTRY [facility]ACY HICKS [address] [address], [place] [phone] * (ABNORMAL) LIPID PROFILE (12/02/2020 2:34 PM CDT) Cholesterol Total 178 <200 mg/dL 12/02/2020 3:44 PM CDT [facility] HDL 53 >40 mg/dL 12/02/2020 3:44 PM T [facility] Comment: ATP III Classification of HDL Cholesterol: ? <40 mg/dL: ??Considered a major risk factor. ? >60 mg/dL: ??Considered a negative risk factor. ? LDL Calculated 88 <100 mg/dL 12/02/2020 3:44 PM T [facility] Comment: ATP III Classification of LDL Cholesterol: ?<100 mg/dL: ??Optimal ? 100 - 129 mg/dL: ??Near Optimal/Above Optimal ? 130 - 159 mg/dL: ??Borderline High ? 160 - 189 mg/dL: ??High ?>190 mg/dL: ??Very High ? Triglycerides 186(H) <150 mg/dL 12/02/2020 3:44 PM T [facility] Comment: ATP III Classification of Triglycerides: ?<150 mg/dL: ??Normal ? 150 - 199 mg/dL: ??Borderline High ? 200 - 400 mg/dL: ??High ?>500 mg/dL: ??Very High Blood BLOOD SPECIMEN / Unknown Lab Venipuncture / Unknown 12/02/2020 2:34 PM CDT 12/02/2020 3:18 PM CDT Keith Bojorquez MD LAB - CHEMISTRY KACY HICKS [facility] [address] [place] [address], [facility] [phone] * PROC FIBROSCAN (10/27/2020 11:38 AM CDT) Narrative Gabriella Moon RN - 10/27/2020 11:38 AM CDT Gabriella Moon RN ? 10/27/2020 12:22 PM Technical difficulties:An Maribel Kitchen MD PROCEDURE/MINOR SURG ICAL ORDERABLES * LAB MISC TEST (03/09/2020) Blood BLOOD SPECIMEN / Unknown Historical Provider LAB SEND OUT * PROC FIBROSCAN (02/03/2020 2:23 PM TELEPHONIC RN) Narrative Tejas mSith MD - 02/03/2020 2:23 PM TELEPHONIC RN Tejas Smith MD ? 02/07/2020 11:02 [...] patients with nonalcoholic fatty liver disease. Gastroenterology 2019;156:0555-8969. Tammi MS, Rae R, Van Carlos Alberto [...] FIB4 score (Daviduke et al. Hepatology Communications 2019;3:6573-7664) or NAFLD Fibrosis score (Johnston et al. Clinical Gastroenterology and Hepatology 2019;17:2199-5367. from routine clinical data. 3. Liver stiffness [...] change as additional supporting data becomes available. [email or web address] Maribel Kitchen MD PROCEDURE/MINOR SURG ICAL ORDERABLES * SONOGRAM - COMPLETE (08/14/2019 1:47 PM CDT) Only the most recent of3 resultswithin the time period is included. Anatomical Region Laterality Modality Other 08/14/2019 1:47 PM CDT Narrative 08/14/2019 2:51 PM CDT ? [facility] Maternal Medicine ? [facility] ?PHONE: ??FAX: Pat. Name: ?MARY CARMEN CROSS Pat. No: ?[id number] Study Date: ?? 08/14/2019 ??1:47pm , Age: ? 1995, 23 Pregnancies: ?? 3, Para 2 Height: ? 61 in Weight: ? 288 lb LMP: ?Unknown GA by Base: ?? 28w4d ?? LUISA: 11/02/2019 GA by US: ? 29w0d ?? LUISA: 10/30/2019 GA Selected: ??28w4d (From Baselin) LUISA: ?11/02/2019 Referring MD: Ede Maldonado MD Lathe Operator: ??Jackeline Baker RDMS, ALBA CPT4: ? 68506 BMI: ?54.41 Hist/Ind: ? Completed Anatomy Screen ?Maternal Liver Lesion ?Class IV Obesity ?CHTN ?PTD @36wks x2 MEASUREMENTS & AGE ? GROWTH EVALUATION Measurement ??GA ? Range ? Srce %for GA Ratios ----- ---- ------- BPD ??7.3 cm 29w2d (67o3o-66i2c) Hadl BPD 60% FL/BPD 0.76 (0.71 - 0.87) HC ??27.2 cm 29w5d (43z7y-17r0x) Hadl HC ??54% FL/AC ??0.22 (0.20 - 0.24) AC ??25.1 cm 29w2d (43l9i-23f8a) Hadl AC ??63% HC/AC ??1.09 (0.99 - 1.18) FL ?? 5.6 cm 29w2d (03p4r-77p6v) Hadl FL ??55% CI ? 0.75 (0.70 - 0.86) HL ?? 5.0 cm 29w2d (28d3h-53j5o) Errol HL ??61% GA for sonogram 29w0d (59d7w-70h4x) ?? Weight Estimate: based on (BPD,HC,AC,FL) Hadlock [...] <Electronic Signature> ??08/14/2019 02:52pm Taurus Maldonado MD [facility] ORDERABLES * (ABNORMAL) HEPATIC FUNCTION PANEL (04/12/2019 3:14 PM TELEPHONIC RN) Only the most recent of2 resultswithin the time period is included. Protein Total 7.8 6.0 - 8.3 g/dL 020 4:02 PM [facility] Albumin 3.9 3.4 - 5.0 g/dL 04/12/2019 4:02 PM [facility] Bilirubin Total 0.7 0.2 - 1.2 mg/dL 04/03 4:02 PM [facility] Bilirubin Conjugated 0.2 0.0 - 0.5 mg/dL 04/12/2019 4:02 PM [facility] Bilirubin Unconjugated 0.5 Unconjugated Bilirubin is a calculated value: Reference ranges have not been established. mg/dL 04/12/2019 4:02 PM [facility] Alkaline Phosphatase 55 40 - 150 Units/L 04/12/2019 4:02 PM [facility] ALT 12 0 - 55 Units/L 04/12/2019 4:02 PM [facility] AST 16 5 - 34 Units/L 04/12/2019 4:02 PM [facility] Albumin/Globulin Ratio 1.0(L) 1.1 - 2.3 04/12/2019 4:02 PM [facility] Blood BLOOD SPECIMEN / Unknown Lab Venipuncture / Unknown 04/12/2019 3:14 PM TELEPHONIC RN 04/12/2019 3:26 PM TELEPHONIC RN Maribel Kitchen MD LAB - CHEMISTRY [facility]Y [facility]IC[facility] [address] [phone] * MITOCHONDRIAL ANTIBODY SCREEN (01/02/2019 12:36 PM CDT) Pathologist [facility] Mitochondrial M2 Antibody 2.3 0.0 - 20.0 Units 01/04/2019 2:12 PM CDT [facility] Comment: Mitochondrial M2 Antibody Numeric Result Interpretation: ?<20.1 Units: ??Negative ?20.1 - 24.9 Units: ??Equivocal ?>24.9 Units: ??Positive ? Blood BLOOD SPECIMEN / Unknown Lab Venipuncture / Unknown 01/02/2019 12:36 PM CDT 01/02/2019 12:50 PM CDT Maribel Kitchen MD LAB - CHEMISTRY [facility]Y HICKS [address] [phone] * [id number]-[id number] BLOOD PHENOTYPING PANEL (01/02/2019 12:36 PM CDT) Sflze-4-Nmfvynfoqz n 123 90 - 200 mg/dL 01/04/2019 4:09 PM CDT [facility] ([facility]) Comment: Effective January 28, 2019 Ymwxf-6-Fgmpdsowqbn, ??Serum reference interval will be changing to: [...] CDT 01/02/2019 12:50 PM CDT Narrative [facility] ([facility]) - 01/04/2019 4:09 PM CDT Performed at: ??01 - [facility] [address] ??[id number] Belt Splicer: Juliocesar Sanders PhD, Phone: ??[phone] Performed at: ??02 - [facility] ??[id number] Belt Splicer: Hari Smith MD, Phone: ??[phone] Maribel Kitchen MD LAB - CHEMISTRY KACY HICKS [facility] ([facility]) [address] [place] [address], [facility] * MEHDI BLOOD SCREEN W/REFLEX TITER (01/02/2019 12:36 PM CDT) MEHDI Negative 01/03/2019 5:08 PM CDT [facility] ([facility]) Comment: ? Negative ?? <1:80 ? Borderline ??1:80 ? Positive ?? >1:80 Blood BLOOD SPECIMEN / Unknown Lab Venipuncture / Unknown 01/02/2019 12:36 PM CDT 01/02/2019 12:49 PM CDT [facility] - 01/03/2019 5:08 PM CDT Performed at: ??01 - [facility] ??[id number] Belt Splicer: Juliocesar Sanders PhD, Phone: ??[phone] Maribel Kitchen MD LAB - CHEMISTRY KACY HICKS [facility] ([facility]) [address] [place] [address]RUST * (ABNORMAL) TRANSFERRIN (01/02/2019 12:36 PM CDT) Transferrin 319 174 - 382 mg/dL 01/02/2019 2:17 PM CDT [facility] Transferrin Saturation % 6(L) 16 - 50 % 01/02/2019 2:17 PM CDT [facility] Blood BLOOD SPECIMEN / Unknown Lab Venipuncture / Unknown 01/02/2019 12:36 PM CDT 01/02/2019 12:50 PM CDT Maribel Kitchen MD LAB - CHEMISTRY KAYC HICKS Performing Organization Address [facility]/ZIP Co de Phone Number [address] [phone] * CERULOPLASMIN (01/02/2019 12:36 PM CDT) Pathologist [facility] Ceruloplasmin 42 20 - 60 mg/dL 01/02/2019 1:13 PM CDT [facility] Blood BLOOD SPECIMEN / Unknown Lab Venipuncture / Unknown 01/02/2019 12:36 PM CDT 01/02/2019 12:50 PM CDT Maribel Kitchen MD LAB - CHEMISTRY KACY HICKS [address] [phone] * SMOOTH MUSCLE ANTIBODY (01/02/2019 12:36 PM CDT) F-Actin Antibody IgG 7.5 0.0 - 19.9 Units 01/04/2019 2:12 PM CDT [facility] Comment: F-Actin Antibody Numeric Result Interpretation: ?<20.0 Units: ??Negative ?20.0 - 30.0 Units: ??Weak Positive ?>30.0 Units: ??Moderate to Strong Positive ? Blood BLOOD SPECIMEN / Unknown Lab Venipuncture / Unknown 01/02/2019 12:36 PM CDT 01/02/2019 12:50 PM CDT Maribel Kitchen MD LAB - SEROLOGY ORDER KAMRON Performing Organization Address [facility] de Phone Number [address] [phone] * HEPATITIS B SURFACE ANTIBODY (01/02/2019 12:36 PM CDT) Hepatitis B Virus Surface Antibody Non-react elizabeth Non-react elizabeth 01/02/2019 1:33 PM CDT [facility] Comment: < 8 mIU/mL Hepatitis B surface Antibody (HBsAb). Nonreactive for HBsAb - individual is considered not immune to Hepatitis B Virus infection. Hepatitis B Surface Antibody Quantitative 1.0 <8.0 mIU/mL 01/02/2019 1:33 PM CDT [facility] Comment: Hepatitis B Surface Antibody Numeric Result Interpretation: ? Nonreactive: ?<8.0 mIU/mL ? Indeterminate: ??8.0 - 12.0 mIU/mL ? Reactive: ?>12.0 mIU/mL ? Blood BLOOD SPECIMEN / Unknown Lab Venipuncture / Unknown 01/02/2019 12:36 PM CDT 01/02/2019 12:50 PM CDT Maribel Kitchen MD LAB - CHEMISTRY ORDMolina HICKS Performing Organization Address [facility] [place] [address], [facility] [phone] * HEPATITIS B SURFACE ANTIGEN W RFLX CONFIRMATION (01/02/2019 12:36 PM CDT) Hepatitis B Virus Surface Antigen Non-reacti ve Non-reacti ve 01/02/2019 1:33 PM CDT [facility] Blood BLOOD SPECIMEN / Unknown Lab Venipuncture / Unknown 01/02/2019 12:36 PM CDT 01/02/2019 12:50 PM CDT Maribel Kitchen MD LAB - CHEMISTRY KACY HICKS [address] [phone] * HEPATITIS C ANTIBODY (01/02/2019 12:36 PM CDT) [facility] Hepatitis C Antibody Non-react elizabeth Non-reac tive 01/02/2019 1:33 PM CDT [facility] Comment: Hepatitis C Antibody screen indicates [...] Kitchen MD LAB - CHEMISTRY KACY HICKS [address] [phone] * (ABNORMAL) HEPATITIS A ANTIBODY (01/02/2019 12:36 PM CDT) Pathologist [facility] Hepatitis A Virus Antibody Total Positive(A ) Negative 01/03/2019 9:10 AM CDT [facility] ([facility]) Blood BLOOD SPECIMEN / Unknown Lab Venipuncture / Unknown 01/02/2019 12:36 PM CDT 01/02/2019 12:49 PM CDT Narrative [facility] ([facility]) - 01/03/2019 9:10 AM CDT Performed at: ??01 - [facility] [place] [address] [facility], [place], [place] ??[id number] Belt Splicer: Juliocesar Sanders PhD, Phone: ??[phone] Maribel Kitchen MD LAB - CHEMISTRY ORDE KURT [facility] ([facility]) [address] [place] [address], [facility] * [place] LIVER ELASTOGRAPHY (11/05/2018 2:54 PM CDT) Narrative [...] change as additional supporting data becomes available. [email or web address] Tejas Jamil MD PROCEDURE/ MINOR SURGICAL ORDERABLES Care Teams Business Process Representative Relationship Specialty Start Date End Date Jonelle Elam MD [address] [place] [address] [place] [address] PCP - General Family Medicine 10/24/18 Manju Rainey DO [address] [place] [address] Bariatrics 08/11/20 Skylar Canales PA-C [address] [facility] 3[facility] [place] [address] Physician Criminal Justice Professor Nephrology 03/04/22
--- OUTSIDE RECORDS SUMMARY | 2024-04-14 20:10 | XMS_ITS | Encounter Summary ---
Author Organization [facility] Address [address] [place] [address] Care Team Providers Care Net Developer Software Engineer C Name Role Phone Jonelle Elam MD Primary Care Provider Manju Rainey DO Unavailable Skylar Canales PA-C Unavailable [phone] Reason for Visit * Reason Comments Hypertension Follow-up Encounter Details Date Type Department Care Team (Late st Contact Info) Description 04/22/2022 9:30 AM PAINT GRINDER Office Visit [facility] - Nephrology [address] [place] [address], [place] [address] Skylar Canales PA-C [address] [place] [address] [address] [place] [phone] Essential hypertension (Primary Dx); Renal artery stenosis [...] Coronavirus/COVID-19? No / Unsure 04/22/2022 9:05 AM PAINT GRINDER documented as of this encounter Last Filed Vital Signs Vital Sign Reading Time Taken Comments Blood Pressure 123/67 04/22/2022 9:29 AM PAINT GRINDER Pulse 85 04/22/2022 9:29 AM PAINT GRINDER Temperature 36.7 ??C (98 ??F) 04/22/2022 9:29 AM PAINT GRINDER Respiratory Rate 18 04/22/2022 9:29 AM PAINT GRINDER Oxygen Saturation 100% 04/22/2022 9:29 AM PAINT GRINDER Inhaled Oxygen Concentration - - Weight 154.2 kg (340 lb) 04/22/2022 9:29 AM PAINT GRINDER Height - - Body Mass Index 62.19 03/23/2022 9:25 AM PAINT GRINDER documented in this encounter Progress Notes * [...] is being further worked up by patient's CARBON PAPER COATING MACHINE SETTER. MARIAA with normal appearing kidneys, however diffusely increased velocities in bilateral renal arteries concerning for stenosis >50-60%. Pt has an upcoming appt with [facility] for worsening LE claudication for which angioplasty likely. Genetic testing done after last encounter (Renasight panel) which was negative. Pt denies CP, JOLEEN, LI, shortness of breath, or abd changes at this time. Outpatient Medications Marked as Taking for the 04/22/22 encounter (Office Visit) with [facility] Medication Sig ??? amLODIPine (Norvasc) [...] to investigate option of intervention with her nursing techn, willrelay accordingly for recommendations. -- Renal function: S Cr normal, low degree of proteinuria. -- Medication Changes: none -- Return to Clinic in 4 month and as needed. [facility] INSURANCE BILL [id number] [facility] [id number] JIMMY Zavala, PAAmbroseC Internal Medicine, Div of Nephrology Hypertension Clinic Collaborating MD: Dr Valarie Landin T GRINDER documented in this encounter Plan of Treatment [...] artery documented in this encounter Care Teams Net Developer Software Engineer C Relationship Specialty Start Date End Date Jonelle Elam MD [address] [place] [address] [place] [address] PCP - General Family Medicine 10/24/18 Manju Rainey DO [address] [place] [address] Bariatrics 08/11/20 Skylar Canales PA-C [address] [facility] 3[facility] [address] Physician [employer] Nephrology 03/04/22 documented as of this encounter
--- OUTSIDE RECORDS SUMMARY | 2024-04-14 20:10 | XMS_ITS | Encounter Summary ---
Author Organization [facility] Address [address] [place] [address] Care Team Providers Care Compression Molding Machine Operator Name Role Phone Jonelle Elam MD Primary Care Provider Manju Rainey DO Unavailable [phone] Skylar Canales PA-C Unavailable [phone] Reason for Referral * Medication Prior Authorization - Authorized Specialty Diagnoses / Procedures Referred By Contava t Referred To Contact Diagnoses Intractable migraine with aura with status migrainosus Jeff Bird APRN-CNP [address] [place] [address] [place] [address] Referral ID Status Reason Start Date Expiration Date V isits Requested Visits Authorized [id number] Authorized 08/09/2022 08/10/2023 1 1 Reason for Visit * Reason Comments Refill Request Encounter Details Date Type Department Care Team (Late st Contact Info) Description 08/09/2022 Refill [facility] [address] [place] [address], [place] [address] Jeff Bird APRN-INSURANCE SALES ASSISTANT [address] [place] [phone] Refill Request Social History Tobacco Use Types [...] migrainosus documented in this encounter Care Teams Compression Molding Machine Operator Relationship Specialty Start Date End Date Jonelle Elam MD [address] [place] [address] PCP - General Family Medicine 10/24/18 Manju Rainey DO [address] [place] [address] Bariatrics 08/11/20 Skylar Canales PA-C [address] [facility] [place] [address] Physician Collections Curator Nephrology 03/04/22 documented as of this encounter
--- OUTSIDE RECORDS SUMMARY | 2024-04-14 20:10 | XMS_ITS | Encounter Summary ---
Author Organization [facility] Address [address] [place] [address] Care Team Providers Care Retail Salesperson Name Role Phone Jonelle Elam MD Primary Care Provider Manju Rainey DO Unavailable Skylar Canales PA-C Unavailable Reason for Visit * Reason Comments Refill Request Encounter Details Date Type Department Care Team (Late st Contact Info) Description 01/28/2023 Refill [facility] - Nephrology [address] [place] [address], [place] [address] Skylar Canales PA-C [address] [place] [address] [address] DIV [place] [address] Refill Request Social History Tobacco Use Types [...] on filedocumented in this encounter Care Teams Retail Salesperson Relationship Specialty Start Date End Date Jonelle Elam MD [address] [place] [address] PCP - General Family Medicine 10/24/18 Manju Rainey DO [address] [place] [address] Bariatrics 08/11/20 Skylar Canales PA-C [address] [facility] 3[facility] [place] [address] Physician Health Spa Manager Nephrology 03/04/22 documented as of this encounter
--- OUTSIDE RECORDS SUMMARY | 2024-04-14 20:10 | XMS_ITS | Encounter Summary ---
Author Organization [facility] Address [address] [place] [address] Care Team Providers Care Agricultural Engineering Teacher Name Role Phone Jonelle Elam MD Primary Care Provider Manju Rainey DO Unavailable [phone] Skylar Canales-Desirae Unavailable [phone] Reason for Visit * Reason Comments Hypertension Encounter Details Date Type Department Care Team (Late st Contact Info) Description 03/04/2022 9:00 AM INTERIOR WALL ASSEMBLER Office Visit [facility] - Nephrology [address] [place] [address], [place] [phone] Erica Roman MD [address] [place] [address] [place] [address] Secondary hypertension (Primary Dx) Social History Tobacco [...] Comments Blood Pressure 148/86 03/04/2022 9:12 AM INTERIOR WALL ASSEMBLER Pulse 89 03/04/2022 9:12 AM INTERIOR WALL ASSEMBLER Temperature 36.7 ??C (98 ??F) 03/04/2022 9:12 AM INTERIOR WALL ASSEMBLER Respiratory Rate - - Oxygen Saturation 100% 03/04/2022 9:12 AM INTERIOR WALL ASSEMBLER Inhaled Oxygen Concentration - - Weight 151.5 kg (334 lb) 03/04/2022 9:12 AM INTERIOR WALL ASSEMBLER Height - - Body Mass Index 63.11 [...] for the 03/04/22 encounter (Office Visit) with [facility] NEPH HYPERTENSION 308 Medication Sig ??? amLODIPine [...] TIMED [facility] INSURANCE BILL [address] [facility] [id number] Patient D/W who agrees with A/P. High complexity of care given history, family history, and comorbid conditions. JIMMY Zavala PA-C Internal Medicine, Div of Nephrology Hypertension Clinic Collaborating MD: Dr Valarie Landin RIOR WALL ASSEMBLER documented in this encounter Plan of [...] ALDOSTERONE URINE TIMED Routine 04/22/2022 9:13 AM INTERIOR WALL ASSEMBLER Secondary hypertension POTASSIUM URINE TIMED Routine 04/22/2022 9:13 AM INTERIOR WALL ASSEMBLER Secondary hypertension documented in this encounter Results * POTASSIUM URINE TIMED (04/22/2022 9:13 AM INTERIOR WALL ASSEMBLER) Potassium Urine 21.2 Not Established mmol/L 04/22/2022 9:51 AM INTERIOR WALL ASSEMBLER [facility] Collection Time Timed Urine 24 Hrs 04/22/2022 9:51 AM [facility] Potassium 24 Hour Urine 36.0 25.0 - 150.0 mmol/24 hrs 04/22/2022 9:51 AM [facility] Volume Timed Urine 1,700 mL 04/22/2022 9:51 AM [facility] Comment:START 04/21/22718- --STOP 04/22/22701---WT 347 HT 5'2 Urine TIMED URINE SPECIMEN / Unknown Timed Urine Volume Measurement / Unknown 04/22/2022 9:13 AM INTERIOR WALL ASSEMBLER 04/22/2022 9:21 AM [facility] Skylar Canales PA-C LAB - URINE CHEMIS TRY ORDERABLES [facility] [address] [place] [address], [facility] [phone] * (ABNORMAL) ALDOSTERONE URINE TIMED (04/22/2022 9:13 AM [facility]) Aldosterone 24 Hour Urine 22.6 1.2 - 28.1 ug/d 04/27/2022 12:41 PM [facility] [employer] [facility]) Collection Time Hours 24 hr 04/27/2022 12:41 PM [facility] [employer] [facility]) Comment: Per 24h calculations are provided to aid interpretation for collections with a duration of 24 hours and an average daily urine volume. For specimens with notable deviations in collection time or volume, ratios of analytes to a corresponding urine creatinine concentration may assist in result interpretation. Volume 24 Hour Urine 1700 mL 04/27/2022 12:41 PM [facility] [employer] [facility]) Creatinine Urine 98 mg/dL 04/27/19 12:41 PM [facility] [employer] [facility]) Creatinine 24 Hour Urine 1666(H) 700 - 1600 mg/d 04/27/2022 12:41 PM [facility] [employer] [facility]) Comment: Performed by [employer], [address] [place] [id number] [email or web address], Paul Werner MD, PHD, Lab. Director Urine TIMED URINE SPECIMEN / Unknown Timed Urine Volume Measurement / Unknown 04/22/2022 9:13 AM INTERIOR WALL ASSEMBLER 04/22/2022 9:21 AM INTERIOR WALL ASSEMBLER Skylar Canales PA-C LAB - URINE CHEMIS TRY ORDERABLES [facility] [employer] ([facility]) [address] [place] [address], [facility] documented in this encounter Visit Diagnoses Diagnosis Secondary hypertension- Primary documented in this encounter Care Teams Agricultural Engineering Teacher Relationship Specialty Start Date End Date Jonelle Elam MD [address] [place] [address] [place] [address] PCP - General Family Medicine 10/24/18 Manju Rainey DO [address] [place] [address] Bariatrics 08/11/20 Skylar Canales PA-C [address] [facility] [address] [address] Physician Market Developer Nephrology 03/04/22 documented as of this encounter
--- OUTSIDE RECORDS SUMMARY | 2024-04-14 20:10 | XMS_ITS | Encounter Summary ---
Author Organization [facility] Address [address] [place] [address] Care Team Providers Care Dynamiter Name Role Phone Jonelle Elam MD Primary Care Provider [phone] Manju Rainey DO Unavailable [phone] Reason for Visit * Reason Comments Headache Encounter Details Date Type Department Care Team (Late st Contact Info) Description 12/28/2021 3:00 PM CDT Office Visit [facility] Neurology [address] [facility], [place] [phone] Jeff Bird, SCCM ADMINISTRATOR-JOSETTE [facility] [place] [address] Intractable migraine with aura with status migrainosus [...] : 1995 Referring Physician: Jonelle Elam MD [address] [place] [address] [place] [address] Reason for Office Visit: Pain head/ Accompanied [...] Sleep speciality for MOOSE To see Weight waste management recycling technician for Obesity 12/28/21 On rimegepant (NURTEC) 75 MG tablet PRN Gabapentin 100 mg (1) TID Seen ENT for sinus problem Seeing Sleep speciality for MOOSE Scheduled to see Weight waste management recycling technician for Obesity Number of migraines per week: [...] ??? vitamin D, ergocalciferol, (DRISDOL) 1.25 MG (11695 UT) capsule Take 1 (one) capsule by [...] Occupational History ??? 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 Smoking status: [...] in house Pets none Hobby reading-usually on [employer] Dashboard jaqui Social Determinants of Health Financial Resource [...] Sleep speciality for MOOSE To see Weight waste management recycling technician for Obesity as scheduled To Add Galcanezumab-gnlm [...] hypertension documented in this encounter Care Teams Dynamiter Relationship Specialty Start Date End Date Jonelle Elam MD [address] [place] [address] PCP - General Family Medicine 10/24/18 Manju Rainey DO [address] [place] [address] Bariatrics 08/11/20 documented as of this encounter
--- OUTSIDE RECORDS SUMMARY | 2024-04-14 20:10 | XMS_ITS | Encounter Summary ---
Author Organization [facility] Address [address] [place] [address] Care Team Providers Care Superintendent Stevedoring Name Role Phone Jonelle Elam MD Primary Care Provider [phone] Manju Rainey DO Unavailable [phone] Encounter Details Date Type Department Care Team (Late st Contact Info) Description 12/31/2021 Orders Only [facility] [address] [facility], [place] [address] Jeff Bird, GLOVE TAGGER-SIGNAL ENGINEER [address] [place] [address] Intractable migraine with aura with status migrainosus [...] migrainosus documented in this encounter Care Teams Superintendent Stevedoring Relationship Specialty Start Date End Date Jonelle Elam MD [address] [place] [address] [place] [address] PCP - General Family Medicine 10/24/18 Manju Rainey DO [address] [place] [address] Bariatrics 08/11/20 documented as of this encounter
--- OUTSIDE RECORDS SUMMARY | 2024-04-14 20:10 | XMS_ITS | Encounter Summary ---
Author Organization [facility] Address [address] [place] [address] Care Team Providers Care Cattle Care Worker Name Role Phone Jonelle Elam MD Primary Care Provider [phone] Manju Rainey DO Unavailable [phone] Reason for Referral * Procedure (Routine) - Closed Specialty Diagnoses / Procedures Referred By Ritika bonner Referred To Contact Diagnoses Essential hypertension BMI 60.0-69.9, adult (HCC) Nasal congestion SOB (shortness of breath) on exertion Family history of asthma Procedures BRONCHIAL CHALLENGE WITH METHACHOLINE Reena Pollock APNP-CNP [address] [facility] 2L [facility] OF PULMONARY/[place] [address] [facility] Pft [address] [place] [address] Referral ID Status Reason Start Date Expiration Date Visits Re quested Visits Authorized [id number] Closed 11/03/2021 11/03/2022 1 1 Reason for Visit * Procedure (Routine) - Closed Specialty Diagnoses / Procedures Referred By Contac t Referred To Contact Diagnoses Essential hypertension BMI 60.0-69.9, adult (HCC) Nasal congestion SOB (shortness of breath) on exertion Family history of asthma Procedures BRONCHIAL CHALLENGE WITH METHACHOLINE Reena Pollock APNP-CNP [address] [facility] 2L DIV OF PULMONARY/[place] [address] [facility] Pft [address] [place] [address] Referral ID Status Reason Start Date Expiration Date Visits Re quested Visits Authorized [id number] Closed 11/03/2021 11/03/2022 1 1 Encounter Details Date Type Department Care Team (Latest Contact Info) Description 12/17/2021 1:08 PM CDT - 12/17/2021 11:59 PM CDT Hospital Encounter [facility] PFT [address] [place] [phone] Reena Pollock APNP-CNP [address] [facility] 2L DIV OF PULMONARY/[place] [address] Discharge Disposition: Home or Self Care Social [...] 04/27/2022 vitamin D, ergocalciferol, (DRISDOL) 1.25 MG (48178 UT) capsuleIndications:Vit gudino D Deficiency Take 1 [...] CHALLENGE WITH METHACHOLINE (12/17/2021 1:07 PM CDT) [facility] - 12/17/2021 1:07 PM CDT [facility] DEPARTMENT OF PULMONARY, CRITICAL CARE, [...] of Pulmonary, Critical Care and Sleep Medicine [facility] I have personally reviewed pulmonary function test data and finding. I concur with fellow's note. Kasandra Denny MD Narrative [facility] - 12/17/2021 1:07 PM CDT Yohannes Sheffield MD ? 12/20/2021 ??8:58 AM Reena Pollock APNP-SOW MANAGER PFT [facility]ACY HIC[facility] Organization Address City/State/ZIP Co de Phone Number [facility] [address] documented in this encounter Visit Diagnoses Diagnosis Essential hypertension BMI 60.0-69.9, adult (HCC) Body Mass Index 60.0-69.9, adult Nasal congestion Other diseases of nasal cavity and sinuses SOB (shortness of breath) on exertion Shortness of breath Family history of asthma documented in this encounter Care Teams Cattle Care Worker Relationship Specialty Start Date End Date Jonelle Elam MD [address] [place] [address] [place] [address] PCP - General Family Medicine 10/24/18 Manju Rainey DO [address] [place] [address] Bariatrics 08/11/20 documented as of this encounter
--- OUTSIDE RECORDS SUMMARY | 2024-04-14 20:10 | XMS_ITS | Encounter Summary ---
Author Organization [facility] Address [address] [place] [address] Care Team Providers Care Exhaust Machine Operator Name Role Phone Jonelle Elam MD Primary Care Provider [phone] Manju Rainey DO Unavailable [phone] Encounter Details Date Type Department Care Team (Late st Contact Info) Description 12/31/2021 Orders Only [facility] [address] [place] [address] Reena Pollock, APNP-SLITTER OPERATOR [address] [facility] 2L DIV OF PULMONARY/[place] [address] Social History Tobacco Use Types Packs/Day Years [...] on filedocumented in this encounter Care Teams Exhaust Machine Operator Relationship Specialty Start Date End Date Jonelle Elam MD [address] [place] [address] [place] [address] PCP - General Family Medicine 10/24/18 Manju Rainey DO [address] [place] [address] Bariatrics 08/11/20 documented as of this encounter
--- OUTSIDE RECORDS SUMMARY | 2024-04-14 20:10 | XMS_ITS | Encounter Summary ---
Author Organization [facility] Address [address] [place] [address] Care Team Providers Care Processing Tech Name Role Phone Jonelle Elam MD Primary Care Provider Manju Rainey DO Unavailable Encounter Details Date Type Department Care Team (Late st Contact Info) Description 11/03/2021 Orders Only [facility] [address] [place] [address] Reena Pollock, APNP-CUSTOMER SERVICES COORDINATOR [address] [facility] 2L DIV OF PULMONARY/[place] [address] MOOSE (obstructive sleep apnea); Essential hypertension; BMI [...] disorder documented in this encounter Care Teams Processing Tech Relationship Specialty Start Date End Date Jonelle Elam MD [address] [place] [address] [place] [address] PCP - General Family Medicine 10/24/18 Manju Rainey DO [address] [place] [address] Bariatrics 08/11/20 documented as of this encounter
--- OUTSIDE RECORDS SUMMARY | 2024-04-14 20:10 | XMS_ITS | Encounter Summary ---
Author Organization [facility] Address [address] [place] [address] Care Team Providers Care Carpentry Teacher Name Role Phone Jonelle Elam MD Primary Care Provider Manju Rainey DO Unavailable [phone] Skylar Canales PA-C Unavailable [phone] Encounter Details Date Type Department Care Team (Latest Contact Info) Description 04/22/2022 9:05 AM BOTTOM LIQUOR ATTENDANT - 04/22/2022 11:59 PM [facility] Hospital Encounter [facility] LAB OP DRAW STATION [address] [place] [phone] Discharge Disposition: Home or Self Care Social [...] Coronavirus/COVID-19? No / Unsure 04/22/2022 9:05 AM BOTTOM LIQUOR ATTENDANT documented as of this encounter Medications at [...] on filedocumented in this encounter Care Teams Carpentry Teacher Relationship Specialty Start Date End Date Jonelle Elam MD [address] [place] [address] PCP - General Family Medicine 10/24/18 Manju Rainey DO [address] [place] [address] Bariatrics 08/11/20 Skylar Canales PA-C [address] [facility] 3L [place] [phone] Physician Correctional Manager Nephrology 03/04/22 documented as of this encounter
--- OUTSIDE RECORDS SUMMARY | 2024-04-14 20:10 | XMS_ITS | Encounter Summary ---
Author Organization [facility] Address [address] [place] [address] Care Team Providers Care Folder Gluer Operator Name Role Phone Jonelle Elam MD Primary Care Provider [phone] Manju Rainey DO Unavailable [phone] Skylar Canales PA-C Unavailable [phone] Reason for Visit * Reason Comments Refill Request Encounter Details Date Type Department Care Team (Late st Contact Info) Description 01/29/2023 Refill [facility] - Nephrology [address] [place] [address], [place] [address] Skylar Canales PA-C [address] [place] [address] [address] [place] [address] Refill Request Social History Tobacco Use Types [...] on filedocumented in this encounter Care Teams Folder Gluer Operator Relationship Specialty Start Date End Date Jonelle Elam MD [address] [place] [address] PCP - General Family Medicine 10/24/18 Manju Rainey DO [address] [place] [address] Bariatrics 08/11/20 Skylar Canales PA-C [address] [facility] 3[facility] [address] Physician Carpenter And Joiner Nephrology 03/04/22 documented as of this encounter
--- OUTSIDE RECORDS SUMMARY | 2024-04-14 20:10 | XMS_ITS | Encounter Summary ---
Author Organization [facility] Address [address] [place] [address] Care Team Providers Care Manufacturing Cost Estimator Name Role Phone Jonelle Elam MD Primary Care Provider [phone] Manju Rainey DO Unavailable [phone] Skylar Canales-Desirae Unavailable [phone] Reason for Visit * Reason Comments Liver Problem Encounter Details Date Type Department Care Team (Late st Contact Info) Description 05/12/2022 3:00 PM SENIOR HARDWARE DESIGN ENGINEER Office Visit [facility] - GI [address] [facility], [place] [address] Linda Gurrola, PLASTIC BATTERY ASSEMBLER-AIR TRAFFIC COORDINATOR [address] [place] [place] [address] 3F [place] [address] NAFLD (nonalcoholic fatty liver disease) (Primary Dx); [...] Coronavirus/COVID-19? No / Unsure 04/22/2022 9:05 AM SENIOR HARDWARE DESIGN ENGINEER documented as of this encounter Last Filed Vital Signs Vital Sign Reading Time Taken Comments Blood Pressure 129/65 05/12/2022 2:53 PM SENIOR HARDWARE DESIGN ENGINEER Pulse 87 05/12/2022 2:53 PM SENIOR HARDWARE DESIGN ENGINEER Temperature 36.3 ??C (97.4 ??F) 05/12/2022 2:53 PM CS T Respiratory Rate 18 05/12/2022 2:53 PM SENIOR HARDWARE DESIGN ENGINEER Oxygen Saturation 100% 05/12/2022 2:53 PM SENIOR HARDWARE DESIGN ENGINEER Inhaled Oxygen Concentration - - Weight 153.8 kg (339 lb) 05/12/2022 2:53 PM SENIOR HARDWARE DESIGN ENGINEER Height - - Body Mass Index 62 03/23/2022 9:25 AM SENIOR HARDWARE DESIGN ENGINEER documented in this encounter Progress Notes * Linda Gurrola, PLASTIC BATTERY ASSEMBLER-AIR TRAFFIC COORDINATOR - 05/12/2022 3:09 PM CST I saw Ms. Campbell in [facility] today for follow up visit regarding: Past [...] ). 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 She is monitoring this through [employer] jaqui. She is also walking some with goal of 10k steps per day. She has a gym membership but hasn't been in a while. She is working a lot, working from home. She reports intermittent chest pain over the past 1-2 months. Her blood pressure has been elevated as well. No headache, shortness of breath, weakness, blurry vision. She has appointment with her enrolled nurse in January. Liver cancer conference 04/27/22 Discussion: [...] in house Pets none Hobby reading-usually on [employer] jaqui Review of systems: Chest pain: none. [...] one year. Copy to: Jonelle Elam MD [address] [place] [address] [place] [address] [facility] Division of Gastroenterology and Hepatology Collaborating physician: Dr. Farhad Mesa May 16, 2022 Orders Placed This Encounter ??? US ABDOMEN LIMITED ??? CBC WITH DIFFERENTIAL ??? COMPREHENSIVE METABOLIC PANEL OR HARDWARE DESIGN ENGINEER documented in this encounter Plan of Treatment [...] (ABNORMAL) COMPREHENSIVE METABOLIC PANEL (05/12/2022 4:33 PM [facility]) BUN 9 7 - 26 mg/dL 05/12/2022 5:18 PM [facility] Creatinine 0.57 0.56 - 0.96 mg/dL 05/12/2022 5:18 PM [facility] Sodium 135(L) 136 - 145 mmol/L 05/12/2022 5:18 PM [facility] Potassium 3.8 3.5 - 4.5 mmol/L 05/12/2022 5:18 PM [facility] Chloride 104 98 - 107 mmol/L 05/12/2022 5:18 PM [facility] CO2 25 22 - 29 mmol/L 05/12/2022 5:18 PM [facility] Glucose 98 70 - 115 mg/dL 05/12/2022 5:18 PM [facility] Calcium 9.5 8.4 - 10.2 mg/dL 05/12/2022 5:18 PM [facility] Protein Total 7.3 6.0 - 8.3 g/dL 05/12/2022 5:18 PM [facility] Albumin 3.9 3.4 - 5.0 g/dL 05/12/2022 5:18 PM [facility] Bilirubin Total 0.7 0.2 - 1.2 mg/dL 05/12/2022 5:18 PM [facility] Alkaline Phosphatase 63 40 - 150 U/L 05/12/2022 5:18 PM [facility] ALT 27 5 - 55 U/L 05/12/2022 5:18 PM [facility] AST 20 5 - 34 U/L 05/12/2022 5:18 PM [facility] Anion Gap 10 8 - 18 05/12/2022 5:18 PM [facility] BUN/Creatinine Ratio 16 7 - 23 05/12/2022 5:18 PM [facility] Osmolality Calculated 279 270 - 300 mOsm/kg 05/12/2022 5:18 PM [facility] Albumin/Globulin Ratio 1.1 1.1 - 2.3 05/12/2022 5:18 PM [facility] eGFR by CKD-EPI >90 >=90 mL/min/1.7 3 m2 05/12/2022 5:18 PM [facility] Blood BLOOD SPECIMEN / Unknown Lab Venipuncture / Unknown 05/12/2022 4:33 PM SENIOR HARDWARE DESIGN ENGINEER 05/12/2022 4:48 PM SENIOR HARDWARE DESIGN ENGINEER Linda Gurrola PLASTIC BATTERY ASSEMBLER-AIR TRAFFIC COORDINATOR LAB - CHEMI STRY ORDERABLES [facility] [address] [place] [address], [facility] [phone] * (ABNORMAL) CBC WITH DIFFERENTIAL (05/12/2022 4:33 PM SENIOR HARDWARE DESIGN ENGINEER) WBC 9.0 3.5 - 10.5 10? 3 /uL 05/12/2022 4:56 PM [facility] RBC 4.24 3.80 - 5.20 10? 6 /uL 05/12/2022 4:56 PM [facility] Hemoglobin 11.6(L) 12.0 - 15.6 g/dL 05/12/2022 4:56 PM [facility] Hematocrit 34.4(L) 35.0 - 45.0 % 05/12/2022 4:56 PM [facility] MCV 81.1 80.7 - 98.3 fL 05/12/2022 4:56 PM [facility] MCH 27.4 26.7 - 34.0 pg 05/12/2022 4:56 PM [facility] MCHC 33.7 30.8 - 35.9 g/dL 05/12/2022 4:56 PM [facility] RDW-SD 38.5 36.0 - 50.0 fL 05/12/2022 4:56 PM [facility] RDW-CV 13.2 11.2 - 14.8 % 05/12/2022 4:56 PM [facility] Platelet Count 341 150 - 400 10? 3 /uL 05/12/2022 4:56 PM [facility] MPV 9.3(L) 9.4 - 12.9 fL 05/12/2022 4:56 PM [facility] nRBC Absolute 0.00 0 10? 3 /uL 05/12/2022 4:56 PM [facility] nRBC Auto 0.0 0 /100 WBC 05/12/2022 4:56 PM [facility] Neutrophils % 63.0 35.0 - 70.0 % 05/12/2022 4:56 PM [facility] Lymphocytes % 25.6 20.0 - 43.0 % 05/12/2022 4:56 PM [facility] Monocytes % 7.0 5.0 - 13.0 % 05/12/2022 4:56 PM [facility] Eosinophils % 3.1 0.0 - 6.0 % 05/12/2022 4:56 PM [facility] Basophil % 0.7 0.0 - 2.0 % 05/12/2022 4:56 PM [facility] Neutrophils Absolute 5.65 1.60 - 7.00 10? 3 /uL 05/12/2022 4:56 PM [facility] Lymphocyte Absolute 2.29 1.10 - 3.90 10? 3 /uL 05/12/2022 4:56 PM [facility] Monocytes Absolute 0.63 0.26 - 1.07 10? 3 /uL 05/12/2022 4:56 PM [facility] Eosinophils Absolute 0.28 0.00 - 0.47 10? 3 /uL 05/12/2022 4:56 PM [facility] Basophils Absolute 0.06 0.00 - 0.08 10? 3 /uL 05/12/2022 4:56 PM [facility] Immature Granulocytes % 0.6 0.0 - 1.0 % 05/12/2022 4:56 PM [facility] Immature Granulocytes Absolute 0.05 05/12/2022 4:56 PM [facility] Blood BLOOD SPECIMEN / Unknown Lab Venipuncture / Unknown 05/12/2022 4:33 PM SENIOR HARDWARE DESIGN ENGINEER 05/12/2022 4:48 PM SENIOR HARDWARE DESIGN ENGINEER Linda Gurrola PLASTIC BATTERY ASSEMBLER-AIR TRAFFIC COORDINATOR LAB - HEMAT OLOGY ORDERABLES [facility] [address] [place] [address], [facility] [phone] documented in this encounter Visit Diagnoses Diagnosis NAFLD (nonalcoholic fatty liver disease)- Primary Other chronic nonalcoholic liver disease Hepatic adenoma Benign neoplasm of liver and biliary passages documented in this encounter Care Teams Manufacturing Cost Estimator Relationship Specialty Start Date End Date Jonelle Elam MD [address] [place] [address] [place] [address] PCP - General Family Medicine 10/24/18 Manju Rainey DO [address] [place] [address] Bariatrics 08/11/20 Skylar Canales PA-C [address] [facility] 3L [place] [address] Physician Director Of Career Resources Nephrology 03/04/22 documented as of this encounter
--- OUTSIDE RECORDS SUMMARY | 2024-04-14 20:10 | XMS_ITS | Encounter Summary ---
Author Organization [facility] Address [address] [place] [address] Care Team Providers Care Frame Fixer Name Role Phone Jonelle Elam MD Primary Care Provider [phone] Manju Rainey DO Unavailable [phone] Encounter Details Date Type Department Care [...] on filedocumented in this encounter Care Teams Frame Fixer Relationship Specialty Start Date End Date Jonelle Elam MD [address] [place] [address] PCP - General Family Medicine 10/24/18 Manju Rainey DO [address] [place] [address] Bariatrics 08/11/20 documented as of this encounter
--- OUTSIDE RECORDS SUMMARY | 2024-04-14 20:10 | XMS_ITS | Encounter Summary ---
Author Organization [facility] Address [address] [place] [address] Care Team Providers Care Boner Meat Name Role Phone Jonelle Elam MD Primary Care Provider [phone] Manju Rainey DO Unavailable [phone] Skylar Canales PA-C Unavailable [phone] Reason for Visit * Reason Comments Follow-up Encounter Details Date Type Department Care Team (Late st Contact Info) Description 07/20/2022 10:20 AM CDT Office Visit [facility] Weight Management Services [address] [facility] [address] [place] [address] Angela Muñ[place] [address] [facility] [address] [place] [address] NAFLD (nonalcoholic fatty liver disease) [...] once daily as needed for Migraine 8 [id number] ??? spironolactone (Aldactone) 25 MG tablet Take [...] index (BMI)of 60.0 to 69.9 in adult ([facility]) E66.01 Z68.44 3. Prediabetes R73.03 4. Essential hypertension I10 Plan to check a1c next visit - Pharmaceutical interventions: ___x__Pt had SE to Metformin so discontinued. Insurance will not cover glp agonists. - The patient is agreeable. Plan for ongoing weight management (marked with X): ___x__ Operator Engineer care is recommended (1500 calories/day diet to [...] hypertension documented in this encounter Care Teams Boner Meat Relationship Specialty Start Date End Date Jonelle Elam MD [address] [place] [address] PCP - General Family Medicine 10/24/18 Manju Rainey DO [address] [place] [address] Bariatrics 08/11/20 Skylar Canales PA-C [address] [address] Physician Car Spotter Nephrology 03/04/22 documented as of this encounter
--- OUTSIDE RECORDS SUMMARY | 2024-04-14 20:10 | XMS_ITS | Encounter Summary ---
Author Organization [facility] Address [address] [place] [address] Care Team Providers Care Cooker Operator Name Role Phone Jonelle Elam MD Primary Care Provider [phone] Manju Rainey DO Unavailable [phone] Skylar Canales-C Unavailable [phone] Reason for Visit * Reason Comments Follow-up Encounter Details Date Type Department Care Team (Late st Contact Info) Description 05/06/2022 Telephone [facility] - [address] [place] [address] [place] [address] Gely Gallegos RN Follow-up Social [...] Coronavirus/COVID-19? No / Unsure 04/22/2022 9:05 AM DATA OPERATIONS LEADER documented as of this encounter Plan of [...] disease documented in this encounter Care Teams Cooker Operator Relationship Specialty Start Date End Date Jonelle Elam MD [address] [place] [address] [place] [address] PCP - General Family Medicine 10/24/18 Manju Rainey DO [address] [place] [address] Bariatrics 08/11/20 Skylar Canales PA-C [address] [facility] 3[facility] [place] [address] Physician Atlassian Administrator Nephrology 03/04/22 documented as of this encounter
--- OUTSIDE RECORDS SUMMARY | 2024-04-14 20:10 | XMS_ITS | Encounter Summary ---
Author Organization [facility] Address [address] [place] [address] Care Team Providers Care Typewriter Mechanic Name Role Phone Jonelle Elam MD Primary Care Provider Manju Rainey DO Unavailable [phone] Skylar Canales-Desirae Unavailable [phone] Reason for Visit * Reason Onset Date Comments Medication Prior Auth Request 01/03/2023 Encounter Details Date Type Department Care Team (Late st Contact Info) Description 01/03/2023 Telephone [facility] - Neurology [address] [place] [address], [place] [address] Jeff Bird, AKUA-PROGRAM FACILITATOR [address] [place] [address] [place] [address] Medication Prior Auth Request Social History Tobacco [...] initiated with [employer] via covermymeds for [facility]. Included last visit note dated 04/27/2022. Will await a response. DOWD: [facility] Approved as below: Approvedtoday CaseId:[id number];Status:Approved;Review Type:Prior Auth;Coverage Start Date:01/03/2023;Coverage End Date:01/03/2024; documented [...] on filedocumented in this encounter Care Teams Typewriter Mechanic Relationship Specialty Start Date End Date Jonelle Elam MD [address] [place] [address] [place] [address] PCP - General Family Medicine 10/24/18 Manju Rainey DO [address] [place] [address] Bariatrics 08/11/20 Skylar Canales PA-C [address] [facility] 3L [place] [address] Physician Inside Sales Consultant Nephrology 03/04/22 documented as of this encounter
--- OUTSIDE RECORDS SUMMARY | 2024-04-14 20:10 | XMS_ITS | Encounter Summary ---
Author Organization [facility] Address [address] [place] [address] Care Team Providers Care Intensive Care Medicine Specialist Name Role Phone Jonelle Elam MD Primary Care Provider [phone] Manju Rainey DO Unavailable [phone] Encounter Details Date Type Department Care Team (Late st Contact Info) Description 12/25/2021 Orders Only [facility] [address] [place] [address] Reena Pollock, APNP-BIOMEDICAL ELECTRONICS TECHNICIAN [address] [facility] 2L DIV OF PULMONARY/[place] [address] Social History Tobacco Use Types Packs/Day Years [...] 0 kU/L [facility] INSURANCE BILL Allergen Cockroach Malaysian <0.10 Class 0 kU/L [facility] INSURANCE BILL Allergen Penicillin chrysogen <0.10 Class 0 kU/L [facility] INSURANCE BILL Allergen C Herbarum <0.10 Class 0 kU/L [facility] INSURANCE BILL Allergen Aspergillus fumigatus <0.10 Class 0 kU/L [facility] INSURANCE BILL Allergen A Tenuis <0.10 Class 0 kU/L [facility] INSURANCE BILL Allergen Maple <0.10 Class 0 kU/L [facility] INSURANCE BILL Allergen Mountain Tippecanoe <0.10 Class 0 kU/L [facility] INSURANCE BILL Allergen Quentin <0.10 Class 0 kU/L [facility] INSURANCE BILL Allergen Elm <0.10 Class 0 kU/L [facility] INSURANCE BILL Allergen Maple [facility] [place] <0.10 Class 0 kU/L [facility] INSURANCE BILL Allergen Irwin Tree <0.10 Class 0 kU/L [facility] INSURANCE BILL Allergen White Eduardo <0.10 Class 0 kU/L [facility] INSURANCE BILL Allergen Birmingham <0.10 Class 0 kU/L [facility] INSURANCE BILL Allergen Pecan Essex <0.10 Class 0 kU/L [facility] INSURANCE BILL Allergen White [place] <0.10 Class 0 kU/L [facility] INSURANCE BILL Allergen Short/Common Ragweed <0.10 Class 0 kU/L [facility] INSURANCE BILL Allergen Moroccan Thistle <0.10 Class 0 kU/L [facility] INSURANCE BILL Allergen Rough Pigweed <0.10 Class 0 kU/L [facility] INSURANCE BILL Allergen Rough Blackburn Elder <0.10 Class 0 kU/L [facility] INSURANCE BILL Allergen Mouse Urine <0.10 Class 0 kU/L [facility] INSURANCE BILL 12/25/2021 10:4 4 AM CDT 12/25/2021 Narrative Resulting Agency Comment Lab Testing performed at: [facility] ??[facility] [id number] Reena TERRELL-BIOMEDICAL ELECTRONICS TECHNICIAN LAB - CH EMISTRY ORDERABLES [facility] INSURANCE BILL [address] [place] [address] documented in this encounter Visit Diagnoses Not on filedocumented in this encounter Care Teams Intensive Care Medicine Specialist Relationship Specialty Start Date End Date Jonelle Elam MD [address] [place] [address] PCP - General Family Medicine 10/24/18 Manju Rainey DO [address] [place] [address] Bariatrics 08/11/20 documented as of this encounter
--- OUTSIDE RECORDS SUMMARY | 2024-04-14 20:10 | XMS_ITS | Encounter Summary ---
Author Organization [facility] Address [address] [place] [address] Care Team Providers Care Chart Computer Name Role Phone Jonelle Elam MD Primary Care Provider [phone] Manju Rainey DO Unavailable Reason for Visit * Reason Onset Date Comments Follow-up 01/03/2022 Encounter Details Date Type Department Care Team (Late st Contact Info) Description 01/03/2022 Telephone [facility] [address] [facility], [place] [address] Jeff Bird APRN-JOSETTE [address] [place] [address] [place] [address] Follow-up Social History Tobacco Use Types Packs/Day [...] on filedocumented in this encounter Care Teams Chart Computer Relationship Specialty Start Date End Date Jonelle Elam MD [address] [place] [address] [place] [address] PCP - General Family Medicine 10/24/18 Manju Rainey DO [address] [place] [address] Bariatrics 08/11/20 documented as of this encounter
--- OUTSIDE RECORDS SUMMARY | 2024-04-14 20:10 | XMS_ITS | Encounter Summary ---
Author Organization [facility] Address [address] [place] [address] Care Team Providers Care Director Of Program Management Name Role Phone Jonelle Elam MD Primary Care Provider [phone] Manju Rainey DO Unavailable [phone] Reason for Visit * Reason Onset Date Comments Medication Prior Auth Request 12/29/2021 Encounter Details Date Type Department Care Team (Late st Contact Info) Description 12/29/2021 Telephone [facility] [address] [facility], [place] [address] Jeff Bird APRN-JOSETTE [address] [place] [address] [place] [address] Medication Prior Auth Request Social History Tobacco [...] CGRPs: ajovy and aimovig Will forward to CHANNEL MARKETING MANAGER Pelon for her review and recommendations. documented [...] on filedocumented in this encounter Care Teams Director Of Program Management Relationship Specialty Start Date End Date Jonelle Elam MD [address] [place] [address] [place] [address] PCP - General Family Medicine 10/24/18 Manju Rainey DO [address] [place] [address] Bariatrics 08/11/20 documented as of this encounter
--- OUTSIDE RECORDS SUMMARY | 2024-04-14 20:10 | XMS_ITS | Encounter Summary ---
Author Organization [facility] Address [address] [place] [address] Care Team Providers Care Locomotive Crane Operator Helper Name Role Phone Jonelle Elam MD Primary Care Provider Manju Rainey DO Unavailable [phone] Skylar Canales-C Unavailable [phone] Reason for Visit * Reason Comments Refill Request Encounter Details Date Type Department Care Team (Late st Contact Info) Description 05/23/2022 Refill [facility] [address] [place] [address] Reena Pollock, APNP-EMERGENCY DEPARTMENT MANAGER [address] OF PULMONARY/[place] [address] Refill Request Social History Tobacco Use Types [...] on filedocumented in this encounter Care Teams Locomotive Crane Operator Helper Relationship Specialty Start Date End Date Jonelle Elam MD [address] [place] [address] [place] [address] PCP - General Family Medicine 10/24/18 Manju Rainey DO [address] [place] [address] Bariatrics 08/11/20 Skylar Canales PA-C [address] [facility] 3[facility] [place] [address] Physician Insurance Verifier Nephrology 03/04/22 documented as of this encounter
--- OUTSIDE RECORDS SUMMARY | 2024-04-14 20:10 | XMS_ITS | Encounter Summary ---
Author Organization [facility] Address [address] [place] [address] Care Team Providers Care Handicapped Teacher Name Role Phone Jonelle Elam MD Primary Care Provider Manju Rainey DO Unavailable [phone] Skylar Canales-C Unavailable Encounter Details Date Type Department Care Team (Late st Contact Info) Description 11/09/2022 Orders Only [facility] - Neurology [address] [place] [address], [place] [address] Jeff Bird APRN-GUEST SERVICE TEAM LEADER [address] [place] [address] [place] [phone] Papilledema associated with retinal disorder Social History [...] Primary documented in this encounter Care Teams Handicapped Teacher Relationship Specialty Start Date End Date Jonelle Elam MD [address] [place] [address] [place] [address] PCP - General Family Medicine 10/24/18 Manju Rainey DO [address] [place] [address] Bariatrics 08/11/20 Skylar Canales PA-C [address] [facility] 3L [facility] [place] [address] Physician [place] Program Coordinator Nephrology 03/04/22 documented as of this encounter
--- OUTSIDE RECORDS SUMMARY | 2024-04-14 20:10 | XMS_ITS | Encounter Summary ---
Author Organization [facility] Address [address] [place] [address] Care Team Providers Care Speech Language Pathologist Travel Name Role Phone Jonelle Elam MD Primary Care Provider Manju Rainey DO Unavailable [phone] Encounter Details Date Type Department Care [...] on filedocumented in this encounter Care Teams Speech Language Pathologist Travel Relationship Specialty Start Date End Date Jonelle Elam MD [address] [place] [address] PCP - General Family Medicine 10/24/18 Manju Rainey DO [address] [place] [address] Bariatrics 08/11/20 documented as of this encounter
--- OUTSIDE RECORDS SUMMARY | 2024-04-14 20:10 | XMS_ITS | Clinical Summary ---
Author Organization [facility] Address [address] [facility] [place] [address] Care Team Providers Care Wood Handler Name Role Phone Jonelle Elam MD Primary Care Provider [phone] Manju Rainey DO Unavailable [phone] Skylar Canales PA-C Unavailable [phone] Source Comments [facility],non-owned Affiliates and Associated Physician Practices is amultiple site organization consisting of ambulatory clinics and hospital sitesin [place], [place], [place] and [place]. This disclosure is being madepursuant to the Care Everywhere program and may not contain all information available regarding this patient. Last updated 17.[facility] Allergies Active Allergy Reactions Criticality Noted Date [...] by mouth once daily APPT NEEDED CALL [phone] X 1 TO SCHEDULE 90 tablet 01/30/2023 [...] due to NAEFD. Headaches have not worsened. [facility] Plan: 1. Reviewed headaches and if there is change to her current headache pattern, worsening, or persistent, she should be seen promptly for preeclampsia evaluation. 2. Start Riboflavin, increase fluid intake. Assessment & Plan (08/14/2019 4:27 PM CDT): Has not been able to merchandise pickup/receiving associate riboflavin from her pharmacy. Maternal Medicine recommendations: 1. encouraged to look for an [id number] vitamin-B complex Assessment & Plan (07/03/2019 12:54 PM CDT): Intermittent headaches. Maternal Medicine recommendations: 1. reminded that she has a prescription for riboflavin for headache prevention Assessment & Plan (06/05/2019 5:54 PM AWS ARCHITECT): May be related to poor vision. Maternal Medicine recommendations: 1. should maintain follow-up with open hearth helper 2. Riboflavin prescribed for headache prevention Cataracts, bilateral 01/02/2019 Overview (06/05/2019): Has artificial lens in left eye Assessment & Plan (06/05/2019 1:27 PM AWS ARCHITECT): Having decreased nighttime vision Maternal Medicine recommendations: 1. recommend follow-up with open hearth helper NAFLD (nonalcoholic fatty liver disease) 019 Overview [...] testing every trimester--to be ordered by primary manufactured buildings supervisor, please send copy of recent results. 2. Follow up with GI as recommended in fall for repeat MRI and fibroscan. ?? Assessment & Plan (08/14/2019 4:26 PM CDT): Remains at risk for complications of related to pre-existing liver disease and suspected chronic hypertension. Maternal Medicine recommendations: 1. Serial liver function testing every trimester--to be ordered by primary manufactured buildings supervisor 2. please forward a copy of the glucose challenge test results Assessment & Plan (06/05/2019 5:50 PM AWS ARCHITECT): Unremarkable LFTs. Remains at risk for complications of related to pre-existing liver disease and suspected chronic hypertension. Maternal Medicine recommendations: 1. Serial liver function testing every trimester--to be ordered by primary manufactured buildings supervisor GERD (gastroesophageal reflux disease) 9 Lumbar herniated disc 04/03/2014 Assessment & Plan (08/28/2019 12:41 PM CDT): Remains bothersome with use of maternity support belt. Denies any falls. Has PT referral and has not made appointment. Swimming with some relief. [facility] Plan: 1. Again encouraged to reach [...] belt Assessment & Plan (06/05/2019 5:49 PM AWS ARCHITECT): Having significant pain at night after exercise [...] fiber Assessment & Plan (06/05/2019 5:41 PM AWS ARCHITECT): Maternal Medicine recommendations: 1. nutrition counseling--initiated today 2. Encouraged to increase dietary fiber Sleep apnea Overview (06/05/2019): Has not had a sleep study Assessment & Plan (08/14/2019 4:25 PM CDT): Previously instructed to have evaluation for sleep apnea Assessment & Plan (06/05/2019 5:49 PM AWS ARCHITECT): instructed to have evaluation for sleep apnea [...] elizabeth Non-reac tive 01/02/2019 1:33 PM CDT [facility] Comment: Hepatitis C Antibody [...] Organization Address City/State/ZIP Co de Phone Number [facility] [address] [phone] from Last 3 Months or Most Recently Relevant to Health Maintenance Care Teams Wood Handler Relationship Specialty Start Date End Date Jonelle Elam MD [address] [place] [address] [place] [address] PCP - General Family Medicine 10/24/18 Manju Rainey DO [address] [place] [address] Bariatrics 08/11/20 Skylar Canales PA-C [address] [place] [address] Physician Drawstring Knotter Nephrology 03/04/22
--- OUTSIDE RECORDS SUMMARY | 2024-04-14 20:10 | XMS_ITS | Encounter Summary ---
Author Organization [facility] Address [address] [place] [address] Care Team Providers Care Wood Carver Name Role Phone Jonelle Elam MD Primary Care Provider Manju Rainey DO Unavailable [phone] Skylar Canales PA-C Unavailable [phone] Reason for Visit * Reason Comments Hypertension Follow-up Encounter Details Date Type Department Care Team (Late st Contact Info) Description 08/19/2022 9:00 AM CDT Office Visit [facility] - Nephrology [address] [place] [address], [place] [address] Skylar Canales PA-C [address] [place] [address] [address] [place] [address] Essential hypertension (Primary Dx); BMI 60.0-69.9, adult [...] identified on imaging and pt f/u with [facility]ER, and cyst has since resolved. Patient has [...] breath, JOLEEN. Pt also reports seeing an creative assistant with concern for papilledema, IIH and has [...] for the 08/19/22 encounter (Office Visit) with [facility]YP[facility]ENSION Medication Sig ??? amLODIPine (Norvasc) [...] 1. Essential hypertension 2. BMI 60.0-69.9, adult ([facility]) 3. Peripheral arterial disease ([facility]) Assessment & Plan: -- Blood Pressure: Discussed [...] ERYTHROCYTE SEDIMENTATION RATE [facility] INSURANCE BILL [id number] [facility] [id number] JIMMY Zavala PA-C Internal Medicine, Div of [...] On track( 021 11:18 AM CDT) No Gabreilla Moon RN Note: Expected end date: ongoing Interventions: Your nurse will assess your risk for falls/injury each visit documented as of this encounter Visit Diagnoses Diagnosis Essential hypertension- Primary BMI 60.0-69.9, adult (HCC) Body Mass Index 60.0-69.9, adult Peripheral arterial disease (HCC) Unspecified disorders of arteries and arterioles documented in this encounter Care Teams Wood Carver Relationship Specialty Start Date End Date Jonelle Elam MD [address] [place] [address] ROGELIO Reinoso [address] PCP - General Family Medicine 10/24/18 Manju Rainey DO [address] [place] [address] Bariatrics 08/11/20 Skylar Canales PA-C [address] [facility] [address] [place] [id number] Physician Handstitching Machine Armhole Feller Nephrology 03/04/22 documented as of this encounter
--- OUTSIDE RECORDS SUMMARY | 2024-04-14 20:11 | XMS_ITS | Encounter Summary ---
Author Organization [facility] Address [address] [place] [address] Care Team Providers Care Supervisor Grips Name Role Phone Jonelle Elam MD Primary Care Provider Manju Rainey DO Unavailable [phone] Reason for Referral * Radiology Services (Routine) - Closed Specialty Diagnoses / Procedures Referred By Ritika bonner Referred To Contact MRI Diagnoses Liver lesion Focal nodular hyperplasia of liver NAFLD (nonalcoholic fatty liver disease) Morbid obesity (HCC) Procedures MRI ABDOMEN WWO CONTRAST MRI ABDOMEN WWO CONTRAST Maribel Kitchen MD [address] [place] [address] [facility] [address] [place] [address] Referral ID Status Reason Start Date Expiration Date Visits Re quested Visits Authorized [id number] Closed 04/15/2021 07/13/2021 1 1 RCYLES FINAL INSPECTOR Reason for Visit * Radiology Services (Routine) - Closed Specialty Diagnoses / Procedures Referred By Ritika bonner Referred To Contact MRI Diagnoses Liver lesion Focal nodular hyperplasia of liver NAFLD (nonalcoholic fatty liver disease) Morbid obesity (HCC) Procedures MRI ABDOMEN WWO CONTRAST MRI ABDOMEN WWO CONTRAST Maribel Kitchen MD [address] [place] [address] [facility] Mri [address] [place] [address] Referral ID Status Reason Start Date Expiration Date Visits Re quested Visits Authorized [id number] Closed 04/15/2021 07/13/2021 1 1 Encounter Details Date Type Department Care Team (Late st Contact Info) Description 04/27/2021 10:30 AM MOTORCYLES FINAL INSPECTOR - 04/27/2021 11:59 PM MOTORCYLES FINAL INSPECTOR Hospital Encounter [facility] MRI [address] [place] [address] Maribel Kitchen MD [address] [place] [address] Discharge Disposition: Home or Self [...] Coronavirus / COVID-19? Yes 04/27/2021 10:37 AM MOTORCYLES FINAL INSPECTOR documented as of this encounter Medications at [...] Take by intrauterine route. 11/03/2021 Probiotic Product (Insmed) capsule Take 1 (one) capsule by mouth once daily 30 capsule 02/17/2021 07/01/2021 topiramate (TOPAMAX) 100 MG tablet Take 100 mg by mouth 2 times daily 11/03/2021 vitamin D, ergocalciferol, (DRISDOL) 1.25 MG (89359 UT) capsuleIndications:Vi tamin D Deficiency Take 1 [...] ABDOMEN WWO CONTRAST Routine 04/27/2021 11:43 AM MOTORCYLES FINAL INSPECTOR Liver lesion Focal nodular hyperplasia of liver NAFLD (nonalcoholic fatty liver disease) Morbid obesity (HCC) CREATININE - POCT INTERFACED Routine 04/27/2021 11:02 AM MOTORCYLES FINAL INSPECTOR documented in this encounter Results * MRI ABDOMEN WWO CONTRAST (04/27/2021 11:43 AM MOTORCYLES FINAL INSPECTOR) Anatomical Region Laterality Modality Abdomen Magnetic Resonan ce 04/27/2021 1:19 PM MOTORCYLES FINAL INSPECTOR Impressions 04/27/2021 3:19 PM MOTORCYLES FINAL INSPECTOR Impression: 1.Three observations in the right hepatic [...] gallbladder. Report dictated by Karrie Hall MD (rn residential). I, Dr. KENNY COVARRUBIAS M.D. have personally reviewed and interpreted this examination/study. This report was electronically signed by KENNY COVARRUBIAS M.D. ??on 04/27/2021 3:19 PM . Narrative 04/27/2021 3:19 PM MOTORCYLES FINAL INSPECTOR Procedure Information: DATE: 04/27/2021 11:43 AM EXAMINATION: [...] gallbladder. Report dictated by Karrie Hall MD (rn residential). I, Dr. KENNY COVARRUBIAS M.D. have personally reviewed and interpreted this examination/study. This report was electronically signed by KENNY COVARRUBIAS M.D. on04/27/2021 3:19 PM . Maribel Kitchen MD MR ORDERABLES * CREATININE - POCT INTERFACED (04/27/2021 11:02 AM MOTORCYLES FINAL INSPECTOR) Creatinine POCT 0.81 0.30 - 1.30 mg/dL 04/27/2021 11:07 AM MOTORCYLES FINAL INSPECTOR [facility] eGFR >60 >60 mL/min/1.7 3 m2 04/27/2021 11:07 AM MOTORCYLES FINAL INSPECTOR [facility] Blood BLOOD SPECIMEN / Unknown 04/27/2021 11:02 AM MOTORCYLES FINAL INSPECTOR 04/27/2021 11:07 AM MOTORCYLES FINAL INSPECTOR Maribel Kitchen MD LAB - POINT OF CARE ORDERABLES [facility] [address] [place] [address], [facility] [phone] documented in this encounter Visit Diagnoses Diagnosis [...] $ Given - Contrast 04/27/2021 11:25 AM MOTORCYLES FINAL INSPECTOR 10 mL documented in this encounter Care Teams Supervisor Grips Relationship Specialty Start Date End Date Jonelle Elam MD [address] [place] [address] [place] [address] PCP - General Family Medicine 10/24/18 Manju Rainey DO [address] [place] [address] Bariatrics 08/11/20 documented as of this encounter
--- OUTSIDE RECORDS SUMMARY | 2024-04-14 20:11 | XMS_ITS | Encounter Summary ---
Author Organization [facility] Address [address] [facility] [place] [address] Care Team Providers Care Decontamination Technician Name Role Phone Jonelle Elam MD Primary Care Provider [phone] Manju Rainey DO Unavailable [phone] Encounter Details Date Type Department Care Team (Late st Contact Info) Description 12/30/2020 10:00 AM CDT Office Visit [facility] Weight Management Services [address] [place] [address] Morbid obesity (HCC) (Primary Dx) Social [...] none Beverages - 64-70 oz water, [place] NUTRITION DIAGNOSIS Diagnosis: Overweight/obesity Related to: (hx [...] General On track( 021 11:18 AM CDT) Gbariella Arguello, RN Note: Expected end date: ongoing Interventions: Your nurse will assess your risk for falls/injury each visit documented as of this encounter Visit Diagnoses Diagnosis Morbid obesity (HCC)- Primary Morbid obesity documented in this encounter Care Teams Decontamination Technician Relationship Specialty Start Date End Date Jonelle Elam MD [address] [place] [address] [place] [address] PCP - General Family Medicine 10/24/18 Manju Rainey DO [address] [place] [address] Bariatrics 08/11/20 documented as of this encounter
--- OUTSIDE RECORDS SUMMARY | 2024-04-14 20:11 | XMS_ITS | Encounter Summary ---
Author Organization [facility] Address [address] [facility] [place] [address] Care Team Providers Care Computer Operations Analyst Name Role Phone Jonelle Elam MD Primary Care Provider [phone] Manju Rainey DO Unavailable [phone] Encounter Details Date Type Department Care Team (Late st Contact Info) Description 02/14/2021 10:59 AM BUSINESS APPLICATIONS ANALYST - 02/14/2021 11:59 PM [facility] Hospital Encounter [facility] [address] [place] [address] Carmen Lee, APPLICATION PROJECT LEADER-COMMUNITY HEALTH CONSULTANT [address] [place] [address] Discharge Disposition: Home or Self Care Social [...] COVID-19? No / Unsure 02/14/2021 10:58 AM BUSINESS APPLICATIONS ANALYST documented as of this encounter Medications at [...] Take by intrauterine route. 11/03/2021 Probiotic Product ([employer]) capsule Take 1 (one) capsule by mouth [...] 11/03/2021 vitamin D, ergocalciferol, (DRISDOL) 1.25 MG (86555 UT) capsuleIndications:Vi tamin D Deficiency Take 1 [...] (COVID-19) PANEL (SOIL) Routine 02/14/2021 11:00 AM BUSINESS APPLICATIONS ANALYST Pre-operative laboratory examination SARS-COV-2 (COVID-19) IN HOUSE Routine 02/14/2021 11:00 AM BUSINESS APPLICATIONS ANALYST Pre-operative laboratory examination documented in this encounter Results * SARS-COV-2 (COVID-19) INTERNAL (02/14/2021 11:00 AM BUSINESS APPLICATIONS ANALYST) COVID-19 PCR Not detected Not detected 02/15/2021 11:22 AM BUSINESS APPLICATIONS ANALYST [facility] Microbiology SPECIMEN FROM NASOPHARYNGEAL STRUCTURE / Unknown Collection / Unknown 02/14/2021 11:00 AM BUSINESS APPLICATIONS ANALYST 02/14/2021 11:00 AM BUSINESS APPLICATIONS ANALYST Narrative [facility] - 02/15/2021 11:22 AM BUSINESS APPLICATIONS ANALYST This nucleic acid amplification assay performance was validated by [facility]. This test has [...] assay are available upon request. Carmen Lee APPLICATION PROJECT LEADER-COMMUNITY HEALTH CONSULTANT LAB - MICROBIOLO GY ORDERABLES [facility] [address] [place] [address], [facility] [phone] documented in this encounter Visit Diagnoses Diagnosis Pre-operative laboratory examination Pre-procedural laboratory examination documented in this encounter Care Teams Computer Operations Analyst Relationship Specialty Start Date End Date Jonelle Elam MD [address] [place] [address] [place] [address] PCP - General Family Medicine 10/24/18 Manju Rainey DO [address] [place] [address] Bariatrics 08/11/20 documented as of this encounter
--- OUTSIDE RECORDS SUMMARY | 2024-04-14 20:11 | XMS_ITS | Encounter Summary ---
Author Organization [facility] Address [address] [place] [address] Care Team Providers Care Hall Cleaner Name Role Phone Jonelle Elam MD Primary Care Provider [phone] Reason for Visit * Radiology Services (Routine) - Closed Specialty Diagnoses / Procedures Referred By Contac t Referred To Contact MRI Diagnoses Liver lesion NAFLD (nonalcoholic fatty liver disease) Procedures MRI ABDOMEN WWO CONTRAST Maribel Kitchen MD [address] [place] [address] [facility] Mri [address] [place] [address] Referral ID Status Reason Start Date Expiration Date Visits Re quested Visits Authorized [id number] Closed 04/09/2020 04/09/2021 1 1 Encounter Details Date Type Department Care Team (Late st Contact Info) Description 04/17/2020 2:42 PM INSTANT PRINTER OPERATOR - 04/17/2020 11:59 PM INSTANT PRINTER OPERATOR Hospital Encounter [facility] MRI [address] [place] [address] Maribel Kitchen MD [address] [place] [address] Discharge Disposition: Home or Self [...] COVID-19? No / Unsure 04/17/2020 2:31 PM INSTANT PRINTER OPERATOR documented as of this encounter Medications [...] 07/01/2021 vitamin D, ergocalciferol, (DRISDOL) 1.25 MG (82784 UT) capsuleIndications:Vit gudino D Deficiency Take 1 capsule by mouth every 7 days Reasons: Vitamin D Deficiency 4 capsule 3 03/11/2020 10/27/2020 documented as of this encounter Plan of Treatment Not on file documented as of this encounter Procedures Procedure Name Priority Date/Time Associated Diagnosis Comments MRI ABDOMEN WWO CONTRAST Routine 04/17/2020 3:43 PM INSTANT PRINTER OPERATOR Liver lesion NAFLD (nonalcoholic fatty liver disease) CREATININE - POCT INTERFACED Routine 04/17/2020 3:07 PM INSTANT PRINTER OPERATOR documented in this encounter Results * MRI ABDOMEN WWO CONTRAST (04/17/2020 3:43 PM INSTANT PRINTER OPERATOR) Anatomical Region Laterality Modality Abdomen Magnetic Resonan ce 04/17/2020 4:24 PM INSTANT PRINTER OPERATOR Impressions 04/20/2020 12:42 PM INSTANT PRINTER OPERATOR IMPRESSION: 1. Two observations in the right [...] now severe. Dictated by Forrest Galvez MD (radiology technologist). I, Dr. KENNY COVARRUBIAS M.D. have personally reviewed and interpreted this examination/study. This report was electronically signed by KENNY COVARRUBIAS M.D. ??on 04/20/2020 12:42 PM . Narrative 04/20/2020 12:42 PM INSTANT PRINTER OPERATOR EXAMINATION: Magnetic resonance imaging (MRI) of the [...] now severe. Dictated by Forrest Galvez MD (radiology technologist). I, Dr. KENNY COVARRUBIAS M.D. have personally reviewed and interpreted this examination/study. This report was electronically signed by KENNY COVARRUBIAS M.D. on04/20/2020 12:42 PM . Maribel Kitchen MD MR ORDERABLES * CREATININE - POCT INTERFACED (04/17/2020 3:07 PM INSTANT PRINTER OPERATOR) Creatinine POCT 0.88 0.30 - 1.30 mg/dL 04/17/2020 3:20 PM INSTANT PRINTER OPERATOR [facility] eGFR >60 >60 mL/min/1.7 3 m2 04/17/2020 3:20 PM INSTANT PRINTER OPERATOR [facility] Blood BLOOD SPECIMEN / Unknown 04/17/2020 3:07 PM INSTANT PRINTER OPERATOR 04/17/2020 3:20 PM INSTANT PRINTER OPERATOR Maribel Kitchen MD LAB - POINT OF CARE ORDERABLES Performing Organization Address City/State/[facility] Co de Phone Number [facility] [address] [place] [phone], [facility] [phone] documented in this encounter Visit Diagnoses Diagnosis [...] $ Given - Contrast 04/17/2020 3:44 PM INSTANT PRINTER OPERATOR 20 mL documented in this encounter Care Teams Hall Cleaner Relationship Specialty Start Date End Date Jonelle Elam MD [address] [place] [address] [place] [address] PCP - General Family Medicine 10/24/18 documented as of this encounter
--- OUTSIDE RECORDS SUMMARY | 2024-04-14 20:11 | XMS_ITS | Encounter Summary ---
Author Organization [facility] Address [address] [place] [address] Care Team Providers Care Cementer Machine Applicator Name Role Phone Jonelle Elam MD Primary Care Provider [phone] Reason for Referral * Radiology Services (Routine) - Closed Specialty Diagnoses / Procedures Referred By Contac t Referred To Contact MRI Diagnoses Liver lesion Focal nodular hyperplasia of liver NAFLD (nonalcoholic fatty liver disease) Morbid obesity (HCC) Procedures MRI ABDOMEN WWO CONTRAST MRI ABDOMEN WWO CONTRAST Maribel Kitchen MD [address] [place] [address] [facility] [address] [place] [phone] Referral ID Status Reason Start Date Expiration Date Visits Re quested Visits Authorized [id number] Closed 04/15/2021 07/13/2021 1 1 FINISHER * Radiology Services (Routine) - Closed Specialty Diagnoses / Procedures Referred By Contac t Referred To Contact Diagnoses Liver lesion Focal nodular hyperplasia of liver NAFLD (nonalcoholic fatty liver disease) Morbid obesity (HCC) Procedures PROC FIBROSCAN Maribel Kitchen MD [address] [place] [address] Referral ID Status Reason Start Date Expiration Date Visits Re quested Visits Authorized [id number] Closed 04/28/2020 04/28/2021 1 1 FINISHER Encounter Details Date Type Department Care Team (Late st Contact Info) Description 04/28/2020 4:00 PM SILK FINISHER Video Visit [facility] - [address] [facility], [place] [address] Maribel Kitchen MD [address] [place] [address] Liver lesion ; Focal nodular [...] COVID-19? No / Unsure 04/17/2020 2:31 PM SILK FINISHER documented as of this encounter Progress Notes * Maribel Kitchen MD - 04/28/2020 4:39 PM CST [facility] Maribel Kitchen MD Referring Provider: [...] pleasure of meeting Deya Campbell at the [facility] on 04/28/2020. This is [...] HEMATOCRIT, HCT, PLATELET, PLTCOUNT in the last 71904 hours. No results for input(s): INR in the last 11844 hours. Computed MELD-Na score unavailable. 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 Morbid obesity Recommendations: 1. Vaccination for hepatitis B recommended. She will be discussing this with her PCP at her next visit. 2. Once patient is out of quarantine, plan to check hepatic function panel given progression of steatosis on imaging. Will fax orders to [facility] in [place]. 3. Patient counseled at length regarding dietary [...] visit in 6 months. Maribel Kitchen MD Supervisor Vacuum Metalizing Division of Gastroenterology and Hepatology No orders [...] ??? vitamin D, ergocalciferol, (DRISDOL) 1.25 MG (21127 UT) capsule Take 1 capsule by mouth every 7days Reasons: Vitamin D Deficiency (Patient not taking: Reported on 04/15/2020) No current facility-administered medications for this visit. FINISHER documented in this encounter Plan of Treatment Scheduled Orders Name Type Priority Associated Diagnoses Orde r Schedule HEPATIC FUNCTION PANEL Lab Routine Liver lesion Focal nodular hyperplasia of liver NAFLD (nonalcoholic fatty liver disease) Morbid obesity (HCC) Ordered: 04/28/2020 documented as of this encounter Results * MRI ABDOMEN WWO CONTRAST (04/27/2021 11:43 AM SILK FINISHER) Anatomical Region Laterality Modality Abdomen Magnetic Resonan ce 04/27/2021 1:19 PM SILK FINISHER Impressions 04/27/2021 3:19 PM SILK FINISHER Impression: 1.Three observations in the right hepatic [...] gallbladder. Report dictated by Karrie Hall MD (president [place]). I, Dr. KENNY COVARRUBIAS M.D. have personally reviewed and interpreted this examination/study. This report was electronically signed by KENNY COVARRUBIAS M.D. ??on 04/27/2021 3:19 PM . Narrative 04/27/2021 3:19 PM SILK FINISHER Procedure Information: DATE: 04/27/2021 11:43 AM EXAMINATION: [...] gallbladder. Report dictated by Karrie Hall MD (president [place]). I, Dr. KENNY COVARRUBIAS M.D. have personally [...] obesity documented in this encounter Care Teams Cementer Machine Applicator Relationship Specialty Start Date End Date Jonelle Elam MD [address] [place] [address] [place] [address] PCP - General Family Medicine 10/24/18 documented as of this encounter
--- OUTSIDE RECORDS SUMMARY | 2024-04-14 20:11 | XMS_ITS | Encounter Summary ---
Author Organization [facility] Address [address] [place] [address] Care Team Providers Care Screw Eye Assembler Name Role Phone Jonelle Elam MD Primary Care Provider Manju Rainey DO Unavailable Reason for Visit * Reason Comments Morbid Obesity Patient is here toda y for pre surgery visit and H&P update prior to Laparoscopic Sleeve Gastrectomy on 02/17/2021. Encounter Details Date Type Department Care Team (Late st Contact Info) Description 02/09/2021 12:30 PM HOG COOLER Office Visit [facility] Weight Management Services [address] [place] [address] Keith Bojorquez MD [address] [address] Morbid obesity (HCC) (Primary Dx); [...] Comments Blood Pressure 132/83 02/09/2021 1:00 PM HOG COOLER Pulse 73 02/09/2021 1:00 PM HOG COOLER Temperature 36.3 ??C (97.3 ??F) 02/09/2021 1:00 PM CS T Respiratory Rate 18 02/09/2021 1:00 PM HOG COOLER Oxygen Saturation - - Inhaled Oxygen Concentration - - Weight 142.5 kg (314 lb 3.2 oz) 02/09/2021 1:00 PM HOG COOLER Height 160 cm (5' 3 ) 02/09/2021 1:00 PM HOG COOLER Body Mass Index 55.66 02/09/2021 1:00 PM HOG COOLER documented in this encounter Progress Notes * Keith Bojorquez MD - 02/09/2021 1:18 PM CST Images from the original note were not included. [facility] Weight Management Services [address] [address] PH: [phone] , Date of encounter: 02/09/2021 Provider: Keith Bojorquez MD Patient: Deya Campbell CSN: [id number] Specialty: Bariatric Surgery Date of : 1995 [...] ??? vitamin D, ergocalciferol, (DRISDOL) 1.25 MG (85129 UT) capsule Take 1 (one) capsule by [...] 1434 IRON 46 No results for input(s): IMBXSSTO23 in the last 32349 hours. No results for input(s): VITAMINA in the last 60913 hours. Recent Labs Component Name 12/02/20 1434 IRON 46 No results for input(s): VITK1 in the last 73990 hours. No results for input(s): [id number] in the last 47502 hours. No results for input(s): ALPHATOCOPH in the last 10573 hours. No results for input(s): GAMMATOCOPH in the last 96518 hours. No results for input(s): MAGMGDL in the last 35067 hours. No results for input(s): PHOS in the last 48130 hours. Some lab results will be in [...] Hypertension, unspecified type Patient certainly meets [employer] criteria for bariatric surgery, that [...] exercise, diet, and regular close follow-up with uc architect, behavioral therapist and surgical team. In addition, [...] and management of short and terminal gauger complications. I have discussed at great length, [...] has been also discussed the potential terminal gauger, metabolic, nutritional, and mineral derangements complications. Patient [...] Keith Bojorquez MD CC: Jonelle Elam MD COOLER documented in this encounter Plan of Treatment [...] type documented in this encounter Care Teams Screw Eye Assembler Relationship Specialty Start Date End Date Jonelle Elam MD [address] [place] [address] [place] [address] PCP - General Family Medicine 10/24/18 Manju Rainey DO [address] [place] [address] Bariatrics 08/11/20 documented as of this encounter
--- OUTSIDE RECORDS SUMMARY | 2024-04-14 20:11 | XMS_ITS | Encounter Summary ---
Author Organization [facility] Address [address] [facility] [place] [address] Care Team Providers Care Car Wash Manager Name Role Phone Jonelle Elam MD Primary Care Provider [phone] Manju Rainey DO Unavailable [phone] Reason for Referral * Consultation (Routine) - Closed Specialty Diagnoses / Procedures Referred By Ritika bonner Referred To Contact Weight Management Diagnoses Class 3 severe obesity due to excess calories with serious comorbidity and body mass index (BMI) of 60.0 to 69.9 in adult ([facility]) Jeff Bird APRN-CNP [address] [place] [address] [place] [address] [place] [address] Referral ID Status Reason Start Date Expiration Date V isits Requested Visits Authorized [id number] Closed Specialty Services Required 08/27/2021 08/27/2022 1 1 * Evaluate (Routine) - Closed Specialty Diagnoses / Procedures Referred By Contact Referred To Contact Otolaryngology / ENT-Otolaryngology Diagnoses Sinus problem Jeff Bird APRN-CNP [address] [facility] [address]L [place] [address] Hugh Ng MD [address] [facility] 2L [place] [address] Referral ID Status Reason Start Date Expiration Date V isits Requested Visits Authorized Closed Specialty Services Required 08/27/2021 08/27/2022 1 1 * Evaluate & Treat (Routine) - Closed Specialty Diagnoses / Procedures Referred By Ritika bonner Referred To Contact Sleep Medicine / Sleep Center Diagnoses MOOSE (obstructive sleep apnea) Jeff Bird APRN-CNP [address] [facility] [address]L [place] [address] Reena Pollock APNP-[facility] [address] [place] [address] Referral ID Status Reason Start Date Expiration Date V isits Requested Visits Authorized [id number] Closed Specialty Services Required 08/27/2021 08/27/2022 1 1 Reason for Visit * Reason Comments Establish Care * Evaluate & Treat (Routine) - Closed Specialty Diagnoses / Procedures Referred By Contava t Referred To Contact Neurology Diagnoses Nonintractable headache, unspecified chronicity pattern, unspecified headache type Linda Gurrola APRN-CNP [address] [facility] [address]FL [place] [address] Aff Slu Neur Csm [address] [facility], [place] [address] Referral ID Status Reason Start Date Expiration Date V isits Requested Visits Authorized [id number] Closed Specialty Services Required 07/01/2021 07/01/2022 1 1 Encounter Details Date Type Department Care Team (Late st Contact Info) Description 08/27/2021 2:00 PM CDT Office Visit [facility] [address] [facility], [place] [address] Linda Grurola SIDING APPLICATORBUDGET TECHNICIAN [address] [facility] [address] [place] [address] Jeff Bird, SIDING APPLICATOR-BUDGET TECHNICIAN [address] [facility] [address]L [place] [address] MOOSE (obstructive sleep apnea) (Primary [...] see Weight loss clinic Weight management [facility] Weight Management Services Francisco J Mack MD, [facility] Surgery [address] [place] [address] documented in this encounter Progress Notes * Jeff Bird APRN-CNP - 08/27/2021 2:21 PM CDT Neurology - Headache Clinic Note Date of Encounter: 08/27/2021 Deya Campbell Age: [age] year old Date of : 1995 Referring Physician: Jonelle Elam MD [address] [place] [address] [place] [address] Reason for Office Visit: Pian head/ Accompanied [...] ??? vitamin D, ergocalciferol, (DRISDOL) 1.25 MG (62504 UT) capsule Take 1 (one) capsule by [...] Sleep speciality for MOOSE To see Weight cash management coordinator for Obesity -Maintain headache diary -Lifestyle modification [...] Order Schedule Ref to ENT Otolaryngology - [facility] Outpatient Referral Routine Sinus problem 1 Occurrences [...] (HCC) documented in this encounter Care Teams Car Wash Manager Relationship Specialty Start Date End Date Jonelle Elam MD [address] [place] [address] PCP - General Family Medicine 10/24/18 Manju Rainey DO [address] [place] [address] Bariatrics 08/11/20 documented as of this encounter
--- OUTSIDE RECORDS SUMMARY | 2024-04-14 20:11 | XMS_ITS | Encounter Summary ---
Author Organization [facility] Address [address] [facility] [place] [address] Care Team Providers Care Electronic Page Makeup System Operator Name Role Phone Jonelle Elam MD Primary Care Provider Manju Rainey DO Unavailable Reason for Visit * Reason Comments Refill Request Encounter Details Date Type Department Care Team ([facility] Contact Info) Description 10/19/2020 Refill [facility] Weight Management Services [address] [place] [phone] Manju Rainey, [address] [place] [address] Refill Request Social History Tobacco Use Types [...] Pica documented in this encounter Care Teams Electronic Page Makeup System Operator Relationship Specialty Start Date End Date Jonelle Elam MD NPI: [id number] [place] [address] [place] [phone] PCP - General Family Medicine 10/24/18 Manju Rainey DO [address] [place] [address] Bariatrics 08/11/20 documented as of this encounter
--- OUTSIDE RECORDS SUMMARY | 2024-04-14 20:11 | XMS_ITS | Encounter Summary ---
Author Organization [facility] Address [address] [facility] [place] [address] Care Team Providers Care Thrasher Feeder Name Role Phone Jonelle Elam MD Primary Care Provider Manju Rainey DO Unavailable [phone] Reason for Visit * Reason Comments Obesity Follow Up Encounter Details Date Type Department Care Team (Late Contact Info) Description 08/12/2020 2:30 PM CDT Video Visit [facility] Weight Management Services [address] [place] [address] Manju Rainey, DO [address] [place] [address] Obesity, morbid, BMI 50 or higher (HCC) [...] from the original note were not included. [facility] [address] [facility] [address] [facility] [address] Dept: [phone] Dept Telemedicine Note Today's visit was conducted virtually due to COVID-19 countermeasures. The patient has given verbalconsent to have today's visit conducted by this same means with treatment provided remotely. The patient verbally consents to the billing and collection practices of [facility]. Patient location: Home This encounter was performed using: audio and video Time spent direct and indirect care: : 34 minutes Date of encounter: 08/12/2020 Provider: Manju Rainey DO Patient: Deay Campbell CSN: [id number] Specialty: Bariatrics. Date of : 1995 Visit [...] you have an unusual work schedule? na [place] Sleepiness Scale total points: 9 Past Medical [...] Gatherings with Friends and Family: ??? Attends Yazidi Services: ??? Active Member of Clubs or [...] ??? vitamin D, ergocalciferol, (DRISDOL) 1.25 MG (25152 UT) capsule Take 1 capsule by mouth [...] mood documented in this encounter Care Teams Thrasher Feeder Relationship Specialty Start Date End Date Jonelle Elam MD [address] [place] [address] PCP - General Family Medicine 10/24/18 Manju Rainey DO [address] [place] [address] Bariatrics 08/11/20 documented as of this encounter
--- OUTSIDE RECORDS SUMMARY | 2024-04-14 20:11 | XMS_ITS | Encounter Summary ---
Author Organization [facility] Address [address] [facility] [place] [address] Care Team Providers Care Sales Support Coordinator Name Role Phone Jonelle Elam MD Primary Care Provider Manju Rainey DO Unavailable Encounter Details Date Type Department Care Team (Late st Contact Info) Description 08/17/2020 Orders Only [facility] Weight Management Services [address] [place] [address] Manju Rainey DO [address] [place], [place] [phone] Abnormal craving Social History Tobacco Use Types [...] Pica documented in this encounter Care Teams Sales Support Coordinator Relationship Specialty Start Date End Date Jonelle Elam MD [address] [place] [address] [place] [address] PCP - General Family Medicine 10/24/18 Manju Rainey DO [address] [place] [address] Bariatrics 08/11/20 documented as of this encounter
--- OUTSIDE RECORDS SUMMARY | 2024-04-14 20:11 | XMS_ITS | Encounter Summary ---
Author Organization [facility] Address [address] [place] [address] Care Team Providers Care Public Defender Name Role Phone Jonelle Elam MD Primary Care Provider [phone] Manju Rainey DO Unavailable [phone] Reason for Visit * Reason Onset Date Comments Results 01/28/2021 Encounter Details Date Type Department Care Team (Late st Contact Info) Description 01/28/2021 Telephone [facility] - [address] [phone] Gabriella Moon RN Results Social History Tobacco [...] recommendation was to repeat an MRI at [facility] in 6 months. Future appointment MRI- [...] on filedocumented in this encounter Care Teams Public Defender Relationship Specialty Start Date End Date Jonelle Elam MD [address] [place] [address] [place] [address] PCP - General Family Medicine 10/24/18 Manju Rainey DO [address] [place] [address] Bariatrics 08/11/20 documented as of this encounter
--- OUTSIDE RECORDS SUMMARY | 2024-04-14 20:11 | XMS_ITS | Encounter Summary ---
Author Organization [facility] Address [address] [place] [address] Care Team Providers Care Machine Operator General Name Role Phone Jonelle Elam MD Primary Care Provider [phone] Manju Rainey DO Unavailable [phone] Encounter Details Date Type Department Care Team (Late st Contact Info) Description 05/17/2021 Orders Only [facility] - [address] [facility], [place] [address] Maribel Kitchen MD [address] [place] [address] Social History Tobacco Use Types Packs/Day Years [...] Coronavirus / COVID-19? Yes 04/27/2021 10:37 AM SCHOLASTIC APTITUDE TEST GRADER documented as of this encounter Plan of [...] on filedocumented in this encounter Care Teams Machine Operator General Relationship Specialty Start Date End Date Jonelle Elam MD [address] [place] [address] [place] [address] PCP - General Family Medicine 10/24/18 Manju Rainey DO [address] [place] [address] Bariatrics 08/11/20 documented as of this encounter
--- OUTSIDE RECORDS SUMMARY | 2024-04-14 20:11 | XMS_ITS | Encounter Summary ---
Author Organization [facility] Address [address] [place] [address] Care Team Providers Care Marriage Performer Name Role Phone Jonelle Elam MD Primary Care Provider Manju Rainey DO Unavailable [phone] Reason for Visit * Reason Onset Date Comments Appointment 05/19/2021 Encounter Details Date Type Department Care Team (Late st Contact Info) Description 05/19/2021 Telephone [facility] Weight Management Services [address] [place] [address] Keith Bojorquez MD [address] [place] [address] Appointment Social History Tobacco Use [...] Coronavirus / COVID-19? Yes 04/27/2021 10:37 AM SQE documented as of this encounter Miscellaneous Notes * Telephone Encounter - Jackeline Tejada - 05/19/2021 11:32 AM CST lvm with pt to see if she was wanting to get back on track to schedule surgery documented in this encounter Plan of Treatment [...] on filedocumented in this encounter Care Teams Marriage Performer Relationship Specialty Start Date End Date Jonelle Elam MD [address] [place] [address] [place] [phone] PCP - General Family Medicine 10/24/18 Manju Rainey DO [address] [place] [address] Bariatrics 08/11/20 documented as of this encounter
--- OUTSIDE RECORDS SUMMARY | 2024-04-14 20:11 | XMS_ITS | Encounter Summary ---
Author Organization [facility] Address [address] [facility] [place] [address] Care Team Providers Care Aoc Director Intelligence Officer Name Role Phone Jonelle Elam MD Primary Care Provider [phone] Manju Rainey DO Unavailable [phone] Reason for Visit * Reason Comments Bariatric Surgery Pre-op Instruction Encounter Details Date Type Department Care Team (Late st Contact Info) Description 03/24/2021 3:30 PM LOCAL COMBINATION TRUCK DRIVER Video Visit [facility] Weight Management Services [address] [place] [phone] Carmen Lee, ADULT EDUCATOR-PERSONNEL DIRECTOR [address] [place] [address] BMI 50.0-59.9, adult ([facility]) ; Class 3 severe obesity due to excess calories with serious comorbidity and body mass index (BMI) of 50.0 to 59.9 in adult ([facility]); Pre-op exam; Gastroesophageal reflux disease without esophagitis; [...] (303 lb 14.4 oz) 03/24/2021 3:00 PM LOCAL COMBINATION TRUCK DRIVER video Visit weight from one month ago Height 160 cm (5' 3 ) 03/24/2021 3:00 PM LOCAL COMBINATION TRUCK DRIVER Body Mass Index 53.83 03/24/2021 3:00 PM LOCAL COMBINATION TRUCK DRIVER documented in this encounter Progress Notes * Carmen Lee APRN-CNP - 03/24/2021 3:44 PM CST Images from the original note were not included. [facility] Weight Management Services [place] [id number] PH: [phone] , Date of encounter: 03/24/2021 Provider: PARAS Cervantes Patient: Deya Campbell CSN: [id number] Specialty: Bariatric Surgery Date of : 1995 [...] ??? vitamin D, ergocalciferol, (DRISDOL) 1.25 MG (74672 UT) capsule Take 1 (one) capsule by [...] disease) Patient follows with Dr. Maribel Kitchen, avionics safety inspector, at [facility]; per previous scan liver shows changesquestionable for [...] Will defer to primary care provider / manager php for continued monitoring and management. ?? (F43.23) [...] to the billing and collection practices of [facility]. Patient location: Home Provider location: [facility] Services This encounter was [...] Epic PARAS Cervantes CC: Jonelle Elam MD L COMBINATION TRUCK DRIVER documented in this encounter Plan of Treatment [...] (BMI) of 50.0 to 59.9 in adult ([facility]) Pre-op exam Preoperative examination, unspecified Gastroesophageal reflux [...] (pediatric) documented in this encounter Care Teams Aoc Director Intelligence Officer Relationship Specialty Start Date End Date Jonelle Elam MD [address] [place] [address] [place] [phone] PCP - General Family Medicine 10/24/18 Manju Rainey DO [address] [place] [address] Bariatrics 08/11/20 documented as of this encounter
--- OUTSIDE RECORDS SUMMARY | 2024-04-14 20:11 | XMS_ITS | Encounter Summary ---
Author Organization [facility] Address [address] [facility] [place] [address] Care Team Providers Care Campus Recruiter Name Role Phone Jonelle Elam MD Primary Care Provider Manju Rainey DO Unavailable [phone] Encounter Details Date Type Department Care Team (Late st Contact Info) Description 11/26/2020 4:00 PM CDT Video Visit [facility] Weight Management Services [address] [place] [phone] Rain Claros MD [address] [place] [address] Morbid obesity (HCC) Social History [...] to the billing and collection practices of [facility]. Patient location: Home This encounter was performed [...] obesity documented in this encounter Care Teams Campus Recruiter Relationship Specialty Start Date End Date Jonelle Elam MD [address] [place] [address] [place] [address] PCP - General Family Medicine 10/24/18 Manju Rainey DO [address] [place] [address] Bariatrics 08/11/20 documented as of this encounter
--- OUTSIDE RECORDS SUMMARY | 2024-04-14 20:11 | XMS_ITS | Encounter Summary ---
Author Organization [facility] Address [address] [facility] [place] [address] Care Team Providers Care Regional Director Name Role Phone Jonelle Elam MD Primary Care Provider [phone] Manju Rainey DO Unavailable Reason for Visit * Reason Onset Date Comments Appointment 08/12/2020 Encounter Details Date Type Department Care Team (Late st Contact Info) Description 08/12/2020 Telephone [facility] [address] [place] [phone] Manju Rainey, [address] [place], [place] [address] Appointment Social History Tobacco Use Types Packs/Day [...] on filedocumented in this encounter Care Teams Regional Director Relationship Specialty Start Date End Date Jonelle Elam MD [address] [place] [phone] PCP - General Family Medicine 10/24/18 Manju Rainey DO [address] [place] [address] Bariatrics 08/11/20 documented as of this encounter
--- OUTSIDE RECORDS SUMMARY | 2024-04-14 20:11 | XMS_ITS | Encounter Summary ---
Author Organization [facility] Address [address] [place] [address] Care Team Providers Care Backing In Machine Tender Name Role Phone Jonelle Elam MD Primary Care Provider [phone] Manju Rainey DO Unavailable [phone] Encounter Details Date Type Department Care [...] on filedocumented in this encounter Care Teams Backing In Machine Tender Relationship Specialty Start Date End Date Jonelle Elam MD [address] [place] [address] [place] [phone] PCP - General Family Medicine 10/24/18 Manju Rainey DO [address] [place] [address] Bariatrics 08/11/20 documented as of this encounter
--- OUTSIDE RECORDS SUMMARY | 2024-04-14 20:11 | XMS_ITS | Encounter Summary ---
Author Organization [facility] Address [address] [facility] [place] [address] Care Team Providers Care Mailing Clerk Name Role Phone Jonelle Elam MD Primary Care Provider [phone] Manju Rainey DO Unavailable [phone] Reason for Visit * Reason Comments Bariatric Surgery Pre-op Instruction Encounter Details Date Type Department Care Team (Late st Contact Info) Description 11/05/2020 2:30 PM CDT Office Visit [facility] Services [address] [place] [phone] Carmen Lee, DISHTANK OPERATOR-FOREST SCIENCE PROFESSOR [address] [place] [address] BMI 50.0-59.9, adult (HCC) (Primary Dx); Class [...] from the original note were not included. [facility] [address] [address] PH: [phone] , Date of encounter: 11/05/2020 Provider: PARAS Cervantes Patient: Deya Campbell [facility]: [id number] Specialty: Bariatric Surgery Date of : 1995 [...] in January 2020; she continued following with [facility] until March 2020 when she began following up with Dr.Esther Rainey whom she followed with until October 2020 at which time she requested to be seen by Dr. Bojorquez at [facility]. Patient is non-smoker, reports [...] Gatherings with Friends and Family: ??? Attends Nondenominational Services: ??? Active Member of Clubs or [...] ??? vitamin D, ergocalciferol, (DRISDOL) 1.25 MG (12540 UT) capsule Take 1 (one) capsule by [...] it was recommended patient began taking Ergocalciferol 18111 units by mouth weekly and continue taking [id number] vitamin-D supplement 2000 units daily. (I10) Essential hypertension Currently takes losartan for management. BP at today's visit was 148/87. Will defer to primary careprovider for continued monitoring and management. (K76.0) NAFLD (nonalcoholic fatty liver disease) Patient follows with Dr. Maribel Kitchen, can intake worker, at [facility]; per previous scan liver shows changesquestionable for [...] needs follow up: Will be determined at [facility] with Dr. Bojorquez Follow up: Will see [...] mood documented in this encounter Care Teams Mailing Clerk Relationship Specialty Start Date End Date Jonelle Elam MD [address] [place] [address] [place] [address] PCP - General Family Medicine 10/24/18 Manju Rainey DO [address] [place] [address] Bariatrics 08/11/20 documented as of this encounter
--- OUTSIDE RECORDS SUMMARY | 2024-04-14 20:11 | XMS_ITS | Encounter Summary ---
Author Organization [facility] Address [address] [facility] [place] [address] Care Team Providers Care Completion Manager Name Role Phone Jonelle Elam MD Primary Care Provider [phone] Manju Rainey DO Unavailable [phone] Encounter Details Date Type Department Care Team (Late st Contact Info) Description 02/10/2021 11:00 AM DOLL WIG MAKER ROOTED HAIR Video Visit [facility] [address] [place] [phone] Morbid obesity (HCC) Social History Tobacco [...] billing and collection practices of [facility]. Patient location: Home This encounter was performed [...] okay You will be a pt of [facility] for how long? Life Is physical activity after surgery optional or required? Required How often? Ideally 5x/week for 30 minutes/x Total MNT minutes this calendar year: 135/240 WIG MAKER ROOTED HAIR documented in this encounter Plan of Treatment [...] obesity documented in this encounter Care Teams Completion Manager Relationship Specialty Start Date End Date Jonelle Elam MD [address] [place] [address] [place] [address] PCP - General Family Medicine 10/24/18 Manju Rainey DO [address] [place] [address] Bariatrics 08/11/20 documented as of this encounter
--- OUTSIDE RECORDS SUMMARY | 2024-04-14 20:11 | XMS_ITS | Encounter Summary ---
Author Organization [facility] Address [address] [place] [address] Care Team Providers Care Concrete Mixing Truck Driver Name Role Phone Jonelle Elam MD Primary Care Provider [phone] Manju Rainey DO Unavailable [phone] Encounter Details Date Type Department Care [...] COVID-19? No / Unsure 02/14/2021 10:58 AM FIRMWARE DEVELOPER documented as of this encounter Plan of [...] on filedocumented in this encounter Care Teams Concrete Mixing Truck Driver Relationship Specialty Start Date End Date Jonelle Elam MD [address] [place] [address] [place] [phone] PCP - General Family Medicine 10/24/18 Manju Rainey DO [address] [place] [address] Bariatrics 08/11/20 documented as of this encounter
--- OUTSIDE RECORDS SUMMARY | 2024-04-14 20:11 | XMS_ITS | Encounter Summary ---
Author Organization [facility] Address [address] [facility] [place] [address] Care Team Providers Care Control Systems Drafting Officer Name Role Phone Jonelle Elam MD [...] COVID-19? No / Unsure 04/17/2020 2:31 PM SENIOR RESEARCH EXECUTIVE documented as of this encounter Plan of Treatment Not on file documented as of this encounter Visit Diagnoses Not on filedocumented in this encounter Care Teams Control Systems Drafting Officer Relationship Specialty Start Date End Date Jonelle Elam MD [address] [place] [address] ROGELIO Reinoso [phone] PCP - General Family Medicine 10/24/18 documented as of this encounter
--- OUTSIDE RECORDS SUMMARY | 2024-04-14 20:11 | XMS_ITS | Encounter Summary ---
Author Organization [facility] Address [address] [place] [address] Care Team Providers Care Junior Loan Processor Name Role Phone Jonelle Elam MD Primary Care Provider Manju Rainey DO Unavailable [phone] Encounter Details Date Type Department Care Team (Latest Contact Info) Description 12/02/2020 1:10 PM CDT - 12/02/2020 11:59 PM CDT Hospital Encounter [facility] LAB OP DRAW STATION [address] [place] [phone] Jonelle Elam MD [address] [place] [address] [place] [address] Discharge Disposition: Home or Self [...] 02/09/2021 vitamin D, ergocalciferol, (DRISDOL) 1.25 MG (77485 UT) capsuleIndications:Vit gudino D Deficiency Take 1 [...] Name Priority Date/Time Associated Diagnosis Comments PTT [facility] Routine 12/02/2020 2:34 PM CDT Liver lesion [...] - 0.5 mg/dL 12/02/2020 3:44 PM CDT [facility] Blood BLOOD SPECIMEN / Unknown Lab Venipuncture / Unknown 12/02/2020 2:34 PM CDT 12/02/2020 3:18 PM CDT Maribel Kitchen MD LAB - CHEMISTRY KACY HICKS [facility] [address] [place] [phone], [facility] [phone] * (ABNORMAL) VITAMIN D 25-HYDROXY (12/02/2020 2:34 PM CDT) Pathologist [facility] Vitamin D, 25 Hydroxy 20.0(L) 30.0 - 80.0 ng/mL 12/02/2020 4:17 PM CDT [facility] Comment: The recommendations for 25-Hydroxy Vitamin [...] Bojorquez MD LAB - CHEMISTRY KACY HICKS [facility] [address] [place] [address], [facility] [phone] * VITAMIN B1 (12/02/2020 2:34 PM CDT) Vitamin B1 Whole Blood 82 70 - 180 nmol/L 12/07/2020 10:09 AM CDT [facility] ([facility]) Comment: INTERPRETIVE INFORMATION: Vitamin B1, Whole Blood This assay measures the concentration of thiamine diphosphate (TDP), the primary active form of vitamin B1. Approximately 90 percent of vitamin B1 present in whole blood is TDP. Thiamine and thiamine monophosphate, which comprise the remaining 10 percent, are not measured. This test was developed and its performance characteristics determined by [facility]. It has not been cleared or approved by the US Food and Drug Administration. This test was performed in a CLIA certified laboratory and is intended for clinical purposes. Performed By: [facility] [address] [place] [address] Sql Report Analyst: Amena Guerrero MD Blood BLOOD SPECIMEN / Unknown Lab Venipuncture / Unknown 12/02/2020 2:34 PM CDT 12/02/2020 3:18 PM CDT Keith Bojorquez MD LAB - CHEMISTRY KACY HICKS Performing Organization Address City/[facility]/ZIP Co de Phone Number [facility]) [address] * (ABNORMAL) IRON + TRANSFERRIN PANEL (12/02/2020 2:34 PM CDT) Iron 46 40 - 150 ug/dL 12/02/2020 4:48 PM CDT [facility] Transferrin 301 174 - 382 mg/dL 12/02/2020 4:48 PM CDT [facility] Transferrin Saturation % 12(L) 16 - 50 % 12/02/2020 4:48 PM CDT [facility] TIBC Calculated 376 240 - 450 ug/dL 12/02/2020 4:48 PM CDT [facility] Blood BLOOD SPECIMEN / Unknown Lab Venipuncture / Unknown 12/02/2020 2:34 PM CDT 12/02/2020 3:17 PM CDT Keith Bojorquez MD LAB - CHEMISTRY KACY HICKS Performing Organization Address [facility]/ZIP Co de Phone Number [address] [address], [facility] [phone] * MAGNESIUM BLOOD (12/02/2020 2:34 PM CDT) Magnesium 1.9 1.6 - 2.6 mg/dL 12/02/2020 3:44 PM CDT [facility] Blood BLOOD SPECIMEN / Unknown Lab Venipuncture / Unknown 12/02/2020 2:34 PM CDT 12/02/2020 3:18 PM CDT Keith Bojorquez MD LAB - CHEMISTRY KACY HICKS Performing Organization Address [facility]/ZIP Co de Phone Number [address] [address], [facility] [phone] * (ABNORMAL) LIPID PROFILE (12/02/2020 2:34 PM CDT) Cholesterol Total 178 <200 mg/dL 12/02/2020 3:44 PM CDT [facility] HDL 53 >40 mg/dL 12/02/2020 3:44 PM CDT [facility] Comment: ATP III Classification of HDL Cholesterol: ? <40 mg/dL: ??Considered a major risk factor. ? >60 mg/dL: ??Considered a negative risk factor. ? LDL Calculated 88 <100 mg/dL 12/02/2020 3:44 PM CDT [facility] Comment: ATP III Classification of LDL Cholesterol: ?<100 mg/dL: ??Optimal ? 100 - 129 mg/dL: ??Near Optimal/Above Optimal ? 130 - 159 mg/dL: ??Borderline High ? 160 - 189 mg/dL: ??High ?>190 mg/dL: ??Very High ? Triglycerides 186(H) <150 mg/dL 12/02/2020 3:44 PM CDT [facility] Comment: ATP III Classification of Triglycerides: ?<150 mg/dL: ??Normal ? 150 - 199 mg/dL: ??Borderline High ? 200 - 400 mg/dL: ??High ?>500 mg/dL: ??Very High Blood BLOOD SPECIMEN / Unknown Lab Venipuncture / Unknown 12/02/2020 2:34 PM CDT 12/02/2020 3:18 PM CDT Keith Bojorquez MD LAB - CHEMISTRY KACY HICKS [facility] Organization Address City/State/[facility] Co de Phone Number [facility] [address] [place] [address], [facility] [phone] * HEMOGLOBIN A1C (12/02/2020 2:34 PM CDT) [facility] Signature Hemoglobin A1c 5.7 4.4 - 6.3 % 12/03/2020 9:24 AM CDT [facility] Estimated Average Glucose 117 mg/dL 12/03/2020 9:24 AM T [facility] Comment: HbA1c Interpretation: Treatment target values recommended by ADA and other clinical organizations should be used to evaluate metabolic control in patients. Treatment Target Values: Normal : < 5.7% Pre-diabetes: 5.7-6.4% Diabetes: Equal to or greater than 6.5% Reference: [place] [employer] Association Standards of Care in Diabetes -2014 In patients 70 years and older consider HbA1c target range of 7.0-7.5% Reference: ??Diabetes Mellitus in Older People: Position Statement on behalf of the International Association of Gerontology and Geriatrics (IAGG), the Diabetes Working Democrat for Older People (EDWPOP), and the International Task Force of Experts in Diabetes. ??Joe García et al. J [place] [employer] Association. 2012 Test results diagnostic of diabetes should be repeated for confirmation. The Sebia Capillary 2 assay for the measurement of HbA1c is a National Glycohemoglobin Standardization Program (NGSP)certified method. Blood BLOOD SPECIMEN / Unknown Lab Venipuncture / Unknown 12/02/2020 2:34 PM CDT 12/02/2020 3:17 PM CDT Keith Bojorquez MD LAB - CHEMISTRY KACY HICKS [facility] [address] [place] [address], [place] [phone] * FERRITIN (12/02/2020 2:34 PM CDT) Pathologist [facility] Ferritin 31 13 - 204 ng/mL 12/02/2020 5:06 PM CDT [facility] Blood BLOOD SPECIMEN / Unknown Lab Venipuncture / Unknown 12/02/2020 2:34 PM CDT 12/02/2020 3:17 PM CDT Keith Bojorquez MD LAB - CHEMISTRY KACY HICKS [facility] [address] [place] [address], [place] [phone] * COMPREHENSIVE METABOLIC PANEL (12/02/2020 2:34 PM CDT) Pathologist [facility] BUN 12 7 - 26 mg/dL 12/02/2020 3:44 PM CDT [facility] Creatinine 0.63 0.56 - 0.96 mg/dL 12/02/2020 3:44 PM CDT [facility] Sodium 142 136 - 145 mmol/L 12/02/2020 3:44 PM CDT [facility] Potassium 4.0 3.5 - 4.5 mmol/L 12/02/2020 3:44 PM CDT [facility] Chloride 105 98 - 107 mmol/L 12/02/2020 3:44 PM CDT [facility] CO2 25 22 - 29 mmol/L 12/02/2020 3:44 PM CDT [facility] Glucose 88 70 - 115 mg/dL 12/02/2020 3:44 PM [facility] Calcium 9.9 8.4 - 10.2 mg/dL 12/02/2020 3:44 PM [facility] Protein Total 7.2 6.0 - 8.3 g/dL 12/02/2020 3:44 PM [facility] Albumin 4.2 3.4 - 5.0 g/dL 12/02/2020 3:44 PM [facility] Bilirubin Total 0.6 0.2 - 1.2 mg/dL 12/02/2020 3:44 PM [facility] Alkaline Phosphatase 66 40 - 150 U/L 12/02/2020 3:44 PM [facility] ALT 33 5 - 55 U/L 12/02/2020 3:44 PM [facility] AST 19 5 - 34 U/L 12/02/2020 3:44 PM [facility] Anion Gap 16 8 - 18 12/02/2020 3:44 PM [facility] BUN/Creatinine Ratio 19 7 - 23 12/02/2020 3:44 PM [facility] Osmolality Calculated 293 270 - 300 mOsm/kg 12/02/2020 3:44 PM [facility] Albumin/Globulin Ratio 1.4 1.1 - 2.3 12/02/2020 3:44 PM [facility] eGFR by CKD-EPI >90 >=90 mL/min/1.7 3 m2 12/02/2020 3:44 PM [facility] Blood BLOOD SPECIMEN / Unknown Lab Venipuncture / Unknown 12/02/2020 2:34 PM CDT 12/02/2020 3:18 PM CDT Maribel Kitchen MD LAB - CHEMISTRY KACY HICKS [facility] Organization Address City/State/ZIP Co de Phone Number [facility] [address] [place] [address], [facility] [phone] * PT-INR [facility] (12/02/2020 2:34 PM CDT) PT 13.2 12.1 - 14.8 Seconds 12/02/2020 3:32 PM [facility] INR 1.0 See Comment 12/02/2020 3:32 PM [facility] Comment:The suggested therap eutic range for standard coumadin (warfarin) therapy is an INR of 2.0-3.0. For high-risk patients (Mechanical Mitral Valve Prosthesis, etc.), the suggested prophylactic therapeutic range is an INR of 2.5-3.5. Blood BLOOD SPECIMEN / Unknown Lab Venipuncture / Unknown 12/02/2020 2:34 PM CDT 12/02/2020 3:17 PM CDT Maribel Kitchen MD LAB - COAGULATION OR DERABLES [facility] [address] [place] [address], [facility] [phone] * (ABNORMAL) CBC WITH DIFFERENTIAL (12/02/2020 2:34 PM CDT) WBC 7.3 3.5 - 10.5 10? 3 /uL 12/02/2020 4:06 PM [facility] RBC 4.82 3.80 - 5.20 10? 6 /uL 12/02/2020 4:06 PM [facility] Hemoglobin 12.6 12.0 - 15.6 g/dL 12/02/2020 4:06 PM [facility] Hematocrit 38.7 35.0 - 45.0 % 12/02/2020 4:06 PM [facility] MCV 80.3(L) 80.7 - 98.3 fL 12/02/2020 4:06 PM [facility] MCH 26.1(L) 26.7 - 34.0 pg 12/02/2020 4:06 PM [facility] MCHC 32.6 30.8 - 35.9 g/dL 12/02/2020 4:06 PM [facility] Platelet Count 196 150 - 400 10? 3 /uL 12/02/2020 4:06 PM [facility] Comment: Occasional platelet clump present on slide. Platelet count appears adequate. This is an appended report. ??These results have been appended to a previously preliminary verified report. RDW-SD 40.4 36.0 - 50.0 fL 12/02/2020 4:06 PM [facility] RDW-CV 13.8 11.2 - 14.8 % 12/02/2020 4:06 PM [facility] MPV 11.2 9.4 - 12.9 fL 12/02/2020 4:06 PM [facility] nRBC Absolute 0.00 0 10? 3 /uL 12/02/2020 4:06 PM [facility] nRBC Auto 0.0 0 /100 WBC 12/02/2020 4:06 PM [facility] Neutrophils % 56.9 35.0 - 70.0 % 12/02/2020 4:06 PM [facility] Lymphocytes % 33.0 20.0 - 43.0 % 12/02/2020 4:06 PM [facility] Monocytes % 7.3 5.0 - 13.0 % 12/02/2020 4:06 PM [facility] Eosinophils % 1.8 0.0 - 6.0 % 12/02/2020 4:06 PM [facility] Basophil % 0.7 0.0 - 2.0 % 12/02/2020 4:06 PM [facility] Neutrophils Absolute 4.2 1.6 - 7.0 10? 3 /uL 12/02/2020 4:06 PM [facility] Lymphocyte Absolute 2.4 1.1 - 3.9 10? 3 /uL 12/02/2020 4:06 PM [facility] Monocytes Absolute 0.53 0.26 - 1.07 10? 3 /uL 12/02/2020 4:06 PM [facility] Eosinophils Absolute 0.13 0.00 - 0.47 10? 3 /uL 12/02/2020 4:06 PM [facility] Basophils Absolute 0.05 0.00 - 0.08 10? 3 /uL 12/02/2020 4:06 PM [facility] Immature Granulocytes % 0.3 0.0 - 1.0 % 12/02/2020 4:06 PM CDT [facility] Immature Granulocytes Absolute 0.02 12/02/2020 4:06 PM CDT [facility] Immature Platelet Fraction 11.1(H) 1.1 - 6.2 % 12/02/2020 4:06 PM CDT [facility] Blood BLOOD SPECIMEN / Unknown Lab Venipuncture / Unknown 12/02/2020 2:34 PM CDT 12/02/2020 3:17 PM CDT Maribel Kitchen MD LAB - HEMATOLOGY ORD ERABLES [address] [address], [place] [phone] * FOLATE (12/02/2020 2:34 PM CDT) Folate 9.0 7.0 - 31.4 ng/mL 12/02/2020 4:16 PM CDT [facility] Blood BLOOD SPECIMEN / Unknown Lab Venipuncture / Unknown 12/02/2020 2:34 PM CDT 12/02/2020 3:18 PM CDT Keith Bojorquez MD LAB - CHEMISTRY KACY HICKS Performing Organization Address City/[facility]/ZIP Co de Phone Number [address] [address], [place] [phone] * VITAMIN B12 (12/02/2020 2:34 PM CDT) Vitamin B12 806 213 - 816 pg/mL 12/02/2020 4:17 PM CDT [facility] Blood BLOOD SPECIMEN / Unknown Lab Venipuncture / Unknown 12/02/2020 2:34 PM CDT 12/02/2020 3:18 PM CDT Keith Bojorquez MD LAB - CHEMISTRY KACY HICKS [address] [address], [place] [phone] * PTH INTACT ([facility]) (12/02/2020 2:34 PM CDT) PTH Intact 25.2 8.0 - 77.0 pg/mL 12/02/2020 3:49 PM CDT [facility] Blood BLOOD SPECIMEN / Unknown Lab Venipuncture / Unknown 12/02/2020 2:34 PM CDT 12/02/2020 3:18 PM CDT Keith Bojorquez MD LAB - CHEMISTRY ORDMolina HCIKS Performing Organization Address City/[facility]/ZIP Co de Phone Number [address] [address], [facility] [phone] * PTT [facility] (12/02/2020 2:34 PM CDT) APTT 25.0 23.0 - 38.4 Seconds 12/02/2020 3:32 PM CDT [facility] Comment:Suggested therapeuti c range for full dose I.V. unfractionated heparin therapy for venous thromboembolism is 71 to 109 seconds. Blood BLOOD SPECIMEN / Unknown Lab Venipuncture / Unknown 12/02/2020 2:34 PM CDT 12/02/2020 3:17 PM CDT Keith Bojorquez MD LAB - COAGULATION OR DERABLES Performing Organization Address [facility]/ZIP Co de Phone Number [address] [address], [facility] [phone] * TSH REFLEX FREE T4 (12/02/2020 2:34 PM CDT) TSH 0.811 0.350 - 4.940 uIU/mL 12/02/2020 4:17 PM CDT [facility] Blood BLOOD SPECIMEN / Unknown Lab Venipuncture / Unknown 12/02/2020 2:34 PM CDT 12/02/2020 3:18 PM CDT Keith Bojorquez MD LAB - CHEMISTRY KACY HICKS [facility] [address] [place] [address], [facility] [phone] documented in this encounter Visit Diagnoses Diagnosis [...] (LDH) documented in this encounter Care Teams Junior Loan Processor Relationship Specialty Start Date End Date Jonelle Elam MD [address] [place] [address] [place] [phone] PCP - General Family Medicine 10/24/18 Manju Rainey DO [address] [place] [address] Bariatrics 08/11/20 documented as of this encounter
--- OUTSIDE RECORDS SUMMARY | 2024-04-14 20:11 | XMS_ITS | Encounter Summary ---
Author Organization [facility] Address [address] [place] [address] Care Team Providers Care Lye Bath Operator Name Role Phone Jonelle Elam MD Primary Care Provider Manju Rainey DO Unavailable [phone] Reason for Referral * Radiology Services (Routine) - Closed Specialty Diagnoses / Procedures Referred By Ritika bonner Referred To Contact MRI Diagnoses Liver lesion Procedures MRI ABDOMEN WWO CONTRAST Maribel Kitchen MD [address] [place] [address] [address] Referral ID Status Reason Start Date Expiration Date Visits Re quested Visits Authorized [id number] Closed 10/14/2021 01/12/2022 1 1 Reason for Visit * Radiology Services (Routine) - Closed Specialty Diagnoses / Procedures Referred By Ritika bonner Referred To Contact MRI Diagnoses Liver lesion Procedures MRI ABDOMEN WWO CONTRAST Maribel Kitchen MD [address] [place] [address] [facility] [address] [place] [address] Referral ID Status Reason Start Date Expiration Date Visits Re quested Visits Authorized [id number] Closed 10/14/2021 01/12/2022 1 1 Encounter Details Date Type Department Care Team (Late st Contact Info) Description 10/22/2021 11:30 AM CDT - 10/22/2021 11:59 PM CDT Hospital Encounter [facility] MRI [address] [place] [phone] Maribel Kitchen MD [address] [place] [address] Discharge Disposition: Home or Self [...] 11/03/2021 vitamin D, ergocalciferol, (DRISDOL) 1.25 MG (68406 UT) capsuleIndications:Vi tamin D Deficiency Take 1 [...] steatosis. Report dictated by Abran Farr MD (associate professor of radiology). This report was approved ??by Abran Farr [...] steatosis. Report dictated by Abran Farr MD (associate professor of radiology). This report was approved by Abran Farr on 10/22/2021 2:40 PM . I, Dr. DAGOBERTO HANSEN have personally reviewed and interpreted this examination/study. This report was electronically signed by DAGOBERTO HANSEN on 10/22/2021 2:44PM . Maribel Kitchen MD MR ORDERABLES * CREATININE - POCT INTERFACED (10/22/2021 1:17 PM CDT) Creatinine POCT 0.74 0.30 - 1.30 mg/dL 10/22/2021 1:19 PM CDT [facility] eGFR >90 >90 mL/min/1.7 3 m2 10/22/2021 1:19 PM CDT [facility] Blood BLOOD SPECIMEN / Unknown 10/22/2021 1:17 PM CDT 10/22/2021 1:19 PM CDT Maribel Kitchen MD LAB - POINT OF CARE ORDERABLES [facility] [address] [place] [address], [facility] [phone] documented in this encounter Visit Diagnoses Diagnosis [...] mL documented in this encounter Care Teams Lye Bath Operator Relationship Specialty Start Date End Date Jonelle Elam MD [address] [place] [address] [place] [phone] PCP - General Family Medicine 10/24/18 Manju Rainey DO [address] [place] [address] Bariatrics 08/11/20 documented as of this encounter
--- OUTSIDE RECORDS SUMMARY | 2024-04-14 20:11 | XMS_ITS | Encounter Summary ---
Author Organization [facility] Address [address] [place] [address] Care Team Providers Care Wood Fence Erector Name Role Phone Jonelle Elam MD Primary Care Provider [phone] Manju Rainey DO Unavailable [phone] Encounter Details Date Type Department Care Team (Late st Contact Info) Description 01/28/2021 Orders Only [facility] - [address], [place] [phone] Gabriella Moon, RN Liver lesion Social History [...] liver documented in this encounter Care Teams Wood Fence Erector Relationship Specialty Start Date End Date Jonelle Elam MD [address] [place] [address] PCP - General Family Medicine 10/24/18 Manju Rainey DO [address] [place] [address] Bariatrics 08/11/20 documented as of this encounter
--- OUTSIDE RECORDS SUMMARY | 2024-04-14 20:11 | XMS_ITS | Encounter Summary ---
Author Organization [facility] Address [address] [place] [address] Care Team Providers Care Baker Name Role Phone Jonelle Elam MD Primary Care Provider [phone] Reason for Referral * Radiology Services (Routine) - Closed Specialty Diagnoses / Procedures Referred By Ritika bonner Referred To Contact MRI Diagnoses Liver lesion Procedures MRI ABDOMEN WWO CONTRAST Maribel Kitchen MD [address] [place] [address] [facility] Mri [address] [place] [address] Referral ID Status Reason Start Date Expiration Date Visits Re quested Visits Authorized [id number] Closed 04/05/2021 04/05/2022 1 1 ER CONTROL ROOM OPERATOR Encounter Details Date Type Department Care Team (Late st Contact Info) Description 05/06/2020 Orders Only [facility] GI [address] [place], [place] [phone] Maribel Kitchen MD [address] [place] [address] Liver lesion Social History Tobacco [...] COVID-19? No / Unsure 04/17/2020 2:31 PM BOILER CONTROL ROOM OPERATOR documented as of this encounter Plan [...] liver documented in this encounter Care Teams Baker Relationship Specialty Start Date End Date Jonelle Elam MD [address] [place] [address] ROG[place]IO Reinoso [address] PCP - General Family Medicine 10/24/18 documented as of this encounter
--- OUTSIDE RECORDS SUMMARY | 2024-04-14 20:11 | XMS_ITS | Encounter Summary ---
Author Organization [facility] Address [address] [facility] [place] [address] Care Team Providers Care Certified Ophthalmic Medical Technician Name Role Phone Jonelle Elam MD Primary Care Provider [phone] Manju Rainey DO Unavailable Reason for Visit * Reason Onset Date Comments LABS ONLY 09/10/2020 Encounter Details Date Type Department Care Team (Late st Contact Info) Description 09/10/2020 Telephone [facility] Weight Management Services [address] [place] [phone] Manju Rainey, DO [address] [place] [address] LABS ONLY Social History Tobacco [...] on filedocumented in this encounter Care Teams Certified Ophthalmic Medical Technician Relationship Specialty Start Date End Date Jonelle Elam MD [address] [place] [address] PCP - General Family Medicine 10/24/18 Manju Rainey DO [address] [place] [address] Bariatrics 08/11/20 documented as of this encounter
--- OUTSIDE RECORDS SUMMARY | 2024-04-14 20:11 | XMS_ITS | Encounter Summary ---
Author Organization [facility] Address [address] [facility] [place] [address] Care Team Providers Care Natural Gas Engineer Name Role Phone Jonelle Elam MD Primary Care Provider [phone] Reason for Visit * Reason Onset Date Comments Appointment 05/21/2020 Encounter Details Date Type Department Care Team (Late st Contact Info) Description 05/21/2020 Telephone [facility] Weight Management Services [address] [place] [phone] Manju Rainey, [address] [place], [place] [phone] Appointment Social History Tobacco Use Types Packs/Day [...] Ella Harley CNA - 05/21/2020 11:02 AM RESEARCH DEVELOPMENT DIRECTOR Patient was seen on 05/20/20 by . Left message for her to return call to clinic to schedule1 month follow up. ARCH DEVELOPMENT DIRECTOR documented in this encounter Plan of Treatment Not on file documented as of this encounter Visit Diagnoses Not on filedocumented in this encounter Care Teams Natural Gas Engineer Relationship Specialty Start Date End Date Jonelle Elam MD [address] [place] [address] PCP - General Family Medicine 10/24/18 documented as of this encounter
--- OUTSIDE RECORDS SUMMARY | 2024-04-14 20:11 | XMS_ITS | Encounter Summary ---
Author Organization [facility] Address [address] [place] [address] Care Team Providers Care Rack Puller Name Role Phone Jonelle Elam MD Primary Care Provider Manju Rainey DO Unavailable [phone] Reason for Visit * Reason Comments Bariatric Surgery Pre-op Instruction Encounter Details Date Type Department Care Team (Late st Contact Info) Description 01/19/2021 9:30 AM CDT Office Visit [facility] Management Services [address] [place] [phone] Carmen Lee, INSURANCE UNDERWRITER-HOTEL RECREATIONAL FACILITIES MANAGER [address] [place] [address] BMI 50.0-59.9, adult (HCC) (Primary Dx); Class [...] from the original note were not included. [facility] [address] [address] PH: [phone] , Date of encounter: 01/19/2021 Provider: Carmen Lee APRN-HOTEL RECREATIONAL FACILITIES MANAGER Patient: Deya Campbell CSN: [id number] Specialty: Bariatric Surgery Date of : 1995 [...] in January 2020; she continued following with [facility] [place] until March 2020 when she began following up with Dr.Esther Rainey whom she followed with until October 2020 at which time she requested to be seen by Dr. Bojorquez at [facility] [place]. Patient is non-smoker, reports she has done [...] ??? vitamin D, ergocalciferol, (DRISDOL) 1.25 MG (23539 UT) capsule Take 1 (one) capsule by [...] disease) Patient follows with Dr. Maribel Kitchen, ux design lead, at [facility]; per previous scan liver shows [...] Will defer to primary care provider / restaurant expeditor for continued monitoring and management. (F43.23) Adjustment [...] (pediatric) documented in this encounter Care Teams Rack Puller Relationship Specialty Start Date End Date Jonelle Elam MD [address] [place] [address] [place] [address] PCP - General Family Medicine 10/24/18 Manju Rainey DO [address] [place] [address] Bariatrics 08/11/20 documented as of this encounter
--- OUTSIDE RECORDS SUMMARY | 2024-04-14 20:11 | XMS_ITS | Encounter Summary ---
Author Organization [facility] Address [address] [facility] [place] [address] Care Team Providers Care Senior Business Intelligence Analyst Name Role Phone Jonelle Elam MD Primary Care Provider Manju Rainey DO Unavailable [phone] Encounter Details Date Type Department Care Team (Late st Contact Info) Description 01/29/2021 Orders Only [facility] [address] [place] [address] Keith Bojorquez MD [address] [place] [address] Morbid obesity (HCC) Social History [...] obesity documented in this encounter Care Teams Senior Business Intelligence Analyst Relationship Specialty Start Date End Date Joenlle Elam MD [address] [place] [address] [place] [address] PCP - General Family Medicine 10/24/18 Manju Rainey DO [address] [place] [address] Bariatrics 08/11/20 documented as of this encounter
--- OUTSIDE RECORDS SUMMARY | 2024-04-14 20:11 | XMS_ITS | Encounter Summary ---
Author Organization [facility] Address [address] [place] [address] Care Team Providers Care Sprinkler Inspector Name Role Phone Jonelle Elam MD Primary Care Provider [phone] Manju Rainey DO Unavailable [phone] Encounter Details Date Type Department Care Team (Latest Contact Info) Description 10/27/2020 11:00 AM CDT Procedure visit [facility] - GI [address] [place] [address], [place] [address] Tejas Mcfarlane MD [address] [place] [address] [place] [address] NAFLD (nonalcoholic fatty liver disease) ; Liver [...] patients with nonalcoholic fatty liver disease. Gastroenterology 2019;156:8925-1862. Tammi MS, Rae R, Van Carlos Alberto [...] FIB4 score (Obdulioe et al. Hepatology Communications 2019;3:3174-6115) or NAFLD Fibrosis score (Johnston et al. Clinical Gastroenterology and Hepatology 2019;17:6622-7029. from routine clinical data. 3. Liver stiffness [...] change as additional supporting data becomes available. [email or web address] documented in this encounter Plan of Treatment [...] Procedure Name Priority Date/Time Associated Diagnosis Comments AL LIVER ELASTOGRAPHY Routine 10/27/2020 11:38 AM CDT [...] obesity documented in this encounter Care Teams Sprinkler Inspector Relationship Specialty Start Date End Date Jonelle Elam MD [address] [place] [address] [place] [address] PCP - General Family Medicine 10/24/18 Manju Rainey DO [address] [place] [address] Bariatrics 08/11/20 documented as of this encounter
--- OUTSIDE RECORDS SUMMARY | 2024-04-14 20:11 | XMS_ITS | Encounter Summary ---
Author Organization [facility] Address [address] [place] [address] Care Team Providers Care Utilities Ground Worker Name Role Phone Jonelle Elam MD Primary Care Provider [phone] Manju Rainey DO Unavailable [phone] Reason for Visit * Reason Comments Establish Care Sinus Problem * Evaluate (Routine) - Closed Specialty Diagnoses / Procedures Referred By Contact Referred To Contact Otolaryngology / ENT-Otolaryngology Diagnoses Sinus problem Jeff Bird APRN-JOSETTE [address] [facility] 1L [place] [address] Hugh Ng MD [address] [facility] 2L [place] [address] Referral ID Status Reason Start Date Expiration Date V isits Requested Visits Authorized [id number] Closed Specialty Services Required 08/27/2021 08/27/2022 1 1 Encounter Details Date Type Department Care Team (Late st Contact Info) Description 10/06/2021 3:00 PM CDT Office Visit [facility] [address] [place] [address] Jeff Bird, GOVERNMENT DOCUMENTS LIBRARIAN-METAL GRADER [address] [facility] 1L [place] [address] Hugh Ng MD [address] [facility] 2L [place] [address] Frequent headaches (Primary Dx); Sinus problem; Obstructive [...] CDT Thank you for visiting [facility] Otolaryngology - Head & Neck Surgery. We [...] an appointment, please call our office at [phone] Monday through Monday from 8:00 am to4:30 pm. You can also request a routine appointment through your [employer] account. Prescription Refills Contact your pharmacy to [...] the medical exchange at and ask the winch truck operator to page the ENT physician coldfusion. *Caller ID blocking service will need to be turned off for your call to be returned. We also specialize in Hearing Aids, Allergy testing, swallowing disorders, voice problems, cancer diagnosis, and so much more. Visit our website at [email or web address] for information about our practice and [...] once daily as needed for Migraine 8 [id number] ??? topiramate (TOPAMAX) 100 MG tablet Take 100 mg by mouth 2 times daily (Patient not taking: No sig reported) ??? vitamin D, cholecalciferol, 50 MCG (2000 UT) tablet Take 2,000 Units by mouth once daily ??? vitamin D, ergocalciferol, (DRISDOL) 1.25 MG (87957 UT) capsule Take 1 (one) capsule by [...] an audiogram for evaluation of hearing loss [facility] Medical Student I have verified the documentation [...] (pediatric) documented in this encounter Care Teams Utilities Ground Worker Relationship Specialty Start Date End Date Jonelle Elam MD [address] [place] [address] [place] [address] PCP - General Family Medicine 10/24/18 Manju Rainey DO [address] [place] [address] Bariatrics 08/11/20 documented as of this encounter
--- OUTSIDE RECORDS SUMMARY | 2024-04-14 20:11 | XMS_ITS | Encounter Summary ---
Author Organization [facility] Address [address] [facility] [place] [address] Care Team Providers Care Environmental Safety Specialist Name Role Phone Jonelle Elam MD Primary Care Provider Manju Rainey DO Unavailable [phone] Encounter Details Date Type Department Care Team (Late st Contact Info) Description 02/08/2021 Orders Only [facility] Weight Management Services [address] [place] [phone] Carmen Lee, PHARMACOLOGY TEACHER-SUGGESTION CLERK [address] [place] [address] Pre-operative laboratory examination Social History Tobacco Use [...] examination documented in this encounter Care Teams Environmental Safety Specialist Relationship Specialty Start Date End Date Jonelle Elam MD [address] [place] [address] PCP - General Family Medicine 10/24/18 Manju Rainey DO [address] [place] [address] Bariatrics 08/11/20 documented as of this encounter
--- OUTSIDE RECORDS SUMMARY | 2024-04-14 20:11 | XMS_ITS | Encounter Summary ---
Author Organization [facility] Address [address] [place] [address] Care Team Providers Care Laboratory Helper Name Role Phone Jonelle Elam MD Primary Care Provider Manju Rainey DO Unavailable [phone] Encounter Details Date Type Department Care [...] Coronavirus / COVID-19? Yes 04/27/2021 10:37 AM FIELD MARKETING DIRECTOR documented as of this encounter Plan [...] on filedocumented in this encounter Care Teams Laboratory Helper Relationship Specialty Start Date End Date Jonelle Elam MD [address] [place] [address] [place] [address] PCP - General Family Medicine 10/24/18 Manju Rainey DO [address] [place] [address] Bariatrics 08/11/20 documented as of this encounter
--- OUTSIDE RECORDS SUMMARY | 2024-04-14 20:11 | XMS_ITS | Encounter Summary ---
Author Organization [facility] Address [address] [place] [address] Care Team Providers Care Tray Packer Name Role Phone Jonelle Elam MD Primary Care Provider [phone] Manju Rainey DO Unavailable [phone] Reason for Referral * Radiology Services (Routine) - Closed Specialty Diagnoses / Procedures Referred By Ritika bonner Referred To Contact MRI Diagnoses Liver lesion Procedures MRI ABDOMEN WWO CONTRAST Maribel Kitchen MD [address] [place] [address] [facility] Mri [address] [place] [address] Referral ID Status Reason Start Date Expiration Date Visits Re quested Visits Authorized [id number] Closed 10/14/2021 01/12/2022 1 1 Encounter Details Date Type Department Care Team (Late st Contact Info) Description 01/28/2021 Orders Only [facility] - GI [address] [facility], [place] [address] Gabriella Moon, RN Liver lesion [...] dictated by Abran Farr MD (vice president of recruiting). This report was approved ??by Abran Farr [...] dictated by Abran Farr MD (vice president of recruiting). This report was approved by Abran Farr [...] liver documented in this encounter Care Teams Tray Packer Relationship Specialty Start Date End Date Jonelle Elam MD [address] [place] [address] [place] [phone] PCP - General Family Medicine 10/24/18 Manju Rainey DO [address] [place] [address] Bariatrics 08/11/20 documented as of this encounter
--- OUTSIDE RECORDS SUMMARY | 2024-04-14 20:11 | XMS_ITS | Encounter Summary ---
Author Organization [facility] Address [address] [facility] [place] [address] Care Team Providers Care Moving Picture Producer Name Role Phone Jonelle Elam MD Primary Care Provider [phone] Manju Rainey DO Unavailable [phone] Encounter Details Date Type Department Care Team (Late st Contact Info) Description 01/19/2021 10:00 AM CDT Office Visit [facility] Weight Management Services [address] [place] [address] Morbid obesity (HCC) (Primary Dx) Social [...] just drank a shake at a birthday libertarian instead of pizza because knows that pizza [...] obesity documented in this encounter Care Teams Moving Picture Producer Relationship Specialty Start Date End Date Jonelle Elam MD [address] [place] [address] [place] [address] PCP - General Family Medicine 10/24/18 Manju Rainey DO [address] [place] [address] Bariatrics 08/11/20 documented as of this encounter
--- OUTSIDE RECORDS SUMMARY | 2024-04-14 20:11 | XMS_ITS | Encounter Summary ---
Author Organization [facility] Address [address] [place] [address] Care Team Providers Care Forklift Supervisor Name Role Phone Jonelle Elam MD Primary Care Provider [phone] Encounter Details Date Type Department Care Team (Late st Contact Info) Description 05/15/2020 Orders Only [facility] Weight Management Services [address] [place] [phone] Manju Rainey DO [address] [place], [place] [address] Vitamin D deficiency Social History Tobacco Use [...] COVID-19? No / Unsure 04/17/2020 2:31 PM BASKET PERSON documented as of this encounter Plan of Treatment Not on file documented as of this encounter Visit Diagnoses Diagnosis Vitamin D deficiency documented in this encounter Care Teams Forklift Supervisor Relationship Specialty Start Date End Date Jonelle Elam MD [address] [place] [address] [place] [address] PCP - General Family Medicine 10/24/18 documented as of this encounter
--- OUTSIDE RECORDS SUMMARY | 2024-04-14 20:11 | XMS_ITS | Encounter Summary ---
Author Organization [facility] Address [address] [place] [address] Care Team Providers Care Audio Installer Name Role Phone Jonelle Elam MD Primary Care Provider [phone] Manju Rainey DO Unavailable [phone] Reason for Visit * Reason Onset Date Comments General 02/04/2021 Encounter Details Date Type Department Care Team (Late st Contact Info) Description 02/04/[address] [facility] Weight Management Services [address] [place] [address] Keith Bojorquez MD [address] [place] [address] General Social History Tobacco Use [...] and surgery is scheduled for 02/17/2021 in [place]. Patient aware of all preop appointments and instructions have been sent to them through [facility]. Pt is aware that COVID test IS [...] on filedocumented in this encounter Care Teams Audio Installer Relationship Specialty Start Date End Date Jonelle Elam MD [address] [place] [address] [place] [address] PCP - General Family Medicine 10/24/18 Manju Rainey DO [address] [place] [address] Bariatrics 08/11/20 documented as of this encounter
--- OUTSIDE RECORDS SUMMARY | 2024-04-14 20:11 | XMS_ITS | Encounter Summary ---
Author Organization [facility] Address [address] [facility] [place] [address] Care Team Providers Care Groundskeeper Porter Name Role Phone Jonelle Elam MD Primary Care Provider Manju Rainey DO Unavailable Encounter Details Date Type Department Care Team (Late st Contact Info) Description 02/09/2021 11:59 PM GAS ANALYST Anesthesia Event [facility] [address] [place], [place] [address] Mary Long MD [address] [place], [place] [address] Anesthesia Record Procedure Summary Procedure Name Responsible [...] procedural Anesthetic Plan was discussed with the DECONTAMINATOR. BMI, Height, Weight Tobacco History Estimated body [...] for the 02/09/21 encounter (Hospital Encounter) with [facility] PREADMISSION Medication Sig Last Dose ??? ascorbic [...] 19 (12/02/2020) eGFR by CKD-EPI >90 (12/02/2020) ANALYST documented in this encounter Plan of [...] on filedocumented in this encounter Care Teams Groundskeeper Porter Relationship Specialty Start Date End Date Jonelle Elam MD [address] [place] [address] [place] [address] PCP - General Family Medicine 10/24/18 Manju Rainey DO [address] [place] [address] Bariatrics 08/11/20 documented as of this encounter
--- OUTSIDE RECORDS SUMMARY | 2024-04-14 20:11 | XMS_ITS | Encounter Summary ---
Author Organization [facility] Address [address] [facility] [place] [address] Care Team Providers Care Director Of Midwifery/Staff Midwife Name Role Phone Jonelle Elam MD Primary Care Provider Manju Rainey DO Unavailable Reason for Visit * Reason Onset Date Comments Appointment 09/10/2020 Encounter Details Date Type Department Care Team (Late st Contact Info) Description 09/10/2020 Telephone [facility] Weight Management Services [address] [place] [phone] Manju Rainey, DO [address] [place] [address] Appointment Social History Tobacco Use [...] Informed pt this appt is scheduled in HiV ofc, if she needs CNT ofc, she will need to r/s. Pt verbalized understanding. documented in this encounter Plan of Treatment Not on file documented as of this encounter Visit Diagnoses Not on filedocumented in this encounter Care Teams Director Of Midwifery/Staff Midwife Relationship Specialty Start Date End Date Jonelle Elam MD [address] [place] [address] [place] [phone] PCP - General Family Medicine 10/24/18 Manju Rainey DO [address] [place] [address] Bariatrics 08/11/20 documented as of this encounter
--- OUTSIDE RECORDS SUMMARY | 2024-04-14 20:11 | XMS_ITS | Encounter Summary ---
Author Organization [facility] Address [address] [place] [address] Care Team Providers Care Ferry Terminal Agent Name Role Phone Jonelle Elam MD Primary Care Provider [phone] Manju Rainey DO Unavailable [phone] Reason for Referral * Evaluate & Treat (Routine) - Closed Specialty Diagnoses / Procedures Referred By Ritika bonner Referred To Contact Neurology Diagnoses Nonintractable headache, unspecified chronicity pattern, unspecified headache type Linda Gurrola APRN-CNP [facility] 3[facility] [place] [address] Aff Slu Neur [facility] [address] [facility] [place] [address] Referral ID Status Reason Start Date Expiration Date V isits Requested Visits Authorized [id number] Closed Specialty Services Required 07/01/2021 07/01/2022 1 1 Reason for Visit * Reason Comments Liver Problem NAFLD Encounter Details Date Type Department Care Team (Late st Contact Info) Description 07/01/2021 3:30 PM CDT Office Visit [facility] - GI [address] [facility] [place] [address] Linda Gurrola APRN-CNP [facility]5 [facility] 3[facility] [place] [address] Nonintractable headache, unspecified chronicity pattern, unspecified headache [...] Body Mass Index 59.87 03/24/2021 3:00 PM 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 Campbell in [facility] at [facility] today for follow up visit regarding: Past [...] ). 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 She admits to [...] ??? vitamin D, ergocalciferol, (DRISDOL) 1.25 MG (89243 UT) capsule Take 1 (one) capsule by [...] months. Copy to: Jonelle Elam MD [address] [place] [phone] [facility] Division of Gastroenterology and Hepatology Collaborating physician: Dr. Farhad Mesa July 05, 2021 Orders Placed This Encounter ??? Ref to Neurology - [facility] documented in this encounter Plan of Treatment Scheduled Referrals Name Type Priority Associated Diagnoses Orde r Schedule Ref to Neurology - [facility] Outpatient Referral Routine Nonintractable headache, unspecified chronicity [...] (HCC) documented in this encounter Care Teams Ferry Terminal Agent Relationship Specialty Start Date End Date Jonelle Elam MD [address] [place] [address] PCP - General Family Medicine 10/24/18 Manju Rainey DO [address] [place] [address] Bariatrics 08/11/20 documented as of this encounter
--- OUTSIDE RECORDS SUMMARY | 2024-04-14 20:11 | XMS_ITS | Encounter Summary ---
Author Organization [facility] Address [address] [facility] [place] [address] Care Team Providers Care Actuarial Consultant Name Role Phone Jonelle Elam MD Primary Care Provider Manju Rainey DO Unavailable [phone] Reason for Visit * Reason Onset Date Comments Appointment 04/01/2021 Encounter Details Date Type Department Care Team ([facility] st Contact Info) Description 04/01/2021 Telephone [facility] Weight Management Services [address] [place] [phone] Manju Rainey, [address] [place], [place] [address] Appointment Social History Tobacco Use Types Packs/Day [...] in regards to patient's desire to wait. INE PAN GREASER documented in this encounter Plan of Treatment [...] on filedocumented in this encounter Care Teams Actuarial Consultant Relationship Specialty Start Date End Date Jonelle Elam MD [address] [place] [address] [place] [phone] PCP - General Family Medicine 10/24/18 Manju Rainey DO [address] [place] [address] Bariatrics 08/11/20 documented as of this encounter
--- OUTSIDE RECORDS SUMMARY | 2024-04-14 20:11 | XMS_ITS | Encounter Summary ---
Author Organization [facility] Address [address] [facility] [place] [address] Care Team Providers Care Cellulose Insulation Helper Name Role Phone Jonelle Elam MD Primary Care Provider Manju Rainey DO Unavailable [phone] Reason for Referral * Other Medical (Routine) - Closed Specialty Diagnoses / Procedures Referred By Ritika bonner Referred To Contact Nutrition Services Diagnoses Morbid obesity (HCC) Keith Bojorquez MD [address] [place] [address] Referral ID Status Reason Start Date Expiration Date V isits Requested Visits Authorized [id number] Closed Specialty Services Required 11/25/2020 11/25/2021 5 5 Reason for Visit * Reason Comments Morbid Obesity Patient is here for initial bariatric visit. Encounter Details Date Type Department Care Team (Late st Contact Info) Description 11/25/2020 9:00 AM CDT Office Visit [facility] Weight Management Services [address] [place] [phone] Keith Bojorquez MD [address] [place] [phone] Morbid obesity (HCC) (Primary Dx); Fatty liver; [...] note were not included. Weight Management Services [address] [address] PH: [phone] , Date of encounter: 11/25/2020 Provider: Keith Bojorquez MD Patient: Deya Campbell CSN: [id number] Specialty: Bariatric Surgery Date of : 1995 [...] her refractorymorbid obesity and failure to achieve detention weight loss, she was seen at [facility] Services at [place], [place]. Patient has requested Sleeve Gastrectomy. [...] trying to exercise and not eating right [place] body weight: 52.4 kg (115 lb 8.3 [...] you have an unusual work schedule? na [place] Sleepiness Scale total points: 9 Past Medical [...] Gatherings with Friends and Family: ??? Attends [employer]: ??? Active Member of Clubs or [...] ??? vitamin D, ergocalciferol, (DRISDOL) 1.25 MG (30037 UT) capsule Take 1 (one) capsule by [...] RBC, HGB, HCT, PLTCOUNT in the last 89804 hours. No results for input(s): SODIUM, POTASSIUM, CO2, BUN, CREATININE in the last 90993 hours. Invalid input(s): CLORIDE No results for input(s): GLUCOSE in the last 02735 hours. Recent Labs Component Name 04/12/19 1514 01/02/19 1236 AST 16 20 ALT 12 24 No results for input(s): LDL, HDL, TRIG, TSH in the last 50264 hours. No results for input(s): HGBA1C in the last 52164 hours. Some lab results will be in [...] counseling and patient was encouraged to meet modern and contemporary art curator to optimize physical exercises. Mandatory weight loss [...] any vitamin/mineral deficiency. Patient certainly meets National [place] of Health criteria for bariatric surgery, that [...] exercise, diet, and regular close follow-up with briar wood sorter, behavioral therapist and surgical team. In addition, [...] loss outcomes and management of short and detention complications. I have discussed at great length, [...] Patient has been also discussed the potential detention, metabolic, nutritional, and mineral derangements complications. Patient [...] comorbid medical conditions. Follow up: Will see me/PA/SQUEEZER OPERATOR in 1 months. Keith Bojorquez MD [...] VITAMIN D 25-HYDROXY (12/02/2020 2:34 PM CDT) [facility] Vitamin D, 25 Hydroxy 20.0(L) 30.0 - 80.0 ng/mL 12/02/2020 4:17 PM CDT [facility] Comment: The recommendations for 25-Hydroxy Vitamin [...] - CHEMISTRY KACY HICKS Performing Organization Address City/[facility]/ZIP Co de Phone Number [facility] [address] [place] [address], [facility] [phone] * VITAMIN B1 (12/02/2020 2:34 PM CDT) Pathologist [facility] Vitamin B1 Whole Blood 82 70 - 180 nmol/L 12/07/2020 10:09 AM CDT [facility] ([facility]) Comment: INTERPRETIVE INFORMATION: Vitamin B1, Whole Blood This assay measures the concentration of thiamine diphosphate (TDP), the primary active form of vitamin B1. Approximately 90 percent of vitamin B1 present in whole blood is TDP. Thiamine and thiamine monophosphate, which comprise the remaining 10 percent, are not measured. This test was developed and its performance characteristics determined by [facility]. It has not been cleared or approved by the US Food and Drug Administration. This test was performed in a CLIA certified laboratory and is intended for clinical purposes. Performed By: [facility] [address] [place] [address] Coloring Room Man: Amena Guerrero MD Blood BLOOD SPECIMEN / Unknown Lab Venipuncture / Unknown 12/02/2020 2:34 PM CDT 12/02/2020 3:18 PM CDT Keith Bojorquez MD LAB - CHEMISTRY KACY HICKS Performing Organization Address City/[facility]/ZIP Co de Phone Number [facility] [employer] ([facility]) [address] * (ABNORMAL) IRON + TRANSFERRIN PANEL (12/02/2020 2:34 PM CDT) Pathologist [facility] Iron 46 40 - 150 ug/dL 12/02/2020 4:48 PM CDT [facility] Transferrin 301 174 - 382 mg/dL 12/02/2020 4:48 PM CDT [facility] Transferrin Saturation % 12(L) 16 - 50 % 12/02/2020 4:48 PM CDT [facility] TIBC Calculated 376 240 - 450 ug/dL 12/02/2020 4:48 PM CDT [facility] Blood BLOOD SPECIMEN / Unknown Lab Venipuncture / Unknown 12/02/2020 2:34 PM CDT 12/02/2020 3:17 PM CDT Keith Bojorquez MD LAB - CHEMISTRY KACY HICKS Performing Organization Address City/[facility]/ZIP Co de Phone Number [address] [address], [facility] [phone] * MAGNESIUM BLOOD (12/02/2020 2:34 PM CDT) Magnesium 1.9 1.6 - 2.6 mg/dL 12/02/2020 3:44 PM CDT [facility] Blood BLOOD SPECIMEN / Unknown Lab Venipuncture / Unknown 12/02/2020 2:34 PM CDT 12/02/2020 3:18 PM CDT Keith Bojorquez MD LAB - CHEMISTRY KACY HICKS Performing Organization Address City/[facility]/ZIP Co de Phone Number [address] [address], [facility] [phone] * (ABNORMAL) LIPID PROFILE (12/02/2020 2:34 PM CDT) Cholesterol Total 178 <200 mg/dL 12/02/2020 3:44 PM CDT [facility] HDL 53 >40 mg/dL 12/02/2020 3:44 PM CDT [facility] Comment: ATP III Classification of HDL Cholesterol: ? <40 mg/dL: ??Considered a major risk factor. ? >60 mg/dL: ??Considered a negative risk factor. ? LDL Calculated 88 <100 mg/dL 12/02/2020 3:44 PM CDT [facility] Comment: ATP III Classification of LDL Cholesterol: ?<100 mg/dL: ??Optimal ? 100 - 129 mg/dL: ??Near Optimal/Above Optimal ? 130 - 159 mg/dL: ??Borderline High ? 160 - 189 mg/dL: ??High ?>190 mg/dL: ??Very High ? Triglycerides 186(H) <150 mg/dL 12/02/2020 3:44 PM CDT [facility] Comment: ATP III Classification of Triglycerides: ?<150 mg/dL: ??Normal ? 150 - 199 mg/dL: ??Borderline High ? 200 - 400 mg/dL: ??High ?>500 mg/dL: ??Very High Blood BLOOD SPECIMEN / Unknown Lab Venipuncture / Unknown 12/02/2020 2:34 PM CDT 12/02/2020 3:18 PM CDT Keith Bojorquez MD LAB - CHEMISTRY [facility] Organization Address City/State/ZIP Co de Phone Number [facility] [address] [place] [address], [facility] [phone] * HEMOGLOBIN A1C (12/02/2020 2:34 PM CDT) Hemoglobin A1c 5.7 4.4 - 6.3 % 12/03/2020 9:24 AM CDT [facility] Estimated Average Glucose 117 mg/dL 12/03/2020 9:24 AM CDT [facility] Comment: HbA1c Interpretation: Treatment target values recommended by ADA and other clinical organizations should be used to evaluate metabolic control in patients. Treatment Target Values: Normal : < 5.7% Pre-diabetes: 5.7-6.4% Diabetes: Equal to or greater than 6.5% Reference: [place] Diabetes Association Standards of Care in Diabetes -2014 In patients 70 years and older consider HbA1c target range of 7.0-7.5% Reference: ??Diabetes Mellitus in Older People: Position Statement on behalf of the International Association of Gerontology and Geriatrics (IAGG), the Diabetes Working Libertarian for Older People (EDWPOP), and the International Task Force of Experts in Diabetes. ??Joe García, et al. J [place] Medical Directors Association. 2012 Test results diagnostic of diabetes should be repeated for confirmation. The Sebia Capillary 2 assay for the measurement of HbA1c is a National Glycohemoglobin Standardization Program (NGSP)certified method. Blood BLOOD SPECIMEN / Unknown Lab Venipuncture / Unknown 12/02/2020 2:34 PM CDT 12/02/2020 3:17 PM CDT Keith Bojorquez MD LAB - CHEMISTRY KACY HICKS [facility] [address] [place] [address], [place] [phone] * FERRITIN (12/02/2020 2:34 PM CDT) Ferritin 31 13 - 204 ng/mL 12/02/2020 5:06 PM CDT [facility] Blood BLOOD SPECIMEN / Unknown Lab Venipuncture / Unknown 12/02/2020 2:34 PM CDT 12/02/2020 3:17 PM CDT Keith Bojorquez MD LAB - CHEMISTRY KACY HICKS [address] [address], [place] [phone] documented in this encounter Visit Diagnoses Diagnosis Morbid obesity (HCC)- Primary Morbid obesity Fatty liver Other chronic nonalcoholic liver disease Snoring Other dyspnea and respiratory abnormality Hypertension, unspecified type documented in this encounter Care Teams Cellulose Insulation Helper Relationship Specialty Start Date End Date Jonelle Elam MD [address] [place] [address] ROGELIO Reinoso [phone] PCP - General Family Medicine 10/24/18 Manju Rainey DO [address] [place] [address] Bariatrics 08/11/20 documented as of this encounter
--- OUTSIDE RECORDS SUMMARY | 2024-04-14 20:11 | XMS_ITS | Encounter Summary ---
Author Organization [facility] Address [address] [facility] [place] [address] Care Team Providers Care Level Vial Inspector Name Role Phone Jonelle Elam MD Primary Care Provider [phone] Reason for Visit * Reason Comments Obesity Follow Up Encounter Details Date Type Department Care Team (Late st Contact Info) Description 05/20/2020 2:30 PM HAZMAT TANKER DRIVER Video Visit [facility] Weight Management Services [address] [place] [phone] Manju Rainey, DO [address] [place], [place] [phone] Obesity, morbid, BMI 50 or higher (HCC) [...] Comments Blood Pressure 138/94 05/20/2020 2:15 PM HAZMAT TANKER DRIVER per pt Pulse - - Temperature - - Respiratory Rate - - Oxygen Saturation - - Inhaled Oxygen Concentration - - Weight 137.5 kg (303 lb 3.2 oz) 05/20/2020 2:15 PM HAZMAT TANKER DRIVER per pt Height 158.4 cm (5' 2.36 ) 05/20/2020 2:15 PM CS T Body Mass Index 54.81 05/20/2020 2:15 PM HAZMAT TANKER DRIVER documented in this encounter Patient Instructions * Patient Instructions* Manju Rainey, - 05/20/2020 3:14 PM HAZMAT TANKER DRIVER Images from the original note were not included. Patient Education Weight Management MEDICAL PRACTITIONERS: Why it is important to manage your [...] foods. Some examples of high-fat foods include british fries, doughnuts, ice cream, and cakes. ?? [...] on your weight loss goals. ?? Copyright [employer] 2020 Information is for End User's use only and may not be sold, redistributed or otherwise used for commercial purposes. All illustrations and images included in CareNotes?? are the copyrighted property of [employer], [employer]. or [employer] The above information is an medication aid only. It is not intended as medical advice for individual conditions or treatments. Talk to your doctor, nurse or pharmacist before following any medical regimen to see if it is safe and effective for you. AT TANKER DRIVER documented in this encounter Progress Notes * Manju Rainey DO - 05/20/2020 3:14 PM CST Images from the original note were not included. [facility] [place] [address] . . Telemedicine Note Today's visit was conducted virtually due to COVID-19 countermeasures. The patient has given verbalconsent to have today's visit conducted by this same means with treatment provided remotely. The patient verbally consents to the billing and collection practices of [facility]. Patient location: Home This encounter was performed using: audio and video Time spent direct and indirect care: : 32 minutes Date of encounter: 05/20/2020 Provider: Manju Rainey DO Patient: Deya Campbell CSN: [id number] Specialty: Bariatrics. Date of : 1995 Visit [...] you have an unusual work schedule? na [place] Sleepiness Scale total points: 9 Past Medical [...] file Gets together: Not on file Attends mandaeism service: Not on file Active member of [...] Manju Rainey DO CC: Jonelle Elam MD AT TANKER DRIVER documented in this encounter Plan of Treatment Not on file documented as of this encounter Visit Diagnoses Diagnosis Obesity, morbid, BMI 50 or higher (HCC)- Primary Vitamin D deficiency Essential hypertension Gastroesophageal reflux disease, unspecified whether esophagitis present NAFLD (nonalcoholic fatty liver disease) Other chronic nonalcoholic liver disease Anxiety Anxiety state, unspecified documented in this encounter Care Teams Level Vial Inspector Relationship Specialty Start Date End Date Jonelle Elam MD [address] [place] [address] [place] [phone] PCP - General Family Medicine 10/24/18 documented as of this encounter
--- OUTSIDE RECORDS SUMMARY | 2024-04-14 20:11 | XMS_ITS | Encounter Summary ---
Author Organization [facility] Address [address] [place] [address] Care Team Providers Care Hand Bunch Maker Name Role Phone Jonelle Elam MD Primary Care Provider Manju Rainey DO Unavailable [phone] Encounter Details Date Type Department Care Team (Late st Contact Info) Description 02/09/2021 9:45 AM ADMITTED ATTORNEYS - 02/09/2021 11:59 PM [facility] Hospital Encounter [facility] PREADMISSION [address] [place] [address] Keith Bojorquez MD [facility] [place] [address] Discharge Disposition: Home or Self [...] Comments Blood Pressure 134/76 02/09/2021 10:11 AM ADMITTED ATTORNEYS Pulse 63 02/09/2021 10:11 AM ADMITTED ATTORNEYS Temperature 36.5 ??C (97.7 ??F) 02/09/2021 10:[address] Respiratory Rate - - Oxygen Saturation 100% 02/09/2021 10:11 AM ADMITTED ATTORNEYS Inhaled Oxygen Concentration - - Weight 142.9 kg (315 lb) 02/09/2021 10:11 AM ADMITTED ATTORNEYS Height 157.5 cm (5' 2 ) 02/09/2021 10:11 AM ADMITTED ATTORNEYS Body Mass Index 57.61 02/09/2021 10:11 AM ADMITTED ATTORNEYS documented in this encounter Medications at Time [...] Take by intrauterine route. 11/03/2021 Probiotic Product (Instacoach) capsule Take 1 (one) capsule by mouth [...] 11/03/2021 vitamin D, ergocalciferol, (DRISDOL) 1.25 MG (33291 UT) capsuleIndications:Vi tamin D Deficiency Take 1 [...] said will have test performed at an [facility] Clinic or Hospital. Instructed test should be [...] call [facility] surgery [phone]. Dr Molina in to see patient, surgery [...] all questions answered and patient verbalized understanding. TTED ATTORNEYS documented in this encounter Plan of Treatment [...] CARDIAC EKG ORDER 02/10/2021 10: 19 AM ADMITTED ATTORNEYS EKG 12-LEAD Routine 02/09/2021 11:08 AM ADMITTED ATTORNEYS Central sleep apnea due to medical condition BLOOD TYPE VERIFICATION Routine 02/09/2021 11:07 AM ADMITTED ATTORNEYS TYPE + SCREEN PANEL STAT 02/09/2021 1 1:04 AM ADMITTED ATTORNEYS Pre-op testing documented in this encounter Results * CARDIAC EKG ORDER (02/10/2021 10:19 AM ADMITTED ATTORNEYS) Narrative 02/10/2021 10:19 AM ADMITTED ATTORNEYS Ordered by an unspecified provider. Scanned Document CARDIAC SERVICES ORD ERABLES * EKG 12-LEAD (02/09/2021 11:08 AM ADMITTED ATTORNEYS) Ventricular Rate 67 BPM [facility] Atrial Rate 67 BPM [facility] P-R Interval 172 ms [facility] QRS Duration ms 94 ms [facility] Q-T Interval ms 404 ms [facility] QTC Calculation (Bezet) 426 ms [facility] MUSE Calculated P [place] 24 degrees [facility] MUSE Calculated R [place] 14 degrees [facility] MUSE Calculated T [place] 16 degrees [facility] MUSE Interpretation EKG NORMAL SINUS RHYTHM NORMAL ECG Confirmed by MD ELSA, KULWANT ([id number]), design editor ZELALEM ROBLES ([id number]) on 02/09/2021 2:18:40 PM [facility] MUSE 02/09/2021 11:0 8 AM ADMITTED ATTORNEYS 02/09/2021 2:18 PM ADMITTED ATTORNEYS Mary Long MD ECG ORDERABLE S Performing Organization Address City/[facility]/ZIP Co de Phone Number [facility] MUSE * BLOOD TYPE VERIFICATION (02/09/2021 11:07 AM ADMITTED ATTORNEYS) ABO Rh O POS 02/09/2021 11:32 AM ADMITTED ATTORNEYS [facility] BLOOD BANK Blood Bank BLOOD SPECIMEN / Unknown Lab Venipuncture / Unknown 02/09/2021 11:07 AM ADMITTED ATTORNEYS 02/09/2021 11:11 AM ADMITTED ATTORNEYS Mary Long MD LAB - BLOOD B ANK ORDERABLES Performing Organization Address [facility] Co de Phone Number [facility] BLOOD BANK [address] [place] [address] * TYPE + SCREEN PANEL (02/09/2021 11:04 AM ADMITTED ATTORNEYS) ABO Rh O POS 02/09/2021 11:52 AM ADMITTED ATTORNEYS [facility] BLOOD [facility] Antibody Screen NEG 11:52 AM ADMITTED ATTORNEYS [facility] BLOOD BANK Blood Bank BLOOD SPECIMEN / Unknown Lab Venipuncture / Unknown 02/09/2021 11:04 AM ADMITTED ATTORNEYS 02/09/2021 11:09 AM ADMITTED ATTORNEYS Mary Long MD LAB - BLOOD B ANK ORDERABLES Performing Organization Address [facility] Co de Phone Number [facility] BLOOD [facility]ANK [address] [place] [address] documented in this encounter Visit Diagnoses Diagnosis Pre-op testing- Primary Preoperative examination, unspecified Central sleep apnea due to medical condition Unspecified sleep apnea documented in this encounter Care Teams Hand Bunch Maker Relationship Specialty Start Date End Date Jonelle Elam MD [address] [place] [address] [place] [phone] PCP - General Family Medicine 10/24/18 Manju Rainey DO [address] [place], [place] [phone] (Work) Bariatrics 08/11/20 documented as of this encounter
--- OUTSIDE RECORDS SUMMARY | 2024-04-14 20:11 | XMS_ITS | Encounter Summary ---
Author Organization [facility] Address [address] [place] [address] Care Team Providers Care Hall Cleaner Name Role Phone Jonelle Elam MD Primary Care Provider [phone] Manju Rainey DO Unavailable [phone] Reason for Visit * Reason Onset Date Comments Medication Prior Auth Request 09/01/2021 Encounter Details Date Type Department Care Team (Late st Contact Info) Description 09/01/2021 Telephone [facility] [address] [place] [address], [facility] [place] [phone] Jeff Bird APRN-JOSETTE [address] [place] [address] [place] [phone] Medication Prior Auth Request Social History Tobacco [...] fax with Ya to . Included signed insurance account representative auth form, LMN and last visit note. Will await a response. Tracking #[id number]. * Telephone Encounter - Margy Sharma RN [...] for not taking the preferred drugs. Ya [facility] Authorized Junior Systems Engineer Designation form sent to patient via Amnis attachmentto sign and send back via Amnis and we will then initiate the appeal. [...] on filedocumented in this encounter Care Teams Hall Cleaner Relationship Specialty Start Date End Date Jonelle Elam MD [address] [place] [address] [place] [address] PCP - General Family Medicine 10/24/18 Manju Rainey DO [address] [place] [address] Bariatrics 08/11/20 documented as of this encounter
--- OUTSIDE RECORDS SUMMARY | 2024-04-14 20:11 | XMS_ITS | Encounter Summary ---
Author Organization [facility] Address [address] [place] [address] Care Team Providers Care Manager Etl Name Role Phone Jonelle Elam MD Primary Care Provider Manju Rainey DO Unavailable [phone] Encounter Details Date Type Department Care [...] filedocumented in this encounter Care Teams Manager Etl Relationship Specialty Start Date End Date Jonelle Elam MD [address] [place] [address] [place] [address] PCP - General Family Medicine 10/24/18 Manju Rainey DO [address] [place] [address] Bariatrics 08/11/20 documented as of this encounter
--- OUTSIDE RECORDS SUMMARY | 2024-04-14 20:11 | XMS_ITS | Encounter Summary ---
Author Organization [facility] Address [address] [facility] [place] [address] Care Team Providers Care Industrial Electrical Technician Name Role Phone Jonelle Elam MD Primary Care Provider [phone] Manju Rainey DO Unavailable [phone] Encounter Details Date Type Department Care Team (Late st Contact Info) Description 03/24/2021 3:00 PM CLERICAL ASSIGNER Video Visit [facility] Weight Management Services [address] [place] [address] Morbid obesity (HCC) Social History Tobacco [...] to the billing and collection practices of [facility]. Patient location: Home This encounter was performed [...] visits per protocol ___ Suad Stiles RD/LUCILLE ICAL ASSIGNER documented in this encounter Plan of Treatment [...] obesity documented in this encounter Care Teams Industrial Electrical Technician Relationship Specialty Start Date End Date Jonelle Elam MD [address] [place] [address] [place]inoso [phone] PCP - General Family Medicine 10/24/18 Manju Rainey DO [address] [place] [address] Bariatrics 08/11/20 documented as of this encounter
--- OUTSIDE RECORDS SUMMARY | 2024-04-14 20:11 | XMS_ITS | Encounter Summary ---
Author Organization [facility] Address [address] [place] [address] Care Team Providers Care Dot Etcher Apprentice Name Role Phone Jonelle Elam MD Primary Care Provider [phone] Manju Rainey DO Unavailable [phone] Encounter Details Date Type Department Care [...] on filedocumented in this encounter Care Teams Dot Etcher Apprentice Relationship Specialty Start Date End Date Jonelle Elam MD [address] [place] [address] [place] [address] PCP - General Family Medicine 10/24/18 Manju Rainey DO [address] [place] [address] Bariatrics 08/11/20 documented as of this encounter
--- OUTSIDE RECORDS SUMMARY | 2024-04-14 20:11 | XMS_ITS | Encounter Summary ---
Author Organization [facility] Address [address] [facility] [place] [address] Care Team Providers Care Radio Television Technical Director Name Role Phone Jonelle Elam MD Primary Care Provider Manju Rainey DO Unavailable [phone] Encounter Details Date Type Department Care Team (Late st Contact Info) Description 12/22/2020 3:00 PM CDT Office Visit [facility] Weight Management Services [address] [place] [phone] Rani Claros MD [address] [place] [address] Morbid obesity (HCC) (Primary Dx) [...] encounter Progress Notes * Jad Smileyesequiel Louis, JESSEECAN MARKER - 12/22/2020 3:16 PM CDT Bariatric Pre-Surgical Psychosocial Assessment Radha JESSEE CarltonCAN MARKER License # [id number] Deya Campbell 1995 12/22/2020 [facility] Patient Verification & Telemedicine [...] ??? vitamin D, ergocalciferol, (DRISDOL) 1.25 MG (25302 UT) capsule Social History: Tobacco Use: No [...] nutritional support has been arranged. Patient location: [facility] outpatient clinic This encounter was performed [...] obesity documented in this encounter Care Teams Radio Television Technical Director Relationship Specialty Start Date End Date Jonelle Elam MD [address] [place] [address] [place] [phone] PCP - General Family Medicine 10/24/18 Manju Rainey DO [address] [place] [address] Bariatrics 08/11/20 documented as of this encounter
--- OUTSIDE RECORDS SUMMARY | 2024-04-14 20:11 | XMS_ITS | Encounter Summary ---
Author Organization [facility] Address [address] [facility] [place] [address] Care Team Providers Care Long Chain Quiller Tender Name Role Phone Jonelle Elam MD Primary Care Provider Manju Rainey DO Unavailable [phone] Reason for Visit * Reason Comments Obesity Follow Up Encounter Details Date Type Department Care Team (Late st Contact Info) Description 10/27/2020 3:00 PM CDT Office Visit [facility] Weight Management Services [address] [place] [phone] Manju Rainey, DO [address] [place], [place] [address] Obesity, morbid, BMI 50 or higher (HCC) [...] were not included. Patient Education Weight Management SPLITTING MACHINE OPERATOR HELPER: Why it is important to manage your [...] foods. Some examples of high-fat foods include maltese fries, doughnuts, ice cream, and cakes. ?? [...] on your weight loss goals. ?? Copyright [employer] 2020 Information is for End User's use only and may not be sold, redistributed or otherwise used for commercial purposes. All illustrations and images included in CareNotes?? are the copyrighted property of [employer]. or [employer] The above information is an employment and claims aide only. It is not intended as medical advice for individual conditions or treatments. Talk to your doctor, nurse or pharmacist before following any medical regimen to see if it is safe and effective for you. documented in this encounter Progress Notes * Manju Rainey DO - 10/27/2020 4:05 PM CDT Images from the original note were not included. [facility] [place] [facility] [address] [address] Dept: [phone] Dept Date of encounter: 10/27/2020 Provider: Manju Rainey DO Patient: Deya Campbell [facility]: [id number] Specialty: Bariatrics. Date of : 1995 Visit [...] ultrasound however patient wants it done at [facility]. Patient will have her PCP to [...] with plan. Patient had labs done at [facility]. Those are not available for review today. Patient could see them on her phone. Her vitamin-D level was 16 on 10/17/2020. Will continue vitamin-D replacement aunt and an additional 2000 units over the counter daily on Days not taking her 48708 unit dose. Dyslipidemia managed by PCP. IBS [...] you have an unusual work schedule? na [place] Sleepiness Scale total points: 9 Past Medical [...] Gatherings with Friends and Family: ??? Attends Mormonism Services: ??? Active Member of Clubs or [...] ??? vitamin D, ergocalciferol, (DRISDOL) 1.25 MG (08446 UT) capsule Take 1 (one) capsule by [...] program. Patient will be referred back to [facility] bariatric surgery program in [facility]. Labs Recent Labs Component Name 04/12/19 1514 01/02/19 1236 AST 16 20 ALT 12 24 Some lab results will be in paper format so may be scanned in the EMR. Labs reviewed from 04/16/2020 and 05/14/2020. Labs requested from [facility] that were done recently. Will review when [...] (right upper quadrant) R10.11 CANCELED: US GALLBLADDER 21579 Patient will call PCP to have gallbladder testing done near her home at [facility]. Patient will schedule follow-up with Dr. Claros after testing completed. 3. Vitamin D deficiency E55.9 vitamin D, ergocalciferol, (DRISDOL) 1.25 MG (37704 UT) capsule weekly. May take [id number] vitamin-D 2000 units daily on other days. [...] to bariatric surgery program with [facility] in [facility]. Patient would like to see [...] present documented in this encounter Care Teams Long Chain Quiller Tender Relationship Specialty Start Date End Date Jonelle Elam MD [address] [place] [address] [place] [address] PCP - General Family Medicine 10/24/18 Manju Rainey DO [facility] [place] [address] Bariatrics 08/11/20 documented as of this encounter
--- OUTSIDE RECORDS SUMMARY | 2024-04-14 20:11 | XMS_ITS | Encounter Summary ---
Author Organization [facility] Address [address] [place] [address] Care Team Providers Care Insurance And Financial Services Agent Name Role Phone Jonelle Elam MD Primary Care Provider Manju Rainey DO Unavailable [phone] Encounter Details Date Type Department Care Team (Late st Contact Info) Description 05/17/2021 Orders Only [facility] - [address] [facility], [place] [address] Maribel Kitchen MD [address] [place] [address] NAFLD (nonalcoholic fatty liver disease) Social History [...] Coronavirus / COVID-19? Yes 04/27/2021 10:37 AM TECHNICAL SALES CONSULTANT documented as of this encounter Plan of [...] disease documented in this encounter Care Teams Insurance And Financial Services Agent Relationship Specialty Start Date End Date Jonelle Elam MD [address] [place] [address] [place] [address] PCP - General Family Medicine 10/24/18 Manju Rainey DO [address] [place] [address] Bariatrics 08/11/20 documented as of this encounter
--- OUTSIDE RECORDS SUMMARY | 2024-04-14 20:11 | XMS_ITS | Encounter Summary ---
Author Organization [facility] Address [address] [facility] [place] [address] Care Team Providers Care Marina Sales And Service Supervisor Name Role Phone Jonelle Elam MD Primary Care Provider Manju Rainey DO Unavailable [phone] Reason for Visit * Reason Comments Bariatric Surgery Pre-op Instruction Encounter Details Date Type Department Care Team (Late st Contact Info) Description 12/30/2020 9:00 AM CDT Office Visit [facility] Weight Management Services [address] [place] [phone] Carmen Lee, CONTINUOUS WELD PIPE MILL SUPERVISOR-QUALITY ASSURANCE ASSESSOR [address] [place] [address] BMI 50.0-59.9, adult (HCC) (Primary Dx); Class [...] from the original note were not included. [facility] Weight Management Services [address] [address] PH: [phone] , Date of encounter: 12/30/2020 Provider: Carmen Lee APRN-QUALITY ASSURANCE ASSESSOR Patient: Deya Campbell [facility]: [id number] Specialty: Bariatric Surgery Date of : 1995 [...] in January 2020; she continued following with [facility] until March 2020 when she began following up with Dr.Esther Rainey whom she followed with until October 2020 at which time she requested to be seen by Dr. Bojorquez at [facility]. Patient is non-smoker, reports [...] and Family: Not on file ??? Attends Bahai Services: Not on file ??? Active Member [...] ??? vitamin D, ergocalciferol, (DRISDOL) 1.25 MG (30573 UT) capsule Take 1 (one) capsule by [...] disease) Patient follows with Dr. Maribel Kitchen, glass selector, at [facility]; per previous scan liver shows changesquestionable [...] (pediatric) documented in this encounter Care Teams Marina Sales And Service Supervisor Relationship Specialty Start Date End Date Jonelle Elam MD [address] [place] [address] [place] [address] PCP - General Family Medicine 10/24/18 Manju Rainey DO [address] [place] [address] Bariatrics 08/11/20 documented as of this encounter
--- OUTSIDE RECORDS SUMMARY | 2024-04-14 20:11 | XMS_ITS | Encounter Summary ---
Author Organization [facility] Address [address] [facility] [place] [address] Care Team Providers Care Legal Financial Specialist Name Role Phone Jonelle Elam MD Primary Care Provider Manju Rainey DO Unavailable [phone] Reason for Visit * Reason Onset Date Comments Missed Appointment 02/17/2021 Encounter Details Date Type Department Care Team (Late st Contact Info) Description 02/17/2021 Telephone [facility] Weight Management Services [address] [place] [address] Keith Bojorquez MD [address] [place] [address] Missed Appointment Social History Tobacco [...] COVID-19? No / Unsure 02/14/2021 10:58 AM AIRCRAFT MAINTENANCE TECHNICIAN documented as of this encounter Miscellaneous Notes * Telephone Encounter - Nury Jack RN - 02/17/2021 9:12 AM AIRCRAFT MAINTENANCE TECHNICIAN Attempted to contact pt no answer LVM to return call. Pt did not show up for schedule surgery today. Called mother who is alternate contact finger assembler checking on patient to make sure everything [...] contact daughter and have her return ourcall. RAFT MAINTENANCE TECHNICIAN documented in this encounter Plan of Treatment [...] on filedocumented in this encounter Care Teams Legal Financial Specialist Relationship Specialty Start Date End Date Jonelle Elam MD [address] [place] [address] [place] [address] PCP - General Family Medicine 10/24/18 Manju Rainey DO [address] [place] [address] Bariatrics 08/11/20 documented as of this encounter
--- OUTSIDE RECORDS SUMMARY | 2024-04-14 20:11 | XMS_ITS | Encounter Summary ---
Author Organization [facility] Address [address] [facility] [place] [address] Care Team Providers Care Is Technician Name Role Phone Jonelle Elam MD Primary Care Provider [phone] Manju Rainey DO Unavailable [phone] Reason for Visit * Reason Onset Date Comments General 02/23/2021 [place] Video Discu ssion/Follow Up Appointments Created Encounter Details Date Type Department Care Team (Late st Contact Info) Description 02/23/2021 Telephone [facility] Medical [facility] - Surgery [address] [place] [address] Keith Bojorquez MD [address] [place] [address] General ([place] Video Discussion/Follow Up [...] COVID-19? No / Unsure 02/14/2021 10:58 AM STEAM TRAP WORKER documented as of this encounter Miscellaneous Notes [...] Pt stated she attempted to send a [employer] message notifying the department of the surgery cancellation. Pt's post operative appointments have been cancelled and patient has been made follow up appointments for [facility] Policy Writer and Carmen Lee RETAIL ADVERTISING SALES MANAGER for 03/24/21. Pt has beenrescheduled for the [...] maintain monthly Follow up appointments with the RETAIL ADVERTISING SALES MANAGER and Policy Writer monthlyuntil surgery. Pt again voiced understanding. Patient will call with any concerns or questions. M TRAP WORKER documented in this encounter Plan of Treatment [...] on filedocumented in this encounter Care Teams Is Technician Relationship Specialty Start Date End Date Jonelle Elam MD [address] [place] [address] [place] [address] PCP - General Family Medicine 10/24/18 Manju Rainey DO [address] [place] [address] Bariatrics 08/11/20 documented as of this encounter
--- OUTSIDE RECORDS SUMMARY | 2024-04-14 20:11 | XMS_ITS | Encounter Summary ---
Author Organization [facility] Address [address] [facility] [place] [address] Care Team Providers Care Forest Biometrics Professor Name Role Phone Jonelle Elam MD Primary Care Provider [phone] Manju Rainey DO Unavailable [phone] Reason for Visit * Radiology Services (Routine) - Closed Specialty Diagnoses / Procedures Referred By Ritika bonner Referred To Contact Magnetic Resonance Imaging / MRI Procedures MRI ABDOMEN WWO CONTRAST Antonette Roy, MECHANICAL MANAGER-DIRECTOR OF PAYROLL [address] [place] [address] [facility] Mri [address] [place] [address] Referral ID Status Reason Start Date Expiration Date Visits Re quested Visits Authorized [id number] Closed 12/02/2020 03/02/2021 1 1 Encounter Details Date Type Department Care Team (Latest Contact Info) Description 01/19/2021 4:59 PM CDT - 01/19/2021 11:59 PM CDT Hospital Encounter [facility] Imaging Services [place] [address] [place] [address] Antonette Roy, MECHANICAL MANAGER-DIRECTOR OF PAYROLL [address] [place] [address] Discharge Disposition: Home or Self [...] 02/09/2021 vitamin D, ergocalciferol, (DRISDOL) 1.25 MG (34672 UT) capsuleIndications:V itamin D Deficiency Take 1 [...] mL documented in this encounter Care Teams Forest Biometrics Professor Relationship Specialty Start Date End Date Jonelle Elam MD [address] [place] [address] PCP - General Family Medicine 10/24/18 Manju Rainey DO [address] [place] [address] Bariatrics 08/11/20 documented as of this encounter
--- OUTSIDE RECORDS SUMMARY | 2024-04-14 20:11 | XMS_ITS | Encounter Summary ---
Author Organization [facility] Address [address] [place] [address] Care Team Providers Care Clinical Technician Name Role Phone Jonelle Elam MD Primary Care Provider Manju Rainey DO Unavailable [phone] Reason for Visit * Reason Comments Follow-up dietary changes- abd ominal pain, fatigued, headaches (4-5 aspirin daily),seeing deborah FUENTES Encounter Details Date Type Department Care Team (Late st Contact Info) Description 10/27/2020 11:30 AM CDT Office Visit [facility] [place] [place] [phone] Tejas Jamil MD [address] [place] [address] [place] [address] Maribel Kitchen MD [address] [place] [address] NAFLD (nonalcoholic fatty liver disease) [...] Kitchen MD - 10/27/2020 11:47 AM CDT [facility] Maribel Kitchen MD Referring Provider: Provider Unknown PCP: Jonelle Elam MD Interval history and subjective concerns: I had the pleasure of meeting Deya Campbell at the [facility] on 10/27/2020. This is a [...] is also seeing a nonsurgical bariatric weight professor of sport management and was started on Wellbutrin. She reports [...] HEMATOCRIT, HCT, PLATELET, PLTCOUNT in the last 02495 hours. No results for input(s): INR in the last 80642 hours. Computed MELD-Na score unavailable. Necessary lab [...] seen on 2019 imaging, repeat MRI at [facility] on 02/2019 shows lesions are c/w with [...] visit in 6 months. Maribel Kitchen MD Technical Training Coordinator Division of Gastroenterology and Hepatology No orders [...] ??? vitamin D, ergocalciferol, (DRISDOL) 1.25 MG (39531 UT) capsule Take 1 capsule by mouth [...] (HCC) documented in this encounter Care Teams Clinical Technician Relationship Specialty Start Date End Date Jonelle Elam MD [address] [place] [address] [place] [address] PCP - General Family Medicine 10/24/18 Manju Rainey DO [address] [place] [address] Bariatrics 08/11/20 documented as of this encounter
--- OUTSIDE RECORDS SUMMARY | 2024-04-14 20:11 | XMS_ITS | Encounter Summary ---
Author Organization [facility] Address [address] [place] [address] Care Team Providers Care Foam Caster Name Role Phone Jonelle Elam MD Primary Care Provider Reason for Visit * Reason Comments Obesity Follow Up Encounter Details Date Type Department Care Team (Late st Contact Info) Description 06/17/2020 2:00 PM CDT Video Visit [facility] Weight Management Services [address] [place] [phone] [place] [address] [address] Manju Rainey, DO [address] [place], [place] [address] Obesity, morbid, BMI 50 or higher (HCC) [...] from the original note were not included. [facility] [place] [address] . . Telemedicine Note Today's visit was conducted virtually due to COVID-19 countermeasures. The patient has given verbalconsent to have today's visit conducted by this same means with treatment provided remotely. The patient verbally consents to the billing and collection practices of [facility]. Patient location: In her car, parked This encounter was performed using: audio and video Time spent direct and indirect care: : Thirty-one minutes Date of encounter: 06/17/2020 Provider: Manju Rainey DO Patient: Deya Campbell CSN: [id number] Specialty: Bariatrics. Date of : 1995 Visit [...] you have an unusual work schedule? na [place] Sleepiness Scale total points: 9 Past Medical [...] file Gets together: Not on file Attends mu-ism service: Not on file Active member of [...] reflux documented in this encounter Care Teams Foam Caster Relationship Specialty Start Date End Date Jonelle Elam MD [address] [place] [address] PCP - General Family Medicine 10/24/18 documented as of this encounter
--- OUTSIDE RECORDS SUMMARY | 2024-04-14 20:11 | XMS_ITS | Encounter Summary ---
Author Organization [facility] Address [address] [place] [address] Care Team Providers Care Risk Assessor Name Role Phone Jonelle Elam MD Primary Care Provider [phone] Manju Rainey DO Unavailable [phone] Encounter Details Date Type Department Care Team (Late st Contact Info) Description 10/26/2020 Orders Only [facility] - [address], [place] [address] Gabriella Moon, RN Liver lesion ; Nonalcoholic [...] COMPREHENSIVE METABOLIC PANEL (12/02/2020 2:34 PM CDT) [facility] Signature BUN 12 7 - 26 mg/dL 12/02/2020 3:44 PM [facility] Creatinine 0.63 0.56 - 0.96 mg/dL 12/02/2020 3:44 PM [facility] Sodium 142 136 - 145 mmol/L 12/02/2020 3:44 PM [facility] Potassium 4.0 3.5 - 4.5 mmol/L 12/02/2020 3:44 PM [facility] Chloride 105 98 - 107 mmol/L 12/02/2020 3:44 PM [facility] CO2 25 22 - 29 mmol/L 12/02/2020 3:44 PM [facility] Glucose 88 70 - 115 mg/dL 12/02/2020 3:44 PM [facility] Calcium 9.9 8.4 - 10.2 mg/dL 12/02/2020 3:44 PM [facility] Protein Total 7.2 6.0 - 8.3 g/dL 12/02/2020 3:44 PM [facility] Albumin 4.2 3.4 - 5.0 g/dL 12/02/2020 3:44 PM [facility] Bilirubin Total 0.6 0.2 - 1.2 mg/dL 12/02/2020 3:44 PM [facility] Alkaline Phosphatase 66 40 - 150 U/L 12/02/2020 3:44 PM [facility] ALT 33 5 - 55 U/L 12/02/2020 3:44 PM [facility] AST 19 5 - 34 U/L 12/02/2020 3:44 PM [facility] Anion Gap 16 8 - 18 12/02/2020 3:44 PM [facility] BUN/Creatinine Ratio 19 7 - 23 12/02/2020 3:44 PM CDT [facility] Osmolality Calculated 293 270 - 300 mOsm/kg 12/02/2020 3:44 PM CDT [facility] Albumin/Globulin Ratio 1.4 1.1 - 2.3 12/02/2020 3:44 PM CDT [facility] eGFR by CKD-EPI >90 >=90 mL/min/1.7 3 m2 12/02/2020 3:44 PM CDT [facility] Blood BLOOD SPECIMEN / Unknown Lab Venipuncture / Unknown 12/02/2020 2:34 PM CDT 12/02/2020 3:18 PM CDT Maribel Kitchen MD LAB - CHEMISTRY ORDE RABLES Performing Organization Address City/[facility]/ZIP Co de Phone Number [address] [address], [place] [phone] * PT-INR [facility] (12/02/2020 2:34 PM CDT) PT 13.2 12.1 - 14.8 Seconds 12/02/2020 3:32 PM CDT [facility] INR 1.0 See Comment 12/02/2020 3:32 PM CDT [facility] Comment:The suggested therap eutic range for standard coumadin (warfarin) therapy is an INR of 2.0-3.0. For high-risk patients (Mechanical Mitral Valve Prosthesis, etc.), the suggested prophylactic therapeutic range is an INR of 2.5-3.5. Blood BLOOD SPECIMEN / Unknown Lab Venipuncture / Unknown 12/02/2020 2:34 PM CDT 12/02/2020 3:17 PM CDT Maribel Kitchen MD LAB - COAGULATION OR DERABLES [address] [address], [place] [phone] * (ABNORMAL) CBC WITH DIFFERENTIAL (12/02/2020 2:34 PM CDT) WBC 7.3 3.5 - 10.5 10? 3 /uL 12/02/2020 4:06 PM [facility] RBC 4.82 3.80 - 5.20 10? 6 /uL 12/02/2020 4:06 PM [facility] Hemoglobin 12.6 12.0 - 15.6 g/dL 12/02/2020 4:06 PM [facility] Hematocrit 38.7 35.0 - 45.0 % 12/02/2020 4:06 PM [facility] MCV 80.3(L) 80.7 - 98.3 fL 12/02/2020 4:06 PM [facility] MCH 26.1(L) 26.7 - 34.0 pg 12/02/2020 4:06 PM [facility] MCHC 32.6 30.8 - 35.9 g/dL 12/02/2020 4:06 PM [facility] Platelet Count 196 150 - 400 10? 3 /uL 12/02/2020 4:06 PM [facility] Comment: Occasional platelet clump present on slide. Platelet count appears adequate. This is an appended report. ??These results have been appended to a previously preliminary verified report. RDW-SD 40.4 36.0 - 50.0 fL 12/02/2020 4:06 PM [facility] RDW-CV 13.8 11.2 - 14.8 % 12/02/2020 4:06 PM [facility] MPV 11.2 9.4 - 12.9 fL 12/02/2020 4:06 PM [facility] nRBC Absolute 0.00 0 10? 3 /uL 12/02/2020 4:06 PM [facility] nRBC Auto 0.0 0 /100 WBC 12/02/2020 4:06 PM [facility] Neutrophils % 56.9 35.0 - 70.0 % 12/02/2020 4:06 PM [facility] Lymphocytes % 33.0 20.0 - 43.0 % 12/02/2020 4:06 PM [facility] Monocytes % 7.3 5.0 - 13.0 % 12/02/2020 4:06 PM [facility] Eosinophils % 1.8 0.0 - 6.0 % 12/02/2020 4:06 PM [facility] Basophil % 0.7 0.0 - 2.0 % 12/02/2020 4:06 PM [facility] Neutrophils Absolute 4.2 1.6 - 7.0 10? 3 /uL 12/02/2020 4:06 PM [facility] Lymphocyte Absolute 2.4 1.1 - 3.9 10? 3 /uL 12/02/2020 4:06 PM [facility] Monocytes Absolute 0.53 0.26 - 1.07 10? 3 /uL 12/02/2020 4:06 PM [facility] Eosinophils Absolute 0.13 0.00 - 0.47 10? 3 /uL 12/02/2020 4:06 PM [facility] Basophils Absolute 0.05 0.00 - 0.08 10? 3 /uL 12/02/2020 4:06 PM [facility] Immature Granulocytes % 0.3 0.0 - 1.0 % 12/02/2020 4:06 PM [facility] Immature Granulocytes Absolute 0.02 12/02/2020 4:06 PM [facility] Immature Platelet Fraction 11.1(H) 1.1 - 6.2 % 12/02/2020 4:06 PM [facility] Blood BLOOD SPECIMEN / Unknown Lab Venipuncture / Unknown 12/02/2020 2:34 PM CDT 12/02/2020 3:17 PM CDT Maribel Kitchen MD LAB - HEMATOLOGY ORD ERABLES [facility] [address] [place] [address] [phone] documented in this encounter Visit Diagnoses Diagnosis Liver lesion- Primary Other specified disorders of liver Nonalcoholic fatty liver disease Other chronic nonalcoholic liver disease documented in this encounter Care Teams Risk Assessor Relationship Specialty Start Date End Date Jonelle Elam MD [address] [place] [address] [place] [address] PCP - General Family Medicine 10/24/18 Manju Rainey DO [address] [place] [address] Bariatrics 08/11/20 documented as of this encounter
--- OUTSIDE RECORDS SUMMARY | 2024-04-14 20:11 | XMS_ITS | Encounter Summary ---
Author Organization [facility] Address [address] [facility] [place] [address] Care Team Providers Care Photo Engraver Name Role Phone Jonelle Elam MD Primary Care Provider Manju Rainey DO Unavailable [phone] Reason for Visit * Reason Onset Date Comments Appointment 03/25/2021 Encounter Details Date Type Department Care Team (Late st Contact Info) Description 03/25/2021 Telephone [facility] Weight Management Services [address] [place] [phone] Carmen Lee, COURIER DELIVERY DRIVER-ALUMINIZER [address] [place] [address] Appointment Social History Tobacco Use Types Packs/Day [...] Coronavirus / COVID-19? Yes 04/27/2021 10:37 AM BOOKS SALESPERSON documented as of this encounter Miscellaneous Notes * Telephone Encounter - Jackeline Tejada - 05/18/2021 10:42 AM CST Lvm x3 for pt to call the office letter sent S SALESPERSON * Telephone Encounter - Jackeline Tejada - 04/12/2021 3:23 PM CST Lvm for pt to call the office to schedule follow up appt. S SALESPERSON * Telephone Encounter - Ella Harley CNA - 04/08/2021 9:19 AM CST Left message for patient to return call to schedule appointment with . Patient will need to complete [facility] packet. S SALESPERSON * Telephone Encounter - Jackeline Tejada - 03/25/2021 9:11 AM CST lvm for pt to call the office to schedule next months f/u appt S SALESPERSON documented in this encounter Plan of Treatment [...] on filedocumented in this encounter Care Teams Photo Engraver Relationship Specialty Start Date End Date Jonelle Elam MD [address] [place] [address] PCP - General Family Medicine 10/24/18 Manju Rainey DO [address] [place] [address] Bariatrics 08/11/20 documented as of this encounter
--- OUTSIDE RECORDS SUMMARY | 2024-04-14 20:11 | XMS_ITS | Encounter Summary ---
Author Organization [facility] Address [address] [place] [address] Care Team Providers Care Peanut Salter Name Role Phone Jonelle Elam MD Primary Care Provider [phone] Encounter Details Date Type Department Care Team (Late st Contact Info) Description 04/17/2020 Orders Only [facility] Weight Management Services [address] [place] [address] Manju Rainey DO [address] [place], [place] [address] Obesity, morbid, BMI 50 or higher (HCC) [...] COVID-19? No / Unsure 04/17/2020 2:31 PM TILLER MAN documented as of this encounter Plan of Treatment Not on file documented as of this encounter Visit Diagnoses Diagnosis Obesity, morbid, BMI 50 or higher (HCC) documented in this encounter Care Teams Peanut Salter Relationship Specialty Start Date End Date Jonelle Elam MD [address] [place] [address] [place] [phone] PCP - General Family Medicine 10/24/18 documented as of this encounter
--- OUTSIDE RECORDS SUMMARY | 2024-04-14 20:12 | XMS_ITS | Encounter Summary ---
Author Organization [facility] Address [address] [facility] [place] [address] Care Team Providers Care Firmware Engineer Name Role Phone Jonelle Elam MD Primary Care Provider [phone] Reason for Visit * Evaluate & Treat (Routine) - Closed Specialty Diagnoses / Procedures Referred By Contac t Referred To Contact Maternal Medicine Diagnoses Obesity complicating , unspecified trimester (HCC) Liver disease, unspecified Fatty (change of) liver, not elsewhere classified Procedures [place] FULL ROUT OBSTE CARE,VAGINAL Taurus Amos MD [address] [place] [address] [facility] [address] [place] [address] Referral ID Status Reason Start Date Expiration Date Visits Re quested Visits Authorized [id number] Closed 06/05/2019 12/02/2019 20 20 Encounter Details Date Type Department Care Team (Late st Contact Info) Description 07/05/2019 11:04 AM CDT - 07/05/2019 11:59 PM CDT Hospital Encounter [facility] Women's Health Maternal & Care [address] [phone] Luis Daniel Damico MD Buchanan, Christopher Q, MD [address] [place] [address] Discharge Disposition: Home or Self Care Social [...] CDT Narrative 07/05/2019 12:20 PM CDT ? [facility] Maternal Medicine ? Maternal & Care Center ?PHONE: ??FAX: Pat. Name: ?MARY CARMEN CROSS Pat. No: ?[id number] Study Date: ?? 07/05/2019 ??12:25pm , Age: ? 1995, 23 Pregnancies: ?? 3, Para 2 Height: ? 61 in Weight: ? 288 lb LMP: ?Unknown GA by Base: ?? 22w6d ?? LUISA: 11/02/2019 GA Selected: ??22w6d (From [facility]) LUISA: ?11/02/2019 Referring MD: Ede Maldonado MD Shirt Presser: ??Jackeline Baker RDMS, ALBA CPT4: ? 329[address] BMI: ?54.41 Hist/Ind: ? Complete Anatomy Screen [...] incidental documented in this encounter Care Teams Firmware Engineer Relationship Specialty Start Date End Date Jonelle Elam MD [address] [place] [address] PCP - General Family Medicine 10/24/18 documented as of this encounter
--- OUTSIDE RECORDS SUMMARY | 2024-04-14 20:12 | XMS_ITS | Encounter Summary ---
Author Organization [facility] Address [address] [place] [address] Care Team Providers Care Petrography Teacher Name Role Phone Jonelle Elam MD Primary Care Provider [phone] Reason for Visit * Reason Comments Obesity Follow Up Encounter Details Date Type Department Care Team (Late st Contact Info) Description 04/15/2020 2:00 PM E COMMERCE MARKETING MANAGER Video Visit [facility] Weight Management Services [address] [place] [phone] [place] [address] [address] Manju Rainey, DO [address] [place], [place] [id number] Obesity, morbid, BMI 50 or higher (HCC) [...] (309 lb 3.2 oz) 04/15/2020 1:45 PM E COMMERCE MARKETING MANAGER Height 158.4 cm (5' 2.36 ) 04/15/2020 1:45 PM CS T Body Mass Index 55.9 04/15/2020 1:45 PM E COMMERCE MARKETING MANAGER documented in this encounter Patient Instructions * Patient Instructions* Manju Rainey, DO - 04/15/2020 2:21 PM E COMMERCE MARKETING MANAGER Images from the original note were not included. Patient Education Weight Management HARDWARE TEST ENGINEER: Why it is important to manage your [...] foods. Some examples of high-fat foods include romansh fries, doughnuts, ice cream, and cakes. ?? [...] on your weight loss goals. ?? Copyright [employer] 2020 Information is for End User's use only and may not be sold, redistributed or otherwise used for commercial purposes. All illustrations and images included in CareNotes?? are the copyrighted property of [employer]. or [employer] The above information is an nurse first aid only. It is not intended as medical advice for individual conditions or treatments. Talk to your doctor, nurse or pharmacist before following any medical regimen to see if it is safe and effective for you. E COMMERCE MARKETING MANAGER documented in this encounter Progress Notes * Manju Rainey DO - 04/15/2020 2:21 PM CST Images from the original note were not included. [facility] Health Weight Management Services at [address] [address] . . Telemedicine Note Today's visit was conducted virtually due to COVID-19 countermeasures. The patient has given verbalconsent to have today's visit conducted by this same means with treatment provided remotely. The patient verbally consents to the billing and collection practices of [facility] Medical [facility]. Patient location: Home This encounter was performed using: audio and video Time spent direct and indirect care: : Thirty-five minutes Date of encounter: 04/15/2020 Provider: Manju Rainey DO Patient: Deya Campbell CSN: [id number] Specialty: Bariatrics. 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 Since the holidays her hours have been [...] you have an unusual work schedule? na [place] Sleepiness Scale total points: 9 Past Medical [...] file Gets together: Not on file Attends confucianism service: Not on file Active member of [...] Manju Rainey DO CC: Jonelle Elam MD E COMMERCE MARKETING MANAGER documented in this encounter Plan of [...] unspecified documented in this encounter Care Teams Petrography Teacher Relationship Specialty Start Date End Date Jonelle Elam MD [address] [place] [place] [address] PCP - General Family Medicine 10/24/18 documented as of this encounter
--- OUTSIDE RECORDS SUMMARY | 2024-04-14 20:12 | XMS_ITS | Encounter Summary ---
Author Organization [employer] Care Team Providers Care Real Estate Officer Name Role Phone Jonelle Elam MD [...] on file Legal Sex Female 10:30 PM RESTAURANT SHIFT SUPERVISOR Gender Identity Not on file Sexual Orientation [...] on filedocumented in this encounter Care Teams Real Estate Officer Relationship Specialty Start Date End Date Jonelle Elam MD [address] [place] [address] PCP - General Family Medicine 02/22/15 documented as of this encounter
--- OUTSIDE RECORDS SUMMARY | 2024-04-14 20:12 | XMS_ITS | Encounter Summary ---
Author Organization [employer] Care Team Providers Care Side Sawyer Name Role Phone Jonelle Elam MD Primary [...] on file Legal Sex Female 10:30 PM PRESS CLIPPER Gender Identity Not on file Sexual Orientation [...] on filedocumented in this encounter Care Teams Side Sawyer Relationship Specialty Start Date End Date Jonelle Elam MD [address] [place] [address] PCP - General Family Medicine 02/22/15 documented as of this encounter
--- OUTSIDE RECORDS SUMMARY | 2024-04-14 20:12 | XMS_ITS | Encounter Summary ---
Author Organization [employer] Care Team Providers Care Dry Color Tester Name Role Phone Jonelle Elam MD [...] on file Legal Sex Female 10:30 PM PRECISION CROP MANAGER Gender Identity Not on file Sexual Orientation Not on file COVID-19 Exposure Response Date Recorded In the last month, have you been in contact with someone who was confirmed or suspected to have Coronavirus / COVID-19? No / Unsure 03/09/2020 1:10 PM PRECISION CROP MANAGER documented as of this encounter Plan of Treatment Not on file documented as of this encounter Visit Diagnoses Not on filedocumented in this encounter Care Teams Dry Color Tester Relationship Specialty Start Date End Date Jonelle Elma MD [address] [place] [address] PCP - General Family Medicine 02/22/15 documented as of this encounter
--- OUTSIDE RECORDS SUMMARY | 2024-04-14 20:12 | XMS_ITS | Encounter Summary ---
Author Organization [facility] Address [address] [place] [address] Care Team Providers Care Heavy Truck Mechanic Name Role Phone Jonelle Elam MD Primary Care Provider [phone] Reason for Visit * Reason Onset Date Comments Appointment 01/21/2020 Encounter Details Date Type Department Care Team (Late st Contact Info) Description 01/21/2020 Telephone [facility] Weight Management Services [address] [place] [phone] Rain Claros MD [address] [place] [address] Appointment Social History Tobacco Use [...] on filedocumented in this encounter Care Teams Heavy Truck Mechanic Relationship Specialty Start Date End Date Jonelle Elam MD [address] [place] [phone] PCP - General Family Medicine 10/24/18 documented as of this encounter
--- OUTSIDE RECORDS SUMMARY | 2024-04-14 20:12 | XMS_ITS | Encounter Summary ---
Author Organization [facility] Address [address] [place] [address] Care Team Providers Care School Age Teacher Name Role Phone Jonelle Elam MD Primary Care Provider Reason for Visit * Radiology Services (Routine) - Closed Specialty Diagnoses / Procedures Referred By Ritika bonner Referred To Contact MRI Diagnoses Liver mass Procedures MRI ABDOMEN WWO CONTRAST Edward Alvarado MD [address] [place] [address] [facility] Mri [address] [place] [address] Referral ID Status Reason Start Date Expiration Date Visits Re quested Visits Authorized [id number] Closed 01/23/2019 03/08/2019 1 1 Encounter Details Date Type Department Care Team (Latest Contact Info) Description 02/14/2019 6:15 PM DIESEL RETROFIT INSTALLER - 02/14/2019 11:59 PM DIESEL RETROFIT INSTALLER Hospital Encounter [facility] MRI [address] [place] [address] Edward Alvarado MD [address] [facility] FIRST [place]EL [place] [address] Discharge Disposition: Home or Self [...] ABDOMEN WWO CONTRAST Routine 02/14/2019 8:08 PM DIESEL RETROFIT INSTALLER Liver mass documented in this encounter Visit Diagnoses Not on filedocumented in this encounter Administered Medications Inactive Administered Medications - up to 3 most recent administrations Medication Order MAR Action Action Date Dose Rate Site gadoxetate disodium (EOVIST) injection Intravenous, CONTRAST ONCE, Starting on Anisha 02/14/19 at 2008, Until 02/15/19 at 0155 $ Given - Contrast 02/14/2019 8:10 PM DIESEL RETROFIT INSTALLER 10 mL documented in this encounter Care Teams School Age Teacher Relationship Specialty Start Date End Date Jonelle Elam MD [address] [place] [address] [place] [phone] PCP - General Family Medicine 10/24/18 documented as of this encounter
--- OUTSIDE RECORDS SUMMARY | 2024-04-14 20:12 | XMS_ITS | Encounter Summary ---
Author Organization [facility] Address [address] [place] [address] Care Team Providers Care Installations Inspector Name Role Phone Jonelle Elam MD Primary Care Provider [phone] Reason for Visit * Reason Comments Abnormal Liver liver lesion ORANTES Encounter Details Date Type Department Care Team (Late st Contact Info) Description 01/02/2019 10:40 AM CDT Office Visit [facility] KESHAWNP CARMEN [facility] 3L [address] [facility], [place] [address] Lindsay Acuna MD [address] [address] Focal nodular hyperplasia of liver [...] orders with an external procedure ID of [id number]. The patient underwent the following imaging studies: [...] liver documented in this encounter Care Teams Installations Inspector Relationship Specialty Start Date End Date Jonelle Elam MD [address] [place] [address] [place] [address] PCP - General Family Medicine 10/24/18 documented as of this encounter
--- OUTSIDE RECORDS SUMMARY | 2024-04-14 20:12 | XMS_ITS | Encounter Summary ---
Author Organization [employer] Care Team Providers Care Bed And Breakfast Operator Name Role Phone Jonelle Elam MD [...] on file Legal Sex Female 10:30 PM MATERIAL DAMAGE APPRAISER Gender Identity Not on file Sexual Orientation Not on file COVID-19 Exposure Response Date Recorded In the last month, have you been in contact with someone who was confirmed or suspected to have Coronavirus / COVID-19? No / Unsure 05/01/2020 4:12 PM MATERIAL DAMAGE APPRAISER documented as of this encounter Plan of Treatment Not on file documented as of this encounter Visit Diagnoses Not on filedocumented in this encounter Care Teams Bed And Breakfast Operator Relationship Specialty Start Date End Date Jonelle Elam MD [address] [place] [address] PCP - General Family Medicine 02/22/15 documented as of this encounter
--- OUTSIDE RECORDS SUMMARY | 2024-04-14 20:12 | XMS_ITS | Clinical Summary ---
Author Organization [facility] Address [address] [place] [address] Phone Care Team Providers Care Drain Layer Name Role Phone Jonelle Elam MD Primary [...] on file Legal Sex Female 10:30 PM SIGN HANGER Gender Identity Not on file Sexual Orientation [...] DETECTED NON DETECTED 10/12/2018 9:44 PM CDT [facility] Comment: IGM Antibodies to HAV not detected. ??Does not exclude early acute or recovered HAV infection. HEP B CORE AB (IGM) NON DETECTED NON DETECTED 10/12/2018 9:44 PM CDT [facility] Comment: IGM anti-HBC not detected. ??Does not exclude the possibility of exposure to or infection with HBV. HEPATITIS B SURFACE ANTIGEN NON DETECTED NON DETECTED 10/12/2018 9:44 PM CDT [facility] Comment: A nonreactive test result does [...] 0.07 <1 S/CO 10/12/2018 9:44 PM CDT [facility] Comment: Signal/Cutoff ratio ??< 0.79 is Nondetected Signal/Cutoff ratio 0.80-0.99 is Grayzone Signal/Cutoff ratio > 0.99 is Detected Supplemental assays are recommended if signal/cutoff ratio is >/=1.00. ??Signal/cutoff ratio result >/= 5.00 is 97% predictive of positivity for recombinant immunoblot assay (RIBA) and will be reported to the [place] Department of Public Health as required. Blood specimen (specimen) Venipuncture / Unknown 10/12/2018 9:56 AM CDT 10/12/2018 11:20 AM CDT us Charles Amezcua MD HEMATOLOGY ORDERABLES F inal Result [facility] [address] [place] [id number], [place] from Last 3 Months or Most Recently Relevant to Health Maintenance Insurance [place] Care Teams Drain Layer Relationship Specialty Start Date End Date Jonelle Elam MD [address] [place] [address] PCP - General Family Medicine 02/22/15
--- OUTSIDE RECORDS SUMMARY | 2024-04-14 20:12 | XMS_ITS | Encounter Summary ---
Author Organization [facility] Address [address] [place] [address] Care Team Providers Care Cook Fruit Name Role Phone Jonelle Elam MD Primary Care Provider [phone] Reason for Referral * Radiology Services (Routine) - Closed Specialty Diagnoses / Procedures Referred By Contac t Referred To Contact MRI Diagnoses Liver lesion NAFLD (nonalcoholic fatty liver disease) Procedures MRI ABDOMEN WWO Maribel Aburto MD [address] [place] [address] [facility] [address] [place] [address] Referral ID Status Reason Start Date Expiration Date Visits Re quested Visits Authorized [id number] Closed 04/09/2020 04/09/2021 1 1 RVISOR CONTACT AND SERVICE CLERKS Encounter Details Date Type Department Care Team (Late st Contact Info) Description 04/09/2020 Orders Only [facility] - GI [address] [facility], [place] [address] Leo Quijano, RN Liver lesion [...] MRI ABDOMEN WWO CONTRAST (04/17/2020 3:43 PM SUPERVISOR CONTACT AND SERVICE CLERKS) Anatomical Region Laterality Modality Abdomen Magnetic Resonan ce 04/17/2020 4:24 PM SUPERVISOR CONTACT AND SERVICE CLERKS Impressions 04/20/2020 12:42 PM SUPERVISOR CONTACT AND SERVICE CLERKS IMPRESSION: 1. Two observations in the right [...] now severe. Dictated by Forrest Galvez MD (resident medical officer). I, Dr. KENNY COVARRUBIAS M.D. have personally reviewed and interpreted this examination/study. This report was electronically signed by KENNY COVARRUBIAS M.D. ??on 04/20/2020 12:42 PM . Narrative 04/20/2020 12:42 PM SUPERVISOR CONTACT AND SERVICE CLERKS EXAMINATION: Magnetic resonance imaging (MRI) of the [...] now severe. Dictated by Forrest Galvez MD (resident medical officer). I, Dr. KENNY COVARRUBIAS M.D. have personally [...] documented in this encounter Care Teams Cook Fruit Relationship Specialty Start Date End Date Jonelle Elam MD [address] [place] [address] [place] [phone] PCP - General Family Medicine 10/24/18 documented as of this encounter
--- OUTSIDE RECORDS SUMMARY | 2024-04-14 20:12 | XMS_ITS | Encounter Summary ---
Author Organization [facility] Care Team Providers Care Model Maker Fiberglass Name Role Phone Jonelle Elam MD Primary [...] on file Legal Sex Female 10:30 PM HEALTH SOCIAL WORK PROFESSOR Gender Identity Not on file Sexual Orientation [...] on filedocumented in this encounter Care Teams Model Maker Fiberglass Relationship Specialty Start Date End Date Jonelle Elam MD [address] [place] [address] PCP - General Family Medicine 02/22/15 documented as of this encounter
--- OUTSIDE RECORDS SUMMARY | 2024-04-14 20:12 | XMS_ITS | Encounter Summary ---
Author Organization [facility] Address [address] [place] [address] Phone Care Team Providers Care Trim Machine Adjuster Name Role Phone Jonelle Elam MD Primary Care Provider + Reason for Referral * Radiology Services (Routine) - Closed Specialty Diagnoses / Procedures Referred By Contac t Referred To Contact Radiology Diagnoses Abnormal findings on diagnostic imaging of other specified body structures Procedures MRI ABDOMEN W/WO CONTRAST Antonette Roy APRN, CAMP DINING ROOM ATTENDANT [address] [place] [address] Phone: tel: fax: Referral ID Status Reason Start Date Expiration Date Visits Re quested Visits Authorized [id number] Closed 12/03/2020 1 1 Encounter Details Date Type Department Care Team (Latest Contact Info) Description 12/03/2020 Transcribe Orders [facility] Central Scheduling [address] [place] [address] Antonette Roy APRN, CAMP DINING ROOM ATTENDANT [address] [place] [address] Abnormal findings on diagnostic imaging of [...] on file Legal Sex Female 10:30 PM CAGE FIGHTER Gender Identity Not on file Sexual Orientation [...] Primary documented in this encounter Care Teams Trim Machine Adjuster Relationship Specialty Start Date End Date Jonelle Elam MD [address] [place] [address] PCP - General Family Medicine 02/22/15 documented as of this encounter
--- OUTSIDE RECORDS SUMMARY | 2024-04-14 20:12 | XMS_ITS | Encounter Summary ---
Author Organization [facility] Address [address] [facility] [place] [address] Care Team Providers Care Hand Salter Name Role Phone Jonelle Elam MD Primary Care Provider [phone] Reason for Visit * Reason Onset Date Comments Order 01/16/2020 Encounter Details Date Type Department Care Team (Late st Contact Info) Description 01/16/2020 Telephone [facility] [address] [place] [phone] Rain Claros MD [address] [place] [address] Order Social History Tobacco Use [...] unspecified documented in this encounter Care Teams Hand Salter Relationship Specialty Start Date End Date Jonelle Elam MD [address] [place] [address] [place] [address] PCP - General Family Medicine 10/24/18 documented as of this encounter
--- OUTSIDE RECORDS SUMMARY | 2024-04-14 20:12 | XMS_ITS | Encounter Summary ---
Author Organization [facility] Address [address] [facility] [place] [address] Care Team Providers Care Occupational Therapy Program Director Name Role Phone Jonelle Elam MD Primary Care Provider [phone] Reason for Visit * Reason Comments Bariatric Surgery Initial Assessment * Evaluate & Treat (Routine) - Closed Specialty Diagnoses / Procedures Referred By Ritika bonner Referred To Contact Weight Management Diagnoses Obesity, unspecified Selfreferral, Patient [facility] [address] [place] [address] Referral ID Status Reason Start Date Expiration Date Visits Re quested Visits Authorized [id number] Closed 12/06/2019 12/05/2020 1 1 Encounter Details Date Type Department Care Team (Latest Contact Info) Description 01/16/2020 2:00 PM CDT Office Visit [facility] [address] [place] [address] Rain Claros MD [address] [place] [address] Gastroesophageal reflux disease without esophagitis [...] get a COVID-19 test done at an [facility] or [facility] on Monday, Feb 01 before 12 pm [...] you when you arrive at the hospital. [facility] ([place] [address] [place])- Monday-Monday 6a-5p [facility] - [place] - Testing via drive up tent - please call from your call when you arrive. [facility] [place] [phone] Monday-Monday-6p Monday- [facility] - [place] - Testing via drive up tent - please call from your call when youarrive. [address] [address] Monday-Monday-6p Monday- GENERAL GUIDELINES ??? All surgery [...] ??? Remove all jewelry, make up, finger/toe maltese and body piercings prior to your arrival [...] Claros MD - 01/16/2020 3:47 PM CDT [facility] [place] [address] . . Date of encounter: No admission date for patient encounter. Provider: Rain Claros MD Patient: Deya Campbell CSN: [id number] Specialty: Bariatric Surgery Date of : 1995 [...] refractory morbid obesity and failure to achieve chcf weight loss, she wasseen at [facility] at [place], [place]. The procedure requested is Sleeve Gastrectomy. Weight History: [place] body weight: 50.9 kg (112 lb 4.6 [...] file Gets together: Not on file Attends yarsani service: Not on file Active member of [...] No palpable visceromegaly. No palpableventral hernias. Skin: [place] and moist. No ulcers, rashes, or lesions. Extremities: Well perfused. No gross joint deformity noted Neurological: Cranial nerves 2-12 were grossly intact. Psychiatric: The patient's mood and affect appeared to be appropriate Labs No results for input(s): WBC, RBC, HGB, HCT, PLTCOUNT in the last 55610 hours. No results for input(s): SODIUM, POTASSIUM, CO2, BUN, CREATININE in the last 33805 hours. Invalid input(s): CLORIDE No results for input(s): GLUCOSE in the last 65126 hours. Recent Labs Component Name 04/12/19 1514 01/02/19 1236 AST 16 20 ALT 12 24 No results for input(s): LDL, HDL, TRIG, TSH in the last 83814 hours. No results for input(s): HGBA1C in the last 89861 hours. Some lab results will be in [...] physician supervised diet Follow up: Will see me/PA/TEACHER OF GIFTED STUDENTS in 1 month she meets the criteria as set by the National [place] of Health that recommends bariatric surgeryon people [...] and having very close follow-up with a crisis nurse and me. In addition she must attend [...] will have additional education provided by the residential program worker and crisis nurse at [facility]. Because of the significant changes in her eating habits she will have to see a crisis nurse prior to and following surgery. I have [...] disease documented in this encounter Care Teams Occupational Therapy Program Director Relationship Specialty Start Date End Date Jonelle Elam MD [address] [place] [address] ROGELIO Reinoso [phone] PCP - General Family Medicine 10/24/18 documented as of this encounter
--- OUTSIDE RECORDS SUMMARY | 2024-04-14 20:12 | XMS_ITS | Encounter Summary ---
Author Organization [facility] Address [address] [place] [address] Care Team Providers Care Recruitment Director Name Role Phone Jonelle Elam MD Primary Care Provider [phone] Encounter Details Date Type Department Care Team (Late st Contact Info) Description 03/09/2020 Orders Only [facility] [address] [place] [phone] Manju Rainey, [address] [place] [address] Social History Tobacco Use Types Packs/Day Years [...] lab orders faxed over. See media 03/09/2020. RESS DEVELOPER documented in this encounter Plan of Treatment Not on file documented as of this encounter Visit Diagnoses Not on filedocumented in this encounter Care Teams Recruitment Director Relationship Specialty Start Date End Date Jonelle Elam MD [address] [place] [address] [place] [phone] PCP - General Family Medicine 10/24/18 documented as of this encounter
--- OUTSIDE RECORDS SUMMARY | 2024-04-14 20:12 | XMS_ITS | Encounter Summary ---
Author Organization [facility] Address [address] [facility] [place] [address] Care Team Providers Care Central Supply Worker Name Role Phone oJnelle Elam MD Primary Care Provider [phone] Reason for Visit * Reason Comments Obesity Follow Up Encounter Details Date Type Department Care Team (Late st Contact Info) Description 03/11/2020 2:00 PM CORE LAYING MACHINE OPERATOR Video Visit [facility] [address] [place] [phone] Manju Rainey, DO [address] [place], [place] [address] Obesity, morbid, BMI 50 or higher (HCC) [...] (308 lb 3.2 oz) 03/11/2020 1:00 PM CORE LAYING MACHINE OPERATOR per pt Height 158.4 cm (5' 2.36 ) 03/11/2020 1:00 PM CS T Body Mass Index 55.72 03/11/2020 1:00 PM CORE LAYING MACHINE OPERATOR documented in this encounter Patient Instructions * Patient Instructions* Manju Rainey, DO - 03/11/2020 4:06 PM CORE LAYING MACHINE OPERATOR Images from the original note were not included. Patient Education Weight Management POUNCING MACHINE OPERATOR: Why it is important to manage [...] foods. Some examples of high-fat foods include japanese fries, doughnuts, ice cream, and cakes. ?? [...] on your weight loss goals. ?? Copyright [employer] 2019 Information is for End User's use only and may not be sold, redistributed or otherwise used for commercial purposes. All illustrations and images included in CareNotes?? are the copyrighted property of [email or web address], [employer]. or [employer] The above information is an educational recruiter only. It is not intended as medical advice for individual conditions or treatments. Talk to your doctor, nurse or pharmacist before following any medical regimen to see if it is safe and effective for you. LAYING MACHINE OPERATOR documented in this encounter Progress Notes * Manju Rainey DO - 03/11/2020 4:05 PM CST Images from the original note were not included. [facility] [place] [address] . . Telemedicine Note Today's visit was conducted virtually due to COVID-19 countermeasures. The patient has given verbalconsent to have today's visit conducted by this same means with treatment provided remotely. The patient verbally consents to the billing and collection practices of [facility]. Patient location: A parked car in a private setting. This encounter was performed using: audio and video Time spent with patient/proxy: Seventeen minutes Date of encounter: 03/11/2020 Provider: Manju Rainey DO Patient: Deya Campbell CSN: [id number] Specialty: Bariatrics. Date of : 1995 Visit [...] hours. 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 She states that people leave snacks and sodas and bottled water in appreciation for deliveries. Sometimes it is hard to practice stimulus control. Nutrition: Patient is taking her vitamin daily. Also will start vitamin-D. Breakfast: Protein shakeor bar. Lunch: [place] on locale bread. Dinner: Meat, vegetable, cottage [...] you have an unusual work schedule? na [place] Sleepiness Scale total points: 9 Past Medical [...] ??? vitamin D, ergocalciferol, (DRISDOL) 1.25 MG (76857 UT) capsule Take 1 capsule by mouth [...] reduction. Labs Recent Labs Component Name 04/12/19 6551 01/02/19 1236 AST 16 20 ALT 12 [...] 50% of the time was in video [id number] counseling with the patient regarding increased physical activity, reduced caloric intake, healthy diet and behavioral modifications. Manju Rainey DO CC: Jonelle Elam MD LAYING MACHINE OPERATOR documented in this encounter Plan of [...] unspecified documented in this encounter Care Teams Central Supply Worker Relationship Specialty Start Date End Date Jonelle Elam MD [address] [place] [phone] PCP - General Family Medicine 10/24/18 documented as of this encounter
--- OUTSIDE RECORDS SUMMARY | 2024-04-14 20:12 | XMS_ITS | Encounter Summary ---
Author Organization [facility] Address [address] [place] [address] Phone Care Team Providers Care Corporate Services Manager Name Role Phone Jonelle Elam MD Primary Care Provider + Reason for Visit * Reason Comments Wound Check Encounter Details Date Type Department Care Team (Late st Contact Info) Description 12/04/2020 6:04 PM CDT - 12/04/2020 7:57 PM CDT Emergency [facility] Emergency [address] [place] [phone] Ellen Gordon, PAC [address] [place] [address] Insect bite of left arm Discharge Disposition: Discharged to home or Selfcare Social History Tobacco Use Types Packs/Day Years Used Date Smoking Tobacco: Never Smokeless Tobacco: Never Alcohol Use Standard Drinks/Week Comments No 0 (1 standard drink = 0.6 oz pur e alcohol) Comments No Sex and Gender Information Value Date Recorded Sex Assigned at Not on file Legal Sex Female 10:30 PM POOL NURSE Gender Identity Not on file Sexual Orientation [...] Care Everywhere. * Bites and Stings, Insect ([place]) documented in this encounter Medications at Time [...] EXAM, HEMORRHOIDS; Surgeon: Charles Amezcua MD; Location: [facility] GI [facility]; Service: Gastroenterology ??? [...] the care of this patient with the HAND TURNER/PA. I did not personally examine this patient. I agree with the HAND TURNER/PA???s findings and defer to the attached note. [...] RN) documented in this encounter Care Teams Corporate Services Manager Relationship Specialty Start Date End Date Jonelle Elam MD [address] [place] [address] PCP - General Family Medicine 02/22/15 documented as of this encounter
--- OUTSIDE RECORDS SUMMARY | 2024-04-14 20:12 | XMS_ITS | Encounter Summary ---
Author Organization [facility] Address [address] [place] [address] Care Team Providers Care Hyperbaric Technician Name Role Phone Jonelle Elam MD Primary Care Provider [phone] Reason for Referral * Radiology Services (Routine) - Closed Specialty Diagnoses / Procedures Referred By Contac t Referred To Contact Diagnoses Fatty liver Procedures PROC FIBROSCAN Tejas Jamil MD [address] [address] Referral ID Status Reason Start Date Expiration Date Visits Re quested Visits Authorized [id number] Closed 11/05/2018 05/04/2019 1 1 Encounter Details Date Type Department Care Team (Late st Contact Info) Description 11/05/2018 Orders Only [facility] - [address] [place] [address] [place] [phone] Giselle Sierra, RN Fatty liver Social History Tobacco Use Types Packs/Day Years Used Date Smoking Tobacco: Never Assessed Sex and Gender Information Value Date Recorded Sex Assigned at Not on file Gender Identity Not on file Sexual Orientation Not on file documented as of this encounter Plan of Treatment Not on file documented as of this encounter Results * [place] LIVER ELASTOGRAPHY (11/05/2018 2:54 PM CDT) Narrative [...] change as additional supporting data becomes available. [email or web address] Tejas Jamil MD PROCEDURE/ MINOR SURGICAL ORDERABLES documented in this encounter Visit Diagnoses Diagnosis Fatty liver- Primary Other chronic nonalcoholic liver disease Fatty liver- Primary Other chronic nonalcoholic liver disease documented in this encounter Care Teams Hyperbaric Technician Relationship Specialty Start Date End Date Jonelle Elam MD [address] [place] [address] [place] [phone] PCP - General Family Medicine 10/24/18 documented as of this encounter
--- OUTSIDE RECORDS SUMMARY | 2024-04-14 20:12 | XMS_ITS | Encounter Summary ---
Author Organization [facility] Address [address] [place] [address] Phone Care Team Providers Care Beef Grinder Name Role Phone Jonelle Elam MD Primary Care Provider + Encounter Details Date Type Department Care Team (Latest Contact Info) Description 10/17/2020 Transcribe Orders [facility] Admitting [address] [place] [address] Jonelle Elam MD [address] [place] [address] Morbid obesity (HCC) (Primary Dx) Social History Tobacco Use Types Packs/Day Years Used Date Smoking Tobacco: Never Smokeless Tobacco: Never Alcohol Use Standard Drinks/Week Comments No 0 (1 standard drink = 0.6 oz pur e alcohol) Comments No Sex and Gender Information Value Date Recorded Sex Assigned at Not on file Legal Sex Female 10:30 PM PHARMACY TECHNOLOGY INSTRUCTOR Gender Identity Not on file Sexual Orientation Not on file documented as of this encounter Plan of Treatment Not on file documented as of this encounter Results * HEMOGLOBIN A1C W/ ESTIMATED GLUCOSE (10/17/2020 9:20 AM CDT) HGB-A1C 5.6 4.0 - 6.0 % 10/17/2020 10:18 AM CDT [facility] Est Average Glucose 114.0 mg/dL 10/17/2020 10:18 AM CDT [facility] Blood Venipuncture / Unknown 10/17/2020 9:20 AM CDT 10/17/2020 10:02 AM CDT Narrative [facility] - 10/17/2020 10:18 AM CDT HEMOGLOBIN A1C: DIABETIC PATIENTS: WELL-CONTROLLED: ?? 6.2 - 7.0 INTERMEDIATE WELL-CONTROLLED: ??7.0 - 9.0 POORLY-CONTROLLED: ??>9.0 Jonelle Elam MD CHEMISTRY ORDERABLES Fin al Result Performing Organization Address City/[facility]/ZIP Co de Phone Number [facility] [place] [address] * (ABNORMAL) IRON (FE) (10/17/2020 9:20 AM CDT) IRON 27.90(L) 37 - 145 mcg/dL 10/17/2020 10:38 AM CDT [facility] Blood Venipuncture / Unknown 10/17/2020 9:20 AM CDT 10/17/2020 10:13 AM CDT Jonelle Elam MD CHEMISTRY ORDERABLES Fin al Result Performing Organization Address City/[facility]/ZIP Co de Phone Number [facility] [place] [address] * THYROID STIMULATING HORMONE (TSH) (10/17/2020 9:20 AM CDT) TSH 1.950 0.270 - 4.200 mIU/L 10/17/2020 10:38 AM CDT [facility] Blood Venipuncture / Unknown 10/17/2020 9:20 AM CDT 10/17/2020 10:13 AM CDT Jonelle Elam MD CHEMISTRY ORDERABLES Fin al Result Performing Organization Address City/[facility] Co de Phone Number [facility] [place] [address] * (ABNORMAL) VITAMIN D, 25 HYDROXY TOTAL (10/17/2020 9:20 AM CDT) VITAMIN D, 25 HYDROX 20(L) >=30 ng/mL 10/17/2020 10:49 AM CDT [facility] Blood Venipuncture / Unknown 10/17/2020 9:20 AM CDT 10/17/2020 10:14 AM CDT Narrative [facility] - 10/17/2020 10:49 AM CDT Published reference ranges for Vitamin D vary depending on time and place and method of testing, and on patient's age, sex, ethnicity and levels of other measured analytes such as parathormone, calcium and phosphorus. ??The result should be evaluated in conjunction with clinical findings and suspicions. [employer] of [employer] and Endocrine Clinical Practice Guidelines: Status Vitamin D levels (ng/mL) Deficient <=20 At risk of inadequacy 21-29 Sufficient 30-100 Centers of Disease Control and Prevention Guidelines: Status Vitamin D levels (ng/mL) Deficient <13 At risk of inadequacy 13-19 Sufficient 20-50 Possibly harmful >50 References: [employer], 2010 Dietary reference intakes for calcium and vitamin D. [place]: ??The National Academies Press. Nicki M, Jeffry N, David DONOVAN, et al., Evaluation, treatment, and prevention of Vitamin D deficiency: an Endocrinology Clinical Practice Guideline. JCEM 2011 96: 7 8999-8515. Adelita A, Dago C, Raimundo D, et al., Vitamin D Status: ??[place], 2000- 1005, FORMERLY [facility], 1928–1983 data brief, no. 59, MD [place]: ??National Center for Health Statistics. 2011. Jonelle Elam MD CHEMISTRY ORDERABLES Fin al Result Performing Organization Address City/[facility] Co de Phone Number [facility] [place] [address] documented in this encounter Visit Diagnoses Diagnosis Morbid obesity (HCC)- Primary Morbid obesity documented in this encounter Care Teams Beef Grinder Relationship Specialty Start Date End Date Jonelle Elam MD [address] [place] [address] PCP - General Family Medicine 02/22/15 documented as of this encounter
--- OUTSIDE RECORDS SUMMARY | 2024-04-14 20:12 | XMS_ITS | Encounter Summary ---
Author Organization [facility] Address [address] [place] [address] Care Team Providers Care Can Cleaner Name Role Phone Jonelle Elam MD Primary Care Provider [phone] Reason for Visit * Reason Comments Results Encounter Details Date Type Department Care Team (Late st Contact Info) Description 01/04/2019 Telephone [facility] - [address] [phone] Leo Quijano, RN Results Social History Tobacco [...] on filedocumented in this encounter Care Teams Can Cleaner Relationship Specialty Start Date End Date Jonelle Elam MD [address] [place] [address] [place] [phone] PCP - General Family Medicine 10/24/18 documented as of this encounter
--- OUTSIDE RECORDS SUMMARY | 2024-04-14 20:12 | XMS_ITS | Encounter Summary ---
Author Organization [facility] Address [address] [place] [address] Care Team Providers Care Armature Tester Name Role Phone Jonelle Elam MD Primary Care Provider Manju Rainey DO Unavailable Skylar Canales PA-C Unavailable [phone] Encounter Details Date Type Department Care Team (Late st Contact Info) Description 01/08/2019 Telephone [facility] IVR [address] [place] [phone] Arianna Lane RN Social History Tobacco Use [...] have been done at, but neither hospital ([place] or [place]) has record of MRI there. Advised pt we wouldbe calling her to schedule a new MRI, pt understands and is ok with this. documented in this encounter Plan of Treatment Not on file documented as of this encounter Visit Diagnoses Not on filedocumented in this encounter Care Teams Armature Tester Relationship Specialty Start Date End Date Jonelle Elam MD [address] [place] [address] PCP - General Family Medicine 10/24/18 Manju Rainey DO [address] [place] [address] Bariatrics 08/11/20 Skylar Canales PA-C [address] [facility] 3[facility] [address] Physician Hotel Receptionist Nephrology 03/04/22 documented as of this encounter
--- OUTSIDE RECORDS SUMMARY | 2024-04-14 20:12 | XMS_ITS | Encounter Summary ---
Author Organization [facility] Address [address] [place] [address] Care Team Providers Care Office Clin Asst Name Role Phone Jonelle Elam MD Primary Care Provider [phone] Encounter Details Date Type Department Care Team (Late st Contact Info) Description 02/03/2020 2:00 PM BLEACH BOILER FILLER Procedure visit [facility] - [address] [facility], [place] [phone] Nik Kitchen MD [address] [id number] Lindsay Acuna MD [address] [address] Nonalcoholic fatty liver disease ; [...] patients with nonalcoholic fatty liver disease. Gastroenterology 2019;156:0915-5680. Tammi MS, Rae R, Van Carlos Alberto [...] FIB4 score (Brissa et al. Hepat[employer] Communications 2019;3:3820-9887) or NAFLD Fibrosis score (Johnston et al. Clinical Gastroenterology and Hepatology 2019;17:8658-7349. from routine clinical data. 3. Liver stiffness [...] becomes available. [email or web address] CH BOILER FILLER documented in this encounter Procedure Notes * [...] patients with nonalcoholic fatty liver disease. Gastroenterology 2019;156:4363-5507. Tammi MS, Rae R, Van Carlos Alberto [...] FIB4 score (Davyduke et al. Hepat[employer] Communications 2019;3:2146-8546) or NAFLD Fibrosis score (Johnston et al. Clinical Gastroenterology and Hepatology 2019;17:8911-6686. from routine clinical data. 3. Liver stiffness [...] becomes available. [email or web address] CH BOILER FILLER documented in this encounter Plan of Treatment Not on file documented as of this encounter Procedures Procedure Name Priority Date/Time Associated Diagnosis Comments NJ LIVER ELASTOGRAPHY Routine 02/03/2020 2:23 PM BLEACH BOILER FILLER Nonalcoholic fatty liver disease Liver lesion Focal nodular hyperplasia of liver documented in this encounter Results * PROC FIBROSCAN (02/03/2020 2:23 PM BLEACH BOILER FILLER) Narrative Tejas Smith MD - 02/03/2020 2:23 PM BLEACH BOILER FILLER Tejas Smith MD ? 02/07/2020 11:02 PM [...] patients with nonalcoholic fatty liver disease. Gastroenterology 2019;156:8868-9457. Tammi MS, Rae R, Van Carlos Alberto [...] FIB4 score (Davyduke et al. Hepatology Communications 2019;3:7237-6584) or NAFLD Fibrosis score (Johnston et al. Clinical Gastroenterology and Hepatology 2019;17:3840-1697. from routine clinical data. 3. Liver stiffness [...] change as additional supporting data becomes available. [email or web address] Maribel Kitchen MD PROCEDURE/MINOR SURG ICAL ORDERABLES documented in this encounter Visit Diagnoses Diagnosis Nonalcoholic fatty liver disease- Primary Other chronic nonalcoholic liver disease Liver lesion Other specified disorders of liver Focal nodular hyperplasia of liver Other specified disorders of liver documented in this encounter Care Teams Office Clin Asst Relationship Specialty Start Date End Date Jonelle Elam MD [address] [place] [address] [place] [address] PCP - General Family Medicine 10/24/18 documented as of this encounter
--- OUTSIDE RECORDS SUMMARY | 2024-04-14 20:12 | XMS_ITS | Encounter Summary ---
Author Organization [facility] Care Team Providers Care Ball Racker Name Role Phone Jonelle Elam MD Primary [...] on file Legal Sex Female 10:30 PM SENIOR UI WEB DEVELOPER Gender Identity Not on file Sexual Orientation [...] on filedocumented in this encounter Care Teams Ball Racker Relationship Specialty Start Date End Date Jonelle Elam MD [address] [place] [address] PCP - General Family Medicine 02/22/15 documented as of this encounter
--- OUTSIDE RECORDS SUMMARY | 2024-04-14 20:12 | XMS_ITS | Encounter Summary ---
Author Organization [facility] Address [address] [place] [address] Phone Care Team Providers Care Lay Out Former Name Role Phone Jonelle Elam MD Primary Care Provider + Reason for Visit * Reason Onset Date Comments ED Follow-up 05/05/2020 ED call back Encounter Details Date Type Department Care Team (Late st Contact Info) Description 05/05/[address] [facility] Emergency [address] [place] [address] Yoli Pardo RN [place] ED Follow-up (ED call back) Social History Tobacco Use Types Packs/Day Years Used Date Smoking Tobacco: Never Smokeless Tobacco: Never Alcohol Use Standard Drinks/Week Comments No 0 (1 standard drink = 0.6 oz pur e alcohol) Comments No Sex and Gender Information Value Date Recorded Sex Assigned at Not on file Legal Sex Female 10:30 PM PIPE FITTER FIRE SPRINKLER SYSTEMS Gender Identity Not on file Sexual Orientation Not on file COVID-19 Exposure Response Date Recorded In the last month, have you been in contact with someone who was confirmed or suspected to have Coronavirus / COVID-19? No / Unsure 05/04/2020 1:32 PM PIPE FITTER FIRE SPRINKLER [employer] documented as of this encounter Miscellaneous Notes * Telephone Encounter - Yoli Pardo RN - 05/05/2020 11:19 AM CST Attempted to contact patient for ED call back. No answer. FITTER FIRE SPRINKLER SYSTEMS documented in this encounter Plan of Treatment Not on file documented as of this encounter Visit Diagnoses Not on filedocumented in this encounter Additional Health Concerns Infection Onset Date Last Indicated Resolved Time COVID - 19 Confirmed 05/04/2020 05/04/2020 021 12:18 AM PIPE FITTER FIRE SPRINKLER [employer] documented as of this encounter Care Teams Lay Out Former Relationship Specialty Start Date End Date Jonelle Elam MD [address] [place] [address] PCP - General Family Medicine 02/22/15 documented as of this encounter
--- OUTSIDE RECORDS SUMMARY | 2024-04-14 20:12 | XMS_ITS | Encounter Summary ---
Author Organization [facility] Address [address] [place] [address] Care Team Providers Care Cook Railroad Name Role Phone Jonelle Elam MD Primary Care Provider [phone] Encounter Details Date Type Department Care Team (Late st Contact Info) Description 01/02/2019 10:20 AM CDT Office Visit [facility] [address]L [address] [facility], [place] [phone] Edward Alvarado MD [address] [place] [address] FIRST LEVEL DIV OF RADIOLOGY [place], [place] [id number] Liver mass, right lobe (Primary Dx) Social [...] Patient: Deya Campbell Date of : 1995 Factory Focus Technician: None Transplant surgeon: None PCP: Dr. Jonelle [...] file Gets together: Not on file Attends episcopalian service: Not on file Active member of [...] HCT, PLT, PLTCOUNT, PLATELET in the last 92658 hours. No results for input(s): INR in the last 49864 hours. No results for input(s): NA, K, GLUCOSE, CREATININE, EGFR in the last 77455 hours. Recent Labs Component Name 01/02/19 1236 [...] also informed that any one of the [facility] Interventional R adiology group doctors (Dr. Precious [...] care of this patient. Edward Alvarado M.D. Underwriting Support Manager Vascular & Interventional Radiology [facility] documented in this encounter Plan of Treatment Not on file documented as of this encounter Visit Diagnoses Diagnosis Liver mass, right lobe- Primary Unspecified disorder of liver documented in this encounter Care Teams Cook Railroad Relationship Specialty Start Date End Date Jonelle Elam MD [address] [place] [address] [place] [address] PCP - General Family Medicine 10/24/18 documented as of this encounter
--- OUTSIDE RECORDS SUMMARY | 2024-04-14 20:12 | XMS_ITS | Encounter Summary ---
Author Organization [facility] Address [address] [facility] [place] [address] Care Team Providers Care Drug Abuse Treatment Specialist Name Role Phone Jonelle Elam MD Primary Care Provider [phone] Reason for Referral * Consult, Test & Treat (Routine) - Closed Specialty Diagnoses / Procedures Referred By Contac t Referred To Contact Diagnoses Short interval between pregnancies affecting , antepartum (HCC) Maternal morbid obesity, antepartum (HCC) Supervision of high-risk of young multigravida (HCC) Chronic hypertension affecting (HCC) History of delivery NAFLD (nonalcoholic fatty liver disease) Procedures MATERNAL MEDICINE CONSULT Taurus Maldonado MD [address] [facility] [place] [address] Referral ID Status Reason Start Date Expiration Date Visits Re quested Visits Authorized [id number] Closed 08/12/2019 02/08/2020 1 1 Reason for Visit * Reason Comments Consultation Ultrasound * Evaluate & Treat (Routine) - Closed Specialty Diagnoses / Procedures Referred By Contac t Referred To Contact Maternal Medicine Diagnoses Obesity complicating , unspecified trimester (HCC) Liver disease, unspecified Fatty (change of) liver, not elsewhere classified Procedures CT FULL ROUT OBSTE CARE,VAGINAL DELIV Taurus Maldonado MD [address] [place] [address] [facility] [address] [place] [address] Referral ID Status Reason Start Date Expiration Date Visits Re quested Visits Authorized [id number] Closed 06/05/2019 12/02/2019 20 20 Encounter Details Date Type Department Care Team (Latest Contact Info) Description 08/14/2019 1:31 PM CDT - 08/14/2019 11:59 PM CDT Hospital Encounter [facility] Maternal & Care [address] [id number] Annette Sauceda MD [address] [address] Discharge Disposition: Home or Self Care Social [...] that was never started by the primary resin maker.Now too late to start since well after 20 weeks. Recent cramping and losing some of her mucus plug. Maternal Medicine recommendations: 14. labor precautions 15. Warrant increased surveillance by primary resin maker Lumbar herniated disc Still with back pain. [...] testing every trimester--to be ordered by primary resin maker 24. please forward a copy of the glucose challenge test results Frequent headaches Has not been able to knot picker cloth riboflavin from her pharmacy. Maternal Medicine recommendations: 2. encouraged to look for an tmlf-qkd-ptggjsi vitamin-B complex Additionally, we discussed the use [...] CDT Narrative 08/14/2019 2:51 PM CDT ? [facility] Maternal Medicine ? Maternal & Care Center ?PHONE: ??FAX: Pat. Name: ?MARY CARMEN CROSS Pat. No: ?[id number] Study Date: ?? 08/14/2019 ??1:47pm , Age: ? 1995, 23 Pregnancies: ?? 3, Para 2 Height: ? 61 in Weight: ? 288 lb LMP: ?Unknown GA by Base: ?? 28w4d ?? LUISA: 11/02/2019 GA by US: ? 29w0d ?? LUISA: 10/30/2019 GA Selected: ??28w4d (From [facility]) LUISA: ?11/02/2019 Referring MD: Ede Maldonado MD Welcome Desk Agent: ??Jackeline Baker, RDMS, RDCS CPT4: ? [address] BMI: ?54.41 Hist/Ind: ? Completed Anatomy Screen ?Maternal Liver Lesion ?Class IV Obesity ?CHTN ?PTD @36wks x2 MEASUREMENTS & AGE ? GROWTH EVALUATION Measurement ??GA ? Range ? Srce %for GA Ratios ----- ---- ------- BPD ??7.3 cm 29w2d (18v2d-49j7b) Hadl BPD 60% FL/BPD 0.76 (0.71 - 0.87) HC ??27.2 cm 29w5d (99l0m-23t7c) Hadl HC ??54% FL/AC ??0.22 (0.20 - 0.24) AC ??25.1 cm 29w2d (58s6a-49m8d) Hadl AC ??63% HC/AC ??1.09 (0.99 - 1.18) FL ?? 5.6 cm 29w2d (13f6d-76k9f) Hadl FL ??55% CI ? 0.75 (0.70 - 0.86) HL ?? 5.0 cm 29w2d (44m6f-31a6q) Errol HL ??61% GA for sonogram 29w0d (25h3r-07a0x) ?? Weight Estimate: based on (BPD,HC,AC,FL) Hadlock [...] <Electronic Signature> ??08/14/2019 02:52pm Taurus Maldonado MD [facility] ORDERABLES documented in this encounter Visit Diagnoses [...] Frequent headaches Has not been able to knot picker cloth riboflavin from her pharmacy. Maternal Medicine recommendations: 1. encouraged to look for an vspj-ddf-ukidnoh vitamin-B complex * Assessment & Plan Note - Annette Sauceda MD - 08/14/2019 4:25 PM CDT Associated Problem(s): NAFLD (nonalcoholic fatty liver disease) Remains at risk for complications of related to pre-existing liver disease and suspected chronic hypertension. Maternal Medicine recommendations: 1. Serial liver function testing every trimester--to be ordered by primary resin maker 2. please forward a copy of [...] that was never started by the primary resin maker.Now too late to start since well after 20 weeks. Recent cramping and losing some of her mucus plug. Maternal Medicine recommendations: 1. labor precautions 2. Warrant increased surveillance by primary resin maker * Assessment & Plan Note - Annette [...] from documented in this encounter Care Teams Drug Abuse Treatment Specialist Relationship Specialty Start Date End Date Jonelle Elam MD [address] [place] [address] [place] [phone] PCP - General Family Medicine 10/24/18 documented as of this encounter
--- OUTSIDE RECORDS SUMMARY | 2024-04-14 20:12 | XMS_ITS | Encounter Summary ---
Author Organization [facility] Address [address] [facility] [place] [address] Care Team Providers Care Internet Site Designer Name Role Phone Jonelle Elam MD Primary Care Provider [phone] Encounter Details Date Type Department Care Team (Late st Contact Info) Description 03/21/2020 Orders Only [facility] Weight Management Services [address] [place] [address] Rain Claros MD [address] [place] [phone] Gastroesophageal reflux disease without esophagitis; Diverticulitis; Morbid [...] disease documented in this encounter Care Teams Internet Site Designer Relationship Specialty Start Date End Date Jonelle Elam MD [address] [place] [address] [place] [phone] PCP - General Family Medicine 10/24/18 documented as of this encounter
--- OUTSIDE RECORDS SUMMARY | 2024-04-14 20:12 | XMS_ITS | Encounter Summary ---
Author Organization [facility] Address [address] [place] [address] Care Team Providers Care Anesthesiologist Assistant Name Role Phone Jonelle Elam MD Primary Care Provider [phone] Reason for Visit * Reason Comments Abnormal Liver FNH? Encounter Details Date Type Department Care Team (Late st Contact Info) Description 01/11/2019 Telephone [facility] [address] [place] [phone] Nasir Knight RN Abnormal Liver (FNH?) Social [...] 01/28/19@ 545pm. She will report to the [facility] for [facility]. NPO for 4 hours prior documented in this encounter Plan of Treatment Not on file documented as of this encounter Visit Diagnoses Not on filedocumented in this encounter Care Teams Anesthesiologist Assistant Relationship Specialty Start Date End Date Jonelle Elam MD [address] [place] [address] [place] [phone] PCP - General Family Medicine 10/24/18 documented as of this encounter
--- OUTSIDE RECORDS SUMMARY | 2024-04-14 20:12 | XMS_ITS | Encounter Summary ---
Author Organization [facility] Address [address] [place] [address] Care Team Providers Care Stylist Apprentice Name Role Phone Jonelle Elam MD Primary Care Provider [phone] Reason for Referral * Radiology Services (Routine) - Closed Specialty Diagnoses / Procedures Referred By Ritika bonner Referred To Contact MRI Diagnoses Liver mass Procedures MRI ABDOMEN WWO CONTRAST Edward Alvarado MD [address] [place] [address] [facility] Mri [address] [place] [address] Referral ID Status Reason Start Date Expiration Date Visits Re quested Visits Authorized [id number] Closed 01/23/2019 03/08/2019 1 1 Encounter Details Date Type Department Care Team (Late st Contact Info) Description 01/08/2019 Orders Only [facility] IVR [address] [place] [address] Linda Blackman, RN Liver mass [...] MRI ABDOMEN WWO CONTRAST (02/14/2019 8:08 PM VOCATIONAL EXAMINER) Anatomical Region Laterality Modality Abdomen Magnetic Resonan ce 02/15/2019 8:54 AM VOCATIONAL EXAMINER Impressions 02/15/2019 10:09 AM VOCATIONAL EXAMINER IMPRESSION: 1. Two observations in hepatic segment 7 and 8 measuring up to 4.3 cm demonstrating hyperintensity on hepatobiliary phase sequences , consistent with focal nodular hyperplasia (FNH). 2. Mild diffuse hepatic steatosis. Dictated By Adam Lewis M.D. (associate professor of radiology) I, Dr. KENNY COVARRUBIAS M.D. have personally reviewed and interpreted this examination/study. This report was electronically signed by KENNY COVARRUBIAS M.D. ??on 02/15/2019 10:09 AM . Narrative 02/15/2019 10:09 AM VOCATIONAL EXAMINER EXAMINATION: Magnetic resonance imaging (MRI) of the [...] hepatic steatosis. Dictated By Adam Lewis M.D. (associate professor of radiology) I, Dr. KENNY COVARRUBIAS M.D. have personally reviewed and interpreted this examination/study. This report was electronically signed by KENNY COVARRUBIAS M.D. on 02/15/2019 10:09 AM . Edward Alvarado MD MR ORDERABLES documented in this encounter Visit Diagnoses Diagnosis Liver mass- Primary Unspecified disorder of liver documented in this encounter Care Teams Stylist Apprentice Relationship Specialty Start Date End Date Jonelle Elam MD [address] [place] [address] [place] [phone] PCP - General Family Medicine 10/24/18 documented as of this encounter
--- OUTSIDE RECORDS SUMMARY | 2024-04-14 20:12 | XMS_ITS | Encounter Summary ---
Author Organization [facility] Address [address] [place] [address] Care Team Providers Care Life Underwriter Name Role Phone Jonelle Elam MD Primary Care Provider [phone] Reason for Referral * Consult, Test & Treat (Routine) - Closed Specialty Diagnoses / Procedures [facility] Referred To Contact Diagnoses NAFLD (nonalcoholic fatty liver disease) Liver lesion Supervision of high-risk of young multigravida (HCC) Procedures MATERNAL MEDICINE CONSULT Taurus Maldonado MD [address] [place] [address] Referral ID Status Reason Start Date Expiration Date Visits Re quested Visits Authorized [id number] Closed 06/04/2019 12/01/2019 1 1 LIER QUALITY SPECIALIST Reason for Visit * Reason Comments Ultrasound Consultation * Evaluate & Treat (Routine) - Closed Specialty Diagnoses / Procedures [facility] Referred To Contact Maternal Medicine Diagnoses Obesity complicating , unspecified trimester (HCC) Liver disease, unspecified Fatty (change of) liver, not elsewhere classified Procedures WA FULL ROUT OBSTE CARE,VAGINAL DELIV Taurus Maldonado MD [address] [place] [address] [facility] [address] [address] [place] [address] Referral ID Status Reason Start Date Expiration Date Visits Re quested Visits Authorized [id number] Closed 06/05/2019 12/02/2019 20 20 Encounter Details Date Type Department Care Team (Latest Contact Info) Description 06/05/2019 10:30 AM SUPPLIER QUALITY SPECIALIST - 06/05/2019 11:59 PM SUPPLIER QUALITY SPECIALIST Hospital Encounter [facility] [address] [place] [address] Annette Sauceda MD [facility] [address] Discharge Disposition: Home or Self Care Social [...] Comments Blood Pressure 136/69 06/05/2019 11:11 AM SUPPLIER QUALITY SPECIALIST Pulse 88 06/05/2019 11:11 AM SUPPLIER QUALITY SPECIALIST Temperature - - Respiratory Rate - - Oxygen Saturation - - Inhaled Oxygen Concentration - - Weight 130.6 kg (288 lb) 06/05/2019 11:11 AM SUPPLIER QUALITY SPECIALIST Height 154.9 cm (5' 1 ) 06/05/2019 11:11 AM SUPPLIER QUALITY SPECIALIST Body Mass Index 54.42 06/05/2019 11:11 AM SUPPLIER QUALITY SPECIALIST documented in this encounter Discharge Instructions * Patient Instructions* Annette Sauceda MD - 06/05/2019 10:30 AM SUPPLIER QUALITY SPECIALIST Physician instructions: 1. Please increase aspirin to [...] record the values for review with your environmental services tech 7. I recommend the following consultations: Mental [...] 14. Maintain your follow-up with Dr. Kitchen LIER QUALITY SPECIALIST documented in this encounter Medications at Time [...] by Dr. Shyanne LIRIANO. Records available in [facility] for review. She reports movement today. +FHT's [...] Pt was was seen today by Ethel, spring forger, for nutrition counseling. Please see her note from Ethel regarding this visit today. Prior authorization sent for Regal injections, will await approval. Records release signed for autopsy record from that from [facility] in 2019 and sent [facility]. Pt seen by Dr. Sauceda, please see her note for further POC. LIER QUALITY SPECIALIST * Almaz Garduno RN - 06/05/2019 10:30 AM CST Diabetes Self Management Education & Support [facility] Mary Carmen Cross is a 23 year old [id number] Date of Delivery: 10/31/19 Patient was seen [...] enrolled in Biology of Nutrition Class at [facility]. Using websites for recipes/nutrition information. Explored with pt ways to use websites such as [employer] and [employer]. Occasionally has cravings. E.g. [employer]. We used [employer] jaqui to assess nutrition information, with focus on sodium, carbs. Pt showed astonishment at sodium content in the 2 ham and cheese sandwiches, small fries, cookies that exceeded 4400 gm. 24 hr recall: Bfast: scambled eggs with wheat toast Lunch: string cheese Dinner: salmon in oven, 1 cup long grain rice, water Snack: grapes Being [place] [address] [place]. Active at home with [...] handout Healthy Eating/Meal Planning: Modified handout from [employer]: Please just tell me what to eat: [...] or quinoa,or whole-grain pasta. Engagement/Motivation: 90% Understandin% LIER QUALITY SPECIALIST * Margy Skelton - 06/05/2019 10:30 AM CST I received a PT Referral for this patient. The following locations did not accept [facility] Medicaid at this time: [facility], [facility] in the [place] and [facility]. I had to change her appointment location as the insurance was incorrect in the system. This patientdoes not have [facility] Insurance. She actually has [facility] Insurance. I have updated her information in the system and [facility] the patient to be seen. They accept [facility]. I will be faxing the order andconsultation note to [phone] as they are not apart of the [employer] [facility]. Per Reinier of the [facility], she will contact the patient and get her started with appointments. I will still send a letter to the patient. LIER QUALITY SPECIALIST documented in this encounter Consult Notes * Annette Sauceda MD - 06/05/2019 10:30 AM CSTAssociated Order(s): AMB CONSULT TO MATERNAL MEDICNE Images from the original note were not included. Dear Dr. Maldonado, I had the pleasure of seeing your patient, Mary Carmen rCoss for consultation today. Maternal Medicine Consult Note Date of Consult: 06/05/2019 Physician Requesting Consult: Taurus Maldonado MD Name: Mary Carmen Cross Age: [age] year old Race: Reason for requesting consultation: Mary Carmen Cross is a 23 year [id number], female at 18w6d weeks gestation by Estimated [...] file Gets together: Not on file Attends voodoo service: Not on file Active member of [...] G1&G2 went into labor at 36 weeks CINNAMON GRINDER Hx: Pap smear in 2019 negative for intraepithelial lesion or malignancy Outpatient Medications Marked as Taking for the 06/05/19 encounter (Hospital Encounter) with [facility] GREGORY ULTRASOUND 1 Medication Sig ??? aspirin [...] Maternal Medicine recommendations: 4. recommend follow-up with pipe coremaker Liver lesion Liver lesion assessed to be [...] been 17 OH PC supplementation. Administration of 24-vfmemqb-bwlxwxiixawx caproate (17-OHPC) weekly, starting from 16-18 weeks to 36 weeks has shown to reduce the risk of premature delivery. 17-OHPC has been found to decrease the risk of delivery at 37, 35, and 32 weeks is high risk patients. The terminologist data on the impact of progesterone exposure [...] of abnormal vaginal discharge by the primary environmental services tech with treatment as indicated Maternal morbid obesity, [...] , limited weight gain is recommended. The [place] of Medicine recommends a total weight gain [...] prevention of preeclampsia in at risk women ([place] DSR, 2008). There is no significant risk [...] total protein--to be ordered by the primary environmental services tech prior to 20 completed weeks of 20. [...] testing every trimester--to be ordered by primary environmental services tech Frequent headaches May be related to poor vision. Maternal Medicine recommendations: 32. should maintain follow-up with pipe coremaker 33. Riboflavin prescribed for headache prevention I [...] Department of Obstetrics, Gynecology, and Women's Health [facility] of Medicine LIER QUALITY SPECIALIST documented in this encounter Plan of Treatment Not on file documented as of this encounter Results * SONOGRAM - COMPLETE (06/21/2019 11:11 AM CDT) Anatomical Region Laterality Modality Other 06/21/2019 11:1 1 AM CDT Narrative 06/21/2019 7:22 PM CDT ? [facility] Maternal Medicine ? Maternal & Care Center ?PHONE: ??FAX: Pat. Name: ?MARY CARMEN CROSS Taurus Pat. No: ?[id number] Study Date: ?? 06/21/2019 ??11:11am , Age: ? 1995, 23 Pregnancies: ?? 3, Para 2 Height: ? 61 in Weight: ? 288 lb LMP: ?Unknown GA by US: ? 21w0d ?? LUISA: 11/01/2019 GA Selected: ??20w6d (From Known E) LUISA: ?11/02/2019 Referring MD: Ede Maldonado MD Burr Bench Operator: ??Mariaa Chester RDMS CPT4: ? 83387,42690 BMI: ?54.41 Hist/Ind: ? Anatomy Screen ?Maternal Liver Lesion ?Class IV Obesity ?CHTN ?PTD @36wks x2 MEASUREMENTS & AGE ? GROWTH EVALUATION Measurement ??GA ? Range ? Srce %for GA Ratios ----- ---- ------- BPD ??4.8 cm 20w3d (79x4g-36k9s) Hadl BPD 33% FL/BPD 0.73 HC ??18.9 cm 21w1d (23g4e-01m1a) Hadl HC ??57% FL/AC ??0.21 AC ??16.8 cm 21w5d (10h0n-52m6h) Hadl AC ??74% HC/AC ??1.13 (1.06 - 1.24) FL ?? 3.5 cm 21w0d (40h4s-51o3l) Hadl FL ??47% CI ? 0.68 (0.70 - 0.86* HL ?? 3.2 cm 20w6d (99l0r-49f2d) Errol HL ??50% Cere 2.3 cm 21w1d (17i2a-10r6n) Hill Cere57% GA for sonogram 21w0d (15m6y-21d1y) ?? Weight Estimate: based on (HL,BPD,HC,AC,FL) Avg [...] Signature> ??06/21/2019 07:23pm R Gary Maldonado MD [facility] ORDERABLES documented in this encounter Visit [...] Annette Sauceda MD - 06/05/2019 5:53 PM SUPPLIER QUALITY SPECIALIST Associated Problem(s): Frequent headaches May be related to poor vision. Maternal Medicine recommendations: 1. should maintain follow-up with pipe coremaker 2. Riboflavin prescribed for headache prevention LIER QUALITY SPECIALIST * Assessment & Plan Note - Annette Sauceda MD - 06/05/2019 5:49 PM SUPPLIER QUALITY SPECIALIST Associated Problem(s): NAFLD (nonalcoholic fatty liver disease) Unremarkable LFTs. Remains at risk for complications of related to pre-existing liver disease and suspected chronic hypertension. Maternal Medicine recommendations: 1. Serial liver function testing every trimester--to be ordered by primary environmental services tech LIER QUALITY SPECIALIST * Assessment & Plan Note - Annette Sauceda MD - 06/05/2019 5:49 PM SUPPLIER QUALITY SPECIALIST Associated Problem(s): Sleep apnea instructed to have evaluation for sleep apnea LIER QUALITY SPECIALIST * Assessment & Plan Note - Annette Sauceda MD - 06/05/2019 5:48 PM SUPPLIER QUALITY SPECIALIST Associated Problem(s): Lumbar herniated disc Having significant pain at night after exercise Maternal Medicine recommendations: 1. resume physical therapy 2. instructed to use medicated heat strip as needed for pain relief 3. Would benefit from 3rd trimester anesthesia consultation (around 28-32 weeks) LIER QUALITY SPECIALIST * Assessment & Plan Note - Annette Sauceda MD - 06/05/2019 5:43 PM SUPPLIER QUALITY SPECIALIST Associated Problem(s): Chronic hypertension affecting (HCC) (Deleted) [...] total protein--to be ordered by the primary environmental services tech prior to 20 completed weeks of 2. [...] 9. Would benefit from and weight reduction LIER QUALITY SPECIALIST * Assessment & Plan Note - Annette Sauceda MD - 06/05/2019 5:40 PM SUPPLIER QUALITY SPECIALIST Associated Problem(s): Diverticulitis Maternal Medicine recommendations: 1. nutrition counseling--initiated today 2. Encouraged to increase dietary fiber LIER QUALITY SPECIALIST * Assessment & Plan Note - Annette Sauceda MD - 06/05/2019 5:37 PM SUPPLIER QUALITY SPECIALIST Associated Problem(s): Supervision of high-risk of young multigravida (HCC) (Deleted) Please forward a copy of the aneuploidy screening results once available LIER QUALITY SPECIALIST * Assessment & Plan Note - Annette Sauceda MD - 06/05/2019 1:31 PM SUPPLIER QUALITY SPECIALIST Associated Problem(s): Maternal morbid obesity, antepartum (HCC) [...] , limited weight gain is recommended. The [place] of Medicine recommends a total weight gain [...] discussion of gastric surgery due to co-morbidities LIER QUALITY SPECIALIST * Assessment & Plan Note - Annette Sauceda MD - 06/05/2019 1:29 PM SUPPLIER QUALITY SPECIALIST Associated Problem(s): History of delivery (Deleted) In women with previous spontaneous , recurrence risk is 25-30%. We discussed that the standard intervention for many years has been 17 OH PC supplementation. Administration of 63-aqltktr-mpicvvepzuml caproate (17-OHPC) weekly, starting from 16-18 weeks to 36 weeks has shown to reduce the risk of premature delivery. 17-OHPC has been found to decrease the risk of delivery at 37, 35, and 32 weeks is high risk patients. The terminologist data on the impact of progesterone exposure [...] of abnormal vaginal discharge by the primary environmental services tech with treatment as indicated LIER QUALITY SPECIALIST * Assessment & Plan Note - Annette Sauceda MD - 06/05/2019 1:28 PM SUPPLIER QUALITY SPECIALIST Associated Problem(s): Short interval between pregnancies affecting , antepartum (HCC) (Deleted) Close interval pregnancies (less than 6 months) have an increased risk of delivery and small for gestation age neonates. Maternal Medicine recommendations: 1. serial growth every 4 weeks after 20 weeks LIER QUALITY SPECIALIST * Assessment & Plan Note - Annette Sauceda MD - 06/05/2019 1:27 PM SUPPLIER QUALITY SPECIALIST Associated Problem(s): Liver lesion (Deleted) Liver lesion [...] the the potential benefit of diagnostic information LIER QUALITY SPECIALIST * Assessment & Plan Note - Annette Sauceda MD - 06/05/2019 1:27 PM SUPPLIER QUALITY SPECIALIST Associated Problem(s): Cataracts, bilateral Having decreased nighttime vision Maternal Medicine recommendations: 1. recommend follow-up with pipe coremaker LIER QUALITY SPECIALIST * Assessment & Plan Note - Annette Sauceda MD - 06/05/2019 1:24 PM SUPPLIER QUALITY SPECIALIST Associated Problem(s): Anxiety (Deleted) Having significant nighttime anxiety. May have posttraumatic stress from the of her youngest child. At risk for mood deterioration. At risk for worsening of blood pressure and excessive weight gain from poor sleep. Maternal Medicine recommendations: 1. strongly recommend mental health counseling 2. Reassess mood at visits 3. would benefit from LIER QUALITY SPECIALIST documented in this encounter Care Teams Life Underwriter Relationship Specialty Start Date End Date Jonelle Elam MD [address] [place] [address] [place] [id number] PCP - General Family Medicine 10/24/18 documented as of this encounter
--- OUTSIDE RECORDS SUMMARY | 2024-04-14 20:12 | XMS_ITS | Encounter Summary ---
Author Organization [facility] Address [address] [place] [address] Care Team Providers Care Water Systems Designer Name Role Phone Jonelle Elam MD Primary Care Provider [phone] Encounter Details Date Type Department Care Team (Late st Contact Info) Description 11/05/2018 9:20 AM CDT Procedure visit [facility] [address] [place] [address] Unknown, Provider Tejas Jamil MD [address] OF GASTROENTEROLOGY [place], [place] [id number] Fatty liver Social History Tobacco Use Types [...] change as additional supporting data becomes available. [email or web address] documented in this encounter Procedure Notes * Tejas Smith MD - 11/05/2018 2:53 PM CDTAssociated Order(s): PROC FIBROSCAN Procedure(s): IN LIVER ELASTOGRAPHY Pre-Procedure Diagnose(s): Fatty liver Diagnosis: [...] change as additional supporting data becomes available. [email or web address] documented in this encounter Plan of Treatment Not on file documented as of this encounter Procedures Procedure Name Priority Date/Time Associated Diagnosis Comments IN LIVER ELASTOGRAPHY Routine 11/05/2018 2:54 PM CDT Fatty liver documented in this encounter Results * IN LIVER ELASTOGRAPHY (11/05/2018 2:54 PM CDT) Narrative [...] change as additional supporting data becomes available. [email or web address] Tejas Jamil MD PROCEDURE/ MINOR SURGICAL ORDERABLES documented in this encounter Visit Diagnoses Diagnosis Fatty liver- Primary Other chronic nonalcoholic liver disease documented in this encounter Care Teams Water Systems Designer Relationship Specialty Start Date End Date Jonelle Elam MD [address] [place] [address] [place] [phone] PCP - General Family Medicine 10/24/18 documented as of this encounter
--- OUTSIDE RECORDS SUMMARY | 2024-04-14 20:12 | XMS_ITS | Encounter Summary ---
Author Organization [facility] Address [address] [place] [address] Care Team Providers Care Change Management Manager Name Role Phone Jonelle Elam MD Primary Care Provider [phone] Encounter Details Date Type Department Care Team (Late st Contact Info) Description 01/02/2019 9:20 AM CDT Office Visit [facility] [place] [id number] Lindsay Acuna MD [address] [address] Maribel Kitchen MD [address] [place] [address] Liver lesion (Primary Dx); Nonalcoholic [...] the physicians and other specialists at the [facility] Gastroenterology and Hepatology clinic today. Following your visit, you may receive a Press afterBOT survey via email or U.S. Mail. We [...] please call (hospital main number), ask the silverware buffing machine operator to call the gastroenterology fellow control room technician. Emergency; call 911 or go to your closest emergency room. For more information, below are some useful websites: More information about us and our services can be found on our websites at www.[email or web address] and www.[email or web address].com/en-us/ourservices/medicalservices/pages/digestivediseasesdis orders.aspx Hospital information can be found at: [email or web address] Information about other [facility] providers can be found at: www.[email or web address] Information about the [facility], a jla-zuv-dasett foundation supporting liver disease research by your doctors and researchers at [facility], can be found at: www.friendsofst. [facility].org You can sign up to receive emails with updates on current GI topics called the [facility] [employer]. These come out twice a week from one of our professional organizations, the [employer]. Go to this website to sign up: [email or web address] IMPORTANT The following information and instructions are from your visit today: ?? Followup in 3-4 months ?? Labs today at [facility] documented in this encounter Progress Notes * Maribel Kitchen MD - 01/02/2019 10:52 AM CDT [facility] Maribel Kitchen MD No chief [...] file Gets together: Not on file Attends jew service: Not on file Active member of [...] TPROT, GFR, EGFR, EGFRAFR in the last 82777 hours. Invalid input(s): ABL No results for input(s): BUN, CREATININE, NA, POTASSIUM, K, CL, CO2, GLU, CALCIUM, PROT, ALB, TBILI, ALKPHOS, ALT, AST, ANIONGAP, BCR, OSMOLALITY, AGRATIO, EGFR, EGFRAFR, GFR in the last 62830 hours. No results for input(s): WBC, HGB, HEMOGLOBIN, HEMATOCRIT, HCT, PLATELET, PLTCOUNT in the last 37117 hours. No results for input(s): INR in the last 42285 hours. Last Endoscopies: Last Imaging: -MRI abd [...] visit in 3 months. Maribel Kitchen MD Cloth Shrinking Tester Professsor Division of Gastroenterology and Hepatology CC: Jonelle Elam MD No ref. provider found Orders Placed This Encounter ??? HEPATIC FUNCTION PANEL Standing Status: Future Standing Expiration Date: 02/01/2019 ??? [id number] BLOOD PHENOTYPING PANEL Standing Status: Future Standing [...] (01/02/2019 12:36 PM CDT) Pathologist [facility] Hepatitis B Virus Surface Antigen Non-reacti ve Non-reacti ve 01/02/2019 1:33 PM CDT [facility] Blood BLOOD SPECIMEN / Unknown Lab Venipuncture / Unknown 01/02/2019 12:36 PM CDT 01/02/2019 12:50 PM CDT Maribel Kitchen MD LAB - CHEMISTRY KACY HICKS Performing Organization Address [facility]/ZIP Co de Phone Number [address] [phone] * (ABNORMAL) TRANSFERRIN (01/02/2019 12:36 PM CDT) [facility] Transferrin 319 174 - 382 mg/dL 01/02/2019 2:17 PM CDT [facility] Transferrin Saturation % 6(L) 16 - 50 % 01/02/2019 2:17 PM CDT [facility] Blood BLOOD SPECIMEN / Unknown Lab Venipuncture / Unknown 01/02/2019 12:36 PM CDT 01/02/2019 12:50 PM CDT Maribel Kitchen MD LAB - CHEMISTRY KACY HICKS Performing Organization Address [facility]/ZIP Co de Phone Number [address] [phone] * SMOOTH MUSCLE ANTIBODY (01/02/2019 12:36 PM CDT) [facility] F-Actin Antibody IgG 7.5 0.0 - 19.9 Units 01/04/2019 2:12 PM CDT [facility] Comment: F-Actin Antibody Numeric Result Interpretation: ?<20.0 Units: ??Negative ?20.0 - 30.0 Units: ??Weak Positive ?>30.0 Units: ??Moderate to Strong Positive ? Blood BLOOD SPECIMEN / Unknown Lab Venipuncture / Unknown 01/02/2019 12:36 PM CDT 01/02/2019 12:50 PM CDT Maribel Kitchen MD LAB - SEROLOGY ORDER KAMRON Performing Organization Address [facility] Co de Phone Number [address] [phone] * MITOCHONDRIAL ANTIBODY SCREEN (01/02/2019 12:36 PM CDT) Mitochondrial M2 Antibody 2.3 0.0 - 20.0 Units 01/04/2019 2:12 PM CDT [facility] Comment: Mitochondrial M2 Antibody Numeric Result Interpretation: ?<20.1 Units: ??Negative ?20.1 - 24.9 Units: ??Equivocal ?>24.9 Units: ??Positive ? Blood BLOOD SPECIMEN / Unknown Lab Venipuncture / Unknown 01/02/2019 12:36 PM CDT 01/02/2019 12:50 PM CDT Maribel Kitchen MD LAB - CHEMISTRY ORDE RABLES Performing Organization Address [facility]/ZIP Co de Phone Number [address] [phone] * HEPATITIS C ANTIBODY (01/02/2019 12:36 PM CDT) Hepatitis C Antibody Non-react elizabeth Non-reac tive 01/02/2019 1:33 PM CDT [facility] Comment: Hepatitis C Antibody screen indicates no [...] - CHEMISTRY KACY HICKS Performing Organization Address [facility] de Phone Number [address] [phone] * HEPATITIS B SURFACE ANTIBODY (01/02/2019 12:36 PM CDT) Hepatitis B Virus Surface Antibody Non-react elizabeth Non-react elizabeth 01/02/2019 1:33 PM CDT [facility] Comment: < 8 mIU/mL Hepatitis B surface Antibody (HBsAb). Nonreactive for HBsAb - individual is considered not immune to Hepatitis B Virus infection. Hepatitis B Surface Antibody Quantitative 1.0 <8.0 mIU/mL 01/02/2019 1:33 PM CDT [facility] Comment: Hepatitis B Surface Antibody Numeric Result Interpretation: ? Nonreactive: ?<8.0 mIU/mL ? Indeterminate: ??8.0 - 12.0 mIU/mL ? Reactive: ?>12.0 mIU/mL ? Blood BLOOD SPECIMEN / Unknown Lab Venipuncture / Unknown 01/02/2019 12:36 PM CDT 01/02/2019 12:50 PM CDT Maribel Kitchen MD LAB - CHEMISTRY KACY HICKS Performing Organization Address [facility] [place] [place] [address], [facility] [phone] * (ABNORMAL) HEPATITIS A ANTIBODY (01/02/2019 12:36 PM CDT) [facility] Hepatitis A Virus Antibody Total Positive(A ) Negative 01/03/2019 9:10 AM CDT [facility] ([facility]) Blood BLOOD SPECIMEN / Unknown Lab Venipuncture / Unknown 01/02/2019 12:36 PM CDT 01/02/2019 12:49 PM CDT Narrative [facility] ([facility]) - 01/03/2019 9:10 AM CDT Performed at: ??01 - [facility] [address], [place] ??[id number] Ms Sql Dba: Juliocesar Sanders PhD, Phone: ??[phone] Maribel Kitchen MD LAB - CHEMISTRY KACY HICKS Performing Organization Address [facility]/ZIP Co de Phone Number [facility] ([facility]) [address] [place] [address] * CERULOPLASMIN (01/02/2019 12:36 PM CDT) [facility] Ceruloplasmin 42 20 - 60 mg/dL 01/02/2019 1:13 PM CDT [facility] Blood BLOOD SPECIMEN / Unknown Lab Venipuncture / Unknown 01/02/2019 12:36 PM CDT 01/02/2019 12:50 PM CDT Maribel Kitchen MD LAB - CHEMISTRY KACY HICKS Performing Organization Address [facility]/ZIP Co de Phone Number [address] [phone] * MEHDI BLOOD SCREEN W/REFLEX TITER (01/02/2019 12:36 PM CDT) [facility] MEHDI Negative 01/03/2019 5:08 PM CDT [facility] ([facility]) Comment: ? Negative ?? <1:80 ? Borderline ??1:80 ? Positive ?? >1:80 Blood BLOOD SPECIMEN / Unknown Lab Venipuncture / Unknown 01/02/2019 12:36 PM CDT 01/02/2019 12:49 PM CDT Narrative [facility] ([facility]) - 01/03/2019 5:08 PM CDT Performed at: ??01 - [facility] [address], [place] ??[id number] Ms Sql Dba: Juliocesar Sanders PhD, Phone: ??[phone] Maribel Kitchen MD LAB - CHEMISTRY KACY HICKS Performing Organization Address City/State/[facility] Co de Phone Number [facility] ([facility]) [address] [place] [address] * [id number] BLOOD PHENOTYPING PANEL (01/02/2019 12:36 PM CDT) Tckqe-8-Pjvchsftmd n 123 90 - 200 mg/dL 01/04/2019 4:09 PM CDT [facility] ([facility]) Comment: Effective January 28, 2019 Mjojz-6-Wrnftghgrsk, ??Serum reference interval will be changing to: [...] CDT 01/02/2019 12:50 PM CDT Narrative [facility] ([facility]) - 01/04/2019 4:09 PM CDT Performed at: ??01 - [facility] [address], [place] ??[id number] Ms Sql Dba: Juliocesar Sanders PhD, Phone: ??[phone] Performed at: ??02 - [facility] [address] ??[id number] Ms Sql Dba: Hari Smith MD, Phone: ??[phone] Maribel Kitchen MD LAB - CHEMISTRY KACY HICKS [facility] ([facility]) [address] [place] [address] * HEPATIC FUNCTION PANEL (01/02/2019 12:36 PM CDT) Protein Total 8.1 6.0 - 8.3 g/dL 019 1:12 PM CDT [facility] Albumin 4.5 3.4 - 5.0 g/dL 01/02/2019 1:12 PM CDT [facility] Bilirubin Total 0.8 0.2 - 1.2 mg/dL 05/2018 1:12 PM CDT [facility] Bilirubin Conjugated 0.3 0.0 - 0.5 mg/dL 01/02/2019 1:12 PM CDT [facility] Bilirubin Unconjugated 0.5 Unconjugated Bilirubin is a calculated value: Reference ranges have not been established. mg/dL 01/02/2019 1:12 PM CDT [facility] Alkaline Phosphatase 71 40 - 150 Units/L 01/02/2019 1:12 PM CDT [facility] ALT 24 0 - 55 Units/L 01/02/2019 1:12 PM CDT [facility] AST 20 5 - 34 Units/L 01/02/2019 1:12 PM CDT [facility] Albumin/Globulin Ratio 1.3 1.1 - 2.3 01/02/2019 1:12 PM CDT [facility] Blood BLOOD SPECIMEN / Unknown Lab Venipuncture / Unknown 01/02/2019 12:36 PM CDT 01/02/2019 12:48 PM CDT Maribel Kitchen MD LAB - CHEMISTRY KACY HICKS [facility] Organization Address City/State/ZIP Co de Phone Number [facility] [address] [place] [address] documented in this encounter Visit Diagnoses Diagnosis Liver lesion- Primary Other specified disorders of liver Nonalcoholic fatty liver disease Other chronic nonalcoholic liver disease Morbid obesity (HCC) Morbid obesity documented in this encounter Care Teams Change Management Manager Relationship Specialty Start Date End Date Jonelle Elam MD [address] [place] [phone] PCP - General Family Medicine 10/24/18 documented as of this encounter
--- OUTSIDE RECORDS SUMMARY | 2024-04-14 20:12 | XMS_ITS | Encounter Summary ---
Author Organization [facility] Address [address] [place] [address] Care Team Providers Care Is Support Analyst Name Role Phone Jonelle Elam MD Primary Care Provider [phone] Reason for Referral * Radiology Services (Routine) - Closed Specialty Diagnoses / Procedures Referred By Contac t Referred To Contact Diagnoses Nonalcoholic fatty liver disease Liver lesion Focal nodular hyperplasia of liver Procedures PROC FIBROSCAN Maribel Kitchen MD [address] [place] [address] Referral ID Status Reason Start Date Expiration Date Visits Re quested Visits Authorized [id number] Closed 04/12/2019 10/09/2019 1 1 NICAL PRODUCT MANAGER Reason for Visit * Reason Comments Liver Problem Encounter Details Date Type Department Care Team (Late st Contact Info) Description 04/12/2019 2:20 PM TECHNICAL PRODUCT MANAGER Office Visit [facility] [address] [place] [address] Maribel Kitchen MD [address] [place] [address] Nonalcoholic fatty liver disease (Primary [...] Comments Blood Pressure 146/87 04/12/2019 2:05 PM TECHNICAL PRODUCT MANAGER Pulse 90 04/12/2019 2:05 PM TECHNICAL PRODUCT MANAGER Temperature 36.8 ??C (98.3 ??F) 04/12/2019 2:05 PM CS T Respiratory Rate 18 04/12/2019 2:05 PM TECHNICAL PRODUCT MANAGER Oxygen Saturation 99% 04/12/2019 2:05 PM TECHNICAL PRODUCT MANAGER Inhaled Oxygen Concentration - - Weight 127.6 kg (281 lb 3.2 oz) 04/12/2019 2:05 PM TECHNICAL PRODUCT MANAGER Height 152.4 cm (5') 04/12/2019 2:05 PM TECHNICAL PRODUCT MANAGER Body Mass Index 54.92 04/12/2019 2:05 PM TECHNICAL PRODUCT MANAGER documented in this encounter Progress Notes * Maribel Kitchen MD - 04/12/2019 2:20 PM CST [facility] Maribel Kitchen MD Referring Provider: No ref. provider found PCP: Jonelle Elam MD Interval history and subjective concerns: I had the pleasure of meeting Deya Campbell at the [facility] on 04/12/2019. This is a [...] HEMATOCRIT, HCT, PLATELET, PLTCOUNT in the last 70392 hours. No results for input(s): INR in the last 95097 hours. Computed MELD-Na score unavailable. Necessary lab [...] seen on 2019 imaging, [facility] shows lesions are c/w [...] visit in 1 year. Maribel Kitchen MD Floor Worker Division of Gastroenterology and Hepatology No orders [...] No current facility-administered medications for this visit. NICAL PRODUCT MANAGER documented in this encounter Plan of Treatment Not on file documented as of this encounter Results * PROC FIBROSCAN (02/03/2020 2:23 PM TECHNICAL PRODUCT MANAGER) Narrative Tejas Smith MD - 02/03/2020 2:23 PM TECHNICAL PRODUCT MANAGER Tejas Smith MD ? 02/07/2020 11:02 PM [...] patients with nonalcoholic fatty liver disease. Gastroenterology 2019;156:8296-2803. Tammi MS, Rae R, Van Carlos Alberto [...] FIB4 score (Jakeyduke et al. Hepatology Communications 2019;3:5481-7318) or NAFLD Fibrosis score (Johnston et al. Clinical Gastroenterology and Hepatology 2019;17:3247-7843. from routine clinical data. 3. Liver stiffness [...] change as additional supporting data becomes available. [email or web address] Maribel Kitchen MD PROCEDURE/MINOR SURG ICAL ORDERABLES * (ABNORMAL) HEPATIC FUNCTION PANEL (04/12/2019 3:14 PM TECHNICAL PRODUCT MANAGER) Protein Total 7.8 6.0 - 8.3 g/dL 020 4:02 PM [facility] Albumin 3.9 3.4 - 5.0 g/dL 04/12/2019 4:02 PM [facility] Bilirubin Total 0.7 0.2 - 1.2 mg/dL 04/03 4:02 PM [facility] Bilirubin Conjugated 0.2 0.0 - 0.5 mg/dL 04/12/2019 4:02 PM [facility] Bilirubin Unconjugated 0.5 Unconjugated Bilirubin is a calculated value: Reference ranges have not been established. mg/dL 04/12/2019 4:02 PM [facility] Alkaline Phosphatase 55 40 - 150 Units/L 04/12/2019 4:02 PM [facility] ALT 12 0 - 55 Units/L 04/12/2019 4:02 PM [facility] AST 16 5 - 34 Units/L 04/12/2019 4:02 PM [facility] Albumin/Globulin Ratio 1.0(L) 1.1 - 2.3 04/12/2019 4:02 PM [facility] Blood BLOOD SPECIMEN / Unknown Lab Venipuncture / Unknown 04/12/2019 3:14 PM TECHNICAL PRODUCT MANAGER 04/12/2019 3:26 PM TECHNICAL PRODUCT MANAGER Maribel Kitchen MD LAB - CHEMISTRY KACY HICKS [facility] Organization Address City/State/ZIP Co de Phone Number [address] [phone] documented in this encounter Visit Diagnoses Diagnosis [...] liver documented in this encounter Care Teams Is Support Analyst Relationship Specialty Start Date End Date Jonelle Elam MD [address] [place] [address] [place] [address] PCP - General Family Medicine 10/24/18 documented as of this encounter
--- OUTSIDE RECORDS SUMMARY | 2024-04-14 20:12 | XMS_ITS | Encounter Summary ---
Author Organization [facility] Address [address] [place] [address] Phone Care Team Providers Care Director Patient Name Role Phone Jonelle Elam MD Primary Care Provider + Reason for Visit * Reason Comments Flank Pain Abdominal Pain Encounter Details Date Type Department Care Team (Late st Contact Info) Description 01/26/2020 8:25 PM CDT - 01/26/2020 10:57 PM CDT Emergency [facility] [address] [place] [address] Ellen Gordon PAC [address] [place] [address] Sundeep Damian MD [address] [place] [address] Abdominal pain, right lower quadrant Discharge Disposition: Discharged to home or Selfcare Social History Tobacco Use Types Packs/Day Years Used Date Smoking Tobacco: Never Smokeless Tobacco: Never Alcohol Use Standard Drinks/Week Comments No 0 (1 standard drink = 0.6 oz pur e alcohol) Comments No Sex and Gender Information Value Date Recorded Sex Assigned at Not on file Legal Sex Female 10:30 PM GLOVE STITCHER Gender Identity Not on file Sexual Orientation [...] swelling in the outer vaginal area (labia) GuideIT last reviewed this educational content on 02/01/2019 ?? [id number] [employer]. [address] [place] [address], [place] [address]. All rights reserved. This information is not [...] EXAM, HEMORRHOIDS; Surgeon: Charles Amezcua MD; Location: [facility]; Service: Gastroenterology ??? MYRINGOTOMY ??? [...] file Gets together: Not on file Attends taoism service: Not on file Active member of [...] Ephraim Hill M.D. SS: SS Report ID: [id number] Reading Location: [place] [address] CT RENAL STONE STUDY (ABDOMEN AND PELVIS [...] EXAM, HEMORRHOIDS; Surgeon: Charles Amezcua MD; Location: [facility]; Service: Gastroenterology ??? MYRINGOTOMY ??? [...] created for panel order CBC with Diff MPI130. Procedure Abnormality Status --------- ------ CBC with Auto Differential[[id number]] Abnormal Final result Please view results for [...] Ephraim Hill M.D. SS: SS Report ID: [id number] Reading Location: [place] [address] IMPRESSION: 1. Normal appendix. 2. Bilateral adnexal [...] EXAM, HEMORRHOIDS; Surgeon: Charles Amezcua MD; Location: [facility]; Service: Gastroenterology ??? MYRINGOTOMY ??? [...] file Gets together: Not on file Attends taoism service: Not on file Active member of [...] created for panel order CBC with Diff [id number]. Procedure Abnormality Status --------- ------ CBC with Auto Differential[[id number]] Please view results for these tests on the individual orders. LIPASE URINALYSIS REFLEX IF INDICATED BY ABNORMAL RESULTS POCT URINE HCG () CBC WITH AUTO DIFFERENTIAL CMP (Comprehensive Metabolic Panel) (Results Pending) CBC with Diff [id number] (Results Pending) Lipase [id number] (Results Pending) URINALYSIS REFLEX IF INDICATED BY [...] PM T: ??01/26/2020 9:52 PM Report ID: [id number] Reading Location: ??[id number] Procedure Note Ephraim Hill MD - 01/26/2020 [...] Ephraim Hill M.D. SS: YANI Report ID: [id number] Reading Location: [id number] IMPRESSION: 1. Normal appendix. 2. Bilateral adnexal [...] DISTAL URETHRAL CONTAMINANTS 01/28/2020 10:38 AM CDT [facility] Urine URINE SPECIMEN / Unknown Non-Phlebotomy Collection / Unknown 01/26/2020 8:59 PM CDT 01/26/2020 9:25 PM CDT Ellen Novak Page PAC MICROBIOLOGY - GENERAL ORDER KAMRON Final Result [facility] [address] [place] [address], [place] * (ABNORMAL) URINALYSIS REFLEX IF INDICATED BY ABNORMAL RESULTS (01/26/2020 8:59 PM CDT) SPECIFIC GRAVITY 1.030 1.003 - 1.030 01/26/2020 9:42 PM CDT [facility] URINE PH 5.0 5.0 - 9.0 01/26/2020 9:42 PM CDT [facility] WBC ESTERASE 25 /uL(A) Negative 01/26/2020 9:42 PM CDT [facility] NITRITE Negative Negative 01/26/2020 9:42 PM CDT [facility] PROTEIN, RANDOM URINE 30 mg/dL(A) Negative 01/26/2020 9:42 PM CDT [facility] URINE GLUCOSE, QUAL Negative Negative 01/26/2020 9:42 PM CDT [facility] URINE KETONES 5 mg/dL(A) Negative 01/26/2020 9:42 PM CDT [facility] UROBILINOGEN Normal Normal mg/dL 01/26/2020 9:42 PM CDT [facility] URINE BILIRUBIN Negative Negative 0 9:42 PM CDT [facility] URINE BLOOD 150 /uL(A) Negative reina/ul 01/26/2020 9:42 PM CDT [facility] URINALYSIS COLOR Yellow 01/26/20 20 9:42 PM CDT [facility] URINALYSIS CLARITY Clear 01/26/2020 9:42 PM CDT [facility] WBC (Urine) 6-10(A) Negative, 0-5 /hpf 01/26/2020 9:42 PM CDT [facility] URINE RBC'S 11-20(A) Negative, 0-2 /hpf 01/26/2020 9:42 PM CDT [facility] EPITHELIAL CELLS Moderate amount /lpf 01/26/2020 9:42 PM CDT [facility] BACTERIA, URINE Few(A) Negative /hpf 01/26/2020 9:42 PM CDT [facility] URINE MUCOUS Few 01/26/2020 9:42 PM CDT [facility] Urine URINE SPECIMEN / Unknown Non-Phlebotomy Collection / Unknown 01/26/2020 8:59 PM CDT 01/26/2020 9:25 PM CDT Ellen Novak Page PAC URINE ORDERABLES Final Resul t [facility] [address] [place] [address] * POCT Urine HCG () (01/26/2020 8:55 PM CDT) Pathologist [facility] POC URINE Negative POC URINE CONTROL Paper Tube Cutter Pass Urine 01/26/2020 8:55 PM CDT Ellen Novak Page PAC POINT OF CARE TESTING (MANUA L) Final Result * (ABNORMAL) CBC with Auto Differential (01/26/2020 8:35 PM CDT) WBC 7.23 4.00 - 12.00 10(3)/mcL 01/26/2020 8:47 PM CDT [facility] RBC 4.75 3.80 - 5.30 10(6)/mcL 01/26/2020 8:47 PM CDT [facility] HEMOGLOBIN (HGB) 12.3 12.0 - 15.8 g/dL 01/26/2020 8:47 PM CDT [facility] HEMATOCRIT (HCT) 38.6 36.0 - 47.0 % 01/26/2020 8:47 PM CDT [facility] MCV 81.3(L) 82.0 - 96.0 fL 01/26/2020 8:47 PM CDT [facility] MCH 25.9(L) 26.0 - 34.0 pg 01/26/2020 8:47 PM CDT [facility] MCHC 31.9 31.0 - 36.0 g/dL 01/26/2020 8:47 PM CDT [facility] PLATELET COUNT 314 140 - 440 10(3)/mcL 01/26/2020 8:47 PM CDT [facility] RDW 14.3 11.8 - 15.5 % 01/26/2020 8:47 PM CDT [facility] MPV 9.6(L) 9.7 - 12.4 fL 01/26/2020 8:47 PM CDT [facility] NEUTROPHILS 61.0 47.0 - 73.0 % 01/26/2020 8:47 PM CDT [facility] LYMPHOCYTES 32.1 18.0 - 42.0 % 01/26/2020 8:47 PM CDT [facility] MONOCYTES 4.8 4.0 - 12.0 % 01/26/2020 8:47 PM CDT [facility] EOSINOPHILS 1.5 0.0 - 5.0 % 01/26/2020 8:47 PM CDT [facility] BASOPHILS 0.6 0.0 - 1.0 % 01/26/2020 8:47 PM CDT [facility] ABSOLUTE NEUTROPHILS 4.41 1.60 - 7.70 10(3)/mcL 01/26/2020 8:47 PM CDT [facility] ABSOLUTE LYMPHOCYTES 2.32 1.30 - 3.20 10(3)/mcL 01/26/2020 8:47 PM CDT [facility] ABSOLUTE MONOCYTES 0.35 0.20 - 1.00 10(3)/mcL 01/26/2020 8:47 PM CDT [facility] ABSOLUTE EOSINOPHIL 0.11 0.00 - 0.40 10(3)/mcL 01/26/2020 8:47 PM CDT [facility] ABSOLUTE BASOPHILS 0.04 0.00 - 0.10 10(3)/mcL 01/26/2020 8:47 PM CDT [facility] NRBC PER 100 WBC 0 01/26/20 20 8:47 PM CDT [facility] Blood Venous Catheter (IV) / Unknown 01/26/2020 8:35 PM CDT 01/26/2020 8:44 PM CDT Ellen Novak Page PAC HEMATOLOGY ORDERABLES Final Result Performing Organization Address City/[facility]/ZIP Co de Phone Number [facility] [address] [place] [address] * Lipase [id number] (01/26/2020 8:35 PM CDT) Pathologist [facility] LIPASE 23.5 13 - 60 U/L 01/26/2020 9:14 PM CDT [facility] Blood Venous Catheter (IV) / Unknown 01/26/2020 8:35 PM CDT 01/26/2020 8:44 PM CDT Ellen Gordon PAC CHEMISTRY ORDERABLES Final R esult [facility] [address] [place] [address] * (ABNORMAL) CMP (Comprehensive Metabolic Panel) (01/26/2020 8:35 PM CDT) SODIUM 138 136 - 144 mmol/L 01/26/2020 9:14 PM CDT [facility] POTASSIUM 3.6 3.5 - 5.1 mmol/L 01/26/2020 9:14 PM CDT [facility] CHLORIDE 101 100 - 110 mmol/L 01/26/2020 9:14 PM CDT [facility] CO2, VENOUS 21(L) 22 - 32 mmol/L 01/26/2020 9:14 PM CDT [facility] ANION GAP 19.6 8.0 - 20.0 mmol/L 01/26/2020 9:14 PM CDT [facility] GLUCOSE 112(H) 70 - 99 mg/dL 01/26/2020 9:14 PM CDT [facility] BUN 11 6 - 20 mg/dL 01/26/2020 9:14 PM CDT [facility] CREATININE, BLOOD 0.57(L) 0.60 - 1.10 mg/dL 01/26/2020 9:14 PM CDT [facility] BUN/CREATININE RATIO 19 12 - 20 ratio 01/26/2020 9:14 PM CDT [facility] TOTAL PROTEIN 7.5 6.0 - 8.3 g/dL 01/26/2020 9:14 PM CDT [facility] ALBUMIN 4.9 3.5 - 5.2 g/dL 01/26/2020 9:14 PM [facility] Comment: The colormetric methods used for the determination of Albumin may lead to falsely elevated test results in patients suffering from renal failure or insufficiency due to interference with other proteins. A/G RATIO 1.9 1.0 - 2.0 01/26/2020 9:14 PM CDT [facility] CALCIUM 10.1 8.9 - 10.3 mg/dL 01/26/2020 9:14 PM CDT [facility] T BILI 0.8 <=1.2 mg/dL 01/26/2020 9:14 PM CDT [facility] SGOT (AST) 28 <=32 U/L 01/26/2020 9:14 PM CDT [facility] SGPT (ALT) 29 <=33 U/L 01/26/2020 9:14 PM CDT [facility] ALKALINE PHOSPHATASE 68 35 - 105 U/L 01/26/2020 9:14 PM CDT [facility] GFR, EST. NONAFRICAN >60 >=60 01/26/2020 9:14 PM CDT [facility] GFR, EST. >60 >=60 020 9:14 PM CDT [facility] Comment: Creatinine Clearance is the preferred criteria for selecting drug dose adjustments in renally impaired patients. ??The GFR is provided as additional pertinent clinical information. GFR is reported in mL/min/1.73 sq m. Blood Venous Catheter (IV) / Unknown 01/26/2020 8:35 PM CDT 01/26/2020 8:44 PM CDT us Ellen Novak Page PAC CHEMISTRY ORDERABLES Final R esult [facility] [address] [place] [address] documented in this encounter Visit Diagnoses Diagnosis [...] at 2099 2055 (Given - Provid er: Araceil Brooks RN) sulfamethoxazole-trimethoprim DS (BACTRIM DS, SEPTRA DS) 800-160 MG per tablet 1 Tab (COMPLETED) 1 Tablet, Oral, ONCE, 1 dose, On 01/26/20 at 2300, Dose based on trimethoprim component, Indications: Urinary Tract Infection 2246 (Given - Provid er: Shayna Power, BOBBY) documented in this encounter Care Teams Director Patient Relationship Specialty Start Date End Date Jonelle Elam MD [address] [place] [address] PCP - General Family Medicine 02/22/15 documented as of this encounter
--- OUTSIDE RECORDS SUMMARY | 2024-04-14 20:12 | XMS_ITS | Encounter Summary ---
Author Organization [facility] Address [address] [place] [address] Care Team Providers Care Funder Name Role Phone Jonelle Elam MD Primary Care Provider Encounter Details Date Type Department Care Team (Late st Contact Info) Description 01/02/2019 12:28 PM CDT - 01/02/2019 11:59 PM T Hospital Encounter [facility] DRAW STATION [address] [place] [phone] Maribel Kitchen MD [address] [place] [id number] Discharge Disposition: Home or Self Care Social [...] liver disease Morbid obesity (HCC) Liver lesion [id number] BLOOD PHENOTYPING PANEL Routine 01/02/2019 12:36 PM [...] RFLX CONFIRMATION (01/02/2019 12:36 PM CDT) Pathologist [facility] Hepatitis B Virus Surface Antigen Non-reacti ve Non-reacti ve 01/02/2019 1:33 PM CDT [facility] Blood BLOOD SPECIMEN / Unknown Lab Venipuncture / Unknown 01/02/2019 12:36 PM CDT 01/02/2019 12:50 PM CDT Maribel Kitchen MD LAB - CHEMISTRY KACY HICKS Performing Organization Address [facility] Co de Phone Number [address] [phone] * (ABNORMAL) TRANSFERRIN (01/02/2019 12:36 PM CDT) Pathologist [facility] Transferrin 319 174 - 382 mg/dL 01/02/2019 2:17 PM CDT [facility] Transferrin Saturation % 6(L) 16 - 50 % 01/02/2019 2:17 PM CDT [facility] Blood BLOOD SPECIMEN / Unknown Lab Venipuncture / Unknown 01/02/2019 12:36 PM CDT 01/02/2019 12:50 PM CDT Maribel Kitchen MD LAB - CHEMISTRY KACY HICKS Performing Organization Address City/[facility]/ZIP Co de Phone Number [address] [phone] * SMOOTH MUSCLE ANTIBODY (01/02/2019 12:36 PM CDT) Pathologist [facility] F-Actin Antibody IgG 7.5 0.0 - 19.9 Units 01/04/2019 2:12 PM CDT [facility] Comment: F-Actin Antibody Numeric Result Interpretation: ?<20.0 Units: ??Negative ?20.0 - 30.0 Units: ??Weak Positive ?>30.0 Units: ??Moderate to Strong Positive ? Blood BLOOD SPECIMEN / Unknown Lab Venipuncture / Unknown 01/02/2019 12:36 PM CDT 01/02/2019 12:50 PM CDT Maribel Kitchen MD LAB - SEROLOGY ORDER KAMRON Performing Organization Address [facility]/ZIP Co de Phone Number [address] [phone] * MITOCHONDRIAL ANTIBODY SCREEN (01/02/2019 12:36 PM CDT) Pathologist [facility] Mitochondrial M2 Antibody 2.3 0.0 - 20.0 Units 01/04/2019 2:12 PM CDT [facility] Comment: Mitochondrial M2 Antibody Numeric Result Interpretation: ?<20.1 Units: ??Negative ?20.1 - 24.9 Units: ??Equivocal ?>24.9 Units: ??Positive ? Blood BLOOD SPECIMEN / Unknown Lab Venipuncture / Unknown 01/02/2019 12:36 PM CDT 01/02/2019 12:50 PM CDT Maribel Kitchen MD LAB - CHEMISTRY ORDE RABCONSTANZA Performing Organization Address City/[facility]/ZIP Co de Phone Number [address] [phone] * HEPATITIS C ANTIBODY (01/02/2019 12:36 PM CDT) Hepatitis C Antibody Non-react elizabeth Non-reac tive 01/02/2019 1:33 PM CDT [facility] Comment: Hepatitis C Antibody screen indicates [...] - CHEMISTRY KACY HICKS Performing Organization Address [facility] Co de Phone Number [facility] [address] [place] [address], [facility] [phone] * HEPATITIS B SURFACE ANTIBODY (01/02/2019 12:36 PM CDT) Hepatitis B Virus Surface Antibody Non-react elizabeth Non-react elizabeth 01/02/2019 1:33 PM CDT [facility] Comment: < 8 mIU/mL Hepatitis B surface Antibody (HBsAb). Nonreactive for HBsAb - individual is considered not immune to Hepatitis B Virus infection. Hepatitis B Surface Antibody Quantitative 1.0 <8.0 mIU/mL 01/02/2019 1:33 PM CDT [facility] Comment: Hepatitis B Surface Antibody Numeric Result Interpretation: ? Nonreactive: ?<8.0 mIU/mL ? Indeterminate: ??8.0 - 12.0 mIU/mL ? Reactive: ?>12.0 mIU/mL ? Blood BLOOD SPECIMEN / Unknown Lab Venipuncture / Unknown 01/02/2019 12:36 PM CDT 01/02/2019 12:50 PM CDT Maribel Kitchen MD LAB - CHEMISTRY KACY HICKS Performing Organization Address [facility]/[place] [address], [facility] [phone] * (ABNORMAL) HEPATITIS A ANTIBODY (01/02/2019 12:36 PM CDT) Hepatitis A Virus Antibody Total Positive(A ) Negative 01/03/2019 9:10 AM CDT [facility] ([facility]) Blood BLOOD SPECIMEN / Unknown Lab Venipuncture / Unknown 01/02/2019 12:36 PM CDT 01/02/2019 12:49 PM CDT Narrative [facility] ([facility]) - 01/03/2019 9:10 AM CDT Performed at: ??01 - [facility] [address] [facility], [place], [place] ??[id number] Chain Testing Machine Operator: Juliocesar Sanders PhD, Phone: ??[phone] Maribel Kitchen MD LAB - CHEMISTRY KACY HICKS [facility] ([facility]) [address] [place] [address] * CERULOPLASMIN (01/02/2019 12:36 PM CDT) Pathologist [facility] Ceruloplasmin 42 20 - 60 mg/dL 01/02/2019 1:13 PM CDT [facility] Blood BLOOD SPECIMEN / Unknown Lab Venipuncture / Unknown 01/02/2019 12:36 PM CDT 01/02/2019 12:50 PM CDT Maribel Kitchen MD LAB - CHEMISTRY KACY HICKS [facility] [address] [phone] * MEHDI BLOOD SCREEN W/REFLEX TITER (01/02/2019 12:36 PM CDT) Pathologist [facility] MEHDI Negative 01/03/2019 5:08 PM CDT [facility] ([facility]) Comment: ? Negative ?? <1:80 ? Borderline ??1:80 ? Positive ?? >1:80 Blood BLOOD SPECIMEN / Unknown Lab Venipuncture / Unknown 01/02/2019 12:36 PM CDT 01/02/2019 12:49 PM CDT [facility]) - 01/03/2019 5:08 PM CDT Performed at: ??01 - [facility] [address] [facility], [place], [place] ??[id number] Chain Testing Machine Operator: Juliocesar Sanders PhD, Phone: ??[phone] Maribel Kitchen MD LAB - CHEMISTRY KACY HCIKS [facility] ([facility]) [address] [place] [address], [facility] * [id number] BLOOD PHENOTYPING PANEL (01/02/2019 12:36 PM CDT) Atrwi-0-Ydtdefhoij n 123 90 - 200 mg/dL 01/04/2019 4:09 PM CDT [facility] ([facility]) Comment: Effective January 28, 2019 Wtmcr-6-Eklvyagmnug, ??Serum reference interval will be changing to: [...] CDT 01/02/2019 12:50 PM CDT Narrative [facility] ([facility]) - 01/04/2019 4:09 PM CDT Performed at: ??01 - [facility] [address] [place], [place] ??[id number] Chain Testing Machine Operator: Juliocesar Sanders PhD, Phone: ??[phone] Performed at: ??02 - [facility] [address] ??[id number] Chain Testing Machine Operator: Hari Smith MD, Phone: ??[phone] Maribel Kitchen MD LAB - CHEMISTRY KACY HICKS [facility] ([facility]) [address] [place] [address], [facility] * HEPATIC FUNCTION PANEL (01/02/2019 12:36 PM CDT) Protein Total 8.1 6.0 - 8.3 g/dL 019 1:12 PM CDT [facility] Albumin 4.5 3.4 - 5.0 g/dL 01/02/2019 1:12 PM CDT [facility] Bilirubin Total 0.8 0.2 - 1.2 mg/dL 05/2018 1:12 PM CDT [facility] Bilirubin Conjugated 0.3 0.0 - 0.5 mg/dL 01/02/2019 1:12 PM T [facility] Bilirubin Unconjugated 0.5 Unconjugated Bilirubin is a calculated value: Reference ranges have not been established. mg/dL 01/02/2019 1:12 PM CDT [facility] Alkaline Phosphatase 71 40 - 150 Units/L 01/02/2019 1:12 PM CDT [facility] ALT 24 0 - 55 Units/L 01/02/2019 1:12 PM CDT [facility] AST 20 5 - 34 Units/L 01/02/2019 1:12 PM T [facility] Albumin/Globulin Ratio 1.3 1.1 - 2.3 01/02/2019 1:12 PM CDT [facility] Blood BLOOD SPECIMEN / Unknown Lab Venipuncture / Unknown 01/02/2019 12:36 PM CDT 01/02/2019 12:48 PM CDT Maribel Kitchen MD LAB - CHEMISTRY KACY HICKS [facility] [address] [phone] documented in this encounter Visit Diagnoses Diagnosis Nonalcoholic fatty liver disease Other chronic nonalcoholic liver disease Morbid obesity (HCC) Morbid obesity Liver lesion Other specified disorders of liver documented in this encounter Care Teams Funder Relationship Specialty Start Date End Date Jonelle Elam MD [address] [place] [address] [place] [phone] PCP - General Family Medicine 10/24/18 documented as of this encounter
--- OUTSIDE RECORDS SUMMARY | 2024-04-14 20:12 | XMS_ITS | Encounter Summary ---
Author Organization [employer] Care Team Providers Care Power Cutting Machine Operator Name Role Phone Jonelle [...] on file Legal Sex Female 10:30 PM FACSIMILE MACHINE OPERATOR Gender Identity Not on file Sexual Orientation [...] on filedocumented in this encounter Care Teams Power Cutting Machine Operator Relationship Specialty Start Date End Date Jonelle Elam MD [address] [place] [phone] PCP - General Family Medicine 02/22/15 documented as of this encounter
--- OUTSIDE RECORDS SUMMARY | 2024-04-14 20:12 | XMS_ITS | Encounter Summary ---
Author Organization [facility] Address [address] [place] [address] Phone Care Team Providers Care Software Project Lead Name Role Phone Jonelle Elam MD Primary Care Provider + Reason for Visit * Reason Comments Vomiting Encounter Details Date Type Department Care Team (Late st Contact Info) Description 05/04/2020 1:36 PM RADIO OPERATOR - 05/04/2020 5:16 PM RADIO OPERATOR Emergency [facility] Emergency [address] [place] [address] Vipin Beavers MD [address] [place] [address] Nausea with vomiting Discharge Disposition: Discharged to home or Selfcare Social History Tobacco Use Types Packs/Day Years Used Date Smoking Tobacco: Never Smokeless Tobacco: Never Alcohol Use Standard Drinks/Week Comments No 0 (1 standard drink = 0.6 oz pur e alcohol) Comments No Sex and Gender Information Value Date Recorded Sex Assigned at Not on file Legal Sex Female 10:30 PM RADIO OPERATOR Gender Identity Not on file Sexual Orientation Not on file COVID-19 Exposure Response Date Recorded In the last month, have you been in contact with someone who was confirmed or suspected to have Coronavirus / COVID-19? No / Unsure 05/04/2020 1:32 PM RADIO OPERATOR documented as of this encounter Last Filed Vital Signs Vital Sign Reading Time Taken Comments Blood Pressure 144/72 05/04/2020 5:00 PM RADIO OPERATOR Pulse 79 05/04/2020 5:00 PM RADIO OPERATOR Temperature 36.1 ??C (97 ??F) 05/04/2020 1:33 PM RADIO OPERATOR Respiratory Rate 19 05/04/2020 5:00 PM RADIO OPERATOR Oxygen Saturation 100% 05/04/2020 5:00 PM RADIO OPERATOR Inhaled Oxygen Concentration - - Weight 139.3 kg (307 lb) 05/04/2020 1:33 PM RADIO OPERATOR Height 154.9 cm (5' 1 ) 05/04/2020 1:33 PM RADIO OPERATOR Body Mass Index 58.01 05/04/2020 1:33 PM RADIO OPERATOR documented in this encounter Discharge Instructions * Attachments The following attachments cannot be sent through Care Everywhere. * Vomiting (Adult) (Yemeni) documented in this encounter Medications at Time [...] noted. SL D/C'ed with Dionicio cath intact. O OPERATOR * Linda Sanchez RN - 05/04/2020 4:[address] Beavers at bedside to discuss results with patient. O OPERATOR * Araceli Gallegos RN - 05/04/2020 3:50 PM CST Pt medicated per provider orders. Pt educated on intended effects and side effects of medication and verbalized understanding, able to provide teach back of education. Call light in reach. Urine specimen requested again but pt states she still cannot void. O OPERATOR O OPERATOR * Linda Sanchez RN - 05/04/2020 2:45 PM CST IV access established, blood work drawn, and Pt medicated per provider orders. Pt educated on intended effects and side effects of medication and verbalized understanding, able to provide teach back of education. Pt updated on status and timeframe. Call light in reach. No distress noted at this time. O OPERATOR * Vipin Beavers MD - 05/04/2020 1:43 [...] EXAM, HEMORRHOIDS; Surgeon: Charles Amezcua MD; Location: [facility]; Service: Gastroenterology ??? MYRINGOTOMY [...] file Gets together: Not on file Attends scientologist service: Not on file Active member of [...] Thought content normal. Procedures Imaging Results None [facility] Labs Reviewed CMP (COMPREHENSIVE METABOLIC PANEL) - [...] Abnormality Status --------- ------ CBC with Auto Differential[[id number]] Abnormal Final result Please view results for these tests on the individual orders. HUMAN CHORIONIC GONADOTROPIN SCRN SERUM EXTRA TUBES Narrative: The following orders were created for panel order Extra Tubes. Procedure Abnormality Status --------- ------ Blue Top Tube[[id number]] Final result MINT CLAUDIA LAY HEPARIN/S...[[id number]] Final result Please view results for these tests on the individual orders. URINALYSIS REFLEX IF INDICATED BY ABNORMAL RESULTS BLUE TOP TUBE MINT GREEN, LI HEPARIN/SST TOP TUBE Complete Blood Count (CBC) WITH Diff Final Result CMP (Comprehensive Metabolic Panel) Final Result Lipase Final Result Human Chorionic Gonadotropin Scrn Serum [id number] Final Result Extra Tubes Final Result Urinalysis [...] patient to follow-up with: Jonelle Elam MD [address] [place] [address] Call in 2 days As needed Dispostion: Discharge O OPERATOR * Amanda Barger RN - 05/04/2020 1:35 [...] fevers, and patient is afebrile at thistime. O OPERATOR documented in this encounter Plan of Treatment Not on file documented as of this encounter Procedures Procedure Name Priority Date/Time Associated Diagnosis Comments CBC WITH AUTO DIFFERENTIAL STAT 05/04/2020 2:52 PM RADIO OPERATOR HUMAN CHORIONIC GONADOTROPIN SCRN SERUM STAT 05/04/2020 2:52 PM RADIO OPERATOR LIPASE STAT 05/04/2020 2:52 PM RADIO OPERATOR CMP (COMPREHENSIVE METABOLIC PANEL) STAT 05/04/2020 2:52 PM RADIO OPERATOR COMPLETE BLOOD COUNT (CBC) WITH DIFF STAT 05/04/2020 2:52 PM RADIO OPERATOR EXTRA TUBES STAT 05/04/2020 2:42 PM RADIO OPERATOR CLAUDIA ANN HEPARIN/SST TOP TUBE STAT 05/04/2020 2:42 PM RADIO OPERATOR BLUE TOP TUBE STAT 05/04/2020 2:42 PM RADIO OPERATOR documented in this encounter Results * Human Chorionic Gonadotropin Scrn Serum [id number] (05/04/2020 2:52 PM RADIO OPERATOR) PREG-HCG Negative 05/04/2020 3:26 PM RADIO OPERATOR [facility] Blood Venous Catheter (IV) / Unknown 05/04/2020 2:52 PM RADIO OPERATOR 05/04/2020 3:02 PM RADIO OPERATOR us Vipin Beavers MD CHEMISTRY ORDERABLES Final Resu lt [facility] [place] [address] * (ABNORMAL) CBC with Auto Differential (05/04/2020 2:52 PM [facility]) [facility] WBC 6.73 4.00 - 12.00 10(3)/[facility] 05/04/2020 3:05 PM [facility] RBC 5.08 3.80 - 5.30 10(6)/mcL 05/04/2020 3:05 PM [facility] HEMOGLOBIN (HGB) 13.0 12.0 - 15.8 g/dL 05/04/2020 3:05 PM [facility] HEMATOCRIT (HCT) 40.2 36.0 - 47.0 % 05/04/2020 3:05 PM [facility] MCV 79.1(L) 82.0 - 96.0 fL 05/04/2020 3:05 PM [facility] MCH 25.6(L) 26.0 - 34.0 pg 05/04/2020 3:05 PM [facility] MCHC 32.3 31.0 - 36.0 g/dL 05/04/2020 3:05 PM [facility] PLATELET COUNT 311 140 - 440 10(3)/[facility] 05/04/2020 3:05 PM [facility] RDW 13.2 11.8 - 15.5 % 05/04/2020 3:05 PM [facility] MPV 9.4(L) 9.7 - 12.4 fL 05/04/2020 3:05 PM [facility] NEUTROPHILS 81.3(H) 47.0 - 73.0 % 05/04/2020 3:05 PM [facility] LYMPHOCYTES 14.7(L) 18.0 - 42.0 % 05/04/2020 3:05 PM [facility] MONOCYTES 3.3(L) 4.0 - 12.0 % 05/04/2020 3:05 PM [facility] EOSINOPHILS 0.4 0.0 - 5.0 % 05/04/2020 3:05 PM [facility] BASOPHILS 0.3 0.0 - 1.0 % 05/04/2020 3:05 PM RADIO OPERATOR [facility] ABSOLUTE NEUTROPHILS 5.47 1.60 - 7.70 10(3)/[facility] 05/04/2020 3:05 PM [facility] ABSOLUTE LYMPHOCYTES 0.99(L) 1.30 - 3.20 10(3)/[facility] 05/04/2020 3:05 PM RADIO OPERATOR [facility] ABSOLUTE MONOCY[facility] 0.22 0.20 - 1.00 10(3)/[facility] 05/04/2020 3:05 PM RADIO OPERATOR [facility] ABSOLUTE EOSINOPHIL 0.03 0.00 - 0.40 10(3)/[facility] 05/04/2020 3:05 PM [facility] ABSOLUTE BASOPHILS 0.02 0.00 - 0.10 10(3)/[facility] 05/04/2020 3:05 PM [facility] NRBC PER 100 WBC 0 05/04/19 21 3:05 PM RADIO OPERATOR [facility] Blood Venous Catheter (IV) / Unknown 05/04/2020 2:52 PM RADIO OPERATOR 05/04/2020 3:02 PM RADIO OPERATOR Vipin Beavers MD HEMATOLOGY ORDERABLES Final Res ult Performing Organization Address City/[facility]/ZIP Co de Phone Number [facility] [address] [place] [address] * Lipase (05/04/2020 2:52 PM RADIO OPERATOR) LIPASE 22.3 13 - 60 U/L 05/04/2020 3:27 PM RADIO OPERATOR [facility] Blood Venous Catheter (IV) / Unknown 05/04/2020 2:52 PM RADIO OPERATOR 05/04/2020 3:02 PM RADIO OPERATOR Vipin Beavers MD CHEMISTRY ORDERABLES Final Resu lt [facility] [address] [place] [address] * (ABNORMAL) CMP (Comprehensive Metabolic Panel) (05/04/2020 2:52 PM RADIO OPERATOR) SODIUM 138 136 - 144 mmol/L 05/04/2020 3:28 PM [facility] POTASSIUM 4.1 3.5 - 5.1 mmol/L 05/04/2020 3:28 PM [facility] CHLORIDE 101 100 - 110 mmol/L 05/04/2020 3:28 PM [facility] CO2, VENOUS 25 22 - 32 mmol/L 05/04/2020 3:28 PM [facility] ANION GAP 16.1 8.0 - 20.0 mmol/L 05/04/2020 3:28 PM [facility] GLUCOSE 120(H) 70 - 99 mg/dL 05/04/2020 3:28 PM [facility] BUN 12 6 - 20 mg/dL 05/04/2020 3:28 PM [facility] CREATININE, BLOOD 0.44(L) 0.60 - 1.10 mg/dL 05/04/2020 3:28 PM [facility] BUN/CREATININE RATIO 27(H) 12 - 20 ratio 05/04/2020 3:28 PM [facility] TOTAL PROTEIN 7.7 6.0 - 8.3 g/dL 05/04/2020 3:28 PM [facility] ALBUMIN 4.9 3.5 - 5.2 g/dL 05/04/2020 3:28 PM [facility] Comment: The colormetric methods used for the determination of Albumin may lead to falsely elevated test results in patients suffering from renal failure or insufficiency due to interference with other proteins. A/G RATIO 1.8 1.0 - 2.0 05/04/2020 3:28 PM [facility] CALCIUM 9.7 8.9 - 10.3 mg/dL 05/04/2020 3:28 PM [facility] T BILI 0.6 <=1.2 mg/dL 05/04/2020 3:28 PM RADIO OPERATOR [facility] SGOT (AST) 26 <=32 U/L 05/04/2020 3:28 PM RADIO OPERATOR [facility] SGPT (ALT) 33 <=41 U/L 05/04/2020 3:28 PM RADIO OPERATOR [facility] ALKALINE PHOSPHATASE 71 35 - 105 U/L 05/04/2020 3:28 PM RADIO OPERATOR [facility] GFR, EST. NONAFRICAN >60 >=60 05/04/2020 3:28 PM RADIO OPERATOR [facility] GFR, EST. >60 >=60 021 3:28 PM RADIO OPERATOR [facility] Comment: Creatinine Clearance is the preferred criteria for selecting drug dose adjustments in renally impaired patients. ??The GFR is provided as additional pertinent clinical information. GFR is reported in mL/min/1.73 sq m. Blood Venous Catheter (IV) / Unknown 05/04/2020 2:52 PM RADIO OPERATOR 05/04/2020 3:02 PM RADIO OPERATOR Vipin Beavers MD CHEMISTRY ORDERABLES Final Resu lt Performing Organization Address City[facility] Co de Phone Number [facility] [address] [place] [address] * CLAUDIA ANN HEPARIN/SST TOP TUBE (05/04/2020 2:42 PM RADIO OPERATOR) Blood No Phlebotomy Charged / Unknown 05/04/2020 2:42 PM RADIO OPERATOR 05/04/2020 3:04 PM RADIO OPERATOR Vipin Beavers MD HEMATOLOGY ORDERABLES Final Res ult Performing Organization Address [facility]/ZIP Co de Phone Number [facility] [address] [place] [address] * Blue Top Tube (05/04/2020 2:42 PM RADIO OPERATOR) Blood No Phlebotomy Charged / Unknown 05/04/2020 2:42 PM RADIO OPERATOR 05/04/2020 3:04 PM RADIO OPERATOR us Vipin Beavers MD HEMATOLOGY ORDERABLES Final Res ult [facility] [address] [place] [address] documented in this encounter Visit Diagnoses Diagnosis Nausea with vomiting- Primary documented in this encounter Administered Medications Inactive Administered Medications - up to 3 most recent administrations Medication Order MAR Action Action Date Dose Rate Site 0.9 % sodium chloride solution at 1,000 mL/hr, Intravenous, ONCE, 1 dose, On Mon05/04/20 at 1400 New Bag 05/04/2020 2:42 PM RADIO OPERATOR 1000 mL/hr acetaminophen (TYLENOL) tablet 650 mg 650 mg, Oral, ONCE, 1 dose, On Mon05/04/20 at 1530, Maximum dose of acetaminophen is 4000 mg from all sources in 24 hours. Given 05/04/2020 3:18 PM RADIO OPERATOR 650 mg ondansetron (ZOFRAN) injection 4 mg 4 mg, Intravenous, ONCE, 1 dose, On Mon05/04/20 at 1400 Given 05/04/2020 2:42 PM RADIO OPERATOR 4 mg ondansetron (ZOFRAN) injection 4 mg 4 mg, Intravenous, ONCE, 1 dose, On Mon05/04/20 at 1630 Given 05/04/2020 3:50 PM RADIO OPERATOR 4 mg documented in this encounter Active and Recently Administered Medications Times are shown in RADIO OPERATOR. Scheduled Medication Order 05/02/2020 05/03/2020 05/04/2020 0.9 [...] 19 Confirmed 05/04/2020 05/04/2020 021 12:18 AM RADIO OPERATOR documented as of this encounter Care Teams Software Project Lead Relationship Specialty Start Date End Date Jonelle Elam MD [address] [place] [id number] PCP - General Family Medicine 02/22/15 documented as of this encounter
--- OUTSIDE RECORDS SUMMARY | 2024-04-14 20:12 | XMS_ITS | Encounter Summary ---
Author Organization [employer] Care Team Providers Care Direct Mail Marketer Name Role Phone Jonelle Elam MD Primary [...] on file Legal Sex Female 10:30 PM WELL HEAD PUMPER Gender Identity Not on file Sexual Orientation Not on file COVID-19 Exposure Response Date Recorded In the last month, have you been in contact with someone who was confirmed or suspected to have Coronavirus / COVID-19? No / Unsure 05/04/2020 1:32 PM WELL HEAD PUMPER documented as of this encounter Plan of Treatment Not on file documented as of this encounter Visit Diagnoses Not on filedocumented in this encounter Additional Health Concerns Infection Onset Date Last Indicated Resolved Time COVID - 19 Confirmed 05/04/2020 05/04/2020 021 12:18 AM WELL HEAD PUMPER documented as of this encounter Care Teams Direct Mail Marketer Relationship Specialty Start Date End Date Jonelle Elam MD [address] [place] [id number] PCP - General Family Medicine 02/22/15 documented as of this encounter
--- OUTSIDE RECORDS SUMMARY | 2024-04-14 20:12 | XMS_ITS | Encounter Summary ---
Author Organization [facility] Address [address] [place] [address] Care Team Providers Care Roof Bolter Operator Name Role Phone Jonelle Elam MD Primary Care Provider [phone] Encounter Details Date Type Department Care Team (Late st Contact Info) Description 03/11/2020 Orders Only [facility] Management Services [address] [place] [phone] Manju Rainey, [address] [place], [place] [address] Vitamin D deficiency Social History Tobacco Use [...] She voices understanding and agrees with plan. L LAYER documented in this encounter Plan of Treatment Not on file documented as of this encounter Visit Diagnoses Diagnosis Vitamin D deficiency- Primary documented in this encounter Care Teams Roof Bolter Operator Relationship Specialty Start Date End Date Jonelle Elam MD [address] [place] [address] [place] [phone] PCP - General Family Medicine 10/24/18 documented as of this encounter
--- OUTSIDE RECORDS SUMMARY | 2024-04-14 20:12 | XMS_ITS | Encounter Summary ---
Author Organization [facility] Address [address] [facility] [place] [address] Care Team Providers Care Motorsports Technician Name Role Phone Jonelle Elam MD Primary Care Provider Reason for Visit * Reason Comments Ultrasound * Evaluate & Treat (Routine) - Closed Specialty Diagnoses / Procedures Referred By Ritika t Referred To Contact Maternal Medicine Diagnoses Obesity complicating , unspecified trimester (HCC) Liver disease, unspecified Fatty (change of) liver, not elsewhere classified Procedures SD FULL ROUT OBSTE CARE,VAGINAL Taurus Amos MD [address] [place] [address] [facility] [address] [place] [address] Referral ID Status Reason Start Date Expiration Date Visits Re quested Visits Authorized [id number] Closed 06/05/2019 12/02/2019 20 20 Encounter Details Date Type Department Care Team (Latest Contact Info) Description 06/21/2019 10:59 AM CDT - 06/21/2019 11:59 PM CDT Hospital Encounter [facility] [address] [place], [place] [phone] Amena Mack MD [address] [address] Luis Daniel Damico MD Discharge Disposition: Home [...] Pat. Name: ?MARY CARMEN CROSS Pat. No: ?[id number] Study Date: ?? 06/21/2019 ??11:11am , Age: ? 1995, 23 Pregnancies: ?? 3, Para 2 Height: ? 61 in Weight: ? 288 lb LMP: ?Unknown GA by US: ? 21w0d ?? LUISA: 11/01/2019 GA Selected: ??20w6d (From Known E) LUISA: ?11/02/2019 Referring MD: Ede Maldonado MD Wardrobe Assistant: ??Mariaa Chester RDMS CPT4: ? 43688,14468 BMI: ?54.41 Hist/Ind: ? Anatomy Screen ?Maternal Liver Lesion ?Class IV Obesity ?CHTN ?PTD @36wks x2 MEASUREMENTS & AGE ? GROWTH EVALUATION Measurement ??GA ? Range ? Srce %for GA Ratios ----- ---- ------- BPD ??4.8 cm 20w3d (57w6u-53x8g) Hadl BPD 33% FL/BPD 0.73 HC ??18.9 cm 21w1d (66h1x-46p1l) Hadl HC ??57% FL/AC ??0.21 AC ??16.8 cm 21w5d (71t9s-76z4z) Hadl AC ??74% HC/AC ??1.13 (1.06 - 1.24) FL ?? 3.5 cm 21w0d (86j6k-43y7m) Hadl FL ??47% CI ? 0.68 (0.70 - 0.86* HL ?? 3.2 cm 20w6d (75f0v-76j6y) Errol HL ??50% Cere 2.3 cm 21w1d (08w8r-49g7t) Hill Cere57% GA for sonogram 21w0d (91v5q-50b5z) ?? Weight Estimate: based on (HL,BPD,HC,AC,FL) Avg [...] Signature> ??06/21/2019 07:23pm R Gary Maldonado MD [facility] ORDERABLES documented in this encounter Visit [...] incidental documented in this encounter Care Teams Motorsports Technician Relationship Specialty Start Date End Date Jonelle Elam MD [address] [place] [phone] PCP - General Family Medicine 10/24/18 documented as of this encounter
--- OUTSIDE RECORDS SUMMARY | 2024-04-14 20:12 | XMS_ITS | Encounter Summary ---
Author Organization [facility] Address [address] [place] [address] Care Team Providers Care Meat Cutter Name Role Phone Jonelle Elam MD Primary Care Provider [phone] Reason for Visit * Reason Comments Results Encounter Details Date Type Department Care Team (Late st Contact Info) Description 01/14/2019 Telephone [facility] - [address] [phone] Leo Quijano, RN Results Social History Tobacco [...] on filedocumented in this encounter Care Teams Meat Cutter Relationship Specialty Start Date End Date Jonelle Elam MD [address] [place] [address] [place] [phone] PCP - General Family Medicine 10/24/18 documented as of this encounter
--- OUTSIDE RECORDS SUMMARY | 2024-04-14 20:12 | XMS_ITS | Encounter Summary ---
Author Organization [facility] Address [address] [facility] [place] [address] Care Team Providers Care Installation Engineer Name Role Phone Jonelle Elam MD Primary Care Provider [phone] Reason for Referral * Consult, Test & Treat (Routine) - Closed Specialty Diagnoses / Procedures Referred By Contac t Referred To Contact Diagnoses Maternal morbid obesity, antepartum (HCC) Supervision of high-risk of young multigravida (HCC) Chronic hypertension affecting (HCC) History of delivery Procedures MATERNAL MEDICINE CONSULT Taurus Maldonado MD [address] [place] [address] Referral ID Status Reason Start Date Expiration Date Visits Re quested Visits Authorized [id number] Closed 08/27/2019 02/23/2020 1 1 Reason for Visit * Reason Comments Consultation * Evaluate & Treat (Routine) - Closed Specialty Diagnoses / Procedures Referred By Contac t Referred To Contact Maternal Medicine Diagnoses Obesity complicating , unspecified trimester (HCC) Liver disease, unspecified Fatty (change of) liver, not elsewhere classified Procedures ID FULL ROUT OBSTE CARE,VAGINAL DELIV Taurus Maldonado MD [address] [place] [address] [facility] [address] [place] [address] Referral ID Status Reason Start Date Expiration Date Visits Re quested Visits Authorized [id number] Closed 06/05/2019 12/02/2019 20 20 Encounter Details Date Type Department Care Team (Latest Contact Info) Description 08/28/2019 9:41 AM CDT - 08/28/2019 11:59 PM CDT Hospital Encounter [facility] Maternal & Care [address] [place] [phone] Mahad Aleman MD [address] [place] [address] Discharge Disposition: Home or Self Care Social [...] ambesol for pain relief. Patient went to [facility] yesterday as she was in [facility] and felt fluid leaking down her legs [...] this encounter Consult Notes * Sayra Nj, LIBRARY ATTENDANT-BOOKING POLICE OFFICER - 08/28/2019 9:45 AM CDTAssociated Order(s): AMB [...] of ASA. She was evaluated yesterday at [facility] due to leakage of fluid, [...] <155/95 2. Bring blood pressure log to Foundry Process Engineer visits 3. Continue ASA prophylaxis 4. Reassess [...] supplementation that was never started by primary electronic prepress system operator. Negative exam per patient review for rupture of membranes at [facility] yesterday. Asymptomatic today for labor. ?? Maternal Medicine recommendations: 1. labor precautions in detail today 2. Warrant increased surveillance by primary electronic prepress system operator 3. Seek evaluation with any concerns regarding [...] testing every trimester--to be ordered by primary electronic prepress system operator, please send copy of recent results. 2. [...] and anxiety disorder. 4. Ongoing assessment at [facility] visits. Frequent headaches Just picked up Riboflavin [...] not made appointment. Swimming with some relief. [facility] Plan: 1. Again encouraged to reach out to physical therapy, she assures me she has the order form at home. * Assessment & Plan Note - Sayra Nj APRN-CNP - 08/28/2019 12:35 PM CDTAssociated Problem(s): Frequent headaches Just picked up Riboflavin today, rarely uses Tylenol due to NAEFD. Headaches have not worsened. [facility] Plan: 1. Reviewed headaches and if there [...] understands she cannot take this during . [facility] Plan: 1. Reviewed benefit of counseling again today, especially since she is exhibiting behaviors that are affecting her well being. 2. Offered medication and she declined. 3. Close surveillance for mood and anxiety disorder. 4. Ongoing assessment at [facility] visits. * Assessment & Plan Note - Sayra Nj APRN-CNP - 08/28/2019 10:33 AM CDTAssociated Problem(s): NAFLD (nonalcoholic fatty liver disease) Remains at risk for complications of related to pre-existing liver disease and suspected chronic hypertension. Patient believes she had CMP drawn at primary OB last week. ?? Maternal Medicine recommendations: 1. Serial liver function testing every trimester--to be ordered by primary electronic prepress system operator, please send copy of recent results. 2. [...] supplementation that was never started by primary electronic prepress system operator. Negative exam per patient review for rupture of membranes at [facility] yesterday. Asymptomatic today for labor. ?? Maternal Medicine recommendations: 1. labor precautions in detail today 2. Warrant increased surveillance by primary electronic prepress system operator 3. Seek evaluation with any concerns regarding [...] <155/95 2. Bring blood pressure log to Foundry Process Engineer visits 3. Continue ASA prophylaxis 4. Reassess [...] mg) documented in this encounter Care Teams Installation Engineer Relationship Specialty Start Date End Date Jonelle Elam MD [address] [place] [address] [place] [phone] PCP - General Family Medicine 10/24/18 documented as of this encounter
--- OUTSIDE RECORDS SUMMARY | 2024-04-14 20:12 | XMS_ITS | Encounter Summary ---
Author Organization [facility] Address [address] [place] [address] Phone Care Team Providers Care Ladle Car Operator Name Role Phone Jonelle Elam MD Primary Care Provider + Encounter Details Date Type Department Care Team (Late st Contact Info) Description 03/09/2020 [facility] [place] [phone] Manju Rainey DO [address] [place] [id number] Morbid obesity (HCC) (Primary Dx) Social History Tobacco Use Types Packs/Day Years Used Date Smoking Tobacco: Never Smokeless Tobacco: Never Alcohol Use Standard Drinks/Week Comments No 0 (1 standard drink = 0.6 oz pur e alcohol) Comments No Sex and Gender Information Value Date Recorded Sex Assigned at Not on file Legal Sex Female 10:30 PM ALGORITHM DEVELOPER Gender Identity Not on file Sexual Orientation Not on file documented as of this encounter Plan of Treatment Not on file documented as of this encounter Results * HEMOGLOBIN A1C W/ ESTIMATED GLUCOSE (03/09/2020 1:18 PM ALGORITHM DEVELOPER) HGB-A1C 5.6 4.0 - 6.0 % 03/09/2020 2:05 PM ALGORITHM DEVELOPER [facility] Est Average Glucose 114.0 mg/dL 03/09/2020 2:05 PM ALGORITHM DEVELOPER [facility] Blood Venipuncture / Unknown 03/09/2020 1:18 PM ALGORITHM DEVELOPER 03/09/2020 1:31 PM ALGORITHM DEVELOPER Narrative [facility] - 03/09/2020 2:05 PM ALGORITHM DEVELOPER HEMOGLOBIN A1C: DIABETIC PATIENTS: WELL-CONTROLLED: ?? 6.2 - 7.0 INTERMEDIATE WELL-CONTROLLED: ??7.0 - 9.0 POORLY-CONTROLLED: ??>9.0 Manju Rainey DO CHEMISTRY ORDERABLES Final Resu lt [facility] #[address] [place] [address] * IRON (FE) (03/09/2020 1:18 PM ALGORITHM DEVELOPER) IRON 67.44 37 - 145 mcg/dL 03/09/2020 2:05 PM ALGORITHM DEVELOPER [facility] Blood Venipuncture / Unknown 03/09/2020 1:18 PM ALGORITHM DEVELOPER 03/09/2020 1:31 PM ALGORITHM DEVELOPER Manju Rainey DO CHEMISTRY ORDERABLES Final Resu lt [facility] [address] [place] [address] * (ABNORMAL) LIPID PANEL (03/09/2020 1:18 PM ALGORITHM DEVELOPER) CHOLESTEROL 203(H) <=200 mg/dL 03/09/2020 2:05 PM ALGORITHM DEVELOPER [facility] TRIGLYCERIDES 166(H) <150 mg/dL 03/09/2020 2:05 PM ALGORITHM DEVELOPER [facility] HDL CHOLESTEROL 43.7 >40 mg/dL 0 2:05 PM ALGORITHM DEVELOPER [facility] LDL 126 5 - 130 mg/dL 03/09/2020 2:05 PM ALGORITHM DEVELOPER [facility] VLDL 33 5 - 55 mg/dL 03/09/2020 2:05 PM ALGORITHM DEVELOPER [facility] CHOL/HDL RATIO 4.6(H) 0.0 - 4.4 03/09/2020 2:05 PM ALGORITHM DEVELOPER [facility] NON-HDL CHOLESTEROL 159.3(H) <130 mg/dL 03/09/2020 2:05 PM ALGORITHM DEVELOPER [facility] IS THE PATIENT REQUIRED TO BE FASTING? No 03/09/2020 2:05 PM ALGORITHM DEVELOPER [facility] Blood Venipuncture / Unknown 03/09/2020 1:18 PM ALGORITHM DEVELOPER 03/09/2020 1:31 PM ALGORITHM DEVELOPER Manju Rainey DO CHEMISTRY ORDERABLES Final Resu lt Performing Organization Address City[facility]/ZIP Co de Phone Number [facility] [address] [place] [address] * THYROID STIMULATING HORMONE (TSH) (03/09/2020 1:18 PM ALGORITHM DEVELOPER) TSH 0.978 0.270 - 4.200 mIU/L 03/09/2020 2:05 PM ALGORITHM DEVELOPER [facility] Blood Venipuncture / Unknown 03/09/2020 1:18 PM ALGORITHM DEVELOPER 03/09/2020 1:31 PM ALGORITHM DEVELOPER Manju Rainey DO CHEMISTRY ORDERABLES Final Resu lt Performing Organization Address City[facility]/ZIP Co de Phone Number [facility] [address] [place] [address] * (ABNORMAL) VITAMIN D, 25 HYDROXY TOTAL (03/09/2020 1:18 PM ALGORITHM DEVELOPER) VITAMIN D, 25 HYDROX 16(L) >=30 ng/mL 03/09/2020 2:14 PM ALGORITHM DEVELOPER [facility] Blood Venipuncture / Unknown 03/09/2020 1:18 PM ALGORITHM DEVELOPER 03/09/2020 1:31 PM ALGORITHM DEVELOPER Narrative [facility] - 03/09/2020 2:14 PM ALGORITHM DEVELOPER Published reference ranges for Vitamin D vary depending on time and place and method of testing, and on patient's age, sex, ethnicity and levels of other measured analytes such as parathormone, calcium and phosphorus. ??The result should be evaluated in conjunction with clinical findings and suspicions. [employer] of [employer] and Endocrine Clinical Practice Guidelines: Status Vitamin D levels (ng/mL) Deficient <=20 At risk of inadequacy 21-29 Sufficient 30-100 Centers of Disease Control and Prevention Guidelines: Status Vitamin D levels (ng/mL) Deficient <13 At risk of inadequacy 13-19 Sufficient 20-50 Possibly harmful >50 References: [employer], 2010 Dietary reference intakes for calcium and vitamin D. [place]: ??The National Academies Press. Nicki M, Jeffry N, David DONOVAN, et al., Evaluation, treatment, and prevention of Vitamin D deficiency: an Endocrinology Clinical Practice Guideline. JCEM 2011 96: 7 8375-1841. Adelita A, Dago C, Raimundo Noel, et al., Vitamin D Status: ??[place], 2000- 6, [facility] data brief, no. 59, MD [place]: ??National Center for Health Statistics. 2010. Manju Rainey DO CHEMISTRY ORDERABLES Final Resu lt [facility] [address] [place] [address] documented in this encounter Visit Diagnoses Diagnosis Morbid obesity (HCC)- Primary Morbid obesity documented in this encounter Care Teams Ladle Car Operator Relationship Specialty Start Date End Date Jonelle Elam MD [address] [place] [id number] PCP - General Family Medicine 02/22/15 documented as of this encounter
--- OUTSIDE RECORDS SUMMARY | 2024-04-14 20:12 | XMS_ITS | Encounter Summary ---
Author Organization [facility] Address [address] [place] [address] Phone Care Team Providers Care Serology Teacher Name Role Phone Jonelle Elam MD Primary Care Provider + Encounter Details Date Type Department Care Team (Latest Contact Info) Description 04/30/2020 [facility] 1 [place] [phone] Maribel Kitchen MD [address] [facility] [address] [place] [address] Liver lesion (Primary Dx); Focal nodular hyperplasia [...] on file Legal Sex Female 10:30 PM RAILROAD CAR LOADER Gender Identity Not on file Sexual Orientation Not on file COVID-19 Exposure Response Date Recorded In the last month, have you been in contact with someone who was confirmed or suspected to have Coronavirus / COVID-19? No / Unsure 05/01/2020 4:12 PM RAILROAD CAR LOADER documented as of this encounter Plan of Treatment Not on file documented as of this encounter Results * HEPATIC FUNCTION PANEL (05/01/2020 4:25 PM RAILROAD CAR LOADER) T BILI 0.4 <=1.2 mg/dL 05/01/2020 4:56 PM RAILROAD CAR LOADER [facility] BILIRUBIN,DIRECT <0.3 <=0.3 mg/dL 05/01/2020 4:56 PM RAILROAD CAR LOADER [facility] ALKALINE PHOSPHATASE 70 35 - 105 U/L 05/01/2020 4:56 PM RAILROAD CAR LOADER [facility] SGOT (AST) 23 <=32 U/L 05/01/2020 4:56 PM RAILROAD CAR LOADER [facility] SGPT (ALT) 32 <=41 U/L 05/01/2020 4:56 PM RAILROAD CAR LOADER [facility] TOTAL PROTEIN 7.0 6.0 - 8.3 g/dL 05/01/2020 4:56 PM RAILROAD CAR LOADER [facility] ALBUMIN 4.4 3.5 - 5.2 g/dL 05/01/2020 4:56 PM RAILROAD CAR LOADER [facility] Comment: The colormetric methods used for the determination of Albumin may lead to falsely elevated test results in patients suffering from renal failure or insufficiency due to interference with other proteins. Blood Venipuncture / Unknown 05/01/2020 4:25 PM RAILROAD CAR LOADER 05/01/2020 4:32 PM RAILROAD CAR LOADER Maribel Kitchen MD CHEMISTRY ORDERABLES Final Re sult [facility] [address] [place] [address] documented in this encounter Visit Diagnoses Diagnosis Liver lesion- Primary Other specified disorders of liver Focal nodular hyperplasia determined by liver biopsy NAFLD (nonalcoholic fatty liver disease) Other chronic nonalcoholic liver disease Morbid obesity (HCC) Morbid obesity documented in this encounter Additional Health Concerns Infection Onset Date Last Indicated Resolved Time COVID - 19 Confirmed 05/04/2020 05/04/2020 021 12:18 AM RAILROAD CAR LOADER documented as of this encounter Care Teams Serology Teacher Relationship Specialty Start Date End Date Jonelle Elam MD [address] [place] [phone] PCP - General Family Medicine 02/22/15 documented as of this encounter
--- OUTSIDE RECORDS SUMMARY | 2024-04-14 20:12 | XMS_ITS | Encounter Summary ---
Author Organization [facility] Address [address] [place] [address] Care Team Providers Care Delivery Specialist Name Role Phone Jonelle Elam MD Primary Care Provider [phone] Encounter Details Date Type Department Care Team (Late st Contact Info) Description 04/12/2019 3:10 PM SENIOR NET PROGRAMMER - 04/12/2019 11:59 PM [facility] Hospital Encounter [facility] DRAW STATION [address] [place] [address] Maribel Kitchen MD [address] [place] [phone] Discharge Disposition: Home or Self Care Social [...] HEPATIC FUNCTION PANEL Routine 04/12/2019 3:14 PM SENIOR NET PROGRAMMER Nonalcoholic fatty liver disease Liver lesion Focal nodular hyperplasia of liver documented in this encounter Results * (ABNORMAL) HEPATIC FUNCTION PANEL (04/12/2019 3:14 PM SENIOR NET PROGRAMMER) Protein Total 7.8 6.0 - 8.3 g/dL 020 4:02 PM [facility] Albumin 3.9 3.4 - 5.0 g/dL 04/12/2019 4:02 PM [facility] Bilirubin Total 0.7 0.2 - 1.2 mg/dL 04/03 4:02 PM [facility] Bilirubin Conjugated 0.2 0.0 - 0.5 mg/dL 04/12/2019 4:02 PM [facility] Bilirubin Unconjugated 0.5 Unconjugated Bilirubin is a calculated value: Reference ranges have not been established. mg/dL 04/12/2019 4:02 PM [facility] Alkaline Phosphatase 55 40 - 150 Units/L 04/12/2019 4:02 PM [facility] ALT 12 0 - 55 Units/L 04/12/2019 4:02 PM [facility] AST 16 5 - 34 Units/L 04/12/2019 4:02 PM [facility] Albumin/Globulin Ratio 1.0(L) 1.1 - 2.3 04/12/2019 4:02 PM [facility] Blood BLOOD SPECIMEN / Unknown Lab Venipuncture / Unknown 04/12/2019 3:14 PM SENIOR NET PROGRAMMER 04/12/2019 3:26 PM SENIOR NET PROGRAMMER Maribel Kitchen MD LAB - CHEMISTRY [facility] [address] [phone] documented in this encounter Visit Diagnoses Diagnosis Nonalcoholic fatty liver disease Other chronic nonalcoholic liver disease Liver lesion Other specified disorders of liver Focal nodular hyperplasia of liver Other specified disorders of liver documented in this encounter Care Teams Delivery Specialist Relationship Specialty Start Date End Date Jonelle Elam MD [address] [place] [address] [place] [phone] PCP - General Family Medicine 10/24/18 documented as of this encounter
--- OUTSIDE RECORDS SUMMARY | 2024-04-14 20:12 | XMS_ITS | Encounter Summary ---
Author Organization [facility] Address [address] [place] [address] Phone Care Team Providers Care Journalism Professor Name Role Phone Jonelle Elam MD Primary Care Provider + Reason for Visit * Reason Comments High Blood Pressure Encounter Details Date Type Department Care Team (Late st Contact Info) Description 06/29/2021 11:57 AM CDT - 06/29/2021 2:52 PM CDT Emergency [facility] Emergency 1 [place] [address] Amanda Barger APRN, SCREEN PRINTING MACHINE OPERATOR HELPER [address] [place] [address] Migraine headache Discharge Disposition: Discharged to home or Selfcare Social History Tobacco Use Types Packs/Day Years Used Date Smoking Tobacco: Never Smokeless Tobacco: Never Alcohol Use Standard Drinks/Week Comments No 0 (1 standard drink = 0.6 oz pur e alcohol) Comments No Sex and Gender Information Value Date Recorded Sex Assigned at Not on file Legal Sex Female 10:30 PM SENIOR ART DIRECTOR Gender Identity Not on file Sexual Orientation [...] sent through Care Everywhere. * Migraine Headache [id number] (French) * Hypertension Adult [id number]-[id number] (French) documented in this encounter Medications at Time [...] back of education. * Amanda Barger APRN, SCREEN PRINTING MACHINE OPERATOR HELPER - 06/29/2021 1:31 PM CDT Chief Complaint [...] EXAM, HEMORRHOIDS; Surgeon: Charles Amezcua MD; Location: [facility]; Service: Gastroenterology ??? MYRINGOTOMY [...] created for panel order CBC with Diff [id number]. Procedure Abnormality Status --------- ------ CBC with Auto Differential[[id number]] Abnormal Final result Please view results for [...] created for panel order CBC with Diff [id number]. Procedure Abnormality Status --------- ------ CBC with Auto Differential[[id number]] Abnormal Final result Please view results for these tests on the individual orders. CBC with Diff [id number] Final Result Comprehensive Metabolic Panel (Cmp) [id number] Final Result MDM Number of Diagnoses or [...] - 12.00 10(3)/mcL 06/29/2021 1:47 PM [facility] RBC 4.98 3.80 - 5.30 10(6)/mcL 06/29/2021 1:47 PM CDT [facility] HEMOGLOBIN (HGB) 13.4 12.0 - 15.8 g/dL 06/29/2021 1:47 PM CDT [facility] HEMATOCRIT (HCT) 41.8 36.0 - 47.0 % 06/29/2021 1:47 PM CDT [facility] MCV 83.9 82.0 - 96.0 fL 06/29/2021 1:47 PM CDT [facility] MCH 26.9 26.0 - 34.0 pg 06/29/2021 1:47 PM CDT [facility] MCHC 32.1 31.0 - 36.0 g/dL 06/29/2021 1:47 PM CDT [facility] PLATELET COUNT 285 140 - 440 10(3)/mcL 06/29/2021 1:47 PM CDT [facility] RDW 13.4 11.8 - 15.5 % 06/29/2021 1:47 PM CDT [facility] MPV 10.2 9.7 - 12.4 fL 06/29/2021 1:47 PM CDT [facility] NEUTROPHILS 76.3(H) 47.0 - 73.0 % 06/29/2021 1:47 PM CDT [facility] LYMPHOCYTES 18.0 18.0 - 42.0 % 06/29/2021 1:47 PM CDT [facility] MONOCYTES 4.4 4.0 - 12.0 % 06/29/2021 1:47 PM CDT [facility] EOSINOPHILS 0.7 0.0 - 5.0 % 06/29/2021 1:47 PM CDT [facility] BASOPHILS 0.6 0.0 - 1.0 % 06/29/2021 1:47 PM CDT [facility] ABSOLUTE NEUTROPHILS 6.45 1.60 - 7.70 10(3)/mcL 06/29/2021 1:47 PM CDT [facility] ABSOLUTE LYMPHOCYTES 1.52 1.30 - 3.20 10(3)/mcL 06/29/2021 1:47 PM CDT [facility] ABSOLUTE MONOCYTES 0.37 0.20 - 1.00 10(3)/[facility] 06/29/2021 1:47 PM CDT [facility] ABSOLUTE EOSINOPHIL 0.06 0.00 - 0.40 10(3)/[facility] 06/29/2021 1:47 PM CDT [facility] ABSOLUTE BASOPHILS 0.05 0.00 - 0.10 10(3)/[facility] 06/29/2021 1:47 PM CDT [facility] NRBC PER 100 WBC 0 06/30/19 1:47 PM CDT [facility] Blood Venipuncture / Unknown 06/29/2021 1:25 PM CDT 06/29/2021 1:42 PM CDT us Amanda Barger SILK SCREEN PRINTER MACHINE, SCREEN PRINTING MACHINE OPERATOR HELPER HEMATOLOGY ORDERABLES Final Result [facility] [address] [place] [address] * (ABNORMAL) Comprehensive Metabolic Panel (Cmp) [id number] (06/29/2021 1:25 PM CDT) SODIUM 136 136 - 144 mmol/L 06/29/2021 2:07 PM CDT [facility] POTASSIUM 4.1 3.5 - 5.1 mmol/L 06/29/2021 2:07 PM CDT [facility] CHLORIDE 102 100 - 110 mmol/L 06/29/2021 2:07 PM CDT [facility] CO2, VENOUS 20(L) 22 - 32 mmol/L 06/29/2021 2:07 PM CDT [facility] ANION GAP 18.1 8.0 - 20.0 mmol/L 06/29/2021 2:07 PM CDT [facility] GLUCOSE 115(H) 70 - 99 mg/dL 06/29/2021 2:07 PM CDT [facility] BUN 11 6 - 20 mg/dL 06/29/2021 2:07 PM CDT [facility] CREATININE, BLOOD 0.47(L) 0.60 - 1.10 mg/dL 06/29/2021 2:07 PM CDT [facility] BUN/CREATININE RATIO 23(H) 12 - 20 ratio 06/29/2021 2:07 PM CDT [facility] TOTAL PROTEIN 7.7 6.0 - 8.3 g/dL 06/29/2021 2:07 PM CDT [facility] ALBUMIN 4.8 3.5 - 5.2 g/dL 06/29/2021 2:07 PM CDT [facility] Comment: The colormetric methods used for the determination of Albumin may lead to falsely elevated test results in patients suffering from renal failure or insufficiency due to interference with other proteins. A/G RATIO 1.7 1.0 - 2.0 06/29/2021 2:07 PM CDT [facility] CALCIUM 9.4 8.9 - 10.3 mg/dL 06/29/2021 2:07 PM CDT [facility] T BILI 0.7 <=1.2 mg/dL 06/29/2021 2:07 PM CDT [facility] SGOT (AST) 24 <=32 U/L 06/29/2021 2:07 PM CDT [facility] SGPT (ALT) 25 <=41 U/L 06/29/2021 2:07 PM CDT [facility] ALKALINE PHOSPHATASE 69 35 - 105 U/L 06/29/2021 2:07 PM CDT [facility] GFR, EST. NONAFRICAN >60 >=60 06/29/2021 2:07 PM CDT [facility] GFR, EST. >60 >=60 022 2:07 PM CDT [facility] Comment: Creatinine Clearance is the preferred criteria for selecting drug dose adjustments in renally impaired patients. ??The GFR is provided as additional pertinent clinical information. GFR is reported in mL/min/1.73 sq m. Blood Venipuncture / Unknown 06/29/2021 1:25 PM CDT 06/29/2021 1:42 PM CDT us Amanda Barger SILK SCREEN PRINTER MACHINE, SCREEN PRINTING MACHINE OPERATOR HELPER CHEMISTRY ORDERABLES Final Result [facility] [address] [place] [address] documented in this encounter Visit Diagnoses Diagnosis [...] (Given - Provid er: Yazmin Campbell RN) diphenhydrAMINE (BENADRYL) injection 25 mg (COMPLETED) 25 mg, Intravenous, ONCE, 1 dose, On 06/29/21 at 1400 1343 (Given - Provid er: Yazmin Campbell RN) metoclopramide (REGLAN) injection 10 mg (COMPLETED) 10 mg, Intravenous, ONCE, 1 dose, On 06/29/21 at 1400 1343 (Given - Provid er: Yazmin Campbell RN) ondansetron (ZOFRAN) injection 4 mg (COMPLETED) 4 mg, Intravenous, ONCE, 1 dose, On 06/29/21 at 1400 1343 (Given - Provid er: Yazmin Campbell RN) documented in this encounter Care Teams Journalism Professor Relationship Specialty Start Date End Date Jonelle Elam MD [address] [place] [id number] PCP - General Family Medicine 02/22/15 documented as of this encounter
--- OUTSIDE RECORDS SUMMARY | 2024-04-14 20:12 | XMS_ITS | Encounter Summary ---
Author Organization [facility] Address [address] [facility] [place] [address] Care Team Providers Care Camp Housekeeper Name Role Phone Jonelle Elam MD Primary Care Provider Reason for Visit * Reason Comments Obesity Follow Up Encounter Details Date Type Department Care Team (Late st Contact Info) Description 02/12/2020 11:00 AM EARTH MOVING MACHINE OPERATOR Office Visit [facility] [address] [place] [phone] Manju Rainey, DO [address] [place], [place] [address] Obesity, morbid, BMI 50 or higher (HCC) [...] Comments Blood Pressure 150/90 02/12/2020 11:00 AM EARTH MOVING MACHINE OPERATOR Pulse 68 02/12/2020 11:00 AM EARTH MOVING MACHINE OPERATOR Temperature 36.4 ??C (97.5 ??F) 02/12/2020 1 1:00 AM EARTH MOVING MACHINE OPERATOR Respiratory Rate 16 02/12/2020 11:0 0 AM EARTH MOVING MACHINE OPERATOR Oxygen Saturation 95% 02/12/2020 11: 00 AM EARTH MOVING MACHINE OPERATOR Inhaled Oxygen Concentration - - Weight 142.9 kg (315 lb 1.6 oz) 020 11:00 AM EARTH MOVING MACHINE OPERATOR Height 158.4 cm (5' 2.36 ) 02/12/2020 1 1:00 AM EARTH MOVING MACHINE OPERATOR Body Mass Index 56.97 02/12/2020 11:00 AM EARTH MOVING MACHINE OPERATOR documented in this encounter Patient Instructions * Patient Instructions* Manju Rainey, - 02/12/2020 12:43 PM EARTH MOVING MACHINE OPERATOR Images from the original note were not included. Patient Education Weight Management HOME MANAGER: Why it is important to manage your [...] foods. Some examples of high-fat foods include welsh fries, doughnuts, ice cream, and cakes. ?? [...] on your weight loss goals. ?? Copyright [employer] 2019 Information is for End User's use only and may not be sold, redistributed or otherwise used for commercial purposes. All illustrations and images included in CareNotes?? are the copyrighted property of [employer], [employer]. or [employer] The above information is an medication aid only. It is not intended as medical advice for individual conditions or treatments. Talk to your doctor, nurse or pharmacist before following any medical regimen to see if it is safe and effective for you. H MOVING MACHINE OPERATOR documented in this encounter Progress Notes * Manju Rainey DO - 02/12/2020 11:18 AM CST Images from the original note were not included. [facility] at [address] [address] . . 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 On the basis of her refractory obesity and failure to achieve terminal carman weight loss, she was seen at [facility] at [place], [place]. Weight History: Initial Weight: 320.7 lb. [...] trying to exercise and not eating right [place] body weight: 50.9 kg (112 lb 4.6 [...] you have an unusual work schedule? na Llewellyn Sleepiness Scale total points: 9 Past Medical [...] file Gets together: Not on file Attends faith service: Not on file Active member of [...] 50% of the time was in direct jfaa-gp-[id number] with the patient regarding increased physical activity, reduced caloric intake, healthy diet and behavioral modifications. Manju Rainey DO CC: Jonelle Elam MD H MOVING MACHINE OPERATOR documented in this encounter Plan [...] headaches documented in this encounter Care Teams Camp Housekeeper Relationship Specialty Start Date End Date Jonelle Elam MD [address] [place] [phone] PCP - General Family Medicine 10/24/18 documented as of this encounter
--- OUTSIDE RECORDS SUMMARY | 2024-04-14 20:12 | XMS_ITS | Encounter Summary ---
Author Organization [facility] Address [address] [facility] [place] [address] Care Team Providers Care Wheel Shop Supervisor Name Role Phone Jonelle Elam MD Primary Care Provider [phone] Reason for Visit * Evaluate & Treat (Routine) - Closed Specialty Diagnoses / Procedures Referred By Contac t Referred To Contact Maternal Medicine Diagnoses Obesity complicating , unspecified trimester (HCC) Liver disease, unspecified Fatty (change of) liver, not elsewhere classified Procedures FL FULL ROUT OBSTE CARE,VAGINAL Taurus Amos MD [address] [facility] [place] [address] [facility] [address] [place] [address] Referral ID Status Reason Start Date Expiration Date Visits Re quested Visits Authorized [id number] Closed 06/05/2019 12/02/2019 20 20 Encounter Details Date Type Department Care Team (Latest Contact Info) Description 07/03/2019 11:15 AM CDT - 07/03/2019 11:59 PM CDT Hospital Encounter [facility] Women's Health Maternal & Care [address] [id number] Annette Sauceda MD [address] [address] Discharge Disposition: Home or Self Care Social [...] to check transvaginal cervical length Not getting Benoit--her linoleum mechanic's office never started giving her the medication [...] that was never started by the primary linoleum mechanic.Now too late to start since well after [...] * Assessment & Plan Note - Annette Sacueda MD - 07/03/2019 12:55 PM CDT Associated [...] that was never started by the primary linoleum mechanic.Now too late to start since well after [...] from documented in this encounter Care Teams Wheel Shop Supervisor Relationship Specialty Start Date End Date Jonelle Elam MD [address] [place] [id number] PCP - General Family Medicine 10/24/18 documented as of this encounter
--- OUTSIDE RECORDS SUMMARY | 2024-04-14 20:12 | XMS_ITS | Encounter Summary ---
Author Organization [facility] Address [address] [facility] [place] [address] Care Team Providers Care Thickener Operator Name Role Phone Jonelle Elam MD Primary Care Provider [phone] Reason for Visit * Reason Onset Date Comments Question 08/11/2019 Pt LM re: loosin g mucus plug yesterday. Requesting to get in for a US to make sure everything is ok. Encounter Details Date Type Department Care Team (Late st Contact Info) Description 08/12/2019 Telephone [facility] [place] [facility]'s Health Maternal & Care [address] [place] [address] Ailyn Mendieta RN Question (Pt LM [...] delivery documented in this encounter Care Teams Thickener Operator Relationship Specialty Start Date End Date Jonelle Elam MD [address] [place] [address] PCP - General Family Medicine 10/24/18 documented as of this encounter
--- OUTSIDE RECORDS SUMMARY | 2024-04-14 20:13 | XMS_ITS | Encounter Summary ---
Author Organization [facility] Address [address] [place] [address] Phone Care Team Providers Care Recycle Driver Name Role Phone Vipin Bedoya DO Primary Care Provider [phone] Reason for Visit * Reason Onset Date Comments newneuropt 03/14/2024 Encounter Details Date Type Department Care Team (Late st Contact Info) Description 03/14/2024 Telephone [facility] [place] [facility] Ophthalmology [address] [place], [place] [id number] Clifton Fitzgerald MD [address] [address] newneuropt Social History Tobacco Use Types Packs/Day Years Used Date Smoking Tobacco: Never Smokeless Tobacco: Never Personal Safety Answer Date Recorded Getting School Help Needed Not on file 06/15 Comments Unknown Sex and Gender Information Value Date Recorded Sex Assigned at Not on file Legal Sex Female 9:36 PM DRY CLEANING COUNTER CLERK Gender Identity Not on file Sexual Orientation Not on file documented as of this encounter Miscellaneous Notes * Telephone Encounter - Princess Harmony - 03/14/2024 2:46 PM CST Limited information in notes that are sent over. CLEANING COUNTER CLERK * Telephone Encounter - Dtoty Badillo - 03/14/2024 1:51 PM CST Office note uploaded into [employer]. CLEANING COUNTER CLERK * Telephone Encounter - Dagmar Goldstein - 03/14/2024 9:57 AM CST New Patient Appointment: Is Appointment Scheduled? Yes If yes: Date of Appointment? 05.29 Provider Scheduled with: [facility] If No: Why? N/a Referring doctor: Dr. Parveen Rodriguez Referring Physician Specialty: Photogrammetric Compilation Specialist Referring doctor contact information: [phone] Reason/Diagnoses: optic nerve edema How long has patient been experiencing symptoms?: Appt Needed: Next Available If sooner than next available: Referring provider must specify reason for urgency: n/a Please confirm that you have requested records be faxed. yes Additional comments: CLEANING COUNTER CLERK documented in this encounter Plan of Treatment Not on file documented as of this encounter Visit Diagnoses Not on filedocumented in this encounter Care Teams Recycle Driver Relationship Specialty Start Date End Date Vipin Bedoya DO PCP - General Internal Medicine 10/16/23 documented as of this encounter
--- OUTSIDE RECORDS SUMMARY | 2024-04-14 20:13 | XMS_ITS | Encounter Summary ---
Author Organization [facility] Address [address] [place] [address] Care Team Providers Care Secretary Receptionist Name Role Phone Vipin Bedoya DO Primary Care Provider [phone] Reason for Referral * Diagnostic Imaging (Routine) - Closed Specialty Diagnoses / Procedures Referred By Jackiac t Referred To Contact Diagnoses Renal artery stenosis (HCC) Procedures US Renal Limited Including Duplex Doppler Bilateral Complete (C) [place] [address] [address] [place] [address] Phone: tel: fax: [address] [address] Referral ID Status Reason Start Date Expiration Date Visits Re quested Visits Authorized [id number] Closed 10/03/2023 11/01/2024 1 1 Reason for Visit * Diagnostic Imaging (Routine) - Closed Specialty Diagnoses / Procedures Referred By Contac t Referred To Contact Diagnoses Renal artery stenosis (HCC) Procedures US Renal Limited Including Duplex Doppler Bilateral Complete (C) [place] [address] [address] [address] Phone: tel: fax: [address] [address] Referral ID Status Reason Start Date Expiration Date Visits Re quested Visits Authorized [id number] Closed 10/03/2023 11/01/2024 1 1 Encounter Details Date Type Department Care Team (Latest Contact Info) Description 10/16/2023 9:52 AM CDT - 10/16/2023 11:59 PM CDT Hospital Encounter [facility] Vascular Lab [address] [place] [address] Renal artery stenosis (HCC) Discharge Disposition: Discharge to home or self care Social History Tobacco Use Types Packs/Day Years Used Date Smoking Tobacco: Never Smokeless Tobacco: Never Personal Safety Answer Date Recorded Getting School Help Needed Not on file 06/15 Comments Unknown Sex and Gender Information Value Date Recorded Sex Assigned at Not on file Legal Sex Female 9:36 PM ENGRAVINGS POLISHER Gender Identity Not on file Sexual Orientation [...] artery documented in this encounter Care Teams Secretary Receptionist Relationship Specialty Start Date End Date Vipin Bedoya DO PCP - General Internal Medicine 10/16/23 documented as of this encounter
--- OUTSIDE RECORDS SUMMARY | 2024-04-14 20:13 | XMS_ITS | Encounter Summary ---
Author Organization [facility] Healthcare Address [address] [place] [address] Care Team Providers Care Hair Cutter Name Role Phone Antonette Roy NP Primary Care Provider [phone] Reason for Referral * Diagnostic Imaging (Routine) - Closed Specialty Diagnoses / Procedures Referred By Contac t Referred To Contact Diagnoses Pain in left leg Pain in right leg Procedures [place] [address] [address] [facility] [address] [place] [id number] Phone: tel: fax: [address] [address] Referral ID Status Reason Start Date Expiration Date Visits Re quested Visits Authorized [id number] Closed 10/03/2023 11/01/2024 1 1 Reason for Visit * Diagnostic Imaging (Routine) - Closed Specialty Diagnoses / Procedures Referred By Contac t Referred To Contact Diagnoses Pain in left leg Pain in right leg Procedures [place] [address] [address] [facility] [address] [address] Phone: tel: fax: [address] [address] Referral ID Status Reason Start Date Expiration Date Visits Re quested Visits Authorized [id number] Closed 10/03/2023 11/01/2024 1 1 Encounter Details Date Type Department Care Team (Latest Contact Info) Description 10/11/2023 7:46 AM CDT - 10/11/2023 11:59 PM CDT Hospital Encounter [facility] Vascular Lab [address] [id number] Pain in left leg; Pain in right leg Discharge Disposition: Discharge to home or self care Social History Tobacco Use Types Packs/Day Years Used Date Smoking Tobacco: Never Assessed Personal Safety Answer Date Recorded Getting School Help Needed Not on file 06/15 Comments Unknown Sex and Gender Information Value Date Recorded Sex Assigned at Not on file Legal Sex Female 9:36 PM ROTARY RIG ENGINE OPERATOR Gender Identity Not on file Sexual [...] by: Terri Goel M.D. Loco Hansen MD [facility] PROCEDURES Final Resu lt documented in this encounter Visit Diagnoses Diagnosis Pain in left leg Pain in right leg documented in this encounter Care Teams Hair Cutter Relationship Specialty Start Date End Date Antonette Roy NP PCP - General Internal Medicine 10/29/20 10/15/23 documented as of this encounter
--- OUTSIDE RECORDS SUMMARY | 2024-04-14 20:13 | XMS_ITS | Referral Summary ---
Author Organization [facility] Medical Office Building B Address [address] [place] [address] Care Team Providers Care Lithograph Operator Name Role Phone Vipin Bedoya DO Primary Care Provider [phone] Encounters Date Type Department Care Team Description 03/14/2024 Telephone [facility] Ophthalmology [address] [place] [address] Clifton Fitzgerald MD newneuropt from Last 3 [...] and anxiety disorder. 4. Ongoing assessment at [facility] visits. Last Assessment & Plan: Condition: stable Follow up in: if symptoms worsen or fail to improve Cataracts, bilateral 01/02/2019 Overview (10/16/2023): Has artificial lens in left eye Last Assessment & Plan: Having decreased nighttime vision Maternal Medicine recommendations: 1. recommend follow-up with meeting manager GERD (gastroesophageal reflux disease) 9 Overview [...] testing every trimester--to be ordered by primary director of field coordination, please send copy of recent results. 2. Follow up with GI as recommended in fall for repeat MRI and fibroscan. Hyperlipidemia 05/08/2017 Lumbar herniated disc 04/03/2014 Overview (10/16/2023): Last Assessment & Plan: Remains bothersome with use of maternity support belt. Denies any falls. Has PT referral and has not made appointment. Swimming with some relief. [facility] Plan: 1. Again encouraged to reach [...] on file Legal Sex Female 9:36 PM RN FAMILY Gender Identity Not on file Sexual Orientation [...] Plan of Treatment Not on file Insurance [facility] CIGNA CIGNA Care Teams Lithograph Operator Relationship Specialty Start Date End Date Vipin Bedoya DO PCP - General Internal Medicine 10/16/23
--- OUTSIDE RECORDS SUMMARY | 2024-04-14 20:13 | XMS_ITS | Encounter Summary ---
Author Organization [facility] Address [address] [place] [address] Phone Care Team Providers Care Utility Manager Name Role Phone Antonette Roy NP Primary Care Provider [phone] Reason for Referral * Diagnostic Imaging (Routine) - Closed Specialty Diagnoses / Procedures Referred By Contac t Referred To Contact Diagnoses Renal artery stenosis (HCC) Procedures US Renal Limited Including Duplex Doppler Bilateral Complete (C) [place] [address] [address] [facility] [address] [place] [address] Phone: tel: fax: [address] [phone] Referral ID Status Reason Start Date Expiration Date Visits Re quested Visits Authorized [id number] Closed 10/03/2023 11/01/2024 1 1 * Diagnostic Imaging (Routine) - Closed Specialty Diagnoses / Procedures Referred By Contac t Referred To Contact Diagnoses Pain in left leg Pain in right leg Procedures [place] [address] [address] [facility] 1 [place] [address] Phone: tel: fax: [address] [address] Referral ID Status Reason Start Date Expiration Date Visits Re quested Visits Authorized [id number] Closed 10/03/2023 11/01/2024 1 1 * Diagnostic Imaging (Routine) - Closed Specialty Diagnoses / Procedures Referred By Ritika t Referred To Contact Diagnoses Pain in left leg Pain in right leg [place] [address] [address] [address] Phone: tel: fax: [address] [phone] Referral ID Status Reason Start Date Expiration Date Visits Re quested Visits Authorized [id number] Closed 10/03/2023 11/01/2024 1 1 Encounter Details Date Type Department Care Team (Late st Contact Info) Description 10/03/2023 Orders Only [facility] Surgery [address] [place] [address] Medical Office Building [address] [place] [address] [place] [address] [address] [facility] [address] [place] [address] Pain in left leg (Primary Dx); Pain in right leg; Renal artery stenosis (HCC) Social History Tobacco Use Types Packs/Day Years Used Date Smoking Tobacco: Never Assessed Personal Safety Answer Date Recorded Getting School Help Needed Not on file 06/15 Comments Unknown Sex and Gender Information Value Date Recorded Sex Assigned at Not on file Legal Sex Female 9:36 PM HOME SERVICE CONSULTANT Gender Identity Not on file Sexual Orientation [...] by: Sergio Araya MD Loco Hansen MD [facility] PROCEDURES Final Resu lt documented in this encounter Visit Diagnoses Diagnosis Pain in left leg- Primary Pain in right leg Renal artery stenosis (HCC) Atherosclerosis of renal artery Pain in left leg Pain in right leg Pain in left leg Pain in right leg Renal artery stenosis (HCC) Atherosclerosis of renal artery documented in this encounter Care Teams Utility Manager Relationship Specialty Start Date End Date Antonette Roy NP PCP - General Internal Medicine 10/29/20 10/15/23 documented as of this encounter
--- OUTSIDE RECORDS SUMMARY | 2024-04-14 20:13 | XMS_ITS | Encounter Summary ---
Author Organization [facility] Address [address] [place] [address] Phone Care Team Providers Care Urban Redevelopment Specialist Name Role Phone Vipin Bedoya DO Primary Care Provider [phone] Reason for Referral * MRI/CAT/PET Scan (Routine) - Closed Specialty Diagnoses / Procedures Referred By Ritika bonner Referred To Contact Radiology Diagnoses Venous insufficiency S/P insertion of iliac artery stent Procedures [place] [address] [address] [facility] [address] [place] [id number] Phone: tel: fax: [address] [address] Referral ID Status Reason Start Date Expiration Date Visits Re quested Visits Authorized [id number] Closed 10/16/2023 04/13/2024 1 1 Reason for Visit * Consultation (Routine) - Authorized Specialty Diagnoses / Procedures Referred By Ritika bonner Referred To Contact Vascular Surgery Diagnoses Venous insufficiency Atherosclerosis of renal artery (HCC) Vipin Bedoya DO Phone: tel: fax: [place] [address] [address], [place] [address] Phone: tel: fax: Referral ID Status Reason Start Date Expiration Date Visits Requested Visits Authorized [id number] Authorized Specialty Services Required 09/28/2023 10/27/2024 12 12 Encounter Details Date Type Department Care Team (Late st Contact Info) Description 10/16/2023 11:30 AM CDT Office Visit [facility] Surgery [address] [facility] Medical Office Building [address] [address] [place] [address] [facility] [address], [place] [address] Varicose veins of lower extremity [...] on file Legal Sex Female 9:36 PM INTELLIGENCE CLERK Gender Identity Not on file Sexual [...] Use: Not At Risk (12/23/2019) Received from [employer] Frequency of Alcohol Consumption: Never Average [...] 10/16/19 documented in this encounter Care Teams Urban Redevelopment Specialist Relationship Specialty Start Date End Date Vipin Bedoya DO PCP - General Internal Medicine 10/16/23 documented as of this encounter
--- OUTSIDE RECORDS SUMMARY | 2024-04-14 20:13 | XMS_ITS | Clinical Summary ---
Author Organization [facility] Medical Office Building B Address [address] [place] [address] Care Team Providers Care Construction Project Administrator Name Role Phone Vipin Bedoya DO Primary Care Provider [phone] Allergies Active Allergy Reactions Criticality Noted Date [...] and anxiety disorder. 4. Ongoing assessment at [facility] visits. Last Assessment & Plan: Condition: stable Follow up in: if symptoms worsen or fail to improve Cataracts, bilateral 01/02/2019 Overview (10/16/2023): Has artificial lens in left eye Last Assessment & Plan: Having decreased nighttime vision Maternal Medicine recommendations: 1. recommend follow-up with supervisor scenic arts GERD (gastroesophageal reflux disease) 9 Overview (10/16/2023): [...] testing every trimester--to be ordered by primary plant biology professor, please send copy of recent results. 2. Follow up with GI as recommended in fall for repeat MRI and fibroscan. Hyperlipidemia 05/08/2017 Lumbar herniated disc 04/03/2014 Overview (10/16/2023): Last Assessment & Plan: Remains bothersome with use of maternity support belt. Denies any falls. Has PT referral and has not made appointment. Swimming with some relief. [facility] Plan: 1. Again encouraged to reach out to physical therapy, she assures me she has the order form at home. Uses intrauterine device for control 10/21 Depressive disorder 05/21/2012 Encounters Date Type Department Care Team Description 03/14/2024 Telephone [facility] Ophthalmology [address] [place] [address] Clifton Fitzgerald MD newneuropt from Last 3 Months Social History Tobacco Use Types Packs/Day Years Used Date Smoking Tobacco: Never Smokeless Tobacco: Never Tobacco Cessation:Counseling Given: Not Answered Personal Safety Answer Date Recorded Getting School Help Needed Not on file 06/15 Comments Unknown Sex and Gender Information Value Date Recorded Sex Assigned at Not on file Legal Sex Female 9:36 PM SWITCHBOARD OPERATOR RECEPTIONIST Gender Identity Not on file Sexual Orientation [...] HPV Vaccines Completed 01/08/2008, 02/01, 11/27/2006 Insurance [facility] CIGNA CIGNA Care Teams Construction Project Administrator Relationship Specialty Start Date End Date Vipin Bedoya DO PCP - General Internal Medicine 10/16/23
--- OUTSIDE RECORDS SUMMARY | 2024-04-14 20:13 | XMS_ITS | Encounter Summary ---
Author Organization [facility] Healthcare Address [address] [place] [address] Care Team Providers Care Job Counselor Name Role Phone Antonette Roy NP Primary Care Provider [phone] Reason for Referral * Diagnostic Imaging (Routine) - Closed Specialty Diagnoses / Procedures Referred By Contac t Referred To Contact Diagnoses Pain in left leg Pain in [place] [address] [address] [place] [address] Phone: tel: fax: [address] [phone] Referral ID Status Reason Start Date Expiration Date Visits Re quested Visits Authorized [id number] Closed 10/03/2023 11/01/2024 1 1 Reason for Visit * Diagnostic Imaging (Routine) - Closed Specialty Diagnoses / Procedures Referred By Contac t Referred To Contact Diagnoses Pain in left leg Pain in [place] [address] [address] [address] Phone: tel: fax: [address] [address] Referral ID Status Reason Start Date Expiration Date Visits Re quested Visits Authorized [id number] Closed 10/03/2023 11/01/2024 1 1 Encounter Details Date Type Department Care Team (Latest Contact Info) Description 10/11/2023 8:02 AM CDT - 10/11/2023 11:59 PM CDT Hospital Encounter [facility] Vascular Lab [address] [id number] Pain in left leg; Pain in right leg Discharge Disposition: Discharge to home or self care Social History Tobacco Use Types Packs/Day Years Used Date Smoking Tobacco: Never Assessed Personal Safety Answer Date Recorded Getting School Help Needed Not on file 06/15 Comments Unknown Sex and Gender Information Value Date Recorded Sex Assigned at Not on file Legal Sex Female 9:36 PM DISTRIBUTING CLERK Gender Identity Not on file Sexual [...] leg documented in this encounter Care Teams Job Counselor Relationship Specialty Start Date End Date Antonette Roy NP PCP - General Internal Medicine 10/29/20 10/15/23 documented as of this encounter
--- OUTSIDE RECORDS SUMMARY | 2024-04-14 20:13 | XMS_ITS | Encounter Summary ---
Author Organization [facility] Address [address] [place] [address] Phone Care Team Providers Care Rotary Planer Set Up Operator Name Role Phone Antonette Roy NP Primary Care Provider [phone] Vipin Bedoya DO Primary Care Provider [phone] Reason for Visit * Reason Onset Date Comments neuro appointment 10/09/2023 Encounter Details Date Type Department Care Team (Late st Contact Info) Description 10/09/2023 Telephone [facility] Ophthalmology [address] [place], [place] [id number] Emma Bates MD [address] [id number] neuro appointment Social History Tobacco Use Types Packs/Day Years Used Date Smoking Tobacco: Never Assessed Personal Safety Answer Date Recorded Getting School Help Needed Not on file 06/15 Comments Unknown Sex and Gender Information Value Date Recorded Sex Assigned at Not on file Legal Sex Female 9:36 PM DIRECTOR VIDEO Gender Identity Not on file Sexual Orientation Not on file documented as of this encounter Miscellaneous Notes * Telephone Encounter - Karrie Sewell - 10/27/2023 10:55 AM CDT RECORDS FROM [facility] NEUROLOGY UPLOADED INTO CHART FOR REVIEW [...] status of neuro op appointment. Records in [facility]. Pt#[phone] documented in this encounter Plan of Treatment Not on file documented as of this encounter Visit Diagnoses Not on filedocumented in this encounter Care Teams Rotary Planer Set Up Operator Relationship Specialty Start Date End Date Antonette Roy NP PCP - General Internal Medicine 10/29/20 10/15/23 Vipin Bedoya DO PCP - General Internal Medicine 10/16/23 documented as of this encounter
== END 2024-04-08 12:49 | disposition home or self-care (01) ==
PROVIDERS: Emergency Provider Physician Assistant; PCP Internal Medicine
DX: J10.1 Influenza due to other identified influenza virus with other respiratory manifestations (principal); Z20.822 Contact with and (suspected) exposure to COVID-19; J45.909 Unspecified asthma, uncomplicated; I10 Essential (primary) hypertension; E78.00 Pure hypercholesterolemia, unspecified; K21.9 Gastro-esophageal reflux disease without esophagitis; Z86.2 Personal history of diseases of the blood and blood-forming organs and certain disorders involving the immune mechanism; Z77.22 Contact with and (suspected) exposure to environmental tobacco smoke (acute) (chronic); Z79.82 Long term (current) use of aspirin; Z79.899 Other long term (current) drug therapy
CPT/HCPCS: 87637; 87651; 99283

== ENCOUNTER 2025-01-03 16:02 | Emergency (ER) | payer OTHER, SELFPAY ==
--- OUTSIDE RECORDS SUMMARY | 2007-03-22 08:15 | XMS_ITS | Continuity of Care Document ---
Author Organization [facility] Address [address] [place] [address] [address] [place] [address] Phone Care Team Providers Care Alarm Signal Operator Name Role Phone Stefanie Ba Unavailable Unavailable Procedures Procedure Date Eye Exam & Treatment Eye Exam Established Pt Visual Field Examination(s) Office/outpatient Visit, [facility] Advance Directives Directive Yes / No Effective Date File Name No Information Encounters Encounter Description Practice Location Reason(s) For Visit Diagnoses Date Provider Providers Copied on Encounter [facility], [address] [facility], [place], [place], [id number], tel:[phone] SEC [facility] No Information 0200 7 Jesenia Stefanie. [address] [facility] [address] , [address], [place], [address], [place]. tel:[phone] Referring Provider: Arianna Unger OD, [facility] [address] [place], [address]. tel:[phone] [facility], [address], [place], [place], [address], tel:[phone] SEC [facility] No Information 9-200 7 Jesenia Stefanie. [address] [facility] [address] , [address], [place], [address], [place]. tel:[phone] Referring Provider: Arianna Unger OD, [facility] [address] [place], [address]. tel:[phone] [facility], [address] [place] [address] [address], [place], [place], [address], tel:[phone] SEC [facility] No Information Apr-0 4-200 7 Ba Stefanie. [address], [place], [place], [facility], [place]. tel:[phone] Referring Provider: Arianna Unger OD, [facility] [address] [place], [address]. tel:[phone] Office/outpat ient Visit, [facility], [address] [place] [address] [address], [place], [place], [id number], tel:[phone] [facility] No Information Mar-2 2-200 7 Ba Stefanie. [address] , [address], [place], [place], [facility], [place]. tel:[phone] Referring Provider: Arianna Unger OD, [facility] [address] [place], [address]. tel:[phone] Family History Family Member Type Diagnosis Age At Onset No Information Payers Payer name Insurance type Covered democrat ID Danilo stevens(s) Medicaid [facility] [id number] Social History Type Description Quantity Date Captured Comments Sex Female Smoking Status No Information Chief Complaint And Reason For Visit No Information Reason For Referral Reason For Referral No Information History Of Present Illness Encounter Date Complaint History Of Prese nt Illness No Information Functional Status Date Functional Assessmen t No Information Instructions Date Instruction Additional Infor mation No Information Assessments Type Assessment Date No Information Patient Care Teams Name Effective Dates (start - stop) Status Members No Information
--- OUTSIDE RECORDS SUMMARY | 2007-03-22 08:15 | XMS_ITS | Continuity of Care Document ---
Author Organization [facility] Address [address] [place] [address] [address] [place] [address] Phone Care Team Providers Care Quality Assurance Lab Technician Name Role Phone Stefanie Ba Unavailable Unavailable Procedures Procedure Date Eye Exam & Treatment Eye Exam Established Pt Visual Field Examination(s) Office/outpatient Visit, [facility] Advance Directives Directive Yes / No Effective Date File Name No Information Encounters Encounter Description Practice Location Reason(s) For Visit Diagnoses Date Provider Providers Copied on Encounter [facility], [address] [facility] [address], [place], [place], [id number], tel:[phone] SEC [facility] No Information 0200 7 Jesenia Stefanie. [address] [facility] , [address], [place], [address], [place]. tel:[phone] Referring Provider: Arianna Unger OD, [facility] [address] [place], [address]. tel:[phone] [facility], [address], [place], [place], [address], tel:[phone] SEC [facility] No Information 9-200 7 Jesenia Stefanie. [address] [facility] , [address], [place], [address], [place]. tel:[phone] Referring Provider: Arianna Unger OD, [facility] [address] [place], [address]. tel:[phone] [facility], [address] [place] [address] [address], [place], [place], [id number], tel:[phone] [facility] No Information Apr-0 4-200 7 Ba Stefanie. [address], [place], [place], [facility], [place]. tel:[phone] Referring Provider: Arianna Unger OD, [facility] [address] [place], [address]. tel:[phone] Office/outpat ient Visit, [facility], [address] [place] [address] [address], [place], [place], [address], tel:[phone] [facility] No Information Mar-2 2-200 7 Ba Stefanie. [address], [place], [place], [facility], [place]. tel:[phone] Referring Provider: Arianna Unger OD, [facility] [address] [place], [address]. tel:[phone] Family History Family Member Type Diagnosis Age At Onset No Information Payers Payer name Insurance type Covered green party ID Danilo stevens(s) Medicaid [facility] [id number] Social History Type Description Quantity Date Captured [...]
--- NOTE | ~2025-01-03 | XR_ITS ---
EXAMINATION: XR chest 2V, 01/03/2025 16:40 CDT HISTORY: CHEST PAIN, ELEVATED BP COMPARISON: No comparisons available. Technique: 2 views obtained. Findings: The lungs are clear, no effusion. No pneumothorax. Heart is normal size. Mediastinal and hilar contours are within normal limits. Bony thorax no acute abnormality. Impression: No acute cardiopulmonary abnormality. Reviewed, dictated and finalized at location P. Impression: No acute cardiopulmonary abnormality.
--- OUTSIDE RECORDS SUMMARY | 2025-01-03 16:06 | XMS_ITS | Encounter Summary ---
Author Organization [facility] Address [address] [place] [address] Phone Care Team Providers Care Feed Crusher Operator Name Role Phone Jonelle Elam MD Primary Care Provider + Vipin Bedoya DO Primary Care Provider Encounter Details Date Type Department Care Team (Latest Contact Info) Description 04/30/2020 Transcribe Orders [facility] Admitting [address] [place] [address] Maribel Kitchen MD [address] [facility] [address] [place] [address] Liver lesion (Primary Dx); Focal nodular hyperplasia [...] on file Legal Sex Female 10:30 PM HIGH SCHOOL SOCIAL SCIENCE TEACHER Gender Identity Not on file Sexual Orientation Not on file COVID-19 Exposure Response Date Recorded In the last month, have you been in contact with someone who was confirmed or suspected to have Coronavirus / COVID-19? No / Unsure 05/01/2020 4:12 PM HIGH SCHOOL SOCIAL SCIENCE TEACHER documented as of this encounter Plan of Treatment Not on file documented as of this encounter Results * HEPATIC FUNCTION PANEL (05/01/2020 4:25 PM HIGH SCHOOL SOCIAL SCIENCE TEACHER) T BILI 0.4 <=1.2 mg/dL 05/01/2020 4:56 PM HIGH SCHOOL SOCIAL SCIENCE TEACHER [facility] BILIRUBIN,DIRECT <0.3 <=0.3 mg/dL 05/01/2020 4:56 PM HIGH SCHOOL SOCIAL SCIENCE TEACHER [facility] ALKALINE PHOSPHATASE 70 35 - 105 U/L 05/01/2020 4:56 PM HIGH SCHOOL SOCIAL SCIENCE TEACHER [facility] SGOT (AST) 23 <=32 U/L 05/01/2020 4:56 PM HIGH SCHOOL SOCIAL SCIENCE TEACHER [facility] SGPT (ALT) 32 <=41 U/L 05/01/2020 4:56 PM HIGH SCHOOL SOCIAL SCIENCE TEACHER [facility] TOTAL PROTEIN 7.0 6.0 - 8.3 g/dL 05/01/2020 4:56 PM HIGH SCHOOL SOCIAL SCIENCE TEACHER [facility] ALBUMIN 4.4 3.5 - 5.2 g/dL 05/01/2020 4:56 PM HIGH SCHOOL SOCIAL SCIENCE TEACHER [facility] Comment: The colormetric methods used for the determination of Albumin may lead to falsely elevated test results in patients suffering from renal failure or insufficiency due to interference with other proteins. Blood Venipuncture / Unknown 05/01/2020 4:25 PM HIGH SCHOOL SOCIAL SCIENCE TEACHER 05/01/2020 4:32 PM HIGH SCHOOL SOCIAL SCIENCE TEACHER us Maribel Kitchen MD CHEMISTRY ORDERABLES Final Re sult [facility] [address] [place] [address] documented in this encounter Visit Diagnoses Diagnosis Liver lesion- Primary Other specified disorders of liver Focal nodular hyperplasia determined by liver biopsy NAFLD (nonalcoholic fatty liver disease) Other chronic nonalcoholic liver disease Morbid obesity documented in this encounter Additional Health Concerns Infection Onset Date Last Indicated Resolved Time COVID - 19 Confirmed 05/04/2020 05/04/2020 021 12:18 AM HIGH SCHOOL SOCIAL SCIENCE TEACHER documented as of this encounter Care Teams Feed Crusher Operator Relationship Specialty Start Date End Date Jonelle Elam MD [address] [place] [address] PCP - General Family Medicine 02/22/15 05/06/24 Vipin Bedoya DO [address] [place] [address] [place] [address] PCP - General Internal Medicine 05/07/24 documented as of this encounter
--- OUTSIDE RECORDS SUMMARY | 2025-01-03 16:06 | XMS_ITS | Clinical Summary ---
Author Organization [facility] Address [address] [place] [address] Phone Care Team Providers Care Juvenile Corrections Officer Name Role Phone Vipin Bedoya DO Primary Care Provider Allergies Active Allergy Reactions Criticality Noted Date [...] on file Legal Sex Female 10:30 PM RUM PROCESSING OPERATOR Gender Identity Not on file Sexual Orientation Not on file Last Filed Vital Signs Vital Sign Reading Time Taken Comments Blood Pressure 170/90 05/07/2024 8:00 PM RUM PROCESSING OPERATOR Pulse 75 05/07/2024 8:00 PM RUM PROCESSING OPERATOR Temperature 37 C (98.6 F) 05/07/2024 8:00 PM RUM PROCESSING OPERATOR Respiratory Rate 18 05/07/2024 8:00 PM RUM PROCESSING OPERATOR Oxygen Saturation 100% 05/07/2024 8:00 PM RUM PROCESSING OPERATOR Inhaled Oxygen Concentration - - Weight 122.5 kg (270 lb) 05/07/2024 7:11 PM RUM PROCESSING OPERATOR Height 157.5 cm (5' 2) 05/07/2024 7:11 PM RUM PROCESSING OPERATOR Body Mass Index 49.38 05/07/2024 7:11 PM RUM PROCESSING OPERATOR Plan of Treatment Health Maintenance Due Date Last Done Comments Pap Smear 11/08/2015 Cervical Cancer Screening (CCS) 2024 HPV/Cotest 2024 Influenza Immunization (#1) 2024 09/3 , 01/03/2019, 01/26/2018, Additional history exists SARS-COV-2 Immunization ( season) 2024 02/04/2021 Respiratory Syncytial Virus (RSV) Immunization (Adult) (1 - 1-dose 75+ series) 2069 Hepatitis B Immunization Completed 996, 1994, 1994 Human Papillomavirus (HPV) Immunization Completed 01/08/2008, 02/12/2007, 11/27/2006 Meningococcal Immunization (ACWY) Aged Out 10/27/2008 No longer eligible based on patient's age to complete this topic Hepatitis C Virus (HCV) Screening Completed 01/02/2019, 10/12/2018 DTaP/Tdap/Td Immunization Discontinued 2019, 08/01/2018, 10/27/2008, [...] DETECTED NON DETECTED 10/12/2018 9:44 PM CDT [facility] Comment: IGM Antibodies to HAV not detected. Does not exclude early acute or recovered HAV infection. HEP B CORE AB (IGM) NON DETECTED NON DETECTED 10/12/2018 9:44 PM CDT [facility] Comment: IGM anti-HBC not detected. Does not exclude the possibility of exposure to or infection with HBV. HEPATITIS B SURFACE ANTIGEN NON DETECTED NON DETECTED 10/12/2018 9:44 PM CDT [facility] Comment: A nonreactive test result does not [...] 0.07 <1 S/CO 10/12/2018 9:44 PM CDT [facility] Comment: Signal/Cutoff ratio < 0.79 is Nondetected Signal/Cutoff ratio 0.80-0.99 is Grayzone Signal/Cutoff ratio > 0.99 is Detected Supplemental assays are recommended if signal/cutoff ratio is >/=1.00. Signal/cutoff ratio result >/= 5.00 is 97% predictive of positivity for recombinant immunoblot assay (RIBA) and will be reported to the [place] Department of Public Health as required. Blood specimen (specimen) Venipuncture / Unknown 10/12/2018 9:56 AM CDT 10/12/2018 11:20 AM CDT us Charles Amezcua MD HEMATOLOGY ORDERABLES F inal Result [facility] [address] [place] [address], from Last 3 Months or Most Recently Relevant to Health Maintenance Insurance [facility] Care Teams Juvenile Corrections Officer Relationship Specialty Start Date End Date Vipin Bedoya DO [facility] [place] [address] PCP - General Internal Medicine 05/07/24
--- OUTSIDE RECORDS SUMMARY | 2025-01-03 16:06 | XMS_ITS | Encounter Summary ---
Author Organization [facility] Address [address] [place] [address] Care Team Providers Care Administrative Appeals Tribunal Member Name Role Phone Jonelle Elam MD Primary Care Provider [phone] Manju Rainey DO Unavailable Skylar Canales PA-C Unavailable Encounter Details Date Type Department Care Team (Late st Contact Info) Description 01/08/2019 Telephone [facility] IVR [address] [place] [id number] Arianna Lane RN Social History Tobacco Use Types Packs/Day Years Used Date Smoking Tobacco: Never Assessed Comments Unknown Sex and Gender Information Value Date Recorded Sex Assigned at Not on file Legal Sex Female 12:18 PM CDT Gender Identity Not on file Sexual Orientation Not on file documented as of this encounter Progress Notes * Arianna Lane RN - 01/08/2019 1:22 PM CDT Spoke with pt attempting to get previous MRI records; called both hospitals pt said it could have been done at, but neither hospital ([place] or [place]) has record of MRI there. Advised pt we wouldbe calling her to schedule a new MRI, pt understands and is ok with this. documented in this encounter Plan of Treatment Not on file documented as of this encounter Visit Diagnoses Not on filedocumented in this encounter Care Teams Administrative Appeals Tribunal Member Relationship Specialty Start Date End Date Jonelle Elam MD [address] [place] [id number] PCP - General Family Medicine 10/24/18 Manju Rainey DO [address] [place] [address] Bariatrics 08/11/20 Skylar Canales PA-C [address] [facility] [address] [facility] [place] [id number] Physician Certified Nurse Nephrology 03/04/22 documented as of this encounter
--- OUTSIDE RECORDS SUMMARY | 2025-01-03 16:06 | XMS_ITS | Clinical Summary ---
Author Organization [facility] Address [address] [place] [address] Care Team Providers Care Boot Liner Maker Name Role Phone Jonelle Elam MD Primary Care Provider [phone] Manju Rainey DO Unavailable [phone] Skylar Canales PA-C Unavailable [phone] Source Comments [facility],non-owned Affiliates and Associated Physician Practices is amultiple site organization consisting of ambulatory clinics and hospital sitesin [place], [place], [place] and [place]. This disclosure is being madepursuant to the Care Everywhere program and may not contain all information available regarding this patient. Last updated 17.[facility] Allergies Active Allergy Reactions Criticality Noted [...] document. Alwaysverify current medications with the patient. vitamin D, cholecalciferol, 50 MCG (1999) tablet Take 1 (one) tablet by mouth once daily Active Iron, Ferrous Sulfate, 325 (65 Fe) MG TABS Take by mouth once daily Active PARAGARD INTRAUTERINE COPPER IU Active omeprazole (PriLOSEC) 20 MG capsule Take 1 (one) capsule by mouth once daily as needed 2 Active fluticasone-salme terol (Advair/Wixela) 100-50 MCG/ACT inhaler Inhale 1 (one) puff by mouth 2 times daily Rinse mouth/throat well and spit after use. 60 Each 3 2 Active amLODIPine (Norvasc) 10 MG tablet Take 1 (one) tablet by mouth once daily 2 Active losartan (Cozaar) 100 MG tablet Take 1 (one) tablet by mouth once daily 2 Active furosemide (Lasix) 40 MG tablet Take 1 (one) tablet by mouth every morning 2 Active metoprolol tartrate IR (Lopressor) 50 MG tablet Take 1 (one) tablet by mouth 2 times daily 2 Active Multiple Vitamins-Minerals (Womens Multivitamin) TABS Take 1 tablet by mouth once daily Active zonisamide (Zonegran) 25 MG capsuleIndication s:Intractable migraine with aura with status migrainosus Take 1 (one) capsule by mouth once daily 30 capsule 11 3 Active gabapentin (Neurontin) 100 MG capsuleIndication s:Intractable migraine with aura with status migrainosus,MOOSE (obstructive sleep apnea) Take 1 (one) capsule by mouth 3 times daily 270 capsule 3 3 Active aspirin (Aspirin) 81 MG chew tablet Take 1 (one) tablet by mouth once daily 3 Active clopidogrel (plaVIX) 75 MG tablet Take 1 (one) tablet by mouth once daily 3 Active Trulicity 0.75 MG/0.5ML injection ADMINISTER 0.75 MG UNDER THE SKIN EVERY WEEK 3 Active DULoxetine (Cymbalta) 20 MG capsule Take 1 (one) capsule by mouth once daily 3 Active cyanocobalamin (Vitamin B-12) 1000 MCG tablet Take 1 (one) tablet by mouth once daily Active spironolactone (Aldactone) 25 MG tablet Take 1 (one) tablet by mouth once daily APPT NEEDED CALL [phone] X 1 TO SCHEDULE 90 tablet 3 Active Active Problems Problem Noted Date [...] due to NAEFD. Headaches have not worsened. [facility] Plan: 1. Reviewed headaches and if there is change to her current headache pattern, worsening, or persistent, she should be seen promptly for preeclampsia evaluation. 2. Start Riboflavin, increase fluid intake. Assessment & Plan (08/14/2019 4:27 PM CDT): Has not been able to pickling solution maker riboflavin from her pharmacy. Maternal Medicine recommendations: 1. encouraged to look for an [id number] vitamin-B complex Assessment & Plan (07/03/2019 12:54 PM CDT): Intermittent headaches. Maternal Medicine recommendations: 1. reminded that she has a prescription for riboflavin for headache prevention Assessment & Plan (06/05/2019 5:54 PM INDUSTRIAL TECH INSTRUCTOR): May be related to poor vision. Maternal Medicine recommendations: 1. should maintain follow-up with olericulture professor 2. Riboflavin prescribed for headache prevention Cataracts, bilateral 01/02/2019 Overview (06/05/2019): Has artificial lens in left eye Assessment & Plan (06/05/2019 1:27 PM INDUSTRIAL TECH INSTRUCTOR): Having decreased nighttime vision Maternal Medicine recommendations: 1. recommend follow-up with olericulture professor NAFLD (nonalcoholic fatty liver disease) 019 Overview [...] testing every trimester--to be ordered by primary horse shoer, please send copy of recent results. 2. Follow up with GI as recommended in fall for repeat MRI and fibroscan. Assessment & Plan (08/14/2019 4:26 PM CDT): Remains at risk for complications of related to pre-existing liver disease and suspected chronic hypertension. Maternal Medicine recommendations: 1. Serial liver function testing every trimester--to be ordered by primary horse shoer 2. please forward a copy of the glucose challenge test results Assessment & Plan (06/05/2019 5:50 PM INDUSTRIAL TECH INSTRUCTOR): Unremarkable LFTs. Remains at risk for complications of related to pre-existing liver disease and suspected chronic hypertension. Maternal Medicine recommendations: 1. Serial liver function testing every trimester--to be ordered by primary horse shoer GERD (gastroesophageal reflux disease) 9 Lumbar herniated disc 04/03/2014 Assessment & Plan (08/28/2019 12:41 PM CDT): Remains bothersome with use of maternity support belt. Denies any falls. Has PT referral and has not made appointment. Swimming with some relief. [facility] Plan: 1. Again encouraged to reach [...] belt Assessment & Plan (06/05/2019 5:49 PM INDUSTRIAL TECH INSTRUCTOR): Having significant pain at night after exercise [...] fiber Assessment & Plan (06/05/2019 5:41 PM INDUSTRIAL TECH INSTRUCTOR): Maternal Medicine recommendations: 1. nutrition counseling--initiated today 2. Encouraged to increase dietary fiber Sleep apnea Overview (06/05/2019): Has not had a sleep study Assessment & Plan (08/14/2019 4:25 PM CDT): Previously instructed to have evaluation for sleep apnea Assessment & Plan (06/05/2019 5:49 PM INDUSTRIAL TECH INSTRUCTOR): instructed to have evaluation for sleep apnea Immunizations Immunization Administration Dates Next Due DTaP VACCINE IM (6wk-6yrs) 10/07/1999,03/07/1996 FLU VACCINE QUAD IIV4 SPLIT 0.25 ML IM 6 FLU VACCINE TRI IIV3 SPLIT P F IM (FLUVIRIN) 01/30/2013 HEP B VACCINE, PED/ADOL 09/14/1995,1994, HIB-PRP-OMP 3 DOSE 03/07/1996 Human Papilloma Virus Jocy valent Vaccine 01/08/2008,02/12/2007,11/27/2006 INFLUENZA VACCINE, QUADR. (F LUZONE; FLULAVAL; FLUARIX; AFLURIA QUADRIVALENT; 6MO+), 0.5 ML (IIV4) 01/01/2020,01/03/2019,01/26/2018,03/15,03/06/2015,02/18/2014 MENINGOCOCCAL ACWY (MCV4P) VAC IM 10/27/2008 MMR 08/02/2018,10/07/1999,12/07/1995 POLIO IPV 10/07/1999 POLIO [...] have received? 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 Not on file Not on file Not on file Last Filed Vital Signs Vital Sign Reading Time Taken Comments Blood Pressure 125/71 08/19/2022 9:23 AM CDT Pulse 75 08/19/2022 9:23 AM CDT Temperature 36.7 C (98 F) 08/19/2022 9:23 AM CDT Respiratory Rate 18 08/19/2022 9:23 AM CDT Oxygen Saturation 100% 08/19/2022 9:23 AM CDT Inhaled Oxygen Concentration - - Weight 150.1 kg (331 lb) 08/19/2022 9:23 AM CDT Height 157.5 cm (5' 2.01) 07/20/2022 10:12 AM C DT Body Mass Index 60.53 07/20/2022 10:12 AM CDT Plan of Treatment Health Maintenance Due Date Last Done Comments HIV SCREENING 2009 DEPRESSION SCREENING 04/03/2024 COVID-19 VACCINE ( season) 2024 02/04/2021 INFLUENZA VACCINE (#1) 2024 , 01/03/2019, 01/26/2018, Additional history exists PAP SMEAR 09/24/2026 09/25/2023, 04/13/2022 DTAP/TDAP/TD VACCINES (5 - Td or Tdap) 08/01/2028 08/01/2018, 10/27/2008, 10/07/1999, Additional history exists ZOSTER VACCINE (1 of 2) 2044 HEPATITIS B VACCINE Completed 09/14/1995, 1994, 1994 HIB VACCINE Completed 03/07/1996 HPV VACCINE Completed 01/08/2008, 02/01, 11/27/2006 MENINGOCOCCAL GROUPS A/C/Y/W VACCINE Aged Out 10/27/2008 No longer eligible based on patient's age to complete this topic HEPATITIS C SCREENING Completed 01/02/2019 , 10/12/2018, 10/12/2018, Additional history exists MENINGOCOCCAL (Group B) VACCINE SHARED DECISION-MAKING Aged Out No longer eligible based on [...] CDT Nonalcoholic fatty liver disease Morbid obesity Liver lesion from Last 3 Months or Most Recently Relevant to Health Maintenance Results * HEPATITIS C ANTIBODY (01/02/2019 12:36 PM CDT) Hepatitis C Antibody Non-react elizabeth Non-reac tive 01/02/2019 1:33 PM CDT [facility] Comment: Hepatitis C Antibody screen indicates no [...] 12:36 PM CDT 01/02/2019 12:50 PM CDT us Maribel Kitchen MD LAB - CHEMISTRY ORDERABLES nal Result [address] [phone] from Last 3 Months or Most Recently Relevant to Health Maintenance Insurance [facility] * Guarantor: MARY CARMEN ABEL Account Type Relation to Patient Date of Phone Billing Address Personal/Family [address] [address] Care Teams Boot Liner Maker Relationship Specialty Start Date End Date Jonelle Elam MD [address] [place] [address] [place] [address] PCP - General Family Medicine 10/24/18 Manuj Rainey DO [address] [place] [address] Bariatrics 08/11/20 Skylar Canales PA-C [address] [facility] [address] [place] [address] Physician Property Specialist Nephrology 03/04/22
--- OUTSIDE RECORDS SUMMARY | 2025-01-03 16:06 | XMS_ITS | Clinical Summary ---
Author Organization [facility] Address [address] [place] [address] Care Team Providers Care Room Service Waiter Name Role Phone Vipin Bedoya DO Primary Care Provider [phone] Allergies Active Allergy Reactions Criticality Noted Date [...] and pain and weakness in legs Medications amLODIPine (NORVASC) 10 mg tablet Take 1 tablet (10 mg total) by mouth daily 02/07/2022 Active furosemide (LASIX) 40 mg tablet Take 1 tablet (40 mg total) by mouth daily Active losartan (COZAAR) 100 mg tablet Take 1 tablet (100 mg total) by mouth daily 09/28/2021 Active metoprolol tartrate (LOPRESSOR) 50 mg immediate release tablet Take 1 tablet (50 mg total) by mouth 2 (two) times a day 03/30/[address] (PROTONIX) 40 mg EC tablet TAKE 1 TABLET BY MOUTH EVERY DAY FOR GERD Active Nurtec ODT tablet,disinteg rating DISSOLVE 1 TABLET ON THE TONGUE EVERY DAY NEEDED FOR MIGRAINE 09/28/2021 Active spironolactone (ALDACTONE) 25 mg tablet Take 1 tablet (25 mg total) by mouth daily 01/30/2023 Active fluticasone propion-salmete roL (ADVAIR DISKUS) 100-50 mcg/dose diskus inhaler Inhale 1 puff 2 (two) times a day Rinse mouth with water after use. Do not swallow. 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 4. Ongoing assessment at [facility] visits. Last Assessment & Plan: Condition: stable Follow up in: if symptoms worsen or fail to improve Cataracts, bilateral 01/02/2019 Overview (10/16/2023): Has artificial lens in left eye Last Assessment & Plan: Having decreased nighttime vision Maternal Medicine recommendations: 1. recommend follow-up with talent acquisition associate GERD (gastroesophageal reflux disease) 9 Overview (10/16/2023): [...] testing every trimester--to be ordered by primary apprentice plumber, please send copy of recent results. 2. Follow up with GI as recommended in fall for repeat MRI and fibroscan. Hyperlipidemia 05/08/2017 Lumbar herniated disc 04/03/2014 Overview (10/16/2023): Last Assessment & Plan: Remains bothersome with use of maternity support belt. Denies any falls. Has PT referral and has not made appointment. Swimming with some relief. [facility] Plan: 1. Again encouraged to reach out to physical therapy, she assures me she has the order form at home. Uses intrauterine device for control 10/21 Depressive disorder 05/21/2012 Surgical History Surgery Date Site/Laterality Comments CATARACT EXTRACTION 04/03/2017 - 04/02/2018 Left 2018 or 2019 for congenital cataract TONSILLECTOMY AND ADENOIDECTOMY LUMBAR PUNCTURE ILIAC VEIN ANGIOPLASTY / STENTING Bilateral Medical History Medical History Date Comments Unspecified congenital cataract NAFLD (nonalcoholic fatty liver disease) Obesity Iron deficiency Amblyopia Migraine HLD (hyperlipidemia) Peripheral vascular disease Asthma Family History Medical History Relation Name Comments Hypertension Brother Asthma Child Alpha-1 antitrypsin deficiency Father Diabetes type I Father Heart attack Father Hyperlipidemia Father Hypertension Father Liver cancer Father congenital kidney disease Father diabetic retinopathy Father Glaucoma Maternal Grandfather Lung cancer Maternal Grandfather Breast cancer Maternal Grandmother Asthma Mother Fibromyalgia Mother Hypertension Mother Migraines Mother Skin cancer Mother Throat cancer Other Aunt Cancer Paternal Grandfather Liver o r pancreas Lung cancer Paternal Grandmother Relation Name Status Comments Brother Child Alive Father Maternal Grandfather Maternal Grandmother Mother Other Aunt Paternal Grandfather Paternal Grandmother Social History Tobacco Use Types Packs/Day Years Used Date Smoking Tobacco: Never Smokeless Tobacco: Never Tobacco Cessation:Counseling Given: Not Answered Comments Unknown Sex and Gender Information Value Date Recorded Sex Assigned at Not on file 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 Gender Identity Not on file Sexual Orientation Not on file Obstetrics History Last Filed Vital Signs Vital Sign Reading Time Taken Comments Blood Pressure 134/85 08/21/2024 2:06 PM CDT Pulse 83 08/21/2024 2:06 PM CDT Temperature 36.6 C (97.9 F) 10/16/2023 11:02 AM CDT Respiratory Rate 18 08/21/2024 2:06 PM CDT Oxygen Saturation 100% 08/21/2024 2:06 PM CDT Inhaled Oxygen Concentration - - Weight 134.3 kg (296 lb 1.2 oz) 08/21/2024 2:06 PM CDT Height 160.4 cm (5' 3.15) 08/21/2024 2:06 PM CD T Body Mass Index 52.2 08/21/2024 2:06 PM CDT Plan of Treatment Health Maintenance Due Date Last Done Comments Cervical Cancer Screening 1994 Depression Screening 1994 Hepatitis C Screening 1994 Regular Well Visit/Exam 18-64 2012 Pneumococcal vaccine <65 (1 of 2 - PCV) 2013 Covid-19 Vaccine (2 - 2024-2 6 season) 2024 02/04/2021 Influenza Vaccine (#1) 2024 0, 01/03/2019, 01/26/2018, Additional history exists DTaP/Tdap/Td Vaccine (9 - Td or Tdap) 10/18/2029 10/19/2019, 08/01/2018, 10/27/2008, Additional history exists Varicella Vaccines Completed 11/27/2006, 03/07/1996 HPV Vaccines Completed 01/08/2008, 02/01, 11/27/2006 Insurance [facility] CIGNA CIGNA Care Teams Room Service Waiter Relationship Specialty Start Date End Date Vipin Bedoya DO PCP - General Internal Medicine 10/16/23
--- NOTE | 2025-01-03 16:07 | ECG_ITS ---
Test Date: 2025-01-03 16:18:28 Measurements Intervals [place] Rate: 75 P: 17 [place]: 150 QRS: 17 QRSD: 100 T: 36 QT: 368 QTc: 412 Interpretive Statements SINUS RHYTHM MINIMAL Q WAVES- HIGH LATERAL LEADS BASELINE ARTIFACT- I, II, III BORDERLINE ECG No previous ECG available for comparison Electronically Signed On 01-03-2025 16:23:36 CDT by Lyndon Vincent D.O.
[2025-01-03 16:08] VITALS: BP 160/113; PULSE 82; RESP 20; TEMP 36.4; O2SAT 100
[2025-01-03 16:30] LABS: Hematocrit 42.7 % (37.0-47.0); Hemoglobin 13.7 g/dL (12.0-15.0); Immature Granulocyte Percent A 0.2 % (0-0.5); Lymphocytes Absolute Auto 2.60 K/mm3 (0.9-3.2); Mean Corpuscular HGB Conc 32.1 g/dl (32-36); Mean Corpuscular Hemoglobin 25.0 pg (26-34); Mean Corpuscular Volume 78.1 fl (80-100); Nucleated Red Blood Cells Absolute Auto 0.000 K/mm3 (0.0-0.012); Nucleated Red Blood Cells Perc 0.0 % (0.0-0.2); Platelet Count Result 357 k/mm3 (150-375); Red Blood Count 5.47 M/mm3 (4.2-5.4); White Blood Count 9.2 K/mm3 (4.5-10.0)
[2025-01-03 16:41] LABS: INR 1.1; Prothrombin Time 13.7 Seconds (11.1-14.7)
[2025-01-03 16:42] LABS: Partial Thromboplastin Time 26.2 Seconds (22.3-36.8)
[2025-01-03 16:49] LABS: Alanine Aminotransferase 30 U/L (6-35); Albumin Level 5.1 g/dL (3.5-5.1); Alkaline Phosphatase 79 U/L (38-126); Anion Gap 12 mmol/L (4-12); Aspartate Amino Transferase 26 U/L (14-36); Bilirubin,Total 0.9 mg/dL (0.2-1.3); Blood Urea Nitrogen 10 mg/dL (7-17); Calcium 9.8 mg/dL (8.4-10.2); Carbon Dioxide 23 mmol/L (22-30); Chloride 102 mmol/L (98-107); Estimated CRCL calculation 134 ml/min; Estimated Glomerular Filt Rate > 60; Glucose 104 mg/dL (65-110); Lipase 143 U/L (23-300); Potassium 3.7 mmol/L (3.4-5.0); Sodium 137 mmol/L (137-145); Total Protein 9.1 g/dL (6.3-8.2)
[2025-01-03 17:00] LABS: Troponin I < 0.012 ng/mL (0.000-0.034)
--- OUTSIDE RECORDS SUMMARY | 2025-01-03 18:11 | XMS_ITS | Data Portability ---
Author Organization [facility] [place] Address [address] [place] [address] [place] [address] Assessment Encounter Date Assessment Date Assessment LastModified by Organization Details LastModified Time 12/27/2019 12/27/2019 This patient is a Hkwwvy-opdn-iwzd -old who presents for IUD check. She [...] a year unless there are new symptoms. [email or web address] Not available 09/23/2023 11:41:19 Plan of Treatment Reminders Order Date Submit Date Provider Last Modified By Organization Details Last Modified Time Details Appointments None recorded. Lab None recorded. Referral None recorded. Procedures None recorded. Surgeries None recorded. Imaging US, pelvis 2022 023 [email or web address] [address], [address], [place], [address], 22:00:00 US, transvagina l 2022 023 [email or web address] [address], [address], [place], [address], 3 22:00:00 Medication Orders Metrogel Vaginal 0.75 % (37.5 mg/5 gram) 2023 024 [id number], [address], [place], [place], [id number], 4 09:26:33 Patient TargetsNo targets recorded. Patient InstructionsNo instructions recorded. Reason for Referral None Reported. Results Created Date Observation Date Name Description Value Unit Range Abnormal Flag Note LastModifiedBy Organization Detail LastModifiedTime 05/16/19 21 05/16/2020 US, trish pinedo w-up interpretati on Not Available [facility] [address], [place], [address], 09/19/2019 17:16:44 04/13/19 23 04/13/2022 IMAGE GUIDE D PAP, REFLE X HPV IF ASCUS ONLY image guided Pap, reflex HPV ASCUS only SEE RESULT S BELOW CASE REPOR T: Cytol ogy Gynec ologi adrianne Repor t Case: [id number] Autho riomarn g Provi boubacar: Jona Maldonado MD Colle [...] OSIS: Negat elizabeth for Intra epith elial Lessindy n or Angel reid (NIL) . Elect [...] Thinp rep Imagi ng Syste m. CLINI ADRIANNE INFOR MATIO N: Menst rual Statu s: LMP (if appli cable ): Clini adrianne Histo ry/Pr eviou s Pap: Type of Neopl janny (if appli cable ): Signi fican t Clini adrianne Findi ngs: Other Histo ry: Hormo ericka [...] ng do not corre late with physi adrianne and/o r histo rical findi ngs, furth er inves tigat ion is recom christopher d, as clini ben park nted. Not Available [facility] (Lab) [address], [place], [address], 04/18/2022 18:53:38 09/25/19 24 09/25/2023 IMAGE GUIDE D PAP, REFLE X HPV IF ASCUS ONLY image guided Pap, reflex HPV ASCUS only SEE RESULT S BELOW CASE REPOR T: Cytol ogy Gynec ologi adrianne Repor t Case: [id number] Autho nirmal benitez Provi boubacar: Jona Maldonado MD Colle cted: 09/24 1526 Order ing Locat ion: [place] Patho logkaren Rececristi valeri: 09/25 0440 First Scree n: Marbella Hartman Rescr een: Deirdre Ingram, CT Speci men: Scree chetna Pap - Image d, Cervi x STATE MENT OF ADEQU ACY: Satis facto ry for evalu ation Trans forma tion zone compo nent prese nt ----- ----- ----- ----- ----- ----- ----- ----- ----- ----- ----- ----- ----- ----- ----- ----- ----- ---- FINAL DIAGN OSIS: Negat elizabeth for Intra epith elial Valentín garcia or Angel reid (NIL) . Elect ryan dinh by Deirdre Ingram, CT on 2023 at [...] Thinp rep Imagi ng Syste m. CLINI ADRIANNE INFOR MATIO N: Menst rual Statu s: LMP (if appli cable ): Clini adrianne Histo ry/Pr anna marieiou s Pap: Type of Neopl janny (if appli cable ): Signi fican t Clini adrianne Findi ngs: Other Histo ry: Hormo ericka [...] ng do not corre late with physi adrianne and/o r histo rical findi ngs, furth er inves tigat ion is recom christopher d, as clini ben park nted. Not Available [facility] (Lab) [address], [place], [address], 09/27/2023 15:57:28 05/24/19 23 05/24/2022 US, pelvi s No observ ation [place] ed. [place] [address] [facility] [address], [place], [address], 05/24/2022 18:30:16 05/24/19 23 05/24/2022 US, trans cari al No observ ation record ed. [place] [address], [place], [address], 05/24/2022 18:30:08 05/24/19 23 05/24/2022 US, pelvi s No observ ation record ed. [email or web address] [address], [place], [address], 05/24/2022 21:59:46 Result Notes None recorded. Problems Name Problem SNOMED Code Status Onset Date Resolution Date Notes Provider Name and Address Organization Details Recorded Time History of hyperten pretty 032999153 Completed Myra Shaw [facility] 0 14:57:05 Lesion of liver 938956723 Completed seeing MFM *MFM RECOMMEN DS LFP Q TRIMESTE R!* (next appt 08/28/19) , saw [facility] and then went to [facility] waiting on records yMra gardner, [facility] 0 14:57:05 Anxiety disorder 254992720 Completed Myra gardner, [facility] 0 14:57:05 Maternal obesity complica ting pregnanc y, childbir th and the puerperi um, antepart um 40923731636 7 Completed NSTs @ 32 weeks!! Serial growth Myra gardner, [facility] 0 14:57:05 Screenin g for malignan t neoplasm of cervix Active 2011 Screenin g for malignan t neoplasm s of the cervix;R ecorded Elsewher e: No Locat ion: [facility] S ource: EHR Flask Cleaner anita: N Practi ce ID: 0001 Zurdo lable Time: 03:15:00 PM Not Available [facility] 0 21:35:52 anatomy study Active 2011 [facility] ANATMC SURVEY;R ecorded Elsewher e: No Locat ion: [facility] S ource: EHR Flask Cleaner anita: N Practi ce ID: 0001 Zurdo lable Time: 03:30:00 PM Not Available [facility] 0 21:36:07 Elevated blood-pr essure reading without diagnosi s of hyperten pretty 613994348 Active 2012 Elevated blood pressure reading without diagnosi s of hyperten pretty;Pra ctice ID: 0001 Not Available [facility] 0 21:36:12 Poor growth affectin g manageme nt 592278073 Active 2012 [facility] SGA;Prac juliane ID: 0001 Not Available [facility] 0 21:35:45 Delivery normal 01005902 Active 2012 Normal delivery ;Practic e ID: 0001 Not Available [facility] 0 21:35:47 Depressi ve disorder 40908758 Active 2012 Depressi ve disorder , not elsewher e classifi ed;Pract ice ID: 0001 Not Available [facility] 0 21:35:47 Postpart um care Active 2012 Routine postpart um follow-u p;Practi ce ID: 0001 Not Available [facility] 0 21:35:47 Pregnanc y test negative 837196150 Active 2013 Negative Pregnanc y Test;Pra ctice ID: 0001 Not Available [facility] 0 21:35:28 Educatio n Active 2013 Counseli ng contrace ptive manageme nt;Pract ice ID: 0001 Not Available [facility] 0 21:35:48 Insertio n of intraute rine contrace ptive device Active 2013 INSERTIO N OF IUD;Prac juliane ID: 0001 [facility] Available [facility] 0 21:35:28 Uses IUD (intraut erine device) contrace ption 090153942 Active 2013 Surveill ance of intraute rine contrace ptive device;P ractice ID: 0001 Not Available [facility] 0 21:35:28 Speciali zed medical examinat ion Active 2013 Routine gynecolo gical examinat ion;Prac juliane ID: 0001 Not Available [facility] 0 21:35:[address] Concept Active 2017 Encntr for elderly sitter exam (general ) (routine ) w/o abn findings ;Practic e ID: 0001 Not Available [facility] 0 21:35:28 Pregnanc y detectio n examinat ion Active 2017 Encounte r for pregnanc y test, result positive ;Practic e ID: 0001 Not Available [facility] 0 21:35:29 Normal pregnanc y in multigra maira 77831575812 4106 Active 2017 Encounte r for suprvsn [...] 0001 Not Available [facility] 0 21:35:30 Hyperten pretty in the obstetri c context Active 2018 Pre-exis ting essentia l htn comp pregnanc y, second trimeste r;Practi ce ID: 0001 Not Available [facility] 0 21:35:[address] Concept Active 2018 Decrease d movement s, third trimeste r, unsp;Pra ctice ID: 0001 Not Available [facility] 0 21:35:31 Gestatio n period, 28 weeks 35148441 Active 2018 28 weeks gestatio n of pregnanc y;Practi ce ID: 0001 Not Available [facility] 0 21:35:31 False labor before 37 complete d weeks of gestatio n 41261685635 818781 Active 2018 False labor before 37 complete d weeks of gest, third tri;Prac juliane ID: 0001 Not Available [facility] 0 21:35:31 Gestatio n period, 30 weeks 86829962 Active 2018 30 weeks gestatio n of pregnanc y;Practi ce ID: 0001 Not Available [facility] 0 21:35:32 Clinical finding Active 2018 Obesity, unspecif ied;Prac juliane ID: 0001 Not Available [facility] 0 21:35:32 Severe obesity complica ting pregnanc y 53957612995 783873 Active 2018 Obesity complica ting pregnanc y, third trimeste r;Practi ce ID: 0001 Not Available [facility] 0 21:35:33 Gestatio n period, 32 weeks 0519680 Active 2018 32 weeks gestatio n of pregnanc y;Practi ce ID: 0001 Not Available [facility] 0 21:35:33 Gestatio n period, 33 weeks 84478395 Active 2018 33 weeks gestatio n of pregnanc y;Practi ce ID: 0001 Not Available [facility] 0 21:35:35 Prematur e labor 6983988 Active 2018 labor without delivery , third trimeste r;Practi ce ID: 0001 Not Available [facility] 0 21:35:36 Gestatio n period, 35 weeks 30530269 Active 2018 35 weeks gestatio n of pregnanc y;Practi ce ID: 0001 Not Available [facility] 0 21:35:38 Gestatio n period, 36 weeks 34941175 Active 2018 36 weeks gestatio n of pregnanc y;Practi ce ID: 0001 Not Available [facility] 0 21:35:41 Term pregnanc y delivere d 39787264 Active 2018 Encounte r for full-ter m uncompli cated delivery ;Practic e ID: 0001 Not Available [facility] 0 21:35:41 Single live from singleto n pregnanc y 395558812 Active 2018 Single live ;Pr actice ID: 0001 Not Available [facility] 0 21:35:41 Hemorrha gic complica tion of pregnanc y 289297306 Active 2019 Other hemorrha ge in early pregnanc y;Practi ce ID: 0001 Not Available [facility] 0 21:35:43 Gestatio n period, 10 weeks 12348367 Active 2019 10 weeks gestatio n of pregnanc y;Practi ce ID: 0001 Not Available [facility] 0 21:35:43 Pelvic and perineal pain 556601336 Active 2019 Pelvic and perineal pain;Pra ctice ID: 0001 Not Available [facility] 0 21:35:45 Pregnanc y 57023023 Completed 201903/18/2020 Myra Shaw [facility] 0 14:57:11 Problem Notes None recorded. Procedures Surgical History Date Name Laterality Status Provider Name and Address Organization Details Recorded Time 11/27/19 20 IUD Insertion completed Ede Maldonado MD [address], [place], [address], , P.C. 11/27/2019 17:27:35 04/03/19 18 cataract surgery completed [facility] 11/15/2019 16:02:44 04/03/19 08 [facility] 07/10[facility] 12:43:23 04/03/19 03 tympanostomy completed [facility] 11/15/2019 16:02:54 Imaging Results None recorded. Procedure Notes None recorded. Medical Equipment None Reported. Allergies Allergen ID Allergen Name Allergen Category Reaction Reaction Severity Criticality Documentation Date Start Date Code Code System Note Provider Name and Address Organization Details Recorded Time 33873 levofloxa kd medicatio n hives Not available Not available 04/13/2022 12635 RxNorm Estela Clancy [facility] 3 18:26:03 48 cephalexi n medicatio n Not available Not available Not available 07/10/2019 2231 RxNorm Arianna Epps [facility] 0 12:32:45 49 labetalol medicatio n chest pain Not available Not available 07/10/2019 6185 RxNorm chest pain and SOB Arianna Epps [facility] 0 12:33:48 Medications Name Sig Start [...] Prescrib ed Elsewher e: Yes Loca tion: [facility] odify By: harvinder crawford DateTime : 07/27/19 14 09:30:00 AM Not Available Not Available Not Available prednison e 10 mg tablet 09/22 completed Not Available Not Available Not Available labetalol 200 mg tablet take 1 tablet (200MG) by oral route 2 times every day 05/21 completed Prescrib ed Elsewher e: No Locat ion: [facility] odify By: [email or web address] trick En counter DateTime [...] Prescrib ed Elsewher e: Yes Loca tion: [facility] odify By: harvinder crawford DateTime : 01/14/20 [...] oral route every day 06/04 completed Prescrib ed Elsewher e: No Locat ion: [facility] odify By: [email or web address] trick En counter DateTime [...] Prescrib ed Elsewher e: No Locat ion: [facility] odify By: kmkirkpa trick En counter DateTime : 02/17/20 12 03:45:00 PM Not Available Not Available Not Available neomycin- polymyxin -hydrocor t 3.5 mg-10,000 unit/mL-1 % ear drops,claudia p 07/09 completed Not Available Not Available Not Available Tablet 28 mg iron-800 mcg 05/21 completed Prescrib ed Elsewher e: Yes Loca tion: [facility] odify By: kmkirkpa trick En counter DateTime [...] Prescrib ed Elsewher e: No Locat ion: Stephanie savage [facility] odify By: kmkirkpa trick En counter DateTime : 05/02/19 13 03:48:05 PM Not Available Not Available Not Available Mononessa (28) 0.25 mg-35 mcg tablet take 1 tablet by oral route every day 12/31 completed Prescrib ed Elsewher e: Yes Loca tion: Stephanie savage [facility] odify By: kmkirkpa trick En counter [...] Prescrib ed Elsewher e: Yes Loca tion: Stephanie savage [facility] odify By: harvinder crawford DateTime : 01/14/20 14 12:30:00 PM Not Available Not Available Not Available B12 11/14 completed and B2 Not Available Not Available Not Available 28 mg iron-800 mcg tablet 04/13 completed Prescrib ed Elsewher e: Yes Loca tion: Stephanie savage [facility] odify By: mitesh Encounte r DateTime : 04/30/19 01:45:00 PM Not Available [...] Body mass index (BMI) Body weight Systolic And Diastolic Provider Name and Address Organization Details Last Updated DateTime 04/13/2022 154.94 cm 65.6 kg/m2 083481.55 g 129/83 mm[Hg] Estela [facility] 04/13/2022 18:25:29 Date Recorded Body height Body mass index (BMI) Body weight Systolic And Diastolic Provider Name and Address Organization Details Last Updated DateTime 06/08/2022 154.94 cm 64.6 kg/m2 738745.59 g 111/75 mm[Hg] Angela Aponte [facility] 06/08/2022 17:45:33 Date Recorded Body height Body mass index (BMI) Body weight Systolic And Diastolic Provider Name and Address Organization Details Last Updated DateTime 09/23/2023 154.94 cm 61 kg/m2 451918.34 g 115/69 mm[Hg] Martha Shields [facility] 09/23/2023 11:42:56 Date Recorded Body height Body mass index (BMI) Body weight Systolic And Diastolic Provider Name and Address Organization Details Last Updated DateTime 12/27/2019 154.94 cm 60.1 kg/m2 210316.37 366 g 148/96 mm[Hg] Estela Julieth [facility] 12/27/2019 16:55:23 Social History Question Answer Notes LastModified by Organizat ion Details LastModified Time Tobacco Smoking Status Never Smoker Arianna gardner [facility] 07/10/2019 13:00:52 If You Are , What Was Your Level Of Alcohol Consumption Prior To ? Occasional [email or web address] Information not available 09/13/2019 Are You Blind Or Do You Have Difficulty Seeing? No [email or web address] Information n ot available 09/23/2023 In The 14 Days Before Symptom Onset, Have You Had Close Contact With A Laboratory-confirm ed COVID-19 While That Case Was Ill? No [email or web address] Information n ot available 09/23/2023 In The 14 Days Before Symptom Onset, Have You Had Close Contact With A Person Who Is Under Investigation For COVID-19 While That Person Was Ill? No [email or web address] Information not available 09/23/2023 Have You Been To An Area Known To Be High Risk For COVID-19? No [email or web address] Information not available 09/23/2023 Are You Deaf Or Do You Have Serious Difficulty Hearing? No [email or web address] Information not available 09/23/2023 Which Illicit Or Recreational Drugs Have You Used? None Information not available 09/13/2019 What Was The Date Of Your Most Recent Tobacco Screening? 11/15/2019 [email or web address] Information not available 11/15/2019 Do You Use Your Seat Belt Or Car Seat Routinely? Yes Information not available 09/23/2023 Are You Sexually Active? Yes [email or web address] Information not available 09/23/2023 Do You Have Smoke And Carbon Monoxide Detectors In Your Home? Yes [email or web address] Information not available 09/23/2023 How Much Tobacco Do You Smoke? No [email or web address] Information not available 09/13/2019 Smoking Pre- No Information not available 09/13/2019 Do You Use Sunscreen Routinely? Yes [email or web address] Information not available 09/23/2023 Do You Have Difficulty Walking Or Climbing Stairs? No [email or web address] Information not available 09/23/2023 Sex: Unknown Functional Status Question Answer Note LastModified by Organizat ion Details LastModified Time What is your level of alcohol consumption? None Information not available 07/10/2019 Do you or have you ever used smokeless tobacco? Never used smokeless tobacco [email or web address] Information not available 09/13/2019 Are you able to walk independently without assistance or assistive devices? YESWOREST [email or web address] Information not available 09/23/2023 Are you able to care for yourself independently? Yes [email or web address] Information not available 09/23/2023 Do you have difficulty dressing, bathing, grooming, or toileting? No [email or web address] Information not available 09/23/2023 Do you or have you ever used e-cigarettes or vape? Never used electronic cigarettes Information not available 09/13/2019 What is your exercise level? Occasional Information [...] Diagnosis SNOMED-CT Code Diagnosis ICD10 Code Diagnosis IMO Codes Diagnosis Note 204 Barb Jc [place] [address] [address] 07/10/2019 12:10:22 07/11/2019 18:06:48 3234 Iza Cerda [facility] [address] [place] [address] 08/07/2019 09:37:34 08/07/2019 11:06:54 Routine care 819693151 Z34.82 5018 Barb Jc [facility] [address] [place] [address] 08/22/2019 12:16:29 08/22/2019 13:11:27 Routine care 071028080 Z34.93 - induced hypertension 62717557 O13.9 Urinary tr act infectious disease 11827752 N39.0 7053 Ede Maldonado MD [place] [address] [place] [address] 09/10/2019 09:18:02 09/10/2019 16:52:04 Maternal obesity complicating , childbirth and the puerperium, antepartum 9688170264 07 O99.213 7772 Ede Maldonado MD [place] [address] [place] [address] 09/13/2019 14:12:53 09/13/2019 14:59:30 Maternal obesity complicating , childbirth and the puerperium, antepartum 9851984579 07 O99.213 7773 Iza Cerda [facility] [address] [place] [address] 09/13/2019 14:13:23 09/13/2019 16:15:22 Routine care 022524058 Z34.82 8102 MD Cadence Farley [address] [address] 09/17/2019 09:37:13 09/17/2019 13:42:43 Maternal obesity complicating , childbirth and the puerperium, antepartum 2762070624 07 O99.213 8593 MD Cadence Farley [address] [address] 09/19/2019 16:37:50 09/21/2019 16:25:03 Maternal obesity complicating , childbirth and the puerperium, antepartum 5682698660 07 O99.210 O16.3 Z3A.33 8594 Barb Jc [facility] [address] [address] 09/19/2019 16:38:07 09/19/2019 17:24:14 Routine care 030591631 Z34.93 8622 MD Cadence Farley [address] [address] 09/20/2019 09:21:45 09/20/2019 10:55:50 Maternal obesity complicating , childbirth and the puerperium, antepartum 6150465667 07 O99.213 9038 MD Cadence Farley [address] [address] 09/24/2019 09:35:49 09/24/2019 11:10:26 Maternal obesity complicating , childbirth and the puerperium, antepartum 3901026196 07 O99.213 9552 MD Cadence Farley [address] [address] 09/27/2019 09:36:25 09/27/2019 11:10:48 Maternal obesity complicating , childbirth and the puerperium, antepartum 9416637575 07 O99.213 9553 MD Cadence Farley [address] [address] 09/27/2019 09:36:51 09/27/2019 11:10:37 Routine care 230747310 Z34.83 9990 MD Cadence Farley [address] [address] 10/01/2019 09:35:23 10/01/2019 10:27:55 Maternal obesity complicating , childbirth and the puerperium, antepartum 3990799611 07 O99.213 9991 Iza Cerda [facility] [address] [address] 10/01/2019 09:35:45 10/01/2019 11:39:40 Routine care 023827175 Z34.82 09702 Ede Maldonado MD [place] [address] [address] 10/08/2019 09:45:57 10/08/2019 11:58:23 Maternal obesity complicating , childbirth and the puerperium, antepartum 9919916165 07 O99.213 47480 Ede Maldonado MD [place] [address] [address] 10/11/2019 09:37:07 10/11/2019 10:41:42 Maternal obesity complicating , childbirth and the puerperium, antepartum 3153865596 07 O99.213 76595 Iza Cerda [facility] [address] [address] 10/11/2019 09:37:54 10/11/2019 12:06:20 Routine care 052156366 Z34.82 17968 MD Cadence Farley [address] [address] 10/11/2019 11:14:17 10/11/2019 13:29:21 condition affecting obstetrical care of mother 876902216 O36.8330 47533 Ede Maldonado MD [place] [address] [address] 10/15/2019 09:33:47 10/15/2019 10:21:06 Maternal obesity complicating , childbirth and the puerperium, antepartum 1531612117 07 O99.213 08168 Ede Maldonado MD [place] [address] [address] 10/15/2019 09:54:02 08/04/2020 10:07:43 11126 Iza Cerda [facility] [address],[place] [address] 11/15/2019 12:34:18 11/15/2019 13:50:00 care 700348314 Z39.2 f/u iud insertion 2 weeks, plan paragard, normal pp exam abstain until placement 30499 Ede Maldonado MD [place] [address] [address] 11/27/2019 17:05:19 11/27/2019 17:30:17 Contraception care management 760935938 Z30.9 IUD was inserted without complicati ons. ParaGard. 64982 Ede Maldonado MD [place] [address] [address] 12/27/2019 16:48:46 12/30/2019 14:48:01 Contraception care management 861168138 Z30.9 [id number] Ede Maldonado MD [place] [address],[place] [address] 04/13/2022 17:59:52 04/14/2022 15:00:33 Gynecologic examination 34038158 Z01.419 Annual gynecologi adrianne exam performed. Patient will come back in [...] This was seen on ultrasound at outside [facility]. We will follow up with ultrasound on the complex cyst. [id number] Ede Maldonado MD [place] [address] [address] 05/24/2022 17:36:25 05/25/2022 15:03:33 Cyst of ovary 13619849 N83.209 [id number] Ede Maldonado MD [place] [address] [address] 06/08/2022 17:39:36 06/09/2022 12:51:50 Pain in pelvis 90401681 R10.2 26-year-ol d female with pelvic pain [...] She will follow up for any changes 189386 Ede Maldonado MD [place] [address] [address] 09/23/2023 11:34:50 09/23/2023 12:26:57 Gynecologic examination 90595541 Z01.419 Annual gynecologi adrianne exam performed. Patient will come back in [...] -to do with PMD Bacterial vaginosis 4197 10435 N76.0 Health Concerns Section Related Observation LastModified by Organization Detai ls LastModified Time None Recorded Concern Status LastModified by Organization Details LastModified Time None Recorded Advance Directives Directive None Recorded Payers Insurance Date Sequence Insurance Name Policy Number Policy Mcconnell Covered Member ID Mcconnell Member ID Guarantor Name 11/11/2023 1 LAURIE [id number] Deya Campbell [id number] Deya Campbell 09/18/2023 1 [facility] (MEDICAID HMO) [id number] Deya Campbell [id number] Deya Campbell Notes Date Note Type Note Provider Name and Address Organization Details Recorded Time 12/27/19 20 text/htm l This patient is a 24-year-old who presents for IUD check. She has no complaints. She was examined with a speculum. The cervix appears normal, the IUD string appears normally placed, the IUD was not visible. She will follow up as needed. Ede Maldonado MD [address], [place], [address], , P.C[facility] 12/27/2019 17:35:53 04/13/19 23 text/htm l Annual GYNReported by PatientHistoryFor history, patient reportsno gynecologic complaints.Genitourinary symptomsFor menstrual cycle, patient reportsnormal menses. For urinary symptoms, patient reportsno hematuria. For vulva, patient reportsno genital lesion. For vagina, patient reportsnormal vaginal discharge.Breast symptomsFor breast, patient reportsno breast painandno breast lump.ContraceptionFor current contraception, patient reportssatisfied with current contraceptionandintrauterin e device (iud).Endocrine symptomsFor sexual complaints, patient reportsno sexual complaints.Psychological symptomsFor psychological symptoms, patient reportsanxietybut reportsno depression(txed).Preventati ve measuresFor preventive measures, patient reportsencourage self breast examinationandencourage regular exercise. Ede Maldonado MD [address], [place], [address], , [facility] 04/13/2022 18:49:03 06/09/19 23 text/htm l 26-year-old female with pelvic pain and ovarian cyst. [...] for any changes Ede Maldonado MD [address], [place], [address], , [facility] 06/08/2022 21:55:53 09/23/19 24 text/htm l Annual GYNReported by PatientHistoryFor history, patient reportsno gynecologic complaints.Genitourinary symptomsFor vagina, patient reportsfoul-smelling. For menstrual cycle, patient reportsnormal menses. For urinary symptoms, patient reportsno hematuria. For vulva, patient reportsno genital lesion.Breast symptomsFor breast, patient reportsno breast painandno breast lump.ContraceptionFor current contraception, patient reportsintrauterine device (iud).Endocrine symptomsFor sexual complaints, patient reportspain during intercourse. For menopausal symptoms, patient reportsno menopausal symptoms.Psychological symptomsFor psychological symptoms, patient reportsanxietybut reportsno depression(treated).Prevent ative measuresFor preventive measures, patient reportsencourage self breast examinationandencourage regular exercise. Ede Maldonado MD [address], [place], [address], , [facility] 09/23/2023 12:26:08 OBGyn Episode Ob Episode Information Episode Created Date Number of Fetuses Patient Bloodtype Patient rh Status Prepregnancy Weight lbs Domestic Partner Domestic Partner Phone Father Name Solar [employer] Electric[employer] Status 07/10/19 20 1 CLOSED Fetus Data [...] Domestic Partner Domestic Partner Phone Father Name Solar [employer]ovolta[employer] Electrician Status 07/10/19 20 1 O Positive 289 CLOSED Fetus Data First Name Last Name Admitted to NICU Weight (g) Sex Living Outcome Pediatric Complications Fetus ID Race Codes Race Delivery Type 3798.83 3 F true Full Term 132 Vaginal Delivery Problems Problem Notes Problem Name Start Date End Date Resolution Snomed Code Not e History of hypertension 690510768 Lesion of liver 611122494 seei ng MFM *MFM RECOMMENDS LFP Q TRIMESTER!* (next appt 08/28/19), saw [facility] and then went to [facility]. waiting on records Anxiety disorder 490507871 Maternal obesity complicating , childbirth and the puerperium, antepartum [id number] NSTs @ 32 weeks !! Serial growth Jak Calculation Initial Jak Date Initial Exam Date Initial Exam Provider Initial Ultrasound Date Last Menstrual Period Date Ultra Sound Weeks Gestation 11/02/2019 07/10/2019 04/08/2019 01/01/2019 10 Eighteen To Twenty Week Jak Update Ultra Sound Date Fundal Height At Umbil Quickening Date Ultra Sound Latest Weeks Gestation Final Jak Confirmed By Final Jka Confirmed Date Final Jak Date Ultra Sound Latest Days Gestation 0 [email or web address] 08/23/2019 11/02/19 20 0 Pre-mary ann Flowsheet Flowsheet Date 07/10/2019 Bernabe Score Blood Edema Fundus Height Fundus Units Glucose Ketones Leukocytes Nitrite Labor Signs Protein Cervic Dilation Cervic Effacement Cervic Station 25 none trace Type Weight in lbs Pre/Post Dialysis Refused Weight 293.652281415817 BP Diastolic BP Location Tested BP Systolic [...] Weight in lbs Pre/Post Dialysis Refused Weight 204.319000371649 BP Diastolic BP Location Tested BP Systolic [...] Weight in lbs Pre/Post Dialysis Refused Weight 284.899774491149 BP Diastolic BP Location Tested BP Systolic BP Type 84 132 sitting Fetus Heart Rate Present A 150 Fetus Movement Comments Pt is having a girl Akiko. Flowsheet Date 06/12/2019 Bernabe Score Blood Edema Fundus Height Fundus Units Glucose Ketones Leukocytes Nitrite Labor Signs Protein Cervic Dilation Cervic Effacement Cervic Station trace trace Type Weight in lbs Pre/Post Dialysis Refused Weight 290.6559734227 BP Diastolic BP Location Tested BP Systolic BP Type 82 137 sitting Fetus Heart Rate Present A 154 Fetus Movement A Yes Comments OB [id number] patient states th at having some pain, [...] Weight in lbs Pre/Post Dialysis Refused Weight 300.922871151103 BP Diastolic BP Location Tested BP Systolic [...] Weight in lbs Pre/Post Dialysis Refused Weight 302.470467311876 BP Diastolic BP Location Tested BP Systolic BP Type 79 124 sitting Fetus Heart Rate Present A 146 Fetus Movement A Yes Comments Pt doing well. Will check la bs today per mfm recommendation. Flowsheet Date 09/10/2019 Bernabe Score Blood [...] Weight in lbs Pre/Post Dialysis Refused Weight 309.12154664463 BP Diastolic BP Location Tested BP Systolic BP Type 83 132 Fetus Heart Rate Present A 144 Fetus Movement A Yes Comments patient states that having b ack pain, pelvic pain, discharge, swelling, and nausea. Patient states had elevated blood pressure, headache and vision changes yesterday and states that is better today, PIH precautions, goes to [facility] on 09/24 for growth us, asymptomatic [...] Weight in lbs Pre/Post Dialysis Refused Weight 313.346035902421 BP Diastolic BP Location Tested BP Systolic [...] Weight in lbs Pre/Post Dialysis Refused Weight 314.332313045003 BP Diastolic BP Location Tested BP Systolic [...] Weight in lbs Pre/Post Dialysis Refused Weight 315.854337222823 BP Diastolic BP Location Tested BP Systolic [...] Weight in lbs Pre/Post Dialysis Refused Weight 317.990804425201 BP Diastolic BP Location Tested BP Systolic [...] Weight in lbs Pre/Post Dialysis Refused Weight 309.55456729209 BP Diastolic BP Location Tested BP Systolic BP Type 84 150 Fetus Heart Rate Present Fetus Movement Comments Flowsheet Date 11/27/2019 Bernabe Score Blood Edema Fundus Height Fundus Units Glucose Ketones Leukocytes Nitrite Labor Signs Protein Cervic Dilation Cervic Effacement Cervic Station Type Weight in lbs Pre/Post Dialysis Refused Weight 313.164998326186 BP Diastolic BP Location Tested BP Systolic BP Type 94 146 Fetus Heart Rate Present Fetus Movement Comments Flowsheet Date 12/27/2019 Bernabe Score Blood Edema Fundus Height Fundus Units Glucose Ketones Leukocytes Nitrite Labor Signs Protein Cervic Dilation Cervic Effacement Cervic Station Type Weight in lbs Pre/Post Dialysis Refused Weight 318.579582064732 BP Diastolic BP Location Tested BP Systolic [...] Estim ated Date of Delivery false Thalassemia (Samoan, Occitan, Mediterranean, Or Background): MCV < 80 false Neural Tube Defect (Meningomyelocele, Spina Bifi da, Or Anencephaly) false Congenital Heart Defect false Down Syndrome false Matteo-Sachs (eg, Voodoo, Cajun, Turkmen-Nigerian) f alse Chase Disease false Sickle Cell Disease Or Trait () false Hemophilia Or Other Blood Disorders false Muscular Dystrophy false Cystic Fibrosis false [place]'s Chorea false Intellectual Disability/Autism false If Yes, [...] Domestic Partner Domestic Partner Phone Father Name Solar [employer] Electrician Status 07/10/19 20 1 CLOSED Fetus Data [...] Domestic Partner Domestic Partner Phone Father Name Solar [employer]ovolta[employer] Electrician Status 11/04/19 20 1 DELETED Jak Calculation [...]
--- OUTSIDE RECORDS SUMMARY | 2025-01-03 18:11 | XMS_ITS | Encounter Summary ---
Author Organization [facility] Address [address] [place] [address] Phone Care Team Providers Care Phone Engineer Name Role Phone Jonelle Elam MD Primary Care Provider + Vipin Bedoya DO Primary Care Provider Encounter Details Date Type Department Care Team (Latest Contact Info) Description 04/30/2020 Transcribe Orders 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 No / Unsure 05/01/2020 4:12 PM MECHANICAL DESIGN DRAFTER documented as of this encounter Plan of Treatment Not on file documented as of this encounter Results * HEPATIC FUNCTION PANEL (05/01/2020 4:25 PM MECHANICAL DESIGN DRAFTER) T BILI 0.4 <=1.2 mg/dL 05/01/2020 4:56 PM MECHANICAL DESIGN DRAFTER [facility] BILIRUBIN,DIRECT <0.3 <=0.3 mg/dL 05/01/2020 4:56 PM MECHANICAL DESIGN DRAFTER [facility] ALKALINE PHOSPHATASE 70 35 - 105 U/L 05/01/2020 4:56 PM MECHANICAL DESIGN DRAFTER [facility] SGOT (AST) 23 <=32 U/L 05/01/2020 4:56 PM MECHANICAL DESIGN DRAFTER [facility] SGPT (ALT) 32 <=41 U/L 05/01/2020 4:56 PM MECHANICAL DESIGN DRAFTER [facility] TOTAL PROTEIN 7.0 6.0 - 8.3 g/dL 05/01/2020 4:56 PM MECHANICAL DESIGN DRAFTER [facility] ALBUMIN 4.4 3.5 - 5.2 g/dL 05/01/2020 4:56 PM MECHANICAL DESIGN DRAFTER [facility] Comment: The colormetric methods used for the determination of Albumin may lead to falsely elevated test results in patients suffering from renal failure or insufficiency due to interference with other proteins. Blood Venipuncture / Unknown 05/01/2020 4:25 PM MECHANICAL DESIGN DRAFTER 05/01/2020 4:32 PM MECHANICAL DESIGN DRAFTER us Maribel Kitchen MD CHEMISTRY ORDERABLES Final Re sult [facility] [address] [place] [address] documented in this encounter Visit Diagnoses Diagnosis Liver lesion- Primary Other specified disorders of liver Focal nodular hyperplasia determined by liver biopsy NAFLD (nonalcoholic fatty liver disease) Other chronic nonalcoholic liver disease Morbid obesity documented in this encounter Additional Health Concerns Infection Onset Date Last Indicated Resolved Time COVID - 19 Confirmed 05/04/2020 05/04/2020 021 12:18 AM MECHANICAL DESIGN DRAFTER documented as of this encounter Care Teams Phone Engineer Relationship Specialty Start Date End Date Jonelle Elam MD [address] [place] [id number] PCP - General Family Medicine 02/22/15 05/06/24 Vipin Bedoya DO [address] [place] [address] [place] [address] PCP - General Internal Medicine 05/07/24 documented as of this encounter
--- OUTSIDE RECORDS SUMMARY | 2025-01-03 18:11 | XMS_ITS | Data Portability ---
Author Organization [place] - [facility] Intern, Main Office Address [address] [place] [address] Assessment Encounter Date Assessment Date Assessment LastModified by Organization Details LastModified Time 08/03/2022 08/03/2022 Service was provided using telemedicine. Patient verbally consents to telemedicine services. The patient verbally consents to using virtual check-in and the consent is documented in the medical record prior to using the service. Patient is located at home. Provider is located at [facility]. Names and roles of all persons participating in telemedicine services include Antonette Roy (provider), Deya Campbell (patient). The patient had a 16 minute TeleMedicine consultation via [employer] to discuss the following: [email or web address] Not available 08/03/2022 15:34:08 08/18/2022 08/18/2022 Service was provided using telemedicine. Patient verbally consents to telemedicine services. The patient verbally consents to using virtual check-in and the consent is documented in the medical record prior to using the service. Patient is located at home. Provider is located at [facility]. Names and roles of all persons participating in telemedicine services include Antonette Roy (provider), Deya Campbell (patient). The patient had a 11 minute TeleMedicine consultation via [employer] to discuss the following: [email or web address] Not available 08/18/2022 15:59:02 Plan of Treatment Reminders Order Date Submit Date Provider Last Modified By Organization Details Last Modified Time Details Appointments None recorded. Lab TSH, serum or plasma 2022 023 [email or web address] [facility], [address] [place], [address], 17:50:21 HbA1c (hemoglobin A1c), blood 04/07/ 2023 04/07/2 023 [email or web address] [id number] [facility], [address] [place], [address], 3 14:06:03 CBC [id number] [place] [address], [address] [place], [address], 3 17:50:48 CMP, serum or plasma [id number] [place] [address], [address] [place], [address], 3 17:51:06 Referral None recorded. Procedures None recorded. Surgeries None recorded. Imaging None recorded. Medication Orders Trulicity 3 mg/0.5 mL subcutaneou s pen injector 2022 023 [id number], [address], [place], [place], [id number], 3 11:30:34 Trulicity 1.5 mg/0.5 mL subcutaneou s pen injector 2022 023 [facility] #[id number], [address], [place], [place], [id number], 3 15:57:58 Trulicity 0.75 mg/0.5 mL subcutaneou s pen injector 2022 023 [facility] #[id number], [address], [place], [place], [id number], 3 15:39:29 duloxetine 20 mg capsule,del ayed release 2022 023 [facility] #[id number], [address], [place], [place], [id number], 17:31:54 Patient TargetsNo targets recorded. Patient Instructions Encounter Date Encounter Id Patient Instructions Last Modified By Organization Details Last Modified Time 08/03/2022 [id number] Due to the COVID-19 (Novel Coronavirus) pandemic, it is within this context (and with the understanding that this method of patient encounter is in the patient s best interest as well as the health and safety of other patients and the public) that [facility] is being provided for this patient encounter rather than a jioi-vl-iysu visit. This patient encounter is appropriate at this time. This patient has been advised of the potential risks and limitations of this mode of treatment (including, but not limited to, the absence of in-person examination) and has agreed to be treated in a remote fashion despite these risks. Any and all of the patient s /patient s family s questions on this issue have been [...] what can be accomplished by patient directed video recording based on instruction. Those limits are understood by the patient and myself. Impression is based on history, available information, and physical findings accomplished with video assist. Chronic disease/problem list/medication list reviewed and updated where indicated. Discussed diagnosis, plan including risks, benefits and options of treatment. Advised to call for new, worsening or persistent symptoms. Level of patient risk was of moderate complexity due to the documented nature of presentation, [...] medications were discussed and all questions answered. [email or web address] Not available 08/03/2022 15:30:47 08/18/2022 [id number] Due to the COVID-19 (Novel Coronavirus) pandemic, it is within this context (and with the understanding that this method of patient encounter is in the patient s best interest as well as the health and safety of other patients and the public) that [facility] is being provided for this patient encounter rather than a xtkb-jm-agsa visit. This patient encounter is appropriate at this time. This patient has been advised of the potential risks and limitations of this mode of treatment (including, but not limited to, the absence of in-person examination) and has agreed to be treated in a remote fashion despite these risks. Any and all of the patient s /patient s family s questions on this issue have been [...] what can be accomplished by patient directed video recording based on instruction. Those limits are understood by the patient and myself. Impression is based on history, available information, and physical findings accomplished with video assist. Chronic disease/problem list/medication list reviewed and updated where indicated. Discussed diagnosis, plan including risks, benefits and options of treatment. Advised to call for new, worsening or persistent symptoms. Level of patient risk was of moderate complexity due to the documented nature of presentation, [...] discussed and all questions answered. Not available 08/18/2022 15:58:36 Reason for Referral None Reported. Results Created Date Observation Date Name Description Value Unit Range Abnormal Flag Note LastModifiedBy Organization Detail LastModifiedTime 07/13/19 23 07/12/2022 CBC W/O DIFFE MARGAUX MONROE white blood cells 7.1 x10'3 /uL 4.2-10 .8 Not Available [facility] (Lab) [address] [place], [address], 07/12/2022 19:22:55 07/13/19 23 07/12/2022 CBC W/O DIFFE RENTI AL red blood cells 4.69 x10'6 /uL 3.80-5 .20 Not Available [facility] (Lab) [address] [place], [address], 07/12/2022 19:22:55 07/13/19 23 07/12/2022 CBC W/O DIFFE RENTI AL hemoglobin 12.8 g/dL 12.0-1 5.6 Not Available [facility] (Lab) [address] [place], [address], 07/12/2022 19:22:55 07/13/19 23 07/12/2022 CBC W/O DIFFE RENTI AL hematocrit 42.9 % 35.7-4 5.7 Not Available [facility] (Lab) [address] [place], [address], 07/12/2022 19:22:55 07/13/19 23 07/12/2022 CBC W/O DIFFE RENTI AL mean red cell volume 91.5 fL 82.0-9 9.0 Not Available [facility] (Lab) [address] [place], [address], 07/12/2022 19:22:55 07/13/19 23 07/12/2022 CBC W/O DIFFE RENTI AL mean red cell hemoglobin 27.3 pg 27.0-3 3.0 Not Available [facility] (Lab) [address] [place], [address], 07/12/2022 19:22:55 07/13/19 23 07/12/2022 CBC W/O DIFFE RENTI AL mean RBC HGB concentratio n 29.8 g/dL 31.0-3 6.0 low Not Available [facility] (Lab) [address] [place], [address], 07/12/2022 19:22:55 07/13/19 23 07/12/2022 CBC W/O DIFFE RENTI AL red cell distribution width 14.1 % 11.8-1 5.5 Not Available [facility] (Lab) [address] [place], [address], 07/12/2022 19:22:55 07/13/19 23 07/12/2022 CBC W/O DIFFE RENTI AL platelets 371 x10'3 /uL 150-40 0 Not Available [facility] (Lab) [address] [place], [address], 07/12/2022 19:22:55 07/13/19 23 07/12/2022 CBC W/O DIFFE RENTI AL mean platelet volume 10.2 fL 9.0-12 .4 Not Available [facility] (Lab) [address] [place], [address], 07/12/2022 19:22:55 07/13/19 23 07/12/2022 COMPR EHENS TODD METAB OLIC PANEL sodium 137 mmol/ L 137-14 5 Not Available [facility] (Lab) [address] [place], [address], 07/12/2022 19:40:24 07/13/19 23 07/12/2022 COMPR EHENS TODD METAB OLIC PANEL potassium 4.8 mmol/ L 3.5-5. 1 Not Available [facility] (Lab) [address] [place], [address], 07/12/2022 19:40:24 07/13/19 23 07/12/2022 COMPR EHENS TODD METAB OLIC PANEL chloride 100 mmol/ L 98-107 Not Available [facility] (Lab) [address] [place], [address], 07/12/2022 19:40:24 07/13/19 23 07/12/2022 COMPR EHENS TODD METAB OLIC PANEL carbon dioxide 27 mmol/ L 22-30 Not Available [facility] (Lab) [address] [place], [address], 07/12/2022 19:40:24 07/13/19 23 07/12/2022 COMPR EHENS TODD METAB OLIC PANEL anion gap 14.8 mmol/ L 14-22 Not Available [facility] (Lab) [address] [place], [address], 07/12/2022 19:40:24 07/13/19 23 07/12/2022 COMPR EHENS TODD METAB OLIC PANEL glucose 108 mg/dL 70-99 high Not Available [facility] (Lab) [address] [place], [address], 07/12/2022 19:40:24 07/13/19 23 07/12/2022 COMPR EHENS TODD METAB OLIC PANEL BUN 14 mg/dL 8-19 Not Available [facility] (Lab) [address] [place], [address], 07/12/2022 19:40:24 07/13/19 23 07/12/2022 COMPR EHENS TODD METAB OLIC PANEL creatinine 0.65 mg/dL 0.66-1 .25 low Not Available [facility] (Lab) [address] [place], [address], 07/12/2022 19:40:24 07/13/1907/12/2022 COMPR EHENS TODD METAB OLIC PANEL GFR >60 Refer ence Range : [place] ge GFR Healt hy Adult : >60 [...] calcu lator is avail able on the [facility] websi te: https ://ww w.kid bienvenido.o rg/pr ofess ional s/kdo qi/gf r_cal culat or Not Available [facility] (Lab) [address] [place], [address], 07/12/2022 19:40:24 07/13/19 23 07/12/2022 COMPR EHENS TODD METAB OLIC PANEL alkaline phosphatase 63 U/L 38-[address] [facility] (Lab) [address] [place], [address], 07/12/2022 19:40:24 07/13/19 23 07/12/2022 COMPR EHENS TODD METAB OLIC PANEL alanine aminotransfe rase 35 U/L 0-35 Not Available [facility] (Lab) [address] [place], [address], 07/12/2022 19:40:24 07/13/19 23 07/12/2022 COMPR EHENS TODD METAB OLIC PANEL aspartate aminotransfe rase 30 U/L 15-37 Not Available [facility] (Lab) [address] [place], [address], 07/12/2022 19:40:24 07/13/19 23 07/12/2022 COMPR EHENS TODD METAB OLIC PANEL bilirubin, total 0.50 mg/dL 0.20-1 .30 Not Available [facility] (Lab) [address] [place], [address], 07/12/2022 19:40:24 07/13/19 23 07/12/2022 COMPR EHENS TODD METAB OLIC PANEL calcium 9.3 mg/dL 8.4-10 .2 Not Available [facility] (Lab) [address] [place], [address], 07/12/2022 19:40:24 07/13/19 23 07/12/2022 COMPR EHENS TODD METAB OLIC PANEL total protein 7.6 g/dL 6.3-8. 2 Not Available [facility] (Lab) [address] [place], [address], 07/12/2022 19:40:24 07/13/19 23 07/12/2022 COMPR EHENS TODD METAB OLIC PANEL albumin 4.6 g/dL 3.4-5. 0 Not Available [facility] (Lab) [address] [place], [address], 07/12/2022 19:40:24 07/13/19 23 07/12/2022 COMPR EHENS TODD METAB OLIC PANEL globulin 3.0 g/dL 2.6-4. 2 Not Available [facility] (Lab) [address] [place], [address], 07/12/2022 19:40:24 07/13/19 23 07/12/2022 COMPR EHENS TODD METAB OLIC PANEL A/G ratio 1.5 ratio 1.0-2. 0 Not Available [facility] (Lab) [address] [place], [address], 07/12/2022 19:40:24 07/13/19 23 07/12/2022 HEMOG LOBIN A1C HA1C 5.6 % 4.0-6. 0 Diabe regine Scree chetna Crite martina: <5.7% Consi stent with absen ce of diabe regine 5.7-6 .4% Consi stent with incre ased risk for diabe regine (pred iabet es) >OR=6 .5% Consi stent with diabe regine REFER ENCE: Diabe regine Care 2016, 39(Landeros ppl.1 ):s13 -s22 Not Available [facility] (Lab) [address] [place], [address], 07/12/2022 19:58:49 07/13/19 23 07/12/2022 TSH thyroid-stim ulating hormone 2.650 uIU/m L 0.465- 4.680 Not Available [facility] (Lab) [address] [place], [address], 07/12/2022 20:06:51 06/30/19 23 06/29/2022 XR, lumba r spine No observ ation record ed. [facility] [address] [place], [address], 07/04/2022 14:20:37 Result Notes None recorded. Problems Name Problem SNOMED Code Status Onset Date Resolution Date Notes Provider Name and Address Organization Details Recorded Time Computed tomography result abnormal 896981545 Active Not Available [facility] 3 09:16:23 Blood chemistry outside reference range 949185449 Active Not Available [facility] 3 09:16:23 Blood glucose outside reference range 969833932 Active Not Available [facility] 3 09:16:23 Anxiety state 783580493 Active Not Available [facility] 3 09:16:23 Abdominal pain 35225919 Active Not Available [facility] 3 09:16:23 Edema 262574269 Active Not Available [facility] 3 09:16:23 Lesion of liver 412877470 Active Not Available [facility] 3 09:16:23 Pain in calf 899810991 Active Not Available [facility] 3 09:16:23 Obesity 727417831 Active Not Available [facility] 3 09:16:23 Swelling of lower leg 734538467 Active Not Available [facility] 3 09:16:23 Hyperglycemia 65862538 Active Not Available [facility] 3 09:16:24 Fatigue 88904617 Active Not Available [facility] 3 09:16:24 Iron deficiency anemia 92470842 Active Not Available [facility] 3 09:16:24 Hyperlipidemi a 70784702 Active 2017 Not Available [facility] 3 09:16:23 Essential hypertension 95154754 Active 2019 Not Available [facility] 3 09:16:24 Mixed anxiety and depressive disorder 557518387 Active 2022 SUKHI Gongora [address], [place], [address] , [employer] 3 16:28:33 Peripheral vascular disease 941316047 Active 2022 SUKHI Gongora [address], [place], [address] , [employer] 3 20:09:45 Renal impairment 126655165 Active 2022 SUKHI Gongora [address], [place], [address] , [employer] 3 17:29:45 Prediabetes 141259290 Active 2022 SUKHI Gongora [address], [place], [address] , [employer] 3 15:23:58 Problem Notes None recorded. Medical Equipment None Reported. Allergies Allergen ID Allergen Name Allergen Category Reaction Reaction Severity Criticality Documentation Date Start Date Code Code System Note Provider Name and Address Organization Details Recorded Time 88329 levofloxa kd medicatio n hives Not available Not available 06/01/20222018 38748 RxNorm Not Available [facility] 3 09:18:50 66797 labetalol medicatio n Not available Not available Not available 06/01/2022 6185 RxNorm Not Available [facility] 3 09:18:50 17454 Keflex medicatio n rash Not available Not available 06/01/2022 46381 7 RxNorm Not Available [facility] 3 09:18:50 79267 Lexapro medicatio n Not available Not available Not available 07/08/2022 18843 1 RxNorm Pily Calderon RN null, [place] [facility] [place] [employer] [facility] 3 17:14:07 Medications Name Sig Start [...] in Arterial blood by Pulse oximetry Systolic And Diastolic Provider Name and Address Organization Details Last Updated DateTime 3 157.48 cm 62.7 kg/m2 994619. 18 g 96.4 [degF] 79 /min 99 % 99 % 122/88 mm[Hg] Pily Calderon RN [facility] [employer] [facility] 3 17:13:50 Date Recorded Body height Body mass index (BMI) Body weight Heart rate Systolic And Diastolic Provider Name and Address Organization Details Last Updated DateTime 08/03/2022 157.48 cm 60.7 kg/m2 794657.6 7 g 73 /min 131/65 mm[Hg] Pily Calderon RN [facility] [employer] [facility] 08/03/2022 14:51:30 Date Recorded Body height Body mass index (BMI) Body weight Heart rate Systolic And Diastolic Provider Name and Address Organization Details Last Updated DateTime 08/18/2022 157.48 cm 60 kg/m2 546562.3 g 91 /min 118/62 mm[Hg] Pily Calderon RN [facility] [employer] [facility] 08/18/2022 15:32:13 Date Recorded Body height Body mass index (BMI) Body weight Body temperature Heart rate Oxygen saturation Oxygen saturation in Arterial blood by Pulse oximetry Systolic And Diastolic Provider Name and Address Organization Details Last Updated DateTime 3 157.48 cm 59.1 kg/m2 697979. 34 g 96.2 [degF] 84 /min 96 % 96 % 128/84 mm[Hg] BOBBY Candelaria [facility] [employer] [facility] 3 11:13:59 Date Recorded Body height Body mass index (BMI) Body weight Body temperature Heart rate Oxygen saturation Oxygen saturation in Arterial blood by Pulse oximetry Systolic And Diastolic Provider Name and Address Organization Details Last Updated DateTime 157.48 cm 58.3 kg/m2 738846. 97 g 98.5 [degF] 88 /min 96 % 96 % 128/80 mm[Hg] BOBBY Candelaria [facility] [employer] [facility] 3 11:37:43 Social History Question Answer Notes LastModified by [employer] ion Details LastModified Time Tobacco Smoking Status Never Smoker Not Available [facility] 06/01/2022 09:13:40 If You Are , What Was Your Level Of Alcohol Consumption Prior To ? None [id number] Information not available 06/01/2022 What Is Your Level Of Caffeine Consumption? Occasional [id number] Information not available 06/01/2022 In The 14 Days Before Symptom Onset, Have You Had Close Contact With A Laboratory-confirm ed COVID-19 While That Case Was Ill? No [id number] Information not available 06/01/2022 In The 14 Days Before Symptom Onset, Have You Had Close Contact With A Person Who Is Under Investigation For COVID-19 While That Person Was Ill? No [id number] Information not available 06/01/2022 What Type Of Diet Are You Following? REGULAR [id number] Information not available 06/01/2022 Do You Use Your Seat Belt Or Car Seat Routinely? Yes Information not available 08/03/2022 Do You Participate In Social Media? Yes Information not available 08/03/2022 Has Tobacco Cessation Counseling Been Provided? No [id number] Information not available 06/01/2022 Do You Have Any Dietary Restrictions? No [id number].[id number] Information not available 06/01/2022 Sex: Unknown Functional Status Question Answer Note LastModified by Organizat ion Details LastModified Time Do you use any illicit or recreational drugs? No [id number] 26 Information not available 06/01/2022 Do you or have you ever used any other forms of tobacco or nicotine? No [id number].[id number] 26 Information not available 06/01/2022 What is your level of alcohol consumption? None MIGRATION.[id number] 26 Information not available 06/01/2022 What is your exercise level? None [id number] 26 Information not available 06/01/2022 Mental Status Question Answer Note LastModified by Organization D etails LastModified Time Do you feel stressed (tense, restless, nervous, or anxious, or unable to sleep at night)? [id number] Information not available 08/03/2022 Family History Relationship Description Onset Age of this Age Resolved Age Notes LastModified by Organization Details LastModified Time Mother Family history of malignant neoplasm [id number] Not available 06/01/2022 09:13:48 Father Family history of malignant neoplasm [id number].577 [id number] Not available 06/01/2022 09:13:48 Father Congestive heart failure [id number].892 [id number] Not available 06/01/2022 09:13:48 Son Hypertensive disorder [id number].354 [id number] Not available 06/01/2022 09:13:48 Medical History No [...] virus, trivalent, PF 3 completed Not Available [facility] 06/01/2022 09:18:42 Influenza, split virus, quadrivalent, PF 9 completed Not Available [facility] 06/01/2022 09:18:42 Influenza, split virus, quadrivalent, PF 8 completed Not Available [facility] 06/01/2022 09:18:42 Influenza, split virus, quadrivalent, preservative 6 completed Not Available [facility] 06/01/2022 09:18:43 Influenza, split virus, quadrivalent, PF 7 completed Not Available [facility] 06/01/2022 09:18:43 Influenza, split virus, quadrivalent, PF 4 completed Not Available [facility] 06/01/2022 09:18:43 Influenza, split virus, quadrivalent, PF 0 completed Not Available [facility] 06/01/2022 09:18:43 Influenza, split virus, quadrivalent, PF 5 completed Not Available [facility] 06/01/2022 09:18:43 Past Encounters Encounter ID Performer Location Encounter Start Date Encounter Closed Date Diagnosis/Indication Diagnosis SNOMED-CT Code Diagnosis ICD10 Code Diagnosis IMO Codes Diagnosis Note [id number] Jonelle Elam MD [facility] [place] [address] [place] [address] 10/30/2020 00:00:00 10/30/2020 18:19:27 [id number] Jonelle Elam MD [facility] Primary [facility] [place] [address] [place] [address] 12/01/2020 00:00:00 12/01/2020 21:48:24 [id number] Jonelle Elam MD [facility] Primary [facility] [place] [address] [place] [address] 12/29/2020 00:00:00 12/29/2020 17:12:29 [id number] SKY Ness [facility] [place] [address] [place] [address] 05/12/2021 00:00:00 05/12/2021 14:27:53 [id number] SUKHI Gongora [facility] [place] [address] [place] [address] 07/15/2021 00:00:00 07/15/2021 20:39:28 [id number] SUKHI Gongora [facility] Primary Care [facility] [address] [facility] [address] [place] [address] 06/02/2022 15:44:21 06/02/2022 17:31:29 Mixed anxiety and depressive disorder 183451314 F41.8 Not well controlled with current dose of Lexapro. Since pt c/o having bruxism with the Lexapro will give trial of Duloxetine instead. Advised to take 1/2 tab of the Lexapro for the next week, then stop. Highly encouraged pt to pursue counseling . Denies any SI/HI at this time. Discussed s/s that warrant emergency evaluation . Obesity 938370908 E66.9 Not improved despite report of dieting/li [...] Try to keep daily calorie count btw 4359-6739 calories. May need to consider referral to cold meat cook/ nutritioni st as well.Pt would be good candidate for GLP-1 as she also struggles with pcos/hyper glycemia. Peripheral vascular disease 306764631 I73.9 Chronic s/p stent placementC ontinue to f/u with cardiology /vascular as scheduled directed Lesion of liver 76753789 0 K76.9 ChronicMan aged by hepatology . [id number] SUKHI Gongora [facility] [address] [place] [address] 07/08/2022 17:05:57 07/08/2022 17:48:50 Mixed anxiety and depressive disorder 586592952 F41.8 Much improved with starting duloxetine .Stopped lexapro due to c/o having bruxism. Highly encouraged pt to pursue counseling . Denies any SI/HI at this time. Discussed s/s that warrant emergency evaluation .Continue duloxetine 20mg BID Obesity 895381192 E66.9 Minimal improvemen t despite report of [...] eat.Try to keep daily calorie count btw 4484-5389 calories. May need to consider referral to cold meat cook/ nutritioni st as well.Pt would be good candidate for GLP-1 as she also struggles with pcos/hyper glycemia. Poor candidate for metformin d/t renal impairment . Peripheral vascular disease 909176241 I73.9 Chronic s/p stent placementC ontinue to f/u with cardiology /vascular as scheduled directed. Lesion of liver 04363372 0 K76.9 ChronicMan aged by hepatology . Renal impairment 8207456 03 N28.9 New problem per patient reportDue to risk of worsening renal function, advised pt to stop taking metformin. [id number] Jonelle Elam MD [facility] [address] [place] [address] 08/03/2022 14:47:39 08/03/2022 16:15:27 Obesity 502281949 E66.9 Minimal improvemen t despite report of [...] Try to keep daily calorie count btw 9307-1849 calories. Pt would be good candidate for [...] processes. Mixed anxi ety and depressive disorder 875815290 F41.8 Much improved with starting duloxetine .Stopped lexapro due to c/o having bruxism. Highly encouraged pt to pursue counseling . Denies any SI/HI at this time. Discussed s/s that warrant emergency evaluation .Continue duloxetine 20mg BID Renal impairment 6421203 03 N28.9 Creat 0.65 (07/12/22)D ue to risk of worsening renal function, advised pt to stop taking metformin. Trulicity should help with insulin resistance and reduce risk of worsening renal dysfunctio n. Peripheral vascular disease 230357014 I73.9 Chronic s/p stent placementC ontinue to f/u with cardiology /vascular as scheduled directed. Lesion of liver 35469352 0 K76.9 ChronicMan aged by hepatology . Prediabetes 147153170 R7 3.03 Improving slightly with diet/exerc ise, [...] Will start trial of trulicity 0.75mg weekly. [id number] SUKHI Gongora [facility] Cece godinez [address] [facility] [address] [facility] [place] [address] 08/18/2022 15:24:00 08/18/2022 16:33:05 Prediabetes 091177219 R73.03 Improved slightly with diet/exerc ise, but [...] at the end of the month. Obesity 195860466 E66.9 Minimal improvemen t despite report of [...] Try to keep daily calorie count btw 8818-4038 calories. Continue with GLP-1 as she also [...] the aforementi oned disease processes. Renal impairment 5312215 03 N28.9 Creat 0.65 (07/12/22)D ue to risk of worsening renal function, advised pt to stop taking metformin. Trulicity should help with insulin resistance and reduce risk of worsening renal dysfunctio n. Mixed anxi ety and depressive disorder 247448579 F41.8 Much improved with starting duloxetine .Stopped lexapro due to c/o having bruxism. Highly encouraged pt to pursue counseling . Denies any SI/HI at this time. Discussed s/s that warrant emergency evaluation .Continue duloxetine 20mg BID Bereavement 17371013 Z63 .4 New problemGri eving of step-siste r, stressing about pending divorce.Hi ghly encouraged pt to consider counseling .Continue with mental health medication s as directed. [id number] SUKHI Gongora [facility] [address] [facility] [address] [place] [address] 09/29/2022 11:09:11 09/29/2022 11:36:21 Prediabetes 580695902 R73.03 Improved slightly with diet/exerc ise, but [...] Will increase Trulicity to 3.0mg weekly Obesity 584653183 E66.9 ImprovingD own 20# since July with [...] Try to keep daily calorie count btw 2532-8568 calories. Continue with GLP-1 as she also [...] with the aforementi oned disease processes. Bereavement 51219837 Z63 .4 No change since last visit.Grie ving of step-siste r, stressing about pending divorce.Hi ghly encouraged pt to consider counseling .Continue with mental health medication s as directed. Renal impairment 1844567 03 N28.9 ChronicCre at 0.65 (07/12/22)D ue to risk of worsening renal function, advised pt unable to take metformin. Trulicity should help with insulin resistance and reduce risk of worsening renal dysfunctio n. 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 Highly encouraged pt to pursue counseling . Denies any SI/HI at this time. Discussed s/s that warrant emergency evaluation .Continue duloxetine 20mg BID Divorce pr oceedings pending 154026489 Z63.5 StablePt reports cordial relationsh ip with estranged .Re ports she is seeing someone new. [id number] SUKHI Gongora [facility] Cece godinez [address] [facility] [address] [place] [address] 10/27/2022 11:21:52 10/27/2022 13:57:22 Prediabetes 727941124 R73.03 Improving with Trulicity 3mg weekly.Onl y [...] processes. Continue Trulicity to 3.0mg weekly Obesity 840937989 E66.9 ImprovingD own 24# since July with [...] Try to keep daily calorie count btw 3543-4753 calories. Continue with GLP-1 as she also [...] the aforementi oned disease processes. Renal impairment 1539923 03 N28.9 ChronicCre at 0.65 (07/12/22)D ue to risk of worsening renal function, advised pt unable to take metformin. Trulicity should help with insulin resistance and reduce risk of worsening renal dysfunctio n. Mixed anxi ety and depressive disorder 264170671 F41.8 Stable with duloxetine .Stopped lexapro due to c/o having bruxism. Highly encouraged pt to pursue counseling . Denies any SI/HI at this time. Discussed s/s that warrant emergency evaluation .Continue duloxetine 20mg BID Divorce pr oceedings pending [id number] Z63.5 StablePt reports cordial relationsh ip with estranged .Re ports she is seeing someone new. Health Concerns Section Related Observation LastModified by Organization Detai ls LastModified Time None Recorded Concern Status LastModified by Organization Details LastModified Time None Recorded Advance Directives Directive None Recorded Payers Insurance Date Sequence Insurance Name Policy Number Policy Mcconnell Covered Member ID Mcconnell Member ID Guarantor Name 12/26/2023 1 [facility] (MEDICAID HMO) [id number] Deya Campbell [id number] Deya Campbell 12/26/2023 [facility] Deya Campbell SELF SELF Deya Campbell Notes Date Note Type Note [...] video/phone conference. Verbal consent witnessed by medical claims processor name Antonette Roy (provider).2. Pt presents for [...] swelling, stents in her legs. Antonette Roy, HOME SALES CONSULTANT [address] [facility], [place], [address], [place] [facility] [employer] 07/08/2022 20:59:49 08/03/2022 text/html 08/03/22: 1. Pt [...] video/phone conference. Verbal consent witnessed by medical claims processor name Antonette Roy (provider).2. Pt presents for [...] swelling, stents in her legs. Antonette Roy, HOME SALES CONSULTANT [address] [facility], [facility] [address], [place], [address], [place] [facility] [employer] 08/03/2022 17:26:52 08/18/2022 text/html 08/18/22: 1. Pt [...] video/phone conference. Verbal consent witnessed by medical claims processor name Antonette Roy (provider).2. Pt presents for [...] swelling, stents in her legs. Antonette Roy, HOME SALES CONSULTANT [address] [facility], [place], [address], [facility] 08/18/2022 18:10:21 09/29/2022 text/html 09/29/22: 1. Pt in office for 6 [...] video/phone conference. Verbal consent witnessed by medical claims processor name Antonette Roy (provider).2. Pt presents for [...] swelling, stents in her legs. Antonette Roy, HOME SALES CONSULTANT [address] [facility], [facility] [address], [place], [address], [place] [facility] [employer] 09/29/2022 13:33:25 10/27/2022 text/html 10/27/22: 1. Pt in office with family for f/u on weight [...] video/phone conference. Verbal consent witnessed by medical claims processor name Antonette Roy (provider).2. Pt presents for [...] swelling, stents in her legs. Antonette Roy, HOME SALES CONSULTANT [address] [facility], [facility] [address], [place], [address], [place] [facility] 10/27/2022 19:15:53 OBGyn Episode No OBEpisode recorded.
--- OUTSIDE RECORDS SUMMARY | 2025-01-03 18:11 | XMS_ITS | Encounter Summary ---
Author Organization [facility] Address [address] [place] [address] Care Team Providers Care Student Life Vice President Name Role Phone Jonelle Elam MD Primary Care Provider [phone] Manju Rainey DO Unavailable Skylar Canales PA-C Unavailable [phone] Encounter Details Date Type Department Care Team (Late st Contact Info) Description 01/08/2019 Telephone [facility] [address] [place] [id number] Arianna Lane RN Social History Tobacco Use [...] have been done at, but neither hospital ([place] or [place]) has record of MRI there. Advised pt we wouldbe calling her to schedule a new MRI, pt understands and is ok with this. documented in this encounter Plan of Treatment Not on file documented as of this encounter Visit Diagnoses Not on filedocumented in this encounter Care Teams Student Life Vice President Relationship Specialty Start Date End Date Jonelle Elam MD [address] [place] [address] PCP - General Family Medicine 10/24/18 Manju Rainey DO [address] [place] [address] Bariatrics 08/11/20 Skylar Canales PA-C [address] [facility] [address] [facility] [address] Physician Bottom Stainer Nephrology 03/04/22 documented as of this encounter
--- OUTSIDE RECORDS SUMMARY | 2025-01-03 18:11 | XMS_ITS | Clinical Summary ---
Author Organization [facility] Address [address] [place] [address] Care Team Providers Care Relations Manager Name Role Phone Vipin Bedoya DO Primary Care Provider [phone] Allergies Active Allergy Reactions Criticality Noted Date [...] and anxiety disorder. 4. Ongoing assessment at [facility] visits. Last Assessment & Plan: Condition: stable Follow up in: if symptoms worsen or fail to improve Cataracts, bilateral 01/02/2019 Overview (10/16/2023): Has artificial lens in left eye Last Assessment & Plan: Having decreased nighttime vision Maternal Medicine recommendations: 1. recommend follow-up with glass decorator GERD (gastroesophageal reflux disease) 9 Overview (10/16/2023): [...] testing every trimester--to be ordered by primary pumping station engineer, please send copy of recent results. 2. Follow up with GI as recommended in fall for repeat MRI and fibroscan. Hyperlipidemia 05/08/2017 Lumbar herniated disc 04/03/2014 Overview (10/16/2023): Last Assessment & Plan: Remains bothersome with use of maternity support belt. Denies any falls. Has PT referral and has not made appointment. Swimming with some relief. [facility] Plan: 1. 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
--- OUTSIDE RECORDS SUMMARY | 2025-01-03 18:11 | XMS_ITS | Clinical Summary ---
Author Organization [facility] Address [address] [place] [address] Care Team Providers Care Operations Assistant Name Role Phone Jonelle Elam MD Primary Care Provider [phone] Manju Rainey DO Unavailable [phone] Skylar Canales PA-C Unavailable [phone] [facility],non-owned Affiliates and Associated Physician Practices is amultiple site organization consisting of ambulatory clinics and hospital sitesin [place], [place], [place]. This disclosure is being madepursuant to the Care Everywhere program and may not contain all information available regarding this patient. Last updated 17.[facility] Allergies Active Allergy Reactions Criticality Noted Date [...] by mouth once daily APPT NEEDED CALL [phone] X 1 TO SCHEDULE 90 tablet 3 [...] due to NAEFD. Headaches have not worsened. [facility] Plan: 1. Reviewed headaches and if there is change to her current headache pattern, worsening, or persistent, she should be seen promptly for preeclampsia evaluation. 2. Start Riboflavin, increase fluid intake. Assessment & Plan (08/14/2019 4:27 PM CDT): Has not been able to pick remover riboflavin from her pharmacy. Maternal Medicine recommendations: 1. encouraged to look for an [id number] vitamin-B complex Assessment & Plan (07/03/2019 12:54 PM CDT): Intermittent headaches. Maternal Medicine recommendations: 1. reminded that she has a prescription for riboflavin for headache prevention Assessment & Plan (06/05/2019 5:54 PM RANCH RIDER): May be related to poor vision. Maternal Medicine recommendations: 1. should maintain follow-up with certified addiction counselor 2. Riboflavin prescribed for headache prevention Cataracts, bilateral 01/02/2019 Overview (06/05/2019): Has artificial lens in left eye Assessment & Plan (06/05/2019 1:27 PM RANCH RIDER): Having decreased nighttime vision Maternal Medicine recommendations: 1. recommend follow-up with certified addiction counselor NAFLD (nonalcoholic fatty liver disease) 019 Overview [...] testing every trimester--to be ordered by primary operating cost clerk, please send copy of recent results. 2. Follow up with GI as recommended in fall for repeat MRI and fibroscan. Assessment & Plan (08/14/2019 4:26 PM CDT): Remains at risk for complications of related to pre-existing liver disease and suspected chronic hypertension. Maternal Medicine recommendations: 1. Serial liver function testing every trimester--to be ordered by primary operating cost clerk 2. please forward a copy of the glucose challenge test results Assessment & Plan (06/05/2019 5:50 PM RANCH RIDER): Unremarkable LFTs. Remains at risk for complications of related to pre-existing liver disease and suspected chronic hypertension. Maternal Medicine recommendations: 1. Serial liver function testing every trimester--to be ordered by primary operating cost clerk GERD (gastroesophageal reflux disease) 9 Lumbar herniated disc 04/03/2014 Assessment & Plan (08/28/2019 12:41 PM CDT): Remains bothersome with use of maternity support belt. Denies any falls. Has PT referral and has not made appointment. Swimming with some relief. [facility] Plan: 1. Again encouraged to reach [...] belt Assessment & Plan (06/05/2019 5:49 PM RANCH RIDER): Having significant pain at night after exercise [...] fiber Assessment & Plan (06/05/2019 5:41 PM RANCH RIDER): Maternal Medicine recommendations: 1. nutrition counseling--initiated today 2. Encouraged to increase dietary fiber Sleep apnea Overview (06/05/2019): Has not had a sleep study Assessment & Plan (08/14/2019 4:25 PM CDT): Previously instructed to have evaluation for sleep apnea Assessment & Plan (06/05/2019 5:49 PM RANCH RIDER): instructed to have evaluation for sleep apnea [...] elizabeth Non-reac tive 01/02/2019 1:33 PM CDT [facility] Comment: Hepatitis C Antibody screen indicates [...] MD LAB - CHEMISTRY ORDERABLES nal Result [address] [phone] from Last 3 Months or Most Recently Relevant to Health Maintenance Insurance [facility] * Guarantor: MARY CARMEN ABEL Account Type Relation to Patient Date of Phone Billing Address Personal/Family [address] [address] Care Teams Operations Assistant Relationship Specialty Start Date End Date Jonelle Elam MD [address] [place] [address] [place] [address] PCP - General Family Medicine 10/24/18 Manju Rainey DO [address] [place] [address] Bariatrics 08/11/20 Skylar Canales PA-C [address] [facility] [address] [address] Physician Coagulating Operator Nephrology 03/04/22
--- OUTSIDE RECORDS SUMMARY | 2025-01-03 18:11 | XMS_ITS | Clinical Summary ---
Author Organization [facility] Address [address] [place] [address] Phone Care Team Providers Care Mohs Surgeon/General Dermatologist Name Role Phone Vipin Bedoya DO Primary [...] on file Legal Sex Female 10:30 PM SCCM ADMINISTRATOR Gender Identity Not on file Sexual Orientation Not on file Last Filed Vital Signs Vital Sign Reading Time Taken Comments Blood Pressure 170/90 05/07/2024 8:00 PM SCCM ADMINISTRATOR Pulse 75 05/07/2024 8:00 PM SCCM ADMINISTRATOR Temperature 37 C (98.6 F) 05/07/2024 8:00 PM SCCM ADMINISTRATOR Respiratory Rate 18 05/07/2024 8:00 PM SCCM ADMINISTRATOR Oxygen Saturation 100% 05/07/2024 8:00 PM SCCM ADMINISTRATOR Inhaled Oxygen Concentration - - Weight 122.5 kg (270 lb) 05/07/2024 7:11 PM SCCM ADMINISTRATOR Height 157.5 cm (5' 2) 05/07/2024 7:11 PM SCCM ADMINISTRATOR Body Mass Index 49.38 05/07/2024 7:11 PM SCCM ADMINISTRATOR Plan of Treatment Health Maintenance Due Date [...] DETECTED NON DETECTED 10/12/2018 9:[address] [facility] Comment: IGM Antibodies to HAV not detected. Does not exclude early acute or recovered HAV infection. HEP B CORE AB (IGM) NON DETECTED NON DETECTED 10/12/2018 9:[address] [facility] Comment: IGM anti-HBC not detected. Does not exclude the possibility of exposure to or infection with HBV. HEPATITIS B SURFACE ANTIGEN NON DETECTED NON DETECTED 10/12/2018 9:[address] [facility] Comment: A nonreactive test result [...] 0.07 <1 S/CO 10/12/2018 9:[address] [facility] Comment: Signal/Cutoff ratio < 0.79 is Nondetected Signal/Cutoff ratio 0.80-0.99 is Grayzone Signal/Cutoff ratio > 0.99 is Detected Supplemental assays are recommended if signal/cutoff ratio is >/=1.00. Signal/cutoff ratio result >/= 5.00 is 97% predictive of positivity for recombinant immunoblot assay (RIBA) and will be reported to the [place] Department of Public Health as required. Blood specimen (specimen) Venipuncture / Unknown 10/12/2018 9:56 AM CDT 10/12/2018 11:20 AM CDT us Charles Amezcua MD HEMATOLOGY ORDERABLES F inal Result [facility] [address] [place] [address], from Last 3 Months or Most Recently Relevant to Health Maintenance Insurance [facility] Care Teams Mohs Surgeon/General Dermatologist Relationship Specialty Start Date End Date Vipin Bedoya DO [facility] [facility] [place] [address] PCP - General Internal Medicine 05/07/24
--- NOTE | 2025-01-03 18:32 | ED.CHESTPAIN ---
HPI - Chest Pain General Chief Complaint: Chest Pain Stated Complaint: LIGHTHEADEDNESS ELEVATED BP OFF HER MEDS Time Seen by Provider: 01/03/25 17:32 History of Present Illness HPI narrative: Patient is a 29-year-old female who presents to the ER with complaints of chest pain. She reports she has been off her daily medications since September. Patient reports she took herself off her medications. She reports this morning she decided to regain control of her health and take all of her medications again. Patient reports her symptoms started today around 2:00 p.m. She reports her symptoms include chest pain, lightheadedness, lower back pain, redness/paleness, and vision changes earlier. Patient endorses a history of iliac stents, diverticulitis, high blood pressure, cataracts, liver problems and anxiety. She denies any recent fevers, abdominal pain, calf pain, or lower extremity swelling. Related Data Home Medications ?Medication ?Instructions ?Recorded ?Confirmed ?Last Taken ?Type amlodipine 10 mg tablet 10 mg PO DAILY 03/28/22 08/22/24 Unknown History losartan 100 mg tablet 100 mg PO DAILY 03/28/22 08/22/24 Unknown History spironolactone 25 mg tablet 25 mg PO DAILY 03/28/22 08/22/24 Unknown History furosemide 40 mg tablet 40 mg PO DAILY 08/03/23 08/22/24 Unknown History metoprolol tartrate 50 mg tablet 50 mg PO BID 08/03/23 08/22/24 Unknown History Adults Multivitamin 11/05/23 08/22/24 Unknown History Iud 11/05/23 08/22/24 Unknown History phentermine 37.5 mg capsule 37.5 mg PO DAILY 08/19/24 08/22/24 Unknown History Allergies Allergy/AdvReac Type Severity Reaction Status Date / Time cephalexin Allergy Mild Rash Verified 01/03/25 16:10 labetalol Allergy Unknown Swelling Verified 01/03/25 16:10 levofloxacin Allergy Hives Verified 01/03/25 16:10 nifedipine Allergy Rash Verified 01/03/25 16:10 Review of Systems Review of Systems: All systems reviewed & are unremarkable except as noted in HPI and below PMFSH Past Medical History Medical History Migraine Anxiety Anemia Acute asthma Hair loss Herniated disc Diverticulitis GERD (gastroesophageal reflux disease) Elevated cholesterol Hypertension Surgical History Surgical History H/O eye surgery History of tonsillectomy History of placement of ear tubes Family History Family History Father Heart disease COPD (chronic obstructive pulmonary disease) Asthma Diabetes mellitus Colon cancer Hypertension Depression Mother COPD (chronic obstructive pulmonary disease) Skin cancer Fibromyalgia Hypertension Depression Heart disease Son Antibody deficiency syndrome Asthma Hypertension Depression Grandparent Asthma Diabetes mellitus Hypertension Heart disease Social History Social History Smoking status: Never smoker Second hand tobacco smoke exposure: Yes Alcohol intake: never Substance use: never Substance use type: does not use Do You Feel Safe in your Home?: Yes Lack of Transportation: No Lack of Food: Never True Current Housing: I Have Housing Concerned About Future Housing: No Difficulty Paying Gas/Electric Bills: No Difficulty Paying for Meds: YES Currently Unemployed: No Education: Associate Degree Difficulty w/ Childcare or Family Care: No Living arrangements: with family Occupation/Education: occupation Gender identity (if verbalized by the patient): Female Sexual Orientation (if Verbalized by the Patient): Straight or Heterosexual Spiritual care concerns: No Agree to blood products: Yes Exam Narrative: GENERAL: Well appearing, obese, non-toxic, in no acute distress. HEAD: Normocephalic, atraumatic. NECK: Supple. No adenopathy, no masses. RESPIRATORY: Airway patent, respirations nonlabored. Clear to auscultation bilaterally, no rales, rhonchi, wheezing. CARDIOVASCULAR: Regular rate and rhythm without murmurs, rubs, or gallops. Peripheral pulses 2+ and equal bilaterally. ABDOMINAL: Soft, nontender, nondistended, no hepatosplenomegaly. Normoactive BS. MUSCULOSKELETAL: Moves all extremities. Strength/ROM intact without gross deformities. SKIN: Warm, dry, normal color. No rashes. NEURO: A&O X3. Speech clear. Cranial nerves II-XII intact. No ataxic movements. PSYCHIATRIC: Appropriate mood and affect. Normal interaction. Course Vital Signs Vital signs: Vital Signs Temperature 36.4 C 01/03/25 16:08 Pulse Rate 82 01/03/25 16:08 Respiratory Rate 20 01/03/25 16:08 Blood Pressure 160/113 H 01/03/25 16:08 Pulse Oximetry 100 01/03/25 16:08 Oxygen Delivery Room Air 01/03/25 16:08 Temperature 36.4 C 01/03/25 16:08 Pulse Rate 90 01/03/25 18:49 Respiratory Rate 18 01/03/25 18:49 Blood Pressure 177/94 H 01/03/25 18:49 Pulse Oximetry 99 01/03/25 18:49 Oxygen Delivery Room Air 01/03/25 16:08 MDM - Chest Pain MDM Narrative Medical decision making narrative: Patient is a 29-year-old female who presents to the ER with complaints of chest pain. She reports she has been off her daily medications since September. Patient reports she took herself off her medications. She reports this morning she decided to regain control of her health and take all of her medications again (losartan, metoprolol, Lasix, spironolactone, phentermine, Topamax, duloxetine, Norvasc). Patient reports her symptoms started today around 2:00 p.m. She reports her symptoms include chest pain, lightheadedness, lower back pain, redness/paleness, and vision changes earlier. Patient endorses a history of iliac stents, diverticulitis, high blood pressure, cataracts, liver problems and anxiety. She denies any recent fevers, abdominal pain, calf pain, or lower extremity swelling. Labs Ordered: CBC, CMP, lipase, troponin, UDS, UA, D-dimer, proBNP Imaging Ordered: Chest x-ray Medications Ordered: Tylenol 1 g p.o. (for headache), Macrobid p.o. Results: Patient's CBC and CMP indicates no acute abnormalities. Her troponin levels were negative. Patient's lipase was within normal limits. Her TSH was within normal limits. Patient's urinalysis indicates she has urinary tract infection. Her UDS is negative. Diagnosis: Urinary tract infection, atypical chest pain, adverse reaction to meds Risks: HEART score: low risk HEART Score for Major Cardiac Events from [employer] on 01/03/2025 All calculations should be rechecked by clinician prior to use RESULT SUMMARY: 3 points Low Score (0-3 points) Risk of MACE of 0.9-1.7%. INPUTS: History ?> 1 = Moderately suspicious EKG ?> 0 = Normal Age ?> 0 = <45 Risk factors ?> 2 = >= risk factors or history of atherosclerotic disease Initial troponin ?> 0 = <Normal limit Patient Education/Shared MDM: Results of lab work and imaging shared with patient. She endorses improvement of symptoms following Tylenol medication administration. Patient strongly advised to maintain hydration status upon discharge and follow-up with her PCP as soon as possible. She was given extensive education about the importance of restarting her medications slowly and not taking them all at 1 time. She will be discharged home with a prescription for Macrobid. Strict return precautions provided. Patient verbalized understanding and is in agreement with plan. Vital signs stable at time of discharge. All questions answered. Differential Diagnosis Differential diagnosis: Likely atypical chest pain, st elevation myocardial infarction and other (Urinary tract infection, thyroid abnormality, congestive heart failure, PE) Lab Data Attestation: I reviewed the patient's lab results. 01/03/25 16:23 01/03/25 16:23 Labs: Lab Results 01/03/25 01/03/25 01/03/25 Range/Units 16:21 16:23 19:20 WBC 9.2 (4.5-10.0) K/mm3 RBC 5.47 H (4.2-5.4) M/mm3 Hgb 13.7 (12.0-15.0) g/dL Hct 42.7 (37.0-47.0) % MCV 78.1 L (80-100) fl MCH 25.0 L (26-34) pg MCHC 32.1 (32-36) g/dl RDW 13.6 (11.5-14.5) % Plt Count 357 (150-375) k/mm3 MPV 8.9 (7.4-10.4) fl Immature Gran % (Auto) 0.2 (0-0.5) % Neut % (Auto) 64.1 (45.5-73.1) % Lymph % (Auto) 28.2 (18.3-44.2) % Larue % (Auto) 5.9 (2.6-8.5) % Eos % (Auto) 1.1 (0-4.4) % Baso % (Auto) 0.5 (0.2-1.2) % Lymph # (Auto) 2.60 (0.9-3.2) K/mm3 Larue # (Auto) 0.5 (0.1-0.6) K/mm3 Eos # (Auto) 0.1 (0-0.3) K/mm3 Baso # (Auto) 0.1 (0.0-0.1) K/mm3 Abs Immat Gran (auto) 0.02 (0.00-0.031) K/mm3 Absolute Neuts (auto) 5.9 (1.3-6.7) K/mm3 Absolute Nucleated RBC 0.000 (0.0-0.012) K/mm3 Nucleated RBC % 0.0 (0.0-0.2) % PT 13.7 (11.1-14.7) Seconds INR 1.1 APTT 26.2 (22.3-36.8) Seconds D-Dimer < 0.27 (<0.48) ug/mL Sodium 137 (137-145) mmol/L Potassium 3.7 (3.4-5.0) mmol/L Chloride 102 (98-107) mmol/L Carbon Dioxide 23 (22-30) mmol/L Anion Gap 12 (4-12) mmol/L BUN 10 (7-17) mg/dL Creatinine 0.70 (0.7-1.0) mg/dL Estim Creat Clear Calc 134 ml/min Estimated GFR > 60 (59 - ) Glucose 104 (65-110) mg/dL Calcium 9.8 (8.4-10.2) mg/dL Total Bilirubin 0.9 (0.2-1.3) mg/dL AST 26 (14-36) U/L ALT 30 (6-35) U/L Alkaline Phosphatase 79 (38-126) U/L Troponin I < 0.012 (0.000-0.034) ng/mL NT-Pro-B Natriuret Pep < 20 (19.9-100) pg/mL Total Protein 9.1 H (6.3-8.2) g/dL Albumin 5.1 (3.5-5.1) g/dL Lipase 143 (23-300) U/L TSH (Reflex) 1.050 (0.465-4.68) uIU/mL Urine Color (Yellow) Urine Appearance (Clear) Urine pH (5.0-9.0) Ur Specific [place] (1.001-1.035) Urine Protein (Negative) mg/dL Urine Glucose (UA) (Negative) mg/dL Urine Ketones (Negative) mg/dL Ur Blood (Man) (Negative) Urine Nitrate (Negative) Urine Bilirubin (Negative) Urine Urobilinogen (<2.0) mg/dL Add Ur Microanalysis Leukocyte Esterase Rfl (Negative) HOMERO/UL Urine RBC (0-2) /hpf Urine WBC (0-3) /hpf Ur Squamous Epith Cells (Few) /hpf Urine Bacteria /hpf Urine Casts POC Urine HCG, Qual Negative (Negative) Urine Opiates Screen (Negative) Urine Methadone Screen (Negative) Ur Barbiturates Screen (Negative) Ur Phencyclidine Scrn (Negative) Ur Amphetamine Screen (Negative) U Benzodiazepines Scrn (Negative) Urine Cocaine Screen (Negative) U Cannabinoids Screen (Negative) 01/03/25 Range/Units 19:22 WBC (4.5-10.0) K/mm3 RBC (4.2-5.4) M/mm3 Hgb (12.0-15.0) g/dL Hct (37.0-47.0) % MCV (80-100) fl MCH (26-34) pg MCHC (32-36) g/dl RDW (11.5-14.5) % Plt Count (150-375) k/mm3 MPV (7.4-10.4) fl Immature Gran % (Auto) (0-0.5) % Neut % (Auto) (45.5-73.1) % Lymph % (Auto) (18.3-44.2) % Larue % (Auto) (2.6-8.5) % Eos % (Auto) (0-4.4) % Baso % (Auto) (0.2-1.2) % Lymph # (Auto) (0.9-3.2) K/mm3 Larue # (Auto) (0.1-0.6) K/mm3 Eos # (Auto) (0-0.3) K/mm3 Baso # (Auto) (0.0-0.1) K/mm3 Abs Immat Gran (auto) (0.00-0.031) K/mm3 Absolute Neuts (auto) (1.3-6.7) K/mm3 Absolute Nucleated RBC (0.0-0.012) K/mm3 Nucleated RBC % (0.0-0.2) % PT (11.1-14.7) Seconds INR APTT (22.3-36.8) Seconds D-Dimer (<0.48) ug/mL Sodium (137-145) mmol/L Potassium (3.4-5.0) mmol/L Chloride (98-107) mmol/L Carbon Dioxide (22-30) mmol/L Anion Gap (4-12) mmol/L BUN (7-17) mg/dL Creatinine (0.7-1.0) mg/dL Estim Creat Clear Calc ml/min Estimated GFR (59 - ) Glucose (65-110) mg/dL Calcium (8.4-10.2) mg/dL Total Bilirubin (0.2-1.3) mg/dL AST (14-36) U/L ALT (6-35) U/L Alkaline Phosphatase (38-126) U/L Troponin I < 0.012 (0.000-0.034) ng/mL NT-Pro-B Natriuret Pep (19.9-100) pg/mL Total Protein (6.3-8.2) g/dL Albumin (3.5-5.1) g/dL Lipase (23-300) U/L TSH (Reflex) (0.465-4.68) uIU/mL Urine Color Yellow (Yellow) Urine Appearance Cloudy H (Clear) Urine pH 8.0 (5.0-9.0) Ur Specific [place] 1.013 (1.001-1.035) Urine Protein Trace (Negative) mg/dL Urine Glucose (UA) Negative (Negative) mg/dL Urine Ketones Negative (Negative) mg/dL Ur Blood (Man) 3+ H (Negative) Urine Nitrate Negative (Negative) Urine Bilirubin Negative (Negative) Urine Urobilinogen 0.2 (<2.0) mg/dL Add Ur Microanalysis Reviewed Leukocyte Esterase Rfl Negative (Negative) HOMERO/UL Urine RBC 11-20 H (0-2) /hpf Urine WBC 11-20 H (0-3) /hpf Ur Squamous Epith Cells Moderate (Few) /hpf Urine Bacteria Rare /hpf Urine Casts 0-2 POC Urine HCG, Qual (Negative) Urine Opiates Screen Negative (Negative) Urine Methadone Screen Negative (Negative) Ur Barbiturates Screen Negative (Negative) Ur Phencyclidine Scrn Negative (Negative) Ur Amphetamine Screen Negative (Negative) U Benzodiazepines Scrn Negative (Negative) Urine Cocaine Screen Negative (Negative) U Cannabinoids Screen Negative (Negative) Imaging Data Attestation: I personally reviewed and interpreted this imaging study as follows: Radiologist's impression: Impressions Chest X-Ray 01/03/25 16:48 Impression: No acute cardiopulmonary abnormality. Discharge Plan Discharge Clinical Impression: Atypical chest pain, Anxiety, Morbid obesity, Urinary tract infection Hypertension Qualifiers: Hypertension type: primary hypertension Qualified Code(s): I10 - Essential (primary) hypertension Patient Disposition: Home Condition: Stable Instructions: Antibiotic Form, Urinary Tract Infection in Women (ED) Additional Instructions: Please return to the ER with any worsening symptoms. Follow-up with primary care provider as soon as possible. Take all medications as prescribed, but restart them slowly. Please complete your full dose of antibiotics. Patient Language: Togolese Prescriptions: No Action spironolactone 25 mg tablet 25 mg PO DAILY losartan 100 mg tablet 100 mg PO DAILY amlodipine 10 mg tablet 10 mg PO DAILY metoprolol tartrate 50 mg tablet 50 mg PO BID furosemide 40 mg tablet 40 mg PO DAILY Iud Adults Multivitamin Nurtec ODT 75 mg tablet,disintegrating 75 mg PO ONCE PRN (Reason: migraine headache) Qty: 30 0RF duloxetine 30 mg capsule,delayed release(DR/EC) 30 mg PO DAILY Qty: 90 0RF lorazepam 0.5 mg tablet 0.5 mg PO BID PRN (Reason: anxiety) Qty: 30 1RF phentermine 37.5 mg capsule 37.5 mg PO DAILY Rx Instructions: must administer 30 minutes before or 1-2 hours after breakfast phentermine 37.5 mg capsule 37.5 mg PO DAILY Qty: 30 2RF Rx Instructions: must administer 30 minutes before or 1-2 hours after breakfast topiramate 25 mg tablet 25 mg PO DAILY Qty: 90 0RF Follow-up/Referrals: Nadira Sapp FNP-C [Primary Care Provider, Internal Medicine] Stand Alone Forms: Work/School Release IP Time of Disposition: 20:46
--- NOTE | 2025-01-03 18:34 | PC.NURSE ---
called lab to add on BNP and TSH reflex
[2025-01-03 18:49] VITALS: BP 177/94; PULSE 90; RESP 18; O2SAT 99
[2025-01-03 19:08] LABS: NT Pro B Type Natriuretic Pept < 20 pg/mL (19.9-100)
--- NOTE | 2025-01-03 19:18 | ECG_ITS ---
Test Date: 2025-01-03 19:25:15 Measurements Intervals [place] Rate: 83 P: 16 WI: 161 QRS: -1 QRSD: 108 T: 13 QT: 374 QTc: 441 Interpretive Statements SINUS RHYTHM MINIMAL Q WAVES- HIGH LATERAL LEADS BASELINE ARTIFACT- I, III, AVL, AVF BORDERLINE ECG Compared to ECG 01/03/2025 16:18:28 No significant changes Electronically Signed On 01-04-2025 06:53:04 CDT by Lyndon Vincent D.O.
[2025-01-03 19:22] LABS: BEDSIDEPREGUCG Negative (Negative)
[2025-01-03 19:28] LABS: Thyroid Stimulating Hormone Reflex 1.050 uIU/mL (0.465-4.68)
[2025-01-03 19:37] LABS: Add Urine Microscopic? YES; Appearance Urine Cloudy (Clear); Glucose Urine UA Negative (Negative); Leukocyte Esterase Ur Negative LEU/UL (Negative); Need Manual Microscopic Reviewed; Nitrate Urine Negative (Negative); Non Pathogenic Casts 0-2; Specific Grav Ur 1.013 (1.001-1.035)
[2025-01-03 19:49] LABS: Cannabinoid Screen Urine Negative (Negative)
[2025-01-03] MEDS: ACETAMINOPHEN 500 MG TABLET 1000 MG PO (19:56)
[2025-01-03 19:58] LABS: Troponin I < 0.012 ng/mL (0.000-0.034)
== END 2025-01-03 21:02 | disposition home or self-care (01) ==
PROVIDERS: Emergency Medicine; Emergency Provider Registered Nurse; PCP Clinical Nurse Specialist
DX: N39.0 Urinary tract infection, site not specified (principal); R07.89 Other chest pain; F41.9 Anxiety disorder, unspecified; E66.01 Morbid (severe) obesity due to excess calories; Z68.44 Body mass index [BMI] 60.0-69.9, adult; I10 Essential (primary) hypertension; J45.909 Unspecified asthma, uncomplicated; E78.00 Pure hypercholesterolemia, unspecified; K21.9 Gastro-esophageal reflux disease without esophagitis; Z86.2 Personal history of diseases of the blood and blood-forming organs and certain disorders involving the immune mechanism; R94.31 Abnormal electrocardiogram [ECG] [EKG]; Z77.22 Contact with and (suspected) exposure to environmental tobacco smoke (acute) (chronic)
CPT/HCPCS: 36415; 71046; 80053; 80307; 81001; 81025; 83690; 83880; 84443; 84484; 85025; 85380; 85610; 85730; 93005; 99284; A9270